=== PATIENT | male | born 1940 | race Caucasian/White ===

== ENCOUNTER → 2016-11-14 | Outpatient (CLI) | payer MEDICARE, BC | LOC: RAD 10:15 | PROVIDERS: ATTEND Internal Medicine Hematology & Oncology | DX: C16.0 Malignant neoplasm of cardia (principal); C79.89 Secondary malignant neoplasm of other specified sites; K76.9 Liver disease, unspecified; R91.8 Other nonspecific abnormal finding of lung field; K44.9 Diaphragmatic hernia without obstruction or gangrene; N42.9 Disorder of prostate, unspecified ==

== ENCOUNTER 2016-11-22 14:58 | Day surgery (SDC) | payer MEDICARE ==
[~2016-11-22] VITALS: Ht 167.6 cm; Wt 55.3 kg
[2016-11-22 15:05] VITALS: BP 141/87
[2016-11-22] MEDS ORDERED: ceFAZolin INJECTION 1,000 MG in NS (IVPB) 50 ML IV ONE (15:05)
--- OUTSIDE RECORDS SUMMARY | 2016-11-22 15:10 | XMS REPORT | Clinical Summary ---
Author Author Admin, QIE Organization [employer] Address Unknown Phone Unavailable Allergies, Adverse Reactions, Alerts Allergy Name Reaction Description Start Date Severity Status Provider MACROBID Rash, itching Critical Active Dona Becker MORPHINE Critical Active Zoran Arzola MD STATINS Critical Active Jam Arnold DO Conditions or Problems Problem Name Problem Code Onset Date Status Entry Date Provider Comment Standard Description Annotate NAUSEA AND VOMITING 787.01 Resolved Capo Poe MD Nausea with vomiting Depression 311 Active Capo Poe MD Depressive disorder, not elsewhere classified Hyperlipidemia 272.4 Active Capo Poe MD Other and unspecified hyperlipidemia CALCULUS OF KIDNEY 592.0 Resolved Capo Poe MD Calculus of kidney CALCULUS OF KIDNEY 592.0 Resolved Capo Poe MD Calculus of kidney URETERAL CALCULUS 592.1 Resolved Capo Poe MD Calculus of ureter FLANK PAIN 789.09 Resolved Capo Poe MD Abdominal pain, other specified site; multiple sites PROSTATE CA 185 Inactive Zoran Arzola MD Malignant neoplasm of prostate Prostate cancer, hx of V10.46 Active Capo Poe MD Personal history of malignant neoplasm of prostate PROSTATE CA 185 Resolved Capo Poe MD Malignant neoplasm of prostate RENAL CALCULUS 592.9 Resolved Capo Poe MD Urinary calculus, unspecified FLANK PAIN, RIGHT 789.09 Resolved Capo Poe MD Abdominal pain, other specified site; multiple sites FLANK PAIN, RIGHT 789.09 Resolved Capo Poe MD Abdominal pain, other specified site; multiple sites HYPERTENSION 401.1 Inactive Capo Poe MD Benign essential hypertension Hypertension 401.9 Active Capo Poe MD Unspecified essential hypertension HEALTH SCREENING V70.0 Resolved Faisal Nagy MD Routine general medical examination at a health care facility Health screening V70.0 Active Capo Poe MD Routine general medical examination at a health care facility SCIATICA 724.3 Resolved Capo Poe MD Sciatica BRONCHITIS, ACUTE 466.0 Resolved Capo Poe MD Acute bronchitis URINARY FREQUENCY 788.41 Resolved Capo Poe MD Urinary frequency COUGH 786.2 Resolved Capo Poe MD Cough ELEVATED P S A 790.93 Resolved Capo Poe MD Elevated prostate specific antigen [PSA] URINARY TRACT INFECTION 599.0 Resolved Capo Poe MD Urinary tract infection, site not specified Glucose intolerance 271.3 Active Capo Poe MD Intestinal disaccharidase deficiencies and disaccharide malabsorption DYSPNEA 786.09 Correction Capo Poe MD Other dyspnea and respiratory abnormality C O P D 496 Inactive Capo Poe MD Chronic airway obstruction, not elsewhere classified Chronic obstructive pulmonary disease 496 Active Capo Poe MD Chronic airway obstruction, not elsewhere classified ANEMIA 285.9 Inactive Felisa TEIXEIRA Anemia, unspecified Anemia, iron deficiency 280.9 Resolved Capo Poe MD Iron deficiency anemia, unspecified U T I-RECURRENT 599.0 Resolved Capo Poe MD Urinary tract infection, site not specified BLADDER CALCULUS 594.1 Resolved Capo Poe MD Other calculus in bladder HEMATURIA 599.70 Resolved Capo Poe MD Hematuria, unspecified BLADDER CALCULUS 594.1 Resolved Capo Poe MD Other calculus in bladder HEMATURIA 599.70 Resolved Capo Poe MD Hematuria, unspecified U T I-RECURRENT 599.0 Resolved Capo Poe MD Urinary tract infection, site not specified RASH AND OTHER NONSPECIFIC SKIN ERUPTION 782.1 Resolved Capo Poe MD Rash and other nonspecific skin eruption Near syncope 780.2 Resolved Capo Poe MD Syncope and collapse Carotid artery stenosis 433.10 Active Capo Poe MD Occlusion and stenosis of carotid artery, without mention of cerebral infarction Skin lesion 709.9 Resolved Capo Poe MD Unspecified disorder of skin and subcutaneous tissue Ecchymoses, spontaneous 782.7 Resolved Capo Poe MD Spontaneous ecchymoses Lumbar radiculopathy 724.4 Resolved Capo Poe MD Thoracic or lumbosacral neuritis or radiculitis, unspecified 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 Resolved Capo Poe MD Chondritis of pinna UTI 599.0 Resolved Capo Poe MD Urinary tract infection, site not specified Hematuria 599.70 Resolved Capo Poe MD Hematuria, unspecified Sciatica, right 724.3 Resolved Capo Poe MD Sciatica Renal Calculus 592.9 Resolved Capo Poe MD Urinary calculus, unspecified Constipation 564.00 Active Capo Poe MD Constipation, unspecified Smoker/tobacco use disorder-smoking cessation discussed 305.1 Active Capo Poe MD Tobacco use disorder Urethral calculus 594.2 Resolved Capo Poe MD Calculus in urethra Chest pain 786.50 Resolved Capo Poe MD Unspecified chest pain Prostate cancer screening V76.44 Resolved Capo Poe MD Screening for malignant neoplasms of prostate Pruritic rash 698.8 Resolved Capo Poe MD Other specified pruritic conditions Elevated creatinine 790.4 Resolved Capo Poe MD Nonspecific elevation of levels of transaminase or lactic acid dehydrogenase [LDH] Nephrolithiasis 592.0 Active Capo Poe MD Calculus of kidney Near syncope 780.2 Active Capo Poe MD Syncope and collapse Iron deficiency 280.9 Active Jasmin EDWARDA Iron deficiency anemia, unspecified COPD, acute exacerbation 491.21 Active Capo Poe MD Obstructive chronic bronchitis with (acute) exacerbation Dysphagia 787.20 Active Leanna Baker [employer]SEMBL[employer] Dysphagia, unspecified Mycoplasma infection 041.81 Active Simin Sweet LPN Mycoplasma infection in conditions classified elsewhere and of unspecified site NAUSEA AND VOMITING ICD-787.01 Inactive Capo Poe MD CALCULUS OF KIDNEY ICD-592.0 Inactive Capo Poe MD URETERAL CALCULUS ICD-592.1 Inactive Capo Poe MD FLANK PAIN ICD-789.09 Inactive Capo Poe MD 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 Inactive Capo Poe MD RENAL CALCULUS ICD-592.9 Inactive Capo Poe MD FLANK PAIN, RIGHT ICD-789.09 Inactive Capo Poe MD SCIATICA ICD-724.3 Inactive Capo Poe MD 2011 BRONCHITIS, ACUTE ICD-466.0 Inactive Capo Poe MD URINARY FREQUENCY ICD-788.41 Inactive Capo Poe MD COUGH ICD-786.2 Inactive Capo Poe MD ELEVATED P S A ICD-790.93 Inactive Capo Poe MD URINARY TRACT INFECTION ICD-599.0 Inactive Capo Poe MD Anemia, iron deficiency ICD-280.9 Inactive Capo Poe MD U T I-RECURRENT ICD-599.0 Inactive Capo Poe MD BLADDER CALCULUS ICD-594.1 Inactive Capo Poe MD HEMATURIA ICD-599.70 Inactive Capo Poe MD BLADDER CALCULUS ICD-594.1 Inactive Capo Poe MD HEMATURIA ICD-599.70 Inactive Capo Poe MD U T I-RECURRENT ICD-599.0 Inactive Capo Poe MD RASH AND OTHER NONSPECIFIC SKIN ERUPTION ICD-782.1 Inactive Capo Poe MD Near syncope ICD-780.2 Inactive Capo Poe MD Skin lesion ICD-709.9 Inactive Capo Poe MD Ecchymoses, spontaneous ICD-782.7 Inactive Capo Poe MD Lumbar radiculopathy ICD-724.4 Inactive 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 Inactive Capo Poe MD UTI ICD-599.0 Inactive Capo Poe MD Hematuria ICD-599.70 Clyde Poe MD Sciatica, right ICD-724.3 Clyde Poe MD Renal Calculus ICD-592.9 Clyde Poe MD Urethral calculus ICD-594.2 Clyde Poe MD Chest pain ICD-786.50 Clyde Poe MD Prostate cancer screening ICD-V76.44 Clyde Poe MD Pruritic rash ICD-698.8 Clyde Poe MD Elevated creatinine ICD-790.4 Clyde Poe MD Medication List Medication Instructions Start Date Stop Date Generic Name NDC Status Provider Patient Instruction LEVAQUIN 500 MG TABS 1 daily for infection LEVOFLOXACIN 11332249407 Active Leanna Baker APRN Active AZITHROMYCIN 250 MG ORAL TABS 2 po qd x 1, then 1 po qd x 4 AZITHROMYCIN 90287095898 Active Capo Poe MD Active PREDNISONE 20 MG ORAL TABS 2 po qd x 5 days PREDNISONE 34808204434 No Longer Active Capo Poe MD Active CARAFATE 1 GM ORAL TABS 1 tid SUCRALFATE 31580035038 Active Capo Poe MD Active RANITIDINE HCL 150 MG ORAL TABS 1 bid RANITIDINE HCL 83365529237 Active Capo Poe MD Active MULTIVITAMINS CAPS Take one by mouth daily MULTIPLE VITAMIN 63322815431 No Longer Active Capo Poe MD Active LISINOPRIL 10 MG TABS 1 tablet by mouth daily LISINOPRIL 41903572156 No Longer Active Capo Poe MD Active EQL IRON SUPPLEMENT THERAPY 325 MG ORAL TABS 1 tab po twice daily FERROUS SULFATE 50323772507 Active Jasmin Arboledalas RMA Active D ORAL TABS 2000 iu weekly D ORAL TABS Active Capo Poe MD Active CITALOPRAM HYDROBROMIDE 20 MG TABS 1 tablet by mouth daily CITALOPRAM HYDROBROMIDE 30205616289 Active Capo Poe MD Active CLARITIN 5 MG ORAL CHEW 1 tab po q day LORATADINE 79711400941 Active Felisa Daphney RMA Active VIIBRYD STARTER PACK 10 & 20 MG ORAL KIT 1 po qd as directed 2015 VILAZODONE HCL 99874512367 No Longer Active Felisa Daphney RMA Active HYDROXYZINE HCL 25 MG TAB 1 po qHS PRN Insomnia HYDROXYZINE HCL 19948470180 Active Capo Poe MD Active LORTAB 7.5-325 MG ORAL TABS 1 po q 6 hr prn pain HYDROCODONE- ACETAMINOPHEN 05793264797 No Longer Active Capo Poe MD Active FLOMAX 0.4 MG CAPS Take one by mouth daily TAMSULOSIN HCL 20673376548 No Longer Active Capo Poe MD Active TRIAMCINOLONE ACETONIDE 0.1 % CREA Apply to affected areas TID for up to 2 weeks TRIAMCINOLONE ACETONIDE 99698691362 Active Capo Poe MD Active NICOTINE 14 MG/24HR TRANS PT24 Apply/Change q 24hr NICOTINE 67850481371 No Longer Active Capo Poe MD Active TRAMADOL HCL 50 MG TABS 1-2 tablets every 6 hours as needed for pain TRAMADOL HCL 34919954896 No Longer Active Capo Poe MD Active SERTRALINE HCL 100 MG ORAL TABS take 1 tab daily SERTRALINE HCL 26453539607 No Longer Active Capo Poe MD Active LISINOPRIL-HYDROCHLOROTHIAZIDE 10-12.5 MG TABS 0.5 tab by mouth daily LISINOPRIL-HYDROCHLOROTHIAZIDE 57522028288 No Longer Active Capo Poe MD Active OMEPRAZOLE 20 MG CPDR 1 tablet by mouth daily OMEPRAZOLE 96072798119 Active Capo Poe MD Active WELLBUTRIN SR 150 MG ORAL [id number] 1 po BID BUPROPION HCL 79935842173 No Longer Active Capo Poe MD Active MIRALAX PACK 1 po qd PRN Constipation POLYETHYLENE GLYCOL 3350 83573228459 Active Capo Poe MD Active DULERA 100-5 MCG/ACT AERO 2 puffs BID MOMETASONE FURO- FORMOTEROL FUM 25185609245 Active Capo Poe MD Active ZOLOFT 100 MG TABS 1 po daily SERTRALINE HCL 42106527054 No Longer Active Zoran Arzola MD Active FERROUS SULFATE 325 (65 FE) MG TABS 1 tablet by mouth daily FERROUS SULFATE 77752239592 No Longer Active Capo Poe MD Active HYDROCODONE-ACETAMINOPHEN 7.5-300 MG TABS take one every six hours HYDROCODONE-ACETAMINOPHEN 83476592785 No Longer Active Capo Poe MD Active TRIAMCINOLONE ACETONIDE 0.1 % OINT Apply to affected areas TID for up to 2 weeks TRIAMCINOLONE ACETONIDE 51529056358 No Longer Active Joe Vargas RN Active FERROUS SULFATE 325 (65 FE) MG TABS Take one by mouth daily FERROUS SULFATE 15974268318 No Longer Active Capo Poe MD Active TRIAMCINOLONE ACETONIDE 0.1 % OINT Apply to affected areas TID for up to 2 weeks TRIAMCINOLONE ACETONIDE 82787113963 No Longer Active Capo Poe MD Active ADULT ASPIRIN LOW STRENGTH 81 MG TBDP qd ASPIRIN 51627356159 Active Zoran Arzola MD Active ALEVE 220 MG TAB prn NAPROXEN SODIUM 16914467092 Active Capo Poe MD Active MACROBID 100 MG CAP 1 cap by mouth twice daily NITROFURANTOIN MONOHYD MACRO 57495599502 No Longer Active Dona Becker Active AZITHROMYCIN 250 MG TABS 2 po qd x 1 day, then 1 po qd x 4 days AZITHROMYCIN 54244218233 No Longer Active Capo Poe MD Active FISH OIL 500 MG CAPS by mouth twice a day OMEGA-3 FATTY ACIDS 64711432133 Active Capo Poe MD Active FLAXSEED OIL 1000 MG CAPS Take two by mouth daily FLAXSEED (LINSEED) 42421276031 Active Zoran Arzola MD Active RED YEAST RICE 600 MG CAPS Take two by mouth daily RED YEAST RICE EXTRACT 51477623649 Active Zoran Arzola MD Active ICAPS MV TABS 2 po daily MULTIPLE VITAMINS-MINERALS 21760272634 Active Jam Arnold DO Active MACROBID 100 MG CAP 1 cap by mouth twice daily MACROBID 100 MG CAP 4953728 NITROFURANTOIN MONOHYD MACRO Inactive FERROUS SULFATE 325 (65 FE) MG TABS Take one by mouth daily FERROUS SULFATE 325 (65 FE) MG TABS 673327 FERROUS SULFATE Inactive HYDROCODONE-ACETAMINOPHEN 7.5-300 MG TABS take one every six hours HYDROCODONE-ACETAMINOPHEN 7.5-300 MG TABS 999710 HYDROCODONE- ACETAMINOPHEN Inactive FERROUS SULFATE 325 (65 FE) MG TABS 1 tablet by mouth daily FERROUS SULFATE 325 (65 FE) MG TABS 338655 FERROUS SULFATE Inactive ZOLOFT 100 MG TABS 1 po daily ZOLOFT 100 MG TABS 953274 SERTRALINE HCL Inactive SERTRALINE HCL 100 MG ORAL TABS take 1 tab daily SERTRALINE HCL 100 MG ORAL TABS 978247 SERTRALINE HCL Inactive TRAMADOL HCL 50 MG TABS 1-2 tablets every 6 hours as needed for pain TRAMADOL HCL 50 MG TABS 903528 TRAMADOL HCL Inactive NICOTINE 14 MG/24HR TRANS PT24 Apply/Change q 24hr NICOTINE 14 MG/24HR TRANS PT24 129945 NICOTINE Inactive FLOMAX 0.4 MG CAPS Take one by mouth daily FLOMAX 0.4 MG CAPS 296459 TAMSULOSIN HCL Inactive LORTAB 7.5-325 MG ORAL TABS 1 po q 6 hr prn pain LORTAB 7.5- 325 MG ORAL TABS 008086 HYDROCODONE-ACETAMINOPHEN Inactive VIIBRYD STARTER PACK 10 & 20 MG ORAL KIT 1 po qd as directed 2015 VIIBRYD STARTER PACK 10 & 20 MG ORAL KIT VILAZODONE HCL Inactive LISINOPRIL 10 MG TABS 1 tablet by mouth daily LISINOPRIL 10 MG TABS 360448 LISINOPRIL Inactive MULTIVITAMINS CAPS Take one by mouth daily MULTIVITAMINS CAPS MULTIPLE VITAMIN Inactive AZITHROMYCIN 250 MG TABS 2 po qd x 1 day, then 1 po qd x 4 days AZITHROMYCIN 250 MG TABS 3789040 AZITHROMYCIN Inactive TRIAMCINOLONE ACETONIDE 0.1 % OINT Apply to affected areas TID for up to 2 weeks TRIAMCINOLONE ACETONIDE 0.1 % OINT 1082960 TRIAMCINOLONE ACETONIDE Inactive TRIAMCINOLONE ACETONIDE 0.1 % OINT Apply to affected areas TID for up to 2 weeks TRIAMCINOLONE ACETONIDE 0.1 % OINT 4005567 TRIAMCINOLONE ACETONIDE Inactive PREDNISONE 20 MG ORAL TABS 2 po qd x 5 days PREDNISONE 20 MG ORAL TABS 737696 PREDNISONE Inactive Advance Directives Directive Description Start Date PERMISSION TO SHARE DISCUSSED WITH PATIENT -- NO DECISION MADE Immunizations Vaccine Administration Date Value Standard Description pneumococcal immunization administered Pneumovax 23 [CVX33] pneumococcal polysaccharide vaccine, 23 valent Vital Signs Date Name Value Unit Range Description blood pressure, diastolic 78 mm[Hg] BP [place] blood pressure, systolic 143 mm[Hg] BP sys pulse rate E&M 85 /min Heart rate temperature E&M 99.2 [degF] Body temperature weight E&M 139 [lb_av] Weight Measured blood pressure, diastolic 76 mm[Hg] BP [place] blood pressure, systolic 140 mm[Hg] BP sys height E&M 65 [in_us] Bdy height pulse rate E&M 83 /min Heart rate temperature E&M 97.8 [degF] Body temperature weight E&M 141.1 [lb_av] Weight Measured blood pressure, diastolic 85 mm[Hg] BP [place] blood pressure, systolic 152 mm[Hg] BP sys pulse rate E&M 64 /min Heart rate temperature E&M 97.7 [degF] Body temperature weight E&M 146.1 [lb_av] Weight Measured blood pressure, diastolic 54 mm[Hg] BP [place] blood pressure, systolic 134 mm[Hg] BP sys pulse rate E&M 71 /min Heart rate temperature E&M 97.4 [degF] Body temperature weight E&M 144.5 [lb_av] Weight Measured Diagnostic Results Date Name Value Unit Range Description Chart Maintenance: Hemoccult added to flow sheet - Chemistry occult blood, stool (E&M) Positive Lab Report: CBC W/DIFF, Comp. Metabolic Panel - Chemistry sodium, serum 137 mmol/L 591-331 2911/07/26 carbon dioxide, venous blood 27.3 mmol/L 21.0-32.0 potassium, serum 4.6 mmol/L 3.5-5.2 chloride, serum 101 mmol/L 98-107 blood glucose 95 mg/dL 65-110 urea nitrogen, blood 19 mg/dL 7-18 creatinine, serum 1.31 mg/dL 0.60-1.30 alanine aminotransferase (SGPT), serum 20 U/L 12-78 aspartate aminotransferase (SGOT), serum 20 U/L 15-37 calcium, serum 8.8 mg/dL 8.5-10.1 bilirubin, serum, total 0.70 mg/dL 0.00-1.00 Lab Report: CBC W/DIFF, Comp. Metabolic Panel - Hematology leukocyte count, blood 10.7 10^3/MM^3 10*3/mm3 4.6-10.2 neutrophils as percent of blood leukocytes 82.6 % 42.2-75.2 monocytes as percent of blood leukocytes 7.3 % 1.7-9.3 lymphocytes as percent of blood leukocytes 8.1 % 20.5-51.1 erythrocyte (RBC) count 4.64 10^6/MM^3 10*6/mm3 4.50-6.50 hemoglobin, blood 13.8 g/dL 14.0-18.0 hematocrit, blood 41.8 % 40.0-54.0 mean corpuscular volume, RBC 90 fL 80-97 mean corpuscular hemoglobin, RBC 29.7 pg 27.0-31.2 mean corpuscular hemoglobin concentration, RBC 32.9 G/DL % 31.8- 35.4 red blood cell distribution width 13.5 % 11.6-14.8 platelet count 250 10^3/MM^3 10*3/mm3 142-424 Lab Report: CBC W/DIFF, Comp. Metabolic Panel, Thyroid Stimulating Hormo ... - Chemistry sodium, serum 141 mmol/L 484-864 6738/01/27 carbon dioxide, venous blood 29.7 mmol/L 21.0-32.0 potassium, serum 4.2 mmol/L 3.5-5.2 chloride, serum 105 mmol/L 98-107 blood glucose 83 mg/dL 65-110 urea nitrogen, blood 17 mg/dL 7-18 creatinine, serum 1.39 mg/dL 0.55-1.30 alanine aminotransferase (SGPT), serum 19 U/L 12-78 aspartate aminotransferase (SGOT), serum 21 U/L 15-37 calcium, serum 8.2 mg/dL 8.5-10.1 bilirubin, serum, total 0.40 mg/dL 0.00-1.00 TSH 0.93 m[iU]/mL 0.36-3.74 prostate specific antigen 0.85 ng/mL 0.00-4.00 Lab Report: CBC W/DIFF, Comp. Metabolic Panel, Thyroid Stimulating Hormo ... - Hematology leukocyte count, blood 6.8 10^3/MM^3 10*3/mm3 4.0-10.0 neutrophils as percent of blood leukocytes 70.9 % 42.2-75.2 monocytes as percent of blood leukocytes 7.6 % 1.7-9.3 lymphocytes as percent of blood leukocytes 18.9 % 20.5-51.1 erythrocyte (RBC) count 4.28 10^6/MM^3 10*6/mm3 4.50-6.50 hemoglobin, blood 10.8 g/dL 13.0-17.0 hematocrit, blood 33.9 % 40.0-54.0 mean corpuscular volume, RBC 79 fL 80-100 mean corpuscular hemoglobin, RBC 25.3 pg 27.0-32.0 mean corpuscular hemoglobin concentration, RBC 31.9 G/DL % 32.0- 36.0 red blood cell distribution width 14.6 % 11.0-16.0 platelet count 286 10^3/MM^3 10*3/mm3 150-500 Lab Report: CBC-QUEST, COMPREHENSIVE METABOLIC PANEL - Hematology leukocyte count, blood 7.3 THOUSAND/UL 10*3/mm3 3.8-10.8 erythrocyte (RBC) count 4.69 MILLION/UL 10*6/mm3 4.20-5.80 hemoglobin, blood 12.6 g/dL 13.2-17.1 hematocrit, blood 39.0 % 38.5-50.0 mean corpuscular volume, RBC 83.2 fL 80.0-100.0 mean corpuscular hemoglobin, RBC 26.9 pg 27.0-33.0 mean corpuscular hemoglobin concentration, RBC 32.3 G/DL % 32.0- 36.0 red blood cell distribution width 22.9 % 11.0-15.0 platelet count 214 THOUSAND/UL 10*3/mm3 979-880 2525/03/31 mean platelet volume 8.4 fL 7.5-12.5 Encounters Code Encounter Date Provider Facility CPT-70457 Level 3 Est. Patient 11:31:49 CDT Leanna Baker APRN [facility] CPT-49003 Level 3 Est. Patient 09:44:06 CDT Capo Poe MD [facility] CPT-76721 Level 4 Est. Patient 09:26:11 NURSERY HELPER Capo Poe MD [facility] CPT-93914 Level 4 Est. Patient 08:53:08 CDT Capo Poe MD [facility] CPT-11853 Level 4 Est. Patient 10:22:57 CDT Capo Poe MD [facility] CPT-36306 Level 4 Est. Patient 13:44:30 CDT Capo Poe MD [facility] CPT-72059 Level 3 Est. Patient 14:59:32 NURSERY HELPER Capo Poe MD [facility] CPT-72478 Level 4 Est. Patient 10:46:15 NURSERY HELPER Capo Poe MD [facility] CPT-24146 Level 3 Est. Patient 11:00:53 CDT Capo Poe MD [facility] CPT-76424 Level 3 Est. Patient 09:39:35 CDT Capo Poe MD [facility] CPT-92085 Level 3 Est. Patient 09:27:01 CDT Capo Poe MD [facility] CPT-59562 Level 3 Est. Patient 18:37:08 CDT Zoran Arzola MD [facility] CPT-58046 Level 3 Est. Patient 15:00:28 CDT Capo Poe MD [facility] CPT-43750 Level 3 Est. Patient 08:20:19 CDT Zoran Arzola MD [facility] CPT-38337 Level 3 Est. Patient 09:22:21 CDT Capo Poe MD [facility] CPT-85045 Level 4 Est. Patient 10:21:30 NURSERY HELPER Capo Poe MD [facility] CPT-77841 Level 3 Est. Patient 17:08:51 NURSERY HELPER Zoran Arzola MD [facility] CPT-30933 Level 4 Est. Patient 09:44:42 CDT Capo Poe MD [facility] CPT-47180 Level 4 Est. Patient 10:39:29 CDT Capo Poe MD [facility] CPT-60885 Level 3 Est. Patient 17:45:23 CDT Zoran Arzola MD [facility] CPT-26266 Level 4 Est. Patient 08:50:44 CDT Capo Poe MD [facility] CPT-98800 Level 3 Est. Patient 10:39:51 NURSERY HELPER Capo Poe MD [facility] CPT-31907 Level 4 Est. Patient 09:44:24 NURSERY HELPER Capo Poe MD [facility] CPT-37356 Level 3 Est. Patient 14:48:42 NURSERY HELPER Zoran Arzola MD [facility] CPT-44870 Level 4 Est. Patient 10:24:02 CDT Capo Poe MD [facility] CPT-36722 Level 3 Est. Patient 15:42:00 CDT Maya WRIGHTP [facility] CPT-38722 Level 4 Est. Patient 13:34:15 CDT Capo Poe MD [facility] CPT-28621 Level 3 Est. Patient 15:32:10 NURSERY HELPER Zoran Arzola MD [facility] CPT-16780 Level 3 New Patient 17:17:19 NURSERY HELPER Zoran Arzola MD [facility] CPT-20374 Level 4 Est. Patient 10:25:01 NURSERY HELPER Capo Poe MD [facility] CPT-07119 Level 3 Est. Patient 10:10:42 CDT Zoran Arzola MD [facility] CPT-08617 Level 3 Est. Patient 22:30:02 CDT Zoran Arzola MD [facility] CPT-44280 Level 4 Est. Patient 09:54:20 CDT Capo Poe MD [facility] CPT-90292 Level 3 Est. Patient 10:48:30 CDT Capo Poe MD [facility] CPT-17834 Level 3 Est. Patient 11:24:45 CDT Capo Poe MD [facility] CPT-71419 Level 3 Est. Patient 15:23:48 NURSERY HELPER Capo Poe MD [facility] CPT-69453 Level 3 Est. Patient 15:10:03 NURSERY HELPER Capo Poe MD [facility] CPT-76322 Level 3 Est. Patient 16:18:40 CDT Zoran Arzola MD [facility] Procedures Code Procedure Name Date Entry Date Standard Description CPT-82243 Chest 2V Frontal and Lat - XRAY USE ONLY 11:51:24 CDT CPT-49518 Venipuncture Draw Fee 11:31:49 CDT CPT-93032 Hemoccult IFOBT - LAB USE ONLY 14:11:43 NURSERY HELPER CPT-31107 TPSA - LAB USE ONLY 10:37:52 NURSERY HELPER CPT-34920 TSH - LAB USE ONLY 10:37:51 NURSERY HELPER CPT-34062 CMP - LAB USE ONLY 10:37:51 NURSERY HELPER CPT-98650 CBC with Diff - LAB USE ONLY 10:37:51 NURSERY HELPER CPT-46528 Venipuncture Draw Fee 10:37:51 NURSERY HELPER CPT-000 Give Pneumovax 10:39:30 CDT CPT-25828 Venipuncture Draw Fee 09:32:34 CDT CPT-G0438 Initial Annual Wellness Exam 10:24:35 CDT CPT-06437 Venipuncture Draw Fee 09:46:29 CDT CPT-67254 Venipuncture Draw Fee 14:30:06 CDT CPT-75228 Venipuncture Draw Fee 10:58:22 CDT CPT-54722 Abd single AP View 08:32:00 CDT CPT-34267 Postop F/U Visit 21:13:08 CDT CPT-35583 Abd single AP View 15:50:24 CDT CPT-28550 Cystoscopy W/rem FB 15:21:28 CDT CPT-13997 Abd single AP View 14:06:45 CDT CPT-10904 Postop F/U Visit 09:48:32 CDT CPT-80520 Abd single AP View 13:58:26 CDT CPT-19753 Hip comp min 2V 10:27:18 NURSERY HELPER CPT-38384 Urine Dip (Floor Use Only) 13:41:01 NURSERY HELPER CPT-47863 Postop F/U Visit 11:17:48 CDT CPT-LR Lesion Removal 11:50:22 CDT CPT-OV Office Visit 11:50:22 CDT CPT-23886 Pneumovax 23 10:55:48 CDT CPT-98551 Administration single or combination vaccine inc oral 10 :55:48 CDT CPT-Cryo Cryotherapy 11:18:11 CDT CPT-OV Office Visit 11:18:11 CDT CPT-95295 LS spine AP and Lat 09:05:22 CDT CPT-75100 Bladder Scan 15:42:00 CDT CPT-90184 Cystoscopy 15:42:00 CDT CPT-OV Office Visit 16:37:19 NURSERY HELPER CPT-13736 Bladder Scan 15:32:10 NURSERY HELPER CPT-69187 Cystoscopy 15:32:10 NURSERY HELPER CPT-50406 Abd single AP View 14:05:59 NURSERY HELPER CPT-33155 Pill cam small bowel 09:48:39 NURSERY HELPER CPT-14534 Urine Dip (Floor Use Only) 17:17:19 NURSERY HELPER CPT-20926 Bladder Scan 17:17:19 NURSERY HELPER CPT-OV Office Visit 11:50:26 NURSERY HELPER CPT-31725 Bladder Scan 10:10:42 CDT CPT-67303 Venipuncture Draw Fee 09:14:04 CDT CPT-69443 Chest 2V Frontal and Lat 10:10:49 CDT CPT-11330 LS spine comp w obliq 11:50:11 CDT CPT-32647 Venipuncture Draw Fee 08:52:57 NURSERY HELPER CPT-80912 Cystoscopy W/rem FB 18:37:28 CDT CPT-58333 Abd single AP View 16:18:40 CDT CPT-63318 Abd compl w upright 17:30:59 CDT
--- OUTSIDE RECORDS SUMMARY | 2016-11-22 15:11 | XMS REPORT | Clinical Summary ---
Author Author Admin, MARGE Organization [facility] Address Unknown Phone Unavailable Allergies, Adverse Reactions, [...] Resolved Capo Poe MD Nausea with vomiting DEPRESSION 311 Active Zoran Arzola MD Depressive disorder, not elsewhere classified HYPERLIPIDEMIA 272.4 Active Zoran Arzola MD Other and unspecified hyperlipidemia CALCULUS OF KIDNEY 592.0 Resolved Capo Poe MD Calculus of kidney CALCULUS OF KIDNEY 592.0 Resolved Capo Poe MD Calculus of kidney URETERAL CALCULUS 592.1 Resolved Capo Poe MD Calculus of ureter FLANK PAIN 789.09 Resolved Capo Poe MD Abdominal pain, other specified site; multiple sites PROSTATE CA 185 Active Zoran Arzola MD Malignant neoplasm of prostate PROSTATE CA 185 Resolved Capo Poe MD Malignant neoplasm of prostate RENAL CALCULUS 592.9 Resolved Capo Poe MD Urinary calculus, unspecified FLANK PAIN, RIGHT 789.09 Resolved Capo Poe MD Abdominal pain, other specified site; multiple sites HYPERTENSION 401.1 Active Capo Poe MD Benign essential hypertension HEALTH SCREENING V70.0 Resolved Faisal Nagy MD Routine general medical examination at a health care facility HEALTH SCREENING V70.0 Active Capo Poe MD Routine general [...] MD Urinary tract infection, site not specified 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 DYSPNEA 786.09 Correction Capo Poe MD Other dyspnea and respiratory abnormality C O P D 496 Active Capo Poe MD Chronic airway obstruction, not elsewhere classified ANEMIA 285.9 Active Felisa TEIXEIRA Anemia, unspecified U T I-RECURRENT 599.0 Resolved Capo [...] tract infection, site not specified Hematuria 599.70 Active Zoran Arzola MD Hematuria, unspecified Sciatica, right 724.3 Active Capo Poe MD Sciatica Renal Calculus 592.9 Active Zoran Arzola MD Urinary calculus, unspecified CALCULUS OF KIDNEY ICD-592.0 Inactive Capo Poe MD URETERAL CALCULUS ICD-592.1 Inactive Capo Poe MD FLANK PAIN ICD-789.09 Inactive Capo Poe MD 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 Inactive Capo Poe MD RENAL CALCULUS ICD-592.9 Inactive Capo Poe MD FLANK PAIN, RIGHT ICD-789.09 Inactive Capo Poe MD SCIATICA ICD-724.3 Clyde Poe MD 2011 NAUSEA AND VOMITING ICD-787.01 Inactive Capo Poe MD COUGH ICD-786.2 Inactive Capo Poe MD ELEVATED P S A ICD-790.93 Inactive Capo Poe MD URINARY TRACT INFECTION ICD-599.0 Inactive Capo Poe MD U T I-RECURRENT ICD-599.0 Inactive Capo Poe MD BLADDER CALCULUS ICD-594.1 Inactive Capo Poe MD HEMATURIA ICD-599.70 Inactive Capo Poe MD BRONCHITIS, ACUTE ICD-466.0 Inactive Capo Poe MD URINARY FREQUENCY ICD-788.41 Inactive Capo Poe MD U T I-RECURRENT ICD-599.0 Clyde Poe MD RASH AND OTHER NONSPECIFIC SKIN ERUPTION ICD-782.1 Inactive Capo Poe MD BLADDER CALCULUS ICD-594.1 Clyde Poe MD Skin lesion ICD-709.9 Inactive Capo Poe MD Ecchymoses, spontaneous ICD-782.7 Clyde Poe MD Lumbar radiculopathy ICD-724.4 Inactive 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 Clyde Poe MD UTI ICD-599.0 Inactive Capo Poe MD HEMATURIA ICD-599.70 Inactive Capo Poe MD Near syncope ICD-780.2 Inactive Capo Poe MD Medication List Medication Instructions Start Date Stop Date Generic Name NDC Status Provider Patient Instruction DULERA 100-5 MCG/ACT AERO 2 puffs BID MOMETASONE FURO- FORMOTEROL FUM [id number] Active Capo Poe MD Active SERTRALINE HCL 100 MG ORAL TABS take 1 tab daily SERTRALINE HCL 81150404794 Active Capo Poe MD Active ZOLOFT 100 MG TABS 1 po daily SERTRALINE HCL 93449120208 No Longer Active Zoran Arzola MD Active FERROUS SULFATE 325 (65 FE) MG TABS 1 tablet by mouth daily FERROUS SULFATE 33744743007 No Longer Active Capo Poe MD Active TRAMADOL HCL 50 MG TABS 1-2 tablets every 6 hours as needed for pain TRAMADOL HCL 39689869474 Active Capo Poe MD Active HYDROCODONE-ACETAMINOPHEN 7.5-300 MG TABS take one every six hours HYDROCODONE-ACETAMINOPHEN 22591257848 No Longer Active Capo Poe MD Active TRIAMCINOLONE ACETONIDE 0.1 % OINT Apply to affected areas TID for up to 2 weeks TRIAMCINOLONE ACETONIDE 34062731650 No Longer Active Joe Vargas RN Active FERROUS SULFATE 325 (65 FE) MG TABS Take one by mouth daily FERROUS SULFATE 22241769165 No Longer Active Capo Poe MD Active TRIAMCINOLONE ACETONIDE 0.1 % OINT Apply to affected areas TID for up to 2 weeks TRIAMCINOLONE ACETONIDE 37523489873 No Longer Active Capo Poe MD Active ADULT ASPIRIN LOW STRENGTH 81 MG TBDP qd ASPIRIN 56270426768 Active Zoran Arzola MD Active ALEVE 220 MG TAB prn NAPROXEN SODIUM 49983614952 Active Capo Poe MD Active LISINOPRIL-HYDROCHLOROTHIAZIDE 10-12.5 MG TABS 1 tab by mouth daily LISINOPRIL-HYDROCHLOROTHIAZIDE 84263201871 Active Capo Poe MD Active MACROBID 100 MG CAP 1 cap by mouth twice daily NITROFURANTOIN MONOHYD MACRO 96316870092 No Longer Active Dona Becker Active AZITHROMYCIN 250 MG TABS 2 po qd x 1 day, then 1 po qd x 4 days AZITHROMYCIN 21065874779 No Longer Active Capo Poe MD Active FISH OIL 500 MG CAPS by mouth twice a day OMEGA-3 FATTY ACIDS 85091326478 Active Capo Poe MD Active FLAXSEED OIL 1000 MG CAPS Take two by mouth daily FLAXSEED (LINSEED) 49880360260 Active Zoran Arzola MD Active RED YEAST RICE 600 MG CAPS Take two by mouth daily RED YEAST RICE EXTRACT 86073129169 Active Zoran Arzola MD Active MULTIVITAMINS CAPS Take one by mouth daily MULTIPLE VITAMIN 53128838854 Active Zoran Arzola MD Active ICAPS MV TABS 2 po daily MULTIPLE VITAMINS-MINERALS 31562732949 Active Jam Arnold DO Active MACROBID 100 MG CAP 1 cap by mouth twice daily MACROBID 100 MG CAP 030065 NITROFURANTOIN MONOHYD MACRO Inactive FERROUS SULFATE 325 (65 FE) MG TABS Take one by mouth daily FERROUS SULFATE 325 (65 FE) MG TABS 918869 FERROUS SULFATE Inactive HYDROCODONE-ACETAMINOPHEN 7.5-300 MG TABS take one every six hours HYDROCODONE-ACETAMINOPHEN 7.5-300 MG TABS 783811 HYDROCODONE- ACETAMINOPHEN Inactive FERROUS SULFATE 325 (65 FE) MG TABS 1 tablet by mouth daily FERROUS SULFATE 325 (65 FE) MG TABS 558023 FERROUS SULFATE Inactive ZOLOFT 100 MG TABS 1 po daily ZOLOFT 100 MG TABS 037066 SERTRALINE HCL Inactive AZITHROMYCIN 250 MG TABS 2 po qd x 1 day, then 1 po qd x 4 days AZITHROMYCIN 250 MG TABS 1219178 AZITHROMYCIN Inactive TRIAMCINOLONE ACETONIDE 0.1 % OINT Apply to affected areas TID for up to 2 weeks TRIAMCINOLONE ACETONIDE 0.1 % OINT 0192759 TRIAMCINOLONE ACETONIDE Inactive TRIAMCINOLONE ACETONIDE 0.1 % OINT Apply to affected areas TID for up to 2 weeks TRIAMCINOLONE ACETONIDE 0.1 % OINT 9116507 TRIAMCINOLONE ACETONIDE Inactive Advance Directives Directive Description Start Date PERMISSION TO SHARE Immunizations Vaccine Administration Date Value Standard Description pneumococcal immunization administered Pneumovax 23 [CVX33] pneumococcal polysaccharide vaccine, 23 valent Vital Signs Date Name Value Unit Range Description blood pressure, diastolic - 8462-4 70 mm[Hg] BP [place] blood pressure, systolic - 8480-6 100 mm[Hg] BP sys pulse rate E&M - 8867-4 80 /min Heart rate temperature E&M 98.0 [degF] Body temperature weight E&M - 3141-9 151 [lb_av] Weight Measured blood pressure, diastolic - 8462-4 70 mm[Hg] BP [place] blood pressure, systolic - 8480-6 130 mm[Hg] BP sys pulse rate E&M - 8867-4 60 /min Heart rate temperature E&M 98.0 [degF] Body temperature weight E&M - 3141-9 151 [lb_av] Weight Measured blood pressure, diastolic - 8462-4 64 mm[Hg] BP [place] blood pressure, systolic - 8480-6 104 mm[Hg] BP sys pulse rate E&M - 8867-4 88 /min Heart rate temperature E&M 98.2 [degF] Body temperature weight E&M - 3141-9 151 [lb_av] Weight Measured blood pressure, diastolic - 8462-4 73 mm[Hg] BP [place] blood pressure, systolic - 8480-6 132 mm[Hg] BP sys pulse rate E&M - 8867-4 66 /min Heart rate temperature E&M 97.2 [degF] Body temperature weight E&M - 3141-9 151.7 [lb_av] Weight Measured blood pressure, diastolic - 8462-4 85 mm[Hg] BP [place] blood pressure, systolic - 8480-6 147 mm[Hg] BP sys pulse rate E&M - 8867-4 88 /min Heart rate temperature E&M 96.6 [degF] Body temperature weight E&M - 3141-9 150.2 [lb_av] Weight Measured blood pressure, diastolic - 8462-4 62 mm[Hg] BP [place] blood pressure, systolic - 8480-6 102 mm[Hg] BP sys pulse rate E&M - 8867-4 62 /min Heart rate temperature E&M 98.3 [degF] Body temperature weight E&M - 3141-9 146 [lb_av] Weight Measured blood pressure, diastolic - 8462-4 75 mm[Hg] BP [place] blood pressure, systolic - 8480-6 133 mm[Hg] BP sys pulse rate E&M - 8867-4 83 /min Heart rate temperature E&M 96.6 [degF] Body temperature weight E&M - 3141-9 146 [lb_av] Weight Measured blood pressure, diastolic - 8462-4 65 mm[Hg] BP [place] blood pressure, systolic - 8480-6 105 mm[Hg] BP sys pulse rate E&M - 8867-4 72 /min Heart rate temperature E&M 97.4 [degF] Body temperature weight E&M - 3141-9 140 [lb_av] Weight Measured blood pressure, diastolic - 8462-4 66 mm[Hg] BP [place] blood pressure, systolic - 8480-6 103 mm[Hg] BP sys pulse rate E&M - 8867-4 81 /min Heart rate temperature E&M 97. [degF] Body temperature weight E&M - 3141-9 142 [lb_av] Weight Measured blood pressure, diastolic - 8462-4 73 mm[Hg] BP [place] blood pressure, systolic - 8480-6 115 mm[Hg] BP sys pulse rate E&M - 8867-4 78 /min Heart rate temperature E&M 97.0 [degF] Body temperature weight E&M - 3141-9 146 [lb_av] Weight Measured blood pressure, diastolic - 8462-4 71 mm[Hg] BP [place] blood pressure, systolic - 8480-6 125 mm[Hg] BP sys pulse rate E&M - 8867-4 75 /min Heart rate temperature E&M 97.3 [degF] Body temperature weight E&M - 3141-9 142 [lb_av] Weight Measured blood pressure, diastolic - 8462-4 64 mm[Hg] BP [place] blood pressure, systolic - 8480-6 103 mm[Hg] BP sys pulse rate E&M - 8867-4 75 /min Heart rate temperature E&M 97.3 [degF] Body temperature weight E&M - 3141-9 143 [lb_av] Weight Measured Diagnostic Results Date Name Value Unit Range Description Chart Maintenance: Outside labs entered on flowsheet - Chemistry sodium, serum 137 mmol/L potassium, serum 4.0 mmol/L blood glucose 117 mg/dL creatinine, serum 1.68 mg/dL Chart Maintenance: Outside labs entered on flowsheet - Hematology leukocyte count, blood 9.5 10*3/mm3 hemoglobin, blood 14.5 g/dL platelet count 290 10*3/mm3 Lab Report: CBC W/DIFF - Hematology leukocyte count, blood 8.2 10^3/MM^3 10*3/mm3 4.6-10.2 neutrophils as percent of blood leukocytes 74.8 % 42.2-75.2 monocytes as percent of blood leukocytes 5.8 % 1.7-9.3 lymphocytes as percent of blood leukocytes 16.4 % 20.5-51.1 erythrocyte (RBC) count 4.12 10^6/MM^3 10*6/mm3 4.69-6.13 hemoglobin, blood 13.2 g/dL 13.5-17.5 hematocrit, blood 39.4 % 41.0-53.0 mean corpuscular volume, RBC 96 fL 80-97 mean corpuscular hemoglobin, RBC 32.0 pg 27.0-31.2 mean corpuscular hemoglobin concentration, RBC 33.5 G/DL % 31.8- 35.4 red blood cell distribution width 14.0 % 11.6-14.8 platelet count 234 10^3/MM^3 10*3/mm3 142-424 Lab Report: HGBA1C, CBC - Chemistry hemoglobin A1C, blood, as % of total hemoglobin 5.9 % 4.3-6.0 Lab Report: HGBA1C, CBC - Hematology leukocyte count, blood 8.0 10^3/MM^3 10*3/mm3 4.6-10.2 erythrocyte (RBC) count 4.32 10^6/MM^3 10*6/mm3 4.69-6.13 hemoglobin, blood 14.2 g/dL 13.5-17.5 hematocrit, blood 41.4 % 41.0-53.0 mean corpuscular volume, RBC 96 fL 80-97 mean corpuscular hemoglobin, RBC 32.8 pg 27.0-31.2 mean corpuscular hemoglobin concentration, RBC 34.2 G/DL % 31.8- 35.4 red blood cell distribution width 13.9 % 11.6-14.8 platelet count 158 10^3/MM^3 10*3/mm3 142-424 Lab Report: Lipid Panel, Comp. Metabolic Panel, CBC - Chemistry cholesterol, serum 207 mg/dL 407-010 6021/02/11 triglyceride, serum, fasting 74 mg/dL 30-200 HDL cholesterol, serum 62 mg/dL 32-96 LDL cholesterol, serum 130 mg/dL 0-130 sodium, serum 144 mmol/L 041-902 0437/02/11 potassium, serum 5.0 mmol/L 3.5-5.2 chloride, serum 105 mmol/L 98-107 carbon dioxide, venous blood 30.3 mmol/L 21.0-32.0 blood glucose 86 mg/dL 65-110 urea nitrogen, blood 17 mg/dL 7-18 creatinine, serum 1.20 mg/dL 0.60-1.30 alanine aminotransferase (SGPT), serum 27 U/L 12-78 aspartate aminotransferase (SGOT), serum 27 U/L 15-37 calcium, serum 8.4 mg/dL 8.5-10.1 bilirubin, serum, total 0.40 mg/dL 0.00-1.00 Lab Report: Lipid Panel, Comp. Metabolic Panel, CBC - Hematology leukocyte count, blood 6.6 10^3/MM^3 10*3/mm3 4.6-10.2 erythrocyte (RBC) count 4.19 10^6/MM^3 10*6/mm3 4.69-6.13 hemoglobin, blood 13.7 g/dL 13.5-17.5 hematocrit, blood 40.1 % 41.0-53.0 mean corpuscular volume, RBC 96 fL 80-97 mean corpuscular hemoglobin, RBC 32.6 pg 27.0-31.2 mean corpuscular hemoglobin concentration, RBC 34.1 G/DL % 31.8- 35.4 red blood cell distribution width 13.5 % 11.6-14.8 platelet count 229 10^3/MM^3 10*3/mm3 142-424 Lab Report: Prostatic Specific Ag - Chemistry prostate specific antigen 1.11 ng/mL 0.00-4.00 prostate specific antigen 1.11 ng/mL 0.00-4.00 prostate specific antigen 1.61 ng/mL 0.00-4.00 Office Visit: 4 mo f/u prostate cancer - Chemistry protein, total urine random 2+ mg/dL RBC, urine, dipstick 3+ Office Visit: 4 mo f/u prostate cancer - Urinalysis ketones, urine, by test strip negative bilirubin, urine negative glucose, urine, semiquantitative negative pH, urine, semiquantitative 7.5 specific gravity, urine 1.010 urinalysis, routine Clean Catch culture status Yes urine color yellow appearance, urine clear leukocyte esterase, urine, by dipstick 3+ nitrite, urine, semiquantitative positive urobilinogen, urine, semiquantitative (dipstick) 0.2 protein, urine, semiquantitative (dipstick) negative Office Visit: Follow up - Chemistry RBC, urine, dipstick negative protein, total urine random 1+ mg/dL Office Visit: Follow up - Urinalysis pH, urine, semiquantitative 7 specific gravity, urine 1.015 urinalysis, routine Clean Catch culture status Yes ketones, urine, by test strip negative bilirubin, urine negative glucose, urine, semiquantitative negative urine color yellow appearance, urine clear leukocyte esterase, urine, by dipstick 3+ nitrite, urine, semiquantitative positive urobilinogen, urine, semiquantitative (dipstick) 0.2 protein, urine, semiquantitative (dipstick) negative Encounters Code Encounter Date Provider Facility CPT-08809 Level 3 Est. Patient 08:20:19 CDT Zoran Arzola MD [facility] CPT-87932 Level 3 Est. Patient 09:22:21 CDT Capo Poe MD [facility] CPT-64005 Level 4 Est. Patient 10:21:30 CORRESPONDENCE DICTATOR Capo Poe MD [facility] CPT-84174 Level 3 Est. Patient 17:08:51 CORRESPONDENCE DICTATOR Zoran Arzola MD [facility] CPT-80082 Level 4 Est. Patient 09:44:42 CDT Capo Poe MD [facility] CPT-31115 Level 4 Est. Patient 10:39:29 CDT Capo Poe MD [facility] CPT-55249 Level 3 Est. Patient 17:45:23 CDT Zoran Arzola MD [facility] CPT-48315 Level 4 Est. Patient 08:50:44 CDT Capo Poe MD [facility] CPT-45487 Level 3 Est. Patient 10:39:51 CORRESPONDENCE DICTATOR Capo Poe MD [facility] CPT-96895 Level 4 Est. Patient 09:44:24 CORRESPONDENCE DICTATOR Capo Poe MD [facility] CPT-04238 Level 3 Est. Patient 14:48:42 CORRESPONDENCE DICTATOR Zoran Arzola MD [facility] CPT-61617 Level 4 Est. Patient 10:24:02 CDT Capo Poe MD [facility] CPT-00932 Level 3 Est. Patient 15:42:00 CDT Maya Kem DUKES [facility] CPT-34043 Level 4 Est. Patient 13:34:15 CDT Capo Poe MD [facility] CPT-64178 Level 3 Est. Patient 15:32:10 CORRESPONDENCE DICTATOR Zoran Arzola MD [facility] CPT-83228 Level 3 New Patient 17:17:19 CORRESPONDENCE DICTATOR Zoran Arzola MD [facility] CPT-41870 Level 4 Est. Patient 10:25:01 CORRESPONDENCE DICTATOR Capo Poe MD [facility] CPT-90879 Level 3 Est. Patient 10:10:42 CDT Zoran Arzola MD [facility] CPT-37222 Level 3 Est. Patient 22:30:02 CDT Zoran Arzola MD [facility] CPT-87220 Level 4 Est. Patient 09:54:20 CDT Capo Poe MD [facility] CPT-62605 Level 3 Est. Patient 10:48:30 CDT Capo Poe MD [facility] CPT-99466 Level 3 Est. Patient 11:24:45 CDT Capo Poe MD [facility] CPT-01467 Level 3 Est. Patient 15:23:48 CORRESPONDENCE DICTATOR Capo Poe MD [facility] CPT-02017 Level 3 Est. Patient 15:10:03 CORRESPONDENCE DICTATOR Capo Poe MD [facility] CPT-48473 Level 3 Est. Patient 16:18:40 CDT Zoran Arzola MD [facility] Procedures Code Procedure Name Date Entry Date Standard Description CPT-29799 Abd single AP View 15:50:24 CDT CPT-40503 Cystoscopy W/rem FB 15:21:28 CDT CPT-40416 Abd single AP View 14:06:45 CDT CPT-10065 Postop F/U Visit 09:48:32 CDT CPT-07115 Abd single AP View 13:58:26 CDT CPT-71989 Hip comp min 2V 10:27:18 CORRESPONDENCE DICTATOR CPT-95973 Urine Dip (Floor Use Only) 13:41:01 CORRESPONDENCE DICTATOR CPT-05402 Postop F/U Visit 11:17:48 CDT CPT-LR Lesion Removal 11:50:22 CDT CPT-OV Office Visit 11:50:22 CDT CPT-80652 Pneumovax 23 10:55:48 CDT CPT-11300 Administration single or combination vaccine inc oral 10 :55:48 CDT CPT-Cryo Cryotherapy 11:18:11 CDT CPT-OV Office Visit 11:18:11 CDT CPT-80630 LS spine AP and Lat 09:05:22 CDT CPT-01518 Bladder Scan 15:42:00 CDT CPT-65435 Cystoscopy 15:42:00 CDT CPT-OV Office Visit 16:37:19 CORRESPONDENCE DICTATOR CPT-51136 Bladder Scan 15:32:10 CORRESPONDENCE DICTATOR CPT-76313 Cystoscopy 15:32:10 CORRESPONDENCE DICTATOR CPT-48123 Abd single AP View 14:05:59 CORRESPONDENCE DICTATOR CPT-68672 Pill cam small bowel 09:48:39 CORRESPONDENCE DICTATOR CPT-12805 Urine Dip (Floor Use Only) 17:17:19 CORRESPONDENCE DICTATOR CPT-46319 Bladder Scan 17:17:19 CORRESPONDENCE DICTATOR CPT-OV Office Visit 11:50:26 CORRESPONDENCE DICTATOR CPT-18436 Bladder Scan 10:10:42 CDT CPT-04367 Venipuncture Draw Fee 09:14:04 CDT CPT-35702 Chest 2V Frontal and Lat 10:10:49 CDT CPT-59664 LS spine comp w obliq 11:50:11 CDT CPT-61873 Venipuncture Draw Fee 08:52:57 CORRESPONDENCE DICTATOR CPT-72502 Cystoscopy W/rem FB 18:37:28 CDT CPT-55115 Abd single AP View 16:18:40 CDT CPT-44566 Abd compl w upright 17:30:59 CDT
--- OUTSIDE RECORDS SUMMARY | 2016-11-22 15:12 | XMS REPORT | Clinical Summary ---
Author Author Admin, MARGE Organization [facility] Address Unknown Phone Unavailable Allergies, Adverse [...] [PSA] URINARY TRACT INFECTION 599.0 Resolved Capo Peo MD Urinary tract infection, site not specified [...] Active Zoran Arzola MD Urinary calculus, unspecified NAUSEA AND VOMITING ICD-787.01 Inactive Capo Poe [...] MD UTI ICD-599.0 Inactive Capo Poe MD Medication List Medication Instructions Start Date Stop Date Generic Name NDC Status Provider Patient Instruction DULERA 100-5 MCG/ACT AERO 2 puffs BID MOMETASONE FURO- FORMOTEROL FUM 94010268407 Active Capo Poe MD Active SERTRALINE HCL 100 MG ORAL TABS take 1 tab daily SERTRALINE HCL 90723443402 Active Capo Poe MD Active ZOLOFT 100 MG TABS 1 po daily SERTRALINE HCL 77539129511 No Longer Active Zoran Arzola MD Active FERROUS SULFATE 325 (65 FE) MG TABS 1 tablet by mouth daily FERROUS SULFATE 57711538289 No Longer Active Capo Poe MD Active TRAMADOL HCL 50 MG TABS 1-2 tablets every 6 hours as needed for pain TRAMADOL HCL 17871787033 Active Capo Poe MD Active HYDROCODONE-ACETAMINOPHEN 7.5-300 MG TABS take one every six hours HYDROCODONE-ACETAMINOPHEN 91438604529 No Longer Active Capo Poe MD Active TRIAMCINOLONE ACETONIDE 0.1 % OINT Apply to affected areas TID for up to 2 weeks TRIAMCINOLONE ACETONIDE 78235889569 No Longer Active Joe Vargas RN Active FERROUS SULFATE 325 (65 FE) MG TABS Take one by mouth daily FERROUS SULFATE 71348925604 No Longer Active Capo Poe MD Active TRIAMCINOLONE ACETONIDE 0.1 % OINT Apply to affected areas TID for up to 2 weeks TRIAMCINOLONE ACETONIDE 47106327792 No Longer Active Capo Poe MD Active ADULT ASPIRIN LOW STRENGTH 81 MG TBDP qd ASPIRIN 08862797621 Active Zoran Arzola MD Active ALEVE 220 MG TAB prn NAPROXEN SODIUM 13991026344 Active Capo Poe MD Active LISINOPRIL-HYDROCHLOROTHIAZIDE 10-12.5 MG TABS 1 tab by mouth daily LISINOPRIL-HYDROCHLOROTHIAZIDE 78267640191 Active Capo Poe MD Active MACROBID 100 MG CAP 1 cap by mouth twice daily NITROFURANTOIN MONOHYD MACRO 66331149805 No Longer Active Dona Becker Active AZITHROMYCIN 250 MG TABS 2 po qd x 1 day, then 1 po qd x 4 days AZITHROMYCIN 91772234338 No Longer Active Capo Poe MD Active FISH OIL 500 MG CAPS by mouth twice a day OMEGA-3 FATTY ACIDS 35261280031 Active Capo Poe MD Active FLAXSEED OIL 1000 MG CAPS Take two by mouth daily FLAXSEED (LINSEED) 82369572532 Active Zoran Arzola MD Active RED YEAST RICE 600 MG CAPS Take two by mouth daily RED YEAST RICE EXTRACT 40439051724 Active Zoran Arzola MD Active MULTIVITAMINS CAPS Take one by mouth daily MULTIPLE VITAMIN 82897873602 Active Zoran Arzola MD Active ICAPS MV TABS 2 po daily MULTIPLE VITAMINS-MINERALS 42286362263 Active Jam Arnold DO Active MACROBID 100 MG CAP 1 cap by mouth twice daily MACROBID 100 MG CAP 596285 NITROFURANTOIN MONOHYD MACRO Inactive FERROUS SULFATE 325 (65 FE) MG TABS Take one by mouth daily FERROUS SULFATE 325 (65 FE) MG TABS 040703 FERROUS SULFATE Inactive HYDROCODONE-ACETAMINOPHEN 7.5-300 MG TABS take one every six hours HYDROCODONE-ACETAMINOPHEN 7.5-300 MG TABS 229312 HYDROCODONE- ACETAMINOPHEN Inactive FERROUS SULFATE 325 (65 FE) MG TABS 1 tablet by mouth daily FERROUS SULFATE 325 (65 FE) MG TABS 254559 FERROUS SULFATE Inactive ZOLOFT 100 MG TABS 1 po daily ZOLOFT 100 MG TABS 126082 SERTRALINE HCL Inactive AZITHROMYCIN 250 MG TABS 2 po qd x 1 day, then 1 po qd x 4 days AZITHROMYCIN 250 MG TABS 7146297 AZITHROMYCIN Inactive TRIAMCINOLONE ACETONIDE 0.1 % OINT Apply to affected areas TID for up to 2 weeks TRIAMCINOLONE ACETONIDE 0.1 % OINT 0766041 TRIAMCINOLONE ACETONIDE Inactive TRIAMCINOLONE ACETONIDE 0.1 % OINT Apply to affected areas TID for up to 2 weeks TRIAMCINOLONE ACETONIDE 0.1 % OINT 9068193 TRIAMCINOLONE ACETONIDE Inactive Advance Directives Directive Description [...] CBC - Chemistry cholesterol, serum 207 mg/dL 062-263 9737/02/11 triglyceride, serum, fasting 74 mg/dL 30-200 HDL cholesterol, serum 62 mg/dL 32-96 LDL cholesterol, serum 130 mg/dL 0-130 sodium, serum 144 mmol/L 873-590 3637/02/11 potassium, serum 5.0 mmol/L 3.5-5.2 chloride, serum [...] negative Encounters Code Encounter Date Provider Facility CPT-35523 Level 3 Est. Patient 08:20:19 CDT Zoran Arzola MD [facility] CPT-05431 Level 3 Est. Patient 09:22:21 CDT Caop Poe MD [facility] CPT-99385 Level 4 Est. Patient 10:21:30 [employer] Capo Poe MD [facility] CPT-57758 Level 3 Est. Patient 17:08:51 [employer] Zoran Arzola MD [facility] CPT-07631 Level 4 Est. Patient 09:44:42 CDT Capo Poe MD [facility] CPT-76391 Level 4 Est. Patient 10:39:29 CDT Capo Poe MD [facility] CPT-94125 Level 3 Est. Patient 17:45:23 CDT Zoran Arzola MD [facility] CPT-46732 Level 4 Est. Patient 08:50:44 CDT Capo Poe MD [facility] CPT-32554 Level 3 Est. Patient 10:39:51 [employer] Capo Poe MD [facility] CPT-34607 Level 4 Est. Patient 09:44:24 [employer] Capo Poe MD [facility] CPT-69888 Level 3 Est. Patient 14:48:42 [employer] Zoran Arzola MD [facility] CPT-90941 Level 4 Est. Patient 10:24:02 CDT Capo Poe MD [facility] CPT-19210 Level 3 Est. Patient 15:42:00 CDT Maya Kem DUKES [facility] CPT-36421 Level 4 Est. Patient 13:34:15 CDT Capo Poe MD [facility] CPT-62686 Level 3 Est. Patient 15:32:10 [employer] Zoran Arzola MD [facility] CPT-18705 Level 3 New Patient 17:17:19 [employer] Zoran Arzola MD [facility] CPT-65904 Level 4 Est. Patient 10:25:01 [employer] Capo Poe MD [facility] CPT-24322 Level 3 Est. Patient 10:10:42 CDT Zoran Arzola MD [facility] CPT-85456 Level 3 Est. Patient 22:30:02 CDT Zoran Arzola MD [facility] CPT-58541 Level 4 Est. Patient 09:54:20 CDT Capo Poe MD [facility] CPT-46507 Level 3 Est. Patient 10:48:30 CDT Capo Poe MD [facility] CPT-98482 Level 3 Est. Patient 11:24:45 CDT Capo Poe MD [facility] CPT-43146 Level 3 Est. Patient 15:23:48 [employer] Capo Poe MD [facility] CPT-73811 Level 3 Est. Patient 15:10:03 [employer] Capo Poe MD [facility] CPT-47566 Level 3 Est. Patient 16:18:40 CDT Zoran Arzola MD [facility] Procedures Code Procedure Name Date Entry Date Standard Description CPT-88999 Abd single AP View 15:50:24 CDT CPT-23119 Cystoscopy W/rem FB 15:21:28 CDT CPT-14205 Abd single AP View 14:06:45 CDT CPT-31452 Postop F/U Visit 09:48:32 CDT CPT-42126 Abd single AP View 13:58:26 CDT CPT-34902 Hip comp min 2V 10:27:18 [employer] CPT-29215 Urine Dip (Floor Use Only) 13:41:01 [employer] CPT-52514 Postop F/U Visit 11:17:48 CDT CPT-LR Lesion Removal 11:50:22 CDT CPT-OV Office Visit 11:50:22 CDT CPT-94965 Pneumovax 23 10:55:48 CDT CPT-72462 Administration single or combination vaccine inc oral 10 :55:48 CDT CPT-Cryo Cryotherapy 11:18:11 CDT CPT-OV Office Visit 11:18:11 CDT CPT-63113 LS spine AP and Lat 09:05:22 CDT CPT-61700 Bladder Scan 15:42:00 CDT CPT-77607 Cystoscopy 15:42:00 CDT CPT-OV Office Visit 16:37:19 [employer] CPT-74410 Bladder Scan 15:32:10 [employer] CPT-94652 Cystoscopy 15:32:10 [employer] CPT-27689 Abd single AP View 14:05:59 [employer] CPT-83946 Pill cam small bowel 09:48:39 [employer] CPT-06441 Urine Dip (Floor Use Only) 17:17:19 [employer] CPT-88524 Bladder Scan 17:17:19 [employer] CPT-OV Office Visit 11:50:26 [employer] CPT-77379 Bladder Scan 10:10:42 CDT CPT-33331 Venipuncture Draw Fee 09:14:04 CDT CPT-46496 Chest 2V Frontal and Lat 10:10:49 CDT CPT-87967 LS spine comp w obliq 11:50:11 CDT CPT-13218 Venipuncture Draw Fee 08:52:57 [employer] CPT-70520 Cystoscopy W/rem FB 18:37:28 CDT CPT-11513 Abd single AP View 16:18:40 CDT CPT-58065 Abd compl w upright 17:30:59 CDT
--- OUTSIDE RECORDS SUMMARY | 2016-11-22 15:13 | XMS REPORT | Clinical Summary ---
Author Author Admin, MARGE Organization [facility] Address Unknown Phone Unavailable Allergies, Adverse Reactions, [...] site; multiple sites FLANK PAIN, RIGHT 789.09 Active Jazmín Ludwig Abdominal pain, other specified site; multiple sites [...] not elsewhere classified ANEMIA 285.9 Active Felisa Shelley Marva Anemia, unspecified U T I-RECURRENT 599.0 Resolved [...] Active Zoran Arzola MD Urinary calculus, unspecified Constipation 564.00 Active Capo Poe MD Constipation, unspecified Smoker/tobacco use disorder-smoking cessation discussed 305.1 Active Capo Poe MD Tobacco use disorder NAUSEA AND VOMITING ICD-787.01 Inactive Capo Poe MD CALCULUS OF KIDNEY ICD-592.0 Inactive Capo Poe MD URETERAL CALCULUS ICD-592.1 Inactive Capo Poe MD FLANK PAIN ICD-789.09 Inactive Capo Poe MD 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 Inactive Capo Poe MD RENAL CALCULUS ICD-592.9 Inactive Capo Poe MD SCIATICA ICD-724.3 Inactive [...] SKIN ERUPTION ICD-782.1 Inactive Capo Poe MD Skin lesion ICD-709.9 Inactive Capo Poe MD Ecchymoses, spontaneous ICD-782.7 Inactive Capo Poe MD Lumbar radiculopathy ICD-724.4 Inactive 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 Inactive Capo Poe MD UTI ICD-599.0 Inactive Capo Poe MD Near syncope ICD-780.2 Inactive Capo Poe MD Medication List Medication Instructions Start Date Stop Date Generic Name NDC Status Provider Patient Instruction NICOTINE 14 MG/24HR TRANS PT24 Apply/Change q 24hr NICOTINE 11384474663 Active Capo Poe MD Active WELLBUTRIN SR 150 MG ORAL [id number] 1 po qd x 3 days, then 1 po BID BUPROPION HCL 09970233708 Active Capo Poe MD Active LORTAB 7.5-325 MG ORAL TABS 1 po q 6 hr prn pain HYDROCODONE- ACETAMINOPHEN 72147673141 Active Capo Poe MD Active FLOMAX 0.4 MG CAPS Take one by mouth daily TAMSULOSIN HCL 22558101305 Active Capo Poe MD Active MIRALAX PACK 1 po qd PRN Constipation POLYETHYLENE GLYCOL 3350 31169292143 Active Capo Poe MD Active DULERA 100-5 MCG/ACT AERO 2 puffs BID MOMETASONE FURO- FORMOTEROL FUM 06759762715 Active Capo Poe MD Active SERTRALINE HCL 100 MG ORAL TABS take 1 tab daily SERTRALINE HCL 69112819044 Active Capo Poe MD Active ZOLOFT 100 MG TABS 1 po daily SERTRALINE HCL 79487963075 No Longer Active Zoran Arzola MD Active FERROUS SULFATE 325 (65 FE) MG TABS 1 tablet by mouth daily FERROUS SULFATE 56242402941 No Longer Active Capo Poe MD Active TRAMADOL HCL 50 MG TABS 1-2 tablets every 6 hours as needed for pain TRAMADOL HCL 93562506382 Active Capo Poe MD Active HYDROCODONE-ACETAMINOPHEN 7.5-300 MG TABS take one every six hours HYDROCODONE-ACETAMINOPHEN 01788369229 No Longer Active Capo Poe MD Active TRIAMCINOLONE ACETONIDE 0.1 % OINT Apply to affected areas TID for up to 2 weeks TRIAMCINOLONE ACETONIDE 15021280774 No Longer Active Joe Vargas RN Active FERROUS SULFATE 325 (65 FE) MG TABS Take one by mouth daily FERROUS SULFATE 20673246440 No Longer Active Capo Poe MD Active TRIAMCINOLONE ACETONIDE 0.1 % OINT Apply to affected areas TID for up to 2 weeks TRIAMCINOLONE ACETONIDE 07636966211 No Longer Active Capo Poe MD Active ADULT ASPIRIN LOW STRENGTH 81 MG TBDP qd ASPIRIN 66775402996 Active Zoran Arzola MD Active ALEVE 220 MG TAB prn NAPROXEN SODIUM 25918613145 Active Capo Poe MD Active LISINOPRIL-HYDROCHLOROTHIAZIDE 10-12.5 MG TABS 1 tab by mouth daily LISINOPRIL-HYDROCHLOROTHIAZIDE 01701090838 Active Capo Poe MD Active MACROBID 100 MG CAP 1 cap by mouth twice daily NITROFURANTOIN MONOHYD MACRO 71664812330 No Longer Active Dona Becker Active AZITHROMYCIN 250 MG TABS 2 po qd x 1 day, then 1 po qd x 4 days AZITHROMYCIN 41193370062 No Longer Active Capo Poe MD Active FISH OIL 500 MG CAPS by mouth twice a day OMEGA-3 FATTY ACIDS 90664305058 Active Capo Poe MD Active FLAXSEED OIL 1000 MG CAPS Take two by mouth daily FLAXSEED (LINSEED) 12418116969 Elza Arzola MD Active RED YEAST RICE 600 MG CAPS Take two by mouth daily RED YEAST RICE EXTRACT 05399014642 Elza Arzola MD Active MULTIVITAMINS CAPS Take one by mouth daily MULTIPLE VITAMIN 23611970744 Active Zoran Arzola MD Active ICAPS MV TABS 2 po daily MULTIPLE VITAMINS-MINERALS 17757512872 Active Jam Arnold DO Active MACROBID 100 MG CAP 1 cap by mouth twice daily MACROBID 100 MG CAP 5504301 NITROFURANTOIN MONOHYD MACRO Inactive FERROUS SULFATE 325 (65 FE) MG TABS Take one by mouth daily FERROUS SULFATE 325 (65 FE) MG TABS 866196 FERROUS SULFATE Inactive HYDROCODONE-ACETAMINOPHEN 7.5-300 MG TABS take one every six hours HYDROCODONE-ACETAMINOPHEN 7.5-300 MG TABS 963119 HYDROCODONE- ACETAMINOPHEN Inactive FERROUS SULFATE 325 (65 FE) MG TABS 1 tablet by mouth daily FERROUS SULFATE 325 (65 FE) MG TABS 389920 FERROUS SULFATE Inactive ZOLOFT 100 MG TABS 1 po daily ZOLOFT 100 MG TABS 276555 SERTRALINE HCL Inactive AZITHROMYCIN 250 MG TABS 2 po qd x 1 day, then 1 po qd x 4 days AZITHROMYCIN 250 MG TABS 2400321 AZITHROMYCIN Inactive TRIAMCINOLONE ACETONIDE 0.1 % OINT Apply to affected areas TID for up to 2 weeks TRIAMCINOLONE ACETONIDE 0.1 % OINT 7575468 TRIAMCINOLONE ACETONIDE Inactive TRIAMCINOLONE ACETONIDE 0.1 % OINT Apply to affected areas TID for up to 2 weeks TRIAMCINOLONE ACETONIDE 0.1 % OINT 5072249 TRIAMCINOLONE ACETONIDE Inactive Advance Directives Directive Description Start Date PERMISSION TO SHARE Immunizations Vaccine Administration Date Value Standard Description pneumococcal immunization administered Pneumovax 23 [CVX33] pneumococcal polysaccharide vaccine, 23 valent Vital Signs Date Name Value Unit Range Description blood pressure, diastolic - 8462-4 68 mm[Hg] BP [place] blood pressure, systolic - 8480-6 112 mm[Hg] BP sys pulse rate E&M - 8867-4 71 /min Heart rate temperature E&M 96.9 [degF] Body temperature weight E&M - 3141-9 134 [lb_av] Weight Measured blood pressure, diastolic - 8462-4 75 mm[Hg] BP [place] blood pressure, systolic - 8480-6 150 mm[Hg] BP sys pulse rate E&M - 8867-4 66 /min Heart rate temperature E&M 97 [degF] Body temperature weight E&M - 3141-9 136.9 [lb_av] Weight Measured blood pressure, diastolic - 8462-4 70 mm[Hg] BP austin blood pressure, systolic - 8480-6 110 mm[Hg] BP sys pulse rate E&M - 8867-4 80 /min Heart rate temperature E&M 98.1 [degF] Body temperature weight E&M - 3141-9 [...] E&M - 3141-9 146 [lb_av] Weight Measured Diagnostic Results Date Name Value Unit Range Description Chart Maintenance: Outside labs entered on flowsheet - Chemistry sodium, serum 137 mmol/L potassium, serum 4.0 mmol/L blood glucose 117 mg/dL creatinine, serum 1.68 mg/dL Chart Maintenance: Outside labs entered on flowsheet - Hematology leukocyte count, blood 9.5 10*3/mm3 hemoglobin, blood 14.5 g/dL platelet count 290 10*3/mm3 Lab Report: Basic Metabolic Panel - Chemistry sodium, serum 139 mmol/L 545-967 4581/07/30 potassium, serum 4.7 mmol/L 3.5-5.2 chloride, serum 101 mmol/L 98-107 carbon dioxide, venous blood 34.8 mmol/L 21.0-32.0 blood glucose 124 mg/dL 65-110 calcium, serum 8.9 mg/dL 8.5-10.1 urea nitrogen, blood 18 mg/dL 7-18 creatinine, serum 1.40 mg/dL 0.60-1.30 Lab Report: HGBA1C, CBC - Chemistry hemoglobin [...] CBC - Chemistry cholesterol, serum 207 mg/dL 822-233 3932/02/11 triglyceride, serum, fasting 74 mg/dL 30-200 HDL cholesterol, serum 62 mg/dL 32-96 LDL cholesterol, serum 130 mg/dL 0-130 sodium, serum 144 mmol/L 131-831 8672/02/11 potassium, serum 5.0 mmol/L 3.5-5.2 chloride, serum [...] 0.00-4.00 prostate specific antigen 1.11 ng/mL 0.00-4.00 Office Visit: 4 mo f/u [...] negative Encounters Code Encounter Date Provider Facility CPT-84502 Level 3 Est. Patient 09:27:01 CDT Capo Poe MD [facility] CPT-10474 Level 3 Est. Patient 18:37:08 CDT Zoran Arzola MD [facility] CPT-82295 Level 3 Est. Patient 15:00:28 CDT Capo Poe MD [facility] CPT-35959 Level 3 Est. Patient 08:20:19 CDT Zoran Arzola MD [facility] CPT-93791 Level 3 Est. Patient 09:22:21 CDT Capo Poe MD [facility] CPT-13858 Level 4 Est. Patient 10:21:30 [employer] Capo Poe MD [facility] CPT-61409 Level 3 Est. Patient 17:08:51 [employer] Zoran Arzola MD [facility] CPT-51538 Level 4 Est. Patient 09:44:42 CDT Capo Poe MD [facility] CPT-16848 Level 4 Est. Patient 10:39:29 CDT Capo Poe MD [facility] CPT-24388 Level 3 Est. Patient 17:45:23 CDT Zoran Arzola MD [facility] CPT-10770 Level 4 Est. Patient 08:50:44 CDT Capo Poe MD [facility] CPT-04279 Level 3 Est. Patient 10:39:51 [employer] Capo Poe MD [facility] CPT-59805 Level 4 Est. Patient 09:44:24 [employer] Capo Poe MD [facility] CPT-29202 Level 3 Est. Patient 14:48:42 [employer] Zoran Arzola MD [facility] CPT-59091 Level 4 Est. Patient 10:24:02 CDT Capo Poe MD [facility] CPT-98194 Level 3 Est. Patient 15:42:00 CDT Maya WRIGHTP [facility] CPT-56781 Level 4 Est. Patient 13:34:15 CDT Capo Poe MD [facility] CPT-71308 Level 3 Est. Patient 15:32:10 [employer] Zoran Arzola MD [facility] CPT-96340 Level 3 New Patient 17:17:19 [employer] Zoran Arzola MD [facility] CPT-04160 Level 4 Est. Patient 10:25:01 [employer] Capo Poe MD [facility] CPT-32024 Level 3 Est. Patient 10:10:42 CDT Zoran Arzola MD [facility] CPT-63525 Level 3 Est. Patient 22:30:02 CDT Zoran Arzola MD [facility] CPT-96070 Level 4 Est. Patient 09:54:20 CDT Capo Poe MD [facility] CPT-75985 Level 3 Est. Patient 10:48:30 CDT Capo Poe MD [facility] CPT-58596 Level 3 Est. Patient 11:24:45 CDT Capo Poe MD [facility] CPT-29612 Level 3 Est. Patient 15:23:48 [employer] Capo Poe MD [facility] CPT-82430 Level 3 Est. Patient 15:10:03 [employer] Capo Poe MD [facility] CPT-78015 Level 3 Est. Patient 16:18:40 CDT Zoran Arzola MD [facility] Procedures Code Procedure Name Date Entry Date Standard Description CPT-97914 Abd single AP View 08:32:00 CDT CPT-58923 Postop F/U Visit 21:13:08 CDT CPT-45715 Abd single AP View 15:50:24 CDT CPT-83254 Cystoscopy W/rem FB 15:21:28 CDT CPT-87479 Abd single AP View 14:06:45 CDT CPT-40028 Postop F/U Visit 09:48:32 CDT CPT-84040 Abd single AP View 13:58:26 CDT CPT-31363 Hip comp min 2V 10:27:18 [employer] CPT-10759 Urine Dip (Floor Use Only) 13:41:01 [employer] CPT-31662 Postop F/U Visit 11:17:48 CDT CPT-LR Lesion Removal 11:50:22 CDT CPT-OV Office Visit 11:50:22 CDT CPT-04344 Pneumovax 23 10:55:48 CDT CPT-68968 Administration single or combination vaccine inc oral 10 :55:48 CDT CPT-Cryo Cryotherapy 11:18:11 CDT CPT-OV Office Visit 11:18:11 CDT CPT-26947 LS spine AP and Lat 09:05:22 CDT CPT-32207 Bladder Scan 15:42:00 CDT CPT-84139 Cystoscopy 15:42:00 CDT CPT-OV Office Visit 16:37:19 [employer] CPT-45678 Bladder Scan 15:32:10 [employer] CPT-67678 Cystoscopy 15:32:10 [employer] CPT-07408 Abd single AP View 14:05:59 [employer] CPT-84669 Pill cam small bowel 09:48:39 [employer] CPT-92032 Urine Dip (Floor Use Only) 17:17:19 [employer] CPT-71203 Bladder Scan 17:17:19 [employer] CPT-OV Office Visit 11:50:26 [employer] CPT-06446 Bladder Scan 10:10:42 CDT CPT-89154 Venipuncture Draw Fee 09:14:04 CDT CPT-68762 Chest 2V Frontal and Lat 10:10:49 CDT CPT-48657 LS spine comp w obliq 11:50:11 CDT CPT-13593 Venipuncture Draw Fee 08:52:57 [employer] CPT-77999 Cystoscopy W/rem FB 18:37:28 CDT CPT-60390 Abd single AP View 16:18:40 CDT CPT-81493 Abd compl w upright 17:30:59 CDT
--- OUTSIDE RECORDS SUMMARY | 2016-11-22 15:14 | XMS REPORT | Clinical Summary ---
Author Author Admin, MARGE Organization [facility] Address Unknown Phone Unavailable Allergies, Adverse [...] MG/24HR TRANS PT24 Apply/Change q 24hr NICOTINE 32633932675 Active Capo Poe MD Active WELLBUTRIN SR 150 MG ORAL [id number] 1 po qd x 3 days, then 1 po BID BUPROPION HCL 32697504016 Active Capo Poe MD Active LORTAB 7.5-325 MG ORAL TABS 1 po q 6 hr prn pain HYDROCODONE- ACETAMINOPHEN 04268942948 Active Capo Poe MD Active FLOMAX 0.4 MG CAPS Take one by mouth daily TAMSULOSIN HCL 82680806112 Active Capo Poe MD Active MIRALAX PACK 1 po qd PRN Constipation POLYETHYLENE GLYCOL 3350 28465085312 Active Capo Poe MD Active DULERA 100-5 MCG/ACT AERO 2 puffs BID MOMETASONE FURO- FORMOTEROL FUM 98326824566 Active Capo Poe MD Active SERTRALINE HCL 100 MG ORAL TABS take 1 tab daily SERTRALINE HCL 87159556282 Active Capo Poe MD Active ZOLOFT 100 MG TABS 1 po daily SERTRALINE HCL 90509997674 No Longer Active Zoran Arzola MD Active FERROUS SULFATE 325 (65 FE) MG TABS 1 tablet by mouth daily FERROUS SULFATE 61290606721 No Longer Active Capo Poe MD Active TRAMADOL HCL 50 MG TABS 1-2 tablets every 6 hours as needed for pain TRAMADOL HCL 45557539615 Active Capo Poe MD Active HYDROCODONE-ACETAMINOPHEN 7.5-300 MG TABS take one every six hours HYDROCODONE-ACETAMINOPHEN 30758902323 No Longer Active Capo Poe MD Active TRIAMCINOLONE ACETONIDE 0.1 % OINT Apply to affected areas TID for up to 2 weeks TRIAMCINOLONE ACETONIDE 90549139054 No Longer Active oJe Vargas RN Active FERROUS SULFATE 325 (65 FE) MG TABS Take one by mouth daily FERROUS SULFATE 01617415942 No Longer Active Capo Poe MD Active TRIAMCINOLONE ACETONIDE 0.1 % OINT Apply to affected areas TID for up to 2 weeks TRIAMCINOLONE ACETONIDE 41084897738 No Longer Active Capo Poe MD Active ADULT ASPIRIN LOW STRENGTH 81 MG TBDP qd ASPIRIN 87593104991 Active Zoran Arzola MD Active ALEVE 220 MG TAB prn NAPROXEN SODIUM 00726836974 Active Capo Poe MD Active LISINOPRIL-HYDROCHLOROTHIAZIDE 10-12.5 MG TABS 1 tab by mouth daily LISINOPRIL-HYDROCHLOROTHIAZIDE 84898723131 Active Capo Poe MD Active MACROBID 100 MG CAP 1 cap by mouth twice daily NITROFURANTOIN MONOHYD MACRO 04554620524 No Longer Active Dona Becker Active AZITHROMYCIN 250 MG TABS 2 po qd x 1 day, then 1 po qd x 4 days AZITHROMYCIN 14672587340 No Longer Active Capo Poe MD Active FISH OIL 500 MG CAPS by mouth twice a day OMEGA-3 FATTY ACIDS 22519126168 Active Capo Poe MD Active FLAXSEED OIL 1000 MG CAPS Take two by mouth daily FLAXSEED (LINSEED) 41007889076 Elza Arzola MD Active RED YEAST RICE 600 MG CAPS Take two by mouth daily RED YEAST RICE EXTRACT 66756417798 Elza Arzola MD Active MULTIVITAMINS CAPS Take one by mouth daily MULTIPLE VITAMIN 98199994223 Active Zoran Arzola MD Active ICAPS MV TABS 2 po daily MULTIPLE VITAMINS-MINERALS 13169029440 Active Jam Arnold DO Active MACROBID 100 MG CAP 1 cap by mouth twice daily MACROBID 100 MG CAP 9268669 NITROFURANTOIN MONOHYD MACRO Inactive FERROUS SULFATE 325 (65 FE) MG TABS Take one by mouth daily FERROUS SULFATE 325 (65 FE) MG TABS 999878 FERROUS SULFATE Inactive HYDROCODONE-ACETAMINOPHEN 7.5-300 MG TABS take one every six hours HYDROCODONE-ACETAMINOPHEN 7.5-300 MG TABS 163563 HYDROCODONE- ACETAMINOPHEN Inactive FERROUS SULFATE 325 (65 FE) MG TABS 1 tablet by mouth daily FERROUS SULFATE 325 (65 FE) MG TABS 776582 FERROUS SULFATE Inactive ZOLOFT 100 MG TABS 1 po daily ZOLOFT 100 MG TABS 343908 SERTRALINE HCL Inactive AZITHROMYCIN 250 MG TABS 2 po qd x 1 day, then 1 po qd x 4 days AZITHROMYCIN 250 MG TABS 7843004 AZITHROMYCIN Inactive TRIAMCINOLONE ACETONIDE 0.1 % OINT Apply to affected areas TID for up to 2 weeks TRIAMCINOLONE ACETONIDE 0.1 % OINT 9515824 TRIAMCINOLONE ACETONIDE Inactive TRIAMCINOLONE ACETONIDE 0.1 % OINT Apply to affected areas TID for up to 2 weeks TRIAMCINOLONE ACETONIDE 0.1 % OINT 3844238 TRIAMCINOLONE ACETONIDE Inactive Advance Directives Directive Description [...] Panel - Chemistry sodium, serum 139 mmol/L 038-354 7256/07/30 potassium, serum 4.7 mmol/L 3.5-5.2 chloride, serum [...] CBC - Chemistry cholesterol, serum 207 mg/dL 076-270 2638/02/11 triglyceride, serum, fasting 74 mg/dL 30-200 HDL cholesterol, serum 62 mg/dL 32-96 LDL cholesterol, serum 130 mg/dL 0-130 sodium, serum 144 mmol/L 951-751 3035/02/11 potassium, serum 5.0 mmol/L 3.5-5.2 chloride, serum [...] negative Encounters Code Encounter Date Provider Facility CPT-28216 Level 3 Est. Patient 09:27:01 CDT Capo Poe MD [facility] CPT-41645 Level 3 Est. Patient 18:37:08 CDT Zoran Arzola MD [facility] CPT-75139 Level 3 Est. Patient 15:00:28 CDT Capo Poe MD [facility] CPT-57908 Level 3 Est. Patient 08:20:19 CDT Zoran Arzola MD [facility] CPT-86194 Level 3 Est. Patient 09:22:21 CDT Capo Poe MD [facility] CPT-26486 Level 4 Est. Patient 10:21:30 REGISTERED CLIENT ASSOCIATE Capo Poe MD [facility] CPT-35081 Level 3 Est. Patient 17:08:51 REGISTERED CLIENT ASSOCIATE Zoran Arzola MD [facility] CPT-15343 Level 4 Est. Patient 09:44:42 CDT Capo Poe MD [facility] CPT-42672 Level 4 Est. Patient 10:39:29 CDT Capo Poe MD [facility] CPT-47032 Level 3 Est. Patient 17:45:23 CDT Zoran Arzola MD [facility] CPT-09238 Level 4 Est. Patient 08:50:44 CDT Capo Poe MD [facility] CPT-37212 Level 3 Est. Patient 10:39:51 REGISTERED CLIENT ASSOCIATE Capo Poe MD [facility] CPT-63161 Level 4 Est. Patient 09:44:24 REGISTERED CLIENT ASSOCIATE Capo Poe MD [facility] CPT-46299 Level 3 Est. Patient 14:48:42 REGISTERED CLIENT ASSOCIATE Zoran Arzola MD [facility] CPT-21654 Level 4 Est. Patient 10:24:02 CDT Capo Poe MD [facility] CPT-10165 Level 3 Est. Patient 15:42:00 CDT Maya WRIGHTP [facility] CPT-51928 Level 4 Est. Patient 13:34:15 CDT Capo Poe MD [facility] CPT-38849 Level 3 Est. Patient 15:32:10 REGISTERED CLIENT ASSOCIATE Zoran Arzola MD [facility] CPT-03763 Level 3 New Patient 17:17:19 REGISTERED CLIENT ASSOCIATE Zoran Arzola MD [facility] CPT-77881 Level 4 Est. Patient 10:25:01 REGISTERED CLIENT ASSOCIATE Capo Poe MD [facility] CPT-56050 Level 3 Est. Patient 10:10:42 CDT Zoran Arzola MD [facility] CPT-27163 Level 3 Est. Patient 22:30:02 CDT Zoran Arzola MD [facility] CPT-98866 Level 4 Est. Patient 09:54:20 CDT Capo Poe MD [facility] CPT-11161 Level 3 Est. Patient 10:48:30 CDT Capo Poe MD [facility] CPT-55848 Level 3 Est. Patient 11:24:45 CDT Capo Poe MD [facility] CPT-58422 Level 3 Est. Patient 15:23:48 REGISTERED CLIENT ASSOCIATE Capo Poe MD [facility] CPT-99263 Level 3 Est. Patient 15:10:03 REGISTERED CLIENT ASSOCIATE Capo Poe MD [facility] CPT-70071 Level 3 Est. Patient 16:18:40 CDT Zoran Arzola MD [facility] Procedures Code Procedure Name Date Entry Date Standard Description CPT-58719 Abd single AP View 08:32:00 CDT CPT-58972 Postop F/U Visit 21:13:08 CDT CPT-30350 Abd single AP View 15:50:24 CDT CPT-30228 Cystoscopy W/rem FB 15:21:28 CDT CPT-13685 Abd single AP View 14:06:45 CDT CPT-20743 Postop F/U Visit 09:48:32 CDT CPT-57579 Abd single AP View 13:58:26 CDT CPT-92359 Hip comp min 2V 10:27:18 REGISTERED CLIENT ASSOCIATE CPT-88096 Urine Dip (Floor Use Only) 13:41:01 REGISTERED CLIENT ASSOCIATE CPT-70184 Postop F/U Visit 11:17:48 CDT CPT-LR Lesion Removal 11:50:22 CDT CPT-OV Office Visit 11:50:22 CDT CPT-89952 Pneumovax 23 10:55:48 CDT CPT-98093 Administration single or combination vaccine inc oral 10 :55:48 CDT CPT-Cryo Cryotherapy 11:18:11 CDT CPT-OV Office Visit 11:18:11 CDT CPT-55152 LS spine AP and Lat 09:05:22 CDT CPT-06712 Bladder Scan 15:42:00 CDT CPT-59108 Cystoscopy 15:42:00 CDT CPT-OV Office Visit 16:37:19 REGISTERED CLIENT ASSOCIATE CPT-23671 Bladder Scan 15:32:10 REGISTERED CLIENT ASSOCIATE CPT-04737 Cystoscopy 15:32:10 REGISTERED CLIENT ASSOCIATE CPT-57254 Abd single AP View 14:05:59 REGISTERED CLIENT ASSOCIATE CPT-71652 Pill cam small bowel 09:48:39 REGISTERED CLIENT ASSOCIATE CPT-54848 Urine Dip (Floor Use Only) 17:17:19 REGISTERED CLIENT ASSOCIATE CPT-62616 Bladder Scan 17:17:19 REGISTERED CLIENT ASSOCIATE CPT-OV Office Visit 11:50:26 REGISTERED CLIENT ASSOCIATE CPT-32217 Bladder Scan 10:10:42 CDT CPT-10511 Venipuncture Draw Fee 09:14:04 CDT CPT-11013 Chest 2V Frontal and Lat 10:10:49 CDT CPT-39912 LS spine comp w obliq 11:50:11 CDT CPT-34038 Venipuncture Draw Fee 08:52:57 REGISTERED CLIENT ASSOCIATE CPT-68032 Cystoscopy W/rem FB 18:37:28 CDT CPT-46496 Abd single AP View 16:18:40 CDT CPT-19974 Abd compl w upright 17:30:59 CDT
--- OUTSIDE RECORDS SUMMARY | 2016-11-22 15:15 | XMS REPORT | Clinical Summary ---
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 Simin wSeet LPN Mycoplasma infection in conditions classified elsewhere [...] MG TABS 1 daily for infection LEVOFLOXACIN 10879759114 Active Leanna Baker APRN Active AZITHROMYCIN 250 MG ORAL TABS 2 po qd x 1, then 1 po qd x 4 AZITHROMYCIN 12129496940 Active Capo Poe MD Active PREDNISONE 20 MG ORAL TABS 2 po qd x 5 days PREDNISONE 25614435137 No Longer Active Capo Poe MD Active CARAFATE 1 GM ORAL TABS 1 tid SUCRALFATE 73703110025 Active Capo Poe MD Active RANITIDINE HCL 150 MG ORAL TABS 1 bid RANITIDINE HCL 83073166080 Active Capo Poe MD Active MULTIVITAMINS CAPS Take one by mouth daily MULTIPLE VITAMIN 23047485722 No Longer Active Capo Poe MD Active LISINOPRIL 10 MG TABS 1 tablet by mouth daily LISINOPRIL 53403959820 No Longer Active Capo Poe MD Active EQL IRON SUPPLEMENT THERAPY 325 MG ORAL TABS 1 tab po twice daily FERROUS SULFATE 10642472049 Active Jasmin Arboledalas RMA Active D ORAL TABS 2000 iu weekly D ORAL TABS Active Capo Poe MD Active CITALOPRAM HYDROBROMIDE 20 MG TABS 1 tablet by mouth daily CITALOPRAM HYDROBROMIDE 06074348445 Active Capo Poe MD Active CLARITIN 5 MG ORAL CHEW 1 tab po q day LORATADINE 74873792685 Active Felisa Daphney RMA Active VIIBRYD STARTER PACK 10 & 20 MG ORAL KIT 1 po qd as directed 2015 VILAZODONE HCL 26702582085 No Longer Active Felisa Daphney RMA Active HYDROXYZINE HCL 25 MG TAB 1 po qHS PRN Insomnia HYDROXYZINE HCL 95846911856 Active Capo Poe MD Active LORTAB 7.5-325 MG ORAL TABS 1 po q 6 hr prn pain HYDROCODONE- ACETAMINOPHEN 39970082939 No Longer Active Capo Poe MD Active FLOMAX 0.4 MG CAPS Take one by mouth daily TAMSULOSIN HCL 12341897930 No Longer Active Capo Poe MD Active TRIAMCINOLONE ACETONIDE 0.1 % CREA Apply to affected areas TID for up to 2 weeks TRIAMCINOLONE ACETONIDE 47408931996 Active Capo Poe MD Active NICOTINE 14 MG/24HR TRANS PT24 Apply/Change q 24hr NICOTINE 04904204620 No Longer Active Capo Poe MD Active TRAMADOL HCL 50 MG TABS 1-2 tablets every 6 hours as needed for pain TRAMADOL HCL 31167682232 No Longer Active Capo Poe MD Active SERTRALINE HCL 100 MG ORAL TABS take 1 tab daily SERTRALINE HCL 69413495439 No Longer Active Capo Poe MD Active LISINOPRIL-HYDROCHLOROTHIAZIDE 10-12.5 MG TABS 0.5 tab by mouth daily LISINOPRIL-HYDROCHLOROTHIAZIDE 29440497635 No Longer Active Capo Poe MD Active OMEPRAZOLE 20 MG CPDR 1 tablet by mouth daily OMEPRAZOLE 30726287475 Active Capo Poe MD Active WELLBUTRIN SR 150 MG ORAL [id number] 1 po BID BUPROPION HCL 86850332537 No Longer Active Capo Poe MD Active MIRALAX PACK 1 po qd PRN Constipation POLYETHYLENE GLYCOL 3350 73393588226 Active Capo Poe MD Active DULERA 100-5 MCG/ACT AERO 2 puffs BID MOMETASONE FURO- FORMOTEROL FUM 97158066243 Active Capo Poe MD Active ZOLOFT 100 MG TABS 1 po daily SERTRALINE HCL 53691822231 No Longer Active Zoran Arzola MD Active FERROUS SULFATE 325 (65 FE) MG TABS 1 tablet by mouth daily FERROUS SULFATE 50566257239 No Longer Active Capo Poe MD Active HYDROCODONE-ACETAMINOPHEN 7.5-300 MG TABS take one every six hours HYDROCODONE-ACETAMINOPHEN 66144253100 No Longer Active Capo Poe MD Active TRIAMCINOLONE ACETONIDE 0.1 % OINT Apply to affected areas TID for up to 2 weeks TRIAMCINOLONE ACETONIDE 25334171672 No Longer Active Joe Vargas RN Active FERROUS SULFATE 325 (65 FE) MG TABS Take one by mouth daily FERROUS SULFATE 13037784255 No Longer Active Capo Poe MD Active TRIAMCINOLONE ACETONIDE 0.1 % OINT Apply to affected areas TID for up to 2 weeks TRIAMCINOLONE ACETONIDE 86489045852 No Longer Active Capo Poe MD Active ADULT ASPIRIN LOW STRENGTH 81 MG TBDP qd ASPIRIN 38222880988 Active Zoran Arzola MD Active ALEVE 220 MG TAB prn NAPROXEN SODIUM 07131628433 Active Capo Poe MD Active MACROBID 100 MG CAP 1 cap by mouth twice daily NITROFURANTOIN MONOHYD MACRO 78309962659 No Longer Active Dona Becker Active AZITHROMYCIN 250 MG TABS 2 po qd x 1 day, then 1 po qd x 4 days AZITHROMYCIN 36130728255 No Longer Active Capo Poe MD Active FISH OIL 500 MG CAPS by mouth twice a day OMEGA-3 FATTY ACIDS 31912007844 Active Capo Poe MD Active FLAXSEED OIL 1000 MG CAPS Take two by mouth daily FLAXSEED (LINSEED) 79048446227 Active Zoran Arzola MD Active RED YEAST RICE 600 MG CAPS Take two by mouth daily RED YEAST RICE EXTRACT 94541860826 Active Zoran Arzola MD Active ICAPS MV TABS 2 po daily MULTIPLE VITAMINS-MINERALS 53537933014 Active Jam Arnold DO Active MACROBID 100 MG CAP 1 cap by mouth twice daily MACROBID 100 MG CAP 1758127 NITROFURANTOIN MONOHYD MACRO Inactive FERROUS SULFATE 325 (65 FE) MG TABS Take one by mouth daily FERROUS SULFATE 325 (65 FE) MG TABS 818019 FERROUS SULFATE Inactive HYDROCODONE-ACETAMINOPHEN 7.5-300 MG TABS take one every six hours HYDROCODONE-ACETAMINOPHEN 7.5-300 MG TABS 925314 HYDROCODONE- ACETAMINOPHEN Inactive FERROUS SULFATE 325 (65 FE) MG TABS 1 tablet by mouth daily FERROUS SULFATE 325 (65 FE) MG TABS 327502 FERROUS SULFATE Inactive ZOLOFT 100 MG TABS 1 po daily ZOLOFT 100 MG TABS 785246 SERTRALINE HCL Inactive SERTRALINE HCL 100 MG ORAL TABS take 1 tab daily SERTRALINE HCL 100 MG ORAL TABS 889517 SERTRALINE HCL Inactive TRAMADOL HCL 50 MG TABS 1-2 tablets every 6 hours as needed for pain TRAMADOL HCL 50 MG TABS 100583 TRAMADOL HCL Inactive NICOTINE 14 MG/24HR TRANS PT24 Apply/Change q 24hr NICOTINE 14 MG/24HR TRANS PT24 062813 NICOTINE Inactive FLOMAX 0.4 MG CAPS Take one by mouth daily FLOMAX 0.4 MG CAPS 988227 TAMSULOSIN HCL Inactive LORTAB 7.5-325 MG ORAL TABS 1 po q 6 hr prn pain LORTAB 7.5- 325 MG ORAL TABS 028860 HYDROCODONE-ACETAMINOPHEN Inactive VIIBRYD STARTER PACK 10 & 20 MG ORAL KIT 1 po qd as directed 2015 VIIBRYD STARTER PACK 10 & 20 MG ORAL KIT VILAZODONE HCL Inactive LISINOPRIL 10 MG TABS 1 tablet by mouth daily LISINOPRIL 10 MG TABS 653242 LISINOPRIL Inactive MULTIVITAMINS CAPS Take one by mouth daily MULTIVITAMINS CAPS MULTIPLE VITAMIN Inactive AZITHROMYCIN 250 MG TABS 2 po qd x 1 day, then 1 po qd x 4 days AZITHROMYCIN 250 MG TABS 5282552 AZITHROMYCIN Inactive TRIAMCINOLONE ACETONIDE 0.1 % OINT Apply to affected areas TID for up to 2 weeks TRIAMCINOLONE ACETONIDE 0.1 % OINT 3208083 TRIAMCINOLONE ACETONIDE Inactive TRIAMCINOLONE ACETONIDE 0.1 % OINT Apply to affected areas TID for up to 2 weeks TRIAMCINOLONE ACETONIDE 0.1 % OINT 4769470 TRIAMCINOLONE ACETONIDE Inactive PREDNISONE 20 MG ORAL TABS 2 po qd x 5 days PREDNISONE 20 MG ORAL TABS 953592 PREDNISONE Inactive Advance Directives Directive Description Start [...] Panel - Chemistry sodium, serum 137 mmol/L 852-460 4568/07/26 carbon dioxide, venous blood 27.3 mmol/L 21.0-32.0 [...] ... - Chemistry sodium, serum 141 mmol/L 717-100 0538/01/27 carbon dioxide, venous blood 29.7 mmol/L 21.0-32.0 [...] % 11.0-15.0 platelet count 214 THOUSAND/UL 10*3/mm3 305-785 9675/03/31 mean platelet volume 8.4 fL 7.5-12.5 Encounters Code Encounter Date Provider Facility CPT-57504 Level 3 Est. Patient 11:31:49 CDT Leanna Baker APRN [facility] CPT-88750 Level 3 Est. Patient 09:44:06 CDT Capo Poe MD [facility] CPT-39880 Level 4 Est. Patient 09:26:11 MINERAL TECHNOLOGIST Capo Poe MD [facility] CPT-67851 Level 4 Est. Patient 08:53:08 CDT Capo Poe MD [facility] CPT-39782 Level 4 Est. Patient 10:22:57 CDT Capo Poe MD [facility] CPT-81538 Level 4 Est. Patient 13:44:30 CDT Capo Poe MD [facility] CPT-05174 Level 3 Est. Patient 14:59:32 MINERAL TECHNOLOGIST Capo Poe MD [facility] CPT-88239 Level 4 Est. Patient 10:46:15 MINERAL TECHNOLOGIST Capo Poe MD [facility] CPT-75273 Level 3 Est. Patient 11:00:53 CDT Capo Poe MD [facility] CPT-90258 Level 3 Est. Patient 09:39:35 CDT Capo Poe MD [facility] CPT-93241 Level 3 Est. Patient 09:27:01 CDT Capo Poe MD [facility] CPT-68427 Level 3 Est. Patient 18:37:08 CDT Zoran Arzola MD [facility] CPT-68351 Level 3 Est. Patient 15:00:28 CDT Capo Poe MD [facility] CPT-64973 Level 3 Est. Patient 08:20:19 CDT Zoran Arzola MD [facility] CPT-60084 Level 3 Est. Patient 09:22:21 CDT Capo Poe MD [facility] CPT-05103 Level 4 Est. Patient 10:21:30 MINERAL TECHNOLOGIST Capo Poe MD [facility] CPT-75283 Level 3 Est. Patient 17:08:51 MINERAL TECHNOLOGIST Zoran Arzola MD [facility] CPT-86013 Level 4 Est. Patient 09:44:42 CDT Capo Poe MD [facility] CPT-27618 Level 4 Est. Patient 10:39:29 CDT Capo Poe MD [facility] CPT-32272 Level 3 Est. Patient 17:45:23 CDT Zoran Arzola MD [facility] CPT-26403 Level 4 Est. Patient 08:50:44 CDT Capo Poe MD [facility] CPT-81556 Level 3 Est. Patient 10:39:51 MINERAL TECHNOLOGIST Capo Poe MD [facility] CPT-24386 Level 4 Est. Patient 09:44:24 MINERAL TECHNOLOGIST Capo Poe MD [facility] CPT-26506 Level 3 Est. Patient 14:48:42 MINERAL TECHNOLOGIST Zoran Arzola MD [facility] CPT-98029 Level 4 Est. Patient 10:24:02 CDT Capo Poe MD [facility] CPT-03575 Level 3 Est. Patient 15:42:00 CDT Maya WRIGHTP [facility] CPT-41525 Level 4 Est. Patient 13:34:15 CDT Capo Poe MD [facility] CPT-92309 Level 3 Est. Patient 15:32:10 MINERAL TECHNOLOGIST Zoran Arzola MD [facility] CPT-31224 Level 3 New Patient 17:17:19 MINERAL TECHNOLOGIST Zoran Arzola MD [facility] CPT-09949 Level 4 Est. Patient 10:25:01 MINERAL TECHNOLOGIST Capo Poe MD [facility] CPT-73820 Level 3 Est. Patient 10:10:42 CDT Zoran Arzola MD [facility] CPT-34591 Level 3 Est. Patient 22:30:02 CDT Zoran Arzola MD [facility] CPT-16962 Level 4 Est. Patient 09:54:20 CDT Capo Poe MD [facility] CPT-96289 Level 3 Est. Patient 10:48:30 CDT Capo Poe MD [facility] CPT-31792 Level 3 Est. Patient 11:24:45 CDT Capo Poe MD [facility] CPT-35842 Level 3 Est. Patient 15:23:48 MINERAL TECHNOLOGIST Capo Poe MD [facility] CPT-65366 Level 3 Est. Patient 15:10:03 MINERAL TECHNOLOGIST Capo Poe MD [facility] CPT-46388 Level 3 Est. Patient 16:18:40 CDT Zoran Arzola MD [facility] Procedures Code Procedure Name Date Entry Date Standard Description CPT-59965 Chest 2V Frontal and Lat - XRAY USE ONLY 11:51:24 CDT CPT-81101 Venipuncture Draw Fee 11:31:49 CDT CPT-54716 Hemoccult IFOBT - LAB USE ONLY 14:11:43 MINERAL TECHNOLOGIST CPT-46155 TPSA - LAB USE ONLY 10:37:52 MINERAL TECHNOLOGIST CPT-28033 TSH - LAB USE ONLY 10:37:51 MINERAL TECHNOLOGIST CPT-63028 CMP - LAB USE ONLY 10:37:51 MINERAL TECHNOLOGIST CPT-17084 CBC with Diff - LAB USE ONLY 10:37:51 MINERAL TECHNOLOGIST CPT-99583 Venipuncture Draw Fee 10:37:51 MINERAL TECHNOLOGIST CPT-000 Give Pneumovax 10:39:30 CDT CPT-81377 Venipuncture Draw Fee 09:32:34 CDT CPT-G0438 Initial Annual Wellness Exam 10:24:35 CDT CPT-08375 Venipuncture Draw Fee 09:46:29 CDT CPT-10999 Venipuncture Draw Fee 14:30:06 CDT CPT-56269 Venipuncture Draw Fee 10:58:22 CDT CPT-58240 Abd single AP View 08:32:00 CDT CPT-44647 Postop F/U Visit 21:13:08 CDT CPT-94794 Abd single AP View 15:50:24 CDT CPT-38975 Cystoscopy W/rem FB 15:21:28 CDT CPT-61869 Abd single AP View 14:06:45 CDT CPT-00699 Postop F/U Visit 09:48:32 CDT CPT-71483 Abd single AP View 13:58:26 CDT CPT-58726 Hip comp min 2V 10:27:18 MINERAL TECHNOLOGIST CPT-34486 Urine Dip (Floor Use Only) 13:41:01 MINERAL TECHNOLOGIST CPT-81118 Postop F/U Visit 11:17:48 CDT CPT-LR Lesion Removal 11:50:22 CDT CPT-OV Office Visit 11:50:22 CDT CPT-01925 Pneumovax 23 10:55:48 CDT CPT-10036 Administration single or combination vaccine inc oral 10 :55:48 CDT CPT-Cryo Cryotherapy 11:18:11 CDT CPT-OV Office Visit 11:18:11 CDT CPT-96884 LS spine AP and Lat 09:05:22 CDT CPT-73652 Bladder Scan 15:42:00 CDT CPT-43774 Cystoscopy 15:42:00 CDT CPT-OV Office Visit 16:37:19 MINERAL TECHNOLOGIST CPT-42606 Bladder Scan 15:32:10 MINERAL TECHNOLOGIST CPT-06872 Cystoscopy 15:32:10 MINERAL TECHNOLOGIST CPT-00969 Abd single AP View 14:05:59 MINERAL TECHNOLOGIST CPT-91515 Pill cam small bowel 09:48:39 MINERAL TECHNOLOGIST CPT-16838 Urine Dip (Floor Use Only) 17:17:19 MINERAL TECHNOLOGIST CPT-65555 Bladder Scan 17:17:19 MINERAL TECHNOLOGIST CPT-OV Office Visit 11:50:26 MINERAL TECHNOLOGIST CPT-59309 Bladder Scan 10:10:42 CDT CPT-49383 Venipuncture Draw Fee 09:14:04 CDT CPT-49837 Chest 2V Frontal and Lat 10:10:49 CDT CPT-28407 LS spine comp w obliq 11:50:11 CDT CPT-40662 Venipuncture Draw Fee 08:52:57 MINERAL TECHNOLOGIST CPT-59865 Cystoscopy W/rem FB 18:37:28 CDT CPT-53338 Abd single AP View 16:18:40 CDT CPT-24438 Abd compl w upright 17:30:59 CDT
--- OUTSIDE RECORDS SUMMARY | 2016-11-22 15:16 | XMS REPORT | Clinical Summary ---
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 Inactive Capo Poe MD UTI ICD-599.0 Inactive Capo Poe MD Hematuria ICD-599.70 Inactive Capo Poe MD Sciatica, right ICD-724.3 Inactive Capo Poe MD Renal Calculus ICD-592.9 Inactive Capo Poe MD Urethral calculus ICD-594.2 Inactive Capo Poe MD Chest pain ICD-786.50 Inactive Capo Poe MD Prostate cancer screening ICD-V76.44 Inactive Capo Poe MD Pruritic rash ICD-698.8 Inactive Capo Poe MD Elevated creatinine ICD-790.4 Inactive Capo Poe MD Medication List Medication Instructions Start Date Stop Date Generic Name NDC Status Provider Patient Instruction EQL IRON SUPPLEMENT THERAPY 325 MG ORAL TABS 1 tab po twice daily FERROUS SULFATE 13261807714 Active Jasmin TEIXEIRA Active D ORAL TABS 2000 iu weekly D ORAL TABS Active Capo Poe MD Active CITALOPRAM HYDROBROMIDE 20 MG TABS 1 tablet by mouth daily CITALOPRAM HYDROBROMIDE 46759918973 Active Capo Poe MD Active CLARITIN 5 MG ORAL CHEW 1 tab po q day LORATADINE 39565901239 Active Felisa TEIXEIRA Active VIIBRYD STARTER PACK 10 & 20 MG ORAL KIT 1 po qd as directed 2015 VILAZODONE HCL 50079990097 No Longer Active Felisa TEIXEIRA Active HYDROXYZINE HCL 25 MG TAB 1 po qHS PRN Insomnia HYDROXYZINE HCL 38800026884 Active Capo Poe MD Active LISINOPRIL 10 MG TABS 1 tablet by mouth daily LISINOPRIL 45022655435 Active Capo Poe MD Active LORTAB 7.5-325 MG ORAL TABS 1 po q 6 hr prn pain HYDROCODONE- ACETAMINOPHEN 98297476571 No Longer Active Capo Poe MD Active FLOMAX 0.4 MG CAPS Take one by mouth daily TAMSULOSIN HCL 76607639191 No Longer Active Capo Poe MD Active TRIAMCINOLONE ACETONIDE 0.1 % CREA Apply to affected areas TID for up to 2 weeks TRIAMCINOLONE ACETONIDE 42454431703 Active Capo Poe MD Active NICOTINE 14 MG/24HR TRANS PT24 Apply/Change q 24hr NICOTINE 26715808764 No Longer Active Capo Poe MD Active TRAMADOL HCL 50 MG TABS 1-2 tablets every 6 hours as needed for pain TRAMADOL HCL 69135189143 No Longer Active Capo Poe MD Active SERTRALINE HCL 100 MG ORAL TABS take 1 tab daily SERTRALINE HCL 50517116019 No Longer Active Capo Poe MD Active LISINOPRIL-HYDROCHLOROTHIAZIDE 10-12.5 MG TABS 0.5 tab by mouth daily LISINOPRIL-HYDROCHLOROTHIAZIDE 61634383529 No Longer Active Capo Poe MD Active OMEPRAZOLE 20 MG CPDR 1 tablet by mouth daily OMEPRAZOLE 51808170635 Active Capo Poe MD Active WELLBUTRIN SR 150 MG ORAL [id number] 1 po BID BUPROPION HCL 96333043418 No Longer Active Capo Poe MD Active MIRALAX PACK 1 po qd PRN Constipation POLYETHYLENE GLYCOL 3350 21247843156 Active Capo Poe MD Active DULERA 100-5 MCG/ACT AERO 2 puffs BID MOMETASONE FURO- FORMOTEROL FUM 62928468558 Active Capo Poe MD Active ZOLOFT 100 MG TABS 1 po daily SERTRALINE HCL 96221081277 No Longer Active Zoran Arzola MD Active FERROUS SULFATE 325 (65 FE) MG TABS 1 tablet by mouth daily FERROUS SULFATE 97733152683 No Longer Active Capo Poe MD Active HYDROCODONE-ACETAMINOPHEN 7.5-300 MG TABS take one every six hours HYDROCODONE-ACETAMINOPHEN 09763605984 No Longer Active Capo Poe MD Active TRIAMCINOLONE ACETONIDE 0.1 % OINT Apply to affected areas TID for up to 2 weeks TRIAMCINOLONE ACETONIDE 51995633887 No Longer Active Joe Vargas RN Active FERROUS SULFATE 325 (65 FE) MG TABS Take one by mouth daily FERROUS SULFATE 93384220362 No Longer Active Capo Poe MD Active TRIAMCINOLONE ACETONIDE 0.1 % OINT Apply to affected areas TID for up to 2 weeks TRIAMCINOLONE ACETONIDE 89003702512 No Longer Active Capo Poe MD Active ADULT ASPIRIN LOW STRENGTH 81 MG TBDP qd ASPIRIN 01443613144 Active Zoran Arzola MD Active ALEVE 220 MG TAB prn NAPROXEN SODIUM 24252873346 Active Capo Poe MD Active MACROBID 100 MG CAP 1 cap by mouth twice daily NITROFURANTOIN MONOHYD MACRO 20951588923 No Longer Active Dona Becker Active AZITHROMYCIN 250 MG TABS 2 po qd x 1 day, then 1 po qd x 4 days AZITHROMYCIN 70103966985 No Longer Active Capo Poe MD Active FISH OIL 500 MG CAPS by mouth twice a day OMEGA-3 FATTY ACIDS 48853256497 Active Capo Poe MD Active FLAXSEED OIL 1000 MG CAPS Take two by mouth daily FLAXSEED (LINSEED) 13233952937 Active Zoran Arzola MD Active RED YEAST RICE 600 MG CAPS Take two by mouth daily RED YEAST RICE EXTRACT 99191607396 Active Zoran Arzola MD Active MULTIVITAMINS CAPS Take one by mouth daily MULTIPLE VITAMIN 23967361586 Active Zoran Arzola MD Active ICAPS MV TABS 2 po daily MULTIPLE VITAMINS-MINERALS 24302921761 Active Jam Arnold DO Active MACROBID 100 MG CAP 1 cap by mouth twice daily MACROBID 100 MG CAP 5295007 NITROFURANTOIN MONOHYD MACRO Inactive FERROUS SULFATE 325 (65 FE) MG TABS Take one by mouth daily FERROUS SULFATE 325 (65 FE) MG TABS 976439 FERROUS SULFATE Inactive HYDROCODONE-ACETAMINOPHEN 7.5-300 MG TABS take one every six hours HYDROCODONE-ACETAMINOPHEN 7.5-300 MG TABS 967611 HYDROCODONE- ACETAMINOPHEN Inactive FERROUS SULFATE 325 (65 FE) MG TABS 1 tablet by mouth daily FERROUS SULFATE 325 (65 FE) MG TABS 514480 FERROUS SULFATE Inactive ZOLOFT 100 MG TABS 1 po daily ZOLOFT 100 MG TABS 486917 SERTRALINE HCL Inactive SERTRALINE HCL 100 MG ORAL TABS take 1 tab daily SERTRALINE HCL 100 MG ORAL TABS 535899 SERTRALINE HCL Inactive TRAMADOL HCL 50 MG TABS 1-2 tablets every 6 hours as needed for pain TRAMADOL HCL 50 MG TABS 020251 TRAMADOL HCL Inactive NICOTINE 14 MG/24HR TRANS PT24 Apply/Change q 24hr NICOTINE 14 MG/24HR TRANS PT24 868950 NICOTINE Inactive FLOMAX 0.4 MG CAPS Take one by mouth daily FLOMAX 0.4 MG CAPS 188236 TAMSULOSIN HCL Inactive LORTAB 7.5-325 MG ORAL TABS 1 po q 6 hr prn pain LORTAB 7.5- 325 MG ORAL TABS 119931 HYDROCODONE-ACETAMINOPHEN Inactive VIIBRYD STARTER PACK 10 & 20 MG ORAL KIT 1 po qd as directed 2015 VIIBRYD STARTER PACK 10 & 20 MG ORAL KIT VILAZODONE HCL Inactive AZITHROMYCIN 250 MG TABS 2 po qd x 1 day, then 1 po qd x 4 days AZITHROMYCIN 250 MG TABS 5630481 AZITHROMYCIN Inactive TRIAMCINOLONE ACETONIDE 0.1 % OINT Apply to affected areas TID for up to 2 weeks TRIAMCINOLONE ACETONIDE 0.1 % OINT 5013158 TRIAMCINOLONE ACETONIDE Inactive TRIAMCINOLONE ACETONIDE 0.1 % OINT Apply to affected areas TID for up to 2 weeks TRIAMCINOLONE ACETONIDE 0.1 % OINT 8170348 TRIAMCINOLONE ACETONIDE Inactive Advance Directives Directive Description Start Date PERMISSION TO SHARE DISCUSSED WITH PATIENT -- NO DECISION MADE Immunizations Vaccine Administration Date Value Standard Description pneumococcal immunization administered Pneumovax 23 [CVX33] pneumococcal polysaccharide vaccine, 23 valent Vital Signs Date Name Value Unit Range Description blood pressure, diastolic - 8462-4 85 mm[Hg] BP [place] blood pressure, systolic - 8480-6 152 mm[Hg] BP sys pulse rate E&M - 8867-4 64 /min Heart rate temperature E&M 97.7 [degF] Body temperature weight E&M - 3141-9 146.1 [lb_av] Weight Measured blood pressure, diastolic - 8462-4 54 mm[Hg] BP [place] blood pressure, systolic - 8480-6 134 mm[Hg] BP sys pulse rate E&M - 8867-4 71 /min Heart rate temperature E&M 97.4 [degF] Body temperature weight E&M - 3141-9 144.5 [lb_av] Weight Measured blood pressure, diastolic - 8462-4 68 mm[Hg] BP [place]in blood pressure, systolic - 8480-6 147 mm[Hg] BP sys pulse rate E&M - 8867-4 69 /min Heart rate temperature E&M 98 [degF] Body temperature weight E&M - 3141-9 147.5 [lb_av] Weight Measured blood pressure, diastolic - 8462-4 76 mm[Hg] BP austin blood pressure, systolic - 8480-6 133 mm[Hg] BP sys pulse rate E&M - 8867-4 76 /min Heart rate temperature E&M 96.9 [degF] Body temperature Diagnostic Results Date Name Value Unit Range Description Chart Maintenance: Hemoccult added to flow sheet - Chemistry occult blood, stool (E&M) Positive Lab Report: BUN, Creatinine - Chemistry urea nitrogen, blood 15 mg/dL 7-18 creatinine, serum 1.29 mg/dL 0.55-1.30 Lab Report: CBC W/DIFF, Comp. Metabolic Panel, Thyroid Stimulating Hormo ... - Chemistry sodium, serum 141 mmol/L 525-560 7287/01/27 carbon dioxide, venous blood 29.7 mmol/L 21.0-32.0 [...] % 11.0-15.0 platelet count 214 THOUSAND/UL 10*3/mm3 717-132 0058/03/31 mean platelet volume 8.4 fL 7.5-12.5 Encounters Code Encounter Date Provider Facility CPT-64450 Level 4 Est. Patient 09:26:11 [employer] Capo Poe MD [facility] CPT-21727 Level 4 Est. Patient 08:53:08 CDT Capo Poe MD [facility] CPT-22453 Level 4 Est. Patient 10:22:57 CDT Capo Poe MD [facility] CPT-57109 Level 4 Est. Patient 13:44:30 CDT Capo Poe MD [facility] CPT-43658 Level 3 Est. Patient 14:59:32 [employer] Capo Poe MD [facility] CPT-66333 Level 4 Est. Patient 10:46:15 [employer] Capo Poe MD [facility] CPT-50305 Level 3 Est. Patient 11:00:53 CDT Capo Poe MD [facility] CPT-10119 Level 3 Est. Patient 09:39:35 CDT Capo Poe MD [facility] CPT-05988 Level 3 Est. Patient 09:27:01 CDT Capo Poe MD [facility] CPT-96168 Level 3 Est. Patient 18:37:08 CDT Zoran Arzola MD [facility] CPT-76364 Level 3 Est. Patient 15:00:28 CDT Capo Poe MD [facility] CPT-44235 Level 3 Est. Patient 08:20:19 CDT Zoran Arzola MD [facility] CPT-69300 Level 3 Est. Patient 09:22:21 CDT Capo Poe MD [facility] CPT-07769 Level 4 Est. Patient 10:21:30 [employer] Capo Poe MD [facility] CPT-11154 Level 3 Est. Patient 17:08:51 [employer] Zoran Arzola MD [facility] CPT-87895 Level 4 Est. Patient 09:44:42 CDT Capo Poe MD [facility] CPT-63500 Level 4 Est. Patient 10:39:29 CDT Capo Poe MD [facility] CPT-67774 Level 3 Est. Patient 17:45:23 CDT Zoran Arzola MD [facility] CPT-90014 Level 4 Est. Patient 08:50:44 CDT Capo Poe MD [facility] CPT-71992 Level 3 Est. Patient 10:39:51 [employer] Capo Poe MD [facility] CPT-04189 Level 4 Est. Patient 09:44:24 [employer] Capo Poe MD [facility] CPT-01395 Level 3 Est. Patient 14:48:42 [employer] Zoran Arzola MD [facility] CPT-49562 Level 4 Est. Patient 10:24:02 CDT Capo Poe MD [facility] CPT-35397 Level 3 Est. Patient 15:42:00 CDT Maya DUKES [facility] CPT-71429 Level 4 Est. Patient 13:34:15 CDT Capo Poe MD [facility] CPT-97022 Level 3 Est. Patient 15:32:10 [employer] Zoran Arzola MD [facility] CPT-06549 Level 3 New Patient 17:17:19 [employer] Zoran Arzola MD [facility] CPT-98662 Level 4 Est. Patient 10:25:01 [employer] Capo Poe MD [facility] CPT-42456 Level 3 Est. Patient 10:10:42 CDT Zoran Arzola MD [facility] CPT-35417 Level 3 Est. Patient 22:30:02 CDT Zoran Arzola MD [facility] CPT-34652 Level 4 Est. Patient 09:54:20 CDT Capo Poe MD [facility] CPT-89903 Level 3 Est. Patient 10:48:30 CDT Capo Poe MD [facility] CPT-02281 Level 3 Est. Patient 11:24:45 CDT Capo Poe MD [facility] CPT-18840 Level 3 Est. Patient 15:23:48 [employer] Capo Poe MD [facility] CPT-40491 Level 3 Est. Patient 15:10:03 [employer] Capo Poe MD [facility] CPT-10692 Level 3 Est. Patient 16:18:40 CDT Zoran Arzola MD [facility] Procedures Code Procedure Name Date Entry Date Standard Description CPT-19290 Hemoccult IFOBT - LAB USE ONLY 14:11:43 [employer] CPT-66878 TPSA - LAB USE ONLY 10:37:52 [employer] CPT-77904 TSH - LAB USE ONLY 10:37:51 [employer] CPT-96505 CMP - LAB USE ONLY 10:37:51 [employer] CPT-38815 CBC with Diff - LAB USE ONLY 10:37:51 [employer] CPT-82303 Venipuncture Draw Fee 10:37:51 [employer] CPT-000 Give Pneumovax 10:39:30 CDT CPT-53497 Venipuncture Draw Fee 09:32:34 CDT CPT-G0438 Initial Annual Wellness Exam 10:24:35 CDT CPT-22681 Venipuncture Draw Fee 09:46:29 CDT CPT-37384 Venipuncture Draw Fee 14:30:06 CDT CPT-67224 Venipuncture Draw Fee 10:58:22 CDT CPT-81861 Abd single AP View 08:32:00 CDT CPT-86616 Postop F/U Visit 21:13:08 CDT CPT-62586 Abd single AP View 15:50:24 CDT CPT-63820 Cystoscopy W/rem FB 15:21:28 CDT CPT-33005 Abd single AP View 14:06:45 CDT CPT-62759 Postop F/U Visit 09:48:32 CDT CPT-64601 Abd single AP View 13:58:26 CDT CPT-43661 Hip comp min 2V 10:27:18 [employer] CPT-28278 Urine Dip (Floor Use Only) 13:41:01 [employer] CPT-08679 Postop F/U Visit 11:17:48 CDT CPT-LR Lesion Removal 11:50:22 CDT CPT-OV Office Visit 11:50:22 CDT CPT-31077 Pneumovax 23 10:55:48 CDT CPT-10335 Administration single or combination vaccine inc oral 10 :55:48 CDT CPT-Cryo Cryotherapy 11:18:11 CDT CPT-OV Office Visit 11:18:11 CDT CPT-23375 LS spine AP and Lat 09:05:22 CDT CPT-75361 Bladder Scan 15:42:00 CDT CPT-79517 Cystoscopy 15:42:00 CDT CPT-OV Office Visit 16:37:19 [employer] CPT-28373 Bladder Scan 15:32:10 [employer] CPT-41793 Cystoscopy 15:32:10 [employer] CPT-47886 Abd single AP View 14:05:59 [employer] CPT-75084 Pill cam small bowel 09:48:39 [employer] CPT-05366 Urine Dip (Floor Use Only) 17:17:19 [employer] CPT-39118 Bladder Scan 17:17:19 [employer] CPT-OV Office Visit 11:50:26 [employer] CPT-83480 Bladder Scan 10:10:42 CDT CPT-21398 Venipuncture Draw Fee 09:14:04 CDT CPT-48739 Chest 2V Frontal and Lat 10:10:49 CDT CPT-71321 LS spine comp w obliq 11:50:11 CDT CPT-92723 Venipuncture Draw Fee 08:52:57 [employer] CPT-82238 Cystoscopy W/rem FB 18:37:28 CDT CPT-60070 Abd single AP View 16:18:40 CDT CPT-67833 Abd compl w upright 17:30:59 CDT
--- OUTSIDE RECORDS SUMMARY | 2016-11-22 15:17 | XMS REPORT ---
Author [facility] Organization [facility] [employer] [facility] Address [address] [place] [address] Phone [phone] Summary purpose TRANSITION OF CARE AUTO GENERATION Chief Complaint and Reason for Visit No authorized Reason for Visit (Admitting Diagnosis) is available for this visit. Problem list No authorized problems tracked for continuity of care are available for this visit. Encounters No authorized problems tracked for encounter diagnoses are available for this visit. Medications No medications recorded for this patient visit Allergies, adverse reactions, alerts Allergen Category Ingredient Status Reaction Severity Onset Antbdhh-Hrp-Qfi Reductase Inhibitors Drug Allergy Fkgqkwm-Jed-Thi Reductase Inhibitors Confirmed or Verified BACK PAIN morphine Drug Allergy morphine Confirmed or Verified Swelling Mild Adult Nitrofurantoin Drug Allergy Nitrofurantoin Confirmed or Verified Immunizations No immunizations recorded for this patient visit Relevant diagnostic tests and/or laboratory data RESULTS Radiology Results [id number]:29:00 CT RENAL STONE LESLIE PACs Image DATE OF EXAM: Sep 10 2014 [id number] RENAL STONE PROTOCOL WO CONTR : RADIOLOGY REPORT DATE OF SERVICE: 09/10/14 HISTORY: Right flank pain NONCONTRAST CT ABDOMEN AND PELVIS RENAL STONE [id number] HOURS Axial scans were reconstructed at 2.5 mm intervals. Coronal reformatted images were performed on the CT scanner. No contrast was administered. There are multiple right renal and right renal pelvic calculi. There is a 10 x 12.5 x 14.5 mm calculus centrally in the right renal pelvis. There is a 10 x 12 mm calculus in the lower pole calyx. At least 6 additional smaller stones are present in the right kidney. There are no renal masses. There are no left renal calculi. There is a tiny opaque calculus in the proximal third of the right ureter measuring approximately 1-1.5 mm. Best visualized on series 2 image 76. There is a 2 mm calculus in the posterior aspect of the bladder. The liver, spleen, and pancreas are normal. There is a large hiatal hernia. The abdominal aorta is atherosclerotic with moderate ectasia measuring up to 2.5 cm in diameter. There are no inflammatory changes. There is sigmoid diverticulosis. There are no pelvic masses. IMPRESSION: Multiple right renal calyceal and renal pelvic calculi as above. Tiny opaque calculus in the proximal third of the right ureter. 2 mm calculus within the bladder. MD DIANE Mueller/janae09/10/2014 11:03:09/10/2014 11:14:26 cc:Dr. Salomón Arzola This document has been electronically Signed by: On: DATE OF EXAM: Sep 10 2014 [id number] RENAL STONE PROTOCOL WO CONTR : RADIOLOGY REPORT DATE OF SERVICE: 09/10/14 HISTORY: Right flank pain NONCONTRAST CT ABDOMEN AND PELVIS RENAL STONE [id number] HOURS Axial scans were reconstructed at 2.5 mm intervals. Coronal reformatted images were performed on the CT scanner. No contrast was administered. There are multiple right renal and right renal pelvic calculi. There is a 10 x 12.5 x 14.5 mm calculus centrally in the right renal pelvis. There is a 10 x 12 mm calculus in the lower pole calyx. At least 6 additional smaller stones are present in the right kidney. There are no renal masses. There are no left renal calculi. There is a tiny opaque calculus in the proximal third of the right ureter measuring approximately 1-1.5 mm. Best visualized on series 2 image 76. There is a 2 mm calculus in the posterior aspect of the bladder. The liver, spleen, and pancreas are normal. There is a large hiatal hernia. The abdominal aorta is atherosclerotic with moderate ectasia measuring up to 2.5 cm in diameter. There are no inflammatory changes. There is sigmoid diverticulosis. There are no pelvic masses. IMPRESSION: Multiple right renal calyceal and renal pelvic calculi as above. Tiny opaque calculus in the proximal third of the right ureter. 2 mm calculus within the bladder. MD DIANE Mueller/janae09/10/2014 11:03: / 09/10/2014 11:14:26 cc:Dr. Salomón Arzola This document has been electronically Signed by: ANEGLIA SHUKLA On: Sep 10 2014 11:29A Result Amended on 2014-09-10 at 11:29:33. Previous status was [place]. History of procedures No procedures recorded for this patient visit. Functional status No functional or cognitive status observations are available for this visit. Vital signs No authorized vital signs are available for this visit. Social history No Social History or smoking status observations were recorded for this visit. ( Unknown if ever smoked.) Treatment Plan No treatment plan text is available for this visit. Hospital discharge instructions No discharge instruction text is available for this visit.
--- OUTSIDE RECORDS SUMMARY | 2016-11-22 15:17 | XMS REPORT | Clinical Summary ---
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 Simin [...] MG TABS 1 daily for infection LEVOFLOXACIN 83248246755 Active Leanna Baker APRN Active AZITHROMYCIN 250 MG ORAL TABS 2 po qd x 1, then 1 po qd x 4 AZITHROMYCIN 28305019143 Active Capo Poe MD Active PREDNISONE 20 MG ORAL TABS 2 po qd x 5 days PREDNISONE 21159997623 No Longer Active Capo Poe MD Active CARAFATE 1 GM ORAL TABS 1 tid SUCRALFATE 18651036725 Active Capo Poe MD Active RANITIDINE HCL 150 MG ORAL TABS 1 bid RANITIDINE HCL 05958887746 Active Capo Poe MD Active MULTIVITAMINS CAPS Take one by mouth daily MULTIPLE VITAMIN 21776279298 No Longer Active Capo Poe MD Active LISINOPRIL 10 MG TABS 1 tablet by mouth daily LISINOPRIL 01755001839 No Longer Active Capo Poe MD Active EQL IRON SUPPLEMENT THERAPY 325 MG ORAL TABS 1 tab po twice daily FERROUS SULFATE 40027458743 Active Jasmin Arboledalas RMA Active D ORAL TABS 2000 iu weekly D ORAL TABS Active Capo Poe MD Active CITALOPRAM HYDROBROMIDE 20 MG TABS 1 tablet by mouth daily CITALOPRAM HYDROBROMIDE 66460529913 Active Capo Poe MD Active CLARITIN 5 MG ORAL CHEW 1 tab po q day LORATADINE 05159722428 Active Felisa Daphney RMA Active VIIBRYD STARTER PACK 10 & 20 MG ORAL KIT 1 po qd as directed 2015 VILAZODONE HCL 77249413235 No Longer Active Felisa Daphney RMA Active HYDROXYZINE HCL 25 MG TAB 1 po qHS PRN Insomnia HYDROXYZINE HCL 67512249574 Active Capo Poe MD Active LORTAB 7.5-325 MG ORAL TABS 1 po q 6 hr prn pain HYDROCODONE- ACETAMINOPHEN 73190874436 No Longer Active Capo Poe MD Active FLOMAX 0.4 MG CAPS Take one by mouth daily TAMSULOSIN HCL 16781238535 No Longer Active Capo Poe MD Active TRIAMCINOLONE ACETONIDE 0.1 % CREA Apply to affected areas TID for up to 2 weeks TRIAMCINOLONE ACETONIDE 33355476190 Active Capo Poe MD Active NICOTINE 14 MG/24HR TRANS PT24 Apply/Change q 24hr NICOTINE 05384299774 No Longer Active Capo Poe MD Active TRAMADOL HCL 50 MG TABS 1-2 tablets every 6 hours as needed for pain TRAMADOL HCL 17817594610 No Longer Active Capo Poe MD Active SERTRALINE HCL 100 MG ORAL TABS take 1 tab daily SERTRALINE HCL 16614234019 No Longer Active Capo Poe MD Active LISINOPRIL-HYDROCHLOROTHIAZIDE 10-12.5 MG TABS 0.5 tab by mouth daily LISINOPRIL-HYDROCHLOROTHIAZIDE 17948979723 No Longer Active Capo Poe MD Active OMEPRAZOLE 20 MG CPDR 1 tablet by mouth daily OMEPRAZOLE 23156239090 Active Capo Peo MD Active WELLBUTRIN SR 150 MG ORAL [id number] 1 po BID BUPROPION HCL 31109064258 No Longer Active Capo Poe MD Active MIRALAX PACK 1 po qd PRN Constipation POLYETHYLENE GLYCOL 3350 67524440667 Active Capo Poe MD Active DULERA 100-5 MCG/ACT AERO 2 puffs BID MOMETASONE FURO- FORMOTEROL FUM 00478073734 Active Capo Poe MD Active ZOLOFT 100 MG TABS 1 po daily SERTRALINE HCL 17106885726 No Longer Active Zoran Arzola MD Active FERROUS SULFATE 325 (65 FE) MG TABS 1 tablet by mouth daily FERROUS SULFATE 26677984766 No Longer Active Capo Poe MD Active HYDROCODONE-ACETAMINOPHEN 7.5-300 MG TABS take one every six hours HYDROCODONE-ACETAMINOPHEN 23229434612 No Longer Active Capo Poe MD Active TRIAMCINOLONE ACETONIDE 0.1 % OINT Apply to affected areas TID for up to 2 weeks TRIAMCINOLONE ACETONIDE 92054972951 No Longer Active Joe Vargas RN Active FERROUS SULFATE 325 (65 FE) MG TABS Take one by mouth daily FERROUS SULFATE 77237518721 No Longer Active Capo Poe MD Active TRIAMCINOLONE ACETONIDE 0.1 % OINT Apply to affected areas TID for up to 2 weeks TRIAMCINOLONE ACETONIDE 75685108131 No Longer Active Capo Poe MD Active ADULT ASPIRIN LOW STRENGTH 81 MG TBDP qd ASPIRIN 24934902918 Active Zoran Arzola MD Active ALEVE 220 MG TAB prn NAPROXEN SODIUM 60868692062 Active Capo Poe MD Active MACROBID 100 MG CAP 1 cap by mouth twice daily NITROFURANTOIN MONOHYD MACRO 01323625954 No Longer Active Dona Becker Active AZITHROMYCIN 250 MG TABS 2 po qd x 1 day, then 1 po qd x 4 days AZITHROMYCIN 29818259945 No Longer Active Capo Poe MD Active FISH OIL 500 MG CAPS by mouth twice a day OMEGA-3 FATTY ACIDS 72932878545 Active Capo Poe MD Active FLAXSEED OIL 1000 MG CAPS Take two by mouth daily FLAXSEED (LINSEED) 23159600054 Active Zoran Arzola MD Active RED YEAST RICE 600 MG CAPS Take two by mouth daily RED YEAST RICE EXTRACT 09733158309 Active Zoran Arzola MD Active ICAPS MV TABS 2 po daily MULTIPLE VITAMINS-MINERALS 97838292995 Active Jam Arnold DO Active MACROBID 100 MG CAP 1 cap by mouth twice daily MACROBID 100 MG CAP 2122363 NITROFURANTOIN MONOHYD MACRO Inactive FERROUS SULFATE 325 (65 FE) MG TABS Take one by mouth daily FERROUS SULFATE 325 (65 FE) MG TABS 399377 FERROUS SULFATE Inactive HYDROCODONE-ACETAMINOPHEN 7.5-300 MG TABS take one every six hours HYDROCODONE-ACETAMINOPHEN 7.5-300 MG TABS 948261 HYDROCODONE- ACETAMINOPHEN Inactive FERROUS SULFATE 325 (65 FE) MG TABS 1 tablet by mouth daily FERROUS SULFATE 325 (65 FE) MG TABS 787828 FERROUS SULFATE Inactive ZOLOFT 100 MG TABS 1 po daily ZOLOFT 100 MG TABS 787542 SERTRALINE HCL Inactive SERTRALINE HCL 100 MG ORAL TABS take 1 tab daily SERTRALINE HCL 100 MG ORAL TABS 849399 SERTRALINE HCL Inactive TRAMADOL HCL 50 MG TABS 1-2 tablets every 6 hours as needed for pain TRAMADOL HCL 50 MG TABS 811412 TRAMADOL HCL Inactive NICOTINE 14 MG/24HR TRANS PT24 Apply/Change q 24hr NICOTINE 14 MG/24HR TRANS PT24 015620 NICOTINE Inactive FLOMAX 0.4 MG CAPS Take one by mouth daily FLOMAX 0.4 MG CAPS 536445 TAMSULOSIN HCL Inactive LORTAB 7.5-325 MG ORAL TABS 1 po q 6 hr prn pain LORTAB 7.5- 325 MG ORAL TABS 287601 HYDROCODONE-ACETAMINOPHEN Inactive VIIBRYD STARTER PACK 10 & 20 MG ORAL KIT 1 po qd as directed 2015 VIIBRYD STARTER PACK 10 & 20 MG ORAL KIT VILAZODONE HCL Inactive LISINOPRIL 10 MG TABS 1 tablet by mouth daily LISINOPRIL 10 MG TABS 374234 LISINOPRIL Inactive MULTIVITAMINS CAPS Take one by mouth daily MULTIVITAMINS CAPS MULTIPLE VITAMIN Inactive AZITHROMYCIN 250 MG TABS 2 po qd x 1 day, then 1 po qd x 4 days AZITHROMYCIN 250 MG TABS 2495528 AZITHROMYCIN Inactive TRIAMCINOLONE ACETONIDE 0.1 % OINT Apply to affected areas TID for up to 2 weeks TRIAMCINOLONE ACETONIDE 0.1 % OINT 2780161 TRIAMCINOLONE ACETONIDE Inactive TRIAMCINOLONE ACETONIDE 0.1 % OINT Apply to affected areas TID for up to 2 weeks TRIAMCINOLONE ACETONIDE 0.1 % OINT 0993528 TRIAMCINOLONE ACETONIDE Inactive PREDNISONE 20 MG ORAL TABS 2 po qd x 5 days PREDNISONE 20 MG ORAL TABS 353206 PREDNISONE Inactive Advance Directives Directive Description Start [...] Panel - Chemistry sodium, serum 137 mmol/L 276-647 2907/07/26 carbon dioxide, venous blood 27.3 mmol/L 21.0-32.0 [...] ... - Chemistry sodium, serum 141 mmol/L 270-302 2403/01/27 carbon dioxide, venous blood 29.7 mmol/L 21.0-32.0 [...] % 11.0-15.0 platelet count 214 THOUSAND/UL 10*3/mm3 112-066 9537/03/31 mean platelet volume 8.4 fL 7.5-12.5 Encounters Code Encounter Date Provider Facility CPT-17072 Level 3 Est. Patient 11:31:49 CDT Leanna Baker APRN [facility] CPT-38448 Level 3 Est. Patient 09:44:06 CDT Capo Poe MD [facility] CPT-20307 Level 4 Est. Patient 09:26:11 PREMIUM AUDITOR Capo Poe MD [facility] CPT-69121 Level 4 Est. Patient 08:53:08 CDT Capo Poe MD [facility] CPT-69679 Level 4 Est. Patient 10:22:57 CDT Capo Poe MD [facility] CPT-27737 Level 4 Est. Patient 13:44:30 CDT Capo Poe MD [facility] CPT-16577 Level 3 Est. Patient 14:59:32 PREMIUM AUDITOR Capo Poe MD [facility] CPT-39895 Level 4 Est. Patient 10:46:15 PREMIUM AUDITOR Capo Poe MD [facility] CPT-85265 Level 3 Est. Patient 11:00:53 CDT Capo Poe MD [facility] CPT-12220 Level 3 Est. Patient 09:39:35 CDT Capo Poe MD [facility] CPT-36862 Level 3 Est. Patient 09:27:01 CDT Capo Poe MD [facility] CPT-64807 Level 3 Est. Patient 18:37:08 CDT Zoran Arzola MD [facility] CPT-14154 Level 3 Est. Patient 15:00:28 CDT Capo Poe MD [facility] CPT-59514 Level 3 Est. Patient 08:20:19 CDT Zoran Arzola MD [facility] CPT-02956 Level 3 Est. Patient 09:22:21 CDT Capo Poe MD [facility] CPT-81674 Level 4 Est. Patient 10:21:30 PREMIUM AUDITOR Capo Poe MD [facility] CPT-91195 Level 3 Est. Patient 17:08:51 PREMIUM AUDITOR Zoran Arzoal MD [facility] CPT-94883 Level 4 Est. Patient 09:44:42 CDT Capo Poe MD [facility] CPT-79102 Level 4 Est. Patient 10:39:29 CDT Capo Poe MD [facility] CPT-69808 Level 3 Est. Patient 17:45:23 CDT Zoran Arzola MD [facility] CPT-46677 Level 4 Est. Patient 08:50:44 CDT Capo Poe MD [facility] CPT-20996 Level 3 Est. Patient 10:39:51 PREMIUM AUDITOR Capo Poe MD [facility] CPT-46773 Level 4 Est. Patient 09:44:24 PREMIUM AUDITOR Capo Poe MD [facility] CPT-85297 Level 3 Est. Patient 14:48:42 PREMIUM AUDITOR Zoran Arzola MD [facility] CPT-36443 Level 4 Est. Patient 10:24:02 CDT Capo Poe MD [facility] CPT-04089 Level 3 Est. Patient 15:42:00 CDT Maya WRIGHTP [facility] CPT-49037 Level 4 Est. Patient 13:34:15 CDT Capo Poe MD [facility] CPT-34242 Level 3 Est. Patient 15:32:10 PREMIUM AUDITOR Zoran Arzola MD [facility] CPT-29138 Level 3 New Patient 17:17:19 PREMIUM AUDITOR Zoran Arzola MD [facility] CPT-53245 Level 4 Est. Patient 10:25:01 PREMIUM AUDITOR Capo Poe MD [facility] CPT-92425 Level 3 Est. Patient 10:10:42 CDT Zoran Arzola MD [facility] CPT-48910 Level 3 Est. Patient 22:30:02 CDT Zoran Arzola MD [facility] CPT-73163 Level 4 Est. Patient 09:54:20 CDT Capo Poe MD [facility] CPT-01320 Level 3 Est. Patient 10:48:30 CDT Capo Poe MD [facility] CPT-09340 Level 3 Est. Patient 11:24:45 CDT Capo Poe MD [facility] CPT-55841 Level 3 Est. Patient 15:23:48 PREMIUM AUDITOR Capo Poe MD [facility] CPT-88977 Level 3 Est. Patient 15:10:03 PREMIUM AUDITOR Capo Poe MD [facility] CPT-58795 Level 3 Est. Patient 16:18:40 CDT Zoran Arzola MD [facility] Procedures Code Procedure Name Date Entry Date Standard Description CPT-20457 Chest 2V Frontal and Lat - XRAY USE ONLY 11:51:24 CDT CPT-85167 Venipuncture Draw Fee 11:31:49 CDT CPT-35318 Hemoccult IFOBT - LAB USE ONLY 14:11:43 PREMIUM AUDITOR CPT-08000 TPSA - LAB USE ONLY 10:37:52 PREMIUM AUDITOR CPT-54001 TSH - LAB USE ONLY 10:37:51 PREMIUM AUDITOR CPT-40745 CMP - LAB USE ONLY 10:37:51 PREMIUM AUDITOR CPT-14485 CBC with Diff - LAB USE ONLY 10:37:51 PREMIUM AUDITOR CPT-04275 Venipuncture Draw Fee 10:37:51 PREMIUM AUDITOR CPT-000 Give Pneumovax 10:39:30 CDT CPT-44636 Venipuncture Draw Fee 09:32:34 CDT CPT-G0438 Initial Annual Wellness Exam 10:24:35 CDT CPT-57353 Venipuncture Draw Fee 09:46:29 CDT CPT-05822 Venipuncture Draw Fee 14:30:06 CDT CPT-97934 Venipuncture Draw Fee 10:58:22 CDT CPT-15981 Abd single AP View 08:32:00 CDT CPT-30807 Postop F/U Visit 21:13:08 CDT CPT-12334 Abd single AP View 15:50:24 CDT CPT-82339 Cystoscopy W/rem FB 15:21:28 CDT CPT-56910 Abd single AP View 14:06:45 CDT CPT-10614 Postop F/U Visit 09:48:32 CDT CPT-35987 Abd single AP View 13:58:26 CDT CPT-84209 Hip comp min 2V 10:27:18 PREMIUM AUDITOR CPT-02315 Urine Dip (Floor Use Only) 13:41:01 PREMIUM AUDITOR CPT-09756 Postop F/U Visit 11:17:48 CDT CPT-LR Lesion Removal 11:50:22 CDT CPT-OV Office Visit 11:50:22 CDT CPT-60905 Pneumovax 23 10:55:48 CDT CPT-68832 Administration single or combination vaccine inc oral 10 :55:48 CDT CPT-Cryo Cryotherapy 11:18:11 CDT CPT-OV Office Visit 11:18:11 CDT CPT-69421 LS spine AP and Lat 09:05:22 CDT CPT-98510 Bladder Scan 15:42:00 CDT CPT-79810 Cystoscopy 15:42:00 CDT CPT-OV Office Visit 16:37:19 PREMIUM AUDITOR CPT-97640 Bladder Scan 15:32:10 PREMIUM AUDITOR CPT-89567 Cystoscopy 15:32:10 PREMIUM AUDITOR CPT-41090 Abd single AP View 14:05:59 PREMIUM AUDITOR CPT-29517 Pill cam small bowel 09:48:39 PREMIUM AUDITOR CPT-07213 Urine Dip (Floor Use Only) 17:17:19 PREMIUM AUDITOR CPT-34782 Bladder Scan 17:17:19 PREMIUM AUDITOR CPT-OV Office Visit 11:50:26 PREMIUM AUDITOR CPT-91623 Bladder Scan 10:10:42 CDT CPT-12552 Venipuncture Draw Fee 09:14:04 CDT CPT-60945 Chest 2V Frontal and Lat 10:10:49 CDT CPT-58875 LS spine comp w obliq 11:50:11 CDT CPT-65139 Venipuncture Draw Fee 08:52:57 PREMIUM AUDITOR CPT-17514 Cystoscopy W/rem FB 18:37:28 CDT CPT-11793 Abd single AP View 16:18:40 CDT CPT-92140 Abd compl w upright 17:30:59 CDT
--- OUTSIDE RECORDS SUMMARY | 2016-11-22 15:18 | XMS REPORT | Clinical Summary ---
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 Clyde Poe MD UTI ICD-599.0 Clyde Poe MD Hematuria ICD-599.70 Inactive Capo Poe [...] Generic Name NDC Status Provider Patient Instruction D ORAL TABS 2000 iu weekly D ORAL TABS Active Capo Poe MD Active CITALOPRAM HYDROBROMIDE 20 MG TABS 1 tablet by mouth daily CITALOPRAM HYDROBROMIDE 36832538738 Active Capo Poe MD Active CLARITIN 5 MG ORAL CHEW 1 tab po q day LORATADINE 03055435549 Active Felisa Daphney TEIXEIRA Active VIIBRYD STARTER PACK 10 & 20 MG ORAL KIT 1 po qd as directed 2015 VILAZODONE HCL 32331497212 No Longer Active Felisa TEIXEIRA Active HYDROXYZINE HCL 25 MG TAB 1 po qHS PRN Insomnia HYDROXYZINE HCL 97765554966 Active Capo Poe MD Active LISINOPRIL 10 MG TABS 1 tablet by mouth daily LISINOPRIL 39249858211 Active Capo Poe MD Active LORTAB 7.5-325 MG ORAL TABS 1 po q 6 hr prn pain HYDROCODONE- ACETAMINOPHEN 14232490002 No Longer Active Capo Poe MD Active FLOMAX 0.4 MG CAPS Take one by mouth daily TAMSULOSIN HCL 65852305697 No Longer Active Capo Poe MD Active TRIAMCINOLONE ACETONIDE 0.1 % CREA Apply to affected areas TID for up to 2 weeks TRIAMCINOLONE ACETONIDE 87241910399 Active Capo Poe MD Active NICOTINE 14 MG/24HR TRANS PT24 Apply/Change q 24hr NICOTINE 83859424525 No Longer Active Capo Poe MD Active TRAMADOL HCL 50 MG TABS 1-2 tablets every 6 hours as needed for pain TRAMADOL HCL 44434483780 No Longer Active Capo Poe MD Active SERTRALINE HCL 100 MG ORAL TABS take 1 tab daily SERTRALINE HCL 92289702346 No Longer Active Capo Poe MD Active LISINOPRIL-HYDROCHLOROTHIAZIDE 10-12.5 MG TABS 0.5 tab by mouth daily LISINOPRIL-HYDROCHLOROTHIAZIDE 18493668279 No Longer Active Capo Poe MD Active OMEPRAZOLE 20 MG CPDR 1 tablet by mouth daily OMEPRAZOLE 80701382021 Active Capo Poe MD Active WELLBUTRIN SR 150 MG ORAL [id number] 1 po BID BUPROPION HCL 20480733219 No Longer Active Capo Poe MD Active MIRALAX PACK 1 po qd PRN Constipation POLYETHYLENE GLYCOL 3350 54572687509 Active Capo Poe MD Active DULERA 100-5 MCG/ACT AERO 2 puffs BID MOMETASONE FURO- FORMOTEROL FUM 52072489010 Active Capo Poe MD Active ZOLOFT 100 MG TABS 1 po daily SERTRALINE HCL 35533691783 No Longer Active Zoran Arzola MD Active FERROUS SULFATE 325 (65 FE) MG TABS 1 tablet by mouth daily FERROUS SULFATE 46532173381 No Longer Active Capo Poe MD Active HYDROCODONE-ACETAMINOPHEN 7.5-300 MG TABS take one every six hours HYDROCODONE-ACETAMINOPHEN 88455499626 No Longer Active Capo Poe MD Active TRIAMCINOLONE ACETONIDE 0.1 % OINT Apply to affected areas TID for up to 2 weeks TRIAMCINOLONE ACETONIDE 95082422160 No Longer Active Joe Vargas RN Active FERROUS SULFATE 325 (65 FE) MG TABS Take one by mouth daily FERROUS SULFATE 58696361646 No Longer Active Capo Poe MD Active TRIAMCINOLONE ACETONIDE 0.1 % OINT Apply to affected areas TID for up to 2 weeks TRIAMCINOLONE ACETONIDE 23441108219 No Longer Active Capo Poe MD Active ADULT ASPIRIN LOW STRENGTH 81 MG TBDP qd ASPIRIN 78989914058 Active Zoran Arzola MD Active ALEVE 220 MG TAB prn NAPROXEN SODIUM 29683697758 Active Capo Poe MD Active MACROBID 100 MG CAP 1 cap by mouth twice daily NITROFURANTOIN MONOHYD MACRO 00953857758 No Longer Active Dona Becker Active AZITHROMYCIN 250 MG TABS 2 po qd x 1 day, then 1 po qd x 4 days AZITHROMYCIN 54170389296 No Longer Active Capo Poe MD Active FISH OIL 500 MG CAPS by mouth twice a day OMEGA-3 FATTY ACIDS 22715774154 Active Capo Poe MD Active FLAXSEED OIL 1000 MG CAPS Take two by mouth daily FLAXSEED (LINSEED) 13064939437 Active Zoran Arzola MD Active RED YEAST RICE 600 MG CAPS Take two by mouth daily RED YEAST RICE EXTRACT 14381685245 Active Zoran Arzola MD Active MULTIVITAMINS CAPS Take one by mouth daily MULTIPLE VITAMIN 85447670998 Elza Arzola MD Active ICAPS MV TABS 2 po daily MULTIPLE VITAMINS-MINERALS 48142119527 Active Jam Arnold DO Active MACROBID 100 MG CAP 1 cap by mouth twice daily MACROBID 100 MG CAP 9944367 NITROFURANTOIN MONOHYD MACRO Inactive FERROUS SULFATE 325 (65 FE) MG TABS Take one by mouth daily FERROUS SULFATE 325 (65 FE) MG TABS 141320 FERROUS SULFATE Inactive HYDROCODONE-ACETAMINOPHEN 7.5-300 MG TABS take one every six hours HYDROCODONE-ACETAMINOPHEN 7.5-300 MG TABS 059132 HYDROCODONE- ACETAMINOPHEN Inactive FERROUS SULFATE 325 (65 FE) MG TABS 1 tablet by mouth daily FERROUS SULFATE 325 (65 FE) MG TABS 211230 FERROUS SULFATE Inactive ZOLOFT 100 MG TABS 1 po daily ZOLOFT 100 MG TABS 878001 SERTRALINE HCL Inactive SERTRALINE HCL 100 MG ORAL TABS take 1 tab daily SERTRALINE HCL 100 MG ORAL TABS 792525 SERTRALINE HCL Inactive TRAMADOL HCL 50 MG TABS 1-2 tablets every 6 hours as needed for pain TRAMADOL HCL 50 MG TABS 081137 TRAMADOL HCL Inactive NICOTINE 14 MG/24HR TRANS PT24 Apply/Change q 24hr NICOTINE 14 MG/24HR TRANS PT24 838046 NICOTINE Inactive FLOMAX 0.4 MG CAPS Take one by mouth daily FLOMAX 0.4 MG CAPS 979972 TAMSULOSIN HCL Inactive LORTAB 7.5-325 MG ORAL TABS 1 po q 6 hr prn pain LORTAB 7.5- 325 MG ORAL TABS 429239 HYDROCODONE-ACETAMINOPHEN Inactive VIIBRYD STARTER PACK 10 & 20 MG ORAL KIT 1 po qd as directed 2015 VIIBRYD STARTER PACK 10 & 20 MG ORAL KIT VILAZODONE HCL Inactive AZITHROMYCIN 250 MG TABS 2 po qd x 1 day, then 1 po qd x 4 days AZITHROMYCIN 250 MG TABS 7073160 AZITHROMYCIN Inactive TRIAMCINOLONE ACETONIDE 0.1 % OINT Apply to affected areas TID for up to 2 weeks TRIAMCINOLONE ACETONIDE 0.1 % OINT 6229500 TRIAMCINOLONE ACETONIDE Inactive TRIAMCINOLONE ACETONIDE 0.1 % OINT Apply to affected areas TID for up to 2 weeks TRIAMCINOLONE ACETONIDE 0.1 % OINT 4252384 TRIAMCINOLONE ACETONIDE Inactive Advance Directives Directive Description [...] rate temperature E&M 96.9 [degF] Body temperature blood pressure, diastolic - 8462-4 77 mm[Hg] BP [place] blood pressure, systolic - 8480-6 112 mm[Hg] BP sys pulse rate E&M - 8867-4 100 /min Heart rate temperature E&M 98.5 [degF] Body temperature weight E&M - 3141-9 149 [lb_av] Weight Measured blood pressure, diastolic - 8462-4 74 mm[Hg] BP [place] blood pressure, systolic - 8480-6 123 mm[Hg] BP sys pulse rate E&M - 8867-4 92 /min Heart rate temperature E&M 97.3 [degF] Body temperature weight E&M - 3141-9 150.5 [lb_av] Weight Measured Diagnostic Results Date Name Value Unit Range Description Lab Report: BUN, Creatinine - Chemistry urea nitrogen, blood 15 mg/dL - creatinine, serum 1.29 mg/dL 0.55-1.30 Lab Report: Comp. Metabolic Panel, Lipid Panel, HGBA1C, CBC, MICROALB/CR ... - Chemistry albumin/creatinine ratio, urine 30 - 300 mg/g mg/g{creat} 0-29 sodium, serum 138 mmol/L 772-178 9762/03/18 carbon dioxide, venous blood 25.5 mmol/L 21.0-32.0 potassium, serum 4.6 mmol/L 3.5-5.2 chloride, serum 101 mmol/L 98-107 blood glucose 129 mg/dL 65-110 urea nitrogen, blood 20 mg/dL 7-18 creatinine, serum 1.87 mg/dL 0.55-1.30 alanine aminotransferase (SGPT), serum 26 U/L 12-78 aspartate aminotransferase (SGOT), serum 20 U/L 15-37 calcium, serum 8.8 mg/dL 8.5-10.1 bilirubin, serum, total 0.40 mg/dL 0.00-1.00 cholesterol, serum 251 mg/dL 960-818 7305/03/18 triglyceride, serum, fasting 135 mg/dL 30-200 HDL cholesterol, serum 67 mg/dL 32-96 LDL cholesterol, serum 157 mg/dL 0-130 hemoglobin A1C, blood, as % of total hemoglobin 5.7 % 4.3-6.0 Lab Report: Comp. Metabolic Panel, Lipid Panel, HGBA1C, CBC, MICROALB/CR ... - Hematology leukocyte count, blood 7.3 10^3/MM^3 10*3/mm3 4.6-10.2 erythrocyte (RBC) count 4.24 10^6/MM^3 10*6/mm3 4.69-6.13 hemoglobin, blood 13.0 g/dL 13.5-17.5 hematocrit, blood 39.1 % 41.0-53.0 mean corpuscular volume, RBC 92 fL 80-97 mean corpuscular hemoglobin, RBC 30.7 pg 27.0-31.2 mean corpuscular hemoglobin concentration, RBC 33.4 G/DL % 31.8- 35.4 red blood cell distribution width 14.1 % 11.6-14.8 platelet count 245 10^3/MM^3 10*3/mm3 142-424 Lab Report: Comp. Metabolic Panel, Lipid Panel, HGBA1C, CBC, MICROALB/CR ... - Lab microalbumin, urine 150 0-19 Encounters Code Encounter Date Provider Facility CPT-03328 Level 4 Est. Patient 09:26:11 PUBLIC WEIGHER Capo Poe MD [facility] CPT-29766 Level 4 Est. Patient 08:53:08 CDT Capo Poe MD [facility] CPT-68409 Level 4 Est. Patient 10:22:57 CDT Capo Poe MD [facility] CPT-57658 Level 4 Est. Patient 13:44:30 CDT Capo Poe MD [facility] CPT-29696 Level 3 Est. Patient 14:59:32 PUBLIC WEIGHER Capo Poe MD [facility] CPT-75616 Level 4 Est. Patient 10:46:15 PUBLIC WEIGHER Capo Poe MD [facility] CPT-32502 Level 3 Est. Patient 11:00:53 CDT Capo Poe MD [facility] CPT-23106 Level 3 Est. Patient 09:39:35 CDT Capo Poe MD [facility] CPT-93902 Level 3 Est. Patient 09:27:01 CDT Capo Poe MD [facility] CPT-59150 Level 3 Est. Patient 18:37:08 CDT Zoran Arzola MD [facility] CPT-72812 Level 3 Est. Patient 15:00:28 CDT Capo Poe MD [facility] CPT-08480 Level 3 Est. Patient 08:20:19 CDT Zoran Arzola MD [facility] CPT-37562 Level 3 Est. Patient 09:22:21 CDT Capo Poe MD [facility] CPT-35732 Level 4 Est. Patient 10:21:30 PUBLIC WEIGHER Capo Poe MD [facility] CPT-77171 Level 3 Est. Patient 17:08:51 PUBLIC WEIGHER Zoran Arzola MD [facility] CPT-06068 Level 4 Est. Patient 09:44:42 CDT Capo Poe MD [facility] CPT-70131 Level 4 Est. Patient 10:39:29 CDT Capo Poe MD [facility] CPT-96593 Level 3 Est. Patient 17:45:23 CDT Zoran Arzola MD [facility] CPT-59295 Level 4 Est. Patient 08:50:44 CDT Capo Poe MD [facility] CPT-13895 Level 3 Est. Patient 10:39:51 [employer] WEIGHER Capo Poe MD [facility] CPT-21292 Level 4 Est. Patient 09:44:24 PUBLIC WEIGHER Capo Poe MD [facility] CPT-68942 Level 3 Est. Patient 14:48:42 [employer] WEIGHER Zoran Arzola MD [facility] CPT-79714 Level 4 Est. Patient 10:24:02 CDT Capo Poe MD [facility] CPT-54819 Level 3 Est. Patient 15:42:00 CDT Maya DUKES [facility] CPT-33942 Level 4 Est. Patient 13:34:15 CDT Capo Poe MD [facility] CPT-31792 Level 3 Est. Patient 15:32:10 PUBLIC WEIGHER Zoran Arzola MD [facility] CPT-40332 Level 3 New Patient 17:17:19 PUBLIC WEIGHER Zoran Arzola MD [facility] CPT-53297 Level 4 Est. Patient 10:25:01 PUBLIC WEIGHER Capo Poe MD [facility] CPT-90952 Level 3 Est. Patient 10:10:42 CDT Zoran Arzola MD [facility] CPT-36511 Level 3 Est. Patient 22:30:02 CDT Zoran Arzola MD [facility] CPT-77785 Level 4 Est. Patient 09:54:20 CDT Capo Poe MD [facility] CPT-07396 Level 3 Est. Patient 10:48:30 CDT Capo Poe MD [facility] CPT-44213 Level 3 Est. Patient 11:24:45 CDT Capo Poe MD [facility] CPT-33550 Level 3 Est. Patient 15:23:48 PUBLIC WEIGHER Capo Poe MD [facility] CPT-08112 Level 3 Est. Patient 15:10:03 PUBLIC WEIGHER Capo Poe MD [facility] CPT-06473 Level 3 Est. Patient 16:18:40 CDT Zoran Arzola MD [facility] Procedures Code Procedure Name Date Entry Date Standard Description CPT-000 Give Pneumovax 10:39:30 CDT CPT-04753 Venipuncture Draw Fee 09:32:34 CDT CPT-G0438 Initial Annual Wellness Exam 10:24:35 CDT CPT-48593 Venipuncture Draw Fee 09:46:29 CDT CPT-11725 Venipuncture Draw Fee 14:30:06 CDT CPT-26888 Venipuncture Draw Fee 10:58:22 CDT CPT-10815 Abd single AP View 08:32:00 CDT CPT-09068 Postop F/U Visit 21:13:08 CDT CPT-65532 Abd single AP View 15:50:24 CDT CPT-20053 Cystoscopy W/rem FB 15:21:28 CDT CPT-60079 Abd single AP View 14:06:45 CDT CPT-98361 Postop F/U Visit 09:48:32 CDT CPT-51876 Abd single AP View 13:58:26 CDT CPT-70304 Hip comp min 2V 10:27:18 PUBLIC WEIGHER CPT-84219 Urine Dip (Floor Use Only) 13:41:01 PUBLIC WEIGHER CPT-34715 Postop F/U Visit 11:17:48 CDT CPT-LR Lesion Removal 11:50:22 CDT CPT-OV Office Visit 11:50:22 CDT CPT-82101 Pneumovax 23 10:55:48 CDT CPT-54877 Administration single or combination vaccine inc oral 10 :55:48 CDT CPT-Cryo Cryotherapy 11:18:11 CDT CPT-OV Office Visit 11:18:11 CDT CPT-80926 LS spine AP and Lat 09:05:22 CDT CPT-47365 Bladder Scan 15:42:00 CDT CPT-71632 Cystoscopy 15:42:00 CDT CPT-OV Office Visit 16:37:19 PUBLIC WEIGHER CPT-72196 Bladder Scan 15:32:10 PUBLIC WEIGHER CPT-51725 Cystoscopy 15:32:10 PUBLIC WEIGHER CPT-31042 Abd single AP View 14:05:59 PUBLIC WEIGHER CPT-17992 Pill cam small bowel 09:48:39 PUBLIC WEIGHER CPT-47579 Urine Dip (Floor Use Only) 17:17:19 PUBLIC WEIGHER CPT-10173 Bladder Scan 17:17:19 PUBLIC WEIGHER CPT-OV Office Visit 11:50:26 [employer] WE[employer]HER CPT-08656 Bladder Scan 10:10:42 CDT CPT-95285 Venipuncture Draw Fee 09:14:04 CDT CPT-32563 Chest 2V Frontal and Lat 10:10:49 CDT CPT-58896 LS spine comp w obliq 11:50:11 CDT CPT-08314 Venipuncture Draw Fee 08:52:57 [employer] WEIGHER CPT-44645 Cystoscopy W/rem FB 18:37:28 CDT CPT-78407 Abd single AP View 16:18:40 CDT CPT-77463 Abd compl w upright 17:30:59 CDT
--- OUTSIDE RECORDS SUMMARY | 2016-11-22 15:19 | XMS REPORT | Clinical Summary ---
Author Author Admin, QIE Organization [employer] Address Unknown Phone Unavailable Allergies, Adverse Reactions, [...] not elsewhere classified ANEMIA 285.9 Inactive Felisa TEIXEIAR Anemia, unspecified Anemia, iron deficiency 280.9 Resolved [...] collapse Iron deficiency 280.9 Active Jasmin Dixon [facility] Iron deficiency anemia, unspecified NAUSEA AND VOMITING [...] 1 tab po twice daily FERROUS SULFATE 79277686194 Active Jasmin TEIXEIRA Active D ORAL TABS 2000 iu weekly D ORAL TABS Active Capo Poe MD Active CITALOPRAM HYDROBROMIDE 20 MG TABS 1 tablet by mouth daily CITALOPRAM HYDROBROMIDE 91393666403 Active Capo Poe MD Active CLARITIN 5 MG ORAL CHEW 1 tab po q day LORATADINE 98508599890 Active Felisa TEIXEIRA Active VIIBRYD STARTER PACK 10 & 20 MG ORAL KIT 1 po qd as directed 2015 VILAZODONE HCL 51621688226 No Longer Active Felisa TEIXEIRA Active HYDROXYZINE HCL 25 MG TAB 1 po qHS PRN Insomnia HYDROXYZINE HCL 02835158684 Active Capo Poe MD Active LISINOPRIL 10 MG TABS 1 tablet by mouth daily LISINOPRIL 65060951902 Active Capo Poe MD Active LORTAB 7.5-325 MG ORAL TABS 1 po q 6 hr prn pain HYDROCODONE- ACETAMINOPHEN 09534890420 No Longer Active Capo Poe MD Active FLOMAX 0.4 MG CAPS Take one by mouth daily TAMSULOSIN HCL 74148337738 No Longer Active Capo Poe MD Active TRIAMCINOLONE ACETONIDE 0.1 % CREA Apply to affected areas TID for up to 2 weeks TRIAMCINOLONE ACETONIDE 53030091550 Active Capo Poe MD Active NICOTINE 14 MG/24HR TRANS PT24 Apply/Change q 24hr NICOTINE 21887922755 No Longer Active Capo Poe MD Active TRAMADOL HCL 50 MG TABS 1-2 tablets every 6 hours as needed for pain TRAMADOL HCL 10589571648 No Longer Active Capo Poe MD Active SERTRALINE HCL 100 MG ORAL TABS take 1 tab daily SERTRALINE HCL 02631441409 No Longer Active Capo Poe MD Active LISINOPRIL-HYDROCHLOROTHIAZIDE 10-12.5 MG TABS 0.5 tab by mouth daily LISINOPRIL-HYDROCHLOROTHIAZIDE 86131582545 No Longer Active Capo Poe MD Active OMEPRAZOLE 20 MG CPDR 1 tablet by mouth daily OMEPRAZOLE 15305852404 Active Capo Poe MD Active WELLBUTRIN SR 150 MG ORAL [id number] 1 po BID BUPROPION HCL 24656321135 No Longer Active Capo Poe MD Active MIRALAX PACK 1 po qd PRN Constipation POLYETHYLENE GLYCOL 3350 88531246488 Active Capo Poe MD Active DULERA 100-5 MCG/ACT AERO 2 puffs BID MOMETASONE FURO- FORMOTEROL FUM 27901520680 Active Capo Poe MD Active ZOLOFT 100 MG TABS 1 po daily SERTRALINE HCL 34540991628 No Longer Active Zoran Arzola MD Active FERROUS SULFATE 325 (65 FE) MG TABS 1 tablet by mouth daily FERROUS SULFATE 09282012092 No Longer Active Capo Poe MD Active HYDROCODONE-ACETAMINOPHEN 7.5-300 MG TABS take one every six hours HYDROCODONE-ACETAMINOPHEN 22657040070 No Longer Active Capo Poe MD Active TRIAMCINOLONE ACETONIDE 0.1 % OINT Apply to affected areas TID for up to 2 weeks TRIAMCINOLONE ACETONIDE 40969841266 No Longer Active Joe Vargas RN Active FERROUS SULFATE 325 (65 FE) MG TABS Take one by mouth daily FERROUS SULFATE 94340199078 No Longer Active Capo Poe MD Active TRIAMCINOLONE ACETONIDE 0.1 % OINT Apply to affected areas TID for up to 2 weeks TRIAMCINOLONE ACETONIDE 60388860111 No Longer Active Capo Poe MD Active ADULT ASPIRIN LOW STRENGTH 81 MG TBDP qd ASPIRIN 16966380262 Active Zoran Arzola MD Active ALEVE 220 MG TAB prn NAPROXEN SODIUM 69242865109 Active Capo Poe MD Active MACROBID 100 MG CAP 1 cap by mouth twice daily NITROFURANTOIN MONOHYD MACRO 26561783562 No Longer Active Dona Becker Active AZITHROMYCIN 250 MG TABS 2 po qd x 1 day, then 1 po qd x 4 days AZITHROMYCIN 37837281750 No Longer Active Capo Poe MD Active FISH OIL 500 MG CAPS by mouth twice a day OMEGA-3 FATTY ACIDS 80466085048 Active Capo Poe MD Active FLAXSEED OIL 1000 MG CAPS Take two by mouth daily FLAXSEED (LINSEED) 53566585164 Active Zoran Arzola MD Active RED YEAST RICE 600 MG CAPS Take two by mouth daily RED YEAST RICE EXTRACT 50359729743 Active Zoran Arzola MD Active MULTIVITAMINS CAPS Take one by mouth daily MULTIPLE VITAMIN 26049063266 Active Zoran Arzola MD Active ICAPS MV TABS 2 po daily MULTIPLE VITAMINS-MINERALS 94346392817 Active Jam Arnold DO Active MACROBID 100 MG CAP 1 cap by mouth twice daily MACROBID 100 MG CAP 5549226 NITROFURANTOIN MONOHYD MACRO Inactive FERROUS SULFATE 325 (65 FE) MG TABS Take one by mouth daily FERROUS SULFATE 325 (65 FE) MG TABS 055306 FERROUS SULFATE Inactive HYDROCODONE-ACETAMINOPHEN 7.5-300 MG TABS take one every six hours HYDROCODONE-ACETAMINOPHEN 7.5-300 MG TABS 265214 HYDROCODONE- ACETAMINOPHEN Inactive FERROUS SULFATE 325 (65 FE) MG TABS 1 tablet by mouth daily FERROUS SULFATE 325 (65 FE) MG TABS 119293 FERROUS SULFATE Inactive ZOLOFT 100 MG TABS 1 po daily ZOLOFT 100 MG TABS 090671 SERTRALINE HCL Inactive SERTRALINE HCL 100 MG ORAL TABS take 1 tab daily SERTRALINE HCL 100 MG ORAL TABS 910019 SERTRALINE HCL Inactive TRAMADOL HCL 50 MG TABS 1-2 tablets every 6 hours as needed for pain TRAMADOL HCL 50 MG TABS 586137 TRAMADOL HCL Inactive NICOTINE 14 MG/24HR TRANS PT24 Apply/Change q 24hr NICOTINE 14 MG/24HR TRANS PT24 509461 NICOTINE Inactive FLOMAX 0.4 MG CAPS Take one by mouth daily FLOMAX 0.4 MG CAPS 113305 TAMSULOSIN HCL Inactive LORTAB 7.5-325 MG ORAL TABS 1 po q 6 hr prn pain LORTAB 7.5- 325 MG ORAL TABS 534128 HYDROCODONE-ACETAMINOPHEN Inactive VIIBRYD STARTER PACK 10 & 20 MG ORAL KIT 1 po qd as directed 2015 VIIBRYD STARTER PACK 10 & 20 MG ORAL KIT VILAZODONE HCL Inactive AZITHROMYCIN 250 MG TABS 2 po qd x 1 day, then 1 po qd x 4 days AZITHROMYCIN 250 MG TABS 9840974 AZITHROMYCIN Inactive TRIAMCINOLONE ACETONIDE 0.1 % OINT Apply to affected areas TID for up to 2 weeks TRIAMCINOLONE ACETONIDE 0.1 % OINT 7748057 TRIAMCINOLONE ACETONIDE Inactive TRIAMCINOLONE ACETONIDE 0.1 % OINT Apply to affected areas TID for up to 2 weeks TRIAMCINOLONE ACETONIDE 0.1 % OINT 3847360 TRIAMCINOLONE ACETONIDE Inactive Advance Directives Directive Description [...] E&M - 3141-9 149 [lb_av] Weight Measured Diagnostic Results Date Name Value Unit Range Description Lab Report: BUN, Creatinine - Chemistry urea nitrogen, blood 15 mg/dL 7-18 creatinine, serum 1.29 mg/dL 0.55-1.30 Lab Report: CBC W/DIFF, Comp. Metabolic Panel, Thyroid Stimulating Hormo ... - Chemistry sodium, serum 141 mmol/L 067-989 1589/01/27 carbon dioxide, venous blood 29.7 mmol/L 21.0-32.0 [...] count 286 10^3/MM^3 10*3/mm3 150-500 Lab Report: Comp. Metabolic Panel, Lipid Panel, HGBA1C, CBC, MICROALB/CR ... - Chemistry sodium, serum 138 mmol/L 489-024 2784/03/18 carbon dioxide, venous blood 25.5 mmol/L 21.0-32.0 potassium, serum 4.6 mmol/L 3.5-5.2 chloride, serum 101 mmol/L 98-107 blood glucose 129 mg/dL 65-110 urea nitrogen, blood 20 mg/dL 7-18 creatinine, serum 1.87 mg/dL 0.55-1.30 alanine aminotransferase (SGPT), serum 26 U/L 12-78 aspartate aminotransferase (SGOT), serum 20 U/L 15-37 calcium, serum 8.8 mg/dL 8.5-10.1 bilirubin, serum, total 0.40 mg/dL 0.00-1.00 cholesterol, serum 251 mg/dL 934-641 1642/03/18 triglyceride, serum, fasting 135 mg/dL 30-200 HDL cholesterol, serum 67 mg/dL 32-96 LDL cholesterol, serum 157 mg/dL 0-130 hemoglobin A1C, blood, as % of total hemoglobin 5.7 % 4.3-6.0 albumin/creatinine ratio, urine 30 - 300 mg/g mg/g{creat} 0-29 Lab Report: Comp. Metabolic Panel, Lipid Panel, [...] 0-19 Encounters Code Encounter Date Provider Facility CPT-57195 Level 4 Est. Patient 09:26:11 WEBLOGIC DEVELOPER Capo Poe MD [facility] CPT-54767 Level 4 Est. Patient 08:53:08 CDT Capo Poe MD [facility] CPT-05101 Level 4 Est. Patient 10:22:57 CDT Capo Poe MD [facility] CPT-47047 Level 4 Est. Patient 13:44:30 CDT Capo Poe MD [facility] CPT-35507 Level 3 Est. Patient 14:59:32 WEBLOGIC DEVELOPER Capo Poe MD [facility] CPT-59053 Level 4 Est. Patient 10:46:15 WEBLOGIC DEVELOPER Capo Poe MD [facility] CPT-75644 Level 3 Est. Patient 11:00:53 CDT Capo Poe MD [facility] CPT-53894 Level 3 Est. Patient 09:39:35 CDT Capo Poe MD [facility] CPT-70584 Level 3 Est. Patient 09:27:01 CDT Capo Poe MD [facility] CPT-08858 Level 3 Est. Patient 18:37:08 CDT Zoran Arzola MD [facility] CPT-53318 Level 3 Est. Patient 15:00:28 CDT Capo Poe MD [facility] CPT-98798 Level 3 Est. Patient 08:20:19 CDT Zoran Arzola MD [facility] CPT-82514 Level 3 Est. Patient 09:22:21 CDT Capo Poe MD [facility] CPT-11177 Level 4 Est. Patient 10:21:30 WEBLOGIC DEVELOPER Capo Poe MD [facility] CPT-53428 Level 3 Est. Patient 17:08:51 WEBLOGIC DEVELOPER Zoran Arzola MD [facility] CPT-19783 Level 4 Est. Patient 09:44:42 CDT Capo Poe MD [facility] CPT-07876 Level 4 Est. Patient 10:39:29 CDT Capo Poe MD [facility] CPT-24235 Level 3 Est. Patient 17:45:23 CDT Zoran Arzola MD [facility] CPT-77872 Level 4 Est. Patient 08:50:44 CDT Capo Poe MD [facility] CPT-94881 Level 3 Est. Patient 10:39:51 WEBLOGIC DEVELOPER Capo Poe MD [facility] CPT-49828 Level 4 Est. Patient 09:44:24 WEBLOGIC DEVELOPER Capo Poe MD [facility] CPT-90332 Level 3 Est. Patient 14:48:42 WEBLOGIC DEVELOPER Zoran Arzola MD [facility] CPT-78864 Level 4 Est. Patient 10:24:02 CDT Capo Poe MD [facility] CPT-66473 Level 3 Est. Patient 15:42:00 CDT Maya DUKES [facility] CPT-95585 Level 4 Est. Patient 13:34:15 CDT Capo Poe MD [facility] CPT-33669 Level 3 Est. Patient 15:32:10 WEBLOGIC DEVELOPER Zoran Arzola MD [facility] CPT-09306 Level 3 New Patient 17:17:19 WEBLOGIC DEVELOPER Zoran Arzola MD [facility] CPT-19532 Level 4 Est. Patient 10:25:01 WEBLOGIC DEVELOPER Capo Poe MD [facility] CPT-03121 Level 3 Est. Patient 10:10:42 CDT Zoran Arzola MD [facility] CPT-59617 Level 3 Est. Patient 22:30:02 CDT Zoran Arzola MD [facility] CPT-23009 Level 4 Est. Patient 09:54:20 CDT Capo Poe MD [facility] CPT-99553 Level 3 Est. Patient 10:48:30 CDT Capo Poe MD [facility] CPT-63413 Level 3 Est. Patient 11:24:45 CDT Capo Poe MD [facility] CPT-77126 Level 3 Est. Patient 15:23:48 WEBLOGIC DEVELOPER Capo Poe MD [facility] CPT-07520 Level 3 Est. Patient 15:10:03 WEBLOGIC DEVELOPER Capo Poe MD [facility] CPT-13589 Level 3 Est. Patient 16:18:40 CDT Zoran Arzola MD [facility] Procedures Code Procedure Name Date Entry Date Standard Description CPT-45250 Hemoccult IFOBT - LAB USE ONLY 14:11:43 WEBLOGIC DEVELOPER CPT-85847 TPSA - LAB USE ONLY 10:37:52 WEBLOGIC DEVELOPER CPT-38186 TSH - LAB USE ONLY 10:37:51 WEBLOGIC DEVELOPER CPT-74302 CMP - LAB USE ONLY 10:37:51 WEBLOGIC DEVELOPER CPT-87979 CBC with Diff - LAB USE ONLY 10:37:51 WEBLOGIC DEVELOPER CPT-02780 Venipuncture Draw Fee 10:37:51 WEBLOGIC DEVELOPER CPT-000 Give Pneumovax 10:39:30 CDT CPT-32110 Venipuncture Draw Fee 09:32:34 CDT CPT-G0438 Initial Annual Wellness Exam 10:24:35 CDT CPT-25168 Venipuncture Draw Fee 09:46:29 CDT CPT-92513 Venipuncture Draw Fee 14:30:06 CDT CPT-01739 Venipuncture Draw Fee 10:58:22 CDT CPT-73867 Abd single AP View 08:32:00 CDT CPT-24343 Postop F/U Visit 21:13:08 CDT CPT-21523 Abd single AP View 15:50:24 CDT CPT-52452 Cystoscopy W/rem FB 15:21:28 CDT CPT-32743 Abd single AP View 14:06:45 CDT CPT-32029 Postop F/U Visit 09:48:32 CDT CPT-23217 Abd single AP View 13:58:26 CDT CPT-20738 Hip comp min 2V 10:27:18 WEBLOGIC DEVELOPER CPT-03104 Urine Dip (Floor Use Only) 13:41:01 WEBLOGIC DEVELOPER CPT-17206 Postop F/U Visit 11:17:48 CDT CPT-LR Lesion Removal 11:50:22 CDT CPT-OV Office Visit 11:50:22 CDT CPT-58729 Pneumovax 23 10:55:48 CDT CPT-24350 Administration single or combination vaccine inc oral 10 :55:48 CDT CPT-Cryo Cryotherapy 11:18:11 CDT CPT-OV Office Visit 11:18:11 CDT CPT-26851 LS spine AP and Lat 09:05:22 CDT CPT-67971 Bladder Scan 15:42:00 CDT CPT-65689 Cystoscopy 15:42:00 CDT CPT-OV Office Visit 16:37:19 WEBLOGIC DEVELOPER CPT-38072 Bladder Scan 15:32:10 WEBLOGIC DEVELOPER CPT-81690 Cystoscopy 15:32:10 WEBLOGIC DEVELOPER CPT-20354 Abd single AP View 14:05:59 WEBLOGIC DEVELOPER CPT-19341 Pill cam small bowel 09:48:39 WEBLOGIC DEVELOPER CPT-36705 Urine Dip (Floor Use Only) 17:17:19 WEBLOGIC DEVELOPER CPT-32551 Bladder Scan 17:17:19 WEBLOGIC DEVELOPER CPT-OV Office Visit 11:50:26 WEBLOGIC DEVELOPER CPT-99328 Bladder Scan 10:10:42 CDT CPT-36317 Venipuncture Draw Fee 09:14:04 CDT CPT-90927 Chest 2V Frontal and Lat 10:10:49 CDT CPT-10714 LS spine comp w obliq 11:50:11 CDT CPT-75955 Venipuncture Draw Fee 08:52:57 WEBLOGIC DEVELOPER CPT-06828 Cystoscopy W/rem FB 18:37:28 CDT CPT-86457 Abd single AP View 16:18:40 CDT CPT-18618 Abd compl w upright 17:30:59 CDT
--- OUTSIDE RECORDS SUMMARY | 2016-11-22 15:20 | XMS REPORT | Clinical Summary ---
Author Author Admin, [employer] Organization [employer] Address Unknown Phone Unavailable Allergies, Adverse Reactions, [...] collapse Iron deficiency 280.9 Active Jasmin Dixon Marva Iron deficiency anemia, unspecified NAUSEA AND VOMITING ICD-787.01 Inactive Capo Poe MD CALCULUS OF KIDNEY ICD-592.0 Inactive Capo Poe MD URETERAL CALCULUS ICD-592.1 Inactive Capo Poe MD FLANK PAIN ICD-789.09 Inactive Capo Poe MD 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 Inactive Capo Poe MD RENAL CALCULUS ICD-592.9 Inactive Capo Poe MD FLANK PAIN, RIGHT ICD-789.09 Inactive Capo Poe MD SCIATICA ICD-724.3 Inactive Capo Poe MD 2011 URINARY FREQUENCY ICD-788.41 Inactive Capo Poe MD COUGH ICD-786.2 Inactive Capo Poe MD ELEVATED P S A ICD-790.93 Inactive Capo Poe MD URINARY TRACT INFECTION ICD-599.0 Inactive Capo Poe MD BRONCHITIS, ACUTE ICD-466.0 Inactive Capo Poe MD U T I-RECURRENT ICD-599.0 Inactive Capo Poe MD BLADDER CALCULUS ICD-594.1 Inactive Capo Poe MD HEMATURIA ICD-599.70 Inactive Capo Poe MD Anemia, iron deficiency ICD-280.9 Inactive Capo Poe MD BLADDER CALCULUS ICD-594.1 Inactive Capo Poe MD U T I-RECURRENT ICD-599.0 Clyde Poe MD RASH AND OTHER NONSPECIFIC SKIN ERUPTION ICD-782.1 Inactive Capo Poe MD Near syncope ICD-780.2 Clyde Poe MD HEMATURIA ICD-599.70 Inactive Capo Poe MD Lumbar radiculopathy ICD-724.4 Inactive 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 Inactive Capo Poe MD UTI ICD-599.0 Inactive Capo Poe MD Hematuria ICD-599.70 Clyde Poe MD Sciatica, right ICD-724.3 Inactive Capo Poe MD Renal Calculus ICD-592.9 Inactive Capo Poe MD Urethral calculus ICD-594.2 Inactive Capo Poe MD Chest pain ICD-786.50 Inactive Capo Poe MD Prostate cancer screening ICD-V76.44 Inactive Capo Poe MD Pruritic rash ICD-698.8 Inactive Capo Poe MD Elevated creatinine ICD-790.4 Inactive Capo Poe MD Skin lesion ICD-709.9 Inactive Capo Poe MD Ecchymoses, spontaneous ICD-782.7 Inactive Capo Poe MD Medication List Medication Instructions Start Date Stop Date Generic Name NDC Status Provider Patient Instruction EQL IRON SUPPLEMENT THERAPY 325 MG ORAL TABS 1 tab po twice daily FERROUS SULFATE 84645571533 Active Jasmin TEIXEIRA Active D ORAL TABS 2000 iu weekly D ORAL TABS Active Capo Poe MD Active CITALOPRAM HYDROBROMIDE 20 MG TABS 1 tablet by mouth daily CITALOPRAM HYDROBROMIDE 32141530544 Active Capo Poe MD Active CLARITIN 5 MG ORAL CHEW 1 tab po q day LORATADINE 09559115417 Active Felisa TEIXEIRA Active VIIBRYD STARTER PACK 10 & 20 MG ORAL KIT 1 po qd as directed 2015 VILAZODONE HCL 80002142956 No Longer Active Felisa TEIXEIRA Active HYDROXYZINE HCL 25 MG TAB 1 po qHS PRN Insomnia HYDROXYZINE HCL 65577054010 Active Capo Poe MD Active LISINOPRIL 10 MG TABS 1 tablet by mouth daily LISINOPRIL 87857439018 Active Capo Poe MD Active LORTAB 7.5-325 MG ORAL TABS 1 po q 6 hr prn pain HYDROCODONE- ACETAMINOPHEN 05820047342 No Longer Active aCpo Poe MD Active FLOMAX 0.4 MG CAPS Take one by mouth daily TAMSULOSIN HCL 83896162643 No Longer Active Capo Poe MD Active TRIAMCINOLONE ACETONIDE 0.1 % CREA Apply to affected areas TID for up to 2 weeks TRIAMCINOLONE ACETONIDE 66625871619 Active Capo Poe MD Active NICOTINE 14 MG/24HR TRANS PT24 Apply/Change q 24hr NICOTINE 03483887102 No Longer Active Capo Poe MD Active TRAMADOL HCL 50 MG TABS 1-2 tablets every 6 hours as needed for pain TRAMADOL HCL 67091488285 No Longer Active Caop Poe MD Active SERTRALINE HCL 100 MG ORAL TABS take 1 tab daily SERTRALINE HCL 96567332127 No Longer Active Capo Poe MD Active LISINOPRIL-HYDROCHLOROTHIAZIDE 10-12.5 MG TABS 0.5 tab by mouth daily LISINOPRIL-HYDROCHLOROTHIAZIDE 09081667303 No Longer Active Capo Poe MD Active OMEPRAZOLE 20 MG CPDR 1 tablet by mouth daily OMEPRAZOLE 38549686199 Active Capo Poe MD Active WELLBUTRIN SR 150 MG ORAL QZ18A-QIO 1 po BID BUPROPION HCL 83267651567 No Longer Active Capo Poe MD Active MIRALAX PACK 1 po qd PRN Constipation POLYETHYLENE GLYCOL 3350 64000199723 Active Capo Poe MD Active DULERA 100-5 MCG/ACT AERO 2 puffs BID MOMETASONE FURO- FORMOTEROL FUM 69149953613 Active Capo Poe MD Active ZOLOFT 100 MG TABS 1 po daily SERTRALINE HCL 22056077475 No Longer Active Zoran Arzola MD Active FERROUS SULFATE 325 (65 FE) MG TABS 1 tablet by mouth daily FERROUS SULFATE 07045373097 No Longer Active Capo Poe MD Active HYDROCODONE-ACETAMINOPHEN 7.5-300 MG TABS take one every six hours HYDROCODONE-ACETAMINOPHEN 39241998582 No Longer Active Capo Poe MD Active TRIAMCINOLONE ACETONIDE 0.1 % OINT Apply to affected areas TID for up to 2 weeks TRIAMCINOLONE ACETONIDE 88789001186 No Longer Active Joe Vargas RN Active FERROUS SULFATE 325 (65 FE) MG TABS Take one by mouth daily FERROUS SULFATE 04188409428 No Longer Active Capo Poe MD Active TRIAMCINOLONE ACETONIDE 0.1 % OINT Apply to affected areas TID for up to 2 weeks TRIAMCINOLONE ACETONIDE 93516261549 No Longer Active Capo Poe MD Active ADULT ASPIRIN LOW STRENGTH 81 MG TBDP qd ASPIRIN 00478492457 Active Zoran Arzola MD Active ALEVE 220 MG TAB prn NAPROXEN SODIUM 38675290477 Active Capo Poe MD Active MACROBID 100 MG CAP 1 cap by mouth twice daily NITROFURANTOIN MONOHYD MACRO 68707374826 No Longer Active Dona Becker Active AZITHROMYCIN 250 MG TABS 2 po qd x 1 day, then 1 po qd x 4 days AZITHROMYCIN 24848097787 No Longer Active Capo Poe MD Active FISH OIL 500 MG CAPS by mouth twice a day OMEGA-3 FATTY ACIDS 93373962444 Active Capo Poe MD Active FLAXSEED OIL 1000 MG CAPS Take two by mouth daily FLAXSEED (LINSEED) 09643177828 Active Zoran Arzola MD Active RED YEAST RICE 600 MG CAPS Take two by mouth daily RED YEAST RICE EXTRACT 34263859521 Active Zoran Arzola MD Active MULTIVITAMINS CAPS Take one by mouth daily MULTIPLE VITAMIN 68580939321 Active Zoran Arzola MD Active ICAPS MV TABS 2 po daily MULTIPLE VITAMINS-MINERALS 82305767206 Active Jam Arnold DO Active MACROBID 100 MG CAP 1 cap by mouth twice daily MACROBID 100 MG CAP 3484851 NITROFURANTOIN MONOHYD MACRO Inactive FERROUS SULFATE 325 (65 FE) MG TABS Take one by mouth daily FERROUS SULFATE 325 (65 FE) MG TABS 444343 FERROUS SULFATE Inactive HYDROCODONE-ACETAMINOPHEN 7.5-300 MG TABS take one every six hours HYDROCODONE-ACETAMINOPHEN 7.5-300 MG TABS 061280 HYDROCODONE- ACETAMINOPHEN Inactive FERROUS SULFATE 325 (65 FE) MG TABS 1 tablet by mouth daily FERROUS SULFATE 325 (65 FE) MG TABS 081667 FERROUS SULFATE Inactive ZOLOFT 100 MG TABS 1 po daily ZOLOFT 100 MG TABS 343553 SERTRALINE HCL Inactive SERTRALINE HCL 100 MG ORAL TABS take 1 tab daily SERTRALINE HCL 100 MG ORAL TABS 207374 SERTRALINE HCL Inactive TRAMADOL HCL 50 MG TABS 1-2 tablets every 6 hours as needed for pain TRAMADOL HCL 50 MG TABS 295880 TRAMADOL HCL Inactive NICOTINE 14 MG/24HR TRANS PT24 Apply/Change q 24hr NICOTINE 14 MG/24HR TRANS PT24 001777 NICOTINE Inactive FLOMAX 0.4 MG CAPS Take one by mouth daily FLOMAX 0.4 MG CAPS 771655 TAMSULOSIN HCL Inactive LORTAB 7.5-325 MG ORAL TABS 1 po q 6 hr prn pain LORTAB 7.5- 325 MG ORAL TABS 430398 HYDROCODONE-ACETAMINOPHEN Inactive VIIBRYD STARTER PACK 10 & 20 MG ORAL KIT 1 po qd as directed 2015 VIIBRYD STARTER PACK 10 & 20 MG ORAL KIT VILAZODONE HCL Inactive AZITHROMYCIN 250 MG TABS 2 po qd x 1 day, then 1 po qd x 4 days AZITHROMYCIN 250 MG TABS 0283466 AZITHROMYCIN Inactive TRIAMCINOLONE ACETONIDE 0.1 % OINT Apply to affected areas TID for up to 2 weeks TRIAMCINOLONE ACETONIDE 0.1 % OINT 7869471 TRIAMCINOLONE ACETONIDE Inactive TRIAMCINOLONE ACETONIDE 0.1 % OINT Apply to affected areas TID for up to 2 weeks TRIAMCINOLONE ACETONIDE 0.1 % OINT 4399584 TRIAMCINOLONE ACETONIDE Inactive Advance Directives Directive Description [...] ... - Chemistry sodium, serum 141 mmol/L 702-981 8445/01/27 carbon dioxide, venous blood 29.7 mmol/L 21.0-32.0 [...] ... - Chemistry sodium, serum 138 mmol/L 404-255 5274/03/18 carbon dioxide, venous blood 25.5 mmol/L 21.0-32.0 potassium, serum 4.6 mmol/L 3.5-5.2 chloride, serum 101 mmol/L 98-107 blood glucose 129 mg/dL 65-110 urea nitrogen, blood 20 mg/dL 7-18 creatinine, serum 1.87 mg/dL 0.55-1.30 alanine aminotransferase (SGPT), serum 26 U/L 12-78 aspartate aminotransferase (SGOT), serum 20 U/L 15-37 calcium, serum 8.8 mg/dL 8.5-10.1 bilirubin, serum, total 0.40 mg/dL 0.00-1.00 cholesterol, serum 251 mg/dL 247-288 6673/03/18 triglyceride, serum, fasting 135 mg/dL 30-200 HDL [...] 0-19 Encounters Code Encounter Date Provider Facility CPT-07336 Level 4 Est. Patient 09:26:11 ICT SUPPORT ENGINEER Capo Poe MD [facility] CPT-13957 Level 4 Est. Patient 08:53:08 CDT Capo Poe MD [facility] CPT-95922 Level 4 Est. Patient 10:22:57 CDT Capo Poe MD [facility] CPT-12293 Level 4 Est. Patient 13:44:30 CDT Capo Poe MD [facility] CPT-23982 Level 3 Est. Patient 14:59:32 ICT SUPPORT ENGINEER Capo Poe MD [facility] CPT-03274 Level 4 Est. Patient 10:46:15 ICT SUPPORT ENGINEER Capo Poe MD [facility] CPT-35361 Level 3 Est. Patient 11:00:53 CDT Capo Poe MD [facility] CPT-25098 Level 3 Est. Patient 09:39:35 CDT Capo Poe MD [facility] CPT-60501 Level 3 Est. Patient 09:27:01 CDT Capo Poe MD [facility] CPT-57631 Level 3 Est. Patient 18:37:08 CDT Zoran Arzola MD [facility] CPT-43477 Level 3 Est. Patient 15:00:28 CDT Capo Poe MD [facility] CPT-01780 Level 3 Est. Patient 08:20:19 CDT Zoran Arzola MD [facility] CPT-22758 Level 3 Est. Patient 09:22:21 CDT Capo Poe MD [facility] CPT-18432 Level 4 Est. Patient 10:21:30 ICT SUPPORT ENGINEER Capo Poe MD [facility] CPT-70834 Level 3 Est. Patient 17:08:51 ICT SUPPORT ENGINEER Zoran Arzola MD [facility] CPT-47319 Level 4 Est. Patient 09:44:42 CDT Capo Poe MD [facility] CPT-20877 Level 4 Est. Patient 10:39:29 CDT Capo Poe MD [facility] CPT-68152 Level 3 Est. Patient 17:45:23 CDT Zoran Arzola MD [facility] CPT-14755 Level 4 Est. Patient 08:50:44 CDT Capo Poe MD [facility] CPT-26250 Level 3 Est. Patient 10:39:51 ICT SUPPORT ENGINEER Capo Poe MD [facility] CPT-75275 Level 4 Est. Patient 09:44:24 ICT SUPPORT ENGINEER Capo Poe MD [facility] CPT-29095 Level 3 Est. Patient 14:48:42 ICT SUPPORT ENGINEER Zoran Arzola MD [facility] CPT-80596 Level 4 Est. Patient 10:24:02 CDT Capo Poe MD [facility] CPT-11752 Level 3 Est. Patient 15:42:00 CDT Maya DUKES [facility] CPT-37377 Level 4 Est. Patient 13:34:15 CDT Capo Poe MD [facility] CPT-48815 Level 3 Est. Patient 15:32:10 ICT SUPPORT ENGINEER Zoran Arzola MD [facility] CPT-51379 Level 3 New Patient 17:17:19 ICT SUPPORT ENGINEER Zoran Arzola MD [facility] CPT-01882 Level 4 Est. Patient 10:25:01 ICT SUPPORT ENGINEER Capo Poe MD [facility] CPT-66261 Level 3 Est. Patient 10:10:42 CDT Zoran Arzola MD [facility] CPT-25803 Level 3 Est. Patient 22:30:02 CDT Zoran Arzola MD [facility] CPT-61559 Level 4 Est. Patient 09:54:20 CDT Capo Poe MD [facility] CPT-89092 Level 3 Est. Patient 10:48:30 CDT Capo Poe MD [facility] CPT-48834 Level 3 Est. Patient 11:24:45 CDT Capo Poe MD [facility] CPT-11001 Level 3 Est. Patient 15:23:48 ICT SUPPORT ENGINEER Capo Poe MD [facility] CPT-66125 Level 3 Est. Patient 15:10:03 ICT SUPPORT ENGINEER Capo Poe MD [facility] CPT-19546 Level 3 Est. Patient 16:18:40 CDT Zoran Arzola MD [facility] Procedures Code Procedure Name Date Entry Date Standard Description CPT-35976 Hemoccult IFOBT - LAB USE ONLY 14:11:43 ICT SUPPORT ENGINEER CPT-74462 TPSA - LAB USE ONLY 10:37:52 ICT SUPPORT ENGINEER CPT-64210 TSH - LAB USE ONLY 10:37:51 ICT SUPPORT ENGINEER CPT-08924 CMP - LAB USE ONLY 10:37:51 ICT SUPPORT ENGINEER CPT-71028 CBC with Diff - LAB USE ONLY 10:37:51 ICT SUPPORT ENGINEER CPT-42587 Venipuncture Draw Fee 10:37:51 ICT SUPPORT ENGINEER CPT-000 Give Pneumovax 10:39:30 CDT CPT-21741 Venipuncture Draw Fee 09:32:34 CDT CPT-G0438 Initial Annual Wellness Exam 10:24:35 CDT CPT-15576 Venipuncture Draw Fee 09:46:29 CDT CPT-39319 Venipuncture Draw Fee 14:30:06 CDT CPT-33126 Venipuncture Draw Fee 10:58:22 CDT CPT-72615 Abd single AP View 08:32:00 CDT CPT-95773 Postop F/U Visit 21:13:08 CDT CPT-40922 Abd single AP View 15:50:24 CDT CPT-83885 Cystoscopy W/rem FB 15:21:28 CDT CPT-40783 Abd single AP View 14:06:45 CDT CPT-90941 Postop F/U Visit 09:48:32 CDT CPT-42154 Abd single AP View 13:58:26 CDT CPT-65520 Hip comp min 2V 10:27:18 ICT SUPPORT ENGINEER CPT-43729 Urine Dip (Floor Use Only) 13:41:01 ICT SUPPORT ENGINEER CPT-89371 Postop F/U Visit 11:17:48 CDT CPT-LR Lesion Removal 11:50:22 CDT CPT-OV Office Visit 11:50:22 CDT CPT-90297 Pneumovax 23 10:55:48 CDT CPT-80752 Administration single or combination vaccine inc oral 10 :55:48 CDT CPT-Cryo Cryotherapy 11:18:11 CDT CPT-OV Office Visit 11:18:11 CDT CPT-96359 LS spine AP and Lat 09:05:22 CDT CPT-03587 Bladder Scan 15:42:00 CDT CPT-23508 Cystoscopy 15:42:00 CDT CPT-OV Office Visit 16:37:19 ICT SUPPORT ENGINEER CPT-08681 Bladder Scan 15:32:10 ICT SUPPORT ENGINEER CPT-15521 Cystoscopy 15:32:10 ICT SUPPORT ENGINEER CPT-64436 Abd single AP View 14:05:59 ICT SUPPORT ENGINEER CPT-06869 Pill cam small bowel 09:48:39 ICT SUPPORT ENGINEER CPT-51111 Urine Dip (Floor Use Only) 17:17:19 ICT SUPPORT ENGINEER CPT-90006 Bladder Scan 17:17:19 ICT SUPPORT ENGINEER CPT-OV Office Visit 11:50:26 ICT SUPPORT ENGINEER CPT-86614 Bladder Scan 10:10:42 CDT CPT-16544 Venipuncture Draw Fee 09:14:04 CDT CPT-51192 Chest 2V Frontal and Lat 10:10:49 CDT CPT-40577 LS spine comp w obliq 11:50:11 CDT CPT-57355 Venipuncture Draw Fee 08:52:57 ICT SUPPORT ENGINEER CPT-36302 Cystoscopy W/rem FB 18:37:28 CDT CPT-55578 Abd single AP View 16:18:40 CDT CPT-37701 Abd compl w upright 17:30:59 CDT
--- OUTSIDE RECORDS SUMMARY | 2016-11-22 15:21 | XMS REPORT | Clinical Summary ---
Author Author Admin, QIE Organization [employer] Address Unknown Phone Unavailable Allergies, Adverse Reactions, [...] Active Capo Poe MD Calculus of kidney NAUSEA AND VOMITING ICD-787.01 Inactive Capo Poe [...] ICD-780.2 Clyde Poe MD Skin lesion ICD-709.9 Clyde Poe MD Ecchymoses, spontaneous ICD-782.7 Inactive Capo [...] Generic Name NDC Status Provider Patient Instruction CITALOPRAM HYDROBROMIDE 20 MG TABS 1 tablet by mouth daily CITALOPRAM HYDROBROMIDE 07012753817 Active Felisamario TEIXEIRA Active CLARITIN 5 MG ORAL CHEW 1 tab po q day LORATADINE 64953849146 Active Felisa Daphney RMA Active VIIBRYD STARTER PACK 10 & 20 MG ORAL KIT 1 po qd as directed 2015 VILAZODONE HCL 98841739271 No Longer Active Felisa TEIXEIRA Active HYDROXYZINE HCL 25 MG TAB 1 po qHS PRN Insomnia HYDROXYZINE HCL 79964270586 Active Capo Poe MD Active LISINOPRIL 10 MG TABS 1 tablet by mouth daily LISINOPRIL 55198020139 Active Capo Poe MD Active LORTAB 7.5-325 MG ORAL TABS 1 po q 6 hr prn pain HYDROCODONE- ACETAMINOPHEN 13745863964 No Longer Active Capo Poe MD Active FLOMAX 0.4 MG CAPS Take one by mouth daily TAMSULOSIN HCL 76545390404 No Longer Active Capo Poe MD Active TRIAMCINOLONE ACETONIDE 0.1 % CREA Apply to affected areas TID for up to 2 weeks TRIAMCINOLONE ACETONIDE 61034228964 Active Capo Poe MD Active NICOTINE 14 MG/24HR TRANS PT24 Apply/Change q 24hr NICOTINE 28778332751 No Longer Active Capo Poe MD Active TRAMADOL HCL 50 MG TABS 1-2 tablets every 6 hours as needed for pain TRAMADOL HCL 67606556798 No Longer Active Capo Poe MD Active SERTRALINE HCL 100 MG ORAL TABS take 1 tab daily SERTRALINE HCL 80254988623 No Longer Active Capo Poe MD Active LISINOPRIL-HYDROCHLOROTHIAZIDE 10-12.5 MG TABS 0.5 tab by mouth daily LISINOPRIL-HYDROCHLOROTHIAZIDE 47259398295 No Longer Active Capo Poe MD Active OMEPRAZOLE 20 MG CPDR 1 tablet by mouth daily OMEPRAZOLE 50763131819 Active Capo Poe MD Active WELLBUTRIN SR 150 MG ORAL [id number] 1 po BID BUPROPION HCL 17375130036 No Longer Active Capo Poe MD Active MIRALAX PACK 1 po qd PRN Constipation POLYETHYLENE GLYCOL 3350 21800001662 Active Capo Poe MD Active DULERA 100-5 MCG/ACT AERO 2 puffs BID MOMETASONE FURO- FORMOTEROL FUM 89074422292 Active Capo Poe MD Active ZOLOFT 100 MG TABS 1 po daily SERTRALINE HCL 10436390025 No Longer Active Zoran Arzola MD Active FERROUS SULFATE 325 (65 FE) MG TABS 1 tablet by mouth daily FERROUS SULFATE 27538744338 No Longer Active Capo Poe MD Active HYDROCODONE-ACETAMINOPHEN 7.5-300 MG TABS take one every six hours HYDROCODONE-ACETAMINOPHEN 70535491187 No Longer Active Capo Poe MD Active TRIAMCINOLONE ACETONIDE 0.1 % OINT Apply to affected areas TID for up to 2 weeks TRIAMCINOLONE ACETONIDE 98046232620 No Longer Active Joe Vargas RN Active FERROUS SULFATE 325 (65 FE) MG TABS Take one by mouth daily FERROUS SULFATE 09456809784 No Longer Active Capo Poe MD Active TRIAMCINOLONE ACETONIDE 0.1 % OINT Apply to affected areas TID for up to 2 weeks TRIAMCINOLONE ACETONIDE 02758851309 No Longer Active Capo Poe MD Active ADULT ASPIRIN LOW STRENGTH 81 MG TBDP qd ASPIRIN 98555748199 Active Zoran Arzola MD Active ALEVE 220 MG TAB prn NAPROXEN SODIUM 01336399231 Active Capo Poe MD Active MACROBID 100 MG CAP 1 cap by mouth twice daily NITROFURANTOIN MONOHYD MACRO 30757440041 No Longer Active Dona Becker Active AZITHROMYCIN 250 MG TABS 2 po qd x 1 day, then 1 po qd x 4 days AZITHROMYCIN 24853628427 No Longer Active Capo Poe MD Active FISH OIL 500 MG CAPS by mouth twice a day OMEGA-3 FATTY ACIDS 93815907804 Active Capo Poe MD Active FLAXSEED OIL 1000 MG CAPS Take two by mouth daily FLAXSEED (LINSEED) 41941572990 Active Zoran Arzola MD Active RED YEAST RICE 600 MG CAPS Take two by mouth daily RED YEAST RICE EXTRACT 62546170596 Active Zoran Arzola MD Active MULTIVITAMINS CAPS Take one by mouth daily MULTIPLE VITAMIN 55584318998 Elza Arzola MD Active ICAPS MV TABS 2 po daily MULTIPLE VITAMINS-MINERALS 27943571523 Active Jam Arnold DO Active MACROBID 100 MG CAP 1 cap by mouth twice daily MACROBID 100 MG CAP 4516199 NITROFURANTOIN MONOHYD MACRO Inactive FERROUS SULFATE 325 (65 FE) MG TABS Take one by mouth daily FERROUS SULFATE 325 (65 FE) MG TABS 256209 FERROUS SULFATE Inactive HYDROCODONE-ACETAMINOPHEN 7.5-300 MG TABS take one every six hours HYDROCODONE-ACETAMINOPHEN 7.5-300 MG TABS 033752 HYDROCODONE- ACETAMINOPHEN Inactive FERROUS SULFATE 325 (65 FE) MG TABS 1 tablet by mouth daily FERROUS SULFATE 325 (65 FE) MG TABS 630467 FERROUS SULFATE Inactive ZOLOFT 100 MG TABS 1 po daily ZOLOFT 100 MG TABS 254717 SERTRALINE HCL Inactive SERTRALINE HCL 100 MG ORAL TABS take 1 tab daily SERTRALINE HCL 100 MG ORAL TABS 307731 SERTRALINE HCL Inactive TRAMADOL HCL 50 MG TABS 1-2 tablets every 6 hours as needed for pain TRAMADOL HCL 50 MG TABS 981908 TRAMADOL HCL Inactive NICOTINE 14 MG/24HR TRANS PT24 Apply/Change q 24hr NICOTINE 14 MG/24HR TRANS PT24 800310 NICOTINE Inactive FLOMAX 0.4 MG CAPS Take one by mouth daily FLOMAX 0.4 MG CAPS 703292 TAMSULOSIN HCL Inactive LORTAB 7.5-325 MG ORAL TABS 1 po q 6 hr prn pain LORTAB 7.5- 325 MG ORAL TABS 396327 HYDROCODONE-ACETAMINOPHEN Inactive VIIBRYD STARTER PACK 10 & 20 MG ORAL KIT 1 po qd as directed 2015 VIIBRYD STARTER PACK 10 & 20 MG ORAL KIT VILAZODONE HCL Inactive AZITHROMYCIN 250 MG TABS 2 po qd x 1 day, then 1 po qd x 4 days AZITHROMYCIN 250 MG TABS 0153411 AZITHROMYCIN Inactive TRIAMCINOLONE ACETONIDE 0.1 % OINT Apply to affected areas TID for up to 2 weeks TRIAMCINOLONE ACETONIDE 0.1 % OINT 0284451 TRIAMCINOLONE ACETONIDE Inactive TRIAMCINOLONE ACETONIDE 0.1 % OINT Apply to affected areas TID for up to 2 weeks TRIAMCINOLONE ACETONIDE 0.1 % OINT 7019732 TRIAMCINOLONE ACETONIDE Inactive Advance Directives Directive Description Start Date PERMISSION TO SHARE DISCUSSED WITH PATIENT -- NO DECISION MADE Immunizations Vaccine Administration Date Value Standard Description pneumococcal immunization administered Pneumovax 23 [CVX33] pneumococcal polysaccharide vaccine, 23 valent Vital Signs Date Name Value Unit Range Description blood pressure, diastolic - 8462-4 54 mm[Hg] [...] E&M - 3141-9 150.5 [lb_av] Weight Measured blood pressure, diastolic - 8462-4 57 mm[Hg] BP [place] blood pressure, systolic - 8480-6 112 mm[Hg] BP sys pulse rate E&M - 8867-4 90 /min Heart rate temperature E&M 97.2 [degF] Body temperature weight E&M - 3141-9 147.5 [lb_av] Weight Measured Diagnostic Results Date Name Value Unit Range Description Lab Report: BUN, Creatinine - Chemistry urea nitrogen, blood 15 mg/dL 7-18 creatinine, serum 1.29 mg/dL 0.55-1.30 Lab Report: Comp. Metabolic Panel, Lipid Panel, HGBA1C, CBC, MICROALB/CR ... - Chemistry albumin/creatinine ratio, urine 30 - 300 mg/g mg/g{creat} 0-29 sodium, serum 138 mmol/L 721-541 1291/03/18 carbon dioxide, venous blood 25.5 mmol/L 21.0-32.0 potassium, serum 4.6 mmol/L 3.5-5.2 chloride, serum 101 mmol/L 98-107 blood glucose 129 mg/dL 65-110 urea nitrogen, blood 20 mg/dL 7-18 creatinine, serum 1.87 mg/dL 0.55-1.30 alanine aminotransferase (SGPT), serum 26 U/L 12-78 aspartate aminotransferase (SGOT), serum 20 U/L 15-37 calcium, serum 8.8 mg/dL 8.5-10.1 bilirubin, serum, total 0.40 mg/dL 0.00-1.00 cholesterol, serum 251 mg/dL 119-593 8317/03/18 triglyceride, serum, fasting 135 mg/dL 30-200 HDL [...] ... - Lab microalbumin, urine 150 0-19 Lab Report: Prostatic Specific Ag - Chemistry prostate specific antigen 0.80 ng/mL 0.00-4.00 Encounters Code Encounter Date Provider Facility CPT-64029 Level 4 Est. Patient 08:53:08 CDT Capo Poe MD [facility] CPT-15350 Level 4 Est. Patient 10:22:57 CDT Capo Poe MD [facility] CPT-68808 Level 4 Est. Patient 13:44:30 CDT Capo Poe MD [facility] CPT-89747 Level 3 Est. Patient 14:59:32 [employer] WORK[employer] Capo Poe MD [facility] CPT-44985 Level 4 Est. Patient 10:46:15 LINEN WORKER Capo Poe MD [facility] CPT-20914 Level 3 Est. Patient 11:00:53 CDT Capo Poe MD [facility] CPT-29668 Level 3 Est. Patient 09:39:35 CDT Capo Poe MD [facility] CPT-31920 Level 3 Est. Patient 09:27:01 CDT Capo Poe MD [facility] CPT-54831 Level 3 Est. Patient 18:37:08 CDT Zoran Arzola MD [facility] CPT-48366 Level 3 Est. Patient 15:00:28 CDT Capo Poe MD [facility] CPT-11902 Level 3 Est. Patient 08:20:19 CDT Zoran Arzola MD [facility] CPT-72281 Level 3 Est. Patient 09:22:21 CDT Capo Poe MD [facility] CPT-19815 Level 4 Est. Patient 10:21:30 LINEN WORKER Capo Poe MD [facility] CPT-26864 Level 3 Est. Patient 17:08:51 LIN[employer] WORKER Zoran Arzola MD [facility] CPT-83814 Level 4 Est. Patient 09:44:42 CDT Capo Poe MD [facility] CPT-98282 Level 4 Est. Patient 10:39:29 CDT Capo Poe MD [facility] CPT-39349 Level 3 Est. Patient 17:45:23 CDT Zoran Arzola MD [facility] CPT-91193 Level 4 Est. Patient 08:50:44 CDT Capo Poe MD [facility] CPT-80371 Level 3 Est. Patient 10:39:51 LINEN WORKER Capo Poe MD [facility] CPT-55258 Level 4 Est. Patient 09:44:24 LINEN WORKER Capo Poe MD [facility] CPT-29111 Level 3 Est. Patient 14:48:42 LINEN WORKER Zoran Arzola MD [facility] CPT-11454 Level 4 Est. Patient 10:24:02 CDT Capo Poe MD [facility] CPT-41972 Level 3 Est. Patient 15:42:00 CDT Maya WRIGHTP [facility] CPT-53822 Level 4 Est. Patient 13:34:15 CDT Capo Poe MD [facility] CPT-15293 Level 3 Est. Patient 15:32:10 LINEN WORKER Zoran Arzola MD [facility] CPT-96921 Level 3 New Patient 17:17:19 LINEN WORKER Zoran Arzola MD [facility] CPT-19215 Level 4 Est. Patient 10:25:01 LINEN WORKER Capo Poe MD [facility] CPT-80009 Level 3 Est. Patient 10:10:42 CDT Zoran Arzola MD [facility] CPT-92117 Level 3 Est. Patient 22:30:02 CDT Zoran Arzola MD [facility] CPT-46319 Level 4 Est. Patient 09:54:20 CDT Caop Poe MD [facility] CPT-11237 Level 3 Est. Patient 10:48:30 CDT Capo Poe MD [facility] CPT-39404 Level 3 Est. Patient 11:24:45 CDT Capo Poe MD [facility] CPT-92038 Level 3 Est. Patient 15:23:48 LINEN WORKER Capo Poe MD [facility] CPT-93044 Level 3 Est. Patient 15:10:03 LINEN WORKER Capo Poe MD [facility] CPT-90505 Level 3 Est. Patient 16:18:40 CDT Zoran Arzola MD [facility] Procedures Code Procedure Name Date Entry Date Standard Description CPT-05139 Venipuncture Draw Fee 09:32:34 CDT CPT-G0438 Initial Annual Wellness Exam 10:24:35 CDT CPT-51668 Venipuncture Draw Fee 09:46:29 CDT CPT-88777 Venipuncture Draw Fee 14:30:06 CDT CPT-78428 Venipuncture Draw Fee 10:58:22 CDT CPT-97594 Abd single AP View 08:32:00 CDT CPT-60402 Postop F/U Visit 21:13:08 CDT CPT-98523 Abd single AP View 15:50:24 CDT CPT-61896 Cystoscopy W/rem FB 15:21:28 CDT CPT-94691 Abd single AP View 14:06:45 CDT CPT-15541 Postop F/U Visit 09:48:32 CDT CPT-48704 Abd single AP View 13:58:26 CDT CPT-94061 Hip comp min 2V 10:27:18 LINEN WORKER CPT-75759 Urine Dip (Floor Use Only) 13:41:01 LINEN WORKER CPT-80593 Postop F/U Visit 11:17:48 CDT CPT-LR Lesion Removal 11:50:22 CDT CPT-OV Office Visit 11:50:22 CDT CPT-21424 Pneumovax 23 10:55:48 CDT CPT-79726 Administration single or combination vaccine inc oral 10 :55:48 CDT CPT-Cryo Cryotherapy 11:18:11 CDT CPT-OV Office Visit 11:18:11 CDT CPT-37359 LS spine AP and Lat 09:05:22 CDT CPT-30472 Bladder Scan 15:42:00 CDT CPT-57484 Cystoscopy 15:42:00 CDT CPT-OV Office Visit 16:37:19 LINEN WORKER CPT-15337 Bladder Scan 15:32:10 LINEN WORKER CPT-16440 Cystoscopy 15:32:10 LINEN WORKER CPT-41138 Abd single AP View 14:05:59 LINEN WORKER CPT-22470 Pill cam small bowel 09:48:39 LINEN WORKER CPT-17792 Urine Dip (Floor Use Only) 17:17:19 LINEN WORKER CPT-05586 Bladder Scan 17:17:19 LINEN WORKER CPT-OV Office Visit 11:50:26 LINEN WORKER CPT-08208 Bladder Scan 10:10:42 CDT CPT-60153 Venipuncture Draw Fee 09:14:04 CDT CPT-26370 Chest 2V Frontal and Lat 10:10:49 CDT CPT-10778 LS spine comp w obliq 11:50:11 CDT CPT-96799 Venipuncture Draw Fee 08:52:57 LINEN WORKER CPT-94211 Cystoscopy W/rem FB 18:37:28 CDT CPT-67184 Abd single AP View 16:18:40 CDT CPT-28389 Abd compl w upright 17:30:59 CDT
--- OUTSIDE RECORDS SUMMARY | 2016-11-22 15:22 | XMS REPORT | Clinical Summary ---
Author Author Admin, MARGE Organization [facility] Address Unknown Phone Unavailable Allergies, Adverse [...] TEIXEIRA Anemia, unspecified Anemia, iron deficiency 280.9 Active Capo Poe MD Iron deficiency anemia, unspecified [...] malignant neoplasms of prostate Pruritic rash 698.8 Active Capo Poe MD Other specified pruritic conditions NAUSEA AND VOMITING ICD-787.01 Inactive Capo Poe MD CALCULUS OF KIDNEY ICD-592.0 Inactive Capo Poe MD URETERAL CALCULUS ICD-592.1 Inactive Capo oPe MD FLANK PAIN ICD-789.09 Inactive Capo Poe [...] Poe MD Renal Calculus ICD-592.9 Inactive Capo Peo MD Urethral calculus ICD-594.2 Inactive Capo Poe MD Chest pain ICD-786.50 Inactive Capo Poe MD Prostate cancer screening ICD-V76.44 Inactive Capo Poe MD Medication List Medication Instructions Start Date Stop Date Generic Name NDC Status Provider Patient Instruction HYDROXYZINE HCL 25 MG TAB 0.5 to 1 po q6hr PRN Itching HYDROXYZINE HCL 05439280562 Active Capo Poe MD Active TRIAMCINOLONE ACETONIDE 0.1 % CREA Apply to affected areas TID for up to 2 weeks TRIAMCINOLONE ACETONIDE 69430667355 Active Capo Poe MD Active NICOTINE 14 MG/24HR TRANS PT24 Apply/Change q 24hr NICOTINE 71885318314 No Longer Active Capo Poe MD Active TRAMADOL HCL 50 MG TABS 1-2 tablets every 6 hours as needed for pain TRAMADOL HCL 97569997023 No Longer Active Capo Poe MD Active SERTRALINE HCL 100 MG ORAL TABS take 1 tab daily SERTRALINE HCL 33550070505 No Longer Active Capo Poe MD Active LISINOPRIL-HYDROCHLOROTHIAZIDE 10-12.5 MG TABS 0.5 tab by mouth daily LISINOPRIL-HYDROCHLOROTHIAZIDE 68342800340 Active Capo Poe MD Active OMEPRAZOLE 20 MG CPDR 1 tablet by mouth daily OMEPRAZOLE 39221135164 Active Capo Poe MD Active WELLBUTRIN SR 150 MG ORAL [id number] 1 po BID BUPROPION HCL 32498938603 Active Capo Poe MD Active LORTAB 7.5-325 MG ORAL TABS 1 po q 6 hr prn pain HYDROCODONE- ACETAMINOPHEN 59733365933 Active Capo Poe MD Active FLOMAX 0.4 MG CAPS Take one by mouth daily TAMSULOSIN HCL 03665254990 Active Capo Poe MD Active MIRALAX PACK 1 po qd PRN Constipation POLYETHYLENE GLYCOL 3350 46499725886 Active Capo Poe MD Active DULERA 100-5 MCG/ACT AERO 2 puffs BID MOMETASONE FURO- FORMOTEROL FUM 26786805984 Active Capo Poe MD Active ZOLOFT 100 MG TABS 1 po daily SERTRALINE HCL 46140561337 No Longer Active Zoran Arzola MD Active FERROUS SULFATE 325 (65 FE) MG TABS 1 tablet by mouth daily FERROUS SULFATE 92709078273 No Longer Active Capo Poe MD Active HYDROCODONE-ACETAMINOPHEN 7.5-300 MG TABS take one every six hours HYDROCODONE-ACETAMINOPHEN 66884479692 No Longer Active Capo Poe MD Active TRIAMCINOLONE ACETONIDE 0.1 % OINT Apply to affected areas TID for up to 2 weeks TRIAMCINOLONE ACETONIDE 11991098215 No Longer Active Joe Vargas RN Active FERROUS SULFATE 325 (65 FE) MG TABS Take one by mouth daily FERROUS SULFATE 70243354355 No Longer Active Capo Poe MD Active TRIAMCINOLONE ACETONIDE 0.1 % OINT Apply to affected areas TID for up to 2 weeks TRIAMCINOLONE ACETONIDE 94000874003 No Longer Active Capo Poe MD Active ADULT ASPIRIN LOW STRENGTH 81 MG TBDP qd ASPIRIN 32675975021 Active Zoran Arzola MD Active ALEVE 220 MG TAB prn NAPROXEN SODIUM 23464595630 Active Capo Poe MD Active MACROBID 100 MG CAP 1 cap by mouth twice daily NITROFURANTOIN MONOHYD MACRO 94681150348 No Longer Active Dona Becker Active AZITHROMYCIN 250 MG TABS 2 po qd x 1 day, then 1 po qd x 4 days AZITHROMYCIN 21518421394 No Longer Active Capo Poe MD Active FISH OIL 500 MG CAPS by mouth twice a day OMEGA-3 FATTY ACIDS 72530526002 Active Capo Poe MD Active FLAXSEED OIL 1000 MG CAPS Take two by mouth daily FLAXSEED (LINSEED) 01245738886 Active Zoran Arzola MD Active RED YEAST RICE 600 MG CAPS Take two by mouth daily RED YEAST RICE EXTRACT 92163004565 Active Zoran Arzola MD Active MULTIVITAMINS CAPS Take one by mouth daily MULTIPLE VITAMIN 76288417981 Active Zoran Arzola MD Active ICAPS MV TABS 2 po daily MULTIPLE VITAMINS-MINERALS 82024471276 Active Jam Arnold DO Active MACROBID 100 MG CAP 1 cap by mouth twice daily MACROBID 100 MG CAP 2563340 NITROFURANTOIN MONOHYD MACRO Inactive FERROUS SULFATE 325 (65 FE) MG TABS Take one by mouth daily FERROUS SULFATE 325 (65 FE) MG TABS 350896 FERROUS SULFATE Inactive HYDROCODONE-ACETAMINOPHEN 7.5-300 MG TABS take one every six hours HYDROCODONE-ACETAMINOPHEN 7.5-300 MG TABS 936250 HYDROCODONE- ACETAMINOPHEN Inactive FERROUS SULFATE 325 (65 FE) MG TABS 1 tablet by mouth daily FERROUS SULFATE 325 (65 FE) MG TABS 134401 FERROUS SULFATE Inactive ZOLOFT 100 MG TABS 1 po daily ZOLOFT 100 MG TABS 585533 SERTRALINE HCL Inactive SERTRALINE HCL 100 MG ORAL TABS take 1 tab daily SERTRALINE HCL 100 MG ORAL TABS 622465 SERTRALINE HCL Inactive TRAMADOL HCL 50 MG TABS 1-2 tablets every 6 hours as needed for pain TRAMADOL HCL 50 MG TABS 907172 TRAMADOL HCL Inactive NICOTINE 14 MG/24HR TRANS PT24 Apply/Change q 24hr NICOTINE 14 MG/24HR TRANS PT24 517012 NICOTINE Inactive AZITHROMYCIN 250 MG TABS 2 po qd x 1 day, then 1 po qd x 4 days AZITHROMYCIN 250 MG TABS 7132651 AZITHROMYCIN Inactive TRIAMCINOLONE ACETONIDE 0.1 % OINT Apply to affected areas TID for up to 2 weeks TRIAMCINOLONE ACETONIDE 0.1 % OINT 9966629 TRIAMCINOLONE ACETONIDE Inactive TRIAMCINOLONE ACETONIDE 0.1 % OINT Apply to affected areas TID for up to 2 weeks TRIAMCINOLONE ACETONIDE 0.1 % OINT 5604192 TRIAMCINOLONE ACETONIDE Inactive Advance Directives Directive Description Start Date PERMISSION TO SHARE Immunizations Vaccine Administration Date Value Standard Description pneumococcal immunization administered Pneumovax 23 [[id number]] pneumococcal polysaccharide vaccine, 23 valent Vital Signs Date Name Value Unit Range Description blood pressure, diastolic - 8462-4 74 mm[Hg] [...] BP sys pulse rate E&M - 8867-4 89 /min Heart rate temperature E&M 97.9 [degF] Body temperature weight E&M - 3141-9 137.3 [lb_av] Weight Measured blood pressure, diastolic - 8462-4 73 mm[Hg] BP [place] blood pressure, systolic - 8480-6 116 mm[Hg] BP sys pulse rate E&M - 8867-4 69 /min Heart rate temperature E&M 96.2 [degF] Body temperature weight E&M - 3141-9 138.2 [lb_av] Weight Measured blood pressure, diastolic - [...] E&M - 3141-9 151.7 [lb_av] Weight Measured Diagnostic Results Date Name [...] Panel - Chemistry sodium, serum 139 mmol/L 730-657 3709/07/30 potassium, serum 4.7 mmol/L 3.5-5.2 chloride, serum 101 mmol/L 98-107 carbon dioxide, venous blood 34.8 mmol/L 21.0-32.0 blood glucose 124 mg/dL 65-110 calcium, serum 8.9 mg/dL 8.5-10.1 urea nitrogen, blood 18 mg/dL 7-18 creatinine, serum 1.40 mg/dL 0.60-1.30 Lab Report: Comp. Metabolic Panel, Lipid Panel, HGBA1C, CBC, MICROALB/CR ... - Chemistry sodium, serum 138 mmol/L 412-581 4591/03/18 carbon dioxide, venous blood 25.5 mmol/L 21.0-32.0 potassium, serum 4.6 mmol/L 3.5-5.2 chloride, serum 101 mmol/L 98-107 blood glucose 129 mg/dL 65-110 urea nitrogen, blood 20 mg/dL 7-18 creatinine, serum 1.87 mg/dL 0.55-1.30 alanine aminotransferase (SGPT), serum 26 U/L 12-78 aspartate aminotransferase (SGOT), serum 20 U/L 15-37 calcium, serum 8.8 mg/dL 8.5-10.1 bilirubin, serum, total 0.40 mg/dL 0.00-1.00 cholesterol, serum 251 mg/dL 580-103 6607/03/18 triglyceride, serum, fasting 135 mg/dL 30-200 HDL [...] Specific Ag - Chemistry prostate specific antigen 0.62 ng/mL 0.00-4.00 prostate specific antigen 0.80 ng/mL 0.00-4.00 prostate specific antigen 1.11 ng/mL 0.00-4.00 Office Visit: 4 mo f/u prostate cancer - Chemistry RBC, urine, dipstick 3+ protein, total urine random 2+ mg/dL Office Visit: 4 mo f/u prostate cancer - Urinalysis urinalysis, routine Clean Catch culture status Yes ketones, urine, by test strip negative bilirubin, urine negative glucose, urine, semiquantitative negative pH, urine, semiquantitative 7.5 specific gravity, urine 1.010 urine color yellow appearance, urine clear leukocyte esterase, urine, by dipstick 3+ nitrite, urine, semiquantitative positive urobilinogen, urine, semiquantitative (dipstick) 0.2 protein, urine, semiquantitative (dipstick) negative Encounters Code Encounter Date Provider Facility CPT-45919 Level 3 Est. Patient 14:59:32 MARKETING COMMUNICATIONS MANAGER Capo Poe MD [facility] CPT-27149 Level 4 Est. Patient 10:46:15 MARKETING COMMUNICATIONS MANAGER Capo Poe MD [facility] CPT-57570 Level 3 Est. Patient 11:00:53 CDT Capo Poe MD [facility] CPT-83076 Level 3 Est. Patient 09:39:35 CDT Capo Poe MD [facility] CPT-78955 Level 3 Est. Patient 09:27:01 CDT Capo Poe MD [facility] CPT-15408 Level 3 Est. Patient 18:37:08 CDT Zoran Arzola MD [facility] CPT-56066 Level 3 Est. Patient 15:00:28 CDT Capo Poe MD [facility] CPT-47099 Level 3 Est. Patient 08:20:19 CDT Zoran Arzola MD [facility] CPT-56883 Level 3 Est. Patient 09:22:21 CDT Capo Poe MD [facility] CPT-56969 Level 4 Est. Patient 10:21:30 MARKETING COMMUNICATIONS MANAGER Capo Poe MD [facility] CPT-13391 Level 3 Est. Patient 17:08:51 MARKETING COMMUNICATIONS MANAGER Zoran Arzola MD [facility] CPT-35868 Level 4 Est. Patient 09:44:42 CDT Capo Poe MD [facility] CPT-74630 Level 4 Est. Patient 10:39:29 CDT Capo Poe MD [facility] CPT-27840 Level 3 Est. Patient 17:45:23 CDT Zoran Arzola MD [facility] CPT-23708 Level 4 Est. Patient 08:50:44 CDT Capo Poe MD [facility] CPT-80141 Level 3 Est. Patient 10:39:51 MARKETING COMMUNICATIONS MANAGER Capo Poe MD [facility] CPT-11270 Level 4 Est. Patient 09:44:24 MARKETING COMMUNICATIONS MANAGER Capo Poe MD [facility] CPT-45261 Level 3 Est. Patient 14:48:42 MARKETING COMMUNICATIONS MANAGER Zoran Arzola MD [facility] CPT-39256 Level 4 Est. Patient 10:24:02 CDT Capo Poe MD [facility] CPT-69954 Level 3 Est. Patient 15:42:00 CDT Maya Brownlee ERNST [facility] CPT-63816 Level 4 Est. Patient 13:34:15 CDT Capo Poe MD [facility] CPT-41066 Level 3 Est. Patient 15:32:10 MARKETING COMMUNICATIONS MANAGER Zoran Arzola MD [facility] CPT-12206 Level 3 New Patient 17:17:19 MARKETING COMMUNICATIONS MANAGER Zoran Arzola MD [facility] CPT-22547 Level 4 Est. Patient 10:25:01 MARKETING COMMUNICATIONS MANAGER Capo Poe MD [facility] CPT-68830 Level 3 Est. Patient 10:10:42 CDT Zoran Arzola MD [facility] CPT-32964 Level 3 Est. Patient 22:30:02 CDT Zoran Arzola MD [facility] CPT-06858 Level 4 Est. Patient 09:54:20 CDT Capo Poe MD [facility] CPT-85975 Level 3 Est. Patient 10:48:30 CDT Capo Poe MD [facility] CPT-32646 Level 3 Est. Patient 11:24:45 CDT Capo Poe MD [facility] CPT-26876 Level 3 Est. Patient 15:23:48 MARKETING COMMUNICATIONS MANAGER Capo Poe MD [facility] CPT-94956 Level 3 Est. Patient 15:10:03 MARKETING COMMUNICATIONS MANAGER Capo Poe MD [facility] CPT-03880 Level 3 Est. Patient 16:18:40 CDT Zoran Arzola MD [facility] Procedures Code Procedure Name Date Entry Date Standard Description CPT-32691 Venipuncture Draw Fee 09:46:29 CDT CPT-26741 Venipuncture Draw Fee 14:30:06 CDT CPT-86043 Venipuncture Draw Fee 10:58:22 CDT CPT-03068 Abd single AP View 08:32:00 CDT CPT-76994 Postop F/U Visit 21:13:08 CDT CPT-16008 Abd single AP View 15:50:24 CDT CPT-44164 Cystoscopy W/rem FB 15:21:28 CDT CPT-41558 Abd single AP View 14:06:45 CDT CPT-49359 Postop F/U Visit 09:48:32 CDT CPT-64944 Abd single AP View 13:58:26 CDT CPT-29470 Hip comp min 2V 10:27:18 MARKETING COMMUNICATIONS MANAGER CPT-03928 Urine Dip (Floor Use Only) 13:41:01 MARKETING COMMUNICATIONS MANAGER CPT-86995 Postop F/U Visit 11:17:48 CDT CPT-LR Lesion Removal 11:50:22 CDT CPT-OV Office Visit 11:50:22 CDT CPT-29612 Pneumovax 23 10:55:48 CDT CPT-85609 Administration single or combination vaccine inc oral 10 :55:48 CDT CPT-Cryo Cryotherapy 11:18:11 CDT CPT-OV Office Visit 11:18:11 CDT CPT-77310 LS spine AP and Lat 09:05:22 CDT CPT-05971 Bladder Scan 15:42:00 CDT CPT-60086 Cystoscopy 15:42:00 CDT CPT-OV Office Visit 16:37:19 MARKETING COMMUNICATIONS MANAGER CPT-37570 Bladder Scan 15:32:10 MARKETING COMMUNICATIONS MANAGER CPT-57213 Cystoscopy 15:32:10 MARKETING COMMUNICATIONS MANAGER CPT-66991 Abd single AP View 14:05:59 MARKETING COMMUNICATIONS MANAGER CPT-52086 Pill cam small bowel 09:48:39 MARKETING COMMUNICATIONS MANAGER CPT-88598 Urine Dip (Floor Use Only) 17:17:19 MARKETING COMMUNICATIONS MANAGER CPT-90032 Bladder Scan 17:17:19 MARKETING COMMUNICATIONS MANAGER CPT-OV Office Visit 11:50:26 MARKETING COMMUNICATIONS MANAGER CPT-35987 Bladder Scan 10:10:42 CDT CPT-34860 Venipuncture Draw Fee 09:14:04 CDT CPT-00649 Chest 2V Frontal and Lat 10:10:49 CDT CPT-52532 LS spine comp w obliq 11:50:11 CDT CPT-96283 Venipuncture Draw Fee 08:52:57 MARKETING COMMUNICATIONS MANAGER CPT-99463 Cystoscopy W/rem FB 18:37:28 CDT CPT-17856 Abd single AP View 16:18:40 CDT CPT-67594 Abd compl w upright 17:30:59 CDT
--- OUTSIDE RECORDS SUMMARY | 2016-11-22 15:23 | XMS REPORT | Clinical Summary ---
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 Simin [...] MG TABS 1 daily for infection LEVOFLOXACIN 28103473906 Active Leanna Baker APRN Active AZITHROMYCIN 250 MG ORAL TABS 2 po qd x 1, then 1 po qd x 4 AZITHROMYCIN 72265780304 Active Capo Poe MD Active PREDNISONE 20 MG ORAL TABS 2 po qd x 5 days PREDNISONE 33684733660 No Longer Active Capo Poe MD Active CARAFATE 1 GM ORAL TABS 1 tid SUCRALFATE 74386082906 Active Capo Poe MD Active RANITIDINE HCL 150 MG ORAL TABS 1 bid RANITIDINE HCL 14585839752 Active Capo Poe MD Active MULTIVITAMINS CAPS Take one by mouth daily MULTIPLE VITAMIN 11439943095 No Longer Active Capo Poe MD Active LISINOPRIL 10 MG TABS 1 tablet by mouth daily LISINOPRIL 79352086507 No Longer Active Capo Poe MD Active EQL IRON SUPPLEMENT THERAPY 325 MG ORAL TABS 1 tab po twice daily FERROUS SULFATE 79155133631 Active Jasmin Arboledalas RMA Active D ORAL TABS 2000 iu weekly D ORAL TABS Active Capo Poe MD Active CITALOPRAM HYDROBROMIDE 20 MG TABS 1 tablet by mouth daily CITALOPRAM HYDROBROMIDE 99393844313 Active Capo Poe MD Active CLARITIN 5 MG ORAL CHEW 1 tab po q day LORATADINE 24923646619 Active Felisa Daphney RMA Active VIIBRYD STARTER PACK 10 & 20 MG ORAL KIT 1 po qd as directed 2015 VILAZODONE HCL 99877459281 No Longer Active Felisa Daphney RMA Active HYDROXYZINE HCL 25 MG TAB 1 po qHS PRN Insomnia HYDROXYZINE HCL 51540602531 Active Capo Poe MD Active LORTAB 7.5-325 MG ORAL TABS 1 po q 6 hr prn pain HYDROCODONE- ACETAMINOPHEN 90490805090 No Longer Active Capo Poe MD Active FLOMAX 0.4 MG CAPS Take one by mouth daily TAMSULOSIN HCL 54221486788 No Longer Active Capo Poe MD Active TRIAMCINOLONE ACETONIDE 0.1 % CREA Apply to affected areas TID for up to 2 weeks TRIAMCINOLONE ACETONIDE 98100002748 Active Capo Poe MD Active NICOTINE 14 MG/24HR TRANS PT24 Apply/Change q 24hr NICOTINE 85960671395 No Longer Active Capo Poe MD Active TRAMADOL HCL 50 MG TABS 1-2 tablets every 6 hours as needed for pain TRAMADOL HCL 48458524229 No Longer Active Capo Poe MD Active SERTRALINE HCL 100 MG ORAL TABS take 1 tab daily SERTRALINE HCL 52292021928 No Longer Active Capo Poe MD Active LISINOPRIL-HYDROCHLOROTHIAZIDE 10-12.5 MG TABS 0.5 tab by mouth daily LISINOPRIL-HYDROCHLOROTHIAZIDE 86560889190 No Longer Active Capo Poe MD Active OMEPRAZOLE 20 MG CPDR 1 tablet by mouth daily OMEPRAZOLE 33934121374 Active Capo Poe MD Active WELLBUTRIN SR 150 MG ORAL [id number]-[id number] 1 po BID BUPROPION HCL 88441034236 No Longer Active Capo Poe MD Active MIRALAX PACK 1 po qd PRN Constipation POLYETHYLENE GLYCOL 3350 56091739713 Active Capo Poe MD Active DULERA 100-5 MCG/ACT AERO 2 puffs BID MOMETASONE FURO- FORMOTEROL FUM 73613263421 Active Capo Poe MD Active ZOLOFT 100 MG TABS 1 po daily SERTRALINE HCL 82817556755 No Longer Active Zoran Arzola MD Active FERROUS SULFATE 325 (65 FE) MG TABS 1 tablet by mouth daily FERROUS SULFATE 10923078855 No Longer Active Capo Poe MD Active HYDROCODONE-ACETAMINOPHEN 7.5-300 MG TABS take one every six hours HYDROCODONE-ACETAMINOPHEN 28731400766 No Longer Active Capo Poe MD Active TRIAMCINOLONE ACETONIDE 0.1 % OINT Apply to affected areas TID for up to 2 weeks TRIAMCINOLONE ACETONIDE 20395197621 No Longer Active oJe Vargas RN Active FERROUS SULFATE 325 (65 FE) MG TABS Take one by mouth daily FERROUS SULFATE 45881575780 No Longer Active Capo Poe MD Active TRIAMCINOLONE ACETONIDE 0.1 % OINT Apply to affected areas TID for up to 2 weeks TRIAMCINOLONE ACETONIDE 48357131798 No Longer Active Capo Poe MD Active ADULT ASPIRIN LOW STRENGTH 81 MG TBDP qd ASPIRIN 29918840878 Active Zoran Arzola MD Active ALEVE 220 MG TAB prn NAPROXEN SODIUM 04704955845 Active Capo Poe MD Active MACROBID 100 MG CAP 1 cap by mouth twice daily NITROFURANTOIN MONOHYD MACRO 67279134694 No Longer Active Dona Becker Active AZITHROMYCIN 250 MG TABS 2 po qd x 1 day, then 1 po qd x 4 days AZITHROMYCIN 85907339031 No Longer Active Capo Poe MD Active FISH OIL 500 MG CAPS by mouth twice a day OMEGA-3 FATTY ACIDS 32445065855 Active Capo Poe MD Active FLAXSEED OIL 1000 MG CAPS Take two by mouth daily FLAXSEED (LINSEED) 49540389379 Active Zoran Arzola MD Active RED YEAST RICE 600 MG CAPS Take two by mouth daily RED YEAST RICE EXTRACT 73454443162 Active Zoran Arzola MD Active ICAPS MV TABS 2 po daily MULTIPLE VITAMINS-MINERALS 79754505847 Active Jam Arnold DO Active MACROBID 100 MG CAP 1 cap by mouth twice daily MACROBID 100 MG CAP 0318890 NITROFURANTOIN MONOHYD MACRO Inactive FERROUS SULFATE 325 (65 FE) MG TABS Take one by mouth daily FERROUS SULFATE 325 (65 FE) MG TABS 842108 FERROUS SULFATE Inactive HYDROCODONE-ACETAMINOPHEN 7.5-300 MG TABS take one every six hours HYDROCODONE-ACETAMINOPHEN 7.5-300 MG TABS 203360 HYDROCODONE- ACETAMINOPHEN Inactive FERROUS SULFATE 325 (65 FE) MG TABS 1 tablet by mouth daily FERROUS SULFATE 325 (65 FE) MG TABS 132486 FERROUS SULFATE Inactive ZOLOFT 100 MG TABS 1 po daily ZOLOFT 100 MG TABS 079710 SERTRALINE HCL Inactive SERTRALINE HCL 100 MG ORAL TABS take 1 tab daily SERTRALINE HCL 100 MG ORAL TABS 017980 SERTRALINE HCL Inactive TRAMADOL HCL 50 MG TABS 1-2 tablets every 6 hours as needed for pain TRAMADOL HCL 50 MG TABS 425246 TRAMADOL HCL Inactive NICOTINE 14 MG/24HR TRANS PT24 Apply/Change q 24hr NICOTINE 14 MG/24HR TRANS PT24 263969 NICOTINE Inactive FLOMAX 0.4 MG CAPS Take one by mouth daily FLOMAX 0.4 MG CAPS 514517 TAMSULOSIN HCL Inactive LORTAB 7.5-325 MG ORAL TABS 1 po q 6 hr prn pain LORTAB 7.5- 325 MG ORAL TABS HYDROCODONE-ACETAMINOPHEN Inactive VIIBRYD STARTER PACK 10 & 20 MG ORAL KIT 1 po qd as directed 2015 VIIBRYD STARTER PACK 10 & 20 MG ORAL KIT VILAZODONE HCL Inactive LISINOPRIL 10 MG TABS 1 tablet by mouth daily LISINOPRIL 10 MG TABS 563100 LISINOPRIL Inactive MULTIVITAMINS CAPS Take one by mouth daily MULTIVITAMINS CAPS MULTIPLE VITAMIN Inactive AZITHROMYCIN 250 MG TABS 2 po qd x 1 day, then 1 po qd x 4 days AZITHROMYCIN 250 MG TABS 2556997 AZITHROMYCIN Inactive TRIAMCINOLONE ACETONIDE 0.1 % OINT Apply to affected areas TID for up to 2 weeks TRIAMCINOLONE ACETONIDE 0.1 % OINT 3424505 TRIAMCINOLONE ACETONIDE Inactive TRIAMCINOLONE ACETONIDE 0.1 % OINT Apply to affected areas TID for up to 2 weeks TRIAMCINOLONE ACETONIDE 0.1 % OINT 9579658 TRIAMCINOLONE ACETONIDE Inactive PREDNISONE 20 MG ORAL TABS 2 po qd x 5 days PREDNISONE 20 MG ORAL TABS 589359 PREDNISONE Inactive Advance Directives Directive Description Start [...] Measured blood pressure, diastolic 54 mm[Hg] BP ausitn blood pressure, systolic 134 mm[Hg] BP sys pulse rate E&M 71 /min Heart rate temperature E&M 97.4 [degF] Body temperature weight E&M 144.5 [lb_av] Weight Measured Diagnostic Results Date Name Value Unit Range Description Chart Maintenance: Hemoccult added to flow sheet - Chemistry occult blood, stool (E&M) Positive Lab Report: CBC W/DIFF, Comp. Metabolic Panel - Chemistry sodium, serum 137 mmol/L 910-992 9584/07/26 carbon dioxide, venous blood 27.3 mmol/L 21.0-32.0 [...] ... - Chemistry sodium, serum 141 mmol/L 076-931 2321/01/27 carbon dioxide, venous blood 29.7 mmol/L 21.0-32.0 [...] % 11.0-15.0 platelet count 214 THOUSAND/UL 10*3/mm3 562-495 8329/03/31 mean platelet volume 8.4 fL 7.5-12.5 Encounters Code Encounter Date Provider Facility CPT-27649 Level 3 Est. Patient 11:31:49 CDT Leanna Baker APRN [facility] CPT-86215 Level 3 Est. Patient 09:44:06 CDT Capo Poe MD [facility] CPT-68946 Level 4 Est. Patient 09:26:11 LIVE GAMES DEALER Capo Poe MD [facility] CPT-64100 Level 4 Est. Patient 08:53:08 CDT Capo Poe MD [facility] CPT-35406 Level 4 Est. Patient 10:22:57 CDT Capo Poe MD [facility] CPT-04749 Level 4 Est. Patient 13:44:30 CDT Capo Poe MD [facility] CPT-91482 Level 3 Est. Patient 14:59:32 LIVE GAMES DEALER Capo Poe MD [facility] CPT-83702 Level 4 Est. Patient 10:46:15 LIVE GAMES DEALER Capo Poe MD [facility] CPT-80057 Level 3 Est. Patient 11:00:53 CDT Capo Poe MD [facility] CPT-71232 Level 3 Est. Patient 09:39:35 CDT Capo Poe MD [facility] CPT-65279 Level 3 Est. Patient 09:27:01 CDT Capo Poe MD [facility] CPT-34474 Level 3 Est. Patient 18:37:08 CDT Zoran Arzola MD [facility] CPT-88257 Level 3 Est. Patient 15:00:28 CDT Capo Poe MD [facility] CPT-43140 Level 3 Est. Patient 08:20:19 CDT Zoran Arzola MD [facility] CPT-64363 Level 3 Est. Patient 09:22:21 CDT Capo Poe MD [facility] CPT-86691 Level 4 Est. Patient 10:21:30 LIVE GAMES DEALER Capo Poe MD [facility] CPT-38151 Level 3 Est. Patient 17:08:51 LIVE GAMES DEALER Zoran Arzola MD [facility] CPT-28270 Level 4 Est. Patient 09:44:42 CDT Capo Poe MD [facility] CPT-40531 Level 4 Est. Patient 10:39:29 CDT Capo Poe MD [facility] CPT-14286 Level 3 Est. Patient 17:45:23 CDT Zoran Arzola MD [facility] CPT-63276 Level 4 Est. Patient 08:50:44 CDT Capo Poe MD [facility] CPT-31216 Level 3 Est. Patient 10:39:51 LIVE GAMES DEALER Capo Poe MD [facility] CPT-39382 Level 4 Est. Patient 09:44:24 LIVE GAMES DEALER Capo Poe MD [facility] CPT-20810 Level 3 Est. Patient 14:48:42 LIVE GAMES DEALER Zoran Arzola MD [facility] CPT-77264 Level 4 Est. Patient 10:24:02 CDT Capo Poe MD [facility] CPT-91236 Level 3 Est. Patient 15:42:00 CDT Maya DUKES [facility] CPT-30060 Level 4 Est. Patient 13:34:15 CDT Capo Poe MD [facility] CPT-95332 Level 3 Est. Patient 15:32:10 LIVE GAMES DEALER Zoran Arzola MD [facility] CPT-87760 Level 3 New Patient 17:17:19 LIVE GAMES DEALER Zoran Arzola MD [facility] CPT-13820 Level 4 Est. Patient 10:25:01 LIVE GAMES DEALER Capo Poe MD [facility] CPT-54130 Level 3 Est. Patient 10:10:42 CDT Zoran Arzola MD [facility] CPT-89233 Level 3 Est. Patient 22:30:02 CDT Zoran Arzola MD [facility] CPT-02960 Level 4 Est. Patient 09:54:20 CDT Capo Poe MD [facility] CPT-69280 Level 3 Est. Patient 10:48:30 CDT Capo Poe MD [facility] CPT-41042 Level 3 Est. Patient 11:24:45 CDT Capo Poe MD [facility] CPT-06117 Level 3 Est. Patient 15:23:48 LIVE GAMES DEALER Capo Poe MD [facility] CPT-10799 Level 3 Est. Patient 15:10:03 LIVE GAMES DEALER Capo Poe MD [facility] CPT-65941 Level 3 Est. Patient 16:18:40 CDT Zoran Arzola MD [facility] Procedures Code Procedure Name Date Entry Date Standard Description CPT-69628 Chest 2V Frontal and Lat - XRAY USE ONLY 11:51:24 CDT CPT-56029 Venipuncture Draw Fee 11:31:49 CDT CPT-95903 Hemoccult IFOBT - LAB USE ONLY 14:11:43 LIVE GAMES DEALER CPT-64232 TPSA - LAB USE ONLY 10:37:52 LIVE GAMES DEALER CPT-33644 TSH - LAB USE ONLY 10:37:51 LIVE GAMES DEALER CPT-66194 CMP - LAB USE ONLY 10:37:51 LIVE GAMES DEALER CPT-67628 CBC with Diff - LAB USE ONLY 10:37:51 LIVE GAMES DEALER CPT-37965 Venipuncture Draw Fee 10:37:51 LIVE GAMES DEALER CPT-000 Give Pneumovax 10:39:30 CDT CPT-74115 Venipuncture Draw Fee 09:32:34 CDT CPT-G0438 Initial Annual Wellness Exam 10:24:35 CDT CPT-66642 Venipuncture Draw Fee 09:46:29 CDT CPT-53762 Venipuncture Draw Fee 14:30:06 CDT CPT-98914 Venipuncture Draw Fee 10:58:22 CDT CPT-11584 Abd single AP View 08:32:00 CDT CPT-83222 Postop F/U Visit 21:13:08 CDT CPT-81663 Abd single AP View 15:50:24 CDT CPT-73049 Cystoscopy W/rem FB 15:21:28 CDT CPT-61220 Abd single AP View 14:06:45 CDT CPT-85176 Postop F/U Visit 09:48:32 CDT CPT-49664 Abd single AP View 13:58:26 CDT CPT-00858 Hip comp min 2V 10:27:18 LIVE GAMES DEALER CPT-26751 Urine Dip (Floor Use Only) 13:41:01 LIVE GAMES DEALER CPT-81527 Postop F/U Visit 11:17:48 CDT CPT-LR Lesion Removal 11:50:22 CDT CPT-OV Office Visit 11:50:22 CDT CPT-02047 Pneumovax 23 10:55:48 CDT CPT-14595 Administration single or combination vaccine inc oral 10 :55:48 CDT CPT-Cryo Cryotherapy 11:18:11 CDT CPT-OV Office Visit 11:18:11 CDT CPT-96821 LS spine AP and Lat 09:05:22 CDT CPT-05995 Bladder Scan 15:42:00 CDT CPT-80262 Cystoscopy 15:42:00 CDT CPT-OV Office Visit 16:37:19 LIVE GAMES DEALER CPT-81895 Bladder Scan 15:32:10 LIVE GAMES DEALER CPT-97057 Cystoscopy 15:32:10 LIVE GAMES DEALER CPT-91892 Abd single AP View 14:05:59 LIVE GAMES DEALER CPT-33838 Pill cam small bowel 09:48:39 LIVE GAMES DEALER CPT-05115 Urine Dip (Floor Use Only) 17:17:19 LIVE GAMES DEALER CPT-97148 Bladder Scan 17:17:19 LIVE GAMES DEALER CPT-OV Office Visit 11:50:26 LIVE GAMES DEALER CPT-37028 Bladder Scan 10:10:42 CDT CPT-28249 Venipuncture Draw Fee 09:14:04 CDT CPT-49566 Chest 2V Frontal and Lat 10:10:49 CDT CPT-50421 LS spine comp w obliq 11:50:11 CDT CPT-46733 Venipuncture Draw Fee 08:52:57 LIVE GAMES DEALER CPT-39042 Cystoscopy W/rem FB 18:37:28 CDT CPT-69390 Abd single AP View 16:18:40 CDT CPT-82592 Abd compl w upright 17:30:59 CDT
--- OUTSIDE RECORDS SUMMARY | 2016-11-22 15:24 | XMS REPORT | Clinical Summary ---
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 Inactive Capo Poe MD RENAL CALCULUS ICD-592.9 Inactive Capo Poe MD SCIATICA ICD-724.3 Inactive Capo Poe MD 2011 BRONCHITIS, ACUTE ICD-466.0 Inactive Capo Poe MD CALCULUS OF KIDNEY ICD-592.0 Inactive Capo Poe MD ELEVATED P S A ICD-790.93 Inactive Capo Poe MD URINARY TRACT INFECTION ICD-599.0 Inactive Capo Poe MD U T I-RECURRENT ICD-599.0 Inactive Capo Poe MD BLADDER CALCULUS ICD-594.1 Inactive Capo Poe MD HEMATURIA ICD-599.70 Inactive Capo Poe MD URINARY FREQUENCY ICD-788.41 Inactive Capo Poe MD COUGH ICD-786.2 Inactive Capo Poe MD BLADDER CALCULUS ICD-594.1 Inactive Capo Poe MD HEMATURIA ICD-599.70 Inactive Capo Poe MD U T I-RECURRENT ICD-599.0 Inactive Capo Poe MD RASH AND OTHER NONSPECIFIC SKIN ERUPTION ICD-782.1 Clyde Poe MD Ecchymoses, spontaneous ICD-782.7 Inactive Capo Poe MD Lumbar radiculopathy ICD-724.4 Inactive Capo Poe MD Near syncope ICD-780.2 Inactive Capo Poe MD Skin lesion ICD-709.9 Inactive 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 Inactive Capo Poe MD UTI ICD-599.0 Inactive Capo Poe MD Medication List Medication Instructions Start Date Stop Date Generic Name NDC Status Provider Patient Instruction MIRALAX PACK 1 po qd PRN Constipation POLYETHYLENE GLYCOL 3350 53470954156 Active Capo Poe MD Active DULERA 100-5 MCG/ACT AERO 2 puffs BID MOMETASONE FURO- FORMOTEROL FUM 32028748094 Active Capo Poe MD Active SERTRALINE HCL 100 MG ORAL TABS take 1 tab daily SERTRALINE HCL 77854085822 Active Capo Poe MD Active ZOLOFT 100 MG TABS 1 po daily SERTRALINE HCL 08611228806 No Longer Active Zoran Arzola MD Active FERROUS SULFATE 325 (65 FE) MG TABS 1 tablet by mouth daily FERROUS SULFATE 75341502771 No Longer Active Capo Poe MD Active TRAMADOL HCL 50 MG TABS 1-2 tablets every 6 hours as needed for pain TRAMADOL HCL 16834705821 Active Capo Poe MD Active HYDROCODONE-ACETAMINOPHEN 7.5-300 MG TABS take one every six hours HYDROCODONE-ACETAMINOPHEN 16080242105 No Longer Active Capo Poe MD Active TRIAMCINOLONE ACETONIDE 0.1 % OINT Apply to affected areas TID for up to 2 weeks TRIAMCINOLONE ACETONIDE 58247030051 No Longer Active Joe Vargas RN Active FERROUS SULFATE 325 (65 FE) MG TABS Take one by mouth daily FERROUS SULFATE 43702318700 No Longer Active Capo Poe MD Active TRIAMCINOLONE ACETONIDE 0.1 % OINT Apply to affected areas TID for up to 2 weeks TRIAMCINOLONE ACETONIDE 43314785146 No Longer Active Capo Poe MD Active ADULT ASPIRIN LOW STRENGTH 81 MG TBDP qd ASPIRIN 44550628025 Active Zoran Arzola MD Active ALEVE 220 MG TAB prn NAPROXEN SODIUM 92237917551 Active Capo Poe MD Active LISINOPRIL-HYDROCHLOROTHIAZIDE 10-12.5 MG TABS 1 tab by mouth daily LISINOPRIL-HYDROCHLOROTHIAZIDE 06297556394 Active Capo Poe MD Active MACROBID 100 MG CAP 1 cap by mouth twice daily NITROFURANTOIN MONOHYD MACRO 35344367976 No Longer Active Dona Becker Active AZITHROMYCIN 250 MG TABS 2 po qd x 1 day, then 1 po qd x 4 days AZITHROMYCIN 88077502054 No Longer Active Capo Poe MD Active FISH OIL 500 MG CAPS by mouth twice a day OMEGA-3 FATTY ACIDS 72207131905 Active Capo Poe MD Active FLAXSEED OIL 1000 MG CAPS Take two by mouth daily FLAXSEED (LINSEED) 56770011124 Active Zoran Arzola MD Active RED YEAST RICE 600 MG CAPS Take two by mouth daily RED YEAST RICE EXTRACT 49322715297 Active Zoran Arzola MD Active MULTIVITAMINS CAPS Take one by mouth daily MULTIPLE VITAMIN 52367350194 Active Zoran Arzola MD Active ICAPS MV TABS 2 po daily MULTIPLE VITAMINS-MINERALS 77500872597 Active Jma Arnold DO Active MACROBID 100 MG CAP 1 cap by mouth twice daily MACROBID 100 MG CAP 084415 NITROFURANTOIN MONOHYD MACRO Inactive FERROUS SULFATE 325 (65 FE) MG TABS Take one by mouth daily FERROUS SULFATE 325 (65 FE) MG TABS 213617 FERROUS SULFATE Inactive HYDROCODONE-ACETAMINOPHEN 7.5-300 MG TABS take one every six hours HYDROCODONE-ACETAMINOPHEN 7.5-300 MG TABS 753277 HYDROCODONE- ACETAMINOPHEN Inactive FERROUS SULFATE 325 (65 FE) MG TABS 1 tablet by mouth daily FERROUS SULFATE 325 (65 FE) MG TABS 831865 FERROUS SULFATE Inactive ZOLOFT 100 MG TABS 1 po daily ZOLOFT 100 MG TABS 371990 SERTRALINE HCL Inactive AZITHROMYCIN 250 MG TABS 2 po qd x 1 day, then 1 po qd x 4 days AZITHROMYCIN 250 MG TABS 3825145 AZITHROMYCIN Inactive TRIAMCINOLONE ACETONIDE 0.1 % OINT Apply to affected areas TID for up to 2 weeks TRIAMCINOLONE ACETONIDE 0.1 % OINT 3958647 TRIAMCINOLONE ACETONIDE Inactive TRIAMCINOLONE ACETONIDE 0.1 % OINT Apply to affected areas TID for up to 2 weeks TRIAMCINOLONE ACETONIDE 0.1 % OINT 5778774 TRIAMCINOLONE ACETONIDE Inactive Advance Directives Directive Description Start Date PERMISSION TO SHARE Immunizations Vaccine Administration Date Value Standard Description pneumococcal immunization administered Pneumovax 23 [CVX33] pneumococcal polysaccharide vaccine, 23 valent Vital Signs Date Name Value Unit Range Description blood pressure, diastolic - 8462-4 75 mm[Hg] [...] g/dL platelet count 290 10*3/mm3 Lab Report: HGBA1C, CBC - Chemistry hemoglobin [...] CBC - Chemistry cholesterol, serum 207 mg/dL 043-483 7136/02/11 triglyceride, serum, fasting 74 mg/dL 30-200 HDL cholesterol, serum 62 mg/dL 32-96 LDL cholesterol, serum 130 mg/dL 0-130 sodium, serum 144 mmol/L 995-448 8748/02/11 potassium, serum 5.0 mmol/L 3.5-5.2 chloride, serum [...] negative Encounters Code Encounter Date Provider Facility CPT-09718 Level 3 Est. Patient 15:00:28 CDT Capo Poe MD [facility] CPT-69150 Level 3 Est. Patient 08:20:19 CDT Zoran Arzola MD [facility] CPT-73980 Level 3 Est. Patient 09:22:21 CDT Capo Poe MD [facility] CPT-15934 Level 4 Est. Patient 10:21:30 ADJUNCT ART HISTORY INSTRUCTOR Capo Poe MD [facility] CPT-70244 Level 3 Est. Patient 17:08:51 ADJUNCT ART HISTORY INSTRUCTOR Zoran Arzola MD [facility] CPT-24128 Level 4 Est. Patient 09:44:42 CDT Capo Poe MD [facility] CPT-41407 Level 4 Est. Patient 10:39:29 CDT Capo Poe MD [facility] CPT-94458 Level 3 Est. Patient 17:45:23 CDT Zoran Arzola MD [facility] CPT-59624 Level 4 Est. Patient 08:50:44 CDT Capo Poe MD [facility] CPT-40984 Level 3 Est. Patient 10:39:51 ADJUNCT ART HISTORY INSTRUCTOR Capo Poe MD [facility] CPT-94110 Level 4 Est. Patient 09:44:24 ADJUNCT ART HISTORY INSTRUCTOR Capo Poe MD [facility] CPT-82872 Level 3 Est. Patient 14:48:42 ADJUNCT ART HISTORY INSTRUCTOR Zoran Arzola MD [facility] CPT-45063 Level 4 Est. Patient 10:24:02 CDT Capo Poe MD [facility] CPT-01535 Level 3 Est. Patient 15:42:00 CDT Maya DUKES [facility] CPT-55305 Level 4 Est. Patient 13:34:15 CDT Capo Poe MD [facility] CPT-18297 Level 3 Est. Patient 15:32:10 ADJUNCT ART HISTORY INSTRUCTOR Zoran Arzola MD [facility] CPT-27067 Level 3 New Patient 17:17:19 ADJUNCT ART HISTORY INSTRUCTOR Zoran Arzola MD [facility] CPT-07772 Level 4 Est. Patient 10:25:01 ADJUNCT ART HISTORY INSTRUCTOR Capo Poe MD [facility] CPT-10327 Level 3 Est. Patient 10:10:42 CDT Zoran Arzola MD [facility] CPT-89000 Level 3 Est. Patient 22:30:02 CDT Zoran Arzola MD [facility] CPT-34307 Level 4 Est. Patient 09:54:20 CDT Capo Poe MD [facility] CPT-64537 Level 3 Est. Patient 10:48:30 CDT Capo Poe MD [facility] CPT-27830 Level 3 Est. Patient 11:24:45 CDT Capo Poe MD [facility] CPT-83407 Level 3 Est. Patient 15:23:48 ADJUNCT ART HISTORY INSTRUCTOR Capo Poe MD [facility] CPT-77523 Level 3 Est. Patient 15:10:03 ADJUNCT ART HISTORY INSTRUCTOR Capo Poe MD [facility] CPT-71061 Level 3 Est. Patient 16:18:40 CDT Zoran Arzola MD [facility] Procedures Code Procedure Name Date Entry Date Standard Description CPT-58844 Abd single AP View 08:32:00 CDT CPT-00105 Postop F/U Visit 21:13:08 CDT CPT-49223 Abd single AP View 15:50:24 CDT CPT-11500 Cystoscopy W/rem FB 15:21:28 CDT CPT-75047 Abd single AP View 14:06:45 CDT CPT-04171 Postop F/U Visit 09:48:32 CDT CPT-04636 Abd single AP View 13:58:26 CDT CPT-18909 Hip comp min 2V 10:27:18 ADJUNCT ART HISTORY INSTRUCTOR CPT-26128 Urine Dip (Floor Use Only) 13:41:01 ADJUNCT ART HISTORY INSTRUCTOR CPT-84883 Postop F/U Visit 11:17:48 CDT CPT-LR Lesion Removal 11:50:22 CDT CPT-OV Office Visit 11:50:22 CDT CPT-29897 Pneumovax 23 10:55:48 CDT CPT-11354 Administration single or combination vaccine inc oral 10 :55:48 CDT CPT-Cryo Cryotherapy 11:18:11 CDT CPT-OV Office Visit 11:18:11 CDT CPT-49856 LS spine AP and Lat 09:05:22 CDT CPT-21279 Bladder Scan 15:42:00 CDT CPT-12959 Cystoscopy 15:42:00 CDT CPT-OV Office Visit 16:37:19 ADJUNCT ART HISTORY INSTRUCTOR CPT-78205 Bladder Scan 15:32:10 ADJUNCT ART HISTORY INSTRUCTOR CPT-03357 Cystoscopy 15:32:10 ADJUNCT ART HISTORY INSTRUCTOR CPT-16673 Abd single AP View 14:05:59 ADJUNCT ART HISTORY INSTRUCTOR CPT-25774 Pill cam small bowel 09:48:39 ADJUNCT ART HISTORY INSTRUCTOR CPT-61863 Urine Dip (Floor Use Only) 17:17:19 ADJUNCT ART HISTORY INSTRUCTOR CPT-38202 Bladder Scan 17:17:19 ADJUNCT ART HISTORY INSTRUCTOR CPT-OV Office Visit 11:50:26 ADJUNCT ART HISTORY INSTRUCTOR CPT-47612 Bladder Scan 10:10:42 CDT CPT-86055 Venipuncture Draw Fee 09:14:04 CDT CPT-84836 Chest 2V Frontal and Lat 10:10:49 CDT CPT-36043 LS spine comp w obliq 11:50:11 CDT CPT-84388 Venipuncture Draw Fee 08:52:57 ADJUNCT ART HISTORY INSTRUCTOR CPT-28511 Cystoscopy W/rem FB 18:37:28 CDT CPT-87771 Abd single AP View 16:18:40 CDT CPT-74775 Abd compl w upright 17:30:59 CDT
--- OUTSIDE RECORDS SUMMARY | 2016-11-22 15:25 | XMS REPORT | Clinical Summary ---
Author Author Admin, MARGE Organization [facility] Address Unknown Phone Unavailable Allergies, Adverse [...] infection, site not specified Hematuria 599.70 Active Zoarn Arzola MD Hematuria, unspecified Sciatica, right 724.3 [...] SCIATICA ICD-724.3 Inactive Capo Poe MD 2011 CALCULUS OF KIDNEY ICD-592.0 Inactive Capo Poe MD BRONCHITIS, ACUTE ICD-466.0 Inactive Capo Poe MD URINARY FREQUENCY ICD-788.41 Inactive Capo Poe MD ELEVATED P S A ICD-790.93 Inactive Capo Poe MD URINARY TRACT INFECTION ICD-599.0 Inactive Capo Poe MD U T I-RECURRENT ICD-599.0 Inactive Capo Poe MD BLADDER CALCULUS ICD-594.1 Inactive Capo Poe MD HEMATURIA ICD-599.70 Inactive Capo Poe MD COUGH ICD-786.2 Inactive Capo Poe MD BLADDER CALCULUS ICD-594.1 Inactive Capo Poe MD HEMATURIA ICD-599.70 Inactive Capo Poe MD U T I-RECURRENT ICD-599.0 Clyde Poe MD RASH AND OTHER NONSPECIFIC SKIN ERUPTION ICD-782.1 Inactive Capo Poe MD Near syncope ICD-780.2 Clyde Poe MD Lumbar radiculopathy ICD-724.4 Inactive 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 Inactive Capo Poe MD UTI ICD-599.0 Inactive Capo Poe MD Ecchymoses, spontaneous ICD-782.7 Inactive Capo Poe MD Skin lesion ICD-709.9 Inactive Capo Poe MD Medication List Medication Instructions Start Date Stop Date Generic Name NDC Status Provider Patient Instruction DULERA 100-5 MCG/ACT AERO 2 puffs BID MOMETASONE FURO- FORMOTEROL FUM 02000435672 Active Capo Poe MD Active SERTRALINE HCL 100 MG ORAL TABS take 1 tab daily SERTRALINE HCL 26669095773 Active Capo Poe MD Active ZOLOFT 100 MG TABS 1 po daily SERTRALINE HCL 51948712877 No Longer Active Zoran Arzola MD Active FERROUS SULFATE 325 (65 FE) MG TABS 1 tablet by mouth daily FERROUS SULFATE 99970672297 No Longer Active Capo Poe MD Active TRAMADOL HCL 50 MG TABS 1-2 tablets every 6 hours as needed for pain TRAMADOL HCL 44432476416 Active Capo Poe MD Active HYDROCODONE-ACETAMINOPHEN 7.5-300 MG TABS take one every six hours HYDROCODONE-ACETAMINOPHEN 95740417492 No Longer Active Capo Poe MD Active TRIAMCINOLONE ACETONIDE 0.1 % OINT Apply to affected areas TID for up to 2 weeks TRIAMCINOLONE ACETONIDE 95436286892 No Longer Active Joe Vargas RN Active FERROUS SULFATE 325 (65 FE) MG TABS Take one by mouth daily FERROUS SULFATE 03496174712 No Longer Active Capo Poe MD Active TRIAMCINOLONE ACETONIDE 0.1 % OINT Apply to affected areas TID for up to 2 weeks TRIAMCINOLONE ACETONIDE 19312859484 No Longer Active Capo Poe MD Active ADULT ASPIRIN LOW STRENGTH 81 MG TBDP qd ASPIRIN 26379934264 Active Zoran Arzola MD Active ALEVE 220 MG TAB prn NAPROXEN SODIUM 73914800938 Active Capo Poe MD Active LISINOPRIL-HYDROCHLOROTHIAZIDE 10-12.5 MG TABS 1 tab by mouth daily LISINOPRIL-HYDROCHLOROTHIAZIDE 99931971880 Active Capo Poe MD Active MACROBID 100 MG CAP 1 cap by mouth twice daily NITROFURANTOIN MONOHYD MACRO 97880440174 No Longer Active Dona Becker Active AZITHROMYCIN 250 MG TABS 2 po qd x 1 day, then 1 po qd x 4 days AZITHROMYCIN 33279163502 No Longer Active Capo Poe MD Active FISH OIL 500 MG CAPS by mouth twice a day OMEGA-3 FATTY ACIDS 99749027295 Active Capo Poe MD Active FLAXSEED OIL 1000 MG CAPS Take two by mouth daily FLAXSEED (LINSEED) 66098185592 Active Zoran Arzola MD Active RED YEAST RICE 600 MG CAPS Take two by mouth daily RED YEAST RICE EXTRACT 48977004387 Active Zoran Arzola MD Active MULTIVITAMINS CAPS Take one by mouth daily MULTIPLE VITAMIN 76103225886 Active Zoran Arzola MD Active ICAPS MV TABS 2 po daily MULTIPLE VITAMINS-MINERALS 48208083685 Active Jam Arnold DO Active MACROBID 100 MG CAP 1 cap by mouth twice daily MACROBID 100 MG CAP 242391 NITROFURANTOIN MONOHYD MACRO Inactive FERROUS SULFATE 325 (65 FE) MG TABS Take one by mouth daily FERROUS SULFATE 325 (65 FE) MG TABS 428157 FERROUS SULFATE Inactive HYDROCODONE-ACETAMINOPHEN 7.5-300 MG TABS take one every six hours HYDROCODONE-ACETAMINOPHEN 7.5-300 MG TABS 428458 HYDROCODONE- ACETAMINOPHEN Inactive FERROUS SULFATE 325 (65 FE) MG TABS 1 tablet by mouth daily FERROUS SULFATE 325 (65 FE) MG TABS 284222 FERROUS SULFATE Inactive ZOLOFT 100 MG TABS 1 po daily ZOLOFT 100 MG TABS 602103 SERTRALINE HCL Inactive AZITHROMYCIN 250 MG TABS 2 po qd x 1 day, then 1 po qd x 4 days AZITHROMYCIN 250 MG TABS 3371080 AZITHROMYCIN Inactive TRIAMCINOLONE ACETONIDE 0.1 % OINT Apply to affected areas TID for up to 2 weeks TRIAMCINOLONE ACETONIDE 0.1 % OINT 1430938 TRIAMCINOLONE ACETONIDE Inactive TRIAMCINOLONE ACETONIDE 0.1 % OINT Apply to affected areas TID for up to 2 weeks TRIAMCINOLONE ACETONIDE 0.1 % OINT 5502963 TRIAMCINOLONE ACETONIDE Inactive Advance Directives Directive Description Start Date PERMISSION TO SHARE Immunizations Vaccine Administration Date Value Standard Description pneumococcal immunization administered Pneumovax 23 [CVX33] pneumococcal polysaccharide vaccine, 23 valent Vital Signs Date Name Value Unit Range Description blood pressure, diastolic - 8462-4 64 mm[Hg] [...] E&M - 3141-9 143 [lb_av] Weight Measured blood pressure, diastolic - 8462-4 69 mm[Hg] BP austin blood pressure, systolic - 8480-6 133 mm[Hg] BP sys height E&M - 8302-2 65 [in_us] Bdy height pulse rate E&M - 8867-4 69 /min Heart rate temperature E&M 97.9 [degF] Body temperature weight E&M - 3141-9 143 [lb_av] Weight Measured Diagnostic Results Date Name Value Unit Range Description Chart Maintenance: Outside labs entered on [employer] - Chemistry sodium, serum 137 mmol/L potassium, [...] count 234 10^3/MM^3 10*3/mm3 142-424 Lab Report: CBC W/DIFF, Comp. Metabolic Panel - Chemistry sodium, serum 140 mmol/L 779-105 9234/05/21 potassium, serum 4.0 mmol/L 3.5-5.2 chloride, serum 103 mmol/L 98-107 carbon dioxide, venous blood 27.0 mmol/L 21.0-32.0 blood glucose 95 mg/dL 65-110 urea nitrogen, blood 21 mg/dL 7-18 creatinine, serum 1.10 mg/dL 0.60-1.30 alanine aminotransferase (SGPT), serum 23 U/L 12-78 aspartate aminotransferase (SGOT), serum 21 U/L 15-37 alkaline phosphatase, serum 106 U/L 50-136 calcium, serum 8.6 mg/dL 8.5-10.1 bilirubin, serum, total 0.30 mg/dL 0.00-1.00 Lab Report: CBC W/DIFF, Comp. Metabolic Panel - Hematology monocytes as percent of blood leukocytes 6.2 % 1.7-9.3 neutrophils as percent of blood leukocytes 72.8 % 42.2-75.2 leukocyte count, blood 7.6 10^3/MM^3 10*3/mm3 4.6-10.2 lymphocytes as percent of blood leukocytes 18.0 % 20.5-51.1 erythrocyte (RBC) count 4.15 10^6/MM^3 10*6/mm3 4.69-6.13 hemoglobin, blood 13.1 g/dL 13.5-17.5 hematocrit, blood 39.2 % 41.0-53.0 mean corpuscular volume, RBC 94 fL 80-97 mean corpuscular hemoglobin, RBC 31.6 pg 27.0-31.2 mean corpuscular hemoglobin concentration, RBC 33.5 G/DL % 31.8- 35.4 red blood cell distribution width 14.8 % 11.6-14.8 platelet count 245 10^3/MM^3 10*3/mm3 142-424 Lab Report: HGBA1C, CBC [...] CBC - Chemistry cholesterol, serum 207 mg/dL 120-644 8065/02/11 triglyceride, serum, fasting 74 mg/dL 30-200 HDL cholesterol, serum 62 mg/dL 32-96 LDL cholesterol, serum 130 mg/dL 0-130 sodium, serum 144 mmol/L 123-529 7793/02/11 potassium, serum 5.0 mmol/L 3.5-5.2 chloride, serum [...] 0.00-4.00 prostate specific antigen 1.61 ng/mL 0.00-4.00 Lab Report: Prothrombin Time - Coagulation international normalized ratio (INR) 0.9 1.0-3.5 prothrombin time (patient) 11.5 SECS s 11.1-13.4 Office Visit: 4 mo f/u prostate cancer [...] gravity, urine 1.015 urinalysis, routine Clean Catch ketones, urine, by test strip negative bilirubin, urine negative glucose, urine, semiquantitative negative urine color yellow appearance, urine clear leukocyte esterase, urine, by dipstick 3+ nitrite, urine, semiquantitative positive urobilinogen, urine, semiquantitative (dipstick) 0.2 protein, urine, semiquantitative (dipstick) negative culture status Yes Encounters Code Encounter Date Provider Facility CPT-32551 Level 3 Est. Patient 08:20:19 CDT Zoran Arzola MD [facility] CPT-90267 Level 3 Est. Patient 09:22:21 CDT Capo Poe MD [facility]-59422 Level 4 Est. Patient 10:21:30 HAT PRESSER Capo Poe MD [facility] CPT-29717 Level 3 Est. Patient 17:08:51 HAT PRESSER Zoran Arzola MD [facility] CPT-36274 Level 4 Est. Patient 09:44:42 CDT Capo Poe MD [facility] CPT-95852 Level 4 Est. Patient 10:39:29 CDT Capo Poe MD [facility] CPT-30044 Level 3 Est. Patient 17:45:23 CDT Zoran Arzola MD [facility] CPT-48828 Level 4 Est. Patient 08:50:44 CDT Capo Poe MD [facility] CPT-70879 Level 3 Est. Patient 10:39:51 HAT PRESSER Capo Poe MD [facility] CPT-74485 Level 4 Est. Patient 09:44:24 HAT PRESSER Capo Poe MD [facility] CPT-81093 Level 3 Est. Patient 14:48:42 HAT PRESSER Zoran Arzola MD [facility] CPT-79573 Level 4 Est. Patient 10:24:02 CDT Capo Poe MD [facility] CPT-24986 Level 3 Est. Patient 15:42:00 CDT Maya Brownlee ERNST [facility] CPT-08065 Level 4 Est. Patient 13:34:15 CDT Capo Poe MD [facility] CPT-18787 Level 3 Est. Patient 15:32:10 HAT PRESSER Zoran Arzola MD [facility] CPT-96826 Level 3 New Patient 17:17:19 HAT PRESSER Zoran Arzola MD [facility] CPT-71446 Level 4 Est. Patient 10:25:01 HAT PRESSER Capo Poe MD [facility] CPT-42779 Level 3 Est. Patient 10:10:42 CDT Zoran Arzola MD [facility] CPT-62405 Level 3 Est. Patient 22:30:02 CDT Zoran Arzola MD [facility] CPT-80887 Level 4 Est. Patient 09:54:20 CDT Capo Poe MD [facility] CPT-33386 Level 3 Est. Patient 10:48:30 CDT Capo oPe MD [facility] CPT-06851 Level 3 Est. Patient 11:24:45 CDT Capo Poe MD [facility] CPT-96081 Level 3 Est. Patient 15:23:48 HAT PRESSER Capo Poe MD [facility] CPT-28914 Level 3 Est. Patient 15:10:03 HAT PRESSER Capo Poe MD [facility] CPT-86502 Level 3 Est. Patient 16:18:40 CDT Zoran Arzola MD [facility] Procedures Code Procedure Name Date Entry Date Standard Description CPT-49431 Cystoscopy W/rem FB 15:21:28 CDT CPT-83900 Abd single AP View 14:06:45 CDT CPT-07905 Postop F/U Visit 09:48:32 CDT CPT-60988 Abd single AP View 13:58:26 CDT CPT-92400 Hip comp min 2V 10:27:18 HAT PRESSER CPT-03467 Urine Dip (Floor Use Only) 13:41:01 HAT PRESSER CPT-24321 Postop F/U Visit 11:17:48 CDT CPT-LR Lesion Removal 11:50:22 CDT CPT-OV Office Visit 11:50:22 CDT CPT-35262 Pneumovax 23 10:55:48 CDT CPT-42014 Administration single or combination vaccine inc oral 10 :55:48 CDT CPT-Cryo Cryotherapy 11:18:11 CDT CPT-OV Office Visit 11:18:11 CDT CPT-64680 LS spine AP and Lat 09:05:22 CDT CPT-59959 Bladder Scan 15:42:00 CDT CPT-95956 Cystoscopy 15:42:00 CDT CPT-OV Office Visit 16:37:19 HAT PRESSER CPT-58826 Bladder Scan 15:32:10 HAT PRESSER CPT-30728 Cystoscopy 15:32:10 HAT PRESSER CPT-25763 Abd single AP View 14:05:59 HAT PRESSER CPT-67113 Pill cam small bowel 09:48:39 HAT PRESSER CPT-11190 Urine Dip (Floor Use Only) 17:17:19 HAT PRESSER CPT-82486 Bladder Scan 17:17:19 HAT PRESSER CPT-OV Office Visit 11:50:26 HAT PRESSER CPT-83197 Bladder Scan 10:10:42 CDT CPT-31957 Venipuncture Draw Fee 09:14:04 CDT CPT-31450 Chest 2V Frontal and Lat 10:10:49 CDT CPT-48718 LS spine comp w obliq 11:50:11 CDT CPT-72907 Venipuncture Draw Fee 08:52:57 HAT PRESSER CPT-55080 Cystoscopy W/rem FB 18:37:28 CDT CPT-37604 Abd single AP View 16:18:40 CDT CPT-78192 Abd compl w upright 17:30:59 CDT
--- OUTSIDE RECORDS SUMMARY | 2016-11-22 15:26 | XMS REPORT | Clinical Summary ---
Author Author Admin, MARGE Organization [facility] Address Unknown Phone Unavailable Allergies, Adverse Reactions, [...] health care facility HEALTH SCREENING V70.0 Active aCpo Poe MD Routine general medical examination at a health care facility SCIATICA 724.3 Resolved Capo Poe MD Sciatica BRONCHITIS, ACUTE 466.0 Resolved Capo Poe MD Acute bronchitis URINARY FREQUENCY 788.41 Resolved Capo Poe MD Urinary frequency COUGH 786.2 Resolved Capo Poe MD Cough ELEVATED P S A 790.93 Resolved Capo oPe MD Elevated prostate specific antigen [PSA] URINARY [...] MG/24HR TRANS PT24 Apply/Change q 24hr NICOTINE 83953863516 Active Capo Poe MD Active WELLBUTRIN SR 150 MG ORAL [id number] 1 po qd x 3 days, then 1 po BID BUPROPION HCL 62571549396 Active Capo Poe MD Active LORTAB 7.5-325 MG ORAL TABS 1 po q 6 hr prn pain HYDROCODONE- ACETAMINOPHEN 42063455824 Active Capo Poe MD Active FLOMAX 0.4 MG CAPS Take one by mouth daily TAMSULOSIN HCL 57885446000 Active Capo Poe MD Active MIRALAX PACK 1 po qd PRN Constipation POLYETHYLENE GLYCOL 3350 99681417362 Active Capo Poe MD Active DULERA 100-5 MCG/ACT AERO 2 puffs BID MOMETASONE FURO- FORMOTEROL FUM 14099390938 Active Capo Poe MD Active SERTRALINE HCL 100 MG ORAL TABS take 1 tab daily SERTRALINE HCL 94440450639 Active Capo Poe MD Active ZOLOFT 100 MG TABS 1 po daily SERTRALINE HCL 66973394772 No Longer Active Zoran Arzola MD Active FERROUS SULFATE 325 (65 FE) MG TABS 1 tablet by mouth daily FERROUS SULFATE 81287498798 No Longer Active Capo Poe MD Active TRAMADOL HCL 50 MG TABS 1-2 tablets every 6 hours as needed for pain TRAMADOL HCL 93097850215 Active Capo Poe MD Active HYDROCODONE-ACETAMINOPHEN 7.5-300 MG TABS take one every six hours HYDROCODONE-ACETAMINOPHEN 00918413691 No Longer Active Capo Poe MD Active TRIAMCINOLONE ACETONIDE 0.1 % OINT Apply to affected areas TID for up to 2 weeks TRIAMCINOLONE ACETONIDE 99189887708 No Longer Active Joe Vargas RN Active FERROUS SULFATE 325 (65 FE) MG TABS Take one by mouth daily FERROUS SULFATE 07773622099 No Longer Active Capo Poe MD Active TRIAMCINOLONE ACETONIDE 0.1 % OINT Apply to affected areas TID for up to 2 weeks TRIAMCINOLONE ACETONIDE 31385875329 No Longer Active Capo Poe MD Active ADULT ASPIRIN LOW STRENGTH 81 MG TBDP qd ASPIRIN 22454051371 Active Zoran Arzola MD Active ALEVE 220 MG TAB prn NAPROXEN SODIUM 93384960570 Active Capo Poe MD Active LISINOPRIL-HYDROCHLOROTHIAZIDE 10-12.5 MG TABS 1 tab by mouth daily LISINOPRIL-HYDROCHLOROTHIAZIDE 27043912958 Active Capo Poe MD Active MACROBID 100 MG CAP 1 cap by mouth twice daily NITROFURANTOIN MONOHYD MACRO 89063171517 No Longer Active Dona Becker Active AZITHROMYCIN 250 MG TABS 2 po qd x 1 day, then 1 po qd x 4 days AZITHROMYCIN 09554207823 No Longer Active Capo Poe MD Active FISH OIL 500 MG CAPS by mouth twice a day OMEGA-3 FATTY ACIDS 12933580419 Active Capo Poe MD Active FLAXSEED OIL 1000 MG CAPS Take two by mouth daily FLAXSEED (LINSEED) 03729878392 Elza Arzola MD Active RED YEAST RICE 600 MG CAPS Take two by mouth daily RED YEAST RICE EXTRACT 34119768416 Elza Arzola MD Active MULTIVITAMINS CAPS Take one by mouth daily MULTIPLE VITAMIN 34628413041 Active Zoran Arzola MD Active ICAPS MV TABS 2 po daily MULTIPLE VITAMINS-MINERALS 99654448111 Active Jam Arnold DO Active MACROBID 100 MG CAP 1 cap by mouth twice daily MACROBID 100 MG CAP 877050 NITROFURANTOIN MONOHYD MACRO Inactive FERROUS SULFATE 325 (65 FE) MG TABS Take one by mouth daily FERROUS SULFATE 325 (65 FE) MG TABS 968354 FERROUS SULFATE Inactive HYDROCODONE-ACETAMINOPHEN 7.5-300 MG TABS take one every six hours HYDROCODONE-ACETAMINOPHEN 7.5-300 MG TABS 918132 HYDROCODONE- ACETAMINOPHEN Inactive FERROUS SULFATE 325 (65 FE) MG TABS 1 tablet by mouth daily FERROUS SULFATE 325 (65 FE) MG TABS 482705 FERROUS SULFATE Inactive ZOLOFT 100 MG TABS 1 po daily ZOLOFT 100 MG TABS 377433 SERTRALINE HCL Inactive AZITHROMYCIN 250 MG TABS 2 po qd x 1 day, then 1 po qd x 4 days AZITHROMYCIN 250 MG TABS 2097454 AZITHROMYCIN Inactive TRIAMCINOLONE ACETONIDE 0.1 % OINT Apply to affected areas TID for up to 2 weeks TRIAMCINOLONE ACETONIDE 0.1 % OINT 1711263 TRIAMCINOLONE ACETONIDE Inactive TRIAMCINOLONE ACETONIDE 0.1 % OINT Apply to affected areas TID for up to 2 weeks TRIAMCINOLONE ACETONIDE 0.1 % OINT 0377428 TRIAMCINOLONE ACETONIDE Inactive Advance Directives Directive Description [...] Panel - Chemistry sodium, serum 139 mmol/L 887-552 1634/07/30 potassium, serum 4.7 mmol/L 3.5-5.2 chloride, serum [...] CBC - Chemistry cholesterol, serum 207 mg/dL 254-870 9820/02/11 triglyceride, serum, fasting 74 mg/dL 30-200 HDL cholesterol, serum 62 mg/dL 32-96 LDL cholesterol, serum 130 mg/dL 0-130 sodium, serum 144 mmol/L 521-146 2621/02/11 potassium, serum 5.0 mmol/L 3.5-5.2 chloride, serum [...] negative Encounters Code Encounter Date Provider Facility CPT-69261 Level 3 Est. Patient 09:27:01 CDT Capo Poe MD [facility] CPT-59072 Level 3 Est. Patient 18:37:08 CDT Zoran Arzola MD [facility] CPT-57191 Level 3 Est. Patient 15:00:28 CDT Capo Poe MD [facility] CPT-70150 Level 3 Est. Patient 08:20:19 CDT Zoran Arzola MD [facility] CPT-35428 Level 3 Est. Patient 09:22:21 CDT Capo Poe MD [facility] CPT-50342 Level 4 Est. Patient 10:21:30 DOMESTIC VIOLENCE ADVOCATE Capo Poe MD [facility] CPT-17855 Level 3 Est. Patient 17:08:51 DOMESTIC VIOLENCE ADVOCATE Zoran Arzola MD [facility] CPT-43818 Level 4 Est. Patient 09:44:42 CDT Capo Poe MD [facility] CPT-86152 Level 4 Est. Patient 10:39:29 CDT Capo Poe MD [facility] CPT-29223 Level 3 Est. Patient 17:45:23 CDT Zoran Arzola MD [facility] CPT-21179 Level 4 Est. Patient 08:50:44 CDT Capo Poe MD [facility] CPT-97326 Level 3 Est. Patient 10:39:51 DOMESTIC VIOLENCE ADVOCATE Capo Poe MD [facility] CPT-18917 Level 4 Est. Patient 09:44:24 DOMESTIC VIOLENCE ADVOCATE Capo Poe MD [facility] CPT-45318 Level 3 Est. Patient 14:48:42 DOMESTIC VIOLENCE ADVOCATE Zoran Arzola MD [facility] CPT-71316 Level 4 Est. Patient 10:24:02 CDT Capo Poe MD [facility] CPT-75232 Level 3 Est. Patient 15:42:00 CDT Maya WRIGHTP [facility] CPT-97204 Level 4 Est. Patient 13:34:15 CDT Capo Poe MD [facility] CPT-82139 Level 3 Est. Patient 15:32:10 DOMESTIC VIOLENCE ADVOCATE Zoran Arzola MD [facility] CPT-57918 Level 3 New Patient 17:17:19 DOMESTIC VIOLENCE ADVOCATE Zoran Arzola MD [facility] CPT-41249 Level 4 Est. Patient 10:25:01 DOMESTIC VIOLENCE ADVOCATE Capo Poe MD [facility] CPT-74804 Level 3 Est. Patient 10:10:42 CDT Zoran Arzola MD [facility] CPT-69014 Level 3 Est. Patient 22:30:02 CDT Zoran Arzola MD [facility] CPT-56527 Level 4 Est. Patient 09:54:20 CDT Capo Poe MD [facility] CPT-27239 Level 3 Est. Patient 10:48:30 CDT Capo Poe MD [facility] CPT-90066 Level 3 Est. Patient 11:24:45 CDT Capo Poe MD [facility] CPT-88370 Level 3 Est. Patient 15:23:48 DOMESTIC VIOLENCE ADVOCATE Capo Poe MD [facility] CPT-07978 Level 3 Est. Patient 15:10:03 DOMESTIC VIOLENCE ADVOCATE Capo Poe MD [facility] CPT-07459 Level 3 Est. Patient 16:18:40 CDT Zoran Arzola MD [facility] Procedures Code Procedure Name Date Entry Date Standard Description CPT-33773 Abd single AP View 08:32:00 CDT CPT-57583 Postop F/U Visit 21:13:08 CDT CPT-53218 Abd single AP View 15:50:24 CDT CPT-18355 Cystoscopy W/rem FB 15:21:28 CDT CPT-35736 Abd single AP View 14:06:45 CDT CPT-31185 Postop F/U Visit 09:48:32 CDT CPT-73719 Abd single AP View 13:58:26 CDT CPT-60135 Hip comp min 2V 10:27:18 DOMESTIC VIOLENCE ADVOCATE CPT-19546 Urine Dip (Floor Use Only) 13:41:01 DOMESTIC VIOLENCE ADVOCATE CPT-99844 Postop F/U Visit 11:17:48 CDT CPT-LR Lesion Removal 11:50:22 CDT CPT-OV Office Visit 11:50:22 CDT CPT-37994 Pneumovax 23 10:55:48 CDT CPT-94958 Administration single or combination vaccine inc oral 10 :55:48 CDT CPT-Cryo Cryotherapy 11:18:11 CDT CPT-OV Office Visit 11:18:11 CDT CPT-92034 LS spine AP and Lat 09:05:22 CDT CPT-81000 Bladder Scan 15:42:00 CDT CPT-76489 Cystoscopy 15:42:00 CDT CPT-OV Office Visit 16:37:19 DOMESTIC VIOLENCE ADVOCATE CPT-81587 Bladder Scan 15:32:10 DOMESTIC VIOLENCE ADVOCATE CPT-47533 Cystoscopy 15:32:10 DOMESTIC VIOLENCE ADVOCATE CPT-49527 Abd single AP View 14:05:59 DOMESTIC VIOLENCE ADVOCATE CPT-84803 Pill cam small bowel 09:48:39 DOMESTIC VIOLENCE ADVOCATE CPT-69456 Urine Dip (Floor Use Only) 17:17:19 DOMESTIC VIOLENCE ADVOCATE CPT-24829 Bladder Scan 17:17:19 DOMESTIC VIOLENCE ADVOCATE CPT-OV Office Visit 11:50:26 DOMESTIC VIOLENCE ADVOCATE CPT-99670 Bladder Scan 10:10:42 CDT CPT-35371 Venipuncture Draw Fee 09:14:04 CDT CPT-75773 Chest 2V Frontal and Lat 10:10:49 CDT CPT-24116 LS spine comp w obliq 11:50:11 CDT CPT-10218 Venipuncture Draw Fee 08:52:57 DOMESTIC VIOLENCE ADVOCATE CPT-60554 Cystoscopy W/rem FB 18:37:28 CDT CPT-48601 Abd single AP View 16:18:40 CDT CPT-34492 Abd compl w upright 17:30:59 CDT
--- OUTSIDE RECORDS SUMMARY | 2016-11-22 15:27 | XMS REPORT | Clinical Summary ---
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 Simin [...] MG TABS 1 daily for infection LEVOFLOXACIN 07519222563 Active Leanna Baker APRN Active AZITHROMYCIN 250 MG ORAL TABS 2 po qd x 1, then 1 po qd x 4 AZITHROMYCIN 64799970723 Active Capo Poe MD Active PREDNISONE 20 MG ORAL TABS 2 po qd x 5 days PREDNISONE 64938462598 No Longer Active Capo Poe MD Active CARAFATE 1 GM ORAL TABS 1 tid SUCRALFATE 35175885622 Active Capo Poe MD Active RANITIDINE HCL 150 MG ORAL TABS 1 bid RANITIDINE HCL 90208535687 Active Capo Poe MD Active MULTIVITAMINS CAPS Take one by mouth daily MULTIPLE VITAMIN 98527768320 No Longer Active Capo Poe MD Active LISINOPRIL 10 MG TABS 1 tablet by mouth daily LISINOPRIL 80178751771 No Longer Active Capo Poe MD Active EQL IRON SUPPLEMENT THERAPY 325 MG ORAL TABS 1 tab po twice daily FERROUS SULFATE 78183646697 Active Jasmin Arboledalas RMA Active D ORAL TABS 2000 iu weekly D ORAL TABS Active Capo Poe MD Active CITALOPRAM HYDROBROMIDE 20 MG TABS 1 tablet by mouth daily CITALOPRAM HYDROBROMIDE 94465450477 Active Capo Poe MD Active CLARITIN 5 MG ORAL CHEW 1 tab po q day LORATADINE 11705159875 Active Felisa Daphney RMA Active VIIBRYD STARTER PACK 10 & 20 MG ORAL KIT 1 po qd as directed 2015 VILAZODONE HCL 56445410943 No Longer Active Felisa Daphney RMA Active HYDROXYZINE HCL 25 MG TAB 1 po qHS PRN Insomnia HYDROXYZINE HCL 96942610946 Active Capo Poe MD Active LORTAB 7.5-325 MG ORAL TABS 1 po q 6 hr prn pain HYDROCODONE- ACETAMINOPHEN 06323710439 No Longer Active Capo Poe MD Active FLOMAX 0.4 MG CAPS Take one by mouth daily TAMSULOSIN HCL 81006252089 No Longer Active Capo Poe MD Active TRIAMCINOLONE ACETONIDE 0.1 % CREA Apply to affected areas TID for up to 2 weeks TRIAMCINOLONE ACETONIDE 04239934912 Active Capo Poe MD Active NICOTINE 14 MG/24HR TRANS PT24 Apply/Change q 24hr NICOTINE 30388786107 No Longer Active Capo Poe MD Active TRAMADOL HCL 50 MG TABS 1-2 tablets every 6 hours as needed for pain TRAMADOL HCL 94239540782 No Longer Active Capo Poe MD Active SERTRALINE HCL 100 MG ORAL TABS take 1 tab daily SERTRALINE HCL 78723472764 No Longer Active Capo Poe MD Active LISINOPRIL-HYDROCHLOROTHIAZIDE 10-12.5 MG TABS 0.5 tab by mouth daily LISINOPRIL-HYDROCHLOROTHIAZIDE 89620181913 No Longer Active Capo Poe MD Active OMEPRAZOLE 20 MG CPDR 1 tablet by mouth daily OMEPRAZOLE 14079975859 Active Capo Poe MD Active WELLBUTRIN SR 150 MG ORAL [id number] 1 po BID BUPROPION HCL 46766455483 No Longer Active Capo Poe MD Active MIRALAX PACK 1 po qd PRN Constipation POLYETHYLENE GLYCOL 3350 04837682846 Active Capo Poe MD Active DULERA 100-5 MCG/ACT AERO 2 puffs BID MOMETASONE FURO- FORMOTEROL FUM 46970380970 Active Capo Poe MD Active ZOLOFT 100 MG TABS 1 po daily SERTRALINE HCL 05498363278 No Longer Active Zoran Arzola MD Active FERROUS SULFATE 325 (65 FE) MG TABS 1 tablet by mouth daily FERROUS SULFATE 86767998381 No Longer Active Capo Poe MD Active HYDROCODONE-ACETAMINOPHEN 7.5-300 MG TABS take one every six hours HYDROCODONE-ACETAMINOPHEN 85214455915 No Longer Active Capo Poe MD Active TRIAMCINOLONE ACETONIDE 0.1 % OINT Apply to affected areas TID for up to 2 weeks TRIAMCINOLONE ACETONIDE 14333102420 No Longer Active Joe Vargas RN Active FERROUS SULFATE 325 (65 FE) MG TABS Take one by mouth daily FERROUS SULFATE 53276208986 No Longer Active Capo Poe MD Active TRIAMCINOLONE ACETONIDE 0.1 % OINT Apply to affected areas TID for up to 2 weeks TRIAMCINOLONE ACETONIDE 48410443875 No Longer Active Capo Poe MD Active ADULT ASPIRIN LOW STRENGTH 81 MG TBDP qd ASPIRIN 05414759063 Active Zoran Arzola MD Active ALEVE 220 MG TAB prn NAPROXEN SODIUM 78793311529 Active Capo Poe MD Active MACROBID 100 MG CAP 1 cap by mouth twice daily NITROFURANTOIN MONOHYD MACRO 35038753816 No Longer Active Dona Becker Active AZITHROMYCIN 250 MG TABS 2 po qd x 1 day, then 1 po qd x 4 days AZITHROMYCIN 46388423008 No Longer Active Capo Poe MD Active FISH OIL 500 MG CAPS by mouth twice a day OMEGA-3 FATTY ACIDS 92296417956 Active Capo Poe MD Active FLAXSEED OIL 1000 MG CAPS Take two by mouth daily FLAXSEED (LINSEED) 20834528414 Active Zoran Arzola MD Active RED YEAST RICE 600 MG CAPS Take two by mouth daily RED YEAST RICE EXTRACT 09017654435 Active Zoran Arzola MD Active ICAPS MV TABS 2 po daily MULTIPLE VITAMINS-MINERALS 74535992439 Active Jam Arnold DO Active MACROBID 100 MG CAP 1 cap by mouth twice daily MACROBID 100 MG CAP 6251589 NITROFURANTOIN MONOHYD MACRO Inactive FERROUS SULFATE 325 (65 FE) MG TABS Take one by mouth daily FERROUS SULFATE 325 (65 FE) MG TABS 460812 FERROUS SULFATE Inactive HYDROCODONE-ACETAMINOPHEN 7.5-300 MG TABS take one every six hours HYDROCODONE-ACETAMINOPHEN 7.5-300 MG TABS 024545 HYDROCODONE- ACETAMINOPHEN Inactive FERROUS SULFATE 325 (65 FE) MG TABS 1 tablet by mouth daily FERROUS SULFATE 325 (65 FE) MG TABS 333639 FERROUS SULFATE Inactive ZOLOFT 100 MG TABS 1 po daily ZOLOFT 100 MG TABS 821972 SERTRALINE HCL Inactive SERTRALINE HCL 100 MG ORAL TABS take 1 tab daily SERTRALINE HCL 100 MG ORAL TABS 148826 SERTRALINE HCL Inactive TRAMADOL HCL 50 MG TABS 1-2 tablets every 6 hours as needed for pain TRAMADOL HCL 50 MG TABS 281969 TRAMADOL HCL Inactive NICOTINE 14 MG/24HR TRANS PT24 Apply/Change q 24hr NICOTINE 14 MG/24HR TRANS PT24 137353 NICOTINE Inactive FLOMAX 0.4 MG CAPS Take one by mouth daily FLOMAX 0.4 MG CAPS 152027 TAMSULOSIN HCL Inactive LORTAB 7.5-325 MG ORAL TABS 1 po q 6 hr prn pain LORTAB 7.5- 325 MG ORAL TABS 602125 HYDROCODONE-ACETAMINOPHEN Inactive VIIBRYD STARTER PACK 10 & 20 MG ORAL KIT 1 po qd as directed 2015 VIIBRYD STARTER PACK 10 & 20 MG ORAL KIT VILAZODONE HCL Inactive LISINOPRIL 10 MG TABS 1 tablet by mouth daily LISINOPRIL 10 MG TABS 514237 LISINOPRIL Inactive MULTIVITAMINS CAPS Take one by mouth daily MULTIVITAMINS CAPS MULTIPLE VITAMIN Inactive AZITHROMYCIN 250 MG TABS 2 po qd x 1 day, then 1 po qd x 4 days AZITHROMYCIN 250 MG TABS 6921161 AZITHROMYCIN Inactive TRIAMCINOLONE ACETONIDE 0.1 % OINT Apply to affected areas TID for up to 2 weeks TRIAMCINOLONE ACETONIDE 0.1 % OINT 2534921 TRIAMCINOLONE ACETONIDE Inactive TRIAMCINOLONE ACETONIDE 0.1 % OINT Apply to affected areas TID for up to 2 weeks TRIAMCINOLONE ACETONIDE 0.1 % OINT 8262778 TRIAMCINOLONE ACETONIDE Inactive PREDNISONE 20 MG ORAL TABS 2 po qd x 5 days PREDNISONE 20 MG ORAL TABS 237243 PREDNISONE Inactive Advance Directives Directive Description Start [...] Panel - Chemistry sodium, serum 137 mmol/L 200-787 3302/07/26 carbon dioxide, venous blood 27.3 mmol/L 21.0-32.0 [...] ... - Chemistry sodium, serum 141 mmol/L 413-074 6696/01/27 carbon dioxide, venous blood 29.7 mmol/L 21.0-32.0 [...] % 11.0-15.0 platelet count 214 THOUSAND/UL 10*3/mm3 060-049 4355/03/31 mean platelet volume 8.4 fL 7.5-12.5 Encounters Code Encounter Date Provider Facility CPT-52661 Level 3 Est. Patient 11:31:49 CDT Leanna Baker APRN [facility] CPT-70924 Level 3 Est. Patient 09:44:06 CDT Capo Poe MD [facility] CPT-29841 Level 4 Est. Patient 09:26:11 MACHINE BUILDER Capo Poe MD [facility] CPT-18153 Level 4 Est. Patient 08:53:08 CDT Capo Poe MD [facility] CPT-19441 Level 4 Est. Patient 10:22:57 CDT Capo Poe MD [facility] CPT-23216 Level 4 Est. Patient 13:44:30 CDT Capo Poe MD [facility] CPT-54770 Level 3 Est. Patient 14:59:32 MACHINE BUILDER Capo Poe MD [facility] CPT-01748 Level 4 Est. Patient 10:46:15 MACHINE BUILDER Capo Poe MD [facility] CPT-54771 Level 3 Est. Patient 11:00:53 CDT Capo Poe MD [facility] CPT-80213 Level 3 Est. Patient 09:39:35 CDT Capo Peo MD [facility] CPT-59737 Level 3 Est. Patient 09:27:01 CDT Capo Poe MD [facility] CPT-83849 Level 3 Est. Patient 18:37:08 CDT Zoran Arzola MD [facility] CPT-47677 Level 3 Est. Patient 15:00:28 CDT Capo Poe MD [facility] CPT-78736 Level 3 Est. Patient 08:20:19 CDT Zoran Arzola MD [facility] CPT-18148 Level 3 Est. Patient 09:22:21 CDT Capo Poe MD [facility] CPT-65906 Level 4 Est. Patient 10:21:30 MACHINE BUILDER Capo Poe MD [facility] CPT-13431 Level 3 Est. Patient 17:08:51 MACHINE BUILDER Zoran Arzola MD [facility] CPT-22487 Level 4 Est. Patient 09:44:42 CDT Capo Poe MD [facility] CPT-54345 Level 4 Est. Patient 10:39:29 CDT Capo Poe MD [facility] CPT-89875 Level 3 Est. Patient 17:45:23 CDT Zoran Arzola MD [facility] CPT-07373 Level 4 Est. Patient 08:50:44 CDT Capo Poe MD [facility] CPT-26683 Level 3 Est. Patient 10:39:51 MACHINE BUILDER Capo Poe MD [facility] CPT-30730 Level 4 Est. Patient 09:44:24 MACHINE BUILDER Capo Poe MD [facility] CPT-91150 Level 3 Est. Patient 14:48:42 MACHINE BUILDER Zoran Arzola MD [facility] CPT-64369 Level 4 Est. Patient 10:24:02 CDT Capo Poe MD [facility] CPT-44001 Level 3 Est. Patient 15:42:00 CDT Maya WRIGHTP [facility] CPT-11815 Level 4 Est. Patient 13:34:15 CDT Capo Poe MD [facility] CPT-67231 Level 3 Est. Patient 15:32:10 MACHINE BUILDER Zoran Arzola MD [facility] CPT-69015 Level 3 New Patient 17:17:19 MACHINE BUILDER Zoran Arzola MD [facility] CPT-84851 Level 4 Est. Patient 10:25:01 MACHINE BUILDER Capo Poe MD [facility] CPT-46399 Level 3 Est. Patient 10:10:42 CDT Zoran Arzola MD [facility] CPT-54685 Level 3 Est. Patient 22:30:02 CDT Zoran Arzola MD [facility] CPT-22417 Level 4 Est. Patient 09:54:20 CDT Capo Poe MD [facility] CPT-82380 Level 3 Est. Patient 10:48:30 CDT Capo Poe MD [facility] CPT-69984 Level 3 Est. Patient 11:24:45 CDT Capo Poe MD [facility] CPT-09976 Level 3 Est. Patient 15:23:48 MACHINE BUILDER Capo Poe MD [facility] CPT-21838 Level 3 Est. Patient 15:10:03 MACHINE BUILDER Capo Poe MD [facility] CPT-56374 Level 3 Est. Patient 16:18:40 CDT Zoran Arzola MD [facility] Procedures Code Procedure Name Date Entry Date Standard Description CPT-89342 Chest 2V Frontal and Lat - XRAY USE ONLY 11:51:24 CDT CPT-59611 Venipuncture Draw Fee 11:31:49 CDT CPT-08713 Hemoccult IFOBT - LAB USE ONLY 14:11:43 MACHINE BUILDER CPT-76087 TPSA - LAB USE ONLY 10:37:52 MACHINE BUILDER CPT-40614 TSH - LAB USE ONLY 10:37:51 MACHINE BUILDER CPT-35543 CMP - LAB USE ONLY 10:37:51 MACHINE BUILDER CPT-29359 CBC with Diff - LAB USE ONLY 10:37:51 MACHINE BUILDER CPT-77591 Venipuncture Draw Fee 10:37:51 MACHINE BUILDER CPT-000 Give Pneumovax 10:39:30 CDT CPT-84994 Venipuncture Draw Fee 09:32:34 CDT CPT-G0438 Initial Annual Wellness Exam 10:24:35 CDT CPT-35556 Venipuncture Draw Fee 09:46:29 CDT CPT-08148 Venipuncture Draw Fee 14:30:06 CDT CPT-61805 Venipuncture Draw Fee 10:58:22 CDT CPT-22500 Abd single AP View 08:32:00 CDT CPT-49677 Postop F/U Visit 21:13:08 CDT CPT-25248 Abd single AP View 15:50:24 CDT CPT-42781 Cystoscopy W/rem FB 15:21:28 CDT CPT-91045 Abd single AP View 14:06:45 CDT CPT-04662 Postop F/U Visit 09:48:32 CDT CPT-67152 Abd single AP View 13:58:26 CDT CPT-66262 Hip comp min 2V 10:27:18 MACHINE BUILDER CPT-69583 Urine Dip (Floor Use Only) 13:41:01 MACHINE BUILDER CPT-01993 Postop F/U Visit 11:17:48 CDT CPT-LR Lesion Removal 11:50:22 CDT CPT-OV Office Visit 11:50:22 CDT CPT-74671 Pneumovax 23 10:55:48 CDT CPT-97969 Administration single or combination vaccine inc oral 10 :55:48 CDT CPT-Cryo Cryotherapy 11:18:11 CDT CPT-OV Office Visit 11:18:11 CDT CPT-69118 LS spine AP and Lat 09:05:22 CDT CPT-69228 Bladder Scan 15:42:00 CDT CPT-91359 Cystoscopy 15:42:00 CDT CPT-OV Office Visit 16:37:19 MACHINE BUILDER CPT-91383 Bladder Scan 15:32:10 MACHINE BUILDER CPT-79389 Cystoscopy 15:32:10 MACHINE BUILDER CPT-33830 Abd single AP View 14:05:59 MACHINE BUILDER CPT-84349 Pill cam small bowel 09:48:39 MACHINE BUILDER CPT-68646 Urine Dip (Floor Use Only) 17:17:19 MACHINE BUILDER CPT-98228 Bladder Scan 17:17:19 MACHINE BUILDER CPT-OV Office Visit 11:50:26 MACHINE BUILDER CPT-49570 Bladder Scan 10:10:42 CDT CPT-07025 Venipuncture Draw Fee 09:14:04 CDT CPT-25899 Chest 2V Frontal and Lat 10:10:49 CDT CPT-59100 LS spine comp w obliq 11:50:11 CDT CPT-12553 Venipuncture Draw Fee 08:52:57 MACHINE BUILDER CPT-30496 Cystoscopy W/rem FB 18:37:28 CDT CPT-54797 Abd single AP View 16:18:40 CDT CPT-34372 Abd compl w upright 17:30:59 CDT
--- OUTSIDE RECORDS SUMMARY | 2016-11-22 15:27 | XMS REPORT ---
Author Author [employer] [facility] Medical Staff Organization [facility] [employer] [facility] Address [address] [place], [place] [address] Phone [phone] Summary purpose TRANSITION OF CARE AUTO GENERATION [...] Allergen Category Ingredient Status Reaction Severity Onset Zzwxnwo-Pge-Xov Reductase Inhibitors Drug Allergy Ofmmmeq-Vmm-Skh Reductase Inhibitors Confirmed or Verified BACK PAIN morphine Drug Allergy morphine Confirmed or Verified Swelling Mild Adult Nitrofurantoin Drug Allergy Nitrofurantoin Confirmed or Verified Immunizations No immunizations recorded for this patient visit Relevant diagnostic tests and/or laboratory data No authorized results are available for this patient visit History of procedures No procedures recorded for [...]
--- OUTSIDE RECORDS SUMMARY | 2016-11-22 15:27 | XMS REPORT ---
Author Author [employer] [facility] Medical Staff Organization [place] [employer] [facility] Address [address] [place], [place] [address] Phone [phone] Summary purpose TRANSITION OF CARE AUTO GENERATION [...] Allergen Category Ingredient Status Reaction Severity Onset Vlyrcri-Fsy-Zmq Reductase Inhibitors Drug Allergy Aamfmyt-Wuq-Hwi Reductase Inhibitors Confirmed or Verified BACK PAIN [...]
--- OUTSIDE RECORDS SUMMARY | 2016-11-22 15:28 | XMS REPORT | Clinical Summary ---
Author Author Admin, QIE Organization [employer] Address Unknown Phone Unavailable Allergies, Adverse Reactions, [...] collapse Iron deficiency 280.9 Active Jasmin Dixon [facility] Iron deficiency anemia, unspecified NAUSEA AND [...] Poe MD Elevated creatinine ICD-790.4 Inactive Capo Peo MD Medication List Medication Instructions Start Date Stop Date Generic Name NDC Status Provider Patient Instruction EQL IRON SUPPLEMENT THERAPY 325 MG ORAL TABS 1 tab po twice daily FERROUS SULFATE 05571656659 Active Jasmin TEIXEIRA Active D ORAL TABS 2000 iu weekly D ORAL TABS Active Capo Poe MD Active CITALOPRAM HYDROBROMIDE 20 MG TABS 1 tablet by mouth daily CITALOPRAM HYDROBROMIDE 82885110567 Active Capo Poe MD Active CLARITIN 5 MG ORAL CHEW 1 tab po q day LORATADINE 09048905041 Active Felisa TEIXEIRA Active VIIBRYD STARTER PACK 10 & 20 MG ORAL KIT 1 po qd as directed 2015 VILAZODONE HCL 43462097061 No Longer Active Felisa TEIXEIRA Active HYDROXYZINE HCL 25 MG TAB 1 po qHS PRN Insomnia HYDROXYZINE HCL 16093210484 Active Capo Poe MD Active LISINOPRIL 10 MG TABS 1 tablet by mouth daily LISINOPRIL 62367729331 Active Capo Poe MD Active LORTAB 7.5-325 MG ORAL TABS 1 po q 6 hr prn pain HYDROCODONE- ACETAMINOPHEN 96963197237 No Longer Active Capo Poe MD Active FLOMAX 0.4 MG CAPS Take one by mouth daily TAMSULOSIN HCL 52915923288 No Longer Active Capo Poe MD Active TRIAMCINOLONE ACETONIDE 0.1 % CREA Apply to affected areas TID for up to 2 weeks TRIAMCINOLONE ACETONIDE 35047023454 Active Capo Poe MD Active NICOTINE 14 MG/24HR TRANS PT24 Apply/Change q 24hr NICOTINE 22158089602 No Longer Active Capo Poe MD Active TRAMADOL HCL 50 MG TABS 1-2 tablets every 6 hours as needed for pain TRAMADOL HCL 89496172150 No Longer Active Capo Poe MD Active SERTRALINE HCL 100 MG ORAL TABS take 1 tab daily SERTRALINE HCL 00897469642 No Longer Active Capo Poe MD Active LISINOPRIL-HYDROCHLOROTHIAZIDE 10-12.5 MG TABS 0.5 tab by mouth daily LISINOPRIL-HYDROCHLOROTHIAZIDE 52351904234 No Longer Active Capo Poe MD Active OMEPRAZOLE 20 MG CPDR 1 tablet by mouth daily OMEPRAZOLE 15581449307 Active Capo Poe MD Active WELLBUTRIN SR 150 MG ORAL [id number] 1 po BID BUPROPION HCL 88880467382 No Longer Active Capo Poe MD Active MIRALAX PACK 1 po qd PRN Constipation POLYETHYLENE GLYCOL 3350 50097309477 Active Capo Poe MD Active DULERA 100-5 MCG/ACT AERO 2 puffs BID MOMETASONE FURO- FORMOTEROL FUM 70261731927 Active Capo Poe MD Active ZOLOFT 100 MG TABS 1 po daily SERTRALINE HCL 35802580123 No Longer Active Zoran Arzola MD Active FERROUS SULFATE 325 (65 FE) MG TABS 1 tablet by mouth daily FERROUS SULFATE 09244555271 No Longer Active Capo Poe MD Active HYDROCODONE-ACETAMINOPHEN 7.5-300 MG TABS take one every six hours HYDROCODONE-ACETAMINOPHEN 71860811464 No Longer Active Capo Poe MD Active TRIAMCINOLONE ACETONIDE 0.1 % OINT Apply to affected areas TID for up to 2 weeks TRIAMCINOLONE ACETONIDE 25428383557 No Longer Active Joe Vargas RN Active FERROUS SULFATE 325 (65 FE) MG TABS Take one by mouth daily FERROUS SULFATE 05408983887 No Longer Active Capo Poe MD Active TRIAMCINOLONE ACETONIDE 0.1 % OINT Apply to affected areas TID for up to 2 weeks TRIAMCINOLONE ACETONIDE 55550184021 No Longer Active Capo Poe MD Active ADULT ASPIRIN LOW STRENGTH 81 MG TBDP qd ASPIRIN 35652429620 Active Zoran Arzola MD Active ALEVE 220 MG TAB prn NAPROXEN SODIUM 79742665351 Active Capo Poe MD Active MACROBID 100 MG CAP 1 cap by mouth twice daily NITROFURANTOIN MONOHYD MACRO 10885111423 No Longer Active Dona Becker Active AZITHROMYCIN 250 MG TABS 2 po qd x 1 day, then 1 po qd x 4 days AZITHROMYCIN 76531697983 No Longer Active Capo Poe MD Active FISH OIL 500 MG CAPS by mouth twice a day OMEGA-3 FATTY ACIDS 51485867745 Active Capo Poe MD Active FLAXSEED OIL 1000 MG CAPS Take two by mouth daily FLAXSEED (LINSEED) 81115859595 Active Zoran Arzola MD Active RED YEAST RICE 600 MG CAPS Take two by mouth daily RED YEAST RICE EXTRACT 07746243576 Active Zoran Arzola MD Active MULTIVITAMINS CAPS Take one by mouth daily MULTIPLE VITAMIN 94469349641 Active Zoran Arzola MD Active ICAPS MV TABS 2 po daily MULTIPLE VITAMINS-MINERALS 32900855464 Active Jam Arnold DO Active MACROBID 100 MG CAP 1 cap by mouth twice daily MACROBID 100 MG CAP 1604469 NITROFURANTOIN MONOHYD MACRO Inactive FERROUS SULFATE 325 (65 FE) MG TABS Take one by mouth daily FERROUS SULFATE 325 (65 FE) MG TABS 572681 FERROUS SULFATE Inactive HYDROCODONE-ACETAMINOPHEN 7.5-300 MG TABS take one every six hours HYDROCODONE-ACETAMINOPHEN 7.5-300 MG TABS 072852 HYDROCODONE- ACETAMINOPHEN Inactive FERROUS SULFATE 325 (65 FE) MG TABS 1 tablet by mouth daily FERROUS SULFATE 325 (65 FE) MG TABS 491903 FERROUS SULFATE Inactive ZOLOFT 100 MG TABS 1 po daily ZOLOFT 100 MG TABS 858886 SERTRALINE HCL Inactive SERTRALINE HCL 100 MG ORAL TABS take 1 tab daily SERTRALINE HCL 100 MG ORAL TABS 193579 SERTRALINE HCL Inactive TRAMADOL HCL 50 MG TABS 1-2 tablets every 6 hours as needed for pain TRAMADOL HCL 50 MG TABS 172642 TRAMADOL HCL Inactive NICOTINE 14 MG/24HR TRANS PT24 Apply/Change q 24hr NICOTINE 14 MG/24HR TRANS PT24 030230 NICOTINE Inactive FLOMAX 0.4 MG CAPS Take one by mouth daily FLOMAX 0.4 MG CAPS 147986 TAMSULOSIN HCL Inactive LORTAB 7.5-325 MG ORAL TABS 1 po q 6 hr prn pain LORTAB 7.5- 325 MG ORAL TABS 094285 HYDROCODONE-ACETAMINOPHEN Inactive VIIBRYD STARTER PACK 10 & 20 MG ORAL KIT 1 po qd as directed 2015 VIIBRYD STARTER PACK 10 & 20 MG ORAL KIT VILAZODONE HCL Inactive AZITHROMYCIN 250 MG TABS 2 po qd x 1 day, then 1 po qd x 4 days AZITHROMYCIN 250 MG TABS 9521565 AZITHROMYCIN Inactive TRIAMCINOLONE ACETONIDE 0.1 % OINT Apply to affected areas TID for up to 2 weeks TRIAMCINOLONE ACETONIDE 0.1 % OINT 9779148 TRIAMCINOLONE ACETONIDE Inactive TRIAMCINOLONE ACETONIDE 0.1 % OINT Apply to affected areas TID for up to 2 weeks TRIAMCINOLONE ACETONIDE 0.1 % OINT 0556692 TRIAMCINOLONE ACETONIDE Inactive Advance Directives Directive Description [...] ... - Chemistry sodium, serum 141 mmol/L 424-809 8197/01/27 carbon dioxide, venous blood 29.7 mmol/L 21.0-32.0 [...] ... - Chemistry sodium, serum 138 mmol/L 287-637 3536/03/18 carbon dioxide, venous blood 25.5 mmol/L 21.0-32.0 potassium, serum 4.6 mmol/L 3.5-5.2 chloride, serum 101 mmol/L 98-107 blood glucose 129 mg/dL 65-110 urea nitrogen, blood 20 mg/dL 7-18 creatinine, serum 1.87 mg/dL 0.55-1.30 alanine aminotransferase (SGPT), serum 26 U/L 12-78 aspartate aminotransferase (SGOT), serum 20 U/L 15-37 calcium, serum 8.8 mg/dL 8.5-10.1 bilirubin, serum, total 0.40 mg/dL 0.00-1.00 cholesterol, serum 251 mg/dL 904-582 6893/03/18 triglyceride, serum, fasting 135 mg/dL 30-200 HDL [...] 0-19 Encounters Code Encounter Date Provider Facility CPT-10020 Level 4 Est. Patient 09:26:11 SCUDDING INSPECTOR Capo Poe MD [facility] CPT-09620 Level 4 Est. Patient 08:53:08 CDT Capo Poe MD [facility] CPT-49813 Level 4 Est. Patient 10:22:57 CDT Capo Poe MD [facility] CPT-86991 Level 4 Est. Patient 13:44:30 CDT Capo Poe MD [facility] CPT-12035 Level 3 Est. Patient 14:59:32 SCUDDING INSPECTOR Capo Poe MD [facility] CPT-27170 Level 4 Est. Patient 10:46:15 SCUDDING INSPECTOR Capo Poe MD [facility] CPT-13015 Level 3 Est. Patient 11:00:53 CDT aCpo Poe MD [facility] CPT-48219 Level 3 Est. Patient 09:39:35 CDT Capo Poe MD [facility] CPT-15644 Level 3 Est. Patient 09:27:01 CDT Capo Poe MD [facility] CPT-34387 Level 3 Est. Patient 18:37:08 CDT Zoran Arzola MD [facility] CPT-63901 Level 3 Est. Patient 15:00:28 CDT Capo Poe MD [facility] CPT-77826 Level 3 Est. Patient 08:20:19 CDT Zoran Arzola MD [facility] CPT-57299 Level 3 Est. Patient 09:22:21 CDT Capo Poe MD [facility] CPT-68484 Level 4 Est. Patient 10:21:30 SCUDDING INSPECTOR Capo Poe MD [facility] CPT-00864 Level 3 Est. Patient 17:08:51 SCUDDING INSPECTOR Zoran Arzola MD [facility] CPT-64941 Level 4 Est. Patient 09:44:42 CDT Capo Poe MD [facility] CPT-02936 Level 4 Est. Patient 10:39:29 CDT Capo Poe MD [facility] CPT-09000 Level 3 Est. Patient 17:45:23 CDT Zoran Arzola MD [facility] CPT-74347 Level 4 Est. Patient 08:50:44 CDT Capo Poe MD [facility] CPT-93310 Level 3 Est. Patient 10:39:51 SCUDDING INSPECTOR Capo Poe MD [facility] CPT-79987 Level 4 Est. Patient 09:44:24 SCUDDING INSPECTOR Capo Poe MD [facility] CPT-79191 Level 3 Est. Patient 14:48:42 SCUDDING INSPECTOR Zoran Arzola MD [facility] CPT-02480 Level 4 Est. Patient 10:24:02 CDT Capo Poe MD [facility] CPT-43554 Level 3 Est. Patient 15:42:00 CDT Maya DUKES [facility] CPT-89900 Level 4 Est. Patient 13:34:15 CDT Capo Poe MD [facility] CPT-92637 Level 3 Est. Patient 15:32:10 SCUDDING INSPECTOR Zoran Arzola MD [facility] CPT-49332 Level 3 New Patient 17:17:19 SCUDDING INSPECTOR Zoran Arzola MD [facility] CPT-39309 Level 4 Est. Patient 10:25:01 SCUDDING INSPECTOR Capo Poe MD [facility] CPT-63848 Level 3 Est. Patient 10:10:42 CDT Zoran Arzola MD [facility] CPT-09547 Level 3 Est. Patient 22:30:02 CDT Zoran Arzola MD [facility] CPT-38890 Level 4 Est. Patient 09:54:20 CDT Capo Poe MD [facility] CPT-86364 Level 3 Est. Patient 10:48:30 CDT Capo Poe MD [facility] CPT-40157 Level 3 Est. Patient 11:24:45 CDT Capo Poe MD [facility] CPT-86632 Level 3 Est. Patient 15:23:48 SCUDDING INSPECTOR Capo Poe MD [facility] CPT-07790 Level 3 Est. Patient 15:10:03 SCUDDING INSPECTOR Capo Poe MD [facility] CPT-78987 Level 3 Est. Patient 16:18:40 CDT Zoran Arzola MD [facility] Procedures Code Procedure Name Date Entry Date Standard Description CPT-58372 Hemoccult IFOBT - LAB USE ONLY 14:11:43 SCUDDING INSPECTOR CPT-20761 TPSA - LAB USE ONLY 10:37:52 SCUDDING INSPECTOR CPT-84974 TSH - LAB USE ONLY 10:37:51 SCUDDING INSPECTOR CPT-09113 CMP - LAB USE ONLY 10:37:51 SCUDDING INSPECTOR CPT-85137 CBC with Diff - LAB USE ONLY 10:37:51 SCUDDING INSPECTOR CPT-05339 Venipuncture Draw Fee 10:37:51 SCUDDING INSPECTOR CPT-000 Give Pneumovax 10:39:30 CDT CPT-79675 Venipuncture Draw Fee 09:32:34 CDT CPT-G0438 Initial Annual Wellness Exam 10:24:35 CDT CPT-86661 Venipuncture Draw Fee 09:46:29 CDT CPT-94688 Venipuncture Draw Fee 14:30:06 CDT CPT-80549 Venipuncture Draw Fee 10:58:22 CDT CPT-10017 Abd single AP View 08:32:00 CDT CPT-19796 Postop F/U Visit 21:13:08 CDT CPT-78990 Abd single AP View 15:50:24 CDT CPT-19209 Cystoscopy W/rem FB 15:21:28 CDT CPT-75772 Abd single AP View 14:06:45 CDT CPT-84629 Postop F/U Visit 09:48:32 CDT CPT-88142 Abd single AP View 13:58:26 CDT CPT-52986 Hip comp min 2V 10:27:18 SCUDDING INSPECTOR CPT-31124 Urine Dip (Floor Use Only) 13:41:01 SCUDDING INSPECTOR CPT-91780 Postop F/U Visit 11:17:48 CDT CPT-LR Lesion Removal 11:50:22 CDT CPT-OV Office Visit 11:50:22 CDT CPT-23494 Pneumovax 23 10:55:48 CDT CPT-23994 Administration single or combination vaccine inc oral 10 :55:48 CDT CPT-Cryo Cryotherapy 11:18:11 CDT CPT-OV Office Visit 11:18:11 CDT CPT-48483 LS spine AP and Lat 09:05:22 CDT CPT-82342 Bladder Scan 15:42:00 CDT CPT-45647 Cystoscopy 15:42:00 CDT CPT-OV Office Visit 16:37:19 SCUDDING INSPECTOR CPT-29076 Bladder Scan 15:32:10 SCUDDING INSPECTOR CPT-54075 Cystoscopy 15:32:10 SCUDDING INSPECTOR CPT-95529 Abd single AP View 14:05:59 SCUDDING INSPECTOR CPT-23874 Pill cam small bowel 09:48:39 SCUDDING INSPECTOR CPT-92605 Urine Dip (Floor Use Only) 17:17:19 SCUDDING INSPECTOR CPT-71959 Bladder Scan 17:17:19 SCUDDING INSPECTOR CPT-OV Office Visit 11:50:26 SCUDDING INSPECTOR CPT-71015 Bladder Scan 10:10:42 CDT CPT-20550 Venipuncture Draw Fee 09:14:04 CDT CPT-49321 Chest 2V Frontal and Lat 10:10:49 CDT CPT-89559 LS spine comp w obliq 11:50:11 CDT CPT-13017 Venipuncture Draw Fee 08:52:57 SCUDDING INSPECTOR CPT-07543 Cystoscopy W/rem FB 18:37:28 CDT CPT-80242 Abd single AP View 16:18:40 CDT CPT-38655 Abd compl w upright 17:30:59 CDT
--- OUTSIDE RECORDS SUMMARY | 2016-11-22 15:29 | XMS REPORT | Clinical Summary ---
Author Author Admin, MARGE Organization [facility] Address Unknown Phone Unavailable Allergies, Adverse Reactions, [...] essential hypertension HEALTH SCREENING V70.0 Resolved Faisal Ngay MD Routine general medical examination at a [...] elsewhere classified ANEMIA 285.9 Active Felisa Shelley [facility] Anemia, unspecified U T I-RECURRENT 599.0 Resolved Cpao Poe MD Urinary tract infection, site not specified BLADDER CALCULUS 594.1 Resolved Capo Poe MD Other calculus in bladder HEMATURIA 599.70 Resolved Capo Poe MD Hematuria, unspecified BLADDER CALCULUS 594.1 Resolved Capo Poe MD Other calculus in bladder HEMATURIA 599.70 Resolved Capo Poe MD Hematuria, unspecified U T I-RECURRENT 599.0 Resolved Cpao Poe MD Urinary tract infection, site not [...] Poe MD FLANK PAIN ICD-789.09 Inactive Capo oPe MD 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 Inactive Capo Poe [...] Poe MD BLADDER CALCULUS ICD-594.1 Inactive Capo oPe MD HEMATURIA ICD-599.70 Inactive Capo Poe MD [...] po qd PRN Constipation POLYETHYLENE GLYCOL 3350 60753024684 Active Capo Poe MD Active DULERA 100-5 MCG/ACT AERO 2 puffs BID MOMETASONE FURO- FORMOTEROL FUM 19620929817 Active Capo Poe MD Active SERTRALINE HCL 100 MG ORAL TABS take 1 tab daily SERTRALINE HCL 14377753476 Active Capo Poe MD Active ZOLOFT 100 MG TABS 1 po daily SERTRALINE HCL 54862165633 No Longer Active Zoran Arzola MD Active FERROUS SULFATE 325 (65 FE) MG TABS 1 tablet by mouth daily FERROUS SULFATE 54813044853 No Longer Active Capo Poe MD Active TRAMADOL HCL 50 MG TABS 1-2 tablets every 6 hours as needed for pain TRAMADOL HCL 82998831777 Active Capo Poe MD Active HYDROCODONE-ACETAMINOPHEN 7.5-300 MG TABS take one every six hours HYDROCODONE-ACETAMINOPHEN 70469974898 No Longer Active Capo Poe MD Active TRIAMCINOLONE ACETONIDE 0.1 % OINT Apply to affected areas TID for up to 2 weeks TRIAMCINOLONE ACETONIDE 28859169405 No Longer Active Joe Vargas RN Active FERROUS SULFATE 325 (65 FE) MG TABS Take one by mouth daily FERROUS SULFATE 24689650736 No Longer Active Capo Poe MD Active TRIAMCINOLONE ACETONIDE 0.1 % OINT Apply to affected areas TID for up to 2 weeks TRIAMCINOLONE ACETONIDE 30354671383 No Longer Active Capo Poe MD Active ADULT ASPIRIN LOW STRENGTH 81 MG TBDP qd ASPIRIN 04489621802 Active Zoran Arzola MD Active ALEVE 220 MG TAB prn NAPROXEN SODIUM 88877620628 Active Capo Poe MD Active LISINOPRIL-HYDROCHLOROTHIAZIDE 10-12.5 MG TABS 1 tab by mouth daily LISINOPRIL-HYDROCHLOROTHIAZIDE 76905618588 Active Capo Poe MD Active MACROBID 100 MG CAP 1 cap by mouth twice daily NITROFURANTOIN MONOHYD MACRO 87484415898 No Longer Active Dona Becker Active AZITHROMYCIN 250 MG TABS 2 po qd x 1 day, then 1 po qd x 4 days AZITHROMYCIN 62435495972 No Longer Active Capo Poe MD Active FISH OIL 500 MG CAPS by mouth twice a day OMEGA-3 FATTY ACIDS 75290881601 Active Cpao Poe MD Active FLAXSEED OIL 1000 MG CAPS Take two by mouth daily FLAXSEED (LINSEED) 31645676488 Active Zoran Arzola MD Active RED YEAST RICE 600 MG CAPS Take two by mouth daily RED YEAST RICE EXTRACT 59485638585 Active Zoran Arzola MD Active MULTIVITAMINS CAPS Take one by mouth daily MULTIPLE VITAMIN 62190665138 Active Zoran Arzola MD Active ICAPS MV TABS 2 po daily MULTIPLE VITAMINS-MINERALS 84777896591 Active Jam Arnold DO Active MACROBID 100 MG CAP 1 cap by mouth twice daily MACROBID 100 MG CAP 987531 NITROFURANTOIN MONOHYD MACRO Inactive FERROUS SULFATE 325 (65 FE) MG TABS Take one by mouth daily FERROUS SULFATE 325 (65 FE) MG TABS 424831 FERROUS SULFATE Inactive HYDROCODONE-ACETAMINOPHEN 7.5-300 MG TABS take one every six hours HYDROCODONE-ACETAMINOPHEN 7.5-300 MG TABS 459997 HYDROCODONE- ACETAMINOPHEN Inactive FERROUS SULFATE 325 (65 FE) MG TABS 1 tablet by mouth daily FERROUS SULFATE 325 (65 FE) MG TABS 533781 FERROUS SULFATE Inactive ZOLOFT 100 MG TABS 1 po daily ZOLOFT 100 MG TABS 009712 SERTRALINE HCL Inactive AZITHROMYCIN 250 MG TABS 2 po qd x 1 day, then 1 po qd x 4 days AZITHROMYCIN 250 MG TABS 1268708 AZITHROMYCIN Inactive TRIAMCINOLONE ACETONIDE 0.1 % OINT Apply to affected areas TID for up to 2 weeks TRIAMCINOLONE ACETONIDE 0.1 % OINT 8301193 TRIAMCINOLONE ACETONIDE Inactive TRIAMCINOLONE ACETONIDE 0.1 % OINT Apply to affected areas TID for up to 2 weeks TRIAMCINOLONE ACETONIDE 0.1 % OINT 8987462 TRIAMCINOLONE ACETONIDE Inactive Advance Directives Directive Description [...] Panel - Chemistry sodium, serum 139 mmol/L 222-485 5823/07/30 potassium, serum 4.7 mmol/L 3.5-5.2 chloride, serum [...] CBC - Chemistry cholesterol, serum 207 mg/dL 482-060 6659/02/11 triglyceride, serum, fasting 74 mg/dL 30-200 HDL cholesterol, serum 62 mg/dL 32-96 LDL cholesterol, serum 130 mg/dL 0-130 sodium, serum 144 mmol/L 195-325 7610/02/11 potassium, serum 5.0 mmol/L 3.5-5.2 chloride, serum [...] negative Encounters Code Encounter Date Provider Facility CPT-05683 Level 3 Est. Patient 15:00:28 CDT Capo Poe MD [facility] CPT-13518 Level 3 Est. Patient 08:20:19 CDT Zoran Arzola MD [facility] CPT-28860 Level 3 Est. Patient 09:22:21 CDT Capo Poe MD [facility] CPT-58024 Level 4 Est. Patient 10:21:30 LANDSCAPE SPECIALIST Capo Poe MD [facility] CPT-00771 Level 3 Est. Patient 17:08:51 LANDSCAPE SPECIALIST Zoran Arzola MD [facility] CPT-18179 Level 4 Est. Patient 09:44:42 CDT Capo Poe MD [facility] CPT-52156 Level 4 Est. Patient 10:39:29 CDT Capo Poe MD [facility] CPT-41507 Level 3 Est. Patient 17:45:23 CDT Zoran Arzola MD [facility] CPT-02149 Level 4 Est. Patient 08:50:44 CDT Capo Poe MD [facility] CPT-51609 Level 3 Est. Patient 10:39:51 LANDSCAPE SPECIALIST Capo Poe MD [facility] CPT-55853 Level 4 Est. Patient 09:44:24 LANDSCAPE SPECIALIST Capo Poe MD [facility] CPT-10635 Level 3 Est. Patient 14:48:42 LANDSCAPE SPECIALIST Zoran Arzola MD [facility] CPT-90193 Level 4 Est. Patient 10:24:02 CDT Capo Poe MD [facility] CPT-02876 Level 3 Est. Patient 15:42:00 CDT Mayanina DUKES [facility] CPT-76292 Level 4 Est. Patient 13:34:15 CDT Capo Poe MD [facility] CPT-05066 Level 3 Est. Patient 15:32:10 LANDSCAPE SPECIALIST Zoran Arzola MD [facility] CPT-05796 Level 3 New Patient 17:17:19 LANDSCAPE SPECIALIST Zoran Arzola MD [facility] CPT-22579 Level 4 Est. Patient 10:25:01 LANDSCAPE SPECIALIST Capo Poe MD [facility] CPT-33766 Level 3 Est. Patient 10:10:42 CDT Zoran Arzola MD [facility] CPT-08701 Level 3 Est. Patient 22:30:02 CDT Zoran Arzola MD [facility] CPT-71387 Level 4 Est. Patient 09:54:20 CDT Capo Poe MD [facility] CPT-07113 Level 3 Est. Patient 10:48:30 CDT Capo Poe MD [facility] CPT-31749 Level 3 Est. Patient 11:24:45 CDT Capo Poe MD [facility] CPT-15256 Level 3 Est. Patient 15:23:48 LANDSCAPE SPECIALIST Capo Poe MD [facility] CPT-06373 Level 3 Est. Patient 15:10:03 LANDSCAPE SPECIALIST Capo Poe MD [facility] CPT-61986 Level 3 Est. Patient 16:18:40 CDT Zoran Arzola MD [facility] Procedures Code Procedure Name Date Entry Date Standard Description CPT-23812 Abd single AP View 08:32:00 CDT CPT-64021 Postop F/U Visit 21:13:08 CDT CPT-11957 Abd single AP View 15:50:24 CDT CPT-96122 Cystoscopy W/rem FB 15:21:28 CDT CPT-30208 Abd single AP View 14:06:45 CDT CPT-01266 Postop F/U Visit 09:48:32 CDT CPT-09323 Abd single AP View 13:58:26 CDT CPT-65329 Hip comp min 2V 10:27:18 LANDSCAPE SPECIALIST CPT-94726 Urine Dip (Floor Use Only) 13:41:01 LANDSCAPE SPECIALIST CPT-49047 Postop F/U Visit 11:17:48 CDT CPT-LR Lesion Removal 11:50:22 CDT CPT-OV Office Visit 11:50:22 CDT CPT-03552 Pneumovax 23 10:55:48 CDT CPT-91931 Administration single or combination vaccine inc oral 10 :55:48 CDT CPT-Cryo Cryotherapy 11:18:11 CDT CPT-OV Office Visit 11:18:11 CDT CPT-30431 LS spine AP and Lat 09:05:22 CDT CPT-22758 Bladder Scan 15:42:00 CDT CPT-17624 Cystoscopy 15:42:00 CDT CPT-OV Office Visit 16:37:19 LANDSCAPE SPECIALIST CPT-36673 Bladder Scan 15:32:10 LANDSCAPE SPECIALIST CPT-97785 Cystoscopy 15:32:10 LANDSCAPE SPECIALIST CPT-44448 Abd single AP View 14:05:59 LANDSCAPE SPECIALIST CPT-79141 Pill cam small bowel 09:48:39 LANDSCAPE SPECIALIST CPT-41365 Urine Dip (Floor Use Only) 17:17:19 LANDSCAPE SPECIALIST CPT-75215 Bladder Scan 17:17:19 LANDSCAPE SPECIALIST CPT-OV Office Visit 11:50:26 LANDSCAPE SPECIALIST CPT-46207 Bladder Scan 10:10:42 CDT CPT-51241 Venipuncture Draw Fee 09:14:04 CDT CPT-56113 Chest 2V Frontal and Lat 10:10:49 CDT CPT-52056 LS spine comp w obliq 11:50:11 CDT CPT-67911 Venipuncture Draw Fee 08:52:57 LANDSCAPE SPECIALIST CPT-51193 Cystoscopy W/rem FB 18:37:28 CDT CPT-54632 Abd single AP View 16:18:40 CDT CPT-37123 Abd compl w upright 17:30:59 CDT
--- OUTSIDE RECORDS SUMMARY | 2016-11-22 15:30 | XMS REPORT | Clinical Summary ---
Author Author Admin, MARGE Organization [facility] Address Unknown Phone Unavailable Allergies, [...] multiple sites PROSTATE CA 185 Active Zoran Azrola MD Malignant neoplasm of prostate PROSTATE CA 185 Resolved aCpo Poe MD Malignant neoplasm of prostate RENAL [...] MG/24HR TRANS PT24 Apply/Change q 24hr NICOTINE 36750105059 Active Capo Poe MD Active WELLBUTRIN SR 150 MG ORAL [id number] 1 po qd x 3 days, then 1 po BID BUPROPION HCL 51799278980 Active Capo Poe MD Active LORTAB 7.5-325 MG ORAL TABS 1 po q 6 hr prn pain HYDROCODONE- ACETAMINOPHEN 98247371877 Active Capo Poe MD Active FLOMAX 0.4 MG CAPS Take one by mouth daily TAMSULOSIN HCL 78667945983 Active Capo Poe MD Active MIRALAX PACK 1 po qd PRN Constipation POLYETHYLENE GLYCOL 3350 18524721038 Active Capo Poe MD Active DULERA 100-5 MCG/ACT AERO 2 puffs BID MOMETASONE FURO- FORMOTEROL FUM 25818394690 Active Capo Poe MD Active SERTRALINE HCL 100 MG ORAL TABS take 1 tab daily SERTRALINE HCL 98455510893 Active Capo Poe MD Active ZOLOFT 100 MG TABS 1 po daily SERTRALINE HCL 92154718256 No Longer Active Zoran Arzola MD Active FERROUS SULFATE 325 (65 FE) MG TABS 1 tablet by mouth daily FERROUS SULFATE 80136244284 No Longer Active Capo Poe MD Active TRAMADOL HCL 50 MG TABS 1-2 tablets every 6 hours as needed for pain TRAMADOL HCL 09921199517 Active Capo Poe MD Active HYDROCODONE-ACETAMINOPHEN 7.5-300 MG TABS take one every six hours HYDROCODONE-ACETAMINOPHEN 38966984140 No Longer Active Capo Poe MD Active TRIAMCINOLONE ACETONIDE 0.1 % OINT Apply to affected areas TID for up to 2 weeks TRIAMCINOLONE ACETONIDE 50543166940 No Longer Active Joe Vargas RN Active FERROUS SULFATE 325 (65 FE) MG TABS Take one by mouth daily FERROUS SULFATE 70728000483 No Longer Active Capo Poe MD Active TRIAMCINOLONE ACETONIDE 0.1 % OINT Apply to affected areas TID for up to 2 weeks TRIAMCINOLONE ACETONIDE 30934278803 No Longer Active Capo Poe MD Active ADULT ASPIRIN LOW STRENGTH 81 MG TBDP qd ASPIRIN 65260532915 Active Zoran Arzola MD Active ALEVE 220 MG TAB prn NAPROXEN SODIUM 21099767556 Active Capo Poe MD Active LISINOPRIL-HYDROCHLOROTHIAZIDE 10-12.5 MG TABS 1 tab by mouth daily LISINOPRIL-HYDROCHLOROTHIAZIDE 44817990544 Active Capo Poe MD Active MACROBID 100 MG CAP 1 cap by mouth twice daily NITROFURANTOIN MONOHYD MACRO 07855689270 No Longer Active Dona Becker Active AZITHROMYCIN 250 MG TABS 2 po qd x 1 day, then 1 po qd x 4 days AZITHROMYCIN 05755665744 No Longer Active Capo Poe MD Active FISH OIL 500 MG CAPS by mouth twice a day OMEGA-3 FATTY ACIDS 99788741065 Active Capo Poe MD Active FLAXSEED OIL 1000 MG CAPS Take two by mouth daily FLAXSEED (LINSEED) 66724116055 Elza Arzola MD Active RED YEAST RICE 600 MG CAPS Take two by mouth daily RED YEAST RICE EXTRACT 35532867877 Elza Arzola MD Active MULTIVITAMINS CAPS Take one by mouth daily MULTIPLE VITAMIN 30852607236 Active Zoran Arzola MD Active ICAPS MV TABS 2 po daily MULTIPLE VITAMINS-MINERALS 51323615735 Active Jam Arnold DO Active MACROBID 100 MG CAP 1 cap by mouth twice daily MACROBID 100 MG CAP 2648968 NITROFURANTOIN MONOHYD MACRO Inactive FERROUS SULFATE 325 (65 FE) MG TABS Take one by mouth daily FERROUS SULFATE 325 (65 FE) MG TABS 755964 FERROUS SULFATE Inactive HYDROCODONE-ACETAMINOPHEN 7.5-300 MG TABS take one every six hours HYDROCODONE-ACETAMINOPHEN 7.5-300 MG TABS 683715 HYDROCODONE- ACETAMINOPHEN Inactive FERROUS SULFATE 325 (65 FE) MG TABS 1 tablet by mouth daily FERROUS SULFATE 325 (65 FE) MG TABS 397124 FERROUS SULFATE Inactive ZOLOFT 100 MG TABS 1 po daily ZOLOFT 100 MG TABS 862308 SERTRALINE HCL Inactive AZITHROMYCIN 250 MG TABS 2 po qd x 1 day, then 1 po qd x 4 days AZITHROMYCIN 250 MG TABS 5293880 AZITHROMYCIN Inactive TRIAMCINOLONE ACETONIDE 0.1 % OINT Apply to affected areas TID for up to 2 weeks TRIAMCINOLONE ACETONIDE 0.1 % OINT 7808395 TRIAMCINOLONE ACETONIDE Inactive TRIAMCINOLONE ACETONIDE 0.1 % OINT Apply to affected areas TID for up to 2 weeks TRIAMCINOLONE ACETONIDE 0.1 % OINT 0070211 TRIAMCINOLONE ACETONIDE Inactive Advance Directives Directive Description [...] Panel - Chemistry sodium, serum 139 mmol/L 701-962 6050/07/30 potassium, serum 4.7 mmol/L 3.5-5.2 chloride, serum [...] CBC - Chemistry cholesterol, serum 207 mg/dL 870-497 8627/02/11 triglyceride, serum, fasting 74 mg/dL 30-200 HDL cholesterol, serum 62 mg/dL 32-96 LDL cholesterol, serum 130 mg/dL 0-130 sodium, serum 144 mmol/L 376-517 7452/02/11 potassium, serum 5.0 mmol/L 3.5-5.2 chloride, serum [...] negative Encounters Code Encounter Date Provider Facility CPT-67559 Level 3 Est. Patient 09:27:01 CDT Capo Poe MD [facility] CPT-33268 Level 3 Est. Patient 18:37:08 CDT Zoran Arzola MD [facility] CPT-50391 Level 3 Est. Patient 15:00:28 CDT Capo Poe MD [facility] CPT-36606 Level 3 Est. Patient 08:20:19 CDT Zoran Arzola MD [facility] CPT-73408 Level 3 Est. Patient 09:22:21 CDT Capo Poe MD [facility] CPT-22291 Level 4 Est. Patient 10:21:30 SURVEY QUESTIONNAIRE DESIGNER Capo Poe MD [facility] CPT-67466 Level 3 Est. Patient 17:08:51 SURVEY QUESTIONNAIRE DESIGNER Zoran Arzola MD [facility] CPT-76287 Level 4 Est. Patient 09:44:42 CDT Capo Poe MD [facility] CPT-34786 Level 4 Est. Patient 10:39:29 CDT Capo Poe MD [facility] CPT-05093 Level 3 Est. Patient 17:45:23 CDT Zoran Arzola MD [facility] CPT-62453 Level 4 Est. Patient 08:50:44 CDT Capo Poe MD [facility] CPT-02149 Level 3 Est. Patient 10:39:51 SURVEY QUESTIONNAIRE DESIGNER Capo Poe MD [facility] CPT-37734 Level 4 Est. Patient 09:44:24 SURVEY QUESTIONNAIRE DESIGNER Capo Poe MD [facility] CPT-93953 Level 3 Est. Patient 14:48:42 SURVEY QUESTIONNAIRE DESIGNER Zoran Arzola MD [facility] CPT-83113 Level 4 Est. Patient 10:24:02 CDT Capo Poe MD [facility] CPT-52796 Level 3 Est. Patient 15:42:00 CDT Maya WRIGHTP [facility] CPT-71036 Level 4 Est. Patient 13:34:15 CDT Capo Poe MD [facility] CPT-78774 Level 3 Est. Patient 15:32:10 SURVEY QUESTIONNAIRE DESIGNER Zoran Arzola MD [facility] CPT-24728 Level 3 New Patient 17:17:19 SURVEY QUESTIONNAIRE DESIGNER Zoran Arzola MD [facility] CPT-55221 Level 4 Est. Patient 10:25:01 SURVEY QUESTIONNAIRE DESIGNER Capo Poe MD [facility] CPT-80439 Level 3 Est. Patient 10:10:42 CDT Zoran Arzola MD [facility] CPT-50168 Level 3 Est. Patient 22:30:02 CDT Zoran Arzola MD [facility] CPT-85160 Level 4 Est. Patient 09:54:20 CDT Capo Poe MD [facility] CPT-72428 Level 3 Est. Patient 10:48:30 CDT Capo Poe MD [facility] CPT-86760 Level 3 Est. Patient 11:24:45 CDT Capo Poe MD [facility] CPT-41352 Level 3 Est. Patient 15:23:48 SURVEY QUESTIONNAIRE DESIGNER Capo Poe MD [facility] CPT-81999 Level 3 Est. Patient 15:10:03 SURVEY QUESTIONNAIRE DESIGNER Capo Poe MD [facility] CPT-70118 Level 3 Est. Patient 16:18:40 CDT Zoran Arzola MD [facility] Procedures Code Procedure Name Date Entry Date Standard Description CPT-47205 Abd single AP View 08:32:00 CDT CPT-83791 Postop F/U Visit 21:13:08 CDT CPT-30587 Abd single AP View 15:50:24 CDT CPT-68129 Cystoscopy W/rem FB 15:21:28 CDT CPT-37368 Abd single AP View 14:06:45 CDT CPT-12484 Postop F/U Visit 09:48:32 CDT CPT-57242 Abd single AP View 13:58:26 CDT CPT-67406 Hip comp min 2V 10:27:18 SURVEY QUESTIONNAIRE DESIGNER CPT-85620 Urine Dip (Floor Use Only) 13:41:01 SURVEY QUESTIONNAIRE DESIGNER CPT-71604 Postop F/U Visit 11:17:48 CDT CPT-LR Lesion Removal 11:50:22 CDT CPT-OV Office Visit 11:50:22 CDT CPT-50506 Pneumovax 23 10:55:48 CDT CPT-32831 Administration single or combination vaccine inc oral 10 :55:48 CDT CPT-Cryo Cryotherapy 11:18:11 CDT CPT-OV Office Visit 11:18:11 CDT CPT-99112 LS spine AP and Lat 09:05:22 CDT CPT-15114 Bladder Scan 15:42:00 CDT CPT-72567 Cystoscopy 15:42:00 CDT CPT-OV Office Visit 16:37:19 SURVEY QUESTIONNAIRE DESIGNER CPT-24631 Bladder Scan 15:32:10 SURVEY QUESTIONNAIRE DESIGNER CPT-33507 Cystoscopy 15:32:10 SURVEY QUESTIONNAIRE DESIGNER CPT-01783 Abd single AP View 14:05:59 SURVEY QUESTIONNAIRE DESIGNER CPT-28841 Pill cam small bowel 09:48:39 SURVEY QUESTIONNAIRE DESIGNER CPT-12232 Urine Dip (Floor Use Only) 17:17:19 SURVEY QUESTIONNAIRE DESIGNER CPT-08091 Bladder Scan 17:17:19 SURVEY QUESTIONNAIRE DESIGNER CPT-OV Office Visit 11:50:26 SURVEY QUESTIONNAIRE DESIGNER CPT-90532 Bladder Scan 10:10:42 CDT CPT-16712 Venipuncture Draw Fee 09:14:04 CDT CPT-42992 Chest 2V Frontal and Lat 10:10:49 CDT CPT-44922 LS spine comp w obliq 11:50:11 CDT CPT-74591 Venipuncture Draw Fee 08:52:57 SURVEY QUESTIONNAIRE DESIGNER CPT-51041 Cystoscopy W/rem FB 18:37:28 CDT CPT-12586 Abd single AP View 16:18:40 CDT CPT-83423 Abd compl w upright 17:30:59 CDT
--- OUTSIDE RECORDS SUMMARY | 2016-11-22 15:30 | XMS REPORT | Clinical Summary ---
Author Author Admin, MARGE Organization [facility] Address Unknown Phone Unavailable Allergies, Adverse Reactions, [...] 2 puffs BID MOMETASONE FURO- FORMOTEROL FUM 91415220287 Active Capo Poe MD Active SERTRALINE HCL 100 MG ORAL TABS take 1 tab daily SERTRALINE HCL 74203538730 Active Capo Poe MD Active ZOLOFT 100 MG TABS 1 po daily SERTRALINE HCL 93881728351 No Longer Active Zoran Arzola MD Active FERROUS SULFATE 325 (65 FE) MG TABS 1 tablet by mouth daily FERROUS SULFATE 71046584902 No Longer Active Capo Poe MD Active TRAMADOL HCL 50 MG TABS 1-2 tablets every 6 hours as needed for pain TRAMADOL HCL 69445182210 Active Capo Poe MD Active HYDROCODONE-ACETAMINOPHEN 7.5-300 MG TABS take one every six hours HYDROCODONE-ACETAMINOPHEN 12170168671 No Longer Active Capo Poe MD Active TRIAMCINOLONE ACETONIDE 0.1 % OINT Apply to affected areas TID for up to 2 weeks TRIAMCINOLONE ACETONIDE 80774170786 No Longer Active Joe Vargas RN Active FERROUS SULFATE 325 (65 FE) MG TABS Take one by mouth daily FERROUS SULFATE 52208322964 No Longer Active Capo Poe MD Active TRIAMCINOLONE ACETONIDE 0.1 % OINT Apply to affected areas TID for up to 2 weeks TRIAMCINOLONE ACETONIDE 25793535711 No Longer Active Capo Poe MD Active ADULT ASPIRIN LOW STRENGTH 81 MG TBDP qd ASPIRIN 89989382569 Active Zoran Arzola MD Active ALEVE 220 MG TAB prn NAPROXEN SODIUM 98758903678 Active Capo Poe MD Active LISINOPRIL-HYDROCHLOROTHIAZIDE 10-12.5 MG TABS 1 tab by mouth daily LISINOPRIL-HYDROCHLOROTHIAZIDE 83916141998 Active Capo Poe MD Active MACROBID 100 MG CAP 1 cap by mouth twice daily NITROFURANTOIN MONOHYD MACRO 17338653350 No Longer Active Dona Becker Active AZITHROMYCIN 250 MG TABS 2 po qd x 1 day, then 1 po qd x 4 days AZITHROMYCIN 85373019922 No Longer Active Capo Poe MD Active FISH OIL 500 MG CAPS by mouth twice a day OMEGA-3 FATTY ACIDS 08602540848 Active Capo Poe MD Active FLAXSEED OIL 1000 MG CAPS Take two by mouth daily FLAXSEED (LINSEED) 17373278648 Active Zoran Arzola MD Active RED YEAST RICE 600 MG CAPS Take two by mouth daily RED YEAST RICE EXTRACT 43907966647 Active Zoran Arzola MD Active MULTIVITAMINS CAPS Take one by mouth daily MULTIPLE VITAMIN 10686181370 Active Zoran Arzola MD Active ICAPS MV TABS 2 po daily MULTIPLE VITAMINS-MINERALS 65328327937 Active Jam Arnold DO Active MACROBID 100 MG CAP 1 cap by mouth twice daily MACROBID 100 MG CAP 460155 NITROFURANTOIN MONOHYD MACRO Inactive FERROUS SULFATE 325 (65 FE) MG TABS Take one by mouth daily FERROUS SULFATE 325 (65 FE) MG TABS 401777 FERROUS SULFATE Inactive HYDROCODONE-ACETAMINOPHEN 7.5-300 MG TABS take one every six hours HYDROCODONE-ACETAMINOPHEN 7.5-300 MG TABS 769059 HYDROCODONE- ACETAMINOPHEN Inactive FERROUS SULFATE 325 (65 FE) MG TABS 1 tablet by mouth daily FERROUS SULFATE 325 (65 FE) MG TABS 955927 FERROUS SULFATE Inactive ZOLOFT 100 MG TABS 1 po daily ZOLOFT 100 MG TABS 284315 SERTRALINE HCL Inactive AZITHROMYCIN 250 MG TABS 2 po qd x 1 day, then 1 po qd x 4 days AZITHROMYCIN 250 MG TABS 1100160 AZITHROMYCIN Inactive TRIAMCINOLONE ACETONIDE 0.1 % OINT Apply to affected areas TID for up to 2 weeks TRIAMCINOLONE ACETONIDE 0.1 % OINT 6858151 TRIAMCINOLONE ACETONIDE Inactive TRIAMCINOLONE ACETONIDE 0.1 % OINT Apply to affected areas TID for up to 2 weeks TRIAMCINOLONE ACETONIDE 0.1 % OINT 3161476 TRIAMCINOLONE ACETONIDE Inactive Advance Directives Directive Description [...] Description Chart Maintenance: Outside labs entered on [employer] - Chemistry sodium, serum 137 mmol/L potassium, [...] Panel - Chemistry sodium, serum 140 mmol/L 591-048 6515/05/21 potassium, serum 4.0 mmol/L 3.5-5.2 chloride, serum [...] Metabolic Panel - Hematology leukocyte count, blood 7.6 10^3/MM^3 10*3/mm3 4.6-10.2 neutrophils as percent of blood leukocytes 72.8 % 42.2-75.2 monocytes as percent of blood leukocytes 6.2 % 1.7-9.3 lymphocytes as percent of blood leukocytes 18.0 [...] CBC - Chemistry cholesterol, serum 207 mg/dL 185-721 1221/02/11 triglyceride, serum, fasting 74 mg/dL 30-200 HDL cholesterol, serum 62 mg/dL 32-96 LDL cholesterol, serum 130 mg/dL 0-130 sodium, serum 144 mmol/L 638-660 3443/02/11 potassium, serum 5.0 mmol/L 3.5-5.2 chloride, serum [...] 0.00-4.00 Lab Report: Prothrombin Time - Coagulation prothrombin time (patient) 11.5 SECS s 11.1-13.4 international normalized ratio (INR) 0.9 1.0-3.5 Office Visit: 4 mo f/u prostate cancer [...] negative Encounters Code Encounter Date Provider Facility CPT-93839 Level 3 Est. Patient 08:20:19 CDT Zoran Arzola MD [facility] CPT-30563 Level 3 Est. Patient 09:22:21 CDT Capo Poe MD [facility] CPT-48473 Level 4 Est. Patient 10:21:30 POLICY SPECIALIST Capo Poe MD [facility] CPT-99100 Level 3 Est. Patient 17:08:51 POLICY SPECIALIST Zoran Arzola MD [facility] CPT-30835 Level 4 Est. Patient 09:44:42 CDT Capo Poe MD [facility] CPT-99736 Level 4 Est. Patient 10:39:29 CDT Capo Poe MD [facility] CPT-01634 Level 3 Est. Patient 17:45:23 CDT Zoran Arzola MD [facility] CPT-90938 Level 4 Est. Patient 08:50:44 CDT Capo Poe MD [facility] CPT-73312 Level 3 Est. Patient 10:39:51 POLICY SPECIALIST Capo Poe MD [facility] CPT-20385 Level 4 Est. Patient 09:44:24 POLICY SPECIALIST Capo Poe MD [facility] CPT-74797 Level 3 Est. Patient 14:48:42 POLICY SPECIALIST Zoran Arzola MD [facility] CPT-50920 Level 4 Est. Patient 10:24:02 CDT Capo Poe MD [facility] CPT-21260 Level 3 Est. Patient 15:42:00 CDT Maya Brownlee ERNST [facility] CPT-66875 Level 4 Est. Patient 13:34:15 CDT Capo Poe MD [facility] CPT-32704 Level 3 Est. Patient 15:32:10 POLICY SPECIALIST Zoran Arzola MD [facility] CPT-33349 Level 3 New Patient 17:17:19 POLICY SPECIALIST Zoran Arzola MD [facility] CPT-71022 Level 4 Est. Patient 10:25:01 POLICY SPECIALIST Capo Poe MD [facility] CPT-86465 Level 3 Est. Patient 10:10:42 CDT Zoran Arzola MD [facility] CPT-54199 Level 3 Est. Patient 22:30:02 CDT Zoran Arzola MD [facility] CPT-52232 Level 4 Est. Patient 09:54:20 CDT Capo Poe MD [facility] CPT-89180 Level 3 Est. Patient 10:48:30 CDT Capo Poe MD [facility] CPT-78111 Level 3 Est. Patient 11:24:45 CDT Capo Poe MD [facility] CPT-16134 Level 3 Est. Patient 15:23:48 POLICY SPECIALIST Capo Poe MD [facility] CPT-25881 Level 3 Est. Patient 15:10:03 POLICY SPECIALIST Capo Poe MD [facility] CPT-68097 Level 3 Est. Patient 16:18:40 CDT Zoran Arzola MD [facility] Procedures Code Procedure Name Date Entry Date Standard Description CPT-04061 Cystoscopy W/rem FB 15:21:28 CDT CPT-06332 Abd single AP View 14:06:45 CDT CPT-88564 Postop F/U Visit 09:48:32 CDT CPT-69096 Abd single AP View 13:58:26 CDT CPT-60239 Hip comp min 2V 10:27:18 POLICY SPECIALIST CPT-07105 Urine Dip (Floor Use Only) 13:41:01 POLICY SPECIALIST CPT-94358 Postop F/U Visit 11:17:48 CDT CPT-LR Lesion Removal 11:50:22 CDT CPT-OV Office Visit 11:50:22 CDT CPT-89622 Pneumovax 23 10:55:48 CDT CPT-02707 Administration single or combination vaccine inc oral 10 :55:48 CDT CPT-Cryo Cryotherapy 11:18:11 CDT CPT-OV Office Visit 11:18:11 CDT CPT-98864 LS spine AP and Lat 09:05:22 CDT CPT-50059 Bladder Scan 15:42:00 CDT CPT-04114 Cystoscopy 15:42:00 CDT CPT-OV Office Visit 16:37:19 POLICY SPECIALIST CPT-89752 Bladder Scan 15:32:10 POLICY SPECIALIST CPT-52809 Cystoscopy 15:32:10 POLICY SPECIALIST CPT-56122 Abd single AP View 14:05:59 POLICY SPECIALIST CPT-95132 Pill cam small bowel 09:48:39 POLICY SPECIALIST CPT-05854 Urine Dip (Floor Use Only) 17:17:19 POLICY SPECIALIST CPT-64808 Bladder Scan 17:17:19 POLICY SPECIALIST CPT-OV Office Visit 11:50:26 POLICY SPECIALIST CPT-90766 Bladder Scan 10:10:42 CDT CPT-80867 Venipuncture Draw Fee 09:14:04 CDT CPT-59814 Chest 2V Frontal and Lat 10:10:49 CDT CPT-71640 LS spine comp w obliq 11:50:11 CDT CPT-77057 Venipuncture Draw Fee 08:52:57 POLICY SPECIALIST CPT-42347 Cystoscopy W/rem FB 18:37:28 CDT CPT-22022 Abd single AP View 16:18:40 CDT CPT-44366 Abd compl w upright 17:30:59 CDT
--- OUTSIDE RECORDS SUMMARY | 2016-11-22 15:31 | XMS REPORT ---
Author Author [facility] Medical Staff Organization [facility] Address [address] [place], [place] [id number] Phone [phone] Summary purpose TRANSITION OF CARE AUTO GENERATION [...] Allergen Category Ingredient Status Reaction Severity Onset Llsiygu-Owb-Mdx Reductase Inhibitors Drug Allergy Hutbioe-Mic-Nsy Reductase Inhibitors Confirmed or Verified BACK PAIN [...]
--- OUTSIDE RECORDS SUMMARY | 2016-11-22 15:31 | XMS REPORT ---
Author Author [facility] Medical Staff Organization [employer] [facility] Address [address] [place] [id number] Phone [phone] Care Team Providers Care President & Ceo Name Role Phone KRISTINA MENJIVAR MD PP [phone] Summary purpose TRANSITION OF CARE AUTO GENERATION Chief Complaint and Reason for Visit Admit Diagnosis 1 CHEST PAIN NOS Problem list No authorized problems tracked for continuity of care are available for this visit. Encounters No authorized problems tracked for encounter diagnoses are available for this visit. Medications No medications recorded for this patient visit Allergies, adverse reactions, alerts Allergen Category Ingredient Status Reaction Severity Onset Nddqrvz-Ucn-Hib Reductase Inhibitors Drug Allergy Douooqm-Vrf-Tha Reductase Inhibitors Confirmed or Verified BACK PAIN morphine Drug Allergy morphine Confirmed or Verified Swelling Mild Adult Nitrofurantoin Drug Allergy Nitrofurantoin Confirmed or Verified Immunizations No immunizations recorded for this patient visit Relevant diagnostic tests and/or laboratory data No authorized results are available for this patient visit History of procedures Procedure Code Code Type Description Date Performed Performing Physician [id number] CPT-4 ALS1-EMERGENCY 10-15-2014 VALDEZ MEEK [id number] CPT-4 GROUND MILEAGE 10-15-2014 VALDEZ MEEK Functional status No functional or cognitive status [...]
--- OUTSIDE RECORDS SUMMARY | 2016-11-22 15:31 | XMS REPORT ---
Author Author [facility] [employer] [facility] Medical Staff Organization [facility] [employer] [facility] Address [address] [place], [place] [address] Phone [phone] Care Team Providers Care Director Home Health Name Role Phone CAPO MENJIVAR MD PP [phone] Summary purpose TRANSITION OF CARE AUTO GENERATION [...] Allergen Category Ingredient Status Reaction Severity Onset Vohunbg-Lbi-Ips Reductase Inhibitors Drug Allergy Motvfri-Xvh-Vke Reductase Inhibitors Confirmed or Verified BACK PAIN morphine Drug Allergy morphine Confirmed or Verified Swelling Mild Adult Nitrofurantoin Drug Allergy Nitrofurantoin Confirmed or Verified Immunizations No immunizations recorded for this patient visit Relevant diagnostic tests and/or laboratory data RESULTS Chemistry [id number]:15:00 Result Normal Range Units Sodium 137 134-145 mEq/l Potassium 4.4 3.5-5.1 mEq/l Chloride 101 98-107 mEq/l CO2 H 29.2 22-28 mEq/l Glucose H 107 70-105 mg/dl BUN H 26 7-18 mg/dl Creatinine H 1.74 0.6-1.3 mg/dl Calcium 8.6 8.4-10.2 mg/dl TP - Total Protein 7.1 6.0-8.3 g/dl Albumin 3.8 3.5-5 g/dl Bilirubin - Total 0.4 0.1-1.0 mg/dl AST 23 10-42 IU/L ALT 28 12-65 IU/L ALP H 111 39-107 IU/L Lipase 240 73-393 U/L Osmolality L 279.1 280-300 mOsm/L Albumin/Globulin Ratio 1.2 0-8 Anion GAP L 6.8 8-16 BUN/Creatinine Ratio 14.9 10-20 Estimated GFR L 38 >=60 mL/min/1.7 Hematology [id number]:15:00 Result Normal Range Units WBC 8.0 4.8-10.8 103/uL RBC L 4.0 4.7-6.1 106/uL HGB L 12.3 13.0-18.0 g/dl HCT L 38.4 41.9-52.0 % MCV H 96.7 80-94 FL MCH 31.0 27-31 pg MCHC L 32.0 33-37 g/dl RDW 12.9 11.5-15.5 % PLT 219 130-400 103/uL MPV 9.6 7.3-10.4 FL Neutro % 58.8 40-70 % Lymph % 28.7 20-40 % [place] % 8.5 0-10.0 % Eos % 2.6 0-7.0 % Baso % 1.0 0-2 % Neutro # 4.7 1.5-7.5 103/uL Lymph # 2.3 0.9-4.0 103/uL [place] # 0.7 0-0.8 103/uL Eos # 0.2 0-0.6 103/uL Baso # 0.1 0-0.1 103/uL Microbiology [id number]:15:00 Result Normal Range Units Gastroccult Negative Negative Cardiac :15:00 Result Normal Range Units Troponin I < 0.04 0.0-0.4 ng/ml Patient samples may contain heterophilic antibodies that could react in immunoassays to give falsely elevated or depressed results. This Dimension assay has been designed to minimize interference from heterophilic antibodies. Nevertheless, complete elimination of this interference from all patient specimens cannot be guaranteed. A test result that is inconsistent with the clinical picture and patient history should be interpreted with caution. Radiology Results [id number]:34:00 Acute ABD X-Ray PACs Image DATE OF EXAM: Dec 30 2014 RAD 0060-ACUTE ABDOMEN X RAY : RADIOLOGY REPORT DATE OF SERVICE: 12/30/14 HISTORY: Abdominal pain, chest pain, nausea and vomiting. ACUTE ABDOMEN SERIES 2045 HOURS There is a large hiatal hernia. This contains an air fluid level. There is a moderate amount of stool throughout the colon. The small bowel is normal. There is no free air. Multiple calcifications are present overlying the lower pole of the right kidney. These range from 5-17 mm in size. IMPRESSION: Large hiatal hernia. Obstruction of the hernia cannot be entirely excluded due to presence of an air fluid level. Multiple right renal calculi. Large amount of colonic stool present. MD DIANE Mueller/in12/31/2014 08:34:00 / 12/31/2014 09:01:04 cc:Dr. Capo Menjivar This document has been electronically Signed by: On: DATE OF EXAM: Dec 30 2014 RAD 0060-ACUTE ABDOMEN X RAY : RADIOLOGY REPORT DATE OF SERVICE: 12/30/14 HISTORY: Abdominal pain, chest pain, nausea and vomiting. ACUTE ABDOMEN SERIES 2045 HOURS There is a large hiatal hernia. This contains an air fluid level. There is a moderate amount of stool throughout the colon. The small bowel is normal. There is no free air. Multiple calcifications are present overlying the lower pole of the right kidney. These range from 5-17 mm in size. IMPRESSION: Large hiatal hernia. Obstruction of the hernia cannot be entirely excluded due to presence of an air fluid level. Multiple right renal calculi. Large amount of colonic stool present. MD DIANE Mueller/in12/31/2014 08:34:00 / 12/31/2014 09:01:04 cc:Dr. Capo Menjivar This document has been electronically Signed by: ANGELIA SHUKLA MD On: Dec 31 2014 11:34A Result Amended on 2014-12-31 at 11:34:47. Previous status was ID. [id number]:00 Result Normal Range Units MPV 9.6 7.3-10.4 FL History of procedures Procedure Code Code Type Description Date Performed Performing Physician 12849 CPT-4 COMPLETE CBC W/AUTO DIFF WBC 12-30-2014 VALDEZ DEBBIE 75282 CPT-4 COMPREHEN METABOLIC PANEL 12-30-2014 VALDEZ DBEBIE 42450 CPT-4 ASSAY OF LIPASE 12-30-2014 VALDEZ DEBBIE 92607 CPT-4 ASSAY OF TROPONIN QUANT 12-30-2014 VALDEZ DEBBIE 79422 CPT-4 X-RAY EXAM SERIES ABDOMEN 12-30-2014 VALDEZ DEBBIE 34379 CPT-4 OCCULT BLOOD OTHER SOURCES 12-30-2014 VALDEZ DEBBIE J2405 CPT-4 ONDANSETRON HCL INJECTION 12-30-2014 VALDEZ DEBBIE 62330 CPT-4 ROUTINE VENIPUNCTURE 12-30-2014 VALDEZ DEBBIE 21057 CPT-4 ELECTROCARDIOGRAM TRACING 12-30-2014 VALDEZ DEBBIE 04432 CPT-4 EMERGENCY DEPT VISIT 12-30-2014 VALDEZ DEBBIE 94828 CPT-4 EMERGENCY DEPT VISIT 12-30-2014 VALDEZ DEBBIE 43511 CPT-4 THER/PROPH/DIAG INJ IV PUSH 12-30-2014 VALDEZ DEBBIE Functional status Functional Status Finding Observation Time Abdomen Appearance flat :00 Abdomen non-tender :00 [place] no :00 Quality sym/unlabored : Cough absent : Airway natural : Oxygen no :00 Temp >100.4 no : Temp <96.8 no :00 Chills with rigors no : HR > 90bpm no :00 Respirations > 20 no : Systolic <90 no :00 headache stiff neck no :00 Rapid Resp no :40 IV Site Location L AC :57 IV Type peripheral :57 IV Site Information discontinued :57 IV Site Start Attmpt 1 times :15 IV Site Rishi 20 :15 IV Site Appearance WNL :15 IV Site Color clear :15 IV Site Patent yes :15 Dressing Type occlusive :15 Nursing Note SL dc intact. Discharge instructions reviewed with pt-verbalize understanding. VS obtained, dc in good condition and ambulatory. :57 Vital signs Type Value Date Respiration Rate 24breaths per minute :48 Pulse 55beats per minute :48 Oxygen Saturation 100% :48 BP Systolic 95mmHg :48 BP Diastolic 46mmHg :48 Temperature 98F :48 Height 66inches :48 Weight 148.2LB :48 Social history Type Value Smoking Status FORMER SMOKER Treatment Plan No treatment plan text is available for this visit. Hospital discharge instructions Dismissal Condition good Disposition on DC home DC Inst/Educ Give yes Med/Side Effects Rev yes PNE Vac 2014 Flu Vac 2015 Tetanus Vac no
--- OUTSIDE RECORDS SUMMARY | 2016-11-22 15:32 | XMS REPORT | Clinical Summary ---
Author Author Admin, MARGE Organization [facility] Address Unknown Phone Unavailable Allergies, Adverse Reactions, [...] Patient Instruction HYDROXYZINE HCL 25 MG TAB 1 po qHS PRN Insomnia HYDROXYZINE HCL 05882090256 Active Capo Poe MD Active LISINOPRIL 10 MG TABS 1 tablet by mouth daily LISINOPRIL 39380241353 Active Capo Poe MD Active VIIBRYD STARTER PACK 10 & 20 MG ORAL KIT 1 po qd as directed VILAZODONE HCL 04319067612 Active Capo Poe MD Active LORTAB 7.5-325 MG ORAL TABS 1 po q 6 hr prn pain HYDROCODONE- ACETAMINOPHEN 89870850517 No Longer Active Capo Poe MD Active FLOMAX 0.4 MG CAPS Take one by mouth daily TAMSULOSIN HCL 60722560023 No Longer Active Capo Poe MD Active TRIAMCINOLONE ACETONIDE 0.1 % CREA Apply to affected areas TID for up to 2 weeks TRIAMCINOLONE ACETONIDE 80369767266 Active Capo Poe MD Active NICOTINE 14 MG/24HR TRANS PT24 Apply/Change q 24hr NICOTINE 80819247665 No Longer Active Capo Poe MD Active TRAMADOL HCL 50 MG TABS 1-2 tablets every 6 hours as needed for pain TRAMADOL HCL 88582116757 No Longer Active Capo Poe MD Active SERTRALINE HCL 100 MG ORAL TABS take 1 tab daily SERTRALINE HCL 49647868483 No Longer Active Capo Poe MD Active LISINOPRIL-HYDROCHLOROTHIAZIDE 10-12.5 MG TABS 0.5 tab by mouth daily LISINOPRIL-HYDROCHLOROTHIAZIDE 01460470596 No Longer Active Capo Poe MD Active OMEPRAZOLE 20 MG CPDR 1 tablet by mouth daily OMEPRAZOLE 61579486000 Active Capo Poe MD Active WELLBUTRIN SR 150 MG ORAL [id number] 1 po BID BUPROPION HCL 66531976908 No Longer Active Capo Poe MD Active MIRALAX PACK 1 po qd PRN Constipation POLYETHYLENE GLYCOL 3350 03286460085 Active Capo Poe MD Active DULERA 100-5 MCG/ACT AERO 2 puffs BID MOMETASONE FURO- FORMOTEROL FUM 66969852608 Active Capo Poe MD Active ZOLOFT 100 MG TABS 1 po daily SERTRALINE HCL 70831826476 No Longer Active Zoran Arzola MD Active FERROUS SULFATE 325 (65 FE) MG TABS 1 tablet by mouth daily FERROUS SULFATE 51043963508 No Longer Active Capo Poe MD Active HYDROCODONE-ACETAMINOPHEN 7.5-300 MG TABS take one every six hours HYDROCODONE-ACETAMINOPHEN 85401158078 No Longer Active Capo Poe MD Active TRIAMCINOLONE ACETONIDE 0.1 % OINT Apply to affected areas TID for up to 2 weeks TRIAMCINOLONE ACETONIDE 41756120444 No Longer Active Joe Vargas RN Active FERROUS SULFATE 325 (65 FE) MG TABS Take one by mouth daily FERROUS SULFATE 35489551254 No Longer Active Capo Poe MD Active TRIAMCINOLONE ACETONIDE 0.1 % OINT Apply to affected areas TID for up to 2 weeks TRIAMCINOLONE ACETONIDE 38146989056 No Longer Active Capo Poe MD Active ADULT ASPIRIN LOW STRENGTH 81 MG TBDP qd ASPIRIN 28286993277 Active Zoran Arzola MD Active ALEVE 220 MG TAB prn NAPROXEN SODIUM 56863037754 Active Capo Poe MD Active MACROBID 100 MG CAP 1 cap by mouth twice daily NITROFURANTOIN MONOHYD MACRO 21088313966 No Longer Active Dona Becker Active AZITHROMYCIN 250 MG TABS 2 po qd x 1 day, then 1 po qd x 4 days AZITHROMYCIN 64587724799 No Longer Active Capo Poe MD Active FISH OIL 500 MG CAPS by mouth twice a day OMEGA-3 FATTY ACIDS 37719868089 Active Capo Poe MD Active FLAXSEED OIL 1000 MG CAPS Take two by mouth daily FLAXSEED (LINSEED) 73138058717 Active Zoran Arzola MD Active RED YEAST RICE 600 MG CAPS Take two by mouth daily RED YEAST RICE EXTRACT 67078753379 Active Zoran Arzola MD Active MULTIVITAMINS CAPS Take one by mouth daily MULTIPLE VITAMIN 41953633765 Active Zoran Arzola MD Active ICAPS MV TABS 2 po daily MULTIPLE VITAMINS-MINERALS 23435104241 Active Jam Arnold DO Active MACROBID 100 MG CAP 1 cap by mouth twice daily MACROBID 100 MG CAP 3559970 NITROFURANTOIN MONOHYD MACRO Inactive FERROUS SULFATE 325 (65 FE) MG TABS Take one by mouth daily FERROUS SULFATE 325 (65 FE) MG TABS 751258 FERROUS SULFATE Inactive HYDROCODONE-ACETAMINOPHEN 7.5-300 MG TABS take one every six hours HYDROCODONE-ACETAMINOPHEN 7.5-300 MG TABS 060277 HYDROCODONE- ACETAMINOPHEN Inactive FERROUS SULFATE 325 (65 FE) MG TABS 1 tablet by mouth daily FERROUS SULFATE 325 (65 FE) MG TABS 114301 FERROUS SULFATE Inactive ZOLOFT 100 MG TABS 1 po daily ZOLOFT 100 MG TABS 948697 SERTRALINE HCL Inactive SERTRALINE HCL 100 MG ORAL TABS take 1 tab daily SERTRALINE HCL 100 MG ORAL TABS 328132 SERTRALINE HCL Inactive TRAMADOL HCL 50 MG TABS 1-2 tablets every 6 hours as needed for pain TRAMADOL HCL 50 MG TABS 233720 TRAMADOL HCL Inactive NICOTINE 14 MG/24HR TRANS PT24 Apply/Change q 24hr NICOTINE 14 MG/24HR TRANS PT24 323398 NICOTINE Inactive FLOMAX 0.4 MG CAPS Take one by mouth daily FLOMAX 0.4 MG CAPS 127487 TAMSULOSIN HCL Inactive LORTAB 7.5-325 MG ORAL TABS 1 po q 6 hr prn pain LORTAB 7.5- 325 MG ORAL TABS 051758 HYDROCODONE-ACETAMINOPHEN Inactive AZITHROMYCIN 250 MG TABS 2 po qd x 1 day, then 1 po qd x 4 days AZITHROMYCIN 250 MG TABS 6411011 AZITHROMYCIN Inactive TRIAMCINOLONE ACETONIDE 0.1 % OINT Apply to affected areas TID for up to 2 weeks TRIAMCINOLONE ACETONIDE 0.1 % OINT 4856698 TRIAMCINOLONE ACETONIDE Inactive TRIAMCINOLONE ACETONIDE 0.1 % OINT Apply to affected areas TID for up to 2 weeks TRIAMCINOLONE ACETONIDE 0.1 % OINT 3106290 TRIAMCINOLONE ACETONIDE Inactive Advance Directives Directive Description Start Date PERMISSION TO SHARE Immunizations Vaccine Administration Date Value Standard Description pneumococcal immunization administered Pneumovax 23 [CVX33] pneumococcal polysaccharide vaccine, 23 valent Vital Signs Date Name Value Unit Range Description blood pressure, diastolic - 8462-4 77 mm[Hg] [...] Panel - Chemistry sodium, serum 139 mmol/L 022-363 0515/07/30 potassium, serum 4.7 mmol/L 3.5-5.2 chloride, serum 101 mmol/L 98-107 carbon dioxide, venous blood 34.8 mmol/L 21.0-32.0 blood glucose 124 mg/dL 65-110 calcium, serum 8.9 mg/dL 8.5-10.1 urea nitrogen, blood 18 mg/dL 7-18 creatinine, serum 1.40 mg/dL 0.60-1.30 Lab Report: Comp. Metabolic Panel, Lipid Panel, HGBA1C, CBC, MICROALB/CR ... - Chemistry sodium, serum 138 mmol/L 917-541 8267/03/18 carbon dioxide, venous blood 25.5 mmol/L 21.0-32.0 potassium, serum 4.6 mmol/L 3.5-5.2 chloride, serum 101 mmol/L 98-107 blood glucose 129 mg/dL 65-110 urea nitrogen, blood 20 mg/dL 7-18 creatinine, serum 1.87 mg/dL 0.55-1.30 alanine aminotransferase (SGPT), serum 26 U/L 12-78 aspartate aminotransferase (SGOT), serum 20 U/L 15-37 calcium, serum 8.8 mg/dL 8.5-10.1 bilirubin, serum, total 0.40 mg/dL 0.00-1.00 cholesterol, serum 251 mg/dL 010-565 2291/03/18 triglyceride, serum, fasting 135 mg/dL 30-200 HDL [...] negative Encounters Code Encounter Date Provider Facility CPT-67670 Level 4 Est. Patient 13:44:30 CDT Capo Poe MD [facility] CPT-51868 Level 3 Est. Patient 14:59:32 [employer] [employer] Capo Poe MD [facility] CPT-65475 Level 4 Est. Patient 10:46:15 [place] [employer] Capo Poe MD [facility] CPT-93932 Level 3 Est. Patient 11:00:53 CDT Capo Poe MD [facility] CPT-93912 Level 3 Est. Patient 09:39:35 CDT Capo Poe MD [facility] CPT-26581 Level 3 Est. Patient 09:27:01 CDT Capo Poe MD [facility] CPT-43783 Level 3 Est. Patient 18:37:08 CDT Zoran Arzola MD [facility] CPT-91904 Level 3 Est. Patient 15:00:28 CDT Capo Poe MD [facility] CPT-89593 Level 3 Est. Patient 08:20:19 CDT Zoran Arzola MD [facility] CPT-91987 Level 3 Est. Patient 09:22:21 CDT Capo Poe MD [facility] CPT-06365 Level 4 Est. Patient 10:21:30 [place] Capo Poe MD [facility] CPT-96041 Level 3 Est. Patient 17:08:51 [place] Zoran Arzola MD [facility] CPT-28631 Level 4 Est. Patient 09:44:42 CDT Capo Poe MD [facility] CPT-15035 Level 4 Est. Patient 10:39:29 CDT Capo Poe MD [facility] CPT-45934 Level 3 Est. Patient 17:45:23 CDT Zoran Arzola MD [facility] CPT-35676 Level 4 Est. Patient 08:50:44 CDT Capo Poe MD [facility] CPT-65268 Level 3 Est. Patient 10:39:51 [place] Capo Poe MD [facility] CPT-33276 Level 4 Est. Patient 09:44:24 [place] Capo Poe MD [facility] CPT-08148 Level 3 Est. Patient 14:48:42 [place] Zoran Arzola MD [facility] CPT-44363 Level 4 Est. Patient 10:24:02 CDT Capo Poe MD [facility] CPT-54118 Level 3 Est. Patient 15:42:00 CDT Maya DUKES [facility] CPT-33869 Level 4 Est. Patient 13:34:15 CDT Capo Poe MD [facility] CPT-89667 Level 3 Est. Patient 15:32:10 [place] Zoran Arzola MD [facility] CPT-67668 Level 3 New Patient 17:17:19 [place] Zoran Arzola MD [facility] CPT-21082 Level 4 Est. Patient 10:25:01 [place] Capo Poe MD [facility] CPT-27687 Level 3 Est. Patient 10:10:42 CDT Zoran Arzola MD [facility] CPT-89111 Level 3 Est. Patient 22:30:02 CDT Zoran Arzola MD [facility] CPT-56032 Level 4 Est. Patient 09:54:20 CDT Capo Poe MD [facility] CPT-87367 Level 3 Est. Patient 10:48:30 CDT Capo Poe MD [facility] CPT-09637 Level 3 Est. Patient 11:24:45 CDT Capo Poe MD [facility] CPT-65623 Level 3 Est. Patient 15:23:48 [place] Capo Poe MD [facility] CPT-28559 Level 3 Est. Patient 15:10:03 [place] Capo Poe MD [facility] CPT-97163 Level 3 Est. Patient 16:18:40 CDT Zoran Arzola [facility] Procedures Code Procedure Name Date Entry Date Standard Description CPT-33787 Venipuncture Draw Fee 09:46:29 CDT CPT-79359 Venipuncture Draw Fee 14:30:06 CDT CPT-41970 Venipuncture Draw Fee 10:58:22 CDT CPT-96195 Abd single AP View 08:32:00 CDT CPT-15136 Postop F/U Visit 21:13:08 CDT CPT-78496 Abd single AP View 15:50:24 CDT CPT-83879 Cystoscopy W/rem FB 15:21:28 CDT CPT-32469 Abd single AP View 14:06:45 CDT CPT-63869 Postop F/U Visit 09:48:32 CDT CPT-87517 Abd single AP View 13:58:26 CDT CPT-57183 Hip comp min 2V 10:27:18 [place] [employer] CPT-41605 Urine Dip (Floor Use Only) 13:41:01 [employer] [employer] CPT-04691 Postop F/U Visit 11:17:48 CDT CPT-LR Lesion Removal 11:50:22 CDT CPT-OV Office Visit 11:50:22 CDT CPT-12757 Pneumovax 23 10:55:48 CDT CPT-94169 Administration single or combination vaccine inc oral 10 :55:48 CDT CPT-Cryo Cryotherapy 11:18:11 CDT CPT-OV Office Visit 11:18:11 CDT CPT-99464 LS spine AP and Lat 09:05:22 CDT CPT-06536 Bladder Scan 15:42:00 CDT CPT-98332 Cystoscopy 15:42:00 CDT CPT-OV Office Visit 16:37:19 [place] [employer] CPT-21837 Bladder Scan 15:32:10 [place] CPT-82098 Cystoscopy 15:32:10 [place] CPT-63016 Abd single AP View 14:05:59 [place] [employer] CPT-39246 Pill cam small bowel 09:48:39 [place] [employer] CPT-61602 Urine Dip (Floor Use Only) 17:17:19 [place] [employer] CPT-37045 Bladder Scan 17:17:19 [place] [employer] CPT-OV Office Visit 11:50:26 [employer] [employer] CPT-76756 Bladder Scan 10:10:42 CDT CPT-35746 Venipuncture Draw Fee 09:14:04 CDT CPT-71468 Chest 2V Frontal and Lat 10:10:49 CDT CPT-48199 LS spine comp w obliq 11:50:11 CDT CPT-24308 Venipuncture Draw Fee 08:52:57 [place] CPT-08205 Cystoscopy W/rem FB 18:37:28 CDT CPT-37085 Abd single AP View 16:18:40 CDT CPT-83731 Abd compl w upright 17:30:59 CDT
--- OUTSIDE RECORDS SUMMARY | 2016-11-22 15:33 | XMS REPORT | Clinical Summary ---
Author Author Admin, QIE Organization [employer] Address Unknown Phone Unavailable Allergies, Adverse Reactions, [...] collapse Iron deficiency 280.9 Active Jasmin Dixon [facility] Iron deficiency anemia, unspecified COPD, acute exacerbation 491.21 Active Capo Poe MD Obstructive chronic bronchitis with (acute) exacerbation NAUSEA AND VOMITING ICD-787.01 Inactive Capo Poe [...] Inactive Capo Poe MD Chest pain ICD-786.50 Clyde Poe MD Prostate cancer screening ICD-V76.44 Clyde Poe MD Pruritic rash ICD-698.8 Inactive Capo Poe MD Elevated creatinine ICD-790.4 Clyde Poe MD Medication List Medication Instructions Start Date Stop Date Generic Name NDC Status Provider Patient Instruction AZITHROMYCIN 250 MG ORAL TABS 2 po qd x 1, then 1 po qd x 4 AZITHROMYCIN 31935512071 Active Capo Poe MD Active PREDNISONE 20 MG ORAL TABS 2 po qd x 5 days PREDNISONE 46778331764 Active Capo Poe MD Active CARAFATE 1 GM ORAL TABS 1 tid SUCRALFATE 45085121533 Active Capo Poe MD Active RANITIDINE HCL 150 MG ORAL TABS 1 bid RANITIDINE HCL 68381765966 Active Capo Poe MD Active MULTIVITAMINS CAPS Take one by mouth daily MULTIPLE VITAMIN 40392354782 No Longer Active Capo Poe MD Active LISINOPRIL 10 MG TABS 1 tablet by mouth daily LISINOPRIL 37203644312 No Longer Active Capo Poe MD Active EQL IRON SUPPLEMENT THERAPY 325 MG ORAL TABS 1 tab po twice daily FERROUS SULFATE 31318279244 Active Jasmin Dixon RMA Active D ORAL TABS 2000 iu weekly D ORAL TABS Active Capo Poe MD Active CITALOPRAM HYDROBROMIDE 20 MG TABS 1 tablet by mouth daily CITALOPRAM HYDROBROMIDE 16841587740 Active Capo Poe MD Active CLARITIN 5 MG ORAL CHEW 1 tab po q day LORATADINE 37882980154 Active Felisa Shelley [place] Active VIIBRYD STARTER PACK 10 & 20 MG ORAL KIT 1 po qd as directed 2015 VILAZODONE HCL 12633148751 No Longer Active Felisa Daphney RMA Active HYDROXYZINE HCL 25 MG TAB 1 po qHS PRN Insomnia HYDROXYZINE HCL 84864758571 Active Capo Poe MD Active LORTAB 7.5-325 MG ORAL TABS 1 po q 6 hr prn pain HYDROCODONE- ACETAMINOPHEN 41378035063 No Longer Active Capo Poe MD Active FLOMAX 0.4 MG CAPS Take one by mouth daily TAMSULOSIN HCL 46967713279 No Longer Active Capo Poe MD Active TRIAMCINOLONE ACETONIDE 0.1 % CREA Apply to affected areas TID for up to 2 weeks TRIAMCINOLONE ACETONIDE 54888792694 Active Capo Poe MD Active NICOTINE 14 MG/24HR TRANS PT24 Apply/Change q 24hr NICOTINE 84899045768 No Longer Active Capo Poe MD Active TRAMADOL HCL 50 MG TABS 1-2 tablets every 6 hours as needed for pain TRAMADOL HCL 44412220191 No Longer Active Capo Poe MD Active SERTRALINE HCL 100 MG ORAL TABS take 1 tab daily SERTRALINE HCL 79952817456 No Longer Active Capo Poe MD Active LISINOPRIL-HYDROCHLOROTHIAZIDE 10-12.5 MG TABS 0.5 tab by mouth daily LISINOPRIL-HYDROCHLOROTHIAZIDE 64035636334 No Longer Active Capo Poe MD Active OMEPRAZOLE 20 MG CPDR 1 tablet by mouth daily OMEPRAZOLE 43150816551 Active Capo Poe MD Active WELLBUTRIN SR 150 MG ORAL [id number] 1 po BID BUPROPION HCL 90376375511 No Longer Active Capo Poe MD Active MIRALAX PACK 1 po qd PRN Constipation POLYETHYLENE GLYCOL 3350 90563025380 Active Capo Poe MD Active DULERA 100-5 MCG/ACT AERO 2 puffs BID MOMETASONE FURO- FORMOTEROL FUM 49485066342 Active Capo Poe MD Active ZOLOFT 100 MG TABS 1 po daily SERTRALINE HCL 75246805647 No Longer Active Zoran Arzola MD Active FERROUS SULFATE 325 (65 FE) MG TABS 1 tablet by mouth daily FERROUS SULFATE 92919521035 No Longer Active Capo Poe MD Active HYDROCODONE-ACETAMINOPHEN 7.5-300 MG TABS take one every six hours HYDROCODONE-ACETAMINOPHEN 82742466654 No Longer Active Capo Poe MD Active TRIAMCINOLONE ACETONIDE 0.1 % OINT Apply to affected areas TID for up to 2 weeks TRIAMCINOLONE ACETONIDE 64621054285 No Longer Active Joe Vargas RN Active FERROUS SULFATE 325 (65 FE) MG TABS Take one by mouth daily FERROUS SULFATE 18175262452 No Longer Active Capo Poe MD Active TRIAMCINOLONE ACETONIDE 0.1 % OINT Apply to affected areas TID for up to 2 weeks TRIAMCINOLONE ACETONIDE 89224382389 No Longer Active Capo Poe MD Active ADULT ASPIRIN LOW STRENGTH 81 MG TBDP qd ASPIRIN 75351595660 Active Zoran Arzola MD Active ALEVE 220 MG TAB prn NAPROXEN SODIUM 83961941652 Active Capo Poe MD Active MACROBID 100 MG CAP 1 cap by mouth twice daily NITROFURANTOIN MONOHYD MACRO 89062165728 No Longer Active Donaarmando Becker Active AZITHROMYCIN 250 MG TABS 2 po qd x 1 day, then 1 po qd x 4 days AZITHROMYCIN 83947696568 No Longer Active Capo Poe MD Active FISH OIL 500 MG CAPS by mouth twice a day OMEGA-3 FATTY ACIDS 62446749060 Active Capo Poe MD Active FLAXSEED OIL 1000 MG CAPS Take two by mouth daily FLAXSEED (LINSEED) 30143298464 Active Zoran Arzola MD Active RED YEAST RICE 600 MG CAPS Take two by mouth daily RED YEAST RICE EXTRACT 78630645556 Active Zoran Arzola MD Active ICAPS MV TABS 2 po daily MULTIPLE VITAMINS-MINERALS 99229064649 Active Jam Arnold DO Active MACROBID 100 MG CAP 1 cap by mouth twice daily MACROBID 100 MG CAP 0969341 NITROFURANTOIN MONOHYD MACRO Inactive FERROUS SULFATE 325 (65 FE) MG TABS Take one by mouth daily FERROUS SULFATE 325 (65 FE) MG TABS 179991 FERROUS SULFATE Inactive HYDROCODONE-ACETAMINOPHEN 7.5-300 MG TABS take one every six hours HYDROCODONE-ACETAMINOPHEN 7.5-300 MG TABS 763284 HYDROCODONE- ACETAMINOPHEN Inactive FERROUS SULFATE 325 (65 FE) MG TABS 1 tablet by mouth daily FERROUS SULFATE 325 (65 FE) MG TABS 979003 FERROUS SULFATE Inactive ZOLOFT 100 MG TABS 1 po daily ZOLOFT 100 MG TABS 012284 SERTRALINE HCL Inactive SERTRALINE HCL 100 MG ORAL TABS take 1 tab daily SERTRALINE HCL 100 MG ORAL TABS 542275 SERTRALINE HCL Inactive TRAMADOL HCL 50 MG TABS 1-2 tablets every 6 hours as needed for pain TRAMADOL HCL 50 MG TABS 255566 TRAMADOL HCL Inactive NICOTINE 14 MG/24HR TRANS PT24 Apply/Change q 24hr NICOTINE 14 MG/24HR TRANS PT24 19790323 NICOTINE Inactive FLOMAX 0.4 MG CAPS Take one by mouth daily FLOMAX 0.4 MG CAPS 330787 TAMSULOSIN HCL Inactive LORTAB 7.5-325 MG ORAL TABS 1 po q 6 hr prn pain LORTAB 7.5- 325 MG ORAL TABS 600034 HYDROCODONE-ACETAMINOPHEN Inactive VIIBRYD STARTER PACK 10 & 20 MG ORAL KIT 1 po qd as directed 2015 VIIBRYD STARTER PACK 10 & 20 MG ORAL KIT VILAZODONE HCL Inactive LISINOPRIL 10 MG TABS 1 tablet by mouth daily LISINOPRIL 10 MG TABS 921586 LISINOPRIL Inactive MULTIVITAMINS CAPS Take one by mouth daily MULTIVITAMINS CAPS MULTIPLE VITAMIN Inactive AZITHROMYCIN 250 MG TABS 2 po qd x 1 day, then 1 po qd x 4 days AZITHROMYCIN 250 MG TABS 0069070 AZITHROMYCIN Inactive TRIAMCINOLONE ACETONIDE 0.1 % OINT Apply to affected areas TID for up to 2 weeks TRIAMCINOLONE ACETONIDE 0.1 % OINT 8061175 TRIAMCINOLONE ACETONIDE Inactive TRIAMCINOLONE ACETONIDE 0.1 % OINT Apply to affected areas TID for up to 2 weeks TRIAMCINOLONE ACETONIDE 0.1 % OINT 2640789 TRIAMCINOLONE ACETONIDE Inactive Advance Directives Directive Description Start Date PERMISSION TO SHARE DISCUSSED WITH PATIENT -- NO DECISION MADE Immunizations Vaccine Administration Date Value Standard Description pneumococcal immunization administered Pneumovax 23 [CVX33] pneumococcal polysaccharide vaccine, 23 valent Vital Signs Date Name Value Unit Range Description blood pressure, diastolic 76 mm[Hg] BP austin [...] temperature weight E&M 144.5 [lb_av] Weight Measured blood pressure, diastolic 68 mm[Hg] BP austin blood pressure, systolic 147 mm[Hg] BP sys pulse rate E&M 69 /min Heart rate temperature E&M 98 [degF] Body temperature weight E&M 147.5 [lb_av] Weight Measured Diagnostic Results Date Name Value Unit Range Description Chart Maintenance: Hemoccult added to flow sheet - Chemistry occult blood, stool (E&M) Positive Lab Report: CBC W/DIFF, Comp. Metabolic Panel, Thyroid Stimulating Hormo ... - Chemistry sodium, serum 141 mmol/L 294-768 9835/01/27 carbon dioxide, venous blood 29.7 mmol/L 21.0-32.0 [...] % 11.0-15.0 platelet count 214 THOUSAND/UL 10*3/mm3 439-985 6901/03/31 mean platelet volume 8.4 fL 7.5-12.5 Encounters Code Encounter Date Provider Facility CPT-55198 Level 3 Est. Patient 09:44:06 CDT Capo Poe MD [facility] CPT-65331 Level 4 Est. Patient 09:26:11 ASSISTANT CUSTOMER SERVICE MANAGER Capo Poe MD [facility] CPT-37374 Level 4 Est. Patient 08:53:08 CDT Capo Poe MD [facility] CPT-87524 Level 4 Est. Patient 10:22:57 CDT Capo Poe MD [facility] CPT-40433 Level 4 Est. Patient 13:44:30 CDT Capo Poe MD [facility] CPT-38133 Level 3 Est. Patient 14:59:32 ASSISTANT CUSTOMER SERVICE MANAGER Capo Poe MD [facility] CPT-75438 Level 4 Est. Patient 10:46:15 ASSISTANT CUSTOMER SERVICE MANAGER Capo Poe MD [facility] CPT-58981 Level 3 Est. Patient 11:00:53 CDT Capo Poe MD [facility] CPT-59974 Level 3 Est. Patient 09:39:35 CDT Capo Poe MD [facility] CPT-16006 Level 3 Est. Patient 09:27:01 CDT Capo Poe MD [facility] CPT-10827 Level 3 Est. Patient 18:37:08 CDT Zorna Arzola MD [facility] CPT-40233 Level 3 Est. Patient 15:00:28 CDT Capo Poe MD [facility] CPT-58066 Level 3 Est. Patient 08:20:19 CDT Zoran Arzola MD [facility] CPT-98363 Level 3 Est. Patient 09:22:21 CDT Capo Poe MD [facility] CPT-28106 Level 4 Est. Patient 10:21:30 ASSISTANT CUSTOMER SERVICE MANAGER Capo Poe MD [facility] CPT-93893 Level 3 Est. Patient 17:08:51 ASSISTANT CUSTOMER SERVICE MANAGER Zoran Arzola MD [facility] CPT-37384 Level 4 Est. Patient 09:44:42 CDT Capo Poe MD [facility] CPT-25894 Level 4 Est. Patient 10:39:29 CDT Capo Poe MD [facility] CPT-79232 Level 3 Est. Patient 17:45:23 CDT Zoran Arzola MD [facility] CPT-75991 Level 4 Est. Patient 08:50:44 CDT Capo Poe MD [facility] CPT-52384 Level 3 Est. Patient 10:39:51 ASSISTANT CUSTOMER SERVICE MANAGER Capo Poe MD [facility] CPT-21218 Level 4 Est. Patient 09:44:24 ASSISTANT CUSTOMER SERVICE MANAGER Capo Poe MD [facility] CPT-78079 Level 3 Est. Patient 14:48:42 ASSISTANT CUSTOMER SERVICE MANAGER Zoran Arzola MD [facility] CPT-69732 Level 4 Est. Patient 10:24:02 CDT Capo Poe MD [facility] CPT-19991 Level 3 Est. Patient 15:42:00 CDT Maya DUKES [facility] CPT-52478 Level 4 Est. Patient 13:34:15 CDT Capo Poe MD [facility] CPT-32766 Level 3 Est. Patient 15:32:10 ASSISTANT CUSTOMER SERVICE MANAGER Zoran Arzola MD [facility] CPT-47672 Level 3 New Patient 17:17:19 ASSISTANT CUSTOMER SERVICE MANAGER Zoran Arzola MD [facility] CPT-43977 Level 4 Est. Patient 10:25:01 ASSISTANT CUSTOMER SERVICE MANAGER Capo Poe MD [facility] CPT-10855 Level 3 Est. Patient 10:10:42 CDT Zoran Arzola MD [facility] CPT-35117 Level 3 Est. Patient 22:30:02 CDT Zoran Arzola MD [facility] CPT-76169 Level 4 Est. Patient 09:54:20 CDT Capo Poe MD [facility] CPT-05697 Level 3 Est. Patient 10:48:30 CDT Capo Poe MD [facility] CPT-76650 Level 3 Est. Patient 11:24:45 CDT Capo Poe MD [facility] CPT-36027 Level 3 Est. Patient 15:23:48 ASSISTANT CUSTOMER SERVICE MANAGER Capo Poe MD [facility] CPT-68943 Level 3 Est. Patient 15:10:03 ASSISTANT CUSTOMER SERVICE MANAGER Capo Poe MD [facility] CPT-10432 Level 3 Est. Patient 16:18:40 CDT Zoran Arzola MD [facility] Procedures Code Procedure Name Date Entry Date Standard Description CPT-79975 Hemoccult IFOBT - LAB USE ONLY 14:11:43 ASSISTANT CUSTOMER SERVICE MANAGER CPT-23048 TPSA - LAB USE ONLY 10:37:52 ASSISTANT CUSTOMER SERVICE MANAGER CPT-26317 TSH - LAB USE ONLY 10:37:51 ASSISTANT CUSTOMER SERVICE MANAGER CPT-73603 CMP - LAB USE ONLY 10:37:51 ASSISTANT CUSTOMER SERVICE MANAGER CPT-29689 CBC with Diff - LAB USE ONLY 10:37:51 ASSISTANT CUSTOMER SERVICE MANAGER CPT-63477 Venipuncture Draw Fee 10:37:51 ASSISTANT CUSTOMER SERVICE MANAGER CPT-000 Give Pneumovax 10:39:30 CDT CPT-05649 Venipuncture Draw Fee 09:32:34 CDT CPT-G0438 Initial Annual Wellness Exam 10:24:35 CDT CPT-10139 Venipuncture Draw Fee 09:46:29 CDT CPT-54333 Venipuncture Draw Fee 14:30:06 CDT CPT-97313 Venipuncture Draw Fee 10:58:22 CDT CPT-86231 Abd single AP View 08:32:00 CDT CPT-68901 Postop F/U Visit 21:13:08 CDT CPT-24267 Abd single AP View 15:50:24 CDT CPT-07610 Cystoscopy W/rem FB 15:21:28 CDT CPT-85713 Abd single AP View 14:06:45 CDT CPT-19699 Postop F/U Visit 09:48:32 CDT CPT-49486 Abd single AP View 13:58:26 CDT CPT-14048 Hip comp min 2V 10:27:18 ASSISTANT CUSTOMER SERVICE MANAGER CPT-73829 Urine Dip (Floor Use Only) 13:41:01 ASSISTANT CUSTOMER SERVICE MANAGER CPT-61217 Postop F/U Visit 11:17:48 CDT CPT-LR Lesion Removal 11:50:22 CDT CPT-OV Office Visit 11:50:22 CDT CPT-24235 Pneumovax 23 10:55:48 CDT CPT-98522 Administration single or combination vaccine inc oral 10 :55:48 CDT CPT-Cryo Cryotherapy 11:18:11 CDT CPT-OV Office Visit 11:18:11 CDT CPT-38627 LS spine AP and Lat 09:05:22 CDT CPT-84015 Bladder Scan 15:42:00 CDT CPT-47620 Cystoscopy 15:42:00 CDT CPT-OV Office Visit 16:37:19 ASSISTANT CUSTOMER SERVICE MANAGER CPT-02894 Bladder Scan 15:32:10 ASSISTANT CUSTOMER SERVICE MANAGER CPT-17076 Cystoscopy 15:32:10 ASSISTANT CUSTOMER SERVICE MANAGER CPT-78453 Abd single AP View 14:05:59 ASSISTANT CUSTOMER SERVICE MANAGER CPT-09975 Pill cam small bowel 09:48:39 ASSISTANT CUSTOMER SERVICE MANAGER CPT-32810 Urine Dip (Floor Use Only) 17:17:19 ASSISTANT CUSTOMER SERVICE MANAGER CPT-17411 Bladder Scan 17:17:19 ASSISTANT CUSTOMER SERVICE MANAGER CPT-OV Office Visit 11:50:26 ASSISTANT CUSTOMER SERVICE MANAGER CPT-35577 Bladder Scan 10:10:42 CDT CPT-74775 Venipuncture Draw Fee 09:14:04 CDT CPT-98978 Chest 2V Frontal and Lat 10:10:49 CDT CPT-57038 LS spine comp w obliq 11:50:11 CDT CPT-32878 Venipuncture Draw Fee 08:52:57 ASSISTANT CUSTOMER SERVICE MANAGER CPT-48856 Cystoscopy W/rem FB 18:37:28 CDT CPT-86925 Abd single AP View 16:18:40 CDT CPT-99025 Abd compl w upright 17:30:59 CDT
--- OUTSIDE RECORDS SUMMARY | 2016-11-22 15:33 | XMS REPORT ---
Author Author BROOKLYNNNouveaux Riche [facility] Medical Staff Organization [facility] Address [address] [place] [address] Phone [phone] Care Team Providers Care Health Informatics Advisor Name Role Phone CAPO MENJIVAR MD PP [phone] CAPO MENJIVAR MD, PP [phone] Summary purpose TRANSITION OF CARE AUTO GENERATION Chief Complaint and Reason for Visit Admit Diagnosis 1 CHEST PAIN NOS Problem list No authorized problems tracked for continuity of care are available for this visit. Encounters The following conditions tracked for encounter diagnoses were recorded for this visit: Finding or Diagnosis Status Certainty Chronicity Onset *CHEST PAIN Active Medications Discharge Medications Status Medication Directions Current omeprazole 20 mg tablet,delayed release 20 mg oral Daily Allergies, adverse reactions, alerts Allergen Category Ingredient Status Reaction Severity Onset Dhediov-Zfn-Tiu Reductase Inhibitors Drug Allergy Tejvmao-Jfw-Qut Reductase Inhibitors Confirmed or Verified BACK PAIN morphine Drug Allergy morphine Confirmed or Verified Swelling Mild Adult Nitrofurantoin Drug Allergy Nitrofurantoin Confirmed or Verified Immunizations No immunizations recorded for this patient visit Relevant diagnostic tests and/or laboratory data RESULTS Chemistry [id number]:57:00 Result Normal Range Units Sodium 141 134-145 mEq/l Potassium 4.2 3.5-5.1 mEq/l Chloride 104 98-107 mEq/l CO2 27.7 22-28 mEq/l Glucose 92 70-105 mg/dl BUN H 27 7-18 mg/dl Creatinine H 1.60 0.6-1.3 mg/dl Calcium 8.7 8.4-10.2 mg/dl TP - Total Protein 7.2 6.0-8.3 g/dl Albumin 3.7 3.5-5 g/dl Bilirubin - Total 0.2 0.1-1.0 mg/dl AST 20 10-42 IU/L ALT 28 12-65 IU/L ALP 104 39-107 IU/L Osmolality 286.0 280-300 mOsm/L Albumin/Globulin Ratio 1.1 0-8 Anion GAP 9.3 8-16 BUN/Creatinine Ratio 16.9 10-20 BNP- Brain Natriuretic Peptide 194 0-900 pg/ml Estimated GFR L 42 >=60 mL/min/1.7 :52:00 Result Normal Range Units Magnesium 2.1 1.7-2.8 mg/dl Hematology :57:00 Result Normal Range Units WBC 9.5 4.8-10.8 103/uL RBC L 4.0 4.7-6.1 106/uL HGB L 12.1 13.0-18.0 g/dl HCT L 38.2 41.9-52.0 % MCV H 96.5 80-94 FL MCH 30.6 27-31 pg MCHC L 31.7 33-37 g/dl RDW 13.9 11.5-15.5 % PLT 254 130-400 103/uL MPV 9.3 7.3-10.4 FL Neutro % 57.6 40-70 % Lymph % 29.6 20-40 % [place] % 8.0 0-10.0 % Eos % 3.3 0-7.0 % Baso % 1.2 0-2 % Neutro # 5.5 1.5-7.5 103/uL Lymph # 2.8 0.9-4.0 103/uL [place] # 0.8 0-0.8 103/uL Eos # 0.3 0-0.6 103/uL Baso # 0.1 0-0.1 103/uL Cardiac [id number]:10:00 Result Normal Range Units CK 101 39-308 IU/L CKMB 1.3 0-3.6 ng/ml Patient samples may contain heterophilic antibodies that could react with immunoassays to give falsely elevated or depressed results. This Dimension assay has been designed to minimize interference from heterophilic antibodies. Nevertheless, complete elimination of this interference from all patient specimens cannot be guaranteed. A test result that is inconsistent with the clinical picture and patient history should be interpreted with caution. Troponin I < 0.04 0.0-0.4 ng/ml Patient [...] patient history should be interpreted with caution. [id number]:10:00 Result Normal Range Units Troponin I < [...] patient history should be interpreted with caution. [id number]:57:00 Result Normal Range Units CK 143 39-308 IU/L CKMB 2.3 0-3.6 ng/ml Patient samples may contain heterophilic antibodies that could react with immunoassays to give falsely elevated or depressed results. This Dimension assay has been designed to minimize interference from heterophilic antibodies. Nevertheless, complete elimination of this interference from all patient specimens cannot be guaranteed. A test result that is inconsistent with the clinical picture and patient history should be interpreted with caution. Troponin I < 0.04 0.0-0.4 ng/ml Patient [...] should be interpreted with caution. Radiology Results [id number]:18:00 Chest XRay - Port - 1 View PACs Image DATE OF EXAM: 2014 RAD 0292-CHEST 1 VIEW PORT : RADIOLOGY REPORT DATE OF SERVICE:10/15/14 HISTORY:Patient has chest pain. PORTABLE 1 VIEW CHEST 2020 HOURS Heart is enlarged mildly.There is enlarged hiatal hernia behind the heart.Pulmonary vascularity is normal.Lungs are clear.No effusion is seen. IMPRESSION:Cardiomegaly without congestive heart failure.No pneumonia.Very large hiatal hernia behind the heart. DO FANG Salas/qing 10/15/2014 20:52:00 / 10/16/2014 00:24:02 cc:Dr. Capo Menjivar This document has been electronically Signed by: On: DATE OF EXAM: 2014 RAD 0292-CHEST 1 VIEW PORT : RADIOLOGY REPORT DATE OF SERVICE:10/15/14 HISTORY:Patient has chest pain. PORTABLE 1 VIEW CHEST 2020 HOURS Heart is enlarged mildly.There is enlarged hiatal hernia behind the heart.Pulmonary vascularity is normal.Lungs are clear.No effusion is seen. IMPRESSION:Cardiomegaly without congestive heart failure.No pneumonia.Very large hiatal hernia behind the heart. Valdez Kaur DO MW/pb 10/15/2014 20:52:00 / 10/16/2014 00:24:02 cc:Dr. Capo Menjivar This document has been electronically Signed by: VALDEZ KAUR DO On: 20149:18A CHEST PAIN RULE OUT [place] Result Amended on 2014-10-16 at 09:18:29. Previous status was MT. CHEST PAIN RULE OUT [place] [id number]:57:00 Result Normal Range Units MPV 9.3 7.3-10.4 FL History of procedures Procedure Code Code Type Description Date Performed Performing Physician 50179 CPT-4 COMPLETE CBC W/AUTO DIFF WBC 10-15-2014 SIOBHAN YANG 38572 CPT-4 COMPREHEN METABOLIC PANEL 10-15-2014 SIOBHAN YANG 09144 CPT-4 ASSAY OF CK (CPK) 10-15-2014 SIOBHAN YANG 09602 CPT-4 ASSAY OF TROPONIN, QUANT 10-15-2014 SIOBHAN YANG 87366 CPT-4 CREATINE, MB FRACTION 10-15-2014 SIOBHAN YANG 96481 CPT-4 NATRIURETIC PEPTIDE 10-15-2014 SIOBHAN YANG 78022 CPT-4 CHEST X-RAY 10-15-2014 SIOBHAN YANG 00136 CPT-4 ASSAY OF MAGNESIUM 10-15-2014 SIOBHAN YANG 58352 CPT-4 ROUTINE VENIPUNCTURE 10-15-2014 VALDEZ MEEK 26519 CPT-4 ELECTROCARDIOGRAM, TRACING 10-15-2014 SIOBHAN YANG 91123 CPT-4 ELECTROCARDIOGRAM, TRACING 10-16-2014 SIOBHAN YANG 96949 CPT-4 ASSAY OF CK (CPK) 10-16-2014 SIOBHAN YANG 12169 CPT-4 CREATINE, MB FRACTION 10-16-2014 SIOBHAN YANG 36071 CPT-4 ASSAY OF TROPONIN, QUANT 10-16-2014 SIOBHAN YANG 66860 CPT-4 ASSAY OF TROPONIN, QUANT 10-16-2014 SIOBHAN YANG 87055 CPT-4 ROUTINE VENIPUNCTURE 10-16-2014 VALDEZ MEEK 35689 CPT-4 ROUTINE VENIPUNCTURE 10-16-2014 VALDEZ MEEK G0378 CPT-4 HOSPITAL OBSERVATION PER HR 10-15-2014 SIOBHAN CELIA G0378 CPT-4 HOSPITAL OBSERVATION PER HR 10-15-2014 SIOBHAN CELIA G0378 CPT-4 HOSPITAL OBSERVATION PER HR 10-16-2014 SIOBHAN YANG 49685 CPT-4 EMERGENCY DEPT VISIT 10-15-2014 VALDEZ LYNNNER 60221 CPT-4 EMERGENCY DEPT VISIT 10-15-2014 VALDEZ LYNNNER 46860 CPT-4 ELECTROCARDIOGRAM REPORT 10-19-2014 VALDEZ SANCHEZT Functional status Functional Status Finding Observation Time Hearing Prob Loc none :35 Vision Problems yes :35 Vision Correct Dev glasses :35 Range of Motion full :44 Muscle Strength RUE 5 ROM full resist :44 Muscle Strength RLE 5 ROM full resist :44 Muscle Strength LUE 5 ROM full resist :44 Muscle Strength LLE 5 ROM full resist :44 Transfers independent :44 Ambulation in room :44 Balance steady :44 Bathing Assistance none :35 Eating Assistance none :35 Dressing Assistance none :35 Toileting Assistance none :35 Transfer Assistance none :35 Decline Slf Care/Mob no :35 Phys Cond Stable yes :35 Nutrition normal :44 Diet heart healthy :44 Oral Cavity moist and intact :44 Teeth dentures :44 Dental Hygiene good :44 Abdomen Appearance flat :44 Abdomen soft :44 Bowel Sounds present :44 NG Tube no :44 Feeding Tube none :44 Barnes no :44 Cont Bladder Irr no :44 Ostomy no :44 Stool normal :44 Urination normal :44 Quality sym/unlabored :44 Cough absent :44 Secretions no :44 Breath Sounds RUL clear :44 Breath Sounds RML clear :44 Breath Sounds RLL clear :44 Breath Sounds DARIANA clear :44 Breath Sounds LLL clear :44 Airway natural :44 Chest Tube no :44 Oxygen no :44 Oxygen Mask Type nasal cannula :49 Oxygen Flow Rate 2L :49 C-PAP no :44 BI-PAP no :44 Temp >100.4 no :44 Temp <96.8 no :44 Chills with rigors no :44 HR > 90bpm no :44 Respirations > 20 no :44 Systolic <90 no :44 headache stiff neck no :44 WBC > 19950 no :44 WBC < 4000 no :44 Rapid Resp no :44 IV Site Location Left AC :00 IV Type peripheral :00 IV Site Information discontinued :00 IV Site Rishi 18 :44 IV Site Appearance WNL :44 IV Site Color clear :44 IV Site Patent yes :44 Dressing Type occlusive :44 Nursing Note "Everything was very good. Everyone did a very good job." [id number] Cognitive Status Finding Observation Time Oriented To Date 5 Yes [id number]:[address] 5 Yes :35 Name 3 Objects 3 Yes :35 Name Object in Rm 2 Yes :35 Recall 3 Objects 3 Yes :35 Repeats a Phrase 1 Yes :35 Follows Verbal Direc 3 Yes :35 Follows Written Dire 1 Yes :35 Write a Sentance 1 Yes : Draw an Object 1 Yes :35 Mini Mental Total 25 points :35 Less than 20 Phys not applicable :35 Learning Ability comprehends well : Neurological no :00 Psychological no :00 Physical no :00 Hearing no :00 Partition Notcher Needed no :00 Sign Language no :00 Emotional no :00 Vision yes :00 Laguage no :00 Financial no :00 Vital signs Type Value Date Respiration Rate 20breaths per minute :42 Pulse 58beats per minute :42 Oxygen Saturation 97% :42 BP Systolic 139mmHg :42 BP Diastolic 68mmHg :42 Temperature 98.3F [id number]:42 Height 66inches :35 Weight 140.0LB :35 Social history Type Value Smoking Status CURRENT LIGHT TOBACCO SMOKER Treatment Plan No treatment plan text is available for this visit. Hospital discharge instructions Discharge Date/Time 10/16/14 1100 Accompanied By Relationship spouse/signif other Dismissal Condition good Disposition on DC home Valuables no DC Inst/Educ Give yes Exit Care Educ Given yes Med/Side Effects Rev yes DC Med Rec Rev yes Immun Indicated no PNE Vac 2014 Vaccines Ord Given no Flu Vac 2014 Tetanus Vac Unknown Diet Explained yes Follow up appt already scheduled Follow Up Appt D/T 10/22/14 @1051
--- OUTSIDE RECORDS SUMMARY | 2016-11-22 15:34 | XMS REPORT | Clinical Summary ---
Author Author Admin, QIE Organization [employer] Address Unknown Phone Unavailable Allergies, Adverse Reactions, [...] Cough ELEVATED P S A 790.93 Resolved Caop Poe MD Elevated prostate specific antigen [PSA] [...] Other calculus in bladder HEMATURIA 599.70 Resolved Caop Poe MD Hematuria, unspecified U T I-RECURRENT 599.0 Resolved Capo Poe MD Urinary tract infection, site not specified RASH AND OTHER NONSPECIFIC SKIN ERUPTION 782.1 Resolved Capo Poe MD Rash and other nonspecific skin eruption Near syncope 780.2 Resolved aCpo Poe MD Syncope and collapse Carotid artery [...] 1 tablet by mouth daily CITALOPRAM HYDROBROMIDE 14567596709 Active Capo Poe MD Active CLARITIN 5 MG ORAL CHEW 1 tab po q day LORATADINE 03770117441 Active Felisa Daphney TEIXEIRA Active VIIBRYD STARTER PACK 10 & 20 MG ORAL KIT 1 po qd as directed 2015 VILAZODONE HCL 00758511258 No Longer Active Felisa TEIXEIRA Active HYDROXYZINE HCL 25 MG TAB 1 po qHS PRN Insomnia HYDROXYZINE HCL 51923231716 Active Capo Poe MD Active LISINOPRIL 10 MG TABS 1 tablet by mouth daily LISINOPRIL 90775502785 Active Capo Poe MD Active LORTAB 7.5-325 MG ORAL TABS 1 po q 6 hr prn pain HYDROCODONE- ACETAMINOPHEN 41440847275 No Longer Active Capo Poe MD Active FLOMAX 0.4 MG CAPS Take one by mouth daily TAMSULOSIN HCL 61480800728 No Longer Active Capo Poe MD Active TRIAMCINOLONE ACETONIDE 0.1 % CREA Apply to affected areas TID for up to 2 weeks TRIAMCINOLONE ACETONIDE 15031111282 Active Capo Poe MD Active NICOTINE 14 MG/24HR TRANS PT24 Apply/Change q 24hr NICOTINE 06766098768 No Longer Active Capo Poe MD Active TRAMADOL HCL 50 MG TABS 1-2 tablets every 6 hours as needed for pain TRAMADOL HCL 28028620389 No Longer Active Capo Poe MD Active SERTRALINE HCL 100 MG ORAL TABS take 1 tab daily SERTRALINE HCL 57598014646 No Longer Active Capo Poe MD Active LISINOPRIL-HYDROCHLOROTHIAZIDE 10-12.5 MG TABS 0.5 tab by mouth daily LISINOPRIL-HYDROCHLOROTHIAZIDE 71558029670 No Longer Active Capo Poe MD Active OMEPRAZOLE 20 MG CPDR 1 tablet by mouth daily OMEPRAZOLE 73453776322 Active Capo Poe MD Active WELLBUTRIN SR 150 MG ORAL OL62N-CXT 1 po BID BUPROPION HCL 50568595090 No Longer Active Capo Poe MD Active MIRALAX PACK 1 po qd PRN Constipation POLYETHYLENE GLYCOL 3350 48652940244 Active Capo Poe MD Active DULERA 100-5 MCG/ACT AERO 2 puffs BID MOMETASONE FURO- FORMOTEROL FUM 26597779235 Active Capo Poe MD Active ZOLOFT 100 MG TABS 1 po daily SERTRALINE HCL 99583094063 No Longer Active Zoran Arzola MD Active FERROUS SULFATE 325 (65 FE) MG TABS 1 tablet by mouth daily FERROUS SULFATE 58906057344 No Longer Active Capo Poe MD Active HYDROCODONE-ACETAMINOPHEN 7.5-300 MG TABS take one every six hours HYDROCODONE-ACETAMINOPHEN 48032840567 No Longer Active Capo Poe MD Active TRIAMCINOLONE ACETONIDE 0.1 % OINT Apply to affected areas TID for up to 2 weeks TRIAMCINOLONE ACETONIDE 38774501331 No Longer Active Joe Vargas RN Active FERROUS SULFATE 325 (65 FE) MG TABS Take one by mouth daily FERROUS SULFATE 72521229863 No Longer Active Capo Poe MD Active TRIAMCINOLONE ACETONIDE 0.1 % OINT Apply to affected areas TID for up to 2 weeks TRIAMCINOLONE ACETONIDE 86943264552 No Longer Active Capo Poe MD Active ADULT ASPIRIN LOW STRENGTH 81 MG TBDP qd ASPIRIN 88456505426 Active Zoran Arzola MD Active ALEVE 220 MG TAB prn NAPROXEN SODIUM 67902970496 Active Capo Poe MD Active MACROBID 100 MG CAP 1 cap by mouth twice daily NITROFURANTOIN MONOHYD MACRO 03611837141 No Longer Active Dona Becker Active AZITHROMYCIN 250 MG TABS 2 po qd x 1 day, then 1 po qd x 4 days AZITHROMYCIN 13806019084 No Longer Active Capo Poe MD Active FISH OIL 500 MG CAPS by mouth twice a day OMEGA-3 FATTY ACIDS 41286158157 Active Capo Poe MD Active FLAXSEED OIL 1000 MG CAPS Take two by mouth daily FLAXSEED (LINSEED) 63229945136 Active Zoran Arzola MD Active RED YEAST RICE 600 MG CAPS Take two by mouth daily RED YEAST RICE EXTRACT 93226125987 Active Zoran Arzola MD Active MULTIVITAMINS CAPS Take one by mouth daily MULTIPLE VITAMIN 04612028237 Elza Arzola MD Active ICAPS MV TABS 2 po daily MULTIPLE VITAMINS-MINERALS 24063334576 Active Jam Arnold DO Active MACROBID 100 MG CAP 1 cap by mouth twice daily MACROBID 100 MG CAP 8447161 NITROFURANTOIN MONOHYD MACRO Inactive FERROUS SULFATE 325 (65 FE) MG TABS Take one by mouth daily FERROUS SULFATE 325 (65 FE) MG TABS 198108 FERROUS SULFATE Inactive HYDROCODONE-ACETAMINOPHEN 7.5-300 MG TABS take one every six hours HYDROCODONE-ACETAMINOPHEN 7.5-300 MG TABS 154282 HYDROCODONE- ACETAMINOPHEN Inactive FERROUS SULFATE 325 (65 FE) MG TABS 1 tablet by mouth daily FERROUS SULFATE 325 (65 FE) MG TABS 410670 FERROUS SULFATE Inactive ZOLOFT 100 MG TABS 1 po daily ZOLOFT 100 MG TABS 484134 SERTRALINE HCL Inactive SERTRALINE HCL 100 MG ORAL TABS take 1 tab daily SERTRALINE HCL 100 MG ORAL TABS 737620 SERTRALINE HCL Inactive TRAMADOL HCL 50 MG TABS 1-2 tablets every 6 hours as needed for pain TRAMADOL HCL 50 MG TABS 243854 TRAMADOL HCL Inactive NICOTINE 14 MG/24HR TRANS PT24 Apply/Change q 24hr NICOTINE 14 MG/24HR TRANS PT24 568792 NICOTINE Inactive FLOMAX 0.4 MG CAPS Take one by mouth daily FLOMAX 0.4 MG CAPS 139528 TAMSULOSIN HCL Inactive LORTAB 7.5-325 MG ORAL TABS 1 po q 6 hr prn pain LORTAB 7.5- 325 MG ORAL TABS 288176 HYDROCODONE-ACETAMINOPHEN Inactive VIIBRYD STARTER PACK 10 & 20 MG ORAL KIT 1 po qd as directed 2015 VIIBRYD STARTER PACK 10 & 20 MG ORAL KIT VILAZODONE HCL Inactive AZITHROMYCIN 250 MG TABS 2 po qd x 1 day, then 1 po qd x 4 days AZITHROMYCIN 250 MG TABS 5816328 AZITHROMYCIN Inactive TRIAMCINOLONE ACETONIDE 0.1 % OINT Apply to affected areas TID for up to 2 weeks TRIAMCINOLONE ACETONIDE 0.1 % OINT 4159928 TRIAMCINOLONE ACETONIDE Inactive TRIAMCINOLONE ACETONIDE 0.1 % OINT Apply to affected areas TID for up to 2 weeks TRIAMCINOLONE ACETONIDE 0.1 % OINT 0655076 TRIAMCINOLONE ACETONIDE Inactive Advance Directives Directive Description [...] ... - Chemistry sodium, serum 141 mmol/L 467-612 9424/01/27 carbon dioxide, venous blood 29.7 mmol/L 21.0-32.0 [...] urine 30 - 300 mg/g mg/g{creat} 0-29 blood glucose 129 mg/dL 65-110 chloride, serum 101 mmol/L 98-107 potassium, serum 4.6 mmol/L 3.5-5.2 carbon dioxide, venous blood 25.5 mmol/L 21.0-32.0 sodium, serum 138 mmol/L 491-659 1774/03/18 urea nitrogen, blood 20 mg/dL 7-18 creatinine, serum 1.87 mg/dL 0.55-1.30 alanine aminotransferase (SGPT), serum 26 U/L 12-78 aspartate aminotransferase (SGOT), serum 20 U/L 15-37 calcium, serum 8.8 mg/dL 8.5-10.1 bilirubin, serum, total 0.40 mg/dL 0.00-1.00 cholesterol, serum 251 mg/dL 037-708 2842/03/18 triglyceride, serum, fasting 135 mg/dL 30-200 HDL [...] 0-19 Encounters Code Encounter Date Provider Facility CPT-29683 Level 4 Est. Patient 09:26:11 EDGE BASTER Capo Poe MD [facility] CPT-42433 Level 4 Est. Patient 08:53:08 CDT Capo Poe MD [facility] CPT-97498 Level 4 Est. Patient 10:22:57 CDT Capo Poe MD [facility] CPT-30744 Level 4 Est. Patient 13:44:30 CDT Capo Poe MD [facility] CPT-55515 Level 3 Est. Patient 14:59:32 [facility]ER Capo Poe MD [facility] CPT-74734 Level 4 Est. Patient 10:46:15 ED[facility] BASTER Capo Poe MD [facility] CPT-44949 Level 3 Est. Patient 11:00:53 CDT Capo Poe MD [facility] CPT-83164 Level 3 Est. Patient 09:39:35 CDT Capo Poe MD [facility] CPT-43492 Level 3 Est. Patient 09:27:01 CDT Capo Poe MD [facility] CPT-04610 Level 3 Est. Patient 18:37:08 CDT Zoran Arzola MD [facility] CPT-31534 Level 3 Est. Patient 15:00:28 CDT Capo Poe MD [facility] CPT-73599 Level 3 Est. Patient 08:20:19 CDT Zoran Arzola MD [facility] CPT-30723 Level 3 Est. Patient 09:22:21 CDT Capo Poe MD [facility] CPT-39069 Level 4 Est. Patient 10:21:30 [facility] BASTER Capo Poe MD [facility] CPT-40595 Level 3 Est. Patient 17:08:51 [facility]ER Zoran Arzola MD [facility] CPT-20314 Level 4 Est. Patient 09:44:42 CDT Capo Poe MD [facility] CPT-62239 Level 4 Est. Patient 10:39:29 CDT Capo Poe MD [facility] CPT-90463 Level 3 Est. Patient 17:45:23 CDT Zoran Arzola MD [facility] CPT-94097 Level 4 Est. Patient 08:50:44 CDT Capo Poe MD [facility] CPT-88448 Level 3 Est. Patient 10:39:51 ED[facility] BASTER Capo Poe MD [facility] CPT-05584 Level 4 Est. Patient 09:44:24 [facility]ER Capo Poe MD [facility] CPT-00449 Level 3 Est. Patient 14:48:42 [facility] Zoran Arzola MD [facility] CPT-07103 Level 4 Est. Patient 10:24:02 CDT Capo Poe MD [facility] CPT-13037 Level 3 Est. Patient 15:42:00 CDT Maya Brownlee ERNST [facility] CPT-05551 Level 4 Est. Patient 13:34:15 CDT Capo Poe MD [facility] CPT-20851 Level 3 Est. Patient 15:32:10 [facility]ER Zoran Arzola MD [facility] CPT-11502 Level 3 New Patient 17:17:19 [facility]ER Zoran Arzola MD [facility] CPT-78931 Level 4 Est. Patient 10:25:01 [facility]ER Capo Poe MD [facility] CPT-39884 Level 3 Est. Patient 10:10:42 CDT Zoran Arzola MD [facility] CPT-78785 Level 3 Est. Patient 22:30:02 CDT Zoran Arzola MD [facility] CPT-13545 Level 4 Est. Patient 09:54:20 CDT Capo Poe MD [facility] CPT-15752 Level 3 Est. Patient 10:48:30 CDT Capo Poe MD [facility] CPT-11876 Level 3 Est. Patient 11:24:45 CDT Capo Poe MD [facility] CPT-44899 Level 3 Est. Patient 15:23:48 [facility]ER Capo Poe MD [facility] CPT-83297 Level 3 Est. Patient 15:10:03 [facility]ER Capo Poe MD [facility] CPT-23519 Level 3 Est. Patient 16:18:40 CDT J Salomón Arzola MD [facility] Procedures Code Procedure Name Date Entry Date Standard Description CPT-91464 TPSA - LAB USE ONLY 10:37:52 ED[facility]ER CPT-77737 TSH - LAB USE ONLY 10:37:51 [facility]ER CPT-40704 CMP - LAB USE ONLY 10:37:51 [facility]ER CPT-54407 CBC with Diff - LAB USE ONLY 10:37:51 [facility]ER CPT-55061 Venipuncture Draw Fee 10:37:51 [facility]ER CPT-000 Give Pneumovax 10:39:30 CDT CPT-83630 Venipuncture Draw Fee 09:32:34 CDT CPT-G0438 Initial Annual Wellness Exam 10:24:35 CDT CPT-39019 Venipuncture Draw Fee 09:46:29 CDT CPT-33193 Venipuncture Draw Fee 14:30:06 CDT CPT-77078 Venipuncture Draw Fee 10:58:22 CDT CPT-94218 Abd single AP View 08:32:00 CDT CPT-13095 Postop F/U Visit 21:13:08 CDT CPT-33479 Abd single AP View 15:50:24 CDT CPT-87547 Cystoscopy W/rem FB 15:21:28 CDT CPT-13826 Abd single AP View 14:06:45 CDT CPT-14637 Postop F/U Visit 09:48:32 CDT CPT-01515 Abd single AP View 13:58:26 CDT CPT-91674 Hip comp min 2V 10:27:18 EDGE BASTER CPT-29046 Urine Dip (Floor Use Only) 13:41:01 ED[facility] B[facility]ER CPT-27930 Postop F/U Visit 11:17:48 CDT CPT-LR Lesion Removal 11:50:22 CDT CPT-OV Office Visit 11:50:22 CDT CPT-94224 Pneumovax 23 10:55:48 CDT CPT-78359 Administration single or combination vaccine inc oral 10 :55:48 CDT CPT-Cryo Cryotherapy 11:18:11 CDT CPT-OV Office Visit 11:18:11 CDT CPT-96289 LS spine AP and Lat 09:05:22 CDT CPT-06114 Bladder Scan 15:42:00 CDT CPT-45103 Cystoscopy 15:42:00 CDT CPT-OV Office Visit 16:37:19 ED[facility] BASTER CPT-60942 Bladder Scan 15:32:10 ED[facility]ER CPT-95264 Cystoscopy 15:32:10 ED[facility] B[facility]ER CPT-92349 Abd single AP View 14:05:59 EDGE BASTER CPT-45219 Pill cam small bowel 09:48:39 EDGE BASTER CPT-18994 Urine Dip (Floor Use Only) 17:17:19 ED[facility] B[facility]ER CPT-37104 Bladder Scan 17:17:19 ED[facility] B[facility]ER CPT-OV Office Visit 11:50:26 [facility] B[facility]ER CPT-49207 Bladder Scan 10:10:42 CDT CPT-97315 Venipuncture Draw Fee 09:14:04 CDT CPT-35528 Chest 2V Frontal and Lat 10:10:49 CDT CPT-20070 LS spine comp w obliq 11:50:11 CDT CPT-12391 Venipuncture Draw Fee 08:52:57 ED[facility] BASTER CPT-41084 Cystoscopy W/rem FB 18:37:28 CDT CPT-75702 Abd single AP View 16:18:40 CDT CPT-96913 Abd compl w upright 17:30:59 CDT
--- OUTSIDE RECORDS SUMMARY | 2016-11-22 15:35 | XMS REPORT ---
Author Author [facility] Organization [facility] Address [address] [place], [place] [address] Phone [phone] Care Team Providers Care Roof Bolter Operator Name Role Phone KRISTINA MENJIVAR MD PP [phone] Summary purpose TRANSITION OF CARE AUTO GENERATION [...] Allergen Category Ingredient Status Reaction Severity Onset Vnpjiok-Twq-Nph Reductase Inhibitors Drug Allergy Jyrdgdw-Sey-Kyc Reductase Inhibitors Confirmed or Verified BACK PAIN morphine Drug Allergy morphine Confirmed or Verified Swelling Mild Adult Nitrofurantoin Drug Allergy Nitrofurantoin Confirmed or Verified Immunizations No immunizations recorded for this patient visit Relevant diagnostic tests and/or laboratory data No authorized results are available for this patient visit History of procedures No procedures recorded for this patient visit. Functional status Functional Status Finding Observation Time IV Site Location Left A/C 51-34-689770:15 IV Type peripheral 28-95-468326:15 IV Site Information discontinued 25-09-477646:35 IV Site Start Attmpt 1 times 87-42-500137:15 IV Site Rishi 20 10-13-848300:15 IV Site Appearance WNL 90-92-659496:35 IV Site Color clear 53-64-785651:35 IV Site Patent yes 83-28-614990:35 Dressing Type gauze 26-03-690784:35 Nursing Note Second set of scans completed. Verbal and written discharge instructions given. Patient voices understanding. Patient also given a to go bag with juice and crackers. Patient ambulated from unit in good condition. Chest pain remained at a "0" throughout entire procedure. :48 Vital signs Type Value Date Height 66inches 53-30-494250:20 Weight 137LB 07-03-017813:20 Social history No Social History or smoking status observations were recorded for this visit. ( Unknown if ever smoked.) Treatment Plan No treatment plan text is available for this visit. Hospital discharge instructions Discharge Date/Time 11/09/2014 0948 Accompanied By Dismissal Condition good Disposition on DC home DC Inst/Educ Give yes
--- OUTSIDE RECORDS SUMMARY | 2016-11-22 15:35 | XMS REPORT | Clinical Summary ---
Author Author Admin, QIE Organization [facility] Address Unknown Phone Unavailable Allergies, Adverse Reactions, [...] collapse Iron deficiency 280.9 Active Jasmin Dixon [facility] Iron deficiency anemia, unspecified COPD, acute exacerbation 491.21 Active Capo Poe MD Obstructive chronic bronchitis with (acute) exacerbation Dysphagia 787.20 Active Leanna Baker APRN Dysphagia, unspecified NAUSEA AND VOMITING ICD-787.01 Inactive Capo [...] U T I-RECURRENT ICD-599.0 Clyde Poe MD BLADDER CALCULUS ICD-594.1 Inactive Capo [...] Inactive Capo Poe MD Urethral calculus ICD-594.2 Clyde Poe MD Chest pain ICD-786.50 Clyde Poe MD Prostate cancer screening ICD-V76.44 Clyde Poe MD Pruritic rash ICD-698.8 Inactive Capo Poe MD Elevated creatinine ICD-790.4 Inactive Capo Poe MD Medication List Medication Instructions Start Date Stop Date Generic Name NDC Status Provider Patient Instruction LEVAQUIN 500 MG TABS 1 daily for infection LEVOFLOXACIN 24243270538 Active Leanna Baker APRN Active AZITHROMYCIN 250 MG ORAL TABS 2 po qd x 1, then 1 po qd x 4 AZITHROMYCIN 25716026606 Active Capo Poe MD Active PREDNISONE 20 MG ORAL TABS 2 po qd x 5 days PREDNISONE 36353755119 No Longer Active Capo Poe MD Active CARAFATE 1 GM ORAL TABS 1 tid SUCRALFATE 16170717854 Active Capo Poe MD Active RANITIDINE HCL 150 MG ORAL TABS 1 bid RANITIDINE HCL 25042018528 Active Capo Poe MD Active MULTIVITAMINS CAPS Take one by mouth daily MULTIPLE VITAMIN 62705202656 No Longer Active Capo Poe MD Active LISINOPRIL 10 MG TABS 1 tablet by mouth daily LISINOPRIL 31548874073 No Longer Active Capo Poe MD Active EQL IRON SUPPLEMENT THERAPY 325 MG ORAL TABS 1 tab po twice daily FERROUS SULFATE 50560456562 Active Jasminailyn Dixon RMA Active D ORAL TABS 2000 iu weekly D ORAL TABS Active Capo Poe MD Active CITALOPRAM HYDROBROMIDE 20 MG TABS 1 tablet by mouth daily CITALOPRAM HYDROBROMIDE 84878175277 Active Capo Poe MD Active CLARITIN 5 MG ORAL CHEW 1 tab po q day LORATADINE 83012509927 Active Felisa Daphney TEIXEIRA Active VIIBRYD STARTER PACK 10 & 20 MG ORAL KIT 1 po qd as directed 2015 VILAZODONE HCL 98025858811 No Longer Active Felisa Daphney TEIXEIRA Active HYDROXYZINE HCL 25 MG TAB 1 po qHS PRN Insomnia HYDROXYZINE HCL 03183430690 Active Capo Poe MD Active LORTAB 7.5-325 MG ORAL TABS 1 po q 6 hr prn pain HYDROCODONE- ACETAMINOPHEN 20859358124 No Longer Active Capo Poe MD Active FLOMAX 0.4 MG CAPS Take one by mouth daily TAMSULOSIN HCL 73621562962 No Longer Active Capo Poe MD Active TRIAMCINOLONE ACETONIDE 0.1 % CREA Apply to affected areas TID for up to 2 weeks TRIAMCINOLONE ACETONIDE 10014047407 Active Capo Poe MD Active NICOTINE 14 MG/24HR TRANS PT24 Apply/Change q 24hr NICOTINE 65166867438 No Longer Active Capo Poe MD Active TRAMADOL HCL 50 MG TABS 1-2 tablets every 6 hours as needed for pain TRAMADOL HCL 80534546624 No Longer Active Capo Poe MD Active SERTRALINE HCL 100 MG ORAL TABS take 1 tab daily SERTRALINE HCL 95620947406 No Longer Active Capo Poe MD Active LISINOPRIL-HYDROCHLOROTHIAZIDE 10-12.5 MG TABS 0.5 tab by mouth daily LISINOPRIL-HYDROCHLOROTHIAZIDE 22587691100 No Longer Active Capo Poe MD Active OMEPRAZOLE 20 MG CPDR 1 tablet by mouth daily OMEPRAZOLE 27140096109 Active Capo Poe MD Active WELLBUTRIN SR 150 MG ORAL [id number]-HYA 1 po BID BUPROPION HCL 40365742956 No Longer Active Capo Poe MD Active MIRALAX PACK 1 po qd PRN Constipation POLYETHYLENE GLYCOL 3350 20516817376 Active Capo Poe MD Active DULERA 100-5 MCG/ACT AERO 2 puffs BID MOMETASONE FURO- FORMOTEROL FUM 30376399228 Active Capo Poe MD Active ZOLOFT 100 MG TABS 1 po daily SERTRALINE HCL 26927264811 No Longer Active Zoran Arzola MD Active FERROUS SULFATE 325 (65 FE) MG TABS 1 tablet by mouth daily FERROUS SULFATE 92888926674 No Longer Active Capo Poe MD Active HYDROCODONE-ACETAMINOPHEN 7.5-300 MG TABS take one every six hours HYDROCODONE-ACETAMINOPHEN 13328529273 No Longer Active Capo Poe MD Active TRIAMCINOLONE ACETONIDE 0.1 % OINT Apply to affected areas TID for up to 2 weeks TRIAMCINOLONE ACETONIDE 32407227395 No Longer Active Joe Vargas RN Active FERROUS SULFATE 325 (65 FE) MG TABS Take one by mouth daily FERROUS SULFATE 54892325189 No Longer Active Capo Poe MD Active TRIAMCINOLONE ACETONIDE 0.1 % OINT Apply to affected areas TID for up to 2 weeks TRIAMCINOLONE ACETONIDE 93491350039 No Longer Active Capo Poe MD Active ADULT ASPIRIN LOW STRENGTH 81 MG TBDP qd ASPIRIN 52583367706 Active Zoran Arzola MD Active ALEVE 220 MG TAB prn NAPROXEN SODIUM 44003735055 Active Capo Poe MD Active MACROBID 100 MG CAP 1 cap by mouth twice daily NITROFURANTOIN MONOHYD MACRO 72546659664 No Longer Active Donaarmando Becker Active AZITHROMYCIN 250 MG TABS 2 po qd x 1 day, then 1 po qd x 4 days AZITHROMYCIN 20524896176 No Longer Active Capo Poe MD Active FISH OIL 500 MG CAPS by mouth twice a day OMEGA-3 FATTY ACIDS 25284663824 Active Capo Poe MD Active FLAXSEED OIL 1000 MG CAPS Take two by mouth daily FLAXSEED (LINSEED) 75659080376 Active Zoran Arzola MD Active RED YEAST RICE 600 MG CAPS Take two by mouth daily RED YEAST RICE EXTRACT 63851137819 Active Zoran Arzola MD Active ICAPS MV TABS 2 po daily MULTIPLE VITAMINS-MINERALS 90469985966 Active Jam Arnold DO Active MACROBID 100 MG CAP 1 cap by mouth twice daily MACROBID 100 MG CAP 1616273 NITROFURANTOIN MONOHYD MACRO Inactive FERROUS SULFATE 325 (65 FE) MG TABS Take one by mouth daily FERROUS SULFATE 325 (65 FE) MG TABS 713244 FERROUS SULFATE Inactive HYDROCODONE-ACETAMINOPHEN 7.5-300 MG TABS take one every six hours HYDROCODONE-ACETAMINOPHEN 7.5-300 MG TABS 136066 HYDROCODONE- ACETAMINOPHEN Inactive FERROUS SULFATE 325 (65 FE) MG TABS 1 tablet by mouth daily FERROUS SULFATE 325 (65 FE) MG TABS 207665 FERROUS SULFATE Inactive ZOLOFT 100 MG TABS 1 po daily ZOLOFT 100 MG TABS 580611 SERTRALINE HCL Inactive SERTRALINE HCL 100 MG ORAL TABS take 1 tab daily SERTRALINE HCL 100 MG ORAL TABS 922203 SERTRALINE HCL Inactive TRAMADOL HCL 50 MG TABS 1-2 tablets every 6 hours as needed for pain TRAMADOL HCL 50 MG TABS 019072 TRAMADOL HCL Inactive NICOTINE 14 MG/24HR TRANS PT24 Apply/Change q 24hr NICOTINE 14 MG/24HR TRANS PT24 888992 NICOTINE Inactive FLOMAX 0.4 MG CAPS Take one by mouth daily FLOMAX 0.4 MG CAPS 649660 TAMSULOSIN HCL Inactive LORTAB 7.5-325 MG ORAL TABS 1 po q 6 hr prn pain LORTAB 7.5- 325 MG ORAL TABS 693340 HYDROCODONE-ACETAMINOPHEN Inactive VIIBRYD STARTER PACK 10 & 20 MG ORAL KIT 1 po qd as directed 2015 VIIBRYD STARTER PACK 10 & 20 MG ORAL KIT VILAZODONE HCL Inactive LISINOPRIL 10 MG TABS 1 tablet by mouth daily LISINOPRIL 10 MG TABS 627618 LISINOPRIL Inactive MULTIVITAMINS CAPS Take one by mouth daily MULTIVITAMINS CAPS MULTIPLE VITAMIN Inactive AZITHROMYCIN 250 MG TABS 2 po qd x 1 day, then 1 po qd x 4 days AZITHROMYCIN 250 MG TABS 6800964 AZITHROMYCIN Inactive TRIAMCINOLONE ACETONIDE 0.1 % OINT Apply to affected areas TID for up to 2 weeks TRIAMCINOLONE ACETONIDE 0.1 % OINT 4965778 TRIAMCINOLONE ACETONIDE Inactive TRIAMCINOLONE ACETONIDE 0.1 % OINT Apply to affected areas TID for up to 2 weeks TRIAMCINOLONE ACETONIDE 0.1 % OINT 5472760 TRIAMCINOLONE ACETONIDE Inactive PREDNISONE 20 MG ORAL TABS 2 po qd x 5 days PREDNISONE 20 MG ORAL TABS 224357 PREDNISONE Inactive Advance Directives Directive Description Start [...] ... - Chemistry sodium, serum 141 mmol/L 736-474 7476/01/27 carbon dioxide, venous blood 29.7 mmol/L 21.0-32.0 [...] % 11.0-15.0 platelet count 214 THOUSAND/UL 10*3/mm3 891-309 6780/03/31 mean platelet volume 8.4 fL 7.5-12.5 Encounters Code Encounter Date Provider Facility CPT-59671 Level 3 Est. Patient 11:31:49 [facility] 3 Est. Patient 09:44:06 CDT [address] [facility] CPT-74020 Level 4 Est. Patient 09:26:11 GENERAL EXPEDITOR Capo Poe MD [facility] CPT-13557 Level 4 Est. Patient 08:53:08 CDT [address] [facility] CPT-26698 Level 4 Est. Patient 10:22:57 CDT Capo Poe MD [facility] CPT-67462 Level 4 Est. Patient 13:44:30 CDT Capo Poe MD [facility] CPT-78055 Level 3 Est. Patient 14:59:32 GENERAL EXPEDITOR Capo Poe MD [facility] CPT-72555 Level 4 Est. Patient 10:46:15 GENERAL EXPEDITOR Capo Poe MD [facility] CPT-17363 Level 3 Est. Patient 11:00:53 CDT Capo Poe MD [facility] CPT-56476 Level 3 Est. Patient 09:39:35 CDT Capo Poe MD [facility] CPT-99430 Level 3 Est. Patient 09:27:01 CDT [address] [facility] CPT-66872 Level 3 Est. Patient 18:37:08 CDT Zoran Arzola MD [facility] CPT-18900 Level 3 Est. Patient 15:00:28 CDT Capo Poe MD [facility] CPT-98490 Level 3 Est. Patient 08:20:19 CDT Zoran Arzola MD [facility] CPT-24363 Level 3 Est. Patient 09:22:21 CDT Capo Poe MD [facility] CPT-31304 Level 4 Est. Patient 10:21:30 GENERAL EXPEDITOR Capo Poe MD [facility] CPT-92184 Level 3 Est. Patient 17:08:51 GENERAL EXPEDITOR Zoran Arzola MD [facility] CPT-53747 Level 4 Est. Patient 09:44:42 CDT Capo Poe MD [facility] CPT-29821 Level 4 Est. Patient 10:39:29 CDT Capo Poe MD [facility] CPT-64328 Level 3 Est. Patient 17:45:23 CDT Zoran Arzola MD [facility] CPT-96675 Level 4 Est. Patient 08:50:44 CDT [address] [facility] CPT-15372 Level 3 Est. Patient 10:39:51 GENERAL EXPEDITOR Capo Poe MD [facility] CPT-48444 Level 4 Est. Patient 09:44:24 GENERAL EXPEDITOR Capo Poe MD [facility] CPT-27647 Level 3 Est. Patient 14:48:42 GENERAL EXPEDITOR Zoran Arzola MD [facility] CPT-72806 Level 4 Est. Patient 10:24:02 CDT Capo Poe MD [facility] CPT-94835 Level 3 Est. Patient 15:42:[address] [facility] CPT-60509 Level 4 Est. Patient 13:34:15 CDT Capo Poe MD [facility] CPT-97016 Level 3 Est. Patient 15:32:10 GENERAL EXPEDITOR Zoran Arzola MD [facility] CPT-50783 Level 3 New Patient 17:17:19 GENERAL EXPEDITOR Zoran Arzola MD [facility] CPT-37466 Level 4 Est. Patient 10:25:01 GENERAL EXPEDITOR Capo Poe MD [facility] CPT-61204 Level 3 Est. Patient 10:10:42 CDT Zoran Arzola MD [facility] CPT-38769 Level 3 Est. Patient 22:30:02 CDT Zoran Arzola MD [facility] CPT-45347 Level 4 Est. Patient 09:54:20 CDT Capo Poe MD [facility] CPT-34286 Level 3 Est. Patient 10:48:30 CDT Capo Poe MD [facility] CPT-48812 Level 3 Est. Patient 11:24:45 CDT Capo Poe MD [facility] CPT-40869 Level 3 Est. Patient 15:23:48 GENERAL EXPEDITOR Capo Poe MD [facility] CPT-31338 Level 3 Est. Patient 15:10:03 GENERAL EXPEDITOR Capo Poe MD [facility] CPT-93036 Level 3 Est. Patient 16:18:40 CDT Zoran Arzola MD [facility] Procedures Code Procedure Name Date Entry Date Standard Description CPT-18716 Chest 2V Frontal and Lat - XRAY USE ONLY 11:51:24 CDT CPT-92418 Venipuncture Draw Fee 11:31:49 CDT CPT-72509 Hemoccult IFOBT - LAB USE ONLY 14:11:43 GENERAL EXPEDITOR CPT-29594 TPSA - LAB USE ONLY 10:37:52 GENERAL EXPEDITOR CPT-60152 TSH - LAB USE ONLY 10:37:51 GENERAL EXPEDITOR CPT-62684 CMP - LAB USE ONLY 10:37:51 GENERAL EXPEDITOR CPT-78848 CBC with Diff - LAB USE ONLY 10:37:51 GENERAL EXPEDITOR CPT-16026 Venipuncture Draw Fee 10:37:51 GENERAL EXPEDITOR CPT-000 Give Pneumovax 10:39:30 CDT CPT-00736 Venipuncture Draw Fee 09:32:34 CDT CPT-G0438 Initial Annual Wellness Exam 10:24:35 CDT CPT-20557 Venipuncture Draw Fee 09:46:29 CDT CPT-99629 Venipuncture Draw Fee 14:30:06 CDT CPT-08394 Venipuncture Draw Fee 10:58:22 CDT CPT-40761 Abd single AP View 08:32:00 CDT CPT-19242 Postop F/U Visit 21:13:08 CDT CPT-55527 Abd single AP View 15:50:24 CDT CPT-92413 Cystoscopy W/rem FB 15:21:28 CDT CPT-65553 Abd single AP View 14:06:45 CDT CPT-42987 Postop F/U Visit 09:48:32 CDT CPT-04217 Abd single AP View 13:58:26 CDT CPT-88829 Hip comp min 2V 10:27:18 GENERAL EXPEDITOR CPT-47513 Urine Dip (Floor Use Only) 13:41:01 GENERAL EXPEDITOR CPT-46866 Postop F/U Visit 11:17:48 CDT CPT-LR Lesion Removal 11:50:22 CDT CPT-OV Office Visit 11:50:22 CDT CPT-29670 Pneumovax 23 10:55:48 CDT CPT-66675 Administration single or combination vaccine inc oral 10 :55:48 CDT CPT-Cryo Cryotherapy 11:18:11 CDT CPT-OV Office Visit 11:18:11 CDT CPT-46625 LS spine AP and Lat 09:05:22 CDT CPT-56889 Bladder Scan 15:42:00 CDT CPT-56630 Cystoscopy 15:42:00 CDT CPT-OV Office Visit 16:37:19 GENERAL EXPEDITOR CPT-57437 Bladder Scan 15:32:10 GENERAL EXPEDITOR CPT-34380 Cystoscopy 15:32:10 GENERAL EXPEDITOR CPT-26278 Abd single AP View 14:05:59 GENERAL EXPEDITOR CPT-36118 Pill cam small bowel 09:48:39 GENERAL EXPEDITOR CPT-48525 Urine Dip (Floor Use Only) 17:17:19 GENERAL EXPEDITOR CPT-95972 Bladder Scan 17:17:19 GENERAL EXPEDITOR CPT-OV Office Visit 11:50:26 GENERAL EXPEDITOR CPT-21591 Bladder Scan 10:10:42 CDT CPT-07818 Venipuncture Draw Fee 09:14:04 CDT CPT-34642 Chest 2V Frontal and Lat 10:10:49 CDT CPT-01555 LS spine comp w obliq 11:50:11 CDT CPT-84843 Venipuncture Draw Fee 08:52:57 GENERAL EXPEDITOR CPT-01748 Cystoscopy W/rem FB 18:37:28 CDT CPT-34967 Abd single AP View 16:18:40 CDT CPT-34644 Abd compl w upright 17:30:59 CDT
--- OUTSIDE RECORDS SUMMARY | 2016-11-22 15:35 | XMS REPORT ---
Author Author [facility] Organization [facility] Address [address], [place] [address] Phone [phone] Care Team Providers Care Marketing Database Coordinator Name Role Phone KRISTINA MENJIVAR MD PP [phone] KRISTINA MENJIVAR MD PP [phone] Summary purpose TRANSITION OF CARE AUTO GENERATION Chief Complaint and Reason for Visit Admit Diagnosis 1 CALCULUS OF KIDNEY Problem list No authorized problems tracked for continuity of care are available for this visit. Encounters No authorized problems tracked for encounter diagnoses are available for this visit. Medications Home Medications Medication Directions Started Status Source ferrous sulfate 325 mg (65 mg iron) tablet 1 tablet Oral Every Other Day for anemia Current Doctor's office Symbicort 160 mcg-4.5 mcg/actuation HFA Aerosol Inhaler 2 puff Inhl 2 Times Daily for SOA Current Doctor's office Aleve 220 mg tablet 1 tablet Oral As Needed for pain Current Doctor's office Zoloft 100 mg tablet 1 tablet Oral 1 Daily for depression Current Doctor 's office Icaps MV 100 mcg-1.66 mg-0.83 mg tablet,delayed release 2 tablet Oral 1 Daily for supplement Current Doctor's office multivitamin tablet 1 tablet Oral 1 Daily for supplement Current Doctor' s office red yeast rice 600 mg capsule 2 tablet Oral 1 Daily for supplement Current Doctor's office flaxseed oil 1,000 mg capsule 1 capsule Oral 1 Daily for supplement Current Doctor's office Fish Oil 500 mg capsule 1 capsule Oral 2 Times Daily for supplement Current Doctor's office lisinopril-hydrochlorothiazide 10 mg-12.5 mg tablet 1 tablet Oral 1 Daily for BP Current Doctor's office aspirin 81 mg tablet 1 tablet Oral 1 Daily Current Patient recall Allergies, adverse reactions, alerts Allergen Category Ingredient Status Reaction Severity Onset Zrlztuu-Hlb-Fro Reductase Inhibitors Drug Allergy Zfuitox-Ylq-Mez Reductase Inhibitors Confirmed or Verified BACK PAIN morphine Drug Allergy morphine Confirmed or Verified Swelling Mild Adult Nitrofurantoin Drug Allergy Nitrofurantoin Confirmed or Verified Immunizations No immunizations recorded for this patient visit Relevant diagnostic tests and/or laboratory data RESULTS Coagulation 51-06-171516:00:00 Result Normal Range Units BT - Bleeding Time 2.0 Chemistry :00:00 Result Normal Range Units Sodium 137 134-145 mEq/l Potassium 4.0 3.5-5.1 mEq/l Chloride 99 98-107 mEq/l CO2 26.8 22-28 mEq/l Glucose H 117 70-105 mg/dl BUN H 19 7-18 mg/dl Creatinine H 1.68 0.6-1.3 mg/dl Calcium L 8.2 8.4-10.2 mg/dl Osmolality L 277.1 280-300 mOsm/L Anion GAP 11.2 8-16 BUN/Creatinine Ratio 11.3 10-20 Estimated GFR L 40 >=60 mL/min/1.7 Hematology 62-27-782039:00:00 Result Normal Range Units WBC 9.5 4.8-10.8 103/uL RBC L 4.6 4.7-6.1 106/uL HGB 14.5 13.0-18.0 g/dl HCT 43.5 41.9-52.0 % MCV H 94.8 80-94 FL MCH H 31.6 27-31 pg MCHC 33.3 33-37 g/dl RDW 13.7 11.5-15.5 % PLT 290 130-400 103/uL MPV 8.9 7.3-10.4 FL Neutro % H 76.6 40-70 % Lymph % L 14.3 20-40 % [place] % 7.2 0-10.0 % Eos % 1.3 0-7.0 % Baso % 0.6 0-2 % Neutro # 7.3 1.5-7.5 103/uL Lymph # 1.4 0.9-4.0 103/uL [place] # 0.7 0-0.8 103/uL Eos # 0.1 0-0.6 103/uL Baso # 0.1 0-0.1 103/uL Radiology Results 85-06-868799:00:00 Result Normal Range Units MPV 8.9 7.3-10.4 FL History of procedures Procedure Code Code Type Description Date Performed Performing Physician 98.51 ICD9-CM ESWL OF K/U/B 05-08-2014 59.8 ICD9-CM URETERAL CATHETERIZATION 05-08-2014 SIVAN LANGSTON 32690 CPT-4 FRAGMENTING OF KIDNEY STONE 05-08-2014 SIVAN LANGSTON 91063 CPT-4 CYSTOSCOPY AND TREATMENT 05-08-2014 SIVAN LANGSTON 72217 CPT-4 COMPLETE CBC W/AUTO DIFF WBC 05-08-2014 SIVAN LANGSTON 87190 CPT-4 METABOLIC PANEL TOTAL CA 05-08-2014 SIVAN LANGSTON 88587 CPT-4 BLEEDING TIME TEST 05-08-2014 SIVAN LANGSTON J7050 CPT-4 NORMAL SALINE SOLUTION INFUS 05-08-2014 SIVAN LANGSTON J3370 CPT-4 VANCOMYCIN HCL INJECTION 05-08-2014 SIVAN LANGSTON J7120 CPT-4 RINGERS LACTATE INFUSION 05-08-2014 SIVAN LANGSTON J2405 CPT-4 ONDANSETRON HCL INJECTION 05-08-2014 SIVAN LANGSTON J1885 CPT-4 TORADOL SYR 30MG/ML 05-08-2014 SIVAN LANGSTON J2250 CPT-4 INJ MIDAZOLAM HYDROCHLORIDE 05-08-2014 SIVAN LANGSTON J3010 CPT-4 FENTANYL CITRATE INJECITON 05-08-2014 SIVAN LANGSTON J2704 CPT-4 INJ, PROPOFOL, 10 MG 05-08-2014 SIVAN LANGSTON J1940 CPT-4 FUROSEMIDE INJECTION 05-08-2014 SIVAN LANGSTON 71644 CPT-4 ROUTINE VENIPUNCTURE 05-08-2014 SIVAN LANGSTON Functional status Functional Status Finding Observation Time Hearing Prob Loc none 99-80-438210:45 Vision Problems yes 48-46-230245:39 Vision Correct Dev glasses 89-35-475454:39 Ambulation Asst Dev none :45 Range of Motion full 27-38-305648:10 Muscle Strength RUE 5 ROM full resist 11-74-754403:10 Muscle Strength RLE 5 ROM full resist 28-13-861148:10 Muscle Strength LUE 5 ROM full resist 26-45-250320:10 Muscle Strength LLE 5 ROM full resist 87-12-565252:10 Transfers assist x 1 93-51-357540:10 Ambulation in room 82-74-533825:10 Balance steady 89-98-390225:10 Bathing Assistance none :45 Eating Assistance none :45 Dressing Assistance none 90-95-089478:45 Toileting Assistance none 29-30-052536:45 Transfer Assistance none :45 Decline Slf Care/Mob no 85-94-913898:45 Phys Cond Stable yes :45 Nutrition normal 13-43-530630:10 Diet regular 77-73-127457:10 Oral Cavity moist and intact :10 Teeth dentures 93-40-745973:10 Dental Hygiene good 92-96-213929:10 Abdomen Appearance flat :10 Abdomen soft 86-20-362245:10 Bowel Sounds present 66-17-390350:10 NG Tube no 28-49-442185:10 Feeding Tube none 26-86-959493:10 Barnes no :10 Cont Bladder Irr no :10 Ostomy no 47-38-098505:10 Stool normal 16-69-075639:10 Urination normal 18-89-616378:10 Quality sym/unlabored 55-37-966907:10 Cough absent :10 Secretions no 00-00-692508:10 Breath Sounds RUL clear 42-27-572616:10 Breath Sounds RML clear 03-48-314104:10 Breath Sounds RLL clear :10 Breath Sounds DARIANA clear :10 Breath Sounds LLL clear 63-01-071100:10 Airway natural :10 Chest Tube no 85-54-189228:10 Oxygen no 72-20-837178:00 C-PAP no 31-34-723938:10 BI-PAP no 66-97-709651:10 Temp >100.4 no 80-53-020626:10 Temp <96.8 no 11-83-224629:10 Chills with rigors no :10 HR > 90bpm no 00-80-991867:10 Respirations > 20 no 78-10-921298:10 Systolic <90 no 12-42-398683:10 headache stiff neck no 64-62-562222:10 WBC > 06962 no 17-65-032192:10 WBC < 4000 no 34-39-214785:10 Rapid Resp no 41-99-991898:10 IV Site Location R hand :00 IV Type peripheral 18-40-971933:10 IV Site Information discontinued :00 IV Site Start Attmpt 1 times 91-04-331539:35 IV Site Rishi 20 82-90-496182:10 IV Site Appearance WNL 72-88-385381:10 IV Site Color clear :10 IV Site Patent yes :10 Dressing Type occlusive 39-44-352571:10 Nursing Note doing excellent; no pain-didn't even get script filled; no questions; care was excellent 13-73-772633:53 Cognitive Status Finding Observation Time Learning Ability comprehends well :00 Neurological no :00 Psychological no :00 Physical no :00 Hearing no :00 Inspector Line Needed no :00 Sign Language no :00 Emotional no :00 Vision yes :00 Laguage no :00 Financial no :00 Vital signs Type Value Date Respiration Rate 18breaths per minute :00 Pulse 77beats per minute :00 Oxygen Saturation 96% :00 BP Systolic 123mmHg :00 BP Diastolic 65mmHg :00 Temperature 97.3F :09 Height 66inches 69-86-928149:36 Weight 150LB 04-59-573858:36 Social history Type Value Smoking Status CURRENT EVERY DAY SMOKER Treatment Plan No treatment plan text is available for this visit. Hospital discharge instructions Discharge Date/Time 05/08/14 1320 Accompanied By Relationship spouse/signif other Dismissal Condition good Disposition on DC home Valuables yes Valuable Type billfold/purse Valuables Returned T patient DC Inst/Educ Give yes Exit Care Educ Given yes Med/Side Effects Rev yes PNE Vac 2014 Flu Vac 2014 Tetanus Vac Unknown Diet Explained yes Follow up appt appt made (specify) Follow Up Appt D/T 05/19/14 1440
--- OUTSIDE RECORDS SUMMARY | 2016-11-22 15:36 | XMS REPORT ---
Author Author [facility] Medical Staff Organization [facility] [email or web address] [facility] Address [address], [place] [address] Phone [phone] Summary purpose TRANSITION OF CARE AUTO GENERATION [...] Allergen Category Ingredient Status Reaction Severity Onset Kaxbmfd-Ifj-Ybh Reductase Inhibitors Drug Allergy Uwebpuy-Vte-Jow Reductase Inhibitors Confirmed or Verified BACK PAIN [...]
--- OUTSIDE RECORDS SUMMARY | 2016-11-22 15:36 | XMS REPORT | Clinical Summary ---
Author Author Admin, MARGE Organization [facility] Address Unknown Phone Unavailable Allergies, Adverse [...] 1 tablet by mouth daily CITALOPRAM HYDROBROMIDE 28583883771 Active Felisa Daphney RMMarva Active CLARITIN 5 MG ORAL CHEW 1 tab po q day LORATADINE 12368992004 Active Felisa Daphney RMA Active VIIBRYD STARTER PACK 10 & 20 MG ORAL KIT 1 po qd as directed 2015 VILAZODONE HCL 38299873797 No Longer Active Felisa Daphney RMA Active HYDROXYZINE HCL 25 MG TAB 1 po qHS PRN Insomnia HYDROXYZINE HCL 55299294110 Active Capo Poe MD Active LISINOPRIL 10 MG TABS 1 tablet by mouth daily LISINOPRIL 51555250176 Active Capo Poe MD Active LORTAB 7.5-325 MG ORAL TABS 1 po q 6 hr prn pain HYDROCODONE- ACETAMINOPHEN 11627905099 No Longer Active Capo Poe MD Active FLOMAX 0.4 MG CAPS Take one by mouth daily TAMSULOSIN HCL 21408908715 No Longer Active Capo Poe MD Active TRIAMCINOLONE ACETONIDE 0.1 % CREA Apply to affected areas TID for up to 2 weeks TRIAMCINOLONE ACETONIDE 09465174313 Active Capo Poe MD Active NICOTINE 14 MG/24HR TRANS PT24 Apply/Change q 24hr NICOTINE 91207056483 No Longer Active Capo Poe MD Active TRAMADOL HCL 50 MG TABS 1-2 tablets every 6 hours as needed for pain TRAMADOL HCL 00382400243 No Longer Active Capo Poe MD Active SERTRALINE HCL 100 MG ORAL TABS take 1 tab daily SERTRALINE HCL 18870663856 No Longer Active Capo Poe MD Active LISINOPRIL-HYDROCHLOROTHIAZIDE 10-12.5 MG TABS 0.5 tab by mouth daily LISINOPRIL-HYDROCHLOROTHIAZIDE 76670922968 No Longer Active Capo Poe MD Active OMEPRAZOLE 20 MG CPDR 1 tablet by mouth daily OMEPRAZOLE 89849602882 Active Capo Poe MD Active WELLBUTRIN SR 150 MG ORAL [id number] 1 po BID BUPROPION HCL 58769818479 No Longer Active Capo Poe MD Active MIRALAX PACK 1 po qd PRN Constipation POLYETHYLENE GLYCOL 3350 86932103665 Active Capo Poe MD Active DULERA 100-5 MCG/ACT AERO 2 puffs BID MOMETASONE FURO- FORMOTEROL FUM 41366756476 Active Capo Poe MD Active ZOLOFT 100 MG TABS 1 po daily SERTRALINE HCL 03117367640 No Longer Active Zoran Arzola MD Active FERROUS SULFATE 325 (65 FE) MG TABS 1 tablet by mouth daily FERROUS SULFATE 25165367720 No Longer Active Capo Poe MD Active HYDROCODONE-ACETAMINOPHEN 7.5-300 MG TABS take one every six hours HYDROCODONE-ACETAMINOPHEN 48509133480 No Longer Active Capo Poe MD Active TRIAMCINOLONE ACETONIDE 0.1 % OINT Apply to affected areas TID for up to 2 weeks TRIAMCINOLONE ACETONIDE 05749697860 No Longer Active Joe Vargas RN Active FERROUS SULFATE 325 (65 FE) MG TABS Take one by mouth daily FERROUS SULFATE 50264850824 No Longer Active Capo Poe MD Active TRIAMCINOLONE ACETONIDE 0.1 % OINT Apply to affected areas TID for up to 2 weeks TRIAMCINOLONE ACETONIDE 96046623294 No Longer Active Capo Poe MD Active ADULT ASPIRIN LOW STRENGTH 81 MG TBDP qd ASPIRIN 11016039820 Active Zoran Azrola MD Active ALEVE 220 MG TAB prn NAPROXEN SODIUM 76979422752 Active Capo Poe MD Active MACROBID 100 MG CAP 1 cap by mouth twice daily NITROFURANTOIN MONOHYD MACRO 85734553934 No Longer Active Dona Becker Active AZITHROMYCIN 250 MG TABS 2 po qd x 1 day, then 1 po qd x 4 days AZITHROMYCIN 47910710238 No Longer Active Capo Poe MD Active FISH OIL 500 MG CAPS by mouth twice a day OMEGA-3 FATTY ACIDS 67940773338 Active Capo Poe MD Active FLAXSEED OIL 1000 MG CAPS Take two by mouth daily FLAXSEED (LINSEED) 13382724838 Active Zoran Arzola MD Active RED YEAST RICE 600 MG CAPS Take two by mouth daily RED YEAST RICE EXTRACT 99015997820 Active Zoran Arzola MD Active MULTIVITAMINS CAPS Take one by mouth daily MULTIPLE VITAMIN 53543119534 Active Zoran Arzola MD Active ICAPS MV TABS 2 po daily MULTIPLE VITAMINS-MINERALS 44271742093 Active Jam Arnold DO Active MACROBID 100 MG CAP 1 cap by mouth twice daily MACROBID 100 MG CAP 5094234 NITROFURANTOIN MONOHYD MACRO Inactive FERROUS SULFATE 325 (65 FE) MG TABS Take one by mouth daily FERROUS SULFATE 325 (65 FE) MG TABS 864584 FERROUS SULFATE Inactive HYDROCODONE-ACETAMINOPHEN 7.5-300 MG TABS take one every six hours HYDROCODONE-ACETAMINOPHEN 7.5-300 MG TABS 971594 HYDROCODONE- ACETAMINOPHEN Inactive FERROUS SULFATE 325 (65 FE) MG TABS 1 tablet by mouth daily FERROUS SULFATE 325 (65 FE) MG TABS 445201 FERROUS SULFATE Inactive ZOLOFT 100 MG TABS 1 po daily ZOLOFT 100 MG TABS 213989 SERTRALINE HCL Inactive SERTRALINE HCL 100 MG ORAL TABS take 1 tab daily SERTRALINE HCL 100 MG ORAL TABS 863358 SERTRALINE HCL Inactive TRAMADOL HCL 50 MG TABS 1-2 tablets every 6 hours as needed for pain TRAMADOL HCL 50 MG TABS 091850 TRAMADOL HCL Inactive NICOTINE 14 MG/24HR TRANS PT24 Apply/Change q 24hr NICOTINE 14 MG/24HR TRANS PT24 368668 NICOTINE Inactive FLOMAX 0.4 MG CAPS Take one by mouth daily FLOMAX 0.4 MG CAPS 067293 TAMSULOSIN HCL Inactive LORTAB 7.5-325 MG ORAL TABS 1 po q 6 hr prn pain LORTAB 7.5- 325 MG ORAL TABS 717906 HYDROCODONE-ACETAMINOPHEN Inactive VIIBRYD STARTER PACK 10 & 20 MG ORAL KIT 1 po qd as directed 2015 VIIBRYD STARTER PACK 10 & 20 MG ORAL KIT VILAZODONE HCL Inactive AZITHROMYCIN 250 MG TABS 2 po qd x 1 day, then 1 po qd x 4 days AZITHROMYCIN 250 MG TABS 5929775 AZITHROMYCIN Inactive TRIAMCINOLONE ACETONIDE 0.1 % OINT Apply to affected areas TID for up to 2 weeks TRIAMCINOLONE ACETONIDE 0.1 % OINT 8308607 TRIAMCINOLONE ACETONIDE Inactive TRIAMCINOLONE ACETONIDE 0.1 % OINT Apply to affected areas TID for up to 2 weeks TRIAMCINOLONE ACETONIDE 0.1 % OINT 8734381 TRIAMCINOLONE ACETONIDE Inactive Advance Directives Directive Description [...] E&M - 3141-9 151 [lb_av] Weight Measured Diagnostic Results Date Name Value Unit Range Description Lab Report: Basic Metabolic Panel - Chemistry sodium, serum 139 mmol/L 358-946 6564/07/30 potassium, serum 4.7 mmol/L 3.5-5.2 chloride, serum [...] mg/g mg/g{creat} 0-29 sodium, serum 138 mmol/L 232-063 3596/03/18 carbon dioxide, venous blood 25.5 mmol/L 21.0-32.0 potassium, serum 4.6 mmol/L 3.5-5.2 chloride, serum 101 mmol/L 98-107 blood glucose 129 mg/dL 65-110 urea nitrogen, blood 20 mg/dL 7-18 creatinine, serum 1.87 mg/dL 0.55-1.30 alanine aminotransferase (SGPT), serum 26 U/L 12-78 aspartate aminotransferase (SGOT), serum 20 U/L 15-37 calcium, serum 8.8 mg/dL 8.5-10.1 bilirubin, serum, total 0.40 mg/dL 0.00-1.00 cholesterol, serum 251 mg/dL 028-767 1160/03/18 triglyceride, serum, fasting 135 mg/dL 30-200 HDL [...] 0.00-4.00 prostate specific antigen 0.80 ng/mL 0.00-4.00 Encounters Code Encounter Date Provider Facility CPT-77675 Level 4 Est. Patient 13:44:30 CDT Capo Poe MD [facility] CPT-56808 Level 3 Est. Patient 14:59:32 [employer]ILDCARE WORKER Capo Poe MD [facility] CPT-81792 Level 4 Est. Patient 10:46:15 [employer]ILDC[employer] WORKER Capo Poe MD [facility] CPT-42060 Level 3 Est. Patient 11:00:53 CDT Capo Poe MD [facility] CPT-84977 Level 3 Est. Patient 09:39:35 CDT Capo Poe MD [facility] CPT-13315 Level 3 Est. Patient 09:27:01 CDT Capo Poe MD [facility] CPT-75030 Level 3 Est. Patient 18:37:08 CDT Zoran Arzola MD [facility] CPT-25956 Level 3 Est. Patient 15:00:28 CDT Capo Poe MD [facility] CPT-76722 Level 3 Est. Patient 08:20:19 CDT Zoran Arzola MD [facility] CPT-01138 Level 3 Est. Patient 09:22:21 CDT Capo Poe MD [facility] CPT-80796 Level 4 Est. Patient 10:21:30 CHILDCARE WORKER Capo Poe MD [facility] CPT-61886 Level 3 Est. Patient 17:08:51 CHILDCARE WORKER Zoran Arzola MD [facility] CPT-73916 Level 4 Est. Patient 09:44:42 CDT Capo Poe MD [facility] CPT-73494 Level 4 Est. Patient 10:39:29 CDT Capo Poe MD [facility] CPT-06848 Level 3 Est. Patient 17:45:23 CDT Zoran Arzola MD [facility] CPT-15630 Level 4 Est. Patient 08:50:44 CDT Capo Poe MD [facility] CPT-64181 Level 3 Est. Patient 10:39:51 CHILDCARE WORKER Capo Poe MD [facility] CPT-38546 Level 4 Est. Patient 09:44:24 CHILDCARE WORKER Capo Poe MD [facility] CPT-96357 Level 3 Est. Patient 14:48:42 CHILDCARE WORKER Zoran Arzola MD [facility] CPT-07055 Level 4 Est. Patient 10:24:02 CDT Capo Poe MD [facility] CPT-88384 Level 3 Est. Patient 15:42:00 CDT Maya DUKES [facility] CPT-07183 Level 4 Est. Patient 13:34:15 CDT Capo Poe MD [facility] CPT-24420 Level 3 Est. Patient 15:32:10 CHILDCARE WORKER Zoran Arzola MD [facility] CPT-44691 Level 3 New Patient 17:17:19 CHILDCARE WORKER Zoran Arzola MD [facility] CPT-82755 Level 4 Est. Patient 10:25:01 CHILDCARE WORKER Capo Poe MD [facility] CPT-02413 Level 3 Est. Patient 10:10:42 CDT Zoran Arzola MD [facility] CPT-40983 Level 3 Est. Patient 22:30:02 CDT Zoran Arzola MD [facility] CPT-83464 Level 4 Est. Patient 09:54:20 CDT Capo Poe MD [facility] CPT-01784 Level 3 Est. Patient 10:48:30 CDT Capo Poe MD [facility] CPT-51009 Level 3 Est. Patient 11:24:45 CDT Capo Poe MD [facility] CPT-13694 Level 3 Est. Patient 15:23:48 CHILDCARE WORKER Capo Poe MD [facility] CPT-24520 Level 3 Est. Patient 15:10:03 CHILDCARE WORKER Capo Poe MD [facility] CPT-82606 Level 3 Est. Patient 16:18:40 CDT Zoran Arzola MD [facility] Procedures Code Procedure Name Date Entry Date Standard Description CPT-99479 Venipuncture Draw Fee 09:46:29 CDT CPT-99469 Venipuncture Draw Fee 14:30:06 CDT CPT-66406 Venipuncture Draw Fee 10:58:22 CDT CPT-93766 Abd single AP View 08:32:00 CDT CPT-34202 Postop F/U Visit 21:13:08 CDT CPT-36207 Abd single AP View 15:50:24 CDT CPT-40463 Cystoscopy W/rem FB 15:21:28 CDT CPT-37271 Abd single AP View 14:06:45 CDT CPT-70539 Postop F/U Visit 09:48:32 CDT CPT-40439 Abd single AP View 13:58:26 CDT CPT-10294 Hip comp min 2V 10:27:18 CHILDCARE WORKER CPT-27324 Urine Dip (Floor Use Only) 13:41:01 [employer]ILDCARE WORKER CPT-01130 Postop F/U Visit 11:17:48 CDT CPT-LR Lesion Removal 11:50:22 CDT CPT-OV Office Visit 11:50:22 CDT CPT-52202 Pneumovax 23 10:55:48 CDT CPT-74589 Administration single or combination vaccine inc oral 10 :55:48 CDT CPT-Cryo Cryotherapy 11:18:11 CDT CPT-OV Office Visit 11:18:11 CDT CPT-50203 LS spine AP and Lat 09:05:22 CDT CPT-46896 Bladder Scan 15:42:00 CDT CPT-75914 Cystoscopy 15:42:00 CDT CPT-OV Office Visit 16:37:19 CHILDCARE WORKER CPT-72518 Bladder Scan 15:32:10 [employer]ILDCARE WORKER CPT-62297 Cystoscopy 15:32:10 CHILDCARE WORKER CPT-87357 Abd single AP View 14:05:59 [employer]ILDCARE WORKER CPT-36333 Pill cam small bowel 09:48:39 [employer]ILDCARE WORKER CPT-98712 Urine Dip (Floor Use Only) 17:17:19 [employer]ILDCARE WORKER CPT-96220 Bladder Scan 17:17:19 CHILDCARE WORKER CPT-OV Office Visit 11:50:26 CHILDCARE WORKER CPT-46029 Bladder Scan 10:10:42 CDT CPT-36807 Venipuncture Draw Fee 09:14:04 CDT CPT-75821 Chest 2V Frontal and Lat 10:10:49 CDT CPT-27626 LS spine comp w obliq 11:50:11 CDT CPT-22485 Venipuncture Draw Fee 08:52:57 [employer]ILDCARE WORKER CPT-74258 Cystoscopy W/rem FB 18:37:28 CDT CPT-59271 Abd single AP View 16:18:40 CDT CPT-62620 Abd compl w upright 17:30:59 CDT
--- OUTSIDE RECORDS SUMMARY | 2016-11-22 15:38 | XMS REPORT | Clinical Summary ---
Author Author Admin, MARGE Organization [facility] Address Unknown Phone Unavailable Allergies, Adverse Reactions, Alerts Allergy Name Reaction Description Start Date Severity Status Provider MACROBID Rash, itching Critical Active Dona Becker MORPHINE Critical Active Zroan Arzola MD STATINS Critical Active Jam Arnold [...] kidney CALCULUS OF KIDNEY 592.0 Resolved Capo oPe MD Calculus of kidney URETERAL CALCULUS 592.1 [...] Poe MD URINARY FREQUENCY ICD-788.41 Inactive Capo oPe MD COUGH ICD-786.2 Inactive Capo Poe MD [...] Inactive Capo Poe MD UTI ICD-599.0 Inactive Caop Poe MD Hematuria ICD-599.70 Clyde Poe MD [...] 1 po q6hr PRN Itching HYDROXYZINE HCL 97013143884 Active Capo Poe MD Active TRIAMCINOLONE ACETONIDE 0.1 % CREA Apply to affected areas TID for up to 2 weeks TRIAMCINOLONE ACETONIDE 11494210760 Active Capo Poe MD Active NICOTINE 14 MG/24HR TRANS PT24 Apply/Change q 24hr NICOTINE 79013461232 No Longer Active Capo Poe MD Active TRAMADOL HCL 50 MG TABS 1-2 tablets every 6 hours as needed for pain TRAMADOL HCL 73381236294 No Longer Active Capo Poe MD Active SERTRALINE HCL 100 MG ORAL TABS take 1 tab daily SERTRALINE HCL 04030598606 No Longer Active Capo Poe MD Active LISINOPRIL-HYDROCHLOROTHIAZIDE 10-12.5 MG TABS 0.5 tab by mouth daily LISINOPRIL-HYDROCHLOROTHIAZIDE 17456854209 Active Capo Poe MD Active OMEPRAZOLE 20 MG CPDR 1 tablet by mouth daily OMEPRAZOLE 45016875356 Active Capo Poe MD Active WELLBUTRIN SR 150 MG ORAL ZF40G-DAY 1 po BID BUPROPION HCL 53939471924 Active Caop Poe MD Active LORTAB 7.5-325 MG ORAL TABS 1 po q 6 hr prn pain HYDROCODONE- ACETAMINOPHEN 20374478327 Active Capo Poe MD Active FLOMAX 0.4 MG CAPS Take one by mouth daily TAMSULOSIN HCL 23788698876 Active Capo Poe MD Active MIRALAX PACK 1 po qd PRN Constipation POLYETHYLENE GLYCOL 3350 40076463379 Active Capo Poe MD Active DULERA 100-5 MCG/ACT AERO 2 puffs BID MOMETASONE FURO- FORMOTEROL FUM 06146967670 Active Capo Poe MD Active ZOLOFT 100 MG TABS 1 po daily SERTRALINE HCL 37964456646 No Longer Active Zoran Arzola MD Active FERROUS SULFATE 325 (65 FE) MG TABS 1 tablet by mouth daily FERROUS SULFATE 25252425200 No Longer Active Capo Poe MD Active HYDROCODONE-ACETAMINOPHEN 7.5-300 MG TABS take one every six hours HYDROCODONE-ACETAMINOPHEN 04019566525 No Longer Active Capo Poe MD Active TRIAMCINOLONE ACETONIDE 0.1 % OINT Apply to affected areas TID for up to 2 weeks TRIAMCINOLONE ACETONIDE 25917464088 No Longer Active Joe Vargas RN Active FERROUS SULFATE 325 (65 FE) MG TABS Take one by mouth daily FERROUS SULFATE 84419448461 No Longer Active Capo Poe MD Active TRIAMCINOLONE ACETONIDE 0.1 % OINT Apply to affected areas TID for up to 2 weeks TRIAMCINOLONE ACETONIDE 82729770200 No Longer Active Capo Poe MD Active ADULT ASPIRIN LOW STRENGTH 81 MG TBDP qd ASPIRIN 98373452081 Active Zoran Arzola MD Active ALEVE 220 MG TAB prn NAPROXEN SODIUM 88496933339 Active Capo Poe MD Active MACROBID 100 MG CAP 1 cap by mouth twice daily NITROFURANTOIN MONOHYD MACRO 03799616666 No Longer Active Dona Becker Active AZITHROMYCIN 250 MG TABS 2 po qd x 1 day, then 1 po qd x 4 days AZITHROMYCIN 66207773029 No Longer Active Capo Poe MD Active FISH OIL 500 MG CAPS by mouth twice a day OMEGA-3 FATTY ACIDS 78160941297 Active Capo Poe MD Active FLAXSEED OIL 1000 MG CAPS Take two by mouth daily FLAXSEED (LINSEED) 90828783571 Active Zoran Arzola MD Active RED YEAST RICE 600 MG CAPS Take two by mouth daily RED YEAST RICE EXTRACT 94181039414 Active Zoran Arzola MD Active MULTIVITAMINS CAPS Take one by mouth daily MULTIPLE VITAMIN 60106123524 Active Zoran Arzola MD Active ICAPS MV TABS 2 po daily MULTIPLE VITAMINS-MINERALS 21541094204 Active Jam Arnold DO Active MACROBID 100 MG CAP 1 cap by mouth twice daily MACROBID 100 MG CAP 2498683 NITROFURANTOIN MONOHYD MACRO Inactive FERROUS SULFATE 325 (65 FE) MG TABS Take one by mouth daily FERROUS SULFATE 325 (65 FE) MG TABS 223967 FERROUS SULFATE Inactive HYDROCODONE-ACETAMINOPHEN 7.5-300 MG TABS take one every six hours HYDROCODONE-ACETAMINOPHEN 7.5-300 MG TABS 282081 HYDROCODONE- ACETAMINOPHEN Inactive FERROUS SULFATE 325 (65 FE) MG TABS 1 tablet by mouth daily FERROUS SULFATE 325 (65 FE) MG TABS 808130 FERROUS SULFATE Inactive ZOLOFT 100 MG TABS 1 po daily ZOLOFT 100 MG TABS 011524 SERTRALINE HCL Inactive SERTRALINE HCL 100 MG ORAL TABS take 1 tab daily SERTRALINE HCL 100 MG ORAL TABS 837862 SERTRALINE HCL Inactive TRAMADOL HCL 50 MG TABS 1-2 tablets every 6 hours as needed for pain TRAMADOL HCL 50 MG TABS 161186 TRAMADOL HCL Inactive NICOTINE 14 MG/24HR TRANS PT24 Apply/Change q 24hr NICOTINE 14 MG/24HR TRANS PT24 907951 NICOTINE Inactive AZITHROMYCIN 250 MG TABS 2 po qd x 1 day, then 1 po qd x 4 days AZITHROMYCIN 250 MG TABS 0836697 AZITHROMYCIN Inactive TRIAMCINOLONE ACETONIDE 0.1 % OINT Apply to affected areas TID for up to 2 weeks TRIAMCINOLONE ACETONIDE 0.1 % OINT 2603002 TRIAMCINOLONE ACETONIDE Inactive TRIAMCINOLONE ACETONIDE 0.1 % OINT Apply to affected areas TID for up to 2 weeks TRIAMCINOLONE ACETONIDE 0.1 % OINT 5514513 TRIAMCINOLONE ACETONIDE Inactive Advance Directives Directive Description [...] pressure, diastolic - 8462-4 64 mm[Hg] BP asutin blood pressure, systolic - 8480-6 104 mm[Hg] [...] Panel - Chemistry sodium, serum 139 mmol/L 995-198 6700/07/30 potassium, serum 4.7 mmol/L 3.5-5.2 chloride, serum 101 mmol/L 98-107 carbon dioxide, venous blood 34.8 mmol/L 21.0-32.0 blood glucose 124 mg/dL 65-110 calcium, serum 8.9 mg/dL 8.5-10.1 urea nitrogen, blood 18 mg/dL 7-18 creatinine, serum 1.40 mg/dL 0.60-1.30 Lab Report: Comp. Metabolic Panel, Lipid Panel, HGBA1C, CBC, MICROALB/CR ... - Chemistry sodium, serum 138 mmol/L 670-113 3220/03/18 carbon dioxide, venous blood 25.5 mmol/L 21.0-32.0 potassium, serum 4.6 mmol/L 3.5-5.2 chloride, serum 101 mmol/L 98-107 blood glucose 129 mg/dL 65-110 urea nitrogen, blood 20 mg/dL 7-18 creatinine, serum 1.87 mg/dL 0.55-1.30 alanine aminotransferase (SGPT), serum 26 U/L 12-78 aspartate aminotransferase (SGOT), serum 20 U/L 15-37 calcium, serum 8.8 mg/dL 8.5-10.1 bilirubin, serum, total 0.40 mg/dL 0.00-1.00 cholesterol, serum 251 mg/dL 284-476 4669/03/18 triglyceride, serum, fasting 135 mg/dL 30-200 HDL [...] negative Encounters Code Encounter Date Provider Facility CPT-65285 Level 3 Est. Patient 14:59:32 CEMENT PATCHER Capo Poe MD [facility] CPT-81458 Level 4 Est. Patient 10:46:15 CEMENT PATCHER Capo Poe MD [facility] CPT-75958 Level 3 Est. Patient 11:00:53 CDT Capo Poe MD [facility] CPT-53221 Level 3 Est. Patient 09:39:35 CDT Capo Poe MD [facility] CPT-06557 Level 3 Est. Patient 09:27:01 CDT Capo Poe MD [facility] CPT-85630 Level 3 Est. Patient 18:37:08 CDT Zoran Arzola MD [facility] CPT-79324 Level 3 Est. Patient 15:00:28 CDT Capo Poe MD [facility] CPT-24573 Level 3 Est. Patient 08:20:19 CDT Zoran Arzola MD [facility] CPT-86138 Level 3 Est. Patient 09:22:21 CDT Capo Poe MD [facility] CPT-51903 Level 4 Est. Patient 10:21:30 CEMENT PATCHER Capo Poe MD [facility] CPT-62697 Level 3 Est. Patient 17:08:51 CEMENT PATCHER Zoran Arzola MD [facility] CPT-13326 Level 4 Est. Patient 09:44:42 CDT Capo Poe MD [facility] CPT-71974 Level 4 Est. Patient 10:39:29 CDT Capo Poe MD [facility] CPT-22741 Level 3 Est. Patient 17:45:23 CDT Zoran Arzola MD [facility] CPT-42540 Level 4 Est. Patient 08:50:44 CDT Capo Poe MD [facility] CPT-29935 Level 3 Est. Patient 10:39:51 CEMENT PATCHER Capo Poe MD [facility] CPT-39545 Level 4 Est. Patient 09:44:24 CEMENT PATCHER Capo Poe MD [facility] CPT-21966 Level 3 Est. Patient 14:48:42 CEMENT PATCHER Zoran Arzola MD [facility] CPT-39001 Level 4 Est. Patient 10:24:02 CDT Capo Poe MD [facility] CPT-21686 Level 3 Est. Patient 15:42:00 CDT Maya Brownlee ERNST [facility] CPT-48357 Level 4 Est. Patient 13:34:15 CDT Capo Poe MD [facility] CPT-09769 Level 3 Est. Patient 15:32:10 CEMENT PATCHER Zoran Arzola MD [facility] CPT-82288 Level 3 New Patient 17:17:19 CEMENT PATCHER Zoran Arzola MD [facility] CPT-17914 Level 4 Est. Patient 10:25:01 CEMENT PATCHER Capo Poe MD [facility] CPT-01600 Level 3 Est. Patient 10:10:42 CDT Zoran Arzola MD [facility] CPT-64100 Level 3 Est. Patient 22:30:02 CDT Zoran Arzola MD [facility] CPT-79479 Level 4 Est. Patient 09:54:20 CDT Capo Poe MD [facility] CPT-56604 Level 3 Est. Patient 10:48:30 CDT Capo Poe MD [facility] CPT-03161 Level 3 Est. Patient 11:24:45 CDT Capo Poe MD [facility] CPT-41551 Level 3 Est. Patient 15:23:48 CEMENT PATCHER Capo Poe MD [facility] CPT-34888 Level 3 Est. Patient 15:10:03 CEMENT PATCHER Capo Poe MD [facility] CPT-07363 Level 3 Est. Patient 16:18:40 CDT Zoran Arzola MD [facility] Procedures Code Procedure Name Date Entry Date Standard Description CPT-61715 Venipuncture Draw Fee 09:46:29 CDT CPT-95214 Venipuncture Draw Fee 14:30:06 CDT CPT-39627 Venipuncture Draw Fee 10:58:22 CDT CPT-08639 Abd single AP View 08:32:00 CDT CPT-23663 Postop F/U Visit 21:13:08 CDT CPT-52079 Abd single AP View 15:50:24 CDT CPT-71991 Cystoscopy W/rem FB 15:21:28 CDT CPT-24649 Abd single AP View 14:06:45 CDT CPT-48573 Postop F/U Visit 09:48:32 CDT CPT-17765 Abd single AP View 13:58:26 CDT CPT-83366 Hip comp min 2V 10:27:18 CEMENT PATCHER CPT-64986 Urine Dip (Floor Use Only) 13:41:01 CEMENT PATCHER CPT-05663 Postop F/U Visit 11:17:48 CDT CPT-LR Lesion Removal 11:50:22 CDT CPT-OV Office Visit 11:50:22 CDT CPT-00084 Pneumovax 23 10:55:48 CDT CPT-94173 Administration single or combination vaccine inc oral 10 :55:48 CDT CPT-Cryo Cryotherapy 11:18:11 CDT CPT-OV Office Visit 11:18:11 CDT CPT-76804 LS spine AP and Lat 09:05:22 CDT CPT-35299 Bladder Scan 15:42:00 CDT CPT-68811 Cystoscopy 15:42:00 CDT CPT-OV Office Visit 16:37:19 CEMENT PATCHER CPT-34016 Bladder Scan 15:32:10 CEMENT PATCHER CPT-42653 Cystoscopy 15:32:10 CEMENT PATCHER CPT-29795 Abd single AP View 14:05:59 CEMENT PATCHER CPT-14065 Pill cam small bowel 09:48:39 CEMENT PATCHER CPT-20514 Urine Dip (Floor Use Only) 17:17:19 CEMENT PATCHER CPT-73605 Bladder Scan 17:17:19 CEMENT PATCHER CPT-OV Office Visit 11:50:26 CEMENT PATCHER CPT-70830 Bladder Scan 10:10:42 CDT CPT-70555 Venipuncture Draw Fee 09:14:04 CDT CPT-52853 Chest 2V Frontal and Lat 10:10:49 CDT CPT-56324 LS spine comp w obliq 11:50:11 CDT CPT-57608 Venipuncture Draw Fee 08:52:57 CEMENT PATCHER CPT-82343 Cystoscopy W/rem FB 18:37:28 CDT CPT-58305 Abd single AP View 16:18:40 CDT CPT-11877 Abd compl w upright 17:30:59 CDT
--- OUTSIDE RECORDS SUMMARY | 2016-11-22 15:39 | XMS REPORT | Clinical Summary ---
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 [...] MD 2011 BRONCHITIS, ACUTE ICD-466.0 Inactive Capo Peo MD URINARY FREQUENCY ICD-788.41 Inactive Capo Poe [...] MG TABS 1 daily for infection LEVOFLOXACIN 06121585479 Active Leanna Baker APRN Active AZITHROMYCIN 250 MG ORAL TABS 2 po qd x 1, then 1 po qd x 4 AZITHROMYCIN 51666907858 Active Capo Poe MD Active PREDNISONE 20 MG ORAL TABS 2 po qd x 5 days PREDNISONE 45435196676 No Longer Active Capo Poe MD Active CARAFATE 1 GM ORAL TABS 1 tid SUCRALFATE 64764608214 Active Capo Poe MD Active RANITIDINE HCL 150 MG ORAL TABS 1 bid RANITIDINE HCL 68518314253 Active Capo Poe MD Active MULTIVITAMINS CAPS Take one by mouth daily MULTIPLE VITAMIN 41784849863 No Longer Active Capo Poe MD Active LISINOPRIL 10 MG TABS 1 tablet by mouth daily LISINOPRIL 91731400790 No Longer Active Capo Poe MD Active EQL IRON SUPPLEMENT THERAPY 325 MG ORAL TABS 1 tab po twice daily FERROUS SULFATE 64381940657 Active Jasmin Arboledalas RMA Active D ORAL TABS 2000 iu weekly D ORAL TABS Active Capo Poe MD Active CITALOPRAM HYDROBROMIDE 20 MG TABS 1 tablet by mouth daily CITALOPRAM HYDROBROMIDE 75086605139 Active Capo Poe MD Active CLARITIN 5 MG ORAL CHEW 1 tab po q day LORATADINE 43421549617 Active Felisa Daphney RMA Active VIIBRYD STARTER PACK 10 & 20 MG ORAL KIT 1 po qd as directed 2015 VILAZODONE HCL 85902677290 No Longer Active Felisa Daphney RMA Active HYDROXYZINE HCL 25 MG TAB 1 po qHS PRN Insomnia HYDROXYZINE HCL 79053863362 Active Capo Poe MD Active LORTAB 7.5-325 MG ORAL TABS 1 po q 6 hr prn pain HYDROCODONE- ACETAMINOPHEN 89880582665 No Longer Active Capo Poe MD Active FLOMAX 0.4 MG CAPS Take one by mouth daily TAMSULOSIN HCL 15885497265 No Longer Active Capo Poe MD Active TRIAMCINOLONE ACETONIDE 0.1 % CREA Apply to affected areas TID for up to 2 weeks TRIAMCINOLONE ACETONIDE 25699782641 Active Capo Poe MD Active NICOTINE 14 MG/24HR TRANS PT24 Apply/Change q 24hr NICOTINE 67350235536 No Longer Active Capo Poe MD Active TRAMADOL HCL 50 MG TABS 1-2 tablets every 6 hours as needed for pain TRAMADOL HCL 33244535521 No Longer Active Capo Poe MD Active SERTRALINE HCL 100 MG ORAL TABS take 1 tab daily SERTRALINE HCL 91129110694 No Longer Active Capo Poe MD Active LISINOPRIL-HYDROCHLOROTHIAZIDE 10-12.5 MG TABS 0.5 tab by mouth daily LISINOPRIL-HYDROCHLOROTHIAZIDE 13032379540 No Longer Active Capo Poe MD Active OMEPRAZOLE 20 MG CPDR 1 tablet by mouth daily OMEPRAZOLE 52444335714 Active Capo Poe MD Active WELLBUTRIN SR 150 MG ORAL AT32A-MVO 1 po BID BUPROPION HCL 53232463529 No Longer Active Capo Poe MD Active MIRALAX PACK 1 po qd PRN Constipation POLYETHYLENE GLYCOL 3350 11804471788 Active Capo Poe MD Active DULERA 100-5 MCG/ACT AERO 2 puffs BID MOMETASONE FURO- FORMOTEROL FUM 54309676290 Active Capo Poe MD Active ZOLOFT 100 MG TABS 1 po daily SERTRALINE HCL 62778728695 No Longer Active Zoran Arzola MD Active FERROUS SULFATE 325 (65 FE) MG TABS 1 tablet by mouth daily FERROUS SULFATE 10552340536 No Longer Active Capo Poe MD Active HYDROCODONE-ACETAMINOPHEN 7.5-300 MG TABS take one every six hours HYDROCODONE-ACETAMINOPHEN 68597935442 No Longer Active Capo Poe MD Active TRIAMCINOLONE ACETONIDE 0.1 % OINT Apply to affected areas TID for up to 2 weeks TRIAMCINOLONE ACETONIDE 65440904095 No Longer Active Joe Vargas RN Active FERROUS SULFATE 325 (65 FE) MG TABS Take one by mouth daily FERROUS SULFATE 41056846223 No Longer Active Capo Poe MD Active TRIAMCINOLONE ACETONIDE 0.1 % OINT Apply to affected areas TID for up to 2 weeks TRIAMCINOLONE ACETONIDE 06377619806 No Longer Active Capo Poe MD Active ADULT ASPIRIN LOW STRENGTH 81 MG TBDP qd ASPIRIN 72414725997 Active Zoran Arzola MD Active ALEVE 220 MG TAB prn NAPROXEN SODIUM 98150669587 Active Capo Poe MD Active MACROBID 100 MG CAP 1 cap by mouth twice daily NITROFURANTOIN MONOHYD MACRO 38785798852 No Longer Active Dona Becker Active AZITHROMYCIN 250 MG TABS 2 po qd x 1 day, then 1 po qd x 4 days AZITHROMYCIN 96138314658 No Longer Active Capo Poe MD Active FISH OIL 500 MG CAPS by mouth twice a day OMEGA-3 FATTY ACIDS 64888183649 Active Capo Poe MD Active FLAXSEED OIL 1000 MG CAPS Take two by mouth daily FLAXSEED (LINSEED) 92963818781 Active Zoran Arzola MD Active RED YEAST RICE 600 MG CAPS Take two by mouth daily RED YEAST RICE EXTRACT 67903754212 Active Zoran Arzola MD Active ICAPS MV TABS 2 po daily MULTIPLE VITAMINS-MINERALS 62604592442 Active Jam Arnold DO Active MACROBID 100 MG CAP 1 cap by mouth twice daily MACROBID 100 MG CAP 9879125 NITROFURANTOIN MONOHYD MACRO Inactive FERROUS SULFATE 325 (65 FE) MG TABS Take one by mouth daily FERROUS SULFATE 325 (65 FE) MG TABS 845783 FERROUS SULFATE Inactive HYDROCODONE-ACETAMINOPHEN 7.5-300 MG TABS take one every six hours HYDROCODONE-ACETAMINOPHEN 7.5-300 MG TABS 224001 HYDROCODONE- ACETAMINOPHEN Inactive FERROUS SULFATE 325 (65 FE) MG TABS 1 tablet by mouth daily FERROUS SULFATE 325 (65 FE) MG TABS 311449 FERROUS SULFATE Inactive ZOLOFT 100 MG TABS 1 po daily ZOLOFT 100 MG TABS 409556 SERTRALINE HCL Inactive SERTRALINE HCL 100 MG ORAL TABS take 1 tab daily SERTRALINE HCL 100 MG ORAL TABS 769631 SERTRALINE HCL Inactive TRAMADOL HCL 50 MG TABS 1-2 tablets every 6 hours as needed for pain TRAMADOL HCL 50 MG TABS 846940 TRAMADOL HCL Inactive NICOTINE 14 MG/24HR TRANS PT24 Apply/Change q 24hr NICOTINE 14 MG/24HR TRANS PT24 804437 NICOTINE Inactive FLOMAX 0.4 MG CAPS Take one by mouth daily FLOMAX 0.4 MG CAPS 663080 TAMSULOSIN HCL Inactive LORTAB 7.5-325 MG ORAL TABS 1 po q 6 hr prn pain LORTAB 7.5- 325 MG ORAL TABS 499220 HYDROCODONE-ACETAMINOPHEN Inactive VIIBRYD STARTER PACK 10 & 20 MG ORAL KIT 1 po qd as directed 2015 VIIBRYD STARTER PACK 10 & 20 MG ORAL KIT VILAZODONE HCL Inactive LISINOPRIL 10 MG TABS 1 tablet by mouth daily LISINOPRIL 10 MG TABS 159111 LISINOPRIL Inactive MULTIVITAMINS CAPS Take one by mouth daily MULTIVITAMINS CAPS MULTIPLE VITAMIN Inactive AZITHROMYCIN 250 MG TABS 2 po qd x 1 day, then 1 po qd x 4 days AZITHROMYCIN 250 MG TABS 9972766 AZITHROMYCIN Inactive TRIAMCINOLONE ACETONIDE 0.1 % OINT Apply to affected areas TID for up to 2 weeks TRIAMCINOLONE ACETONIDE 0.1 % OINT 4875377 TRIAMCINOLONE ACETONIDE Inactive TRIAMCINOLONE ACETONIDE 0.1 % OINT Apply to affected areas TID for up to 2 weeks TRIAMCINOLONE ACETONIDE 0.1 % OINT 8550928 TRIAMCINOLONE ACETONIDE Inactive PREDNISONE 20 MG ORAL TABS 2 po qd x 5 days PREDNISONE 20 MG ORAL TABS 469182 PREDNISONE Inactive Advance Directives Directive Description Start [...] Panel - Chemistry sodium, serum 137 mmol/L 542-950 4161/07/26 carbon dioxide, venous blood 27.3 mmol/L 21.0-32.0 [...] ... - Chemistry sodium, serum 141 mmol/L 088-579 2341/01/27 carbon dioxide, venous blood 29.7 mmol/L 21.0-32.0 [...] % 11.0-15.0 platelet count 214 THOUSAND/UL 10*3/mm3 527-744 0744/03/31 mean platelet volume 8.4 fL 7.5-12.5 Encounters Code Encounter Date Provider Facility CPT-00466 Level 3 Est. Patient 11:31:49 CDT Leanna Baker APRN [facility] CPT-60130 Level 3 Est. Patient 09:44:06 CDT Capo Poe MD [facility] CPT-48379 Level 4 Est. Patient 09:26:11 MERCHANDISE PLANNING MANAGER Capo Poe MD [facility] CPT-02663 Level 4 Est. Patient 08:53:08 CDT Capo Poe MD [facility] CPT-77505 Level 4 Est. Patient 10:22:57 CDT Capo Poe MD [facility] CPT-70079 Level 4 Est. Patient 13:44:30 CDT Capo Poe MD [facility] CPT-99960 Level 3 Est. Patient 14:59:32 MERCHANDISE PLANNING MANAGER Capo Poe MD [facility] CPT-10055 Level 4 Est. Patient 10:46:15 MERCHANDISE PLANNING MANAGER Capo Poe MD [facility] CPT-73581 Level 3 Est. Patient 11:00:53 CDT Capo Poe MD [facility] CPT-97505 Level 3 Est. Patient 09:39:35 CDT Capo Poe MD [facility] CPT-62623 Level 3 Est. Patient 09:27:01 CDT Capo Poe MD [facility] CPT-34420 Level 3 Est. Patient 18:37:08 CDT Zoran Arzola MD [facility] CPT-85360 Level 3 Est. Patient 15:00:28 CDT Capo Poe MD [facility] CPT-44863 Level 3 Est. Patient 08:20:19 CDT Zoran Arzola MD [facility] CPT-90531 Level 3 Est. Patient 09:22:21 CDT Capo Poe MD [facility] CPT-05298 Level 4 Est. Patient 10:21:30 MERCHANDISE PLANNING MANAGER Capo Poe MD [facility] CPT-15734 Level 3 Est. Patient 17:08:51 MERCHANDISE PLANNING MANAGER Zoran Arzola MD [facility] CPT-43265 Level 4 Est. Patient 09:44:42 CDT Capo Poe MD [facility] CPT-11532 Level 4 Est. Patient 10:39:29 CDT Capo Poe MD [facility] CPT-44612 Level 3 Est. Patient 17:45:23 CDT Zoran Arzola MD [facility] CPT-94161 Level 4 Est. Patient 08:50:44 CDT Capo Poe MD [facility] CPT-27421 Level 3 Est. Patient 10:39:51 MERCHANDISE PLANNING MANAGER Capo Poe MD [facility] CPT-44404 Level 4 Est. Patient 09:44:24 MERCHANDISE PLANNING MANAGER Capo Poe MD [facility] CPT-97879 Level 3 Est. Patient 14:48:42 MERCHANDISE PLANNING MANAGER Zoran Arzola MD [facility] CPT-99056 Level 4 Est. Patient 10:24:02 CDT Capo Poe MD [facility] CPT-69117 Level 3 Est. Patient 15:42:00 CDT Maya WRIGHTP [facility] CPT-29522 Level 4 Est. Patient 13:34:15 CDT Capo Poe MD [facility] CPT-50220 Level 3 Est. Patient 15:32:10 MERCHANDISE PLANNING MANAGER Zoran Arzola MD [facility] CPT-54880 Level 3 New Patient 17:17:19 MERCHANDISE PLANNING MANAGER Zoran Arzola MD [facility] CPT-63764 Level 4 Est. Patient 10:25:01 MERCHANDISE PLANNING MANAGER Capo Poe MD [facility] CPT-06186 Level 3 Est. Patient 10:10:42 CDT Zoran Arzola MD [facility] CPT-98551 Level 3 Est. Patient 22:30:02 CDT Zoran Arzola MD [facility] CPT-91760 Level 4 Est. Patient 09:54:20 CDT Capo Poe MD [facility] CPT-37516 Level 3 Est. Patient 10:48:30 CDT Capo Poe MD [facility] CPT-04086 Level 3 Est. Patient 11:24:45 CDT Capo Poe MD [facility] CPT-73782 Level 3 Est. Patient 15:23:48 MERCHANDISE PLANNING MANAGER Capo Poe MD [facility] CPT-28845 Level 3 Est. Patient 15:10:03 MERCHANDISE PLANNING MANAGER Capo Poe MD [facility] CPT-61268 Level 3 Est. Patient 16:18:40 CDT Zoran Arzola MD [facility] Procedures Code Procedure Name Date Entry Date Standard Description CPT-63245 Chest 2V Frontal and Lat - XRAY USE ONLY 11:51:24 CDT CPT-68640 Venipuncture Draw Fee 11:31:49 CDT CPT-31400 Hemoccult IFOBT - LAB USE ONLY 14:11:43 MERCHANDISE PLANNING MANAGER CPT-95915 TPSA - LAB USE ONLY 10:37:52 MERCHANDISE PLANNING MANAGER CPT-80313 TSH - LAB USE ONLY 10:37:51 MERCHANDISE PLANNING MANAGER CPT-55095 CMP - LAB USE ONLY 10:37:51 MERCHANDISE PLANNING MANAGER CPT-62180 CBC with Diff - LAB USE ONLY 10:37:51 MERCHANDISE PLANNING MANAGER CPT-01180 Venipuncture Draw Fee 10:37:51 MERCHANDISE PLANNING MANAGER CPT-000 Give Pneumovax 10:39:30 CDT CPT-74950 Venipuncture Draw Fee 09:32:34 CDT CPT-G0438 Initial Annual Wellness Exam 10:24:35 CDT CPT-86805 Venipuncture Draw Fee 09:46:29 CDT CPT-62352 Venipuncture Draw Fee 14:30:06 CDT CPT-22564 Venipuncture Draw Fee 10:58:22 CDT CPT-75825 Abd single AP View 08:32:00 CDT CPT-02857 Postop F/U Visit 21:13:08 CDT CPT-68989 Abd single AP View 15:50:24 CDT CPT-96313 Cystoscopy W/rem FB 15:21:28 CDT CPT-91894 Abd single AP View 14:06:45 CDT CPT-63664 Postop F/U Visit 09:48:32 CDT CPT-83080 Abd single AP View 13:58:26 CDT CPT-63378 Hip comp min 2V 10:27:18 MERCHANDISE PLANNING MANAGER CPT-99762 Urine Dip (Floor Use Only) 13:41:01 MERCHANDISE PLANNING MANAGER CPT-08391 Postop F/U Visit 11:17:48 CDT CPT-LR Lesion Removal 11:50:22 CDT CPT-OV Office Visit 11:50:22 CDT CPT-37510 Pneumovax 23 10:55:48 CDT CPT-82321 Administration single or combination vaccine inc oral 10 :55:48 CDT CPT-Cryo Cryotherapy 11:18:11 CDT CPT-OV Office Visit 11:18:11 CDT CPT-10321 LS spine AP and Lat 09:05:22 CDT CPT-55422 Bladder Scan 15:42:00 CDT CPT-26998 Cystoscopy 15:42:00 CDT CPT-OV Office Visit 16:37:19 MERCHANDISE PLANNING MANAGER CPT-29035 Bladder Scan 15:32:10 MERCHANDISE PLANNING MANAGER CPT-90058 Cystoscopy 15:32:10 MERCHANDISE PLANNING MANAGER CPT-30173 Abd single AP View 14:05:59 MERCHANDISE PLANNING MANAGER CPT-09825 Pill cam small bowel 09:48:39 MERCHANDISE PLANNING MANAGER CPT-38029 Urine Dip (Floor Use Only) 17:17:19 MERCHANDISE PLANNING MANAGER CPT-54293 Bladder Scan 17:17:19 MERCHANDISE PLANNING MANAGER CPT-OV Office Visit 11:50:26 MERCHANDISE PLANNING MANAGER CPT-03112 Bladder Scan 10:10:42 CDT CPT-08738 Venipuncture Draw Fee 09:14:04 CDT CPT-46650 Chest 2V Frontal and Lat 10:10:49 CDT CPT-95234 LS spine comp w obliq 11:50:11 CDT CPT-13455 Venipuncture Draw Fee 08:52:57 MERCHANDISE PLANNING MANAGER CPT-63800 Cystoscopy W/rem FB 18:37:28 CDT CPT-53134 Abd single AP View 16:18:40 CDT CPT-08390 Abd compl w upright 17:30:59 CDT
[2016-11-22] MEDS ORDERED: BUP/EPI 0.5% 1:200,000 (MARCAINE) 10ML VIAL IJ ONE ×2 (15:40→16:57)
[2016-11-22] MEDS ORDERED: HEParin (CENTRAL IV FLUSH) 500 UNIT/5 ML SYR ONE (15:40)
--- OUTSIDE RECORDS SUMMARY | 2016-11-22 15:40 | XMS REPORT | Clinical Summary ---
Author Author Admin, MARGE Organization [facility] Address Unknown Phone Unavailable Allergies, Adverse Reactions, [...] 2 puffs BID MOMETASONE FURO- FORMOTEROL FUM 56390672978 Active Capo Poe MD Active SERTRALINE HCL 100 MG ORAL TABS take 1 tab daily SERTRALINE HCL 43982701611 Active Capo Poe MD Active ZOLOFT 100 MG TABS 1 po daily SERTRALINE HCL 86235802957 No Longer Active Zoran Arzola MD Active FERROUS SULFATE 325 (65 FE) MG TABS 1 tablet by mouth daily FERROUS SULFATE 51956978555 No Longer Active Capo Poe MD Active TRAMADOL HCL 50 MG TABS 1-2 tablets every 6 hours as needed for pain TRAMADOL HCL 81057693483 Active Capo Poe MD Active HYDROCODONE-ACETAMINOPHEN 7.5-300 MG TABS take one every six hours HYDROCODONE-ACETAMINOPHEN 90884061337 No Longer Active Capo Poe MD Active TRIAMCINOLONE ACETONIDE 0.1 % OINT Apply to affected areas TID for up to 2 weeks TRIAMCINOLONE ACETONIDE 19352882549 No Longer Active Joe Vargas RN Active FERROUS SULFATE 325 (65 FE) MG TABS Take one by mouth daily FERROUS SULFATE 70734602506 No Longer Active Capo Poe MD Active TRIAMCINOLONE ACETONIDE 0.1 % OINT Apply to affected areas TID for up to 2 weeks TRIAMCINOLONE ACETONIDE 33850790224 No Longer Active Capo Poe MD Active ADULT ASPIRIN LOW STRENGTH 81 MG TBDP qd ASPIRIN 16168710781 Active Zoran Arzola MD Active ALEVE 220 MG TAB prn NAPROXEN SODIUM 60563985488 Active Capo Poe MD Active LISINOPRIL-HYDROCHLOROTHIAZIDE 10-12.5 MG TABS 1 tab by mouth daily LISINOPRIL-HYDROCHLOROTHIAZIDE 40398744511 Active Capo Poe MD Active MACROBID 100 MG CAP 1 cap by mouth twice daily NITROFURANTOIN MONOHYD MACRO 84496477009 No Longer Active Dona Becker Active AZITHROMYCIN 250 MG TABS 2 po qd x 1 day, then 1 po qd x 4 days AZITHROMYCIN 81881091414 No Longer Active Capo Poe MD Active FISH OIL 500 MG CAPS by mouth twice a day OMEGA-3 FATTY ACIDS 03045677716 Active Capo Poe MD Active FLAXSEED OIL 1000 MG CAPS Take two by mouth daily FLAXSEED (LINSEED) 37437500954 Active Zoran Arzola MD Active RED YEAST RICE 600 MG CAPS Take two by mouth daily RED YEAST RICE EXTRACT 96229187880 Active Zoran Arzola MD Active MULTIVITAMINS CAPS Take one by mouth daily MULTIPLE VITAMIN 00981225251 Active Zoran Arzola MD Active ICAPS MV TABS 2 po daily MULTIPLE VITAMINS-MINERALS 24962752350 Active Jam Arnold DO Active MACROBID 100 MG CAP 1 cap by mouth twice daily MACROBID 100 MG CAP 779639 NITROFURANTOIN MONOHYD MACRO Inactive FERROUS SULFATE 325 (65 FE) MG TABS Take one by mouth daily FERROUS SULFATE 325 (65 FE) MG TABS 562069 FERROUS SULFATE Inactive HYDROCODONE-ACETAMINOPHEN 7.5-300 MG TABS take one every six hours HYDROCODONE-ACETAMINOPHEN 7.5-300 MG TABS 618179 HYDROCODONE- ACETAMINOPHEN Inactive FERROUS SULFATE 325 (65 FE) MG TABS 1 tablet by mouth daily FERROUS SULFATE 325 (65 FE) MG TABS 161272 FERROUS SULFATE Inactive ZOLOFT 100 MG TABS 1 po daily ZOLOFT 100 MG TABS 281202 SERTRALINE HCL Inactive AZITHROMYCIN 250 MG TABS 2 po qd x 1 day, then 1 po qd x 4 days AZITHROMYCIN 250 MG TABS 7797948 AZITHROMYCIN Inactive TRIAMCINOLONE ACETONIDE 0.1 % OINT Apply to affected areas TID for up to 2 weeks TRIAMCINOLONE ACETONIDE 0.1 % OINT 4604371 TRIAMCINOLONE ACETONIDE Inactive TRIAMCINOLONE ACETONIDE 0.1 % OINT Apply to affected areas TID for up to 2 weeks TRIAMCINOLONE ACETONIDE 0.1 % OINT 9925395 TRIAMCINOLONE ACETONIDE Inactive Advance Directives Directive Description [...] Description Chart Maintenance: Outside labs entered on [facility] - Chemistry sodium, serum 137 mmol/L potassium, [...] Panel - Chemistry sodium, serum 140 mmol/L 831-756 8584/05/21 potassium, serum 4.0 mmol/L 3.5-5.2 chloride, serum [...] CBC - Chemistry cholesterol, serum 207 mg/dL 334-199 1316/02/11 triglyceride, serum, fasting 74 mg/dL 30-200 HDL cholesterol, serum 62 mg/dL 32-96 LDL cholesterol, serum 130 mg/dL 0-130 sodium, serum 144 mmol/L 250-203 0795/02/11 potassium, serum 5.0 mmol/L 3.5-5.2 chloride, serum [...] negative Encounters Code Encounter Date Provider Facility CPT-98383 Level 3 Est. Patient 08:20:19 CDT Zoran Arzola MD [facility] CPT-46172 Level 3 Est. Patient 09:22:21 CDT Capo Poe MD [facility] CPT-07731 Level 4 Est. Patient 10:21:30 MANUFACTURING FINANCE MANAGER Capo Poe MD [facility] CPT-59773 Level 3 Est. Patient 17:08:51 MANUFACTURING FINANCE MANAGER Zoran Arzola MD [facility] CPT-22844 Level 4 Est. Patient 09:44:42 CDT Capo Poe MD [facility] CPT-19536 Level 4 Est. Patient 10:39:29 CDT Capo Poe MD [facility] CPT-94043 Level 3 Est. Patient 17:45:23 CDT Zoran Arzola MD [facility] CPT-96803 Level 4 Est. Patient 08:50:44 CDT Capo Poe MD [facility] CPT-84685 Level 3 Est. Patient 10:39:51 MANUFACTURING FINANCE MANAGER Capo Poe MD [facility] CPT-67238 Level 4 Est. Patient 09:44:24 MANUFACTURING FINANCE MANAGER Capo Poe MD [facility] CPT-13112 Level 3 Est. Patient 14:48:42 MANUFACTURING FINANCE MANAGER Zoran Arzola MD [facility] CPT-83008 Level 4 Est. Patient 10:24:02 CDT Capo Poe MD [facility] CPT-94098 Level 3 Est. Patient 15:42:00 CDT Maya Brownlee ERNST [facility] CPT-10591 Level 4 Est. Patient 13:34:15 CDT Capo Poe MD [facility] CPT-97829 Level 3 Est. Patient 15:32:10 MANUFACTURING FINANCE MANAGER Zoran Arzola MD [facility] CPT-02565 Level 3 New Patient 17:17:19 MANUFACTURING FINANCE MANAGER Zoran Arzola MD [facility] CPT-43015 Level 4 Est. Patient 10:25:01 MANUFACTURING FINANCE MANAGER Capo Poe MD [facility] CPT-09849 Level 3 Est. Patient 10:10:42 CDT Zoran Arzola MD [facility] CPT-63142 Level 3 Est. Patient 22:30:02 CDT Zoran Arzola MD [facility] CPT-74112 Level 4 Est. Patient 09:54:20 CDT Capo Poe MD [facility] CPT-57661 Level 3 Est. Patient 10:48:30 CDT Capo Poe MD [facility] CPT-74392 Level 3 Est. Patient 11:24:45 CDT Capo Poe MD [facility] CPT-85272 Level 3 Est. Patient 15:23:48 MANUFACTURING FINANCE MANAGER Capo Poe MD [facility] CPT-17923 Level 3 Est. Patient 15:10:03 MANUFACTURING FINANCE MANAGER Capo Poe MD [facility] CPT-17603 Level 3 Est. Patient 16:18:40 CDT Zoran Arzola MD [facility] Procedures Code Procedure Name Date Entry Date Standard Description CPT-40798 Postop F/U Visit 09:48:32 CDT CPT-26030 Abd single AP View 13:58:26 CDT CPT-49541 Hip comp min 2V 10:27:18 MANUFACTURING FINANCE MANAGER CPT-23178 Urine Dip (Floor Use Only) 13:41:01 MANUFACTURING FINANCE MANAGER CPT-03708 Postop F/U Visit 11:17:48 CDT CPT-LR Lesion Removal 11:50:22 CDT CPT-OV Office Visit 11:50:22 CDT CPT-57993 Pneumovax 23 10:55:48 CDT CPT-67437 Administration single or combination vaccine inc oral 10 :55:48 CDT CPT-Cryo Cryotherapy 11:18:11 CDT CPT-OV Office Visit 11:18:11 CDT CPT-67274 LS spine AP and Lat 09:05:22 CDT CPT-11661 Bladder Scan 15:42:00 CDT CPT-50172 Cystoscopy 15:42:00 CDT CPT-OV Office Visit 16:37:19 MANUFACTURING FINANCE MANAGER CPT-57221 Bladder Scan 15:32:10 MANUFACTURING FINANCE MANAGER CPT-50575 Cystoscopy 15:32:10 MANUFACTURING FINANCE MANAGER CPT-71361 Abd single AP View 14:05:59 MANUFACTURING FINANCE MANAGER CPT-12086 Pill cam small bowel 09:48:39 MANUFACTURING FINANCE MANAGER CPT-31633 Urine Dip (Floor Use Only) 17:17:19 MANUFACTURING FINANCE MANAGER CPT-83141 Bladder Scan 17:17:19 MANUFACTURING FINANCE MANAGER CPT-OV Office Visit 11:50:26 MANUFACTURING FINANCE MANAGER CPT-48452 Bladder Scan 10:10:42 CDT CPT-22139 Venipuncture Draw Fee 09:14:04 CDT CPT-58898 Chest 2V Frontal and Lat 10:10:49 CDT CPT-46758 LS spine comp w obliq 11:50:11 CDT CPT-41717 Venipuncture Draw Fee 08:52:57 MANUFACTURING FINANCE MANAGER CPT-15540 Cystoscopy W/rem FB 18:37:28 CDT CPT-22145 Abd single AP View 16:18:40 CDT CPT-45575 Abd compl w upright 17:30:59 CDT
--- OUTSIDE RECORDS SUMMARY | 2016-11-22 15:41 | XMS REPORT | Clinical Summary ---
Author Author Admin, QIE Organization [employer] Address Unknown Phone Unavailable Allergies, Adverse Reactions, Alerts Allergy Name Reaction Description Start Date Severity Status Provider MACROBID Rash, itching Critical Active Dona Becker MORPHINE Critical Active Zoran Arzola MD STATINS Critical Active Jam Arnold DO Conditions or Problems Problem Name Problem Code Onset Date Status Entry Date Provider Comment Standard Description Annotate NAUSEA AND VOMITING 787.01 Resolved Capo oPe MD Nausea with vomiting Depression 311 Active [...] abnormality C O P D 496 Inactive aCpo Poe MD Chronic airway obstruction, not elsewhere [...] collapse Iron deficiency 280.9 Active Jasmin Dixon [facility] Iron deficiency anemia, unspecified NAUSEA AND [...] Capo Poe MD Sciatica, right ICD-724.3 Inactive Caop Poe MD Renal Calculus ICD-592.9 Inactive Capo Poe MD Urethral calculus ICD-594.2 Inactive Capo Poe MD Chest pain ICD-786.50 Inactive Capo Poe MD Prostate cancer screening ICD-V76.44 Inactive Capo Poe MD Pruritic rash ICD-698.8 Inactive Cpao Poe MD Elevated creatinine ICD-790.4 Inactive Cpao Poe MD Medication List Medication Instructions Start Date Stop Date Generic Name NDC Status Provider Patient Instruction EQL IRON SUPPLEMENT THERAPY 325 MG ORAL TABS 1 tab po twice daily FERROUS SULFATE 49061473913 Active Jasmin TEIXEIRA Active D ORAL TABS 2000 iu weekly D ORAL TABS Active Capo Poe MD Active CITALOPRAM HYDROBROMIDE 20 MG TABS 1 tablet by mouth daily CITALOPRAM HYDROBROMIDE 95264973637 Active Capo Poe MD Active CLARITIN 5 MG ORAL CHEW 1 tab po q day LORATADINE 79047129312 Active Felisa TEIXEIRA Active VIIBRYD STARTER PACK 10 & 20 MG ORAL KIT 1 po qd as directed 2015 VILAZODONE HCL 62552691252 No Longer Active Felisa TEIXEIRA Active HYDROXYZINE HCL 25 MG TAB 1 po qHS PRN Insomnia HYDROXYZINE HCL 48949775725 Active Capo Poe MD Active LISINOPRIL 10 MG TABS 1 tablet by mouth daily LISINOPRIL 88594505548 Active Capo Poe MD Active LORTAB 7.5-325 MG ORAL TABS 1 po q 6 hr prn pain HYDROCODONE- ACETAMINOPHEN 42452070355 No Longer Active Capo Poe MD Active FLOMAX 0.4 MG CAPS Take one by mouth daily TAMSULOSIN HCL 03726857826 No Longer Active Capo Poe MD Active TRIAMCINOLONE ACETONIDE 0.1 % CREA Apply to affected areas TID for up to 2 weeks TRIAMCINOLONE ACETONIDE 80662007844 Active Capo Poe MD Active NICOTINE 14 MG/24HR TRANS PT24 Apply/Change q 24hr NICOTINE 46977335769 No Longer Active Capo Poe MD Active TRAMADOL HCL 50 MG TABS 1-2 tablets every 6 hours as needed for pain TRAMADOL HCL 34954705449 No Longer Active Capo Poe MD Active SERTRALINE HCL 100 MG ORAL TABS take 1 tab daily SERTRALINE HCL 84012139232 No Longer Active Capo Poe MD Active LISINOPRIL-HYDROCHLOROTHIAZIDE 10-12.5 MG TABS 0.5 tab by mouth daily LISINOPRIL-HYDROCHLOROTHIAZIDE 38849681655 No Longer Active Capo Poe MD Active OMEPRAZOLE 20 MG CPDR 1 tablet by mouth daily OMEPRAZOLE 52935637053 Active Capo Poe MD Active WELLBUTRIN SR 150 MG ORAL [id number] 1 po BID BUPROPION HCL 94912006906 No Longer Active Capo Poe MD Active MIRALAX PACK 1 po qd PRN Constipation POLYETHYLENE GLYCOL 3350 58321436513 Active Capo Poe MD Active DULERA 100-5 MCG/ACT AERO 2 puffs BID MOMETASONE FURO- FORMOTEROL FUM 30500115415 Active Capo Poe MD Active ZOLOFT 100 MG TABS 1 po daily SERTRALINE HCL 87402973999 No Longer Active Zoran Arzola MD Active FERROUS SULFATE 325 (65 FE) MG TABS 1 tablet by mouth daily FERROUS SULFATE 18120494862 No Longer Active Capo Poe MD Active HYDROCODONE-ACETAMINOPHEN 7.5-300 MG TABS take one every six hours HYDROCODONE-ACETAMINOPHEN 22906929171 No Longer Active Capo Poe MD Active TRIAMCINOLONE ACETONIDE 0.1 % OINT Apply to affected areas TID for up to 2 weeks TRIAMCINOLONE ACETONIDE 36440213790 No Longer Active Joe Vargas RN Active FERROUS SULFATE 325 (65 FE) MG TABS Take one by mouth daily FERROUS SULFATE 11032763498 No Longer Active Capo Poe MD Active TRIAMCINOLONE ACETONIDE 0.1 % OINT Apply to affected areas TID for up to 2 weeks TRIAMCINOLONE ACETONIDE 95078931479 No Longer Active Capo Poe MD Active ADULT ASPIRIN LOW STRENGTH 81 MG TBDP qd ASPIRIN 94202528620 Active Zoran Arzola MD Active ALEVE 220 MG TAB prn NAPROXEN SODIUM 99683902122 Active Capo Poe MD Active MACROBID 100 MG CAP 1 cap by mouth twice daily NITROFURANTOIN MONOHYD MACRO 59065403665 No Longer Active Dona Becker Active AZITHROMYCIN 250 MG TABS 2 po qd x 1 day, then 1 po qd x 4 days AZITHROMYCIN 07756699583 No Longer Active Capo Poe MD Active FISH OIL 500 MG CAPS by mouth twice a day OMEGA-3 FATTY ACIDS 36107980137 Active Capo Poe MD Active FLAXSEED OIL 1000 MG CAPS Take two by mouth daily FLAXSEED (LINSEED) 27599783970 Active Zoran Arzola MD Active RED YEAST RICE 600 MG CAPS Take two by mouth daily RED YEAST RICE EXTRACT 04951217840 Active Zoran Arzola MD Active MULTIVITAMINS CAPS Take one by mouth daily MULTIPLE VITAMIN 06830328374 Active Zoran Arzola MD Active ICAPS MV TABS 2 po daily MULTIPLE VITAMINS-MINERALS 28395616527 Active Jam Arnold DO Active MACROBID 100 MG CAP 1 cap by mouth twice daily MACROBID 100 MG CAP 0359302 NITROFURANTOIN MONOHYD MACRO Inactive FERROUS SULFATE 325 (65 FE) MG TABS Take one by mouth daily FERROUS SULFATE 325 (65 FE) MG TABS 711606 FERROUS SULFATE Inactive HYDROCODONE-ACETAMINOPHEN 7.5-300 MG TABS take one every six hours HYDROCODONE-ACETAMINOPHEN 7.5-300 MG TABS 873070 HYDROCODONE- ACETAMINOPHEN Inactive FERROUS SULFATE 325 (65 FE) MG TABS 1 tablet by mouth daily FERROUS SULFATE 325 (65 FE) MG TABS 833168 FERROUS SULFATE Inactive ZOLOFT 100 MG TABS 1 po daily ZOLOFT 100 MG TABS 593386 SERTRALINE HCL Inactive SERTRALINE HCL 100 MG ORAL TABS take 1 tab daily SERTRALINE HCL 100 MG ORAL TABS 944002 SERTRALINE HCL Inactive TRAMADOL HCL 50 MG TABS 1-2 tablets every 6 hours as needed for pain TRAMADOL HCL 50 MG TABS 447810 TRAMADOL HCL Inactive NICOTINE 14 MG/24HR TRANS PT24 Apply/Change q 24hr NICOTINE 14 MG/24HR TRANS PT24 680184 NICOTINE Inactive FLOMAX 0.4 MG CAPS Take one by mouth daily FLOMAX 0.4 MG CAPS 874263 TAMSULOSIN HCL Inactive LORTAB 7.5-325 MG ORAL TABS 1 po q 6 hr prn pain LORTAB 7.5- 325 MG ORAL TABS 295815 HYDROCODONE-ACETAMINOPHEN Inactive VIIBRYD STARTER PACK 10 & 20 MG ORAL KIT 1 po qd as directed 2015 VIIBRYD STARTER PACK 10 & 20 MG ORAL KIT VILAZODONE HCL Inactive AZITHROMYCIN 250 MG TABS 2 po qd x 1 day, then 1 po qd x 4 days AZITHROMYCIN 250 MG TABS 2855849 AZITHROMYCIN Inactive TRIAMCINOLONE ACETONIDE 0.1 % OINT Apply to affected areas TID for up to 2 weeks TRIAMCINOLONE ACETONIDE 0.1 % OINT 4059007 TRIAMCINOLONE ACETONIDE Inactive TRIAMCINOLONE ACETONIDE 0.1 % OINT Apply to affected areas TID for up to 2 weeks TRIAMCINOLONE ACETONIDE 0.1 % OINT 9216457 TRIAMCINOLONE ACETONIDE Inactive Advance Directives Directive Description [...] ... - Chemistry sodium, serum 141 mmol/L 163-878 8108/01/27 carbon dioxide, venous blood 29.7 mmol/L 21.0-32.0 [...] % 11.0-15.0 platelet count 214 THOUSAND/UL 10*3/mm3 783-961 2496/03/31 mean platelet volume 8.4 fL 7.5-12.5 Encounters Code Encounter Date Provider Facility CPT-30478 Level 4 Est. Patient 09:26:11 PSYCHOLOGIST DEVELOPMENTAL Capo Poe MD [facility] CPT-04057 Level 4 Est. Patient 08:53:08 CDT Capo Poe MD [facility] CPT-31355 Level 4 Est. Patient 10:22:57 CDT Capo Poe MD [facility] CPT-70678 Level 4 Est. Patient 13:44:30 CDT Capo Poe MD [facility] CPT-40297 Level 3 Est. Patient 14:59:32 PSYCHOLOGIST DEVELOPMENTAL Capo Poe MD [facility] CPT-76740 Level 4 Est. Patient 10:46:15 PSYCHOLOGIST DEVELOPMENTAL Capo Poe MD [facility] CPT-14577 Level 3 Est. Patient 11:00:53 CDT Capo Poe MD [facility] CPT-76265 Level 3 Est. Patient 09:39:35 CDT Capo Poe MD [facility] CPT-39363 Level 3 Est. Patient 09:27:01 CDT Capo Poe MD [facility] CPT-39663 Level 3 Est. Patient 18:37:08 CDT Zoran Arzola MD [facility] CPT-56382 Level 3 Est. Patient 15:00:28 CDT Capo Poe MD [facility] CPT-99986 Level 3 Est. Patient 08:20:19 CDT Zoran Arzola MD [facility] CPT-44248 Level 3 Est. Patient 09:22:21 CDT Capo Poe MD [facility] CPT-63957 Level 4 Est. Patient 10:21:30 PSYCHOLOGIST DEVELOPMENTAL Capo Poe MD [facility] CPT-84308 Level 3 Est. Patient 17:08:51 PSYCHOLOGIST DEVELOPMENTAL Zoran Arzola MD [facility] CPT-34044 Level 4 Est. Patient 09:44:42 CDT Capo Poe MD [facility] CPT-52304 Level 4 Est. Patient 10:39:29 CDT Capo Poe MD [facility] CPT-07080 Level 3 Est. Patient 17:45:23 CDT Zoran Arzola MD [facility] CPT-16125 Level 4 Est. Patient 08:50:44 CDT Capo Poe MD [facility] CPT-94462 Level 3 Est. Patient 10:39:51 PSYCHOLOGIST DEVELOPMENTAL Capo Poe MD [facility] CPT-12996 Level 4 Est. Patient 09:44:24 PSYCHOLOGIST DEVELOPMENTAL Capo Poe MD [facility] CPT-31922 Level 3 Est. Patient 14:48:42 PSYCHOLOGIST DEVELOPMENTAL Zoran Arzola MD [facility] CPT-46643 Level 4 Est. Patient 10:24:02 CDT Capo Poe MD [facility] CPT-29055 Level 3 Est. Patient 15:42:00 CDT Maya DUKES [facility] CPT-12143 Level 4 Est. Patient 13:34:15 CDT Capo Poe MD [facility] CPT-82599 Level 3 Est. Patient 15:32:10 PSYCHOLOGIST DEVELOPMENTAL Zoran Arzola MD [facility] CPT-81375 Level 3 New Patient 17:17:19 PSYCHOLOGIST DEVELOPMENTAL Zoran Arzola MD [facility] CPT-02881 Level 4 Est. Patient 10:25:01 PSYCHOLOGIST DEVELOPMENTAL Capo Poe MD [facility] CPT-95095 Level 3 Est. Patient 10:10:42 CDT Zoran Arzola MD [facility] CPT-92035 Level 3 Est. Patient 22:30:02 CDT Zoran Arzola MD [facility] CPT-13737 Level 4 Est. Patient 09:54:20 CDT Capo Poe MD [facility] CPT-51596 Level 3 Est. Patient 10:48:30 CDT Capo Poe MD [facility] CPT-71922 Level 3 Est. Patient 11:24:45 CDT Capo Poe MD [facility] CPT-70913 Level 3 Est. Patient 15:23:48 PSYCHOLOGIST DEVELOPMENTAL Capo Poe MD [facility] CPT-07699 Level 3 Est. Patient 15:10:03 PSYCHOLOGIST DEVELOPMENTAL Capo Poe MD [facility] CPT-55072 Level 3 Est. Patient 16:18:40 CDT Zoran Arzola MD [facility] Procedures Code Procedure Name Date Entry Date Standard Description CPT-54384 Hemoccult IFOBT - LAB USE ONLY 14:11:43 PSYCHOLOGIST DEVELOPMENTAL CPT-42963 TPSA - LAB USE ONLY 10:37:52 PSYCHOLOGIST DEVELOPMENTAL CPT-55982 TSH - LAB USE ONLY 10:37:51 PSYCHOLOGIST DEVELOPMENTAL CPT-28806 CMP - LAB USE ONLY 10:37:51 PSYCHOLOGIST DEVELOPMENTAL CPT-85878 CBC with Diff - LAB USE ONLY 10:37:51 PSYCHOLOGIST DEVELOPMENTAL CPT-75034 Venipuncture Draw Fee 10:37:51 PSYCHOLOGIST DEVELOPMENTAL CPT-000 Give Pneumovax 10:39:30 CDT CPT-42250 Venipuncture Draw Fee 09:32:34 CDT CPT-G0438 Initial Annual Wellness Exam 10:24:35 CDT CPT-79260 Venipuncture Draw Fee 09:46:29 CDT CPT-91522 Venipuncture Draw Fee 14:30:06 CDT CPT-77792 Venipuncture Draw Fee 10:58:22 CDT CPT-37241 Abd single AP View 08:32:00 CDT CPT-08431 Postop F/U Visit 21:13:08 CDT CPT-48244 Abd single AP View 15:50:24 CDT CPT-87511 Cystoscopy W/rem FB 15:21:28 CDT CPT-86138 Abd single AP View 14:06:45 CDT CPT-07541 Postop F/U Visit 09:48:32 CDT CPT-66235 Abd single AP View 13:58:26 CDT CPT-92828 Hip comp min 2V 10:27:18 PSYCHOLOGIST DEVELOPMENTAL CPT-40167 Urine Dip (Floor Use Only) 13:41:01 PSYCHOLOGIST DEVELOPMENTAL CPT-96259 Postop F/U Visit 11:17:48 CDT CPT-LR Lesion Removal 11:50:22 CDT CPT-OV Office Visit 11:50:22 CDT CPT-69021 Pneumovax 23 10:55:48 CDT CPT-67446 Administration single or combination vaccine inc oral 10 :55:48 CDT CPT-Cryo Cryotherapy 11:18:11 CDT CPT-OV Office Visit 11:18:11 CDT CPT-87148 LS spine AP and Lat 09:05:22 CDT CPT-25049 Bladder Scan 15:42:00 CDT CPT-92476 Cystoscopy 15:42:00 CDT CPT-OV Office Visit 16:37:19 PSYCHOLOGIST DEVELOPMENTAL CPT-43247 Bladder Scan 15:32:10 PSYCHOLOGIST DEVELOPMENTAL CPT-43438 Cystoscopy 15:32:10 PSYCHOLOGIST DEVELOPMENTAL CPT-84954 Abd single AP View 14:05:59 PSYCHOLOGIST DEVELOPMENTAL CPT-80985 Pill cam small bowel 09:48:39 PSYCHOLOGIST DEVELOPMENTAL CPT-13332 Urine Dip (Floor Use Only) 17:17:19 PSYCHOLOGIST DEVELOPMENTAL CPT-93939 Bladder Scan 17:17:19 PSYCHOLOGIST DEVELOPMENTAL CPT-OV Office Visit 11:50:26 PSYCHOLOGIST DEVELOPMENTAL CPT-18116 Bladder Scan 10:10:42 CDT CPT-61901 Venipuncture Draw Fee 09:14:04 CDT CPT-56795 Chest 2V Frontal and Lat 10:10:49 CDT CPT-57042 LS spine comp w obliq 11:50:11 CDT CPT-12558 Venipuncture Draw Fee 08:52:57 PSYCHOLOGIST DEVELOPMENTAL CPT-37052 Cystoscopy W/rem FB 18:37:28 CDT CPT-25060 Abd single AP View 16:18:40 CDT CPT-33120 Abd compl w upright 17:30:59 CDT
--- OUTSIDE RECORDS SUMMARY | 2016-11-22 15:41 | XMS REPORT | Clinical Summary ---
Author Author Admin, MARGE Organization [facility] Address Unknown Phone Unavailable Allergies, [...] 2 puffs BID MOMETASONE FURO- FORMOTEROL FUM 35700732719 Active Capo Poe MD Active SERTRALINE HCL 100 MG ORAL TABS take 1 tab daily SERTRALINE HCL 24638148095 Active Capo Poe MD Active ZOLOFT 100 MG TABS 1 po daily SERTRALINE HCL 23868639057 No Longer Active Zoran Arzola MD Active FERROUS SULFATE 325 (65 FE) MG TABS 1 tablet by mouth daily FERROUS SULFATE 77437732495 No Longer Active Capo Poe MD Active TRAMADOL HCL 50 MG TABS 1-2 tablets every 6 hours as needed for pain TRAMADOL HCL 92968827605 Active Capo Poe MD Active HYDROCODONE-ACETAMINOPHEN 7.5-300 MG TABS take one every six hours HYDROCODONE-ACETAMINOPHEN 51144556244 No Longer Active Capo Poe MD Active TRIAMCINOLONE ACETONIDE 0.1 % OINT Apply to affected areas TID for up to 2 weeks TRIAMCINOLONE ACETONIDE 47838694314 No Longer Active Joe Vargas RN Active FERROUS SULFATE 325 (65 FE) MG TABS Take one by mouth daily FERROUS SULFATE 53134644014 No Longer Active Capo Poe MD Active TRIAMCINOLONE ACETONIDE 0.1 % OINT Apply to affected areas TID for up to 2 weeks TRIAMCINOLONE ACETONIDE 09759877611 No Longer Active Capo Poe MD Active ADULT ASPIRIN LOW STRENGTH 81 MG TBDP qd ASPIRIN 23627638469 Active Zoran Arzola MD Active ALEVE 220 MG TAB prn NAPROXEN SODIUM 63246919687 Active Capo Poe MD Active LISINOPRIL-HYDROCHLOROTHIAZIDE 10-12.5 MG TABS 1 tab by mouth daily LISINOPRIL-HYDROCHLOROTHIAZIDE 75776403573 Active Capo Poe MD Active MACROBID 100 MG CAP 1 cap by mouth twice daily NITROFURANTOIN MONOHYD MACRO 53423917116 No Longer Active Dona Becker Active AZITHROMYCIN 250 MG TABS 2 po qd x 1 day, then 1 po qd x 4 days AZITHROMYCIN 11971130256 No Longer Active Capo Poe MD Active FISH OIL 500 MG CAPS by mouth twice a day OMEGA-3 FATTY ACIDS 63731445332 Active Capo Poe MD Active FLAXSEED OIL 1000 MG CAPS Take two by mouth daily FLAXSEED (LINSEED) 42982619682 Active Zoran Arzola MD Active RED YEAST RICE 600 MG CAPS Take two by mouth daily RED YEAST RICE EXTRACT 72071854540 Active Zoran Arzola MD Active MULTIVITAMINS CAPS Take one by mouth daily MULTIPLE VITAMIN 38332298713 Active Zoran Arzola MD Active ICAPS MV TABS 2 po daily MULTIPLE VITAMINS-MINERALS 80657079565 Active Jam Arnold DO Active MACROBID 100 MG CAP 1 cap by mouth twice daily MACROBID 100 MG CAP 844533 NITROFURANTOIN MONOHYD MACRO Inactive FERROUS SULFATE 325 (65 FE) MG TABS Take one by mouth daily FERROUS SULFATE 325 (65 FE) MG TABS 502911 FERROUS SULFATE Inactive HYDROCODONE-ACETAMINOPHEN 7.5-300 MG TABS take one every six hours HYDROCODONE-ACETAMINOPHEN 7.5-300 MG TABS 649650 HYDROCODONE- ACETAMINOPHEN Inactive FERROUS SULFATE 325 (65 FE) MG TABS 1 tablet by mouth daily FERROUS SULFATE 325 (65 FE) MG TABS 069834 FERROUS SULFATE Inactive ZOLOFT 100 MG TABS 1 po daily ZOLOFT 100 MG TABS 056394 SERTRALINE HCL Inactive AZITHROMYCIN 250 MG TABS 2 po qd x 1 day, then 1 po qd x 4 days AZITHROMYCIN 250 MG TABS 8304719 AZITHROMYCIN Inactive TRIAMCINOLONE ACETONIDE 0.1 % OINT Apply to affected areas TID for up to 2 weeks TRIAMCINOLONE ACETONIDE 0.1 % OINT 8882587 TRIAMCINOLONE ACETONIDE Inactive TRIAMCINOLONE ACETONIDE 0.1 % OINT Apply to affected areas TID for up to 2 weeks TRIAMCINOLONE ACETONIDE 0.1 % OINT 0507049 TRIAMCINOLONE ACETONIDE Inactive Advance Directives Directive Description Start Date PERMISSION TO SHARE Immunizations Vaccine Administration Date Value Standard Description pneumococcal immunization administered Pneumovax 23 [CVX33] pneumococcal polysaccharide vaccine, 23 valent Vital Signs Date Name Value Unit Range Description blood pressure, diastolic - 8462-4 73 mm[Hg] [...] Panel - Chemistry sodium, serum 140 mmol/L 109-383 1614/05/21 potassium, serum 4.0 mmol/L 3.5-5.2 chloride, serum [...] CBC - Chemistry cholesterol, serum 207 mg/dL 038-169 5761/02/11 triglyceride, serum, fasting 74 mg/dL 30-200 HDL cholesterol, serum 62 mg/dL 32-96 LDL cholesterol, serum 130 mg/dL 0-130 sodium, serum 144 mmol/L 978-374 3970/02/11 potassium, serum 5.0 mmol/L 3.5-5.2 chloride, serum [...] normalized ratio (INR) 0.9 1.0-3.5 Office Visit: Follow up - Chemistry RBC, [...] negative Encounters Code Encounter Date Provider Facility CPT-14560 Level 3 Est. Patient 08:20:19 CDT Zoran Arzola MD [facility] CPT-50566 Level 3 Est. Patient 09:22:21 CDT Capo Poe MD [facility] CPT-61564 Level 4 Est. Patient 10:21:30 CLOTH PRINTER HELPER Capo Poe MD [facility] CPT-36309 Level 3 Est. Patient 17:08:51 CLOTH PRINTER HELPER Zoran Arzola MD [facility] CPT-27973 Level 4 Est. Patient 09:44:42 CDT Capo Poe MD [facility] CPT-56462 Level 4 Est. Patient 10:39:29 CDT Capo Poe MD [facility] CPT-44354 Level 3 Est. Patient 17:45:23 CDT Zoran Arzola MD [facility] CPT-38803 Level 4 Est. Patient 08:50:44 CDT Capo Poe MD [facility] CPT-68107 Level 3 Est. Patient 10:39:51 CLOTH PRINTER HELPER Capo Poe MD [facility] CPT-12213 Level 4 Est. Patient 09:44:24 CLOTH PRINTER HELPER Capo Poe MD [facility] CPT-44291 Level 3 Est. Patient 14:48:42 CLOTH PRINTER HELPER Zoran Arzola MD [facility] CPT-35595 Level 4 Est. Patient 10:24:02 CDT Capo Poe MD [facility] CPT-58682 Level 3 Est. [facility] 15:42:00 [facility] Level 4 Est. Patient 13:34:15 CDT Capo Poe MD [facility] CPT-88307 Level 3 Est. Patient 15:32:10 CLOTH PRINTER HELPER Zoran Arzola MD [facility] CPT-94104 Level 3 New Patient 17:17:19 CLOTH PRINTER HELPER Zoran Arzola MD [facility] CPT-80271 Level 4 Est. Patient 10:25:01 CLOTH PRINTER HELPER Capo Poe MD [facility] CPT-92997 Level 3 Est. Patient 10:10:42 CDT Zoran Arzola MD [facility] CPT-18079 Level 3 Est. Patient 22:30:02 CDT Zoran Arzola MD [facility] CPT-54690 Level 4 Est. Patient 09:54:20 CDT Capo Poe MD [facility] CPT-86242 Level 3 Est. Patient 10:48:30 CDT Capo Poe MD [facility] CPT-31692 Level 3 Est. Patient 11:24:45 CDT Capo Poe MD [facility] CPT-66816 Level 3 Est. Patient 15:23:48 CLOTH PRINTER HELPER Capo Poe MD [facility] CPT-75567 Level 3 Est. Patient 15:10:03 CLOTH PRINTER HELPER Capo Poe MD [facility] CPT-53688 Level 3 Est. Patient 16:18:40 CDT Zoran Arzola MD [facility] Procedures Code Procedure Name Date Entry Date Standard Description CPT-52923 Abd single AP View 13:58:26 CDT CPT-51310 Hip comp min 2V 10:27:18 CLOTH PRINTER HELPER CPT-26554 Urine Dip (Floor Use Only) 13:41:01 CLOTH PRINTER HELPER CPT-27841 Postop F/U Visit 11:17:48 CDT CPT-LR Lesion Removal 11:50:22 CDT CPT-OV Office Visit 11:50:22 CDT CPT-61772 Pneumovax 23 10:55:48 CDT CPT-31400 Administration single or combination vaccine inc oral 10 :55:48 CDT CPT-Cryo Cryotherapy 11:18:11 CDT CPT-OV Office Visit 11:18:11 CDT CPT-67177 LS spine AP and Lat 09:05:22 CDT CPT-02926 Bladder Scan 15:42:00 CDT CPT-87719 Cystoscopy 15:42:00 CDT CPT-OV Office Visit 16:37:19 CLOTH PRINTER HELPER CPT-56819 Bladder Scan 15:32:10 CLOTH PRINTER HELPER CPT-42599 Cystoscopy 15:32:10 CLOTH PRINTER HELPER CPT-31875 Abd single AP View 14:05:59 CLOTH PRINTER HELPER CPT-94084 Pill cam small bowel 09:48:39 CLOTH PRINTER HELPER CPT-08883 Urine Dip (Floor Use Only) 17:17:19 CLOTH PRINTER HELPER CPT-89513 Bladder Scan 17:17:19 CLOTH PRINTER HELPER CPT-OV Office Visit 11:50:26 CLOTH PRINTER HELPER CPT-92748 Bladder Scan 10:10:42 CDT CPT-84979 Venipuncture Draw Fee 09:14:04 CDT CPT-04813 Chest 2V Frontal and Lat 10:10:49 CDT CPT-54837 LS spine comp w obliq 11:50:11 CDT CPT-40149 Venipuncture Draw Fee 08:52:57 CLOTH PRINTER HELPER CPT-79018 Cystoscopy W/rem FB 18:37:28 CDT CPT-45052 Abd single AP View 16:18:40 CDT CPT-60173 Abd compl w upright 17:30:59 CDT
--- OUTSIDE RECORDS SUMMARY | 2016-11-22 15:42 | XMS REPORT | Clinical Summary ---
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 Capo oPe MD Urinary tract infection, site not specified [...] 2 puffs BID MOMETASONE FURO- FORMOTEROL FUM 11492635285 Active Capo Poe MD Active SERTRALINE HCL 100 MG ORAL TABS take 1 tab daily SERTRALINE HCL 63695607670 Active Capo Poe MD Active ZOLOFT 100 MG TABS 1 po daily SERTRALINE HCL 12185618626 No Longer Active Zoran Arzola MD Active FERROUS SULFATE 325 (65 FE) MG TABS 1 tablet by mouth daily FERROUS SULFATE 95803887583 No Longer Active Capo Poe MD Active TRAMADOL HCL 50 MG TABS 1-2 tablets every 6 hours as needed for pain TRAMADOL HCL 40274216836 Active Capo Poe MD Active HYDROCODONE-ACETAMINOPHEN 7.5-300 MG TABS take one every six hours HYDROCODONE-ACETAMINOPHEN 27593052907 No Longer Active Capo Poe MD Active TRIAMCINOLONE ACETONIDE 0.1 % OINT Apply to affected areas TID for up to 2 weeks TRIAMCINOLONE ACETONIDE 73354516995 No Longer Active Joe Vargas RN Active FERROUS SULFATE 325 (65 FE) MG TABS Take one by mouth daily FERROUS SULFATE 21918092576 No Longer Active Capo Poe MD Active TRIAMCINOLONE ACETONIDE 0.1 % OINT Apply to affected areas TID for up to 2 weeks TRIAMCINOLONE ACETONIDE 99065026574 No Longer Active Capo Poe MD Active ADULT ASPIRIN LOW STRENGTH 81 MG TBDP qd ASPIRIN 10772500760 Active Zoran Arzola MD Active ALEVE 220 MG TAB prn NAPROXEN SODIUM 16127379704 Active Capo Poe MD Active LISINOPRIL-HYDROCHLOROTHIAZIDE 10-12.5 MG TABS 1 tab by mouth daily LISINOPRIL-HYDROCHLOROTHIAZIDE 31539015155 Active Capo Poe MD Active MACROBID 100 MG CAP 1 cap by mouth twice daily NITROFURANTOIN MONOHYD MACRO 75755010010 No Longer Active Dona Becker Active AZITHROMYCIN 250 MG TABS 2 po qd x 1 day, then 1 po qd x 4 days AZITHROMYCIN 13936659708 No Longer Active Capo Poe MD Active FISH OIL 500 MG CAPS by mouth twice a day OMEGA-3 FATTY ACIDS 73645754697 Active Capo Poe MD Active FLAXSEED OIL 1000 MG CAPS Take two by mouth daily FLAXSEED (LINSEED) 59491964904 Active Zoran Arzola MD Active RED YEAST RICE 600 MG CAPS Take two by mouth daily RED YEAST RICE EXTRACT 07751825229 Active Zoran Arzola MD Active MULTIVITAMINS CAPS Take one by mouth daily MULTIPLE VITAMIN 27045516981 Active Zoran Arzola MD Active ICAPS MV TABS 2 po daily MULTIPLE VITAMINS-MINERALS 64717077379 Active Jam Arnold DO Active MACROBID 100 MG CAP 1 cap by mouth twice daily MACROBID 100 MG CAP 695597 NITROFURANTOIN MONOHYD MACRO Inactive FERROUS SULFATE 325 (65 FE) MG TABS Take one by mouth daily FERROUS SULFATE 325 (65 FE) MG TABS 384623 FERROUS SULFATE Inactive HYDROCODONE-ACETAMINOPHEN 7.5-300 MG TABS take one every six hours HYDROCODONE-ACETAMINOPHEN 7.5-300 MG TABS 537024 HYDROCODONE- ACETAMINOPHEN Inactive FERROUS SULFATE 325 (65 FE) MG TABS 1 tablet by mouth daily FERROUS SULFATE 325 (65 FE) MG TABS 398462 FERROUS SULFATE Inactive ZOLOFT 100 MG TABS 1 po daily ZOLOFT 100 MG TABS 324910 SERTRALINE HCL Inactive AZITHROMYCIN 250 MG TABS 2 po qd x 1 day, then 1 po qd x 4 days AZITHROMYCIN 250 MG TABS 0392886 AZITHROMYCIN Inactive TRIAMCINOLONE ACETONIDE 0.1 % OINT Apply to affected areas TID for up to 2 weeks TRIAMCINOLONE ACETONIDE 0.1 % OINT 0672473 TRIAMCINOLONE ACETONIDE Inactive TRIAMCINOLONE ACETONIDE 0.1 % OINT Apply to affected areas TID for up to 2 weeks TRIAMCINOLONE ACETONIDE 0.1 % OINT 9221010 TRIAMCINOLONE ACETONIDE Inactive Advance Directives Directive Description [...] CBC - Chemistry cholesterol, serum 207 mg/dL 614-655 2130/02/11 triglyceride, serum, fasting 74 mg/dL 30-200 HDL cholesterol, serum 62 mg/dL 32-96 LDL cholesterol, serum 130 mg/dL 0-130 sodium, serum 144 mmol/L 664-564 2710/02/11 potassium, serum 5.0 mmol/L 3.5-5.2 chloride, serum [...] negative Encounters Code Encounter Date Provider Facility CPT-05015 Level 3 Est. Patient 08:20:19 CDT Zoran Arzola MD [facility] CPT-51768 Level 3 Est. Patient 09:22:21 CDT Capo Poe MD [facility] CPT-16659 Level 4 Est. Patient 10:21:30 [employer] Capo Poe MD [facility] CPT-91924 Level 3 Est. Patient 17:08:51 [employer] Zoran Arzola MD [facility] CPT-81502 Level 4 Est. Patient 09:44:42 CDT Capo Poe MD [facility] CPT-03780 Level 4 Est. Patient 10:39:29 CDT Capo Poe MD [facility] CPT-80661 Level 3 Est. Patient 17:45:23 CDT Zoran Arzola MD [facility] CPT-15484 Level 4 Est. Patient 08:50:44 CDT Capo Poe MD [facility] CPT-17175 Level 3 Est. Patient 10:39:51 [employer] Capo Poe MD [facility] CPT-46431 Level 4 Est. Patient 09:44:24 [employer] Capo Poe MD [facility] CPT-43857 Level 3 Est. Patient 14:48:42 [employer] Zoran Arzola MD [facility] CPT-23807 Level 4 Est. Patient 10:24:02 CDT Capo Poe MD [facility] CPT-16323 Level 3 Est. Patient 15:42:00 CDT Maya Brownlee ERNST [facility] CPT-51783 Level 4 Est. Patient 13:34:15 CDT Capo Poe MD [facility] CPT-49168 Level 3 Est. Patient 15:32:10 [employer] Zoran Arzola MD [facility] CPT-68005 Level 3 New Patient 17:17:19 [employer] Zoran Arzola MD [facility] CPT-05512 Level 4 Est. Patient 10:25:01 [employer] Capo Poe MD [facility] CPT-20497 Level 3 Est. Patient 10:10:42 CDT Zoran Arzola MD [facility] CPT-10688 Level 3 Est. Patient 22:30:02 CDT Zoran Arzola MD [facility] CPT-57085 Level 4 Est. Patient 09:54:20 CDT Capo Poe MD [facility] CPT-67558 Level 3 Est. Patient 10:48:30 CDT Capo Poe MD [facility] CPT-28310 Level 3 Est. Patient 11:24:45 CDT Capo Poe MD [facility] CPT-34370 Level 3 Est. Patient 15:23:48 [employer] Capo Poe MD [facility] CPT-98083 Level 3 Est. Patient 15:10:03 [employer] Capo Poe MD [facility] CPT-31072 Level 3 Est. Patient 16:18:40 CDT Zoran Arzola MD [facility] Procedures Code Procedure Name Date Entry Date Standard Description CPT-84676 Postop F/U Visit 21:13:08 CDT CPT-67197 Abd single AP View 15:50:24 CDT CPT-68890 Cystoscopy W/rem FB 15:21:28 CDT CPT-20188 Abd single AP View 14:06:45 CDT CPT-84562 Postop F/U Visit 09:48:32 CDT CPT-49300 Abd single AP View 13:58:26 CDT CPT-28704 Hip comp min 2V 10:27:18 [employer] CPT-34031 Urine Dip (Floor Use Only) 13:41:01 [employer] CPT-17413 Postop F/U Visit 11:17:48 CDT CPT-LR Lesion Removal 11:50:22 CDT CPT-OV Office Visit 11:50:22 CDT CPT-16940 Pneumovax 23 10:55:48 CDT CPT-34164 Administration single or combination vaccine inc oral 10 :55:48 CDT CPT-Cryo Cryotherapy 11:18:11 CDT CPT-OV Office Visit 11:18:11 CDT CPT-47910 LS spine AP and Lat 09:05:22 CDT CPT-03367 Bladder Scan 15:42:00 CDT CPT-68237 Cystoscopy 15:42:00 CDT CPT-OV Office Visit 16:37:19 [employer] CPT-64302 Bladder Scan 15:32:10 [employer] CPT-38097 Cystoscopy 15:32:10 [employer] CPT-55644 Abd single AP View 14:05:59 [employer] CPT-88309 Pill cam small bowel 09:48:39 [employer] CPT-78954 Urine Dip (Floor Use Only) 17:17:19 [employer] CPT-54198 Bladder Scan 17:17:19 [employer] CPT-OV Office Visit 11:50:26 [employer] CPT-99749 Bladder Scan 10:10:42 CDT CPT-03407 Venipuncture Draw Fee 09:14:04 CDT CPT-44038 Chest 2V Frontal and Lat 10:10:49 CDT CPT-75878 LS spine comp w obliq 11:50:11 CDT CPT-20541 Venipuncture Draw Fee 08:52:57 [employer] CPT-99443 Cystoscopy W/rem FB 18:37:28 CDT CPT-22762 Abd single AP View 16:18:40 CDT CPT-08734 Abd compl w upright 17:30:59 CDT
--- OUTSIDE RECORDS SUMMARY | 2016-11-22 15:43 | XMS REPORT | Clinical Summary ---
Author Author Admin, QIE Organization [employer] Address Unknown Phone Unavailable Allergies, Adverse Reactions, [...] collapse Iron deficiency 280.9 Active Jasmin Dixon ON LICENSE OF [facility] Iron deficiency anemia, unspecified NAUSEA [...] 1 tab po twice daily FERROUS SULFATE 19456590005 Active Jasmin TEIXEIRA Active D ORAL TABS 2000 iu weekly D ORAL TABS Active Capo Poe MD Active CITALOPRAM HYDROBROMIDE 20 MG TABS 1 tablet by mouth daily CITALOPRAM HYDROBROMIDE 94466961650 Active Capo Poe MD Active CLARITIN 5 MG ORAL CHEW 1 tab po q day LORATADINE 99377384834 Active Felisa TEIXEIRA Active VIIBRYD STARTER PACK 10 & 20 MG ORAL KIT 1 po qd as directed 2015 VILAZODONE HCL 56329910662 No Longer Active Felisa TEIXEIRA Active HYDROXYZINE HCL 25 MG TAB 1 po qHS PRN Insomnia HYDROXYZINE HCL 50971828412 Active Capo Poe MD Active LISINOPRIL 10 MG TABS 1 tablet by mouth daily LISINOPRIL 59751574447 Active Capo Poe MD Active LORTAB 7.5-325 MG ORAL TABS 1 po q 6 hr prn pain HYDROCODONE- ACETAMINOPHEN 56826255872 No Longer Active Capo Poe MD Active FLOMAX 0.4 MG CAPS Take one by mouth daily TAMSULOSIN HCL 49667886881 No Longer Active Capo Poe MD Active TRIAMCINOLONE ACETONIDE 0.1 % CREA Apply to affected areas TID for up to 2 weeks TRIAMCINOLONE ACETONIDE 22437948472 Active Capo Poe MD Active NICOTINE 14 MG/24HR TRANS PT24 Apply/Change q 24hr NICOTINE 87711483945 No Longer Active Capo Poe MD Active TRAMADOL HCL 50 MG TABS 1-2 tablets every 6 hours as needed for pain TRAMADOL HCL 12924100191 No Longer Active Capo Poe MD Active SERTRALINE HCL 100 MG ORAL TABS take 1 tab daily SERTRALINE HCL 59813339311 No Longer Active Capo Poe MD Active LISINOPRIL-HYDROCHLOROTHIAZIDE 10-12.5 MG TABS 0.5 tab by mouth daily LISINOPRIL-HYDROCHLOROTHIAZIDE 23513777545 No Longer Active Capo Poe MD Active OMEPRAZOLE 20 MG CPDR 1 tablet by mouth daily OMEPRAZOLE 73446931840 Active Capo Poe MD Active WELLBUTRIN SR 150 MG ORAL [id number] 1 po BID BUPROPION HCL 27485016563 No Longer Active Capo Poe MD Active MIRALAX PACK 1 po qd PRN Constipation POLYETHYLENE GLYCOL 3350 39987722838 Active Capo Poe MD Active DULERA 100-5 MCG/ACT AERO 2 puffs BID MOMETASONE FURO- FORMOTEROL FUM 15820657227 Active Capo Poe MD Active ZOLOFT 100 MG TABS 1 po daily SERTRALINE HCL 39607788961 No Longer Active Zoran Arzola MD Active FERROUS SULFATE 325 (65 FE) MG TABS 1 tablet by mouth daily FERROUS SULFATE 67598137809 No Longer Active Capo Poe MD Active HYDROCODONE-ACETAMINOPHEN 7.5-300 MG TABS take one every six hours HYDROCODONE-ACETAMINOPHEN 63205872202 No Longer Active Capo Poe MD Active TRIAMCINOLONE ACETONIDE 0.1 % OINT Apply to affected areas TID for up to 2 weeks TRIAMCINOLONE ACETONIDE 24567342961 No Longer Active Joe Vargas RN Active FERROUS SULFATE 325 (65 FE) MG TABS Take one by mouth daily FERROUS SULFATE 86869692301 No Longer Active Capo Poe MD Active TRIAMCINOLONE ACETONIDE 0.1 % OINT Apply to affected areas TID for up to 2 weeks TRIAMCINOLONE ACETONIDE 80490327192 No Longer Active Capo Poe MD Active ADULT ASPIRIN LOW STRENGTH 81 MG TBDP qd ASPIRIN 25085154157 Active Zoran Arzola MD Active ALEVE 220 MG TAB prn NAPROXEN SODIUM 48597898997 Active Capo Poe MD Active MACROBID 100 MG CAP 1 cap by mouth twice daily NITROFURANTOIN MONOHYD MACRO 72360386908 No Longer Active Dona Becker Active AZITHROMYCIN 250 MG TABS 2 po qd x 1 day, then 1 po qd x 4 days AZITHROMYCIN 88605125949 No Longer Active Capo Poe MD Active FISH OIL 500 MG CAPS by mouth twice a day OMEGA-3 FATTY ACIDS 72521899098 Active Capo Poe MD Active FLAXSEED OIL 1000 MG CAPS Take two by mouth daily FLAXSEED (LINSEED) 69929698194 Active Zoran Arzola MD Active RED YEAST RICE 600 MG CAPS Take two by mouth daily RED YEAST RICE EXTRACT 01639785760 Active Zoran Arzola MD Active MULTIVITAMINS CAPS Take one by mouth daily MULTIPLE VITAMIN 53265307101 Active Zoran Arzola MD Active ICAPS MV TABS 2 po daily MULTIPLE VITAMINS-MINERALS 06206922124 Active Jam Arnold DO Active MACROBID 100 MG CAP 1 cap by mouth twice daily MACROBID 100 MG CAP 2092106 NITROFURANTOIN MONOHYD MACRO Inactive FERROUS SULFATE 325 (65 FE) MG TABS Take one by mouth daily FERROUS SULFATE 325 (65 FE) MG TABS 385401 FERROUS SULFATE Inactive HYDROCODONE-ACETAMINOPHEN 7.5-300 MG TABS take one every six hours HYDROCODONE-ACETAMINOPHEN 7.5-300 MG TABS 626358 HYDROCODONE- ACETAMINOPHEN Inactive FERROUS SULFATE 325 (65 FE) MG TABS 1 tablet by mouth daily FERROUS SULFATE 325 (65 FE) MG TABS 935318 FERROUS SULFATE Inactive ZOLOFT 100 MG TABS 1 po daily ZOLOFT 100 MG TABS 160988 SERTRALINE HCL Inactive SERTRALINE HCL 100 MG ORAL TABS take 1 tab daily SERTRALINE HCL 100 MG ORAL TABS 629297 SERTRALINE HCL Inactive TRAMADOL HCL 50 MG TABS 1-2 tablets every 6 hours as needed for pain TRAMADOL HCL 50 MG TABS 556501 TRAMADOL HCL Inactive NICOTINE 14 MG/24HR TRANS PT24 Apply/Change q 24hr NICOTINE 14 MG/24HR TRANS PT24 263883 NICOTINE Inactive FLOMAX 0.4 MG CAPS Take one by mouth daily FLOMAX 0.4 MG CAPS 542408 TAMSULOSIN HCL Inactive LORTAB 7.5-325 MG ORAL TABS 1 po q 6 hr prn pain LORTAB 7.5- 325 MG ORAL TABS 944335 HYDROCODONE-ACETAMINOPHEN Inactive VIIBRYD STARTER PACK 10 & 20 MG ORAL KIT 1 po qd as directed 2015 VIIBRYD STARTER PACK 10 & 20 MG ORAL KIT VILAZODONE HCL Inactive AZITHROMYCIN 250 MG TABS 2 po qd x 1 day, then 1 po qd x 4 days AZITHROMYCIN 250 MG TABS 3748629 AZITHROMYCIN Inactive TRIAMCINOLONE ACETONIDE 0.1 % OINT Apply to affected areas TID for up to 2 weeks TRIAMCINOLONE ACETONIDE 0.1 % OINT 9394773 TRIAMCINOLONE ACETONIDE Inactive TRIAMCINOLONE ACETONIDE 0.1 % OINT Apply to affected areas TID for up to 2 weeks TRIAMCINOLONE ACETONIDE 0.1 % OINT 9959410 TRIAMCINOLONE ACETONIDE Inactive Advance Directives Directive Description [...] ... - Chemistry sodium, serum 141 mmol/L 736-074 5952/01/27 carbon dioxide, venous blood 29.7 mmol/L 21.0-32.0 [...] ... - Chemistry sodium, serum 138 mmol/L 622-698 6124/03/18 carbon dioxide, venous blood 25.5 mmol/L 21.0-32.0 potassium, serum 4.6 mmol/L 3.5-5.2 chloride, serum 101 mmol/L 98-107 blood glucose 129 mg/dL 65-110 urea nitrogen, blood 20 mg/dL 7-18 creatinine, serum 1.87 mg/dL 0.55-1.30 alanine aminotransferase (SGPT), serum 26 U/L 12-78 aspartate aminotransferase (SGOT), serum 20 U/L 15-37 calcium, serum 8.8 mg/dL 8.5-10.1 bilirubin, serum, total 0.40 mg/dL 0.00-1.00 cholesterol, serum 251 mg/dL 190-940 3397/03/18 triglyceride, serum, fasting 135 mg/dL 30-200 HDL [...] 0-19 Encounters Code Encounter Date Provider Facility CPT-96512 Level 4 Est. Patient 09:26:11 [employer] Capo Poe MD [facility] CPT-80621 Level 4 Est. Patient 08:53:08 CDT Capo Poe MD [facility] CPT-18607 Level 4 Est. Patient 10:22:57 CDT Capo Poe MD [facility] CPT-90069 Level 4 Est. Patient 13:44:30 CDT Capo Poe MD [facility] CPT-11054 Level 3 Est. Patient 14:59:32 [employer] Capo Poe MD [facility] CPT-24860 Level 4 Est. Patient 10:46:15 [employer] Capo Poe MD [facility] CPT-72577 Level 3 Est. Patient 11:00:53 CDT Capo Poe MD [facility] CPT-09675 Level 3 Est. Patient 09:39:35 CDT Capo Poe MD [facility] CPT-73059 Level 3 Est. Patient 09:27:01 CDT Capo Poe MD [facility] CPT-46208 Level 3 Est. Patient 18:37:08 CDT Zoran Arzola MD [facility] CPT-21659 Level 3 Est. Patient 15:00:28 CDT Capo Poe MD [facility] CPT-80104 Level 3 Est. Patient 08:20:19 CDT Zoran Arzola MD [facility] CPT-60910 Level 3 Est. Patient 09:22:21 CDT Capo Poe MD [facility] CPT-79475 Level 4 Est. Patient 10:21:30 [employer] Capo Poe MD [facility] CPT-93813 Level 3 Est. Patient 17:08:51 [employer] Zoran Arzola MD [facility] CPT-93043 Level 4 Est. Patient 09:44:42 CDT Capo Poe MD [facility] CPT-91227 Level 4 Est. Patient 10:39:29 CDT Capo Poe MD [facility] CPT-28173 Level 3 Est. Patient 17:45:23 CDT Zoran Arzola MD [facility] CPT-34255 Level 4 Est. Patient 08:50:44 CDT Capo Poe MD [facility] CPT-52148 Level 3 Est. Patient 10:39:51 [employer] Capo Poe MD [facility] CPT-36546 Level 4 Est. Patient 09:44:24 [employer] Capo Poe MD [facility] CPT-01481 Level 3 Est. Patient 14:48:42 [employer] Zoran Arzola MD [facility] CPT-47332 Level 4 Est. Patient 10:24:02 CDT Capo Poe MD [facility] CPT-85504 Level 3 Est. Patient 15:42:00 CDT Maya DUKES [facility] CPT-85891 Level 4 Est. Patient 13:34:15 CDT Capo Poe MD [facility] CPT-74556 Level 3 Est. Patient 15:32:10 [employer] Zoran Arzola MD [facility] CPT-33099 Level 3 New Patient 17:17:19 [employer] Zoran Arzola MD [facility] CPT-25153 Level 4 Est. Patient 10:25:01 [employer] Capo Poe MD [facility] CPT-52332 Level 3 Est. Patient 10:10:42 CDT Zoran Arzola MD [facility] CPT-87638 Level 3 Est. Patient 22:30:02 CDT Zoran Arzola MD [facility] CPT-14991 Level 4 Est. Patient 09:54:20 CDT Capo Poe MD [facility] CPT-84177 Level 3 Est. Patient 10:48:30 CDT Capo Poe MD [facility] CPT-80698 Level 3 Est. Patient 11:24:45 CDT Capo Poe MD [facility] CPT-55650 Level 3 Est. Patient 15:23:48 [employer] Capo Poe MD [facility] CPT-76312 Level 3 Est. Patient 15:10:03 [employer] Capo Poe MD [facility] CPT-35633 Level 3 Est. Patient 16:18:40 CDT Zoran Arzola MD [facility] Procedures Code Procedure Name Date Entry Date Standard Description CPT-60701 Hemoccult IFOBT - LAB USE ONLY 14:11:43 [employer] CPT-04191 TPSA - LAB USE ONLY 10:37:52 [employer] CPT-57718 TSH - LAB USE ONLY 10:37:51 [employer] CPT-99002 CMP - LAB USE ONLY 10:37:51 [employer] CPT-32556 CBC with Diff - LAB USE ONLY 10:37:51 [employer] CPT-13534 Venipuncture Draw Fee 10:37:51 [employer] CPT-000 Give Pneumovax 10:39:30 CDT CPT-81114 Venipuncture Draw Fee 09:32:34 CDT CPT-G0438 Initial Annual Wellness Exam 10:24:35 CDT CPT-87067 Venipuncture Draw Fee 09:46:29 CDT CPT-77886 Venipuncture Draw Fee 14:30:06 CDT CPT-56175 Venipuncture Draw Fee 10:58:22 CDT CPT-03215 Abd single AP View 08:32:00 CDT CPT-50156 Postop F/U Visit 21:13:08 CDT CPT-83367 Abd single AP View 15:50:24 CDT CPT-46459 Cystoscopy W/rem FB 15:21:28 CDT CPT-47876 Abd single AP View 14:06:45 CDT CPT-76996 Postop F/U Visit 09:48:32 CDT CPT-20793 Abd single AP View 13:58:26 CDT CPT-47125 Hip comp min 2V 10:27:18 [employer] CPT-67285 Urine Dip (Floor Use Only) 13:41:01 [employer] CPT-79653 Postop F/U Visit 11:17:48 CDT CPT-LR Lesion Removal 11:50:22 CDT CPT-OV Office Visit 11:50:22 CDT CPT-55669 Pneumovax 23 10:55:48 CDT CPT-02441 Administration single or combination vaccine inc oral 10 :55:48 CDT CPT-Cryo Cryotherapy 11:18:11 CDT CPT-OV Office Visit 11:18:11 CDT CPT-65064 LS spine AP and Lat 09:05:22 CDT CPT-36385 Bladder Scan 15:42:00 CDT CPT-89785 Cystoscopy 15:42:00 CDT CPT-OV Office Visit 16:37:19 [employer] CPT-99842 Bladder Scan 15:32:10 [employer] CPT-49092 Cystoscopy 15:32:10 [employer] CPT-31987 Abd single AP View 14:05:59 [employer] CPT-91173 Pill cam small bowel 09:48:39 [employer] CPT-39360 Urine Dip (Floor Use Only) 17:17:19 [employer] CPT-35282 Bladder Scan 17:17:19 [employer] CPT-OV Office Visit 11:50:26 [employer] CPT-58823 Bladder Scan 10:10:42 CDT CPT-42452 Venipuncture Draw Fee 09:14:04 CDT CPT-78262 Chest 2V Frontal and Lat 10:10:49 CDT CPT-10088 LS spine comp w obliq 11:50:11 CDT CPT-12619 Venipuncture Draw Fee 08:52:57 [employer] CPT-48171 Cystoscopy W/rem FB 18:37:28 CDT CPT-75146 Abd single AP View 16:18:40 CDT CPT-18583 Abd compl w upright 17:30:59 CDT
--- OUTSIDE RECORDS SUMMARY | 2016-11-22 15:44 | XMS REPORT | Clinical Summary ---
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 Simin [...] BRONCHITIS, ACUTE ICD-466.0 Inactive Capo Poe MD COUGH ICD-786.2 Inactive Capo Poe MD ELEVATED P S A ICD-790.93 Inactive Capo Poe MD URINARY TRACT INFECTION ICD-599.0 Inactive Capo Poe MD Anemia, iron deficiency ICD-280.9 Inactive Capo Poe MD U T I-RECURRENT ICD-599.0 Inactive Capo Poe MD BLADDER CALCULUS ICD-594.1 Inactive Capo Poe MD HEMATURIA ICD-599.70 Inactive Capo Poe MD URINARY FREQUENCY ICD-788.41 Inactive Capo Poe MD HEMATURIA ICD-599.70 Inactive Capo Poe MD BLADDER CALCULUS ICD-594.1 Inactive Capo Poe MD U T I-RECURRENT ICD-599.0 Inactive Capo Poe MD RASH AND OTHER NONSPECIFIC SKIN ERUPTION ICD-782.1 Inactive Capo Poe MD Near syncope ICD-780.2 Inactive Capo Poe MD Lumbar radiculopathy ICD-724.4 Inactive Capo Poe MD Ecchymoses, spontaneous ICD-782.7 Inactive Capo Poe MD Skin lesion ICD-709.9 Inactive Capo Poe MD Hematuria ICD-599.70 Inactive Capo Poe MD Sciatica, right ICD-724.3 Inactive Capo Poe MD Renal Calculus ICD-592.9 Inactive Capo Poe MD Urethral calculus ICD-594.2 Inactive Capo Poe MD Chest pain ICD-786.50 Clyde Poe MD Prostate cancer screening ICD-V76.44 Clyde Poe MD Pruritic rash ICD-698.8 Inactive Capo Poe MD Elevated creatinine ICD-790.4 Clyde Poe 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 Clyde Poe MD UTI ICD-599.0 Clyde Poe MD Medication List Medication Instructions Start Date Stop Date Generic Name NDC Status Provider Patient Instruction LEVAQUIN 500 MG TABS 1 daily for infection LEVOFLOXACIN 93604002481 Active Leanna Baker APRN Active AZITHROMYCIN 250 MG ORAL TABS 2 po qd x 1, then 1 po qd x 4 AZITHROMYCIN 53763881147 Active Capo Poe MD Active PREDNISONE 20 MG ORAL TABS 2 po qd x 5 days PREDNISONE 82956297560 No Longer Active Capo Poe MD Active CARAFATE 1 GM ORAL TABS 1 tid SUCRALFATE 14826736958 Active Capo Poe MD Active RANITIDINE HCL 150 MG ORAL TABS 1 bid RANITIDINE HCL 43649643295 Active Capo Poe MD Active MULTIVITAMINS CAPS Take one by mouth daily MULTIPLE VITAMIN 60519979025 No Longer Active Capo Poe MD Active LISINOPRIL 10 MG TABS 1 tablet by mouth daily LISINOPRIL 76339916430 No Longer Active Capo Poe MD Active EQL IRON SUPPLEMENT THERAPY 325 MG ORAL TABS 1 tab po twice daily FERROUS SULFATE 47578495116 Active Jasmin Arboledalas RMA Active D ORAL TABS 2000 iu weekly D ORAL TABS Active Capo Poe MD Active CITALOPRAM HYDROBROMIDE 20 MG TABS 1 tablet by mouth daily CITALOPRAM HYDROBROMIDE 41577718678 Active Capo Poe MD Active CLARITIN 5 MG ORAL CHEW 1 tab po q day LORATADINE 79967703556 Active Felisa Daphney RMA Active VIIBRYD STARTER PACK 10 & 20 MG ORAL KIT 1 po qd as directed 2015 VILAZODONE HCL 95507955892 No Longer Active Felisa Daphney RMA Active HYDROXYZINE HCL 25 MG TAB 1 po qHS PRN Insomnia HYDROXYZINE HCL 71228411481 Active Capo Poe MD Active LORTAB 7.5-325 MG ORAL TABS 1 po q 6 hr prn pain HYDROCODONE- ACETAMINOPHEN 27529951701 No Longer Active Capo Poe MD Active FLOMAX 0.4 MG CAPS Take one by mouth daily TAMSULOSIN HCL 56714717767 No Longer Active Capo Poe MD Active TRIAMCINOLONE ACETONIDE 0.1 % CREA Apply to affected areas TID for up to 2 weeks TRIAMCINOLONE ACETONIDE 33456730210 Active Capo Poe MD Active NICOTINE 14 MG/24HR TRANS PT24 Apply/Change q 24hr NICOTINE 92880241071 No Longer Active Capo Poe MD Active TRAMADOL HCL 50 MG TABS 1-2 tablets every 6 hours as needed for pain TRAMADOL HCL 13239374944 No Longer Active Capo Poe MD Active SERTRALINE HCL 100 MG ORAL TABS take 1 tab daily SERTRALINE HCL 56970358303 No Longer Active Capo Poe MD Active LISINOPRIL-HYDROCHLOROTHIAZIDE 10-12.5 MG TABS 0.5 tab by mouth daily LISINOPRIL-HYDROCHLOROTHIAZIDE 20724226198 No Longer Active Capo Poe MD Active OMEPRAZOLE 20 MG CPDR 1 tablet by mouth daily OMEPRAZOLE 45044966843 Active Capo Poe MD Active WELLBUTRIN SR 150 MG ORAL PG17N-TYT 1 po BID BUPROPION HCL 88524676575 No Longer Active Capo Poe MD Active MIRALAX PACK 1 po qd PRN Constipation POLYETHYLENE GLYCOL 3350 54377789739 Active Capo Poe MD Active DULERA 100-5 MCG/ACT AERO 2 puffs BID MOMETASONE FURO- FORMOTEROL FUM 35210193099 Active Capo Poe MD Active ZOLOFT 100 MG TABS 1 po daily SERTRALINE HCL 92484844415 No Longer Active Zoran Arzola MD Active FERROUS SULFATE 325 (65 FE) MG TABS 1 tablet by mouth daily FERROUS SULFATE 68348549103 No Longer Active Capo Poe MD Active HYDROCODONE-ACETAMINOPHEN 7.5-300 MG TABS take one every six hours HYDROCODONE-ACETAMINOPHEN 58102149177 No Longer Active Capo Poe MD Active TRIAMCINOLONE ACETONIDE 0.1 % OINT Apply to affected areas TID for up to 2 weeks TRIAMCINOLONE ACETONIDE 83526745231 No Longer Active Joe Vargas RN Active FERROUS SULFATE 325 (65 FE) MG TABS Take one by mouth daily FERROUS SULFATE 78096156291 No Longer Active Capo Poe MD Active TRIAMCINOLONE ACETONIDE 0.1 % OINT Apply to affected areas TID for up to 2 weeks TRIAMCINOLONE ACETONIDE 95250054953 No Longer Active Capo Poe MD Active ADULT ASPIRIN LOW STRENGTH 81 MG TBDP qd ASPIRIN 43322647261 Active Zoran Arzola MD Active ALEVE 220 MG TAB prn NAPROXEN SODIUM 54703662004 Active Capo Poe MD Active MACROBID 100 MG CAP 1 cap by mouth twice daily NITROFURANTOIN MONOHYD MACRO 47982834220 No Longer Active Dona Becker Active AZITHROMYCIN 250 MG TABS 2 po qd x 1 day, then 1 po qd x 4 days AZITHROMYCIN 82600167957 No Longer Active Capo Poe MD Active FISH OIL 500 MG CAPS by mouth twice a day OMEGA-3 FATTY ACIDS 70178746179 Active Capo Poe MD Active FLAXSEED OIL 1000 MG CAPS Take two by mouth daily FLAXSEED (LINSEED) 73311382614 Active Zoran Arzola MD Active RED YEAST RICE 600 MG CAPS Take two by mouth daily RED YEAST RICE EXTRACT 75085186857 Active Zoran Arzola MD Active ICAPS MV TABS 2 po daily MULTIPLE VITAMINS-MINERALS 37382318740 Active Jam Arnold DO Active MACROBID 100 MG CAP 1 cap by mouth twice daily MACROBID 100 MG CAP 7079193 NITROFURANTOIN MONOHYD MACRO Inactive FERROUS SULFATE 325 (65 FE) MG TABS Take one by mouth daily FERROUS SULFATE 325 (65 FE) MG TABS 865825 FERROUS SULFATE Inactive HYDROCODONE-ACETAMINOPHEN 7.5-300 MG TABS take one every six hours HYDROCODONE-ACETAMINOPHEN 7.5-300 MG TABS 447958 HYDROCODONE- ACETAMINOPHEN Inactive FERROUS SULFATE 325 (65 FE) MG TABS 1 tablet by mouth daily FERROUS SULFATE 325 (65 FE) MG TABS 694352 FERROUS SULFATE Inactive ZOLOFT 100 MG TABS 1 po daily ZOLOFT 100 MG TABS 162479 SERTRALINE HCL Inactive SERTRALINE HCL 100 MG ORAL TABS take 1 tab daily SERTRALINE HCL 100 MG ORAL TABS 117281 SERTRALINE HCL Inactive TRAMADOL HCL 50 MG TABS 1-2 tablets every 6 hours as needed for pain TRAMADOL HCL 50 MG TABS 212182 TRAMADOL HCL Inactive NICOTINE 14 MG/24HR TRANS PT24 Apply/Change q 24hr NICOTINE 14 MG/24HR TRANS PT24 783044 NICOTINE Inactive FLOMAX 0.4 MG CAPS Take one by mouth daily FLOMAX 0.4 MG CAPS 955859 TAMSULOSIN HCL Inactive LORTAB 7.5-325 MG ORAL TABS 1 po q 6 hr prn pain LORTAB 7.5- 325 MG ORAL TABS 522888 HYDROCODONE-ACETAMINOPHEN Inactive VIIBRYD STARTER PACK 10 & 20 MG ORAL KIT 1 po qd as directed 2015 VIIBRYD STARTER PACK 10 & 20 MG ORAL KIT VILAZODONE HCL Inactive LISINOPRIL 10 MG TABS 1 tablet by mouth daily LISINOPRIL 10 MG TABS 481005 LISINOPRIL Inactive MULTIVITAMINS CAPS Take one by mouth daily MULTIVITAMINS CAPS MULTIPLE VITAMIN Inactive AZITHROMYCIN 250 MG TABS 2 po qd x 1 day, then 1 po qd x 4 days AZITHROMYCIN 250 MG TABS 8244857 AZITHROMYCIN Inactive TRIAMCINOLONE ACETONIDE 0.1 % OINT Apply to affected areas TID for up to 2 weeks TRIAMCINOLONE ACETONIDE 0.1 % OINT 5235931 TRIAMCINOLONE ACETONIDE Inactive TRIAMCINOLONE ACETONIDE 0.1 % OINT Apply to affected areas TID for up to 2 weeks TRIAMCINOLONE ACETONIDE 0.1 % OINT 2235323 TRIAMCINOLONE ACETONIDE Inactive PREDNISONE 20 MG ORAL TABS 2 po qd x 5 days PREDNISONE 20 MG ORAL TABS 050750 PREDNISONE Inactive Advance Directives Directive Description Start [...] Panel - Chemistry sodium, serum 137 mmol/L 654-646 8501/07/26 carbon dioxide, venous blood 27.3 mmol/L 21.0-32.0 [...] ... - Chemistry sodium, serum 141 mmol/L 758-385 9872/01/27 carbon dioxide, venous blood 29.7 mmol/L 21.0-32.0 [...] % 11.0-15.0 platelet count 214 THOUSAND/UL 10*3/mm3 525-154 2456/03/31 mean platelet volume 8.4 fL 7.5-12.5 Encounters Code Encounter Date Provider Facility CPT-89077 Level 3 Est. Patient 11:31:49 CDT Leanna Baker APRN [facility] CPT-00761 Level 3 Est. Patient 09:44:06 CDT Capo Poe MD [facility] CPT-16675 Level 4 Est. Patient 09:26:11 SALON LEADER Capo Poe MD [facility] CPT-79949 Level 4 Est. Patient 08:53:08 CDT Capo Poe MD [facility] CPT-87776 Level 4 Est. Patient 10:22:57 CDT Capo Poe MD [facility] CPT-92094 Level 4 Est. Patient 13:44:30 CDT Capo Poe MD [facility] CPT-78290 Level 3 Est. Patient 14:59:32 SALON LEADER Capo Poe MD [facility] CPT-50865 Level 4 Est. Patient 10:46:15 SALON LEADER Capo Poe MD [facility] CPT-28268 Level 3 Est. Patient 11:00:53 CDT Capo Poe MD [facility] CPT-34941 Level 3 Est. Patient 09:39:35 CDT Capo Poe MD [facility] CPT-52424 Level 3 Est. Patient 09:27:01 CDT Capo Poe MD [facility] CPT-94804 Level 3 Est. Patient 18:37:08 CDT Zoran Arzola MD [facility] CPT-85636 Level 3 Est. Patient 15:00:28 CDT Capo Poe MD [facility] CPT-00416 Level 3 Est. Patient 08:20:19 CDT Zoran Arzola MD [facility] CPT-27490 Level 3 Est. Patient 09:22:21 CDT Capo Poe MD [facility] CPT-46814 Level 4 Est. Patient 10:21:30 SALON LEADER Capo Poe MD [facility] CPT-17632 Level 3 Est. Patient 17:08:51 SALON LEADER Zoran Arzola MD [facility] CPT-82214 Level 4 Est. Patient 09:44:42 CDT Capo Poe MD [facility] CPT-98302 Level 4 Est. Patient 10:39:29 CDT Capo Poe MD [facility] CPT-40312 Level 3 Est. Patient 17:45:23 CDT Zoran Arzola MD [facility] CPT-61787 Level 4 Est. Patient 08:50:44 CDT Capo Poe MD [facility] CPT-37816 Level 3 Est. Patient 10:39:51 SALON LEADER Capo Poe MD [facility] CPT-53689 Level 4 Est. Patient 09:44:24 SALON LEADER Capo Poe MD [facility] CPT-52164 Level 3 Est. Patient 14:48:42 SALON LEADER Zoran Arzola MD [facility] CPT-99143 Level 4 Est. Patient 10:24:02 CDT Capo Poe MD [facility] CPT-93517 Level 3 Est. Patient 15:42:00 CDT Maya WRIGHTP [facility] CPT-77294 Level 4 Est. Patient 13:34:15 CDT Capo Poe MD [facility] CPT-56033 Level 3 Est. Patient 15:32:10 SALON LEADER Zoran Arzola MD [facility] CPT-45311 Level 3 New Patient 17:17:19 SALON LEADER Zoran Arzola MD [facility] CPT-47634 Level 4 Est. Patient 10:25:01 SALON LEADER Capo Poe MD [facility] CPT-70421 Level 3 Est. Patient 10:10:42 CDT Zoran Arzola MD [facility] CPT-70439 Level 3 Est. Patient 22:30:02 CDT Zoran Arzola MD [facility] CPT-17005 Level 4 Est. Patient 09:54:20 CDT Capo Poe MD [facility] CPT-38121 Level 3 Est. Patient 10:48:30 CDT Capo Poe MD [facility] CPT-26615 Level 3 Est. Patient 11:24:45 CDT Capo Poe MD [facility] CPT-00862 Level 3 Est. Patient 15:23:48 SALON LEADER Capo Poe MD [facility] CPT-28889 Level 3 Est. Patient 15:10:03 SALON LEADER Capo Poe MD [facility] CPT-42657 Level 3 Est. Patient 16:18:40 CDT Zoran Arzola MD [facility] Procedures Code Procedure Name Date Entry Date Standard Description CPT-47954 Chest 2V Frontal and Lat - XRAY USE ONLY 11:51:24 CDT CPT-61649 Venipuncture Draw Fee 11:31:49 CDT CPT-83804 Hemoccult IFOBT - LAB USE ONLY 14:11:43 SALON LEADER CPT-39909 TPSA - LAB USE ONLY 10:37:52 SALON LEADER CPT-84071 TSH - LAB USE ONLY 10:37:51 SALON LEADER CPT-03347 CMP - LAB USE ONLY 10:37:51 SALON LEADER CPT-15258 CBC with Diff - LAB USE ONLY 10:37:51 SALON LEADER CPT-30252 Venipuncture Draw Fee 10:37:51 SALON LEADER CPT-000 Give Pneumovax 10:39:30 CDT CPT-75845 Venipuncture Draw Fee 09:32:34 CDT CPT-G0438 Initial Annual Wellness Exam 10:24:35 CDT CPT-35103 Venipuncture Draw Fee 09:46:29 CDT CPT-05792 Venipuncture Draw Fee 14:30:06 CDT CPT-07951 Venipuncture Draw Fee 10:58:22 CDT CPT-31647 Abd single AP View 08:32:00 CDT CPT-88377 Postop F/U Visit 21:13:08 CDT CPT-76595 Abd single AP View 15:50:24 CDT CPT-99725 Cystoscopy W/rem FB 15:21:28 CDT CPT-87499 Abd single AP View 14:06:45 CDT CPT-38411 Postop F/U Visit 09:48:32 CDT CPT-47987 Abd single AP View 13:58:26 CDT CPT-91545 Hip comp min 2V 10:27:18 SALON LEADER CPT-59911 Urine Dip (Floor Use Only) 13:41:01 SALON LEADER CPT-95960 Postop F/U Visit 11:17:48 CDT CPT-LR Lesion Removal 11:50:22 CDT CPT-OV Office Visit 11:50:22 CDT CPT-03364 Pneumovax 23 10:55:48 CDT CPT-40543 Administration single or combination vaccine inc oral 10 :55:48 CDT CPT-Cryo Cryotherapy 11:18:11 CDT CPT-OV Office Visit 11:18:11 CDT CPT-39215 LS spine AP and Lat 09:05:22 CDT CPT-27661 Bladder Scan 15:42:00 CDT CPT-76891 Cystoscopy 15:42:00 CDT CPT-OV Office Visit 16:37:19 SALON LEADER CPT-04791 Bladder Scan 15:32:10 SALON LEADER CPT-30845 Cystoscopy 15:32:10 SALON LEADER CPT-40991 Abd single AP View 14:05:59 SALON LEADER CPT-63163 Pill cam small bowel 09:48:39 SALON LEADER CPT-10757 Urine Dip (Floor Use Only) 17:17:19 SALON LEADER CPT-08367 Bladder Scan 17:17:19 SALON LEADER CPT-OV Office Visit 11:50:26 SALON LEADER CPT-82339 Bladder Scan 10:10:42 CDT CPT-70591 Venipuncture Draw Fee 09:14:04 CDT CPT-35757 Chest 2V Frontal and Lat 10:10:49 CDT CPT-38809 LS spine comp w obliq 11:50:11 CDT CPT-92987 Venipuncture Draw Fee 08:52:57 SALON LEADER CPT-10623 Cystoscopy W/rem FB 18:37:28 CDT CPT-49049 Abd single AP View 16:18:40 CDT CPT-25484 Abd compl w upright 17:30:59 CDT
[2016-11-22] MEDS: LACTATED RINGERS 1,000 ML IV PRN ×2 (15:45→17:35)
--- OUTSIDE RECORDS SUMMARY | 2016-11-22 15:45 | XMS REPORT | Clinical Summary ---
Author Author Admin, MARGE Organization [facility] Address Unknown Phone Unavailable Allergies, Adverse [...] unspecified U T I-RECURRENT 599.0 Resolved Capo Peo MD Urinary tract [...] unspecified NAUSEA AND VOMITING ICD-787.01 Inactive Capo oPe MD CALCULUS OF KIDNEY ICD-592.0 Inactive Capo [...] 2 puffs BID MOMETASONE FURO- FORMOTEROL FUM 68878647734 Active Capo Poe MD Active SERTRALINE HCL 100 MG ORAL TABS take 1 tab daily SERTRALINE HCL 49262774115 Active Capo Poe MD Active ZOLOFT 100 MG TABS 1 po daily SERTRALINE HCL 63555091665 No Longer Active Zoran Arzola MD Active FERROUS SULFATE 325 (65 FE) MG TABS 1 tablet by mouth daily FERROUS SULFATE 69297966618 No Longer Active Capo Poe MD Active TRAMADOL HCL 50 MG TABS 1-2 tablets every 6 hours as needed for pain TRAMADOL HCL 68831721006 Active Capo Poe MD Active HYDROCODONE-ACETAMINOPHEN 7.5-300 MG TABS take one every six hours HYDROCODONE-ACETAMINOPHEN 08533731444 No Longer Active Capo Poe MD Active TRIAMCINOLONE ACETONIDE 0.1 % OINT Apply to affected areas TID for up to 2 weeks TRIAMCINOLONE ACETONIDE 75844515691 No Longer Active Joe Vargas RN Active FERROUS SULFATE 325 (65 FE) MG TABS Take one by mouth daily FERROUS SULFATE 71534575708 No Longer Active Capo Poe MD Active TRIAMCINOLONE ACETONIDE 0.1 % OINT Apply to affected areas TID for up to 2 weeks TRIAMCINOLONE ACETONIDE 70517738340 No Longer Active Capo Poe MD Active ADULT ASPIRIN LOW STRENGTH 81 MG TBDP qd ASPIRIN 09527326217 Active Zoran Arzola MD Active ALEVE 220 MG TAB prn NAPROXEN SODIUM 15301623617 Active Capo Poe MD Active LISINOPRIL-HYDROCHLOROTHIAZIDE 10-12.5 MG TABS 1 tab by mouth daily LISINOPRIL-HYDROCHLOROTHIAZIDE 55378407282 Active Capo Poe MD Active MACROBID 100 MG CAP 1 cap by mouth twice daily NITROFURANTOIN MONOHYD MACRO 10621160011 No Longer Active Dona Becker Active AZITHROMYCIN 250 MG TABS 2 po qd x 1 day, then 1 po qd x 4 days AZITHROMYCIN 00663685735 No Longer Active Capo Poe MD Active FISH OIL 500 MG CAPS by mouth twice a day OMEGA-3 FATTY ACIDS 00251588109 Active Capo Poe MD Active FLAXSEED OIL 1000 MG CAPS Take two by mouth daily FLAXSEED (LINSEED) 67463058883 Active Zoran Arzola MD Active RED YEAST RICE 600 MG CAPS Take two by mouth daily RED YEAST RICE EXTRACT 68156229589 Active Zoran Arzola MD Active MULTIVITAMINS CAPS Take one by mouth daily MULTIPLE VITAMIN 70906245279 Active Zoran Arzola MD Active ICAPS MV TABS 2 po daily MULTIPLE VITAMINS-MINERALS 68332414566 Active Jam Arnold DO Active MACROBID 100 MG CAP 1 cap by mouth twice daily MACROBID 100 MG CAP 248790 NITROFURANTOIN MONOHYD MACRO Inactive FERROUS SULFATE 325 (65 FE) MG TABS Take one by mouth daily FERROUS SULFATE 325 (65 FE) MG TABS 959155 FERROUS SULFATE Inactive HYDROCODONE-ACETAMINOPHEN 7.5-300 MG TABS take one every six hours HYDROCODONE-ACETAMINOPHEN 7.5-300 MG TABS 293010 HYDROCODONE- ACETAMINOPHEN Inactive FERROUS SULFATE 325 (65 FE) MG TABS 1 tablet by mouth daily FERROUS SULFATE 325 (65 FE) MG TABS 591533 FERROUS SULFATE Inactive ZOLOFT 100 MG TABS 1 po daily ZOLOFT 100 MG TABS 997651 SERTRALINE HCL Inactive AZITHROMYCIN 250 MG TABS 2 po qd x 1 day, then 1 po qd x 4 days AZITHROMYCIN 250 MG TABS 9798130 AZITHROMYCIN Inactive TRIAMCINOLONE ACETONIDE 0.1 % OINT Apply to affected areas TID for up to 2 weeks TRIAMCINOLONE ACETONIDE 0.1 % OINT 6296321 TRIAMCINOLONE ACETONIDE Inactive TRIAMCINOLONE ACETONIDE 0.1 % OINT Apply to affected areas TID for up to 2 weeks TRIAMCINOLONE ACETONIDE 0.1 % OINT 4239169 TRIAMCINOLONE ACETONIDE Inactive Advance Directives Directive Description [...] Description Chart Maintenance: Outside labs entered on [employer] - Chemistry sodium, serum 137 mmol/L potassium, [...] Panel - Chemistry sodium, serum 140 mmol/L 533-529 0202/05/21 potassium, serum 4.0 mmol/L 3.5-5.2 chloride, serum [...] CBC W/DIFF, Comp. Metabolic Panel - Hematology erythrocyte (RBC) count 4.15 10^6/MM^3 10*6/mm3 4.69-6.13 lymphocytes as percent of blood leukocytes 18.0 % 20.5-51.1 monocytes as percent of blood leukocytes 6.2 % 1.7-9.3 neutrophils as percent of blood leukocytes 72.8 % 42.2-75.2 leukocyte count, blood 7.6 10^3/MM^3 10*3/mm3 4.6-10.2 mean corpuscular hemoglobin concentration, RBC 33.5 G/DL % 31.8- 35.4 mean corpuscular hemoglobin, RBC 31.6 pg 27.0-31.2 mean corpuscular volume, RBC 94 fL 80-97 hematocrit, blood 39.2 % 41.0-53.0 hemoglobin, blood 13.1 g/dL 13.5-17.5 red blood cell distribution width 14.8 % [...] CBC - Chemistry cholesterol, serum 207 mg/dL 215-989 6524/02/11 triglyceride, serum, fasting 74 mg/dL 30-200 HDL cholesterol, serum 62 mg/dL 32-96 LDL cholesterol, serum 130 mg/dL 0-130 sodium, serum 144 mmol/L 216-406 7841/02/11 potassium, serum 5.0 mmol/L 3.5-5.2 chloride, serum [...] negative Office Visit: Follow up - Chemistry protein, total urine random 1+ mg/dL RBC, urine, dipstick negative Office Visit: Follow up - Urinalysis ketones, urine, by test strip negative bilirubin, urine negative glucose, urine, semiquantitative negative pH, urine, semiquantitative 7 specific gravity, urine 1.015 urinalysis, routine Clean Catch culture status Yes urine color yellow appearance, urine clear leukocyte esterase, urine, by dipstick 3+ nitrite, urine, semiquantitative positive urobilinogen, urine, semiquantitative (dipstick) 0.2 protein, urine, semiquantitative (dipstick) negative Encounters Code Encounter Date Provider Facility CPT-50420 Level 3 Est. Patient 08:20:19 CDT Zoran Arzola MD [facility] CPT-72430 Level 3 Est. Patient 09:22:21 CDT Capo Poe MD [facility]-50330 Level 4 Est. Patient 10:21:30 REJECTED ITEMS CLERK Capo Poe MD [facility] CPT-28653 Level 3 Est. Patient 17:08:51 REJECTED ITEMS CLERK Zoran Arzola MD [facility] CPT-92010 Level 4 Est. Patient 09:44:42 CDT Capo Poe MD [facility] CPT-93050 Level 4 Est. Patient 10:39:29 CDT Capo Poe MD [facility] CPT-39830 Level 3 Est. Patient 17:45:23 CDT Zoran Arzola MD [facility] CPT-42548 Level 4 Est. Patient 08:50:44 CDT Capo Poe MD [facility] CPT-44054 Level 3 Est. Patient 10:39:51 REJECTED ITEMS CLERK Capo Poe MD [facility] CPT-09055 Level 4 Est. Patient 09:44:24 REJECTED ITEMS CLERK Capo Poe MD [facility] CPT-82885 Level 3 Est. Patient 14:48:42 REJECTED ITEMS CLERK Zoran Arzola MD [facility] CPT-40478 Level 4 Est. Patient 10:24:02 CDT Capo Poe MD [facility] CPT-54867 Level 3 Est. Patient 15:42:00 CDT Maya Brownlee ERNST [facility] CPT-84906 Level 4 Est. Patient 13:34:15 CDT Capo Poe MD [facility] CPT-85061 Level 3 Est. Patient 15:32:10 REJECTED ITEMS CLERK Zoran Arzola MD [facility] CPT-50641 Level 3 New Patient 17:17:19 REJECTED ITEMS CLERK Zoran Arzola MD [facility] CPT-37819 Level 4 Est. Patient 10:25:01 REJECTED ITEMS CLERK Capo Poe MD [facility] CPT-62805 Level 3 Est. Patient 10:10:42 CDT Zoran Arzola MD [facility] CPT-97718 Level 3 Est. Patient 22:30:02 CDT Zoran Arzola MD [facility] CPT-38671 Level 4 Est. Patient 09:54:20 CDT Capo Poe MD [facility] CPT-01711 Level 3 Est. Patient 10:48:30 CDT Capo Poe MD [facility] CPT-92822 Level 3 Est. Patient 11:24:45 CDT Capo Poe MD [facility] CPT-69104 Level 3 Est. Patient 15:23:48 REJECTED ITEMS CLERK Capo Poe MD [facility] CPT-18760 Level 3 Est. Patient 15:10:03 REJECTED ITEMS CLERK Capo Poe MD [facility] CPT-54944 Level 3 Est. Patient 16:18:40 CDT Zoran Arzola MD [facility] Procedures Code Procedure Name Date Entry Date Standard Description CPT-09147 Abd single AP View 14:06:45 CDT CPT-52525 Postop F/U Visit 09:48:32 CDT CPT-54520 Abd single AP View 13:58:26 CDT CPT-54333 Hip comp min 2V 10:27:18 REJECTED ITEMS CLERK CPT-09455 Urine Dip (Floor Use Only) 13:41:01 REJECTED ITEMS CLERK CPT-89705 Postop F/U Visit 11:17:48 CDT CPT-LR Lesion Removal 11:50:22 CDT CPT-OV Office Visit 11:50:22 CDT CPT-05012 Pneumovax 23 10:55:48 CDT CPT-72058 Administration single or combination vaccine inc oral 10 :55:48 CDT CPT-Cryo Cryotherapy 11:18:11 CDT CPT-OV Office Visit 11:18:11 CDT CPT-83999 LS spine AP and Lat 09:05:22 CDT CPT-56437 Bladder Scan 15:42:00 CDT CPT-20671 Cystoscopy 15:42:00 CDT CPT-OV Office Visit 16:37:19 REJECTED ITEMS CLERK CPT-98493 Bladder Scan 15:32:10 REJECTED ITEMS CLERK CPT-43378 Cystoscopy 15:32:10 REJECTED ITEMS CLERK CPT-15755 Abd single AP View 14:05:59 REJECTED ITEMS CLERK CPT-03315 Pill cam small bowel 09:48:39 REJECTED ITEMS CLERK CPT-43770 Urine Dip (Floor Use Only) 17:17:19 REJECTED ITEMS CLERK CPT-90854 Bladder Scan 17:17:19 REJECTED ITEMS CLERK CPT-OV Office Visit 11:50:26 REJECTED ITEMS CLERK CPT-86395 Bladder Scan 10:10:42 CDT CPT-05182 Venipuncture Draw Fee 09:14:04 CDT CPT-87268 Chest 2V Frontal and Lat 10:10:49 CDT CPT-67957 LS spine comp w obliq 11:50:11 CDT CPT-61763 Venipuncture Draw Fee 08:52:57 REJECTED ITEMS CLERK CPT-79594 Cystoscopy W/rem FB 18:37:28 CDT CPT-31044 Abd single AP View 16:18:40 CDT CPT-73351 Abd compl w upright 17:30:59 CDT
--- OUTSIDE RECORDS SUMMARY | 2016-11-22 15:46 | XMS REPORT | Clinical Summary ---
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 Inactive Capo Poe [...] 1 po q6hr PRN Itching HYDROXYZINE HCL 26229204139 Active Capo Poe MD Active TRIAMCINOLONE ACETONIDE 0.1 % CREA Apply to affected areas TID for up to 2 weeks TRIAMCINOLONE ACETONIDE 32781711821 Active Capo Poe MD Active NICOTINE 14 MG/24HR TRANS PT24 Apply/Change q 24hr NICOTINE 27751111439 No Longer Active Capo Poe MD Active TRAMADOL HCL 50 MG TABS 1-2 tablets every 6 hours as needed for pain TRAMADOL HCL 59959674843 No Longer Active Capo Poe MD Active SERTRALINE HCL 100 MG ORAL TABS take 1 tab daily SERTRALINE HCL 04134780893 No Longer Active Capo Poe MD Active LISINOPRIL-HYDROCHLOROTHIAZIDE 10-12.5 MG TABS 0.5 tab by mouth daily LISINOPRIL-HYDROCHLOROTHIAZIDE 13750958403 Active Capo Poe MD Active OMEPRAZOLE 20 MG CPDR 1 tablet by mouth daily OMEPRAZOLE 64559564677 Active Capo Poe MD Active WELLBUTRIN SR 150 MG ORAL [id number] 1 po BID BUPROPION HCL 61815651324 Active Capo Poe MD Active LORTAB 7.5-325 MG ORAL TABS 1 po q 6 hr prn pain HYDROCODONE- ACETAMINOPHEN 67370978787 Active Capo Poe MD Active FLOMAX 0.4 MG CAPS Take one by mouth daily TAMSULOSIN HCL 68412409520 Active Capo Poe MD Active MIRALAX PACK 1 po qd PRN Constipation POLYETHYLENE GLYCOL 3350 41369662384 Active Capo Poe MD Active DULERA 100-5 MCG/ACT AERO 2 puffs BID MOMETASONE FURO- FORMOTEROL FUM 17408776698 Active Capo Poe MD Active ZOLOFT 100 MG TABS 1 po daily SERTRALINE HCL 17024253798 No Longer Active Zoran Arzola MD Active FERROUS SULFATE 325 (65 FE) MG TABS 1 tablet by mouth daily FERROUS SULFATE 20101513868 No Longer Active Capo Poe MD Active HYDROCODONE-ACETAMINOPHEN 7.5-300 MG TABS take one every six hours HYDROCODONE-ACETAMINOPHEN 91167576778 No Longer Active Capo Poe MD Active TRIAMCINOLONE ACETONIDE 0.1 % OINT Apply to affected areas TID for up to 2 weeks TRIAMCINOLONE ACETONIDE 47176156912 No Longer Active Joe Vargas RN Active FERROUS SULFATE 325 (65 FE) MG TABS Take one by mouth daily FERROUS SULFATE 56426344140 No Longer Active Capo Poe MD Active TRIAMCINOLONE ACETONIDE 0.1 % OINT Apply to affected areas TID for up to 2 weeks TRIAMCINOLONE ACETONIDE 26932381841 No Longer Active Capo Poe MD Active ADULT ASPIRIN LOW STRENGTH 81 MG TBDP qd ASPIRIN 60926301269 Active Zoran Arzola MD Active ALEVE 220 MG TAB prn NAPROXEN SODIUM 15066606538 Active Capo Poe MD Active MACROBID 100 MG CAP 1 cap by mouth twice daily NITROFURANTOIN MONOHYD MACRO 16231829105 No Longer Active Dona Becker Active AZITHROMYCIN 250 MG TABS 2 po qd x 1 day, then 1 po qd x 4 days AZITHROMYCIN 52377429571 No Longer Active Capo Poe MD Active FISH OIL 500 MG CAPS by mouth twice a day OMEGA-3 FATTY ACIDS 56726064474 Active Capo Poe MD Active FLAXSEED OIL 1000 MG CAPS Take two by mouth daily FLAXSEED (LINSEED) 02059756139 Active Zoran Arzola MD Active RED YEAST RICE 600 MG CAPS Take two by mouth daily RED YEAST RICE EXTRACT 53325039520 Active Zoran Arzola MD Active MULTIVITAMINS CAPS Take one by mouth daily MULTIPLE VITAMIN 31483001119 Active Zoran Arzola MD Active ICAPS MV TABS 2 po daily MULTIPLE VITAMINS-MINERALS 95480161011 Active Jam Arnold DO Active MACROBID 100 MG CAP 1 cap by mouth twice daily MACROBID 100 MG CAP 1964038 NITROFURANTOIN MONOHYD MACRO Inactive FERROUS SULFATE 325 (65 FE) MG TABS Take one by mouth daily FERROUS SULFATE 325 (65 FE) MG TABS 470457 FERROUS SULFATE Inactive HYDROCODONE-ACETAMINOPHEN 7.5-300 MG TABS take one every six hours HYDROCODONE-ACETAMINOPHEN 7.5-300 MG TABS 500738 HYDROCODONE- ACETAMINOPHEN Inactive FERROUS SULFATE 325 (65 FE) MG TABS 1 tablet by mouth daily FERROUS SULFATE 325 (65 FE) MG TABS 540260 FERROUS SULFATE Inactive ZOLOFT 100 MG TABS 1 po daily ZOLOFT 100 MG TABS 824938 SERTRALINE HCL Inactive SERTRALINE HCL 100 MG ORAL TABS take 1 tab daily SERTRALINE HCL 100 MG ORAL TABS 914920 SERTRALINE HCL Inactive TRAMADOL HCL 50 MG TABS 1-2 tablets every 6 hours as needed for pain TRAMADOL HCL 50 MG TABS 153016 TRAMADOL HCL Inactive NICOTINE 14 MG/24HR TRANS PT24 Apply/Change q 24hr NICOTINE 14 MG/24HR TRANS PT24 043446 NICOTINE Inactive AZITHROMYCIN 250 MG TABS 2 po qd x 1 day, then 1 po qd x 4 days AZITHROMYCIN 250 MG TABS 3534012 AZITHROMYCIN Inactive TRIAMCINOLONE ACETONIDE 0.1 % OINT Apply to affected areas TID for up to 2 weeks TRIAMCINOLONE ACETONIDE 0.1 % OINT 8882074 TRIAMCINOLONE ACETONIDE Inactive TRIAMCINOLONE ACETONIDE 0.1 % OINT Apply to affected areas TID for up to 2 weeks TRIAMCINOLONE ACETONIDE 0.1 % OINT 8813480 TRIAMCINOLONE ACETONIDE Inactive Advance Directives Directive Description [...] Panel - Chemistry sodium, serum 139 mmol/L 079-768 3348/07/30 potassium, serum 4.7 mmol/L 3.5-5.2 chloride, serum 101 mmol/L 98-107 carbon dioxide, venous blood 34.8 mmol/L 21.0-32.0 blood glucose 124 mg/dL 65-110 calcium, serum 8.9 mg/dL 8.5-10.1 urea nitrogen, blood 18 mg/dL 7- creatinine, serum 1.40 mg/dL 0.60-1.30 Lab Report: Prostatic Specific Ag - Chemistry prostate specific antigen 0.80 ng/mL 0.00-4.00 prostate specific antigen 0.62 ng/mL 0.00-4.00 prostate specific antigen 1.11 ng/mL [...] negative Encounters Code Encounter Date Provider Facility CPT-24591 Level 3 Est. Patient 14:59:32 ACCOUNTANT CLERK Capo Poe MD [facility] CPT-92703 Level 4 Est. Patient 10:46:15 ACCOUNTANT CLERK Capo Poe MD [facility] CPT-98788 Level 3 Est. Patient 11:00:53 CDT Capo Poe MD [facility] CPT-55107 Level 3 Est. Patient 09:39:35 CDT Capo Poe MD [facility] CPT-91948 Level 3 Est. Patient 09:27:01 CDT Capo Poe MD [facility] CPT-29717 Level 3 Est. Patient 18:37:08 CDT Zoran Arzola MD [facility] CPT-81832 Level 3 Est. Patient 15:00:28 CDT Capo Poe MD [facility] CPT-63080 Level 3 Est. Patient 08:20:19 CDT Zoran Arzola MD [facility] CPT-18673 Level 3 Est. Patient 09:22:21 CDT Capo Poe MD [facility] CPT-67216 Level 4 Est. Patient 10:21:30 ACCOUNTANT CLERK Capo Poe MD [facility] CPT-85571 Level 3 Est. Patient 17:08:51 ACCOUNTANT CLERK Zoran Arzola MD [facility] CPT-59704 Level 4 Est. Patient 09:44:42 CDT Capo Poe MD [facility] CPT-01078 Level 4 Est. Patient 10:39:29 CDT Capo Poe MD [facility] CPT-22769 Level 3 Est. Patient 17:45:23 CDT Zoran Arzola MD [facility] CPT-17157 Level 4 Est. Patient 08:50:44 CDT Capo Poe MD [facility] CPT-93097 Level 3 Est. Patient 10:39:51 ACCOUNTANT CLERK Capo Poe MD [facility] CPT-67744 Level 4 Est. Patient 09:44:24 ACCOUNTANT CLERK Capo Poe MD [facility] CPT-75368 Level 3 Est. Patient 14:48:42 ACCOUNTANT CLERK Zoran Arzola MD [facility] CPT-17403 Level 4 Est. Patient 10:24:02 CDT Capo Poe MD [facility] CPT-45156 Level 3 Est. Patient 15:42:00 CDT Maya DUKES [facility] CPT-24292 Level 4 Est. Patient 13:34:15 CDT Capo Poe MD [facility] CPT-33662 Level 3 Est. Patient 15:32:10 ACCOUNTANT CLERK Zoran Arzola MD [facility] CPT-95990 Level 3 New Patient 17:17:19 ACCOUNTANT CLERK Zoran Arzola MD [facility] CPT-81371 Level 4 Est. Patient 10:25:01 ACCOUNTANT CLERK Capo Poe MD [facility] CPT-32656 Level 3 Est. Patient 10:10:42 CDT Zoran Arzola MD [facility] CPT-81104 Level 3 Est. Patient 22:30:02 CDT Zoran Arzola MD [facility] CPT-03683 Level 4 Est. Patient 09:54:20 CDT Capo Poe MD [facility] CPT-71324 Level 3 Est. Patient 10:48:30 CDT Capo Poe MD [facility] CPT-81210 Level 3 Est. Patient 11:24:45 CDT Capo Poe MD [facility] CPT-69752 Level 3 Est. Patient 15:23:48 ACCOUNTANT CLERK Capo Poe MD [facility] CPT-09377 Level 3 Est. Patient 15:10:03 ACCOUNTANT CLERK Capo Poe MD [facility] CPT-37823 Level 3 Est. Patient 16:18:40 CDT Zoran Arzola MD [facility] Procedures Code Procedure Name Date Entry Date Standard Description CPT-71368 Venipuncture Draw Fee 14:30:06 CDT CPT-58208 Venipuncture Draw Fee 10:58:22 CDT CPT-65911 Abd single AP View 08:32:00 CDT CPT-71204 Postop F/U Visit 21:13:08 CDT CPT-02561 Abd single AP View 15:50:24 CDT CPT-98616 Cystoscopy W/rem FB 15:21:28 CDT CPT-92528 Abd single AP View 14:06:45 CDT CPT-10230 Postop F/U Visit 09:48:32 CDT CPT-38685 Abd single AP View 13:58:26 CDT CPT-86725 Hip comp min 2V 10:27:18 ACCOUNTANT CLERK CPT-59004 Urine Dip (Floor Use Only) 13:41:01 ACCOUNTANT CLERK CPT-91771 Postop F/U Visit 11:17:48 CDT CPT-LR Lesion Removal 11:50:22 CDT CPT-OV Office Visit 11:50:22 CDT CPT-09550 Pneumovax 23 10:55:48 CDT CPT-40635 Administration single or combination vaccine inc oral 10 :55:48 CDT CPT-Cryo Cryotherapy 11:18:11 CDT CPT-OV Office Visit 11:18:11 CDT CPT-19994 LS spine AP and Lat 09:05:22 CDT CPT-24278 Bladder Scan 15:42:00 CDT CPT-23169 Cystoscopy 15:42:00 CDT CPT-OV Office Visit 16:37:19 ACCOUNTANT CLERK CPT-45360 Bladder Scan 15:32:10 ACCOUNTANT CLERK CPT-62545 Cystoscopy 15:32:10 ACCOUNTANT CLERK CPT-50217 Abd single AP View 14:05:59 ACCOUNTANT CLERK CPT-34103 Pill cam small bowel 09:48:39 ACCOUNTANT CLERK CPT-98743 Urine Dip (Floor Use Only) 17:17:19 ACCOUNTANT CLERK CPT-39326 Bladder Scan 17:17:19 ACCOUNTANT CLERK CPT-OV Office Visit 11:50:26 ACCOUNTANT CLERK CPT-28690 Bladder Scan 10:10:42 CDT CPT-27441 Venipuncture Draw Fee 09:14:04 CDT CPT-42069 Chest 2V Frontal and Lat 10:10:49 CDT CPT-53226 LS spine comp w obliq 11:50:11 CDT CPT-97912 Venipuncture Draw Fee 08:52:57 ACCOUNTANT CLERK CPT-53098 Cystoscopy W/rem FB 18:37:28 CDT CPT-04860 Abd single AP View 16:18:40 CDT CPT-63034 Abd compl w upright 17:30:59 CDT
--- OUTSIDE RECORDS SUMMARY | 2016-11-22 15:47 | XMS REPORT | Clinical Summary ---
Author Author Admin, MARGE Organization [facility] Address Unknown Phone Unavailable Allergies, Adverse [...] 2 puffs BID MOMETASONE FURO- FORMOTEROL FUM 09084746871 Active Capo Poe MD Active SERTRALINE HCL 100 MG ORAL TABS take 1 tab daily SERTRALINE HCL 25487396730 Active Capo Poe MD Active ZOLOFT 100 MG TABS 1 po daily SERTRALINE HCL 54473747848 No Longer Active Zoran Arzola MD Active FERROUS SULFATE 325 (65 FE) MG TABS 1 tablet by mouth daily FERROUS SULFATE 70822641395 No Longer Active Capo Poe MD Active TRAMADOL HCL 50 MG TABS 1-2 tablets every 6 hours as needed for pain TRAMADOL HCL 67749961285 Active Capo Poe MD Active HYDROCODONE-ACETAMINOPHEN 7.5-300 MG TABS take one every six hours HYDROCODONE-ACETAMINOPHEN 96086098253 No Longer Active Capo Poe MD Active TRIAMCINOLONE ACETONIDE 0.1 % OINT Apply to affected areas TID for up to 2 weeks TRIAMCINOLONE ACETONIDE 75442464745 No Longer Active Joe Vargas RN Active FERROUS SULFATE 325 (65 FE) MG TABS Take one by mouth daily FERROUS SULFATE 38381999154 No Longer Active Capo Poe MD Active TRIAMCINOLONE ACETONIDE 0.1 % OINT Apply to affected areas TID for up to 2 weeks TRIAMCINOLONE ACETONIDE 03300986142 No Longer Active Caop Poe MD Active ADULT ASPIRIN LOW STRENGTH 81 MG TBDP qd ASPIRIN 77445055194 Active Zoran Arzola MD Active ALEVE 220 MG TAB prn NAPROXEN SODIUM 74173408254 Active Capo Poe MD Active LISINOPRIL-HYDROCHLOROTHIAZIDE 10-12.5 MG TABS 1 tab by mouth daily LISINOPRIL-HYDROCHLOROTHIAZIDE 76550963993 Active Capo Poe MD Active MACROBID 100 MG CAP 1 cap by mouth twice daily NITROFURANTOIN MONOHYD MACRO 88445715994 No Longer Active Dona Becker Active AZITHROMYCIN 250 MG TABS 2 po qd x 1 day, then 1 po qd x 4 days AZITHROMYCIN 61355700507 No Longer Active Capo Poe MD Active FISH OIL 500 MG CAPS by mouth twice a day OMEGA-3 FATTY ACIDS 47050656217 Active Capo Poe MD Active FLAXSEED OIL 1000 MG CAPS Take two by mouth daily FLAXSEED (LINSEED) 28816300102 Active Zoran Arzola MD Active RED YEAST RICE 600 MG CAPS Take two by mouth daily RED YEAST RICE EXTRACT 59931700603 Active Zoran Arzola MD Active MULTIVITAMINS CAPS Take one by mouth daily MULTIPLE VITAMIN 37644799351 Active Zoran Arzola MD Active ICAPS MV TABS 2 po daily MULTIPLE VITAMINS-MINERALS 59445677770 Active Jam Arnold DO Active MACROBID 100 MG CAP 1 cap by mouth twice daily MACROBID 100 MG CAP 857599 NITROFURANTOIN MONOHYD MACRO Inactive FERROUS SULFATE 325 (65 FE) MG TABS Take one by mouth daily FERROUS SULFATE 325 (65 FE) MG TABS 489101 FERROUS SULFATE Inactive HYDROCODONE-ACETAMINOPHEN 7.5-300 MG TABS take one every six hours HYDROCODONE-ACETAMINOPHEN 7.5-300 MG TABS 565228 HYDROCODONE- ACETAMINOPHEN Inactive FERROUS SULFATE 325 (65 FE) MG TABS 1 tablet by mouth daily FERROUS SULFATE 325 (65 FE) MG TABS 386343 FERROUS SULFATE Inactive ZOLOFT 100 MG TABS 1 po daily ZOLOFT 100 MG TABS 240635 SERTRALINE HCL Inactive AZITHROMYCIN 250 MG TABS 2 po qd x 1 day, then 1 po qd x 4 days AZITHROMYCIN 250 MG TABS 7519063 AZITHROMYCIN Inactive TRIAMCINOLONE ACETONIDE 0.1 % OINT Apply to affected areas TID for up to 2 weeks TRIAMCINOLONE ACETONIDE 0.1 % OINT 6764434 TRIAMCINOLONE ACETONIDE Inactive TRIAMCINOLONE ACETONIDE 0.1 % OINT Apply to affected areas TID for up to 2 weeks TRIAMCINOLONE ACETONIDE 0.1 % OINT 1558021 TRIAMCINOLONE ACETONIDE Inactive Advance Directives Directive Description [...] Description Chart Maintenance: Outside labs entered on [employer] - Chemistry sodium, serum 137 mmol/L potassium, [...] Panel - Chemistry sodium, serum 140 mmol/L 254-380 8237/05/21 potassium, serum 4.0 mmol/L 3.5-5.2 chloride, serum [...] CBC - Chemistry cholesterol, serum 207 mg/dL 063-630 1498/02/11 triglyceride, serum, fasting 74 mg/dL 30-200 HDL cholesterol, serum 62 mg/dL 32-96 LDL cholesterol, serum 130 mg/dL 0-130 sodium, serum 144 mmol/L 228-725 8254/02/11 potassium, serum 5.0 mmol/L 3.5-5.2 chloride, serum [...] negative Encounters Code Encounter Date Provider Facility CPT-47394 Level 3 Est. Patient 08:20:19 CDT Zoran Arzola MD [facility] CPT-05919 Level 3 Est. Patient 09:22:21 CDT Capo Poe MD [facility] CPT-53452 Level 4 Est. Patient 10:21:30 CONSTRUCTION LABORER Capo Poe MD [facility] CPT-75409 Level 3 Est. Patient 17:08:51 CONSTRUCTION LABORER Zoran Arzola MD [facility] CPT-89166 Level 4 Est. Patient 09:44:42 CDT Capo Poe MD [facility] CPT-56803 Level 4 Est. Patient 10:39:29 CDT Capo Poe MD [facility] CPT-09109 Level 3 Est. Patient 17:45:23 CDT Zoran Arzola MD [facility] CPT-06081 Level 4 Est. Patient 08:50:44 CDT Capo Poe MD [facility] CPT-98229 Level 3 Est. Patient 10:39:51 CONSTRUCTION LABORER Capo Poe MD [facility] CPT-40062 Level 4 Est. Patient 09:44:24 CONSTRUCTION LABORER Capo Poe MD [facility] CPT-64935 Level 3 Est. Patient 14:48:42 CONSTRUCTION LABORER Zoran Arzola MD [facility] CPT-45646 Level 4 Est. Patient 10:24:02 CDT Capo Poe MD [facility] CPT-07526 Level 3 Est. Patient 15:42:00 CDT Maya Brownlee ERNST [facility] CPT-23589 Level 4 Est. Patient 13:34:15 CDT Capo Poe MD [facility] CPT-65479 Level 3 Est. Patient 15:32:10 CONSTRUCTION LABORER Zoran Arzola MD [facility] CPT-66419 Level 3 New Patient 17:17:19 CONSTRUCTION LABORER Zoran Arzola MD [facility] CPT-84794 Level 4 Est. Patient 10:25:01 CONSTRUCTION LABORER Capo Poe MD [facility] CPT-28819 Level 3 Est. Patient 10:10:42 CDT Zoran Arzola MD [facility] CPT-39350 Level 3 Est. Patient 22:30:02 CDT Zoran Arzola MD [facility] CPT-63233 Level 4 Est. Patient 09:54:20 CDT Capo Poe MD [facility] CPT-60480 Level 3 Est. Patient 10:48:30 CDT Capo Poe MD [facility] CPT-32142 Level 3 Est. Patient 11:24:45 CDT Capo Poe MD [facility] CPT-36915 Level 3 Est. Patient 15:23:48 CONSTRUCTION LABORER Capo Poe MD [facility] CPT-32783 Level 3 Est. Patient 15:10:03 CONSTRUCTION LABORER Capo Poe MD [facility] CPT-48271 Level 3 Est. Patient 16:18:40 CDT Zoran Arzola MD [facility] Procedures Code Procedure Name Date Entry Date Standard Description CPT-67098 Cystoscopy W/rem FB 15:21:28 CDT CPT-33802 Abd single AP View 14:06:45 CDT CPT-67354 Postop F/U Visit 09:48:32 CDT CPT-16239 Abd single AP View 13:58:26 CDT CPT-96273 Hip comp min 2V 10:27:18 CONSTRUCTION LABORER CPT-55156 Urine Dip (Floor Use Only) 13:41:01 CONSTRUCTION LABORER CPT-02067 Postop F/U Visit 11:17:48 CDT CPT-LR Lesion Removal 11:50:22 CDT CPT-OV Office Visit 11:50:22 CDT CPT-46820 Pneumovax 23 10:55:48 CDT CPT-92226 Administration single or combination vaccine inc oral 10 :55:48 CDT CPT-Cryo Cryotherapy 11:18:11 CDT CPT-OV Office Visit 11:18:11 CDT CPT-63775 LS spine AP and Lat 09:05:22 CDT CPT-24638 Bladder Scan 15:42:00 CDT CPT-28693 Cystoscopy 15:42:00 CDT CPT-OV Office Visit 16:37:19 CONSTRUCTION LABORER CPT-05853 Bladder Scan 15:32:10 CONSTRUCTION LABORER CPT-46038 Cystoscopy 15:32:10 CONSTRUCTION LABORER CPT-88344 Abd single AP View 14:05:59 CONSTRUCTION LABORER CPT-02436 Pill cam small bowel 09:48:39 CONSTRUCTION LABORER CPT-17309 Urine Dip (Floor Use Only) 17:17:19 CONSTRUCTION LABORER CPT-54229 Bladder Scan 17:17:19 CONSTRUCTION LABORER CPT-OV Office Visit 11:50:26 CONSTRUCTION LABORER CPT-06792 Bladder Scan 10:10:42 CDT CPT-92689 Venipuncture Draw Fee 09:14:04 CDT CPT-20236 Chest 2V Frontal and Lat 10:10:49 CDT CPT-38604 LS spine comp w obliq 11:50:11 CDT CPT-09331 Venipuncture Draw Fee 08:52:57 CONSTRUCTION LABORER CPT-02750 Cystoscopy W/rem FB 18:37:28 CDT CPT-44225 Abd single AP View 16:18:40 CDT CPT-33889 Abd compl w upright 17:30:59 CDT
--- OUTSIDE RECORDS SUMMARY | 2016-11-22 15:48 | XMS REPORT | Clinical Summary ---
Author Author Admin, MARGE Organization [facility] Address Unknown Phone Unavailable Allergies, Adverse Reactions, [...] unspecified hyperlipidemia CALCULUS OF KIDNEY 592.0 Resolved Cpao Poe MD Calculus of kidney CALCULUS OF [...] of prostate RENAL CALCULUS 592.9 Resolved Capo oPe MD Urinary calculus, unspecified FLANK PAIN, RIGHT [...] site not specified Hematuria 599.70 Active Zoran Azrola MD Hematuria, unspecified Sciatica, right 724.3 Active [...] MG/24HR TRANS PT24 Apply/Change q 24hr NICOTINE 10481908846 Active Capo Poe MD Active WELLBUTRIN SR 150 MG ORAL [id number] 1 po qd x 3 days, then 1 po BID BUPROPION HCL 85380259430 Active Capo Poe MD Active LORTAB 7.5-325 MG ORAL TABS 1 po q 6 hr prn pain HYDROCODONE- ACETAMINOPHEN 23190218847 Active Capo Poe MD Active FLOMAX 0.4 MG CAPS Take one by mouth daily TAMSULOSIN HCL 89152691154 Active Capo Poe MD Active MIRALAX PACK 1 po qd PRN Constipation POLYETHYLENE GLYCOL 3350 34258731558 Active Capo Poe MD Active DULERA 100-5 MCG/ACT AERO 2 puffs BID MOMETASONE FURO- FORMOTEROL FUM 91792706806 Active Capo Poe MD Active SERTRALINE HCL 100 MG ORAL TABS take 1 tab daily SERTRALINE HCL 35360614072 Active Capo Poe MD Active ZOLOFT 100 MG TABS 1 po daily SERTRALINE HCL 51971156200 No Longer Active Zoran Arzola MD Active FERROUS SULFATE 325 (65 FE) MG TABS 1 tablet by mouth daily FERROUS SULFATE 75486263969 No Longer Active Capo Poe MD Active TRAMADOL HCL 50 MG TABS 1-2 tablets every 6 hours as needed for pain TRAMADOL HCL 05600532884 Active Capo Poe MD Active HYDROCODONE-ACETAMINOPHEN 7.5-300 MG TABS take one every six hours HYDROCODONE-ACETAMINOPHEN 11931542586 No Longer Active Capo Poe MD Active TRIAMCINOLONE ACETONIDE 0.1 % OINT Apply to affected areas TID for up to 2 weeks TRIAMCINOLONE ACETONIDE 71042317946 No Longer Active Joe Vargas RN Active FERROUS SULFATE 325 (65 FE) MG TABS Take one by mouth daily FERROUS SULFATE 68478635497 No Longer Active Capo Poe MD Active TRIAMCINOLONE ACETONIDE 0.1 % OINT Apply to affected areas TID for up to 2 weeks TRIAMCINOLONE ACETONIDE 20635693244 No Longer Active Capo Poe MD Active ADULT ASPIRIN LOW STRENGTH 81 MG TBDP qd ASPIRIN 27951166374 Active Zoran Arzola MD Active ALEVE 220 MG TAB prn NAPROXEN SODIUM 65718776346 Active Capo Poe MD Active LISINOPRIL-HYDROCHLOROTHIAZIDE 10-12.5 MG TABS 1 tab by mouth daily LISINOPRIL-HYDROCHLOROTHIAZIDE 71106316200 Active Capo Poe MD Active MACROBID 100 MG CAP 1 cap by mouth twice daily NITROFURANTOIN MONOHYD MACRO 78278042496 No Longer Active Dona Becker Active AZITHROMYCIN 250 MG TABS 2 po qd x 1 day, then 1 po qd x 4 days AZITHROMYCIN 90921357056 No Longer Active Capo Poe MD Active FISH OIL 500 MG CAPS by mouth twice a day OMEGA-3 FATTY ACIDS 97438843856 Active Capo Poe MD Active FLAXSEED OIL 1000 MG CAPS Take two by mouth daily FLAXSEED (LINSEED) 06252405427 Elza Arzola MD Active RED YEAST RICE 600 MG CAPS Take two by mouth daily RED YEAST RICE EXTRACT 76227999410 Elza Arzola MD Active MULTIVITAMINS CAPS Take one by mouth daily MULTIPLE VITAMIN 54203190581 Active Zoran Arzola MD Active ICAPS MV TABS 2 po daily MULTIPLE VITAMINS-MINERALS 21606461598 Active Jam Arnold DO Active MACROBID 100 MG CAP 1 cap by mouth twice daily MACROBID 100 MG CAP 9459546 NITROFURANTOIN MONOHYD MACRO Inactive FERROUS SULFATE 325 (65 FE) MG TABS Take one by mouth daily FERROUS SULFATE 325 (65 FE) MG TABS 751435 FERROUS SULFATE Inactive HYDROCODONE-ACETAMINOPHEN 7.5-300 MG TABS take one every six hours HYDROCODONE-ACETAMINOPHEN 7.5-300 MG TABS 265078 HYDROCODONE- ACETAMINOPHEN Inactive FERROUS SULFATE 325 (65 FE) MG TABS 1 tablet by mouth daily FERROUS SULFATE 325 (65 FE) MG TABS 259787 FERROUS SULFATE Inactive ZOLOFT 100 MG TABS 1 po daily ZOLOFT 100 MG TABS 493664 SERTRALINE HCL Inactive AZITHROMYCIN 250 MG TABS 2 po qd x 1 day, then 1 po qd x 4 days AZITHROMYCIN 250 MG TABS 6422973 AZITHROMYCIN Inactive TRIAMCINOLONE ACETONIDE 0.1 % OINT Apply to affected areas TID for up to 2 weeks TRIAMCINOLONE ACETONIDE 0.1 % OINT 0401809 TRIAMCINOLONE ACETONIDE Inactive TRIAMCINOLONE ACETONIDE 0.1 % OINT Apply to affected areas TID for up to 2 weeks TRIAMCINOLONE ACETONIDE 0.1 % OINT 9485339 TRIAMCINOLONE ACETONIDE Inactive Advance Directives Directive Description [...] Panel - Chemistry sodium, serum 139 mmol/L 405-326 5736/07/30 potassium, serum 4.7 mmol/L 3.5-5.2 chloride, serum [...] CBC - Chemistry cholesterol, serum 207 mg/dL 019-862 1692/02/11 triglyceride, serum, fasting 74 mg/dL 30-200 HDL cholesterol, serum 62 mg/dL 32-96 LDL cholesterol, serum 130 mg/dL 0-130 sodium, serum 144 mmol/L 935-212 7264/02/11 potassium, serum 5.0 mmol/L 3.5-5.2 chloride, serum [...] negative Encounters Code Encounter Date Provider Facility CPT-86614 Level 3 Est. Patient 09:27:01 CDT Capo Poe MD [facility] CPT-30341 Level 3 Est. Patient 18:37:08 CDT Zoran Arzola MD [facility] CPT-62139 Level 3 Est. Patient 15:00:28 CDT Capo Poe MD [facility] CPT-53014 Level 3 Est. Patient 08:20:19 CDT Zoran Arzola MD [facility] CPT-42237 Level 3 Est. Patient 09:22:21 CDT Capo Poe MD [facility] CPT-85217 Level 4 Est. Patient 10:21:30 COOPERER Capo Poe MD [facility] CPT-80528 Level 3 Est. Patient 17:08:51 COOPERER Zoran Arzola MD [facility] CPT-38692 Level 4 Est. Patient 09:44:42 CDT Capo Poe MD [facility] CPT-19161 Level 4 Est. Patient 10:39:29 CDT Capo Poe MD [facility] CPT-35843 Level 3 Est. Patient 17:45:23 CDT Zoran Arzola MD [facility] CPT-69782 Level 4 Est. Patient 08:50:44 CDT Capo Poe MD [facility] CPT-44665 Level 3 Est. Patient 10:39:51 COOPERER Capo Poe MD [facility] CPT-28587 Level 4 Est. Patient 09:44:24 COOPERER Capo Poe MD [facility] CPT-63769 Level 3 Est. Patient 14:48:42 COOPERER Zoran Arzola MD [facility] CPT-79228 Level 4 Est. Patient 10:24:02 CDT Capo Poe MD [facility] CPT-50483 Level 3 Est. Patient 15:42:00 CDT Maya WRIGHTP [facility] CPT-00587 Level 4 Est. Patient 13:34:15 CDT Capo Poe MD [facility] CPT-88187 Level 3 Est. Patient 15:32:10 COOPERER Zoran Arzola MD [facility] CPT-15960 Level 3 New Patient 17:17:19 COOPERER Zoran Arzola MD [facility] CPT-17414 Level 4 Est. Patient 10:25:01 COOPERER Capo Poe MD [facility] CPT-85598 Level 3 Est. Patient 10:10:42 CDT Zoran Arzola MD [facility] CPT-01464 Level 3 Est. Patient 22:30:02 CDT Zoran Arzola MD [facility] CPT-95256 Level 4 Est. Patient 09:54:20 CDT Capo Poe MD [facility] CPT-26906 Level 3 Est. Patient 10:48:30 CDT Capo Poe MD [facility] CPT-77784 Level 3 Est. Patient 11:24:45 CDT Capo Poe MD [facility] CPT-18376 Level 3 Est. Patient 15:23:48 COOPERER Capo Poe MD [facility] CPT-90900 Level 3 Est. Patient 15:10:03 COOPERER Capo Poe MD [facility] CPT-04781 Level 3 Est. Patient 16:18:40 CDT Zoran Arzola MD [facility] Procedures Code Procedure Name Date Entry Date Standard Description CPT-69661 Abd single AP View 08:32:00 CDT CPT-10206 Postop F/U Visit 21:13:08 CDT CPT-24484 Abd single AP View 15:50:24 CDT CPT-39401 Cystoscopy W/rem FB 15:21:28 CDT CPT-29043 Abd single AP View 14:06:45 CDT CPT-24924 Postop F/U Visit 09:48:32 CDT CPT-53559 Abd single AP View 13:58:26 CDT CPT-93698 Hip comp min 2V 10:27:18 COOPERER CPT-97258 Urine Dip (Floor Use Only) 13:41:01 COOPERER CPT-39258 Postop F/U Visit 11:17:48 CDT CPT-LR Lesion Removal 11:50:22 CDT CPT-OV Office Visit 11:50:22 CDT CPT-59014 Pneumovax 23 10:55:48 CDT CPT-89225 Administration single or combination vaccine inc oral 10 :55:48 CDT CPT-Cryo Cryotherapy 11:18:11 CDT CPT-OV Office Visit 11:18:11 CDT CPT-46040 LS spine AP and Lat 09:05:22 CDT CPT-96485 Bladder Scan 15:42:00 CDT CPT-04878 Cystoscopy 15:42:00 CDT CPT-OV Office Visit 16:37:19 COOPERER CPT-23889 Bladder Scan 15:32:10 COOPERER CPT-35008 Cystoscopy 15:32:10 COOPERER CPT-65373 Abd single AP View 14:05:59 COOPERER CPT-41037 Pill cam small bowel 09:48:39 COOPERER CPT-71405 Urine Dip (Floor Use Only) 17:17:19 COOPERER CPT-33768 Bladder Scan 17:17:19 COOPERER CPT-OV Office Visit 11:50:26 COOPERER CPT-29047 Bladder Scan 10:10:42 CDT CPT-54021 Venipuncture Draw Fee 09:14:04 CDT CPT-50766 Chest 2V Frontal and Lat 10:10:49 CDT CPT-75706 LS spine comp w obliq 11:50:11 CDT CPT-89541 Venipuncture Draw Fee 08:52:57 COOPERER CPT-81339 Cystoscopy W/rem FB 18:37:28 CDT CPT-13004 Abd single AP View 16:18:40 CDT CPT-35311 Abd compl w upright 17:30:59 CDT
--- OUTSIDE RECORDS SUMMARY | 2016-11-22 15:49 | XMS REPORT | Clinical Summary ---
Author Author Admin, QIE Organization [facility] Address Unknown Phone Unavailable Allergies, Adverse Reactions, [...] collapse Iron deficiency 280.9 Active Jasmin Dixon [facility] Iron deficiency anemia, unspecified NAUSEA AND [...] 1 tab po twice daily FERROUS SULFATE 53882117808 Active Jasmin TEIXEIRA Active D ORAL TABS 2000 iu weekly D ORAL TABS Active Capo Poe MD Active CITALOPRAM HYDROBROMIDE 20 MG TABS 1 tablet by mouth daily CITALOPRAM HYDROBROMIDE 05197679857 Active Capo Poe MD Active CLARITIN 5 MG ORAL CHEW 1 tab po q day LORATADINE 60615030943 Active Felisa TEIXEIRA Active VIIBRYD STARTER PACK 10 & 20 MG ORAL KIT 1 po qd as directed 2015 VILAZODONE HCL 38687921578 No Longer Active Felisa TEIXEIRA Active HYDROXYZINE HCL 25 MG TAB 1 po qHS PRN Insomnia HYDROXYZINE HCL 43289631469 Active Capo Poe MD Active LISINOPRIL 10 MG TABS 1 tablet by mouth daily LISINOPRIL 57454608440 Active Capo Poe MD Active LORTAB 7.5-325 MG ORAL TABS 1 po q 6 hr prn pain HYDROCODONE- ACETAMINOPHEN 89729437404 No Longer Active Capo Poe MD Active FLOMAX 0.4 MG CAPS Take one by mouth daily TAMSULOSIN HCL 33791406430 No Longer Active Capo Poe MD Active TRIAMCINOLONE ACETONIDE 0.1 % CREA Apply to affected areas TID for up to 2 weeks TRIAMCINOLONE ACETONIDE 59804162221 Active Capo Poe MD Active NICOTINE 14 MG/24HR TRANS PT24 Apply/Change q 24hr NICOTINE 95974003023 No Longer Active Capo Poe MD Active TRAMADOL HCL 50 MG TABS 1-2 tablets every 6 hours as needed for pain TRAMADOL HCL 13426016370 No Longer Active Capo Poe MD Active SERTRALINE HCL 100 MG ORAL TABS take 1 tab daily SERTRALINE HCL 32942191295 No Longer Active Capo Poe MD Active LISINOPRIL-HYDROCHLOROTHIAZIDE 10-12.5 MG TABS 0.5 tab by mouth daily LISINOPRIL-HYDROCHLOROTHIAZIDE 44422114796 No Longer Active Capo Poe MD Active OMEPRAZOLE 20 MG CPDR 1 tablet by mouth daily OMEPRAZOLE 40116455494 Active Capo Poe MD Active WELLBUTRIN SR 150 MG ORAL [id number] 1 po BID BUPROPION HCL 78437422190 No Longer Active Capo Poe MD Active MIRALAX PACK 1 po qd PRN Constipation POLYETHYLENE GLYCOL 3350 80961036275 Active Capo Poe MD Active DULERA 100-5 MCG/ACT AERO 2 puffs BID MOMETASONE FURO- FORMOTEROL FUM 28441976322 Active Capo Poe MD Active ZOLOFT 100 MG TABS 1 po daily SERTRALINE HCL 38394972012 No Longer Active Zoran Arzola MD Active FERROUS SULFATE 325 (65 FE) MG TABS 1 tablet by mouth daily FERROUS SULFATE 59491109063 No Longer Active Capo Poe MD Active HYDROCODONE-ACETAMINOPHEN 7.5-300 MG TABS take one every six hours HYDROCODONE-ACETAMINOPHEN 74361859619 No Longer Active Capo Poe MD Active TRIAMCINOLONE ACETONIDE 0.1 % OINT Apply to affected areas TID for up to 2 weeks TRIAMCINOLONE ACETONIDE 80917902109 No Longer Active Joe Vargas RN Active FERROUS SULFATE 325 (65 FE) MG TABS Take one by mouth daily FERROUS SULFATE 84606050447 No Longer Active Capo Poe MD Active TRIAMCINOLONE ACETONIDE 0.1 % OINT Apply to affected areas TID for up to 2 weeks TRIAMCINOLONE ACETONIDE 01556595497 No Longer Active Capo Poe MD Active ADULT ASPIRIN LOW STRENGTH 81 MG TBDP qd ASPIRIN 65817360518 Active Zoran Arzola MD Active ALEVE 220 MG TAB prn NAPROXEN SODIUM 37383350260 Active Capo Poe MD Active MACROBID 100 MG CAP 1 cap by mouth twice daily NITROFURANTOIN MONOHYD MACRO 59595562545 No Longer Active Dona Becker Active AZITHROMYCIN 250 MG TABS 2 po qd x 1 day, then 1 po qd x 4 days AZITHROMYCIN 85533568356 No Longer Active Capo Poe MD Active FISH OIL 500 MG CAPS by mouth twice a day OMEGA-3 FATTY ACIDS 10209054585 Active Capo Poe MD Active FLAXSEED OIL 1000 MG CAPS Take two by mouth daily FLAXSEED (LINSEED) 81381445665 Active Zoran Arzola MD Active RED YEAST RICE 600 MG CAPS Take two by mouth daily RED YEAST RICE EXTRACT 59974248567 Active Zoran Arzola MD Active MULTIVITAMINS CAPS Take one by mouth daily MULTIPLE VITAMIN 12823134125 Active Zoran Arzola MD Active ICAPS MV TABS 2 po daily MULTIPLE VITAMINS-MINERALS 06318034213 Active Jam Arnold DO Active MACROBID 100 MG CAP 1 cap by mouth twice daily MACROBID 100 MG CAP 5944933 NITROFURANTOIN MONOHYD MACRO Inactive FERROUS SULFATE 325 (65 FE) MG TABS Take one by mouth daily FERROUS SULFATE 325 (65 FE) MG TABS 720725 FERROUS SULFATE Inactive HYDROCODONE-ACETAMINOPHEN 7.5-300 MG TABS take one every six hours HYDROCODONE-ACETAMINOPHEN 7.5-300 MG TABS 846126 HYDROCODONE- ACETAMINOPHEN Inactive FERROUS SULFATE 325 (65 FE) MG TABS 1 tablet by mouth daily FERROUS SULFATE 325 (65 FE) MG TABS 629929 FERROUS SULFATE Inactive ZOLOFT 100 MG TABS 1 po daily ZOLOFT 100 MG TABS 494567 SERTRALINE HCL Inactive SERTRALINE HCL 100 MG ORAL TABS take 1 tab daily SERTRALINE HCL 100 MG ORAL TABS 701919 SERTRALINE HCL Inactive TRAMADOL HCL 50 MG TABS 1-2 tablets every 6 hours as needed for pain TRAMADOL HCL 50 MG TABS 842970 TRAMADOL HCL Inactive NICOTINE 14 MG/24HR TRANS PT24 Apply/Change q 24hr NICOTINE 14 MG/24HR TRANS PT24 701116 NICOTINE Inactive FLOMAX 0.4 MG CAPS Take one by mouth daily FLOMAX 0.4 MG CAPS 728115 TAMSULOSIN HCL Inactive LORTAB 7.5-325 MG ORAL TABS 1 po q 6 hr prn pain LORTAB 7.5- 325 MG ORAL TABS 833093 HYDROCODONE-ACETAMINOPHEN Inactive VIIBRYD STARTER PACK 10 & 20 MG ORAL KIT 1 po qd as directed 2015 VIIBRYD STARTER PACK 10 & 20 MG ORAL KIT VILAZODONE HCL Inactive AZITHROMYCIN 250 MG TABS 2 po qd x 1 day, then 1 po qd x 4 days AZITHROMYCIN 250 MG TABS 0700247 AZITHROMYCIN Inactive TRIAMCINOLONE ACETONIDE 0.1 % OINT Apply to affected areas TID for up to 2 weeks TRIAMCINOLONE ACETONIDE 0.1 % OINT 2718494 TRIAMCINOLONE ACETONIDE Inactive TRIAMCINOLONE ACETONIDE 0.1 % OINT Apply to affected areas TID for up to 2 weeks TRIAMCINOLONE ACETONIDE 0.1 % OINT 4956575 TRIAMCINOLONE ACETONIDE Inactive Advance Directives Directive Description [...] ... - Chemistry sodium, serum 141 mmol/L 483-596 1539/01/27 carbon dioxide, venous blood 29.7 mmol/L 21.0-32.0 [...] ... - Chemistry sodium, serum 138 mmol/L 177-031 3200/03/18 carbon dioxide, venous blood 25.5 mmol/L 21.0-32.0 potassium, serum 4.6 mmol/L 3.5-5.2 chloride, serum 101 mmol/L 98-107 blood glucose 129 mg/dL 65-110 urea nitrogen, blood 20 mg/dL 7-18 creatinine, serum 1.87 mg/dL 0.55-1.30 alanine aminotransferase (SGPT), serum 26 U/L 12-78 aspartate aminotransferase (SGOT), serum 20 U/L 15-37 calcium, serum 8.8 mg/dL 8.5-10.1 bilirubin, serum, total 0.40 mg/dL 0.00-1.00 cholesterol, serum 251 mg/dL 199-940 4799/03/18 triglyceride, serum, fasting 135 mg/dL 30-200 HDL [...] 0-19 Encounters Code Encounter Date Provider Facility CPT-33195 Level 4 Est. Patient 09:26:11 BUSINESS PROCESS CONSULTANT Capo Poe MD [facility] CPT-52139 Level 4 Est. Patient 08:53:08 CDT Capo Poe MD [facility] CPT-42785 Level 4 Est. Patient 10:22:57 CDT Capo Poe MD [facility] CPT-34504 Level 4 Est. Patient 13:44:30 CDT Capo Poe MD [facility] CPT-99693 Level 3 Est. Patient 14:59:32 BUSINESS PROCESS CONSULTANT Capo Poe MD [facility] CPT-20243 Level 4 Est. Patient 10:46:15 BUSINESS PROCESS CONSULTANT Capo Poe MD [facility] CPT-19316 Level 3 Est. Patient 11:00:53 CDT Capo Poe MD [facility] CPT-28825 Level 3 Est. Patient 09:39:35 CDT Capo Poe MD [facility] CPT-52046 Level 3 Est. Patient 09:27:01 CDT Capo Poe MD [facility] CPT-62196 Level 3 Est. Patient 18:37:08 CDT Zoran Arzola MD [facility] CPT-97543 Level 3 Est. Patient 15:00:28 CDT Capo Poe MD [facility] CPT-80678 Level 3 Est. Patient 08:20:19 CDT Zoran Arzola MD [facility] CPT-82196 Level 3 Est. Patient 09:22:21 CDT Capo Poe MD [facility] CPT-87226 Level 4 Est. Patient 10:21:30 BUSINESS PROCESS CONSULTANT Capo Poe MD [facility] CPT-90209 Level 3 Est. Patient 17:08:51 BUSINESS PROCESS CONSULTANT Zoran Arzola MD [facility] CPT-26424 Level 4 Est. Patient 09:44:42 CDT Capo Poe MD [facility] CPT-95228 Level 4 Est. Patient 10:39:29 CDT Capo Poe MD [facility] CPT-12622 Level 3 Est. Patient 17:45:23 CDT Zoran Arzola MD [facility] CPT-43173 Level 4 Est. Patient 08:50:44 CDT Capo Poe MD [facility] CPT-59870 Level 3 Est. Patient 10:39:51 BUSINESS PROCESS CONSULTANT Capo Poe MD [facility] CPT-88318 Level 4 Est. Patient 09:44:24 BUSINESS PROCESS CONSULTANT Capo Poe MD [facility] CPT-48580 Level 3 Est. Patient 14:48:42 BUSINESS PROCESS CONSULTANT Zoran Arzola MD [facility] CPT-81720 Level 4 Est. Patient 10:24:02 CDT Capo Poe MD [facility] CPT-32108 Level 3 Est. Patient 15:42:00 CDT Maya DUKES [facility] CPT-23875 Level 4 Est. Patient 13:34:15 CDT Capo Poe MD [facility] CPT-22240 Level 3 Est. Patient 15:32:10 BUSINESS PROCESS CONSULTANT Zoran Arzola MD [facility] CPT-60764 Level 3 New Patient 17:17:19 BUSINESS PROCESS CONSULTANT Zoran Arzola MD [facility] CPT-01758 Level 4 Est. Patient 10:25:01 BUSINESS PROCESS CONSULTANT Capo Poe MD [facility] CPT-38510 Level 3 Est. Patient 10:10:42 CDT Zoran Arzola MD [facility] CPT-48762 Level 3 Est. Patient 22:30:02 CDT Zoran Arzola MD [facility] CPT-22243 Level 4 Est. Patient 09:54:20 CDT Capo Poe MD [facility] CPT-61410 Level 3 Est. Patient 10:48:30 CDT Capo Poe MD [facility] CPT-16637 Level 3 Est. Patient 11:24:45 CDT Capo Poe MD [facility] CPT-37775 Level 3 Est. Patient 15:23:48 BUSINESS PROCESS CONSULTANT Capo Poe MD [facility] CPT-00951 Level 3 Est. Patient 15:10:03 BUSINESS PROCESS CONSULTANT Capo Poe MD [facility] CPT-82268 Level 3 Est. Patient 16:18:40 CDT Zoran Arzola MD [facility] Procedures Code Procedure Name Date Entry Date Standard Description CPT-21348 Hemoccult IFOBT - LAB USE ONLY 14:11:43 BUSINESS PROCESS CONSULTANT CPT-01392 TPSA - LAB USE ONLY 10:37:52 BUSINESS PROCESS CONSULTANT CPT-37358 TSH - LAB USE ONLY 10:37:51 BUSINESS PROCESS CONSULTANT CPT-76278 CMP - LAB USE ONLY 10:37:51 BUSINESS PROCESS CONSULTANT CPT-36007 CBC with Diff - LAB USE ONLY 10:37:51 BUSINESS PROCESS CONSULTANT CPT-18103 Venipuncture Draw Fee 10:37:51 BUSINESS PROCESS CONSULTANT CPT-000 Give Pneumovax 10:39:30 CDT CPT-78322 Venipuncture Draw Fee 09:32:34 CDT CPT-G0438 Initial Annual Wellness Exam 10:24:35 CDT CPT-97566 Venipuncture Draw Fee 09:46:29 CDT CPT-60385 Venipuncture Draw Fee 14:30:06 CDT CPT-00313 Venipuncture Draw Fee 10:58:22 CDT CPT-13484 Abd single AP View 08:32:00 CDT CPT-74488 Postop F/U Visit 21:13:08 CDT CPT-87609 Abd single AP View 15:50:24 CDT CPT-82114 Cystoscopy W/rem FB 15:21:28 CDT CPT-84907 Abd single AP View 14:06:45 CDT CPT-93593 Postop F/U Visit 09:48:32 CDT CPT-95148 Abd single AP View 13:58:26 CDT CPT-40581 Hip comp min 2V 10:27:18 BUSINESS PROCESS CONSULTANT CPT-61845 Urine Dip (Floor Use Only) 13:41:01 BUSINESS PROCESS CONSULTANT CPT-17538 Postop F/U Visit 11:17:48 CDT CPT-LR Lesion Removal 11:50:22 CDT CPT-OV Office Visit 11:50:22 CDT CPT-98212 Pneumovax 23 10:55:48 CDT CPT-26274 Administration single or combination vaccine inc oral 10 :55:48 CDT CPT-Cryo Cryotherapy 11:18:11 CDT CPT-OV Office Visit 11:18:11 CDT CPT-08343 LS spine AP and Lat 09:05:22 CDT CPT-02984 Bladder Scan 15:42:00 CDT CPT-84769 Cystoscopy 15:42:00 CDT CPT-OV Office Visit 16:37:19 BUSINESS PROCESS CONSULTANT CPT-35505 Bladder Scan 15:32:10 BUSINESS PROCESS CONSULTANT CPT-49262 Cystoscopy 15:32:10 BUSINESS PROCESS CONSULTANT CPT-25449 Abd single AP View 14:05:59 BUSINESS PROCESS CONSULTANT CPT-23410 Pill cam small bowel 09:48:39 BUSINESS PROCESS CONSULTANT CPT-19683 Urine Dip (Floor Use Only) 17:17:19 BUSINESS PROCESS CONSULTANT CPT-33311 Bladder Scan 17:17:19 BUSINESS PROCESS CONSULTANT CPT-OV Office Visit 11:50:26 BUSINESS PROCESS CONSULTANT CPT-49902 Bladder Scan 10:10:42 CDT CPT-12556 Venipuncture Draw Fee 09:14:04 CDT CPT-15746 Chest 2V Frontal and Lat 10:10:49 CDT CPT-12931 LS spine comp w obliq 11:50:11 CDT CPT-81171 Venipuncture Draw Fee 08:52:57 BUSINESS PROCESS CONSULTANT CPT-19992 Cystoscopy W/rem FB 18:37:28 CDT CPT-64189 Abd single AP View 16:18:40 CDT CPT-30423 Abd compl w upright 17:30:59 CDT
--- OUTSIDE RECORDS SUMMARY | 2016-11-22 15:50 | XMS REPORT | Clinical Summary ---
Author Author Admin, QIE Organization [employer] Address Unknown Phone Unavailable Allergies, Adverse Reactions, [...] collapse Iron deficiency 280.9 Active Jasmin Dixon [facility] Iron deficiency anemia, unspecified NAUSEA AND [...] Poe MD Pruritic rash ICD-698.8 Inactive Capo Peo MD Elevated creatinine ICD-790.4 Inactive Capo Poe MD Medication List Medication Instructions Start Date Stop Date Generic Name NDC Status Provider Patient Instruction EQL IRON SUPPLEMENT THERAPY 325 MG ORAL TABS 1 tab po twice daily FERROUS SULFATE 04991004186 Active Jasmin TEIXEIRA Active D ORAL TABS 2000 iu weekly D ORAL TABS Active Capo Poe MD Active CITALOPRAM HYDROBROMIDE 20 MG TABS 1 tablet by mouth daily CITALOPRAM HYDROBROMIDE 15382360374 Active Capo Poe MD Active CLARITIN 5 MG ORAL CHEW 1 tab po q day LORATADINE 08894708107 Active Felisa TEIXEIRA Active VIIBRYD STARTER PACK 10 & 20 MG ORAL KIT 1 po qd as directed 2015 VILAZODONE HCL 22456491772 No Longer Active Felisa TEIXEIRA Active HYDROXYZINE HCL 25 MG TAB 1 po qHS PRN Insomnia HYDROXYZINE HCL 25614465060 Active Capo Poe MD Active LISINOPRIL 10 MG TABS 1 tablet by mouth daily LISINOPRIL 91860282884 Active Capo Poe MD Active LORTAB 7.5-325 MG ORAL TABS 1 po q 6 hr prn pain HYDROCODONE- ACETAMINOPHEN 56744312288 No Longer Active Capo Poe MD Active FLOMAX 0.4 MG CAPS Take one by mouth daily TAMSULOSIN HCL 54404872317 No Longer Active Capo Poe MD Active TRIAMCINOLONE ACETONIDE 0.1 % CREA Apply to affected areas TID for up to 2 weeks TRIAMCINOLONE ACETONIDE 63308484339 Active Capo Poe MD Active NICOTINE 14 MG/24HR TRANS PT24 Apply/Change q 24hr NICOTINE 48911954290 No Longer Active Capo Poe MD Active TRAMADOL HCL 50 MG TABS 1-2 tablets every 6 hours as needed for pain TRAMADOL HCL 70304539362 No Longer Active Capo Poe MD Active SERTRALINE HCL 100 MG ORAL TABS take 1 tab daily SERTRALINE HCL 88659638015 No Longer Active Capo Poe MD Active LISINOPRIL-HYDROCHLOROTHIAZIDE 10-12.5 MG TABS 0.5 tab by mouth daily LISINOPRIL-HYDROCHLOROTHIAZIDE 63047200275 No Longer Active Capo Poe MD Active OMEPRAZOLE 20 MG CPDR 1 tablet by mouth daily OMEPRAZOLE 79024494416 Active Capo Poe MD Active WELLBUTRIN SR 150 MG ORAL SK64E-TDE 1 po BID BUPROPION HCL 06720972677 No Longer Active Capo Poe MD Active MIRALAX PACK 1 po qd PRN Constipation POLYETHYLENE GLYCOL 3350 66348786475 Active Capo Poe MD Active DULERA 100-5 MCG/ACT AERO 2 puffs BID MOMETASONE FURO- FORMOTEROL FUM 70702425456 Active Capo Poe MD Active ZOLOFT 100 MG TABS 1 po daily SERTRALINE HCL 50140929399 No Longer Active Zoran Arzola MD Active FERROUS SULFATE 325 (65 FE) MG TABS 1 tablet by mouth daily FERROUS SULFATE 97255710927 No Longer Active Capo Poe MD Active HYDROCODONE-ACETAMINOPHEN 7.5-300 MG TABS take one every six hours HYDROCODONE-ACETAMINOPHEN 51178052645 No Longer Active Capo Poe MD Active TRIAMCINOLONE ACETONIDE 0.1 % OINT Apply to affected areas TID for up to 2 weeks TRIAMCINOLONE ACETONIDE 82541101030 No Longer Active Joe Vargas RN Active FERROUS SULFATE 325 (65 FE) MG TABS Take one by mouth daily FERROUS SULFATE 34968456464 No Longer Active Capo Poe MD Active TRIAMCINOLONE ACETONIDE 0.1 % OINT Apply to affected areas TID for up to 2 weeks TRIAMCINOLONE ACETONIDE 74199633343 No Longer Active Capo Poe MD Active ADULT ASPIRIN LOW STRENGTH 81 MG TBDP qd ASPIRIN 15823555180 Active Zoran Arzola MD Active ALEVE 220 MG TAB prn NAPROXEN SODIUM 52416845654 Active Capo Poe MD Active MACROBID 100 MG CAP 1 cap by mouth twice daily NITROFURANTOIN MONOHYD MACRO 32165918862 No Longer Active Dona Becker Active AZITHROMYCIN 250 MG TABS 2 po qd x 1 day, then 1 po qd x 4 days AZITHROMYCIN 70562651897 No Longer Active Capo Poe MD Active FISH OIL 500 MG CAPS by mouth twice a day OMEGA-3 FATTY ACIDS 70338230200 Active Capo Poe MD Active FLAXSEED OIL 1000 MG CAPS Take two by mouth daily FLAXSEED (LINSEED) 57714051136 Active Zoran Arzola MD Active RED YEAST RICE 600 MG CAPS Take two by mouth daily RED YEAST RICE EXTRACT 77202345145 Active Zoran Arzola MD Active MULTIVITAMINS CAPS Take one by mouth daily MULTIPLE VITAMIN 94986844423 Active Zoran Arzola MD Active ICAPS MV TABS 2 po daily MULTIPLE VITAMINS-MINERALS 32038057579 Active Jam Arnold DO Active MACROBID 100 MG CAP 1 cap by mouth twice daily MACROBID 100 MG CAP 3648843 NITROFURANTOIN MONOHYD MACRO Inactive FERROUS SULFATE 325 (65 FE) MG TABS Take one by mouth daily FERROUS SULFATE 325 (65 FE) MG TABS 546337 FERROUS SULFATE Inactive HYDROCODONE-ACETAMINOPHEN 7.5-300 MG TABS take one every six hours HYDROCODONE-ACETAMINOPHEN 7.5-300 MG TABS 845430 HYDROCODONE- ACETAMINOPHEN Inactive FERROUS SULFATE 325 (65 FE) MG TABS 1 tablet by mouth daily FERROUS SULFATE 325 (65 FE) MG TABS 124590 FERROUS SULFATE Inactive ZOLOFT 100 MG TABS 1 po daily ZOLOFT 100 MG TABS 109843 SERTRALINE HCL Inactive SERTRALINE HCL 100 MG ORAL TABS take 1 tab daily SERTRALINE HCL 100 MG ORAL TABS 464682 SERTRALINE HCL Inactive TRAMADOL HCL 50 MG TABS 1-2 tablets every 6 hours as needed for pain TRAMADOL HCL 50 MG TABS 907874 TRAMADOL HCL Inactive NICOTINE 14 MG/24HR TRANS PT24 Apply/Change q 24hr NICOTINE 14 MG/24HR TRANS PT24 305372 NICOTINE Inactive FLOMAX 0.4 MG CAPS Take one by mouth daily FLOMAX 0.4 MG CAPS 768088 TAMSULOSIN HCL Inactive LORTAB 7.5-325 MG ORAL TABS 1 po q 6 hr prn pain LORTAB 7.5- 325 MG ORAL TABS 449634 HYDROCODONE-ACETAMINOPHEN Inactive VIIBRYD STARTER PACK 10 & 20 MG ORAL KIT 1 po qd as directed 2015 VIIBRYD STARTER PACK 10 & 20 MG ORAL KIT VILAZODONE HCL Inactive AZITHROMYCIN 250 MG TABS 2 po qd x 1 day, then 1 po qd x 4 days AZITHROMYCIN 250 MG TABS 1327161 AZITHROMYCIN Inactive TRIAMCINOLONE ACETONIDE 0.1 % OINT Apply to affected areas TID for up to 2 weeks TRIAMCINOLONE ACETONIDE 0.1 % OINT 7166283 TRIAMCINOLONE ACETONIDE Inactive TRIAMCINOLONE ACETONIDE 0.1 % OINT Apply to affected areas TID for up to 2 weeks TRIAMCINOLONE ACETONIDE 0.1 % OINT 1249146 TRIAMCINOLONE ACETONIDE Inactive Advance Directives Directive Description [...] ... - Chemistry sodium, serum 141 mmol/L 861-799 5138/01/27 carbon dioxide, venous blood 29.7 mmol/L 21.0-32.0 [...] ... - Chemistry sodium, serum 138 mmol/L 395-327 1162/03/18 carbon dioxide, venous blood 25.5 mmol/L 21.0-32.0 potassium, serum 4.6 mmol/L 3.5-5.2 chloride, serum 101 mmol/L 98-107 blood glucose 129 mg/dL 65-110 urea nitrogen, blood 20 mg/dL 7-18 creatinine, serum 1.87 mg/dL 0.55-1.30 alanine aminotransferase (SGPT), serum 26 U/L 12-78 aspartate aminotransferase (SGOT), serum 20 U/L 15-37 calcium, serum 8.8 mg/dL 8.5-10.1 bilirubin, serum, total 0.40 mg/dL 0.00-1.00 cholesterol, serum 251 mg/dL 881-950 3871/03/18 triglyceride, serum, fasting 135 mg/dL 30-200 HDL [...] 0-19 Encounters Code Encounter Date Provider Facility CPT-32471 Level 4 Est. Patient 09:26:11 [facility] [employer] Capo Poe MD [facility] CPT-56164 Level 4 Est. Patient 08:53:08 CDT Capo Poe MD [facility] CPT-52509 Level 4 Est. Patient 10:22:57 CDT Capo Poe MD [facility] CPT-55166 Level 4 Est. Patient 13:44:30 CDT Capo Poe MD [facility] CPT-74027 Level 3 Est. Patient 14:59:32 [facility] [employer] Capo Poe MD [facility] CPT-80007 Level 4 Est. Patient 10:46:15 [employer] [employer] Capo Poe MD [facility] CPT-95611 Level 3 Est. Patient 11:00:53 CDT Capo Poe MD [facility] CPT-90145 Level 3 Est. Patient 09:39:35 CDT Capo Poe MD [facility] CPT-90700 Level 3 Est. Patient 09:27:01 CDT Capo Poe MD [facility] CPT-94371 Level 3 Est. Patient 18:37:08 CDT Zoran Arzola MD [facility] CPT-48760 Level 3 Est. Patient 15:00:28 CDT Capo Poe MD [facility] CPT-82915 Level 3 Est. Patient 08:20:19 CDT Zoran Arzola MD [facility] CPT-16028 Level 3 Est. Patient 09:22:21 CDT Capo Poe MD [facility] CPT-28214 Level 4 Est. Patient 10:21:30 [facility] [employer] Capo Poe MD [facility] CPT-54308 Level 3 Est. Patient 17:08:51 [facility] [employer] Zoran Arzola MD [facility] CPT-98511 Level 4 Est. Patient 09:44:42 CDT Capo Poe MD [facility] CPT-26139 Level 4 Est. Patient 10:39:29 CDT Capo Poe MD [facility] CPT-00425 Level 3 Est. Patient 17:45:23 CDT Zoran Arzola MD [facility] CPT-31465 Level 4 Est. Patient 08:50:44 CDT Capo Poe MD [facility] CPT-15853 Level 3 Est. Patient 10:39:51 [employer] [employer] Capo Poe MD [facility] CPT-24179 Level 4 Est. Patient 09:44:24 [facility] [employer] Capo Poe MD [facility] CPT-16283 Level 3 Est. Patient 14:48:42 [facility] [employer] Zoran Arzola MD [facility] CPT-03480 Level 4 Est. Patient 10:24:02 CDT Capo Poe MD [facility] CPT-42162 Level 3 Est. Patient 15:42:00 CDT Maya DUKES [facility] CPT-43729 Level 4 Est. Patient 13:34:15 CDT Capo Poe MD [facility] CPT-55790 Level 3 Est. Patient 15:32:10 [facility] [employer] Zoran Arzola MD [facility] CPT-80411 Level 3 New Patient 17:17:19 [facility] [employer] Zoran Arzola MD [facility] CPT-26709 Level 4 Est. Patient 10:25:01 [employer] Capo Poe MD [facility] CPT-45168 Level 3 Est. Patient 10:10:42 CDT Zoran Arzola MD [facility] CPT-05988 Level 3 Est. Patient 22:30:02 CDT Zoran Arzola MD [facility] CPT-09513 Level 4 Est. Patient 09:54:20 CDT Capo Poe MD [facility] CPT-48143 Level 3 Est. Patient 10:48:30 CDT Capo Poe MD [facility] CPT-15243 Level 3 Est. Patient 11:24:45 CDT Capo Poe MD [facility] CPT-39306 Level 3 Est. Patient 15:23:48 [employer] Capo Poe MD [facility] CPT-52455 Level 3 Est. Patient 15:10:03 [employer] Capo Poe MD [facility] CPT-35934 Level 3 Est. Patient 16:18:40 CDT Zoran Arzola MD [facility] Procedures Code Procedure Name Date Entry Date Standard Description CPT-94057 TPSA - LAB USE ONLY 10:37:52 [facility] [employer] CPT-00116 TSH - LAB USE ONLY 10:37:51 [facility] [employer] CPT-47970 CMP - LAB USE ONLY 10:37:51 [facility] [employer] CPT-07962 CBC with Diff - LAB USE ONLY 10:37:51 [facility] [employer] CPT-05513 Venipuncture Draw Fee 10:37:51 [facility] [employer] CPT-000 Give Pneumovax 10:39:30 CDT CPT-27994 Venipuncture Draw Fee 09:32:34 CDT CPT-G0438 Initial Annual Wellness Exam 10:24:35 CDT CPT-06608 Venipuncture Draw Fee 09:46:29 CDT CPT-03332 Venipuncture Draw Fee 14:30:06 CDT CPT-64859 Venipuncture Draw Fee 10:58:22 CDT CPT-06008 Abd single AP View 08:32:00 CDT CPT-79380 Postop F/U Visit 21:13:08 CDT CPT-28290 Abd single AP View 15:50:24 CDT CPT-92702 Cystoscopy W/rem FB 15:21:28 CDT CPT-83533 Abd single AP View 14:06:45 CDT CPT-91163 Postop F/U Visit 09:48:32 CDT CPT-49120 Abd single AP View 13:58:26 CDT CPT-52189 Hip comp min 2V 10:27:18 [facility] [employer] CPT-28480 Urine Dip (Floor Use Only) 13:41:01 [facility] [employer] CPT-62501 Postop F/U Visit 11:17:48 CDT CPT-LR Lesion Removal 11:50:22 CDT CPT-OV Office Visit 11:50:22 CDT CPT-22227 Pneumovax 23 10:55:48 CDT CPT-53151 Administration single or combination vaccine inc oral 10 :55:48 CDT CPT-Cryo Cryotherapy 11:18:11 CDT CPT-OV Office Visit 11:18:11 CDT CPT-75649 LS spine AP and Lat 09:05:22 CDT CPT-56686 Bladder Scan 15:42:00 CDT CPT-13691 Cystoscopy 15:42:00 CDT CPT-OV Office Visit 16:37:19 [employer] [employer] CPT-98467 Bladder Scan 15:32:10 [employer] [employer] CPT-18555 Cystoscopy 15:32:10 [employer] [employer] CPT-17599 Abd single AP View 14:05:59 [employer] [employer] CPT-78793 Pill cam small bowel 09:48:39 [facility] [employer] CPT-35877 Urine Dip (Floor Use Only) 17:17:19 [facility] [employer] CPT-23996 Bladder Scan 17:17:19 [facility] [employer] CPT-OV Office Visit 11:50:26 [facility] [employer] CPT-37779 Bladder Scan 10:10:42 CDT CPT-60160 Venipuncture Draw Fee 09:14:04 CDT CPT-57050 Chest 2V Frontal and Lat 10:10:49 CDT CPT-47563 LS spine comp w obliq 11:50:11 CDT CPT-70845 Venipuncture Draw Fee 08:52:57 [facility] [employer] CPT-14164 Cystoscopy W/rem FB 18:37:28 CDT CPT-75889 Abd single AP View 16:18:40 CDT CPT-42131 Abd compl w upright 17:30:59 CDT
[2016-11-22] MEDS ORDERED: DEXAMETHASONE 10 MG/ML (DECADRON) 1 ML VIAL ONE (15:51)
[2016-11-22] MEDS ORDERED: MIDAZOLAM 2 MG/2 ML (VERSED) VIAL ONE (15:51)
[2016-11-22] MEDS ORDERED: proPOfol 200 MG/20 ML (DIPRIVAN) VIAL IV ONE ×2 (15:51→16:33)
[2016-11-22] MEDS ORDERED: ONDANSETRON 4 MG/2 ML (SDV) Z0FRAN ONE (15:51)
[2016-11-22] MEDS ORDERED: SEVOFLURANE (ULTANE) 15 ML INHAL SOLN ONE (15:51)
[2016-11-22] MEDS ORDERED: fentaNYL INJECTION 100 MCG/2 ML AMP ONE (15:51)
--- OUTSIDE RECORDS SUMMARY | 2016-11-22 15:51 | XMS REPORT | Clinical Summary ---
Author Author Admin, MARGE Organization [facility] Address Unknown Phone Unavailable Allergies, Adverse [...] MD Tobacco use disorder Urethral calculus 594.2 Active Cheryl TEIXEIRA Calculus in urethra NAUSEA AND VOMITING ICD-787.01 Inactive Capo Poe [...] Generic Name NDC Status Provider Patient Instruction WELLBUTRIN SR 150 MG ORAL [id number] 1 po BID BUPROPION HCL 68719176835 Active Capo Poe MD Active NICOTINE 14 MG/24HR TRANS PT24 Apply/Change q 24hr NICOTINE 57307526822 Active Capo Poe MD Active LORTAB 7.5-325 MG ORAL TABS 1 po q 6 hr prn pain HYDROCODONE- ACETAMINOPHEN 86427183048 Active Capo Poe MD Active FLOMAX 0.4 MG CAPS Take one by mouth daily TAMSULOSIN HCL 63627742490 Active Capo Poe MD Active MIRALAX PACK 1 po qd PRN Constipation POLYETHYLENE GLYCOL 3350 80706947043 Active Capo Poe MD Active DULERA 100-5 MCG/ACT AERO 2 puffs BID MOMETASONE FURO- FORMOTEROL FUM 31326997250 Active Capo Poe MD Active SERTRALINE HCL 100 MG ORAL TABS take 1 tab daily SERTRALINE HCL 66240402458 Active Capo Poe MD Active ZOLOFT 100 MG TABS 1 po daily SERTRALINE HCL 83056677893 No Longer Active Zoran Arzola MD Active FERROUS SULFATE 325 (65 FE) MG TABS 1 tablet by mouth daily FERROUS SULFATE 88229149380 No Longer Active Capo Poe MD Active TRAMADOL HCL 50 MG TABS 1-2 tablets every 6 hours as needed for pain TRAMADOL HCL 91435142872 Active Capo Poe MD Active HYDROCODONE-ACETAMINOPHEN 7.5-300 MG TABS take one every six hours HYDROCODONE-ACETAMINOPHEN 22470246629 No Longer Active Capo Poe MD Active TRIAMCINOLONE ACETONIDE 0.1 % OINT Apply to affected areas TID for up to 2 weeks TRIAMCINOLONE ACETONIDE 56591943266 No Longer Active Joe Vargas RN Active FERROUS SULFATE 325 (65 FE) MG TABS Take one by mouth daily FERROUS SULFATE 72861894336 No Longer Active Capo Poe MD Active TRIAMCINOLONE ACETONIDE 0.1 % OINT Apply to affected areas TID for up to 2 weeks TRIAMCINOLONE ACETONIDE 84077464123 No Longer Active Capo Poe MD Active ADULT ASPIRIN LOW STRENGTH 81 MG TBDP qd ASPIRIN 66836272746 Active Zoran Arzola MD Active ALEVE 220 MG TAB prn NAPROXEN SODIUM 92412740985 Active Capo Poe MD Active LISINOPRIL-HYDROCHLOROTHIAZIDE 10-12.5 MG TABS 1 tab by mouth daily LISINOPRIL-HYDROCHLOROTHIAZIDE 15125445181 Active Capo Poe MD Active MACROBID 100 MG CAP 1 cap by mouth twice daily NITROFURANTOIN MONOHYD MACRO 02606520191 No Longer Active Dona Becker Active AZITHROMYCIN 250 MG TABS 2 po qd x 1 day, then 1 po qd x 4 days AZITHROMYCIN 80798064823 No Longer Active Capo Poe MD Active FISH OIL 500 MG CAPS by mouth twice a day OMEGA-3 FATTY ACIDS 47389304485 Active Capo Poe MD Active FLAXSEED OIL 1000 MG CAPS Take two by mouth daily FLAXSEED (LINSEED) 43194730329 Elza Arzola MD Active RED YEAST RICE 600 MG CAPS Take two by mouth daily RED YEAST RICE EXTRACT 57477120753 Active Zoran Arzola MD Active MULTIVITAMINS CAPS Take one by mouth daily MULTIPLE VITAMIN 02439668219 Active Zoran Arzola MD Active ICAPS MV TABS 2 po daily MULTIPLE VITAMINS-MINERALS 23141376482 Active Jam Arnold DO Active MACROBID 100 MG CAP 1 cap by mouth twice daily MACROBID 100 MG CAP 6699344 NITROFURANTOIN MONOHYD MACRO Inactive FERROUS SULFATE 325 (65 FE) MG TABS Take one by mouth daily FERROUS SULFATE 325 (65 FE) MG TABS 571359 FERROUS SULFATE Inactive HYDROCODONE-ACETAMINOPHEN 7.5-300 MG TABS take one every six hours HYDROCODONE-ACETAMINOPHEN 7.5-300 MG TABS 286511 HYDROCODONE- ACETAMINOPHEN Inactive FERROUS SULFATE 325 (65 FE) MG TABS 1 tablet by mouth daily FERROUS SULFATE 325 (65 FE) MG TABS 695466 FERROUS SULFATE Inactive ZOLOFT 100 MG TABS 1 po daily ZOLOFT 100 MG TABS 153546 SERTRALINE HCL Inactive AZITHROMYCIN 250 MG TABS 2 po qd x 1 day, then 1 po qd x 4 days AZITHROMYCIN 250 MG TABS 7755948 AZITHROMYCIN Inactive TRIAMCINOLONE ACETONIDE 0.1 % OINT Apply to affected areas TID for up to 2 weeks TRIAMCINOLONE ACETONIDE 0.1 % OINT 4070019 TRIAMCINOLONE ACETONIDE Inactive TRIAMCINOLONE ACETONIDE 0.1 % OINT Apply to affected areas TID for up to 2 weeks TRIAMCINOLONE ACETONIDE 0.1 % OINT 0246030 TRIAMCINOLONE ACETONIDE Inactive Advance Directives Directive Description [...] Panel - Chemistry sodium, serum 139 mmol/L 041-695 2352/07/30 potassium, serum 4.7 mmol/L 3.5-5.2 chloride, serum [...] CBC - Chemistry cholesterol, serum 207 mg/dL 006-277 8016/02/11 triglyceride, serum, fasting 74 mg/dL 30-200 HDL cholesterol, serum 62 mg/dL 32-96 LDL cholesterol, serum 130 mg/dL 0-130 sodium, serum 144 mmol/L 734-880 9655/02/11 potassium, serum 5.0 mmol/L 3.5-5.2 chloride, serum [...] antigen 1.11 ng/mL 0.00-4.00 prostate specific antigen 0.62 ng/mL 0.00-4.00 Office Visit: 4 mo f/u [...] negative Encounters Code Encounter Date Provider Facility CPT-92194 Level 3 Est. Patient 09:39:35 CDT Capo Poe MD [facility] CPT-73747 Level 3 Est. Patient 09:27:01 CDT Capo Poe MD [facility] CPT-11585 Level 3 Est. Patient 18:37:08 CDT Zoran Arzola MD [facility]-26011 Level 3 Est. Patient 15:00:28 CDT Capo Poe MD [facility] CPT-45573 Level 3 Est. Patient 08:20:19 CDT Zoran Arzola MD [facility] CPT-22650 Level 3 Est. Patient 09:22:21 CDT Capo Poe MD [facility] CPT-07556 Level 4 Est. Patient 10:21:30 [employer] Capo Poe MD [facility] CPT-03127 Level 3 Est. Patient 17:08:51 [employer] Zoran Arzola MD [facility] CPT-78326 Level 4 Est. Patient 09:44:42 CDT Capo Poe MD [facility] CPT-82931 Level 4 Est. Patient 10:39:29 CDT Capo Poe MD [facility] CPT-83950 Level 3 Est. Patient 17:45:23 CDT Zoran Arzola MD [facility] CPT-80553 Level 4 Est. Patient 08:50:44 CDT Capo Poe MD [facility] CPT-70706 Level 3 Est. Patient 10:39:51 [employer] Capo Poe MD [facility] CPT-28335 Level 4 Est. Patient 09:44:24 [employer] Capo Poe MD [facility] CPT-52110 Level 3 Est. Patient 14:48:42 [employer] Zoran Arzola MD [facility] CPT-52070 Level 4 Est. Patient 10:24:02 CDT Capo Poe MD [facility] CPT-68285 Level 3 Est. Patient 15:42:00 CDT Maya DUKES [facility] CPT-83090 Level 4 Est. Patient 13:34:15 CDT Capo Poe MD [facility] CPT-24721 Level 3 Est. Patient 15:32:10 [employer] Zoran Arzola MD [facility] CPT-96100 Level 3 New Patient 17:17:19 [employer] Zoran Arzola MD [facility] CPT-47491 Level 4 Est. Patient 10:25:01 [employer] Capo Poe MD [facility] CPT-57225 Level 3 Est. Patient 10:10:42 CDT Zoran Arzola MD [facility] CPT-31900 Level 3 Est. Patient 22:30:02 CDT Zoran Arzola MD [facility] CPT-43789 Level 4 Est. Patient 09:54:20 CDT Capo Poe MD [facility] CPT-52153 Level 3 Est. Patient 10:48:30 CDT Capo Poe MD [facility] CPT-81654 Level 3 Est. Patient 11:24:45 CDT Capo Poe MD [facility] CPT-55585 Level 3 Est. Patient 15:23:48 [employer] Capo Poe MD [facility] CPT-62324 Level 3 Est. Patient 15:10:03 [employer] Capo Poe MD [facility] CPT-74006 Level 3 Est. Patient 16:18:40 CDT Zoran Arzola MD [facility] Procedures Code Procedure Name Date Entry Date Standard Description CPT-03572 Venipuncture Draw Fee 10:58:22 CDT CPT-38530 Abd single AP View 08:32:00 CDT CPT-90639 Postop F/U Visit 21:13:08 CDT CPT-04680 Abd single AP View 15:50:24 CDT CPT-56685 Cystoscopy W/rem FB 15:21:28 CDT CPT-13380 Abd single AP View 14:06:45 CDT CPT-19293 Postop F/U Visit 09:48:32 CDT CPT-46362 Abd single AP View 13:58:26 CDT CPT-70902 Hip comp min 2V 10:27:18 [employer] CPT-86997 Urine Dip (Floor Use Only) 13:41:01 [employer] CPT-37209 Postop F/U Visit 11:17:48 CDT CPT-LR Lesion Removal 11:50:22 CDT CPT-OV Office Visit 11:50:22 CDT CPT-82798 Pneumovax 23 10:55:48 CDT CPT-28942 Administration single or combination vaccine inc oral 10 :55:48 CDT CPT-Cryo Cryotherapy 11:18:11 CDT CPT-OV Office Visit 11:18:11 CDT CPT-85653 LS spine AP and Lat 09:05:22 CDT CPT-10082 Bladder Scan 15:42:00 CDT CPT-41803 Cystoscopy 15:42:00 CDT CPT-OV Office Visit 16:37:19 [employer] CPT-19049 Bladder Scan 15:32:10 [employer] CPT-36094 Cystoscopy 15:32:10 [employer] CPT-20442 Abd single AP View 14:05:59 [employer] CPT-96415 Pill cam small bowel 09:48:39 [employer] CPT-80500 Urine Dip (Floor Use Only) 17:17:19 [employer] CPT-89823 Bladder Scan 17:17:19 [employer] CPT-OV Office Visit 11:50:26 [employer] CPT-08302 Bladder Scan 10:10:42 CDT CPT-42598 Venipuncture Draw Fee 09:14:04 CDT CPT-50971 Chest 2V Frontal and Lat 10:10:49 CDT CPT-99854 LS spine comp w obliq 11:50:11 CDT CPT-09861 Venipuncture Draw Fee 08:52:57 [employer] CPT-48679 Cystoscopy W/rem FB 18:37:28 CDT CPT-63108 Abd single AP View 16:18:40 CDT CPT-17336 Abd compl w upright 17:30:59 CDT
--- OUTSIDE RECORDS SUMMARY | 2016-11-22 15:52 | XMS REPORT | Clinical Summary ---
Author Author Admin, QIE Organization [employer] Address Unknown Phone Unavailable Allergies, Adverse Reactions, [...] of transaminase or lactic acid dehydrogenase [LDH] CALCULUS OF KIDNEY ICD-592.0 Inactive Capo Poe MD URETERAL CALCULUS ICD-592.1 Inactive Capo Poe MD FLANK PAIN ICD-789.09 Inactive Capo Poe MD 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 Inactive Capo Poe MD RENAL CALCULUS ICD-592.9 Inactive Capo Poe MD FLANK PAIN, RIGHT ICD-789.09 Inactive Capo Poe MD SCIATICA ICD-724.3 Inactive Capo Poe MD 2011 BRONCHITIS, ACUTE ICD-466.0 Inactive Capo Poe MD NAUSEA AND VOMITING ICD-787.01 Inactive Capo Poe [...] SKIN ERUPTION ICD-782.1 Inactive Capo Poe MD URINARY FREQUENCY ICD-788.41 Inactive Capo Poe MD Near syncope ICD-780.2 Inactive Capo Poe MD Lumbar radiculopathy ICD-724.4 Clyde Poe 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 Inactive Capo Poe MD UTI ICD-599.0 Inactive Capo Poe MD Hematuria ICD-599.70 Clyde Poe MD Sciatica, right ICD-724.3 Inactive Capo Poe MD Renal Calculus ICD-592.9 Clyde Poe MD Urethral calculus ICD-594.2 Clyde Moorelow MD Chest pain ICD-786.50 Inactive Capo Poe MD Prostate cancer screening ICD-V76.44 Inactive Capo Poe MD Pruritic rash ICD-698.8 Inactive Capo Poe MD Elevated creatinine ICD-790.4 Inactive Capo Poe MD Ecchymoses, spontaneous ICD-782.7 Inactive Capo Poe MD Skin lesion ICD-709.9 Inactive Capo Poe MD Medication List Medication Instructions Start Date Stop Date Generic Name NDC Status Provider Patient Instruction CITALOPRAM HYDROBROMIDE 20 MG TABS 1 tablet by mouth daily CITALOPRAM HYDROBROMIDE 78213990072 Active Felisa Daphney TEIXEIRA Active CLARITIN 5 MG ORAL CHEW 1 tab po q day LORATADINE 48179506358 Active Felisa Daphney RMMarva Active VIIBRYD STARTER PACK 10 & 20 MG ORAL KIT 1 po qd as directed 2015 VILAZODONE HCL 99940846909 No Longer Active Felisa TEIXEIRA Active HYDROXYZINE HCL 25 MG TAB 1 po qHS PRN Insomnia HYDROXYZINE HCL 09544177989 Active Capo Poe MD Active LISINOPRIL 10 MG TABS 1 tablet by mouth daily LISINOPRIL 27118291401 Active Capo Poe MD Active LORTAB 7.5-325 MG ORAL TABS 1 po q 6 hr prn pain HYDROCODONE- ACETAMINOPHEN 26191381094 No Longer Active Capo Poe MD Active FLOMAX 0.4 MG CAPS Take one by mouth daily TAMSULOSIN HCL 44535063214 No Longer Active Capo Poe MD Active TRIAMCINOLONE ACETONIDE 0.1 % CREA Apply to affected areas TID for up to 2 weeks TRIAMCINOLONE ACETONIDE 33742418361 Active Capo Poe MD Active NICOTINE 14 MG/24HR TRANS PT24 Apply/Change q 24hr NICOTINE 92860451814 No Longer Active Capo Poe MD Active TRAMADOL HCL 50 MG TABS 1-2 tablets every 6 hours as needed for pain TRAMADOL HCL 29437454954 No Longer Active Capo Poe MD Active SERTRALINE HCL 100 MG ORAL TABS take 1 tab daily SERTRALINE HCL 17170940085 No Longer Active Capo Poe MD Active LISINOPRIL-HYDROCHLOROTHIAZIDE 10-12.5 MG TABS 0.5 tab by mouth daily LISINOPRIL-HYDROCHLOROTHIAZIDE 82402733340 No Longer Active Capo Poe MD Active OMEPRAZOLE 20 MG CPDR 1 tablet by mouth daily OMEPRAZOLE 99317647946 Active Capo Poe MD Active WELLBUTRIN SR 150 MG ORAL [id number] 1 po BID BUPROPION HCL 41375520214 No Longer Active Capo Poe MD Active MIRALAX PACK 1 po qd PRN Constipation POLYETHYLENE GLYCOL 3350 54043735558 Active Capo Poe MD Active DULERA 100-5 MCG/ACT AERO 2 puffs BID MOMETASONE FURO- FORMOTEROL FUM 04235369559 Active Capo Poe MD Active ZOLOFT 100 MG TABS 1 po daily SERTRALINE HCL 70361450681 No Longer Active Zoran Arzola MD Active FERROUS SULFATE 325 (65 FE) MG TABS 1 tablet by mouth daily FERROUS SULFATE 84285280330 No Longer Active Capo Poe MD Active HYDROCODONE-ACETAMINOPHEN 7.5-300 MG TABS take one every six hours HYDROCODONE-ACETAMINOPHEN 89502697466 No Longer Active Capo Poe MD Active TRIAMCINOLONE ACETONIDE 0.1 % OINT Apply to affected areas TID for up to 2 weeks TRIAMCINOLONE ACETONIDE 55659716687 No Longer Active Joe Vargas RN Active FERROUS SULFATE 325 (65 FE) MG TABS Take one by mouth daily FERROUS SULFATE 37968905004 No Longer Active Capo Poe MD Active TRIAMCINOLONE ACETONIDE 0.1 % OINT Apply to affected areas TID for up to 2 weeks TRIAMCINOLONE ACETONIDE 77148316612 No Longer Active Capo Poe MD Active ADULT ASPIRIN LOW STRENGTH 81 MG TBDP qd ASPIRIN 37625958501 Active Zoran Arzola MD Active ALEVE 220 MG TAB prn NAPROXEN SODIUM 12358323740 Active Capo Poe MD Active MACROBID 100 MG CAP 1 cap by mouth twice daily NITROFURANTOIN MONOHYD MACRO 93230837097 No Longer Active Dona Becker Active AZITHROMYCIN 250 MG TABS 2 po qd x 1 day, then 1 po qd x 4 days AZITHROMYCIN 09512293524 No Longer Active Capo Poe MD Active FISH OIL 500 MG CAPS by mouth twice a day OMEGA-3 FATTY ACIDS 40174021676 Active Capo Poe MD Active FLAXSEED OIL 1000 MG CAPS Take two by mouth daily FLAXSEED (LINSEED) 73908918736 Active Zoran Arzola MD Active RED YEAST RICE 600 MG CAPS Take two by mouth daily RED YEAST RICE EXTRACT 79681895808 Active Zoran Arzola MD Active MULTIVITAMINS CAPS Take one by mouth daily MULTIPLE VITAMIN 48062488651 Elza Arzola MD Active ICAPS MV TABS 2 po daily MULTIPLE VITAMINS-MINERALS 26562987039 Active Jam Arnold DO Active MACROBID 100 MG CAP 1 cap by mouth twice daily MACROBID 100 MG CAP 6085971 NITROFURANTOIN MONOHYD MACRO Inactive FERROUS SULFATE 325 (65 FE) MG TABS Take one by mouth daily FERROUS SULFATE 325 (65 FE) MG TABS 446194 FERROUS SULFATE Inactive HYDROCODONE-ACETAMINOPHEN 7.5-300 MG TABS take one every six hours HYDROCODONE-ACETAMINOPHEN 7.5-300 MG TABS 475064 HYDROCODONE- ACETAMINOPHEN Inactive FERROUS SULFATE 325 (65 FE) MG TABS 1 tablet by mouth daily FERROUS SULFATE 325 (65 FE) MG TABS 651101 FERROUS SULFATE Inactive ZOLOFT 100 MG TABS 1 po daily ZOLOFT 100 MG TABS 215987 SERTRALINE HCL Inactive SERTRALINE HCL 100 MG ORAL TABS take 1 tab daily SERTRALINE HCL 100 MG ORAL TABS 276528 SERTRALINE HCL Inactive TRAMADOL HCL 50 MG TABS 1-2 tablets every 6 hours as needed for pain TRAMADOL HCL 50 MG TABS 371545 TRAMADOL HCL Inactive NICOTINE 14 MG/24HR TRANS PT24 Apply/Change q 24hr NICOTINE 14 MG/24HR TRANS PT24 766146 NICOTINE Inactive FLOMAX 0.4 MG CAPS Take one by mouth daily FLOMAX 0.4 MG CAPS 975357 TAMSULOSIN HCL Inactive LORTAB 7.5-325 MG ORAL TABS 1 po q 6 hr prn pain LORTAB 7.5- 325 MG ORAL TABS 095794 HYDROCODONE-ACETAMINOPHEN Inactive VIIBRYD STARTER PACK 10 & 20 MG ORAL KIT 1 po qd as directed 2015 VIIBRYD STARTER PACK 10 & 20 MG ORAL KIT VILAZODONE HCL Inactive AZITHROMYCIN 250 MG TABS 2 po qd x 1 day, then 1 po qd x 4 days AZITHROMYCIN 250 MG TABS 1415052 AZITHROMYCIN Inactive TRIAMCINOLONE ACETONIDE 0.1 % OINT Apply to affected areas TID for up to 2 weeks TRIAMCINOLONE ACETONIDE 0.1 % OINT 8108569 TRIAMCINOLONE ACETONIDE Inactive TRIAMCINOLONE ACETONIDE 0.1 % OINT Apply to affected areas TID for up to 2 weeks TRIAMCINOLONE ACETONIDE 0.1 % OINT 4378495 TRIAMCINOLONE ACETONIDE Inactive Advance Directives Directive Description [...] E&M - 3141-9 134 [lb_av] Weight Measured Diagnostic Results Date Name Value Unit Range Description Lab Report: Basic Metabolic Panel - Chemistry sodium, serum 139 mmol/L 688-075 0325/07/30 potassium, serum 4.7 mmol/L 3.5-5.2 chloride, serum 101 mmol/L 98-107 carbon dioxide, venous blood 34.8 mmol/L 21.0-32.0 blood glucose 124 mg/dL 65-110 calcium, serum 8.9 mg/dL 8.5-10.1 urea nitrogen, blood 18 mg/dL 7-18 creatinine, serum 1.40 mg/dL 0.60-1.30 Lab Report: BUN, Creatinine - Chemistry urea nitrogen, blood 15 mg/dL 7-18 creatinine, serum 1.29 mg/dL 0.55-1.30 Lab Report: Comp. Metabolic Panel, Lipid Panel, HGBA1C, CBC, MICROALB/CR ... - Chemistry albumin/creatinine ratio, urine 30 - 300 mg/g mg/g{creat} 0-29 sodium, serum 138 mmol/L 238-897 0749/03/18 carbon dioxide, venous blood 25.5 mmol/L 21.0-32.0 potassium, serum 4.6 mmol/L 3.5-5.2 chloride, serum 101 mmol/L 98-107 blood glucose 129 mg/dL 65-110 urea nitrogen, blood 20 mg/dL 7-18 creatinine, serum 1.87 mg/dL 0.55-1.30 alanine aminotransferase (SGPT), serum 26 U/L 12-78 aspartate aminotransferase (SGOT), serum 20 U/L 15-37 calcium, serum 8.8 mg/dL 8.5-10.1 bilirubin, serum, total 0.40 mg/dL 0.00-1.00 cholesterol, serum 251 mg/dL 343-224 5980/03/18 triglyceride, serum, fasting 135 mg/dL 30-200 HDL [...] 0.00-4.00 Encounters Code Encounter Date Provider Facility CPT-60525 Level 4 Est. Patient 10:22:57 CDT Capo Poe MD [facility] CPT-97719 Level 4 Est. Patient 13:44:30 CDT Capo Poe MD [facility] CPT-25347 Level 3 Est. Patient 14:59:32 BEE KEEPER Capo Poe MD [facility] CPT-41357 Level 4 Est. Patient 10:46:15 BEE KEEPER Capo Poe MD [facility] CPT-46323 Level 3 Est. Patient 11:00:53 CDT Capo Poe MD [facility] CPT-83134 Level 3 Est. Patient 09:39:35 CDT Capo Poe MD [facility] CPT-89973 Level 3 Est. Patient 09:27:01 CDT Capo Poe MD [facility] CPT-77967 Level 3 Est. Patient 18:37:08 CDT Zoran Arzola MD [facility] CPT-33371 Level 3 Est. Patient 15:00:28 CDT Capo Poe MD [facility] CPT-11664 Level 3 Est. Patient 08:20:19 CDT Zoran Arzola MD [facility] CPT-50727 Level 3 Est. Patient 09:22:21 CDT Capo Poe MD [facility] CPT-55728 Level 4 Est. Patient 10:21:30 BEE KEEPER Capo Poe MD [facility] CPT-07634 Level 3 Est. Patient 17:08:51 BEE KEEPER Zoran Arzola MD [facility] CPT-55155 Level 4 Est. Patient 09:44:42 CDT Capo Poe MD [facility] CPT-69359 Level 4 Est. Patient 10:39:29 CDT Capo Poe MD [facility] CPT-19215 Level 3 Est. Patient 17:45:23 CDT Zoran Arzola MD [facility] CPT-90432 Level 4 Est. Patient 08:50:44 CDT Capo Poe MD [facility] CPT-44016 Level 3 Est. Patient 10:39:51 BEE KEEPER Capo Poe MD [facility] CPT-80520 Level 4 Est. Patient 09:44:24 BEE KEEPER Capo Poe MD [facility] CPT-24231 Level 3 Est. Patient 14:48:42 BEE KEEPER Zoran Arzola MD [facility] CPT-94288 Level 4 Est. Patient 10:24:02 CDT Capo Poe MD [facility] CPT-86696 Level 3 Est. Patient 15:42:00 CDT Maya DUKES [facility] CPT-80349 Level 4 Est. Patient 13:34:15 CDT Capo Poe MD [facility] CPT-12077 Level 3 Est. Patient 15:32:10 BEE KEEPER Zoran Arzola MD [facility] CPT-92206 Level 3 New Patient 17:17:19 BEE KEEPER Zoran Arzola MD [facility] CPT-23487 Level 4 Est. Patient 10:25:01 BEE KEEPER Capo Poe MD [facility] CPT-16673 Level 3 Est. Patient 10:10:42 CDT Zoran Arzola MD [facility] CPT-43025 Level 3 Est. Patient 22:30:02 CDT Zoran Arzola MD [facility] CPT-13124 Level 4 Est. Patient 09:54:20 CDT Capo Poe MD [facility] CPT-40796 Level 3 Est. Patient 10:48:30 CDT Capo Poe MD [facility] CPT-52433 Level 3 Est. Patient 11:24:45 CDT Capo Poe MD [facility] CPT-11127 Level 3 Est. Patient 15:23:48 BEE KEEPER Capo Poe MD [facility] CPT-19932 Level 3 Est. Patient 15:10:03 BEE KEEPER Capo Poe MD [facility] CPT-30722 Level 3 Est. Patient 16:18:40 CDT Zoran Arzola MD [facility] Procedures Code Procedure Name Date Entry Date Standard Description CPT-96003 Venipuncture Draw Fee 09:32:34 CDT CPT-G0438 Initial Annual Wellness Exam 10:24:35 CDT CPT-46344 Venipuncture Draw Fee 09:46:29 CDT CPT-00498 Venipuncture Draw Fee 14:30:06 CDT CPT-95214 Venipuncture Draw Fee 10:58:22 CDT CPT-41744 Abd single AP View 08:32:00 CDT CPT-60288 Postop F/U Visit 21:13:08 CDT CPT-71374 Abd single AP View 15:50:24 CDT CPT-91381 Cystoscopy W/rem FB 15:21:28 CDT CPT-16791 Abd single AP View 14:06:45 CDT CPT-94625 Postop F/U Visit 09:48:32 CDT CPT-78146 Abd single AP View 13:58:26 CDT CPT-35155 Hip comp min 2V 10:27:18 BEE KEEPER CPT-67320 Urine Dip (Floor Use Only) 13:41:01 BEE KEEPER CPT-85900 Postop F/U Visit 11:17:48 CDT CPT-LR Lesion Removal 11:50:22 CDT CPT-OV Office Visit 11:50:22 CDT CPT-41218 Pneumovax 23 10:55:48 CDT CPT-09785 Administration single or combination vaccine inc oral 10 :55:48 CDT CPT-Cryo Cryotherapy 11:18:11 CDT CPT-OV Office Visit 11:18:11 CDT CPT-76933 LS spine AP and Lat 09:05:22 CDT CPT-11377 Bladder Scan 15:42:00 CDT CPT-62231 Cystoscopy 15:42:00 CDT CPT-OV Office Visit 16:37:19 BEE KEEPER CPT-04932 Bladder Scan 15:32:10 BEE KEEPER CPT-79700 Cystoscopy 15:32:10 BEE KEEPER CPT-49692 Abd single AP View 14:05:59 BEE KEEPER CPT-62053 Pill cam small bowel 09:48:39 BEE KEEPER CPT-27123 Urine Dip (Floor Use Only) 17:17:19 BEE KEEPER CPT-68083 Bladder Scan 17:17:19 BEE KEEPER CPT-OV Office Visit 11:50:26 BEE KEEPER CPT-56728 Bladder Scan 10:10:42 CDT CPT-11082 Venipuncture Draw Fee 09:14:04 CDT CPT-31594 Chest 2V Frontal and Lat 10:10:49 CDT CPT-15543 LS spine comp w obliq 11:50:11 CDT CPT-39298 Venipuncture Draw Fee 08:52:57 BEE KEEPER CPT-51678 Cystoscopy W/rem FB 18:37:28 CDT CPT-40775 Abd single AP View 16:18:40 CDT CPT-41683 Abd compl w upright 17:30:59 CDT
--- OUTSIDE RECORDS SUMMARY | 2016-11-22 15:53 | XMS REPORT | Clinical Summary ---
Author Author Admin, MARGE Organization [facility] Address Unknown Phone Unavailable Allergies, Adverse Reactions, Alerts Allergy Name Reaction Description Start Date Severity Status Provider MACROBID Rash, itching Critical Active Dona Becker MORPHINE Critical Active Zoran Arzola MD STATINS Critical Active aJm Arnold DO Conditions or Problems Problem Name [...] MD Screening for malignant neoplasms of prostate NAUSEA AND VOMITING ICD-787.01 Inactive Capo Poe [...] OF KIDNEY ICD-592.0 Inactive Capo Poe MD URINARY FREQUENCY ICD-788.41 [...] MD HEMATURIA ICD-599.70 Inactive Capo Poe MD RASH AND OTHER NONSPECIFIC SKIN ERUPTION ICD-782.1 Inactive Capo Poe MD Near syncope ICD-780.2 Inactive Capo Poe MD Skin lesion ICD-709.9 Clyde Poe MD Ecchymoses, spontaneous ICD-782.7 Inactive Capo Poe MD Lumbar radiculopathy ICD-724.4 Inactive 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 Inactive Capo Poe MD UTI ICD-599.0 Clyde Poe MD Hematuria ICD-599.70 Clyde Poe MD Sciatica, right ICD-724.3 Clyde Poe MD Renal Calculus ICD-592.9 Clyde Poe MD Urethral calculus ICD-594.2 Inactive Capo Poe MD Chest pain ICD-786.50 Clyde Poe MD Prostate cancer screening ICD-V76.44 Inactive Capo Poe MD U T I-RECURRENT ICD-599.0 Inactive Capo Poe MD Medication List Medication Instructions Start Date Stop Date Generic Name NDC Status Provider Patient Instruction TRAMADOL HCL 50 MG TABS 1-2 tablets every 6 hours as needed for pain TRAMADOL HCL 77147085085 No Longer Active Capo Poe MD Active SERTRALINE HCL 100 MG ORAL TABS take 1 tab daily SERTRALINE HCL 44551042255 No Longer Active Capo Poe MD Active LISINOPRIL-HYDROCHLOROTHIAZIDE 10-12.5 MG TABS 0.5 tab by mouth daily LISINOPRIL-HYDROCHLOROTHIAZIDE 77813120951 Active Capo Poe MD Active OMEPRAZOLE 20 MG CPDR 1 tablet by mouth daily OMEPRAZOLE 71323050598 Active Capo Poe MD Active WELLBUTRIN SR 150 MG ORAL [id number] 1 po BID BUPROPION HCL 84379031362 Active Capo Poe MD Active NICOTINE 14 MG/24HR TRANS PT24 Apply/Change q 24hr NICOTINE 73111466231 Active Capo Poe MD Active LORTAB 7.5-325 MG ORAL TABS 1 po q 6 hr prn pain HYDROCODONE- ACETAMINOPHEN 19458253000 Active Capo Poe MD Active FLOMAX 0.4 MG CAPS Take one by mouth daily TAMSULOSIN HCL 95550713313 Active Capo Poe MD Active MIRALAX PACK 1 po qd PRN Constipation POLYETHYLENE GLYCOL 3350 22713323219 Active Capo Poe MD Active DULERA 100-5 MCG/ACT AERO 2 puffs BID MOMETASONE FURO- FORMOTEROL FUM 57614593523 Active Capo Poe MD Active ZOLOFT 100 MG TABS 1 po daily SERTRALINE HCL 04029385549 No Longer Active Zoran Arzola MD Active FERROUS SULFATE 325 (65 FE) MG TABS 1 tablet by mouth daily FERROUS SULFATE 35748814582 No Longer Active Capo Poe MD Active HYDROCODONE-ACETAMINOPHEN 7.5-300 MG TABS take one every six hours HYDROCODONE-ACETAMINOPHEN 10498346957 No Longer Active Capo Poe MD Active TRIAMCINOLONE ACETONIDE 0.1 % OINT Apply to affected areas TID for up to 2 weeks TRIAMCINOLONE ACETONIDE 56741983305 No Longer Active Joe Vargas RN Active FERROUS SULFATE 325 (65 FE) MG TABS Take one by mouth daily FERROUS SULFATE 60841351175 No Longer Active Capo Poe MD Active TRIAMCINOLONE ACETONIDE 0.1 % OINT Apply to affected areas TID for up to 2 weeks TRIAMCINOLONE ACETONIDE 47306799890 No Longer Active Capo Poe MD Active ADULT ASPIRIN LOW STRENGTH 81 MG TBDP qd ASPIRIN 66026206717 Active Zoran Arzola MD Active ALEVE 220 MG TAB prn NAPROXEN SODIUM 30973797266 Active Capo Poe MD Active MACROBID 100 MG CAP 1 cap by mouth twice daily NITROFURANTOIN MONOHYD MACRO 27262206437 No Longer Active Dona Becker Active AZITHROMYCIN 250 MG TABS 2 po qd x 1 day, then 1 po qd x 4 days AZITHROMYCIN 82461852237 No Longer Active Capo Poe MD Active FISH OIL 500 MG CAPS by mouth twice a day OMEGA-3 FATTY ACIDS 77968504203 Active Capo Poe MD Active FLAXSEED OIL 1000 MG CAPS Take two by mouth daily FLAXSEED (LINSEED) 37529602578 Active Zoran Arzola MD Active RED YEAST RICE 600 MG CAPS Take two by mouth daily RED YEAST RICE EXTRACT 83456834311 Active Zoran Arzola MD Active MULTIVITAMINS CAPS Take one by mouth daily MULTIPLE VITAMIN 77909019006 Active Zoran Arzola MD Active ICAPS MV TABS 2 po daily MULTIPLE VITAMINS-MINERALS 12969086004 Active Jam Arnold DO Active MACROBID 100 MG CAP 1 cap by mouth twice daily MACROBID 100 MG CAP 4329123 NITROFURANTOIN MONOHYD MACRO Inactive FERROUS SULFATE 325 (65 FE) MG TABS Take one by mouth daily FERROUS SULFATE 325 (65 FE) MG TABS 772968 FERROUS SULFATE Inactive HYDROCODONE-ACETAMINOPHEN 7.5-300 MG TABS take one every six hours HYDROCODONE-ACETAMINOPHEN 7.5-300 MG TABS 958055 HYDROCODONE- ACETAMINOPHEN Inactive FERROUS SULFATE 325 (65 FE) MG TABS 1 tablet by mouth daily FERROUS SULFATE 325 (65 FE) MG TABS 604558 FERROUS SULFATE Inactive ZOLOFT 100 MG TABS 1 po daily ZOLOFT 100 MG TABS 615700 SERTRALINE HCL Inactive SERTRALINE HCL 100 MG ORAL TABS take 1 tab daily SERTRALINE HCL 100 MG ORAL TABS 153562 SERTRALINE HCL Inactive TRAMADOL HCL 50 MG TABS 1-2 tablets every 6 hours as needed for pain TRAMADOL HCL 50 MG TABS 256228 TRAMADOL HCL Inactive AZITHROMYCIN 250 MG TABS 2 po qd x 1 day, then 1 po qd x 4 days AZITHROMYCIN 250 MG TABS 4302839 AZITHROMYCIN Inactive TRIAMCINOLONE ACETONIDE 0.1 % OINT Apply to affected areas TID for up to 2 weeks TRIAMCINOLONE ACETONIDE 0.1 % OINT 3932311 TRIAMCINOLONE ACETONIDE Inactive TRIAMCINOLONE ACETONIDE 0.1 % OINT Apply to affected areas TID for up to 2 weeks TRIAMCINOLONE ACETONIDE 0.1 % OINT 8384483 TRIAMCINOLONE ACETONIDE Inactive Advance Directives Directive Description Start Date PERMISSION TO SHARE Immunizations Vaccine Administration Date Value Standard Description pneumococcal immunization administered Pneumovax 23 [CVX33] pneumococcal polysaccharide vaccine, 23 valent Vital Signs Date Name Value Unit Range Description blood pressure, diastolic - 8462-4 57 mm[Hg] [...] E&M - 3141-9 150.2 [lb_av] Weight Measured Diagnostic Results Date Name [...] Lab Report: Basic Metabolic Panel - Chemistry blood glucose 124 mg/dL 65-110 carbon dioxide, venous blood 34.8 mmol/L 21.0-32.0 chloride, serum 101 mmol/L 98-107 potassium, serum 4.7 mmol/L 3.5-5.2 sodium, serum 139 mmol/L 228-315 9623/07/30 calcium, serum 8.9 mg/dL 8.5-10.1 urea nitrogen, blood 18 mg/dL 7-18 creatinine, serum 1.40 mg/dL 0.60-1.30 Lab Report: Lipid Panel, Comp. Metabolic Panel, CBC - Chemistry sodium, serum 144 mmol/L 234-152 1999/02/11 LDL cholesterol, serum 130 mg/dL 0-130 HDL cholesterol, serum 62 mg/dL 32-96 triglyceride, serum, fasting 74 mg/dL 30-200 cholesterol, serum 207 mg/dL 680-005 3962/02/11 potassium, serum 5.0 mmol/L 3.5-5.2 chloride, serum [...] 0.00-4.00 prostate specific antigen 0.80 ng/mL 0.00-4.00 Office Visit: 4 mo f/u [...] negative Encounters Code Encounter Date Provider Facility CPT-32588 Level 4 Est. Patient 10:46:15 PRINTER FLOOR COVERING ASSISTANT Capo Poe MD [facility] CPT-93573 Level 3 Est. Patient 11:00:53 CDT Capo Poe MD [facility] CPT-92424 Level 3 Est. Patient 09:39:35 CDT Capo Poe MD [facility] CPT-12609 Level 3 Est. Patient 09:27:01 CDT Capo Poe MD [facility] CPT-49797 Level 3 Est. Patient 18:37:08 CDT Zoran Arzola MD [facility] CPT-15866 Level 3 Est. Patient 15:00:28 CDT Capo Poe MD [facility] CPT-52414 Level 3 Est. Patient 08:20:19 CDT Zoran Arzola MD [facility] CPT-93743 Level 3 Est. Patient 09:22:21 CDT Capo Poe MD [facility] CPT-80976 Level 4 Est. Patient 10:21:30 PRINTER FLOOR COVERING ASSISTANT aCpo Poe MD [facility] CPT-60603 Level 3 Est. Patient 17:08:51 PRINTER FLOOR COVERING ASSISTANT Zoran Arzola MD [facility] CPT-69422 Level 4 Est. Patient 09:44:42 CDT Capo Poe MD [facility] CPT-54065 Level 4 Est. Patient 10:39:29 CDT Capo Poe MD [facility] CPT-84724 Level 3 Est. Patient 17:45:23 CDT Zoran Arzola MD [facility] CPT-89937 Level 4 Est. Patient 08:50:44 CDT Capo Poe MD [facility] CPT-33776 Level 3 Est. Patient 10:39:51 PRINTER FLOOR COVERING ASSISTANT Capo Poe MD [facility] CPT-78944 Level 4 Est. Patient 09:44:24 PRINTER FLOOR COVERING ASSISTANT Capo Poe MD [facility] CPT-96382 Level 3 Est. Patient 14:48:42 PRINTER FLOOR COVERING ASSISTANT Zoran Arzola MD [facility] CPT-89120 Level 4 Est. Patient 10:24:02 CDT Capo Poe MD [facility] CPT-54199 Level 3 Est. Patient 15:42:00 CDT Maya DUKES [facility] CPT-00720 Level 4 Est. Patient 13:34:15 CDT Capo Poe MD [facility] CPT-20166 Level 3 Est. Patient 15:32:10 PRINTER FLOOR COVERING ASSISTANT Zoran Arzola MD [facility] CPT-54448 Level 3 New Patient 17:17:19 PRINTER FLOOR COVERING ASSISTANT Zoran Arzola MD [facility] CPT-57196 Level 4 Est. Patient 10:25:01 PRINTER FLOOR COVERING ASSISTANT Capo Poe MD [facility] CPT-27032 Level 3 Est. Patient 10:10:42 CDT Zoran Arzloa MD [facility] CPT-82228 Level 3 Est. Patient 22:30:02 CDT Zoran Arzola MD [facility] CPT-45971 Level 4 Est. Patient 09:54:20 CDT Capo Poe MD [facility] CPT-52111 Level 3 Est. Patient 10:48:30 CDT Capo Poe MD [facility] CPT-01214 Level 3 Est. Patient 11:24:45 CDT Capo Poe MD [facility] CPT-53971 Level 3 Est. Patient 15:23:48 PRINTER FLOOR COVERING ASSISTANT Capo Poe MD [facility] CPT-21327 Level 3 Est. Patient 15:10:03 PRINTER FLOOR COVERING ASSISTANT Capo Poe MD [facility] CPT-06037 Level 3 Est. Patient 16:18:40 CDT Zoran Arzola MD [facility] Procedures Code Procedure Name Date Entry Date Standard Description CPT-42065 Venipuncture Draw Fee 14:30:06 CDT CPT-74639 Venipuncture Draw Fee 10:58:22 CDT CPT-61372 Abd single AP View 08:32:00 CDT CPT-92670 Postop F/U Visit 21:13:08 CDT CPT-60659 Abd single AP View 15:50:24 CDT CPT-15499 Cystoscopy W/rem FB 15:21:28 CDT CPT-95735 Abd single AP View 14:06:45 CDT CPT-23976 Postop F/U Visit 09:48:32 CDT CPT-27937 Abd single AP View 13:58:26 CDT CPT-70412 Hip comp min 2V 10:27:18 PRINTER FLOOR COVERING ASSISTANT CPT-12895 Urine Dip (Floor Use Only) 13:41:01 PRINTER FLOOR COVERING ASSISTANT CPT-20738 Postop F/U Visit 11:17:48 CDT CPT-LR Lesion Removal 11:50:22 CDT CPT-OV Office Visit 11:50:22 CDT CPT-41110 Pneumovax 23 10:55:48 CDT CPT-37398 Administration single or combination vaccine inc oral 10 :55:48 CDT CPT-Cryo Cryotherapy 11:18:11 CDT CPT-OV Office Visit 11:18:11 CDT CPT-62603 LS spine AP and Lat 09:05:22 CDT CPT-56731 Bladder Scan 15:42:00 CDT CPT-54972 Cystoscopy 15:42:00 CDT CPT-OV Office Visit 16:37:19 PRINTER FLOOR COVERING ASSISTANT CPT-55809 Bladder Scan 15:32:10 PRINTER FLOOR COVERING ASSISTANT CPT-75816 Cystoscopy 15:32:10 PRINTER FLOOR COVERING ASSISTANT CPT-70467 Abd single AP View 14:05:59 PRINTER FLOOR COVERING ASSISTANT CPT-20343 Pill cam small bowel 09:48:39 PRINTER FLOOR COVERING ASSISTANT CPT-71972 Urine Dip (Floor Use Only) 17:17:19 PRINTER FLOOR COVERING ASSISTANT CPT-08630 Bladder Scan 17:17:19 PRINTER FLOOR COVERING ASSISTANT CPT-OV Office Visit 11:50:26 PRINTER FLOOR COVERING ASSISTANT CPT-75663 Bladder Scan 10:10:42 CDT CPT-98070 Venipuncture Draw Fee 09:14:04 CDT CPT-86007 Chest 2V Frontal and Lat 10:10:49 CDT CPT-72184 LS spine comp w obliq 11:50:11 CDT CPT-76558 Venipuncture Draw Fee 08:52:57 PRINTER FLOOR COVERING ASSISTANT CPT-06356 Cystoscopy W/rem FB 18:37:28 CDT CPT-93786 Abd single AP View 16:18:40 CDT CPT-53103 Abd compl w upright 17:30:59 CDT
--- NOTE | 2016-11-22 15:54 | Progress Note-Pre Operative ---
Pre-Operative Progress Note H&P Reviewed The H&P was reviewed, patient examined and no changes noted. 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
--- OUTSIDE RECORDS SUMMARY | 2016-11-22 15:54 | XMS REPORT | Clinical Summary ---
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 Inactive Capo oPe MD RENAL CALCULUS ICD-592.9 Inactive Capo Poe [...] 1 tablet by mouth daily CITALOPRAM HYDROBROMIDE 87658693357 Active Felisa Daphney RMMarva Active CLARITIN 5 MG ORAL CHEW 1 tab po q day LORATADINE 65465000910 Active Felisa Daphney RMA Active VIIBRYD STARTER PACK 10 & 20 MG ORAL KIT 1 po qd as directed 2015 VILAZODONE HCL 64374723358 No Longer Active Felisa Daphney RMA Active HYDROXYZINE HCL 25 MG TAB 1 po qHS PRN Insomnia HYDROXYZINE HCL 77520458835 Active Capo Poe MD Active LISINOPRIL 10 MG TABS 1 tablet by mouth daily LISINOPRIL 89561106302 Active Capo Poe MD Active LORTAB 7.5-325 MG ORAL TABS 1 po q 6 hr prn pain HYDROCODONE- ACETAMINOPHEN 47910177295 No Longer Active Capo Poe MD Active FLOMAX 0.4 MG CAPS Take one by mouth daily TAMSULOSIN HCL 02483878198 No Longer Active Capo Poe MD Active TRIAMCINOLONE ACETONIDE 0.1 % CREA Apply to affected areas TID for up to 2 weeks TRIAMCINOLONE ACETONIDE 49351009446 Active Capo Poe MD Active NICOTINE 14 MG/24HR TRANS PT24 Apply/Change q 24hr NICOTINE 19567382999 No Longer Active Capo Poe MD Active TRAMADOL HCL 50 MG TABS 1-2 tablets every 6 hours as needed for pain TRAMADOL HCL 70313920346 No Longer Active Capo Poe MD Active SERTRALINE HCL 100 MG ORAL TABS take 1 tab daily SERTRALINE HCL 58440695648 No Longer Active Capo Poe MD Active LISINOPRIL-HYDROCHLOROTHIAZIDE 10-12.5 MG TABS 0.5 tab by mouth daily LISINOPRIL-HYDROCHLOROTHIAZIDE 86139045471 No Longer Active Capo Poe MD Active OMEPRAZOLE 20 MG CPDR 1 tablet by mouth daily OMEPRAZOLE 08547629351 Active Capo Poe MD Active WELLBUTRIN SR 150 MG ORAL [id number] 1 po BID BUPROPION HCL 68614074023 No Longer Active Capo Poe MD Active MIRALAX PACK 1 po qd PRN Constipation POLYETHYLENE GLYCOL 3350 95656000550 Active Capo Poe MD Active DULERA 100-5 MCG/ACT AERO 2 puffs BID MOMETASONE FURO- FORMOTEROL FUM 04827813566 Active Capo Poe MD Active ZOLOFT 100 MG TABS 1 po daily SERTRALINE HCL 40609841986 No Longer Active Zoran Arzola MD Active FERROUS SULFATE 325 (65 FE) MG TABS 1 tablet by mouth daily FERROUS SULFATE 05669945856 No Longer Active Capo Poe MD Active HYDROCODONE-ACETAMINOPHEN 7.5-300 MG TABS take one every six hours HYDROCODONE-ACETAMINOPHEN 32262874213 No Longer Active Capo Poe MD Active TRIAMCINOLONE ACETONIDE 0.1 % OINT Apply to affected areas TID for up to 2 weeks TRIAMCINOLONE ACETONIDE 95375061323 No Longer Active Joe Vargas RN Active FERROUS SULFATE 325 (65 FE) MG TABS Take one by mouth daily FERROUS SULFATE 11394644069 No Longer Active Capo Poe MD Active TRIAMCINOLONE ACETONIDE 0.1 % OINT Apply to affected areas TID for up to 2 weeks TRIAMCINOLONE ACETONIDE 71379850892 No Longer Active Capo Poe MD Active ADULT ASPIRIN LOW STRENGTH 81 MG TBDP qd ASPIRIN 82562735028 Active Zoran Arzola MD Active ALEVE 220 MG TAB prn NAPROXEN SODIUM 92617982773 Active Capo Poe MD Active MACROBID 100 MG CAP 1 cap by mouth twice daily NITROFURANTOIN MONOHYD MACRO 57231921229 No Longer Active Dona Becker Active AZITHROMYCIN 250 MG TABS 2 po qd x 1 day, then 1 po qd x 4 days AZITHROMYCIN 53567467918 No Longer Active Capo Poe MD Active FISH OIL 500 MG CAPS by mouth twice a day OMEGA-3 FATTY ACIDS 35783240938 Active Capo Poe MD Active FLAXSEED OIL 1000 MG CAPS Take two by mouth daily FLAXSEED (LINSEED) 02080401767 Active Zoran Arzola MD Active RED YEAST RICE 600 MG CAPS Take two by mouth daily RED YEAST RICE EXTRACT 49857230283 Active Zoran Arzola MD Active MULTIVITAMINS CAPS Take one by mouth daily MULTIPLE VITAMIN 05868193391 Active Zoran Arzola MD Active ICAPS MV TABS 2 po daily MULTIPLE VITAMINS-MINERALS 63487664963 Active Jam Arnold DO Active MACROBID 100 MG CAP 1 cap by mouth twice daily MACROBID 100 MG CAP 0183059 NITROFURANTOIN MONOHYD MACRO Inactive FERROUS SULFATE 325 (65 FE) MG TABS Take one by mouth daily FERROUS SULFATE 325 (65 FE) MG TABS 516316 FERROUS SULFATE Inactive HYDROCODONE-ACETAMINOPHEN 7.5-300 MG TABS take one every six hours HYDROCODONE-ACETAMINOPHEN 7.5-300 MG TABS 487083 HYDROCODONE- ACETAMINOPHEN Inactive FERROUS SULFATE 325 (65 FE) MG TABS 1 tablet by mouth daily FERROUS SULFATE 325 (65 FE) MG TABS 326498 FERROUS SULFATE Inactive ZOLOFT 100 MG TABS 1 po daily ZOLOFT 100 MG TABS 084668 SERTRALINE HCL Inactive SERTRALINE HCL 100 MG ORAL TABS take 1 tab daily SERTRALINE HCL 100 MG ORAL TABS 826286 SERTRALINE HCL Inactive TRAMADOL HCL 50 MG TABS 1-2 tablets every 6 hours as needed for pain TRAMADOL HCL 50 MG TABS 455182 TRAMADOL HCL Inactive NICOTINE 14 MG/24HR TRANS PT24 Apply/Change q 24hr NICOTINE 14 MG/24HR TRANS PT24 939199 NICOTINE Inactive FLOMAX 0.4 MG CAPS Take one by mouth daily FLOMAX 0.4 MG CAPS 960815 TAMSULOSIN HCL Inactive LORTAB 7.5-325 MG ORAL TABS 1 po q 6 hr prn pain LORTAB 7.5- 325 MG ORAL TABS 413978 HYDROCODONE-ACETAMINOPHEN Inactive VIIBRYD STARTER PACK 10 & 20 MG ORAL KIT 1 po qd as directed 2015 VIIBRYD STARTER PACK 10 & 20 MG ORAL KIT VILAZODONE HCL Inactive AZITHROMYCIN 250 MG TABS 2 po qd x 1 day, then 1 po qd x 4 days AZITHROMYCIN 250 MG TABS 3537886 AZITHROMYCIN Inactive TRIAMCINOLONE ACETONIDE 0.1 % OINT Apply to affected areas TID for up to 2 weeks TRIAMCINOLONE ACETONIDE 0.1 % OINT 9433808 TRIAMCINOLONE ACETONIDE Inactive TRIAMCINOLONE ACETONIDE 0.1 % OINT Apply to affected areas TID for up to 2 weeks TRIAMCINOLONE ACETONIDE 0.1 % OINT 8933333 TRIAMCINOLONE ACETONIDE Inactive Advance Directives Directive Description [...] Panel - Chemistry sodium, serum 139 mmol/L 327-459 3818/07/30 potassium, serum 4.7 mmol/L 3.5-5.2 chloride, serum [...] mg/g mg/g{creat} 0-29 sodium, serum 138 mmol/L 626-603 9698/03/18 carbon dioxide, venous blood 25.5 mmol/L 21.0-32.0 potassium, serum 4.6 mmol/L 3.5-5.2 chloride, serum 101 mmol/L 98-107 blood glucose 129 mg/dL 65-110 urea nitrogen, blood 20 mg/dL 7-18 creatinine, serum 1.87 mg/dL 0.55-1.30 alanine aminotransferase (SGPT), serum 26 U/L 12-78 aspartate aminotransferase (SGOT), serum 20 U/L 15-37 calcium, serum 8.8 mg/dL 8.5-10.1 bilirubin, serum, total 0.40 mg/dL 0.00-1.00 cholesterol, serum 251 mg/dL 971-383 8803/03/18 triglyceride, serum, fasting 135 mg/dL 30-200 HDL [...] 0.00-4.00 Encounters Code Encounter Date Provider Facility CPT-57184 Level 4 Est. Patient 13:44:30 CDT Capo Poe MD [facility] CPT-52430 Level 3 Est. Patient 14:59:32 TANK SETTER HELPER Capo Poe MD [facility] CPT-80667 Level 4 Est. Patient 10:46:15 TANK SETTER HELPER Capo Poe MD [facility] CPT-08511 Level 3 Est. Patient 11:00:53 CDT Capo Poe MD [facility] CPT-70544 Level 3 Est. Patient 09:39:35 CDT Capo Poe MD [facility] CPT-42973 Level 3 Est. Patient 09:27:01 CDT Capo Poe MD [facility] CPT-30110 Level 3 Est. Patient 18:37:08 CDT Zoran Arzola MD [facility] CPT-66735 Level 3 Est. Patient 15:00:28 CDT Capo Poe MD [facility] CPT-87169 Level 3 Est. Patient 08:20:19 CDT Zoran Arzola MD [facility] CPT-03180 Level 3 Est. Patient 09:22:21 CDT Capo Poe MD [facility] CPT-66197 Level 4 Est. Patient 10:21:30 TANK SETTER HELPER Capo Poe MD [facility] CPT-08742 Level 3 Est. Patient 17:08:51 TANK SETTER HELPER Zoran Arzola MD [facility] CPT-98589 Level 4 Est. Patient 09:44:42 CDT Capo Poe MD [facility] CPT-83335 Level 4 Est. Patient 10:39:29 CDT Capo Poe MD [facility] CPT-61106 Level 3 Est. Patient 17:45:23 CDT Zoran Arzola MD [facility] CPT-75747 Level 4 Est. Patient 08:50:44 CDT Capo Poe MD [facility] CPT-40417 Level 3 Est. Patient 10:39:51 TANK SETTER HELPER Capo Poe MD [facility] CPT-46857 Level 4 Est. Patient 09:44:24 TANK SETTER HELPER Capo Poe MD [facility] CPT-17624 Level 3 Est. Patient 14:48:42 TANK SETTER HELPER Zoran Arzola MD [facility] CPT-32279 Level 4 Est. Patient 10:24:02 CDT Capo Poe MD [facility] CPT-56246 Level 3 Est. Patient 15:42:00 CDT Maya WRIGHTP [facility] CPT-12878 Level 4 Est. Patient 13:34:15 CDT Capo Poe MD [facility] CPT-05413 Level 3 Est. Patient 15:32:10 TANK SETTER HELPER Zoran Arzola MD [facility] CPT-89356 Level 3 New Patient 17:17:19 TANK SETTER HELPER Zoran Arzola MD [facility] CPT-14712 Level 4 Est. Patient 10:25:01 TANK SETTER HELPER Capo Poe MD [facility] CPT-70249 Level 3 Est. Patient 10:10:42 CDT Zoran Arzola MD [facility] CPT-86203 Level 3 Est. Patient 22:30:02 CDT Zoran Arzola MD [facility] CPT-47298 Level 4 Est. Patient 09:54:20 CDT Capo Poe MD [facility] CPT-90098 Level 3 Est. Patient 10:48:30 CDT Capo Poe MD [facility] CPT-68087 Level 3 Est. Patient 11:24:45 CDT Capo Poe MD [facility] CPT-52641 Level 3 Est. Patient 15:23:48 TANK SETTER HELPER Capo Poe MD [facility] CPT-41618 Level 3 Est. Patient 15:10:03 TANK SETTER HELPER Capo Poe MD [facility] CPT-08936 Level 3 Est. Patient 16:18:40 CDT Zoran Arzola MD [facility] Procedures Code Procedure Name Date Entry Date Standard Description CPT-89487 Venipuncture Draw Fee 09:46:29 CDT CPT-29201 Venipuncture Draw Fee 14:30:06 CDT CPT-66541 Venipuncture Draw Fee 10:58:22 CDT CPT-25833 Abd single AP View 08:32:00 CDT CPT-11159 Postop F/U Visit 21:13:08 CDT CPT-36986 Abd single AP View 15:50:24 CDT CPT-88291 Cystoscopy W/rem FB 15:21:28 CDT CPT-22306 Abd single AP View 14:06:45 CDT CPT-79844 Postop F/U Visit 09:48:32 CDT CPT-02769 Abd single AP View 13:58:26 CDT CPT-07728 Hip comp min 2V 10:27:18 TANK SETTER HELPER CPT-33665 Urine Dip (Floor Use Only) 13:41:01 TANK SETTER HELPER CPT-64369 Postop F/U Visit 11:17:48 CDT CPT-LR Lesion Removal 11:50:22 CDT CPT-OV Office Visit 11:50:22 CDT CPT-26108 Pneumovax 23 10:55:48 CDT CPT-62494 Administration single or combination vaccine inc oral 10 :55:48 CDT CPT-Cryo Cryotherapy 11:18:11 CDT CPT-OV Office Visit 11:18:11 CDT CPT-46723 LS spine AP and Lat 09:05:22 CDT CPT-07158 Bladder Scan 15:42:00 CDT CPT-93397 Cystoscopy 15:42:00 CDT CPT-OV Office Visit 16:37:19 TANK SETTER HELPER CPT-45300 Bladder Scan 15:32:10 TANK SETTER HELPER CPT-92894 Cystoscopy 15:32:10 TANK SETTER HELPER CPT-99781 Abd single AP View 14:05:59 TANK SETTER HELPER CPT-74484 Pill cam small bowel 09:48:39 TANK SETTER HELPER CPT-67721 Urine Dip (Floor Use Only) 17:17:19 TANK SETTER HELPER CPT-88548 Bladder Scan 17:17:19 TANK SETTER HELPER CPT-OV Office Visit 11:50:26 TANK SETTER HELPER CPT-60505 Bladder Scan 10:10:42 CDT CPT-95895 Venipuncture Draw Fee 09:14:04 CDT CPT-14983 Chest 2V Frontal and Lat 10:10:49 CDT CPT-37461 LS spine comp w obliq 11:50:11 CDT CPT-02549 Venipuncture Draw Fee 08:52:57 TANK SETTER HELPER CPT-60434 Cystoscopy W/rem FB 18:37:28 CDT CPT-20162 Abd single AP View 16:18:40 CDT CPT-36977 Abd compl w upright 17:30:59 CDT
--- OUTSIDE RECORDS SUMMARY | 2016-11-22 15:55 | XMS REPORT | Clinical Summary ---
Author Author Admin, QIE Organization [employer] Address Unknown Phone Unavailable Allergies, Adverse Reactions, [...] 1 tablet by mouth daily CITALOPRAM HYDROBROMIDE [id number] Active Felisamario TEIXEIRA Active CLARITIN 5 MG ORAL CHEW 1 tab po q day LORATADINE 00914086046 Active Felisa Daphney RMA Active VIIBRYD STARTER PACK 10 & 20 MG ORAL KIT 1 po qd as directed 2015 VILAZODONE HCL 68696245516 No Longer Active Felisa TEIXEIRA Active HYDROXYZINE HCL 25 MG TAB 1 po qHS PRN Insomnia HYDROXYZINE HCL 27382674357 Active Capo Poe MD Active LISINOPRIL 10 MG TABS 1 tablet by mouth daily LISINOPRIL 60994493300 Active Capo oPe MD Active LORTAB 7.5-325 MG ORAL TABS 1 po q 6 hr prn pain HYDROCODONE- ACETAMINOPHEN 86130657294 No Longer Active Capo Poe MD Active FLOMAX 0.4 MG CAPS Take one by mouth daily TAMSULOSIN HCL 98936978533 No Longer Active Capo Poe MD Active TRIAMCINOLONE ACETONIDE 0.1 % CREA Apply to affected areas TID for up to 2 weeks TRIAMCINOLONE ACETONIDE 44507303372 Active Capo Poe MD Active NICOTINE 14 MG/24HR TRANS PT24 Apply/Change q 24hr NICOTINE 21807367855 No Longer Active Capo Poe MD Active TRAMADOL HCL 50 MG TABS 1-2 tablets every 6 hours as needed for pain TRAMADOL HCL 69236061041 No Longer Active Capo Poe MD Active SERTRALINE HCL 100 MG ORAL TABS take 1 tab daily SERTRALINE HCL 75197664143 No Longer Active Capo Poe MD Active LISINOPRIL-HYDROCHLOROTHIAZIDE 10-12.5 MG TABS 0.5 tab by mouth daily LISINOPRIL-HYDROCHLOROTHIAZIDE 84050074230 No Longer Active Capo Poe MD Active OMEPRAZOLE 20 MG CPDR 1 tablet by mouth daily OMEPRAZOLE 93860911751 Active Capo Poe MD Active WELLBUTRIN SR 150 MG ORAL MH30L-OLS 1 po BID BUPROPION HCL 65043369608 No Longer Active Capo Poe MD Active MIRALAX PACK 1 po qd PRN Constipation POLYETHYLENE GLYCOL 3350 47595098336 Active Capo Poe MD Active DULERA 100-5 MCG/ACT AERO 2 puffs BID MOMETASONE FURO- FORMOTEROL FUM 62645046459 Active Capo Poe MD Active ZOLOFT 100 MG TABS 1 po daily SERTRALINE HCL 16896240366 No Longer Active Zoran Arzola MD Active FERROUS SULFATE 325 (65 FE) MG TABS 1 tablet by mouth daily FERROUS SULFATE 89269939040 No Longer Active Capo Poe MD Active HYDROCODONE-ACETAMINOPHEN 7.5-300 MG TABS take one every six hours HYDROCODONE-ACETAMINOPHEN 38186601421 No Longer Active Capo Poe MD Active TRIAMCINOLONE ACETONIDE 0.1 % OINT Apply to affected areas TID for up to 2 weeks TRIAMCINOLONE ACETONIDE 73222379922 No Longer Active Joe Vargas RN Active FERROUS SULFATE 325 (65 FE) MG TABS Take one by mouth daily FERROUS SULFATE 02718666793 No Longer Active Capo Poe MD Active TRIAMCINOLONE ACETONIDE 0.1 % OINT Apply to affected areas TID for up to 2 weeks TRIAMCINOLONE ACETONIDE 76449183537 No Longer Active Capo Poe MD Active ADULT ASPIRIN LOW STRENGTH 81 MG TBDP qd ASPIRIN 32741815293 Active Zoran Arzola MD Active ALEVE 220 MG TAB prn NAPROXEN SODIUM 58125257832 Active Capo Poe MD Active MACROBID 100 MG CAP 1 cap by mouth twice daily NITROFURANTOIN MONOHYD MACRO 56910683227 No Longer Active Dona Becker Active AZITHROMYCIN 250 MG TABS 2 po qd x 1 day, then 1 po qd x 4 days AZITHROMYCIN 41627744813 No Longer Active Capo Poe MD Active FISH OIL 500 MG CAPS by mouth twice a day OMEGA-3 FATTY ACIDS 97404340449 Active Capo Poe MD Active FLAXSEED OIL 1000 MG CAPS Take two by mouth daily FLAXSEED (LINSEED) 56312061358 Active Zoran Arzola MD Active RED YEAST RICE 600 MG CAPS Take two by mouth daily RED YEAST RICE EXTRACT 80314941898 Active Zoran Arzola MD Active MULTIVITAMINS CAPS Take one by mouth daily MULTIPLE VITAMIN 69806351024 Elza Arzola MD Active ICAPS MV TABS 2 po daily MULTIPLE VITAMINS-MINERALS 44421238682 Active Jam Arnold DO Active MACROBID 100 MG CAP 1 cap by mouth twice daily MACROBID 100 MG CAP 1811952 NITROFURANTOIN MONOHYD MACRO Inactive FERROUS SULFATE 325 (65 FE) MG TABS Take one by mouth daily FERROUS SULFATE 325 (65 FE) MG TABS 427839 FERROUS SULFATE Inactive HYDROCODONE-ACETAMINOPHEN 7.5-300 MG TABS take one every six hours HYDROCODONE-ACETAMINOPHEN 7.5-300 MG TABS 952572 HYDROCODONE- ACETAMINOPHEN Inactive FERROUS SULFATE 325 (65 FE) MG TABS 1 tablet by mouth daily FERROUS SULFATE 325 (65 FE) MG TABS 954845 FERROUS SULFATE Inactive ZOLOFT 100 MG TABS 1 po daily ZOLOFT 100 MG TABS 814418 SERTRALINE HCL Inactive SERTRALINE HCL 100 MG ORAL TABS take 1 tab daily SERTRALINE HCL 100 MG ORAL TABS 852957 SERTRALINE HCL Inactive TRAMADOL HCL 50 MG TABS 1-2 tablets every 6 hours as needed for pain TRAMADOL HCL 50 MG TABS 316618 TRAMADOL HCL Inactive NICOTINE 14 MG/24HR TRANS PT24 Apply/Change q 24hr NICOTINE 14 MG/24HR TRANS PT24 646073 NICOTINE Inactive FLOMAX 0.4 MG CAPS Take one by mouth daily FLOMAX 0.4 MG CAPS 949485 TAMSULOSIN HCL Inactive LORTAB 7.5-325 MG ORAL TABS 1 po q 6 hr prn pain LORTAB 7.5- 325 MG ORAL TABS 557083 HYDROCODONE-ACETAMINOPHEN Inactive VIIBRYD STARTER PACK 10 & 20 MG ORAL KIT 1 po qd as directed 2015 VIIBRYD STARTER PACK 10 & 20 MG ORAL KIT VILAZODONE HCL Inactive AZITHROMYCIN 250 MG TABS 2 po qd x 1 day, then 1 po qd x 4 days AZITHROMYCIN 250 MG TABS 2526980 AZITHROMYCIN Inactive TRIAMCINOLONE ACETONIDE 0.1 % OINT Apply to affected areas TID for up to 2 weeks TRIAMCINOLONE ACETONIDE 0.1 % OINT 8323473 TRIAMCINOLONE ACETONIDE Inactive TRIAMCINOLONE ACETONIDE 0.1 % OINT Apply to affected areas TID for up to 2 weeks TRIAMCINOLONE ACETONIDE 0.1 % OINT 4535852 TRIAMCINOLONE ACETONIDE Inactive Advance Directives Directive Description [...] mg/g mg/g{creat} 0-29 sodium, serum 138 mmol/L 597-584 9116/03/18 carbon dioxide, venous blood 25.5 mmol/L 21.0-32.0 potassium, serum 4.6 mmol/L 3.5-5.2 chloride, serum 101 mmol/L 98-107 blood glucose 129 mg/dL 65-110 urea nitrogen, blood 20 mg/dL 7-18 creatinine, serum 1.87 mg/dL 0.55-1.30 alanine aminotransferase (SGPT), serum 26 U/L 12-78 aspartate aminotransferase (SGOT), serum 20 U/L 15-37 calcium, serum 8.8 mg/dL 8.5-10.1 bilirubin, serum, total 0.40 mg/dL 0.00-1.00 cholesterol, serum 251 mg/dL 934-166 8335/03/18 triglyceride, serum, fasting 135 mg/dL 30-200 HDL [...] 0.00-4.00 Encounters Code Encounter Date Provider Facility CPT-69563 Level 4 Est. Patient 08:53:08 CDT Capo Poe MD [facility] CPT-20180 Level 4 Est. Patient 10:22:57 CDT Capo Poe MD [facility] CPT-58248 Level 4 Est. Patient 13:44:30 CDT Capo Poe MD [facility] CPT-96361 Level 3 Est. Patient 14:59:32 INSURANCE COMPLIANCE ANALYST Capo Poe MD [facility] CPT-09241 Level 4 Est. Patient 10:46:15 INSURANCE COMPLIANCE ANALYST Capo Poe MD [facility] CPT-36931 Level 3 Est. Patient 11:00:53 CDT Capo Poe MD [facility] CPT-85700 Level 3 Est. Patient 09:39:35 CDT Capo Poe MD [facility] CPT-11908 Level 3 Est. Patient 09:27:01 CDT Capo Poe MD [facility] CPT-93679 Level 3 Est. Patient 18:37:08 CDT Zoran Arzola MD [facility] CPT-07445 Level 3 Est. Patient 15:00:28 CDT Capo Poe MD [facility] CPT-11088 Level 3 Est. Patient 08:20:19 CDT Zoran Arzola MD [facility] CPT-58720 Level 3 Est. Patient 09:22:21 CDT Capo Poe MD [facility] CPT-31578 Level 4 Est. Patient 10:21:30 INSURANCE COMPLIANCE ANALYST Capo Poe MD [facility] CPT-89014 Level 3 Est. Patient 17:08:51 INSURANCE COMPLIANCE ANALYST Zoran Arzola MD [facility] CPT-63919 Level 4 Est. Patient 09:44:42 CDT Capo Poe MD [facility] CPT-36112 Level 4 Est. Patient 10:39:29 CDT Capo Poe MD [facility] CPT-04777 Level 3 Est. Patient 17:45:23 CDT Zoran Arzola MD [facility] CPT-91547 Level 4 Est. Patient 08:50:44 CDT Capo Poe MD [facility] CPT-66193 Level 3 Est. Patient 10:39:51 INSURANCE COMPLIANCE ANALYST Capo Poe MD [facility] CPT-41270 Level 4 Est. Patient 09:44:24 INSURANCE COMPLIANCE ANALYST Capo Poe MD [facility] CPT-31904 Level 3 Est. Patient 14:48:42 INSURANCE COMPLIANCE ANALYST Zoran Arzola MD [facility] CPT-23396 Level 4 Est. Patient 10:24:02 CDT Capo Poe MD [facility] CPT-21752 Level 3 Est. Patient 15:42:00 CDT Maya WRIGHTP [facility] CPT-90256 Level 4 Est. Patient 13:34:15 CDT Capo Poe MD [facility] CPT-23891 Level 3 Est. Patient 15:32:10 INSURANCE COMPLIANCE ANALYST Zoran Arzola MD [facility] CPT-54803 Level 3 New Patient 17:17:19 INSURANCE COMPLIANCE ANALYST Zoran Arzola MD [facility] CPT-08496 Level 4 Est. Patient 10:25:01 INSURANCE COMPLIANCE ANALYST Capo Poe MD [facility] CPT-20129 Level 3 Est. Patient 10:10:42 CDT Zoran Arzola MD [facility] CPT-65089 Level 3 Est. Patient 22:30:02 CDT Zoran Arzola MD [facility] CPT-65321 Level 4 Est. Patient 09:54:20 CDT Capo Poe MD [facility] CPT-01835 Level 3 Est. Patient 10:48:30 CDT Capo Poe MD [facility] CPT-75800 Level 3 Est. Patient 11:24:45 CDT Capo Poe MD [facility] CPT-12962 Level 3 Est. Patient 15:23:48 INSURANCE COMPLIANCE ANALYST Capo Poe MD [facility] CPT-80019 Level 3 Est. Patient 15:10:03 INSURANCE COMPLIANCE ANALYST Capo Poe MD [facility] CPT-81264 Level 3 Est. Patient 16:18:40 CDT Zoran Arzola MD [facility] Procedures Code Procedure Name Date Entry Date Standard Description CPT-36902 Venipuncture Draw Fee 09:32:34 CDT CPT-G0438 Initial Annual Wellness Exam 10:24:35 CDT CPT-18797 Venipuncture Draw Fee 09:46:29 CDT CPT-00470 Venipuncture Draw Fee 14:30:06 CDT CPT-60613 Venipuncture Draw Fee 10:58:22 CDT CPT-31722 Abd single AP View 08:32:00 CDT CPT-68409 Postop F/U Visit 21:13:08 CDT CPT-92304 Abd single AP View 15:50:24 CDT CPT-44307 Cystoscopy W/rem FB 15:21:28 CDT CPT-20886 Abd single AP View 14:06:45 CDT CPT-23009 Postop F/U Visit 09:48:32 CDT CPT-92869 Abd single AP View 13:58:26 CDT CPT-12229 Hip comp min 2V 10:27:18 INSURANCE COMPLIANCE ANALYST CPT-91146 Urine Dip (Floor Use Only) 13:41:01 INSURANCE COMPLIANCE ANALYST CPT-21471 Postop F/U Visit 11:17:48 CDT CPT-LR Lesion Removal 11:50:22 CDT CPT-OV Office Visit 11:50:22 CDT CPT-29534 Pneumovax 23 10:55:48 CDT CPT-76815 Administration single or combination vaccine inc oral 10 :55:48 CDT CPT-Cryo Cryotherapy 11:18:11 CDT CPT-OV Office Visit 11:18:11 CDT CPT-76618 LS spine AP and Lat 09:05:22 CDT CPT-59843 Bladder Scan 15:42:00 CDT CPT-22349 Cystoscopy 15:42:00 CDT CPT-OV Office Visit 16:37:19 INSURANCE COMPLIANCE ANALYST CPT-45046 Bladder Scan 15:32:10 INSURANCE COMPLIANCE ANALYST CPT-59546 Cystoscopy 15:32:10 INSURANCE COMPLIANCE ANALYST CPT-55641 Abd single AP View 14:05:59 INSURANCE COMPLIANCE ANALYST CPT-17820 Pill cam small bowel 09:48:39 INSURANCE COMPLIANCE ANALYST CPT-18249 Urine Dip (Floor Use Only) 17:17:19 INSURANCE COMPLIANCE ANALYST CPT-20718 Bladder Scan 17:17:19 INSURANCE COMPLIANCE ANALYST CPT-OV Office Visit 11:50:26 INSURANCE COMPLIANCE ANALYST CPT-49710 Bladder Scan 10:10:42 CDT CPT-16938 Venipuncture Draw Fee 09:14:04 CDT CPT-86090 Chest 2V Frontal and Lat 10:10:49 CDT CPT-17224 LS spine comp w obliq 11:50:11 CDT CPT-36134 Venipuncture Draw Fee 08:52:57 INSURANCE COMPLIANCE ANALYST CPT-48503 Cystoscopy W/rem FB 18:37:28 CDT CPT-25082 Abd single AP View 16:18:40 CDT CPT-59570 Abd compl w upright 17:30:59 CDT
[2016-11-22] MEDS ORDERED: NS (IVPB) 50 ML ONE (15:56)
[2016-11-22] MEDS ORDERED: ceFAZolin 1,000 MG (ANCEF) VIAL ONE (15:56)
--- OUTSIDE RECORDS SUMMARY | 2016-11-22 15:56 | XMS REPORT | Clinical Summary ---
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 Simin [...] MG TABS 1 daily for infection LEVOFLOXACIN 05775441612 Active Leanna Baker APRN Active AZITHROMYCIN 250 MG ORAL TABS 2 po qd x 1, then 1 po qd x 4 AZITHROMYCIN 55730368873 Active Capo Poe MD Active PREDNISONE 20 MG ORAL TABS 2 po qd x 5 days PREDNISONE 34863021005 No Longer Active Capo Poe MD Active CARAFATE 1 GM ORAL TABS 1 tid SUCRALFATE 19508725253 Active Capo Poe MD Active RANITIDINE HCL 150 MG ORAL TABS 1 bid RANITIDINE HCL 28163647550 Active Capo Poe MD Active MULTIVITAMINS CAPS Take one by mouth daily MULTIPLE VITAMIN 40649270922 No Longer Active Capo Poe MD Active LISINOPRIL 10 MG TABS 1 tablet by mouth daily LISINOPRIL 78221020284 No Longer Active Capo Poe MD Active EQL IRON SUPPLEMENT THERAPY 325 MG ORAL TABS 1 tab po twice daily FERROUS SULFATE 53990706693 Active Jasmin Arboledalas RMA Active D ORAL TABS 2000 iu weekly D ORAL TABS Active Capo Poe MD Active CITALOPRAM HYDROBROMIDE 20 MG TABS 1 tablet by mouth daily CITALOPRAM HYDROBROMIDE 82748854532 Active Capo Poe MD Active CLARITIN 5 MG ORAL CHEW 1 tab po q day LORATADINE 50518863535 Active Felisa Daphney RMA Active VIIBRYD STARTER PACK 10 & 20 MG ORAL KIT 1 po qd as directed 2015 VILAZODONE HCL 17813164771 No Longer Active Felisa Daphney RMA Active HYDROXYZINE HCL 25 MG TAB 1 po qHS PRN Insomnia HYDROXYZINE HCL 77929384262 Active Capo Poe MD Active LORTAB 7.5-325 MG ORAL TABS 1 po q 6 hr prn pain HYDROCODONE- ACETAMINOPHEN 02751324774 No Longer Active Capo Poe MD Active FLOMAX 0.4 MG CAPS Take one by mouth daily TAMSULOSIN HCL 40611602231 No Longer Active Capo Poe MD Active TRIAMCINOLONE ACETONIDE 0.1 % CREA Apply to affected areas TID for up to 2 weeks TRIAMCINOLONE ACETONIDE 91013645049 Active Capo Poe MD Active NICOTINE 14 MG/24HR TRANS PT24 Apply/Change q 24hr NICOTINE 15490805319 No Longer Active Capo Poe MD Active TRAMADOL HCL 50 MG TABS 1-2 tablets every 6 hours as needed for pain TRAMADOL HCL 87855251441 No Longer Active Capo Poe MD Active SERTRALINE HCL 100 MG ORAL TABS take 1 tab daily SERTRALINE HCL 59310140004 No Longer Active Capo Poe MD Active LISINOPRIL-HYDROCHLOROTHIAZIDE 10-12.5 MG TABS 0.5 tab by mouth daily LISINOPRIL-HYDROCHLOROTHIAZIDE 54280762274 No Longer Active Capo Poe MD Active OMEPRAZOLE 20 MG CPDR 1 tablet by mouth daily OMEPRAZOLE 50597263901 Active Capo Poe MD Active WELLBUTRIN SR 150 MG ORAL XN68G-AFL 1 po BID BUPROPION HCL 32297636828 No Longer Active Capo Poe MD Active MIRALAX PACK 1 po qd PRN Constipation POLYETHYLENE GLYCOL 3350 68138176556 Active Capo Poe MD Active DULERA 100-5 MCG/ACT AERO 2 puffs BID MOMETASONE FURO- FORMOTEROL FUM 31045457852 Active Capo Poe MD Active ZOLOFT 100 MG TABS 1 po daily SERTRALINE HCL 49126872040 No Longer Active Zoran Arzola MD Active FERROUS SULFATE 325 (65 FE) MG TABS 1 tablet by mouth daily FERROUS SULFATE 33509400375 No Longer Active Capo Poe MD Active HYDROCODONE-ACETAMINOPHEN 7.5-300 MG TABS take one every six hours HYDROCODONE-ACETAMINOPHEN 67713439109 No Longer Active Capo Poe MD Active TRIAMCINOLONE ACETONIDE 0.1 % OINT Apply to affected areas TID for up to 2 weeks TRIAMCINOLONE ACETONIDE 05542386083 No Longer Active Joe Vargas RN Active FERROUS SULFATE 325 (65 FE) MG TABS Take one by mouth daily FERROUS SULFATE 11335844787 No Longer Active Capo Poe MD Active TRIAMCINOLONE ACETONIDE 0.1 % OINT Apply to affected areas TID for up to 2 weeks TRIAMCINOLONE ACETONIDE 80375127448 No Longer Active Capo Poe MD Active ADULT ASPIRIN LOW STRENGTH 81 MG TBDP qd ASPIRIN 01046782433 Active Zoran Arzola MD Active ALEVE 220 MG TAB prn NAPROXEN SODIUM 29323120839 Active Capo Poe MD Active MACROBID 100 MG CAP 1 cap by mouth twice daily NITROFURANTOIN MONOHYD MACRO 23126213317 No Longer Active Dona Becker Active AZITHROMYCIN 250 MG TABS 2 po qd x 1 day, then 1 po qd x 4 days AZITHROMYCIN 24635532875 No Longer Active Capo Poe MD Active FISH OIL 500 MG CAPS by mouth twice a day OMEGA-3 FATTY ACIDS 25816193331 Active Capo Poe MD Active FLAXSEED OIL 1000 MG CAPS Take two by mouth daily FLAXSEED (LINSEED) 98197733115 Active Zoran Arzola MD Active RED YEAST RICE 600 MG CAPS Take two by mouth daily RED YEAST RICE EXTRACT 32005948890 Active Zoran Arzola MD Active ICAPS MV TABS 2 po daily MULTIPLE VITAMINS-MINERALS 55300178849 Active Jam Arnold DO Active MACROBID 100 MG CAP 1 cap by mouth twice daily MACROBID 100 MG CAP 5134925 NITROFURANTOIN MONOHYD MACRO Inactive FERROUS SULFATE 325 (65 FE) MG TABS Take one by mouth daily FERROUS SULFATE 325 (65 FE) MG TABS 685492 FERROUS SULFATE Inactive HYDROCODONE-ACETAMINOPHEN 7.5-300 MG TABS take one every six hours HYDROCODONE-ACETAMINOPHEN 7.5-300 MG TABS 976931 HYDROCODONE- ACETAMINOPHEN Inactive FERROUS SULFATE 325 (65 FE) MG TABS 1 tablet by mouth daily FERROUS SULFATE 325 (65 FE) MG TABS 473039 FERROUS SULFATE Inactive ZOLOFT 100 MG TABS 1 po daily ZOLOFT 100 MG TABS 582977 SERTRALINE HCL Inactive SERTRALINE HCL 100 MG ORAL TABS take 1 tab daily SERTRALINE HCL 100 MG ORAL TABS 322258 SERTRALINE HCL Inactive TRAMADOL HCL 50 MG TABS 1-2 tablets every 6 hours as needed for pain TRAMADOL HCL 50 MG TABS 949268 TRAMADOL HCL Inactive NICOTINE 14 MG/24HR TRANS PT24 Apply/Change q 24hr NICOTINE 14 MG/24HR TRANS PT24 005153 NICOTINE Inactive FLOMAX 0.4 MG CAPS Take one by mouth daily FLOMAX 0.4 MG CAPS 567052 TAMSULOSIN HCL Inactive LORTAB 7.5-325 MG ORAL TABS 1 po q 6 hr prn pain LORTAB 7.5- 325 MG ORAL TABS 096161 HYDROCODONE-ACETAMINOPHEN Inactive VIIBRYD STARTER PACK 10 & 20 MG ORAL KIT 1 po qd as directed 2015 VIIBRYD STARTER PACK 10 & 20 MG ORAL KIT VILAZODONE HCL Inactive LISINOPRIL 10 MG TABS 1 tablet by mouth daily LISINOPRIL 10 MG TABS 722722 LISINOPRIL Inactive MULTIVITAMINS CAPS Take one by mouth daily MULTIVITAMINS CAPS MULTIPLE VITAMIN Inactive AZITHROMYCIN 250 MG TABS 2 po qd x 1 day, then 1 po qd x 4 days AZITHROMYCIN 250 MG TABS 2908900 AZITHROMYCIN Inactive TRIAMCINOLONE ACETONIDE 0.1 % OINT Apply to affected areas TID for up to 2 weeks TRIAMCINOLONE ACETONIDE 0.1 % OINT 8928601 TRIAMCINOLONE ACETONIDE Inactive TRIAMCINOLONE ACETONIDE 0.1 % OINT Apply to affected areas TID for up to 2 weeks TRIAMCINOLONE ACETONIDE 0.1 % OINT 2967291 TRIAMCINOLONE ACETONIDE Inactive PREDNISONE 20 MG ORAL TABS 2 po qd x 5 days PREDNISONE 20 MG ORAL TABS 832740 PREDNISONE Inactive Advance Directives Directive Description Start [...] Panel - Chemistry sodium, serum 137 mmol/L 086-507 7175/07/26 carbon dioxide, venous blood 27.3 mmol/L 21.0-32.0 [...] ... - Chemistry sodium, serum 141 mmol/L 782-277 2901/01/27 carbon dioxide, venous blood 29.7 mmol/L 21.0-32.0 [...] % 11.0-15.0 platelet count 214 THOUSAND/UL 10*3/mm3 463-727 1789/03/31 mean platelet volume 8.4 fL 7.5-12.5 Encounters Code Encounter Date Provider Facility CPT-52294 Level 3 Est. Patient 11:31:49 CDT Leanna Baker APRN [facility] CPT-07788 Level 3 Est. Patient 09:44:06 CDT Capo Poe MD [facility] CPT-64238 Level 4 Est. Patient 09:26:11 CAR RECORD CLERK Capo Poe MD [facility] CPT-87102 Level 4 Est. Patient 08:53:08 CDT Capo Poe MD [facility] CPT-41039 Level 4 Est. Patient 10:22:57 CDT Capo Poe MD [facility] CPT-51693 Level 4 Est. Patient 13:44:30 CDT Capo Poe MD [facility] CPT-28821 Level 3 Est. Patient 14:59:32 CAR RECORD CLERK Capo Poe MD [facility] CPT-29068 Level 4 Est. Patient 10:46:15 CAR RECORD CLERK Capo Poe MD [facility] CPT-53516 Level 3 Est. Patient 11:00:53 CDT Capo Poe MD [facility] CPT-65338 Level 3 Est. Patient 09:39:35 CDT Capo Poe MD [facility] CPT-28087 Level 3 Est. Patient 09:27:01 CDT Capo Poe MD [facility] CPT-91536 Level 3 Est. Patient 18:37:08 CDT Zoran Arzola MD [facility] CPT-34648 Level 3 Est. Patient 15:00:28 CDT Capo Poe MD [facility] CPT-60963 Level 3 Est. Patient 08:20:19 CDT Zoran Arzola MD [facility] CPT-24147 Level 3 Est. Patient 09:22:21 CDT Capo Poe MD [facility] CPT-18659 Level 4 Est. Patient 10:21:30 CAR RECORD CLERK Capo Poe MD [facility] CPT-11422 Level 3 Est. Patient 17:08:51 CAR RECORD CLERK Zoran Arzola MD [facility] CPT-71074 Level 4 Est. Patient 09:44:42 CDT Capo Poe MD [facility] CPT-69556 Level 4 Est. Patient 10:39:29 CDT Capo Poe MD [facility] CPT-41725 Level 3 Est. Patient 17:45:23 CDT Zoran Arzola MD [facility] CPT-20467 Level 4 Est. Patient 08:50:44 CDT Capo Poe MD [facility] CPT-99617 Level 3 Est. Patient 10:39:51 CAR RECORD CLERK Capo Poe MD [facility] CPT-11741 Level 4 Est. Patient 09:44:24 CAR RECORD CLERK Capo Poe MD [facility] CPT-46373 Level 3 Est. Patient 14:48:42 CAR RECORD CLERK Zoran Arzola MD [facility] CPT-13603 Level 4 Est. Patient 10:24:02 CDT Capo Poe MD [facility] CPT-54304 Level 3 Est. Patient 15:42:00 CDT Maya WRIGHTP [facility] CPT-49296 Level 4 Est. Patient 13:34:15 CDT Capo Poe MD [facility] CPT-79739 Level 3 Est. Patient 15:32:10 CAR RECORD CLERK Zoran Arzola MD [facility] CPT-67312 Level 3 New Patient 17:17:19 CAR RECORD CLERK Zoran Arzola MD [facility] CPT-77920 Level 4 Est. Patient 10:25:01 CAR RECORD CLERK Capo Poe MD [facility] CPT-60918 Level 3 Est. Patient 10:10:42 CDT Zoran Arzola MD [facility] CPT-33799 Level 3 Est. Patient 22:30:02 CDT Zoran Arzola MD [facility] CPT-52910 Level 4 Est. Patient 09:54:20 CDT Capo Poe MD [facility] CPT-68167 Level 3 Est. Patient 10:48:30 CDT Capo Poe MD [facility] CPT-67514 Level 3 Est. Patient 11:24:45 CDT Capo Poe MD [facility] CPT-75404 Level 3 Est. Patient 15:23:48 CAR RECORD CLERK Capo Poe MD [facility] CPT-46479 Level 3 Est. Patient 15:10:03 CAR RECORD CLERK Capo Poe MD [facility] CPT-76910 Level 3 Est. Patient 16:18:40 CDT Zoran Arzola MD [facility] Procedures Code Procedure Name Date Entry Date Standard Description CPT-49479 Chest 2V Frontal and Lat - XRAY USE ONLY 11:51:24 CDT CPT-16399 Venipuncture Draw Fee 11:31:49 CDT CPT-96851 Hemoccult IFOBT - LAB USE ONLY 14:11:43 CAR RECORD CLERK CPT-87229 TPSA - LAB USE ONLY 10:37:52 CAR RECORD CLERK CPT-86971 TSH - LAB USE ONLY 10:37:51 CAR RECORD CLERK CPT-45300 CMP - LAB USE ONLY 10:37:51 CAR RECORD CLERK CPT-07695 CBC with Diff - LAB USE ONLY 10:37:51 CAR RECORD CLERK CPT-58082 Venipuncture Draw Fee 10:37:51 CAR RECORD CLERK CPT-000 Give Pneumovax 10:39:30 CDT CPT-18005 Venipuncture Draw Fee 09:32:34 CDT CPT-G0438 Initial Annual Wellness Exam 10:24:35 CDT CPT-35238 Venipuncture Draw Fee 09:46:29 CDT CPT-34426 Venipuncture Draw Fee 14:30:06 CDT CPT-67691 Venipuncture Draw Fee 10:58:22 CDT CPT-82077 Abd single AP View 08:32:00 CDT CPT-81088 Postop F/U Visit 21:13:08 CDT CPT-44875 Abd single AP View 15:50:24 CDT CPT-69452 Cystoscopy W/rem FB 15:21:28 CDT CPT-21324 Abd single AP View 14:06:45 CDT CPT-32090 Postop F/U Visit 09:48:32 CDT CPT-06781 Abd single AP View 13:58:26 CDT CPT-44770 Hip comp min 2V 10:27:18 CAR RECORD CLERK CPT-40164 Urine Dip (Floor Use Only) 13:41:01 CAR RECORD CLERK CPT-29844 Postop F/U Visit 11:17:48 CDT CPT-LR Lesion Removal 11:50:22 CDT CPT-OV Office Visit 11:50:22 CDT CPT-04115 Pneumovax 23 10:55:48 CDT CPT-92591 Administration single or combination vaccine inc oral 10 :55:48 CDT CPT-Cryo Cryotherapy 11:18:11 CDT CPT-OV Office Visit 11:18:11 CDT CPT-56213 LS spine AP and Lat 09:05:22 CDT CPT-02181 Bladder Scan 15:42:00 CDT CPT-19933 Cystoscopy 15:42:00 CDT CPT-OV Office Visit 16:37:19 CAR RECORD CLERK CPT-72615 Bladder Scan 15:32:10 CAR RECORD CLERK CPT-49494 Cystoscopy 15:32:10 CAR RECORD CLERK CPT-80335 Abd single AP View 14:05:59 CAR RECORD CLERK CPT-09980 Pill cam small bowel 09:48:39 CAR RECORD CLERK CPT-83515 Urine Dip (Floor Use Only) 17:17:19 CAR RECORD CLERK CPT-48666 Bladder Scan 17:17:19 CAR RECORD CLERK CPT-OV Office Visit 11:50:26 CAR RECORD CLERK CPT-40456 Bladder Scan 10:10:42 CDT CPT-91941 Venipuncture Draw Fee 09:14:04 CDT CPT-53301 Chest 2V Frontal and Lat 10:10:49 CDT CPT-65116 LS spine comp w obliq 11:50:11 CDT CPT-40156 Venipuncture Draw Fee 08:52:57 CAR RECORD CLERK CPT-23681 Cystoscopy W/rem FB 18:37:28 CDT CPT-25679 Abd single AP View 16:18:40 CDT CPT-57551 Abd compl w upright 17:30:59 CDT
--- OUTSIDE RECORDS SUMMARY | 2016-11-22 15:57 | XMS REPORT | Clinical Summary ---
Author Author Admin, QIE Organization [facility] Address Unknown Phone Unavailable Allergies, Adverse Reactions, [...] collapse Iron deficiency 280.9 Active Jasmin Dixon [facility] Iron deficiency anemia, unspecified NAUSEA [...] 1 tab po twice daily FERROUS SULFATE 07612369809 Active Jasmin TEIXEIRA Active D ORAL TABS 2000 iu weekly D ORAL TABS Active Capo Poe MD Active CITALOPRAM HYDROBROMIDE 20 MG TABS 1 tablet by mouth daily CITALOPRAM HYDROBROMIDE 06422968688 Active Capo Poe MD Active CLARITIN 5 MG ORAL CHEW 1 tab po q day LORATADINE 80068212900 Active Felisa TEIXEIRA Active VIIBRYD STARTER PACK 10 & 20 MG ORAL KIT 1 po qd as directed 2015 VILAZODONE HCL 71968040668 No Longer Active Felisa TEIXEIRA Active HYDROXYZINE HCL 25 MG TAB 1 po qHS PRN Insomnia HYDROXYZINE HCL 04648749475 Active Capo Poe MD Active LISINOPRIL 10 MG TABS 1 tablet by mouth daily LISINOPRIL 24889122157 Active Capo Poe MD Active LORTAB 7.5-325 MG ORAL TABS 1 po q 6 hr prn pain HYDROCODONE- ACETAMINOPHEN 70656451374 No Longer Active Capo Poe MD Active FLOMAX 0.4 MG CAPS Take one by mouth daily TAMSULOSIN HCL 47705722330 No Longer Active Capo Poe MD Active TRIAMCINOLONE ACETONIDE 0.1 % CREA Apply to affected areas TID for up to 2 weeks TRIAMCINOLONE ACETONIDE 83944502527 Active Capo Poe MD Active NICOTINE 14 MG/24HR TRANS PT24 Apply/Change q 24hr NICOTINE 47224183333 No Longer Active Capo Poe MD Active TRAMADOL HCL 50 MG TABS 1-2 tablets every 6 hours as needed for pain TRAMADOL HCL 69637349983 No Longer Active Capo Poe MD Active SERTRALINE HCL 100 MG ORAL TABS take 1 tab daily SERTRALINE HCL 77255583172 No Longer Active Capo Poe MD Active LISINOPRIL-HYDROCHLOROTHIAZIDE 10-12.5 MG TABS 0.5 tab by mouth daily LISINOPRIL-HYDROCHLOROTHIAZIDE 77899811702 No Longer Active Capo Poe MD Active OMEPRAZOLE 20 MG CPDR 1 tablet by mouth daily OMEPRAZOLE 06835849004 Active Capo Poe MD Active WELLBUTRIN SR 150 MG ORAL [id number] 1 po BID BUPROPION HCL 27103531328 No Longer Active Capo Poe MD Active MIRALAX PACK 1 po qd PRN Constipation POLYETHYLENE GLYCOL 3350 34852877808 Active Capo Poe MD Active DULERA 100-5 MCG/ACT AERO 2 puffs BID MOMETASONE FURO- FORMOTEROL FUM 96919975060 Active Capo Poe MD Active ZOLOFT 100 MG TABS 1 po daily SERTRALINE HCL 23138525928 No Longer Active Zoran Arzola MD Active FERROUS SULFATE 325 (65 FE) MG TABS 1 tablet by mouth daily FERROUS SULFATE 92339616345 No Longer Active Capo Poe MD Active HYDROCODONE-ACETAMINOPHEN 7.5-300 MG TABS take one every six hours HYDROCODONE-ACETAMINOPHEN 26602784983 No Longer Active Capo Poe MD Active TRIAMCINOLONE ACETONIDE 0.1 % OINT Apply to affected areas TID for up to 2 weeks TRIAMCINOLONE ACETONIDE 86501667645 No Longer Active Joe Vargas RN Active FERROUS SULFATE 325 (65 FE) MG TABS Take one by mouth daily FERROUS SULFATE 10413760382 No Longer Active Capo Poe MD Active TRIAMCINOLONE ACETONIDE 0.1 % OINT Apply to affected areas TID for up to 2 weeks TRIAMCINOLONE ACETONIDE 62684512870 No Longer Active Capo Poe MD Active ADULT ASPIRIN LOW STRENGTH 81 MG TBDP qd ASPIRIN 46535470308 Active Zoran Arzola MD Active ALEVE 220 MG TAB prn NAPROXEN SODIUM 06729278871 Active Capo Poe MD Active MACROBID 100 MG CAP 1 cap by mouth twice daily NITROFURANTOIN MONOHYD MACRO 04364622819 No Longer Active Dona Becker Active AZITHROMYCIN 250 MG TABS 2 po qd x 1 day, then 1 po qd x 4 days AZITHROMYCIN 82877312447 No Longer Active Capo Poe MD Active FISH OIL 500 MG CAPS by mouth twice a day OMEGA-3 FATTY ACIDS 14742438874 Active Capo Poe MD Active FLAXSEED OIL 1000 MG CAPS Take two by mouth daily FLAXSEED (LINSEED) 52207655171 Active Zoran Arzola MD Active RED YEAST RICE 600 MG CAPS Take two by mouth daily RED YEAST RICE EXTRACT 64069770526 Active Zoran Arzola MD Active MULTIVITAMINS CAPS Take one by mouth daily MULTIPLE VITAMIN 10930015230 Active Zoran Arzola MD Active ICAPS MV TABS 2 po daily MULTIPLE VITAMINS-MINERALS 58994658881 Active Jam Arnold DO Active MACROBID 100 MG CAP 1 cap by mouth twice daily MACROBID 100 MG CAP 7134069 NITROFURANTOIN MONOHYD MACRO Inactive FERROUS SULFATE 325 (65 FE) MG TABS Take one by mouth daily FERROUS SULFATE 325 (65 FE) MG TABS 342852 FERROUS SULFATE Inactive HYDROCODONE-ACETAMINOPHEN 7.5-300 MG TABS take one every six hours HYDROCODONE-ACETAMINOPHEN 7.5-300 MG TABS 106343 HYDROCODONE- ACETAMINOPHEN Inactive FERROUS SULFATE 325 (65 FE) MG TABS 1 tablet by mouth daily FERROUS SULFATE 325 (65 FE) MG TABS 860066 FERROUS SULFATE Inactive ZOLOFT 100 MG TABS 1 po daily ZOLOFT 100 MG TABS 177065 SERTRALINE HCL Inactive SERTRALINE HCL 100 MG ORAL TABS take 1 tab daily SERTRALINE HCL 100 MG ORAL TABS 686387 SERTRALINE HCL Inactive TRAMADOL HCL 50 MG TABS 1-2 tablets every 6 hours as needed for pain TRAMADOL HCL 50 MG TABS 877224 TRAMADOL HCL Inactive NICOTINE 14 MG/24HR TRANS PT24 Apply/Change q 24hr NICOTINE 14 MG/24HR TRANS PT24 386721 NICOTINE Inactive FLOMAX 0.4 MG CAPS Take one by mouth daily FLOMAX 0.4 MG CAPS 967218 TAMSULOSIN HCL Inactive LORTAB 7.5-325 MG ORAL TABS 1 po q 6 hr prn pain LORTAB 7.5- 325 MG ORAL TABS 656335 HYDROCODONE-ACETAMINOPHEN Inactive VIIBRYD STARTER PACK 10 & 20 MG ORAL KIT 1 po qd as directed 2015 VIIBRYD STARTER PACK 10 & 20 MG ORAL KIT VILAZODONE HCL Inactive AZITHROMYCIN 250 MG TABS 2 po qd x 1 day, then 1 po qd x 4 days AZITHROMYCIN 250 MG TABS 1221568 AZITHROMYCIN Inactive TRIAMCINOLONE ACETONIDE 0.1 % OINT Apply to affected areas TID for up to 2 weeks TRIAMCINOLONE ACETONIDE 0.1 % OINT 0684550 TRIAMCINOLONE ACETONIDE Inactive TRIAMCINOLONE ACETONIDE 0.1 % OINT Apply to affected areas TID for up to 2 weeks TRIAMCINOLONE ACETONIDE 0.1 % OINT 1083884 TRIAMCINOLONE ACETONIDE Inactive Advance Directives Directive Description [...] ... - Chemistry sodium, serum 141 mmol/L 710-076 1239/01/27 carbon dioxide, venous blood 29.7 mmol/L 21.0-32.0 [...] Panel, Thyroid Stimulating Hormo ... - Hematology mean corpuscular hemoglobin concentration, RBC 31.9 G/DL % 32.0- 36.0 red blood cell distribution width 14.6 % 11.0-16.0 platelet count 286 10^3/MM^3 10*3/mm3 254-251 1740/01/27 leukocyte count, blood 6.8 10^3/MM^3 10*3/mm3 4.0-10.0 [...] mean corpuscular hemoglobin, RBC 25.3 pg 27.0-32.0 Lab Report: Comp. Metabolic Panel, Lipid Panel, HGBA1C, CBC, MICROALB/CR ... - Chemistry blood glucose 129 mg/dL 65-110 chloride, serum 101 mmol/L 98-107 potassium, serum 4.6 mmol/L 3.5-5.2 carbon dioxide, venous blood 25.5 mmol/L 21.0-32.0 sodium, serum 138 mmol/L 554-310 2809/03/18 urea nitrogen, blood 20 mg/dL 7-18 creatinine, serum 1.87 mg/dL 0.55-1.30 alanine aminotransferase (SGPT), serum 26 U/L 12-78 aspartate aminotransferase (SGOT), serum 20 U/L 15-37 calcium, serum 8.8 mg/dL 8.5-10.1 bilirubin, serum, total 0.40 mg/dL 0.00-1.00 cholesterol, serum 251 mg/dL 939-109 8259/03/18 triglyceride, serum, fasting 135 mg/dL 30-200 HDL [...] 0-19 Encounters Code Encounter Date Provider Facility CPT-85901 Level 4 Est. Patient 09:26:11 JUNK REMOVAL SPECIALIST Capo Poe MD [facility] CPT-48327 Level 4 Est. Patient 08:53:08 CDT Capo Poe MD [facility] CPT-15424 Level 4 Est. Patient 10:22:57 CDT Capo Poe MD [facility] CPT-51852 Level 4 Est. Patient 13:44:30 CDT Capo Poe MD [facility] CPT-26193 Level 3 Est. Patient 14:59:32 JUNK REMOVAL SPECIALIST Capo Poe MD [facility] CPT-64123 Level 4 Est. Patient 10:46:15 JUNK REMOVAL SPECIALIST Capo Poe MD [facility] CPT-28718 Level 3 Est. Patient 11:00:53 CDT Capo Poe MD [facility] CPT-34334 Level 3 Est. Patient 09:39:35 CDT Capo Poe MD [facility] CPT-00398 Level 3 Est. Patient 09:27:01 CDT Capo Poe MD [facility] CPT-01735 Level 3 Est. Patient 18:37:08 CDT Zoran Arzola MD [facility] CPT-80701 Level 3 Est. Patient 15:00:28 CDT Capo Poe MD [facility] CPT-05746 Level 3 Est. Patient 08:20:19 CDT Zoran Arzola MD [facility] CPT-22353 Level 3 Est. Patient 09:22:21 CDT Capo Poe MD [facility] CPT-36232 Level 4 Est. Patient 10:21:30 JUNK REMOVAL SPECIALIST Capo Poe MD [facility] CPT-68001 Level 3 Est. Patient 17:08:51 JUNK REMOVAL SPECIALIST Zoran Arzola MD [facility] CPT-70977 Level 4 Est. Patient 09:44:42 CDT Capo Poe MD [facility] CPT-59214 Level 4 Est. Patient 10:39:29 CDT Capo Poe MD [facility] CPT-65503 Level 3 Est. Patient 17:45:23 CDT Zoran Arzola MD [facility] CPT-74458 Level 4 Est. Patient 08:50:44 CDT Capo Poe MD [facility] CPT-60527 Level 3 Est. Patient 10:39:51 JUNK REMOVAL SPECIALIST Capo Poe MD [facility] CPT-71769 Level 4 Est. Patient 09:44:24 JUNK REMOVAL SPECIALIST Capo Poe MD [facility] CPT-97561 Level 3 Est. Patient 14:48:42 JUNK REMOVAL SPECIALIST Zoran Arzola MD [facility] CPT-78810 Level 4 Est. Patient 10:24:02 CDT Capo Poe MD [facility] CPT-08373 Level 3 Est. Patient 15:42:00 CDT Maya DUKES [facility] CPT-97984 Level 4 Est. Patient 13:34:15 CDT Capo Poe MD [facility] CPT-49970 Level 3 Est. Patient 15:32:10 JUNK REMOVAL SPECIALIST Zoran Arzola MD [facility] CPT-88997 Level 3 New Patient 17:17:19 JUNK REMOVAL SPECIALIST Zoran Arzola MD [facility] CPT-48555 Level 4 Est. Patient 10:25:01 JUNK REMOVAL SPECIALIST Capo Poe MD [facility] CPT-42916 Level 3 Est. Patient 10:10:42 CDT Zoran Arzola MD [facility] CPT-33445 Level 3 Est. Patient 22:30:02 CDT Zoran Arzola MD [facility] CPT-71210 Level 4 Est. Patient 09:54:20 CDT Capo Poe MD [facility] CPT-49736 Level 3 Est. Patient 10:48:30 CDT Capo Poe MD [facility] CPT-81573 Level 3 Est. Patient 11:24:45 CDT Capo Poe MD [facility] CPT-50219 Level 3 Est. Patient 15:23:48 JUNK REMOVAL SPECIALIST Capo Poe MD [facility] CPT-50729 Level 3 Est. Patient 15:10:03 JUNK REMOVAL SPECIALIST Capo Poe MD [facility] CPT-75558 Level 3 Est. Patient 16:18:40 CDT Zoran Arzola MD [facility] Procedures Code Procedure Name Date Entry Date Standard Description CPT-82089 Hemoccult IFOBT - LAB USE ONLY 14:11:43 JUNK REMOVAL SPECIALIST CPT-85564 TPSA - LAB USE ONLY 10:37:52 JUNK REMOVAL SPECIALIST CPT-95256 TSH - LAB USE ONLY 10:37:51 JUNK REMOVAL SPECIALIST CPT-64664 CMP - LAB USE ONLY 10:37:51 JUNK REMOVAL SPECIALIST CPT-23353 CBC with Diff - LAB USE ONLY 10:37:51 JUNK REMOVAL SPECIALIST CPT-60308 Venipuncture Draw Fee 10:37:51 JUNK REMOVAL SPECIALIST CPT-000 Give Pneumovax 10:39:30 CDT CPT-92989 Venipuncture Draw Fee 09:32:34 CDT CPT-G0438 Initial Annual Wellness Exam 10:24:35 CDT CPT-00138 Venipuncture Draw Fee 09:46:29 CDT CPT-95628 Venipuncture Draw Fee 14:30:06 CDT CPT-25997 Venipuncture Draw Fee 10:58:22 CDT CPT-98397 Abd single AP View 08:32:00 CDT CPT-58935 Postop F/U Visit 21:13:08 CDT CPT-63030 Abd single AP View 15:50:24 CDT CPT-42639 Cystoscopy W/rem FB 15:21:28 CDT CPT-62262 Abd single AP View 14:06:45 CDT CPT-47171 Postop F/U Visit 09:48:32 CDT CPT-64382 Abd single AP View 13:58:26 CDT CPT-09200 Hip comp min 2V 10:27:18 JUNK REMOVAL SPECIALIST CPT-81867 Urine Dip (Floor Use Only) 13:41:01 JUNK REMOVAL SPECIALIST CPT-62146 Postop F/U Visit 11:17:48 CDT CPT-LR Lesion Removal 11:50:22 CDT CPT-OV Office Visit 11:50:22 CDT CPT-14489 Pneumovax 23 10:55:48 CDT CPT-64295 Administration single or combination vaccine inc oral 10 :55:48 CDT CPT-Cryo Cryotherapy 11:18:11 CDT CPT-OV Office Visit 11:18:11 CDT CPT-65710 LS spine AP and Lat 09:05:22 CDT CPT-84125 Bladder Scan 15:42:00 CDT CPT-18082 Cystoscopy 15:42:00 CDT CPT-OV Office Visit 16:37:19 JUNK REMOVAL SPECIALIST CPT-91133 Bladder Scan 15:32:10 JUNK REMOVAL SPECIALIST CPT-17491 Cystoscopy 15:32:10 JUNK REMOVAL SPECIALIST CPT-23102 Abd single AP View 14:05:59 JUNK REMOVAL SPECIALIST CPT-15542 Pill cam small bowel 09:48:39 JUNK REMOVAL SPECIALIST CPT-94099 Urine Dip (Floor Use Only) 17:17:19 JUNK REMOVAL SPECIALIST CPT-25884 Bladder Scan 17:17:19 JUNK REMOVAL SPECIALIST CPT-OV Office Visit 11:50:26 JUNK REMOVAL SPECIALIST CPT-75497 Bladder Scan 10:10:42 CDT CPT-77946 Venipuncture Draw Fee 09:14:04 CDT CPT-91558 Chest 2V Frontal and Lat 10:10:49 CDT CPT-12654 LS spine comp w obliq 11:50:11 CDT CPT-85136 Venipuncture Draw Fee 08:52:57 JUNK REMOVAL SPECIALIST CPT-31233 Cystoscopy W/rem FB 18:37:28 CDT CPT-70358 Abd single AP View 16:18:40 CDT CPT-78411 Abd compl w upright 17:30:59 CDT
--- OUTSIDE RECORDS SUMMARY | 2016-11-22 15:58 | XMS REPORT | Clinical Summary ---
Author Author Admin, MARGE Organization [facility] Address Unknown Phone Unavailable Allergies, Adverse [...] 1 po qHS PRN Insomnia HYDROXYZINE HCL 62478313785 Active Capo Poe MD Active LISINOPRIL 10 MG TABS 1 tablet by mouth daily LISINOPRIL 01889587504 Active Capo Poe MD Active VIIBRYD STARTER PACK 10 & 20 MG ORAL KIT 1 po qd as directed VILAZODONE HCL 20038499892 Active Capo Poe MD Active LORTAB 7.5-325 MG ORAL TABS 1 po q 6 hr prn pain HYDROCODONE- ACETAMINOPHEN 10707895790 No Longer Active Capo Poe MD Active FLOMAX 0.4 MG CAPS Take one by mouth daily TAMSULOSIN HCL 46950144692 No Longer Active Capo Poe MD Active TRIAMCINOLONE ACETONIDE 0.1 % CREA Apply to affected areas TID for up to 2 weeks TRIAMCINOLONE ACETONIDE 26713703795 Active Capo Poe MD Active NICOTINE 14 MG/24HR TRANS PT24 Apply/Change q 24hr NICOTINE 94425519192 No Longer Active Capo Poe MD Active TRAMADOL HCL 50 MG TABS 1-2 tablets every 6 hours as needed for pain TRAMADOL HCL 50796868209 No Longer Active Capo Poe MD Active SERTRALINE HCL 100 MG ORAL TABS take 1 tab daily SERTRALINE HCL 06400989807 No Longer Active Capo Poe MD Active LISINOPRIL-HYDROCHLOROTHIAZIDE 10-12.5 MG TABS 0.5 tab by mouth daily LISINOPRIL-HYDROCHLOROTHIAZIDE 68752916605 No Longer Active Capo Poe MD Active OMEPRAZOLE 20 MG CPDR 1 tablet by mouth daily OMEPRAZOLE 72786210283 Active Capo Poe MD Active WELLBUTRIN SR 150 MG ORAL [id number] 1 po BID BUPROPION HCL 33778233848 No Longer Active Capo Poe MD Active MIRALAX PACK 1 po qd PRN Constipation POLYETHYLENE GLYCOL 3350 93699945424 Active Capo Poe MD Active DULERA 100-5 MCG/ACT AERO 2 puffs BID MOMETASONE FURO- FORMOTEROL FUM 78167212800 Active Capo Poe MD Active ZOLOFT 100 MG TABS 1 po daily SERTRALINE HCL 19363017501 No Longer Active Zoran Arzola MD Active FERROUS SULFATE 325 (65 FE) MG TABS 1 tablet by mouth daily FERROUS SULFATE 66774960377 No Longer Active Capo Poe MD Active HYDROCODONE-ACETAMINOPHEN 7.5-300 MG TABS take one every six hours HYDROCODONE-ACETAMINOPHEN 05347263031 No Longer Active Capo Poe MD Active TRIAMCINOLONE ACETONIDE 0.1 % OINT Apply to affected areas TID for up to 2 weeks TRIAMCINOLONE ACETONIDE 76642251194 No Longer Active Joe Vargas RN Active FERROUS SULFATE 325 (65 FE) MG TABS Take one by mouth daily FERROUS SULFATE 11351705738 No Longer Active Capo Poe MD Active TRIAMCINOLONE ACETONIDE 0.1 % OINT Apply to affected areas TID for up to 2 weeks TRIAMCINOLONE ACETONIDE 35182025941 No Longer Active Capo Poe MD Active ADULT ASPIRIN LOW STRENGTH 81 MG TBDP qd ASPIRIN 99782336958 Active Zoran Arzola MD Active ALEVE 220 MG TAB prn NAPROXEN SODIUM 28131532581 Active Capo Poe MD Active MACROBID 100 MG CAP 1 cap by mouth twice daily NITROFURANTOIN MONOHYD MACRO 35126768407 No Longer Active Dona Becker Active AZITHROMYCIN 250 MG TABS 2 po qd x 1 day, then 1 po qd x 4 days AZITHROMYCIN 70007918358 No Longer Active Capo Poe MD Active FISH OIL 500 MG CAPS by mouth twice a day OMEGA-3 FATTY ACIDS 60242190242 Active Capo Poe MD Active FLAXSEED OIL 1000 MG CAPS Take two by mouth daily FLAXSEED (LINSEED) 17578602787 Active Zoran Arzola MD Active RED YEAST RICE 600 MG CAPS Take two by mouth daily RED YEAST RICE EXTRACT 02753144477 Active Zoran Arzola MD Active MULTIVITAMINS CAPS Take one by mouth daily MULTIPLE VITAMIN 13300949800 Active Zoran Arzola MD Active ICAPS MV TABS 2 po daily MULTIPLE VITAMINS-MINERALS 76660339171 Active Jam Arnold DO Active MACROBID 100 MG CAP 1 cap by mouth twice daily MACROBID 100 MG CAP 8769953 NITROFURANTOIN MONOHYD MACRO Inactive FERROUS SULFATE 325 (65 FE) MG TABS Take one by mouth daily FERROUS SULFATE 325 (65 FE) MG TABS 118817 FERROUS SULFATE Inactive HYDROCODONE-ACETAMINOPHEN 7.5-300 MG TABS take one every six hours HYDROCODONE-ACETAMINOPHEN 7.5-300 MG TABS 964107 HYDROCODONE- ACETAMINOPHEN Inactive FERROUS SULFATE 325 (65 FE) MG TABS 1 tablet by mouth daily FERROUS SULFATE 325 (65 FE) MG TABS 333084 FERROUS SULFATE Inactive ZOLOFT 100 MG TABS 1 po daily ZOLOFT 100 MG TABS 861724 SERTRALINE HCL Inactive SERTRALINE HCL 100 MG ORAL TABS take 1 tab daily SERTRALINE HCL 100 MG ORAL TABS 179890 SERTRALINE HCL Inactive TRAMADOL HCL 50 MG TABS 1-2 tablets every 6 hours as needed for pain TRAMADOL HCL 50 MG TABS 864174 TRAMADOL HCL Inactive NICOTINE 14 MG/24HR TRANS PT24 Apply/Change q 24hr NICOTINE 14 MG/24HR TRANS PT24 401273 NICOTINE Inactive FLOMAX 0.4 MG CAPS Take one by mouth daily FLOMAX 0.4 MG CAPS 897711 TAMSULOSIN HCL Inactive LORTAB 7.5-325 MG ORAL TABS 1 po q 6 hr prn pain LORTAB 7.5- 325 MG ORAL TABS 308743 HYDROCODONE-ACETAMINOPHEN Inactive AZITHROMYCIN 250 MG TABS 2 po qd x 1 day, then 1 po qd x 4 days AZITHROMYCIN 250 MG TABS 5830029 AZITHROMYCIN Inactive TRIAMCINOLONE ACETONIDE 0.1 % OINT Apply to affected areas TID for up to 2 weeks TRIAMCINOLONE ACETONIDE 0.1 % OINT 1643034 TRIAMCINOLONE ACETONIDE Inactive TRIAMCINOLONE ACETONIDE 0.1 % OINT Apply to affected areas TID for up to 2 weeks TRIAMCINOLONE ACETONIDE 0.1 % OINT 2482730 TRIAMCINOLONE ACETONIDE Inactive Advance Directives Directive Description [...] Panel - Chemistry sodium, serum 139 mmol/L 065-033 8818/07/30 potassium, serum 4.7 mmol/L 3.5-5.2 chloride, serum 101 mmol/L 98-107 carbon dioxide, venous blood 34.8 mmol/L 21.0-32.0 blood glucose 124 mg/dL 65-110 calcium, serum 8.9 mg/dL 8.5-10.1 urea nitrogen, blood 18 mg/dL 7-18 creatinine, serum 1.40 mg/dL 0.60-1.30 Lab Report: Comp. Metabolic Panel, Lipid Panel, HGBA1C, CBC, MICROALB/CR ... - Chemistry sodium, serum 138 mmol/L 348-248 3821/03/18 carbon dioxide, venous blood 25.5 mmol/L 21.0-32.0 potassium, serum 4.6 mmol/L 3.5-5.2 chloride, serum 101 mmol/L 98-107 blood glucose 129 mg/dL 65-110 urea nitrogen, blood 20 mg/dL 7-18 creatinine, serum 1.87 mg/dL 0.55-1.30 alanine aminotransferase (SGPT), serum 26 U/L 12-78 aspartate aminotransferase (SGOT), serum 20 U/L 15-37 calcium, serum 8.8 mg/dL 8.5-10.1 bilirubin, serum, total 0.40 mg/dL 0.00-1.00 cholesterol, serum 251 mg/dL 416-218 6815/03/18 triglyceride, serum, fasting 135 mg/dL 30-200 HDL [...] negative Encounters Code Encounter Date Provider Facility CPT-17279 Level 4 Est. Patient 13:44:30 CDT Capo Poe MD [facility] CPT-83032 Level 3 Est. Patient 14:59:32 PEST CONTROLLER ASSISTANT Capo Poe MD [facility] CPT-11905 Level 4 Est. Patient 10:46:15 PEST CONTROLLER ASSISTANT Capo Poe MD [facility] CPT-55729 Level 3 Est. Patient 11:00:53 CDT Capo Poe MD [facility] CPT-76837 Level 3 Est. Patient 09:39:35 CDT Capo Poe MD [facility] CPT-82925 Level 3 Est. Patient 09:27:01 CDT Capo Poe MD [facility] CPT-40137 Level 3 Est. Patient 18:37:08 CDT Zoran Arzola MD [facility] CPT-64635 Level 3 Est. Patient 15:00:28 CDT Capo Poe MD [facility] CPT-88325 Level 3 Est. Patient 08:20:19 CDT Zoran Arzola MD [facility] CPT-45656 Level 3 Est. Patient 09:22:21 CDT Capo Poe MD [facility] CPT-40159 Level 4 Est. Patient 10:21:30 PEST CONTROLLER ASSISTANT Capo Poe MD [facility] CPT-36513 Level 3 Est. Patient 17:08:51 PEST CONTROLLER ASSISTANT Zoran Arzola MD [facility] CPT-97073 Level 4 Est. Patient 09:44:42 CDT Capo Poe MD [facility] CPT-02939 Level 4 Est. Patient 10:39:29 CDT Capo Poe MD [facility] CPT-52218 Level 3 Est. Patient 17:45:23 CDT Zoran Arzola MD [facility] CPT-91186 Level 4 Est. Patient 08:50:44 CDT Capo Poe MD [facility] CPT-36478 Level 3 Est. Patient 10:39:51 PEST CONTROLLER ASSISTANT Capo Poe MD [facility] CPT-60899 Level 4 Est. Patient 09:44:24 PEST CONTROLLER ASSISTANT Capo Poe MD [facility] CPT-38834 Level 3 Est. Patient 14:48:42 PEST CONTROLLER ASSISTANT Zoran Arzola MD [facility] CPT-02306 Level 4 Est. Patient 10:24:02 CDT Capo Poe MD [facility] CPT-03489 Level 3 Est. Patient 15:42:00 CDT Maya DUKES [facility] CPT-53851 Level 4 Est. Patient 13:34:15 CDT Capo Poe MD [facility] CPT-04638 Level 3 Est. Patient 15:32:10 PEST CONTROLLER ASSISTANT Zoran Arzola MD [facility] CPT-81571 Level 3 New Patient 17:17:19 PEST CONTROLLER ASSISTANT Zoran Arzola MD [facility] CPT-48337 Level 4 Est. Patient 10:25:01 PEST CONTROLLER ASSISTANT Capo Poe MD [facility] CPT-55353 Level 3 Est. Patient 10:10:42 CDT Zoran Arzola MD [facility] CPT-25430 Level 3 Est. Patient 22:30:02 CDT Zoran Arzola MD [facility] CPT-69337 Level 4 Est. Patient 09:54:20 CDT Capo Poe MD [facility] CPT-26000 Level 3 Est. Patient 10:48:30 CDT Capo Poe MD [facility] CPT-69591 Level 3 Est. Patient 11:24:45 CDT Capo Poe MD [facility] CPT-36133 Level 3 Est. Patient 15:23:48 PEST CONTROLLER ASSISTANT Capo Poe MD [facility] CPT-89208 Level 3 Est. Patient 15:10:03 PEST CONTROLLER ASSISTANT Capo Poe MD [facility] CPT-31643 Level 3 Est. Patient 16:18:[address] [facility] Procedures Code Procedure Name Date Entry Date Standard Description CPT-18776 Venipuncture Draw Fee 09:46:29 CDT CPT-89761 Venipuncture Draw Fee 14:30:06 CDT CPT-72535 Venipuncture Draw Fee 10:58:22 CDT CPT-59108 Abd single AP View 08:32:00 CDT CPT-40909 Postop F/U Visit 21:13:08 CDT CPT-23602 Abd single AP View 15:50:24 CDT CPT-47244 Cystoscopy W/rem FB 15:21:28 CDT CPT-95185 Abd single AP View 14:06:45 CDT CPT-78187 Postop F/U Visit 09:48:32 CDT CPT-57792 Abd single AP View 13:58:26 CDT CPT-78103 Hip comp min 2V 10:27:18 PEST CONTROLLER ASSISTANT CPT-26198 Urine Dip (Floor Use Only) 13:41:01 PEST CONTROLLER ASSISTANT CPT-77728 Postop F/U Visit 11:17:48 CDT CPT-LR Lesion Removal 11:50:22 CDT CPT-OV Office Visit 11:50:22 CDT CPT-08222 Pneumovax 23 10:55:48 CDT CPT-11820 Administration single or combination vaccine inc oral 10 :55:48 CDT CPT-Cryo Cryotherapy 11:18:11 CDT CPT-OV Office Visit 11:18:11 CDT CPT-12171 LS spine AP and Lat 09:05:22 CDT CPT-79082 Bladder Scan 15:42:00 CDT CPT-06099 Cystoscopy 15:42:00 CDT CPT-OV Office Visit 16:37:19 PEST CONTROLLER ASSISTANT CPT-54317 Bladder Scan 15:32:10 PEST CONTROLLER ASSISTANT CPT-60420 Cystoscopy 15:32:10 PEST CONTROLLER ASSISTANT CPT-33703 Abd single AP View 14:05:59 [employer] CPT-30247 Pill cam small bowel 09:48:39 [employer] CPT-80202 Urine Dip (Floor Use Only) 17:17:19 [employer] CPT-76659 Bladder Scan 17:17:19 [employer] CPT-OV Office Visit 11:50:26 [employer] CPT-26318 Bladder Scan 10:10:42 CDT CPT-46702 Venipuncture Draw Fee 09:14:04 CDT CPT-31586 Chest 2V Frontal and Lat 10:10:49 CDT CPT-07014 LS spine comp w obliq 11:50:11 CDT CPT-59582 Venipuncture Draw Fee 08:52:57 [employer] CPT-30994 Cystoscopy W/rem FB 18:37:28 CDT CPT-37658 Abd single AP View 16:18:40 CDT CPT-14709 Abd compl w upright 17:30:59 CDT
--- OUTSIDE RECORDS SUMMARY | 2016-11-22 15:59 | XMS REPORT | Clinical Summary ---
Author Author Admin, MARGE Organization [facility] Address Unknown Phone Unavailable Allergies, Adverse [...] of kidney URETERAL CALCULUS 592.1 Resolved Capo Peo MD Calculus of ureter FLANK PAIN 789.09 [...] 1 tablet by mouth daily CITALOPRAM HYDROBROMIDE 50878987054 Active Felisa Daphney RMMarva Active CLARITIN 5 MG ORAL CHEW 1 tab po q day LORATADINE 62639220929 Active Felisa Daphney RMA Active VIIBRYD STARTER PACK 10 & 20 MG ORAL KIT 1 po qd as directed 2015 VILAZODONE HCL 31929158102 No Longer Active Felisa Daphney RMA Active HYDROXYZINE HCL 25 MG TAB 1 po qHS PRN Insomnia HYDROXYZINE HCL 71410914724 Active Capo Poe MD Active LISINOPRIL 10 MG TABS 1 tablet by mouth daily LISINOPRIL 83834776634 Active Capo Poe MD Active LORTAB 7.5-325 MG ORAL TABS 1 po q 6 hr prn pain HYDROCODONE- ACETAMINOPHEN 63971743073 No Longer Active Capo Poe MD Active FLOMAX 0.4 MG CAPS Take one by mouth daily TAMSULOSIN HCL 27480697359 No Longer Active Capo Poe MD Active TRIAMCINOLONE ACETONIDE 0.1 % CREA Apply to affected areas TID for up to 2 weeks TRIAMCINOLONE ACETONIDE 77022446968 Active Capo Poe MD Active NICOTINE 14 MG/24HR TRANS PT24 Apply/Change q 24hr NICOTINE 51841256143 No Longer Active Capo Poe MD Active TRAMADOL HCL 50 MG TABS 1-2 tablets every 6 hours as needed for pain TRAMADOL HCL 64534547496 No Longer Active Capo Poe MD Active SERTRALINE HCL 100 MG ORAL TABS take 1 tab daily SERTRALINE HCL 38268001572 No Longer Active Capo Poe MD Active LISINOPRIL-HYDROCHLOROTHIAZIDE 10-12.5 MG TABS 0.5 tab by mouth daily LISINOPRIL-HYDROCHLOROTHIAZIDE 53216209698 No Longer Active Capo Poe MD Active OMEPRAZOLE 20 MG CPDR 1 tablet by mouth daily OMEPRAZOLE 31685425750 Active Capo Poe MD Active WELLBUTRIN SR 150 MG ORAL [id number] 1 po BID BUPROPION HCL 29693769940 No Longer Active Capo Poe MD Active MIRALAX PACK 1 po qd PRN Constipation POLYETHYLENE GLYCOL 3350 47484038240 Active Capo Poe MD Active DULERA 100-5 MCG/ACT AERO 2 puffs BID MOMETASONE FURO- FORMOTEROL FUM 27106667801 Active Capo Poe MD Active ZOLOFT 100 MG TABS 1 po daily SERTRALINE HCL 81130951386 No Longer Active Zoran Arzola MD Active FERROUS SULFATE 325 (65 FE) MG TABS 1 tablet by mouth daily FERROUS SULFATE 54612256278 No Longer Active Capo Poe MD Active HYDROCODONE-ACETAMINOPHEN 7.5-300 MG TABS take one every six hours HYDROCODONE-ACETAMINOPHEN 01395050071 No Longer Active Capo Poe MD Active TRIAMCINOLONE ACETONIDE 0.1 % OINT Apply to affected areas TID for up to 2 weeks TRIAMCINOLONE ACETONIDE 91945704243 No Longer Active Joe Vargas RN Active FERROUS SULFATE 325 (65 FE) MG TABS Take one by mouth daily FERROUS SULFATE 61426249601 No Longer Active Capo Poe MD Active TRIAMCINOLONE ACETONIDE 0.1 % OINT Apply to affected areas TID for up to 2 weeks TRIAMCINOLONE ACETONIDE 82884145180 No Longer Active Capo Poe MD Active ADULT ASPIRIN LOW STRENGTH 81 MG TBDP qd ASPIRIN 51719679034 Active Zoran Arzola MD Active ALEVE 220 MG TAB prn NAPROXEN SODIUM 96963211304 Active Capo Poe MD Active MACROBID 100 MG CAP 1 cap by mouth twice daily NITROFURANTOIN MONOHYD MACRO 87479433924 No Longer Active Dona Becker Active AZITHROMYCIN 250 MG TABS 2 po qd x 1 day, then 1 po qd x 4 days AZITHROMYCIN 11565802393 No Longer Active Capo Poe MD Active FISH OIL 500 MG CAPS by mouth twice a day OMEGA-3 FATTY ACIDS 53338330841 Active Capo Poe MD Active FLAXSEED OIL 1000 MG CAPS Take two by mouth daily FLAXSEED (LINSEED) 65376733367 Active Zoran Arzola MD Active RED YEAST RICE 600 MG CAPS Take two by mouth daily RED YEAST RICE EXTRACT 13550358396 Active Zoran Arzola MD Active MULTIVITAMINS CAPS Take one by mouth daily MULTIPLE VITAMIN 15628014632 Active Zoran Arzola MD Active ICAPS MV TABS 2 po daily MULTIPLE VITAMINS-MINERALS 40272563979 Active Jam Arnold DO Active MACROBID 100 MG CAP 1 cap by mouth twice daily MACROBID 100 MG CAP 6529948 NITROFURANTOIN MONOHYD MACRO Inactive FERROUS SULFATE 325 (65 FE) MG TABS Take one by mouth daily FERROUS SULFATE 325 (65 FE) MG TABS 923082 FERROUS SULFATE Inactive HYDROCODONE-ACETAMINOPHEN 7.5-300 MG TABS take one every six hours HYDROCODONE-ACETAMINOPHEN 7.5-300 MG TABS 077833 HYDROCODONE- ACETAMINOPHEN Inactive FERROUS SULFATE 325 (65 FE) MG TABS 1 tablet by mouth daily FERROUS SULFATE 325 (65 FE) MG TABS 887590 FERROUS SULFATE Inactive ZOLOFT 100 MG TABS 1 po daily ZOLOFT 100 MG TABS 053004 SERTRALINE HCL Inactive SERTRALINE HCL 100 MG ORAL TABS take 1 tab daily SERTRALINE HCL 100 MG ORAL TABS 544699 SERTRALINE HCL Inactive TRAMADOL HCL 50 MG TABS 1-2 tablets every 6 hours as needed for pain TRAMADOL HCL 50 MG TABS 150716 TRAMADOL HCL Inactive NICOTINE 14 MG/24HR TRANS PT24 Apply/Change q 24hr NICOTINE 14 MG/24HR TRANS PT24 757595 NICOTINE Inactive FLOMAX 0.4 MG CAPS Take one by mouth daily FLOMAX 0.4 MG CAPS 499464 TAMSULOSIN HCL Inactive LORTAB 7.5-325 MG ORAL TABS 1 po q 6 hr prn pain LORTAB 7.5- 325 MG ORAL TABS 236663 HYDROCODONE-ACETAMINOPHEN Inactive VIIBRYD STARTER PACK 10 & 20 MG ORAL KIT 1 po qd as directed 2015 VIIBRYD STARTER PACK 10 & 20 MG ORAL KIT VILAZODONE HCL Inactive AZITHROMYCIN 250 MG TABS 2 po qd x 1 day, then 1 po qd x 4 days AZITHROMYCIN 250 MG TABS 3475961 AZITHROMYCIN Inactive TRIAMCINOLONE ACETONIDE 0.1 % OINT Apply to affected areas TID for up to 2 weeks TRIAMCINOLONE ACETONIDE 0.1 % OINT 1532963 TRIAMCINOLONE ACETONIDE Inactive TRIAMCINOLONE ACETONIDE 0.1 % OINT Apply to affected areas TID for up to 2 weeks TRIAMCINOLONE ACETONIDE 0.1 % OINT 2947092 TRIAMCINOLONE ACETONIDE Inactive Advance Directives Directive Description [...] Panel - Chemistry sodium, serum 139 mmol/L 539-307 6520/07/30 potassium, serum 4.7 mmol/L 3.5-5.2 chloride, serum [...] mg/g mg/g{creat} 0-29 sodium, serum 138 mmol/L 170-119 1007/03/18 carbon dioxide, venous blood 25.5 mmol/L 21.0-32.0 potassium, serum 4.6 mmol/L 3.5-5.2 chloride, serum 101 mmol/L 98-107 blood glucose 129 mg/dL 65-110 urea nitrogen, blood 20 mg/dL 7-18 creatinine, serum 1.87 mg/dL 0.55-1.30 alanine aminotransferase (SGPT), serum 26 U/L 12-78 aspartate aminotransferase (SGOT), serum 20 U/L 15-37 calcium, serum 8.8 mg/dL 8.5-10.1 bilirubin, serum, total 0.40 mg/dL 0.00-1.00 cholesterol, serum 251 mg/dL 039-497 1262/03/18 triglyceride, serum, fasting 135 mg/dL 30-200 HDL [...] 0.00-4.00 Encounters Code Encounter Date Provider Facility CPT-85442 Level 4 Est. Patient 13:44:30 CDT Capo Poe MD [facility] CPT-77690 Level 3 Est. Patient 14:59:32 [employer] Capo Poe MD [facility] CPT-40778 Level 4 Est. Patient 10:46:15 [employer] Capo Poe MD [facility] CPT-59745 Level 3 Est. Patient 11:00:53 CDT Capo Poe MD [facility] CPT-68448 Level 3 Est. Patient 09:39:35 CDT Capo Poe MD [facility] CPT-82828 Level 3 Est. Patient 09:27:01 CDT Capo Poe MD [facility] CPT-18404 Level 3 Est. Patient 18:37:08 CDT Zoran Arzola MD [facility] CPT-21383 Level 3 Est. Patient 15:00:28 CDT Capo Poe MD [facility] CPT-73760 Level 3 Est. Patient 08:20:19 CDT Zoran Arzola MD [facility] CPT-27387 Level 3 Est. Patient 09:22:21 CDT Capo Poe MD [facility] CPT-66987 Level 4 Est. Patient 10:21:30 [employer] Capo Poe MD [facility] CPT-86666 Level 3 Est. Patient 17:08:51 [employer] Zoran Arzola MD [facility] CPT-75646 Level 4 Est. Patient 09:44:42 CDT Capo Poe MD [facility] CPT-46661 Level 4 Est. Patient 10:39:29 CDT Capo Poe MD [facility] CPT-40378 Level 3 Est. Patient 17:45:23 CDT Zoran Arzola MD [facility] CPT-58752 Level 4 Est. Patient 08:50:44 CDT Capo Poe MD [facility] CPT-25616 Level 3 Est. Patient 10:39:51 [employer] Capo Poe MD [facility] CPT-71264 Level 4 Est. Patient 09:44:24 [employer] Capo Poe MD [facility] CPT-57405 Level 3 Est. Patient 14:48:42 [employer] Zoran Arzola MD [facility] CPT-95949 Level 4 Est. Patient 10:24:02 CDT Capo Poe MD [facility] CPT-89678 Level 3 Est. Patient 15:42:00 CDT Maya WRIGHTP [facility] CPT-45568 Level 4 Est. Patient 13:34:15 CDT Capo Poe MD [facility] CPT-00435 Level 3 Est. Patient 15:32:10 [employer] Zoran Arzola MD [facility] CPT-18722 Level 3 New Patient 17:17:19 [employer] Zoran Arzola MD [facility] CPT-54041 Level 4 Est. Patient 10:25:01 [employer] Capo Poe MD [facility] CPT-69253 Level 3 Est. Patient 10:10:42 CDT Zoran Arzola MD [facility] CPT-67070 Level 3 Est. Patient 22:30:02 CDT Zoran Arzola MD [facility] CPT-69072 Level 4 Est. Patient 09:54:20 CDT Capo Poe MD [facility] CPT-45240 Level 3 Est. Patient 10:48:30 CDT Capo Poe MD [facility] CPT-50769 Level 3 Est. Patient 11:24:45 CDT Capo Poe MD [facility] CPT-95347 Level 3 Est. Patient 15:23:48 [employer] Capo Poe MD [facility] CPT-43687 Level 3 Est. Patient 15:10:03 [employer] Capo Poe MD [facility] CPT-79171 Level 3 Est. Patient 16:18:40 CDT Zoran Arzola MD [facility] Procedures Code Procedure Name Date Entry Date Standard Description CPT-10031 Venipuncture Draw Fee 09:46:29 CDT CPT-91646 Venipuncture Draw Fee 14:30:06 CDT CPT-21780 Venipuncture Draw Fee 10:58:22 CDT CPT-28590 Abd single AP View 08:32:00 CDT CPT-96796 Postop F/U Visit 21:13:08 CDT CPT-25923 Abd single AP View 15:50:24 CDT CPT-62783 Cystoscopy W/rem FB 15:21:28 CDT CPT-92000 Abd single AP View 14:06:45 CDT CPT-45632 Postop F/U Visit 09:48:32 CDT CPT-38663 Abd single AP View 13:58:26 CDT CPT-81706 Hip comp min 2V 10:27:18 [employer] CPT-69446 Urine Dip (Floor Use Only) 13:41:01 [employer] CPT-03799 Postop F/U Visit 11:17:48 CDT CPT-LR Lesion Removal 11:50:22 CDT CPT-OV Office Visit 11:50:22 CDT CPT-60395 Pneumovax 23 10:55:48 CDT CPT-82964 Administration single or combination vaccine inc oral 10 :55:48 CDT CPT-Cryo Cryotherapy 11:18:11 CDT CPT-OV Office Visit 11:18:11 CDT CPT-94136 LS spine AP and Lat 09:05:22 CDT CPT-86408 Bladder Scan 15:42:00 CDT CPT-97354 Cystoscopy 15:42:00 CDT CPT-OV Office Visit 16:37:19 [employer] CPT-58773 Bladder Scan 15:32:10 [employer] CPT-17167 Cystoscopy 15:32:10 [employer] CPT-84919 Abd single AP View 14:05:59 [employer] CPT-07626 Pill cam small bowel 09:48:39 [employer] CPT-80204 Urine Dip (Floor Use Only) 17:17:19 [employer] CPT-88373 Bladder Scan 17:17:19 [employer] CPT-OV Office Visit 11:50:26 [employer] CPT-70735 Bladder Scan 10:10:42 CDT CPT-53098 Venipuncture Draw Fee 09:14:04 CDT CPT-73067 Chest 2V Frontal and Lat 10:10:49 CDT CPT-83441 LS spine comp w obliq 11:50:11 CDT CPT-06931 Venipuncture Draw Fee 08:52:57 [employer] CPT-19746 Cystoscopy W/rem FB 18:37:28 CDT CPT-46258 Abd single AP View 16:18:40 CDT CPT-39073 Abd compl w upright 17:30:59 CDT
--- OUTSIDE RECORDS SUMMARY | 2016-11-22 16:00 | XMS REPORT | Clinical Summary ---
Author Author Admin, QIE Organization [facility] Address Unknown Phone Unavailable Allergies, Adverse Reactions, [...] Iron deficiency 280.9 Active Jasmin Dixon [facility] Iron deficiency anemia, unspecified NAUSEA [...] 1 tab po twice daily FERROUS SULFATE 00124458156 Active Jasmin TEIXEIRA Active D ORAL TABS 2000 iu weekly D ORAL TABS Active Capo Poe MD Active CITALOPRAM HYDROBROMIDE 20 MG TABS 1 tablet by mouth daily CITALOPRAM HYDROBROMIDE 27937589098 Active Capo Poe MD Active CLARITIN 5 MG ORAL CHEW 1 tab po q day LORATADINE 82015377515 Active Felisa TEIXEIRA Active VIIBRYD STARTER PACK 10 & 20 MG ORAL KIT 1 po qd as directed 2015 VILAZODONE HCL 52892357957 No Longer Active Felisa TEIXEIRA Active HYDROXYZINE HCL 25 MG TAB 1 po qHS PRN Insomnia HYDROXYZINE HCL 79183706964 Active Capo Poe MD Active LISINOPRIL 10 MG TABS 1 tablet by mouth daily LISINOPRIL 05474380489 Active Capo Poe MD Active LORTAB 7.5-325 MG ORAL TABS 1 po q 6 hr prn pain HYDROCODONE- ACETAMINOPHEN 74429745646 No Longer Active Capo Poe MD Active FLOMAX 0.4 MG CAPS Take one by mouth daily TAMSULOSIN HCL 96587737289 No Longer Active Capo Poe MD Active TRIAMCINOLONE ACETONIDE 0.1 % CREA Apply to affected areas TID for up to 2 weeks TRIAMCINOLONE ACETONIDE 35657532609 Active Capo Poe MD Active NICOTINE 14 MG/24HR TRANS PT24 Apply/Change q 24hr NICOTINE 29105589327 No Longer Active Capo Poe MD Active TRAMADOL HCL 50 MG TABS 1-2 tablets every 6 hours as needed for pain TRAMADOL HCL 11337388011 No Longer Active Capo Poe MD Active SERTRALINE HCL 100 MG ORAL TABS take 1 tab daily SERTRALINE HCL 89872621446 No Longer Active Capo Poe MD Active LISINOPRIL-HYDROCHLOROTHIAZIDE 10-12.5 MG TABS 0.5 tab by mouth daily LISINOPRIL-HYDROCHLOROTHIAZIDE 09905421476 No Longer Active Capo Poe MD Active OMEPRAZOLE 20 MG CPDR 1 tablet by mouth daily OMEPRAZOLE 77403920770 Active Capo Poe MD Active WELLBUTRIN SR 150 MG ORAL [id number] 1 po BID BUPROPION HCL 45922364600 No Longer Active Capo Poe MD Active MIRALAX PACK 1 po qd PRN Constipation POLYETHYLENE GLYCOL 3350 74337131856 Active Capo Poe MD Active DULERA 100-5 MCG/ACT AERO 2 puffs BID MOMETASONE FURO- FORMOTEROL FUM 65336177311 Active Capo Poe MD Active ZOLOFT 100 MG TABS 1 po daily SERTRALINE HCL 99308280252 No Longer Active Zoran Arzola MD Active FERROUS SULFATE 325 (65 FE) MG TABS 1 tablet by mouth daily FERROUS SULFATE 47654899934 No Longer Active Capo Poe MD Active HYDROCODONE-ACETAMINOPHEN 7.5-300 MG TABS take one every six hours HYDROCODONE-ACETAMINOPHEN 26913227180 No Longer Active Capo Poe MD Active TRIAMCINOLONE ACETONIDE 0.1 % OINT Apply to affected areas TID for up to 2 weeks TRIAMCINOLONE ACETONIDE 42313073226 No Longer Active Joe Vargas RN Active FERROUS SULFATE 325 (65 FE) MG TABS Take one by mouth daily FERROUS SULFATE 26190326543 No Longer Active Capo Poe MD Active TRIAMCINOLONE ACETONIDE 0.1 % OINT Apply to affected areas TID for up to 2 weeks TRIAMCINOLONE ACETONIDE 30127755841 No Longer Active Capo Poe MD Active ADULT ASPIRIN LOW STRENGTH 81 MG TBDP qd ASPIRIN 77535578331 Active Zoran Arzola MD Active ALEVE 220 MG TAB prn NAPROXEN SODIUM 24748797358 Active Capo Poe MD Active MACROBID 100 MG CAP 1 cap by mouth twice daily NITROFURANTOIN MONOHYD MACRO 48063082962 No Longer Active Dona Becker Active AZITHROMYCIN 250 MG TABS 2 po qd x 1 day, then 1 po qd x 4 days AZITHROMYCIN 05830449777 No Longer Active Capo Poe MD Active FISH OIL 500 MG CAPS by mouth twice a day OMEGA-3 FATTY ACIDS 19165260078 Active Capo Poe MD Active FLAXSEED OIL 1000 MG CAPS Take two by mouth daily FLAXSEED (LINSEED) 43002936431 Active Zoran Arzola MD Active RED YEAST RICE 600 MG CAPS Take two by mouth daily RED YEAST RICE EXTRACT 66406165072 Active Zoran Arzola MD Active MULTIVITAMINS CAPS Take one by mouth daily MULTIPLE VITAMIN 60124618148 Active Zoran Arzola MD Active ICAPS MV TABS 2 po daily MULTIPLE VITAMINS-MINERALS 18009276395 Active Jam Arnold DO Active MACROBID 100 MG CAP 1 cap by mouth twice daily MACROBID 100 MG CAP 3149126 NITROFURANTOIN MONOHYD MACRO Inactive FERROUS SULFATE 325 (65 FE) MG TABS Take one by mouth daily FERROUS SULFATE 325 (65 FE) MG TABS 666659 FERROUS SULFATE Inactive HYDROCODONE-ACETAMINOPHEN 7.5-300 MG TABS take one every six hours HYDROCODONE-ACETAMINOPHEN 7.5-300 MG TABS 682499 HYDROCODONE- ACETAMINOPHEN Inactive FERROUS SULFATE 325 (65 FE) MG TABS 1 tablet by mouth daily FERROUS SULFATE 325 (65 FE) MG TABS 262039 FERROUS SULFATE Inactive ZOLOFT 100 MG TABS 1 po daily ZOLOFT 100 MG TABS 954432 SERTRALINE HCL Inactive SERTRALINE HCL 100 MG ORAL TABS take 1 tab daily SERTRALINE HCL 100 MG ORAL TABS 720442 SERTRALINE HCL Inactive TRAMADOL HCL 50 MG TABS 1-2 tablets every 6 hours as needed for pain TRAMADOL HCL 50 MG TABS 911187 TRAMADOL HCL Inactive NICOTINE 14 MG/24HR TRANS PT24 Apply/Change q 24hr NICOTINE 14 MG/24HR TRANS PT24 480220 NICOTINE Inactive FLOMAX 0.4 MG CAPS Take one by mouth daily FLOMAX 0.4 MG CAPS 248298 TAMSULOSIN HCL Inactive LORTAB 7.5-325 MG ORAL TABS 1 po q 6 hr prn pain LORTAB 7.5- 325 MG ORAL TABS 730207 HYDROCODONE-ACETAMINOPHEN Inactive VIIBRYD STARTER PACK 10 & 20 MG ORAL KIT 1 po qd as directed 2015 VIIBRYD STARTER PACK 10 & 20 MG ORAL KIT VILAZODONE HCL Inactive AZITHROMYCIN 250 MG TABS 2 po qd x 1 day, then 1 po qd x 4 days AZITHROMYCIN 250 MG TABS 0062262 AZITHROMYCIN Inactive TRIAMCINOLONE ACETONIDE 0.1 % OINT Apply to affected areas TID for up to 2 weeks TRIAMCINOLONE ACETONIDE 0.1 % OINT 1509167 TRIAMCINOLONE ACETONIDE Inactive TRIAMCINOLONE ACETONIDE 0.1 % OINT Apply to affected areas TID for up to 2 weeks TRIAMCINOLONE ACETONIDE 0.1 % OINT 1636273 TRIAMCINOLONE ACETONIDE Inactive Advance Directives Directive Description [...] ... - Chemistry sodium, serum 141 mmol/L 164-798 8225/01/27 carbon dioxide, venous blood 29.7 mmol/L 21.0-32.0 [...] ... - Chemistry sodium, serum 138 mmol/L 247-324 1157/03/18 carbon dioxide, venous blood 25.5 mmol/L 21.0-32.0 potassium, serum 4.6 mmol/L 3.5-5.2 chloride, serum 101 mmol/L 98-107 blood glucose 129 mg/dL 65-110 urea nitrogen, blood 20 mg/dL 7-18 creatinine, serum 1.87 mg/dL 0.55-1.30 alanine aminotransferase (SGPT), serum 26 U/L 12-78 aspartate aminotransferase (SGOT), serum 20 U/L 15-37 calcium, serum 8.8 mg/dL 8.5-10.1 bilirubin, serum, total 0.40 mg/dL 0.00-1.00 cholesterol, serum 251 mg/dL 216-806 1612/03/18 triglyceride, serum, fasting 135 mg/dL 30-200 HDL [...] 0-19 Encounters Code Encounter Date Provider Facility CPT-76947 Level 4 Est. Patient 09:26:11 [employer] Capo Poe MD [facility] CPT-53976 Level 4 Est. Patient 08:53:08 CDT Capo Poe MD [facility] CPT-03047 Level 4 Est. Patient 10:22:57 CDT Capo Poe MD [facility] CPT-43552 Level 4 Est. Patient 13:44:30 CDT Capo Poe MD [facility] CPT-71835 Level 3 Est. Patient 14:59:32 [employer] Capo Poe MD [facility] CPT-47861 Level 4 Est. Patient 10:46:15 [employer] Capo Poe MD [facility] CPT-03581 Level 3 Est. Patient 11:00:53 CDT Capo Poe MD [facility] CPT-40118 Level 3 Est. Patient 09:39:35 CDT Capo Poe MD [facility] CPT-82846 Level 3 Est. Patient 09:27:01 CDT Capo Poe MD [facility] CPT-80462 Level 3 Est. Patient 18:37:08 CDT Zoran Arzola MD [facility] CPT-14891 Level 3 Est. Patient 15:00:28 CDT Capo Poe MD [facility] CPT-78075 Level 3 Est. Patient 08:20:19 CDT Zoran Arzola MD [facility] CPT-28704 Level 3 Est. Patient 09:22:21 CDT Capo Poe MD [facility] CPT-62883 Level 4 Est. Patient 10:21:30 [employer] Capo Poe MD [facility] CPT-18031 Level 3 Est. Patient 17:08:51 [employer] Zoran Arzola MD [facility] CPT-68474 Level 4 Est. Patient 09:44:42 CDT Capo Poe MD [facility] CPT-48137 Level 4 Est. Patient 10:39:29 CDT Capo Poe MD [facility] CPT-49725 Level 3 Est. Patient 17:45:23 CDT Zoran Arzola MD [facility] CPT-93442 Level 4 Est. Patient 08:50:44 CDT Capo Poe MD [facility] CPT-61257 Level 3 Est. Patient 10:39:51 [employer] Capo Poe MD [facility] CPT-77775 Level 4 Est. Patient 09:44:24 [employer] Capo Poe MD [facility] CPT-04394 Level 3 Est. Patient 14:48:42 [employer] Zoran Arzola MD [facility] CPT-74731 Level 4 Est. Patient 10:24:02 CDT Capo Poe MD [facility] CPT-44996 Level 3 Est. Patient 15:42:00 CDT Maya DUKES [facility] CPT-82489 Level 4 Est. Patient 13:34:15 CDT Capo Poe MD [facility] CPT-32886 Level 3 Est. Patient 15:32:10 [employer] Zoran Arzola MD [facility] CPT-67701 Level 3 New Patient 17:17:19 [employer] Zoran Arzola MD [facility] CPT-93093 Level 4 Est. Patient 10:25:01 [employer] Capo Poe MD [facility] CPT-81904 Level 3 Est. Patient 10:10:42 CDT Zoran Arzola MD [facility] CPT-90170 Level 3 Est. Patient 22:30:02 CDT Zoran Arzola MD [facility] CPT-04326 Level 4 Est. Patient 09:54:20 CDT Capo Poe MD [facility] CPT-50755 Level 3 Est. Patient 10:48:30 CDT Capo Poe MD [facility] CPT-40161 Level 3 Est. Patient 11:24:45 CDT Capo Poe MD [facility] CPT-17947 Level 3 Est. Patient 15:23:48 [employer] Capo Poe MD [facility] CPT-11702 Level 3 Est. Patient 15:10:03 [employer] Capo Poe MD [facility] CPT-98902 Level 3 Est. Patient 16:18:40 CDT Zoran Arzola MD [facility] Procedures Code Procedure Name Date Entry Date Standard Description CPT-34115 Hemoccult IFOBT - LAB USE ONLY 14:11:43 [employer] CPT-11199 TPSA - LAB USE ONLY 10:37:52 [employer] CPT-83315 TSH - LAB USE ONLY 10:37:51 [employer] CPT-31941 CMP - LAB USE ONLY 10:37:51 [employer] CPT-91911 CBC with Diff - LAB USE ONLY 10:37:51 [employer] CPT-28336 Venipuncture Draw Fee 10:37:51 [employer] CPT-000 Give Pneumovax 10:39:30 CDT CPT-76854 Venipuncture Draw Fee 09:32:34 CDT CPT-G0438 Initial Annual Wellness Exam 10:24:35 CDT CPT-93800 Venipuncture Draw Fee 09:46:29 CDT CPT-05480 Venipuncture Draw Fee 14:30:06 CDT CPT-82826 Venipuncture Draw Fee 10:58:22 CDT CPT-42431 Abd single AP View 08:32:00 CDT CPT-57373 Postop F/U Visit 21:13:08 CDT CPT-09247 Abd single AP View 15:50:24 CDT CPT-02564 Cystoscopy W/rem FB 15:21:28 CDT CPT-92363 Abd single AP View 14:06:45 CDT CPT-70744 Postop F/U Visit 09:48:32 CDT CPT-38490 Abd single AP View 13:58:26 CDT CPT-53733 Hip comp min 2V 10:27:18 [employer] CPT-06661 Urine Dip (Floor Use Only) 13:41:01 [employer] CPT-57205 Postop F/U Visit 11:17:48 CDT CPT-LR Lesion Removal 11:50:22 CDT CPT-OV Office Visit 11:50:22 CDT CPT-12869 Pneumovax 23 10:55:48 CDT CPT-45839 Administration single or combination vaccine inc oral 10 :55:48 CDT CPT-Cryo Cryotherapy 11:18:11 CDT CPT-OV Office Visit 11:18:11 CDT CPT-43924 LS spine AP and Lat 09:05:22 CDT CPT-33686 Bladder Scan 15:42:00 CDT CPT-07868 Cystoscopy 15:42:00 CDT CPT-OV Office Visit 16:37:19 [employer] CPT-91239 Bladder Scan 15:32:10 [employer] CPT-70945 Cystoscopy 15:32:10 [employer] CPT-43962 Abd single AP View 14:05:59 [employer] CPT-35787 Pill cam small bowel 09:48:39 [employer] CPT-38445 Urine Dip (Floor Use Only) 17:17:19 [employer] CPT-67172 Bladder Scan 17:17:19 [employer] CPT-OV Office Visit 11:50:26 [employer] CPT-01437 Bladder Scan 10:10:42 CDT CPT-57872 Venipuncture Draw Fee 09:14:04 CDT CPT-37317 Chest 2V Frontal and Lat 10:10:49 CDT CPT-13426 LS spine comp w obliq 11:50:11 CDT CPT-56254 Venipuncture Draw Fee 08:52:57 [employer] CPT-99999 Cystoscopy W/rem FB 18:37:28 CDT CPT-91484 Abd single AP View 16:18:40 CDT CPT-89678 Abd compl w upright 17:30:59 CDT
--- OUTSIDE RECORDS SUMMARY | 2016-11-22 16:01 | XMS REPORT | Clinical Summary ---
Author Author Admin, MARGE Organization [facility] Address Unknown Phone Unavailable Allergies, Adverse [...] 2 puffs BID MOMETASONE FURO- FORMOTEROL FUM 61296169716 Active Capo Poe MD Active SERTRALINE HCL 100 MG ORAL TABS take 1 tab daily SERTRALINE HCL 92973120170 Active Capo Poe MD Active ZOLOFT 100 MG TABS 1 po daily SERTRALINE HCL 06136229059 No Longer Active Zoran Arzola MD Active FERROUS SULFATE 325 (65 FE) MG TABS 1 tablet by mouth daily FERROUS SULFATE 60183851085 No Longer Active Capo Poe MD Active TRAMADOL HCL 50 MG TABS 1-2 tablets every 6 hours as needed for pain TRAMADOL HCL 11587360767 Active Capo Poe MD Active HYDROCODONE-ACETAMINOPHEN 7.5-300 MG TABS take one every six hours HYDROCODONE-ACETAMINOPHEN 14905238130 No Longer Active Capo Poe MD Active TRIAMCINOLONE ACETONIDE 0.1 % OINT Apply to affected areas TID for up to 2 weeks TRIAMCINOLONE ACETONIDE 74474824772 No Longer Active Joe Vargas RN Active FERROUS SULFATE 325 (65 FE) MG TABS Take one by mouth daily FERROUS SULFATE 09524386986 No Longer Active Capo Poe MD Active TRIAMCINOLONE ACETONIDE 0.1 % OINT Apply to affected areas TID for up to 2 weeks TRIAMCINOLONE ACETONIDE 54913812772 No Longer Active Capo Poe MD Active ADULT ASPIRIN LOW STRENGTH 81 MG TBDP qd ASPIRIN 27889705230 Active Zoran Arzola MD Active ALEVE 220 MG TAB prn NAPROXEN SODIUM 05038061995 Active Capo Poe MD Active LISINOPRIL-HYDROCHLOROTHIAZIDE 10-12.5 MG TABS 1 tab by mouth daily LISINOPRIL-HYDROCHLOROTHIAZIDE 53944699321 Active Capo Poe MD Active MACROBID 100 MG CAP 1 cap by mouth twice daily NITROFURANTOIN MONOHYD MACRO 55809069882 No Longer Active Dona Becker Active AZITHROMYCIN 250 MG TABS 2 po qd x 1 day, then 1 po qd x 4 days AZITHROMYCIN 08487932746 No Longer Active Capo Poe MD Active FISH OIL 500 MG CAPS by mouth twice a day OMEGA-3 FATTY ACIDS 72577917334 Active Capo Poe MD Active FLAXSEED OIL 1000 MG CAPS Take two by mouth daily FLAXSEED (LINSEED) 41749550840 Active Zoran Arzola MD Active RED YEAST RICE 600 MG CAPS Take two by mouth daily RED YEAST RICE EXTRACT 32948890409 Active Zoran Arzola MD Active MULTIVITAMINS CAPS Take one by mouth daily MULTIPLE VITAMIN 92850408621 Active Zoran Arzola MD Active ICAPS MV TABS 2 po daily MULTIPLE VITAMINS-MINERALS 61193159668 Active Jam Arnold DO Active MACROBID 100 MG CAP 1 cap by mouth twice daily MACROBID 100 MG CAP 663808 NITROFURANTOIN MONOHYD MACRO Inactive FERROUS SULFATE 325 (65 FE) MG TABS Take one by mouth daily FERROUS SULFATE 325 (65 FE) MG TABS 507100 FERROUS SULFATE Inactive HYDROCODONE-ACETAMINOPHEN 7.5-300 MG TABS take one every six hours HYDROCODONE-ACETAMINOPHEN 7.5-300 MG TABS 085725 HYDROCODONE- ACETAMINOPHEN Inactive FERROUS SULFATE 325 (65 FE) MG TABS 1 tablet by mouth daily FERROUS SULFATE 325 (65 FE) MG TABS 770919 FERROUS SULFATE Inactive ZOLOFT 100 MG TABS 1 po daily ZOLOFT 100 MG TABS 068866 SERTRALINE HCL Inactive AZITHROMYCIN 250 MG TABS 2 po qd x 1 day, then 1 po qd x 4 days AZITHROMYCIN 250 MG TABS 9155106 AZITHROMYCIN Inactive TRIAMCINOLONE ACETONIDE 0.1 % OINT Apply to affected areas TID for up to 2 weeks TRIAMCINOLONE ACETONIDE 0.1 % OINT 6565341 TRIAMCINOLONE ACETONIDE Inactive TRIAMCINOLONE ACETONIDE 0.1 % OINT Apply to affected areas TID for up to 2 weeks TRIAMCINOLONE ACETONIDE 0.1 % OINT 1381281 TRIAMCINOLONE ACETONIDE Inactive Advance Directives Directive Description [...] E&M - 3141-9 142 [lb_av] Weight Measured Diagnostic Results Date Name Value Unit Range Description Chart Maintenance: Outside labs entered on [employer] - Chemistry sodium, serum 137 mmol/L potassium, [...] CBC - Chemistry cholesterol, serum 207 mg/dL 442-348 4963/02/11 triglyceride, serum, fasting 74 mg/dL 30-200 HDL cholesterol, serum 62 mg/dL 32-96 LDL cholesterol, serum 130 mg/dL 0-130 sodium, serum 144 mmol/L 386-374 3531/02/11 potassium, serum 5.0 mmol/L 3.5-5.2 chloride, serum [...] negative Encounters Code Encounter Date Provider Facility CPT-99344 Level 3 Est. Patient 08:20:19 CDT Zoran Arzola MD [facility] CPT-93555 Level 3 Est. Patient 09:22:21 CDT Capo Poe MD [facility] CPT-61287 Level 4 Est. Patient 10:21:30 COMMUNICATIONS FIELD TECHNICIAN Capo Poe MD [facility] CPT-99304 Level 3 Est. Patient 17:08:51 COMMUNICATIONS FIELD TECHNICIAN Zoran Arzola MD [facility] CPT-94881 Level 4 Est. Patient 09:44:42 CDT Capo Poe MD [facility] CPT-89842 Level 4 Est. Patient 10:39:29 CDT Capo Poe MD [facility] CPT-77549 Level 3 Est. Patient 17:45:23 CDT Zoran Arzola MD [facility] CPT-71631 Level 4 Est. Patient 08:50:44 CDT Capo Poe MD [facility] CPT-74220 Level 3 Est. Patient 10:39:51 COMMUNICATIONS FIELD TECHNICIAN Capo Poe MD [facility] CPT-32498 Level 4 Est. Patient 09:44:24 COMMUNICATIONS FIELD TECHNICIAN Capo Poe MD [facility] CPT-81771 Level 3 Est. Patient 14:48:42 COMMUNICATIONS FIELD TECHNICIAN Zoran Arzola MD [facility] CPT-93262 Level 4 Est. Patient 10:24:02 CDT Capo Poe MD [facility] CPT-40598 Level 3 Est. Patient 15:42:00 CDT Maya DUKES [facility] CPT-02799 Level 4 Est. Patient 13:34:15 CDT Capo Poe MD [facility] CPT-88172 Level 3 Est. Patient 15:32:10 COMMUNICATIONS FIELD TECHNICIAN Zoran Arzola MD [facility] CPT-38788 Level 3 New Patient 17:17:19 COMMUNICATIONS FIELD TECHNICIAN Zoran Arzola MD [facility] CPT-30596 Level 4 Est. Patient 10:25:01 COMMUNICATIONS FIELD TECHNICIAN Capo Poe MD [facility] CPT-88448 Level 3 Est. Patient 10:10:42 CDT Zoran Arzola MD [facility] CPT-47146 Level 3 Est. Patient 22:30:02 CDT Zoran Arzola MD [facility] CPT-55856 Level 4 Est. Patient 09:54:20 CDT Capo Poe MD [facility] CPT-45492 Level 3 Est. Patient 10:48:30 CDT Capo Poe MD [facility] CPT-58656 Level 3 Est. Patient 11:24:45 CDT Capo Poe MD [facility] CPT-68376 Level 3 Est. Patient 15:23:48 COMMUNICATIONS FIELD TECHNICIAN Capo Poe MD [facility] CPT-70590 Level 3 Est. Patient 15:10:03 COMMUNICATIONS FIELD TECHNICIAN Capo Poe MD [facility] CPT-58603 Level 3 Est. Patient 16:18:40 CDT Zoran Arzola MD [facility] Procedures Code Procedure Name Date Entry Date Standard Description CPT-78003 Postop F/U Visit 21:13:08 CDT CPT-17564 Abd single AP View 15:50:24 CDT CPT-23843 Cystoscopy W/rem FB 15:21:28 CDT CPT-38121 Abd single AP View 14:06:45 CDT CPT-22843 Postop F/U Visit 09:48:32 CDT CPT-28060 Abd single AP View 13:58:26 CDT CPT-47890 Hip comp min 2V 10:27:18 COMMUNICATIONS FIELD TECHNICIAN CPT-38402 Urine Dip (Floor Use Only) 13:41:01 COMMUNICATIONS FIELD TECHNICIAN CPT-81826 Postop F/U Visit 11:17:48 CDT CPT-LR Lesion Removal 11:50:22 CDT CPT-OV Office Visit 11:50:22 CDT CPT-30751 Pneumovax 23 10:55:48 CDT CPT-44445 Administration single or combination vaccine inc oral 10 :55:48 CDT CPT-Cryo Cryotherapy 11:18:11 CDT CPT-OV Office Visit 11:18:11 CDT CPT-55585 LS spine AP and Lat 09:05:22 CDT CPT-66684 Bladder Scan 15:42:00 CDT CPT-23188 Cystoscopy 15:42:00 CDT CPT-OV Office Visit 16:37:19 COMMUNICATIONS FIELD TECHNICIAN CPT-99382 Bladder Scan 15:32:10 COMMUNICATIONS FIELD TECHNICIAN CPT-75653 Cystoscopy 15:32:10 COMMUNICATIONS FIELD TECHNICIAN CPT-17333 Abd single AP View 14:05:59 COMMUNICATIONS FIELD TECHNICIAN CPT-52059 Pill cam small bowel 09:48:39 COMMUNICATIONS FIELD TECHNICIAN CPT-34689 Urine Dip (Floor Use Only) 17:17:19 COMMUNICATIONS FIELD TECHNICIAN CPT-77904 Bladder Scan 17:17:19 COMMUNICATIONS FIELD TECHNICIAN CPT-OV Office Visit 11:50:26 COMMUNICATIONS FIELD TECHNICIAN CPT-95703 Bladder Scan 10:10:42 CDT CPT-18554 Venipuncture Draw Fee 09:14:04 CDT CPT-54903 Chest 2V Frontal and Lat 10:10:49 CDT CPT-71062 LS spine comp w obliq 11:50:11 CDT CPT-31457 Venipuncture Draw Fee 08:52:57 COMMUNICATIONS FIELD TECHNICIAN CPT-49849 Cystoscopy W/rem FB 18:37:28 CDT CPT-93565 Abd single AP View 16:18:40 CDT CPT-21902 Abd compl w upright 17:30:59 CDT
--- OUTSIDE RECORDS SUMMARY | 2016-11-22 16:01 | XMS REPORT ---
Author Author [facility] Medical Staff Organization [facility] Address [address] [place], [place] [id number] Phone [phone] Summary purpose TRANSITION OF CARE AUTO GENERATION [...] Allergen Category Ingredient Status Reaction Severity Onset Dpogtdb-Wja-Afd Reductase Inhibitors Drug Allergy Hmgzbvh-Lrr-Adc Reductase Inhibitors Confirmed or Verified BACK PAIN morphine Drug Allergy morphine Confirmed or Verified Swelling Mild Adult Nitrofurantoin Drug Allergy Nitrofurantoin Confirmed or Verified Immunizations No immunizations recorded for this patient visit Relevant diagnostic tests and/or laboratory data No authorized results are available for this patient visit History of procedures Procedure Code Code Type Description Date Performed Performing Physician 16487 CPT-4 PT RE-EVALUATION 07-29-2015 SHAWN GRIFFIN 90466 CPT-4 MECHANICAL TRACTION THERAPY 08-02-2015 SHAWN GRIFFIN 47228 CPT-4 MECHANICAL TRACTION THERAPY 08-04-2015 SHAWN GRIFFIN 93272 CPT-4 MECHANICAL TRACTION THERAPY 08-06-2015 SHAWN GRIFFIN 83655 CPT-4 THERAPEUTIC EXERCISES 07-29-2015 SHAWN GRIFFIN G0283 CPT-4 ELEC STIM OTHER THAN WOUND 08-06-2015 SHAWN GRIFFIN G8978 CPT-4 MOBILITY CURRENT STATUS 07-29-2015 SHAWN GRIFFIN G8979 CPT-4 MOBILITY GOAL STATUS 07-29-2015 SHAWN GRIFFIN Functional status No functional or cognitive status [...]
--- OUTSIDE RECORDS SUMMARY | 2016-11-22 16:02 | XMS REPORT | Clinical Summary ---
Author Author Admin, MARGE Organization [facility] Address Unknown Phone Unavailable Allergies, Adverse [...] Calculus of kidney URETERAL CALCULUS 592.1 Resolved Caop Poe MD Calculus of ureter FLANK PAIN [...] MD Benign essential hypertension Hypertension 401.9 Active aCpo Poe MD Unspecified essential hypertension HEALTH SCREENING [...] Chronic obstructive pulmonary disease 496 Active Capo Peo MD Chronic airway obstruction, not elsewhere classified [...] Capo Poe MD RENAL CALCULUS ICD-592.9 Inactive Caop Poe MD FLANK PAIN, RIGHT ICD-789.09 Inactive [...] OTHER NONSPECIFIC SKIN ERUPTION ICD-782.1 Inactive Capo Peo MD Near syncope ICD-780.2 Inactive Capo Poe MD Skin lesion ICD-709.9 Inactive Capo Poe MD Ecchymoses, spontaneous ICD-782.7 Inactive Capo Poe MD Lumbar radiculopathy ICD-724.4 Inactive 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 Inactive Capo Poe MD UTI ICD-599.0 Inactive Capo Poe MD Hematuria ICD-599.70 Clyde Poe MD Sciatica, right ICD-724.3 Inactive Capo oPe MD Renal Calculus ICD-592.9 Inactive Capo Poe MD Urethral calculus ICD-594.2 Inactive Capo Poe MD Chest pain ICD-786.50 Inactive Capo Poe MD Prostate cancer screening ICD-V76.44 Inactive Capo Poe MD Medication List Medication Instructions Start Date Stop Date Generic Name NDC Status Provider Patient Instruction HYDROXYZINE HCL 25 MG TAB 0.5 to 1 po q6hr PRN Itching HYDROXYZINE HCL 84522898091 Active Capo Poe MD Active TRIAMCINOLONE ACETONIDE 0.1 % CREA Apply to affected areas TID for up to 2 weeks TRIAMCINOLONE ACETONIDE 17214776769 Active Capo Poe MD Active NICOTINE 14 MG/24HR TRANS PT24 Apply/Change q 24hr NICOTINE 88877894725 No Longer Active Capo Poe MD Active TRAMADOL HCL 50 MG TABS 1-2 tablets every 6 hours as needed for pain TRAMADOL HCL 51207315282 No Longer Active Capo Poe MD Active SERTRALINE HCL 100 MG ORAL TABS take 1 tab daily SERTRALINE HCL 86693895885 No Longer Active Capo Poe MD Active LISINOPRIL-HYDROCHLOROTHIAZIDE 10-12.5 MG TABS 0.5 tab by mouth daily LISINOPRIL-HYDROCHLOROTHIAZIDE 44181126706 Active Capo Poe MD Active OMEPRAZOLE 20 MG CPDR 1 tablet by mouth daily OMEPRAZOLE 30162509452 Active Capo Poe MD Active WELLBUTRIN SR 150 MG ORAL [id number] 1 po BID BUPROPION HCL 90419090666 Active Capo Poe MD Active LORTAB 7.5-325 MG ORAL TABS 1 po q 6 hr prn pain HYDROCODONE- ACETAMINOPHEN 57320793414 Active Capo Poe MD Active FLOMAX 0.4 MG CAPS Take one by mouth daily TAMSULOSIN HCL 08209301214 Active Capo Poe MD Active MIRALAX PACK 1 po qd PRN Constipation POLYETHYLENE GLYCOL 3350 78332729776 Active Capo Poe MD Active DULERA 100-5 MCG/ACT AERO 2 puffs BID MOMETASONE FURO- FORMOTEROL FUM 23209481795 Active Capo Poe MD Active ZOLOFT 100 MG TABS 1 po daily SERTRALINE HCL 55843527811 No Longer Active Zoran Arzola MD Active FERROUS SULFATE 325 (65 FE) MG TABS 1 tablet by mouth daily FERROUS SULFATE 45272432450 No Longer Active Capo Poe MD Active HYDROCODONE-ACETAMINOPHEN 7.5-300 MG TABS take one every six hours HYDROCODONE-ACETAMINOPHEN 88757814999 No Longer Active Capo Poe MD Active TRIAMCINOLONE ACETONIDE 0.1 % OINT Apply to affected areas TID for up to 2 weeks TRIAMCINOLONE ACETONIDE 63481219631 No Longer Active Joe Vargas RN Active FERROUS SULFATE 325 (65 FE) MG TABS Take one by mouth daily FERROUS SULFATE 62367027790 No Longer Active Capo Poe MD Active TRIAMCINOLONE ACETONIDE 0.1 % OINT Apply to affected areas TID for up to 2 weeks TRIAMCINOLONE ACETONIDE 86612302688 No Longer Active Capo Poe MD Active ADULT ASPIRIN LOW STRENGTH 81 MG TBDP qd ASPIRIN 84407152828 Active Zoran Arzola MD Active ALEVE 220 MG TAB prn NAPROXEN SODIUM 15482014459 Active Capo Poe MD Active MACROBID 100 MG CAP 1 cap by mouth twice daily NITROFURANTOIN MONOHYD MACRO 15468589833 No Longer Active Dona Becker Active AZITHROMYCIN 250 MG TABS 2 po qd x 1 day, then 1 po qd x 4 days AZITHROMYCIN 76962791873 No Longer Active Capo Poe MD Active FISH OIL 500 MG CAPS by mouth twice a day OMEGA-3 FATTY ACIDS 93854088199 Active Capo Poe MD Active FLAXSEED OIL 1000 MG CAPS Take two by mouth daily FLAXSEED (LINSEED) 98666789287 Active Zoran Arzola MD Active RED YEAST RICE 600 MG CAPS Take two by mouth daily RED YEAST RICE EXTRACT 35537617674 Active Zoran Arzola MD Active MULTIVITAMINS CAPS Take one by mouth daily MULTIPLE VITAMIN 53643996834 Active Zoran Arzola MD Active ICAPS MV TABS 2 po daily MULTIPLE VITAMINS-MINERALS 67383019921 Active Jam Arnold DO Active MACROBID 100 MG CAP 1 cap by mouth twice daily MACROBID 100 MG CAP 5505060 NITROFURANTOIN MONOHYD MACRO Inactive FERROUS SULFATE 325 (65 FE) MG TABS Take one by mouth daily FERROUS SULFATE 325 (65 FE) MG TABS 458690 FERROUS SULFATE Inactive HYDROCODONE-ACETAMINOPHEN 7.5-300 MG TABS take one every six hours HYDROCODONE-ACETAMINOPHEN 7.5-300 MG TABS 788417 HYDROCODONE- ACETAMINOPHEN Inactive FERROUS SULFATE 325 (65 FE) MG TABS 1 tablet by mouth daily FERROUS SULFATE 325 (65 FE) MG TABS 805329 FERROUS SULFATE Inactive ZOLOFT 100 MG TABS 1 po daily ZOLOFT 100 MG TABS 592620 SERTRALINE HCL Inactive SERTRALINE HCL 100 MG ORAL TABS take 1 tab daily SERTRALINE HCL 100 MG ORAL TABS 078893 SERTRALINE HCL Inactive TRAMADOL HCL 50 MG TABS 1-2 tablets every 6 hours as needed for pain TRAMADOL HCL 50 MG TABS 132849 TRAMADOL HCL Inactive NICOTINE 14 MG/24HR TRANS PT24 Apply/Change q 24hr NICOTINE 14 MG/24HR TRANS PT24 388702 NICOTINE Inactive AZITHROMYCIN 250 MG TABS 2 po qd x 1 day, then 1 po qd x 4 days AZITHROMYCIN 250 MG TABS 8088266 AZITHROMYCIN Inactive TRIAMCINOLONE ACETONIDE 0.1 % OINT Apply to affected areas TID for up to 2 weeks TRIAMCINOLONE ACETONIDE 0.1 % OINT 7518081 TRIAMCINOLONE ACETONIDE Inactive TRIAMCINOLONE ACETONIDE 0.1 % OINT Apply to affected areas TID for up to 2 weeks TRIAMCINOLONE ACETONIDE 0.1 % OINT 4687317 TRIAMCINOLONE ACETONIDE Inactive Advance Directives Directive Description [...] Panel - Chemistry sodium, serum 139 mmol/L 766-598 8185/07/30 potassium, serum 4.7 mmol/L 3.5-5.2 chloride, serum 101 mmol/L 98-107 carbon dioxide, venous blood 34.8 mmol/L 21.0-32.0 blood glucose 124 mg/dL 65-110 calcium, serum 8.9 mg/dL 8.5-10.1 urea nitrogen, blood 18 mg/dL 7-18 creatinine, serum 1.40 mg/dL 0.60-1.30 Lab Report: Comp. Metabolic Panel, Lipid Panel, HGBA1C, CBC, MICROALB/CR ... - Chemistry sodium, serum 138 mmol/L 773-374 9157/03/18 carbon dioxide, venous blood 25.5 mmol/L 21.0-32.0 potassium, serum 4.6 mmol/L 3.5-5.2 chloride, serum 101 mmol/L 98-107 blood glucose 129 mg/dL 65-110 urea nitrogen, blood 20 mg/dL 7-18 creatinine, serum 1.87 mg/dL 0.55-1.30 alanine aminotransferase (SGPT), serum 26 U/L 12-78 aspartate aminotransferase (SGOT), serum 20 U/L 15-37 calcium, serum 8.8 mg/dL 8.5-10.1 bilirubin, serum, total 0.40 mg/dL 0.00-1.00 cholesterol, serum 251 mg/dL 088-330 2720/03/18 triglyceride, serum, fasting 135 mg/dL 30-200 HDL [...] negative Encounters Code Encounter Date Provider Facility CPT-54227 Level 3 Est. Patient 14:59:32 RUBBER FLAP CUTTER Capo Poe MD [facility] CPT-92887 Level 4 Est. Patient 10:46:15 RUBBER FLAP CUTTER Capo Poe MD [facility] CPT-77949 Level 3 Est. Patient 11:00:53 CDT Capo Poe MD [facility] CPT-99255 Level 3 Est. Patient 09:39:35 CDT Capo Poe MD [facility] CPT-86567 Level 3 Est. Patient 09:27:01 CDT Capo Poe MD [facility] CPT-27703 Level 3 Est. Patient 18:37:08 CDT Zoran Arzola MD [facility] CPT-16603 Level 3 Est. Patient 15:00:28 CDT Capo Poe MD [facility] CPT-24327 Level 3 Est. Patient 08:20:19 CDT Zoran Arzola MD [facility] CPT-38391 Level 3 Est. Patient 09:22:21 CDT Capo Poe MD [facility] CPT-21534 Level 4 Est. Patient 10:21:30 RUBBER FLAP CUTTER Capo Poe MD [facility] CPT-13893 Level 3 Est. Patient 17:08:51 RUBBER FLAP CUTTER Zoran Arzola MD [facility] CPT-73464 Level 4 Est. Patient 09:44:42 CDT Capo Poe MD [facility] CPT-09249 Level 4 Est. Patient 10:39:29 CDT Capo Poe MD [facility] CPT-24780 Level 3 Est. Patient 17:45:23 CDT Zoran Arzola MD [facility] CPT-68218 Level 4 Est. Patient 08:50:44 CDT Capo Poe MD [facility] CPT-89626 Level 3 Est. Patient 10:39:51 RUBBER FLAP CUTTER Capo Poe MD [facility] CPT-69480 Level 4 Est. Patient 09:44:24 RUBBER FLAP CUTTER Capo Poe MD [facility] CPT-66650 Level 3 Est. Patient 14:48:42 RUBBER FLAP CUTTER Zoran Arzola MD [facility] CPT-80446 Level 4 Est. Patient 10:24:02 CDT Capo Poe MD [facility] CPT-73451 Level 3 Est. Patient 15:42:00 CDT Maya Brownlee ERNST [facility] CPT-11063 Level 4 Est. Patient 13:34:15 CDT Capo Poe MD [facility] CPT-65851 Level 3 Est. Patient 15:32:10 RUBBER FLAP CUTTER Zoran Arzola MD [facility] CPT-21219 Level 3 New Patient 17:17:19 RUBBER FLAP CUTTER Zoran Arzola MD [facility] CPT-22344 Level 4 Est. Patient 10:25:01 RUBBER FLAP CUTTER Capo Poe MD [facility] CPT-37485 Level 3 Est. Patient 10:10:42 CDT Zoran Arzola MD [facility] CPT-79601 Level 3 Est. Patient 22:30:02 CDT Zoran Arzola MD [facility] CPT-67821 Level 4 Est. Patient 09:54:20 CDT Capo Poe MD [facility] CPT-37382 Level 3 Est. Patient 10:48:30 CDT Capo Poe MD [facility] CPT-92617 Level 3 Est. Patient 11:24:45 CDT Capo Poe MD [facility] CPT-65153 Level 3 Est. Patient 15:23:48 RUBBER FLAP CUTTER Capo Poe MD [facility] CPT-97303 Level 3 Est. Patient 15:10:03 RUBBER FLAP CUTTER Capo Poe MD [facility] CPT-70423 Level 3 Est. Patient 16:18:40 CDT Zoran Arzola MD [facility] Procedures Code Procedure Name Date Entry Date Standard Description CPT-93803 Venipuncture Draw Fee 09:46:29 CDT CPT-12151 Venipuncture Draw Fee 14:30:06 CDT CPT-54565 Venipuncture Draw Fee 10:58:22 CDT CPT-55342 Abd single AP View 08:32:00 CDT CPT-10188 Postop F/U Visit 21:13:08 CDT CPT-80722 Abd single AP View 15:50:24 CDT CPT-47855 Cystoscopy W/rem FB 15:21:28 CDT CPT-75149 Abd single AP View 14:06:45 CDT CPT-40846 Postop F/U Visit 09:48:32 CDT CPT-99043 Abd single AP View 13:58:26 CDT CPT-86285 Hip comp min 2V 10:27:18 RUBBER FLAP CUTTER CPT-83354 Urine Dip (Floor Use Only) 13:41:01 RUBBER FLAP CUTTER CPT-59394 Postop F/U Visit 11:17:48 CDT CPT-LR Lesion Removal 11:50:22 CDT CPT-OV Office Visit 11:50:22 CDT CPT-91824 Pneumovax 23 10:55:48 CDT CPT-63067 Administration single or combination vaccine inc oral 10 :55:48 CDT CPT-Cryo Cryotherapy 11:18:11 CDT CPT-OV Office Visit 11:18:11 CDT CPT-43105 LS spine AP and Lat 09:05:22 CDT CPT-64584 Bladder Scan 15:42:00 CDT CPT-47646 Cystoscopy 15:42:00 CDT CPT-OV Office Visit 16:37:19 RUBBER FLAP CUTTER CPT-45216 Bladder Scan 15:32:10 RUBBER FLAP CUTTER CPT-95117 Cystoscopy 15:32:10 RUBBER FLAP CUTTER CPT-08219 Abd single AP View 14:05:59 RUBBER FLAP CUTTER CPT-19144 Pill cam small bowel 09:48:39 RUBBER FLAP CUTTER CPT-28867 Urine Dip (Floor Use Only) 17:17:19 RUBBER FLAP CUTTER CPT-03092 Bladder Scan 17:17:19 RUBBER FLAP CUTTER CPT-OV Office Visit 11:50:26 RUBBER FLAP CUTTER CPT-56884 Bladder Scan 10:10:42 CDT CPT-74634 Venipuncture Draw Fee 09:14:04 CDT CPT-48154 Chest 2V Frontal and Lat 10:10:49 CDT CPT-48921 LS spine comp w obliq 11:50:11 CDT CPT-03236 Venipuncture Draw Fee 08:52:57 RUBBER FLAP CUTTER CPT-53458 Cystoscopy W/rem FB 18:37:28 CDT CPT-06497 Abd single AP View 16:18:40 CDT CPT-19170 Abd compl w upright 17:30:59 CDT
--- OUTSIDE RECORDS SUMMARY | 2016-11-22 16:03 | XMS REPORT | Clinical Summary ---
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 Simin [...] MG TABS 1 daily for infection LEVOFLOXACIN 77747697606 Active Leanna Baker APRN Active AZITHROMYCIN 250 MG ORAL TABS 2 po qd x 1, then 1 po qd x 4 AZITHROMYCIN 64223368622 Active Capo Poe MD Active PREDNISONE 20 MG ORAL TABS 2 po qd x 5 days PREDNISONE 56124098341 No Longer Active Capo Poe MD Active CARAFATE 1 GM ORAL TABS 1 tid SUCRALFATE 96511490746 Active Capo Poe MD Active RANITIDINE HCL 150 MG ORAL TABS 1 bid RANITIDINE HCL 64366357626 Active Capo Poe MD Active MULTIVITAMINS CAPS Take one by mouth daily MULTIPLE VITAMIN 54017730732 No Longer Active Capo Poe MD Active LISINOPRIL 10 MG TABS 1 tablet by mouth daily LISINOPRIL 82701367619 No Longer Active Capo Poe MD Active EQL IRON SUPPLEMENT THERAPY 325 MG ORAL TABS 1 tab po twice daily FERROUS SULFATE 08098837773 Active Jasmin Arboledalas RMA Active D ORAL TABS 2000 iu weekly D ORAL TABS Active Capo Poe MD Active CITALOPRAM HYDROBROMIDE 20 MG TABS 1 tablet by mouth daily CITALOPRAM HYDROBROMIDE 42819492045 Active Capo Poe MD Active CLARITIN 5 MG ORAL CHEW 1 tab po q day LORATADINE 17700347297 Active Felisa Daphney RMA Active VIIBRYD STARTER PACK 10 & 20 MG ORAL KIT 1 po qd as directed 2015 VILAZODONE HCL 17821007250 No Longer Active Felisa Daphney RMA Active HYDROXYZINE HCL 25 MG TAB 1 po qHS PRN Insomnia HYDROXYZINE HCL 57763337515 Active Capo Poe MD Active LORTAB 7.5-325 MG ORAL TABS 1 po q 6 hr prn pain HYDROCODONE- ACETAMINOPHEN 10791471114 No Longer Active Capo Poe MD Active FLOMAX 0.4 MG CAPS Take one by mouth daily TAMSULOSIN HCL 87143966507 No Longer Active Capo Poe MD Active TRIAMCINOLONE ACETONIDE 0.1 % CREA Apply to affected areas TID for up to 2 weeks TRIAMCINOLONE ACETONIDE 59109754972 Active Capo Poe MD Active NICOTINE 14 MG/24HR TRANS PT24 Apply/Change q 24hr NICOTINE 84527841495 No Longer Active Capo Poe MD Active TRAMADOL HCL 50 MG TABS 1-2 tablets every 6 hours as needed for pain TRAMADOL HCL 48299948630 No Longer Active Capo Poe MD Active SERTRALINE HCL 100 MG ORAL TABS take 1 tab daily SERTRALINE HCL 32433671301 No Longer Active Capo Poe MD Active LISINOPRIL-HYDROCHLOROTHIAZIDE 10-12.5 MG TABS 0.5 tab by mouth daily LISINOPRIL-HYDROCHLOROTHIAZIDE 98353723405 No Longer Active Capo Poe MD Active OMEPRAZOLE 20 MG CPDR 1 tablet by mouth daily OMEPRAZOLE 33314767067 Active Capo Poe MD Active WELLBUTRIN SR 150 MG ORAL [id number] 1 po BID BUPROPION HCL 56516278463 No Longer Active Capo Poe MD Active MIRALAX PACK 1 po qd PRN Constipation POLYETHYLENE GLYCOL 3350 62088371405 Active Capo Poe MD Active DULERA 100-5 MCG/ACT AERO 2 puffs BID MOMETASONE FURO- FORMOTEROL FUM 09232428452 Active Capo oPe MD Active ZOLOFT 100 MG TABS 1 po daily SERTRALINE HCL 59304113636 No Longer Active Zoran Arzola MD Active FERROUS SULFATE 325 (65 FE) MG TABS 1 tablet by mouth daily FERROUS SULFATE 98386905646 No Longer Active Capo Poe MD Active HYDROCODONE-ACETAMINOPHEN 7.5-300 MG TABS take one every six hours HYDROCODONE-ACETAMINOPHEN 44422836464 No Longer Active Capo Poe MD Active TRIAMCINOLONE ACETONIDE 0.1 % OINT Apply to affected areas TID for up to 2 weeks TRIAMCINOLONE ACETONIDE 98848433517 No Longer Active Joe Vargas RN Active FERROUS SULFATE 325 (65 FE) MG TABS Take one by mouth daily FERROUS SULFATE 38695807390 No Longer Active Capo Poe MD Active TRIAMCINOLONE ACETONIDE 0.1 % OINT Apply to affected areas TID for up to 2 weeks TRIAMCINOLONE ACETONIDE 30158995613 No Longer Active Capo Poe MD Active ADULT ASPIRIN LOW STRENGTH 81 MG TBDP qd ASPIRIN 22057165734 Active Zoran Arzola MD Active ALEVE 220 MG TAB prn NAPROXEN SODIUM 29037808620 Active Capo Poe MD Active MACROBID 100 MG CAP 1 cap by mouth twice daily NITROFURANTOIN MONOHYD MACRO 91851318812 No Longer Active Dona Becker Active AZITHROMYCIN 250 MG TABS 2 po qd x 1 day, then 1 po qd x 4 days AZITHROMYCIN 34787023843 No Longer Active Capo Poe MD Active FISH OIL 500 MG CAPS by mouth twice a day OMEGA-3 FATTY ACIDS 92895772034 Active Capo Poe MD Active FLAXSEED OIL 1000 MG CAPS Take two by mouth daily FLAXSEED (LINSEED) 39632233140 Active Zoran Arzola MD Active RED YEAST RICE 600 MG CAPS Take two by mouth daily RED YEAST RICE EXTRACT 10109829831 Active Zoran Arzola MD Active ICAPS MV TABS 2 po daily MULTIPLE VITAMINS-MINERALS 24045458942 Active Jam Arnold DO Active MACROBID 100 MG CAP 1 cap by mouth twice daily MACROBID 100 MG CAP 0628621 NITROFURANTOIN MONOHYD MACRO Inactive FERROUS SULFATE 325 (65 FE) MG TABS Take one by mouth daily FERROUS SULFATE 325 (65 FE) MG TABS 407865 FERROUS SULFATE Inactive HYDROCODONE-ACETAMINOPHEN 7.5-300 MG TABS take one every six hours HYDROCODONE-ACETAMINOPHEN 7.5-300 MG TABS 329020 HYDROCODONE- ACETAMINOPHEN Inactive FERROUS SULFATE 325 (65 FE) MG TABS 1 tablet by mouth daily FERROUS SULFATE 325 (65 FE) MG TABS 175623 FERROUS SULFATE Inactive ZOLOFT 100 MG TABS 1 po daily ZOLOFT 100 MG TABS 580334 SERTRALINE HCL Inactive SERTRALINE HCL 100 MG ORAL TABS take 1 tab daily SERTRALINE HCL 100 MG ORAL TABS 751497 SERTRALINE HCL Inactive TRAMADOL HCL 50 MG TABS 1-2 tablets every 6 hours as needed for pain TRAMADOL HCL 50 MG TABS 160723 TRAMADOL HCL Inactive NICOTINE 14 MG/24HR TRANS PT24 Apply/Change q 24hr NICOTINE 14 MG/24HR TRANS PT24 415023 NICOTINE Inactive FLOMAX 0.4 MG CAPS Take one by mouth daily FLOMAX 0.4 MG CAPS 359026 TAMSULOSIN HCL Inactive LORTAB 7.5-325 MG ORAL TABS 1 po q 6 hr prn pain LORTAB 7.5- 325 MG ORAL TABS 575903 HYDROCODONE-ACETAMINOPHEN Inactive VIIBRYD STARTER PACK 10 & 20 MG ORAL KIT 1 po qd as directed 2015 VIIBRYD STARTER PACK 10 & 20 MG ORAL KIT VILAZODONE HCL Inactive LISINOPRIL 10 MG TABS 1 tablet by mouth daily LISINOPRIL 10 MG TABS 076089 LISINOPRIL Inactive MULTIVITAMINS CAPS Take one by mouth daily MULTIVITAMINS CAPS MULTIPLE VITAMIN Inactive AZITHROMYCIN 250 MG TABS 2 po qd x 1 day, then 1 po qd x 4 days AZITHROMYCIN 250 MG TABS 6471897 AZITHROMYCIN Inactive TRIAMCINOLONE ACETONIDE 0.1 % OINT Apply to affected areas TID for up to 2 weeks TRIAMCINOLONE ACETONIDE 0.1 % OINT 7086408 TRIAMCINOLONE ACETONIDE Inactive TRIAMCINOLONE ACETONIDE 0.1 % OINT Apply to affected areas TID for up to 2 weeks TRIAMCINOLONE ACETONIDE 0.1 % OINT 6069043 TRIAMCINOLONE ACETONIDE Inactive PREDNISONE 20 MG ORAL TABS 2 po qd x 5 days PREDNISONE 20 MG ORAL TABS 696780 PREDNISONE Inactive Advance Directives Directive Description Start [...] Panel - Chemistry sodium, serum 137 mmol/L 039-623 6828/07/26 carbon dioxide, venous blood 27.3 mmol/L 21.0-32.0 [...] ... - Chemistry sodium, serum 141 mmol/L 174-852 4592/01/27 carbon dioxide, venous blood 29.7 mmol/L 21.0-32.0 [...] % 11.0-15.0 platelet count 214 THOUSAND/UL 10*3/mm3 017-939 4185/03/31 mean platelet volume 8.4 fL 7.5-12.5 Encounters Code Encounter Date Provider Facility CPT-63937 Level 3 Est. Patient 11:31:49 CDT Leanna Baker APRN [facility] CPT-58881 Level 3 Est. Patient 09:44:06 CDT Capo Poe MD [facility] CPT-72051 Level 4 Est. Patient 09:26:11 HOME HEALTH CARE PHYSICIAN Capo Poe MD [facility] CPT-48705 Level 4 Est. Patient 08:53:08 CDT Capo Poe MD [facility] CPT-27660 Level 4 Est. Patient 10:22:57 CDT Capo Poe MD [facility] CPT-60072 Level 4 Est. Patient 13:44:30 CDT Capo Poe MD [facility] CPT-80971 Level 3 Est. Patient 14:59:32 HOME HEALTH CARE PHYSICIAN Capo Poe MD [facility] CPT-01413 Level 4 Est. Patient 10:46:15 HOME HEALTH CARE PHYSICIAN Capo Poe MD [facility] CPT-48268 Level 3 Est. Patient 11:00:53 CDT Cpao Poe MD [facility] CPT-83465 Level 3 Est. Patient 09:39:35 CDT Capo Poe MD [facility] CPT-77790 Level 3 Est. Patient 09:27:01 CDT Capo Poe MD [facility] CPT-55391 Level 3 Est. Patient 18:37:08 CDT Zoran Arzola MD [facility] CPT-89940 Level 3 Est. Patient 15:00:28 CDT Capo Poe MD [facility] CPT-14177 Level 3 Est. Patient 08:20:19 CDT Zoran Arzola MD [facility] CPT-77194 Level 3 Est. Patient 09:22:21 CDT Capo Poe MD [facility] CPT-07679 Level 4 Est. Patient 10:21:30 HOME HEALTH CARE PHYSICIAN Capo Poe MD [facility] CPT-67977 Level 3 Est. Patient 17:08:51 HOME HEALTH CARE PHYSICIAN Zoran Arzola MD [facility] CPT-86631 Level 4 Est. Patient 09:44:42 CDT Capo Poe MD [facility] CPT-85206 Level 4 Est. Patient 10:39:29 CDT Capo Poe MD [facility] CPT-01280 Level 3 Est. Patient 17:45:23 CDT Zoran Arzola MD [facility] CPT-04311 Level 4 Est. Patient 08:50:44 CDT Capo Poe MD [facility] CPT-45337 Level 3 Est. Patient 10:39:51 HOME HEALTH CARE PHYSICIAN Capo Poe MD [facility] CPT-58959 Level 4 Est. Patient 09:44:24 HOME HEALTH CARE PHYSICIAN Capo Poe MD [facility] CPT-86951 Level 3 Est. Patient 14:48:42 HOME HEALTH CARE PHYSICIAN Zoran Arzola MD [facility] CPT-21991 Level 4 Est. Patient 10:24:02 CDT Capo Poe MD [facility] CPT-25409 Level 3 Est. Patient 15:42:00 CDT Maya WRIGHTP [facility] CPT-98594 Level 4 Est. Patient 13:34:15 CDT Capo Poe MD [facility] CPT-63808 Level 3 Est. Patient 15:32:10 HOME HEALTH CARE PHYSICIAN Zoran Arzola MD [facility] CPT-37271 Level 3 New Patient 17:17:19 HOME HEALTH CARE PHYSICIAN Zoran Arzola MD [facility] CPT-01126 Level 4 Est. Patient 10:25:01 HOME HEALTH CARE PHYSICIAN Capo Poe MD [facility] CPT-67255 Level 3 Est. Patient 10:10:42 CDT Zoran Arzola MD [facility] CPT-23336 Level 3 Est. Patient 22:30:02 CDT Zoran Arzola MD [facility] CPT-29582 Level 4 Est. Patient 09:54:20 CDT Capo Poe MD [facility] CPT-53807 Level 3 Est. Patient 10:48:30 CDT Capo Poe MD [facility] CPT-85615 Level 3 Est. Patient 11:24:45 CDT Capo Poe MD [facility] CPT-99525 Level 3 Est. Patient 15:23:48 HOME HEALTH CARE PHYSICIAN Capo Poe MD [facility] CPT-43761 Level 3 Est. Patient 15:10:03 HOME HEALTH CARE PHYSICIAN Capo Poe MD [facility] CPT-57090 Level 3 Est. Patient 16:18:40 CDT Zoran Arzola MD [facility] Procedures Code Procedure Name Date Entry Date Standard Description CPT-36935 Chest 2V Frontal and Lat - XRAY USE ONLY 11:51:24 CDT CPT-93074 Venipuncture Draw Fee 11:31:49 CDT CPT-16803 Hemoccult IFOBT - LAB USE ONLY 14:11:43 HOME HEALTH CARE PHYSICIAN CPT-06391 TPSA - LAB USE ONLY 10:37:52 HOME HEALTH CARE PHYSICIAN CPT-65706 TSH - LAB USE ONLY 10:37:51 HOME HEALTH CARE PHYSICIAN CPT-53843 CMP - LAB USE ONLY 10:37:51 HOME HEALTH CARE PHYSICIAN CPT-57797 CBC with Diff - LAB USE ONLY 10:37:51 HOME HEALTH CARE PHYSICIAN CPT-60256 Venipuncture Draw Fee 10:37:51 HOME HEALTH CARE PHYSICIAN CPT-000 Give Pneumovax 10:39:30 CDT CPT-96887 Venipuncture Draw Fee 09:32:34 CDT CPT-G0438 Initial Annual Wellness Exam 10:24:35 CDT CPT-82887 Venipuncture Draw Fee 09:46:29 CDT CPT-34757 Venipuncture Draw Fee 14:30:06 CDT CPT-83233 Venipuncture Draw Fee 10:58:22 CDT CPT-69537 Abd single AP View 08:32:00 CDT CPT-64135 Postop F/U Visit 21:13:08 CDT CPT-84252 Abd single AP View 15:50:24 CDT CPT-73245 Cystoscopy W/rem FB 15:21:28 CDT CPT-39437 Abd single AP View 14:06:45 CDT CPT-46836 Postop F/U Visit 09:48:32 CDT CPT-52032 Abd single AP View 13:58:26 CDT CPT-47346 Hip comp min 2V 10:27:18 HOME HEALTH CARE PHYSICIAN CPT-08231 Urine Dip (Floor Use Only) 13:41:01 HOME HEALTH CARE PHYSICIAN CPT-83470 Postop F/U Visit 11:17:48 CDT CPT-LR Lesion Removal 11:50:22 CDT CPT-OV Office Visit 11:50:22 CDT CPT-77088 Pneumovax 23 10:55:48 CDT CPT-55731 Administration single or combination vaccine inc oral 10 :55:48 CDT CPT-Cryo Cryotherapy 11:18:11 CDT CPT-OV Office Visit 11:18:11 CDT CPT-63869 LS spine AP and Lat 09:05:22 CDT CPT-63395 Bladder Scan 15:42:00 CDT CPT-45682 Cystoscopy 15:42:00 CDT CPT-OV Office Visit 16:37:19 HOME HEALTH CARE PHYSICIAN CPT-56500 Bladder Scan 15:32:10 HOME HEALTH CARE PHYSICIAN CPT-75919 Cystoscopy 15:32:10 HOME HEALTH CARE PHYSICIAN CPT-66441 Abd single AP View 14:05:59 HOME HEALTH CARE PHYSICIAN CPT-00884 Pill cam small bowel 09:48:39 HOME HEALTH CARE PHYSICIAN CPT-07067 Urine Dip (Floor Use Only) 17:17:19 HOME HEALTH CARE PHYSICIAN CPT-72665 Bladder Scan 17:17:19 HOME HEALTH CARE PHYSICIAN CPT-OV Office Visit 11:50:26 HOME HEALTH CARE PHYSICIAN CPT-59053 Bladder Scan 10:10:42 CDT CPT-95344 Venipuncture Draw Fee 09:14:04 CDT CPT-01778 Chest 2V Frontal and Lat 10:10:49 CDT CPT-33631 LS spine comp w obliq 11:50:11 CDT CPT-36098 Venipuncture Draw Fee 08:52:57 HOME HEALTH CARE PHYSICIAN CPT-04554 Cystoscopy W/rem FB 18:37:28 CDT CPT-49188 Abd single AP View 16:18:40 CDT CPT-60216 Abd compl w upright 17:30:59 CDT
--- OUTSIDE RECORDS SUMMARY | 2016-11-22 16:04 | XMS REPORT | Clinical Summary ---
Author Author Admin, MARGE Organization [facility] Address Unknown Phone Unavailable Allergies, Adverse [...] Acute bronchitis URINARY FREQUENCY 788.41 Resolved Capo Peo MD Urinary frequency COUGH 786.2 Resolved Capo [...] MG/24HR TRANS PT24 Apply/Change q 24hr NICOTINE 66557040164 Active Capo Poe MD Active WELLBUTRIN SR 150 MG ORAL [id number] 1 po qd x 3 days, then 1 po BID BUPROPION HCL 26726457240 Active Capo Poe MD Active LORTAB 7.5-325 MG ORAL TABS 1 po q 6 hr prn pain HYDROCODONE- ACETAMINOPHEN 84146937505 Active Capo Poe MD Active FLOMAX 0.4 MG CAPS Take one by mouth daily TAMSULOSIN HCL 13940770341 Active Capo Poe MD Active MIRALAX PACK 1 po qd PRN Constipation POLYETHYLENE GLYCOL 3350 23983587117 Active Capo Poe MD Active DULERA 100-5 MCG/ACT AERO 2 puffs BID MOMETASONE FURO- FORMOTEROL FUM 84015054411 Active Capo Poe MD Active SERTRALINE HCL 100 MG ORAL TABS take 1 tab daily SERTRALINE HCL 32649892962 Active Capo Poe MD Active ZOLOFT 100 MG TABS 1 po daily SERTRALINE HCL 69051965494 No Longer Active Zoran Arzola MD Active FERROUS SULFATE 325 (65 FE) MG TABS 1 tablet by mouth daily FERROUS SULFATE 16152836791 No Longer Active Capo Poe MD Active TRAMADOL HCL 50 MG TABS 1-2 tablets every 6 hours as needed for pain TRAMADOL HCL 93376948719 Active Capo Poe MD Active HYDROCODONE-ACETAMINOPHEN 7.5-300 MG TABS take one every six hours HYDROCODONE-ACETAMINOPHEN 92762548685 No Longer Active Capo Poe MD Active TRIAMCINOLONE ACETONIDE 0.1 % OINT Apply to affected areas TID for up to 2 weeks TRIAMCINOLONE ACETONIDE 52254950084 No Longer Active Joe Vargas RN Active FERROUS SULFATE 325 (65 FE) MG TABS Take one by mouth daily FERROUS SULFATE 88289453168 No Longer Active Capo Poe MD Active TRIAMCINOLONE ACETONIDE 0.1 % OINT Apply to affected areas TID for up to 2 weeks TRIAMCINOLONE ACETONIDE 66763457159 No Longer Active Capo Poe MD Active ADULT ASPIRIN LOW STRENGTH 81 MG TBDP qd ASPIRIN 29986766043 Active Zoran Arzola MD Active ALEVE 220 MG TAB prn NAPROXEN SODIUM 56728304699 Active Capo Poe MD Active LISINOPRIL-HYDROCHLOROTHIAZIDE 10-12.5 MG TABS 1 tab by mouth daily LISINOPRIL-HYDROCHLOROTHIAZIDE 72681123077 Active Capo Poe MD Active MACROBID 100 MG CAP 1 cap by mouth twice daily NITROFURANTOIN MONOHYD MACRO 79381017688 No Longer Active Dona Becker Active AZITHROMYCIN 250 MG TABS 2 po qd x 1 day, then 1 po qd x 4 days AZITHROMYCIN 37958639900 No Longer Active Capo Poe MD Active FISH OIL 500 MG CAPS by mouth twice a day OMEGA-3 FATTY ACIDS 70902255636 Active Capo Poe MD Active FLAXSEED OIL 1000 MG CAPS Take two by mouth daily FLAXSEED (LINSEED) 34375863950 Elza Arzola MD Active RED YEAST RICE 600 MG CAPS Take two by mouth daily RED YEAST RICE EXTRACT 82707915350 Elza Arzola MD Active MULTIVITAMINS CAPS Take one by mouth daily MULTIPLE VITAMIN 45562774471 Active Zoran Arzola MD Active ICAPS MV TABS 2 po daily MULTIPLE VITAMINS-MINERALS 49028478325 Active Jam Arnold DO Active MACROBID 100 MG CAP 1 cap by mouth twice daily MACROBID 100 MG CAP 729757 NITROFURANTOIN MONOHYD MACRO Inactive FERROUS SULFATE 325 (65 FE) MG TABS Take one by mouth daily FERROUS SULFATE 325 (65 FE) MG TABS 286614 FERROUS SULFATE Inactive HYDROCODONE-ACETAMINOPHEN 7.5-300 MG TABS take one every six hours HYDROCODONE-ACETAMINOPHEN 7.5-300 MG TABS 647438 HYDROCODONE- ACETAMINOPHEN Inactive FERROUS SULFATE 325 (65 FE) MG TABS 1 tablet by mouth daily FERROUS SULFATE 325 (65 FE) MG TABS 674089 FERROUS SULFATE Inactive ZOLOFT 100 MG TABS 1 po daily ZOLOFT 100 MG TABS 110228 SERTRALINE HCL Inactive AZITHROMYCIN 250 MG TABS 2 po qd x 1 day, then 1 po qd x 4 days AZITHROMYCIN 250 MG TABS 7867435 AZITHROMYCIN Inactive TRIAMCINOLONE ACETONIDE 0.1 % OINT Apply to affected areas TID for up to 2 weeks TRIAMCINOLONE ACETONIDE 0.1 % OINT 7027480 TRIAMCINOLONE ACETONIDE Inactive TRIAMCINOLONE ACETONIDE 0.1 % OINT Apply to affected areas TID for up to 2 weeks TRIAMCINOLONE ACETONIDE 0.1 % OINT 9696207 TRIAMCINOLONE ACETONIDE Inactive Advance Directives Directive Description [...] Panel - Chemistry sodium, serum 139 mmol/L 238-546 9090/07/30 potassium, serum 4.7 mmol/L 3.5-5.2 chloride, serum [...] CBC - Chemistry cholesterol, serum 207 mg/dL 185-251 8989/02/11 triglyceride, serum, fasting 74 mg/dL 30-200 HDL cholesterol, serum 62 mg/dL 32-96 LDL cholesterol, serum 130 mg/dL 0-130 sodium, serum 144 mmol/L 464-911 4254/02/11 potassium, serum 5.0 mmol/L 3.5-5.2 chloride, serum [...] negative Encounters Code Encounter Date Provider Facility CPT-48950 Level 3 Est. Patient 09:27:01 CDT Capo Poe MD [facility] CPT-09466 Level 3 Est. Patient 18:37:08 CDT Zoran Arzola MD [facility] CPT-98673 Level 3 Est. Patient 15:00:28 CDT Capo Poe MD [facility] CPT-92636 Level 3 Est. Patient 08:20:19 CDT Zoran Arzola MD [facility] CPT-45026 Level 3 Est. Patient 09:22:21 CDT Capo Poe MD [facility] CPT-86760 Level 4 Est. Patient 10:21:30 COOLER SERVICE SUPERVISOR Capo Poe MD [facility] CPT-67850 Level 3 Est. Patient 17:08:51 COOLER SERVICE SUPERVISOR Zoran Arzola MD [facility] CPT-05614 Level 4 Est. Patient 09:44:42 CDT Capo Poe MD [facility] CPT-33155 Level 4 Est. Patient 10:39:29 CDT Capo Poe MD [facility] CPT-24774 Level 3 Est. Patient 17:45:23 CDT Zoran Arzola MD [facility] CPT-95930 Level 4 Est. Patient 08:50:44 CDT Capo Poe MD [facility] CPT-92421 Level 3 Est. Patient 10:39:51 COOLER SERVICE SUPERVISOR Capo Poe MD [facility] CPT-37407 Level 4 Est. Patient 09:44:24 COOLER SERVICE SUPERVISOR Capo Poe MD [facility] CPT-36886 Level 3 Est. Patient 14:48:42 COOLER SERVICE SUPERVISOR Zoran Arzola MD [facility] CPT-53000 Level 4 Est. Patient 10:24:02 CDT Capo Poe MD [facility] CPT-32498 Level 3 Est. Patient 15:42:00 CDT Maya WRIGHTP [facility] CPT-10309 Level 4 Est. Patient 13:34:15 CDT Capo Poe MD [facility] CPT-27429 Level 3 Est. Patient 15:32:10 COOLER SERVICE SUPERVISOR Zoran Arzola MD [facility] CPT-40555 Level 3 New Patient 17:17:19 COOLER SERVICE SUPERVISOR Zoran Arzola MD [facility] CPT-47260 Level 4 Est. Patient 10:25:01 COOLER SERVICE SUPERVISOR Capo Poe MD [facility] CPT-16815 Level 3 Est. Patient 10:10:42 CDT Zoran Arzola MD [facility] CPT-89948 Level 3 Est. Patient 22:30:02 CDT Zoran Arzola MD [facility] CPT-30766 Level 4 Est. Patient 09:54:20 CDT Capo Poe MD [facility] CPT-09687 Level 3 Est. Patient 10:48:30 CDT Capo Poe MD [facility] CPT-10222 Level 3 Est. Patient 11:24:45 CDT Capo Poe MD [facility] CPT-99481 Level 3 Est. Patient 15:23:48 COOLER SERVICE SUPERVISOR Capo Poe MD [facility] CPT-68370 Level 3 Est. Patient 15:10:03 COOLER SERVICE SUPERVISOR Capo Poe MD [facility] CPT-60356 Level 3 Est. Patient 16:18:40 CDT Zoran Arzola MD [facility] Procedures Code Procedure Name Date Entry Date Standard Description CPT-57695 Abd single AP View 08:32:00 CDT CPT-20376 Postop F/U Visit 21:13:08 CDT CPT-93337 Abd single AP View 15:50:24 CDT CPT-15743 Cystoscopy W/rem FB 15:21:28 CDT CPT-23207 Abd single AP View 14:06:45 CDT CPT-96763 Postop F/U Visit 09:48:32 CDT CPT-23105 Abd single AP View 13:58:26 CDT CPT-49680 Hip comp min 2V 10:27:18 COOLER SERVICE SUPERVISOR CPT-65359 Urine Dip (Floor Use Only) 13:41:01 COOLER SERVICE SUPERVISOR CPT-76455 Postop F/U Visit 11:17:48 CDT CPT-LR Lesion Removal 11:50:22 CDT CPT-OV Office Visit 11:50:22 CDT CPT-96857 Pneumovax 23 10:55:48 CDT CPT-89312 Administration single or combination vaccine inc oral 10 :55:48 CDT CPT-Cryo Cryotherapy 11:18:11 CDT CPT-OV Office Visit 11:18:11 CDT CPT-25253 LS spine AP and Lat 09:05:22 CDT CPT-61112 Bladder Scan 15:42:00 CDT CPT-66225 Cystoscopy 15:42:00 CDT CPT-OV Office Visit 16:37:19 COOLER SERVICE SUPERVISOR CPT-75122 Bladder Scan 15:32:10 COOLER SERVICE SUPERVISOR CPT-99695 Cystoscopy 15:32:10 COOLER SERVICE SUPERVISOR CPT-89507 Abd single AP View 14:05:59 COOLER SERVICE SUPERVISOR CPT-15109 Pill cam small bowel 09:48:39 COOLER SERVICE SUPERVISOR CPT-95296 Urine Dip (Floor Use Only) 17:17:19 COOLER SERVICE SUPERVISOR CPT-96948 Bladder Scan 17:17:19 COOLER SERVICE SUPERVISOR CPT-OV Office Visit 11:50:26 COOLER SERVICE SUPERVISOR CPT-20853 Bladder Scan 10:10:42 CDT CPT-07261 Venipuncture Draw Fee 09:14:04 CDT CPT-25071 Chest 2V Frontal and Lat 10:10:49 CDT CPT-05551 LS spine comp w obliq 11:50:11 CDT CPT-63199 Venipuncture Draw Fee 08:52:57 COOLER SERVICE SUPERVISOR CPT-55761 Cystoscopy W/rem FB 18:37:28 CDT CPT-81551 Abd single AP View 16:18:40 CDT CPT-53983 Abd compl w upright 17:30:59 CDT
--- OUTSIDE RECORDS SUMMARY | 2016-11-22 16:05 | XMS REPORT | Clinical Summary ---
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 Inactive Capo Poe MD UTI ICD-599.0 Inactive Capo Poe MD Medication List Medication Instructions Start Date Stop Date Generic Name NDC Status Provider Patient Instruction NICOTINE 14 MG/24HR TRANS PT24 Apply/Change q 24hr NICOTINE 17300840688 Active Capo Poe MD Active WELLBUTRIN SR 150 MG ORAL [id number] 1 po qd x 3 days, then 1 po BID BUPROPION HCL 35285953754 Active Capo Poe MD Active LORTAB 7.5-325 MG ORAL TABS 1 po q 6 hr prn pain HYDROCODONE- ACETAMINOPHEN 75512641569 Active Capo Poe MD Active FLOMAX 0.4 MG CAPS Take one by mouth daily TAMSULOSIN HCL 63655685099 Active Capo Poe MD Active MIRALAX PACK 1 po qd PRN Constipation POLYETHYLENE GLYCOL 3350 45708163273 Active Capo Poe MD Active DULERA 100-5 MCG/ACT AERO 2 puffs BID MOMETASONE FURO- FORMOTEROL FUM 91970142471 Active Capo Poe MD Active SERTRALINE HCL 100 MG ORAL TABS take 1 tab daily SERTRALINE HCL 84327839900 Active Capo Poe MD Active ZOLOFT 100 MG TABS 1 po daily SERTRALINE HCL 14117745353 No Longer Active Zoran Arzola MD Active FERROUS SULFATE 325 (65 FE) MG TABS 1 tablet by mouth daily FERROUS SULFATE 75846803787 No Longer Active Capo Poe MD Active TRAMADOL HCL 50 MG TABS 1-2 tablets every 6 hours as needed for pain TRAMADOL HCL 50914896326 Active Capo Poe MD Active HYDROCODONE-ACETAMINOPHEN 7.5-300 MG TABS take one every six hours HYDROCODONE-ACETAMINOPHEN 23191668885 No Longer Active Capo Poe MD Active TRIAMCINOLONE ACETONIDE 0.1 % OINT Apply to affected areas TID for up to 2 weeks TRIAMCINOLONE ACETONIDE 68986548686 No Longer Active Joe Vargas RN Active FERROUS SULFATE 325 (65 FE) MG TABS Take one by mouth daily FERROUS SULFATE 19102380951 No Longer Active Capo Poe MD Active TRIAMCINOLONE ACETONIDE 0.1 % OINT Apply to affected areas TID for up to 2 weeks TRIAMCINOLONE ACETONIDE 96753653538 No Longer Active Capo Poe MD Active ADULT ASPIRIN LOW STRENGTH 81 MG TBDP qd ASPIRIN 74051906357 Active Zoran Arzola MD Active ALEVE 220 MG TAB prn NAPROXEN SODIUM 97091212210 Active Capo Poe MD Active LISINOPRIL-HYDROCHLOROTHIAZIDE 10-12.5 MG TABS 1 tab by mouth daily LISINOPRIL-HYDROCHLOROTHIAZIDE 71079102511 Active Capo Poe MD Active MACROBID 100 MG CAP 1 cap by mouth twice daily NITROFURANTOIN MONOHYD MACRO 56302484282 No Longer Active Dona Becker Active AZITHROMYCIN 250 MG TABS 2 po qd x 1 day, then 1 po qd x 4 days AZITHROMYCIN 13795304657 No Longer Active Capo Poe MD Active FISH OIL 500 MG CAPS by mouth twice a day OMEGA-3 FATTY ACIDS 03009843141 Active Capo Poe MD Active FLAXSEED OIL 1000 MG CAPS Take two by mouth daily FLAXSEED (LINSEED) 78821152284 Elza Arzola MD Active RED YEAST RICE 600 MG CAPS Take two by mouth daily RED YEAST RICE EXTRACT 78636344774 Elza Arzola MD Active MULTIVITAMINS CAPS Take one by mouth daily MULTIPLE VITAMIN 44899173006 Active Zoran Arzola MD Active ICAPS MV TABS 2 po daily MULTIPLE VITAMINS-MINERALS 82955047757 Active Jam Arnold DO Active MACROBID 100 MG CAP 1 cap by mouth twice daily MACROBID 100 MG CAP 540555 NITROFURANTOIN MONOHYD MACRO Inactive FERROUS SULFATE 325 (65 FE) MG TABS Take one by mouth daily FERROUS SULFATE 325 (65 FE) MG TABS 507732 FERROUS SULFATE Inactive HYDROCODONE-ACETAMINOPHEN 7.5-300 MG TABS take one every six hours HYDROCODONE-ACETAMINOPHEN 7.5-300 MG TABS 543169 HYDROCODONE- ACETAMINOPHEN Inactive FERROUS SULFATE 325 (65 FE) MG TABS 1 tablet by mouth daily FERROUS SULFATE 325 (65 FE) MG TABS 107003 FERROUS SULFATE Inactive ZOLOFT 100 MG TABS 1 po daily ZOLOFT 100 MG TABS 521979 SERTRALINE HCL Inactive AZITHROMYCIN 250 MG TABS 2 po qd x 1 day, then 1 po qd x 4 days AZITHROMYCIN 250 MG TABS 2858537 AZITHROMYCIN Inactive TRIAMCINOLONE ACETONIDE 0.1 % OINT Apply to affected areas TID for up to 2 weeks TRIAMCINOLONE ACETONIDE 0.1 % OINT 8928064 TRIAMCINOLONE ACETONIDE Inactive TRIAMCINOLONE ACETONIDE 0.1 % OINT Apply to affected areas TID for up to 2 weeks TRIAMCINOLONE ACETONIDE 0.1 % OINT 0759478 TRIAMCINOLONE ACETONIDE Inactive Advance Directives Directive Description [...] Panel - Chemistry sodium, serum 139 mmol/L 366-032 1096/07/30 potassium, serum 4.7 mmol/L 3.5-5.2 chloride, serum [...] CBC - Chemistry cholesterol, serum 207 mg/dL 016-953 8098/02/11 triglyceride, serum, fasting 74 mg/dL 30-200 HDL cholesterol, serum 62 mg/dL 32-96 LDL cholesterol, serum 130 mg/dL 0-130 sodium, serum 144 mmol/L 996-686 3280/02/11 potassium, serum 5.0 mmol/L 3.5-5.2 chloride, serum [...] negative Encounters Code Encounter Date Provider Facility CPT-21573 Level 3 Est. Patient 09:27:01 CDT Capo Poe MD [facility] CPT-67683 Level 3 Est. Patient 18:37:08 CDT Zoran Arzola MD [facility] CPT-46496 Level 3 Est. Patient 15:00:28 CDT Capo Poe MD [facility] CPT-56560 Level 3 Est. Patient 08:20:19 CDT Zoran Arzola MD [facility] CPT-19786 Level 3 Est. Patient 09:22:21 CDT Capo Poe MD [facility] CPT-20780 Level 4 Est. Patient 10:21:30 WELDER APPRENTICE Capo Poe MD [facility] CPT-36014 Level 3 Est. Patient 17:08:51 WELDER APPRENTICE Zoran Arzola MD [facility] CPT-13843 Level 4 Est. Patient 09:44:42 CDT Capo Poe MD [facility] CPT-93618 Level 4 Est. Patient 10:39:29 CDT Capo Poe MD [facility] CPT-02594 Level 3 Est. Patient 17:45:23 CDT Zoran Arzola MD [facility] CPT-28158 Level 4 Est. Patient 08:50:44 CDT Capo Poe MD [facility] CPT-09177 Level 3 Est. Patient 10:39:51 WELDER APPRENTICE Capo Poe MD [facility] CPT-02383 Level 4 Est. Patient 09:44:24 WELDER APPRENTICE Capo Poe MD [facility] CPT-69319 Level 3 Est. Patient 14:48:42 WELDER APPRENTICE Zoran Arzola MD [facility] CPT-12022 Level 4 Est. Patient 10:24:02 CDT Capo Poe MD [facility] CPT-10354 Level 3 Est. Patient 15:42:00 CDT Maya WRIGHTP [facility] CPT-35820 Level 4 Est. Patient 13:34:15 CDT Capo Poe MD [facility] CPT-66128 Level 3 Est. Patient 15:32:10 WELDER APPRENTICE Zoran Arzola MD [facility] CPT-62779 Level 3 New Patient 17:17:19 WELDER APPRENTICE Zoran Arzola MD [facility] CPT-81775 Level 4 Est. Patient 10:25:01 WELDER APPRENTICE Capo Poe MD [facility] CPT-59604 Level 3 Est. Patient 10:10:42 CDT Zoran Arzola MD [facility] CPT-16751 Level 3 Est. Patient 22:30:02 CDT Zoran Arzola MD [facility] CPT-07981 Level 4 Est. Patient 09:54:20 CDT Capo Poe MD [facility] CPT-39102 Level 3 Est. Patient 10:48:30 CDT Capo Poe MD [facility] CPT-27034 Level 3 Est. Patient 11:24:45 CDT Capo Poe MD [facility] CPT-51795 Level 3 Est. Patient 15:23:48 WELDER APPRENTICE Capo Poe MD [facility] CPT-99042 Level 3 Est. Patient 15:10:03 WELDER APPRENTICE Capo Poe MD [facility] CPT-72553 Level 3 Est. Patient 16:18:40 CDT Zoran Arzola MD [facility] Procedures Code Procedure Name Date Entry Date Standard Description CPT-47545 Abd single AP View 08:32:00 CDT CPT-60637 Postop F/U Visit 21:13:08 CDT CPT-88791 Abd single AP View 15:50:24 CDT CPT-17513 Cystoscopy W/rem FB 15:21:28 CDT CPT-50740 Abd single AP View 14:06:45 CDT CPT-89352 Postop F/U Visit 09:48:32 CDT CPT-71813 Abd single AP View 13:58:26 CDT CPT-34194 Hip comp min 2V 10:27:18 WELDER APPRENTICE CPT-00765 Urine Dip (Floor Use Only) 13:41:01 WELDER APPRENTICE CPT-51093 Postop F/U Visit 11:17:48 CDT CPT-LR Lesion Removal 11:50:22 CDT CPT-OV Office Visit 11:50:22 CDT CPT-49814 Pneumovax 23 10:55:48 CDT CPT-74864 Administration single or combination vaccine inc oral 10 :55:48 CDT CPT-Cryo Cryotherapy 11:18:11 CDT CPT-OV Office Visit 11:18:11 CDT CPT-90185 LS spine AP and Lat 09:05:22 CDT CPT-61287 Bladder Scan 15:42:00 CDT CPT-12067 Cystoscopy 15:42:00 CDT CPT-OV Office Visit 16:37:19 WELDER APPRENTICE CPT-94778 Bladder Scan 15:32:10 WELDER APPRENTICE CPT-85409 Cystoscopy 15:32:10 WELDER APPRENTICE CPT-47778 Abd single AP View 14:05:59 WELDER APPRENTICE CPT-44860 Pill cam small bowel 09:48:39 WELDER APPRENTICE CPT-36338 Urine Dip (Floor Use Only) 17:17:19 WELDER APPRENTICE CPT-95227 Bladder Scan 17:17:19 WELDER APPRENTICE CPT-OV Office Visit 11:50:26 WELDER APPRENTICE CPT-88848 Bladder Scan 10:10:42 CDT CPT-95840 Venipuncture Draw Fee 09:14:04 CDT CPT-02595 Chest 2V Frontal and Lat 10:10:49 CDT CPT-58976 LS spine comp w obliq 11:50:11 CDT CPT-40819 Venipuncture Draw Fee 08:52:57 WELDER APPRENTICE CPT-77343 Cystoscopy W/rem FB 18:37:28 CDT CPT-48959 Abd single AP View 16:18:40 CDT CPT-78397 Abd compl w upright 17:30:59 CDT
--- OUTSIDE RECORDS SUMMARY | 2016-11-22 16:07 | XMS REPORT | Clinical Summary ---
Author Author Admin, MARGE Organization [facility] Address Unknown Phone Unavailable Allergies, Adverse [...] of cerebral infarction Skin lesion 709.9 Resolved aCpo Poe MD Unspecified disorder of skin and [...] Patient Instruction WELLBUTRIN SR 150 MG ORAL [id number] 1 po BID BUPROPION HCL 16880813972 Active Capo Poe MD Active NICOTINE 14 MG/24HR TRANS PT24 Apply/Change q 24hr NICOTINE 41788643900 Active Capo Poe MD Active LORTAB 7.5-325 MG ORAL TABS 1 po q 6 hr prn pain HYDROCODONE- ACETAMINOPHEN 24074979997 Active Cpao Poe MD Active FLOMAX 0.4 MG CAPS Take one by mouth daily TAMSULOSIN HCL 59898250035 Active Capo Poe MD Active MIRALAX PACK 1 po qd PRN Constipation POLYETHYLENE GLYCOL 3350 36729892390 Active Capo Poe MD Active DULERA 100-5 MCG/ACT AERO 2 puffs BID MOMETASONE FURO- FORMOTEROL FUM 85983685831 Active Capo Poe MD Active SERTRALINE HCL 100 MG ORAL TABS take 1 tab daily SERTRALINE HCL 75122362772 Active Capo Poe MD Active ZOLOFT 100 MG TABS 1 po daily SERTRALINE HCL 96022145273 No Longer Active Zoran Arzola MD Active FERROUS SULFATE 325 (65 FE) MG TABS 1 tablet by mouth daily FERROUS SULFATE 92914373571 No Longer Active Capo Poe MD Active TRAMADOL HCL 50 MG TABS 1-2 tablets every 6 hours as needed for pain TRAMADOL HCL 06304945739 Active Capo Poe MD Active HYDROCODONE-ACETAMINOPHEN 7.5-300 MG TABS take one every six hours HYDROCODONE-ACETAMINOPHEN 03034791775 No Longer Active Capo Poe MD Active TRIAMCINOLONE ACETONIDE 0.1 % OINT Apply to affected areas TID for up to 2 weeks TRIAMCINOLONE ACETONIDE 77766252886 No Longer Active Joe Vargas RN Active FERROUS SULFATE 325 (65 FE) MG TABS Take one by mouth daily FERROUS SULFATE 22880332487 No Longer Active Capo Poe MD Active TRIAMCINOLONE ACETONIDE 0.1 % OINT Apply to affected areas TID for up to 2 weeks TRIAMCINOLONE ACETONIDE 69989231512 No Longer Active Capo Poe MD Active ADULT ASPIRIN LOW STRENGTH 81 MG TBDP qd ASPIRIN 44446502847 Active Zoran Arzola MD Active ALEVE 220 MG TAB prn NAPROXEN SODIUM 76253650333 Active Capo Poe MD Active LISINOPRIL-HYDROCHLOROTHIAZIDE 10-12.5 MG TABS 1 tab by mouth daily LISINOPRIL-HYDROCHLOROTHIAZIDE 24184120301 Active Capo Poe MD Active MACROBID 100 MG CAP 1 cap by mouth twice daily NITROFURANTOIN MONOHYD MACRO 02237967747 No Longer Active Dona Becker Active AZITHROMYCIN 250 MG TABS 2 po qd x 1 day, then 1 po qd x 4 days AZITHROMYCIN 04907134088 No Longer Active Capo Poe MD Active FISH OIL 500 MG CAPS by mouth twice a day OMEGA-3 FATTY ACIDS 01115267541 Active Capo Poe MD Active FLAXSEED OIL 1000 MG CAPS Take two by mouth daily FLAXSEED (LINSEED) 05709670161 Elza Arzola MD Active RED YEAST RICE 600 MG CAPS Take two by mouth daily RED YEAST RICE EXTRACT 00593412184 Active Zoran Arzola MD Active MULTIVITAMINS CAPS Take one by mouth daily MULTIPLE VITAMIN 79613446243 Active Zoran Arzola MD Active ICAPS MV TABS 2 po daily MULTIPLE VITAMINS-MINERALS 11826738301 Active Jam Arnold DO Active MACROBID 100 MG CAP 1 cap by mouth twice daily MACROBID 100 MG CAP 6330758 NITROFURANTOIN MONOHYD MACRO Inactive FERROUS SULFATE 325 (65 FE) MG TABS Take one by mouth daily FERROUS SULFATE 325 (65 FE) MG TABS 522394 FERROUS SULFATE Inactive HYDROCODONE-ACETAMINOPHEN 7.5-300 MG TABS take one every six hours HYDROCODONE-ACETAMINOPHEN 7.5-300 MG TABS 404101 HYDROCODONE- ACETAMINOPHEN Inactive FERROUS SULFATE 325 (65 FE) MG TABS 1 tablet by mouth daily FERROUS SULFATE 325 (65 FE) MG TABS 254960 FERROUS SULFATE Inactive ZOLOFT 100 MG TABS 1 po daily ZOLOFT 100 MG TABS 191320 SERTRALINE HCL Inactive AZITHROMYCIN 250 MG TABS 2 po qd x 1 day, then 1 po qd x 4 days AZITHROMYCIN 250 MG TABS 3557566 AZITHROMYCIN Inactive TRIAMCINOLONE ACETONIDE 0.1 % OINT Apply to affected areas TID for up to 2 weeks TRIAMCINOLONE ACETONIDE 0.1 % OINT 9843253 TRIAMCINOLONE ACETONIDE Inactive TRIAMCINOLONE ACETONIDE 0.1 % OINT Apply to affected areas TID for up to 2 weeks TRIAMCINOLONE ACETONIDE 0.1 % OINT 9384245 TRIAMCINOLONE ACETONIDE Inactive Advance Directives Directive Description [...] Panel - Chemistry sodium, serum 139 mmol/L 986-320 8221/07/30 potassium, serum 4.7 mmol/L 3.5-5.2 chloride, serum [...] CBC - Chemistry cholesterol, serum 207 mg/dL 708-249 7247/02/11 triglyceride, serum, fasting 74 mg/dL 30-200 HDL cholesterol, serum 62 mg/dL 32-96 LDL cholesterol, serum 130 mg/dL 0-130 sodium, serum 144 mmol/L 390-647 4835/02/11 potassium, serum 5.0 mmol/L 3.5-5.2 chloride, serum [...] negative Encounters Code Encounter Date Provider Facility CPT-30667 Level 3 Est. Patient 09:27:01 CDT Capo Poe MD [facility] CPT-92492 Level 3 Est. Patient 18:37:08 CDT Zoran Arzola MD [facility] CPT-73847 Level 3 Est. Patient 15:00:28 CDT Capo Poe MD [facility] CPT-22556 Level 3 Est. Patient 08:20:19 CDT Zoran Arzola MD [facility] CPT-87532 Level 3 Est. Patient 09:22:21 CDT Capo Poe MD [facility] CPT-87512 Level 4 Est. Patient 10:21:30 SPECIAL EDUCATION ASSOCIATE Capo Poe MD [facility] CPT-32944 Level 3 Est. Patient 17:08:51 SPECIAL EDUCATION ASSOCIATE Zoran Arzola MD [facility] CPT-92797 Level 4 Est. Patient 09:44:42 CDT Capo Poe MD [facility] CPT-66875 Level 4 Est. Patient 10:39:29 CDT Capo Poe MD [facility] CPT-86678 Level 3 Est. Patient 17:45:23 CDT Zoran Arzola MD [facility] CPT-93436 Level 4 Est. Patient 08:50:44 CDT Capo Poe MD [facility] CPT-38477 Level 3 Est. Patient 10:39:51 SPECIAL EDUCATION ASSOCIATE Capo Poe MD [facility] CPT-69314 Level 4 Est. Patient 09:44:24 SPECIAL EDUCATION ASSOCIATE Capo Poe MD [facility] CPT-95833 Level 3 Est. Patient 14:48:42 SPECIAL EDUCATION ASSOCIATE Zoran Arzola MD [facility] CPT-89545 Level 4 Est. Patient 10:24:02 CDT Capo Poe MD [facility] CPT-74636 Level 3 Est. Patient 15:42:00 CDT Maya WRIGHTP [facility] CPT-44776 Level 4 Est. Patient 13:34:15 CDT Capo Poe MD [facility] CPT-94200 Level 3 Est. Patient 15:32:10 SPECIAL EDUCATION ASSOCIATE Zoran Arzola MD [facility] CPT-11510 Level 3 New Patient 17:17:19 SPECIAL EDUCATION ASSOCIATE Zoran Arzola MD [facility] CPT-62980 Level 4 Est. Patient 10:25:01 SPECIAL EDUCATION ASSOCIATE Capo Poe MD [facility] CPT-37601 Level 3 Est. Patient 10:10:42 CDT Zoran Arzola MD [facility] CPT-18995 Level 3 Est. Patient 22:30:02 CDT Zoran Arzola MD [facility] CPT-10256 Level 4 Est. Patient 09:54:20 CDT Capo Poe MD [facility] CPT-96677 Level 3 Est. Patient 10:48:30 CDT Capo Poe MD [facility] CPT-16498 Level 3 Est. Patient 11:24:45 CDT Capo Poe MD [facility] CPT-77127 Level 3 Est. Patient 15:23:48 SPECIAL EDUCATION ASSOCIATE Capo Poe MD [facility] CPT-99980 Level 3 Est. Patient 15:10:03 SPECIAL EDUCATION ASSOCIATE Capo Poe MD [facility] CPT-26913 Level 3 Est. Patient 16:18:40 CDT Zoran Arzola MD [facility] Procedures Code Procedure Name Date Entry Date Standard Description CPT-65362 Venipuncture Draw Fee 10:58:22 CDT CPT-60287 Abd single AP View 08:32:00 CDT CPT-37342 Postop F/U Visit 21:13:08 CDT CPT-86643 Abd single AP View 15:50:24 CDT CPT-29858 Cystoscopy W/rem FB 15:21:28 CDT CPT-49160 Abd single AP View 14:06:45 CDT CPT-96712 Postop F/U Visit 09:48:32 CDT CPT-59003 Abd single AP View 13:58:26 CDT CPT-64187 Hip comp min 2V 10:27:18 SPECIAL EDUCATION ASSOCIATE CPT-05698 Urine Dip (Floor Use Only) 13:41:01 SPECIAL EDUCATION ASSOCIATE CPT-49883 Postop F/U Visit 11:17:48 CDT CPT-LR Lesion Removal 11:50:22 CDT CPT-OV Office Visit 11:50:22 CDT CPT-38528 Pneumovax 23 10:55:48 CDT CPT-22055 Administration single or combination vaccine inc oral 10 :55:48 CDT CPT-Cryo Cryotherapy 11:18:11 CDT CPT-OV Office Visit 11:18:11 CDT CPT-10494 LS spine AP and Lat 09:05:22 CDT CPT-33935 Bladder Scan 15:42:00 CDT CPT-73069 Cystoscopy 15:42:00 CDT CPT-OV Office Visit 16:37:19 SPECIAL EDUCATION ASSOCIATE CPT-91528 Bladder Scan 15:32:10 SPECIAL EDUCATION ASSOCIATE CPT-92746 Cystoscopy 15:32:10 SPECIAL EDUCATION ASSOCIATE CPT-67999 Abd single AP View 14:05:59 SPECIAL EDUCATION ASSOCIATE CPT-70914 Pill cam small bowel 09:48:39 SPECIAL EDUCATION ASSOCIATE CPT-88501 Urine Dip (Floor Use Only) 17:17:19 SPECIAL EDUCATION ASSOCIATE CPT-70199 Bladder Scan 17:17:19 SPECIAL EDUCATION ASSOCIATE CPT-OV Office Visit 11:50:26 SPECIAL EDUCATION ASSOCIATE CPT-02424 Bladder Scan 10:10:42 CDT CPT-52324 Venipuncture Draw Fee 09:14:04 CDT CPT-87151 Chest 2V Frontal and Lat 10:10:49 CDT CPT-87560 LS spine comp w obliq 11:50:11 CDT CPT-31280 Venipuncture Draw Fee 08:52:57 SPECIAL EDUCATION ASSOCIATE CPT-01935 Cystoscopy W/rem FB 18:37:28 CDT CPT-63611 Abd single AP View 16:18:40 CDT CPT-92103 Abd compl w upright 17:30:59 CDT
--- OUTSIDE RECORDS SUMMARY | 2016-11-22 16:08 | XMS REPORT | Clinical Summary ---
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 Capo [...] MG TABS 1 daily for infection LEVOFLOXACIN 28703660730 Active Leanna Baker APRN Active AZITHROMYCIN 250 MG ORAL TABS 2 po qd x 1, then 1 po qd x 4 AZITHROMYCIN 74309816440 Active Capo Poe MD Active PREDNISONE 20 MG ORAL TABS 2 po qd x 5 days PREDNISONE 80137227507 No Longer Active Capo Poe MD Active CARAFATE 1 GM ORAL TABS 1 tid SUCRALFATE 06960391655 Active Capo Poe MD Active RANITIDINE HCL 150 MG ORAL TABS 1 bid RANITIDINE HCL 48590449721 Active Capo Poe MD Active MULTIVITAMINS CAPS Take one by mouth daily MULTIPLE VITAMIN 55924825308 No Longer Active Capo Poe MD Active LISINOPRIL 10 MG TABS 1 tablet by mouth daily LISINOPRIL 87281290373 No Longer Active Capo Poe MD Active EQL IRON SUPPLEMENT THERAPY 325 MG ORAL TABS 1 tab po twice daily FERROUS SULFATE 91577433250 Active Jasmin Arboledalas RMA Active D ORAL TABS 2000 iu weekly D ORAL TABS Active Capo Poe MD Active CITALOPRAM HYDROBROMIDE 20 MG TABS 1 tablet by mouth daily CITALOPRAM HYDROBROMIDE 10426684774 Active Capo Poe MD Active CLARITIN 5 MG ORAL CHEW 1 tab po q day LORATADINE 65315226580 Active Felisa Daphney RMA Active VIIBRYD STARTER PACK 10 & 20 MG ORAL KIT 1 po qd as directed 2015 VILAZODONE HCL 80877720437 No Longer Active Felisa Daphney RMA Active HYDROXYZINE HCL 25 MG TAB 1 po qHS PRN Insomnia HYDROXYZINE HCL 88254271523 Active Capo Poe MD Active LORTAB 7.5-325 MG ORAL TABS 1 po q 6 hr prn pain HYDROCODONE- ACETAMINOPHEN 15732624321 No Longer Active Capo Poe MD Active FLOMAX 0.4 MG CAPS Take one by mouth daily TAMSULOSIN HCL 16740683586 No Longer Active Capo Poe MD Active TRIAMCINOLONE ACETONIDE 0.1 % CREA Apply to affected areas TID for up to 2 weeks TRIAMCINOLONE ACETONIDE 30002081579 Active Capo Poe MD Active NICOTINE 14 MG/24HR TRANS PT24 Apply/Change q 24hr NICOTINE 50673815441 No Longer Active Capo Poe MD Active TRAMADOL HCL 50 MG TABS 1-2 tablets every 6 hours as needed for pain TRAMADOL HCL 23829454135 No Longer Active Capo Poe MD Active SERTRALINE HCL 100 MG ORAL TABS take 1 tab daily SERTRALINE HCL 00210981326 No Longer Active Capo Poe MD Active LISINOPRIL-HYDROCHLOROTHIAZIDE 10-12.5 MG TABS 0.5 tab by mouth daily LISINOPRIL-HYDROCHLOROTHIAZIDE 93180066079 No Longer Active Capo Poe MD Active OMEPRAZOLE 20 MG CPDR 1 tablet by mouth daily OMEPRAZOLE 95478466222 Active Capo Poe MD Active WELLBUTRIN SR 150 MG ORAL [id number] 1 po BID BUPROPION HCL 28381924745 No Longer Active Capo Poe MD Active MIRALAX PACK 1 po qd PRN Constipation POLYETHYLENE GLYCOL 3350 67086759568 Active Capo Poe MD Active DULERA 100-5 MCG/ACT AERO 2 puffs BID MOMETASONE FURO- FORMOTEROL FUM 92956931159 Active Capo Poe MD Active ZOLOFT 100 MG TABS 1 po daily SERTRALINE HCL 32828246099 No Longer Active Zoran Arzola MD Active FERROUS SULFATE 325 (65 FE) MG TABS 1 tablet by mouth daily FERROUS SULFATE 02778269939 No Longer Active Capo Poe MD Active HYDROCODONE-ACETAMINOPHEN 7.5-300 MG TABS take one every six hours HYDROCODONE-ACETAMINOPHEN 61555466843 No Longer Active Capo Poe MD Active TRIAMCINOLONE ACETONIDE 0.1 % OINT Apply to affected areas TID for up to 2 weeks TRIAMCINOLONE ACETONIDE 86090323104 No Longer Active Joe Vargas RN Active FERROUS SULFATE 325 (65 FE) MG TABS Take one by mouth daily FERROUS SULFATE 18299895677 No Longer Active Capo Poe MD Active TRIAMCINOLONE ACETONIDE 0.1 % OINT Apply to affected areas TID for up to 2 weeks TRIAMCINOLONE ACETONIDE 80624116839 No Longer Active Capo Poe MD Active ADULT ASPIRIN LOW STRENGTH 81 MG TBDP qd ASPIRIN 95438663029 Active Zoran Arzola MD Active ALEVE 220 MG TAB prn NAPROXEN SODIUM 25225391932 Active Capo Poe MD Active MACROBID 100 MG CAP 1 cap by mouth twice daily NITROFURANTOIN MONOHYD MACRO 90567225691 No Longer Active Dona Becker Active AZITHROMYCIN 250 MG TABS 2 po qd x 1 day, then 1 po qd x 4 days AZITHROMYCIN 60379311016 No Longer Active Capo Poe MD Active FISH OIL 500 MG CAPS by mouth twice a day OMEGA-3 FATTY ACIDS 30046727635 Active Capo Poe MD Active FLAXSEED OIL 1000 MG CAPS Take two by mouth daily FLAXSEED (LINSEED) 17201138533 Active Zoran Arzola MD Active RED YEAST RICE 600 MG CAPS Take two by mouth daily RED YEAST RICE EXTRACT 99890784368 Active Zoran Arzola MD Active ICAPS MV TABS 2 po daily MULTIPLE VITAMINS-MINERALS 42420227139 Active Jam Arnold DO Active MACROBID 100 MG CAP 1 cap by mouth twice daily MACROBID 100 MG CAP 2035759 NITROFURANTOIN MONOHYD MACRO Inactive FERROUS SULFATE 325 (65 FE) MG TABS Take one by mouth daily FERROUS SULFATE 325 (65 FE) MG TABS 570909 FERROUS SULFATE Inactive HYDROCODONE-ACETAMINOPHEN 7.5-300 MG TABS take one every six hours HYDROCODONE-ACETAMINOPHEN 7.5-300 MG TABS 244845 HYDROCODONE- ACETAMINOPHEN Inactive FERROUS SULFATE 325 (65 FE) MG TABS 1 tablet by mouth daily FERROUS SULFATE 325 (65 FE) MG TABS 409279 FERROUS SULFATE Inactive ZOLOFT 100 MG TABS 1 po daily ZOLOFT 100 MG TABS 834119 SERTRALINE HCL Inactive SERTRALINE HCL 100 MG ORAL TABS take 1 tab daily SERTRALINE HCL 100 MG ORAL TABS 729063 SERTRALINE HCL Inactive TRAMADOL HCL 50 MG TABS 1-2 tablets every 6 hours as needed for pain TRAMADOL HCL 50 MG TABS 570254 TRAMADOL HCL Inactive NICOTINE 14 MG/24HR TRANS PT24 Apply/Change q 24hr NICOTINE 14 MG/24HR TRANS PT24 741573 NICOTINE Inactive FLOMAX 0.4 MG CAPS Take one by mouth daily FLOMAX 0.4 MG CAPS 022913 TAMSULOSIN HCL Inactive LORTAB 7.5-325 MG ORAL TABS 1 po q 6 hr prn pain LORTAB 7.5- 325 MG ORAL TABS 749838 HYDROCODONE-ACETAMINOPHEN Inactive VIIBRYD STARTER PACK 10 & 20 MG ORAL KIT 1 po qd as directed 2015 VIIBRYD STARTER PACK 10 & 20 MG ORAL KIT VILAZODONE HCL Inactive LISINOPRIL 10 MG TABS 1 tablet by mouth daily LISINOPRIL 10 MG TABS 137738 LISINOPRIL Inactive MULTIVITAMINS CAPS Take one by mouth daily MULTIVITAMINS CAPS MULTIPLE VITAMIN Inactive AZITHROMYCIN 250 MG TABS 2 po qd x 1 day, then 1 po qd x 4 days AZITHROMYCIN 250 MG TABS 8237702 AZITHROMYCIN Inactive TRIAMCINOLONE ACETONIDE 0.1 % OINT Apply to affected areas TID for up to 2 weeks TRIAMCINOLONE ACETONIDE 0.1 % OINT 7016741 TRIAMCINOLONE ACETONIDE Inactive TRIAMCINOLONE ACETONIDE 0.1 % OINT Apply to affected areas TID for up to 2 weeks TRIAMCINOLONE ACETONIDE 0.1 % OINT 9553545 TRIAMCINOLONE ACETONIDE Inactive PREDNISONE 20 MG ORAL TABS 2 po qd x 5 days PREDNISONE 20 MG ORAL TABS 852476 PREDNISONE Inactive Advance Directives Directive Description Start [...] Panel - Chemistry sodium, serum 137 mmol/L 732-033 0752/07/26 carbon dioxide, venous blood 27.3 mmol/L 21.0-32.0 [...] ... - Chemistry sodium, serum 141 mmol/L 947-789 5770/01/27 carbon dioxide, venous blood 29.7 mmol/L 21.0-32.0 [...] % 11.0-15.0 platelet count 214 THOUSAND/UL 10*3/mm3 885-822 5306/03/31 mean platelet volume 8.4 fL 7.5-12.5 Encounters Code Encounter Date Provider Facility CPT-04481 Level 3 Est. Patient 11:31:49 CDT Leanna Baker APRN [facility] CPT-11660 Level 3 Est. Patient 09:44:06 CDT Capo Poe MD [facility] CPT-01818 Level 4 Est. Patient 09:26:11 PSYCHOLOGIST ENGINEERING Capo Poe MD [facility] CPT-03888 Level 4 Est. Patient 08:53:08 CDT Capo Poe MD [facility] CPT-00485 Level 4 Est. Patient 10:22:57 CDT Capo Poe MD [facility] CPT-14766 Level 4 Est. Patient 13:44:30 CDT Capo Poe MD [facility] CPT-08192 Level 3 Est. Patient 14:59:32 PSYCHOLOGIST ENGINEERING Capo Poe MD [facility] CPT-90585 Level 4 Est. Patient 10:46:15 PSYCHOLOGIST ENGINEERING Capo Poe MD [facility] CPT-49045 Level 3 Est. Patient 11:00:53 CDT Capo Poe MD [facility] CPT-80062 Level 3 Est. Patient 09:39:35 CDT Capo Poe MD [facility] CPT-37047 Level 3 Est. Patient 09:27:01 CDT Capo Poe MD [facility] CPT-89910 Level 3 Est. Patient 18:37:08 CDT Zoran Arzola MD [facility] CPT-78491 Level 3 Est. Patient 15:00:28 CDT Capo Poe MD [facility] CPT-16666 Level 3 Est. Patient 08:20:19 CDT Zoran Arzola MD [facility] CPT-26891 Level 3 Est. Patient 09:22:21 CDT Capo Poe MD [facility] CPT-84756 Level 4 Est. Patient 10:21:30 PSYCHOLOGIST ENGINEERING Capo Poe MD [facility] CPT-20395 Level 3 Est. Patient 17:08:51 PSYCHOLOGIST ENGINEERING Zoran Arzola MD [facility] CPT-78496 Level 4 Est. Patient 09:44:42 CDT Capo Poe MD [facility] CPT-05252 Level 4 Est. Patient 10:39:29 CDT Capo Poe MD [facility] CPT-20418 Level 3 Est. Patient 17:45:23 CDT Zoran Arzola MD [facility] CPT-00889 Level 4 Est. Patient 08:50:44 CDT Capo Poe MD [facility] CPT-76880 Level 3 Est. Patient 10:39:51 PSYCHOLOGIST ENGINEERING Capo Poe MD [facility] CPT-38766 Level 4 Est. Patient 09:44:24 PSYCHOLOGIST ENGINEERING Capo Poe MD [facility] CPT-36483 Level 3 Est. Patient 14:48:42 PSYCHOLOGIST ENGINEERING Zoran Arzola MD [facility] CPT-08199 Level 4 Est. Patient 10:24:02 CDT Capo Poe MD [facility] CPT-43181 Level 3 Est. Patient 15:42:00 CDT Maya WRIGHTP [facility] CPT-80397 Level 4 Est. Patient 13:34:15 CDT Capo Poe MD [facility] CPT-17155 Level 3 Est. Patient 15:32:10 PSYCHOLOGIST ENGINEERING Zoran Arzola MD [facility] CPT-65260 Level 3 New Patient 17:17:19 PSYCHOLOGIST ENGINEERING Zoran Arzola MD [facility] CPT-89748 Level 4 Est. Patient 10:25:01 PSYCHOLOGIST ENGINEERING Capo Poe MD [facility] CPT-30846 Level 3 Est. Patient 10:10:42 CDT Zoran Arzola MD [facility] CPT-76369 Level 3 Est. Patient 22:30:02 CDT Zoran Arzola MD [facility] CPT-75100 Level 4 Est. Patient 09:54:20 CDT Capo Poe MD [facility] CPT-36378 Level 3 Est. Patient 10:48:30 CDT Capo Poe MD [facility] CPT-87114 Level 3 Est. Patient 11:24:45 CDT Capo Poe MD [facility] CPT-11210 Level 3 Est. Patient 15:23:48 PSYCHOLOGIST ENGINEERING Capo Poe MD [facility] CPT-55299 Level 3 Est. Patient 15:10:03 PSYCHOLOGIST ENGINEERING Capo Poe MD [facility] CPT-10888 Level 3 Est. Patient 16:18:40 CDT Zoran Arzola MD [facility] Procedures Code Procedure Name Date Entry Date Standard Description CPT-30986 Chest 2V Frontal and Lat - XRAY USE ONLY 11:51:24 CDT CPT-12437 Venipuncture Draw Fee 11:31:49 CDT CPT-74213 Hemoccult IFOBT - LAB USE ONLY 14:11:43 PSYCHOLOGIST ENGINEERING CPT-77962 TPSA - LAB USE ONLY 10:37:52 PSYCHOLOGIST ENGINEERING CPT-92366 TSH - LAB USE ONLY 10:37:51 PSYCHOLOGIST ENGINEERING CPT-56690 CMP - LAB USE ONLY 10:37:51 PSYCHOLOGIST ENGINEERING CPT-41412 CBC with Diff - LAB USE ONLY 10:37:51 PSYCHOLOGIST ENGINEERING CPT-08894 Venipuncture Draw Fee 10:37:51 PSYCHOLOGIST ENGINEERING CPT-000 Give Pneumovax 10:39:30 CDT CPT-36041 Venipuncture Draw Fee 09:32:34 CDT CPT-G0438 Initial Annual Wellness Exam 10:24:35 CDT CPT-46135 Venipuncture Draw Fee 09:46:29 CDT CPT-05309 Venipuncture Draw Fee 14:30:06 CDT CPT-42012 Venipuncture Draw Fee 10:58:22 CDT CPT-37114 Abd single AP View 08:32:00 CDT CPT-32292 Postop F/U Visit 21:13:08 CDT CPT-26326 Abd single AP View 15:50:24 CDT CPT-39498 Cystoscopy W/rem FB 15:21:28 CDT CPT-75757 Abd single AP View 14:06:45 CDT CPT-72578 Postop F/U Visit 09:48:32 CDT CPT-31199 Abd single AP View 13:58:26 CDT CPT-43567 Hip comp min 2V 10:27:18 PSYCHOLOGIST ENGINEERING CPT-71048 Urine Dip (Floor Use Only) 13:41:01 PSYCHOLOGIST ENGINEERING CPT-06281 Postop F/U Visit 11:17:48 CDT CPT-LR Lesion Removal 11:50:22 CDT CPT-OV Office Visit 11:50:22 CDT CPT-70372 Pneumovax 23 10:55:48 CDT CPT-96860 Administration single or combination vaccine inc oral 10 :55:48 CDT CPT-Cryo Cryotherapy 11:18:11 CDT CPT-OV Office Visit 11:18:11 CDT CPT-02859 LS spine AP and Lat 09:05:22 CDT CPT-36562 Bladder Scan 15:42:00 CDT CPT-49726 Cystoscopy 15:42:00 CDT CPT-OV Office Visit 16:37:19 PSYCHOLOGIST ENGINEERING CPT-29307 Bladder Scan 15:32:10 PSYCHOLOGIST ENGINEERING CPT-17349 Cystoscopy 15:32:10 PSYCHOLOGIST ENGINEERING CPT-63851 Abd single AP View 14:05:59 PSYCHOLOGIST ENGINEERING CPT-73862 Pill cam small bowel 09:48:39 PSYCHOLOGIST ENGINEERING CPT-30669 Urine Dip (Floor Use Only) 17:17:19 PSYCHOLOGIST ENGINEERING CPT-97403 Bladder Scan 17:17:19 PSYCHOLOGIST ENGINEERING CPT-OV Office Visit 11:50:26 PSYCHOLOGIST ENGINEERING CPT-21944 Bladder Scan 10:10:42 CDT CPT-05127 Venipuncture Draw Fee 09:14:04 CDT CPT-47375 Chest 2V Frontal and Lat 10:10:49 CDT CPT-47248 LS spine comp w obliq 11:50:11 CDT CPT-18815 Venipuncture Draw Fee 08:52:57 PSYCHOLOGIST ENGINEERING CPT-18528 Cystoscopy W/rem FB 18:37:28 CDT CPT-42246 Abd single AP View 16:18:40 CDT CPT-54889 Abd compl w upright 17:30:59 CDT
[2016-11-22] MEDS ORDERED: HYDR473S50 PO (16:10)
--- OUTSIDE RECORDS SUMMARY | 2016-11-22 16:10 | XMS REPORT | Clinical Summary ---
Author Author Admin, QIE Organization [facility] Address Unknown Phone Unavailable Allergies, Adverse Reactions, [...] 1 tablet by mouth daily CITALOPRAM HYDROBROMIDE 87966799032 Active Felisamario TEIXEIRA Active CLARITIN 5 MG ORAL CHEW 1 tab po q day LORATADINE 05854206796 Active Felisa Daphney RMA Active VIIBRYD STARTER PACK 10 & 20 MG ORAL KIT 1 po qd as directed 2015 VILAZODONE HCL 81483208345 No Longer Active Felisa TEIXEIRA Active HYDROXYZINE HCL 25 MG TAB 1 po qHS PRN Insomnia HYDROXYZINE HCL 40445821874 Active Capo Poe MD Active LISINOPRIL 10 MG TABS 1 tablet by mouth daily LISINOPRIL 24321893594 Active Capo Poe MD Active LORTAB 7.5-325 MG ORAL TABS 1 po q 6 hr prn pain HYDROCODONE- ACETAMINOPHEN 02907100082 No Longer Active Capo Poe MD Active FLOMAX 0.4 MG CAPS Take one by mouth daily TAMSULOSIN HCL 36107273035 No Longer Active Capo Poe MD Active TRIAMCINOLONE ACETONIDE 0.1 % CREA Apply to affected areas TID for up to 2 weeks TRIAMCINOLONE ACETONIDE 01968145064 Active Capo Poe MD Active NICOTINE 14 MG/24HR TRANS PT24 Apply/Change q 24hr NICOTINE 75194481453 No Longer Active Capo Poe MD Active TRAMADOL HCL 50 MG TABS 1-2 tablets every 6 hours as needed for pain TRAMADOL HCL 77016384927 No Longer Active Capo Poe MD Active SERTRALINE HCL 100 MG ORAL TABS take 1 tab daily SERTRALINE HCL 18065509332 No Longer Active Capo Poe MD Active LISINOPRIL-HYDROCHLOROTHIAZIDE 10-12.5 MG TABS 0.5 tab by mouth daily LISINOPRIL-HYDROCHLOROTHIAZIDE 62290660556 No Longer Active Capo Poe MD Active OMEPRAZOLE 20 MG CPDR 1 tablet by mouth daily OMEPRAZOLE 54589351389 Active Capo Poe MD Active WELLBUTRIN SR 150 MG ORAL [id number] 1 po BID BUPROPION HCL 69954314126 No Longer Active Capo Poe MD Active MIRALAX PACK 1 po qd PRN Constipation POLYETHYLENE GLYCOL 3350 37712381909 Active Capo Poe MD Active DULERA 100-5 MCG/ACT AERO 2 puffs BID MOMETASONE FURO- FORMOTEROL FUM 89508156773 Active Capo Poe MD Active ZOLOFT 100 MG TABS 1 po daily SERTRALINE HCL 21671760844 No Longer Active Zoran Arzola MD Active FERROUS SULFATE 325 (65 FE) MG TABS 1 tablet by mouth daily FERROUS SULFATE 44598920732 No Longer Active Capo Poe MD Active HYDROCODONE-ACETAMINOPHEN 7.5-300 MG TABS take one every six hours HYDROCODONE-ACETAMINOPHEN 63279637552 No Longer Active Capo Poe MD Active TRIAMCINOLONE ACETONIDE 0.1 % OINT Apply to affected areas TID for up to 2 weeks TRIAMCINOLONE ACETONIDE 99986329646 No Longer Active Joe Vargas RN Active FERROUS SULFATE 325 (65 FE) MG TABS Take one by mouth daily FERROUS SULFATE 47542908269 No Longer Active Capo Poe MD Active TRIAMCINOLONE ACETONIDE 0.1 % OINT Apply to affected areas TID for up to 2 weeks TRIAMCINOLONE ACETONIDE 86550445102 No Longer Active Capo Poe MD Active ADULT ASPIRIN LOW STRENGTH 81 MG TBDP qd ASPIRIN 19150472998 Active Zoran Arzola MD Active ALEVE 220 MG TAB prn NAPROXEN SODIUM 41096398179 Active Capo Poe MD Active MACROBID 100 MG CAP 1 cap by mouth twice daily NITROFURANTOIN MONOHYD MACRO 98599906993 No Longer Active Dona Becker Active AZITHROMYCIN 250 MG TABS 2 po qd x 1 day, then 1 po qd x 4 days AZITHROMYCIN 38830612422 No Longer Active Capo Poe MD Active FISH OIL 500 MG CAPS by mouth twice a day OMEGA-3 FATTY ACIDS 15827956169 Active Capo Poe MD Active FLAXSEED OIL 1000 MG CAPS Take two by mouth daily FLAXSEED (LINSEED) 44444994701 Active Zoran Arzola MD Active RED YEAST RICE 600 MG CAPS Take two by mouth daily RED YEAST RICE EXTRACT 45816015018 Active Zoran Arzola MD Active MULTIVITAMINS CAPS Take one by mouth daily MULTIPLE VITAMIN 81926071454 Elza Arzola MD Active ICAPS MV TABS 2 po daily MULTIPLE VITAMINS-MINERALS 41739166599 Active Jam Arnold DO Active MACROBID 100 MG CAP 1 cap by mouth twice daily MACROBID 100 MG CAP 9079862 NITROFURANTOIN MONOHYD MACRO Inactive FERROUS SULFATE 325 (65 FE) MG TABS Take one by mouth daily FERROUS SULFATE 325 (65 FE) MG TABS 683970 FERROUS SULFATE Inactive HYDROCODONE-ACETAMINOPHEN 7.5-300 MG TABS take one every six hours HYDROCODONE-ACETAMINOPHEN 7.5-300 MG TABS 381611 HYDROCODONE- ACETAMINOPHEN Inactive FERROUS SULFATE 325 (65 FE) MG TABS 1 tablet by mouth daily FERROUS SULFATE 325 (65 FE) MG TABS 250281 FERROUS SULFATE Inactive ZOLOFT 100 MG TABS 1 po daily ZOLOFT 100 MG TABS 532192 SERTRALINE HCL Inactive SERTRALINE HCL 100 MG ORAL TABS take 1 tab daily SERTRALINE HCL 100 MG ORAL TABS 169535 SERTRALINE HCL Inactive TRAMADOL HCL 50 MG TABS 1-2 tablets every 6 hours as needed for pain TRAMADOL HCL 50 MG TABS 195393 TRAMADOL HCL Inactive NICOTINE 14 MG/24HR TRANS PT24 Apply/Change q 24hr NICOTINE 14 MG/24HR TRANS PT24 268949 NICOTINE Inactive FLOMAX 0.4 MG CAPS Take one by mouth daily FLOMAX 0.4 MG CAPS 026055 TAMSULOSIN HCL Inactive LORTAB 7.5-325 MG ORAL TABS 1 po q 6 hr prn pain LORTAB 7.5- 325 MG ORAL TABS 152377 HYDROCODONE-ACETAMINOPHEN Inactive VIIBRYD STARTER PACK 10 & 20 MG ORAL KIT 1 po qd as directed 2015 VIIBRYD STARTER PACK 10 & 20 MG ORAL KIT VILAZODONE HCL Inactive AZITHROMYCIN 250 MG TABS 2 po qd x 1 day, then 1 po qd x 4 days AZITHROMYCIN 250 MG TABS 6399236 AZITHROMYCIN Inactive TRIAMCINOLONE ACETONIDE 0.1 % OINT Apply to affected areas TID for up to 2 weeks TRIAMCINOLONE ACETONIDE 0.1 % OINT 6546806 TRIAMCINOLONE ACETONIDE Inactive TRIAMCINOLONE ACETONIDE 0.1 % OINT Apply to affected areas TID for up to 2 weeks TRIAMCINOLONE ACETONIDE 0.1 % OINT 1024342 TRIAMCINOLONE ACETONIDE Inactive Advance Directives Directive Description [...] urine 30 - 300 mg/g mg/g{creat} 0-29 calcium, serum 8.8 mg/dL 8.5-10.1 aspartate aminotransferase (SGOT), serum 20 U/L 15-37 blood glucose 129 mg/dL 65-110 chloride, serum 101 mmol/L 98-107 potassium, serum 4.6 mmol/L 3.5-5.2 carbon dioxide, venous blood 25.5 mmol/L 21.0-32.0 sodium, serum 138 mmol/L 285-935 9306/03/18 alanine aminotransferase (SGPT), serum 26 U/L 12-78 creatinine, serum 1.87 mg/dL 0.55-1.30 urea nitrogen, blood 20 mg/dL 7-18 bilirubin, serum, total 0.40 mg/dL 0.00-1.00 cholesterol, serum 251 mg/dL 092-447 8077/03/18 triglyceride, serum, fasting 135 mg/dL 30-200 HDL [...] 0.00-4.00 Encounters Code Encounter Date Provider Facility CPT-69834 Level 4 Est. Patient 08:53:08 CDT Capo Poe MD [facility] CPT-08114 Level 4 Est. Patient 10:22:57 CDT Capo Poe MD [facility] CPT-06353 Level 4 Est. Patient 13:44:30 CDT Capo Poe MD [facility] CPT-00787 Level 3 Est. Patient 14:59:32 LICENSED FUNERAL DIRECTOR AND EMBALMER Capo Poe MD [facility] CPT-22556 Level 4 Est. Patient 10:46:15 LICENSED FUNERAL DIRECTOR AND EMBALMER Capo Poe MD [facility] CPT-55341 Level 3 Est. Patient 11:00:53 CDT Capo Poe MD [facility] CPT-52466 Level 3 Est. Patient 09:39:35 CDT Capo Poe MD [facility] CPT-27756 Level 3 Est. Patient 09:27:01 CDT Capo Poe MD [facility] CPT-77832 Level 3 Est. Patient 18:37:08 CDT Zoran Arzola MD [facility] CPT-08912 Level 3 Est. Patient 15:00:28 CDT Capo Poe MD [facility] CPT-11650 Level 3 Est. Patient 08:20:19 CDT Zoran Arzola MD [facility] CPT-63000 Level 3 Est. Patient 09:22:21 CDT Capo Poe MD [facility] CPT-56291 Level 4 Est. Patient 10:21:30 LICENSED FUNERAL DIRECTOR AND EMBALMER Capo Poe MD [facility] CPT-45054 Level 3 Est. Patient 17:08:51 LICENSED FUNERAL DIRECTOR AND EMBALMER Zoran Arzola MD [facility] CPT-48468 Level 4 Est. Patient 09:44:42 CDT Capo Poe MD [facility] CPT-62238 Level 4 Est. Patient 10:39:29 CDT Capo Poe MD [facility] CPT-63633 Level 3 Est. Patient 17:45:23 CDT Zoran Arzola MD [facility] CPT-67217 Level 4 Est. Patient 08:50:44 CDT Capo Poe MD [facility] CPT-93952 Level 3 Est. Patient 10:39:51 LICENSED FUNERAL DIRECTOR AND EMBALMER Capo Poe MD [facility] CPT-53709 Level 4 Est. Patient 09:44:24 LICENSED FUNERAL DIRECTOR AND EMBALMER Capo Poe MD [facility] CPT-31681 Level 3 Est. Patient 14:48:42 LICENSED FUNERAL DIRECTOR AND EMBALMER Zoran Arzola MD [facility] CPT-72711 Level 4 Est. Patient 10:24:02 CDT Capo Poe MD [facility] CPT-51026 Level 3 Est. Patient 15:42:00 CDT Maya WRIGHTP [facility] CPT-45917 Level 4 Est. Patient 13:34:15 CDT Capo Poe MD [facility] CPT-97668 Level 3 Est. Patient 15:32:10 LICENSED FUNERAL DIRECTOR AND EMBALMER Zoran Arzola MD [facility] CPT-06037 Level 3 New Patient 17:17:19 LICENSED FUNERAL DIRECTOR AND EMBALMER Zoran Arzola MD [facility] CPT-85852 Level 4 Est. Patient 10:25:01 LICENSED FUNERAL DIRECTOR AND EMBALMER Capo Poe MD [facility] CPT-69721 Level 3 Est. Patient 10:10:42 CDT Zoran Arzola MD [facility] CPT-95768 Level 3 Est. Patient 22:30:02 CDT Zoran Arzola MD [facility] CPT-94996 Level 4 Est. Patient 09:54:20 CDT Capo Poe MD [facility] CPT-07395 Level 3 Est. Patient 10:48:30 CDT Capo Poe MD [facility] CPT-14275 Level 3 Est. Patient 11:24:45 CDT Capo Poe MD [facility] CPT-42562 Level 3 Est. Patient 15:23:48 LICENSED FUNERAL DIRECTOR AND EMBALMER Capo Poe MD [facility] CPT-08508 Level 3 Est. Patient 15:10:03 LICENSED FUNERAL DIRECTOR AND EMBALMER Capo Poe MD [facility] CPT-03818 Level 3 Est. Patient 16:18:40 CDT Zoran Arzola MD [facility] Procedures Code Procedure Name Date Entry Date Standard Description CPT-06159 Venipuncture Draw Fee 09:32:34 CDT CPT-G0438 Initial Annual Wellness Exam 10:24:35 CDT CPT-29452 Venipuncture Draw Fee 09:46:29 CDT CPT-67250 Venipuncture Draw Fee 14:30:06 CDT CPT-18100 Venipuncture Draw Fee 10:58:22 CDT CPT-52329 Abd single AP View 08:32:00 CDT CPT-77109 Postop F/U Visit 21:13:08 CDT CPT-06923 Abd single AP View 15:50:24 CDT CPT-27198 Cystoscopy W/rem FB 15:21:28 CDT CPT-56511 Abd single AP View 14:06:45 CDT CPT-88043 Postop F/U Visit 09:48:32 CDT CPT-02142 Abd single AP View 13:58:26 CDT CPT-06463 Hip comp min 2V 10:27:18 LICENSED FUNERAL DIRECTOR AND EMBALMER CPT-54075 Urine Dip (Floor Use Only) 13:41:01 LICENSED FUNERAL DIRECTOR AND EMBALMER CPT-21400 Postop F/U Visit 11:17:48 CDT CPT-LR Lesion Removal 11:50:22 CDT CPT-OV Office Visit 11:50:22 CDT CPT-36273 Pneumovax 23 10:55:48 CDT CPT-98601 Administration single or combination vaccine inc oral 10 :55:48 CDT CPT-Cryo Cryotherapy 11:18:11 CDT CPT-OV Office Visit 11:18:11 CDT CPT-26109 LS spine AP and Lat 09:05:22 CDT CPT-33329 Bladder Scan 15:42:00 CDT CPT-45270 Cystoscopy 15:42:00 CDT CPT-OV Office Visit 16:37:19 LICENSED FUNERAL DIRECTOR AND EMBALMER CPT-52793 Bladder Scan 15:32:10 LICENSED FUNERAL DIRECTOR AND EMBALMER CPT-36483 Cystoscopy 15:32:10 LICENSED FUNERAL DIRECTOR AND EMBALMER CPT-83826 Abd single AP View 14:05:59 LICENSED FUNERAL DIRECTOR AND EMBALMER CPT-08426 Pill cam small bowel 09:48:39 LICENSED FUNERAL DIRECTOR AND EMBALMER CPT-85641 Urine Dip (Floor Use Only) 17:17:19 LICENSED FUNERAL DIRECTOR AND EMBALMER CPT-11229 Bladder Scan 17:17:19 LICENSED FUNERAL DIRECTOR AND EMBALMER CPT-OV Office Visit 11:50:26 LICENSED FUNERAL DIRECTOR AND EMBALMER CPT-17068 Bladder Scan 10:10:42 CDT CPT-49468 Venipuncture Draw Fee 09:14:04 CDT CPT-87967 Chest 2V Frontal and Lat 10:10:49 CDT CPT-85720 LS spine comp w obliq 11:50:11 CDT CPT-07554 Venipuncture Draw Fee 08:52:57 LICENSED FUNERAL DIRECTOR AND EMBALMER CPT-18143 Cystoscopy W/rem FB 18:37:28 CDT CPT-15786 Abd single AP View 16:18:40 CDT CPT-85868 Abd compl w upright 17:30:59 CDT
--- NOTE | 2016-11-22 16:11 | Discharge Inst-Simple/Standard ---
Discharge Inst-Standard Discharge Medications New, Converted or Re-Newed RX: RX on Chart Patient Instructions/Follow Up Plan of Care/Instructions/FU: Dressing off in 48 hours. May use the port Activity as Tolerated: Yes Discharge Diet: No Restrictions LAUREN PAL MD Nov 22, 2016 16:10
--- OUTSIDE RECORDS SUMMARY | 2016-11-22 16:11 | XMS REPORT | Clinical Summary ---
[...] MD Screening for malignant neoplasms of prostate CALCULUS OF KIDNEY ICD-592.0 Inactive Capo Poe MD URETERAL CALCULUS ICD-592.1 Inactive Capo Poe MD FLANK PAIN ICD-789.09 Inactive Capo Poe MD 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 Inactive Capo Poe MD RENAL CALCULUS ICD-592.9 Inactive Cpao Poe MD FLANK PAIN, RIGHT ICD-789.09 Inactive Capo Poe MD NAUSEA AND VOMITING ICD-787.01 Inactive Capo Poe MD SCIATICA ICD-724.3 Inactive [...] BLADDER CALCULUS ICD-594.1 Inactive Capo Poe MD Skin lesion ICD-709.9 [...] Capo Poe MD Prostate cancer screening ICD-V76.44 Clyde Poe MD HEMATURIA ICD-599.70 Inactive Capo Poe MD Near syncope ICD-780.2 Inactive Capo Poe MD Medication List Medication Instructions Start Date Stop Date Generic Name NDC Status Provider Patient Instruction TRAMADOL HCL 50 MG TABS 1-2 tablets every 6 hours as needed for pain TRAMADOL HCL 51965657521 No Longer Active Capo Poe MD Active SERTRALINE HCL 100 MG ORAL TABS take 1 tab daily SERTRALINE HCL 99718485337 No Longer Active Capo Poe MD Active LISINOPRIL-HYDROCHLOROTHIAZIDE 10-12.5 MG TABS 0.5 tab by mouth daily LISINOPRIL-HYDROCHLOROTHIAZIDE 88042250791 Active Capo Poe MD Active OMEPRAZOLE 20 MG CPDR 1 tablet by mouth daily OMEPRAZOLE 07198116224 Active Capo Poe MD Active WELLBUTRIN SR 150 MG ORAL [id number] 1 po BID BUPROPION HCL 80683766403 Active Capo Poe MD Active NICOTINE 14 MG/24HR TRANS PT24 Apply/Change q 24hr NICOTINE 28735984523 Active Capo Poe MD Active LORTAB 7.5-325 MG ORAL TABS 1 po q 6 hr prn pain HYDROCODONE- ACETAMINOPHEN 36220782827 Active Capo Poe MD Active FLOMAX 0.4 MG CAPS Take one by mouth daily TAMSULOSIN HCL 29942123202 Active Capo Poe MD Active MIRALAX PACK 1 po qd PRN Constipation POLYETHYLENE GLYCOL 3350 41755095057 Active Capo Poe MD Active DULERA 100-5 MCG/ACT AERO 2 puffs BID MOMETASONE FURO- FORMOTEROL FUM 58259112196 Active Capo Poe MD Active ZOLOFT 100 MG TABS 1 po daily SERTRALINE HCL 45577138904 No Longer Active Zoran Arzola MD Active FERROUS SULFATE 325 (65 FE) MG TABS 1 tablet by mouth daily FERROUS SULFATE 49458799021 No Longer Active Capo Poe MD Active HYDROCODONE-ACETAMINOPHEN 7.5-300 MG TABS take one every six hours HYDROCODONE-ACETAMINOPHEN 72161595249 No Longer Active Capo Poe MD Active TRIAMCINOLONE ACETONIDE 0.1 % OINT Apply to affected areas TID for up to 2 weeks TRIAMCINOLONE ACETONIDE 53490268434 No Longer Active Joe Vargas RN Active FERROUS SULFATE 325 (65 FE) MG TABS Take one by mouth daily FERROUS SULFATE 09988645826 No Longer Active Capo Poe MD Active TRIAMCINOLONE ACETONIDE 0.1 % OINT Apply to affected areas TID for up to 2 weeks TRIAMCINOLONE ACETONIDE 65815080564 No Longer Active Capo Poe MD Active ADULT ASPIRIN LOW STRENGTH 81 MG TBDP qd ASPIRIN 58071735942 Active Zoran Arzola MD Active ALEVE 220 MG TAB prn NAPROXEN SODIUM 87321685987 Active Capo Poe MD Active MACROBID 100 MG CAP 1 cap by mouth twice daily NITROFURANTOIN MONOHYD MACRO 55032302785 No Longer Active Dona Becker Active AZITHROMYCIN 250 MG TABS 2 po qd x 1 day, then 1 po qd x 4 days AZITHROMYCIN 71841411205 No Longer Active Capo Poe MD Active FISH OIL 500 MG CAPS by mouth twice a day OMEGA-3 FATTY ACIDS 34684954021 Active Capo Poe MD Active FLAXSEED OIL 1000 MG CAPS Take two by mouth daily FLAXSEED (LINSEED) 13260951540 Active Zoran Arzola MD Active RED YEAST RICE 600 MG CAPS Take two by mouth daily RED YEAST RICE EXTRACT 33307952090 Active Zoran Arzola MD Active MULTIVITAMINS CAPS Take one by mouth daily MULTIPLE VITAMIN 16084561605 Active Zoran Arzola MD Active ICAPS MV TABS 2 po daily MULTIPLE VITAMINS-MINERALS 32591282809 Active Jam Arnold DO Active MACROBID 100 MG CAP 1 cap by mouth twice daily MACROBID 100 MG CAP 9148663 NITROFURANTOIN MONOHYD MACRO Inactive FERROUS SULFATE 325 (65 FE) MG TABS Take one by mouth daily FERROUS SULFATE 325 (65 FE) MG TABS 510687 FERROUS SULFATE Inactive HYDROCODONE-ACETAMINOPHEN 7.5-300 MG TABS take one every six hours HYDROCODONE-ACETAMINOPHEN 7.5-300 MG TABS 955483 HYDROCODONE- ACETAMINOPHEN Inactive FERROUS SULFATE 325 (65 FE) MG TABS 1 tablet by mouth daily FERROUS SULFATE 325 (65 FE) MG TABS 937674 FERROUS SULFATE Inactive ZOLOFT 100 MG TABS 1 po daily ZOLOFT 100 MG TABS 820511 SERTRALINE HCL Inactive SERTRALINE HCL 100 MG ORAL TABS take 1 tab daily SERTRALINE HCL 100 MG ORAL TABS 837225 SERTRALINE HCL Inactive TRAMADOL HCL 50 MG TABS 1-2 tablets every 6 hours as needed for pain TRAMADOL HCL 50 MG TABS 915266 TRAMADOL HCL Inactive AZITHROMYCIN 250 MG TABS 2 po qd x 1 day, then 1 po qd x 4 days AZITHROMYCIN 250 MG TABS 0273353 AZITHROMYCIN Inactive TRIAMCINOLONE ACETONIDE 0.1 % OINT Apply to affected areas TID for up to 2 weeks TRIAMCINOLONE ACETONIDE 0.1 % OINT 1499226 TRIAMCINOLONE ACETONIDE Inactive TRIAMCINOLONE ACETONIDE 0.1 % OINT Apply to affected areas TID for up to 2 weeks TRIAMCINOLONE ACETONIDE 0.1 % OINT 1913579 TRIAMCINOLONE ACETONIDE Inactive Advance Directives Directive Description [...] Panel - Chemistry sodium, serum 139 mmol/L 271-411 6838/07/30 potassium, serum 4.7 mmol/L 3.5-5.2 chloride, serum 101 mmol/L 98-107 carbon dioxide, venous blood 34.8 mmol/L 21.0-32.0 blood glucose 124 mg/dL 65-110 calcium, serum 8.9 mg/dL 8.5-10.1 urea nitrogen, blood 18 mg/dL 7-18 creatinine, serum 1.40 mg/dL 0.60-1.30 Lab Report: Lipid Panel, Comp. Metabolic Panel, CBC - Chemistry cholesterol, serum 207 mg/dL 560-927 7097/02/11 triglyceride, serum, fasting 74 mg/dL 30-200 HDL cholesterol, serum 62 mg/dL 32-96 LDL cholesterol, serum 130 mg/dL 0-130 sodium, serum 144 mmol/L 680-629 2552/02/11 potassium, serum 5.0 mmol/L 3.5-5.2 chloride, serum [...] negative Encounters Code Encounter Date Provider Facility CPT-23627 Level 4 Est. Patient 10:46:15 [employer]ACLE BUSINESS INTELLIGENCE DEVELOPER Capo Poe MD [facility] CPT-87571 Level 3 Est. Patient 11:00:53 CDT Capo Poe MD [facility] CPT-25596 Level 3 Est. Patient 09:39:35 CDT Capo Poe MD [facility] CPT-65916 Level 3 Est. Patient 09:27:01 CDT Capo Poe MD [facility] CPT-53135 Level 3 Est. Patient 18:37:08 CDT Zoran Arzola MD [facility] CPT-27435 Level 3 Est. Patient 15:00:28 CDT Capo Poe MD [facility] CPT-27283 Level 3 Est. Patient 08:20:19 CDT Zoran Arzola MD [facility] CPT-03876 Level 3 Est. Patient 09:22:21 CDT Capo Poe MD [facility] CPT-16699 Level 4 Est. Patient 10:21:30 [employer]ACLE BUSINESS INTELLIGENCE DEVELOPER Capo Poe MD [facility] CPT-11603 Level 3 Est. Patient 17:08:51 [employer] BUSINESS INTELLIGENCE DEVELOPER Zoran Arzola MD [facility] CPT-06435 Level 4 Est. Patient 09:44:42 CDT Capo Poe MD [facility] CPT-96902 Level 4 Est. Patient 10:39:29 CDT Capo Poe MD [facility] CPT-38346 Level 3 Est. Patient 17:45:23 CDT Zoran Arzola MD [facility] CPT-52367 Level 4 Est. Patient 08:50:44 CDT Capo Poe MD [facility] CPT-63382 Level 3 Est. Patient 10:39:51 [employer]ACLE BUSINESS INTELLIGENCE DEVELOPER Capo Poe MD [facility] CPT-99608 Level 4 Est. Patient 09:44:24 [employer]ACLE BUSINESS INTELLIGENCE DEVELOPER Capo Poe MD [facility] CPT-40697 Level 3 Est. Patient 14:48:42 [employer]ACLE BUSINESS INTELLIGENCE DEVELOPER Zoran Arzola MD [facility] CPT-63739 Level 4 Est. Patient 10:24:02 CDT Capo Poe MD [facility] CPT-80904 Level 3 Est. Patient 15:42:00 CDT Maya DUKES [facility] CPT-28079 Level 4 Est. Patient 13:34:15 CDT Capo Poe MD [facility] CPT-22154 Level 3 Est. Patient 15:32:10 [employer] INTELLIGENCE DEVELOPER Zoran Arzola MD [facility] CPT-93092 Level 3 New Patient 17:17:19 [employer] BUSINESS INTELLIGENCE DEVELOPER Zoran Arzola MD [facility] CPT-36729 Level 4 Est. Patient 10:25:01 [employer]LE BUSINESS INTELLIGENCE DEVELOPER Capo Poe MD [facility] CPT-49092 Level 3 Est. Patient 10:10:42 CDT Zoran Arzola MD [facility] CPT-47965 Level 3 Est. Patient 22:30:02 CDT Zoran Arzola MD [facility] CPT-85113 Level 4 Est. Patient 09:54:20 CDT Capo Poe MD [facility] CPT-65276 Level 3 Est. Patient 10:48:30 CDT Capo Poe MD [facility] CPT-80104 Level 3 Est. Patient 11:24:45 CDT Capo Poe MD [facility] CPT-46057 Level 3 Est. Patient 15:23:48 [employer]LE [employer] INTELLIGENCE DEVELOPER Capo Poe MD [facility] CPT-54114 Level 3 Est. Patient 15:10:03 [employer]LE BUSINESS INTELLIGENCE DEVELOPER Capo Poe MD [facility] CPT-70902 Level 3 Est. Patient 16:18:40 CDT Zoran Arzola MD [facility] Procedures Code Procedure Name Date Entry Date Standard Description CPT-67228 Venipuncture Draw Fee 14:30:06 CDT CPT-30643 Venipuncture Draw Fee 10:58:22 CDT CPT-14093 Abd single AP View 08:32:00 CDT CPT-25876 Postop F/U Visit 21:13:08 CDT CPT-26949 Abd single AP View 15:50:24 CDT CPT-46080 Cystoscopy W/rem FB 15:21:28 CDT CPT-09257 Abd single AP View 14:06:45 CDT CPT-63161 Postop F/U Visit 09:48:32 CDT CPT-08640 Abd single AP View 13:58:26 CDT CPT-71241 Hip comp min 2V 10:27:18 [employer]TELLIGENCE DEVELOPER CPT-91468 Urine Dip (Floor Use Only) 13:41:01 [employer]TELLIGENCE DEVELOPER CPT-28009 Postop F/U Visit 11:17:48 CDT CPT-LR Lesion Removal 11:50:22 CDT CPT-OV Office Visit 11:50:22 CDT CPT-61588 Pneumovax 23 10:55:48 CDT CPT-76249 Administration single or combination vaccine inc oral 10 :55:48 CDT CPT-Cryo Cryotherapy 11:18:11 CDT CPT-OV Office Visit 11:18:11 CDT CPT-35312 LS spine AP and Lat 09:05:22 CDT CPT-18463 Bladder Scan 15:42:00 CDT CPT-20096 Cystoscopy 15:42:00 CDT CPT-OV Office Visit 16:37:19 [employer] INTELLIGENCE DEVELOPER CPT-24764 Bladder Scan 15:32:10 [employer] INTELLIGENCE DEVELOPER CPT-28097 Cystoscopy 15:32:10 [employer] INTELLIGENCE DEVELOPER CPT-84536 Abd single AP View 14:05:59 [employer]LE BUSINESS INTELLIGENCE DEVELOPER CPT-48965 Pill cam small bowel 09:48:39 [employer]LE BUSINESS INTELLIGENCE DEVELOPER CPT-27860 Urine Dip (Floor Use Only) 17:17:19 [employer]LE BUSINESS INTELLIGENCE DEVELOPER CPT-22097 Bladder Scan 17:17:19 [employer]LE BUSINESS INTELLIGENCE DEVELOPER CPT-OV Office Visit 11:50:26 [employer] INTELLIGENCE DEVELOPER CPT-27871 Bladder Scan 10:10:42 CDT CPT-36380 Venipuncture Draw Fee 09:14:04 CDT CPT-94428 Chest 2V Frontal and Lat 10:10:49 CDT CPT-46014 LS spine comp w obliq 11:50:11 CDT CPT-11152 Venipuncture Draw Fee 08:52:57 [employer] INTELLIGENCE DEVELOPER CPT-70481 Cystoscopy W/rem FB 18:37:28 CDT CPT-01873 Abd single AP View 16:18:40 CDT CPT-65471 Abd compl w upright 17:30:59 CDT
--- OUTSIDE RECORDS SUMMARY | 2016-11-22 16:12 | XMS REPORT | Clinical Summary ---
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 Inactive Capo Poe MD UTI ICD-599.0 Inactive Capo Poe MD Hematuria ICD-599.70 Cldye Poe MD Sciatica, right ICD-724.3 Inactive Capo [...] 1 tablet by mouth daily CITALOPRAM HYDROBROMIDE 90154198291 Active Felisamario TEIXEIRA Active CLARITIN 5 MG ORAL CHEW 1 tab po q day LORATADINE 49960539634 Active Felisa Daphney RMMarva Active VIIBRYD STARTER PACK 10 & 20 MG ORAL KIT 1 po qd as directed 2015 VILAZODONE HCL 29791630171 No Longer Active Felisa TEIXEIRA Active HYDROXYZINE HCL 25 MG TAB 1 po qHS PRN Insomnia HYDROXYZINE HCL 61796267821 Active Capo Poe MD Active LISINOPRIL 10 MG TABS 1 tablet by mouth daily LISINOPRIL 05735833237 Active Capo Poe MD Active LORTAB 7.5-325 MG ORAL TABS 1 po q 6 hr prn pain HYDROCODONE- ACETAMINOPHEN 88932065550 No Longer Active Capo Poe MD Active FLOMAX 0.4 MG CAPS Take one by mouth daily TAMSULOSIN HCL 54845065638 No Longer Active Capo Poe MD Active TRIAMCINOLONE ACETONIDE 0.1 % CREA Apply to affected areas TID for up to 2 weeks TRIAMCINOLONE ACETONIDE 61430460687 Active Capo Poe MD Active NICOTINE 14 MG/24HR TRANS PT24 Apply/Change q 24hr NICOTINE 74566539534 No Longer Active Capo Poe MD Active TRAMADOL HCL 50 MG TABS 1-2 tablets every 6 hours as needed for pain TRAMADOL HCL 16923869908 No Longer Active Capo Poe MD Active SERTRALINE HCL 100 MG ORAL TABS take 1 tab daily SERTRALINE HCL 36690679591 No Longer Active Capo Poe MD Active LISINOPRIL-HYDROCHLOROTHIAZIDE 10-12.5 MG TABS 0.5 tab by mouth daily LISINOPRIL-HYDROCHLOROTHIAZIDE 16736593132 No Longer Active Capo Poe MD Active OMEPRAZOLE 20 MG CPDR 1 tablet by mouth daily OMEPRAZOLE 77939480125 Active Capo Poe MD Active WELLBUTRIN SR 150 MG ORAL AZ45A-VYN 1 po BID BUPROPION HCL 80150155127 No Longer Active Capo Poe MD Active MIRALAX PACK 1 po qd PRN Constipation POLYETHYLENE GLYCOL 3350 57027797392 Active Capo Poe MD Active DULERA 100-5 MCG/ACT AERO 2 puffs BID MOMETASONE FURO- FORMOTEROL FUM 00659600827 Active Capo Poe MD Active ZOLOFT 100 MG TABS 1 po daily SERTRALINE HCL 93070694614 No Longer Active Zoran Arzola MD Active FERROUS SULFATE 325 (65 FE) MG TABS 1 tablet by mouth daily FERROUS SULFATE 28654465225 No Longer Active Capo Poe MD Active HYDROCODONE-ACETAMINOPHEN 7.5-300 MG TABS take one every six hours HYDROCODONE-ACETAMINOPHEN 02293879236 No Longer Active Capo Poe MD Active TRIAMCINOLONE ACETONIDE 0.1 % OINT Apply to affected areas TID for up to 2 weeks TRIAMCINOLONE ACETONIDE 84130273603 No Longer Active Joe Vargas RN Active FERROUS SULFATE 325 (65 FE) MG TABS Take one by mouth daily FERROUS SULFATE 50208122359 No Longer Active Capo Poe MD Active TRIAMCINOLONE ACETONIDE 0.1 % OINT Apply to affected areas TID for up to 2 weeks TRIAMCINOLONE ACETONIDE 63704411445 No Longer Active Capo Poe MD Active ADULT ASPIRIN LOW STRENGTH 81 MG TBDP qd ASPIRIN 69647194391 Active Zoran Arzola MD Active ALEVE 220 MG TAB prn NAPROXEN SODIUM 27603774325 Active Capo Poe MD Active MACROBID 100 MG CAP 1 cap by mouth twice daily NITROFURANTOIN MONOHYD MACRO 26084265003 No Longer Active Dona Becker Active AZITHROMYCIN 250 MG TABS 2 po qd x 1 day, then 1 po qd x 4 days AZITHROMYCIN 10190886531 No Longer Active Capo Poe MD Active FISH OIL 500 MG CAPS by mouth twice a day OMEGA-3 FATTY ACIDS 52166272497 Active aCpo Poe MD Active FLAXSEED OIL 1000 MG CAPS Take two by mouth daily FLAXSEED (LINSEED) 37804137809 Active Zoran Arzola MD Active RED YEAST RICE 600 MG CAPS Take two by mouth daily RED YEAST RICE EXTRACT 19757944575 Active Zoran Arzola MD Active MULTIVITAMINS CAPS Take one by mouth daily MULTIPLE VITAMIN 11910904726 Elza Arzola MD Active ICAPS MV TABS 2 po daily MULTIPLE VITAMINS-MINERALS 77224823335 Active Jam Arnold DO Active MACROBID 100 MG CAP 1 cap by mouth twice daily MACROBID 100 MG CAP 8014762 NITROFURANTOIN MONOHYD MACRO Inactive FERROUS SULFATE 325 (65 FE) MG TABS Take one by mouth daily FERROUS SULFATE 325 (65 FE) MG TABS 524640 FERROUS SULFATE Inactive HYDROCODONE-ACETAMINOPHEN 7.5-300 MG TABS take one every six hours HYDROCODONE-ACETAMINOPHEN 7.5-300 MG TABS 785039 HYDROCODONE- ACETAMINOPHEN Inactive FERROUS SULFATE 325 (65 FE) MG TABS 1 tablet by mouth daily FERROUS SULFATE 325 (65 FE) MG TABS 000509 FERROUS SULFATE Inactive ZOLOFT 100 MG TABS 1 po daily ZOLOFT 100 MG TABS 851649 SERTRALINE HCL Inactive SERTRALINE HCL 100 MG ORAL TABS take 1 tab daily SERTRALINE HCL 100 MG ORAL TABS 554225 SERTRALINE HCL Inactive TRAMADOL HCL 50 MG TABS 1-2 tablets every 6 hours as needed for pain TRAMADOL HCL 50 MG TABS 832675 TRAMADOL HCL Inactive NICOTINE 14 MG/24HR TRANS PT24 Apply/Change q 24hr NICOTINE 14 MG/24HR TRANS PT24 148830 NICOTINE Inactive FLOMAX 0.4 MG CAPS Take one by mouth daily FLOMAX 0.4 MG CAPS 640209 TAMSULOSIN HCL Inactive LORTAB 7.5-325 MG ORAL TABS 1 po q 6 hr prn pain LORTAB 7.5- 325 MG ORAL TABS 549398 HYDROCODONE-ACETAMINOPHEN Inactive VIIBRYD STARTER PACK 10 & 20 MG ORAL KIT 1 po qd as directed 2015 VIIBRYD STARTER PACK 10 & 20 MG ORAL KIT VILAZODONE HCL Inactive AZITHROMYCIN 250 MG TABS 2 po qd x 1 day, then 1 po qd x 4 days AZITHROMYCIN 250 MG TABS 0636340 AZITHROMYCIN Inactive TRIAMCINOLONE ACETONIDE 0.1 % OINT Apply to affected areas TID for up to 2 weeks TRIAMCINOLONE ACETONIDE 0.1 % OINT 9851741 TRIAMCINOLONE ACETONIDE Inactive TRIAMCINOLONE ACETONIDE 0.1 % OINT Apply to affected areas TID for up to 2 weeks TRIAMCINOLONE ACETONIDE 0.1 % OINT 6542915 TRIAMCINOLONE ACETONIDE Inactive Advance Directives Directive Description [...] - Chemistry blood glucose 124 mg/dL 65-110 calcium, serum 8.9 mg/dL 8.5-10.1 urea nitrogen, blood 18 mg/dL 7-18 creatinine, serum 1.40 mg/dL 0.60-1.30 carbon dioxide, venous blood 34.8 mmol/L 21.0-32.0 chloride, serum 101 mmol/L 98-107 potassium, serum 4.7 mmol/L 3.5-5.2 sodium, serum 139 mmol/L 136-145 Lab Report: BUN, Creatinine - Chemistry urea nitrogen, blood 15 mg/dL 7-18 creatinine, serum 1.29 mg/dL 0.55-1.30 Lab Report: Comp. Metabolic Panel, Lipid Panel, HGBA1C, CBC, MICROALB/CR ... - Chemistry albumin/creatinine ratio, urine 30 - 300 mg/g mg/g{creat} 0-29 sodium, serum 138 mmol/L 767-127 9168/03/18 carbon dioxide, venous blood 25.5 mmol/L 21.0-32.0 potassium, serum 4.6 mmol/L 3.5-5.2 chloride, serum 101 mmol/L 98-107 blood glucose 129 mg/dL 65-110 urea nitrogen, blood 20 mg/dL 7-18 creatinine, serum 1.87 mg/dL 0.55-1.30 alanine aminotransferase (SGPT), serum 26 U/L 12-78 aspartate aminotransferase (SGOT), serum 20 U/L 15-37 calcium, serum 8.8 mg/dL 8.5-10.1 bilirubin, serum, total 0.40 mg/dL 0.00-1.00 cholesterol, serum 251 mg/dL 265-529 4120/03/18 triglyceride, serum, fasting 135 mg/dL 30-200 HDL [...] 0.00-4.00 prostate specific antigen 0.62 ng/mL 0.00-4.00 Encounters Code Encounter Date Provider Facility CPT-36445 Level 4 Est. Patient 10:22:57 CDT Caop Poe MD [facility] CPT-62919 Level 4 Est. Patient 13:44:30 CDT Capo Poe MD [facility] CPT-76749 Level 3 Est. Patient 14:59:32 [employer] Capo Poe MD [facility] CPT-12514 Level 4 Est. 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 Patient 11:00:53 CDT Capo Poe MD [facility] CPT-22759 Level 3 Est. Patient 09:39:35 CDT Capo Poe MD [facility] CPT-28386 Level 3 Est. Patient 09:27:01 CDT Capo Poe MD [facility] CPT-79625 Level 3 Est. Patient 18:37:08 CDT Zoran Arzola MD [facility] CPT-47221 Level 3 Est. Patient 15:00:28 CDT Capo Poe MD [facility] CPT-35946 Level 3 Est. Patient 08:20:19 CDT Zoran Arzola MD [facility] CPT-34106 Level 3 Est. Patient 09:22:21 CDT Capo Poe MD [facility] CPT-82971 Level 4 Est. Patient 10:21:30 M[employer] OPERATOR Capo Poe MD [facility] CPT-90233 Level 3 Est. Patient 17:08:51 M[employer] OPERATOR Zoran Arzola MD [facility] CPT-19867 Level 4 Est. Patient 09:44:42 CDT Capo Poe MD [facility] CPT-05653 Level 4 Est. Patient 10:39:29 CDT Capo Poe MD [facility] CPT-67611 Level 3 Est. Patient 17:45:23 CDT Zoran Arzola MD [facility] CPT-96503 Level 4 Est. Patient 08:50:44 CDT Capo Poe MD [facility] CPT-69930 Level 3 Est. Patient 10:39:51 MILL CRANE OPERATOR Capo Poe MD [facility] CPT-65005 Level 4 Est. Patient 09:44:24 MILL CRANE OPERATOR Capo Poe MD [facility] CPT-12691 Level 3 Est. Patient 14:48:42 MILL CRANE OPERATOR Zoran Arzola MD [facility] CPT-16690 Level 4 Est. Patient 10:24:02 CDT Capo Poe MD [facility] CPT-63210 Level 3 Est. Patient 15:42:00 CDT Maya DUKES [facility] CPT-18967 Level 4 Est. Patient 13:34:15 CDT Capo Poe MD [facility] CPT-99451 Level 3 Est. Patient 15:32:10 M[employer] OPERATOR Zoran Arzola MD [facility] CPT-73395 Level 3 New Patient 17:17:19 MILL [employer] OPERATOR Zoran Arzola MD [facility] CPT-55294 Level 4 Est. Patient 10:25:01 M[employer] OPERATOR Capo Poe MD [facility] CPT-57755 Level 3 Est. Patient 10:10:42 CDT Zoran Arzola MD [facility] CPT-46723 Level 3 Est. Patient 22:30:02 CDT Zoran Arzola MD [facility] CPT-91354 Level 4 Est. Patient 09:54:20 CDT Capo Poe MD [facility] CPT-44310 Level 3 Est. Patient 10:48:30 CDT Capo Poe MD [facility] CPT-65932 Level 3 Est. Patient 11:24:45 CDT Capo Poe MD [facility] CPT-13403 Level 3 Est. Patient 15:23:48 MILL CRANE OPERATOR Capo Poe MD [facility] CPT-10536 Level 3 Est. Patient 15:10:03 M[employer] CR[employer] OPERATOR Capo Poe MD [facility] CPT-24880 Level 3 Est. Patient 16:18:40 CDT Zoran Arzola MD [facility] Procedures Code Procedure Name Date Entry Date Standard Description CPT-42691 Venipuncture Draw Fee 09:32:34 CDT CPT-G0438 Initial Annual Wellness Exam 10:24:35 CDT CPT-41555 Venipuncture Draw Fee 09:46:29 CDT CPT-12284 Venipuncture Draw Fee 14:30:06 CDT CPT-28150 Venipuncture Draw Fee 10:58:22 CDT CPT-81703 Abd single AP View 08:32:00 CDT CPT-63314 Postop F/U Visit 21:13:08 CDT CPT-62138 Abd single AP View 15:50:24 CDT CPT-11876 Cystoscopy W/rem FB 15:21:28 CDT CPT-71271 Abd single AP View 14:06:45 CDT CPT-93885 Postop F/U Visit 09:48:32 CDT CPT-05287 Abd single AP View 13:58:26 CDT CPT-63621 Hip comp min 2V 10:27:18 [employer] O[employer] CPT-80814 Urine Dip (Floor Use Only) 13:41:01 [employer] OPER[employer] CPT-56073 Postop F/U Visit 11:17:48 CDT CPT-LR Lesion Removal 11:50:22 CDT CPT-OV Office Visit 11:50:22 CDT CPT-36883 Pneumovax 23 10:55:48 CDT CPT-39304 Administration single or combination vaccine inc oral 10 :55:48 CDT CPT-Cryo Cryotherapy 11:18:11 CDT CPT-OV Office Visit 11:18:11 CDT CPT-70991 LS spine AP and Lat 09:05:22 CDT CPT-86306 Bladder Scan 15:42:00 CDT CPT-24202 Cystoscopy 15:42:00 CDT CPT-OV Office Visit 16:37:19 M[employer] OPERATOR CPT-99124 Bladder Scan 15:32:10 MILL [employer] OPERATOR CPT-64836 Cystoscopy 15:32:10 MILL [employer] OPERATOR CPT-12035 Abd single AP View 14:05:59 [employer] OPERATOR CPT-57980 Pill cam small bowel 09:48:39 [employer] OPER[employer] CPT-38228 Urine Dip (Floor Use Only) 17:17:19 [employer] OPER[employer] CPT-23452 Bladder Scan 17:17:19 MILL [employer]ANE OPERATOR CPT-OV Office Visit 11:50:26 [employer] OPER[employer] CPT-98943 Bladder Scan 10:10:42 CDT CPT-09398 Venipuncture Draw Fee 09:14:04 CDT CPT-33404 Chest 2V Frontal and Lat 10:10:49 CDT CPT-86792 LS spine comp w obliq 11:50:11 CDT CPT-00184 Venipuncture Draw Fee 08:52:57 [employer] OPER[employer] CPT-37220 Cystoscopy W/rem FB 18:37:28 CDT CPT-07968 Abd single AP View 16:18:40 CDT CPT-37243 Abd compl w upright 17:30:59 CDT
--- OUTSIDE RECORDS SUMMARY | 2016-11-22 16:14 | XMS REPORT | Clinical Summary ---
Author Author Admin, QIE Organization [employer] Address Unknown Phone Unavailable Allergies, Adverse Reactions, [...] deficiencies and disaccharide malabsorption DYSPNEA 786.09 Correction Caop Poe MD Other dyspnea and respiratory abnormality [...] neoplasms of prostate Pruritic rash 698.8 Active Caop Poe MD Other specified pruritic conditions NAUSEA [...] ICD-724.3 Clyde Poe MD Renal Calculus ICD-592.9 Inactive Capo Poe MD Urethral calculus ICD-594.2 Inactive Capo Poe MD Chest pain ICD-786.50 Inactive Capo Poe MD Prostate cancer screening ICD-V76.44 Inactive Capo Poe MD Medication List Medication Instructions Start Date Stop Date Generic Name NDC Status Provider Patient Instruction CITALOPRAM HYDROBROMIDE 20 MG TABS 1 tablet by mouth daily CITALOPRAM HYDROBROMIDE 94143475177 Active Felisa Daphney RMMarva Active CLARITIN 5 MG ORAL CHEW 1 tab po q day LORATADINE 85967474996 Active Felisa Daphney RMA Active VIIBRYD STARTER PACK 10 & 20 MG ORAL KIT 1 po qd as directed 2015 VILAZODONE HCL 88425033181 No Longer Active Felisa Daphney RMA Active HYDROXYZINE HCL 25 MG TAB 1 po qHS PRN Insomnia HYDROXYZINE HCL 56016064850 Active Capo Poe MD Active LISINOPRIL 10 MG TABS 1 tablet by mouth daily LISINOPRIL 68830282470 Active Capo Poe MD Active LORTAB 7.5-325 MG ORAL TABS 1 po q 6 hr prn pain HYDROCODONE- ACETAMINOPHEN 66383869702 No Longer Active Capo Poe MD Active FLOMAX 0.4 MG CAPS Take one by mouth daily TAMSULOSIN HCL 10123844360 No Longer Active Capo Poe MD Active TRIAMCINOLONE ACETONIDE 0.1 % CREA Apply to affected areas TID for up to 2 weeks TRIAMCINOLONE ACETONIDE 48157297479 Active Capo Poe MD Active NICOTINE 14 MG/24HR TRANS PT24 Apply/Change q 24hr NICOTINE 80173779973 No Longer Active Capo Poe MD Active TRAMADOL HCL 50 MG TABS 1-2 tablets every 6 hours as needed for pain TRAMADOL HCL 11316356130 No Longer Active Capo Poe MD Active SERTRALINE HCL 100 MG ORAL TABS take 1 tab daily SERTRALINE HCL 69349402504 No Longer Active Capo Poe MD Active LISINOPRIL-HYDROCHLOROTHIAZIDE 10-12.5 MG TABS 0.5 tab by mouth daily LISINOPRIL-HYDROCHLOROTHIAZIDE 92767154820 No Longer Active Capo Poe MD Active OMEPRAZOLE 20 MG CPDR 1 tablet by mouth daily OMEPRAZOLE 28555351131 Active Capo Poe MD Active WELLBUTRIN SR 150 MG ORAL NK12P-QWR 1 po BID BUPROPION HCL 83627655188 No Longer Active Capo Poe MD Active MIRALAX PACK 1 po qd PRN Constipation POLYETHYLENE GLYCOL 3350 05249756580 Active Capo Poe MD Active DULERA 100-5 MCG/ACT AERO 2 puffs BID MOMETASONE FURO- FORMOTEROL FUM 15693698936 Active Capo Poe MD Active ZOLOFT 100 MG TABS 1 po daily SERTRALINE HCL 08190206742 No Longer Active Zoran Arzola MD Active FERROUS SULFATE 325 (65 FE) MG TABS 1 tablet by mouth daily FERROUS SULFATE 75418062286 No Longer Active Capo Poe MD Active HYDROCODONE-ACETAMINOPHEN 7.5-300 MG TABS take one every six hours HYDROCODONE-ACETAMINOPHEN 95252686340 No Longer Active Capo Poe MD Active TRIAMCINOLONE ACETONIDE 0.1 % OINT Apply to affected areas TID for up to 2 weeks TRIAMCINOLONE ACETONIDE 00099437877 No Longer Active Joe Vargas RN Active FERROUS SULFATE 325 (65 FE) MG TABS Take one by mouth daily FERROUS SULFATE 15202855364 No Longer Active Capo Poe MD Active TRIAMCINOLONE ACETONIDE 0.1 % OINT Apply to affected areas TID for up to 2 weeks TRIAMCINOLONE ACETONIDE 62003832533 No Longer Active Capo Poe MD Active ADULT ASPIRIN LOW STRENGTH 81 MG TBDP qd ASPIRIN 13285091040 Active Zoran Arzola MD Active ALEVE 220 MG TAB prn NAPROXEN SODIUM 20283217307 Active Capo Poe MD Active MACROBID 100 MG CAP 1 cap by mouth twice daily NITROFURANTOIN MONOHYD MACRO 68672892176 No Longer Active Dona Becker Active AZITHROMYCIN 250 MG TABS 2 po qd x 1 day, then 1 po qd x 4 days AZITHROMYCIN 42886099716 No Longer Active Capo Poe MD Active FISH OIL 500 MG CAPS by mouth twice a day OMEGA-3 FATTY ACIDS 00426083974 Active Capo Poe MD Active FLAXSEED OIL 1000 MG CAPS Take two by mouth daily FLAXSEED (LINSEED) 91710563350 Active Zoran Arzola MD Active RED YEAST RICE 600 MG CAPS Take two by mouth daily RED YEAST RICE EXTRACT 93004254320 Active Zoran Arzola MD Active MULTIVITAMINS CAPS Take one by mouth daily MULTIPLE VITAMIN 58395133827 Active Zoran Arzola MD Active ICAPS MV TABS 2 po daily MULTIPLE VITAMINS-MINERALS 34365952906 Active Jam Arnold DO Active MACROBID 100 MG CAP 1 cap by mouth twice daily MACROBID 100 MG CAP 2719567 NITROFURANTOIN MONOHYD MACRO Inactive FERROUS SULFATE 325 (65 FE) MG TABS Take one by mouth daily FERROUS SULFATE 325 (65 FE) MG TABS 941688 FERROUS SULFATE Inactive HYDROCODONE-ACETAMINOPHEN 7.5-300 MG TABS take one every six hours HYDROCODONE-ACETAMINOPHEN 7.5-300 MG TABS 065669 HYDROCODONE- ACETAMINOPHEN Inactive FERROUS SULFATE 325 (65 FE) MG TABS 1 tablet by mouth daily FERROUS SULFATE 325 (65 FE) MG TABS 236710 FERROUS SULFATE Inactive ZOLOFT 100 MG TABS 1 po daily ZOLOFT 100 MG TABS 456954 SERTRALINE HCL Inactive SERTRALINE HCL 100 MG ORAL TABS take 1 tab daily SERTRALINE HCL 100 MG ORAL TABS 678221 SERTRALINE HCL Inactive TRAMADOL HCL 50 MG TABS 1-2 tablets every 6 hours as needed for pain TRAMADOL HCL 50 MG TABS 629667 TRAMADOL HCL Inactive NICOTINE 14 MG/24HR TRANS PT24 Apply/Change q 24hr NICOTINE 14 MG/24HR TRANS PT24 216654 NICOTINE Inactive FLOMAX 0.4 MG CAPS Take one by mouth daily FLOMAX 0.4 MG CAPS 313684 TAMSULOSIN HCL Inactive LORTAB 7.5-325 MG ORAL TABS 1 po q 6 hr prn pain LORTAB 7.5- 325 MG ORAL TABS 293365 HYDROCODONE-ACETAMINOPHEN Inactive VIIBRYD STARTER PACK 10 & 20 MG ORAL KIT 1 po qd as directed 2015 VIIBRYD STARTER PACK 10 & 20 MG ORAL KIT VILAZODONE HCL Inactive AZITHROMYCIN 250 MG TABS 2 po qd x 1 day, then 1 po qd x 4 days AZITHROMYCIN 250 MG TABS 2467183 AZITHROMYCIN Inactive TRIAMCINOLONE ACETONIDE 0.1 % OINT Apply to affected areas TID for up to 2 weeks TRIAMCINOLONE ACETONIDE 0.1 % OINT 2597130 TRIAMCINOLONE ACETONIDE Inactive TRIAMCINOLONE ACETONIDE 0.1 % OINT Apply to affected areas TID for up to 2 weeks TRIAMCINOLONE ACETONIDE 0.1 % OINT 2475014 TRIAMCINOLONE ACETONIDE Inactive Advance Directives Directive Description Start Date PERMISSION TO SHARE DISCUSSED WITH PATIENT -- NO DECISION MADE Immunizations Vaccine Administration Date Value Standard Description pneumococcal immunization administered Pneumovax 23 [CVX33] pneumococcal polysaccharide vaccine, 23 valent Vital Signs Date Name Value Unit Range Description blood pressure, diastolic - 8462-4 76 mm[Hg] [...] Panel - Chemistry sodium, serum 139 mmol/L 112-123 3731/07/30 potassium, serum 4.7 mmol/L 3.5-5.2 chloride, serum [...] mg/g mg/g{creat} 0-29 sodium, serum 138 mmol/L 081-810 0769/03/18 carbon dioxide, venous blood 25.5 mmol/L 21.0-32.0 potassium, serum 4.6 mmol/L 3.5-5.2 chloride, serum 101 mmol/L 98-107 blood glucose 129 mg/dL 65-110 urea nitrogen, blood 20 mg/dL 7-18 creatinine, serum 1.87 mg/dL 0.55-1.30 alanine aminotransferase (SGPT), serum 26 U/L 12-78 aspartate aminotransferase (SGOT), serum 20 U/L 15-37 calcium, serum 8.8 mg/dL 8.5-10.1 bilirubin, serum, total 0.40 mg/dL 0.00-1.00 cholesterol, serum 251 mg/dL 579-008 9870/03/18 triglyceride, serum, fasting 135 mg/dL 30-200 HDL [...] 0.00-4.00 Encounters Code Encounter Date Provider Facility CPT-34577 Level 4 Est. Patient 13:44:30 CDT Capo Poe MD [facility] CPT-86631 Level 3 Est. Patient 14:59:32 COLLECTIONS CLERK Capo Poe MD [facility] CPT-86112 Level 4 Est. Patient 10:46:15 COLLECTIONS CLERK Capo Poe MD [facility] CPT-68243 Level 3 Est. Patient 11:00:53 CDT Capo Poe MD [facility] CPT-45795 Level 3 Est. Patient 09:39:35 CDT Capo Poe MD [facility] CPT-49538 Level 3 Est. Patient 09:27:01 CDT Capo Poe MD [facility] CPT-07288 Level 3 Est. Patient 18:37:08 CDT Zoran Arzola MD [facility] CPT-32427 Level 3 Est. Patient 15:00:28 CDT Capo Poe MD [facility] CPT-20235 Level 3 Est. Patient 08:20:19 CDT Zoran Arzola MD [facility] CPT-58187 Level 3 Est. Patient 09:22:21 CDT Capo Poe MD [facility] CPT-32566 Level 4 Est. Patient 10:21:30 COLLECTIONS CLERK Capo Poe MD [facility] CPT-32890 Level 3 Est. Patient 17:08:51 COLLECTIONS CLERK Zoran Arzola MD [facility] CPT-84517 Level 4 Est. Patient 09:44:42 CDT Capo Poe MD [facility] CPT-65089 Level 4 Est. Patient 10:39:29 CDT Capo Poe MD [facility] CPT-73109 Level 3 Est. Patient 17:45:23 CDT Zoran Arzola MD [facility] CPT-12590 Level 4 Est. Patient 08:50:44 CDT Capo Poe MD [facility] CPT-78120 Level 3 Est. Patient 10:39:51 COLLECTIONS CLERK Capo Poe MD [facility] CPT-75192 Level 4 Est. Patient 09:44:24 COLLECTIONS CLERK Capo Poe MD [facility] CPT-17942 Level 3 Est. Patient 14:48:42 COLLECTIONS CLERK Zoran Arzola MD [facility] CPT-34335 Level 4 Est. Patient 10:24:02 CDT Capo Poe MD [facility] CPT-58947 Level 3 Est. Patient 15:42:00 CDT Maya DUKES [facility] CPT-10638 Level 4 Est. Patient 13:34:15 CDT Capo Poe MD [facility] CPT-92467 Level 3 Est. Patient 15:32:10 COLLECTIONS CLERK Zoran Arzola MD [facility] CPT-02214 Level 3 New Patient 17:17:19 COLLECTIONS CLERK Zoran Arzola MD [facility] CPT-48327 Level 4 Est. Patient 10:25:01 COLLECTIONS CLERK Capo Poe MD [facility] CPT-13033 Level 3 Est. Patient 10:10:42 CDT Zoran Arzola MD [facility] CPT-86559 Level 3 Est. Patient 22:30:02 CDT Zoran Arzola MD [facility] CPT-19288 Level 4 Est. Patient 09:54:20 CDT Capo Poe MD [facility] CPT-06820 Level 3 Est. Patient 10:48:30 CDT Capo Poe MD [facility] CPT-37476 Level 3 Est. Patient 11:24:45 CDT Capo Poe MD [facility] CPT-81707 Level 3 Est. Patient 15:23:48 COLLECTIONS CLERK Capo Poe MD [facility] CPT-33051 Level 3 Est. Patient 15:10:03 COLLECTIONS CLERK Capo Poe MD [facility] CPT-07481 Level 3 Est. Patient 16:18:40 CDT Zoran Arzola MD [facility] Procedures Code Procedure Name Date Entry Date Standard Description CPT-G0438 Initial Annual Wellness Exam 10:24:35 CDT CPT-20245 Venipuncture Draw Fee 09:46:29 CDT CPT-74178 Venipuncture Draw Fee 14:30:06 CDT CPT-91987 Venipuncture Draw Fee 10:58:22 CDT CPT-22000 Abd single AP View 08:32:00 CDT CPT-91100 Postop F/U Visit 21:13:08 CDT CPT-58140 Abd single AP View 15:50:24 CDT CPT-74346 Cystoscopy W/rem FB 15:21:28 CDT CPT-10872 Abd single AP View 14:06:45 CDT CPT-73790 Postop F/U Visit 09:48:32 CDT CPT-06735 Abd single AP View 13:58:26 CDT CPT-23662 Hip comp min 2V 10:27:18 COLLECTIONS CLERK CPT-92303 Urine Dip (Floor Use Only) 13:41:01 COLLECTIONS CLERK CPT-61491 Postop F/U Visit 11:17:48 CDT CPT-LR Lesion Removal 11:50:22 CDT CPT-OV Office Visit 11:50:22 CDT CPT-80419 Pneumovax 23 10:55:48 CDT CPT-20691 Administration single or combination vaccine inc oral 10 :55:48 CDT CPT-Cryo Cryotherapy 11:18:11 CDT CPT-OV Office Visit 11:18:11 CDT CPT-57982 LS spine AP and Lat 09:05:22 CDT CPT-76845 Bladder Scan 15:42:00 CDT CPT-99579 Cystoscopy 15:42:00 CDT CPT-OV Office Visit 16:37:19 COLLECTIONS CLERK CPT-07977 Bladder Scan 15:32:10 COLLECTIONS CLERK CPT-36047 Cystoscopy 15:32:10 COLLECTIONS CLERK CPT-83274 Abd single AP View 14:05:59 COLLECTIONS CLERK CPT-38906 Pill cam small bowel 09:48:39 COLLECTIONS CLERK CPT-62553 Urine Dip (Floor Use Only) 17:17:19 COLLECTIONS CLERK CPT-72337 Bladder Scan 17:17:19 COLLECTIONS CLERK CPT-OV Office Visit 11:50:26 COLLECTIONS CLERK CPT-11724 Bladder Scan 10:10:42 CDT CPT-39809 Venipuncture Draw Fee 09:14:04 CDT CPT-88058 Chest 2V Frontal and Lat 10:10:49 CDT CPT-78779 LS spine comp w obliq 11:50:11 CDT CPT-98492 Venipuncture Draw Fee 08:52:57 COLLECTIONS CLERK CPT-33898 Cystoscopy W/rem FB 18:37:28 CDT CPT-81331 Abd single AP View 16:18:40 CDT CPT-54364 Abd compl w upright 17:30:59 CDT
--- OUTSIDE RECORDS SUMMARY | 2016-11-22 16:14 | XMS REPORT ---
Author Author [facility] Organization [facility] Address [address] [place], [place] [address] Phone [phone] Care Team Providers Care Maltster Name Role Phone KRISTINA MENJIVAR MD PP [phone] KRISTINA MENJIVAR MD PP [phone] Summary purpose TRANSITION OF CARE AUTO GENERATION Chief Complaint and Reason for Visit Admit Diagnosis 1 RIGHT URETEROSCOPY STONE EXTRACTION Admit Diagnosis 2 W/H LASER Problem list No authorized problems tracked for continuity of care are available for this visit. Encounters The following conditions tracked for encounter diagnoses were recorded for this visit: Finding or Diagnosis Status Certainty Chronicity Onset *KIDNEY STONE Active Medications Home Medications Medication Directions Started Status [...] tablet 1 tablet Oral 1 Daily for circulation Current Patient recall Allergies, adverse reactions, alerts Allergen Category Ingredient Status Reaction Severity Onset Glfpqbe-Asv-Zlo Reductase Inhibitors Drug Allergy Lqybpde-Aij-Uuz Reductase Inhibitors Confirmed or Verified BACK PAIN morphine Drug Allergy morphine Confirmed or Verified Swelling Mild Adult Nitrofurantoin Drug Allergy Nitrofurantoin Confirmed or Verified Immunizations No immunizations recorded for this patient visit Relevant diagnostic tests and/or laboratory data RESULTS Reference Lab (Sendout) [id number]:00 Result Normal Range Units Nidus Not observed Component 1 See Below Calcium Oxalate Dihydrate (Weddellite) 80% Carbonate Apatite (Dahllite) 10% Uric Acid 10% Weight 0.1860 g The image will follow, unless test is cancelled or no picture is available to report. TEST PERFORMED AT: [facility] [address] [place] [address] MACK PADILLA MD,FCAP Radiology Results [id number] RETROGRADE PYELOGRAM PACs Image DATE OF EXAM: May 22 2014 RAD 1274-RETROGRADE PYELOGRAM : RADIOLOGY REPORT DATE OF SERVICE: 05/22/14 HISTORY: Locate ureteric calculi RIGHT RETROGRADE PYELOGRAM SUPERVISION AND [id number] HOURS There is a large right renal pelvic calculus. The right ureter is instrumented and a guidewire placed. Subsequent images show apparent fragmentation and/or removal of the calculus. A right ureteric stent is placed. No contrast was injected. IMPRESSION: Removal of large right renal pelvic calculus. Probable residual stone fragments in the right renal pelvis and calyces. Placement of right ureteric stent. MD DIANE Mueller/ut05/22/2014 14:42:00 / 05/22/2014 14:44:52 cc:Dr. Salomón Arzola This document has been electronically Signed by: On: DATE OF EXAM: May 22 2014 RAD 1274-RETROGRADE PYELOGRAM : RADIOLOGY REPORT DATE OF SERVICE: 05/22/14 HISTORY: Locate ureteric calculi RIGHT RETROGRADE PYELOGRAM SUPERVISION AND [id number] HOURS There is a large right renal pelvic calculus. The right ureter is instrumented and a guidewire placed. Subsequent images show apparent fragmentation and/or removal of the calculus. A right ureteric stent is placed. No contrast was injected. IMPRESSION: Removal of large right renal pelvic calculus. Probable residual stone fragments in the right renal pelvis and calyces. Placement of right ureteric stent. MD DIANE Mueller/[facility] 14:42:00 / 05/22/2014 14:44:52 cc:Dr. Salomón Arzola This document has been electronically Signed by: ANGELIA SHUKLA On: May 22 20144:47P RIGHT URETEROSCOPY STONE EXTRA W/H LASER Result Amended on 2014-05-22 at 16:47:21. Previous status was [place]. RIGHT URETEROSCOPY STONE EXTRA W/H LASER [id number] ABDOMEN 1 VIEW PACs Image DATE OF EXAM: May 22 2014 RAD 0011-ABDOMEN 1 VIEW : RADIOLOGY REPORT DATE OF SERVICE: 05/22/14 HISTORY: Right renal calculus SUPINE ABDOMEN 1000 HOURS Right sided stent is in place. There is a large right renal pelvic calculus measuring 2.7 cm in maximal size. No definite additional renal calculi are seen. The bowel gas pattern is normal. IMPRESSION: Large right renal pelvic calculus. MD DIANE Mueller/ut05/22/2014 10:54:00 / 05/22/2014 10:57:03 cc:Dr. Salomón Arzola This document has been electronically Signed by: On: DATE OF EXAM: May 22 2014 RAD 0011-ABDOMEN 1 VIEW : RADIOLOGY REPORT DATE OF SERVICE: 05/22/14 HISTORY: Right renal calculus SUPINE ABDOMEN 1000 HOURS Right sided stent is in place. There is a large right renal pelvic calculus measuring 2.7 cm in maximal size. No definite additional renal calculi are seen. The bowel gas pattern is normal. IMPRESSION: Large right renal pelvic calculus. MD DIANE Mueller/ut05/22/2014 10:54:00 / 05/22/2014 10:57:03 cc:Dr. Salomón Arzola This document has been electronically Signed by: ANGELIA SHUKLA On: May 22 2014 12:37P RIGHT URETEROSCOPY STONE EXTRA W/H LASER Result Amended on 2014-05-22 at 12:38:00. Previous status was [place]. RIGHT URETEROSCOPY STONE EXTRA W/H LASER History of procedures No procedures recorded for this patient visit. Functional status Functional Status Finding Observation Time Hearing Prob Loc none :42 Vision Problems yes :44 Vision Correct Dev glasses :44 Ambulation Asst Dev none :42 Range of Motion full :10 Muscle Strength RUE 5 ROM full resist [id number] Muscle Strength RLE 5 ROM full resist :10 Muscle Strength LUE 5 ROM full resist :10 Muscle Strength LLE 5 ROM full resist :10 Transfers assist x 1 :10 Ambulation in room :10 Balance steady :10 Bathing Assistance none :42 Eating Assistance none :42 Dressing Assistance none : Toileting Assistance none : Transfer Assistance none :42 Decline Slf Care/Mob no :42 Phys Cond Stable yes :42 Nutrition normal :10 Diet regular : Oral Cavity moist and intact : Teeth dentures :10 Dental Hygiene good :10 Abdomen Appearance flat :10 Abdomen soft :10 Bowel Sounds present :10 NG Tube no :10 Feeding Tube none :10 Barnes no :10 Cont Bladder Irr no :10 Ostomy no :10 Stool normal :10 Urination dysuria :10 Quality sym/unlabored :10 Cough absent :10 Secretions no :10 Breath Sounds RUL clear :10 Breath Sounds RML clear :10 Breath Sounds RLL clear :10 Breath Sounds DARIANA clear :10 Breath Sounds LLL clear :10 Airway natural :10 Chest Tube no :10 Oxygen no :10 C-PAP no :10 BI-PAP no :10 Temp >100.4 no :10 Temp <96.8 no :10 Chills with rigors no : HR > 90bpm no : Respirations > 20 no : Systolic <90 no : headache stiff neck no :10 Rapid Resp no :10 IV Site Location R wrist :00 IV Type peripheral : IV Site Information discontinued : IV Site Rishi 18 :10 IV Site Appearance WNL : IV Site Color clear : IV Site Patent yes : Dressing Type occlusive : Nursing Note Pt states he's doing "very well." :44 Cognitive Status Finding Observation Time Learning Ability comprehends well : Neurological no :25 Psychological no :25 Physical no :25 Hearing no :25 Tire Room 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 Hospital discharge instructions Discharge Date/Time 05/22/14 1425 Accompanied By Relationship spouse/signif other Dismissal Condition good Disposition on DC home Valuables yes Valuable Type billfold/purse Valuables Returned T patient DC Inst/Educ Give yes Exit Care Educ Given yes Med/Side Effects Rev yes PNE Vac 2014 Flu Vac 2014 Tetanus Vac Unknown Medical Equipment strainer Diet Explained yes Follow up appt appt made (specify) Follow Up Appt D/T 06/09/14 1400
--- OUTSIDE RECORDS SUMMARY | 2016-11-22 16:15 | XMS REPORT | Clinical Summary ---
Author Author Admin, MARGE Organization [facility] Address Unknown Phone Unavailable Allergies, Adverse Reactions, [...] hyperlipidemia CALCULUS OF KIDNEY 592.0 Resolved Capo oPe MD Calculus of kidney CALCULUS OF KIDNEY [...] MG/24HR TRANS PT24 Apply/Change q 24hr NICOTINE 63173440582 Active Capo Poe MD Active WELLBUTRIN SR 150 MG ORAL [id number] 1 po qd x 3 days, then 1 po BID BUPROPION HCL 46782804729 Active Capo Poe MD Active LORTAB 7.5-325 MG ORAL TABS 1 po q 6 hr prn pain HYDROCODONE- ACETAMINOPHEN 57502760460 Active Capo Poe MD Active FLOMAX 0.4 MG CAPS Take one by mouth daily TAMSULOSIN HCL 45646962261 Active Capo Poe MD Active MIRALAX PACK 1 po qd PRN Constipation POLYETHYLENE GLYCOL 3350 27329973898 Active Capo Poe MD Active DULERA 100-5 MCG/ACT AERO 2 puffs BID MOMETASONE FURO- FORMOTEROL FUM 39139170871 Active Capo Poe MD Active SERTRALINE HCL 100 MG ORAL TABS take 1 tab daily SERTRALINE HCL 36993829573 Active Capo Poe MD Active ZOLOFT 100 MG TABS 1 po daily SERTRALINE HCL 97972095259 No Longer Active Zoran Arzola MD Active FERROUS SULFATE 325 (65 FE) MG TABS 1 tablet by mouth daily FERROUS SULFATE 84250737999 No Longer Active Capo Poe MD Active TRAMADOL HCL 50 MG TABS 1-2 tablets every 6 hours as needed for pain TRAMADOL HCL 66985165544 Active Capo Poe MD Active HYDROCODONE-ACETAMINOPHEN 7.5-300 MG TABS take one every six hours HYDROCODONE-ACETAMINOPHEN 94887314567 No Longer Active Capo Poe MD Active TRIAMCINOLONE ACETONIDE 0.1 % OINT Apply to affected areas TID for up to 2 weeks TRIAMCINOLONE ACETONIDE 70290684691 No Longer Active Joe Vargas RN Active FERROUS SULFATE 325 (65 FE) MG TABS Take one by mouth daily FERROUS SULFATE 59650855894 No Longer Active Capo Poe MD Active TRIAMCINOLONE ACETONIDE 0.1 % OINT Apply to affected areas TID for up to 2 weeks TRIAMCINOLONE ACETONIDE 02842970597 No Longer Active Capo Poe MD Active ADULT ASPIRIN LOW STRENGTH 81 MG TBDP qd ASPIRIN 17172041870 Active Zoran Arzola MD Active ALEVE 220 MG TAB prn NAPROXEN SODIUM 04229288338 Active Capo Poe MD Active LISINOPRIL-HYDROCHLOROTHIAZIDE 10-12.5 MG TABS 1 tab by mouth daily LISINOPRIL-HYDROCHLOROTHIAZIDE 52726524343 Active Capo Poe MD Active MACROBID 100 MG CAP 1 cap by mouth twice daily NITROFURANTOIN MONOHYD MACRO 33431103962 No Longer Active Dona Becker Active AZITHROMYCIN 250 MG TABS 2 po qd x 1 day, then 1 po qd x 4 days AZITHROMYCIN 51573809478 No Longer Active Capo Poe MD Active FISH OIL 500 MG CAPS by mouth twice a day OMEGA-3 FATTY ACIDS 35254721583 Active Capo Poe MD Active FLAXSEED OIL 1000 MG CAPS Take two by mouth daily FLAXSEED (LINSEED) 32647690451 Elza Arzola MD Active RED YEAST RICE 600 MG CAPS Take two by mouth daily RED YEAST RICE EXTRACT 93369315523 Active Zoran Arzola MD Active MULTIVITAMINS CAPS Take one by mouth daily MULTIPLE VITAMIN 44320904091 Active Zoran Arzola MD Active ICAPS MV TABS 2 po daily MULTIPLE VITAMINS-MINERALS 18428517491 Active Jam Arnold DO Active MACROBID 100 MG CAP 1 cap by mouth twice daily MACROBID 100 MG CAP 5099329 NITROFURANTOIN MONOHYD MACRO Inactive FERROUS SULFATE 325 (65 FE) MG TABS Take one by mouth daily FERROUS SULFATE 325 (65 FE) MG TABS 737789 FERROUS SULFATE Inactive HYDROCODONE-ACETAMINOPHEN 7.5-300 MG TABS take one every six hours HYDROCODONE-ACETAMINOPHEN 7.5-300 MG TABS 351098 HYDROCODONE- ACETAMINOPHEN Inactive FERROUS SULFATE 325 (65 FE) MG TABS 1 tablet by mouth daily FERROUS SULFATE 325 (65 FE) MG TABS 580018 FERROUS SULFATE Inactive ZOLOFT 100 MG TABS 1 po daily ZOLOFT 100 MG TABS 863990 SERTRALINE HCL Inactive AZITHROMYCIN 250 MG TABS 2 po qd x 1 day, then 1 po qd x 4 days AZITHROMYCIN 250 MG TABS 2938762 AZITHROMYCIN Inactive TRIAMCINOLONE ACETONIDE 0.1 % OINT Apply to affected areas TID for up to 2 weeks TRIAMCINOLONE ACETONIDE 0.1 % OINT 3368292 TRIAMCINOLONE ACETONIDE Inactive TRIAMCINOLONE ACETONIDE 0.1 % OINT Apply to affected areas TID for up to 2 weeks TRIAMCINOLONE ACETONIDE 0.1 % OINT 5779726 TRIAMCINOLONE ACETONIDE Inactive Advance Directives Directive Description [...] Panel - Chemistry sodium, serum 139 mmol/L 231-157 7940/07/30 potassium, serum 4.7 mmol/L 3.5-5.2 chloride, serum [...] CBC - Chemistry cholesterol, serum 207 mg/dL 729-355 9262/02/11 triglyceride, serum, fasting 74 mg/dL 30-200 HDL cholesterol, serum 62 mg/dL 32-96 LDL cholesterol, serum 130 mg/dL 0-130 sodium, serum 144 mmol/L 325-720 5584/02/11 potassium, serum 5.0 mmol/L 3.5-5.2 chloride, serum [...] negative Encounters Code Encounter Date Provider Facility CPT-20885 Level 3 Est. Patient 09:27:01 CDT Capo Poe MD [facility] CPT-85549 Level 3 Est. Patient 18:37:08 CDT Zoran Arzola MD [facility] CPT-69061 Level 3 Est. Patient 15:00:28 CDT Capo Poe MD [facility] CPT-80770 Level 3 Est. Patient 08:20:19 CDT Zoran Arzola MD [facility] CPT-62792 Level 3 Est. Patient 09:22:21 CDT Capo Poe MD [facility] CPT-49142 Level 4 Est. Patient 10:21:30 BUFFER [employer]PER Capo Poe MD [facility] CPT-11076 Level 3 Est. Patient 17:08:51 [employer]PER Zoran Arzola MD [facility] CPT-35537 Level 4 Est. Patient 09:44:42 CDT Capo Poe MD [facility] CPT-69286 Level 4 Est. Patient 10:39:29 CDT Capo Poe MD [facility] CPT-80569 Level 3 Est. Patient 17:45:23 CDT Zoran Arzola MD [facility] CPT-64700 Level 4 Est. Patient 08:50:44 CDT Capo Poe MD [facility] CPT-41593 Level 3 Est. Patient 10:39:51 BUFFER [employer]PER Capo Poe MD [facility] CPT-92555 Level 4 Est. Patient 09:44:24 BUFFER [employer]PER Capo Poe MD [facility] CPT-11973 Level 3 Est. Patient 14:48:42 BU[employer]PER Zoran Arzola MD [facility] CPT-33571 Level 4 Est. Patient 10:24:02 CDT Capo Poe MD [facility] CPT-11557 Level 3 Est. Patient 15:42:00 CDT Maya DUKES [facility] CPT-02275 Level 4 Est. Patient 13:34:15 CDT Capo Poe MD [facility] CPT-87628 Level 3 Est. Patient 15:32:10 BU[employer]PER Zoran Arzola MD [facility] CPT-07288 Level 3 New Patient 17:17:19 BUFFER [employer]PER Zoran Arzola MD [facility] CPT-56690 Level 4 Est. Patient 10:25:01 BUFFER COPPER Capo Poe MD [facility] CPT-48346 Level 3 Est. Patient 10:10:42 CDT Zoran Arzola MD [facility] CPT-21310 Level 3 Est. Patient 22:30:02 CDT Zoran Arzola MD [facility] CPT-87133 Level 4 Est. Patient 09:54:20 CDT Capo Poe MD [facility] CPT-01333 Level 3 Est. Patient 10:48:30 CDT Capo Poe MD [facility] CPT-96252 Level 3 Est. Patient 11:24:45 CDT Capo Poe MD [facility] CPT-54935 Level 3 Est. Patient 15:23:48 BUFFER [employer]PER Capo Poe MD [facility] CPT-15920 Level 3 Est. Patient 15:10:03 BU[employer]PER Capo Poe MD [facility] CPT-81544 Level 3 Est. Patient 16:18:40 CDT Zoran Arzola MD [facility] Procedures Code Procedure Name Date Entry Date Standard Description CPT-98094 Venipuncture Draw Fee 10:58:22 CDT CPT-70838 Abd single AP View 08:32:00 CDT CPT-41525 Postop F/U Visit 21:13:08 CDT CPT-68142 Abd single AP View 15:50:24 CDT CPT-53718 Cystoscopy W/rem FB 15:21:28 CDT CPT-29025 Abd single AP View 14:06:45 CDT CPT-48786 Postop F/U Visit 09:48:32 CDT CPT-46616 Abd single AP View 13:58:26 CDT CPT-59594 Hip comp min 2V 10:27:18 BUFFER [employer]PER CPT-80800 Urine Dip (Floor Use Only) 13:41:01 BUFFER [employer]PER CPT-18318 Postop F/U Visit 11:17:48 CDT CPT-LR Lesion Removal 11:50:22 CDT CPT-OV Office Visit 11:50:22 CDT CPT-42931 Pneumovax 23 10:55:48 CDT CPT-40825 Administration single or combination vaccine inc oral 10 :55:48 CDT CPT-Cryo Cryotherapy 11:18:11 CDT CPT-OV Office Visit 11:18:11 CDT CPT-68262 LS spine AP and Lat 09:05:22 CDT CPT-21946 Bladder Scan 15:42:00 CDT CPT-26827 Cystoscopy 15:42:00 CDT CPT-OV Office Visit 16:37:19 BUFFER COPPER CPT-72488 Bladder Scan 15:32:10 BUFFER COPPER CPT-37902 Cystoscopy 15:32:10 BUFFER COPPER CPT-57499 Abd single AP View 14:05:59 BUFFER COPPER CPT-05374 Pill cam small bowel 09:48:39 BUFFER COPPER CPT-09792 Urine Dip (Floor Use Only) 17:17:19 BUFFER COPPER CPT-46379 Bladder Scan 17:17:19 BUFFER COPPER CPT-OV Office Visit 11:50:26 BUFFER [employer]PER CPT-64768 Bladder Scan 10:10:42 CDT CPT-61657 Venipuncture Draw Fee 09:14:04 CDT CPT-17693 Chest 2V Frontal and Lat 10:10:49 CDT CPT-99005 LS spine comp w obliq 11:50:11 CDT CPT-01711 Venipuncture Draw Fee 08:52:57 BUFFER [employer]PER CPT-89108 Cystoscopy W/rem FB 18:37:28 CDT CPT-22712 Abd single AP View 16:18:40 CDT CPT-76059 Abd compl w upright 17:30:59 CDT
--- OUTSIDE RECORDS SUMMARY | 2016-11-22 16:16 | XMS REPORT | Clinical Summary ---
Author Author Admin, MARGE Organization [facility] Address Unknown Phone Unavailable Allergies, Adverse Reactions, [...] MD Sciatica BRONCHITIS, ACUTE 466.0 Resolved Capo oPe MD Acute bronchitis URINARY FREQUENCY 788.41 Resolved [...] 2 puffs BID MOMETASONE FURO- FORMOTEROL FUM 07532288148 Active Capo Poe MD Active SERTRALINE HCL 100 MG ORAL TABS take 1 tab daily SERTRALINE HCL 95609126282 Active Capo Poe MD Active ZOLOFT 100 MG TABS 1 po daily SERTRALINE HCL 39806549503 No Longer Active Zoran Arzola MD Active FERROUS SULFATE 325 (65 FE) MG TABS 1 tablet by mouth daily FERROUS SULFATE 84792662069 No Longer Active Capo Poe MD Active TRAMADOL HCL 50 MG TABS 1-2 tablets every 6 hours as needed for pain TRAMADOL HCL 28715686577 Active Capo Poe MD Active HYDROCODONE-ACETAMINOPHEN 7.5-300 MG TABS take one every six hours HYDROCODONE-ACETAMINOPHEN 20785957418 No Longer Active Capo Poe MD Active TRIAMCINOLONE ACETONIDE 0.1 % OINT Apply to affected areas TID for up to 2 weeks TRIAMCINOLONE ACETONIDE 57831127579 No Longer Active Joe Vargas RN Active FERROUS SULFATE 325 (65 FE) MG TABS Take one by mouth daily FERROUS SULFATE 21539934779 No Longer Active Capo Poe MD Active TRIAMCINOLONE ACETONIDE 0.1 % OINT Apply to affected areas TID for up to 2 weeks TRIAMCINOLONE ACETONIDE 28470324977 No Longer Active Capo Poe MD Active ADULT ASPIRIN LOW STRENGTH 81 MG TBDP qd ASPIRIN 04030316378 Active Zoran Arzola MD Active ALEVE 220 MG TAB prn NAPROXEN SODIUM 88919512854 Active Capo Poe MD Active LISINOPRIL-HYDROCHLOROTHIAZIDE 10-12.5 MG TABS 1 tab by mouth daily LISINOPRIL-HYDROCHLOROTHIAZIDE 56751863279 Active Capo Poe MD Active MACROBID 100 MG CAP 1 cap by mouth twice daily NITROFURANTOIN MONOHYD MACRO 29063676081 No Longer Active Dona Becker Active AZITHROMYCIN 250 MG TABS 2 po qd x 1 day, then 1 po qd x 4 days AZITHROMYCIN 47123727631 No Longer Active Capo Poe MD Active FISH OIL 500 MG CAPS by mouth twice a day OMEGA-3 FATTY ACIDS 25619264175 Active Capo Poe MD Active FLAXSEED OIL 1000 MG CAPS Take two by mouth daily FLAXSEED (LINSEED) 55227051217 Active Zoran Arzola MD Active RED YEAST RICE 600 MG CAPS Take two by mouth daily RED YEAST RICE EXTRACT 35669211898 Active Zoran Arzola MD Active MULTIVITAMINS CAPS Take one by mouth daily MULTIPLE VITAMIN 67665934842 Active Zoran Arzola MD Active ICAPS MV TABS 2 po daily MULTIPLE VITAMINS-MINERALS 07754048062 Active Jam Arnold DO Active MACROBID 100 MG CAP 1 cap by mouth twice daily MACROBID 100 MG CAP 494509 NITROFURANTOIN MONOHYD MACRO Inactive FERROUS SULFATE 325 (65 FE) MG TABS Take one by mouth daily FERROUS SULFATE 325 (65 FE) MG TABS 188650 FERROUS SULFATE Inactive HYDROCODONE-ACETAMINOPHEN 7.5-300 MG TABS take one every six hours HYDROCODONE-ACETAMINOPHEN 7.5-300 MG TABS 455139 HYDROCODONE- ACETAMINOPHEN Inactive FERROUS SULFATE 325 (65 FE) MG TABS 1 tablet by mouth daily FERROUS SULFATE 325 (65 FE) MG TABS 425919 FERROUS SULFATE Inactive ZOLOFT 100 MG TABS 1 po daily ZOLOFT 100 MG TABS 723348 SERTRALINE HCL Inactive AZITHROMYCIN 250 MG TABS 2 po qd x 1 day, then 1 po qd x 4 days AZITHROMYCIN 250 MG TABS 6093540 AZITHROMYCIN Inactive TRIAMCINOLONE ACETONIDE 0.1 % OINT Apply to affected areas TID for up to 2 weeks TRIAMCINOLONE ACETONIDE 0.1 % OINT 4092269 TRIAMCINOLONE ACETONIDE Inactive TRIAMCINOLONE ACETONIDE 0.1 % OINT Apply to affected areas TID for up to 2 weeks TRIAMCINOLONE ACETONIDE 0.1 % OINT 8728721 TRIAMCINOLONE ACETONIDE Inactive Advance Directives Directive Description [...] 10*3/mm3 Lab Report: CBC W/DIFF - Hematology hemoglobin, blood 13.2 g/dL 13.5-17.5 hematocrit, blood 39.4 % 41.0-53.0 mean corpuscular volume, RBC 96 fL 80-97 mean corpuscular hemoglobin, RBC 32.0 pg 27.0-31.2 mean corpuscular hemoglobin concentration, RBC 33.5 G/DL % 31.8- 35.4 red blood cell distribution width 14.0 % 11.6-14.8 platelet count 234 10^3/MM^3 10*3/mm3 528-759 1109/06/11 erythrocyte (RBC) count 4.12 10^6/MM^3 10*6/mm3 4.69-6.13 lymphocytes as percent of blood leukocytes 16.4 % 20.5-51.1 monocytes as percent of blood leukocytes 5.8 % 1.7-9.3 neutrophils as percent of blood leukocytes 74.8 % 42.2-75.2 leukocyte count, blood 8.2 10^3/MM^3 10*3/mm3 4.6-10.2 Lab Report: CBC W/DIFF, Comp. Metabolic Panel - Chemistry sodium, serum 140 mmol/L 559-895 3407/05/21 potassium, serum 4.0 mmol/L 3.5-5.2 chloride, serum [...] Panel, Comp. Metabolic Panel, CBC - Chemistry potassium, serum 5.0 mmol/L 3.5-5.2 chloride, serum 105 mmol/L 98-107 carbon dioxide, venous blood 30.3 mmol/L 21.0-32.0 blood glucose 86 mg/dL 65-110 urea nitrogen, blood 17 mg/dL 7-18 creatinine, serum 1.20 mg/dL 0.60-1.30 alanine aminotransferase (SGPT), serum 27 U/L 12-78 aspartate aminotransferase (SGOT), serum 27 U/L 15-37 calcium, serum 8.4 mg/dL 8.5-10.1 bilirubin, serum, total 0.40 mg/dL 0.00-1.00 cholesterol, serum 207 mg/dL 644-944 6746/02/11 triglyceride, serum, fasting 74 mg/dL 30-200 HDL cholesterol, serum 62 mg/dL 32-96 LDL cholesterol, serum 130 mg/dL 0-130 sodium, serum 144 mmol/L 136-145 Lab Report: Lipid Panel, Comp. Metabolic Panel, [...] 1.0-3.5 Office Visit: Follow up - Chemistry protein, total urine random 1+ mg/dL RBC, urine, dipstick negative Office Visit: Follow up - Urinalysis ketones, urine, by test strip negative bilirubin, urine negative glucose, urine, semiquantitative negative urine color yellow appearance, urine clear leukocyte esterase, urine, by dipstick 3+ nitrite, urine, semiquantitative positive urobilinogen, urine, semiquantitative (dipstick) 0.2 protein, urine, semiquantitative (dipstick) negative pH, urine, semiquantitative 7 specific gravity, urine 1.015 urinalysis, routine Clean Catch culture status Yes Encounters Code Encounter Date Provider Facility CPT-65468 Level 3 Est. Patient 08:20:19 CDT Zoran Arzola MD [facility] CPT-04410 Level 3 Est. Patient 09:22:21 CDT Capo Poe MD [facility] CPT-94204 Level 4 Est. Patient 10:21:30 [employer] Capo Poe MD [facility] CPT-59904 Level 3 Est. Patient 17:08:51 [employer] Zoran Arzola MD [facility] CPT-08857 Level 4 Est. Patient 09:44:42 CDT Capo Poe MD [facility] CPT-33385 Level 4 Est. Patient 10:39:29 CDT Capo Poe MD [facility] CPT-24537 Level 3 Est. Patient 17:45:23 CDT Zoran Arzola MD [facility] CPT-12395 Level 4 Est. Patient 08:50:44 CDT Capo Poe MD [facility] CPT-34411 Level 3 Est. Patient 10:39:51 [employer] Capo Poe MD [facility] CPT-47373 Level 4 Est. Patient 09:44:24 [employer] Capo Poe MD [facility] CPT-25235 Level 3 Est. Patient 14:48:42 [employer] Zoran Arzola MD [facility] CPT-36908 Level 4 Est. Patient 10:24:02 CDT Capo Poe MD [facility] CPT-90646 Level 3 Est. [facility] 15:42:[facility] Level 4 Est. Patient 13:34:15 CDT Capo Poe MD [facility] CPT-74536 Level 3 Est. Patient 15:32:10 [employer] Zoran Arzola MD [facility] CPT-26512 Level 3 New Patient 17:17:19 [employer] Zoran Arzola MD [facility] CPT-74000 Level 4 Est. Patient 10:25:01 [employer] Capo Poe MD [facility] CPT-46609 Level 3 Est. Patient 10:10:42 CDT Zoran Arzola MD [facility] CPT-03184 Level 3 Est. Patient 22:30:02 CDT Zoran Arzola MD [facility] CPT-15262 Level 4 Est. Patient 09:54:20 CDT Capo Poe MD [facility] CPT-71409 Level 3 Est. Patient 10:48:30 CDT Capo Poe MD [facility] CPT-07949 Level 3 Est. Patient 11:24:45 CDT Capo Poe MD [facility] CPT-75237 Level 3 Est. Patient 15:23:48 [employer] Capo Poe MD [facility] CPT-32001 Level 3 Est. Patient 15:10:03 [employer] Capo Poe MD [facility] CPT-80634 Level 3 Est. Patient 16:18:40 CDT Zoran Arzola MD [facility] Procedures Code Procedure Name Date Entry Date Standard Description CPT-63980 Postop F/U Visit 09:48:32 CDT CPT-02090 Abd single AP View 13:58:26 CDT CPT-91092 Hip comp min 2V 10:27:18 [employer] CPT-99264 Urine Dip (Floor Use Only) 13:41:01 [employer] CPT-71375 Postop F/U Visit 11:17:48 CDT CPT-LR Lesion Removal 11:50:22 CDT CPT-OV Office Visit 11:50:22 CDT CPT-52414 Pneumovax 23 10:55:48 CDT CPT-04627 Administration single or combination vaccine inc oral 10 :55:48 CDT CPT-Cryo Cryotherapy 11:18:11 CDT CPT-OV Office Visit 11:18:11 CDT CPT-77876 LS spine AP and Lat 09:05:22 CDT CPT-32565 Bladder Scan 15:42:00 CDT CPT-18198 Cystoscopy 15:42:00 CDT CPT-OV Office Visit 16:37:19 [employer] CPT-60779 Bladder Scan 15:32:10 [employer] CPT-88680 Cystoscopy 15:32:10 [employer] CPT-34441 Abd single AP View 14:05:59 [employer] CPT-58228 Pill cam small bowel 09:48:39 [employer] CPT-98331 Urine Dip (Floor Use Only) 17:17:19 [employer] CPT-32411 Bladder Scan 17:17:19 [employer] CPT-OV Office Visit 11:50:26 [employer] CPT-42332 Bladder Scan 10:10:42 CDT CPT-12630 Venipuncture Draw Fee 09:14:04 CDT CPT-43409 Chest 2V Frontal and Lat 10:10:49 CDT CPT-94331 LS spine comp w obliq 11:50:11 CDT CPT-34566 Venipuncture Draw Fee 08:52:57 [employer] CPT-42254 Cystoscopy W/rem FB 18:37:28 CDT CPT-60779 Abd single AP View 16:18:40 CDT CPT-27867 Abd compl w upright 17:30:59 CDT
--- OUTSIDE RECORDS SUMMARY | 2016-11-22 16:17 | XMS REPORT | Clinical Summary ---
Author Author Admin, QIE Organization [employer] Address Unknown Phone Unavailable Allergies, Adverse Reactions, [...] collapse Iron deficiency 280.9 Active Jasmin Dixon [facility] Iron deficiency anemia, unspecified COPD, acute exacerbation [...] then 1 po qd x 4 AZITHROMYCIN 66423092584 Active Capo Poe MD Active PREDNISONE 20 MG ORAL TABS 2 po qd x 5 days PREDNISONE 20702696200 Active Capo Poe MD Active CARAFATE 1 GM ORAL TABS 1 tid SUCRALFATE 49351144141 Active Capo Poe MD Active RANITIDINE HCL 150 MG ORAL TABS 1 bid RANITIDINE HCL 22835698806 Active Capo Poe MD Active MULTIVITAMINS CAPS Take one by mouth daily MULTIPLE VITAMIN 06141663907 No Longer Active Capo Poe MD Active LISINOPRIL 10 MG TABS 1 tablet by mouth daily LISINOPRIL 31513982695 No Longer Active Capo Poe MD Active EQL IRON SUPPLEMENT THERAPY 325 MG ORAL TABS 1 tab po twice daily FERROUS SULFATE 22167453916 Active Jasmin Dixon RMA Active D ORAL TABS 2000 iu weekly D ORAL TABS Active Capo Poe MD Active CITALOPRAM HYDROBROMIDE 20 MG TABS 1 tablet by mouth daily CITALOPRAM HYDROBROMIDE 42487661383 Active Capo Poe MD Active CLARITIN 5 MG ORAL CHEW 1 tab po q day LORATADINE 72289525030 Active Felisa Shelley [place] Active VIIBRYD STARTER PACK 10 & 20 MG ORAL KIT 1 po qd as directed 2015 VILAZODONE HCL 67596422632 No Longer Active Felisa Daphney RMA Active HYDROXYZINE HCL 25 MG TAB 1 po qHS PRN Insomnia HYDROXYZINE HCL 36481526027 Active Capo Poe MD Active LORTAB 7.5-325 MG ORAL TABS 1 po q 6 hr prn pain HYDROCODONE- ACETAMINOPHEN 39156429520 No Longer Active Capo Poe MD Active FLOMAX 0.4 MG CAPS Take one by mouth daily TAMSULOSIN HCL 54362513915 No Longer Active Capo Poe MD Active TRIAMCINOLONE ACETONIDE 0.1 % CREA Apply to affected areas TID for up to 2 weeks TRIAMCINOLONE ACETONIDE 03430560065 Active Capo Poe MD Active NICOTINE 14 MG/24HR TRANS PT24 Apply/Change q 24hr NICOTINE 91520898994 No Longer Active Capo Poe MD Active TRAMADOL HCL 50 MG TABS 1-2 tablets every 6 hours as needed for pain TRAMADOL HCL 02277606099 No Longer Active Capo Poe MD Active SERTRALINE HCL 100 MG ORAL TABS take 1 tab daily SERTRALINE HCL 29742119911 No Longer Active Capo Poe MD Active LISINOPRIL-HYDROCHLOROTHIAZIDE 10-12.5 MG TABS 0.5 tab by mouth daily LISINOPRIL-HYDROCHLOROTHIAZIDE 88044600208 No Longer Active Capo Poe MD Active OMEPRAZOLE 20 MG CPDR 1 tablet by mouth daily OMEPRAZOLE 18043178976 Active Capo Poe MD Active WELLBUTRIN SR 150 MG ORAL [id number] 1 po BID BUPROPION HCL 12056380549 No Longer Active Capo Poe MD Active MIRALAX PACK 1 po qd PRN Constipation POLYETHYLENE GLYCOL 3350 93511239083 Active Capo Poe MD Active DULERA 100-5 MCG/ACT AERO 2 puffs BID MOMETASONE FURO- FORMOTEROL FUM 45868238441 Active Capo Poe MD Active ZOLOFT 100 MG TABS 1 po daily SERTRALINE HCL 93465782838 No Longer Active Zoran Arzola MD Active FERROUS SULFATE 325 (65 FE) MG TABS 1 tablet by mouth daily FERROUS SULFATE 12290486462 No Longer Active Capo Poe MD Active HYDROCODONE-ACETAMINOPHEN 7.5-300 MG TABS take one every six hours HYDROCODONE-ACETAMINOPHEN 53738040736 No Longer Active Capo Poe MD Active TRIAMCINOLONE ACETONIDE 0.1 % OINT Apply to affected areas TID for up to 2 weeks TRIAMCINOLONE ACETONIDE 11428336664 No Longer Active Joe Vargas RN Active FERROUS SULFATE 325 (65 FE) MG TABS Take one by mouth daily FERROUS SULFATE 75654115092 No Longer Active Capo Poe MD Active TRIAMCINOLONE ACETONIDE 0.1 % OINT Apply to affected areas TID for up to 2 weeks TRIAMCINOLONE ACETONIDE 88282082393 No Longer Active Capo Poe MD Active ADULT ASPIRIN LOW STRENGTH 81 MG TBDP qd ASPIRIN 07052232681 Active Zoran Arzola MD Active ALEVE 220 MG TAB prn NAPROXEN SODIUM 49669385143 Active Capo Poe MD Active MACROBID 100 MG CAP 1 cap by mouth twice daily NITROFURANTOIN MONOHYD MACRO 74746008141 No Longer Active Donaarmando Becker Active AZITHROMYCIN 250 MG TABS 2 po qd x 1 day, then 1 po qd x 4 days AZITHROMYCIN 11692736191 No Longer Active Capo Poe MD Active FISH OIL 500 MG CAPS by mouth twice a day OMEGA-3 FATTY ACIDS 50725566057 Active Capo Poe MD Active FLAXSEED OIL 1000 MG CAPS Take two by mouth daily FLAXSEED (LINSEED) 05111917714 Active Zoran Arzola MD Active RED YEAST RICE 600 MG CAPS Take two by mouth daily RED YEAST RICE EXTRACT 82821523671 Active Zoran Arzola MD Active ICAPS MV TABS 2 po daily MULTIPLE VITAMINS-MINERALS 38913082347 Active Jam Arnold DO Active MACROBID 100 MG CAP 1 cap by mouth twice daily MACROBID 100 MG CAP 2350713 NITROFURANTOIN MONOHYD MACRO Inactive FERROUS SULFATE 325 (65 FE) MG TABS Take one by mouth daily FERROUS SULFATE 325 (65 FE) MG TABS 878070 FERROUS SULFATE Inactive HYDROCODONE-ACETAMINOPHEN 7.5-300 MG TABS take one every six hours HYDROCODONE-ACETAMINOPHEN 7.5-300 MG TABS 360345 HYDROCODONE- ACETAMINOPHEN Inactive FERROUS SULFATE 325 (65 FE) MG TABS 1 tablet by mouth daily FERROUS SULFATE 325 (65 FE) MG TABS 203933 FERROUS SULFATE Inactive ZOLOFT 100 MG TABS 1 po daily ZOLOFT 100 MG TABS 120544 SERTRALINE HCL Inactive SERTRALINE HCL 100 MG ORAL TABS take 1 tab daily SERTRALINE HCL 100 MG ORAL TABS 006988 SERTRALINE HCL Inactive TRAMADOL HCL 50 MG TABS 1-2 tablets every 6 hours as needed for pain TRAMADOL HCL 50 MG TABS 442849 TRAMADOL HCL Inactive NICOTINE 14 MG/24HR TRANS PT24 Apply/Change q 24hr NICOTINE 14 MG/24HR TRANS PT24 19790323 NICOTINE Inactive FLOMAX 0.4 MG CAPS Take one by mouth daily FLOMAX 0.4 MG CAPS 145948 TAMSULOSIN HCL Inactive LORTAB 7.5-325 MG ORAL TABS 1 po q 6 hr prn pain LORTAB 7.5- 325 MG ORAL TABS 550434 HYDROCODONE-ACETAMINOPHEN Inactive VIIBRYD STARTER PACK 10 & 20 MG ORAL KIT 1 po qd as directed 2015 VIIBRYD STARTER PACK 10 & 20 MG ORAL KIT VILAZODONE HCL Inactive LISINOPRIL 10 MG TABS 1 tablet by mouth daily LISINOPRIL 10 MG TABS 329764 LISINOPRIL Inactive MULTIVITAMINS CAPS Take one by mouth daily MULTIVITAMINS CAPS MULTIPLE VITAMIN Inactive AZITHROMYCIN 250 MG TABS 2 po qd x 1 day, then 1 po qd x 4 days AZITHROMYCIN 250 MG TABS 5486780 AZITHROMYCIN Inactive TRIAMCINOLONE ACETONIDE 0.1 % OINT Apply to affected areas TID for up to 2 weeks TRIAMCINOLONE ACETONIDE 0.1 % OINT 0981459 TRIAMCINOLONE ACETONIDE Inactive TRIAMCINOLONE ACETONIDE 0.1 % OINT Apply to affected areas TID for up to 2 weeks TRIAMCINOLONE ACETONIDE 0.1 % OINT 7330305 TRIAMCINOLONE ACETONIDE Inactive Advance Directives Directive Description [...] ... - Chemistry sodium, serum 141 mmol/L 062-028 0094/01/27 carbon dioxide, venous blood 29.7 mmol/L 21.0-32.0 [...] % 11.0-15.0 platelet count 214 THOUSAND/UL 10*3/mm3 845-489 8482/03/31 mean platelet volume 8.4 fL 7.5-12.5 Encounters Code Encounter Date Provider Facility CPT-90304 Level 3 Est. Patient 09:44:06 CDT Capo Poe MD [facility] CPT-43697 Level 4 Est. Patient 09:26:11 MEDICAL DERMATOLOGIST Capo Poe MD [facility] CPT-52524 Level 4 Est. Patient 08:53:08 CDT Capo Poe MD [facility] CPT-49926 Level 4 Est. Patient 10:22:57 CDT Capo Poe MD [facility] CPT-31671 Level 4 Est. Patient 13:44:30 CDT Capo Poe MD [facility] CPT-23285 Level 3 Est. Patient 14:59:32 MEDICAL DERMATOLOGIST Capo Poe MD [facility] CPT-64054 Level 4 Est. Patient 10:46:15 MEDICAL DERMATOLOGIST Capo Poe MD [facility] CPT-43065 Level 3 Est. Patient 11:00:53 CDT Capo Poe MD [facility] CPT-18736 Level 3 Est. Patient 09:39:35 CDT Capo Poe MD [facility] CPT-54054 Level 3 Est. Patient 09:27:01 CDT Capo Poe MD [facility] CPT-90942 Level 3 Est. Patient 18:37:08 CDT Zoran Arzola MD [facility] CPT-23578 Level 3 Est. Patient 15:00:28 CDT Capo Poe MD [facility] CPT-02323 Level 3 Est. Patient 08:20:19 CDT Zoran Arzola MD [facility] CPT-92427 Level 3 Est. Patient 09:22:21 CDT Capo Poe MD [facility] CPT-94748 Level 4 Est. Patient 10:21:30 MEDICAL DERMATOLOGIST Capo Poe MD [facility] CPT-93936 Level 3 Est. Patient 17:08:51 MEDICAL DERMATOLOGIST Zoran Arzola MD [facility] CPT-16183 Level 4 Est. Patient 09:44:42 CDT Capo Poe MD [facility] CPT-79333 Level 4 Est. Patient 10:39:29 CDT Capo Poe MD [facility] CPT-71718 Level 3 Est. Patient 17:45:23 CDT Zoran Arzola MD [facility] CPT-49289 Level 4 Est. Patient 08:50:44 CDT Capo Poe MD [facility] CPT-16633 Level 3 Est. Patient 10:39:51 MEDICAL DERMATOLOGIST Capo Poe MD [facility] CPT-45313 Level 4 Est. Patient 09:44:24 MEDICAL DERMATOLOGIST Capo Poe MD [facility] CPT-78620 Level 3 Est. Patient 14:48:42 MEDICAL DERMATOLOGIST Zoran Arzola MD [facility] CPT-41695 Level 4 Est. Patient 10:24:02 CDT Capo Poe MD [facility] CPT-44325 Level 3 Est. Patient 15:42:00 CDT Maya DUKES [facility] CPT-99682 Level 4 Est. Patient 13:34:15 CDT Capo Poe MD [facility] CPT-39730 Level 3 Est. Patient 15:32:10 MEDICAL DERMATOLOGIST Zoran Arzola MD [facility] CPT-26097 Level 3 New Patient 17:17:19 MEDICAL DERMATOLOGIST Zoran Arzola MD [facility] CPT-80181 Level 4 Est. Patient 10:25:01 MEDICAL DERMATOLOGIST Capo Poe MD [facility] CPT-92599 Level 3 Est. Patient 10:10:42 CDT Zoran Arzola MD [facility] CPT-84687 Level 3 Est. Patient 22:30:02 CDT Zoran Arzola MD [facility] CPT-75402 Level 4 Est. Patient 09:54:20 CDT Capo Poe MD [facility] CPT-16121 Level 3 Est. Patient 10:48:30 CDT Capo Poe MD [facility] CPT-97087 Level 3 Est. Patient 11:24:45 CDT Capo Poe MD [facility] CPT-58598 Level 3 Est. Patient 15:23:48 MEDICAL DERMATOLOGIST Capo Poe MD [facility] CPT-62301 Level 3 Est. Patient 15:10:03 MEDICAL DERMATOLOGIST Capo Poe MD [facility] CPT-56013 Level 3 Est. Patient 16:18:40 CDT Zoran Arzola MD [facility] Procedures Code Procedure Name Date Entry Date Standard Description CPT-33743 Hemoccult IFOBT - LAB USE ONLY 14:11:43 MEDICAL DERMATOLOGIST CPT-41772 TPSA - LAB USE ONLY 10:37:52 MEDICAL DERMATOLOGIST CPT-93063 TSH - LAB USE ONLY 10:37:51 MEDICAL DERMATOLOGIST CPT-20512 CMP - LAB USE ONLY 10:37:51 MEDICAL DERMATOLOGIST CPT-86933 CBC with Diff - LAB USE ONLY 10:37:51 MEDICAL DERMATOLOGIST CPT-21940 Venipuncture Draw Fee 10:37:51 MEDICAL DERMATOLOGIST CPT-000 Give Pneumovax 10:39:30 CDT CPT-15621 Venipuncture Draw Fee 09:32:34 CDT CPT-G0438 Initial Annual Wellness Exam 10:24:35 CDT CPT-12988 Venipuncture Draw Fee 09:46:29 CDT CPT-35882 Venipuncture Draw Fee 14:30:06 CDT CPT-66444 Venipuncture Draw Fee 10:58:22 CDT CPT-60608 Abd single AP View 08:32:00 CDT CPT-85265 Postop F/U Visit 21:13:08 CDT CPT-24547 Abd single AP View 15:50:24 CDT CPT-35685 Cystoscopy W/rem FB 15:21:28 CDT CPT-50943 Abd single AP View 14:06:45 CDT CPT-19759 Postop F/U Visit 09:48:32 CDT CPT-95279 Abd single AP View 13:58:26 CDT CPT-35882 Hip comp min 2V 10:27:18 MEDICAL DERMATOLOGIST CPT-23317 Urine Dip (Floor Use Only) 13:41:01 MEDICAL DERMATOLOGIST CPT-51461 Postop F/U Visit 11:17:48 CDT CPT-LR Lesion Removal 11:50:22 CDT CPT-OV Office Visit 11:50:22 CDT CPT-82382 Pneumovax 23 10:55:48 CDT CPT-86794 Administration single or combination vaccine inc oral 10 :55:48 CDT CPT-Cryo Cryotherapy 11:18:11 CDT CPT-OV Office Visit 11:18:11 CDT CPT-62280 LS spine AP and Lat 09:05:22 CDT CPT-98997 Bladder Scan 15:42:00 CDT CPT-60395 Cystoscopy 15:42:00 CDT CPT-OV Office Visit 16:37:19 MEDICAL DERMATOLOGIST CPT-94720 Bladder Scan 15:32:10 MEDICAL DERMATOLOGIST CPT-02946 Cystoscopy 15:32:10 MEDICAL DERMATOLOGIST CPT-16831 Abd single AP View 14:05:59 MEDICAL DERMATOLOGIST CPT-50731 Pill cam small bowel 09:48:39 MEDICAL DERMATOLOGIST CPT-06477 Urine Dip (Floor Use Only) 17:17:19 MEDICAL DERMATOLOGIST CPT-52396 Bladder Scan 17:17:19 MEDICAL DERMATOLOGIST CPT-OV Office Visit 11:50:26 MEDICAL DERMATOLOGIST CPT-12575 Bladder Scan 10:10:42 CDT CPT-61126 Venipuncture Draw Fee 09:14:04 CDT CPT-41089 Chest 2V Frontal and Lat 10:10:49 CDT CPT-26749 LS spine comp w obliq 11:50:11 CDT CPT-43628 Venipuncture Draw Fee 08:52:57 MEDICAL DERMATOLOGIST CPT-91439 Cystoscopy W/rem FB 18:37:28 CDT CPT-29101 Abd single AP View 16:18:40 CDT CPT-32715 Abd compl w upright 17:30:59 CDT
--- OUTSIDE RECORDS SUMMARY | 2016-11-22 16:19 | XMS REPORT | Clinical Summary ---
Author Author Admin, MARGE Organization [facility] Address Unknown Phone Unavailable Allergies, Adverse [...] collapse Carotid artery stenosis 433.10 Active Capo oPe MD Occlusion and stenosis of carotid artery, [...] 1 po q6hr PRN Itching HYDROXYZINE HCL 60967499369 Active Capo Poe MD Active TRIAMCINOLONE ACETONIDE 0.1 % CREA Apply to affected areas TID for up to 2 weeks TRIAMCINOLONE ACETONIDE 58499418998 Active Capo Poe MD Active NICOTINE 14 MG/24HR TRANS PT24 Apply/Change q 24hr NICOTINE 78988101892 No Longer Active Capo Poe MD Active TRAMADOL HCL 50 MG TABS 1-2 tablets every 6 hours as needed for pain TRAMADOL HCL 22320964578 No Longer Active Capo Poe MD Active SERTRALINE HCL 100 MG ORAL TABS take 1 tab daily SERTRALINE HCL 92568865647 No Longer Active Capo Poe MD Active LISINOPRIL-HYDROCHLOROTHIAZIDE 10-12.5 MG TABS 0.5 tab by mouth daily LISINOPRIL-HYDROCHLOROTHIAZIDE 76495436728 Active Capo Poe MD Active OMEPRAZOLE 20 MG CPDR 1 tablet by mouth daily OMEPRAZOLE 41503717476 Active Capo Poe MD Active WELLBUTRIN SR 150 MG ORAL [id number]-[id number] 1 po BID BUPROPION HCL 94967577709 Active Capo Poe MD Active LORTAB 7.5-325 MG ORAL TABS 1 po q 6 hr prn pain HYDROCODONE- ACETAMINOPHEN 30925851893 Active Capo Poe MD Active FLOMAX 0.4 MG CAPS Take one by mouth daily TAMSULOSIN HCL 04480425606 Active Capo Poe MD Active MIRALAX PACK 1 po qd PRN Constipation POLYETHYLENE GLYCOL 3350 77198760561 Active Capo Poe MD Active DULERA 100-5 MCG/ACT AERO 2 puffs BID MOMETASONE FURO- FORMOTEROL FUM 11851183818 Active Capo Poe MD Active ZOLOFT 100 MG TABS 1 po daily SERTRALINE HCL 21800753758 No Longer Active Zoran Arzola MD Active FERROUS SULFATE 325 (65 FE) MG TABS 1 tablet by mouth daily FERROUS SULFATE 78969590400 No Longer Active Capo Poe MD Active HYDROCODONE-ACETAMINOPHEN 7.5-300 MG TABS take one every six hours HYDROCODONE-ACETAMINOPHEN 82345691458 No Longer Active Capo Poe MD Active TRIAMCINOLONE ACETONIDE 0.1 % OINT Apply to affected areas TID for up to 2 weeks TRIAMCINOLONE ACETONIDE 98406294641 No Longer Active Joe Vargas RN Active FERROUS SULFATE 325 (65 FE) MG TABS Take one by mouth daily FERROUS SULFATE 17724121498 No Longer Active Capo Poe MD Active TRIAMCINOLONE ACETONIDE 0.1 % OINT Apply to affected areas TID for up to 2 weeks TRIAMCINOLONE ACETONIDE 37198309340 No Longer Active Capo Poe MD Active ADULT ASPIRIN LOW STRENGTH 81 MG TBDP qd ASPIRIN 75904042543 Active Zoran Arzola MD Active ALEVE 220 MG TAB prn NAPROXEN SODIUM 94728096910 Active Capo Poe MD Active MACROBID 100 MG CAP 1 cap by mouth twice daily NITROFURANTOIN MONOHYD MACRO 35777295983 No Longer Active Dona Becker Active AZITHROMYCIN 250 MG TABS 2 po qd x 1 day, then 1 po qd x 4 days AZITHROMYCIN 26447299746 No Longer Active Capo Poe MD Active FISH OIL 500 MG CAPS by mouth twice a day OMEGA-3 FATTY ACIDS 55869909805 Active Cpao Poe MD Active FLAXSEED OIL 1000 MG CAPS Take two by mouth daily FLAXSEED (LINSEED) 28032432595 Active Zoran Arzola MD Active RED YEAST RICE 600 MG CAPS Take two by mouth daily RED YEAST RICE EXTRACT 68715401119 Active Zoran Arzola MD Active MULTIVITAMINS CAPS Take one by mouth daily MULTIPLE VITAMIN 68189701376 Active Zoran Arzola MD Active ICAPS MV TABS 2 po daily MULTIPLE VITAMINS-MINERALS 36390487386 Active Jam Arnold DO Active MACROBID 100 MG CAP 1 cap by mouth twice daily MACROBID 100 MG CAP 1054506 NITROFURANTOIN MONOHYD MACRO Inactive FERROUS SULFATE 325 (65 FE) MG TABS Take one by mouth daily FERROUS SULFATE 325 (65 FE) MG TABS 029869 FERROUS SULFATE Inactive HYDROCODONE-ACETAMINOPHEN 7.5-300 MG TABS take one every six hours HYDROCODONE-ACETAMINOPHEN 7.5-300 MG TABS 960136 HYDROCODONE- ACETAMINOPHEN Inactive FERROUS SULFATE 325 (65 FE) MG TABS 1 tablet by mouth daily FERROUS SULFATE 325 (65 FE) MG TABS 900131 FERROUS SULFATE Inactive ZOLOFT 100 MG TABS 1 po daily ZOLOFT 100 MG TABS 573715 SERTRALINE HCL Inactive SERTRALINE HCL 100 MG ORAL TABS take 1 tab daily SERTRALINE HCL 100 MG ORAL TABS 394159 SERTRALINE HCL Inactive TRAMADOL HCL 50 MG TABS 1-2 tablets every 6 hours as needed for pain TRAMADOL HCL 50 MG TABS 197221 TRAMADOL HCL Inactive NICOTINE 14 MG/24HR TRANS PT24 Apply/Change q 24hr NICOTINE 14 MG/24HR TRANS PT24 051081 NICOTINE Inactive AZITHROMYCIN 250 MG TABS 2 po qd x 1 day, then 1 po qd x 4 days AZITHROMYCIN 250 MG TABS 0766329 AZITHROMYCIN Inactive TRIAMCINOLONE ACETONIDE 0.1 % OINT Apply to affected areas TID for up to 2 weeks TRIAMCINOLONE ACETONIDE 0.1 % OINT 7671002 TRIAMCINOLONE ACETONIDE Inactive TRIAMCINOLONE ACETONIDE 0.1 % OINT Apply to affected areas TID for up to 2 weeks TRIAMCINOLONE ACETONIDE 0.1 % OINT 5460154 TRIAMCINOLONE ACETONIDE Inactive Advance Directives Directive Description [...] Panel - Chemistry sodium, serum 139 mmol/L 927-171 8598/07/30 potassium, serum 4.7 mmol/L 3.5-5.2 chloride, serum 101 mmol/L 98-107 carbon dioxide, venous blood 34.8 mmol/L 21.0-32.0 blood glucose 124 mg/dL 65-110 calcium, serum 8.9 mg/dL 8.5-10.1 urea nitrogen, blood 18 mg/dL 7-18 creatinine, serum 1.40 mg/dL 0.60-1.30 Lab Report: Comp. Metabolic Panel, Lipid Panel, HGBA1C, CBC, MICROALB/CR ... - Chemistry sodium, serum 138 mmol/L 356-438 2856/03/18 carbon dioxide, venous blood 25.5 mmol/L 21.0-32.0 potassium, serum 4.6 mmol/L 3.5-5.2 chloride, serum 101 mmol/L 98-107 blood glucose 129 mg/dL 65-110 urea nitrogen, blood 20 mg/dL 7-18 creatinine, serum 1.87 mg/dL 0.55-1.30 alanine aminotransferase (SGPT), serum 26 U/L 12-78 aspartate aminotransferase (SGOT), serum 20 U/L 15-37 calcium, serum 8.8 mg/dL 8.5-10.1 bilirubin, serum, total 0.40 mg/dL 0.00-1.00 cholesterol, serum 251 mg/dL 126-240 4508/03/18 triglyceride, serum, fasting 135 mg/dL 30-200 HDL [...] negative Encounters Code Encounter Date Provider Facility CPT-00684 Level 3 Est. Patient 14:59:32 BULLARD MACHINE OPERATOR Capo Poe MD [facility] CPT-17139 Level 4 Est. Patient 10:46:15 BULLARD MACHINE OPERATOR Capo Poe MD [facility] CPT-88400 Level 3 Est. Patient 11:00:53 CDT Capo Poe MD [facility] CPT-46891 Level 3 Est. Patient 09:39:35 CDT Capo Poe MD [facility] CPT-29081 Level 3 Est. Patient 09:27:01 CDT Capo Poe MD [facility] CPT-68532 Level 3 Est. Patient 18:37:08 CDT Zoran Arzola MD [facility] CPT-83658 Level 3 Est. Patient 15:00:28 CDT Capo Poe MD [facility] CPT-97295 Level 3 Est. Patient 08:20:19 CDT Zoran Arzola MD [facility] CPT-98318 Level 3 Est. Patient 09:22:21 CDT Capo Poe MD [facility] CPT-43476 Level 4 Est. Patient 10:21:30 BULLARD MACHINE OPERATOR Capo Poe MD [facility] CPT-24487 Level 3 Est. Patient 17:08:51 BULLARD MACHINE OPERATOR Zoran Arzola MD [facility] CPT-34513 Level 4 Est. Patient 09:44:42 CDT Capo Poe MD [facility] CPT-64516 Level 4 Est. Patient 10:39:29 CDT Capo Poe MD [facility] CPT-12116 Level 3 Est. Patient 17:45:23 CDT Zoran Arzola MD [facility] CPT-82440 Level 4 Est. Patient 08:50:44 CDT Capo Poe MD [facility] CPT-20871 Level 3 Est. Patient 10:39:51 BULLARD MACHINE OPERATOR Capo Poe MD [facility] CPT-30925 Level 4 Est. Patient 09:44:24 BULLARD MACHINE OPERATOR Capo Poe MD [facility] CPT-66288 Level 3 Est. Patient 14:48:42 BULLARD MACHINE OPERATOR Zoran Arzola MD [facility] CPT-95269 Level 4 Est. Patient 10:24:02 CDT Capo Poe MD [facility] CPT-25961 Level 3 Est. Patient 15:42:00 CDT Maya Brownlee [facility] CPT-17449 Level 4 Est. Patient 13:34:15 CDT Capo Poe MD [facility] CPT-10746 Level 3 Est. Patient 15:32:10 BULLARD MACHINE OPERATOR Zoran Arzola MD [facility] CPT-68619 Level 3 New Patient 17:17:19 BULLARD MACHINE OPERATOR Zoran Arzola MD [facility] CPT-72172 Level 4 Est. Patient 10:25:01 BULLARD MACHINE OPERATOR Capo Poe MD [facility] CPT-32181 Level 3 Est. Patient 10:10:42 CDT Zoran Arzola MD [facility] CPT-47363 Level 3 Est. Patient 22:30:02 CDT Zoran Arzola MD [facility] CPT-48233 Level 4 Est. Patient 09:54:20 CDT Capo Poe MD [facility] CPT-32167 Level 3 Est. Patient 10:48:30 CDT Capo Poe MD [facility] CPT-74792 Level 3 Est. Patient 11:24:45 CDT Capo Poe MD [facility] CPT-24371 Level 3 Est. Patient 15:23:48 BULLARD MACHINE OPERATOR Capo Poe MD [facility] CPT-53070 Level 3 Est. Patient 15:10:03 BULLARD MACHINE OPERATOR Capo Poe MD [facility] CPT-29725 Level 3 Est. Patient 16:18:40 CDT Zoran Arzola MD [facility] Procedures Code Procedure Name Date Entry Date Standard Description CPT-06484 Venipuncture Draw Fee 09:46:29 CDT CPT-71505 Venipuncture Draw Fee 14:30:06 CDT CPT-78382 Venipuncture Draw Fee 10:58:22 CDT CPT-73674 Abd single AP View 08:32:00 CDT CPT-33741 Postop F/U Visit 21:13:08 CDT CPT-62638 Abd single AP View 15:50:24 CDT CPT-16552 Cystoscopy W/rem FB 15:21:28 CDT CPT-07923 Abd single AP View 14:06:45 CDT CPT-08200 Postop F/U Visit 09:48:32 CDT CPT-00473 Abd single AP View 13:58:26 CDT CPT-52845 Hip comp min 2V 10:27:18 BULLARD MACHINE OPERATOR CPT-55787 Urine Dip (Floor Use Only) 13:41:01 BULLARD MACHINE OPERATOR CPT-18434 Postop F/U Visit 11:17:48 CDT CPT-LR Lesion Removal 11:50:22 CDT CPT-OV Office Visit 11:50:22 CDT CPT-07213 Pneumovax 23 10:55:48 CDT CPT-54404 Administration single or combination vaccine inc oral 10 :55:48 CDT CPT-Cryo Cryotherapy 11:18:11 CDT CPT-OV Office Visit 11:18:11 CDT CPT-71755 LS spine AP and Lat 09:05:22 CDT CPT-98210 Bladder Scan 15:42:00 CDT CPT-28271 Cystoscopy 15:42:00 CDT CPT-OV Office Visit 16:37:19 BULLARD MACHINE OPERATOR CPT-46715 Bladder Scan 15:32:10 BULLARD MACHINE OPERATOR CPT-95842 Cystoscopy 15:32:10 BULLARD MACHINE OPERATOR CPT-81376 Abd single AP View 14:05:59 BULLARD MACHINE OPERATOR CPT-64780 Pill cam small bowel 09:48:39 BULLARD MACHINE OPERATOR CPT-12927 Urine Dip (Floor Use Only) 17:17:19 BULLARD MACHINE OPERATOR CPT-47225 Bladder Scan 17:17:19 BULLARD MACHINE OPERATOR CPT-OV Office Visit 11:50:26 BULLARD MACHINE OPERATOR CPT-85376 Bladder Scan 10:10:42 CDT CPT-46752 Venipuncture Draw Fee 09:14:04 CDT CPT-80773 Chest 2V Frontal and Lat 10:10:49 CDT CPT-63047 LS spine comp w obliq 11:50:11 CDT CPT-36317 Venipuncture Draw Fee 08:52:57 BULLARD MACHINE OPERATOR CPT-54344 Cystoscopy W/rem FB 18:37:28 CDT CPT-57470 Abd single AP View 16:18:40 CDT CPT-54722 Abd compl w upright 17:30:59 CDT
--- OUTSIDE RECORDS SUMMARY | 2016-11-22 16:19 | XMS REPORT ---
Author Author [facility] Medical Staff Organization [facility] Address [address] [place], [place] [address] Phone [phone] Summary purpose TRANSITION OF CARE AUTO GENERATION [...] Allergen Category Ingredient Status Reaction Severity Onset Oktmbfa-Fgk-Prv Reductase Inhibitors Drug Allergy Crpzlen-Tzz-Zjy Reductase Inhibitors Confirmed or Verified BACK PAIN morphine Drug Allergy morphine Confirmed or Verified Swelling Mild Adult Nitrofurantoin Drug Allergy Nitrofurantoin Confirmed or Verified Immunizations No immunizations recorded for this patient visit Relevant diagnostic tests and/or laboratory data No authorized results are available for this patient visit History of procedures Procedure Code Code Type Description Date Performed Performing Physician [id number] CPT-4 PT RE-EVALUATION 07-29-2015 SHAWN GRIFFIN 30183 CPT-4 MECHANICAL TRACTION THERAPY 08-02-2015 SHAWN GRIFFIN 49359 CPT-4 MECHANICAL TRACTION THERAPY 08-04-2015 SHAWN GRIFFIN 77763 CPT-4 MECHANICAL TRACTION THERAPY 08-06-2015 SHAWN GRIFFIN 70821 CPT-4 THERAPEUTIC EXERCISES 07-29-2015 SHAWN GRIFFIN [id number] [...]
--- OUTSIDE RECORDS SUMMARY | 2016-11-22 16:20 | XMS REPORT | Clinical Summary ---
Author Author Admin, MARGE Organization [facility] Address Unknown Phone Unavailable Allergies, Adverse Reactions, [...] 2 puffs BID MOMETASONE FURO- FORMOTEROL FUM 75302668206 Active Capo Poe MD Active SERTRALINE HCL 100 MG ORAL TABS take 1 tab daily SERTRALINE HCL 12608655938 Active Capo Poe MD Active ZOLOFT 100 MG TABS 1 po daily SERTRALINE HCL 78902016078 No Longer Active Zoran Arzola MD Active FERROUS SULFATE 325 (65 FE) MG TABS 1 tablet by mouth daily FERROUS SULFATE 75269830951 No Longer Active Capo Poe MD Active TRAMADOL HCL 50 MG TABS 1-2 tablets every 6 hours as needed for pain TRAMADOL HCL 50445531143 Active Capo oPe MD Active HYDROCODONE-ACETAMINOPHEN 7.5-300 MG TABS take one every six hours HYDROCODONE-ACETAMINOPHEN 29110721780 No Longer Active Capo Poe MD Active TRIAMCINOLONE ACETONIDE 0.1 % OINT Apply to affected areas TID for up to 2 weeks TRIAMCINOLONE ACETONIDE 83828723624 No Longer Active Joe Vargas RN Active FERROUS SULFATE 325 (65 FE) MG TABS Take one by mouth daily FERROUS SULFATE 69738105928 No Longer Active Capo Poe MD Active TRIAMCINOLONE ACETONIDE 0.1 % OINT Apply to affected areas TID for up to 2 weeks TRIAMCINOLONE ACETONIDE 35720829215 No Longer Active Capo Poe MD Active ADULT ASPIRIN LOW STRENGTH 81 MG TBDP qd ASPIRIN 53759283481 Active Zoran Arzola MD Active ALEVE 220 MG TAB prn NAPROXEN SODIUM 69949891327 Active Capo Poe MD Active LISINOPRIL-HYDROCHLOROTHIAZIDE 10-12.5 MG TABS 1 tab by mouth daily LISINOPRIL-HYDROCHLOROTHIAZIDE 13265672640 Active Capo Poe MD Active MACROBID 100 MG CAP 1 cap by mouth twice daily NITROFURANTOIN MONOHYD MACRO 79819844857 No Longer Active Dona Becker Active AZITHROMYCIN 250 MG TABS 2 po qd x 1 day, then 1 po qd x 4 days AZITHROMYCIN 89685225527 No Longer Active Capo Poe MD Active FISH OIL 500 MG CAPS by mouth twice a day OMEGA-3 FATTY ACIDS 48980347385 Active Capo Poe MD Active FLAXSEED OIL 1000 MG CAPS Take two by mouth daily FLAXSEED (LINSEED) 27760682914 Active Zoran Arzola MD Active RED YEAST RICE 600 MG CAPS Take two by mouth daily RED YEAST RICE EXTRACT 84009122018 Active Zoran Arzola MD Active MULTIVITAMINS CAPS Take one by mouth daily MULTIPLE VITAMIN 39082987955 Active Zoran Arzola MD Active ICAPS MV TABS 2 po daily MULTIPLE VITAMINS-MINERALS 99030684115 Active Jam Arnold DO Active MACROBID 100 MG CAP 1 cap by mouth twice daily MACROBID 100 MG CAP 244960 NITROFURANTOIN MONOHYD MACRO Inactive FERROUS SULFATE 325 (65 FE) MG TABS Take one by mouth daily FERROUS SULFATE 325 (65 FE) MG TABS 033213 FERROUS SULFATE Inactive HYDROCODONE-ACETAMINOPHEN 7.5-300 MG TABS take one every six hours HYDROCODONE-ACETAMINOPHEN 7.5-300 MG TABS 268181 HYDROCODONE- ACETAMINOPHEN Inactive FERROUS SULFATE 325 (65 FE) MG TABS 1 tablet by mouth daily FERROUS SULFATE 325 (65 FE) MG TABS 859435 FERROUS SULFATE Inactive ZOLOFT 100 MG TABS 1 po daily ZOLOFT 100 MG TABS 496123 SERTRALINE HCL Inactive AZITHROMYCIN 250 MG TABS 2 po qd x 1 day, then 1 po qd x 4 days AZITHROMYCIN 250 MG TABS 7110984 AZITHROMYCIN Inactive TRIAMCINOLONE ACETONIDE 0.1 % OINT Apply to affected areas TID for up to 2 weeks TRIAMCINOLONE ACETONIDE 0.1 % OINT 4976593 TRIAMCINOLONE ACETONIDE Inactive TRIAMCINOLONE ACETONIDE 0.1 % OINT Apply to affected areas TID for up to 2 weeks TRIAMCINOLONE ACETONIDE 0.1 % OINT 7218117 TRIAMCINOLONE ACETONIDE Inactive Advance Directives Directive Description [...] 10*3/mm3 Lab Report: CBC W/DIFF - Hematology erythrocyte (RBC) count 4.12 10^6/MM^3 10*6/mm3 4.69-6.13 lymphocytes as percent of blood leukocytes 16.4 % 20.5-51.1 monocytes as percent of blood leukocytes 5.8 % 1.7-9.3 neutrophils as percent of blood leukocytes 74.8 % 42.2-75.2 leukocyte count, blood 8.2 10^3/MM^3 10*3/mm3 4.6-10.2 hemoglobin, blood 13.2 g/dL 13.5-17.5 hematocrit, blood 39.4 % 41.0-53.0 mean corpuscular volume, RBC 96 fL 80-97 mean corpuscular hemoglobin, RBC 32.0 pg 27.0-31.2 mean corpuscular hemoglobin concentration, RBC 33.5 G/DL % 31.8- 35.4 red blood cell distribution width 14.0 % 11.6-14.8 platelet count 234 10^3/MM^3 10*3/mm3 142-424 Lab Report: CBC W/DIFF, Comp. Metabolic Panel - Chemistry sodium, serum 140 mmol/L 721-468 3143/05/21 potassium, serum 4.0 mmol/L 3.5-5.2 chloride, serum [...] CBC - Chemistry cholesterol, serum 207 mg/dL 998-067 0031/02/11 triglyceride, serum, fasting 74 mg/dL 30-200 HDL cholesterol, serum 62 mg/dL 32-96 LDL cholesterol, serum 130 mg/dL 0-130 sodium, serum 144 mmol/L 498-711 3619/02/11 potassium, serum 5.0 mmol/L 3.5-5.2 chloride, serum [...] negative Encounters Code Encounter Date Provider Facility CPT-26417 Level 3 Est. Patient 08:20:19 CDT Zoran Arzola MD [facility] CPT-61414 Level 3 Est. Patient 09:22:21 CDT Capo Poe MD [facility] CPT-86673 Level 4 Est. Patient 10:21:30 DIFFERENTIAL SPECIALIST Capo Poe MD [facility] CPT-54393 Level 3 Est. Patient 17:08:51 DIFFERENTIAL SPECIALIST Zoran Arzola MD [facility] CPT-79934 Level 4 Est. Patient 09:44:42 CDT Capo Poe MD [facility] CPT-70896 Level 4 Est. Patient 10:39:29 CDT Capo Poe MD [facility] CPT-79633 Level 3 Est. Patient 17:45:23 CDT Zoran Arzola MD [facility] CPT-88191 Level 4 Est. Patient 08:50:44 CDT Capo Poe MD [facility] CPT-28036 Level 3 Est. Patient 10:39:51 DIFFERENTIAL SPECIALIST Capo Poe MD [facility] CPT-27706 Level 4 Est. Patient 09:44:24 DIFFERENTIAL SPECIALIST Capo Poe MD [facility] CPT-34937 Level 3 Est. Patient 14:48:42 DIFFERENTIAL SPECIALIST Zoran Arzola MD [facility] CPT-77758 Level 4 Est. Patient 10:24:02 CDT Capo Poe MD [facility] CPT-29510 Level 3 Est. [facility] 4 Est. Patient 13:34:15 CDT Capo Poe MD [facility] CPT-37903 Level 3 Est. Patient 15:32:10 DIFFERENTIAL SPECIALIST Zoran Arzola MD [facility] CPT-87607 Level 3 New Patient 17:17:19 DIFFERENTIAL SPECIALIST Zoran Arzola MD [facility] CPT-15439 Level 4 Est. Patient 10:25:01 DIFFERENTIAL SPECIALIST Capo Poe MD [facility] CPT-50619 Level 3 Est. Patient 10:10:42 CDT Zoran Arzola MD [facility] CPT-02603 Level 3 Est. Patient 22:30:02 CDT Zoran Arzola MD [facility] CPT-47856 Level 4 Est. Patient 09:54:20 CDT Capo Poe MD [facility] CPT-25945 Level 3 Est. Patient 10:48:30 CDT Capo Poe MD [facility] CPT-03442 Level 3 Est. Patient 11:24:45 CDT Capo Poe MD [facility] CPT-54406 Level 3 Est. Patient 15:23:48 DIFFERENTIAL SPECIALIST Capo Poe MD [facility] CPT-70845 Level 3 Est. Patient 15:10:03 DIFFERENTIAL SPECIALIST Capo Poe MD [facility] CPT-45871 Level 3 Est. Patient 16:18:40 CDT Zoran Arzola MD [facility] Procedures Code Procedure Name Date Entry Date Standard Description CPT-57091 Abd single AP View 13:58:26 CDT CPT-12455 Hip comp min 2V 10:27:18 DIFFERENTIAL SPECIALIST CPT-91945 Urine Dip (Floor Use Only) 13:41:01 DIFFERENTIAL SPECIALIST CPT-98524 Postop F/U Visit 11:17:48 CDT CPT-LR Lesion Removal 11:50:22 CDT CPT-OV Office Visit 11:50:22 CDT CPT-46452 Pneumovax 23 10:55:48 CDT CPT-76481 Administration single or combination vaccine inc oral 10 :55:48 CDT CPT-Cryo Cryotherapy 11:18:11 CDT CPT-OV Office Visit 11:18:11 CDT CPT-18058 LS spine AP and Lat 09:05:22 CDT CPT-72601 Bladder Scan 15:42:00 CDT CPT-84987 Cystoscopy 15:42:00 CDT CPT-OV Office Visit 16:37:19 DIFFERENTIAL SPECIALIST CPT-47105 Bladder Scan 15:32:10 DIFFERENTIAL SPECIALIST CPT-69802 Cystoscopy 15:32:10 DIFFERENTIAL SPECIALIST CPT-31936 Abd single AP View 14:05:59 DIFFERENTIAL SPECIALIST CPT-37087 Pill cam small bowel 09:48:39 DIFFERENTIAL SPECIALIST CPT-49807 Urine Dip (Floor Use Only) 17:17:19 DIFFERENTIAL SPECIALIST CPT-10314 Bladder Scan 17:17:19 DIFFERENTIAL SPECIALIST CPT-OV Office Visit 11:50:26 DIFFERENTIAL SPECIALIST CPT-62644 Bladder Scan 10:10:42 CDT CPT-55984 Venipuncture Draw Fee 09:14:04 CDT CPT-66699 Chest 2V Frontal and Lat 10:10:49 CDT CPT-42045 LS spine comp w obliq 11:50:11 CDT CPT-43763 Venipuncture Draw Fee 08:52:57 DIFFERENTIAL SPECIALIST CPT-85017 Cystoscopy W/rem FB 18:37:28 CDT CPT-19520 Abd single AP View 16:18:40 CDT CPT-01640 Abd compl w upright 17:30:59 CDT
--- OUTSIDE RECORDS SUMMARY | 2016-11-22 16:21 | XMS REPORT | Clinical Summary ---
Author Author Admin, QIE Organization [facility] Address Unknown Phone Unavailable Allergies, Adverse Reactions, [...] Capo Poe MD UTI ICD-599.0 Inactive Capo oPe MD Hematuria ICD-599.70 Clyde Poe MD Sciatica, [...] 1 tablet by mouth daily CITALOPRAM HYDROBROMIDE 22136639848 Active Felisa Daphney RMMarva Active CLARITIN 5 MG ORAL CHEW 1 tab po q day LORATADINE 69209204892 Active Felisa Daphney RMA Active VIIBRYD STARTER PACK 10 & 20 MG ORAL KIT 1 po qd as directed 2015 VILAZODONE HCL 65475695172 No Longer Active Felisa Daphney RMA Active HYDROXYZINE HCL 25 MG TAB 1 po qHS PRN Insomnia HYDROXYZINE HCL 76559003659 Active Capo Poe MD Active LISINOPRIL 10 MG TABS 1 tablet by mouth daily LISINOPRIL 74040859977 Active Capo Poe MD Active LORTAB 7.5-325 MG ORAL TABS 1 po q 6 hr prn pain HYDROCODONE- ACETAMINOPHEN 21629725713 No Longer Active Capo Poe MD Active FLOMAX 0.4 MG CAPS Take one by mouth daily TAMSULOSIN HCL 73459413618 No Longer Active Capo Poe MD Active TRIAMCINOLONE ACETONIDE 0.1 % CREA Apply to affected areas TID for up to 2 weeks TRIAMCINOLONE ACETONIDE 99905211326 Active Capo Poe MD Active NICOTINE 14 MG/24HR TRANS PT24 Apply/Change q 24hr NICOTINE 57647699876 No Longer Active Capo Poe MD Active TRAMADOL HCL 50 MG TABS 1-2 tablets every 6 hours as needed for pain TRAMADOL HCL 33302913306 No Longer Active Capo Poe MD Active SERTRALINE HCL 100 MG ORAL TABS take 1 tab daily SERTRALINE HCL 54129513711 No Longer Active Capo Poe MD Active LISINOPRIL-HYDROCHLOROTHIAZIDE 10-12.5 MG TABS 0.5 tab by mouth daily LISINOPRIL-HYDROCHLOROTHIAZIDE 03195591580 No Longer Active Capo Poe MD Active OMEPRAZOLE 20 MG CPDR 1 tablet by mouth daily OMEPRAZOLE 27768991361 Active Capo Poe MD Active WELLBUTRIN SR 150 MG ORAL [id number] 1 po BID BUPROPION HCL 67500164783 No Longer Active Capo Poe MD Active MIRALAX PACK 1 po qd PRN Constipation POLYETHYLENE GLYCOL 3350 99613285288 Active Capo Poe MD Active DULERA 100-5 MCG/ACT AERO 2 puffs BID MOMETASONE FURO- FORMOTEROL FUM 44736289286 Active Capo Poe MD Active ZOLOFT 100 MG TABS 1 po daily SERTRALINE HCL 50084094852 No Longer Active Zoran Arzola MD Active FERROUS SULFATE 325 (65 FE) MG TABS 1 tablet by mouth daily FERROUS SULFATE 07070804772 No Longer Active Capo Poe MD Active HYDROCODONE-ACETAMINOPHEN 7.5-300 MG TABS take one every six hours HYDROCODONE-ACETAMINOPHEN 06085495107 No Longer Active Capo Poe MD Active TRIAMCINOLONE ACETONIDE 0.1 % OINT Apply to affected areas TID for up to 2 weeks TRIAMCINOLONE ACETONIDE 98036727282 No Longer Active Joe Vargas RN Active FERROUS SULFATE 325 (65 FE) MG TABS Take one by mouth daily FERROUS SULFATE 19246534318 No Longer Active Capo Poe MD Active TRIAMCINOLONE ACETONIDE 0.1 % OINT Apply to affected areas TID for up to 2 weeks TRIAMCINOLONE ACETONIDE 96358501673 No Longer Active Capo Poe MD Active ADULT ASPIRIN LOW STRENGTH 81 MG TBDP qd ASPIRIN 91381151647 Active Zoran Arzola MD Active ALEVE 220 MG TAB prn NAPROXEN SODIUM 72101161940 Active Capo Poe MD Active MACROBID 100 MG CAP 1 cap by mouth twice daily NITROFURANTOIN MONOHYD MACRO 54150782904 No Longer Active Dona Becker Active AZITHROMYCIN 250 MG TABS 2 po qd x 1 day, then 1 po qd x 4 days AZITHROMYCIN 27664416599 No Longer Active Capo Poe MD Active FISH OIL 500 MG CAPS by mouth twice a day OMEGA-3 FATTY ACIDS 77463348177 Active Capo Poe MD Active FLAXSEED OIL 1000 MG CAPS Take two by mouth daily FLAXSEED (LINSEED) 70981496069 Active Zoran Arzola MD Active RED YEAST RICE 600 MG CAPS Take two by mouth daily RED YEAST RICE EXTRACT 04895659925 Active Zoran Arzola MD Active MULTIVITAMINS CAPS Take one by mouth daily MULTIPLE VITAMIN 60193873270 Active Zoran Arzola MD Active ICAPS MV TABS 2 po daily MULTIPLE VITAMINS-MINERALS 29727455117 Active Jam Arnold DO Active MACROBID 100 MG CAP 1 cap by mouth twice daily MACROBID 100 MG CAP 8226834 NITROFURANTOIN MONOHYD MACRO Inactive FERROUS SULFATE 325 (65 FE) MG TABS Take one by mouth daily FERROUS SULFATE 325 (65 FE) MG TABS 735313 FERROUS SULFATE Inactive HYDROCODONE-ACETAMINOPHEN 7.5-300 MG TABS take one every six hours HYDROCODONE-ACETAMINOPHEN 7.5-300 MG TABS 482193 HYDROCODONE- ACETAMINOPHEN Inactive FERROUS SULFATE 325 (65 FE) MG TABS 1 tablet by mouth daily FERROUS SULFATE 325 (65 FE) MG TABS 362948 FERROUS SULFATE Inactive ZOLOFT 100 MG TABS 1 po daily ZOLOFT 100 MG TABS 702389 SERTRALINE HCL Inactive SERTRALINE HCL 100 MG ORAL TABS take 1 tab daily SERTRALINE HCL 100 MG ORAL TABS 602103 SERTRALINE HCL Inactive TRAMADOL HCL 50 MG TABS 1-2 tablets every 6 hours as needed for pain TRAMADOL HCL 50 MG TABS 280998 TRAMADOL HCL Inactive NICOTINE 14 MG/24HR TRANS PT24 Apply/Change q 24hr NICOTINE 14 MG/24HR TRANS PT24 228760 NICOTINE Inactive FLOMAX 0.4 MG CAPS Take one by mouth daily FLOMAX 0.4 MG CAPS 978944 TAMSULOSIN HCL Inactive LORTAB 7.5-325 MG ORAL TABS 1 po q 6 hr prn pain LORTAB 7.5- 325 MG ORAL TABS 897803 HYDROCODONE-ACETAMINOPHEN Inactive VIIBRYD STARTER PACK 10 & 20 MG ORAL KIT 1 po qd as directed 2015 VIIBRYD STARTER PACK 10 & 20 MG ORAL KIT VILAZODONE HCL Inactive AZITHROMYCIN 250 MG TABS 2 po qd x 1 day, then 1 po qd x 4 days AZITHROMYCIN 250 MG TABS 2179654 AZITHROMYCIN Inactive TRIAMCINOLONE ACETONIDE 0.1 % OINT Apply to affected areas TID for up to 2 weeks TRIAMCINOLONE ACETONIDE 0.1 % OINT 6256384 TRIAMCINOLONE ACETONIDE Inactive TRIAMCINOLONE ACETONIDE 0.1 % OINT Apply to affected areas TID for up to 2 weeks TRIAMCINOLONE ACETONIDE 0.1 % OINT 7051194 TRIAMCINOLONE ACETONIDE Inactive Advance Directives Directive Description [...] Lab Report: Basic Metabolic Panel - Chemistry chloride, serum 101 mmol/L 98-107 potassium, serum 4.7 mmol/L 3.5-5.2 sodium, serum 139 mmol/L 717-315 2792/07/30 carbon dioxide, venous blood 34.8 mmol/L 21.0-32.0 blood glucose 124 mg/dL 65-110 creatinine, serum 1.40 mg/dL 0.60-1.30 urea nitrogen, blood 18 mg/dL 7-18 calcium, serum 8.9 mg/dL 8.5-10.1 Lab Report: Comp. Metabolic Panel, Lipid Panel, HGBA1C, CBC, MICROALB/CR ... - Chemistry albumin/creatinine ratio, urine 30 - 300 mg/g mg/g{creat} 0-29 blood glucose 129 mg/dL 65-110 sodium, serum 138 mmol/L 106-894 0666/03/18 carbon dioxide, venous blood 25.5 mmol/L 21.0-32.0 potassium, serum 4.6 mmol/L 3.5-5.2 chloride, serum 101 mmol/L 98-107 urea nitrogen, blood 20 mg/dL 7-18 creatinine, serum 1.87 mg/dL 0.55-1.30 alanine aminotransferase (SGPT), serum 26 U/L 12-78 aspartate aminotransferase (SGOT), serum 20 U/L 15-37 calcium, serum 8.8 mg/dL 8.5-10.1 bilirubin, serum, total 0.40 mg/dL 0.00-1.00 cholesterol, serum 251 mg/dL 966-371 2957/03/18 triglyceride, serum, fasting 135 mg/dL 30-200 HDL [...] 0.00-4.00 Encounters Code Encounter Date Provider Facility CPT-72158 Level 4 Est. Patient 13:44:30 CDT Capo Poe MD [facility] CPT-51631 Level 3 Est. Patient 14:59:32 SODIUM CHLORITE OPERATOR Capo Poe MD [facility] CPT-27446 Level 4 Est. Patient 10:46:15 SODIUM CHLORITE OPERATOR Capo Poe MD [facility] CPT-59560 Level 3 Est. Patient 11:00:53 CDT Capo Poe MD [facility] CPT-06860 Level 3 Est. Patient 09:39:35 CDT Capo Poe MD [facility] CPT-28451 Level 3 Est. Patient 09:27:01 CDT Capo Poe MD [facility] CPT-81836 Level 3 Est. Patient 18:37:08 CDT Zoran Arzola MD [facility] CPT-01409 Level 3 Est. Patient 15:00:28 CDT Capo Poe MD [facility] CPT-31950 Level 3 Est. Patient 08:20:19 CDT Zoran Arzola MD [facility] CPT-99433 Level 3 Est. Patient 09:22:21 CDT Capo Poe MD [facility] CPT-01542 Level 4 Est. Patient 10:21:30 SODIUM CHLORITE OPERATOR Capo Poe MD [facility] CPT-30859 Level 3 Est. Patient 17:08:51 SODIUM CHLORITE OPERATOR Zoran Arzola MD [facility] CPT-88462 Level 4 Est. Patient 09:44:42 CDT Capo Poe MD [facility] CPT-66971 Level 4 Est. Patient 10:39:29 CDT Capo Poe MD [facility] CPT-92090 Level 3 Est. Patient 17:45:23 CDT Zoran Arzola MD [facility] CPT-24222 Level 4 Est. Patient 08:50:44 CDT Capo Poe MD [facility] CPT-01414 Level 3 Est. Patient 10:39:51 SODIUM CHLORITE OPERATOR Capo Poe MD [facility] CPT-46317 Level 4 Est. Patient 09:44:24 SODIUM CHLORITE OPERATOR Capo Poe MD [facility] CPT-82374 Level 3 Est. Patient 14:48:42 SODIUM CHLORITE OPERATOR Zoran Arzola MD [facility] CPT-37824 Level 4 Est. Patient 10:24:02 CDT Capo Poe MD [facility] CPT-76480 Level 3 Est. Patient 15:42:00 CDT Maya DUKES [facility] CPT-81151 Level 4 Est. Patient 13:34:15 CDT Capo Poe MD [facility] CPT-58285 Level 3 Est. Patient 15:32:10 SODIUM CHLORITE OPERATOR Zoran Arzola MD [facility] CPT-30941 Level 3 New Patient 17:17:19 SODIUM CHLORITE OPERATOR Zoran Arzola MD [facility] CPT-80587 Level 4 Est. Patient 10:25:01 SODIUM CHLORITE OPERATOR Capo Poe MD [facility] CPT-85648 Level 3 Est. Patient 10:10:42 CDT Zoran Arzola MD [facility] CPT-23892 Level 3 Est. Patient 22:30:02 CDT Zoran Arzola MD [facility] CPT-37450 Level 4 Est. Patient 09:54:20 CDT Capo Poe MD [facility] CPT-39710 Level 3 Est. Patient 10:48:30 CDT Capo Poe MD [facility] CPT-37652 Level 3 Est. Patient 11:24:45 CDT Capo Poe MD [facility] CPT-42822 Level 3 Est. Patient 15:23:48 SODIUM CHLORITE OPERATOR Capo Poe MD [facility] CPT-71862 Level 3 Est. Patient 15:10:03 SODIUM CHLORITE OPERATOR Capo Poe MD [facility] CPT-79791 Level 3 Est. Patient 16:18:40 CDT Zoran Arzola MD [facility] Procedures Code Procedure Name Date Entry Date Standard Description CPT-G0438 Initial Annual Wellness Exam 10:24:35 CDT CPT-05516 Venipuncture Draw Fee 09:46:29 CDT CPT-04058 Venipuncture Draw Fee 14:30:06 CDT CPT-35326 Venipuncture Draw Fee 10:58:22 CDT CPT-53539 Abd single AP View 08:32:00 CDT CPT-93162 Postop F/U Visit 21:13:08 CDT CPT-29115 Abd single AP View 15:50:24 CDT CPT-08774 Cystoscopy W/rem FB 15:21:28 CDT CPT-20238 Abd single AP View 14:06:45 CDT CPT-02468 Postop F/U Visit 09:48:32 CDT CPT-39019 Abd single AP View 13:58:26 CDT CPT-94616 Hip comp min 2V 10:27:18 SODIUM CHLORITE OPERATOR CPT-71542 Urine Dip (Floor Use Only) 13:41:01 SODIUM CHLORITE OPERATOR CPT-19403 Postop F/U Visit 11:17:48 CDT CPT-LR Lesion Removal 11:50:22 CDT CPT-OV Office Visit 11:50:22 CDT CPT-95927 Pneumovax 23 10:55:48 CDT CPT-38516 Administration single or combination vaccine inc oral 10 :55:48 CDT CPT-Cryo Cryotherapy 11:18:11 CDT CPT-OV Office Visit 11:18:11 CDT CPT-48188 LS spine AP and Lat 09:05:22 CDT CPT-46559 Bladder Scan 15:42:00 CDT CPT-70906 Cystoscopy 15:42:00 CDT CPT-OV Office Visit 16:37:19 SODIUM CHLORITE OPERATOR CPT-46338 Bladder Scan 15:32:10 SODIUM CHLORITE OPERATOR CPT-71879 Cystoscopy 15:32:10 SODIUM CHLORITE OPERATOR CPT-21239 Abd single AP View 14:05:59 SODIUM CHLORITE OPERATOR CPT-33426 Pill cam small bowel 09:48:39 SODIUM CHLORITE OPERATOR CPT-94157 Urine Dip (Floor Use Only) 17:17:19 SODIUM CHLORITE OPERATOR CPT-12735 Bladder Scan 17:17:19 SODIUM CHLORITE OPERATOR CPT-OV Office Visit 11:50:26 SODIUM CHLORITE OPERATOR CPT-21373 Bladder Scan 10:10:42 CDT CPT-66798 Venipuncture Draw Fee 09:14:04 CDT CPT-07475 Chest 2V Frontal and Lat 10:10:49 CDT CPT-87489 LS spine comp w obliq 11:50:11 CDT CPT-44805 Venipuncture Draw Fee 08:52:57 SODIUM CHLORITE OPERATOR CPT-44717 Cystoscopy W/rem FB 18:37:28 CDT CPT-64561 Abd single AP View 16:18:40 CDT CPT-73418 Abd compl w upright 17:30:59 CDT
--- OUTSIDE RECORDS SUMMARY | 2016-11-22 16:22 | XMS REPORT | Clinical Summary ---
Author Author Admin, MARGE Organization [facility] Address Unknown Phone Unavailable Allergies, Adverse Reactions, Alerts Allergy Name Reaction Description Start Date Severity Status Provider MACROBID Rash, itching Critical Active Dona Becker MORPHINE Critical Active Zoran Arzola MD STATINS Critical Active Jam Arnold DO Conditions or Problems Problem Name Problem Code Onset Date Status Entry Date Provider Comment Standard Description Annotate NAUSEA AND VOMITING 787.01 Resolved Caop Poe MD Nausea with vomiting DEPRESSION 311 [...] 2 puffs BID MOMETASONE FURO- FORMOTEROL FUM 00210213547 Active Capo Poe MD Active SERTRALINE HCL 100 MG ORAL TABS take 1 tab daily SERTRALINE HCL 33286664508 Active Capo Poe MD Active ZOLOFT 100 MG TABS 1 po daily SERTRALINE HCL 34798256848 No Longer Active Zoran Arzola MD Active FERROUS SULFATE 325 (65 FE) MG TABS 1 tablet by mouth daily FERROUS SULFATE 41085817462 No Longer Active Capo Poe MD Active TRAMADOL HCL 50 MG TABS 1-2 tablets every 6 hours as needed for pain TRAMADOL HCL 35944477184 Active Capo Poe MD Active HYDROCODONE-ACETAMINOPHEN 7.5-300 MG TABS take one every six hours HYDROCODONE-ACETAMINOPHEN 04716961726 No Longer Active Capo Poe MD Active TRIAMCINOLONE ACETONIDE 0.1 % OINT Apply to affected areas TID for up to 2 weeks TRIAMCINOLONE ACETONIDE 87256229808 No Longer Active Joe Vargas RN Active FERROUS SULFATE 325 (65 FE) MG TABS Take one by mouth daily FERROUS SULFATE 08995474698 No Longer Active Capo Poe MD Active TRIAMCINOLONE ACETONIDE 0.1 % OINT Apply to affected areas TID for up to 2 weeks TRIAMCINOLONE ACETONIDE 88978142426 No Longer Active Capo Poe MD Active ADULT ASPIRIN LOW STRENGTH 81 MG TBDP qd ASPIRIN 86688817211 Active Zoran Arzola MD Active ALEVE 220 MG TAB prn NAPROXEN SODIUM 63284629242 Active Capo Poe MD Active LISINOPRIL-HYDROCHLOROTHIAZIDE 10-12.5 MG TABS 1 tab by mouth daily LISINOPRIL-HYDROCHLOROTHIAZIDE 52530497478 Active Capo Poe MD Active MACROBID 100 MG CAP 1 cap by mouth twice daily NITROFURANTOIN MONOHYD MACRO 91488728755 No Longer Active Dona Becker Active AZITHROMYCIN 250 MG TABS 2 po qd x 1 day, then 1 po qd x 4 days AZITHROMYCIN 22735622207 No Longer Active Capo Poe MD Active FISH OIL 500 MG CAPS by mouth twice a day OMEGA-3 FATTY ACIDS 12971419773 Active Capo Poe MD Active FLAXSEED OIL 1000 MG CAPS Take two by mouth daily FLAXSEED (LINSEED) 66722411429 Active Zoran Arzola MD Active RED YEAST RICE 600 MG CAPS Take two by mouth daily RED YEAST RICE EXTRACT 92525303579 Active Zoran Arzola MD Active MULTIVITAMINS CAPS Take one by mouth daily MULTIPLE VITAMIN 24788902391 Active Zoran Arzola MD Active ICAPS MV TABS 2 po daily MULTIPLE VITAMINS-MINERALS 78174419989 Active Jam Arnold DO Active MACROBID 100 MG CAP 1 cap by mouth twice daily MACROBID 100 MG CAP 825401 NITROFURANTOIN MONOHYD MACRO Inactive FERROUS SULFATE 325 (65 FE) MG TABS Take one by mouth daily FERROUS SULFATE 325 (65 FE) MG TABS 738227 FERROUS SULFATE Inactive HYDROCODONE-ACETAMINOPHEN 7.5-300 MG TABS take one every six hours HYDROCODONE-ACETAMINOPHEN 7.5-300 MG TABS 605255 HYDROCODONE- ACETAMINOPHEN Inactive FERROUS SULFATE 325 (65 FE) MG TABS 1 tablet by mouth daily FERROUS SULFATE 325 (65 FE) MG TABS 349268 FERROUS SULFATE Inactive ZOLOFT 100 MG TABS 1 po daily ZOLOFT 100 MG TABS 303658 SERTRALINE HCL Inactive AZITHROMYCIN 250 MG TABS 2 po qd x 1 day, then 1 po qd x 4 days AZITHROMYCIN 250 MG TABS 9016638 AZITHROMYCIN Inactive TRIAMCINOLONE ACETONIDE 0.1 % OINT Apply to affected areas TID for up to 2 weeks TRIAMCINOLONE ACETONIDE 0.1 % OINT 4969200 TRIAMCINOLONE ACETONIDE Inactive TRIAMCINOLONE ACETONIDE 0.1 % OINT Apply to affected areas TID for up to 2 weeks TRIAMCINOLONE ACETONIDE 0.1 % OINT 6452506 TRIAMCINOLONE ACETONIDE Inactive Advance Directives Directive Description [...] CBC - Chemistry cholesterol, serum 207 mg/dL 254-596 0152/02/11 triglyceride, serum, fasting 74 mg/dL 30-200 HDL cholesterol, serum 62 mg/dL 32-96 LDL cholesterol, serum 130 mg/dL 0-130 sodium, serum 144 mmol/L 881-017 1299/02/11 potassium, serum 5.0 mmol/L 3.5-5.2 chloride, serum [...] negative Encounters Code Encounter Date Provider Facility CPT-86559 Level 3 Est. Patient 08:20:19 CDT Zoran Arzola MD [facility] CPT-71939 Level 3 Est. Patient 09:22:21 CDT Capo Poe MD [facility] CPT-03157 Level 4 Est. Patient 10:21:30 PHOTOVOLTAIC PANEL INSTALLER Capo Poe MD [facility] CPT-45974 Level 3 Est. Patient 17:08:51 PHOTOVOLTAIC PANEL INSTALLER Zoran Arzola MD [facility] CPT-54492 Level 4 Est. Patient 09:44:42 CDT Capo Poe MD [facility] CPT-05109 Level 4 Est. Patient 10:39:29 CDT Capo Poe MD [facility] CPT-02565 Level 3 Est. Patient 17:45:23 CDT Zoran Arzola MD [facility] CPT-13976 Level 4 Est. Patient 08:50:44 CDT Capo Poe MD [facility] CPT-67788 Level 3 Est. Patient 10:39:51 PHOTOVOLTAIC PANEL INSTALLER Capo Poe MD [facility] CPT-05674 Level 4 Est. Patient 09:44:24 PHOTOVOLTAIC PANEL INSTALLER Capo Poe MD [facility] CPT-73792 Level 3 Est. Patient 14:48:42 PHOTOVOLTAIC PANEL INSTALLER Zoran Arzola MD [facility] CPT-45774 Level 4 Est. Patient 10:24:02 CDT Capo Poe MD [facility] CPT-10525 Level 3 Est. Patient 15:42:00 CDT Maya WRIGHTP [facility] CPT-36631 Level 4 Est. Patient 13:34:15 CDT Capo Poe MD [facility] CPT-86288 Level 3 Est. Patient 15:32:10 PHOTOVOLTAIC PANEL INSTALLER Zoran Arzola MD [facility] CPT-49764 Level 3 New Patient 17:17:19 PHOTOVOLTAIC PANEL INSTALLER Zoran Arzola MD [facility] CPT-08109 Level 4 Est. Patient 10:25:01 PHOTOVOLTAIC PANEL INSTALLER Capo Poe MD [facility] CPT-77651 Level 3 Est. Patient 10:10:42 CDT Zoran Arzola MD [facility] CPT-72263 Level 3 Est. Patient 22:30:02 CDT Zoran Arzola MD [facility] CPT-04355 Level 4 Est. Patient 09:54:20 CDT Capo Poe MD [facility] CPT-68140 Level 3 Est. Patient 10:48:30 CDT Capo Poe MD [facility] CPT-91578 Level 3 Est. Patient 11:24:45 CDT Capo Poe MD [facility] CPT-45695 Level 3 Est. Patient 15:23:48 PHOTOVOLTAIC PANEL INSTALLER Capo Poe MD [facility] CPT-34979 Level 3 Est. Patient 15:10:03 PHOTOVOLTAIC PANEL INSTALLER Capo Poe MD [facility] CPT-28884 Level 3 Est. Patient 16:18:40 CDT Zoran Arzola MD [facility] Procedures Code Procedure Name Date Entry Date Standard Description CPT-03906 Postop F/U Visit 21:13:08 CDT CPT-58709 Abd single AP View 15:50:24 CDT CPT-12952 Cystoscopy W/rem FB 15:21:28 CDT CPT-64841 Abd single AP View 14:06:45 CDT CPT-08638 Postop F/U Visit 09:48:32 CDT CPT-89661 Abd single AP View 13:58:26 CDT CPT-79594 Hip comp min 2V 10:27:18 PHOTOVOLTAIC PANEL INSTALLER CPT-25336 Urine Dip (Floor Use Only) 13:41:01 PHOTOVOLTAIC PANEL INSTALLER CPT-51441 Postop F/U Visit 11:17:48 CDT CPT-LR Lesion Removal 11:50:22 CDT CPT-OV Office Visit 11:50:22 CDT CPT-62842 Pneumovax 23 10:55:48 CDT CPT-60745 Administration single or combination vaccine inc oral 10 :55:48 CDT CPT-Cryo Cryotherapy 11:18:11 CDT CPT-OV Office Visit 11:18:11 CDT CPT-12680 LS spine AP and Lat 09:05:22 CDT CPT-77825 Bladder Scan 15:42:00 CDT CPT-64556 Cystoscopy 15:42:00 CDT CPT-OV Office Visit 16:37:19 PHOTOVOLTAIC PANEL INSTALLER CPT-07337 Bladder Scan 15:32:10 PHOTOVOLTAIC PANEL INSTALLER CPT-25226 Cystoscopy 15:32:10 PHOTOVOLTAIC PANEL INSTALLER CPT-69602 Abd single AP View 14:05:59 PHOTOVOLTAIC PANEL INSTALLER CPT-93009 Pill cam small bowel 09:48:39 PHOTOVOLTAIC PANEL INSTALLER CPT-38447 Urine Dip (Floor Use Only) 17:17:19 PHOTOVOLTAIC PANEL INSTALLER CPT-27877 Bladder Scan 17:17:19 PHOTOVOLTAIC PANEL INSTALLER CPT-OV Office Visit 11:50:26 PHOTOVOLTAIC PANEL INSTALLER CPT-79635 Bladder Scan 10:10:42 CDT CPT-11114 Venipuncture Draw Fee 09:14:04 CDT CPT-44584 Chest 2V Frontal and Lat 10:10:49 CDT CPT-55514 LS spine comp w obliq 11:50:11 CDT CPT-14507 Venipuncture Draw Fee 08:52:57 PHOTOVOLTAIC PANEL INSTALLER CPT-69726 Cystoscopy W/rem FB 18:37:28 CDT CPT-63246 Abd single AP View 16:18:40 CDT CPT-25192 Abd compl w upright 17:30:59 CDT
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
--- OUTSIDE RECORDS SUMMARY | 2016-11-22 16:25 | XMS REPORT | Clinical Summary ---
Author Author Admin, [employer] Organization [employer] Address Unknown Phone Unavailable Allergies, Adverse Reactions, [...] in urethra Chest pain 786.50 Resolved Capo Peo MD Unspecified chest pain Prostate cancer screening [...] collapse Iron deficiency 280.9 Active Jasmin Dixon [facility] Iron deficiency anemia, unspecified NAUSEA AND [...] Clyde Poe MD Near syncope ICD-780.2 Inactive aCpo Poe MD Skin lesion ICD-709.9 Inactive Capo [...] 1 tab po twice daily FERROUS SULFATE 26918467782 Active Jasmin TEIXEIRA Active D ORAL TABS 2000 iu weekly D ORAL TABS Active Capo Poe MD Active CITALOPRAM HYDROBROMIDE 20 MG TABS 1 tablet by mouth daily CITALOPRAM HYDROBROMIDE 91251969147 Active Capo Poe MD Active CLARITIN 5 MG ORAL CHEW 1 tab po q day LORATADINE 00305009219 Active Felisa TEIXEIRA Active VIIBRYD STARTER PACK 10 & 20 MG ORAL KIT 1 po qd as directed 2015 VILAZODONE HCL 34547998953 No Longer Active Felisa TEIXEIRA Active HYDROXYZINE HCL 25 MG TAB 1 po qHS PRN Insomnia HYDROXYZINE HCL 50425488926 Active Capo Poe MD Active LISINOPRIL 10 MG TABS 1 tablet by mouth daily LISINOPRIL 64682195022 Active Capo Poe MD Active LORTAB 7.5-325 MG ORAL TABS 1 po q 6 hr prn pain HYDROCODONE- ACETAMINOPHEN 67495109015 No Longer Active Capo Poe MD Active FLOMAX 0.4 MG CAPS Take one by mouth daily TAMSULOSIN HCL 46367806057 No Longer Active Capo Poe MD Active TRIAMCINOLONE ACETONIDE 0.1 % CREA Apply to affected areas TID for up to 2 weeks TRIAMCINOLONE ACETONIDE 17457664138 Active Capo Poe MD Active NICOTINE 14 MG/24HR TRANS PT24 Apply/Change q 24hr NICOTINE 88704062384 No Longer Active Capo Poe MD Active TRAMADOL HCL 50 MG TABS 1-2 tablets every 6 hours as needed for pain TRAMADOL HCL 26379617277 No Longer Active Capo Poe MD Active SERTRALINE HCL 100 MG ORAL TABS take 1 tab daily SERTRALINE HCL 99865630343 No Longer Active Capo Poe MD Active LISINOPRIL-HYDROCHLOROTHIAZIDE 10-12.5 MG TABS 0.5 tab by mouth daily LISINOPRIL-HYDROCHLOROTHIAZIDE 31229126573 No Longer Active Capo Poe MD Active OMEPRAZOLE 20 MG CPDR 1 tablet by mouth daily OMEPRAZOLE 90041974603 Active Capo Poe MD Active WELLBUTRIN SR 150 MG ORAL [id number]-BUE 1 po BID BUPROPION HCL 66162032317 No Longer Active Capo Poe MD Active MIRALAX PACK 1 po qd PRN Constipation POLYETHYLENE GLYCOL 3350 09292055758 Active Capo Poe MD Active DULERA 100-5 MCG/ACT AERO 2 puffs BID MOMETASONE FURO- FORMOTEROL FUM 57588165599 Active Capo Poe MD Active ZOLOFT 100 MG TABS 1 po daily SERTRALINE HCL 32098437824 No Longer Active Zoran Arzola MD Active FERROUS SULFATE 325 (65 FE) MG TABS 1 tablet by mouth daily FERROUS SULFATE 29456483601 No Longer Active Capo Poe MD Active HYDROCODONE-ACETAMINOPHEN 7.5-300 MG TABS take one every six hours HYDROCODONE-ACETAMINOPHEN 13352625501 No Longer Active Capo Poe MD Active TRIAMCINOLONE ACETONIDE 0.1 % OINT Apply to affected areas TID for up to 2 weeks TRIAMCINOLONE ACETONIDE 43379267443 No Longer Active Joe Vargas RN Active FERROUS SULFATE 325 (65 FE) MG TABS Take one by mouth daily FERROUS SULFATE 87901029398 No Longer Active Capo Poe MD Active TRIAMCINOLONE ACETONIDE 0.1 % OINT Apply to affected areas TID for up to 2 weeks TRIAMCINOLONE ACETONIDE 67892170679 No Longer Active Capo Poe MD Active ADULT ASPIRIN LOW STRENGTH 81 MG TBDP qd ASPIRIN 31079484809 Active Zoran Arzola MD Active ALEVE 220 MG TAB prn NAPROXEN SODIUM 30869492426 Active Capo Poe MD Active MACROBID 100 MG CAP 1 cap by mouth twice daily NITROFURANTOIN MONOHYD MACRO 67734564409 No Longer Active Dona Becker Active AZITHROMYCIN 250 MG TABS 2 po qd x 1 day, then 1 po qd x 4 days AZITHROMYCIN 62502565209 No Longer Active Capo Poe MD Active FISH OIL 500 MG CAPS by mouth twice a day OMEGA-3 FATTY ACIDS 67254972646 Active Capo Poe MD Active FLAXSEED OIL 1000 MG CAPS Take two by mouth daily FLAXSEED (LINSEED) 16892405129 Active Zoran Arozla MD Active RED YEAST RICE 600 MG CAPS Take two by mouth daily RED YEAST RICE EXTRACT 02836922427 Active Zoran Arzola MD Active MULTIVITAMINS CAPS Take one by mouth daily MULTIPLE VITAMIN 88811895827 Active Zoran Arzola MD Active ICAPS MV TABS 2 po daily MULTIPLE VITAMINS-MINERALS 06795760637 Active Jam Arnold DO Active MACROBID 100 MG CAP 1 cap by mouth twice daily MACROBID 100 MG CAP 0580337 NITROFURANTOIN MONOHYD MACRO Inactive FERROUS SULFATE 325 (65 FE) MG TABS Take one by mouth daily FERROUS SULFATE 325 (65 FE) MG TABS 215153 FERROUS SULFATE Inactive HYDROCODONE-ACETAMINOPHEN 7.5-300 MG TABS take one every six hours HYDROCODONE-ACETAMINOPHEN 7.5-300 MG TABS 274833 HYDROCODONE- ACETAMINOPHEN Inactive FERROUS SULFATE 325 (65 FE) MG TABS 1 tablet by mouth daily FERROUS SULFATE 325 (65 FE) MG TABS 773540 FERROUS SULFATE Inactive ZOLOFT 100 MG TABS 1 po daily ZOLOFT 100 MG TABS 757996 SERTRALINE HCL Inactive SERTRALINE HCL 100 MG ORAL TABS take 1 tab daily SERTRALINE HCL 100 MG ORAL TABS 625586 SERTRALINE HCL Inactive TRAMADOL HCL 50 MG TABS 1-2 tablets every 6 hours as needed for pain TRAMADOL HCL 50 MG TABS 361577 TRAMADOL HCL Inactive NICOTINE 14 MG/24HR TRANS PT24 Apply/Change q 24hr NICOTINE 14 MG/24HR TRANS PT24 402597 NICOTINE Inactive FLOMAX 0.4 MG CAPS Take one by mouth daily FLOMAX 0.4 MG CAPS 479039 TAMSULOSIN HCL Inactive LORTAB 7.5-325 MG ORAL TABS 1 po q 6 hr prn pain LORTAB 7.5- 325 MG ORAL TABS 697009 HYDROCODONE-ACETAMINOPHEN Inactive VIIBRYD STARTER PACK 10 & 20 MG ORAL KIT 1 po qd as directed 2015 VIIBRYD STARTER PACK 10 & 20 MG ORAL KIT VILAZODONE HCL Inactive AZITHROMYCIN 250 MG TABS 2 po qd x 1 day, then 1 po qd x 4 days AZITHROMYCIN 250 MG TABS 0934189 AZITHROMYCIN Inactive TRIAMCINOLONE ACETONIDE 0.1 % OINT Apply to affected areas TID for up to 2 weeks TRIAMCINOLONE ACETONIDE 0.1 % OINT 0604230 TRIAMCINOLONE ACETONIDE Inactive TRIAMCINOLONE ACETONIDE 0.1 % OINT Apply to affected areas TID for up to 2 weeks TRIAMCINOLONE ACETONIDE 0.1 % OINT 0999057 TRIAMCINOLONE ACETONIDE Inactive Advance Directives Directive Description [...] ... - Chemistry sodium, serum 141 mmol/L 801-114 9031/01/27 carbon dioxide, venous blood 29.7 mmol/L 21.0-32.0 [...] ... - Chemistry sodium, serum 138 mmol/L 676-333 6484/03/18 carbon dioxide, venous blood 25.5 mmol/L 21.0-32.0 potassium, serum 4.6 mmol/L 3.5-5.2 chloride, serum 101 mmol/L 98-107 blood glucose 129 mg/dL 65-110 urea nitrogen, blood 20 mg/dL 7-18 creatinine, serum 1.87 mg/dL 0.55-1.30 alanine aminotransferase (SGPT), serum 26 U/L 12-78 aspartate aminotransferase (SGOT), serum 20 U/L 15-37 calcium, serum 8.8 mg/dL 8.5-10.1 bilirubin, serum, total 0.40 mg/dL 0.00-1.00 cholesterol, serum 251 mg/dL 142-692 2595/03/18 triglyceride, serum, fasting 135 mg/dL 30-200 HDL [...] 0-19 Encounters Code Encounter Date Provider Facility CPT-46602 Level 4 Est. Patient 09:26:11 [employer] Capo Poe MD [facility] CPT-93225 Level 4 Est. Patient 08:53:08 CDT Capo Poe MD [facility] CPT-64629 Level 4 Est. Patient 10:22:57 CDT Capo Poe MD [facility] CPT-04424 Level 4 Est. Patient 13:44:30 CDT Capo Poe MD [facility] CPT-70420 Level 3 Est. Patient 14:59:32 [employer] Capo Poe MD [facility] CPT-36670 Level 4 Est. Patient 10:46:15 [employer]IST Capo Poe MD [facility] CPT-05745 Level 3 Est. Patient 11:00:53 CDT Capo Poe MD [facility] CPT-90049 Level 3 Est. Patient 09:39:35 CDT Capo Poe MD [facility] CPT-64719 Level 3 Est. Patient 09:27:01 CDT Capo Poe MD [facility] CPT-55666 Level 3 Est. Patient 18:37:08 CDT Zoran Arzola MD [facility] CPT-46968 Level 3 Est. Patient 15:00:28 CDT Capo Poe MD [facility] CPT-42183 Level 3 Est. Patient 08:20:19 CDT Zoran Arzola MD [facility] CPT-43916 Level 3 Est. Patient 09:22:21 CDT Capo Poe MD [facility] CPT-01223 Level 4 Est. Patient 10:21:30 [employer] Capo Poe MD [facility] CPT-27024 Level 3 Est. Patient 17:08:51 [employer]IST Zoran Arzola MD [facility] CPT-69032 Level 4 Est. Patient 09:44:42 CDT Capo Poe MD [facility] CPT-26966 Level 4 Est. Patient 10:39:29 CDT Capo Poe MD [facility] CPT-53536 Level 3 Est. Patient 17:45:23 CDT Zoran Arzola MD [facility] CPT-81930 Level 4 Est. Patient 08:50:44 CDT Capo Poe MD [facility] CPT-25460 Level 3 Est. Patient 10:39:51 [employer]IST aCpo Poe MD [facility] CPT-74469 Level 4 Est. Patient 09:44:24 [employer]IST Capo Poe MD [facility] CPT-41974 Level 3 Est. Patient 14:48:42 [employer]IST Zoran Arzola MD [facility] CPT-86737 Level 4 Est. Patient 10:24:02 CDT Capo Poe MD [facility] CPT-19785 Level 3 Est. Patient 15:42:00 CDT Maya DUKES [facility] CPT-73724 Level 4 Est. Patient 13:34:15 CDT Capo Poe MD [facility] CPT-10704 Level 3 Est. Patient 15:32:10 [employer] Zoran Arzola MD [facility] CPT-17102 Level 3 New Patient 17:17:19 [employer]IST Zoran Arzola MD [facility] CPT-77856 Level 4 Est. Patient 10:25:01 [employer]IST Capo Poe MD [facility] CPT-02906 Level 3 Est. Patient 10:10:42 CDT Zoran Arzola MD [facility] CPT-12341 Level 3 Est. Patient 22:30:02 CDT Zoran Arzola MD [facility] CPT-50984 Level 4 Est. Patient 09:54:20 CDT Capo Poe MD [facility] CPT-91255 Level 3 Est. Patient 10:48:30 CDT Capo Poe MD [facility] CPT-86894 Level 3 Est. Patient 11:24:45 CDT Capo Poe MD [facility] CPT-13468 Level 3 Est. Patient 15:23:48 [employer]IST Cpao Poe MD [facility] CPT-73842 Level 3 Est. Patient 15:10:03 [employer]IST Capo Poe MD [facility] CPT-74051 Level 3 Est. Patient 16:18:40 CDT Zoran Arzola MD [facility] Procedures Code Procedure Name Date Entry Date Standard Description CPT-41433 Hemoccult IFOBT - LAB USE ONLY 14:11:43 [employer] CPT-31706 TPSA - LAB USE ONLY 10:37:52 [employer]IST CPT-49421 TSH - LAB USE ONLY 10:37:51 [employer]IST CPT-74546 CMP - LAB USE ONLY 10:37:51 [employer] CPT-05875 CBC with Diff - LAB USE ONLY 10:37:51 [employer] CPT-02969 Venipuncture Draw Fee 10:37:51 [employer] CPT-000 Give Pneumovax 10:39:30 CDT CPT-56435 Venipuncture Draw Fee 09:32:34 CDT CPT-G0438 Initial Annual Wellness Exam 10:24:35 CDT CPT-79644 Venipuncture Draw Fee 09:46:29 CDT CPT-44424 Venipuncture Draw Fee 14:30:06 CDT CPT-41607 Venipuncture Draw Fee 10:58:22 CDT CPT-87429 Abd single AP View 08:32:00 CDT CPT-36073 Postop F/U Visit 21:13:08 CDT CPT-18714 Abd single AP View 15:50:24 CDT CPT-30537 Cystoscopy W/rem FB 15:21:28 CDT CPT-35759 Abd single AP View 14:06:45 CDT CPT-51373 Postop F/U Visit 09:48:32 CDT CPT-09691 Abd single AP View 13:58:26 CDT CPT-11731 Hip comp min 2V 10:27:18 [employer] CPT-22164 Urine Dip (Floor Use Only) 13:41:01 [employer] CPT-73037 Postop F/U Visit 11:17:48 CDT CPT-LR Lesion Removal 11:50:22 CDT CPT-OV Office Visit 11:50:22 CDT CPT-18073 Pneumovax 23 10:55:48 CDT CPT-83591 Administration single or combination vaccine inc oral 10 :55:48 CDT CPT-Cryo Cryotherapy 11:18:11 CDT CPT-OV Office Visit 11:18:11 CDT CPT-55807 LS spine AP and Lat 09:05:22 CDT CPT-69500 Bladder Scan 15:42:00 CDT CPT-13015 Cystoscopy 15:42:00 CDT CPT-OV Office Visit 16:37:19 [employer] CPT-82115 Bladder Scan 15:32:10 [employer]IST CPT-84503 Cystoscopy 15:32:10 [employer]IST CPT-98933 Abd single AP View 14:05:59 [employer]IST CPT-03462 Pill cam small bowel 09:48:39 [employer]IST CPT-13459 Urine Dip (Floor Use Only) 17:17:19 [employer] CPT-70225 Bladder Scan 17:17:19 [employer]IST CPT-OV Office Visit 11:50:26 [employer] CPT-41202 Bladder Scan 10:10:42 CDT CPT-09559 Venipuncture Draw Fee 09:14:04 CDT CPT-00798 Chest 2V Frontal and Lat 10:10:49 CDT CPT-84727 LS spine comp w obliq 11:50:11 CDT CPT-29627 Venipuncture Draw Fee 08:52:57 [employer] CPT-96749 Cystoscopy W/rem FB 18:37:28 CDT CPT-57627 Abd single AP View 16:18:40 CDT CPT-28665 Abd compl w upright 17:30:59 CDT
--- OUTSIDE RECORDS SUMMARY | 2016-11-22 16:26 | XMS REPORT | Clinical Summary ---
Author Author Admin, [employer] Organization [employer] Address Unknown Phone Unavailable Allergies, Adverse Reactions, [...] specified site; multiple sites HYPERTENSION 401.1 Inactive Caop Poe MD Benign essential hypertension Hypertension 401.9 [...] collapse Iron deficiency 280.9 Active Jasmin Dixon [facility] Iron deficiency anemia, unspecified NAUSEA [...] 1 tab po twice daily FERROUS SULFATE 15154981064 Active Jasmin TEIXEIRA Active D ORAL TABS 2000 iu weekly D ORAL TABS Active Capo Poe MD Active CITALOPRAM HYDROBROMIDE 20 MG TABS 1 tablet by mouth daily CITALOPRAM HYDROBROMIDE 65727962782 Active Capo Poe MD Active CLARITIN 5 MG ORAL CHEW 1 tab po q day LORATADINE 29742869487 Active Felisa TEIXEIRA Active VIIBRYD STARTER PACK 10 & 20 MG ORAL KIT 1 po qd as directed 2015 VILAZODONE HCL 82662422401 No Longer Active Felisa TEIXEIRA Active HYDROXYZINE HCL 25 MG TAB 1 po qHS PRN Insomnia HYDROXYZINE HCL 79681899141 Active Capo Poe MD Active LISINOPRIL 10 MG TABS 1 tablet by mouth daily LISINOPRIL 27795247304 Active Capo Poe MD Active LORTAB 7.5-325 MG ORAL TABS 1 po q 6 hr prn pain HYDROCODONE- ACETAMINOPHEN 94110575255 No Longer Active Capo Poe MD Active FLOMAX 0.4 MG CAPS Take one by mouth daily TAMSULOSIN HCL 56502575622 No Longer Active Capo Poe MD Active TRIAMCINOLONE ACETONIDE 0.1 % CREA Apply to affected areas TID for up to 2 weeks TRIAMCINOLONE ACETONIDE 15409364577 Active Capo Poe MD Active NICOTINE 14 MG/24HR TRANS PT24 Apply/Change q 24hr NICOTINE 44987988835 No Longer Active Capo Poe MD Active TRAMADOL HCL 50 MG TABS 1-2 tablets every 6 hours as needed for pain TRAMADOL HCL 83411307748 No Longer Active Capo Poe MD Active SERTRALINE HCL 100 MG ORAL TABS take 1 tab daily SERTRALINE HCL 94574366489 No Longer Active Capo Poe MD Active LISINOPRIL-HYDROCHLOROTHIAZIDE 10-12.5 MG TABS 0.5 tab by mouth daily LISINOPRIL-HYDROCHLOROTHIAZIDE 51023461205 No Longer Active Capo Poe MD Active OMEPRAZOLE 20 MG CPDR 1 tablet by mouth daily OMEPRAZOLE 87629965609 Active Capo Poe MD Active WELLBUTRIN SR 150 MG ORAL IX41M-HWC 1 po BID BUPROPION HCL 88318905558 No Longer Active Capo Poe MD Active MIRALAX PACK 1 po qd PRN Constipation POLYETHYLENE GLYCOL 3350 82707524944 Active Capo Poe MD Active DULERA 100-5 MCG/ACT AERO 2 puffs BID MOMETASONE FURO- FORMOTEROL FUM 92049606745 Active Capo Poe MD Active ZOLOFT 100 MG TABS 1 po daily SERTRALINE HCL 70290118598 No Longer Active Zoran Arzola MD Active FERROUS SULFATE 325 (65 FE) MG TABS 1 tablet by mouth daily FERROUS SULFATE 90903763245 No Longer Active Capo Poe MD Active HYDROCODONE-ACETAMINOPHEN 7.5-300 MG TABS take one every six hours HYDROCODONE-ACETAMINOPHEN 33479326292 No Longer Active Capo Poe MD Active TRIAMCINOLONE ACETONIDE 0.1 % OINT Apply to affected areas TID for up to 2 weeks TRIAMCINOLONE ACETONIDE 76093828101 No Longer Active Joe Vargas RN Active FERROUS SULFATE 325 (65 FE) MG TABS Take one by mouth daily FERROUS SULFATE 29274484202 No Longer Active Capo Poe MD Active TRIAMCINOLONE ACETONIDE 0.1 % OINT Apply to affected areas TID for up to 2 weeks TRIAMCINOLONE ACETONIDE 95672635252 No Longer Active Capo Poe MD Active ADULT ASPIRIN LOW STRENGTH 81 MG TBDP qd ASPIRIN 11435280659 Active Zoran Arzola MD Active ALEVE 220 MG TAB prn NAPROXEN SODIUM 84296376392 Active Capo Poe MD Active MACROBID 100 MG CAP 1 cap by mouth twice daily NITROFURANTOIN MONOHYD MACRO 16612252535 No Longer Active Dona Becker Active AZITHROMYCIN 250 MG TABS 2 po qd x 1 day, then 1 po qd x 4 days AZITHROMYCIN 94143423145 No Longer Active Capo Poe MD Active FISH OIL 500 MG CAPS by mouth twice a day OMEGA-3 FATTY ACIDS 23588854014 Active Capo Poe MD Active FLAXSEED OIL 1000 MG CAPS Take two by mouth daily FLAXSEED (LINSEED) 68536410445 Active Zoran Arzola MD Active RED YEAST RICE 600 MG CAPS Take two by mouth daily RED YEAST RICE EXTRACT 91012048620 Active Zoran Arzola MD Active MULTIVITAMINS CAPS Take one by mouth daily MULTIPLE VITAMIN 28033453184 Active Zoran Arzola MD Active ICAPS MV TABS 2 po daily MULTIPLE VITAMINS-MINERALS 84685600301 Active Jam Arnold DO Active MACROBID 100 MG CAP 1 cap by mouth twice daily MACROBID 100 MG CAP 2515144 NITROFURANTOIN MONOHYD MACRO Inactive FERROUS SULFATE 325 (65 FE) MG TABS Take one by mouth daily FERROUS SULFATE 325 (65 FE) MG TABS 280239 FERROUS SULFATE Inactive HYDROCODONE-ACETAMINOPHEN 7.5-300 MG TABS take one every six hours HYDROCODONE-ACETAMINOPHEN 7.5-300 MG TABS 313354 HYDROCODONE- ACETAMINOPHEN Inactive FERROUS SULFATE 325 (65 FE) MG TABS 1 tablet by mouth daily FERROUS SULFATE 325 (65 FE) MG TABS 162638 FERROUS SULFATE Inactive ZOLOFT 100 MG TABS 1 po daily ZOLOFT 100 MG TABS 357928 SERTRALINE HCL Inactive SERTRALINE HCL 100 MG ORAL TABS take 1 tab daily SERTRALINE HCL 100 MG ORAL TABS 056055 SERTRALINE HCL Inactive TRAMADOL HCL 50 MG TABS 1-2 tablets every 6 hours as needed for pain TRAMADOL HCL 50 MG TABS 414384 TRAMADOL HCL Inactive NICOTINE 14 MG/24HR TRANS PT24 Apply/Change q 24hr NICOTINE 14 MG/24HR TRANS PT24 423834 NICOTINE Inactive FLOMAX 0.4 MG CAPS Take one by mouth daily FLOMAX 0.4 MG CAPS 397182 TAMSULOSIN HCL Inactive LORTAB 7.5-325 MG ORAL TABS 1 po q 6 hr prn pain LORTAB 7.5- 325 MG ORAL TABS 911274 HYDROCODONE-ACETAMINOPHEN Inactive VIIBRYD STARTER PACK 10 & 20 MG ORAL KIT 1 po qd as directed 2015 VIIBRYD STARTER PACK 10 & 20 MG ORAL KIT VILAZODONE HCL Inactive AZITHROMYCIN 250 MG TABS 2 po qd x 1 day, then 1 po qd x 4 days AZITHROMYCIN 250 MG TABS 2410388 AZITHROMYCIN Inactive TRIAMCINOLONE ACETONIDE 0.1 % OINT Apply to affected areas TID for up to 2 weeks TRIAMCINOLONE ACETONIDE 0.1 % OINT 5019073 TRIAMCINOLONE ACETONIDE Inactive TRIAMCINOLONE ACETONIDE 0.1 % OINT Apply to affected areas TID for up to 2 weeks TRIAMCINOLONE ACETONIDE 0.1 % OINT 7523048 TRIAMCINOLONE ACETONIDE Inactive Advance Directives Directive Description [...] ... - Chemistry sodium, serum 141 mmol/L 879-794 2960/01/27 carbon dioxide, venous blood 29.7 mmol/L 21.0-32.0 [...] % 11.0-15.0 platelet count 214 THOUSAND/UL 10*3/mm3 476-687 3154/03/31 mean platelet volume 8.4 fL 7.5-12.5 Encounters Code Encounter Date Provider Facility CPT-42869 Level 4 Est. Patient 09:26:11 [employer] [employer] Capo Poe MD [facility] CPT-21989 Level 4 Est. Patient 08:53:08 CDT Capo Poe MD [facility] CPT-94362 Level 4 Est. Patient 10:22:57 CDT Capo Poe MD [facility] CPT-14888 Level 4 Est. Patient 13:44:30 CDT Capo Poe MD [facility] CPT-48560 Level 3 Est. Patient 14:59:32 [employer] Capo Poe MD [facility] CPT-87626 Level 4 Est. Patient 10:46:15 [employer] Capo Poe MD [facility] CPT-52101 Level 3 Est. Patient 11:00:53 CDT Capo Poe MD [facility] CPT-00049 Level 3 Est. Patient 09:39:35 CDT Capo Poe MD [facility] CPT-59695 Level 3 Est. Patient 09:27:01 CDT Capo Poe MD [facility] CPT-55825 Level 3 Est. Patient 18:37:08 CDT Zoran Arzola MD [facility] CPT-77621 Level 3 Est. Patient 15:00:28 CDT Capo Poe MD [facility] CPT-93663 Level 3 Est. Patient 08:20:19 CDT Zoran Arzola MD [facility] CPT-17234 Level 3 Est. Patient 09:22:21 CDT Capo Poe MD [facility] CPT-28127 Level 4 Est. Patient 10:21:30 [employer] Capo Poe MD [facility] CPT-18341 Level 3 Est. Patient 17:08:51 [employer] Zoran Arzola MD [facility] CPT-88177 Level 4 Est. Patient 09:44:42 CDT Capo Poe MD [facility] CPT-09027 Level 4 Est. Patient 10:39:29 CDT Capo Poe MD [facility] CPT-95325 Level 3 Est. Patient 17:45:23 CDT Zoran Arzola MD [facility] CPT-21146 Level 4 Est. Patient 08:50:44 CDT Capo Poe MD [facility] CPT-68989 Level 3 Est. Patient 10:39:51 [employer] Capo Poe MD [facility] CPT-75568 Level 4 Est. Patient 09:44:24 [employer] Capo Poe MD [facility] CPT-33541 Level 3 Est. Patient 14:48:42 [employer] Zoran Arzola MD [facility] CPT-48134 Level 4 Est. Patient 10:24:02 CDT Capo Poe MD [facility] CPT-70009 Level 3 Est. Patient 15:42:00 CDT Maya DUKES [facility] CPT-29628 Level 4 Est. Patient 13:34:15 CDT Capo Poe MD [facility] CPT-96035 Level 3 Est. Patient 15:32:10 [employer] Zoran Arzola MD [facility] CPT-70402 Level 3 New Patient 17:17:19 [employer] Zoran Arzola MD [facility] CPT-62812 Level 4 Est. Patient 10:25:01 [employer] Capo Poe MD [facility] CPT-63748 Level 3 Est. Patient 10:10:42 CDT Zoran Arzola MD [facility] CPT-41843 Level 3 Est. Patient 22:30:02 CDT Zoran Arzola MD [facility] CPT-39224 Level 4 Est. Patient 09:54:20 CDT Capo Poe MD [facility] CPT-32608 Level 3 Est. Patient 10:48:30 CDT Capo Poe MD [facility] CPT-29886 Level 3 Est. Patient 11:24:45 CDT Capo Poe MD [facility] CPT-45794 Level 3 Est. Patient 15:23:48 [employer] Capo Poe MD [facility] CPT-81713 Level 3 Est. Patient 15:10:03 [employer] Capo Poe MD [facility] CPT-33214 Level 3 Est. Patient 16:18:40 CDT Zoran Arzola MD [facility] Procedures Code Procedure Name Date Entry Date Standard Description CPT-74102 Hemoccult IFOBT - LAB USE ONLY 14:11:43 [employer] CPT-68712 TPSA - LAB USE ONLY 10:37:52 [employer] CPT-37577 TSH - LAB USE ONLY 10:37:51 [employer] CPT-44074 CMP - LAB USE ONLY 10:37:51 [employer] CPT-82792 CBC with Diff - LAB USE ONLY 10:37:51 [employer] CPT-54558 Venipuncture Draw Fee 10:37:51 [employer] CPT-000 Give Pneumovax 10:39:30 CDT CPT-81566 Venipuncture Draw Fee 09:32:34 CDT CPT-G0438 Initial Annual Wellness Exam 10:24:35 CDT CPT-77410 Venipuncture Draw Fee 09:46:29 CDT CPT-72262 Venipuncture Draw Fee 14:30:06 CDT CPT-37387 Venipuncture Draw Fee 10:58:22 CDT CPT-81970 Abd single AP View 08:32:00 CDT CPT-87073 Postop F/U Visit 21:13:08 CDT CPT-79068 Abd single AP View 15:50:24 CDT CPT-90984 Cystoscopy W/rem FB 15:21:28 CDT CPT-08785 Abd single AP View 14:06:45 CDT CPT-19466 Postop F/U Visit 09:48:32 CDT CPT-92472 Abd single AP View 13:58:26 CDT CPT-00875 Hip comp min 2V 10:27:18 [employer] CPT-47431 Urine Dip (Floor Use Only) 13:41:01 [employer] CPT-72862 Postop F/U Visit 11:17:48 CDT CPT-LR Lesion Removal 11:50:22 CDT CPT-OV Office Visit 11:50:22 CDT CPT-96256 Pneumovax 23 10:55:48 CDT CPT-80458 Administration single or combination vaccine inc oral 10 :55:48 CDT CPT-Cryo Cryotherapy 11:18:11 CDT CPT-OV Office Visit 11:18:11 CDT CPT-91229 LS spine AP and Lat 09:05:22 CDT CPT-12891 Bladder Scan 15:42:00 CDT CPT-14522 Cystoscopy 15:42:00 CDT CPT-OV Office Visit 16:37:19 [employer] CPT-46135 Bladder Scan 15:32:10 [employer] CPT-08966 Cystoscopy 15:32:10 [employer] CPT-41735 Abd single AP View 14:05:59 [employer] CPT-21288 Pill cam small bowel 09:48:39 [employer] CPT-34434 Urine Dip (Floor Use Only) 17:17:19 [employer] CPT-19964 Bladder Scan 17:17:19 [employer] CPT-OV Office Visit 11:50:26 [employer] CPT-98682 Bladder Scan 10:10:42 CDT CPT-03899 Venipuncture Draw Fee 09:14:04 CDT CPT-33712 Chest 2V Frontal and Lat 10:10:49 CDT CPT-19332 LS spine comp w obliq 11:50:11 CDT CPT-93748 Venipuncture Draw Fee 08:52:57 [employer] CPT-98656 Cystoscopy W/rem FB 18:37:28 CDT CPT-28122 Abd single AP View 16:18:40 CDT CPT-83385 Abd compl w upright 17:30:59 CDT
--- OUTSIDE RECORDS SUMMARY | 2016-11-22 16:28 | XMS REPORT | Clinical Summary ---
Author Author Admin, [facility] Organization [employer] Address Unknown Phone Unavailable Allergies, Adverse Reactions, Alerts Allergy Name Reaction Description Start Date Severity Status Provider MACROBID Rash, itching Critical Active Dona Becker MORPHINE Critical Active Zoran Arzola MD STATINS Critical Active Jma Arnold DO Conditions or Problems Problem Name [...] URINARY FREQUENCY ICD-788.41 Inactive Capo Poe MD RASH AND OTHER NONSPECIFIC SKIN ERUPTION ICD-782.1 Inactive Capo Poe MD U T I-RECURRENT ICD-599.0 Inactive Capo Poe MD Skin lesion ICD-709.9 Inactive Capo Poe MD Ecchymoses, spontaneous ICD-782.7 Inactive Capo Poe MD Lumbar radiculopathy ICD-724.4 Inactive 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 Inactive Capo Peo MD UTI ICD-599.0 Inactive Capo Poe MD Hematuria ICD-599.70 Inactive Capo Poe MD Sciatica, right ICD-724.3 Clyde Poe MD Renal Calculus ICD-592.9 Inactive Capo Poe MD Urethral calculus ICD-594.2 Inactive Capo Poe MD Chest pain ICD-786.50 Inactive Capo Peo MD Prostate cancer screening ICD-V76.44 Inactive Capo Poe MD Pruritic rash ICD-698.8 Inactive Capo Poe MD Elevated creatinine ICD-790.4 Inactive Capo Poe MD Near syncope ICD-780.2 Inactive Capo Poe MD Medication List Medication Instructions Start Date Stop Date Generic Name NDC Status Provider Patient Instruction CITALOPRAM HYDROBROMIDE 20 MG TABS 1 tablet by mouth daily CITALOPRAM HYDROBROMIDE 20227910037 Active Felisamario TEIXEIRA Active CLARITIN 5 MG ORAL CHEW 1 tab po q day LORATADINE 45873822854 Active Felisa Daphney RMMarva Active VIIBRYD STARTER PACK 10 & 20 MG ORAL KIT 1 po qd as directed 2015 VILAZODONE HCL 88671728207 No Longer Active Felisa TEIXEIRA Active HYDROXYZINE HCL 25 MG TAB 1 po qHS PRN Insomnia HYDROXYZINE HCL 54017856501 Active Capo Poe MD Active LISINOPRIL 10 MG TABS 1 tablet by mouth daily LISINOPRIL 00647373308 Active Capo Poe MD Active LORTAB 7.5-325 MG ORAL TABS 1 po q 6 hr prn pain HYDROCODONE- ACETAMINOPHEN 83009598694 No Longer Active Capo Poe MD Active FLOMAX 0.4 MG CAPS Take one by mouth daily TAMSULOSIN HCL 09519379629 No Longer Active Capo Poe MD Active TRIAMCINOLONE ACETONIDE 0.1 % CREA Apply to affected areas TID for up to 2 weeks TRIAMCINOLONE ACETONIDE 63585868546 Active Capo Poe MD Active NICOTINE 14 MG/24HR TRANS PT24 Apply/Change q 24hr NICOTINE 72333851215 No Longer Active Capo Poe MD Active TRAMADOL HCL 50 MG TABS 1-2 tablets every 6 hours as needed for pain TRAMADOL HCL 60918381723 No Longer Active Capo Poe MD Active SERTRALINE HCL 100 MG ORAL TABS take 1 tab daily SERTRALINE HCL 71267975039 No Longer Active Capo Poe MD Active LISINOPRIL-HYDROCHLOROTHIAZIDE 10-12.5 MG TABS 0.5 tab by mouth daily LISINOPRIL-HYDROCHLOROTHIAZIDE 25237714666 No Longer Active Capo Poe MD Active OMEPRAZOLE 20 MG CPDR 1 tablet by mouth daily OMEPRAZOLE 20380235254 Active Capo Poe MD Active WELLBUTRIN SR 150 MG ORAL [id number] 1 po BID BUPROPION HCL 66972904702 No Longer Active Capo Poe MD Active MIRALAX PACK 1 po qd PRN Constipation POLYETHYLENE GLYCOL 3350 12091344331 Active Capo Poe MD Active DULERA 100-5 MCG/ACT AERO 2 puffs BID MOMETASONE FURO- FORMOTEROL FUM 01364256913 Active Capo Poe MD Active ZOLOFT 100 MG TABS 1 po daily SERTRALINE HCL 06388359596 No Longer Active Zoran Arzola MD Active FERROUS SULFATE 325 (65 FE) MG TABS 1 tablet by mouth daily FERROUS SULFATE 53837010369 No Longer Active Capo Poe MD Active HYDROCODONE-ACETAMINOPHEN 7.5-300 MG TABS take one every six hours HYDROCODONE-ACETAMINOPHEN 26354839351 No Longer Active Capo Poe MD Active TRIAMCINOLONE ACETONIDE 0.1 % OINT Apply to affected areas TID for up to 2 weeks TRIAMCINOLONE ACETONIDE 08717550184 No Longer Active Joe Vargas RN Active FERROUS SULFATE 325 (65 FE) MG TABS Take one by mouth daily FERROUS SULFATE 74979458435 No Longer Active Capo Poe MD Active TRIAMCINOLONE ACETONIDE 0.1 % OINT Apply to affected areas TID for up to 2 weeks TRIAMCINOLONE ACETONIDE 80985939276 No Longer Active Capo Poe MD Active ADULT ASPIRIN LOW STRENGTH 81 MG TBDP qd ASPIRIN 04316057669 Active Zoran Arzola MD Active ALEVE 220 MG TAB prn NAPROXEN SODIUM 09443503138 Active Capo Poe MD Active MACROBID 100 MG CAP 1 cap by mouth twice daily NITROFURANTOIN MONOHYD MACRO 32787183203 No Longer Active Dona Becker Active AZITHROMYCIN 250 MG TABS 2 po qd x 1 day, then 1 po qd x 4 days AZITHROMYCIN 01884871201 No Longer Active Capo Poe MD Active FISH OIL 500 MG CAPS by mouth twice a day OMEGA-3 FATTY ACIDS 26963659587 Active Capo Poe MD Active FLAXSEED OIL 1000 MG CAPS Take two by mouth daily FLAXSEED (LINSEED) 81303656765 Active Zoran Arzola MD Active RED YEAST RICE 600 MG CAPS Take two by mouth daily RED YEAST RICE EXTRACT 11805635659 Active Zoran Arzola MD Active MULTIVITAMINS CAPS Take one by mouth daily MULTIPLE VITAMIN 36128894632 Elza Arzola MD Active ICAPS MV TABS 2 po daily MULTIPLE VITAMINS-MINERALS 83012909236 Active Jam Arnold DO Active MACROBID 100 MG CAP 1 cap by mouth twice daily MACROBID 100 MG CAP 0397570 NITROFURANTOIN MONOHYD MACRO Inactive FERROUS SULFATE 325 (65 FE) MG TABS Take one by mouth daily FERROUS SULFATE 325 (65 FE) MG TABS 135878 FERROUS SULFATE Inactive HYDROCODONE-ACETAMINOPHEN 7.5-300 MG TABS take one every six hours HYDROCODONE-ACETAMINOPHEN 7.5-300 MG TABS 276489 HYDROCODONE- ACETAMINOPHEN Inactive FERROUS SULFATE 325 (65 FE) MG TABS 1 tablet by mouth daily FERROUS SULFATE 325 (65 FE) MG TABS 774070 FERROUS SULFATE Inactive ZOLOFT 100 MG TABS 1 po daily ZOLOFT 100 MG TABS 250937 SERTRALINE HCL Inactive SERTRALINE HCL 100 MG ORAL TABS take 1 tab daily SERTRALINE HCL 100 MG ORAL TABS 372853 SERTRALINE HCL Inactive TRAMADOL HCL 50 MG TABS 1-2 tablets every 6 hours as needed for pain TRAMADOL HCL 50 MG TABS 786590 TRAMADOL HCL Inactive NICOTINE 14 MG/24HR TRANS PT24 Apply/Change q 24hr NICOTINE 14 MG/24HR TRANS PT24 075242 NICOTINE Inactive FLOMAX 0.4 MG CAPS Take one by mouth daily FLOMAX 0.4 MG CAPS 301307 TAMSULOSIN HCL Inactive LORTAB 7.5-325 MG ORAL TABS 1 po q 6 hr prn pain LORTAB 7.5- 325 MG ORAL TABS 196378 HYDROCODONE-ACETAMINOPHEN Inactive VIIBRYD STARTER PACK 10 & 20 MG ORAL KIT 1 po qd as directed 2015 VIIBRYD STARTER PACK 10 & 20 MG ORAL KIT VILAZODONE HCL Inactive AZITHROMYCIN 250 MG TABS 2 po qd x 1 day, then 1 po qd x 4 days AZITHROMYCIN 250 MG TABS 1849882 AZITHROMYCIN Inactive TRIAMCINOLONE ACETONIDE 0.1 % OINT Apply to affected areas TID for up to 2 weeks TRIAMCINOLONE ACETONIDE 0.1 % OINT 5813490 TRIAMCINOLONE ACETONIDE Inactive TRIAMCINOLONE ACETONIDE 0.1 % OINT Apply to affected areas TID for up to 2 weeks TRIAMCINOLONE ACETONIDE 0.1 % OINT 4639039 TRIAMCINOLONE ACETONIDE Inactive Advance Directives Directive Description [...] E&M - 3141-9 137.3 [lb_av] Weight Measured Diagnostic Results Date Name [...] 25.5 mmol/L 21.0-32.0 sodium, serum 138 mmol/L 497-995 4412/03/18 albumin/creatinine ratio, urine 30 - 300 mg/g mg/g{creat} 0-29 urea nitrogen, blood 20 mg/dL 7-18 creatinine, serum 1.87 mg/dL 0.55-1.30 alanine aminotransferase (SGPT), serum 26 U/L 12-78 aspartate aminotransferase (SGOT), serum 20 U/L 15-37 calcium, serum 8.8 mg/dL 8.5-10.1 bilirubin, serum, total 0.40 mg/dL 0.00-1.00 cholesterol, serum 251 mg/dL 389-013 9884/03/18 triglyceride, serum, fasting 135 mg/dL 30-200 HDL [...] 0.00-4.00 Encounters Code Encounter Date Provider Facility CPT-46539 Level 4 Est. Patient 10:22:57 CDT Capo Poe MD [facility] CPT-30224 Level 4 Est. Patient 13:44:30 CDT Capo Poe MD [facility] CPT-83590 Level 3 Est. Patient 14:59:32 PROJECT CONTROL MANAGER Capo Poe MD [facility] CPT-26721 Level 4 Est. Patient 10:46:15 PROJECT CONTROL MANAGER Capo Poe MD [facility] CPT-56597 Level 3 Est. Patient 11:00:53 CDT Capo Poe MD [facility] CPT-40870 Level 3 Est. Patient 09:39:35 CDT Capo Poe MD [facility] CPT-05856 Level 3 Est. Patient 09:27:01 CDT Capo Poe MD [facility] CPT-70440 Level 3 Est. Patient 18:37:08 CDT Zoran Arzola MD [facility] CPT-22943 Level 3 Est. Patient 15:00:28 CDT Capo Poe MD [facility] CPT-46166 Level 3 Est. Patient 08:20:19 CDT Zoran Arzola MD [facility] CPT-38379 Level 3 Est. Patient 09:22:21 CDT Capo Poe MD [facility] CPT-18216 Level 4 Est. Patient 10:21:30 PROJECT CONTROL MANAGER Capo Poe MD [facility] CPT-30098 Level 3 Est. Patient 17:08:51 PROJECT CONTROL MANAGER Zoran Arzola MD [facility] CPT-55513 Level 4 Est. Patient 09:44:42 CDT Capo Poe MD [facility] CPT-51462 Level 4 Est. Patient 10:39:29 CDT Capo Poe MD [facility] CPT-40282 Level 3 Est. Patient 17:45:23 CDT Zoran Arzola MD [facility] CPT-03306 Level 4 Est. Patient 08:50:44 CDT Capo Poe MD [facility] CPT-31524 Level 3 Est. Patient 10:39:51 PROJECT CONTROL MANAGER Capo Poe MD [facility] CPT-77059 Level 4 Est. Patient 09:44:24 PROJECT CONTROL MANAGER Capo Poe MD [facility] CPT-07104 Level 3 Est. Patient 14:48:42 PROJECT CONTROL MANAGER Zoran Arzola MD [facility] CPT-51439 Level 4 Est. Patient 10:24:02 CDT Capo Poe MD [facility] CPT-38496 Level 3 Est. Patient 15:42:00 CDT Maya Brownlee ERNST [facility] CPT-32939 Level 4 Est. Patient 13:34:15 CDT Capo Poe MD [facility] CPT-57521 Level 3 Est. Patient 15:32:10 PROJECT CONTROL MANAGER Zoran Arzola MD [facility] CPT-87627 Level 3 New Patient 17:17:19 PROJECT CONTROL MANAGER Zroan Arzola MD [facility] CPT-61361 Level 4 Est. Patient 10:25:01 PROJECT CONTROL MANAGER Capo Poe MD [facility] CPT-82835 Level 3 Est. Patient 10:10:42 CDT Zoran Arzola MD [facility] CPT-71978 Level 3 Est. Patient 22:30:02 CDT Zoran Arzola MD [facility] CPT-91242 Level 4 Est. Patient 09:54:20 CDT Capo Poe MD [facility] CPT-42086 Level 3 Est. Patient 10:48:30 CDT Capo Poe MD [facility] CPT-75437 Level 3 Est. Patient 11:24:45 CDT Capo Poe MD [facility] CPT-59005 Level 3 Est. Patient 15:23:48 PROJECT CONTROL MANAGER Capo Poe MD [facility] CPT-70531 Level 3 Est. Patient 15:10:03 PROJECT CONTROL MANAGER Capo Poe MD [facility] CPT-36210 Level 3 Est. Patient 16:18:40 CDT Zoran Arzola MD [facility] Procedures Code Procedure Name Date Entry Date Standard Description CPT-71595 Venipuncture Draw Fee 09:32:34 CDT CPT-G0438 Initial Annual Wellness Exam 10:24:35 CDT CPT-77580 Venipuncture Draw Fee 09:46:29 CDT CPT-55344 Venipuncture Draw Fee 14:30:06 CDT CPT-90075 Venipuncture Draw Fee 10:58:22 CDT CPT-60153 Abd single AP View 08:32:00 CDT CPT-40693 Postop F/U Visit 21:13:08 CDT CPT-86920 Abd single AP View 15:50:24 CDT CPT-82846 Cystoscopy W/rem FB 15:21:28 CDT CPT-39746 Abd single AP View 14:06:45 CDT CPT-70137 Postop F/U Visit 09:48:32 CDT CPT-30876 Abd single AP View 13:58:26 CDT CPT-26591 Hip comp min 2V 10:27:18 PROJECT CONTROL MANAGER CPT-14594 Urine Dip (Floor Use Only) 13:41:01 PROJECT CONTROL MANAGER CPT-06367 Postop F/U Visit 11:17:48 CDT CPT-LR Lesion Removal 11:50:22 CDT CPT-OV Office Visit 11:50:22 CDT CPT-63301 Pneumovax 23 10:55:48 CDT CPT-16744 Administration single or combination vaccine inc oral 10 :55:48 CDT CPT-Cryo Cryotherapy 11:18:11 CDT CPT-OV Office Visit 11:18:11 CDT CPT-37013 LS spine AP and Lat 09:05:22 CDT CPT-50027 Bladder Scan 15:42:00 CDT CPT-80275 Cystoscopy 15:42:00 CDT CPT-OV Office Visit 16:37:19 PROJECT CONTROL MANAGER CPT-42290 Bladder Scan 15:32:10 PROJECT CONTROL MANAGER CPT-85969 Cystoscopy 15:32:10 PROJECT CONTROL MANAGER CPT-54514 Abd single AP View 14:05:59 PROJECT CONTROL MANAGER CPT-43162 Pill cam small bowel 09:48:39 PROJECT CONTROL MANAGER CPT-19645 Urine Dip (Floor Use Only) 17:17:19 PROJECT CONTROL MANAGER CPT-23013 Bladder Scan 17:17:19 PROJECT CONTROL MANAGER CPT-OV Office Visit 11:50:26 PROJECT CONTROL MANAGER CPT-36929 Bladder Scan 10:10:42 CDT CPT-45609 Venipuncture Draw Fee 09:14:04 CDT CPT-33046 Chest 2V Frontal and Lat 10:10:49 CDT CPT-99353 LS spine comp w obliq 11:50:11 CDT CPT-76615 Venipuncture Draw Fee 08:52:57 PROJECT CONTROL MANAGER CPT-79105 Cystoscopy W/rem FB 18:37:28 CDT CPT-42414 Abd single AP View 16:18:40 CDT CPT-84935 Abd compl w upright 17:30:59 CDT
--- OUTSIDE RECORDS SUMMARY | 2016-11-22 16:29 | XMS REPORT | Clinical Summary ---
Author Author Admin, QIE Organization [employer] Address Unknown Phone Unavailable Allergies, Adverse Reactions, [...] skin eruption Near syncope 780.2 Resolved Capo Peo MD Syncope and collapse Carotid artery stenosis [...] collapse Iron deficiency 280.9 Active Jasmin Dixon [facility] Iron deficiency anemia, unspecified COPD, [...] then 1 po qd x 4 AZITHROMYCIN 73664286058 Active Capo Poe MD Active PREDNISONE 20 MG ORAL TABS 2 po qd x 5 days PREDNISONE 47004457309 Active Capo Poe MD Active CARAFATE 1 GM ORAL TABS 1 tid SUCRALFATE 48192330164 Active Capo Poe MD Active RANITIDINE HCL 150 MG ORAL TABS 1 bid RANITIDINE HCL 36962741648 Active Capo Poe MD Active MULTIVITAMINS CAPS Take one by mouth daily MULTIPLE VITAMIN 26601544250 No Longer Active Capo Poe MD Active LISINOPRIL 10 MG TABS 1 tablet by mouth daily LISINOPRIL 52250310831 No Longer Active Capo Poe MD Active EQL IRON SUPPLEMENT THERAPY 325 MG ORAL TABS 1 tab po twice daily FERROUS SULFATE 43119017086 Active Jasmin Dixon RMA Active D ORAL TABS 2000 iu weekly D ORAL TABS Active Capo Poe MD Active CITALOPRAM HYDROBROMIDE 20 MG TABS 1 tablet by mouth daily CITALOPRAM HYDROBROMIDE 82919545260 Active Capo Poe MD Active CLARITIN 5 MG ORAL CHEW 1 tab po q day LORATADINE 71293277586 Active Felisa Shelley [place] Active VIIBRYD STARTER PACK 10 & 20 MG ORAL KIT 1 po qd as directed 2015 VILAZODONE HCL 95529634675 No Longer Active Felisa Daphney RMA Active HYDROXYZINE HCL 25 MG TAB 1 po qHS PRN Insomnia HYDROXYZINE HCL 60371626700 Active Capo Poe MD Active LORTAB 7.5-325 MG ORAL TABS 1 po q 6 hr prn pain HYDROCODONE- ACETAMINOPHEN 72595553071 No Longer Active Capo Poe MD Active FLOMAX 0.4 MG CAPS Take one by mouth daily TAMSULOSIN HCL 94519074015 No Longer Active Capo Poe MD Active TRIAMCINOLONE ACETONIDE 0.1 % CREA Apply to affected areas TID for up to 2 weeks TRIAMCINOLONE ACETONIDE 66351267340 Active Capo Poe MD Active NICOTINE 14 MG/24HR TRANS PT24 Apply/Change q 24hr NICOTINE 63213867176 No Longer Active Capo Poe MD Active TRAMADOL HCL 50 MG TABS 1-2 tablets every 6 hours as needed for pain TRAMADOL HCL 26434407664 No Longer Active Capo Poe MD Active SERTRALINE HCL 100 MG ORAL TABS take 1 tab daily SERTRALINE HCL 92403679234 No Longer Active Capo Poe MD Active LISINOPRIL-HYDROCHLOROTHIAZIDE 10-12.5 MG TABS 0.5 tab by mouth daily LISINOPRIL-HYDROCHLOROTHIAZIDE 83798678947 No Longer Active Capo Poe MD Active OMEPRAZOLE 20 MG CPDR 1 tablet by mouth daily OMEPRAZOLE 85280365156 Active Capo Poe MD Active WELLBUTRIN SR 150 MG ORAL [id number] 1 po BID BUPROPION HCL 42023477368 No Longer Active Capo Poe MD Active MIRALAX PACK 1 po qd PRN Constipation POLYETHYLENE GLYCOL 3350 54181258999 Active Capo Poe MD Active DULERA 100-5 MCG/ACT AERO 2 puffs BID MOMETASONE FURO- FORMOTEROL FUM 05590170647 Active Capo Poe MD Active ZOLOFT 100 MG TABS 1 po daily SERTRALINE HCL 75917486906 No Longer Active Zoran Arzola MD Active FERROUS SULFATE 325 (65 FE) MG TABS 1 tablet by mouth daily FERROUS SULFATE 12544274043 No Longer Active Capo Poe MD Active HYDROCODONE-ACETAMINOPHEN 7.5-300 MG TABS take one every six hours HYDROCODONE-ACETAMINOPHEN 20392998314 No Longer Active Capo Poe MD Active TRIAMCINOLONE ACETONIDE 0.1 % OINT Apply to affected areas TID for up to 2 weeks TRIAMCINOLONE ACETONIDE 50947156099 No Longer Active Joe Vargas RN Active FERROUS SULFATE 325 (65 FE) MG TABS Take one by mouth daily FERROUS SULFATE 74798603007 No Longer Active Capo Poe MD Active TRIAMCINOLONE ACETONIDE 0.1 % OINT Apply to affected areas TID for up to 2 weeks TRIAMCINOLONE ACETONIDE 55321958918 No Longer Active Capo Poe MD Active ADULT ASPIRIN LOW STRENGTH 81 MG TBDP qd ASPIRIN 47882297292 Active Zoran Arzola MD Active ALEVE 220 MG TAB prn NAPROXEN SODIUM 71555594531 Active Capo Poe MD Active MACROBID 100 MG CAP 1 cap by mouth twice daily NITROFURANTOIN MONOHYD MACRO 06750821420 No Longer Active Donaarmando Becker Active AZITHROMYCIN 250 MG TABS 2 po qd x 1 day, then 1 po qd x 4 days AZITHROMYCIN 85439685647 No Longer Active Capo Poe MD Active FISH OIL 500 MG CAPS by mouth twice a day OMEGA-3 FATTY ACIDS 03787990030 Active Capo Poe MD Active FLAXSEED OIL 1000 MG CAPS Take two by mouth daily FLAXSEED (LINSEED) 95219303870 Active Zoran Arzola MD Active RED YEAST RICE 600 MG CAPS Take two by mouth daily RED YEAST RICE EXTRACT 52045030886 Active Zoran Arzola MD Active ICAPS MV TABS 2 po daily MULTIPLE VITAMINS-MINERALS 64166817174 Active Jam Arnold DO Active MACROBID 100 MG CAP 1 cap by mouth twice daily MACROBID 100 MG CAP 3610655 NITROFURANTOIN MONOHYD MACRO Inactive FERROUS SULFATE 325 (65 FE) MG TABS Take one by mouth daily FERROUS SULFATE 325 (65 FE) MG TABS 881797 FERROUS SULFATE Inactive HYDROCODONE-ACETAMINOPHEN 7.5-300 MG TABS take one every six hours HYDROCODONE-ACETAMINOPHEN 7.5-300 MG TABS 891361 HYDROCODONE- ACETAMINOPHEN Inactive FERROUS SULFATE 325 (65 FE) MG TABS 1 tablet by mouth daily FERROUS SULFATE 325 (65 FE) MG TABS 298550 FERROUS SULFATE Inactive ZOLOFT 100 MG TABS 1 po daily ZOLOFT 100 MG TABS 093691 SERTRALINE HCL Inactive SERTRALINE HCL 100 MG ORAL TABS take 1 tab daily SERTRALINE HCL 100 MG ORAL TABS 432121 SERTRALINE HCL Inactive TRAMADOL HCL 50 MG TABS 1-2 tablets every 6 hours as needed for pain TRAMADOL HCL 50 MG TABS 555742 TRAMADOL HCL Inactive NICOTINE 14 MG/24HR TRANS PT24 Apply/Change q 24hr NICOTINE 14 MG/24HR TRANS PT24 19790323 NICOTINE Inactive FLOMAX 0.4 MG CAPS Take one by mouth daily FLOMAX 0.4 MG CAPS 642551 TAMSULOSIN HCL Inactive LORTAB 7.5-325 MG ORAL TABS 1 po q 6 hr prn pain LORTAB 7.5- 325 MG ORAL TABS 834369 HYDROCODONE-ACETAMINOPHEN Inactive VIIBRYD STARTER PACK 10 & 20 MG ORAL KIT 1 po qd as directed 2015 VIIBRYD STARTER PACK 10 & 20 MG ORAL KIT VILAZODONE HCL Inactive LISINOPRIL 10 MG TABS 1 tablet by mouth daily LISINOPRIL 10 MG TABS 674727 LISINOPRIL Inactive MULTIVITAMINS CAPS Take one by mouth daily MULTIVITAMINS CAPS MULTIPLE VITAMIN Inactive AZITHROMYCIN 250 MG TABS 2 po qd x 1 day, then 1 po qd x 4 days AZITHROMYCIN 250 MG TABS 3191970 AZITHROMYCIN Inactive TRIAMCINOLONE ACETONIDE 0.1 % OINT Apply to affected areas TID for up to 2 weeks TRIAMCINOLONE ACETONIDE 0.1 % OINT 2217069 TRIAMCINOLONE ACETONIDE Inactive TRIAMCINOLONE ACETONIDE 0.1 % OINT Apply to affected areas TID for up to 2 weeks TRIAMCINOLONE ACETONIDE 0.1 % OINT 9228768 TRIAMCINOLONE ACETONIDE Inactive Advance Directives Directive Description [...] ... - Chemistry sodium, serum 141 mmol/L 732-991 7245/01/27 carbon dioxide, venous blood 29.7 mmol/L 21.0-32.0 [...] Panel, Thyroid Stimulating Hormo ... - Hematology erythrocyte (RBC) count 4.28 10^6/MM^3 10*6/mm3 4.50-6.50 mean corpuscular hemoglobin concentration, RBC 31.9 G/DL % 32.0- 36.0 mean corpuscular hemoglobin, RBC 25.3 pg 27.0-32.0 mean corpuscular volume, RBC 79 fL 80-100 hematocrit, blood 33.9 % 40.0-54.0 hemoglobin, blood 10.8 g/dL 13.0-17.0 lymphocytes as percent of blood leukocytes 18.9 % 20.5-51.1 monocytes as percent of blood leukocytes 7.6 % 1.7-9.3 neutrophils as percent of blood leukocytes 70.9 % 42.2-75.2 leukocyte count, blood 6.8 10^3/MM^3 10*3/mm3 4.0-10.0 red blood cell distribution width 14.6 % [...] % 11.0-15.0 platelet count 214 THOUSAND/UL 10*3/mm3 195-558 7247/03/31 mean platelet volume 8.4 fL 7.5-12.5 Encounters Code Encounter Date Provider Facility CPT-53183 Level 3 Est. Patient 09:44:06 CDT Capo Poe MD [facility] CPT-44759 Level 4 Est. Patient 09:26:11 ASSISTANT FINANCIAL ACCOUNTANT Capo Poe MD [facility] CPT-69842 Level 4 Est. Patient 08:53:08 CDT Capo Poe MD [facility] CPT-08653 Level 4 Est. Patient 10:22:57 CDT Capo Poe MD [facility] CPT-98136 Level 4 Est. Patient 13:44:30 CDT Capo Poe MD [facility] CPT-13671 Level 3 Est. Patient 14:59:32 ASSISTANT FINANCIAL ACCOUNTANT Capo Poe MD [facility] CPT-51879 Level 4 Est. Patient 10:46:15 ASSISTANT FINANCIAL ACCOUNTANT Capo Poe MD [facility] CPT-42041 Level 3 Est. Patient 11:00:53 CDT Capo Poe MD [facility] CPT-90605 Level 3 Est. Patient 09:39:35 CDT Capo Poe MD [facility] CPT-06871 Level 3 Est. Patient 09:27:01 CDT Capo Poe MD [facility] CPT-32805 Level 3 Est. Patient 18:37:08 CDT Zoran Arzola MD [facility] CPT-75895 Level 3 Est. Patient 15:00:28 CDT Capo Poe MD [facility] CPT-48269 Level 3 Est. Patient 08:20:19 CDT Zoran Arzola MD [facility] CPT-78438 Level 3 Est. Patient 09:22:21 CDT Capo Poe MD [facility] CPT-02096 Level 4 Est. Patient 10:21:30 ASSISTANT FINANCIAL ACCOUNTANT Capo Poe MD [facility] CPT-40485 Level 3 Est. Patient 17:08:51 ASSISTANT FINANCIAL ACCOUNTANT Zoran Arzola MD [facility] CPT-27125 Level 4 Est. Patient 09:44:42 CDT Capo Poe MD [facility] CPT-44738 Level 4 Est. Patient 10:39:29 CDT Capo Poe MD [facility] CPT-44312 Level 3 Est. Patient 17:45:23 CDT Zoran Arzola MD [facility] CPT-20495 Level 4 Est. Patient 08:50:44 CDT Capo Poe MD [facility] CPT-85217 Level 3 Est. Patient 10:39:51 ASSISTANT FINANCIAL ACCOUNTANT Capo Poe MD [facility] CPT-75502 Level 4 Est. Patient 09:44:24 ASSISTANT FINANCIAL ACCOUNTANT Capo Poe MD [facility] CPT-35183 Level 3 Est. Patient 14:48:42 ASSISTANT FINANCIAL ACCOUNTANT Zoran Arzola MD [facility] CPT-67099 Level 4 Est. Patient 10:24:02 CDT Capo Poe MD [facility] CPT-86203 Level 3 Est. Patient 15:42:00 CDT Maya DUKES [facility] CPT-56982 Level 4 Est. Patient 13:34:15 CDT Capo Poe MD [facility] CPT-85117 Level 3 Est. Patient 15:32:10 ASSISTANT FINANCIAL ACCOUNTANT Zoran Arzola MD [facility] CPT-59129 Level 3 New Patient 17:17:19 ASSISTANT FINANCIAL ACCOUNTANT Zoran Arzola MD [facility] CPT-05848 Level 4 Est. Patient 10:25:01 ASSISTANT FINANCIAL ACCOUNTANT Capo Poe MD [facility] CPT-08881 Level 3 Est. Patient 10:10:42 CDT Zoran Arzola MD [facility] CPT-62122 Level 3 Est. Patient 22:30:02 CDT Zoran Arzola MD [facility] CPT-44107 Level 4 Est. Patient 09:54:20 CDT Capo Poe MD [facility] CPT-07210 Level 3 Est. Patient 10:48:30 CDT Capo Poe MD [facility] CPT-44862 Level 3 Est. Patient 11:24:45 CDT Capo Poe MD [facility] CPT-54954 Level 3 Est. Patient 15:23:48 ASSISTANT FINANCIAL ACCOUNTANT Capo Poe MD [facility] CPT-81539 Level 3 Est. Patient 15:10:03 ASSISTANT FINANCIAL ACCOUNTANT Capo Poe MD [facility] CPT-95802 Level 3 Est. Patient 16:18:40 CDT Zoran Arzola MD [facility] Procedures Code Procedure Name Date Entry Date Standard Description CPT-92922 Hemoccult IFOBT - LAB USE ONLY 14:11:43 ASSISTANT FINANCIAL ACCOUNTANT CPT-25278 TPSA - LAB USE ONLY 10:37:52 ASSISTANT FINANCIAL ACCOUNTANT CPT-49936 TSH - LAB USE ONLY 10:37:51 ASSISTANT FINANCIAL ACCOUNTANT CPT-65284 CMP - LAB USE ONLY 10:37:51 ASSISTANT FINANCIAL ACCOUNTANT CPT-61754 CBC with Diff - LAB USE ONLY 10:37:51 ASSISTANT FINANCIAL ACCOUNTANT CPT-40158 Venipuncture Draw Fee 10:37:51 ASSISTANT FINANCIAL ACCOUNTANT CPT-000 Give Pneumovax 10:39:30 CDT CPT-50789 Venipuncture Draw Fee 09:32:34 CDT CPT-G0438 Initial Annual Wellness Exam 10:24:35 CDT CPT-45827 Venipuncture Draw Fee 09:46:29 CDT CPT-92591 Venipuncture Draw Fee 14:30:06 CDT CPT-76866 Venipuncture Draw Fee 10:58:22 CDT CPT-93695 Abd single AP View 08:32:00 CDT CPT-03932 Postop F/U Visit 21:13:08 CDT CPT-11639 Abd single AP View 15:50:24 CDT CPT-94775 Cystoscopy W/rem FB 15:21:28 CDT CPT-66738 Abd single AP View 14:06:45 CDT CPT-54274 Postop F/U Visit 09:48:32 CDT CPT-82066 Abd single AP View 13:58:26 CDT CPT-03192 Hip comp min 2V 10:27:18 ASSISTANT FINANCIAL ACCOUNTANT CPT-33485 Urine Dip (Floor Use Only) 13:41:01 ASSISTANT FINANCIAL ACCOUNTANT CPT-26795 Postop F/U Visit 11:17:48 CDT CPT-LR Lesion Removal 11:50:22 CDT CPT-OV Office Visit 11:50:22 CDT CPT-40698 Pneumovax 23 10:55:48 CDT CPT-06887 Administration single or combination vaccine inc oral 10 :55:48 CDT CPT-Cryo Cryotherapy 11:18:11 CDT CPT-OV Office Visit 11:18:11 CDT CPT-86338 LS spine AP and Lat 09:05:22 CDT CPT-34004 Bladder Scan 15:42:00 CDT CPT-26849 Cystoscopy 15:42:00 CDT CPT-OV Office Visit 16:37:19 ASSISTANT FINANCIAL ACCOUNTANT CPT-99749 Bladder Scan 15:32:10 ASSISTANT FINANCIAL ACCOUNTANT CPT-81404 Cystoscopy 15:32:10 ASSISTANT FINANCIAL ACCOUNTANT CPT-05770 Abd single AP View 14:05:59 ASSISTANT FINANCIAL ACCOUNTANT CPT-56407 Pill cam small bowel 09:48:39 ASSISTANT FINANCIAL ACCOUNTANT CPT-97545 Urine Dip (Floor Use Only) 17:17:19 ASSISTANT FINANCIAL ACCOUNTANT CPT-41738 Bladder Scan 17:17:19 ASSISTANT FINANCIAL ACCOUNTANT CPT-OV Office Visit 11:50:26 ASSISTANT FINANCIAL ACCOUNTANT CPT-55466 Bladder Scan 10:10:42 CDT CPT-37497 Venipuncture Draw Fee 09:14:04 CDT CPT-51196 Chest 2V Frontal and Lat 10:10:49 CDT CPT-89449 LS spine comp w obliq 11:50:11 CDT CPT-97890 Venipuncture Draw Fee 08:52:57 ASSISTANT FINANCIAL ACCOUNTANT CPT-07890 Cystoscopy W/rem FB 18:37:28 CDT CPT-15452 Abd single AP View 16:18:40 CDT CPT-20265 Abd compl w upright 17:30:59 CDT
--- OUTSIDE RECORDS SUMMARY | 2016-11-22 16:30 | XMS REPORT | Clinical Summary ---
[...] AND VOMITING ICD-787.01 Inactive Capo Poe MD BRONCHITIS, ACUTE ICD-466.0 Inactive Capo Poe MD ELEVATED P S A ICD-790.93 Inactive Capo Poe MD URINARY TRACT INFECTION ICD-599.0 Inactive Capo Poe MD U T I-RECURRENT ICD-599.0 Inactive Capo Poe MD BLADDER CALCULUS ICD-594.1 Inactive Capo Poe MD HEMATURIA ICD-599.70 Inactive Capo Poe MD COUGH ICD-786.2 Inactive Capo Poe MD URINARY FREQUENCY ICD-788.41 [...] MD UTI ICD-599.0 Inactive Capo Poe MD BLADDER CALCULUS ICD-594.1 Inactive Capo Poe MD HEMATURIA ICD-599.70 Inactive Capo Poe MD Medication List Medication Instructions Start Date Stop Date Generic Name NDC Status Provider Patient Instruction DULERA 100-5 MCG/ACT AERO 2 puffs BID MOMETASONE FURO- FORMOTEROL FUM 61820729055 Active Capo oPe MD Active SERTRALINE HCL 100 MG ORAL TABS take 1 tab daily SERTRALINE HCL 48052269331 Active Capo Poe MD Active ZOLOFT 100 MG TABS 1 po daily SERTRALINE HCL 58083379639 No Longer Active Zoran Arzola MD Active FERROUS SULFATE 325 (65 FE) MG TABS 1 tablet by mouth daily FERROUS SULFATE 63259155276 No Longer Active Capo Poe MD Active TRAMADOL HCL 50 MG TABS 1-2 tablets every 6 hours as needed for pain TRAMADOL HCL 17490169477 Active Capo Poe MD Active HYDROCODONE-ACETAMINOPHEN 7.5-300 MG TABS take one every six hours HYDROCODONE-ACETAMINOPHEN 37170259499 No Longer Active Capo Poe MD Active TRIAMCINOLONE ACETONIDE 0.1 % OINT Apply to affected areas TID for up to 2 weeks TRIAMCINOLONE ACETONIDE 01855434283 No Longer Active Joe Vargas RN Active FERROUS SULFATE 325 (65 FE) MG TABS Take one by mouth daily FERROUS SULFATE 25574751821 No Longer Active Capo Poe MD Active TRIAMCINOLONE ACETONIDE 0.1 % OINT Apply to affected areas TID for up to 2 weeks TRIAMCINOLONE ACETONIDE 75240916726 No Longer Active Capo Poe MD Active ADULT ASPIRIN LOW STRENGTH 81 MG TBDP qd ASPIRIN 30440820374 Active Zoran Arzola MD Active ALEVE 220 MG TAB prn NAPROXEN SODIUM 24546082764 Active Capo Poe MD Active LISINOPRIL-HYDROCHLOROTHIAZIDE 10-12.5 MG TABS 1 tab by mouth daily LISINOPRIL-HYDROCHLOROTHIAZIDE 03834792899 Active Capo Poe MD Active MACROBID 100 MG CAP 1 cap by mouth twice daily NITROFURANTOIN MONOHYD MACRO 49917923270 No Longer Active Dona Becker Active AZITHROMYCIN 250 MG TABS 2 po qd x 1 day, then 1 po qd x 4 days AZITHROMYCIN 15818387540 No Longer Active Capo Peo MD Active FISH OIL 500 MG CAPS by mouth twice a day OMEGA-3 FATTY ACIDS 81632749016 Active Cpao Poe MD Active FLAXSEED OIL 1000 MG CAPS Take two by mouth daily FLAXSEED (LINSEED) 22537212225 Active Zoran Arzola MD Active RED YEAST RICE 600 MG CAPS Take two by mouth daily RED YEAST RICE EXTRACT 91782409860 Active Zoran Arzola MD Active MULTIVITAMINS CAPS Take one by mouth daily MULTIPLE VITAMIN 24575052897 Active Zoran Arzola MD Active ICAPS MV TABS 2 po daily MULTIPLE VITAMINS-MINERALS 92054071046 Active Jam Arnold DO Active MACROBID 100 MG CAP 1 cap by mouth twice daily MACROBID 100 MG CAP 722630 NITROFURANTOIN MONOHYD MACRO Inactive FERROUS SULFATE 325 (65 FE) MG TABS Take one by mouth daily FERROUS SULFATE 325 (65 FE) MG TABS 716441 FERROUS SULFATE Inactive HYDROCODONE-ACETAMINOPHEN 7.5-300 MG TABS take one every six hours HYDROCODONE-ACETAMINOPHEN 7.5-300 MG TABS 902824 HYDROCODONE- ACETAMINOPHEN Inactive FERROUS SULFATE 325 (65 FE) MG TABS 1 tablet by mouth daily FERROUS SULFATE 325 (65 FE) MG TABS 971362 FERROUS SULFATE Inactive ZOLOFT 100 MG TABS 1 po daily ZOLOFT 100 MG TABS 934024 SERTRALINE HCL Inactive AZITHROMYCIN 250 MG TABS 2 po qd x 1 day, then 1 po qd x 4 days AZITHROMYCIN 250 MG TABS 5348592 AZITHROMYCIN Inactive TRIAMCINOLONE ACETONIDE 0.1 % OINT Apply to affected areas TID for up to 2 weeks TRIAMCINOLONE ACETONIDE 0.1 % OINT 9866823 TRIAMCINOLONE ACETONIDE Inactive TRIAMCINOLONE ACETONIDE 0.1 % OINT Apply to affected areas TID for up to 2 weeks TRIAMCINOLONE ACETONIDE 0.1 % OINT 7853894 TRIAMCINOLONE ACETONIDE Inactive Advance Directives Directive Description [...] Description Chart Maintenance: Outside labs entered on [employer] - Chemistry sodium, serum 137 mmol/L potassium, serum 4.0 mmol/L blood glucose 117 mg/dL creatinine, serum 1.68 mg/dL Chart Maintenance: Outside labs entered on [employer] - Hematology leukocyte count, blood 9.5 10*3/mm3 [...] CBC - Chemistry cholesterol, serum 207 mg/dL 918-171 4424/02/11 triglyceride, serum, fasting 74 mg/dL 30-200 HDL cholesterol, serum 62 mg/dL 32-96 LDL cholesterol, serum 130 mg/dL 0-130 sodium, serum 144 mmol/L 505-266 8375/02/11 potassium, serum 5.0 mmol/L 3.5-5.2 chloride, serum [...] negative Encounters Code Encounter Date Provider Facility CPT-82854 Level 3 Est. Patient 08:20:19 CDT Zoran Arzola MD [facility] CPT-09143 Level 3 Est. Patient 09:22:21 CDT Capo Poe MD [facility] CPT-07769 Level 4 Est. Patient 10:21:30 SIDE DOOR WORKER Capo Poe MD [facility] CPT-93546 Level 3 Est. Patient 17:08:51 SIDE DOOR WORKER Zoran Arzola MD [facility] CPT-00596 Level 4 Est. Patient 09:44:42 CDT Capo Poe MD [facility] CPT-83475 Level 4 Est. Patient 10:39:29 CDT Capo Poe MD [facility] CPT-43342 Level 3 Est. Patient 17:45:23 CDT Zoran Arzola MD [facility] CPT-68779 Level 4 Est. Patient 08:50:44 CDT Capo Poe MD [facility] CPT-24036 Level 3 Est. Patient 10:39:51 SIDE DOOR WORKER Capo Poe MD [facility] CPT-32001 Level 4 Est. Patient 09:44:24 SIDE DOOR WORKER Capo Poe MD [facility] CPT-35710 Level 3 Est. Patient 14:48:42 SIDE DOOR WORKER Zoran Arzola MD [facility] CPT-16692 Level 4 Est. Patient 10:24:02 CDT Capo Poe MD [facility] CPT-18250 Level 3 Est. Patient 15:42:00 CDT Maya WRIGHTP [facility] CPT-51617 Level 4 Est. Patient 13:34:15 CDT Capo Poe MD [facility] CPT-02624 Level 3 Est. Patient 15:32:10 SIDE DOOR WORKER Zoran Arzola MD [facility] CPT-55119 Level 3 New Patient 17:17:19 SIDE DOOR WORKER Zoran Arzola MD [facility] CPT-08937 Level 4 Est. Patient 10:25:01 SIDE DOOR WORKER Capo Poe MD [facility] CPT-74817 Level 3 Est. Patient 10:10:42 CDT Zoran Arzola MD [facility] CPT-22568 Level 3 Est. Patient 22:30:02 CDT Zoran Arzola MD [facility] CPT-15564 Level 4 Est. Patient 09:54:20 CDT Capo Poe MD [facility] CPT-43624 Level 3 Est. Patient 10:48:30 CDT Capo Poe MD [facility] CPT-07779 Level 3 Est. Patient 11:24:45 CDT Capo Poe MD [facility] CPT-07688 Level 3 Est. Patient 15:23:48 SIDE DOOR WORKER Capo Poe MD [facility] CPT-44073 Level 3 Est. Patient 15:10:03 SIDE DOOR WORKER Capo Poe MD [facility] CPT-09685 Level 3 Est. Patient 16:18:40 CDT Zoran Arzola MD [facility] Procedures Code Procedure Name Date Entry Date Standard Description CPT-08220 Postop F/U Visit 21:13:08 CDT CPT-31038 Abd single AP View 15:50:24 CDT CPT-75169 Cystoscopy W/rem FB 15:21:28 CDT CPT-55053 Abd single AP View 14:06:45 CDT CPT-47156 Postop F/U Visit 09:48:32 CDT CPT-17661 Abd single AP View 13:58:26 CDT CPT-30230 Hip comp min 2V 10:27:18 SIDE DOOR WORKER CPT-71338 Urine Dip (Floor Use Only) 13:41:01 SIDE DOOR WORKER CPT-24312 Postop F/U Visit 11:17:48 CDT CPT-LR Lesion Removal 11:50:22 CDT CPT-OV Office Visit 11:50:22 CDT CPT-57709 Pneumovax 23 10:55:48 CDT CPT-09434 Administration single or combination vaccine inc oral 10 :55:48 CDT CPT-Cryo Cryotherapy 11:18:11 CDT CPT-OV Office Visit 11:18:11 CDT CPT-04683 LS spine AP and Lat 09:05:22 CDT CPT-57267 Bladder Scan 15:42:00 CDT CPT-98380 Cystoscopy 15:42:00 CDT CPT-OV Office Visit 16:37:19 SIDE DOOR WORKER CPT-61621 Bladder Scan 15:32:10 SIDE DOOR WORKER CPT-34658 Cystoscopy 15:32:10 SIDE DOOR WORKER CPT-48589 Abd single AP View 14:05:59 SIDE DOOR WORKER CPT-07014 Pill cam small bowel 09:48:39 SIDE DOOR WORKER CPT-56613 Urine Dip (Floor Use Only) 17:17:19 SIDE DOOR WORKER CPT-76380 Bladder Scan 17:17:19 SIDE DOOR WORKER CPT-OV Office Visit 11:50:26 SIDE DOOR WORKER CPT-90596 Bladder Scan 10:10:42 CDT CPT-91824 Venipuncture Draw Fee 09:14:04 CDT CPT-89460 Chest 2V Frontal and Lat 10:10:49 CDT CPT-70590 LS spine comp w obliq 11:50:11 CDT CPT-85945 Venipuncture Draw Fee 08:52:57 SIDE DOOR WORKER CPT-37592 Cystoscopy W/rem FB 18:37:28 CDT CPT-90685 Abd single AP View 16:18:40 CDT CPT-28398 Abd compl w upright 17:30:59 CDT
--- OUTSIDE RECORDS SUMMARY | 2016-11-22 16:32 | XMS REPORT | Clinical Summary ---
Author Author Admin, QIE Organization [employer] Address Unknown Phone Unavailable Allergies, Adverse Reactions, [...] Iron deficiency 280.9 Active Jasmin Dixon [facility] Iron deficiency anemia, unspecified COPD, acute exacerbation [...] MG TABS 1 daily for infection LEVOFLOXACIN 56158401021 Active Leanna Baker APRN Active AZITHROMYCIN 250 MG ORAL TABS 2 po qd x 1, then 1 po qd x 4 AZITHROMYCIN 90135446929 Active Capo Poe MD Active PREDNISONE 20 MG ORAL TABS 2 po qd x 5 days PREDNISONE 33693694391 No Longer Active Capo Poe MD Active CARAFATE 1 GM ORAL TABS 1 tid SUCRALFATE 22511810369 Active Capo Poe MD Active RANITIDINE HCL 150 MG ORAL TABS 1 bid RANITIDINE HCL 73544819472 Active Capo Poe MD Active MULTIVITAMINS CAPS Take one by mouth daily MULTIPLE VITAMIN 69039667383 No Longer Active Capo Poe MD Active LISINOPRIL 10 MG TABS 1 tablet by mouth daily LISINOPRIL 16595574709 No Longer Active Capo Poe MD Active EQL IRON SUPPLEMENT THERAPY 325 MG ORAL TABS 1 tab po twice daily FERROUS SULFATE 53575636876 Active Jasmin Dixon RMA Active D ORAL TABS 2000 iu weekly D ORAL TABS Active Capo Poe MD Active CITALOPRAM HYDROBROMIDE 20 MG TABS 1 tablet by mouth daily CITALOPRAM HYDROBROMIDE 34019783676 Active Capo Poe MD Active CLARITIN 5 MG ORAL CHEW 1 tab po q day LORATADINE 35778254631 Active Felisa Daphney TEIXEIRA Active VIIBRYD STARTER PACK 10 & 20 MG ORAL KIT 1 po qd as directed 2015 VILAZODONE HCL 61149083663 No Longer Active Felisamario Shelley RMA Active HYDROXYZINE HCL 25 MG TAB 1 po qHS PRN Insomnia HYDROXYZINE HCL 84011528846 Active Capo Poe MD Active LORTAB 7.5-325 MG ORAL TABS 1 po q 6 hr prn pain HYDROCODONE- ACETAMINOPHEN 47794957248 No Longer Active Capo Poe MD Active FLOMAX 0.4 MG CAPS Take one by mouth daily TAMSULOSIN HCL 50454108970 No Longer Active Capo Poe MD Active TRIAMCINOLONE ACETONIDE 0.1 % CREA Apply to affected areas TID for up to 2 weeks TRIAMCINOLONE ACETONIDE 53361515800 Active Capo Poe MD Active NICOTINE 14 MG/24HR TRANS PT24 Apply/Change q 24hr NICOTINE 42696806842 No Longer Active Capo Poe MD Active TRAMADOL HCL 50 MG TABS 1-2 tablets every 6 hours as needed for pain TRAMADOL HCL 37520061572 No Longer Active Capo Poe MD Active SERTRALINE HCL 100 MG ORAL TABS take 1 tab daily SERTRALINE HCL 11164743468 No Longer Active Capo Poe MD Active LISINOPRIL-HYDROCHLOROTHIAZIDE 10-12.5 MG TABS 0.5 tab by mouth daily LISINOPRIL-HYDROCHLOROTHIAZIDE 39868118572 No Longer Active Capo Poe MD Active OMEPRAZOLE 20 MG CPDR 1 tablet by mouth daily OMEPRAZOLE 34783225415 Active Capo Poe MD Active WELLBUTRIN SR 150 MG ORAL IE59A-PDT 1 po BID BUPROPION HCL 16211264315 No Longer Active Capo Poe MD Active MIRALAX PACK 1 po qd PRN Constipation POLYETHYLENE GLYCOL 3350 60634286315 Active Capo Poe MD Active DULERA 100-5 MCG/ACT AERO 2 puffs BID MOMETASONE FURO- FORMOTEROL FUM 01398129770 Active Capo Poe MD Active ZOLOFT 100 MG TABS 1 po daily SERTRALINE HCL 81938140728 No Longer Active Zoran Arzola MD Active FERROUS SULFATE 325 (65 FE) MG TABS 1 tablet by mouth daily FERROUS SULFATE 87206247281 No Longer Active Capo Poe MD Active HYDROCODONE-ACETAMINOPHEN 7.5-300 MG TABS take one every six hours HYDROCODONE-ACETAMINOPHEN 62346120482 No Longer Active Capo Poe MD Active TRIAMCINOLONE ACETONIDE 0.1 % OINT Apply to affected areas TID for up to 2 weeks TRIAMCINOLONE ACETONIDE 62131142396 No Longer Active Joe Vargas RN Active FERROUS SULFATE 325 (65 FE) MG TABS Take one by mouth daily FERROUS SULFATE 34999301262 No Longer Active Capo Poe MD Active TRIAMCINOLONE ACETONIDE 0.1 % OINT Apply to affected areas TID for up to 2 weeks TRIAMCINOLONE ACETONIDE 49400561755 No Longer Active Capo Poe MD Active ADULT ASPIRIN LOW STRENGTH 81 MG TBDP qd ASPIRIN 00545704088 Active Zoran Arzola MD Active ALEVE 220 MG TAB prn NAPROXEN SODIUM 38588395377 Active Capo Poe MD Active MACROBID 100 MG CAP 1 cap by mouth twice daily NITROFURANTOIN MONOHYD MACRO 67253204830 No Longer Active Dona Becker Active AZITHROMYCIN 250 MG TABS 2 po qd x 1 day, then 1 po qd x 4 days AZITHROMYCIN 30435625190 No Longer Active Capo Poe MD Active FISH OIL 500 MG CAPS by mouth twice a day OMEGA-3 FATTY ACIDS 22385669808 Active Capo Poe MD Active FLAXSEED OIL 1000 MG CAPS Take two by mouth daily FLAXSEED (LINSEED) 05140432954 Active Zoran Arzola MD Active RED YEAST RICE 600 MG CAPS Take two by mouth daily RED YEAST RICE EXTRACT 03800002136 Active Zoran Arzola MD Active ICAPS MV TABS 2 po daily MULTIPLE VITAMINS-MINERALS 32762791443 Active Jam Arnold DO Active MACROBID 100 MG CAP 1 cap by mouth twice daily MACROBID 100 MG CAP 1382624 NITROFURANTOIN MONOHYD MACRO Inactive FERROUS SULFATE 325 (65 FE) MG TABS Take one by mouth daily FERROUS SULFATE 325 (65 FE) MG TABS 200909 FERROUS SULFATE Inactive HYDROCODONE-ACETAMINOPHEN 7.5-300 MG TABS take one every six hours HYDROCODONE-ACETAMINOPHEN 7.5-300 MG TABS 184865 HYDROCODONE- ACETAMINOPHEN Inactive FERROUS SULFATE 325 (65 FE) MG TABS 1 tablet by mouth daily FERROUS SULFATE 325 (65 FE) MG TABS 020565 FERROUS SULFATE Inactive ZOLOFT 100 MG TABS 1 po daily ZOLOFT 100 MG TABS 542019 SERTRALINE HCL Inactive SERTRALINE HCL 100 MG ORAL TABS take 1 tab daily SERTRALINE HCL 100 MG ORAL TABS 477046 SERTRALINE HCL Inactive TRAMADOL HCL 50 MG TABS 1-2 tablets every 6 hours as needed for pain TRAMADOL HCL 50 MG TABS 804760 TRAMADOL HCL Inactive NICOTINE 14 MG/24HR TRANS PT24 Apply/Change q 24hr NICOTINE 14 MG/24HR TRANS PT24 754976 NICOTINE Inactive FLOMAX 0.4 MG CAPS Take one by mouth daily FLOMAX 0.4 MG CAPS 830918 TAMSULOSIN HCL Inactive LORTAB 7.5-325 MG ORAL TABS 1 po q 6 hr prn pain LORTAB 7.5- 325 MG ORAL TABS 820884 HYDROCODONE-ACETAMINOPHEN Inactive VIIBRYD STARTER PACK 10 & 20 MG ORAL KIT 1 po qd as directed 2015 VIIBRYD STARTER PACK 10 & 20 MG ORAL KIT VILAZODONE HCL Inactive LISINOPRIL 10 MG TABS 1 tablet by mouth daily LISINOPRIL 10 MG TABS 492089 LISINOPRIL Inactive MULTIVITAMINS CAPS Take one by mouth daily MULTIVITAMINS CAPS MULTIPLE VITAMIN Inactive AZITHROMYCIN 250 MG TABS 2 po qd x 1 day, then 1 po qd x 4 days AZITHROMYCIN 250 MG TABS 6172283 AZITHROMYCIN Inactive TRIAMCINOLONE ACETONIDE 0.1 % OINT Apply to affected areas TID for up to 2 weeks TRIAMCINOLONE ACETONIDE 0.1 % OINT 7446377 TRIAMCINOLONE ACETONIDE Inactive TRIAMCINOLONE ACETONIDE 0.1 % OINT Apply to affected areas TID for up to 2 weeks TRIAMCINOLONE ACETONIDE 0.1 % OINT 2603705 TRIAMCINOLONE ACETONIDE Inactive PREDNISONE 20 MG ORAL TABS 2 po qd x 5 days PREDNISONE 20 MG ORAL TABS 294817 PREDNISONE Inactive Advance Directives Directive Description Start [...] ... - Chemistry sodium, serum 141 mmol/L 133-692 2700/01/27 carbon dioxide, venous blood 29.7 mmol/L 21.0-32.0 [...] % 11.0-15.0 platelet count 214 THOUSAND/UL 10*3/mm3 455-251 7236/03/31 mean platelet volume 8.4 fL 7.5-12.5 Encounters Code Encounter Date Provider Facility CPT-90018 Level 3 Est. Patient 11:31:49 CDT Leanna Baker APRN [facility] CPT-28417 Level 3 Est. Patient 09:44:06 CDT Capo Poe MD [facility] CPT-50359 Level 4 Est. Patient 09:26:11 [employer] Capo Poe MD [facility] CPT-52092 Level 4 Est. Patient 08:53:08 CDT Capo Poe MD [facility] CPT-39060 Level 4 Est. Patient 10:22:57 CDT Capo Poe MD [facility] CPT-69534 Level 4 Est. Patient 13:44:30 CDT Capo Poe MD [facility] CPT-70699 Level 3 Est. Patient 14:59:32 [employer] Capo Poe MD [facility] CPT-32075 Level 4 Est. Patient 10:46:15 [employer] Capo Poe MD [facility] CPT-68739 Level 3 Est. Patient 11:00:53 CDT Capo Poe MD [facility] CPT-86259 Level 3 Est. Patient 09:39:35 CDT Capo Poe MD [facility] CPT-11565 Level 3 Est. Patient 09:27:01 CDT Capo Poe MD [facility] CPT-74023 Level 3 Est. Patient 18:37:08 CDT Zoran Arzola MD [facility] CPT-93784 Level 3 Est. Patient 15:00:28 CDT Capo Poe MD [facility] CPT-96985 Level 3 Est. Patient 08:20:19 CDT Zoran Arzola MD [facility] CPT-12520 Level 3 Est. Patient 09:22:21 CDT Capo Poe MD [facility] CPT-20671 Level 4 Est. Patient 10:21:30 [employer] Capo Poe MD [facility] CPT-03826 Level 3 Est. Patient 17:08:51 [employer] Zoran Arzola MD [facility] CPT-20942 Level 4 Est. Patient 09:44:42 CDT Capo Poe MD [facility] CPT-91930 Level 4 Est. Patient 10:39:29 CDT Capo Poe MD [facility] CPT-22584 Level 3 Est. Patient 17:45:23 CDT Zoran Arzola MD [facility] CPT-85972 Level 4 Est. Patient 08:50:44 CDT Capo Poe MD [facility] CPT-74335 Level 3 Est. Patient 10:39:51 [employer] Capo Poe MD [facility] CPT-74176 Level 4 Est. Patient 09:44:24 [employer] Capo Poe MD [facility] CPT-04711 Level 3 Est. Patient 14:48:42 [employer] Zoran Arzola MD [facility] CPT-44370 Level 4 Est. Patient 10:24:02 CDT Capo Poe MD [facility] CPT-97262 Level 3 Est. Patient 15:42:00 CDT Maya DUKES [facility] CPT-91851 Level 4 Est. Patient 13:34:15 CDT Capo Poe MD [facility] CPT-52000 Level 3 Est. Patient 15:32:10 [employer] Zoran Arzola MD [facility] CPT-46274 Level 3 New Patient 17:17:19 [employer] Zoran Arzola MD [facility] CPT-92261 Level 4 Est. Patient 10:25:01 [employer] Capo Poe MD [facility] CPT-15995 Level 3 Est. Patient 10:10:42 CDT Zoran Arzola MD [facility] CPT-41469 Level 3 Est. Patient 22:30:02 CDT Zoran Arzola MD [facility] CPT-41385 Level 4 Est. Patient 09:54:20 CDT Capo Poe MD [facility] CPT-00774 Level 3 Est. Patient 10:48:30 CDT Capo Poe MD [facility] CPT-29353 Level 3 Est. Patient 11:24:45 CDT Capo Poe MD [facility] CPT-80724 Level 3 Est. Patient 15:23:48 [employer] Capo Poe MD [facility] CPT-45057 Level 3 Est. Patient 15:10:03 [employer] Capo Poe MD [facility] CPT-22107 Level 3 Est. Patient 16:18:40 CDT Zoran Arzola MD [facility] Procedures Code Procedure Name Date Entry Date Standard Description CPT-01817 Venipuncture Draw Fee 11:31:49 CDT CPT-52387 Hemoccult IFOBT - LAB USE ONLY 14:11:43 [employer] CPT-90418 TPSA - LAB USE ONLY 10:37:52 [employer] CPT-03544 TSH - LAB USE ONLY 10:37:51 [employer] CPT-89782 CMP - LAB USE ONLY 10:37:51 [employer] CPT-53498 CBC with Diff - LAB USE ONLY 10:37:51 [employer] CPT-16973 Venipuncture Draw Fee 10:37:51 [employer] CPT-000 Give Pneumovax 10:39:30 CDT CPT-26433 Venipuncture Draw Fee 09:32:34 CDT CPT-G0438 Initial Annual Wellness Exam 10:24:35 CDT CPT-07182 Venipuncture Draw Fee 09:46:29 CDT CPT-43667 Venipuncture Draw Fee 14:30:06 CDT CPT-82688 Venipuncture Draw Fee 10:58:22 CDT CPT-49296 Abd single AP View 08:32:00 CDT CPT-96118 Postop F/U Visit 21:13:08 CDT CPT-73680 Abd single AP View 15:50:24 CDT CPT-46809 Cystoscopy W/rem FB 15:21:28 CDT CPT-66166 Abd single AP View 14:06:45 CDT CPT-30695 Postop F/U Visit 09:48:32 CDT CPT-32540 Abd single AP View 13:58:26 CDT CPT-69781 Hip comp min 2V 10:27:18 [employer] CPT-76899 Urine Dip (Floor Use Only) 13:41:01 [employer] CPT-78516 Postop F/U Visit 11:17:48 CDT CPT-LR Lesion Removal 11:50:22 CDT CPT-OV Office Visit 11:50:22 CDT CPT-04074 Pneumovax 23 10:55:48 CDT CPT-48175 Administration single or combination vaccine inc oral 10 :55:48 CDT CPT-Cryo Cryotherapy 11:18:11 CDT CPT-OV Office Visit 11:18:11 CDT CPT-84736 LS spine AP and Lat 09:05:22 CDT CPT-10781 Bladder Scan 15:42:00 CDT CPT-22643 Cystoscopy 15:42:00 CDT CPT-OV Office Visit 16:37:19 [employer] CPT-35945 Bladder Scan 15:32:10 [employer] CPT-86067 Cystoscopy 15:32:10 [employer] CPT-27447 Abd single AP View 14:05:59 [employer] CPT-78899 Pill cam small bowel 09:48:39 [employer] CPT-61497 Urine Dip (Floor Use Only) 17:17:19 [employer] CPT-88939 Bladder Scan 17:17:19 [employer] CPT-OV Office Visit 11:50:26 [employer] CPT-15606 Bladder Scan 10:10:42 CDT CPT-59330 Venipuncture Draw Fee 09:14:04 CDT CPT-22395 Chest 2V Frontal and Lat 10:10:49 CDT CPT-63234 LS spine comp w obliq 11:50:11 CDT CPT-69949 Venipuncture Draw Fee 08:52:57 [employer] CPT-23950 Cystoscopy W/rem FB 18:37:28 CDT CPT-25447 Abd single AP View 16:18:40 CDT CPT-28466 Abd compl w upright 17:30:59 CDT
--- OUTSIDE RECORDS SUMMARY | 2016-11-22 16:33 | XMS REPORT | Clinical Summary ---
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 Inactive Capo Poe MD FLANK PAIN ICD-789.09 Inactive Capo Poe MD NAUSEA AND VOMITING ICD-787.01 Inactive Capo Poe MD 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 [...] cancer screening ICD-V76.44 Inactive 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 Inactive Capo Poe MD UTI ICD-599.0 Inactive Capo Poe MD Medication List Medication Instructions Start Date Stop Date Generic Name NDC Status Provider Patient Instruction CITALOPRAM HYDROBROMIDE 20 MG TABS 1 tablet by mouth daily CITALOPRAM HYDROBROMIDE 85864207027 Active Felisa Daphney RMA Active CLARITIN 5 MG ORAL CHEW 1 tab po q day LORATADINE 78647553604 Active Felisa Daphney RMA Active VIIBRYD STARTER PACK 10 & 20 MG ORAL KIT 1 po qd as directed 2015 VILAZODONE HCL 49039382439 No Longer Active Felisa Shelley RMMarva Active HYDROXYZINE HCL 25 MG TAB 1 po qHS PRN Insomnia HYDROXYZINE HCL 39797903660 Active Capo Poe MD Active LISINOPRIL 10 MG TABS 1 tablet by mouth daily LISINOPRIL 60150606213 Active Capo Poe MD Active LORTAB 7.5-325 MG ORAL TABS 1 po q 6 hr prn pain HYDROCODONE- ACETAMINOPHEN 69824041082 No Longer Active Capo Poe MD Active FLOMAX 0.4 MG CAPS Take one by mouth daily TAMSULOSIN HCL 59484455784 No Longer Active Capo Poe MD Active TRIAMCINOLONE ACETONIDE 0.1 % CREA Apply to affected areas TID for up to 2 weeks TRIAMCINOLONE ACETONIDE 91284876202 Active Capo Poe MD Active NICOTINE 14 MG/24HR TRANS PT24 Apply/Change q 24hr NICOTINE 20690616771 No Longer Active Capo Poe MD Active TRAMADOL HCL 50 MG TABS 1-2 tablets every 6 hours as needed for pain TRAMADOL HCL 10197868539 No Longer Active Capo Poe MD Active SERTRALINE HCL 100 MG ORAL TABS take 1 tab daily SERTRALINE HCL 76442224463 No Longer Active Capo Poe MD Active LISINOPRIL-HYDROCHLOROTHIAZIDE 10-12.5 MG TABS 0.5 tab by mouth daily LISINOPRIL-HYDROCHLOROTHIAZIDE 92591800976 No Longer Active Capo Poe MD Active OMEPRAZOLE 20 MG CPDR 1 tablet by mouth daily OMEPRAZOLE 77942785987 Active Capo Poe MD Active WELLBUTRIN SR 150 MG ORAL [id number]-TGF 1 po BID BUPROPION HCL 46461716350 No Longer Active Capo Poe MD Active MIRALAX PACK 1 po qd PRN Constipation POLYETHYLENE GLYCOL 3350 01274061513 Active Capo Poe MD Active DULERA 100-5 MCG/ACT AERO 2 puffs BID MOMETASONE FURO- FORMOTEROL FUM 31661797197 Active Capo Poe MD Active ZOLOFT 100 MG TABS 1 po daily SERTRALINE HCL 42538898295 No Longer Active Zoran Arzola MD Active FERROUS SULFATE 325 (65 FE) MG TABS 1 tablet by mouth daily FERROUS SULFATE 23396225243 No Longer Active Capo Poe MD Active HYDROCODONE-ACETAMINOPHEN 7.5-300 MG TABS take one every six hours HYDROCODONE-ACETAMINOPHEN 05506856765 No Longer Active Capo Poe MD Active TRIAMCINOLONE ACETONIDE 0.1 % OINT Apply to affected areas TID for up to 2 weeks TRIAMCINOLONE ACETONIDE 50051619102 No Longer Active Joe Vargas RN Active FERROUS SULFATE 325 (65 FE) MG TABS Take one by mouth daily FERROUS SULFATE 01237404693 No Longer Active Capo Poe MD Active TRIAMCINOLONE ACETONIDE 0.1 % OINT Apply to affected areas TID for up to 2 weeks TRIAMCINOLONE ACETONIDE 72569700407 No Longer Active Capo Poe MD Active ADULT ASPIRIN LOW STRENGTH 81 MG TBDP qd ASPIRIN 01321901083 Active Zoran Arzola MD Active ALEVE 220 MG TAB prn NAPROXEN SODIUM 20663960608 Active Capo Poe MD Active MACROBID 100 MG CAP 1 cap by mouth twice daily NITROFURANTOIN MONOHYD MACRO 25472595516 No Longer Active Dona Becker Active AZITHROMYCIN 250 MG TABS 2 po qd x 1 day, then 1 po qd x 4 days AZITHROMYCIN 15303346988 No Longer Active Capo Poe MD Active FISH OIL 500 MG CAPS by mouth twice a day OMEGA-3 FATTY ACIDS 55471212442 Active Capo Poe MD Active FLAXSEED OIL 1000 MG CAPS Take two by mouth daily FLAXSEED (LINSEED) 44811692783 Active Zoran Arzola MD Active RED YEAST RICE 600 MG CAPS Take two by mouth daily RED YEAST RICE EXTRACT 10945854339 Active Zoran Arzola MD Active MULTIVITAMINS CAPS Take one by mouth daily MULTIPLE VITAMIN 11571369641 Active Zoran Arzola MD Active ICAPS MV TABS 2 po daily MULTIPLE VITAMINS-MINERALS 10953289529 Active Jam Arnold DO Active MACROBID 100 MG CAP 1 cap by mouth twice daily MACROBID 100 MG CAP 0069663 NITROFURANTOIN MONOHYD MACRO Inactive FERROUS SULFATE 325 (65 FE) MG TABS Take one by mouth daily FERROUS SULFATE 325 (65 FE) MG TABS 164355 FERROUS SULFATE Inactive HYDROCODONE-ACETAMINOPHEN 7.5-300 MG TABS take one every six hours HYDROCODONE-ACETAMINOPHEN 7.5-300 MG TABS 841517 HYDROCODONE- ACETAMINOPHEN Inactive FERROUS SULFATE 325 (65 FE) MG TABS 1 tablet by mouth daily FERROUS SULFATE 325 (65 FE) MG TABS 867819 FERROUS SULFATE Inactive ZOLOFT 100 MG TABS 1 po daily ZOLOFT 100 MG TABS 959270 SERTRALINE HCL Inactive SERTRALINE HCL 100 MG ORAL TABS take 1 tab daily SERTRALINE HCL 100 MG ORAL TABS 687619 SERTRALINE HCL Inactive TRAMADOL HCL 50 MG TABS 1-2 tablets every 6 hours as needed for pain TRAMADOL HCL 50 MG TABS 981073 TRAMADOL HCL Inactive NICOTINE 14 MG/24HR TRANS PT24 Apply/Change q 24hr NICOTINE 14 MG/24HR TRANS PT24 396799 NICOTINE Inactive FLOMAX 0.4 MG CAPS Take one by mouth daily FLOMAX 0.4 MG CAPS 008519 TAMSULOSIN HCL Inactive LORTAB 7.5-325 MG ORAL TABS 1 po q 6 hr prn pain LORTAB 7.5- 325 MG ORAL TABS 282086 HYDROCODONE-ACETAMINOPHEN Inactive VIIBRYD STARTER PACK 10 & 20 MG ORAL KIT 1 po qd as directed 2015 VIIBRYD STARTER PACK 10 & 20 MG ORAL KIT VILAZODONE HCL Inactive AZITHROMYCIN 250 MG TABS 2 po qd x 1 day, then 1 po qd x 4 days AZITHROMYCIN 250 MG TABS 7700961 AZITHROMYCIN Inactive TRIAMCINOLONE ACETONIDE 0.1 % OINT Apply to affected areas TID for up to 2 weeks TRIAMCINOLONE ACETONIDE 0.1 % OINT 2994640 TRIAMCINOLONE ACETONIDE Inactive TRIAMCINOLONE ACETONIDE 0.1 % OINT Apply to affected areas TID for up to 2 weeks TRIAMCINOLONE ACETONIDE 0.1 % OINT 6945515 TRIAMCINOLONE ACETONIDE Inactive Advance Directives Directive Description [...] E&M - 3141-9 136.9 [lb_av] Weight Measured Diagnostic Results Date Name Value Unit Range Description Lab Report: Basic Metabolic Panel - Chemistry sodium, serum 139 mmol/L 031-494 8619/07/30 potassium, serum 4.7 mmol/L 3.5-5.2 chloride, serum [...] mg/g mg/g{creat} 0-29 sodium, serum 138 mmol/L 632-260 0246/03/18 carbon dioxide, venous blood 25.5 mmol/L 21.0-32.0 potassium, serum 4.6 mmol/L 3.5-5.2 chloride, serum 101 mmol/L 98-107 blood glucose 129 mg/dL 65-110 urea nitrogen, blood 20 mg/dL 7-18 creatinine, serum 1.87 mg/dL 0.55-1.30 alanine aminotransferase (SGPT), serum 26 U/L 12-78 aspartate aminotransferase (SGOT), serum 20 U/L 15-37 calcium, serum 8.8 mg/dL 8.5-10.1 bilirubin, serum, total 0.40 mg/dL 0.00-1.00 cholesterol, serum 251 mg/dL 549-425 1377/03/18 triglyceride, serum, fasting 135 mg/dL 30-200 HDL [...] 0.00-4.00 Encounters Code Encounter Date Provider Facility CPT-65850 Level 4 Est. Patient 13:44:30 CDT Capo Poe MD [facility] CPT-94540 Level 3 Est. Patient 14:59:32 TECHNICAL PROJECT COORDINATOR Capo Poe MD [facility] CPT-44537 Level 4 Est. Patient 10:46:15 TECHNICAL PROJECT COORDINATOR Capo Poe MD [facility] CPT-37007 Level 3 Est. Patient 11:00:53 CDT Capo Poe MD [facility] CPT-55431 Level 3 Est. Patient 09:39:35 CDT Capo Poe MD [facility] CPT-49712 Level 3 Est. Patient 09:27:01 CDT Capo Poe MD [facility] CPT-86563 Level 3 Est. Patient 18:37:08 CDT Zoran Arzola MD [facility] CPT-70427 Level 3 Est. Patient 15:00:28 CDT Capo Poe MD [facility] CPT-33818 Level 3 Est. Patient 08:20:19 CDT Zoran Arzola MD [facility] CPT-06598 Level 3 Est. Patient 09:22:21 CDT Capo Poe MD [facility] CPT-69011 Level 4 Est. Patient 10:21:30 TECHNICAL PROJECT COORDINATOR Capo Poe MD [facility] CPT-52856 Level 3 Est. Patient 17:08:51 TECHNICAL PROJECT COORDINATOR Zoran Arzola MD [facility] CPT-20996 Level 4 Est. Patient 09:44:42 CDT Capo Poe MD [facility] CPT-49781 Level 4 Est. Patient 10:39:29 CDT Capo Poe MD [facility] CPT-84314 Level 3 Est. Patient 17:45:23 CDT Zoran Arzola MD [facility] CPT-64363 Level 4 Est. Patient 08:50:44 CDT Capo Poe MD [facility] CPT-53631 Level 3 Est. Patient 10:39:51 TECHNICAL PROJECT COORDINATOR Capo Poe MD [facility] CPT-82411 Level 4 Est. Patient 09:44:24 TECHNICAL PROJECT COORDINATOR Capo Poe MD [facility] CPT-55808 Level 3 Est. Patient 14:48:42 TECHNICAL PROJECT COORDINATOR Zoran Arzola MD [facility] CPT-14103 Level 4 Est. Patient 10:24:02 CDT Capo Poe MD [facility] CPT-02011 Level 3 Est. Patient 15:42:00 CDT Maya DUKES [facility] CPT-98231 Level 4 Est. Patient 13:34:15 CDT Capo Poe MD [facility] CPT-83288 Level 3 Est. Patient 15:32:10 TECHNICAL PROJECT COORDINATOR Zoran Azrola MD [facility] CPT-91297 Level 3 New Patient 17:17:19 TECHNICAL PROJECT COORDINATOR Zoran Arzola MD [facility] CPT-02932 Level 4 Est. Patient 10:25:01 TECHNICAL PROJECT COORDINATOR Capo Poe MD [facility] CPT-54195 Level 3 Est. Patient 10:10:42 CDT Zoran Arzola MD [facility] CPT-31456 Level 3 Est. Patient 22:30:02 CDT Zoran Arzola MD [facility] CPT-47934 Level 4 Est. Patient 09:54:20 CDT Capo Poe MD [facility] CPT-02353 Level 3 Est. Patient 10:48:30 CDT Capo Poe MD [facility] CPT-27743 Level 3 Est. Patient 11:24:45 CDT Capo Poe MD [facility] CPT-24567 Level 3 Est. Patient 15:23:48 TECHNICAL PROJECT COORDINATOR Capo Poe MD [facility] CPT-74353 Level 3 Est. Patient 15:10:03 TECHNICAL PROJECT COORDINATOR Capo Poe MD [facility] CPT-06875 Level 3 Est. Patient 16:18:40 CDT Zoran Arzola MD [facility] Procedures Code Procedure Name Date Entry Date Standard Description CPT-36838 Venipuncture Draw Fee 09:32:34 CDT CPT-G0438 Initial Annual Wellness Exam 10:24:35 CDT CPT-50688 Venipuncture Draw Fee 09:46:29 CDT CPT-74266 Venipuncture Draw Fee 14:30:06 CDT CPT-98654 Venipuncture Draw Fee 10:58:22 CDT CPT-63583 Abd single AP View 08:32:00 CDT CPT-54018 Postop F/U Visit 21:13:08 CDT CPT-90378 Abd single AP View 15:50:24 CDT CPT-66281 Cystoscopy W/rem FB 15:21:28 CDT CPT-36849 Abd single AP View 14:06:45 CDT CPT-71661 Postop F/U Visit 09:48:32 CDT CPT-52072 Abd single AP View 13:58:26 CDT CPT-61193 Hip comp min 2V 10:27:18 TECHNICAL PROJECT COORDINATOR CPT-22695 Urine Dip (Floor Use Only) 13:41:01 TECHNICAL PROJECT COORDINATOR CPT-19804 Postop F/U Visit 11:17:48 CDT CPT-LR Lesion Removal 11:50:22 CDT CPT-OV Office Visit 11:50:22 CDT CPT-29856 Pneumovax 23 10:55:48 CDT CPT-94820 Administration single or combination vaccine inc oral 10 :55:48 CDT CPT-Cryo Cryotherapy 11:18:11 CDT CPT-OV Office Visit 11:18:11 CDT CPT-71847 LS spine AP and Lat 09:05:22 CDT CPT-53641 Bladder Scan 15:42:00 CDT CPT-92347 Cystoscopy 15:42:00 CDT CPT-OV Office Visit 16:37:19 TECHNICAL PROJECT COORDINATOR CPT-76243 Bladder Scan 15:32:10 TECHNICAL PROJECT COORDINATOR CPT-49191 Cystoscopy 15:32:10 TECHNICAL PROJECT COORDINATOR CPT-12946 Abd single AP View 14:05:59 TECHNICAL PROJECT COORDINATOR CPT-04157 Pill cam small bowel 09:48:39 TECHNICAL PROJECT COORDINATOR CPT-00937 Urine Dip (Floor Use Only) 17:17:19 TECHNICAL PROJECT COORDINATOR CPT-14568 Bladder Scan 17:17:19 TECHNICAL PROJECT COORDINATOR CPT-OV Office Visit 11:50:26 TECHNICAL PROJECT COORDINATOR CPT-49871 Bladder Scan 10:10:42 CDT CPT-34099 Venipuncture Draw Fee 09:14:04 CDT CPT-06327 Chest 2V Frontal and Lat 10:10:49 CDT CPT-32957 LS spine comp w obliq 11:50:11 CDT CPT-51076 Venipuncture Draw Fee 08:52:57 TECHNICAL PROJECT COORDINATOR CPT-21542 Cystoscopy W/rem FB 18:37:28 CDT CPT-26730 Abd single AP View 16:18:40 CDT CPT-60005 Abd compl w upright 17:30:59 CDT
--- OUTSIDE RECORDS SUMMARY | 2016-11-22 16:34 | XMS REPORT | Clinical Summary ---
Author Author Admin, MARGE Organization [facility] Address Unknown Phone Unavailable Allergies, [...] po qd PRN Constipation POLYETHYLENE GLYCOL 3350 61861380902 Active Capo Poe MD Active DULERA 100-5 MCG/ACT AERO 2 puffs BID MOMETASONE FURO- FORMOTEROL FUM 04219588001 Active Capo Poe MD Active SERTRALINE HCL 100 MG ORAL TABS take 1 tab daily SERTRALINE HCL 45024231183 Active Capo Poe MD Active ZOLOFT 100 MG TABS 1 po daily SERTRALINE HCL 32441371467 No Longer Active Zoran Arzola MD Active FERROUS SULFATE 325 (65 FE) MG TABS 1 tablet by mouth daily FERROUS SULFATE 55191040557 No Longer Active Capo Poe MD Active TRAMADOL HCL 50 MG TABS 1-2 tablets every 6 hours as needed for pain TRAMADOL HCL 65273069383 Active Capo Poe MD Active HYDROCODONE-ACETAMINOPHEN 7.5-300 MG TABS take one every six hours HYDROCODONE-ACETAMINOPHEN 45053099608 No Longer Active Capo Poe MD Active TRIAMCINOLONE ACETONIDE 0.1 % OINT Apply to affected areas TID for up to 2 weeks TRIAMCINOLONE ACETONIDE 61706735289 No Longer Active Joe Vargas RN Active FERROUS SULFATE 325 (65 FE) MG TABS Take one by mouth daily FERROUS SULFATE 25992643116 No Longer Active Capo Poe MD Active TRIAMCINOLONE ACETONIDE 0.1 % OINT Apply to affected areas TID for up to 2 weeks TRIAMCINOLONE ACETONIDE 91594227831 No Longer Active Capo Poe MD Active ADULT ASPIRIN LOW STRENGTH 81 MG TBDP qd ASPIRIN 17818655283 Active Zoran Arzola MD Active ALEVE 220 MG TAB prn NAPROXEN SODIUM 20617455674 Active Capo Poe MD Active LISINOPRIL-HYDROCHLOROTHIAZIDE 10-12.5 MG TABS 1 tab by mouth daily LISINOPRIL-HYDROCHLOROTHIAZIDE 75560102710 Active Capo Poe MD Active MACROBID 100 MG CAP 1 cap by mouth twice daily NITROFURANTOIN MONOHYD MACRO 95555489313 No Longer Active Dona Becker Active AZITHROMYCIN 250 MG TABS 2 po qd x 1 day, then 1 po qd x 4 days AZITHROMYCIN 79862177993 No Longer Active Capo Poe MD Active FISH OIL 500 MG CAPS by mouth twice a day OMEGA-3 FATTY ACIDS 60665000247 Active Capo Poe MD Active FLAXSEED OIL 1000 MG CAPS Take two by mouth daily FLAXSEED (LINSEED) 12108816565 Active Zoran Arzola MD Active RED YEAST RICE 600 MG CAPS Take two by mouth daily RED YEAST RICE EXTRACT 10187385097 Active Zoran Arzola MD Active MULTIVITAMINS CAPS Take one by mouth daily MULTIPLE VITAMIN 40939664257 Active Zoran Arzola MD Active ICAPS MV TABS 2 po daily MULTIPLE VITAMINS-MINERALS 56066833247 Active Jam Arnold DO Active MACROBID 100 MG CAP 1 cap by mouth twice daily MACROBID 100 MG CAP 578414 NITROFURANTOIN MONOHYD MACRO Inactive FERROUS SULFATE 325 (65 FE) MG TABS Take one by mouth daily FERROUS SULFATE 325 (65 FE) MG TABS 532088 FERROUS SULFATE Inactive HYDROCODONE-ACETAMINOPHEN 7.5-300 MG TABS take one every six hours HYDROCODONE-ACETAMINOPHEN 7.5-300 MG TABS 567089 HYDROCODONE- ACETAMINOPHEN Inactive FERROUS SULFATE 325 (65 FE) MG TABS 1 tablet by mouth daily FERROUS SULFATE 325 (65 FE) MG TABS 105230 FERROUS SULFATE Inactive ZOLOFT 100 MG TABS 1 po daily ZOLOFT 100 MG TABS 322384 SERTRALINE HCL Inactive AZITHROMYCIN 250 MG TABS 2 po qd x 1 day, then 1 po qd x 4 days AZITHROMYCIN 250 MG TABS 2673105 AZITHROMYCIN Inactive TRIAMCINOLONE ACETONIDE 0.1 % OINT Apply to affected areas TID for up to 2 weeks TRIAMCINOLONE ACETONIDE 0.1 % OINT 6911086 TRIAMCINOLONE ACETONIDE Inactive TRIAMCINOLONE ACETONIDE 0.1 % OINT Apply to affected areas TID for up to 2 weeks TRIAMCINOLONE ACETONIDE 0.1 % OINT 0205207 TRIAMCINOLONE ACETONIDE Inactive Advance Directives Directive Description [...] CBC - Chemistry cholesterol, serum 207 mg/dL 400-471 4870/02/11 triglyceride, serum, fasting 74 mg/dL 30-200 HDL cholesterol, serum 62 mg/dL 32-96 LDL cholesterol, serum 130 mg/dL 0-130 sodium, serum 144 mmol/L 427-924 2857/02/11 potassium, serum 5.0 mmol/L 3.5-5.2 chloride, serum [...] negative Encounters Code Encounter Date Provider Facility CPT-04558 Level 3 Est. Patient 15:00:28 CDT Capo Poe MD [facility] CPT-31425 Level 3 Est. Patient 08:20:19 CDT Zoran Arzola MD [facility] CPT-54000 Level 3 Est. Patient 09:22:21 CDT Capo Poe MD [facility] CPT-61670 Level 4 Est. Patient 10:21:30 CHILD CARE LEAD TEACHER Capo Poe MD [facility] CPT-71907 Level 3 Est. Patient 17:08:51 CHILD CARE LEAD TEACHER Zoran Arzola MD [facility] CPT-92220 Level 4 Est. Patient 09:44:42 CDT Capo Poe MD [facility] CPT-23407 Level 4 Est. Patient 10:39:29 CDT Capo Poe MD [facility] CPT-56699 Level 3 Est. Patient 17:45:23 CDT Zoran Arzola MD [facility] CPT-04368 Level 4 Est. Patient 08:50:44 CDT Capo Poe MD [facility] CPT-11617 Level 3 Est. Patient 10:39:51 CHILD CARE LEAD TEACHER Capo Poe MD [facility] CPT-44945 Level 4 Est. Patient 09:44:24 CHILD CARE LEAD TEACHER Capo Poe MD [facility] CPT-85257 Level 3 Est. Patient 14:48:42 CHILD CARE LEAD TEACHER Zoran Arzola MD [facility] CPT-31932 Level 4 Est. Patient 10:24:02 CDT Capo Poe MD [facility] CPT-97223 Level 3 Est. Patient 15:42:00 CDT Maya DUKES [facility] CPT-86085 Level 4 Est. Patient 13:34:15 CDT Capo Poe MD [facility] CPT-54391 Level 3 Est. Patient 15:32:10 CHILD CARE LEAD TEACHER Zoran Arzola MD [facility] CPT-91898 Level 3 New Patient 17:17:19 CHILD CARE LEAD TEACHER Zoran Arzola MD [facility] CPT-82639 Level 4 Est. Patient 10:25:01 CHILD CARE LEAD TEACHER Capo Poe MD [facility] CPT-80583 Level 3 Est. Patient 10:10:42 CDT Zoran Arzola MD [facility] CPT-78270 Level 3 Est. Patient 22:30:02 CDT Zoran Arzola MD [facility] CPT-87410 Level 4 Est. Patient 09:54:20 CDT Capo Poe MD [facility] CPT-45266 Level 3 Est. Patient 10:48:30 CDT Capo Poe MD [facility] CPT-04594 Level 3 Est. Patient 11:24:45 CDT Capo Poe MD [facility] CPT-25277 Level 3 Est. Patient 15:23:48 CHILD CARE LEAD TEACHER Capo Poe MD [facility] CPT-29694 Level 3 Est. Patient 15:10:03 CHILD CARE LEAD TEACHER Capo Poe MD [facility] CPT-57143 Level 3 Est. Patient 16:18:40 CDT Zoran Arzola MD [facility] Procedures Code Procedure Name Date Entry Date Standard Description CPT-64365 Postop F/U Visit 21:13:08 CDT CPT-03442 Abd single AP View 15:50:24 CDT CPT-33499 Cystoscopy W/rem FB 15:21:28 CDT CPT-74964 Abd single AP View 14:06:45 CDT CPT-46764 Postop F/U Visit 09:48:32 CDT CPT-06356 Abd single AP View 13:58:26 CDT CPT-88157 Hip comp min 2V 10:27:18 CHILD CARE LEAD TEACHER CPT-28869 Urine Dip (Floor Use Only) 13:41:01 CHILD CARE LEAD TEACHER CPT-25442 Postop F/U Visit 11:17:48 CDT CPT-LR Lesion Removal 11:50:22 CDT CPT-OV Office Visit 11:50:22 CDT CPT-97750 Pneumovax 23 10:55:48 CDT CPT-94759 Administration single or combination vaccine inc oral 10 :55:48 CDT CPT-Cryo Cryotherapy 11:18:11 CDT CPT-OV Office Visit 11:18:11 CDT CPT-63030 LS spine AP and Lat 09:05:22 CDT CPT-03721 Bladder Scan 15:42:00 CDT CPT-78113 Cystoscopy 15:42:00 CDT CPT-OV Office Visit 16:37:19 CHILD CARE LEAD TEACHER CPT-28710 Bladder Scan 15:32:10 CHILD CARE LEAD TEACHER CPT-60316 Cystoscopy 15:32:10 CHILD CARE LEAD TEACHER CPT-67913 Abd single AP View 14:05:59 CHILD CARE LEAD TEACHER CPT-56147 Pill cam small bowel 09:48:39 CHILD CARE LEAD TEACHER CPT-77460 Urine Dip (Floor Use Only) 17:17:19 CHILD CARE LEAD TEACHER CPT-22284 Bladder Scan 17:17:19 CHILD CARE LEAD TEACHER CPT-OV Office Visit 11:50:26 CHILD CARE LEAD TEACHER CPT-80023 Bladder Scan 10:10:42 CDT CPT-98448 Venipuncture Draw Fee 09:14:04 CDT CPT-78626 Chest 2V Frontal and Lat 10:10:49 CDT CPT-91946 LS spine comp w obliq 11:50:11 CDT CPT-98662 Venipuncture Draw Fee 08:52:57 CHILD CARE LEAD TEACHER CPT-85168 Cystoscopy W/rem FB 18:37:28 CDT CPT-59388 Abd single AP View 16:18:40 CDT CPT-12478 Abd compl w upright 17:30:59 CDT
--- OUTSIDE RECORDS SUMMARY | 2016-11-22 16:35 | XMS REPORT | Clinical Summary ---
Author Author Admin, QIE Organization [employer] Address Unknown Phone Unavailable Allergies, Adverse Reactions, [...] collapse Iron deficiency 280.9 Active Jasmin Dixon [facility] Iron deficiency anemia, unspecified NAUSEA AND VOMITING [...] 1 tab po twice daily FERROUS SULFATE 76791051009 Active Jasmin TEIXEIRA Active D ORAL TABS 2000 iu weekly D ORAL TABS Active Capo Poe MD Active CITALOPRAM HYDROBROMIDE 20 MG TABS 1 tablet by mouth daily CITALOPRAM HYDROBROMIDE 04902607643 Active Capo Poe MD Active CLARITIN 5 MG ORAL CHEW 1 tab po q day LORATADINE 91073941540 Active Felisa TEIXEIRA Active VIIBRYD STARTER PACK 10 & 20 MG ORAL KIT 1 po qd as directed 2015 VILAZODONE HCL 11629337840 No Longer Active Felisa TEIXEIRA Active HYDROXYZINE HCL 25 MG TAB 1 po qHS PRN Insomnia HYDROXYZINE HCL 51712445992 Active Capo Poe MD Active LISINOPRIL 10 MG TABS 1 tablet by mouth daily LISINOPRIL 50030951546 Active Capo Poe MD Active LORTAB 7.5-325 MG ORAL TABS 1 po q 6 hr prn pain HYDROCODONE- ACETAMINOPHEN 90399834719 No Longer Active Capo Poe MD Active FLOMAX 0.4 MG CAPS Take one by mouth daily TAMSULOSIN HCL 16308649985 No Longer Active Capo Poe MD Active TRIAMCINOLONE ACETONIDE 0.1 % CREA Apply to affected areas TID for up to 2 weeks TRIAMCINOLONE ACETONIDE 29474720275 Active Capo Poe MD Active NICOTINE 14 MG/24HR TRANS PT24 Apply/Change q 24hr NICOTINE 40505753248 No Longer Active Capo Poe MD Active TRAMADOL HCL 50 MG TABS 1-2 tablets every 6 hours as needed for pain TRAMADOL HCL 80730010300 No Longer Active Capo Poe MD Active SERTRALINE HCL 100 MG ORAL TABS take 1 tab daily SERTRALINE HCL 93816088556 No Longer Active Capo Poe MD Active LISINOPRIL-HYDROCHLOROTHIAZIDE 10-12.5 MG TABS 0.5 tab by mouth daily LISINOPRIL-HYDROCHLOROTHIAZIDE 77063922823 No Longer Active Capo Poe MD Active OMEPRAZOLE 20 MG CPDR 1 tablet by mouth daily OMEPRAZOLE 84362952740 Active Capo Poe MD Active WELLBUTRIN SR 150 MG ORAL [id number] 1 po BID BUPROPION HCL 94006559585 No Longer Active Capo Poe MD Active MIRALAX PACK 1 po qd PRN Constipation POLYETHYLENE GLYCOL 3350 38379142813 Active Capo Poe MD Active DULERA 100-5 MCG/ACT AERO 2 puffs BID MOMETASONE FURO- FORMOTEROL FUM 81464021497 Active Capo Poe MD Active ZOLOFT 100 MG TABS 1 po daily SERTRALINE HCL 36354156432 No Longer Active Zoran Arzola MD Active FERROUS SULFATE 325 (65 FE) MG TABS 1 tablet by mouth daily FERROUS SULFATE 18990208177 No Longer Active Capo Poe MD Active HYDROCODONE-ACETAMINOPHEN 7.5-300 MG TABS take one every six hours HYDROCODONE-ACETAMINOPHEN 76547386618 No Longer Active Capo Poe MD Active TRIAMCINOLONE ACETONIDE 0.1 % OINT Apply to affected areas TID for up to 2 weeks TRIAMCINOLONE ACETONIDE 38340917057 No Longer Active Joe Vargas RN Active FERROUS SULFATE 325 (65 FE) MG TABS Take one by mouth daily FERROUS SULFATE 40567410213 No Longer Active Capo Poe MD Active TRIAMCINOLONE ACETONIDE 0.1 % OINT Apply to affected areas TID for up to 2 weeks TRIAMCINOLONE ACETONIDE 29431966533 No Longer Active Capo Poe MD Active ADULT ASPIRIN LOW STRENGTH 81 MG TBDP qd ASPIRIN 01370848317 Active Zoran Arzola MD Active ALEVE 220 MG TAB prn NAPROXEN SODIUM 47358429747 Active Capo Poe MD Active MACROBID 100 MG CAP 1 cap by mouth twice daily NITROFURANTOIN MONOHYD MACRO 93195189206 No Longer Active Dona Becker Active AZITHROMYCIN 250 MG TABS 2 po qd x 1 day, then 1 po qd x 4 days AZITHROMYCIN 86346784645 No Longer Active Capo Poe MD Active FISH OIL 500 MG CAPS by mouth twice a day OMEGA-3 FATTY ACIDS 99976256947 Active Capo Poe MD Active FLAXSEED OIL 1000 MG CAPS Take two by mouth daily FLAXSEED (LINSEED) 08504419600 Active Zoran Arzola MD Active RED YEAST RICE 600 MG CAPS Take two by mouth daily RED YEAST RICE EXTRACT 70969946872 Active Zoran Arzola MD Active MULTIVITAMINS CAPS Take one by mouth daily MULTIPLE VITAMIN 82484007771 Active Zoran Arzola MD Active ICAPS MV TABS 2 po daily MULTIPLE VITAMINS-MINERALS 21166320466 Active Jam Arnold DO Active MACROBID 100 MG CAP 1 cap by mouth twice daily MACROBID 100 MG CAP 7034482 NITROFURANTOIN MONOHYD MACRO Inactive FERROUS SULFATE 325 (65 FE) MG TABS Take one by mouth daily FERROUS SULFATE 325 (65 FE) MG TABS 798786 FERROUS SULFATE Inactive HYDROCODONE-ACETAMINOPHEN 7.5-300 MG TABS take one every six hours HYDROCODONE-ACETAMINOPHEN 7.5-300 MG TABS 844640 HYDROCODONE- ACETAMINOPHEN Inactive FERROUS SULFATE 325 (65 FE) MG TABS 1 tablet by mouth daily FERROUS SULFATE 325 (65 FE) MG TABS 888552 FERROUS SULFATE Inactive ZOLOFT 100 MG TABS 1 po daily ZOLOFT 100 MG TABS 833397 SERTRALINE HCL Inactive SERTRALINE HCL 100 MG ORAL TABS take 1 tab daily SERTRALINE HCL 100 MG ORAL TABS 152979 SERTRALINE HCL Inactive TRAMADOL HCL 50 MG TABS 1-2 tablets every 6 hours as needed for pain TRAMADOL HCL 50 MG TABS 799112 TRAMADOL HCL Inactive NICOTINE 14 MG/24HR TRANS PT24 Apply/Change q 24hr NICOTINE 14 MG/24HR TRANS PT24 701059 NICOTINE Inactive FLOMAX 0.4 MG CAPS Take one by mouth daily FLOMAX 0.4 MG CAPS 630284 TAMSULOSIN HCL Inactive LORTAB 7.5-325 MG ORAL TABS 1 po q 6 hr prn pain LORTAB 7.5- 325 MG ORAL TABS 114891 HYDROCODONE-ACETAMINOPHEN Inactive VIIBRYD STARTER PACK 10 & 20 MG ORAL KIT 1 po qd as directed 2015 VIIBRYD STARTER PACK 10 & 20 MG ORAL KIT VILAZODONE HCL Inactive AZITHROMYCIN 250 MG TABS 2 po qd x 1 day, then 1 po qd x 4 days AZITHROMYCIN 250 MG TABS 2959016 AZITHROMYCIN Inactive TRIAMCINOLONE ACETONIDE 0.1 % OINT Apply to affected areas TID for up to 2 weeks TRIAMCINOLONE ACETONIDE 0.1 % OINT 9175580 TRIAMCINOLONE ACETONIDE Inactive TRIAMCINOLONE ACETONIDE 0.1 % OINT Apply to affected areas TID for up to 2 weeks TRIAMCINOLONE ACETONIDE 0.1 % OINT 8897906 TRIAMCINOLONE ACETONIDE Inactive Advance Directives Directive Description [...] ... - Chemistry sodium, serum 141 mmol/L 043-532 1438/01/27 carbon dioxide, venous blood 29.7 mmol/L 21.0-32.0 [...] ... - Chemistry sodium, serum 138 mmol/L 204-938 8296/03/18 carbon dioxide, venous blood 25.5 mmol/L 21.0-32.0 potassium, serum 4.6 mmol/L 3.5-5.2 chloride, serum 101 mmol/L 98-107 blood glucose 129 mg/dL 65-110 urea nitrogen, blood 20 mg/dL 7-18 creatinine, serum 1.87 mg/dL 0.55-1.30 alanine aminotransferase (SGPT), serum 26 U/L 12-78 aspartate aminotransferase (SGOT), serum 20 U/L 15-37 calcium, serum 8.8 mg/dL 8.5-10.1 bilirubin, serum, total 0.40 mg/dL 0.00-1.00 cholesterol, serum 251 mg/dL 889-834 0431/03/18 triglyceride, serum, fasting 135 mg/dL 30-200 HDL [...] 0-19 Encounters Code Encounter Date Provider Facility CPT-86035 Level 4 Est. Patient 09:26:11 SPINNING MACHINE OPERATOR Capo Poe MD [facility] CPT-36779 Level 4 Est. Patient 08:53:08 CDT Capo Peo MD [facility] CPT-01226 Level 4 Est. Patient 10:22:57 CDT Capo Poe MD [facility] CPT-23369 Level 4 Est. Patient 13:44:30 CDT Capo Poe MD [facility] CPT-06143 Level 3 Est. Patient 14:59:32 SPINNING MACHINE OPERATOR Capo Poe MD [facility] CPT-88034 Level 4 Est. Patient 10:46:15 SPINNING MACHINE OPERATOR Capo Poe MD [facility] CPT-00282 Level 3 Est. Patient 11:00:53 CDT Capo Poe MD [facility] CPT-32071 Level 3 Est. Patient 09:39:35 CDT Capo Poe MD [facility] CPT-78401 Level 3 Est. Patient 09:27:01 CDT Capo Poe MD [facility] CPT-58229 Level 3 Est. Patient 18:37:08 CDT Zoran Arzola MD [facility] CPT-56169 Level 3 Est. Patient 15:00:28 CDT Capo Poe MD [facility] CPT-04646 Level 3 Est. Patient 08:20:19 CDT Zoran Arzola MD [facility] CPT-94910 Level 3 Est. Patient 09:22:21 CDT Capo Poe MD [facility] CPT-46994 Level 4 Est. Patient 10:21:30 SPINNING MACHINE OPERATOR Capo Poe MD [facility] CPT-52299 Level 3 Est. Patient 17:08:51 SPINNING MACHINE OPERATOR Zoran Arzola MD [facility] CPT-53018 Level 4 Est. Patient 09:44:42 CDT Capo Poe MD [facility] CPT-07125 Level 4 Est. Patient 10:39:29 CDT Capo Poe MD [facility] CPT-87749 Level 3 Est. Patient 17:45:23 CDT Zoran Arzola MD [facility] CPT-62875 Level 4 Est. Patient 08:50:44 CDT Capo Poe MD [facility] CPT-03006 Level 3 Est. Patient 10:39:51 SPINNING MACHINE OPERATOR Capo Poe MD [facility] CPT-33660 Level 4 Est. Patient 09:44:24 SPINNING MACHINE OPERATOR Capo Poe MD [facility] CPT-39319 Level 3 Est. Patient 14:48:42 SPINNING MACHINE OPERATOR Zoran Arzola MD [facility] CPT-08721 Level 4 Est. Patient 10:24:02 CDT Capo Poe MD [facility] CPT-67675 Level 3 Est. Patient 15:42:00 CDT Maya DUKES [facility] CPT-01041 Level 4 Est. Patient 13:34:15 CDT Capo Poe MD [facility] CPT-42019 Level 3 Est. Patient 15:32:10 SPINNING MACHINE OPERATOR Zoran Arzola MD [facility] CPT-53808 Level 3 New Patient 17:17:19 SPINNING MACHINE OPERATOR Zoran Arzola MD [facility] CPT-75371 Level 4 Est. Patient 10:25:01 SPINNING MACHINE OPERATOR Capo Poe MD [facility] CPT-33288 Level 3 Est. Patient 10:10:42 CDT Zoran Arzola MD [facility] CPT-70211 Level 3 Est. Patient 22:30:02 CDT Zoran Arzola MD [facility] CPT-46467 Level 4 Est. Patient 09:54:20 CDT Capo Poe MD [facility] CPT-06754 Level 3 Est. Patient 10:48:30 CDT Capo Poe MD [facility] CPT-63615 Level 3 Est. Patient 11:24:45 CDT Capo Poe MD [facility] CPT-79568 Level 3 Est. Patient 15:23:48 SPINNING MACHINE OPERATOR Capo Poe MD [facility] CPT-14398 Level 3 Est. Patient 15:10:03 SPINNING MACHINE OPERATOR Capo Poe MD [facility] CPT-20198 Level 3 Est. Patient 16:18:40 CDT Zoran Arzola MD [facility] Procedures Code Procedure Name Date Entry Date Standard Description CPT-49213 TPSA - LAB USE ONLY 10:37:52 SPINNING MACHINE OPERATOR CPT-20961 TSH - LAB USE ONLY 10:37:51 SPINNING MACHINE OPERATOR CPT-27456 CMP - LAB USE ONLY 10:37:51 SPINNING MACHINE OPERATOR CPT-50247 CBC with Diff - LAB USE ONLY 10:37:51 SPINNING MACHINE OPERATOR CPT-61383 Venipuncture Draw Fee 10:37:51 SPINNING MACHINE OPERATOR CPT-000 Give Pneumovax 10:39:30 CDT CPT-27323 Venipuncture Draw Fee 09:32:34 CDT CPT-G0438 Initial Annual Wellness Exam 10:24:35 CDT CPT-94295 Venipuncture Draw Fee 09:46:29 CDT CPT-84853 Venipuncture Draw Fee 14:30:06 CDT CPT-62261 Venipuncture Draw Fee 10:58:22 CDT CPT-80628 Abd single AP View 08:32:00 CDT CPT-94239 Postop F/U Visit 21:13:08 CDT CPT-28272 Abd single AP View 15:50:24 CDT CPT-81176 Cystoscopy W/rem FB 15:21:28 CDT CPT-43605 Abd single AP View 14:06:45 CDT CPT-52147 Postop F/U Visit 09:48:32 CDT CPT-79460 Abd single AP View 13:58:26 CDT CPT-01864 Hip comp min 2V 10:27:18 SPINNING MACHINE OPERATOR CPT-10793 Urine Dip (Floor Use Only) 13:41:01 SPINNING MACHINE OPERATOR CPT-10673 Postop F/U Visit 11:17:48 CDT CPT-LR Lesion Removal 11:50:22 CDT CPT-OV Office Visit 11:50:22 CDT CPT-60887 Pneumovax 23 10:55:48 CDT CPT-86124 Administration single or combination vaccine inc oral 10 :55:48 CDT CPT-Cryo Cryotherapy 11:18:11 CDT CPT-OV Office Visit 11:18:11 CDT CPT-46998 LS spine AP and Lat 09:05:22 CDT CPT-88384 Bladder Scan 15:42:00 CDT CPT-90480 Cystoscopy 15:42:00 CDT CPT-OV Office Visit 16:37:19 SPINNING MACHINE OPERATOR CPT-60616 Bladder Scan 15:32:10 SPINNING MACHINE OPERATOR CPT-67801 Cystoscopy 15:32:10 SPINNING MACHINE OPERATOR CPT-62465 Abd single AP View 14:05:59 SPINNING MACHINE OPERATOR CPT-42501 Pill cam small bowel 09:48:39 SPINNING MACHINE OPERATOR CPT-30731 Urine Dip (Floor Use Only) 17:17:19 SPINNING MACHINE OPERATOR CPT-63823 Bladder Scan 17:17:19 SPINNING MACHINE OPERATOR CPT-OV Office Visit 11:50:26 SPINNING MACHINE OPERATOR CPT-22179 Bladder Scan 10:10:42 CDT CPT-28426 Venipuncture Draw Fee 09:14:04 CDT CPT-88350 Chest 2V Frontal and Lat 10:10:49 CDT CPT-42587 LS spine comp w obliq 11:50:11 CDT CPT-50748 Venipuncture Draw Fee 08:52:57 SPINNING MACHINE OPERATOR CPT-62270 Cystoscopy W/rem FB 18:37:28 CDT CPT-26971 Abd single AP View 16:18:40 CDT CPT-36173 Abd compl w upright 17:30:59 CDT
--- OUTSIDE RECORDS SUMMARY | 2016-11-22 16:37 | XMS REPORT | Clinical Summary ---
Author Author Admin, QIE Organization [employer] Address Unknown Phone Unavailable Allergies, Adverse Reactions, [...] essential hypertension HEALTH SCREENING V70.0 Resolved Faisal aNgy MD Routine general medical examination at a [...] Capo Poe MD Hematuria ICD-599.70 Inactive Capo oPe MD Sciatica, right ICD-724.3 Clyde Poe MD [...] 1 tablet by mouth daily CITALOPRAM HYDROBROMIDE 98638525071 Active Felisamario TEIXEIRA Active CLARITIN 5 MG ORAL CHEW 1 tab po q day LORATADINE 14925897423 Active Felisa Daphney RMMarva Active VIIBRYD STARTER PACK 10 & 20 MG ORAL KIT 1 po qd as directed 2015 VILAZODONE HCL 38243398495 No Longer Active Felisa TEIXEIRA Active HYDROXYZINE HCL 25 MG TAB 1 po qHS PRN Insomnia HYDROXYZINE HCL 70715679588 Active Capo Poe MD Active LISINOPRIL 10 MG TABS 1 tablet by mouth daily LISINOPRIL 03194272625 Active Capo Poe MD Active LORTAB 7.5-325 MG ORAL TABS 1 po q 6 hr prn pain HYDROCODONE- ACETAMINOPHEN 78133289591 No Longer Active Capo Poe MD Active FLOMAX 0.4 MG CAPS Take one by mouth daily TAMSULOSIN HCL 00123589125 No Longer Active Capo Poe MD Active TRIAMCINOLONE ACETONIDE 0.1 % CREA Apply to affected areas TID for up to 2 weeks TRIAMCINOLONE ACETONIDE 77355972843 Active Capo Poe MD Active NICOTINE 14 MG/24HR TRANS PT24 Apply/Change q 24hr NICOTINE 23087742550 No Longer Active Capo Poe MD Active TRAMADOL HCL 50 MG TABS 1-2 tablets every 6 hours as needed for pain TRAMADOL HCL 50092591421 No Longer Active Capo Poe MD Active SERTRALINE HCL 100 MG ORAL TABS take 1 tab daily SERTRALINE HCL 81551594224 No Longer Active Capo Poe MD Active LISINOPRIL-HYDROCHLOROTHIAZIDE 10-12.5 MG TABS 0.5 tab by mouth daily LISINOPRIL-HYDROCHLOROTHIAZIDE 95595649281 No Longer Active Capo Poe MD Active OMEPRAZOLE 20 MG CPDR 1 tablet by mouth daily OMEPRAZOLE 34950473274 Active Capo Poe MD Active WELLBUTRIN SR 150 MG ORAL [id number] 1 po BID BUPROPION HCL 61692433216 No Longer Active Capo Poe MD Active MIRALAX PACK 1 po qd PRN Constipation POLYETHYLENE GLYCOL 3350 14358675670 Active Capo Poe MD Active DULERA 100-5 MCG/ACT AERO 2 puffs BID MOMETASONE FURO- FORMOTEROL FUM 50363821307 Active Capo Poe MD Active ZOLOFT 100 MG TABS 1 po daily SERTRALINE HCL 42805299678 No Longer Active Zoran Arzola MD Active FERROUS SULFATE 325 (65 FE) MG TABS 1 tablet by mouth daily FERROUS SULFATE 16241778498 No Longer Active Capo Poe MD Active HYDROCODONE-ACETAMINOPHEN 7.5-300 MG TABS take one every six hours HYDROCODONE-ACETAMINOPHEN 50223092766 No Longer Active Capo Poe MD Active TRIAMCINOLONE ACETONIDE 0.1 % OINT Apply to affected areas TID for up to 2 weeks TRIAMCINOLONE ACETONIDE 31480408036 No Longer Active Joe Vargas RN Active FERROUS SULFATE 325 (65 FE) MG TABS Take one by mouth daily FERROUS SULFATE 94601041379 No Longer Active Capo Poe MD Active TRIAMCINOLONE ACETONIDE 0.1 % OINT Apply to affected areas TID for up to 2 weeks TRIAMCINOLONE ACETONIDE 65664680535 No Longer Active Capo Poe MD Active ADULT ASPIRIN LOW STRENGTH 81 MG TBDP qd ASPIRIN 94236399567 Active Zoran Arzola MD Active ALEVE 220 MG TAB prn NAPROXEN SODIUM 02548120731 Active Capo Poe MD Active MACROBID 100 MG CAP 1 cap by mouth twice daily NITROFURANTOIN MONOHYD MACRO 32959612925 No Longer Active Dona Becker Active AZITHROMYCIN 250 MG TABS 2 po qd x 1 day, then 1 po qd x 4 days AZITHROMYCIN 69897444121 No Longer Active Capo Poe MD Active FISH OIL 500 MG CAPS by mouth twice a day OMEGA-3 FATTY ACIDS 38347420070 Active Capo Poe MD Active FLAXSEED OIL 1000 MG CAPS Take two by mouth daily FLAXSEED (LINSEED) 47450098246 Active Zoran Arzola MD Active RED YEAST RICE 600 MG CAPS Take two by mouth daily RED YEAST RICE EXTRACT 08146535265 Active Zoran Arzola MD Active MULTIVITAMINS CAPS Take one by mouth daily MULTIPLE VITAMIN 86009851767 Elza Arzola MD Active ICAPS MV TABS 2 po daily MULTIPLE VITAMINS-MINERALS 11365847186 Active Jam Arnold DO Active MACROBID 100 MG CAP 1 cap by mouth twice daily MACROBID 100 MG CAP 3607605 NITROFURANTOIN MONOHYD MACRO Inactive FERROUS SULFATE 325 (65 FE) MG TABS Take one by mouth daily FERROUS SULFATE 325 (65 FE) MG TABS 335743 FERROUS SULFATE Inactive HYDROCODONE-ACETAMINOPHEN 7.5-300 MG TABS take one every six hours HYDROCODONE-ACETAMINOPHEN 7.5-300 MG TABS 907196 HYDROCODONE- ACETAMINOPHEN Inactive FERROUS SULFATE 325 (65 FE) MG TABS 1 tablet by mouth daily FERROUS SULFATE 325 (65 FE) MG TABS 486968 FERROUS SULFATE Inactive ZOLOFT 100 MG TABS 1 po daily ZOLOFT 100 MG TABS 025650 SERTRALINE HCL Inactive SERTRALINE HCL 100 MG ORAL TABS take 1 tab daily SERTRALINE HCL 100 MG ORAL TABS 881179 SERTRALINE HCL Inactive TRAMADOL HCL 50 MG TABS 1-2 tablets every 6 hours as needed for pain TRAMADOL HCL 50 MG TABS 831695 TRAMADOL HCL Inactive NICOTINE 14 MG/24HR TRANS PT24 Apply/Change q 24hr NICOTINE 14 MG/24HR TRANS PT24 053896 NICOTINE Inactive FLOMAX 0.4 MG CAPS Take one by mouth daily FLOMAX 0.4 MG CAPS 329227 TAMSULOSIN HCL Inactive LORTAB 7.5-325 MG ORAL TABS 1 po q 6 hr prn pain LORTAB 7.5- 325 MG ORAL TABS 366054 HYDROCODONE-ACETAMINOPHEN Inactive VIIBRYD STARTER PACK 10 & 20 MG ORAL KIT 1 po qd as directed 2015 VIIBRYD STARTER PACK 10 & 20 MG ORAL KIT VILAZODONE HCL Inactive AZITHROMYCIN 250 MG TABS 2 po qd x 1 day, then 1 po qd x 4 days AZITHROMYCIN 250 MG TABS 0111743 AZITHROMYCIN Inactive TRIAMCINOLONE ACETONIDE 0.1 % OINT Apply to affected areas TID for up to 2 weeks TRIAMCINOLONE ACETONIDE 0.1 % OINT 4002491 TRIAMCINOLONE ACETONIDE Inactive TRIAMCINOLONE ACETONIDE 0.1 % OINT Apply to affected areas TID for up to 2 weeks TRIAMCINOLONE ACETONIDE 0.1 % OINT 9590954 TRIAMCINOLONE ACETONIDE Inactive Advance Directives Directive Description [...] Panel - Chemistry sodium, serum 139 mmol/L 152-734 3999/07/30 potassium, serum 4.7 mmol/L 3.5-5.2 chloride, serum [...] mg/g mg/g{creat} 0-29 sodium, serum 138 mmol/L 493-786 4755/03/18 carbon dioxide, venous blood 25.5 mmol/L 21.0-32.0 potassium, serum 4.6 mmol/L 3.5-5.2 chloride, serum 101 mmol/L 98-107 blood glucose 129 mg/dL 65-110 urea nitrogen, blood 20 mg/dL 7-18 creatinine, serum 1.87 mg/dL 0.55-1.30 alanine aminotransferase (SGPT), serum 26 U/L 12-78 aspartate aminotransferase (SGOT), serum 20 U/L 15-37 calcium, serum 8.8 mg/dL 8.5-10.1 bilirubin, serum, total 0.40 mg/dL 0.00-1.00 cholesterol, serum 251 mg/dL 507-856 2721/03/18 triglyceride, serum, fasting 135 mg/dL 30-200 HDL [...] 0.00-4.00 Encounters Code Encounter Date Provider Facility CPT-62739 Level 4 Est. Patient 10:22:57 CDT Capo Poe MD [facility] CPT-61014 Level 4 Est. Patient 13:44:30 CDT Capo Poe MD [facility] CPT-13413 Level 3 Est. Patient 14:59:32 FLOOR SURFACER Capo Poe MD [facility] CPT-99618 Level 4 Est. Patient 10:46:15 FLOOR SURFACER Capo Poe MD [facility] CPT-88579 Level 3 Est. Patient 11:00:53 CDT Capo Poe MD [facility] CPT-91576 Level 3 Est. Patient 09:39:35 CDT Capo Poe MD [facility] CPT-59024 Level 3 Est. Patient 09:27:01 CDT Capo Poe MD [facility] CPT-15018 Level 3 Est. Patient 18:37:08 CDT Zoran Arzola MD [facility] CPT-07915 Level 3 Est. Patient 15:00:28 CDT Capo Poe MD [facility] CPT-38005 Level 3 Est. Patient 08:20:19 CDT Zoran Arzola MD [facility] CPT-14188 Level 3 Est. Patient 09:22:21 CDT Capo Poe MD [facility] CPT-47663 Level 4 Est. Patient 10:21:30 FLOOR SURFACER Capo Poe MD [facility] CPT-11197 Level 3 Est. Patient 17:08:51 FLOOR SURFACER Zoran Arzola MD [facility] CPT-59490 Level 4 Est. Patient 09:44:42 CDT Capo Poe MD [facility] CPT-05766 Level 4 Est. Patient 10:39:29 CDT Capo Poe MD [facility] CPT-70919 Level 3 Est. Patient 17:45:23 CDT Zoran Arzola MD [facility] CPT-71925 Level 4 Est. Patient 08:50:44 CDT Capo Poe MD [facility] CPT-98784 Level 3 Est. Patient 10:39:51 FLOOR SURFACER Capo Poe MD [facility] CPT-09052 Level 4 Est. Patient 09:44:24 FLOOR SURFACER Capo Poe MD [facility] CPT-90421 Level 3 Est. Patient 14:48:42 FLOOR SURFACER Zoran Arzola MD [facility] CPT-98707 Level 4 Est. Patient 10:24:02 CDT Capo Poe MD [facility] CPT-93557 Level 3 Est. Patient 15:42:00 CDT Maya DUKES [facility] CPT-37517 Level 4 Est. Patient 13:34:15 CDT Capo Poe MD [facility] CPT-87291 Level 3 Est. Patient 15:32:10 FLOOR SURFACER Zoran Arzola MD [facility] CPT-23363 Level 3 New Patient 17:17:19 FLOOR SURFACER Zoran Arzola MD [facility] CPT-55995 Level 4 Est. Patient 10:25:01 FLOOR SURFACER Capo Poe MD [facility] CPT-10710 Level 3 Est. Patient 10:10:42 CDT Zoran Arzola MD [facility] CPT-45606 Level 3 Est. Patient 22:30:02 CDT Zoran Arzola MD [facility] CPT-44312 Level 4 Est. Patient 09:54:20 CDT Capo Poe MD [facility] CPT-56240 Level 3 Est. Patient 10:48:30 CDT Capo Poe MD [facility] CPT-42230 Level 3 Est. Patient 11:24:45 CDT Capo Poe MD [facility] CPT-27071 Level 3 Est. Patient 15:23:48 FLOOR SURFACER Capo Poe MD [facility] CPT-73884 Level 3 Est. Patient 15:10:03 FLOOR SURFACER Capo Poe MD [facility] CPT-21292 Level 3 Est. Patient 16:18:40 CDT Zoran Arzola MD [facility] Procedures Code Procedure Name Date Entry Date Standard Description CPT-73635 Venipuncture Draw Fee 09:32:34 CDT CPT-G0438 Initial Annual Wellness Exam 10:24:35 CDT CPT-08208 Venipuncture Draw Fee 09:46:29 CDT CPT-64937 Venipuncture Draw Fee 14:30:06 CDT CPT-43338 Venipuncture Draw Fee 10:58:22 CDT CPT-48683 Abd single AP View 08:32:00 CDT CPT-04728 Postop F/U Visit 21:13:08 CDT CPT-75006 Abd single AP View 15:50:24 CDT CPT-31361 Cystoscopy W/rem FB 15:21:28 CDT CPT-22721 Abd single AP View 14:06:45 CDT CPT-27859 Postop F/U Visit 09:48:32 CDT CPT-51364 Abd single AP View 13:58:26 CDT CPT-15777 Hip comp min 2V 10:27:18 FLOOR SURFACER CPT-51757 Urine Dip (Floor Use Only) 13:41:01 FLOOR SURFACER CPT-37323 Postop F/U Visit 11:17:48 CDT CPT-LR Lesion Removal 11:50:22 CDT CPT-OV Office Visit 11:50:22 CDT CPT-19496 Pneumovax 23 10:55:48 CDT CPT-89756 Administration single or combination vaccine inc oral 10 :55:48 CDT CPT-Cryo Cryotherapy 11:18:11 CDT CPT-OV Office Visit 11:18:11 CDT CPT-82284 LS spine AP and Lat 09:05:22 CDT CPT-63717 Bladder Scan 15:42:00 CDT CPT-48879 Cystoscopy 15:42:00 CDT CPT-OV Office Visit 16:37:19 FLOOR SURFACER CPT-49257 Bladder Scan 15:32:10 FLOOR SURFACER CPT-52220 Cystoscopy 15:32:10 FLOOR SURFACER CPT-13649 Abd single AP View 14:05:59 FLOOR SURFACER CPT-53390 Pill cam small bowel 09:48:39 FLOOR SURFACER CPT-92835 Urine Dip (Floor Use Only) 17:17:19 FLOOR SURFACER CPT-88403 Bladder Scan 17:17:19 FLOOR SURFACER CPT-OV Office Visit 11:50:26 FLOOR SURFACER CPT-43791 Bladder Scan 10:10:42 CDT CPT-71659 Venipuncture Draw Fee 09:14:04 CDT CPT-69627 Chest 2V Frontal and Lat 10:10:49 CDT CPT-28333 LS spine comp w obliq 11:50:11 CDT CPT-13324 Venipuncture Draw Fee 08:52:57 FLOOR SURFACER CPT-56621 Cystoscopy W/rem FB 18:37:28 CDT CPT-56979 Abd single AP View 16:18:40 CDT CPT-09244 Abd compl w upright 17:30:59 CDT
--- OUTSIDE RECORDS SUMMARY | 2016-11-22 16:38 | XMS REPORT | Clinical Summary ---
Author Author Admin, MARGE Organization [facility] Address Unknown Phone Unavailable [...] MG/24HR TRANS PT24 Apply/Change q 24hr NICOTINE 93762533545 Active Capo Poe MD Active WELLBUTRIN SR 150 MG ORAL [id number] 1 po qd x 3 days, then 1 po BID BUPROPION HCL 37978680407 Active Capo Poe MD Active LORTAB 7.5-325 MG ORAL TABS 1 po q 6 hr prn pain HYDROCODONE- ACETAMINOPHEN 32151642200 Active Capo Poe MD Active FLOMAX 0.4 MG CAPS Take one by mouth daily TAMSULOSIN HCL 28220861858 Active Capo Poe MD Active MIRALAX PACK 1 po qd PRN Constipation POLYETHYLENE GLYCOL 3350 26833009116 Active Capo Poe MD Active DULERA 100-5 MCG/ACT AERO 2 puffs BID MOMETASONE FURO- FORMOTEROL FUM 06268604818 Active Capo Poe MD Active SERTRALINE HCL 100 MG ORAL TABS take 1 tab daily SERTRALINE HCL 41787886272 Active Capo Poe MD Active ZOLOFT 100 MG TABS 1 po daily SERTRALINE HCL 92559105632 No Longer Active Zoran Arzola MD Active FERROUS SULFATE 325 (65 FE) MG TABS 1 tablet by mouth daily FERROUS SULFATE 99009004157 No Longer Active Capo Poe MD Active TRAMADOL HCL 50 MG TABS 1-2 tablets every 6 hours as needed for pain TRAMADOL HCL 62585829442 Active Capo Poe MD Active HYDROCODONE-ACETAMINOPHEN 7.5-300 MG TABS take one every six hours HYDROCODONE-ACETAMINOPHEN 88431255171 No Longer Active Capo Poe MD Active TRIAMCINOLONE ACETONIDE 0.1 % OINT Apply to affected areas TID for up to 2 weeks TRIAMCINOLONE ACETONIDE 54684440549 No Longer Active Joe Vargas RN Active FERROUS SULFATE 325 (65 FE) MG TABS Take one by mouth daily FERROUS SULFATE 04637838999 No Longer Active Capo Poe MD Active TRIAMCINOLONE ACETONIDE 0.1 % OINT Apply to affected areas TID for up to 2 weeks TRIAMCINOLONE ACETONIDE 04834197593 No Longer Active Capo Poe MD Active ADULT ASPIRIN LOW STRENGTH 81 MG TBDP qd ASPIRIN 47055544759 Active Zorna Arzola MD Active ALEVE 220 MG TAB prn NAPROXEN SODIUM 52025990726 Active Capo oPe MD Active LISINOPRIL-HYDROCHLOROTHIAZIDE 10-12.5 MG TABS 1 tab by mouth daily LISINOPRIL-HYDROCHLOROTHIAZIDE 21081774555 Active Capo Poe MD Active MACROBID 100 MG CAP 1 cap by mouth twice daily NITROFURANTOIN MONOHYD MACRO 30245645671 No Longer Active Dona Becker Active AZITHROMYCIN 250 MG TABS 2 po qd x 1 day, then 1 po qd x 4 days AZITHROMYCIN 96491738011 No Longer Active Capo Poe MD Active FISH OIL 500 MG CAPS by mouth twice a day OMEGA-3 FATTY ACIDS 85608599365 Active Capo Poe MD Active FLAXSEED OIL 1000 MG CAPS Take two by mouth daily FLAXSEED (LINSEED) 70903887728 Elza Arzola MD Active RED YEAST RICE 600 MG CAPS Take two by mouth daily RED YEAST RICE EXTRACT 18592570596 Elza Arzola MD Active MULTIVITAMINS CAPS Take one by mouth daily MULTIPLE VITAMIN 84209146634 Active Zoran Arzola MD Active ICAPS MV TABS 2 po daily MULTIPLE VITAMINS-MINERALS 10259444576 Active Jam Arnold DO Active MACROBID 100 MG CAP 1 cap by mouth twice daily MACROBID 100 MG CAP 003759 NITROFURANTOIN MONOHYD MACRO Inactive FERROUS SULFATE 325 (65 FE) MG TABS Take one by mouth daily FERROUS SULFATE 325 (65 FE) MG TABS 270633 FERROUS SULFATE Inactive HYDROCODONE-ACETAMINOPHEN 7.5-300 MG TABS take one every six hours HYDROCODONE-ACETAMINOPHEN 7.5-300 MG TABS 390670 HYDROCODONE- ACETAMINOPHEN Inactive FERROUS SULFATE 325 (65 FE) MG TABS 1 tablet by mouth daily FERROUS SULFATE 325 (65 FE) MG TABS 431285 FERROUS SULFATE Inactive ZOLOFT 100 MG TABS 1 po daily ZOLOFT 100 MG TABS 437922 SERTRALINE HCL Inactive AZITHROMYCIN 250 MG TABS 2 po qd x 1 day, then 1 po qd x 4 days AZITHROMYCIN 250 MG TABS 2133053 AZITHROMYCIN Inactive TRIAMCINOLONE ACETONIDE 0.1 % OINT Apply to affected areas TID for up to 2 weeks TRIAMCINOLONE ACETONIDE 0.1 % OINT 1236103 TRIAMCINOLONE ACETONIDE Inactive TRIAMCINOLONE ACETONIDE 0.1 % OINT Apply to affected areas TID for up to 2 weeks TRIAMCINOLONE ACETONIDE 0.1 % OINT 0991585 TRIAMCINOLONE ACETONIDE Inactive Advance Directives Directive Description [...] Panel - Chemistry sodium, serum 139 mmol/L 484-342 0628/07/30 potassium, serum 4.7 mmol/L 3.5-5.2 chloride, serum [...] CBC - Chemistry cholesterol, serum 207 mg/dL 996-813 4706/02/11 triglyceride, serum, fasting 74 mg/dL 30-200 HDL cholesterol, serum 62 mg/dL 32-96 LDL cholesterol, serum 130 mg/dL 0-130 sodium, serum 144 mmol/L 198-317 1558/02/11 potassium, serum 5.0 mmol/L 3.5-5.2 chloride, serum [...] negative Encounters Code Encounter Date Provider Facility CPT-82883 Level 3 Est. Patient 09:27:01 CDT Capo Poe MD [facility] CPT-88450 Level 3 Est. Patient 18:37:08 CDT Zoran Arzola MD [facility] CPT-04116 Level 3 Est. Patient 15:00:28 CDT Capo Poe MD [facility] CPT-20096 Level 3 Est. Patient 08:20:19 CDT Zoran Arzola MD [facility] CPT-06557 Level 3 Est. Patient 09:22:21 CDT Capo Poe MD [facility] CPT-80121 Level 4 Est. Patient 10:21:30 PLASTIC PARTS FABRICATOR TRIMMER Capo Poe MD [facility] CPT-45600 Level 3 Est. Patient 17:08:51 PLASTIC PARTS FABRICATOR TRIMMER Zoran Arzola MD [facility] CPT-49790 Level 4 Est. Patient 09:44:42 CDT Capo Poe MD [facility] CPT-05352 Level 4 Est. Patient 10:39:29 CDT Capo Poe MD [facility] CPT-49859 Level 3 Est. Patient 17:45:23 CDT Zoran Arzola MD [facility] CPT-89856 Level 4 Est. Patient 08:50:44 CDT Capo Poe MD [facility] CPT-45598 Level 3 Est. Patient 10:39:51 PLASTIC PARTS FABRICATOR TRIMMER Capo Poe MD [facility] CPT-14463 Level 4 Est. Patient 09:44:24 PLASTIC PARTS FABRICATOR TRIMMER Capo Poe MD [facility] CPT-70702 Level 3 Est. Patient 14:48:42 PLASTIC PARTS FABRICATOR TRIMMER Zoran Arzola MD [facility] CPT-50669 Level 4 Est. Patient 10:24:02 CDT Capo Poe MD [facility] CPT-91476 Level 3 Est. Patient 15:42:00 CDT Maya WRIGHTP [facility] CPT-24245 Level 4 Est. Patient 13:34:15 CDT Capo Poe MD [facility] CPT-10552 Level 3 Est. Patient 15:32:10 PLASTIC PARTS FABRICATOR TRIMMER Zoran Arzola MD [facility] CPT-67336 Level 3 New Patient 17:17:19 PLASTIC PARTS FABRICATOR TRIMMER Zoran Arzola MD [facility] CPT-33028 Level 4 Est. Patient 10:25:01 PLASTIC PARTS FABRICATOR TRIMMER Capo Poe MD [facility] CPT-32413 Level 3 Est. Patient 10:10:42 CDT Zoran Arzola MD [facility] CPT-11943 Level 3 Est. Patient 22:30:02 CDT Zoran Arzola MD [facility] CPT-44232 Level 4 Est. Patient 09:54:20 CDT Capo Poe MD [facility] CPT-89689 Level 3 Est. Patient 10:48:30 CDT Capo Poe MD [facility] CPT-52538 Level 3 Est. Patient 11:24:45 CDT Capo Poe MD [facility] CPT-12335 Level 3 Est. Patient 15:23:48 PLASTIC PARTS FABRICATOR TRIMMER Capo Poe MD [facility] CPT-12436 Level 3 Est. Patient 15:10:03 PLASTIC PARTS FABRICATOR TRIMMER Capo Poe MD [facility] CPT-43482 Level 3 Est. Patient 16:18:40 CDT Zoran Arzola MD [facility] Procedures Code Procedure Name Date Entry Date Standard Description CPT-98977 Abd single AP View 08:32:00 CDT CPT-40318 Postop F/U Visit 21:13:08 CDT CPT-29716 Abd single AP View 15:50:24 CDT CPT-12652 Cystoscopy W/rem FB 15:21:28 CDT CPT-45420 Abd single AP View 14:06:45 CDT CPT-10839 Postop F/U Visit 09:48:32 CDT CPT-01472 Abd single AP View 13:58:26 CDT CPT-68943 Hip comp min 2V 10:27:18 PLASTIC PARTS FABRICATOR TRIMMER CPT-37062 Urine Dip (Floor Use Only) 13:41:01 PLASTIC PARTS FABRICATOR TRIMMER CPT-92249 Postop F/U Visit 11:17:48 CDT CPT-LR Lesion Removal 11:50:22 CDT CPT-OV Office Visit 11:50:22 CDT CPT-00616 Pneumovax 23 10:55:48 CDT CPT-66489 Administration single or combination vaccine inc oral 10 :55:48 CDT CPT-Cryo Cryotherapy 11:18:11 CDT CPT-OV Office Visit 11:18:11 CDT CPT-85680 LS spine AP and Lat 09:05:22 CDT CPT-46147 Bladder Scan 15:42:00 CDT CPT-60465 Cystoscopy 15:42:00 CDT CPT-OV Office Visit 16:37:19 PLASTIC PARTS FABRICATOR TRIMMER CPT-02904 Bladder Scan 15:32:10 PLASTIC PARTS FABRICATOR TRIMMER CPT-87895 Cystoscopy 15:32:10 PLASTIC PARTS FABRICATOR TRIMMER CPT-09177 Abd single AP View 14:05:59 PLASTIC PARTS FABRICATOR TRIMMER CPT-84511 Pill cam small bowel 09:48:39 PLASTIC PARTS FABRICATOR TRIMMER CPT-06189 Urine Dip (Floor Use Only) 17:17:19 PLASTIC PARTS FABRICATOR TRIMMER CPT-86114 Bladder Scan 17:17:19 PLASTIC PARTS FABRICATOR TRIMMER CPT-OV Office Visit 11:50:26 PLASTIC PARTS FABRICATOR TRIMMER CPT-29016 Bladder Scan 10:10:42 CDT CPT-65224 Venipuncture Draw Fee 09:14:04 CDT CPT-43127 Chest 2V Frontal and Lat 10:10:49 CDT CPT-60527 LS spine comp w obliq 11:50:11 CDT CPT-12819 Venipuncture Draw Fee 08:52:57 PLASTIC PARTS FABRICATOR TRIMMER CPT-91413 Cystoscopy W/rem FB 18:37:28 CDT CPT-15459 Abd single AP View 16:18:40 CDT CPT-81638 Abd compl w upright 17:30:59 CDT
--- OUTSIDE RECORDS SUMMARY | 2016-11-22 16:40 | XMS REPORT | Clinical Summary ---
Author Author Admin, QIE Organization [facility] Address Unknown Phone Unavailable Allergies, Adverse Reactions, [...] unspecified Anemia, iron deficiency 280.9 Resolved Capo oPe MD Iron deficiency anemia, unspecified U T [...] Iron deficiency 280.9 Active Jasmin Dixon [facility] Iron deficiency anemia, unspecified NAUSEA AND [...] 1 tab po twice daily FERROUS SULFATE 31391081708 Active Jasmin TEIXEIRA Active D ORAL TABS 2000 iu weekly D ORAL TABS Active Capo Poe MD Active CITALOPRAM HYDROBROMIDE 20 MG TABS 1 tablet by mouth daily CITALOPRAM HYDROBROMIDE 08393508470 Active Capo Poe MD Active CLARITIN 5 MG ORAL CHEW 1 tab po q day LORATADINE 93388730271 Active Felisa TEIXEIRA Active VIIBRYD STARTER PACK 10 & 20 MG ORAL KIT 1 po qd as directed 2015 VILAZODONE HCL 52248376317 No Longer Active Felisa TEIXEIRA Active HYDROXYZINE HCL 25 MG TAB 1 po qHS PRN Insomnia HYDROXYZINE HCL 09440823539 Active Capo Poe MD Active LISINOPRIL 10 MG TABS 1 tablet by mouth daily LISINOPRIL 74231377829 Active Capo Poe MD Active LORTAB 7.5-325 MG ORAL TABS 1 po q 6 hr prn pain HYDROCODONE- ACETAMINOPHEN 80708694931 No Longer Active Capo Poe MD Active FLOMAX 0.4 MG CAPS Take one by mouth daily TAMSULOSIN HCL 20287493858 No Longer Active Capo Poe MD Active TRIAMCINOLONE ACETONIDE 0.1 % CREA Apply to affected areas TID for up to 2 weeks TRIAMCINOLONE ACETONIDE 57801876747 Active Capo Poe MD Active NICOTINE 14 MG/24HR TRANS PT24 Apply/Change q 24hr NICOTINE 24538690971 No Longer Active Capo Poe MD Active TRAMADOL HCL 50 MG TABS 1-2 tablets every 6 hours as needed for pain TRAMADOL HCL 39272205634 No Longer Active Capo Poe MD Active SERTRALINE HCL 100 MG ORAL TABS take 1 tab daily SERTRALINE HCL 11819009756 No Longer Active Capo Poe MD Active LISINOPRIL-HYDROCHLOROTHIAZIDE 10-12.5 MG TABS 0.5 tab by mouth daily LISINOPRIL-HYDROCHLOROTHIAZIDE 33248631575 No Longer Active Capo Poe MD Active OMEPRAZOLE 20 MG CPDR 1 tablet by mouth daily OMEPRAZOLE 69953518774 Active Capo Poe MD Active WELLBUTRIN SR 150 MG ORAL [id number] 1 po BID BUPROPION HCL 70349462206 No Longer Active Capo Poe MD Active MIRALAX PACK 1 po qd PRN Constipation POLYETHYLENE GLYCOL 3350 18620131747 Active Capo Poe MD Active DULERA 100-5 MCG/ACT AERO 2 puffs BID MOMETASONE FURO- FORMOTEROL FUM 22139965759 Active Capo Poe MD Active ZOLOFT 100 MG TABS 1 po daily SERTRALINE HCL 85714432308 No Longer Active Zoran Arzola MD Active FERROUS SULFATE 325 (65 FE) MG TABS 1 tablet by mouth daily FERROUS SULFATE 93165462346 No Longer Active Capo Poe MD Active HYDROCODONE-ACETAMINOPHEN 7.5-300 MG TABS take one every six hours HYDROCODONE-ACETAMINOPHEN 30967851761 No Longer Active Capo Poe MD Active TRIAMCINOLONE ACETONIDE 0.1 % OINT Apply to affected areas TID for up to 2 weeks TRIAMCINOLONE ACETONIDE 30022911181 No Longer Active Joe Vargas RN Active FERROUS SULFATE 325 (65 FE) MG TABS Take one by mouth daily FERROUS SULFATE 81515322935 No Longer Active Capo Poe MD Active TRIAMCINOLONE ACETONIDE 0.1 % OINT Apply to affected areas TID for up to 2 weeks TRIAMCINOLONE ACETONIDE 58120750958 No Longer Active Capo Poe MD Active ADULT ASPIRIN LOW STRENGTH 81 MG TBDP qd ASPIRIN 63178150022 Active Zoran Arzola MD Active ALEVE 220 MG TAB prn NAPROXEN SODIUM 93546548090 Active Capo Poe MD Active MACROBID 100 MG CAP 1 cap by mouth twice daily NITROFURANTOIN MONOHYD MACRO 78181127935 No Longer Active Dona Becker Active AZITHROMYCIN 250 MG TABS 2 po qd x 1 day, then 1 po qd x 4 days AZITHROMYCIN 74005090367 No Longer Active Capo Poe MD Active FISH OIL 500 MG CAPS by mouth twice a day OMEGA-3 FATTY ACIDS 96879936945 Active Capo Poe MD Active FLAXSEED OIL 1000 MG CAPS Take two by mouth daily FLAXSEED (LINSEED) 79944539203 Active Zoran Arzola MD Active RED YEAST RICE 600 MG CAPS Take two by mouth daily RED YEAST RICE EXTRACT 00989045051 Active Zoran Arzola MD Active MULTIVITAMINS CAPS Take one by mouth daily MULTIPLE VITAMIN 03748304001 Active Zoran Arzola MD Active ICAPS MV TABS 2 po daily MULTIPLE VITAMINS-MINERALS 46892120478 Active Jam Arnold DO Active MACROBID 100 MG CAP 1 cap by mouth twice daily MACROBID 100 MG CAP 5548027 NITROFURANTOIN MONOHYD MACRO Inactive FERROUS SULFATE 325 (65 FE) MG TABS Take one by mouth daily FERROUS SULFATE 325 (65 FE) MG TABS 501379 FERROUS SULFATE Inactive HYDROCODONE-ACETAMINOPHEN 7.5-300 MG TABS take one every six hours HYDROCODONE-ACETAMINOPHEN 7.5-300 MG TABS 830823 HYDROCODONE- ACETAMINOPHEN Inactive FERROUS SULFATE 325 (65 FE) MG TABS 1 tablet by mouth daily FERROUS SULFATE 325 (65 FE) MG TABS 832270 FERROUS SULFATE Inactive ZOLOFT 100 MG TABS 1 po daily ZOLOFT 100 MG TABS 061210 SERTRALINE HCL Inactive SERTRALINE HCL 100 MG ORAL TABS take 1 tab daily SERTRALINE HCL 100 MG ORAL TABS 071371 SERTRALINE HCL Inactive TRAMADOL HCL 50 MG TABS 1-2 tablets every 6 hours as needed for pain TRAMADOL HCL 50 MG TABS 958139 TRAMADOL HCL Inactive NICOTINE 14 MG/24HR TRANS PT24 Apply/Change q 24hr NICOTINE 14 MG/24HR TRANS PT24 042798 NICOTINE Inactive FLOMAX 0.4 MG CAPS Take one by mouth daily FLOMAX 0.4 MG CAPS 289124 TAMSULOSIN HCL Inactive LORTAB 7.5-325 MG ORAL TABS 1 po q 6 hr prn pain LORTAB 7.5- 325 MG ORAL TABS 513937 HYDROCODONE-ACETAMINOPHEN Inactive VIIBRYD STARTER PACK 10 & 20 MG ORAL KIT 1 po qd as directed 2015 VIIBRYD STARTER PACK 10 & 20 MG ORAL KIT VILAZODONE HCL Inactive AZITHROMYCIN 250 MG TABS 2 po qd x 1 day, then 1 po qd x 4 days AZITHROMYCIN 250 MG TABS 3129103 AZITHROMYCIN Inactive TRIAMCINOLONE ACETONIDE 0.1 % OINT Apply to affected areas TID for up to 2 weeks TRIAMCINOLONE ACETONIDE 0.1 % OINT 0052955 TRIAMCINOLONE ACETONIDE Inactive TRIAMCINOLONE ACETONIDE 0.1 % OINT Apply to affected areas TID for up to 2 weeks TRIAMCINOLONE ACETONIDE 0.1 % OINT 8345705 TRIAMCINOLONE ACETONIDE Inactive Advance Directives Directive Description [...] ... - Chemistry sodium, serum 141 mmol/L 457-232 0373/01/27 carbon dioxide, venous blood 29.7 mmol/L 21.0-32.0 [...] ... - Chemistry sodium, serum 138 mmol/L 497-918 4409/03/18 carbon dioxide, venous blood 25.5 mmol/L 21.0-32.0 potassium, serum 4.6 mmol/L 3.5-5.2 chloride, serum 101 mmol/L 98-107 blood glucose 129 mg/dL 65-110 urea nitrogen, blood 20 mg/dL 7-18 creatinine, serum 1.87 mg/dL 0.55-1.30 alanine aminotransferase (SGPT), serum 26 U/L 12-78 aspartate aminotransferase (SGOT), serum 20 U/L 15-37 calcium, serum 8.8 mg/dL 8.5-10.1 bilirubin, serum, total 0.40 mg/dL 0.00-1.00 cholesterol, serum 251 mg/dL 887-646 7801/03/18 triglyceride, serum, fasting 135 mg/dL 30-200 HDL [...] 0-19 Encounters Code Encounter Date Provider Facility CPT-04279 Level 4 Est. Patient 09:26:11 RELOCATION MANAGER Capo Poe MD [facility] CPT-08689 Level 4 Est. Patient 08:53:08 CDT Capo Poe MD [facility] CPT-53839 Level 4 Est. Patient 10:22:57 CDT Capo Poe MD [facility] CPT-65612 Level 4 Est. Patient 13:44:30 CDT Capo Poe MD [facility] CPT-97813 Level 3 Est. Patient 14:59:32 RELOCATION MANAGER Capo Poe MD [facility] CPT-01791 Level 4 Est. Patient 10:46:15 RELOCATION MANAGER Capo Poe MD [facility] CPT-96451 Level 3 Est. Patient 11:00:53 CDT Capo Poe MD [facility] CPT-92652 Level 3 Est. Patient 09:39:35 CDT Capo Poe MD [facility] CPT-53317 Level 3 Est. Patient 09:27:01 CDT Capo Poe MD [facility] CPT-10343 Level 3 Est. Patient 18:37:08 CDT Zoran Arzola MD [facility] CPT-45619 Level 3 Est. Patient 15:00:28 CDT Capo Poe MD [facility] CPT-13803 Level 3 Est. Patient 08:20:19 CDT Zoran Arzola MD [facility] CPT-21508 Level 3 Est. Patient 09:22:21 CDT Capo Poe MD [facility] CPT-44406 Level 4 Est. Patient 10:21:30 RELOCATION MANAGER Capo Poe MD [facility] CPT-52172 Level 3 Est. Patient 17:08:51 RELOCATION MANAGER Zoran Arzola MD [facility] CPT-63378 Level 4 Est. Patient 09:44:42 CDT Capo Poe MD [facility] CPT-31291 Level 4 Est. Patient 10:39:29 CDT Capo Poe MD [facility] CPT-51435 Level 3 Est. Patient 17:45:23 CDT Zoran Arzola MD [facility] CPT-68392 Level 4 Est. Patient 08:50:44 CDT Capo Poe MD [facility] CPT-28215 Level 3 Est. Patient 10:39:51 RELOCATION MANAGER Capo Poe MD [facility] CPT-26330 Level 4 Est. Patient 09:44:24 RELOCATION MANAGER Capo Poe MD [facility] CPT-84206 Level 3 Est. Patient 14:48:42 RELOCATION MANAGER Zoran Arzola MD [facility] CPT-08509 Level 4 Est. Patient 10:24:02 CDT Capo Poe MD [facility] CPT-84171 Level 3 Est. Patient 15:42:00 CDT Maya DUKES [facility] CPT-14567 Level 4 Est. Patient 13:34:15 CDT Capo Poe MD [facility] CPT-07687 Level 3 Est. Patient 15:32:10 RELOCATION MANAGER Zoran Arzola MD [facility] CPT-71366 Level 3 New Patient 17:17:19 RELOCATION MANAGER Zoran Arzola MD [facility] CPT-44400 Level 4 Est. Patient 10:25:01 RELOCATION MANAGER Capo Poe MD [facility] CPT-07929 Level 3 Est. Patient 10:10:42 CDT Zoran Arzola MD [facility] CPT-41652 Level 3 Est. Patient 22:30:02 CDT Zoran Arzola MD [facility] CPT-08256 Level 4 Est. Patient 09:54:20 CDT Capo Poe MD [facility] CPT-10647 Level 3 Est. Patient 10:48:30 CDT Capo Poe MD [facility] CPT-20142 Level 3 Est. Patient 11:24:45 CDT Capo Poe MD [facility] CPT-00886 Level 3 Est. Patient 15:23:48 RELOCATION MANAGER Capo Poe MD [facility] CPT-47853 Level 3 Est. Patient 15:10:03 RELOCATION MANAGER Capo Poe MD [facility] CPT-08171 Level 3 Est. Patient 16:18:40 CDT Zoran Arzola MD [facility] Procedures Code Procedure Name Date Entry Date Standard Description CPT-15716 Hemoccult IFOBT - LAB USE ONLY 14:11:43 RELOCATION MANAGER CPT-79254 TPSA - LAB USE ONLY 10:37:52 RELOCATION MANAGER CPT-01708 TSH - LAB USE ONLY 10:37:51 RELOCATION MANAGER CPT-90635 CMP - LAB USE ONLY 10:37:51 RELOCATION MANAGER CPT-09992 CBC with Diff - LAB USE ONLY 10:37:51 RELOCATION MANAGER CPT-69623 Venipuncture Draw Fee 10:37:51 RELOCATION MANAGER CPT-000 Give Pneumovax 10:39:30 CDT CPT-66831 Venipuncture Draw Fee 09:32:34 CDT CPT-G0438 Initial Annual Wellness Exam 10:24:35 CDT CPT-40605 Venipuncture Draw Fee 09:46:29 CDT CPT-77641 Venipuncture Draw Fee 14:30:06 CDT CPT-46576 Venipuncture Draw Fee 10:58:22 CDT CPT-42081 Abd single AP View 08:32:00 CDT CPT-74648 Postop F/U Visit 21:13:08 CDT CPT-76231 Abd single AP View 15:50:24 CDT CPT-44585 Cystoscopy W/rem FB 15:21:28 CDT CPT-23858 Abd single AP View 14:06:45 CDT CPT-01031 Postop F/U Visit 09:48:32 CDT CPT-77411 Abd single AP View 13:58:26 CDT CPT-98521 Hip comp min 2V 10:27:18 RELOCATION MANAGER CPT-44977 Urine Dip (Floor Use Only) 13:41:01 RELOCATION MANAGER CPT-95548 Postop F/U Visit 11:17:48 CDT CPT-LR Lesion Removal 11:50:22 CDT CPT-OV Office Visit 11:50:22 CDT CPT-51171 Pneumovax 23 10:55:48 CDT CPT-27023 Administration single or combination vaccine inc oral 10 :55:48 CDT CPT-Cryo Cryotherapy 11:18:11 CDT CPT-OV Office Visit 11:18:11 CDT CPT-80781 LS spine AP and Lat 09:05:22 CDT CPT-20328 Bladder Scan 15:42:00 CDT CPT-84904 Cystoscopy 15:42:00 CDT CPT-OV Office Visit 16:37:19 RELOCATION MANAGER CPT-07547 Bladder Scan 15:32:10 RELOCATION MANAGER CPT-05223 Cystoscopy 15:32:10 RELOCATION MANAGER CPT-58271 Abd single AP View 14:05:59 RELOCATION MANAGER CPT-30402 Pill cam small bowel 09:48:39 RELOCATION MANAGER CPT-36866 Urine Dip (Floor Use Only) 17:17:19 RELOCATION MANAGER CPT-17975 Bladder Scan 17:17:19 RELOCATION MANAGER CPT-OV Office Visit 11:50:26 RELOCATION MANAGER CPT-72074 Bladder Scan 10:10:42 CDT CPT-64544 Venipuncture Draw Fee 09:14:04 CDT CPT-15988 Chest 2V Frontal and Lat 10:10:49 CDT CPT-68148 LS spine comp w obliq 11:50:11 CDT CPT-19847 Venipuncture Draw Fee 08:52:57 RELOCATION MANAGER CPT-28628 Cystoscopy W/rem FB 18:37:28 CDT CPT-31295 Abd single AP View 16:18:40 CDT CPT-73416 Abd compl w upright 17:30:59 CDT
--- OUTSIDE RECORDS SUMMARY | 2016-11-22 16:41 | XMS REPORT | Clinical Summary ---
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 Resolved Capo oPe MD Chondritis of pinna UTI 599.0 Resolved [...] 1 tablet by mouth daily CITALOPRAM HYDROBROMIDE 05071633370 Active Felisamario TEIXEIRA Active CLARITIN 5 MG ORAL CHEW 1 tab po q day LORATADINE 96627045337 Active Felisa Daphney RMA Active VIIBRYD STARTER PACK 10 & 20 MG ORAL KIT 1 po qd as directed 2015 VILAZODONE HCL 38038474033 No Longer Active Felisa TEIXEIRA Active HYDROXYZINE HCL 25 MG TAB 1 po qHS PRN Insomnia HYDROXYZINE HCL 77169828193 Active Capo Poe MD Active LISINOPRIL 10 MG TABS 1 tablet by mouth daily LISINOPRIL 62901580635 Active Capo Poe MD Active LORTAB 7.5-325 MG ORAL TABS 1 po q 6 hr prn pain HYDROCODONE- ACETAMINOPHEN 57713697476 No Longer Active Capo Poe MD Active FLOMAX 0.4 MG CAPS Take one by mouth daily TAMSULOSIN HCL 03458612738 No Longer Active Capo Poe MD Active TRIAMCINOLONE ACETONIDE 0.1 % CREA Apply to affected areas TID for up to 2 weeks TRIAMCINOLONE ACETONIDE 41000901126 Active Capo Poe MD Active NICOTINE 14 MG/24HR TRANS PT24 Apply/Change q 24hr NICOTINE 30871576104 No Longer Active Capo Poe MD Active TRAMADOL HCL 50 MG TABS 1-2 tablets every 6 hours as needed for pain TRAMADOL HCL 81441382214 No Longer Active Capo Poe MD Active SERTRALINE HCL 100 MG ORAL TABS take 1 tab daily SERTRALINE HCL 73015617839 No Longer Active Capo Poe MD Active LISINOPRIL-HYDROCHLOROTHIAZIDE 10-12.5 MG TABS 0.5 tab by mouth daily LISINOPRIL-HYDROCHLOROTHIAZIDE 00610917746 No Longer Active Capo Poe MD Active OMEPRAZOLE 20 MG CPDR 1 tablet by mouth daily OMEPRAZOLE 42703345731 Active Capo Poe MD Active WELLBUTRIN SR 150 MG ORAL [id number] 1 po BID BUPROPION HCL 72030843209 No Longer Active Capo Poe MD Active MIRALAX PACK 1 po qd PRN Constipation POLYETHYLENE GLYCOL 3350 82428023458 Active Capo Poe MD Active DULERA 100-5 MCG/ACT AERO 2 puffs BID MOMETASONE FURO- FORMOTEROL FUM 02448018358 Active Capo Poe MD Active ZOLOFT 100 MG TABS 1 po daily SERTRALINE HCL 52504586975 No Longer Active Zoran Arzola MD Active FERROUS SULFATE 325 (65 FE) MG TABS 1 tablet by mouth daily FERROUS SULFATE 93106237932 No Longer Active Capo Poe MD Active HYDROCODONE-ACETAMINOPHEN 7.5-300 MG TABS take one every six hours HYDROCODONE-ACETAMINOPHEN 78569891208 No Longer Active Capo Poe MD Active TRIAMCINOLONE ACETONIDE 0.1 % OINT Apply to affected areas TID for up to 2 weeks TRIAMCINOLONE ACETONIDE 27156564562 No Longer Active Joe Vargas RN Active FERROUS SULFATE 325 (65 FE) MG TABS Take one by mouth daily FERROUS SULFATE 12423582638 No Longer Active Capo Poe MD Active TRIAMCINOLONE ACETONIDE 0.1 % OINT Apply to affected areas TID for up to 2 weeks TRIAMCINOLONE ACETONIDE 12173956570 No Longer Active Capo Poe MD Active ADULT ASPIRIN LOW STRENGTH 81 MG TBDP qd ASPIRIN 81100877956 Active Zoran Arzola MD Active ALEVE 220 MG TAB prn NAPROXEN SODIUM 29950692894 Active Capo Poe MD Active MACROBID 100 MG CAP 1 cap by mouth twice daily NITROFURANTOIN MONOHYD MACRO 21255680779 No Longer Active Dona Becker Active AZITHROMYCIN 250 MG TABS 2 po qd x 1 day, then 1 po qd x 4 days AZITHROMYCIN 74657812504 No Longer Active Capo Poe MD Active FISH OIL 500 MG CAPS by mouth twice a day OMEGA-3 FATTY ACIDS 66621750406 Active Capo Poe MD Active FLAXSEED OIL 1000 MG CAPS Take two by mouth daily FLAXSEED (LINSEED) 44586985048 Active Zoran Arzola MD Active RED YEAST RICE 600 MG CAPS Take two by mouth daily RED YEAST RICE EXTRACT 79363533751 Active Zoran Arzola MD Active MULTIVITAMINS CAPS Take one by mouth daily MULTIPLE VITAMIN 22267241995 Elza Arzola MD Active ICAPS MV TABS 2 po daily MULTIPLE VITAMINS-MINERALS 27927166961 Active Jam Arnold DO Active MACROBID 100 MG CAP 1 cap by mouth twice daily MACROBID 100 MG CAP 9386393 NITROFURANTOIN MONOHYD MACRO Inactive FERROUS SULFATE 325 (65 FE) MG TABS Take one by mouth daily FERROUS SULFATE 325 (65 FE) MG TABS 950696 FERROUS SULFATE Inactive HYDROCODONE-ACETAMINOPHEN 7.5-300 MG TABS take one every six hours HYDROCODONE-ACETAMINOPHEN 7.5-300 MG TABS 403023 HYDROCODONE- ACETAMINOPHEN Inactive FERROUS SULFATE 325 (65 FE) MG TABS 1 tablet by mouth daily FERROUS SULFATE 325 (65 FE) MG TABS 871402 FERROUS SULFATE Inactive ZOLOFT 100 MG TABS 1 po daily ZOLOFT 100 MG TABS 700066 SERTRALINE HCL Inactive SERTRALINE HCL 100 MG ORAL TABS take 1 tab daily SERTRALINE HCL 100 MG ORAL TABS 159812 SERTRALINE HCL Inactive TRAMADOL HCL 50 MG TABS 1-2 tablets every 6 hours as needed for pain TRAMADOL HCL 50 MG TABS 393269 TRAMADOL HCL Inactive NICOTINE 14 MG/24HR TRANS PT24 Apply/Change q 24hr NICOTINE 14 MG/24HR TRANS PT24 549765 NICOTINE Inactive FLOMAX 0.4 MG CAPS Take one by mouth daily FLOMAX 0.4 MG CAPS 711860 TAMSULOSIN HCL Inactive LORTAB 7.5-325 MG ORAL TABS 1 po q 6 hr prn pain LORTAB 7.5- 325 MG ORAL TABS 131761 HYDROCODONE-ACETAMINOPHEN Inactive VIIBRYD STARTER PACK 10 & 20 MG ORAL KIT 1 po qd as directed 2015 VIIBRYD STARTER PACK 10 & 20 MG ORAL KIT VILAZODONE HCL Inactive AZITHROMYCIN 250 MG TABS 2 po qd x 1 day, then 1 po qd x 4 days AZITHROMYCIN 250 MG TABS 2899220 AZITHROMYCIN Inactive TRIAMCINOLONE ACETONIDE 0.1 % OINT Apply to affected areas TID for up to 2 weeks TRIAMCINOLONE ACETONIDE 0.1 % OINT 5533301 TRIAMCINOLONE ACETONIDE Inactive TRIAMCINOLONE ACETONIDE 0.1 % OINT Apply to affected areas TID for up to 2 weeks TRIAMCINOLONE ACETONIDE 0.1 % OINT 2480062 TRIAMCINOLONE ACETONIDE Inactive Advance Directives Directive Description [...] mg/g mg/g{creat} 0-29 sodium, serum 138 mmol/L 168-208 8648/03/18 carbon dioxide, venous blood 25.5 mmol/L 21.0-32.0 potassium, serum 4.6 mmol/L 3.5-5.2 chloride, serum 101 mmol/L 98-107 blood glucose 129 mg/dL 65-110 urea nitrogen, blood 20 mg/dL 7-18 creatinine, serum 1.87 mg/dL 0.55-1.30 alanine aminotransferase (SGPT), serum 26 U/L 12-78 aspartate aminotransferase (SGOT), serum 20 U/L 15-37 calcium, serum 8.8 mg/dL 8.5-10.1 bilirubin, serum, total 0.40 mg/dL 0.00-1.00 cholesterol, serum 251 mg/dL 122-367 0244/03/18 triglyceride, serum, fasting 135 mg/dL 30-200 HDL [...] 0.00-4.00 Encounters Code Encounter Date Provider Facility CPT-11302 Level 4 Est. Patient 08:53:08 CDT Capo Poe MD [facility] CPT-81212 Level 4 Est. Patient 10:22:57 CDT Capo Poe MD [facility] CPT-30250 Level 4 Est. Patient 13:44:30 CDT Capo Poe MD [facility] CPT-73639 Level 3 Est. Patient 14:59:32 SUBSTATION OPERATOR CONVERSION Capo Poe MD [facility] CPT-37515 Level 4 Est. Patient 10:46:15 SUBSTATION OPERATOR CONVERSION Capo Poe MD [facility] CPT-49882 Level 3 Est. Patient 11:00:53 CDT Capo Poe MD [facility] CPT-77249 Level 3 Est. Patient 09:39:35 CDT Capo Poe MD [facility] CPT-48970 Level 3 Est. Patient 09:27:01 CDT Capo Poe MD [facility] CPT-77727 Level 3 Est. Patient 18:37:08 CDT Zoran Arzola MD [facility] CPT-18202 Level 3 Est. Patient 15:00:28 CDT Capo Poe MD [facility] CPT-35317 Level 3 Est. Patient 08:20:19 CDT Zoran Arzola MD [facility] CPT-65189 Level 3 Est. Patient 09:22:21 CDT Capo Poe MD [facility] CPT-09212 Level 4 Est. Patient 10:21:30 SUBSTATION OPERATOR CONVERSION Capo Poe MD [facility] CPT-19507 Level 3 Est. Patient 17:08:51 SUBSTATION OPERATOR CONVERSION Zoran Arzola MD [facility] CPT-42772 Level 4 Est. Patient 09:44:42 CDT Capo Poe MD [facility] CPT-62698 Level 4 Est. Patient 10:39:29 CDT Capo Poe MD [facility] CPT-38825 Level 3 Est. Patient 17:45:23 CDT Zoran Arzola MD [facility] CPT-40939 Level 4 Est. Patient 08:50:44 CDT Capo Poe MD [facility] CPT-97159 Level 3 Est. Patient 10:39:51 SUBSTATION OPERATOR CONVERSION Capo Poe MD [facility] CPT-00665 Level 4 Est. Patient 09:44:24 SUBSTATION OPERATOR CONVERSION Capo Poe MD [facility] CPT-18383 Level 3 Est. Patient 14:48:42 SUBSTATION OPERATOR CONVERSION Zoran Arzola MD [facility] CPT-76754 Level 4 Est. Patient 10:24:02 CDT Capo Poe MD [facility] CPT-23028 Level 3 Est. Patient 15:42:00 CDT Maya WRIGHTP [facility] CPT-41430 Level 4 Est. Patient 13:34:15 CDT Capo Poe MD [facility] CPT-48738 Level 3 Est. Patient 15:32:10 SUBSTATION OPERATOR CONVERSION Zoran Arzola MD [facility] CPT-10350 Level 3 New Patient 17:17:19 SUBSTATION OPERATOR CONVERSION Zoran Arzola MD [facility] CPT-51030 Level 4 Est. Patient 10:25:01 SUBSTATION OPERATOR CONVERSION Capo Poe MD [facility] CPT-93423 Level 3 Est. Patient 10:10:42 CDT Zoran Arzola MD [facility] CPT-81756 Level 3 Est. Patient 22:30:02 CDT Zoran Arzola MD [facility] CPT-66697 Level 4 Est. Patient 09:54:20 CDT Capo Poe MD [facility] CPT-60764 Level 3 Est. Patient 10:48:30 CDT Capo Poe MD [facility] CPT-28487 Level 3 Est. Patient 11:24:45 CDT Capo Poe MD [facility] CPT-95659 Level 3 Est. Patient 15:23:48 SUBSTATION OPERATOR CONVERSION Capo Poe MD [facility] CPT-74387 Level 3 Est. Patient 15:10:03 SUBSTATION OPERATOR CONVERSION Capo Poe MD [facility] CPT-01373 Level 3 Est. Patient 16:18:40 CDT Zoran Arzola MD [facility] Procedures Code Procedure Name Date Entry Date Standard Description CPT-38168 Venipuncture Draw Fee 09:32:34 CDT CPT-G0438 Initial Annual Wellness Exam 10:24:35 CDT CPT-83151 Venipuncture Draw Fee 09:46:29 CDT CPT-15952 Venipuncture Draw Fee 14:30:06 CDT CPT-33130 Venipuncture Draw Fee 10:58:22 CDT CPT-07238 Abd single AP View 08:32:00 CDT CPT-31027 Postop F/U Visit 21:13:08 CDT CPT-19956 Abd single AP View 15:50:24 CDT CPT-66332 Cystoscopy W/rem FB 15:21:28 CDT CPT-46814 Abd single AP View 14:06:45 CDT CPT-05333 Postop F/U Visit 09:48:32 CDT CPT-98459 Abd single AP View 13:58:26 CDT CPT-97640 Hip comp min 2V 10:27:18 SUBSTATION OPERATOR CONVERSION CPT-71007 Urine Dip (Floor Use Only) 13:41:01 SUBSTATION OPERATOR CONVERSION CPT-89647 Postop F/U Visit 11:17:48 CDT CPT-LR Lesion Removal 11:50:22 CDT CPT-OV Office Visit 11:50:22 CDT CPT-82505 Pneumovax 23 10:55:48 CDT CPT-84531 Administration single or combination vaccine inc oral 10 :55:48 CDT CPT-Cryo Cryotherapy 11:18:11 CDT CPT-OV Office Visit 11:18:11 CDT CPT-35511 LS spine AP and Lat 09:05:22 CDT CPT-84025 Bladder Scan 15:42:00 CDT CPT-99273 Cystoscopy 15:42:00 CDT CPT-OV Office Visit 16:37:19 SUBSTATION OPERATOR CONVERSION CPT-03022 Bladder Scan 15:32:10 SUBSTATION OPERATOR CONVERSION CPT-41623 Cystoscopy 15:32:10 SUBSTATION OPERATOR CONVERSION CPT-25506 Abd single AP View 14:05:59 SUBSTATION OPERATOR CONVERSION CPT-32032 Pill cam small bowel 09:48:39 SUBSTATION OPERATOR CONVERSION CPT-22712 Urine Dip (Floor Use Only) 17:17:19 SUBSTATION OPERATOR CONVERSION CPT-25966 Bladder Scan 17:17:19 SUBSTATION OPERATOR CONVERSION CPT-OV Office Visit 11:50:26 SUBSTATION OPERATOR CONVERSION CPT-74646 Bladder Scan 10:10:42 CDT CPT-31752 Venipuncture Draw Fee 09:14:04 CDT CPT-32185 Chest 2V Frontal and Lat 10:10:49 CDT CPT-65351 LS spine comp w obliq 11:50:11 CDT CPT-32131 Venipuncture Draw Fee 08:52:57 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
--- OUTSIDE RECORDS SUMMARY | 2016-11-22 16:41 | XMS REPORT ---
Author Author [facility] Medical Staff Organization [facility] Address [address] [place], [place] [id number] Phone [phone] Care Team Providers Care Fnps Name Role Phone KRISTINA MENJIVAR MD PP [phone] Summary purpose TRANSITION OF CARE AUTO GENERATION [...] Allergen Category Ingredient Status Reaction Severity Onset Eescmri-Pfm-Vpq Reductase Inhibitors Drug Allergy Igggbzl-Qma-Wnf Reductase Inhibitors Confirmed or Verified BACK PAIN morphine Drug Allergy morphine Confirmed or Verified Swelling Mild Adult Nitrofurantoin Drug Allergy Nitrofurantoin Confirmed or Verified Immunizations No immunizations recorded for this patient visit Relevant diagnostic tests and/or laboratory data RESULTS Chemistry [id number]:15:00 Result Normal Range Units Sodium 137 134-145 [...] Estimated GFR L 38 >=60 mL/min/1.7 Hematology :15:00 Result Normal Range Units WBC 8.0 4.8-10.8 103/uL RBC L 4.0 4.7-6.1 106/uL HGB L 12.3 13.0-18.0 g/dl HCT L 38.4 41.9-52.0 % MCV H 96.7 80-94 FL MCH 31.0 27-31 pg MCHC L 32.0 33-37 g/dl RDW 12.9 11.5-15.5 % PLT 219 130-400 103/uL MPV 9.6 7.3-10.4 FL Neutro % 58.8 40-70 % Lymph % 28.7 20-40 % [place] % 8.5 0-10.0 % Eos % 2.6 0-7.0 % Baso % 1.0 0-2 % Neutro # 4.7 1.5-7.5 103/uL Lymph # 2.3 0.9-4.0 103/uL [place] # 0.7 0-0.8 103/uL Eos # 0.2 0-0.6 103/uL Baso # 0.1 0-0.1 103/uL Microbiology :15:00 Result Normal Range Units Gastroccult Negative Negative Cardiac 15: Result Normal Range Units Troponin I < [...] should be interpreted with caution. Radiology Results : Result Normal Range Units MPV 9.6 7.3-10.4 FL History of procedures No procedures recorded for this patient visit. Functional status Functional Status Finding Observation Time Abdomen Appearance flat : Abdomen non-tender : Barnes no Quality sym/unlabored : Cough absent [id number]:00 Airway natural : Oxygen no : Temp >100.4 no : Temp <96.8 no : Chills with rigors no : HR > 90bpm no : Respirations > 20 no : Systolic <90 no : headache stiff neck no : Rapid Resp no :40 IV Site Location L AC :57 IV Type peripheral :57 IV Site Information discontinued :57 IV Site Start Attmpt 1 times : IV Site Rishi 20 : IV Site Appearance WNL :15 IV Site Color clear : IV Site Patent yes : Dressing Type occlusive :15 Nursing Note SL [...] yes Med/Side Effects Rev yes PNE Vac 2015 Flu Vac 2015 Tetanus Vac no
--- OUTSIDE RECORDS SUMMARY | 2016-11-22 16:42 | XMS REPORT | Clinical Summary ---
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 Simin [...] MG TABS 1 daily for infection LEVOFLOXACIN 06160526481 Active Leanna Baker APRN Active AZITHROMYCIN 250 MG ORAL TABS 2 po qd x 1, then 1 po qd x 4 AZITHROMYCIN 41839611399 Active Capo Poe MD Active PREDNISONE 20 MG ORAL TABS 2 po qd x 5 days PREDNISONE 08021765282 No Longer Active Capo Poe MD Active CARAFATE 1 GM ORAL TABS 1 tid SUCRALFATE 27373054893 Active Capo Poe MD Active RANITIDINE HCL 150 MG ORAL TABS 1 bid RANITIDINE HCL 61288564839 Active Capo Poe MD Active MULTIVITAMINS CAPS Take one by mouth daily MULTIPLE VITAMIN 21093262757 No Longer Active Capo Poe MD Active LISINOPRIL 10 MG TABS 1 tablet by mouth daily LISINOPRIL 92628299205 No Longer Active Capo Poe MD Active EQL IRON SUPPLEMENT THERAPY 325 MG ORAL TABS 1 tab po twice daily FERROUS SULFATE 18658495028 Active Jasmin Arboledalas RMA Active D ORAL TABS 2000 iu weekly D ORAL TABS Active Capo Poe MD Active CITALOPRAM HYDROBROMIDE 20 MG TABS 1 tablet by mouth daily CITALOPRAM HYDROBROMIDE 51274325825 Active Capo Poe MD Active CLARITIN 5 MG ORAL CHEW 1 tab po q day LORATADINE 77764604948 Active Felisa Daphney RMA Active VIIBRYD STARTER PACK 10 & 20 MG ORAL KIT 1 po qd as directed 2015 VILAZODONE HCL 51187511451 No Longer Active Felisa Daphney RMA Active HYDROXYZINE HCL 25 MG TAB 1 po qHS PRN Insomnia HYDROXYZINE HCL 78224812636 Active Capo Poe MD Active LORTAB 7.5-325 MG ORAL TABS 1 po q 6 hr prn pain HYDROCODONE- ACETAMINOPHEN 53179833592 No Longer Active Capo Poe MD Active FLOMAX 0.4 MG CAPS Take one by mouth daily TAMSULOSIN HCL 92788549559 No Longer Active Capo Poe MD Active TRIAMCINOLONE ACETONIDE 0.1 % CREA Apply to affected areas TID for up to 2 weeks TRIAMCINOLONE ACETONIDE 37332459456 Active Capo Poe MD Active NICOTINE 14 MG/24HR TRANS PT24 Apply/Change q 24hr NICOTINE 67257647293 No Longer Active Capo Poe MD Active TRAMADOL HCL 50 MG TABS 1-2 tablets every 6 hours as needed for pain TRAMADOL HCL 96658780571 No Longer Active Capo Poe MD Active SERTRALINE HCL 100 MG ORAL TABS take 1 tab daily SERTRALINE HCL 57416045998 No Longer Active Capo Poe MD Active LISINOPRIL-HYDROCHLOROTHIAZIDE 10-12.5 MG TABS 0.5 tab by mouth daily LISINOPRIL-HYDROCHLOROTHIAZIDE 99744441109 No Longer Active Capo Poe MD Active OMEPRAZOLE 20 MG CPDR 1 tablet by mouth daily OMEPRAZOLE 84823818672 Active Capo Poe MD Active WELLBUTRIN SR 150 MG ORAL [id number] 1 po BID BUPROPION HCL 57919670045 No Longer Active Capo Poe MD Active MIRALAX PACK 1 po qd PRN Constipation POLYETHYLENE GLYCOL 3350 72449279537 Active Capo Poe MD Active DULERA 100-5 MCG/ACT AERO 2 puffs BID MOMETASONE FURO- FORMOTEROL FUM 00758818153 Active Capo Poe MD Active ZOLOFT 100 MG TABS 1 po daily SERTRALINE HCL 82985192650 No Longer Active Zoran Arzola MD Active FERROUS SULFATE 325 (65 FE) MG TABS 1 tablet by mouth daily FERROUS SULFATE 27908606410 No Longer Active Capo Poe MD Active HYDROCODONE-ACETAMINOPHEN 7.5-300 MG TABS take one every six hours HYDROCODONE-ACETAMINOPHEN 88463170749 No Longer Active Capo Poe MD Active TRIAMCINOLONE ACETONIDE 0.1 % OINT Apply to affected areas TID for up to 2 weeks TRIAMCINOLONE ACETONIDE 66969294890 No Longer Active Joe Vargas RN Active FERROUS SULFATE 325 (65 FE) MG TABS Take one by mouth daily FERROUS SULFATE 15954161861 No Longer Active Capo Poe MD Active TRIAMCINOLONE ACETONIDE 0.1 % OINT Apply to affected areas TID for up to 2 weeks TRIAMCINOLONE ACETONIDE 62368432373 No Longer Active Capo Poe MD Active ADULT ASPIRIN LOW STRENGTH 81 MG TBDP qd ASPIRIN 94982575730 Active Zoran Arzola MD Active ALEVE 220 MG TAB prn NAPROXEN SODIUM 62581776241 Active Capo Poe MD Active MACROBID 100 MG CAP 1 cap by mouth twice daily NITROFURANTOIN MONOHYD MACRO 05331597211 No Longer Active Dona Becker Active AZITHROMYCIN 250 MG TABS 2 po qd x 1 day, then 1 po qd x 4 days AZITHROMYCIN 00060581814 No Longer Active Capo Poe MD Active FISH OIL 500 MG CAPS by mouth twice a day OMEGA-3 FATTY ACIDS 04502344501 Active Capo Poe MD Active FLAXSEED OIL 1000 MG CAPS Take two by mouth daily FLAXSEED (LINSEED) 67811799333 Active Zoran Arzola MD Active RED YEAST RICE 600 MG CAPS Take two by mouth daily RED YEAST RICE EXTRACT 45859121645 Active Zoran Arzola MD Active ICAPS MV TABS 2 po daily MULTIPLE VITAMINS-MINERALS 67190908934 Active Jam Arnold DO Active MACROBID 100 MG CAP 1 cap by mouth twice daily MACROBID 100 MG CAP 6040608 NITROFURANTOIN MONOHYD MACRO Inactive FERROUS SULFATE 325 (65 FE) MG TABS Take one by mouth daily FERROUS SULFATE 325 (65 FE) MG TABS 064372 FERROUS SULFATE Inactive HYDROCODONE-ACETAMINOPHEN 7.5-300 MG TABS take one every six hours HYDROCODONE-ACETAMINOPHEN 7.5-300 MG TABS 259632 HYDROCODONE- ACETAMINOPHEN Inactive FERROUS SULFATE 325 (65 FE) MG TABS 1 tablet by mouth daily FERROUS SULFATE 325 (65 FE) MG TABS 473095 FERROUS SULFATE Inactive ZOLOFT 100 MG TABS 1 po daily ZOLOFT 100 MG TABS 259736 SERTRALINE HCL Inactive SERTRALINE HCL 100 MG ORAL TABS take 1 tab daily SERTRALINE HCL 100 MG ORAL TABS 099525 SERTRALINE HCL Inactive TRAMADOL HCL 50 MG TABS 1-2 tablets every 6 hours as needed for pain TRAMADOL HCL 50 MG TABS 516595 TRAMADOL HCL Inactive NICOTINE 14 MG/24HR TRANS PT24 Apply/Change q 24hr NICOTINE 14 MG/24HR TRANS PT24 371584 NICOTINE Inactive FLOMAX 0.4 MG CAPS Take one by mouth daily FLOMAX 0.4 MG CAPS 358380 TAMSULOSIN HCL Inactive LORTAB 7.5-325 MG ORAL TABS 1 po q 6 hr prn pain LORTAB 7.5- 325 MG ORAL TABS 880063 HYDROCODONE-ACETAMINOPHEN Inactive VIIBRYD STARTER PACK 10 & 20 MG ORAL KIT 1 po qd as directed 2015 VIIBRYD STARTER PACK 10 & 20 MG ORAL KIT VILAZODONE HCL Inactive LISINOPRIL 10 MG TABS 1 tablet by mouth daily LISINOPRIL 10 MG TABS 135365 LISINOPRIL Inactive MULTIVITAMINS CAPS Take one by mouth daily MULTIVITAMINS CAPS MULTIPLE VITAMIN Inactive AZITHROMYCIN 250 MG TABS 2 po qd x 1 day, then 1 po qd x 4 days AZITHROMYCIN 250 MG TABS 2990244 AZITHROMYCIN Inactive TRIAMCINOLONE ACETONIDE 0.1 % OINT Apply to affected areas TID for up to 2 weeks TRIAMCINOLONE ACETONIDE 0.1 % OINT 5493632 TRIAMCINOLONE ACETONIDE Inactive TRIAMCINOLONE ACETONIDE 0.1 % OINT Apply to affected areas TID for up to 2 weeks TRIAMCINOLONE ACETONIDE 0.1 % OINT 5339941 TRIAMCINOLONE ACETONIDE Inactive PREDNISONE 20 MG ORAL TABS 2 po qd x 5 days PREDNISONE 20 MG ORAL TABS 332790 PREDNISONE Inactive Advance Directives Directive Description Start [...] Panel - Chemistry sodium, serum 137 mmol/L 668-814 7753/07/26 carbon dioxide, venous blood 27.3 mmol/L 21.0-32.0 [...] ... - Chemistry sodium, serum 141 mmol/L 885-121 6489/01/27 carbon dioxide, venous blood 29.7 mmol/L 21.0-32.0 [...] % 11.0-15.0 platelet count 214 THOUSAND/UL 10*3/mm3 831-937 5478/03/31 mean platelet volume 8.4 fL 7.5-12.5 Encounters Code Encounter Date Provider Facility CPT-56469 Level 3 Est. Patient 11:31:49 CDT Leanna Baker APRN [facility] CPT-21699 Level 3 Est. Patient 09:44:06 CDT Capo Peo MD [facility] CPT-01856 Level 4 Est. Patient 09:26:11 IT SOFTWARE DEVELOPER Capo Poe MD [facility] CPT-90363 Level 4 Est. Patient 08:53:08 CDT Capo Poe MD [facility] CPT-60710 Level 4 Est. Patient 10:22:57 CDT Capo Poe MD [facility] CPT-32277 Level 4 Est. Patient 13:44:30 CDT Capo Poe MD [facility] CPT-45618 Level 3 Est. Patient 14:59:32 IT SOFTWARE DEVELOPER Capo Poe MD [facility] CPT-08308 Level 4 Est. Patient 10:46:15 IT SOFTWARE DEVELOPER Capo Poe MD [facility] CPT-50277 Level 3 Est. Patient 11:00:53 CDT Capo Poe MD [facility] CPT-72876 Level 3 Est. Patient 09:39:35 CDT Capo Poe MD [facility] CPT-26823 Level 3 Est. Patient 09:27:01 CDT Capo Poe MD [facility] CPT-33641 Level 3 Est. Patient 18:37:08 CDT Zoran Arzola MD [facility] CPT-36462 Level 3 Est. Patient 15:00:28 CDT Capo Poe MD [facility] CPT-47850 Level 3 Est. Patient 08:20:19 CDT Zoran Arzola MD [facility] CPT-91911 Level 3 Est. Patient 09:22:21 CDT Capo Poe MD [facility] CPT-20058 Level 4 Est. Patient 10:21:30 IT SOFTWARE DEVELOPER Capo Poe MD [facility] CPT-79697 Level 3 Est. Patient 17:08:51 IT SOFTWARE DEVELOPER Zoran Arzola MD [facility] CPT-31289 Level 4 Est. Patient 09:44:42 CDT Capo Poe MD [facility] CPT-82837 Level 4 Est. Patient 10:39:29 CDT Capo Poe MD [facility] CPT-86030 Level 3 Est. Patient 17:45:23 CDT Zoran Arzola MD [facility] CPT-61328 Level 4 Est. Patient 08:50:44 CDT Capo Poe MD [facility] CPT-66370 Level 3 Est. Patient 10:39:51 IT SOFTWARE DEVELOPER Capo Poe MD [facility] CPT-95473 Level 4 Est. Patient 09:44:24 IT SOFTWARE DEVELOPER Capo Poe MD [facility] CPT-62708 Level 3 Est. Patient 14:48:42 IT SOFTWARE DEVELOPER Zoran Arzola MD [facility] CPT-73988 Level 4 Est. Patient 10:24:02 CDT Capo Poe MD [facility] CPT-05469 Level 3 Est. Patient 15:42:00 CDT Maya WRIGHTP [facility] CPT-28034 Level 4 Est. Patient 13:34:15 CDT Capo Poe MD [facility] CPT-82180 Level 3 Est. Patient 15:32:10 IT SOFTWARE DEVELOPER Zoran Arzola MD [facility] CPT-27733 Level 3 New Patient 17:17:19 IT SOFTWARE DEVELOPER Zoran Arzola MD [facility] CPT-02078 Level 4 Est. Patient 10:25:01 IT SOFTWARE DEVELOPER Capo Poe MD [facility] CPT-56937 Level 3 Est. Patient 10:10:42 CDT Zoran Arzola MD [facility] CPT-58569 Level 3 Est. Patient 22:30:02 CDT Zoran Arzola MD [facility] CPT-04482 Level 4 Est. Patient 09:54:20 CDT Capo Poe MD [facility] CPT-80699 Level 3 Est. Patient 10:48:30 CDT Capo Poe MD [facility] CPT-46522 Level 3 Est. Patient 11:24:45 CDT Capo Poe MD [facility] CPT-81354 Level 3 Est. Patient 15:23:48 IT SOFTWARE DEVELOPER Capo Poe MD [facility] CPT-71653 Level 3 Est. Patient 15:10:03 IT SOFTWARE DEVELOPER Capo Poe MD [facility] CPT-58398 Level 3 Est. Patient 16:18:40 CDT Zoran Arzola MD [facility] Procedures Code Procedure Name Date Entry Date Standard Description CPT-72310 Chest 2V Frontal and Lat - XRAY USE ONLY 11:51:24 CDT CPT-05466 Venipuncture Draw Fee 11:31:49 CDT CPT-92764 Hemoccult IFOBT - LAB USE ONLY 14:11:43 IT SOFTWARE DEVELOPER CPT-32774 TPSA - LAB USE ONLY 10:37:52 IT SOFTWARE DEVELOPER CPT-46145 TSH - LAB USE ONLY 10:37:51 IT SOFTWARE DEVELOPER CPT-93368 CMP - LAB USE ONLY 10:37:51 IT SOFTWARE DEVELOPER CPT-26717 CBC with Diff - LAB USE ONLY 10:37:51 IT SOFTWARE DEVELOPER CPT-41485 Venipuncture Draw Fee 10:37:51 IT SOFTWARE DEVELOPER CPT-000 Give Pneumovax 10:39:30 CDT CPT-65252 Venipuncture Draw Fee 09:32:34 CDT CPT-G0438 Initial Annual Wellness Exam 10:24:35 CDT CPT-63489 Venipuncture Draw Fee 09:46:29 CDT CPT-57188 Venipuncture Draw Fee 14:30:06 CDT CPT-57108 Venipuncture Draw Fee 10:58:22 CDT CPT-40499 Abd single AP View 08:32:00 CDT CPT-52102 Postop F/U Visit 21:13:08 CDT CPT-97021 Abd single AP View 15:50:24 CDT CPT-88933 Cystoscopy W/rem FB 15:21:28 CDT CPT-88145 Abd single AP View 14:06:45 CDT CPT-37913 Postop F/U Visit 09:48:32 CDT CPT-41291 Abd single AP View 13:58:26 CDT CPT-07461 Hip comp min 2V 10:27:18 IT SOFTWARE DEVELOPER CPT-97737 Urine Dip (Floor Use Only) 13:41:01 IT SOFTWARE DEVELOPER CPT-60300 Postop F/U Visit 11:17:48 CDT CPT-LR Lesion Removal 11:50:22 CDT CPT-OV Office Visit 11:50:22 CDT CPT-91659 Pneumovax 23 10:55:48 CDT CPT-02787 Administration single or combination vaccine inc oral 10 :55:48 CDT CPT-Cryo Cryotherapy 11:18:11 CDT CPT-OV Office Visit 11:18:11 CDT CPT-91611 LS spine AP and Lat 09:05:22 CDT CPT-85717 Bladder Scan 15:42:00 CDT CPT-87199 Cystoscopy 15:42:00 CDT CPT-OV Office Visit 16:37:19 IT SOFTWARE DEVELOPER CPT-82502 Bladder Scan 15:32:10 IT SOFTWARE DEVELOPER CPT-86719 Cystoscopy 15:32:10 IT SOFTWARE DEVELOPER CPT-03458 Abd single AP View 14:05:59 IT SOFTWARE DEVELOPER CPT-15600 Pill cam small bowel 09:48:39 IT SOFTWARE DEVELOPER CPT-60448 Urine Dip (Floor Use Only) 17:17:19 IT SOFTWARE DEVELOPER CPT-46142 Bladder Scan 17:17:19 IT SOFTWARE DEVELOPER CPT-OV Office Visit 11:50:26 IT SOFTWARE DEVELOPER CPT-92412 Bladder Scan 10:10:42 CDT CPT-29251 Venipuncture Draw Fee 09:14:04 CDT CPT-34763 Chest 2V Frontal and Lat 10:10:49 CDT CPT-30467 LS spine comp w obliq 11:50:11 CDT CPT-38337 Venipuncture Draw Fee 08:52:57 IT SOFTWARE DEVELOPER CPT-16449 Cystoscopy W/rem FB 18:37:28 CDT CPT-88285 Abd single AP View 16:18:40 CDT CPT-25102 Abd compl w upright 17:30:59 CDT
[2016-11-22] MEDS ORDERED: VIT-8 PO (16:43)
[2016-11-22] MEDS ORDERED: PANT40TA3 PO (16:43)
--- OUTSIDE RECORDS SUMMARY | 2016-11-22 16:44 | XMS REPORT | Clinical Summary ---
Author Author Admin, QIE Organization [employer] Address Unknown Phone Unavailable Allergies, Adverse Reactions, [...] Unspecified essential hypertension HEALTH SCREENING V70.0 Resolved Faisla Nagy MD Routine general medical examination at [...] 1 tablet by mouth daily CITALOPRAM HYDROBROMIDE 70522621098 Active Caop Poe MD Active CLARITIN 5 MG ORAL CHEW 1 tab po q day LORATADINE 71788536090 Active Felisa Daphney TEIXEIRA Active VIIBRYD STARTER PACK 10 & 20 MG ORAL KIT 1 po qd as directed 2015 VILAZODONE HCL 08399205201 No Longer Active Felisa TEIXEIRA Active HYDROXYZINE HCL 25 MG TAB 1 po qHS PRN Insomnia HYDROXYZINE HCL 41948317214 Active Capo Poe MD Active LISINOPRIL 10 MG TABS 1 tablet by mouth daily LISINOPRIL 44593809517 Active Capo Poe MD Active LORTAB 7.5-325 MG ORAL TABS 1 po q 6 hr prn pain HYDROCODONE- ACETAMINOPHEN 94984970097 No Longer Active Capo Poe MD Active FLOMAX 0.4 MG CAPS Take one by mouth daily TAMSULOSIN HCL 05442494130 No Longer Active Capo Poe MD Active TRIAMCINOLONE ACETONIDE 0.1 % CREA Apply to affected areas TID for up to 2 weeks TRIAMCINOLONE ACETONIDE 23869347136 Active Capo Poe MD Active NICOTINE 14 MG/24HR TRANS PT24 Apply/Change q 24hr NICOTINE 56327825037 No Longer Active Capo Poe MD Active TRAMADOL HCL 50 MG TABS 1-2 tablets every 6 hours as needed for pain TRAMADOL HCL 49963095539 No Longer Active Capo Poe MD Active SERTRALINE HCL 100 MG ORAL TABS take 1 tab daily SERTRALINE HCL 93817014614 No Longer Active Capo Poe MD Active LISINOPRIL-HYDROCHLOROTHIAZIDE 10-12.5 MG TABS 0.5 tab by mouth daily LISINOPRIL-HYDROCHLOROTHIAZIDE 46606240009 No Longer Active Capo Poe MD Active OMEPRAZOLE 20 MG CPDR 1 tablet by mouth daily OMEPRAZOLE 26422850425 Active Capo Poe MD Active WELLBUTRIN SR 150 MG ORAL [id number]-[id number] 1 po BID BUPROPION HCL 86178563743 No Longer Active Capo Poe MD Active MIRALAX PACK 1 po qd PRN Constipation POLYETHYLENE GLYCOL 3350 34720305550 Active Capo Poe MD Active DULERA 100-5 MCG/ACT AERO 2 puffs BID MOMETASONE FURO- FORMOTEROL FUM 09887560088 Active Capo Poe MD Active ZOLOFT 100 MG TABS 1 po daily SERTRALINE HCL 13674730324 No Longer Active Zoran Arzola MD Active FERROUS SULFATE 325 (65 FE) MG TABS 1 tablet by mouth daily FERROUS SULFATE 81451915886 No Longer Active Capo Poe MD Active HYDROCODONE-ACETAMINOPHEN 7.5-300 MG TABS take one every six hours HYDROCODONE-ACETAMINOPHEN 39818852831 No Longer Active Capo Poe MD Active TRIAMCINOLONE ACETONIDE 0.1 % OINT Apply to affected areas TID for up to 2 weeks TRIAMCINOLONE ACETONIDE 05236676662 No Longer Active Joe Vargas RN Active FERROUS SULFATE 325 (65 FE) MG TABS Take one by mouth daily FERROUS SULFATE 08027279764 No Longer Active Capo Poe MD Active TRIAMCINOLONE ACETONIDE 0.1 % OINT Apply to affected areas TID for up to 2 weeks TRIAMCINOLONE ACETONIDE 46173995596 No Longer Active Capo Poe MD Active ADULT ASPIRIN LOW STRENGTH 81 MG TBDP qd ASPIRIN 78280827340 Active Zoran Arzola MD Active ALEVE 220 MG TAB prn NAPROXEN SODIUM 82051867716 Active Capo Poe MD Active MACROBID 100 MG CAP 1 cap by mouth twice daily NITROFURANTOIN MONOHYD MACRO 13109488101 No Longer Active Dona Becker Active AZITHROMYCIN 250 MG TABS 2 po qd x 1 day, then 1 po qd x 4 days AZITHROMYCIN 34158383065 No Longer Active Capo Poe MD Active FISH OIL 500 MG CAPS by mouth twice a day OMEGA-3 FATTY ACIDS 08815496404 Active Capo Poe MD Active FLAXSEED OIL 1000 MG CAPS Take two by mouth daily FLAXSEED (LINSEED) 94671773493 Active Zoran Arzola MD Active RED YEAST RICE 600 MG CAPS Take two by mouth daily RED YEAST RICE EXTRACT 74855511094 Active Zoran Arzola MD Active MULTIVITAMINS CAPS Take one by mouth daily MULTIPLE VITAMIN 98510577059 Elza Arzola MD Active ICAPS MV TABS 2 po daily MULTIPLE VITAMINS-MINERALS 97925373655 Active Jam Arnold DO Active MACROBID 100 MG CAP 1 cap by mouth twice daily MACROBID 100 MG CAP 2219440 NITROFURANTOIN MONOHYD MACRO Inactive FERROUS SULFATE 325 (65 FE) MG TABS Take one by mouth daily FERROUS SULFATE 325 (65 FE) MG TABS 381726 FERROUS SULFATE Inactive HYDROCODONE-ACETAMINOPHEN 7.5-300 MG TABS take one every six hours HYDROCODONE-ACETAMINOPHEN 7.5-300 MG TABS 348292 HYDROCODONE- ACETAMINOPHEN Inactive FERROUS SULFATE 325 (65 FE) MG TABS 1 tablet by mouth daily FERROUS SULFATE 325 (65 FE) MG TABS 144688 FERROUS SULFATE Inactive ZOLOFT 100 MG TABS 1 po daily ZOLOFT 100 MG TABS 635404 SERTRALINE HCL Inactive SERTRALINE HCL 100 MG ORAL TABS take 1 tab daily SERTRALINE HCL 100 MG ORAL TABS 250026 SERTRALINE HCL Inactive TRAMADOL HCL 50 MG TABS 1-2 tablets every 6 hours as needed for pain TRAMADOL HCL 50 MG TABS 790924 TRAMADOL HCL Inactive NICOTINE 14 MG/24HR TRANS PT24 Apply/Change q 24hr NICOTINE 14 MG/24HR TRANS PT24 317890 NICOTINE Inactive FLOMAX 0.4 MG CAPS Take one by mouth daily FLOMAX 0.4 MG CAPS 653369 TAMSULOSIN HCL Inactive LORTAB 7.5-325 MG ORAL TABS 1 po q 6 hr prn pain LORTAB 7.5- 325 MG ORAL TABS 362388 HYDROCODONE-ACETAMINOPHEN Inactive VIIBRYD STARTER PACK 10 & 20 MG ORAL KIT 1 po qd as directed 2015 VIIBRYD STARTER PACK 10 & 20 MG ORAL KIT VILAZODONE HCL Inactive AZITHROMYCIN 250 MG TABS 2 po qd x 1 day, then 1 po qd x 4 days AZITHROMYCIN 250 MG TABS 9990494 AZITHROMYCIN Inactive TRIAMCINOLONE ACETONIDE 0.1 % OINT Apply to affected areas TID for up to 2 weeks TRIAMCINOLONE ACETONIDE 0.1 % OINT 3384076 TRIAMCINOLONE ACETONIDE Inactive TRIAMCINOLONE ACETONIDE 0.1 % OINT Apply to affected areas TID for up to 2 weeks TRIAMCINOLONE ACETONIDE 0.1 % OINT 5391973 TRIAMCINOLONE ACETONIDE Inactive Advance Directives Directive Description [...] mg/g mg/g{creat} 0-29 sodium, serum 138 mmol/L 394-371 3173/03/18 carbon dioxide, venous blood 25.5 mmol/L 21.0-32.0 potassium, serum 4.6 mmol/L 3.5-5.2 chloride, serum 101 mmol/L 98-107 blood glucose 129 mg/dL 65-110 urea nitrogen, blood 20 mg/dL 7-18 creatinine, serum 1.87 mg/dL 0.55-1.30 alanine aminotransferase (SGPT), serum 26 U/L 12-78 aspartate aminotransferase (SGOT), serum 20 U/L 15-37 calcium, serum 8.8 mg/dL 8.5-10.1 bilirubin, serum, total 0.40 mg/dL 0.00-1.00 cholesterol, serum 251 mg/dL 271-177 8220/03/18 triglyceride, serum, fasting 135 mg/dL 30-200 HDL [...] 0-19 Encounters Code Encounter Date Provider Facility CPT-63104 Level 4 Est. Patient 09:26:11 YOKER Capo Poe MD [facility] CPT-71732 Level 4 Est. Patient 08:53:08 CDT Capo Poe MD [facility] CPT-65868 Level 4 Est. Patient 10:22:57 CDT Capo Poe MD [facility] CPT-75925 Level 4 Est. Patient 13:44:30 CDT Capo Poe MD [facility] CPT-22116 Level 3 Est. Patient 14:59:32 YOKER Capo Poe MD [facility] CPT-39355 Level 4 Est. Patient 10:46:15 YOKER Capo Poe MD [facility] CPT-03175 Level 3 Est. Patient 11:00:53 CDT Capo Poe MD [facility] CPT-04214 Level 3 Est. Patient 09:39:35 CDT Capo Poe MD [facility] CPT-07896 Level 3 Est. Patient 09:27:01 CDT Capo Poe MD [facility] CPT-08668 Level 3 Est. Patient 18:37:08 CDT Zoran Arzola MD [facility] CPT-46575 Level 3 Est. Patient 15:00:28 CDT Capo Poe MD [facility] CPT-81025 Level 3 Est. Patient 08:20:19 CDT Zoran Arzola MD [facility] CPT-28852 Level 3 Est. Patient 09:22:21 CDT Capo Poe MD [facility] CPT-33252 Level 4 Est. Patient 10:21:30 YOKER Capo Poe MD [facility] CPT-66305 Level 3 Est. Patient 17:08:51 YOKER Zoran Arzola MD [facility] CPT-16398 Level 4 Est. Patient 09:44:42 CDT Capo Poe MD [facility] CPT-88861 Level 4 Est. Patient 10:39:29 CDT Capo Poe MD [facility] CPT-50007 Level 3 Est. Patient 17:45:23 CDT Zoran Arzola MD [facility] CPT-95891 Level 4 Est. Patient 08:50:44 CDT Capo Poe MD [facility] CPT-59931 Level 3 Est. Patient 10:39:51 YOKER Capo Poe MD [facility] CPT-50183 Level 4 Est. Patient 09:44:24 YOKER Capo Poe MD [facility] CPT-15182 Level 3 Est. Patient 14:48:42 YOKER Zoran Arzola MD [facility] CPT-33890 Level 4 Est. Patient 10:24:02 CDT Capo Poe MD [facility] CPT-47908 Level 3 Est. Patient 15:42:00 CDT Maya DUKES [facility] CPT-86684 Level 4 Est. Patient 13:34:15 CDT Capo Poe MD [facility] CPT-50156 Level 3 Est. Patient 15:32:10 YOKER Zoran Arzola MD [facility] CPT-39273 Level 3 New Patient 17:17:19 YOKER Zoran Arzola MD [facility] CPT-66252 Level 4 Est. Patient 10:25:01 YOKER Capo Poe MD [facility] CPT-91801 Level 3 Est. Patient 10:10:42 CDT Zoran Arzola MD [facility] CPT-91764 Level 3 Est. Patient 22:30:02 CDT Zoran Arzola MD [facility] CPT-17649 Level 4 Est. Patient 09:54:20 CDT Capo Poe MD [facility] CPT-69535 Level 3 Est. Patient 10:48:30 CDT Capo Poe MD [facility] CPT-41854 Level 3 Est. Patient 11:24:45 CDT Capo Poe MD [facility] CPT-59262 Level 3 Est. Patient 15:23:48 YOKER Capo Poe MD [facility] CPT-50722 Level 3 Est. Patient 15:10:03 YOKER Capo Poe MD [facility] CPT-32616 Level 3 Est. Patient 16:18:40 CDT Zoran Arzola MD [facility] Procedures Code Procedure Name Date Entry Date Standard Description CPT-90937 TPSA - LAB USE ONLY 10:37:52 YOKER CPT-30279 TSH - LAB USE ONLY 10:37:51 YOKER CPT-79959 CMP - LAB USE ONLY 10:37:51 YOKER CPT-98376 CBC with Diff - LAB USE ONLY 10:37:51 YOKER CPT-60159 Venipuncture Draw Fee 10:37:51 YOKER CPT-000 Give Pneumovax 10:39:30 CDT CPT-92322 Venipuncture Draw Fee 09:32:34 CDT CPT-G0438 Initial Annual Wellness Exam 10:24:35 CDT CPT-35807 Venipuncture Draw Fee 09:46:29 CDT CPT-41537 Venipuncture Draw Fee 14:30:06 CDT CPT-41775 Venipuncture Draw Fee 10:58:22 CDT CPT-36847 Abd single AP View 08:32:00 CDT CPT-22961 Postop F/U Visit 21:13:08 CDT CPT-77859 Abd single AP View 15:50:24 CDT CPT-79170 Cystoscopy W/rem FB 15:21:28 CDT CPT-08709 Abd single AP View 14:06:45 CDT CPT-07600 Postop F/U Visit 09:48:32 CDT CPT-63756 Abd single AP View 13:58:26 CDT CPT-09216 Hip comp min 2V 10:27:18 YOKER CPT-22221 Urine Dip (Floor Use Only) 13:41:01 YOKER CPT-42843 Postop F/U Visit 11:17:48 CDT CPT-LR Lesion Removal 11:50:22 CDT CPT-OV Office Visit 11:50:22 CDT CPT-16624 Pneumovax 23 10:55:48 CDT CPT-46337 Administration single or combination vaccine inc oral 10 :55:48 CDT CPT-Cryo Cryotherapy 11:18:11 CDT CPT-OV Office Visit 11:18:11 CDT CPT-40369 LS spine AP and Lat 09:05:22 CDT CPT-70410 Bladder Scan 15:42:00 CDT CPT-46261 Cystoscopy 15:42:00 CDT CPT-OV Office Visit 16:37:19 YOKER CPT-30803 Bladder Scan 15:32:10 YOKER CPT-33865 Cystoscopy 15:32:10 YOKER CPT-84282 Abd single AP View 14:05:59 YOKER CPT-73467 Pill cam small bowel 09:48:39 YOKER CPT-93647 Urine Dip (Floor Use Only) 17:17:19 YOKER CPT-08135 Bladder Scan 17:17:19 YOKER CPT-OV Office Visit 11:50:26 YOKER CPT-58117 Bladder Scan 10:10:42 CDT CPT-42584 Venipuncture Draw Fee 09:14:04 CDT CPT-75017 Chest 2V Frontal and Lat 10:10:49 CDT CPT-60334 LS spine comp w obliq 11:50:11 CDT CPT-78864 Venipuncture Draw Fee 08:52:57 YOKER CPT-53442 Cystoscopy W/rem FB 18:37:28 CDT CPT-68175 Abd single AP View 16:18:40 CDT CPT-67948 Abd compl w upright 17:30:59 CDT
--- OUTSIDE RECORDS SUMMARY | 2016-11-22 16:45 | XMS REPORT | Clinical Summary ---
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 [...] 1 tablet by mouth daily CITALOPRAM HYDROBROMIDE 34219391756 Active Felisa Daphney RMMarva Active CLARITIN 5 MG ORAL CHEW 1 tab po q day LORATADINE 27650210394 Active Felisa Daphney RMA Active VIIBRYD STARTER PACK 10 & 20 MG ORAL KIT 1 po qd as directed 2015 VILAZODONE HCL 44209608250 No Longer Active Felisa TEIXEIRA Active HYDROXYZINE HCL 25 MG TAB 1 po qHS PRN Insomnia HYDROXYZINE HCL 04265399588 Active Capo Poe MD Active LISINOPRIL 10 MG TABS 1 tablet by mouth daily LISINOPRIL 58868638426 Active Capo Poe MD Active LORTAB 7.5-325 MG ORAL TABS 1 po q 6 hr prn pain HYDROCODONE- ACETAMINOPHEN 58209681471 No Longer Active Capo Poe MD Active FLOMAX 0.4 MG CAPS Take one by mouth daily TAMSULOSIN HCL 59185050145 No Longer Active Capo Poe MD Active TRIAMCINOLONE ACETONIDE 0.1 % CREA Apply to affected areas TID for up to 2 weeks TRIAMCINOLONE ACETONIDE 97323819826 Active Capo Poe MD Active NICOTINE 14 MG/24HR TRANS PT24 Apply/Change q 24hr NICOTINE 18961027649 No Longer Active Capo Poe MD Active TRAMADOL HCL 50 MG TABS 1-2 tablets every 6 hours as needed for pain TRAMADOL HCL 68961305122 No Longer Active Capo Poe MD Active SERTRALINE HCL 100 MG ORAL TABS take 1 tab daily SERTRALINE HCL 05506080907 No Longer Active Capo Poe MD Active LISINOPRIL-HYDROCHLOROTHIAZIDE 10-12.5 MG TABS 0.5 tab by mouth daily LISINOPRIL-HYDROCHLOROTHIAZIDE 35394695201 No Longer Active Capo Poe MD Active OMEPRAZOLE 20 MG CPDR 1 tablet by mouth daily OMEPRAZOLE 14592328909 Active Capo Poe MD Active WELLBUTRIN SR 150 MG ORAL LT55O-QFR 1 po BID BUPROPION HCL 48625736850 No Longer Active Capo Poe MD Active MIRALAX PACK 1 po qd PRN Constipation POLYETHYLENE GLYCOL 3350 10039044893 Active Capo Poe MD Active DULERA 100-5 MCG/ACT AERO 2 puffs BID MOMETASONE FURO- FORMOTEROL FUM 44735633344 Active Capo Poe MD Active ZOLOFT 100 MG TABS 1 po daily SERTRALINE HCL 09146385058 No Longer Active Zoran Arzola MD Active FERROUS SULFATE 325 (65 FE) MG TABS 1 tablet by mouth daily FERROUS SULFATE 29018670478 No Longer Active Capo Poe MD Active HYDROCODONE-ACETAMINOPHEN 7.5-300 MG TABS take one every six hours HYDROCODONE-ACETAMINOPHEN 56867437039 No Longer Active Capo Poe MD Active TRIAMCINOLONE ACETONIDE 0.1 % OINT Apply to affected areas TID for up to 2 weeks TRIAMCINOLONE ACETONIDE 51879224536 No Longer Active Joe Vargas RN Active FERROUS SULFATE 325 (65 FE) MG TABS Take one by mouth daily FERROUS SULFATE 67179786879 No Longer Active Capo Poe MD Active TRIAMCINOLONE ACETONIDE 0.1 % OINT Apply to affected areas TID for up to 2 weeks TRIAMCINOLONE ACETONIDE 15470326958 No Longer Active Capo Poe MD Active ADULT ASPIRIN LOW STRENGTH 81 MG TBDP qd ASPIRIN 54834239373 Active Zoran Arzola MD Active ALEVE 220 MG TAB prn NAPROXEN SODIUM 66480475735 Active Capo Poe MD Active MACROBID 100 MG CAP 1 cap by mouth twice daily NITROFURANTOIN MONOHYD MACRO 35537721801 No Longer Active Dona Becker Active AZITHROMYCIN 250 MG TABS 2 po qd x 1 day, then 1 po qd x 4 days AZITHROMYCIN 34875013879 No Longer Active Capo Poe MD Active FISH OIL 500 MG CAPS by mouth twice a day OMEGA-3 FATTY ACIDS 67506715152 Active Capo Poe MD Active FLAXSEED OIL 1000 MG CAPS Take two by mouth daily FLAXSEED (LINSEED) 63729818708 Active Zoran Arzola MD Active RED YEAST RICE 600 MG CAPS Take two by mouth daily RED YEAST RICE EXTRACT 06605139209 Active Zoran Arzola MD Active MULTIVITAMINS CAPS Take one by mouth daily MULTIPLE VITAMIN 02293876322 Active Zoran Arzola MD Active ICAPS MV TABS 2 po daily MULTIPLE VITAMINS-MINERALS 85124207826 Active Jam Arnold DO Active MACROBID 100 MG CAP 1 cap by mouth twice daily MACROBID 100 MG CAP 0782318 NITROFURANTOIN MONOHYD MACRO Inactive FERROUS SULFATE 325 (65 FE) MG TABS Take one by mouth daily FERROUS SULFATE 325 (65 FE) MG TABS 115647 FERROUS SULFATE Inactive HYDROCODONE-ACETAMINOPHEN 7.5-300 MG TABS take one every six hours HYDROCODONE-ACETAMINOPHEN 7.5-300 MG TABS 552675 HYDROCODONE- ACETAMINOPHEN Inactive FERROUS SULFATE 325 (65 FE) MG TABS 1 tablet by mouth daily FERROUS SULFATE 325 (65 FE) MG TABS 066622 FERROUS SULFATE Inactive ZOLOFT 100 MG TABS 1 po daily ZOLOFT 100 MG TABS 630105 SERTRALINE HCL Inactive SERTRALINE HCL 100 MG ORAL TABS take 1 tab daily SERTRALINE HCL 100 MG ORAL TABS 045277 SERTRALINE HCL Inactive TRAMADOL HCL 50 MG TABS 1-2 tablets every 6 hours as needed for pain TRAMADOL HCL 50 MG TABS 722935 TRAMADOL HCL Inactive NICOTINE 14 MG/24HR TRANS PT24 Apply/Change q 24hr NICOTINE 14 MG/24HR TRANS PT24 549402 NICOTINE Inactive FLOMAX 0.4 MG CAPS Take one by mouth daily FLOMAX 0.4 MG CAPS 333304 TAMSULOSIN HCL Inactive LORTAB 7.5-325 MG ORAL TABS 1 po q 6 hr prn pain LORTAB 7.5- 325 MG ORAL TABS 841986 HYDROCODONE-ACETAMINOPHEN Inactive VIIBRYD STARTER PACK 10 & 20 MG ORAL KIT 1 po qd as directed 2015 VIIBRYD STARTER PACK 10 & 20 MG ORAL KIT VILAZODONE HCL Inactive AZITHROMYCIN 250 MG TABS 2 po qd x 1 day, then 1 po qd x 4 days AZITHROMYCIN 250 MG TABS 5337399 AZITHROMYCIN Inactive TRIAMCINOLONE ACETONIDE 0.1 % OINT Apply to affected areas TID for up to 2 weeks TRIAMCINOLONE ACETONIDE 0.1 % OINT 2126414 TRIAMCINOLONE ACETONIDE Inactive TRIAMCINOLONE ACETONIDE 0.1 % OINT Apply to affected areas TID for up to 2 weeks TRIAMCINOLONE ACETONIDE 0.1 % OINT 2259722 TRIAMCINOLONE ACETONIDE Inactive Advance Directives Directive Description [...] Panel - Chemistry sodium, serum 139 mmol/L 925-971 1990/07/30 potassium, serum 4.7 mmol/L 3.5-5.2 chloride, serum 101 mmol/L 98-107 carbon dioxide, venous blood 34.8 mmol/L 21.0-32.0 blood glucose 124 mg/dL 65-110 calcium, serum 8.9 mg/dL 8.5-10.1 urea nitrogen, blood 18 mg/dL - creatinine, serum 1.40 mg/dL 0.60-1.30 Lab Report: BUN, Creatinine - Chemistry urea nitrogen, blood 15 mg/dL 7- creatinine, serum 1.29 mg/dL 0.55-1.30 Lab Report: Comp. Metabolic Panel, Lipid Panel, HGBA1C, CBC, MICROALB/CR ... - Chemistry albumin/creatinine ratio, urine 30 - 300 mg/g mg/g{creat} 0-29 sodium, serum 138 mmol/L 236-832 3657/03/18 carbon dioxide, venous blood 25.5 mmol/L 21.0-32.0 potassium, serum 4.6 mmol/L 3.5-5.2 chloride, serum 101 mmol/L 98-107 blood glucose 129 mg/dL 65-110 urea nitrogen, blood 20 mg/dL 7-18 creatinine, serum 1.87 mg/dL 0.55-1.30 alanine aminotransferase (SGPT), serum 26 U/L 12-78 aspartate aminotransferase (SGOT), serum 20 U/L 15-37 calcium, serum 8.8 mg/dL 8.5-10.1 bilirubin, serum, total 0.40 mg/dL 0.00-1.00 cholesterol, serum 251 mg/dL 262-903 0918/03/18 triglyceride, serum, fasting 135 mg/dL 30-200 HDL [...] 0.00-4.00 Encounters Code Encounter Date Provider Facility CPT-08864 Level 4 Est. Patient 13:44:30 CDT Capo Poe MD [facility] CPT-85448 Level 3 Est. Patient 14:59:32 DOBBY LOOM FIXER Capo Poe MD [facility] CPT-33555 Level 4 Est. Patient 10:46:15 DOBBY LOOM FIXER Capo Poe MD [facility] CPT-59240 Level 3 Est. Patient 11:00:53 CDT Capo Poe MD [facility] CPT-25337 Level 3 Est. Patient 09:39:35 CDT Capo Poe MD [facility] CPT-31449 Level 3 Est. Patient 09:27:01 CDT Capo Poe MD [facility] CPT-41304 Level 3 Est. Patient 18:37:08 CDT Zoran Arzola MD [facility] CPT-51823 Level 3 Est. Patient 15:00:28 CDT Capo Poe MD [facility] CPT-29509 Level 3 Est. Patient 08:20:19 CDT Zoran Arzola MD [facility] CPT-11858 Level 3 Est. Patient 09:22:21 CDT Capo Poe MD [facility] CPT-06840 Level 4 Est. Patient 10:21:30 DOBBY LOOM FIXER Capo Poe MD [facility] CPT-57002 Level 3 Est. Patient 17:08:51 DOBBY LOOM FIXER Zoran Arzola MD [facility] CPT-97835 Level 4 Est. Patient 09:44:42 CDT Capo Poe MD [facility] CPT-72091 Level 4 Est. Patient 10:39:29 CDT Capo Poe MD [facility] CPT-37882 Level 3 Est. Patient 17:45:23 CDT Zoran Arzola MD [facility] CPT-33605 Level 4 Est. Patient 08:50:44 CDT Capo Poe MD [facility] CPT-21118 Level 3 Est. Patient 10:39:51 DOBBY LOOM FIXER Capo Poe MD [facility] CPT-73428 Level 4 Est. Patient 09:44:24 DOBBY LOOM FIXER Capo Poe MD [facility] CPT-19093 Level 3 Est. Patient 14:48:42 DOBBY LOOM FIXER Zoran Arzola MD [facility] CPT-71245 Level 4 Est. Patient 10:24:02 CDT Capo Poe MD [facility] CPT-89085 Level 3 Est. Patient 15:42:00 CDT Maya DUKES [facility] CPT-81517 Level 4 Est. Patient 13:34:15 CDT Capo Poe MD [facility] CPT-90178 Level 3 Est. Patient 15:32:10 DOBBY LOOM FIXER Zoran Arzola MD [facility] CPT-18022 Level 3 New Patient 17:17:19 DOBBY LOOM FIXER Zoran Arzola MD [facility] CPT-14332 Level 4 Est. Patient 10:25:01 DOBBY LOOM FIXER Capo Poe MD [facility] CPT-83489 Level 3 Est. Patient 10:10:42 CDT Zoran Arzola MD [facility] CPT-19353 Level 3 Est. Patient 22:30:02 CDT Zoran Arzola MD [facility] CPT-35902 Level 4 Est. Patient 09:54:20 CDT Capo Poe MD [facility] CPT-38163 Level 3 Est. Patient 10:48:30 CDT Capo Poe MD [facility] CPT-12701 Level 3 Est. Patient 11:24:45 CDT Capo Poe MD [facility] CPT-36055 Level 3 Est. Patient 15:23:48 DOBBY LOOM FIXER Capo Poe MD [facility] CPT-57549 Level 3 Est. Patient 15:10:03 DOBBY LOOM FIXER Capo Poe MD [facility] CPT-23903 Level 3 Est. Patient 16:18:40 CDT Zoran Arzola MD [facility] Procedures Code Procedure Name Date Entry Date Standard Description CPT-21432 Venipuncture Draw Fee 09:32:34 CDT CPT-G0438 Initial Annual Wellness Exam 10:24:35 CDT CPT-19040 Venipuncture Draw Fee 09:46:29 CDT CPT-53950 Venipuncture Draw Fee 14:30:06 CDT CPT-90865 Venipuncture Draw Fee 10:58:22 CDT CPT-03679 Abd single AP View 08:32:00 CDT CPT-81449 Postop F/U Visit 21:13:08 CDT CPT-33541 Abd single AP View 15:50:24 CDT CPT-42977 Cystoscopy W/rem FB 15:21:28 CDT CPT-22099 Abd single AP View 14:06:45 CDT CPT-93594 Postop F/U Visit 09:48:32 CDT CPT-41741 Abd single AP View 13:58:26 CDT CPT-77515 Hip comp min 2V 10:27:18 DOBBY LOOM FIXER CPT-00066 Urine Dip (Floor Use Only) 13:41:01 DOBBY LOOM FIXER CPT-56918 Postop F/U Visit 11:17:48 CDT CPT-LR Lesion Removal 11:50:22 CDT CPT-OV Office Visit 11:50:22 CDT CPT-33827 Pneumovax 23 10:55:48 CDT CPT-74635 Administration single or combination vaccine inc oral 10 :55:48 CDT CPT-Cryo Cryotherapy 11:18:11 CDT CPT-OV Office Visit 11:18:11 CDT CPT-36058 LS spine AP and Lat 09:05:22 CDT CPT-34971 Bladder Scan 15:42:00 CDT CPT-34224 Cystoscopy 15:42:00 CDT CPT-OV Office Visit 16:37:19 DOBBY LOOM FIXER CPT-13748 Bladder Scan 15:32:10 DOBBY LOOM FIXER CPT-85479 Cystoscopy 15:32:10 DOBBY LOOM FIXER CPT-81198 Abd single AP View 14:05:59 DOBBY LOOM FIXER CPT-74190 Pill cam small bowel 09:48:39 DOBBY LOOM FIXER CPT-91303 Urine Dip (Floor Use Only) 17:17:19 DOBBY LOOM FIXER CPT-24034 Bladder Scan 17:17:19 DOBBY LOOM FIXER CPT-OV Office Visit 11:50:26 DOBBY LOOM FIXER CPT-64104 Bladder Scan 10:10:42 CDT CPT-23146 Venipuncture Draw Fee 09:14:04 CDT CPT-95478 Chest 2V Frontal and Lat 10:10:49 CDT CPT-54055 LS spine comp w obliq 11:50:11 CDT CPT-70876 Venipuncture Draw Fee 08:52:57 DOBBY LOOM FIXER CPT-36848 Cystoscopy W/rem FB 18:37:28 CDT CPT-79229 Abd single AP View 16:18:40 CDT CPT-21153 Abd compl w upright 17:30:59 CDT
--- OUTSIDE RECORDS SUMMARY | 2016-11-22 16:46 | XMS REPORT | Clinical Summary ---
Author Author Admin, QIE Organization [employer] Address Unknown Phone Unavailable Allergies, Adverse Reactions, [...] 1 tablet by mouth daily CITALOPRAM HYDROBROMIDE 61362325954 Active Felisamario TEIXEIRA Active CLARITIN 5 MG ORAL CHEW 1 tab po q day LORATADINE 59067085264 Active Felisa Daphney RMA Active VIIBRYD STARTER PACK 10 & 20 MG ORAL KIT 1 po qd as directed 2015 VILAZODONE HCL 87186817210 No Longer Active Felisa TEIXEIRA Active HYDROXYZINE HCL 25 MG TAB 1 po qHS PRN Insomnia HYDROXYZINE HCL 85128622684 Active Capo Poe MD Active LISINOPRIL 10 MG TABS 1 tablet by mouth daily LISINOPRIL 02097215354 Active Capo Poe MD Active LORTAB 7.5-325 MG ORAL TABS 1 po q 6 hr prn pain HYDROCODONE- ACETAMINOPHEN 94426572379 No Longer Active Capo Poe MD Active FLOMAX 0.4 MG CAPS Take one by mouth daily TAMSULOSIN HCL 71647664391 No Longer Active Capo Poe MD Active TRIAMCINOLONE ACETONIDE 0.1 % CREA Apply to affected areas TID for up to 2 weeks TRIAMCINOLONE ACETONIDE 36881365203 Active Capo Poe MD Active NICOTINE 14 MG/24HR TRANS PT24 Apply/Change q 24hr NICOTINE 03540830572 No Longer Active Capo Poe MD Active TRAMADOL HCL 50 MG TABS 1-2 tablets every 6 hours as needed for pain TRAMADOL HCL 87318360096 No Longer Active Capo Poe MD Active SERTRALINE HCL 100 MG ORAL TABS take 1 tab daily SERTRALINE HCL 73075037026 No Longer Active Capo Poe MD Active LISINOPRIL-HYDROCHLOROTHIAZIDE 10-12.5 MG TABS 0.5 tab by mouth daily LISINOPRIL-HYDROCHLOROTHIAZIDE 96917703226 No Longer Active Capo Poe MD Active OMEPRAZOLE 20 MG CPDR 1 tablet by mouth daily OMEPRAZOLE 80354805630 Active Capo Poe MD Active WELLBUTRIN SR 150 MG ORAL [id number]-GFS 1 po BID BUPROPION HCL 31754375783 No Longer Active Capo Poe MD Active MIRALAX PACK 1 po qd PRN Constipation POLYETHYLENE GLYCOL 3350 64848241794 Active Capo Poe MD Active DULERA 100-5 MCG/ACT AERO 2 puffs BID MOMETASONE FURO- FORMOTEROL FUM 49333971872 Active Capo Poe MD Active ZOLOFT 100 MG TABS 1 po daily SERTRALINE HCL 12195531667 No Longer Active Zoran Arzola MD Active FERROUS SULFATE 325 (65 FE) MG TABS 1 tablet by mouth daily FERROUS SULFATE 59529706449 No Longer Active Capo Poe MD Active HYDROCODONE-ACETAMINOPHEN 7.5-300 MG TABS take one every six hours HYDROCODONE-ACETAMINOPHEN 92910239236 No Longer Active Capo Poe MD Active TRIAMCINOLONE ACETONIDE 0.1 % OINT Apply to affected areas TID for up to 2 weeks TRIAMCINOLONE ACETONIDE 74181944284 No Longer Active Joe Vargas RN Active FERROUS SULFATE 325 (65 FE) MG TABS Take one by mouth daily FERROUS SULFATE 92983375883 No Longer Active Capo Poe MD Active TRIAMCINOLONE ACETONIDE 0.1 % OINT Apply to affected areas TID for up to 2 weeks TRIAMCINOLONE ACETONIDE 68395834473 No Longer Active Capo Poe MD Active ADULT ASPIRIN LOW STRENGTH 81 MG TBDP qd ASPIRIN 45172944695 Active Zoran Arzola MD Active ALEVE 220 MG TAB prn NAPROXEN SODIUM 24350724981 Active Capo Poe MD Active MACROBID 100 MG CAP 1 cap by mouth twice daily NITROFURANTOIN MONOHYD MACRO 06764942252 No Longer Active Dona Becker Active AZITHROMYCIN 250 MG TABS 2 po qd x 1 day, then 1 po qd x 4 days AZITHROMYCIN 04912763013 No Longer Active Capo Poe MD Active FISH OIL 500 MG CAPS by mouth twice a day OMEGA-3 FATTY ACIDS 67009566952 Active Capo Poe MD Active FLAXSEED OIL 1000 MG CAPS Take two by mouth daily FLAXSEED (LINSEED) 84064316991 Active Zoran Arzola MD Active RED YEAST RICE 600 MG CAPS Take two by mouth daily RED YEAST RICE EXTRACT 43985596578 Active Zoran Arzola MD Active MULTIVITAMINS CAPS Take one by mouth daily MULTIPLE VITAMIN 96273216770 Elza Arzola MD Active ICAPS MV TABS 2 po daily MULTIPLE VITAMINS-MINERALS 40876483122 Active Jam Arnold DO Active MACROBID 100 MG CAP 1 cap by mouth twice daily MACROBID 100 MG CAP 4927965 NITROFURANTOIN MONOHYD MACRO Inactive FERROUS SULFATE 325 (65 FE) MG TABS Take one by mouth daily FERROUS SULFATE 325 (65 FE) MG TABS 711701 FERROUS SULFATE Inactive HYDROCODONE-ACETAMINOPHEN 7.5-300 MG TABS take one every six hours HYDROCODONE-ACETAMINOPHEN 7.5-300 MG TABS 627822 HYDROCODONE- ACETAMINOPHEN Inactive FERROUS SULFATE 325 (65 FE) MG TABS 1 tablet by mouth daily FERROUS SULFATE 325 (65 FE) MG TABS 423172 FERROUS SULFATE Inactive ZOLOFT 100 MG TABS 1 po daily ZOLOFT 100 MG TABS 582973 SERTRALINE HCL Inactive SERTRALINE HCL 100 MG ORAL TABS take 1 tab daily SERTRALINE HCL 100 MG ORAL TABS 022081 SERTRALINE HCL Inactive TRAMADOL HCL 50 MG TABS 1-2 tablets every 6 hours as needed for pain TRAMADOL HCL 50 MG TABS 057803 TRAMADOL HCL Inactive NICOTINE 14 MG/24HR TRANS PT24 Apply/Change q 24hr NICOTINE 14 MG/24HR TRANS PT24 621314 NICOTINE Inactive FLOMAX 0.4 MG CAPS Take one by mouth daily FLOMAX 0.4 MG CAPS 346671 TAMSULOSIN HCL Inactive LORTAB 7.5-325 MG ORAL TABS 1 po q 6 hr prn pain LORTAB 7.5- 325 MG ORAL TABS 313772 HYDROCODONE-ACETAMINOPHEN Inactive VIIBRYD STARTER PACK 10 & 20 MG ORAL KIT 1 po qd as directed 2015 VIIBRYD STARTER PACK 10 & 20 MG ORAL KIT VILAZODONE HCL Inactive AZITHROMYCIN 250 MG TABS 2 po qd x 1 day, then 1 po qd x 4 days AZITHROMYCIN 250 MG TABS 0861102 AZITHROMYCIN Inactive TRIAMCINOLONE ACETONIDE 0.1 % OINT Apply to affected areas TID for up to 2 weeks TRIAMCINOLONE ACETONIDE 0.1 % OINT 4389692 TRIAMCINOLONE ACETONIDE Inactive TRIAMCINOLONE ACETONIDE 0.1 % OINT Apply to affected areas TID for up to 2 weeks TRIAMCINOLONE ACETONIDE 0.1 % OINT 8386098 TRIAMCINOLONE ACETONIDE Inactive Advance Directives Directive Description [...] mg/g mg/g{creat} 0-29 sodium, serum 138 mmol/L 998-201 5436/03/18 carbon dioxide, venous blood 25.5 mmol/L 21.0-32.0 potassium, serum 4.6 mmol/L 3.5-5.2 chloride, serum 101 mmol/L 98-107 blood glucose 129 mg/dL 65-110 urea nitrogen, blood 20 mg/dL 7-18 creatinine, serum 1.87 mg/dL 0.55-1.30 alanine aminotransferase (SGPT), serum 26 U/L 12-78 aspartate aminotransferase (SGOT), serum 20 U/L 15-37 calcium, serum 8.8 mg/dL 8.5-10.1 bilirubin, serum, total 0.40 mg/dL 0.00-1.00 cholesterol, serum 251 mg/dL 065-343 1542/03/18 triglyceride, serum, fasting 135 mg/dL 30-200 HDL [...] 0.00-4.00 Encounters Code Encounter Date Provider Facility CPT-43051 Level 4 Est. Patient 08:53:08 CDT Capo Poe MD [facility] CPT-00261 Level 4 Est. Patient 10:22:57 CDT Capo Poe MD [facility] CPT-88359 Level 4 Est. Patient 13:44:30 CDT Capo Poe MD [facility] CPT-44804 Level 3 Est. Patient 14:59:32 SPEEDER TENDER Capo Poe MD [facility] CPT-10286 Level 4 Est. Patient 10:46:15 SPEEDER TENDER Capo Poe MD [facility] CPT-08307 Level 3 Est. Patient 11:00:53 CDT Capo Poe MD [facility] CPT-35911 Level 3 Est. Patient 09:39:35 CDT Capo Poe MD [facility] CPT-48579 Level 3 Est. Patient 09:27:01 CDT Capo Poe MD [facility] CPT-66673 Level 3 Est. Patient 18:37:08 CDT Zoran Arzola MD [facility] CPT-49992 Level 3 Est. Patient 15:00:28 CDT Capo Poe MD [facility] CPT-36241 Level 3 Est. Patient 08:20:19 CDT Zoran Arzola MD [facility] CPT-57701 Level 3 Est. Patient 09:22:21 CDT Capo Poe MD [facility] CPT-60991 Level 4 Est. Patient 10:21:30 SPEEDER TENDER Capo Poe MD [facility] CPT-49001 Level 3 Est. Patient 17:08:51 SPEEDER TENDER Zoran Arzola MD [facility] CPT-89237 Level 4 Est. Patient 09:44:42 CDT Capo Poe MD [facility] CPT-46820 Level 4 Est. Patient 10:39:29 CDT Capo Poe MD [facility] CPT-99997 Level 3 Est. Patient 17:45:23 CDT Zoran Arzola MD [facility] CPT-26845 Level 4 Est. Patient 08:50:44 CDT Capo Poe MD [facility] CPT-76601 Level 3 Est. Patient 10:39:51 SPEEDER TENDER Capo Poe MD [facility] CPT-60734 Level 4 Est. Patient 09:44:24 SPEEDER TENDER Capo Poe MD [facility] CPT-62385 Level 3 Est. Patient 14:48:42 SPEEDER TENDER Zoran Arzola MD [facility] CPT-68350 Level 4 Est. Patient 10:24:02 CDT Capo Poe MD [facility] CPT-31330 Level 3 Est. Patient 15:42:00 CDT Maya WRIGHTP [facility] CPT-66064 Level 4 Est. Patient 13:34:15 CDT Capo Poe MD [facility] CPT-73592 Level 3 Est. Patient 15:32:10 SPEEDER TENDER Zoran Arzola MD [facility] CPT-99265 Level 3 New Patient 17:17:19 SPEEDER TENDER Zoran Arzola MD [facility] CPT-97429 Level 4 Est. Patient 10:25:01 SPEEDER TENDER Capo Poe MD [facility] CPT-66304 Level 3 Est. Patient 10:10:42 CDT Zoran Arzola MD [facility] CPT-41279 Level 3 Est. Patient 22:30:02 CDT Zoran Arzola MD [facility] CPT-13383 Level 4 Est. Patient 09:54:20 CDT Capo Poe MD [facility] CPT-58876 Level 3 Est. Patient 10:48:30 CDT Capo Poe MD [facility] CPT-34136 Level 3 Est. Patient 11:24:45 CDT Capo Poe MD [facility] CPT-31145 Level 3 Est. Patient 15:23:48 SPEEDER TENDER Capo Poe MD [facility] CPT-70104 Level 3 Est. Patient 15:10:03 SPEEDER TENDER Capo Poe MD [facility] CPT-63560 Level 3 Est. Patient 16:18:40 CDT Zoran Arzola MD [facility] Procedures Code Procedure Name Date Entry Date Standard Description CPT-41043 Venipuncture Draw Fee 09:32:34 CDT CPT-G0438 Initial Annual Wellness Exam 10:24:35 CDT CPT-97091 Venipuncture Draw Fee 09:46:29 CDT CPT-54195 Venipuncture Draw Fee 14:30:06 CDT CPT-59817 Venipuncture Draw Fee 10:58:22 CDT CPT-78997 Abd single AP View 08:32:00 CDT CPT-82392 Postop F/U Visit 21:13:08 CDT CPT-16996 Abd single AP View 15:50:24 CDT CPT-78196 Cystoscopy W/rem FB 15:21:28 CDT CPT-75151 Abd single AP View 14:06:45 CDT CPT-54932 Postop F/U Visit 09:48:32 CDT CPT-96498 Abd single AP View 13:58:26 CDT CPT-67979 Hip comp min 2V 10:27:18 SPEEDER TENDER CPT-93485 Urine Dip (Floor Use Only) 13:41:01 SPEEDER TENDER CPT-49131 Postop F/U Visit 11:17:48 CDT CPT-LR Lesion Removal 11:50:22 CDT CPT-OV Office Visit 11:50:22 CDT CPT-18655 Pneumovax 23 10:55:48 CDT CPT-02752 Administration single or combination vaccine inc oral 10 :55:48 CDT CPT-Cryo Cryotherapy 11:18:11 CDT CPT-OV Office Visit 11:18:11 CDT CPT-75932 LS spine AP and Lat 09:05:22 CDT CPT-71908 Bladder Scan 15:42:00 CDT CPT-07840 Cystoscopy 15:42:00 CDT CPT-OV Office Visit 16:37:19 SPEEDER TENDER CPT-54584 Bladder Scan 15:32:10 SPEEDER TENDER CPT-18010 Cystoscopy 15:32:10 SPEEDER TENDER CPT-47690 Abd single AP View 14:05:59 SPEEDER TENDER CPT-51448 Pill cam small bowel 09:48:39 SPEEDER TENDER CPT-83738 Urine Dip (Floor Use Only) 17:17:19 SPEEDER TENDER CPT-56051 Bladder Scan 17:17:19 SPEEDER TENDER CPT-OV Office Visit 11:50:26 SPEEDER TENDER CPT-73235 Bladder Scan 10:10:42 CDT CPT-64578 Venipuncture Draw Fee 09:14:04 CDT CPT-31289 Chest 2V Frontal and Lat 10:10:49 CDT CPT-88328 LS spine comp w obliq 11:50:11 CDT CPT-60702 Venipuncture Draw Fee 08:52:57 SPEEDER TENDER CPT-84701 Cystoscopy W/rem FB 18:37:28 CDT CPT-96197 Abd single AP View 16:18:40 CDT CPT-52934 Abd compl w upright 17:30:59 CDT
--- OUTSIDE RECORDS SUMMARY | 2016-11-22 16:47 | XMS REPORT | Clinical Summary ---
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 Simin [...] MG TABS 1 daily for infection LEVOFLOXACIN 43017243257 Active Leanna Baker APRN Active AZITHROMYCIN 250 MG ORAL TABS 2 po qd x 1, then 1 po qd x 4 AZITHROMYCIN 96940341034 Active Capo Poe MD Active PREDNISONE 20 MG ORAL TABS 2 po qd x 5 days PREDNISONE 11916853357 No Longer Active Capo Poe MD Active CARAFATE 1 GM ORAL TABS 1 tid SUCRALFATE 46366288323 Active Capo Poe MD Active RANITIDINE HCL 150 MG ORAL TABS 1 bid RANITIDINE HCL 27443200931 Active Capo Poe MD Active MULTIVITAMINS CAPS Take one by mouth daily MULTIPLE VITAMIN 78876672296 No Longer Active Capo Poe MD Active LISINOPRIL 10 MG TABS 1 tablet by mouth daily LISINOPRIL 34609334802 No Longer Active Capo Poe MD Active EQL IRON SUPPLEMENT THERAPY 325 MG ORAL TABS 1 tab po twice daily FERROUS SULFATE 94545163583 Active Jasmin Arboledalas RMA Active D ORAL TABS 2000 iu weekly D ORAL TABS Active Capo Poe MD Active CITALOPRAM HYDROBROMIDE 20 MG TABS 1 tablet by mouth daily CITALOPRAM HYDROBROMIDE 92633449770 Active Capo Poe MD Active CLARITIN 5 MG ORAL CHEW 1 tab po q day LORATADINE 21363879121 Active Felisa Daphney RMA Active VIIBRYD STARTER PACK 10 & 20 MG ORAL KIT 1 po qd as directed 2015 VILAZODONE HCL 55837793032 No Longer Active Felisa Daphney RMA Active HYDROXYZINE HCL 25 MG TAB 1 po qHS PRN Insomnia HYDROXYZINE HCL 79208634896 Active Capo Poe MD Active LORTAB 7.5-325 MG ORAL TABS 1 po q 6 hr prn pain HYDROCODONE- ACETAMINOPHEN 96268493493 No Longer Active Capo Poe MD Active FLOMAX 0.4 MG CAPS Take one by mouth daily TAMSULOSIN HCL 15232018409 No Longer Active Capo Poe MD Active TRIAMCINOLONE ACETONIDE 0.1 % CREA Apply to affected areas TID for up to 2 weeks TRIAMCINOLONE ACETONIDE 46200289411 Active Capo Poe MD Active NICOTINE 14 MG/24HR TRANS PT24 Apply/Change q 24hr NICOTINE 84624534405 No Longer Active Capo Poe MD Active TRAMADOL HCL 50 MG TABS 1-2 tablets every 6 hours as needed for pain TRAMADOL HCL 85894647927 No Longer Active Capo Poe MD Active SERTRALINE HCL 100 MG ORAL TABS take 1 tab daily SERTRALINE HCL 56155667444 No Longer Active Capo Poe MD Active LISINOPRIL-HYDROCHLOROTHIAZIDE 10-12.5 MG TABS 0.5 tab by mouth daily LISINOPRIL-HYDROCHLOROTHIAZIDE 71490784048 No Longer Active Capo Poe MD Active OMEPRAZOLE 20 MG CPDR 1 tablet by mouth daily OMEPRAZOLE 86763044853 Active Capo Poe MD Active WELLBUTRIN SR 150 MG ORAL [id number] 1 po BID BUPROPION HCL 11777316048 No Longer Active Capo Poe MD Active MIRALAX PACK 1 po qd PRN Constipation POLYETHYLENE GLYCOL 3350 68371857741 Active Capo Poe MD Active DULERA 100-5 MCG/ACT AERO 2 puffs BID MOMETASONE FURO- FORMOTEROL FUM 32026385540 Active Capo Poe MD Active ZOLOFT 100 MG TABS 1 po daily SERTRALINE HCL 25518832685 No Longer Active Zoran Arzola MD Active FERROUS SULFATE 325 (65 FE) MG TABS 1 tablet by mouth daily FERROUS SULFATE 51115736939 No Longer Active Capo Poe MD Active HYDROCODONE-ACETAMINOPHEN 7.5-300 MG TABS take one every six hours HYDROCODONE-ACETAMINOPHEN 46420647704 No Longer Active Capo Poe MD Active TRIAMCINOLONE ACETONIDE 0.1 % OINT Apply to affected areas TID for up to 2 weeks TRIAMCINOLONE ACETONIDE 90319495918 No Longer Active Joe Vargas RN Active FERROUS SULFATE 325 (65 FE) MG TABS Take one by mouth daily FERROUS SULFATE 43429196933 No Longer Active Capo Poe MD Active TRIAMCINOLONE ACETONIDE 0.1 % OINT Apply to affected areas TID for up to 2 weeks TRIAMCINOLONE ACETONIDE 54925518540 No Longer Active Capo Poe MD Active ADULT ASPIRIN LOW STRENGTH 81 MG TBDP qd ASPIRIN 80747804353 Active Zoran Arzola MD Active ALEVE 220 MG TAB prn NAPROXEN SODIUM 62958926304 Active Capo Poe MD Active MACROBID 100 MG CAP 1 cap by mouth twice daily NITROFURANTOIN MONOHYD MACRO 49038478338 No Longer Active Dona Becker Active AZITHROMYCIN 250 MG TABS 2 po qd x 1 day, then 1 po qd x 4 days AZITHROMYCIN 16895646356 No Longer Active Capo Poe MD Active FISH OIL 500 MG CAPS by mouth twice a day OMEGA-3 FATTY ACIDS 02389316857 Active Capo Poe MD Active FLAXSEED OIL 1000 MG CAPS Take two by mouth daily FLAXSEED (LINSEED) 18426880072 Active Zoran Arzola MD Active RED YEAST RICE 600 MG CAPS Take two by mouth daily RED YEAST RICE EXTRACT 27890062371 Active Zoran Arzola MD Active ICAPS MV TABS 2 po daily MULTIPLE VITAMINS-MINERALS 20701900054 Active Jam Arnold DO Active MACROBID 100 MG CAP 1 cap by mouth twice daily MACROBID 100 MG CAP 8184269 NITROFURANTOIN MONOHYD MACRO Inactive FERROUS SULFATE 325 (65 FE) MG TABS Take one by mouth daily FERROUS SULFATE 325 (65 FE) MG TABS 775873 FERROUS SULFATE Inactive HYDROCODONE-ACETAMINOPHEN 7.5-300 MG TABS take one every six hours HYDROCODONE-ACETAMINOPHEN 7.5-300 MG TABS 718890 HYDROCODONE- ACETAMINOPHEN Inactive FERROUS SULFATE 325 (65 FE) MG TABS 1 tablet by mouth daily FERROUS SULFATE 325 (65 FE) MG TABS 406612 FERROUS SULFATE Inactive ZOLOFT 100 MG TABS 1 po daily ZOLOFT 100 MG TABS 261745 SERTRALINE HCL Inactive SERTRALINE HCL 100 MG ORAL TABS take 1 tab daily SERTRALINE HCL 100 MG ORAL TABS 390903 SERTRALINE HCL Inactive TRAMADOL HCL 50 MG TABS 1-2 tablets every 6 hours as needed for pain TRAMADOL HCL 50 MG TABS 625415 TRAMADOL HCL Inactive NICOTINE 14 MG/24HR TRANS PT24 Apply/Change q 24hr NICOTINE 14 MG/24HR TRANS PT24 249365 NICOTINE Inactive FLOMAX 0.4 MG CAPS Take one by mouth daily FLOMAX 0.4 MG CAPS 041211 TAMSULOSIN HCL Inactive LORTAB 7.5-325 MG ORAL TABS 1 po q 6 hr prn pain LORTAB 7.5- 325 MG ORAL TABS 868913 HYDROCODONE-ACETAMINOPHEN Inactive VIIBRYD STARTER PACK 10 & 20 MG ORAL KIT 1 po qd as directed 2015 VIIBRYD STARTER PACK 10 & 20 MG ORAL KIT VILAZODONE HCL Inactive LISINOPRIL 10 MG TABS 1 tablet by mouth daily LISINOPRIL 10 MG TABS 952205 LISINOPRIL Inactive MULTIVITAMINS CAPS Take one by mouth daily MULTIVITAMINS CAPS MULTIPLE VITAMIN Inactive AZITHROMYCIN 250 MG TABS 2 po qd x 1 day, then 1 po qd x 4 days AZITHROMYCIN 250 MG TABS 3044502 AZITHROMYCIN Inactive TRIAMCINOLONE ACETONIDE 0.1 % OINT Apply to affected areas TID for up to 2 weeks TRIAMCINOLONE ACETONIDE 0.1 % OINT 0230845 TRIAMCINOLONE ACETONIDE Inactive TRIAMCINOLONE ACETONIDE 0.1 % OINT Apply to affected areas TID for up to 2 weeks TRIAMCINOLONE ACETONIDE 0.1 % OINT 7921728 TRIAMCINOLONE ACETONIDE Inactive PREDNISONE 20 MG ORAL TABS 2 po qd x 5 days PREDNISONE 20 MG ORAL TABS 500243 PREDNISONE Inactive Advance Directives Directive Description Start [...] Panel - Chemistry sodium, serum 137 mmol/L 802-900 5840/07/26 carbon dioxide, venous blood 27.3 mmol/L 21.0-32.0 [...] ... - Chemistry sodium, serum 141 mmol/L 661-678 5226/01/27 carbon dioxide, venous blood 29.7 mmol/L 21.0-32.0 [...] % 11.0-15.0 platelet count 214 THOUSAND/UL 10*3/mm3 276-780 9481/03/31 mean platelet volume 8.4 fL 7.5-12.5 Encounters Code Encounter Date Provider Facility CPT-29330 Level 3 Est. Patient 11:31:49 CDT Leanna Baker APRN [facility] CPT-73639 Level 3 Est. Patient 09:44:06 CDT Capo Poe MD [facility] CPT-76770 Level 4 Est. Patient 09:26:11 BOTTOM PRESSER Capo Poe MD [facility] CPT-87141 Level 4 Est. Patient 08:53:08 CDT Capo Poe MD [facility] CPT-72037 Level 4 Est. Patient 10:22:57 CDT Capo Poe MD [facility] CPT-54505 Level 4 Est. Patient 13:44:30 CDT Capo Poe MD [facility] CPT-19421 Level 3 Est. Patient 14:59:32 BOTTOM PRESSER Capo Poe MD [facility] CPT-46603 Level 4 Est. Patient 10:46:15 BOTTOM PRESSER Capo Poe MD [facility] CPT-86370 Level 3 Est. Patient 11:00:53 CDT Capo Poe MD [facility] CPT-81917 Level 3 Est. Patient 09:39:35 CDT Capo Poe MD [facility] CPT-25895 Level 3 Est. Patient 09:27:01 CDT Capo Poe MD [facility] CPT-81038 Level 3 Est. Patient 18:37:08 CDT Zoran Arzola MD [facility] CPT-40430 Level 3 Est. Patient 15:00:28 CDT Capo Poe MD [facility] CPT-64389 Level 3 Est. Patient 08:20:19 CDT Zoran Arzola MD [facility] CPT-16897 Level 3 Est. Patient 09:22:21 CDT Capo Poe MD [facility] CPT-47618 Level 4 Est. Patient 10:21:30 BOTTOM PRESSER Capo Poe MD [facility] CPT-10474 Level 3 Est. Patient 17:08:51 BOTTOM PRESSER Zoran Arzola MD [facility] CPT-78688 Level 4 Est. Patient 09:44:42 CDT Capo Poe MD [facility] CPT-42226 Level 4 Est. Patient 10:39:29 CDT Capo Poe MD [facility] CPT-20493 Level 3 Est. Patient 17:45:23 CDT Zoran Arzola MD [facility] CPT-26467 Level 4 Est. Patient 08:50:44 CDT Capo Poe MD [facility] CPT-30281 Level 3 Est. Patient 10:39:51 BOTTOM PRESSER Capo Poe MD [facility] CPT-73754 Level 4 Est. Patient 09:44:24 BOTTOM PRESSER Capo Poe MD [facility] CPT-52001 Level 3 Est. Patient 14:48:42 BOTTOM PRESSER Zoran Arzola MD [facility] CPT-73264 Level 4 Est. Patient 10:24:02 CDT Capo Poe MD [facility] CPT-71949 Level 3 Est. Patient 15:42:00 CDT Maya WRIGHTP [facility] CPT-19887 Level 4 Est. Patient 13:34:15 CDT Capo Poe MD [facility] CPT-31855 Level 3 Est. Patient 15:32:10 BOTTOM PRESSER Zoran Arzola MD [facility] CPT-25729 Level 3 New Patient 17:17:19 BOTTOM PRESSER Zoran Arzola MD [facility] CPT-57133 Level 4 Est. Patient 10:25:01 BOTTOM PRESSER Capo Poe MD [facility] CPT-67416 Level 3 Est. Patient 10:10:42 CDT Zoran Arzola MD [facility] CPT-76006 Level 3 Est. Patient 22:30:02 CDT Zoran Arzola MD [facility] CPT-83527 Level 4 Est. Patient 09:54:20 CDT Capo Poe MD [facility] CPT-06753 Level 3 Est. Patient 10:48:30 CDT Capo Poe MD [facility] CPT-06250 Level 3 Est. Patient 11:24:45 CDT Capo Poe MD [facility] CPT-63972 Level 3 Est. Patient 15:23:48 BOTTOM PRESSER Capo Poe MD [facility] CPT-17172 Level 3 Est. Patient 15:10:03 BOTTOM PRESSER Capo Poe MD [facility] CPT-95077 Level 3 Est. Patient 16:18:40 CDT Zoran Arzola MD [facility] Procedures Code Procedure Name Date Entry Date Standard Description CPT-50621 Chest 2V Frontal and Lat - XRAY USE ONLY 11:51:24 CDT CPT-12385 Venipuncture Draw Fee 11:31:49 CDT CPT-12814 Hemoccult IFOBT - LAB USE ONLY 14:11:43 BOTTOM PRESSER CPT-10433 TPSA - LAB USE ONLY 10:37:52 BOTTOM PRESSER CPT-49483 TSH - LAB USE ONLY 10:37:51 BOTTOM PRESSER CPT-36783 CMP - LAB USE ONLY 10:37:51 BOTTOM PRESSER CPT-12328 CBC with Diff - LAB USE ONLY 10:37:51 BOTTOM PRESSER CPT-76486 Venipuncture Draw Fee 10:37:51 BOTTOM PRESSER CPT-000 Give Pneumovax 10:39:30 CDT CPT-30395 Venipuncture Draw Fee 09:32:34 CDT CPT-G0438 Initial Annual Wellness Exam 10:24:35 CDT CPT-98963 Venipuncture Draw Fee 09:46:29 CDT CPT-52537 Venipuncture Draw Fee 14:30:06 CDT CPT-18160 Venipuncture Draw Fee 10:58:22 CDT CPT-69028 Abd single AP View 08:32:00 CDT CPT-96436 Postop F/U Visit 21:13:08 CDT CPT-17038 Abd single AP View 15:50:24 CDT CPT-11129 Cystoscopy W/rem FB 15:21:28 CDT CPT-11181 Abd single AP View 14:06:45 CDT CPT-64708 Postop F/U Visit 09:48:32 CDT CPT-45120 Abd single AP View 13:58:26 CDT CPT-69690 Hip comp min 2V 10:27:18 BOTTOM PRESSER CPT-08297 Urine Dip (Floor Use Only) 13:41:01 BOTTOM PRESSER CPT-90522 Postop F/U Visit 11:17:48 CDT CPT-LR Lesion Removal 11:50:22 CDT CPT-OV Office Visit 11:50:22 CDT CPT-23251 Pneumovax 23 10:55:48 CDT CPT-01147 Administration single or combination vaccine inc oral 10 :55:48 CDT CPT-Cryo Cryotherapy 11:18:11 CDT CPT-OV Office Visit 11:18:11 CDT CPT-29147 LS spine AP and Lat 09:05:22 CDT CPT-09990 Bladder Scan 15:42:00 CDT CPT-39780 Cystoscopy 15:42:00 CDT CPT-OV Office Visit 16:37:19 BOTTOM PRESSER CPT-85427 Bladder Scan 15:32:10 BOTTOM PRESSER CPT-62690 Cystoscopy 15:32:10 BOTTOM PRESSER CPT-49743 Abd single AP View 14:05:59 BOTTOM PRESSER CPT-43168 Pill cam small bowel 09:48:39 BOTTOM PRESSER CPT-45916 Urine Dip (Floor Use Only) 17:17:19 BOTTOM PRESSER CPT-00101 Bladder Scan 17:17:19 BOTTOM PRESSER CPT-OV Office Visit 11:50:26 BOTTOM PRESSER CPT-94519 Bladder Scan 10:10:42 CDT CPT-10084 Venipuncture Draw Fee 09:14:04 CDT CPT-65352 Chest 2V Frontal and Lat 10:10:49 CDT CPT-86587 LS spine comp w obliq 11:50:11 CDT CPT-49326 Venipuncture Draw Fee 08:52:57 BOTTOM PRESSER CPT-15269 Cystoscopy W/rem FB 18:37:28 CDT CPT-02789 Abd single AP View 16:18:40 CDT CPT-48919 Abd compl w upright 17:30:59 CDT
--- OUTSIDE RECORDS SUMMARY | 2016-11-22 16:48 | XMS REPORT | Clinical Summary ---
Author Author Admin, MARGE Organization [facility] Address Unknown Phone Unavailable Allergies, Adverse [...] 1 po q6hr PRN Itching HYDROXYZINE HCL 60373293562 Active Capo Poe MD Active TRIAMCINOLONE ACETONIDE 0.1 % CREA Apply to affected areas TID for up to 2 weeks TRIAMCINOLONE ACETONIDE 89744279127 Active Capo Poe MD Active NICOTINE 14 MG/24HR TRANS PT24 Apply/Change q 24hr NICOTINE 10934990866 No Longer Active Capo Poe MD Active TRAMADOL HCL 50 MG TABS 1-2 tablets every 6 hours as needed for pain TRAMADOL HCL 70429509248 No Longer Active Capo Poe MD Active SERTRALINE HCL 100 MG ORAL TABS take 1 tab daily SERTRALINE HCL 81924835228 No Longer Active Capo Poe MD Active LISINOPRIL-HYDROCHLOROTHIAZIDE 10-12.5 MG TABS 0.5 tab by mouth daily LISINOPRIL-HYDROCHLOROTHIAZIDE 32061234509 Active Capo Poe MD Active OMEPRAZOLE 20 MG CPDR 1 tablet by mouth daily OMEPRAZOLE 62057381979 Active Capo Poe MD Active WELLBUTRIN SR 150 MG ORAL TD31D-WIG 1 po BID BUPROPION HCL 18642791849 Active Capo Poe MD Active LORTAB 7.5-325 MG ORAL TABS 1 po q 6 hr prn pain HYDROCODONE- ACETAMINOPHEN 88483289529 Active Capo Poe MD Active FLOMAX 0.4 MG CAPS Take one by mouth daily TAMSULOSIN HCL 61950226093 Active Capo Poe MD Active MIRALAX PACK 1 po qd PRN Constipation POLYETHYLENE GLYCOL 3350 83709688901 Active Capo Poe MD Active DULERA 100-5 MCG/ACT AERO 2 puffs BID MOMETASONE FURO- FORMOTEROL FUM 28551705696 Active Capo Poe MD Active ZOLOFT 100 MG TABS 1 po daily SERTRALINE HCL 29985556318 No Longer Active Zoran Arzola MD Active FERROUS SULFATE 325 (65 FE) MG TABS 1 tablet by mouth daily FERROUS SULFATE 47701887934 No Longer Active Capo Poe MD Active HYDROCODONE-ACETAMINOPHEN 7.5-300 MG TABS take one every six hours HYDROCODONE-ACETAMINOPHEN 12366950816 No Longer Active Capo Poe MD Active TRIAMCINOLONE ACETONIDE 0.1 % OINT Apply to affected areas TID for up to 2 weeks TRIAMCINOLONE ACETONIDE 92809409284 No Longer Active Joe Vargas RN Active FERROUS SULFATE 325 (65 FE) MG TABS Take one by mouth daily FERROUS SULFATE 39904361088 No Longer Active Capo Poe MD Active TRIAMCINOLONE ACETONIDE 0.1 % OINT Apply to affected areas TID for up to 2 weeks TRIAMCINOLONE ACETONIDE 56471850737 No Longer Active Capo Poe MD Active ADULT ASPIRIN LOW STRENGTH 81 MG TBDP qd ASPIRIN 29173632654 Active Zoran Arzola MD Active ALEVE 220 MG TAB prn NAPROXEN SODIUM 32206671205 Active Capo Poe MD Active MACROBID 100 MG CAP 1 cap by mouth twice daily NITROFURANTOIN MONOHYD MACRO 12219820993 No Longer Active Dona Becker Active AZITHROMYCIN 250 MG TABS 2 po qd x 1 day, then 1 po qd x 4 days AZITHROMYCIN 84698695557 No Longer Active Capo Poe MD Active FISH OIL 500 MG CAPS by mouth twice a day OMEGA-3 FATTY ACIDS 83756494062 Active Capo Poe MD Active FLAXSEED OIL 1000 MG CAPS Take two by mouth daily FLAXSEED (LINSEED) 30298326748 Active Zoran Arzola MD Active RED YEAST RICE 600 MG CAPS Take two by mouth daily RED YEAST RICE EXTRACT 43845809123 Active Zoran Arzola MD Active MULTIVITAMINS CAPS Take one by mouth daily MULTIPLE VITAMIN 27490150789 Active Zoran Arzola MD Active ICAPS MV TABS 2 po daily MULTIPLE VITAMINS-MINERALS 66298165632 Active Jam Arnold DO Active MACROBID 100 MG CAP 1 cap by mouth twice daily MACROBID 100 MG CAP 8617746 NITROFURANTOIN MONOHYD MACRO Inactive FERROUS SULFATE 325 (65 FE) MG TABS Take one by mouth daily FERROUS SULFATE 325 (65 FE) MG TABS 219316 FERROUS SULFATE Inactive HYDROCODONE-ACETAMINOPHEN 7.5-300 MG TABS take one every six hours HYDROCODONE-ACETAMINOPHEN 7.5-300 MG TABS 423654 HYDROCODONE- ACETAMINOPHEN Inactive FERROUS SULFATE 325 (65 FE) MG TABS 1 tablet by mouth daily FERROUS SULFATE 325 (65 FE) MG TABS 982655 FERROUS SULFATE Inactive ZOLOFT 100 MG TABS 1 po daily ZOLOFT 100 MG TABS 370077 SERTRALINE HCL Inactive SERTRALINE HCL 100 MG ORAL TABS take 1 tab daily SERTRALINE HCL 100 MG ORAL TABS 607788 SERTRALINE HCL Inactive TRAMADOL HCL 50 MG TABS 1-2 tablets every 6 hours as needed for pain TRAMADOL HCL 50 MG TABS 358791 TRAMADOL HCL Inactive NICOTINE 14 MG/24HR TRANS PT24 Apply/Change q 24hr NICOTINE 14 MG/24HR TRANS PT24 202677 NICOTINE Inactive AZITHROMYCIN 250 MG TABS 2 po qd x 1 day, then 1 po qd x 4 days AZITHROMYCIN 250 MG TABS 0156022 AZITHROMYCIN Inactive TRIAMCINOLONE ACETONIDE 0.1 % OINT Apply to affected areas TID for up to 2 weeks TRIAMCINOLONE ACETONIDE 0.1 % OINT 4788125 TRIAMCINOLONE ACETONIDE Inactive TRIAMCINOLONE ACETONIDE 0.1 % OINT Apply to affected areas TID for up to 2 weeks TRIAMCINOLONE ACETONIDE 0.1 % OINT 8758333 TRIAMCINOLONE ACETONIDE Inactive Advance Directives Directive Description [...] Panel - Chemistry sodium, serum 139 mmol/L 347-287 5093/07/30 potassium, serum 4.7 mmol/L 3.5-5.2 chloride, serum 101 mmol/L 98-107 carbon dioxide, venous blood 34.8 mmol/L 21.0-32.0 blood glucose 124 mg/dL 65-110 calcium, serum 8.9 mg/dL 8.5-10.1 urea nitrogen, blood 18 mg/dL 7-18 creatinine, serum 1.40 mg/dL 0.60-1.30 Lab Report: Comp. Metabolic Panel, Lipid Panel, HGBA1C, CBC, MICROALB/CR ... - Chemistry sodium, serum 138 mmol/L 406-748 2630/03/18 carbon dioxide, venous blood 25.5 mmol/L 21.0-32.0 potassium, serum 4.6 mmol/L 3.5-5.2 chloride, serum 101 mmol/L 98-107 blood glucose 129 mg/dL 65-110 urea nitrogen, blood 20 mg/dL 7-18 creatinine, serum 1.87 mg/dL 0.55-1.30 alanine aminotransferase (SGPT), serum 26 U/L 12-78 aspartate aminotransferase (SGOT), serum 20 U/L 15-37 calcium, serum 8.8 mg/dL 8.5-10.1 bilirubin, serum, total 0.40 mg/dL 0.00-1.00 cholesterol, serum 251 mg/dL 174-645 4955/03/18 triglyceride, serum, fasting 135 mg/dL 30-200 HDL [...] antigen 1.11 ng/mL 0.00-4.00 prostate specific antigen 0.80 ng/mL [...] (dipstick) 0.2 protein, urine, semiquantitative (dipstick) negative urinalysis, routine Clean Catch culture status Yes Encounters Code Encounter Date Provider Facility CPT-80719 Level 3 Est. Patient 14:59:32 LEATHER POLISHER Capo Poe MD [facility] CPT-55423 Level 4 Est. Patient 10:46:15 LEATHER POLISHER Capo Poe MD [facility] CPT-04640 Level 3 Est. Patient 11:00:53 CDT Capo Poe MD [facility] CPT-94776 Level 3 Est. Patient 09:39:35 CDT Capo Poe MD [facility] CPT-92195 Level 3 Est. Patient 09:27:01 CDT Capo Poe MD [facility] CPT-59681 Level 3 Est. Patient 18:37:08 CDT Zoran Arzola MD [facility] CPT-40916 Level 3 Est. Patient 15:00:28 CDT Capo Poe MD [facility] CPT-47351 Level 3 Est. Patient 08:20:19 CDT Zoran Arzola MD [facility] CPT-88835 Level 3 Est. Patient 09:22:21 CDT Capo Poe MD [facility] CPT-45418 Level 4 Est. Patient 10:21:30 LEATHER POLISHER Capo Poe MD [facility] CPT-28463 Level 3 Est. Patient 17:08:51 LEATHER POLISHER Zoran Arzola MD [facility] CPT-81942 Level 4 Est. Patient 09:44:42 CDT Capo Poe MD [facility] CPT-39987 Level 4 Est. Patient 10:39:29 CDT Capo Poe MD [facility] CPT-60717 Level 3 Est. Patient 17:45:23 CDT Zoran Arzola MD [facility] CPT-52587 Level 4 Est. Patient 08:50:44 CDT Capo Poe MD [facility] CPT-94520 Level 3 Est. Patient 10:39:51 LEATHER POLISHER Capo Poe MD [facility] CPT-89923 Level 4 Est. Patient 09:44:24 LEATHER POLISHER Capo Poe MD [facility] CPT-45425 Level 3 Est. Patient 14:48:42 LEATHER POLISHER Zoran Arzola MD [facility] CPT-51295 Level 4 Est. Patient 10:24:02 CDT Capo Poe MD [facility] CPT-54262 Level 3 Est. Patient 15:42:00 CDT Maya Brownlee ERNST [facility] CPT-16754 Level 4 Est. Patient 13:34:15 CDT Capo Poe MD [facility] CPT-03222 Level 3 Est. Patient 15:32:10 LEATHER POLISHER Zoran Arzola MD [facility] CPT-54492 Level 3 New Patient 17:17:19 LEATHER POLISHER Zoran Arzola MD [facility] CPT-80608 Level 4 Est. Patient 10:25:01 LEATHER POLISHER Capo Poe MD [facility] CPT-93006 Level 3 Est. Patient 10:10:42 CDT Zoran Arzola MD [facility] CPT-92576 Level 3 Est. Patient 22:30:02 CDT Zoran Arzola MD [facility] CPT-35615 Level 4 Est. Patient 09:54:20 CDT Capo Poe MD [facility] CPT-94615 Level 3 Est. Patient 10:48:30 CDT Capo Poe MD [facility] CPT-11173 Level 3 Est. Patient 11:24:45 CDT Capo Poe MD [facility] CPT-61345 Level 3 Est. Patient 15:23:48 LEATHER POLISHER Capo Poe MD [facility] CPT-84662 Level 3 Est. Patient 15:10:03 LEATHER POLISHER Capo Poe MD [facility] CPT-76490 Level 3 Est. Patient 16:18:40 CDT Zoran Arzola MD [facility] Procedures Code Procedure Name Date Entry Date Standard Description CPT-21598 Venipuncture Draw Fee 09:46:29 CDT CPT-63501 Venipuncture Draw Fee 14:30:06 CDT CPT-85714 Venipuncture Draw Fee 10:58:22 CDT CPT-33560 Abd single AP View 08:32:00 CDT CPT-56565 Postop F/U Visit 21:13:08 CDT CPT-75932 Abd single AP View 15:50:24 CDT CPT-65811 Cystoscopy W/rem FB 15:21:28 CDT CPT-92916 Abd single AP View 14:06:45 CDT CPT-44995 Postop F/U Visit 09:48:32 CDT CPT-97791 Abd single AP View 13:58:26 CDT CPT-45924 Hip comp min 2V 10:27:18 LEATHER POLISHER CPT-72399 Urine Dip (Floor Use Only) 13:41:01 LEATHER POLISHER CPT-80593 Postop F/U Visit 11:17:48 CDT CPT-LR Lesion Removal 11:50:22 CDT CPT-OV Office Visit 11:50:22 CDT CPT-80324 Pneumovax 23 10:55:48 CDT CPT-57178 Administration single or combination vaccine inc oral 10 :55:48 CDT CPT-Cryo Cryotherapy 11:18:11 CDT CPT-OV Office Visit 11:18:11 CDT CPT-94395 LS spine AP and Lat 09:05:22 CDT CPT-58099 Bladder Scan 15:42:00 CDT CPT-62842 Cystoscopy 15:42:00 CDT CPT-OV Office Visit 16:37:19 LEATHER POLISHER CPT-59895 Bladder Scan 15:32:10 [employer] CPT-48175 Cystoscopy 15:32:10 [employer] CPT-71942 Abd single AP View 14:05:59 [employer] CPT-42397 Pill cam small bowel 09:48:39 [employer] CPT-81343 Urine Dip (Floor Use Only) 17:17:19 [employer] CPT-31073 Bladder Scan 17:17:19 [employer] CPT-OV Office Visit 11:50:26 [employer] CPT-85078 Bladder Scan 10:10:42 CDT CPT-44755 Venipuncture Draw Fee 09:14:04 CDT CPT-42141 Chest 2V Frontal and Lat 10:10:49 CDT CPT-41680 LS spine comp w obliq 11:50:11 CDT CPT-19018 Venipuncture Draw Fee 08:52:57 [employer] CPT-92730 Cystoscopy W/rem FB 18:37:28 CDT CPT-16799 Abd single AP View 16:18:40 CDT CPT-75637 Abd compl w upright 17:30:59 CDT
--- OUTSIDE RECORDS SUMMARY | 2016-11-22 16:50 | XMS REPORT | Clinical Summary ---
Author Author Admin, QIE Organization [employer] Address Unknown Phone Unavailable Allergies, Adverse Reactions, [...] 1 tablet by mouth daily CITALOPRAM HYDROBROMIDE 66413631561 Active Felisa Daphney RMMarva Active CLARITIN 5 MG ORAL CHEW 1 tab po q day LORATADINE 88193391890 Active Felisa Daphney RMA Active VIIBRYD STARTER PACK 10 & 20 MG ORAL KIT 1 po qd as directed 2015 VILAZODONE HCL 93348814576 No Longer Active Felisa Daphney RMA Active HYDROXYZINE HCL 25 MG TAB 1 po qHS PRN Insomnia HYDROXYZINE HCL 01574271344 Active Capo Poe MD Active LISINOPRIL 10 MG TABS 1 tablet by mouth daily LISINOPRIL 01439550094 Active Capo Poe MD Active LORTAB 7.5-325 MG ORAL TABS 1 po q 6 hr prn pain HYDROCODONE- ACETAMINOPHEN 69483905429 No Longer Active Capo Poe MD Active FLOMAX 0.4 MG CAPS Take one by mouth daily TAMSULOSIN HCL 48438806738 No Longer Active Capo Poe MD Active TRIAMCINOLONE ACETONIDE 0.1 % CREA Apply to affected areas TID for up to 2 weeks TRIAMCINOLONE ACETONIDE 07914475655 Active Capo Poe MD Active NICOTINE 14 MG/24HR TRANS PT24 Apply/Change q 24hr NICOTINE 10372920930 No Longer Active Capo Poe MD Active TRAMADOL HCL 50 MG TABS 1-2 tablets every 6 hours as needed for pain TRAMADOL HCL 71969446595 No Longer Active Capo Poe MD Active SERTRALINE HCL 100 MG ORAL TABS take 1 tab daily SERTRALINE HCL 06612852031 No Longer Active Capo Poe MD Active LISINOPRIL-HYDROCHLOROTHIAZIDE 10-12.5 MG TABS 0.5 tab by mouth daily LISINOPRIL-HYDROCHLOROTHIAZIDE 39024583552 No Longer Active Capo Poe MD Active OMEPRAZOLE 20 MG CPDR 1 tablet by mouth daily OMEPRAZOLE 11310258421 Active Capo Poe MD Active WELLBUTRIN SR 150 MG ORAL [id number] 1 po BID BUPROPION HCL 52682332187 No Longer Active Capo Poe MD Active MIRALAX PACK 1 po qd PRN Constipation POLYETHYLENE GLYCOL 3350 52608911352 Active Capo Poe MD Active DULERA 100-5 MCG/ACT AERO 2 puffs BID MOMETASONE FURO- FORMOTEROL FUM 18000128781 Active Capo Poe MD Active ZOLOFT 100 MG TABS 1 po daily SERTRALINE HCL 63599833927 No Longer Active Zoran Arzola MD Active FERROUS SULFATE 325 (65 FE) MG TABS 1 tablet by mouth daily FERROUS SULFATE 38237711154 No Longer Active Capo Poe MD Active HYDROCODONE-ACETAMINOPHEN 7.5-300 MG TABS take one every six hours HYDROCODONE-ACETAMINOPHEN 56048539818 No Longer Active Capo Poe MD Active TRIAMCINOLONE ACETONIDE 0.1 % OINT Apply to affected areas TID for up to 2 weeks TRIAMCINOLONE ACETONIDE 57925017049 No Longer Active Joe Vargas RN Active FERROUS SULFATE 325 (65 FE) MG TABS Take one by mouth daily FERROUS SULFATE 64119704068 No Longer Active Capo Poe MD Active TRIAMCINOLONE ACETONIDE 0.1 % OINT Apply to affected areas TID for up to 2 weeks TRIAMCINOLONE ACETONIDE 13247560870 No Longer Active Capo Poe MD Active ADULT ASPIRIN LOW STRENGTH 81 MG TBDP qd ASPIRIN 34493660463 Active Zoran Arzola MD Active ALEVE 220 MG TAB prn NAPROXEN SODIUM 69535059930 Active Capo Poe MD Active MACROBID 100 MG CAP 1 cap by mouth twice daily NITROFURANTOIN MONOHYD MACRO 61279769198 No Longer Active Dona Becker Active AZITHROMYCIN 250 MG TABS 2 po qd x 1 day, then 1 po qd x 4 days AZITHROMYCIN 63067401725 No Longer Active Capo Poe MD Active FISH OIL 500 MG CAPS by mouth twice a day OMEGA-3 FATTY ACIDS 76180377169 Active Capo Poe MD Active FLAXSEED OIL 1000 MG CAPS Take two by mouth daily FLAXSEED (LINSEED) 48800087178 Active Zoran Arzola MD Active RED YEAST RICE 600 MG CAPS Take two by mouth daily RED YEAST RICE EXTRACT 12341352407 Active Zoran Arzola MD Active MULTIVITAMINS CAPS Take one by mouth daily MULTIPLE VITAMIN 38983811434 Active Zoran Arzola MD Active ICAPS MV TABS 2 po daily MULTIPLE VITAMINS-MINERALS 97847783928 Active Jam Arnold DO Active MACROBID 100 MG CAP 1 cap by mouth twice daily MACROBID 100 MG CAP 8348006 NITROFURANTOIN MONOHYD MACRO Inactive FERROUS SULFATE 325 (65 FE) MG TABS Take one by mouth daily FERROUS SULFATE 325 (65 FE) MG TABS 740395 FERROUS SULFATE Inactive HYDROCODONE-ACETAMINOPHEN 7.5-300 MG TABS take one every six hours HYDROCODONE-ACETAMINOPHEN 7.5-300 MG TABS 343283 HYDROCODONE- ACETAMINOPHEN Inactive FERROUS SULFATE 325 (65 FE) MG TABS 1 tablet by mouth daily FERROUS SULFATE 325 (65 FE) MG TABS 325271 FERROUS SULFATE Inactive ZOLOFT 100 MG TABS 1 po daily ZOLOFT 100 MG TABS 161541 SERTRALINE HCL Inactive SERTRALINE HCL 100 MG ORAL TABS take 1 tab daily SERTRALINE HCL 100 MG ORAL TABS 852776 SERTRALINE HCL Inactive TRAMADOL HCL 50 MG TABS 1-2 tablets every 6 hours as needed for pain TRAMADOL HCL 50 MG TABS 625218 TRAMADOL HCL Inactive NICOTINE 14 MG/24HR TRANS PT24 Apply/Change q 24hr NICOTINE 14 MG/24HR TRANS PT24 481726 NICOTINE Inactive FLOMAX 0.4 MG CAPS Take one by mouth daily FLOMAX 0.4 MG CAPS 546841 TAMSULOSIN HCL Inactive LORTAB 7.5-325 MG ORAL TABS 1 po q 6 hr prn pain LORTAB 7.5- 325 MG ORAL TABS 581449 HYDROCODONE-ACETAMINOPHEN Inactive VIIBRYD STARTER PACK 10 & 20 MG ORAL KIT 1 po qd as directed 2015 VIIBRYD STARTER PACK 10 & 20 MG ORAL KIT VILAZODONE HCL Inactive AZITHROMYCIN 250 MG TABS 2 po qd x 1 day, then 1 po qd x 4 days AZITHROMYCIN 250 MG TABS 3291843 AZITHROMYCIN Inactive TRIAMCINOLONE ACETONIDE 0.1 % OINT Apply to affected areas TID for up to 2 weeks TRIAMCINOLONE ACETONIDE 0.1 % OINT 0299335 TRIAMCINOLONE ACETONIDE Inactive TRIAMCINOLONE ACETONIDE 0.1 % OINT Apply to affected areas TID for up to 2 weeks TRIAMCINOLONE ACETONIDE 0.1 % OINT 9948961 TRIAMCINOLONE ACETONIDE Inactive Advance Directives Directive Description [...] Panel - Chemistry sodium, serum 139 mmol/L 483-001 1407/07/30 potassium, serum 4.7 mmol/L 3.5-5.2 chloride, serum [...] mg/g mg/g{creat} 0-29 sodium, serum 138 mmol/L 272-488 5198/03/18 carbon dioxide, venous blood 25.5 mmol/L 21.0-32.0 potassium, serum 4.6 mmol/L 3.5-5.2 chloride, serum 101 mmol/L 98-107 blood glucose 129 mg/dL 65-110 urea nitrogen, blood 20 mg/dL 7-18 creatinine, serum 1.87 mg/dL 0.55-1.30 alanine aminotransferase (SGPT), serum 26 U/L 12-78 aspartate aminotransferase (SGOT), serum 20 U/L 15-37 calcium, serum 8.8 mg/dL 8.5-10.1 bilirubin, serum, total 0.40 mg/dL 0.00-1.00 cholesterol, serum 251 mg/dL 531-430 1192/03/18 triglyceride, serum, fasting 135 mg/dL 30-200 HDL [...] 0.00-4.00 Encounters Code Encounter Date Provider Facility CPT-59532 Level 4 Est. Patient 13:44:30 CDT Capo Poe MD [facility] CPT-56554 Level 3 Est. Patient 14:59:32 BUTADIENE COMPRESSOR OPERATOR Capo Poe MD [facility] CPT-20994 Level 4 Est. Patient 10:46:15 BUTADIENE COMPRESSOR OPERATOR Capo Poe MD [facility] CPT-09539 Level 3 Est. Patient 11:00:53 CDT Capo Poe MD [facility] CPT-02918 Level 3 Est. Patient 09:39:35 CDT Capo Poe MD [facility] CPT-21950 Level 3 Est. Patient 09:27:01 CDT Capo Poe MD [facility] CPT-96712 Level 3 Est. Patient 18:37:08 CDT Zoran Arzola MD [facility] CPT-52182 Level 3 Est. Patient 15:00:28 CDT Capo Poe MD [facility] CPT-46177 Level 3 Est. Patient 08:20:19 CDT Zoran Arzola MD [facility] CPT-35262 Level 3 Est. Patient 09:22:21 CDT Capo Poe MD [facility] CPT-56443 Level 4 Est. Patient 10:21:30 BUTADIENE COMPRESSOR OPERATOR Capo Poe MD [facility] CPT-31254 Level 3 Est. Patient 17:08:51 BUTADIENE COMPRESSOR OPERATOR Zoran Arzola MD [facility] CPT-64903 Level 4 Est. Patient 09:44:42 CDT Capo Poe MD [facility] CPT-56945 Level 4 Est. Patient 10:39:29 CDT Capo Poe MD [facility] CPT-15506 Level 3 Est. Patient 17:45:23 CDT Zoran Arzola MD [facility] CPT-52265 Level 4 Est. Patient 08:50:44 CDT Capo Poe MD [facility] CPT-79921 Level 3 Est. Patient 10:39:51 BUTADIENE COMPRESSOR OPERATOR Capo Poe MD [facility] CPT-37492 Level 4 Est. Patient 09:44:24 BUTADIENE COMPRESSOR OPERATOR Capo Poe MD [facility] CPT-47263 Level 3 Est. Patient 14:48:42 BUTADIENE COMPRESSOR OPERATOR Zoran Arzola MD [facility] CPT-46683 Level 4 Est. Patient 10:24:02 CDT Capo Poe MD [facility] CPT-38526 Level 3 Est. Patient 15:42:00 CDT Maya DUKSE [facility] CPT-72634 Level 4 Est. Patient 13:34:15 CDT Capo Poe MD [facility] CPT-27208 Level 3 Est. Patient 15:32:10 BUTADIENE COMPRESSOR OPERATOR Zoran Arzola MD [facility] CPT-44183 Level 3 New Patient 17:17:19 BUTADIENE COMPRESSOR OPERATOR Zoran Arzola MD [facility] CPT-05553 Level 4 Est. Patient 10:25:01 BUTADIENE COMPRESSOR OPERATOR Capo Poe MD [facility] CPT-95047 Level 3 Est. Patient 10:10:42 CDT Zoran Arzola MD [facility] CPT-60167 Level 3 Est. Patient 22:30:02 CDT Zoran Arzola MD [facility] CPT-92040 Level 4 Est. Patient 09:54:20 CDT Capo Poe MD [facility] CPT-78165 Level 3 Est. Patient 10:48:30 CDT Capo Poe MD [facility] CPT-50783 Level 3 Est. Patient 11:24:45 CDT Capo Poe MD [facility] CPT-36335 Level 3 Est. Patient 15:23:48 BUTADIENE COMPRESSOR OPERATOR Capo Poe MD [facility] CPT-34600 Level 3 Est. Patient 15:10:03 BUTADIENE COMPRESSOR OPERATOR Capo Poe MD [facility] CPT-16113 Level 3 Est. Patient 16:18:40 CDT Zoran Arzola MD [facility] Procedures Code Procedure Name Date Entry Date Standard Description CPT-G0438 Initial Annual Wellness Exam 10:24:35 CDT CPT-00468 Venipuncture Draw Fee 09:46:29 CDT CPT-18040 Venipuncture Draw Fee 14:30:06 CDT CPT-52275 Venipuncture Draw Fee 10:58:22 CDT CPT-38551 Abd single AP View 08:32:00 CDT CPT-59335 Postop F/U Visit 21:13:08 CDT CPT-27258 Abd single AP View 15:50:24 CDT CPT-83486 Cystoscopy W/rem FB 15:21:28 CDT CPT-94545 Abd single AP View 14:06:45 CDT CPT-57584 Postop F/U Visit 09:48:32 CDT CPT-00290 Abd single AP View 13:58:26 CDT CPT-79581 Hip comp min 2V 10:27:18 BUTADIENE COMPRESSOR OPERATOR CPT-39831 Urine Dip (Floor Use Only) 13:41:01 BUTADIENE COMPRESSOR OPERATOR CPT-75471 Postop F/U Visit 11:17:48 CDT CPT-LR Lesion Removal 11:50:22 CDT CPT-OV Office Visit 11:50:22 CDT CPT-17790 Pneumovax 23 10:55:48 CDT CPT-18971 Administration single or combination vaccine inc oral 10 :55:48 CDT CPT-Cryo Cryotherapy 11:18:11 CDT CPT-OV Office Visit 11:18:11 CDT CPT-74141 LS spine AP and Lat 09:05:22 CDT CPT-67088 Bladder Scan 15:42:00 CDT CPT-03541 Cystoscopy 15:42:00 CDT CPT-OV Office Visit 16:37:19 BUTADIENE COMPRESSOR OPERATOR CPT-51483 Bladder Scan 15:32:10 BUTADIENE COMPRESSOR OPERATOR CPT-46910 Cystoscopy 15:32:10 BUTADIENE COMPRESSOR OPERATOR CPT-43248 Abd single AP View 14:05:59 BUTADIENE COMPRESSOR OPERATOR CPT-94368 Pill cam small bowel 09:48:39 BUTADIENE COMPRESSOR OPERATOR CPT-42697 Urine Dip (Floor Use Only) 17:17:19 BUTADIENE COMPRESSOR OPERATOR CPT-20721 Bladder Scan 17:17:19 BUTADIENE COMPRESSOR OPERATOR CPT-OV Office Visit 11:50:26 BUTADIENE COMPRESSOR OPERATOR CPT-10877 Bladder Scan 10:10:42 CDT CPT-08490 Venipuncture Draw Fee 09:14:04 CDT CPT-56713 Chest 2V Frontal and Lat 10:10:49 CDT CPT-51309 LS spine comp w obliq 11:50:11 CDT CPT-25660 Venipuncture Draw Fee 08:52:57 BUTADIENE COMPRESSOR OPERATOR CPT-10544 Cystoscopy W/rem FB 18:37:28 CDT CPT-20312 Abd single AP View 16:18:40 CDT CPT-75411 Abd compl w upright 17:30:59 CDT
[2016-11-22] MEDS ORDERED: HYDR-3812 PO (16:51)
--- OUTSIDE RECORDS SUMMARY | 2016-11-22 16:51 | XMS REPORT | Clinical Summary ---
Author Author Admin, MARGE Organization [facility] Address Unknown Phone Unavailable Allergies, [...] 1 tablet by mouth daily CITALOPRAM HYDROBROMIDE 92885058740 Active Felisa Daphney RMMarva Active CLARITIN 5 MG ORAL CHEW 1 tab po q day LORATADINE 99980352125 Active Felisa Daphney RMA Active VIIBRYD STARTER PACK 10 & 20 MG ORAL KIT 1 po qd as directed 2015 VILAZODONE HCL 76110417735 No Longer Active Felisa Daphney RMA Active HYDROXYZINE HCL 25 MG TAB 1 po qHS PRN Insomnia HYDROXYZINE HCL 60050273068 Active Capo Poe MD Active LISINOPRIL 10 MG TABS 1 tablet by mouth daily LISINOPRIL 88143961958 Active Capo Poe MD Active LORTAB 7.5-325 MG ORAL TABS 1 po q 6 hr prn pain HYDROCODONE- ACETAMINOPHEN 89240942490 No Longer Active Capo Poe MD Active FLOMAX 0.4 MG CAPS Take one by mouth daily TAMSULOSIN HCL 15377281875 No Longer Active Capo Poe MD Active TRIAMCINOLONE ACETONIDE 0.1 % CREA Apply to affected areas TID for up to 2 weeks TRIAMCINOLONE ACETONIDE 05122262548 Active Capo Poe MD Active NICOTINE 14 MG/24HR TRANS PT24 Apply/Change q 24hr NICOTINE 30279660564 No Longer Active Capo Poe MD Active TRAMADOL HCL 50 MG TABS 1-2 tablets every 6 hours as needed for pain TRAMADOL HCL 42924642703 No Longer Active Capo Poe MD Active SERTRALINE HCL 100 MG ORAL TABS take 1 tab daily SERTRALINE HCL 33814413907 No Longer Active Capo Poe MD Active LISINOPRIL-HYDROCHLOROTHIAZIDE 10-12.5 MG TABS 0.5 tab by mouth daily LISINOPRIL-HYDROCHLOROTHIAZIDE 75329132348 No Longer Active Capo Poe MD Active OMEPRAZOLE 20 MG CPDR 1 tablet by mouth daily OMEPRAZOLE 35369035995 Active Capo Poe MD Active WELLBUTRIN SR 150 MG ORAL [id number] 1 po BID BUPROPION HCL 79532069162 No Longer Active Capo Poe MD Active MIRALAX PACK 1 po qd PRN Constipation POLYETHYLENE GLYCOL 3350 99058938607 Active Capo Poe MD Active DULERA 100-5 MCG/ACT AERO 2 puffs BID MOMETASONE FURO- FORMOTEROL FUM 63222582984 Active Capo Poe MD Active ZOLOFT 100 MG TABS 1 po daily SERTRALINE HCL 77440279743 No Longer Active Zoran Arzola MD Active FERROUS SULFATE 325 (65 FE) MG TABS 1 tablet by mouth daily FERROUS SULFATE 66347395495 No Longer Active Capo Poe MD Active HYDROCODONE-ACETAMINOPHEN 7.5-300 MG TABS take one every six hours HYDROCODONE-ACETAMINOPHEN 38027101811 No Longer Active Capo Poe MD Active TRIAMCINOLONE ACETONIDE 0.1 % OINT Apply to affected areas TID for up to 2 weeks TRIAMCINOLONE ACETONIDE 38105689521 No Longer Active Joe Vargas RN Active FERROUS SULFATE 325 (65 FE) MG TABS Take one by mouth daily FERROUS SULFATE 08726881375 No Longer Active Capo Poe MD Active TRIAMCINOLONE ACETONIDE 0.1 % OINT Apply to affected areas TID for up to 2 weeks TRIAMCINOLONE ACETONIDE 01313652645 No Longer Active Capo Poe MD Active ADULT ASPIRIN LOW STRENGTH 81 MG TBDP qd ASPIRIN 50304889916 Active Zoran Arzola MD Active ALEVE 220 MG TAB prn NAPROXEN SODIUM 98037530467 Active Capo Poe MD Active MACROBID 100 MG CAP 1 cap by mouth twice daily NITROFURANTOIN MONOHYD MACRO 58661905863 No Longer Active Dona Becker Active AZITHROMYCIN 250 MG TABS 2 po qd x 1 day, then 1 po qd x 4 days AZITHROMYCIN 28459666335 No Longer Active Capo Poe MD Active FISH OIL 500 MG CAPS by mouth twice a day OMEGA-3 FATTY ACIDS 56596823883 Active Capo Poe MD Active FLAXSEED OIL 1000 MG CAPS Take two by mouth daily FLAXSEED (LINSEED) 07129660398 Active Zoran Arzola MD Active RED YEAST RICE 600 MG CAPS Take two by mouth daily RED YEAST RICE EXTRACT 41859027557 Active Zoran Arzola MD Active MULTIVITAMINS CAPS Take one by mouth daily MULTIPLE VITAMIN 12442815342 Active Zoran Arzola MD Active ICAPS MV TABS 2 po daily MULTIPLE VITAMINS-MINERALS 32380527810 Active Jam Arnold DO Active MACROBID 100 MG CAP 1 cap by mouth twice daily MACROBID 100 MG CAP 4098082 NITROFURANTOIN MONOHYD MACRO Inactive FERROUS SULFATE 325 (65 FE) MG TABS Take one by mouth daily FERROUS SULFATE 325 (65 FE) MG TABS 202817 FERROUS SULFATE Inactive HYDROCODONE-ACETAMINOPHEN 7.5-300 MG TABS take one every six hours HYDROCODONE-ACETAMINOPHEN 7.5-300 MG TABS 690273 HYDROCODONE- ACETAMINOPHEN Inactive FERROUS SULFATE 325 (65 FE) MG TABS 1 tablet by mouth daily FERROUS SULFATE 325 (65 FE) MG TABS 618937 FERROUS SULFATE Inactive ZOLOFT 100 MG TABS 1 po daily ZOLOFT 100 MG TABS 209189 SERTRALINE HCL Inactive SERTRALINE HCL 100 MG ORAL TABS take 1 tab daily SERTRALINE HCL 100 MG ORAL TABS 083741 SERTRALINE HCL Inactive TRAMADOL HCL 50 MG TABS 1-2 tablets every 6 hours as needed for pain TRAMADOL HCL 50 MG TABS 575140 TRAMADOL HCL Inactive NICOTINE 14 MG/24HR TRANS PT24 Apply/Change q 24hr NICOTINE 14 MG/24HR TRANS PT24 893476 NICOTINE Inactive FLOMAX 0.4 MG CAPS Take one by mouth daily FLOMAX 0.4 MG CAPS 661096 TAMSULOSIN HCL Inactive LORTAB 7.5-325 MG ORAL TABS 1 po q 6 hr prn pain LORTAB 7.5- 325 MG ORAL TABS 421843 HYDROCODONE-ACETAMINOPHEN Inactive VIIBRYD STARTER PACK 10 & 20 MG ORAL KIT 1 po qd as directed 2015 VIIBRYD STARTER PACK 10 & 20 MG ORAL KIT VILAZODONE HCL Inactive AZITHROMYCIN 250 MG TABS 2 po qd x 1 day, then 1 po qd x 4 days AZITHROMYCIN 250 MG TABS 4640775 AZITHROMYCIN Inactive TRIAMCINOLONE ACETONIDE 0.1 % OINT Apply to affected areas TID for up to 2 weeks TRIAMCINOLONE ACETONIDE 0.1 % OINT 5441093 TRIAMCINOLONE ACETONIDE Inactive TRIAMCINOLONE ACETONIDE 0.1 % OINT Apply to affected areas TID for up to 2 weeks TRIAMCINOLONE ACETONIDE 0.1 % OINT 4942877 TRIAMCINOLONE ACETONIDE Inactive Advance Directives Directive Description [...] Panel - Chemistry sodium, serum 139 mmol/L 535-618 6458/07/30 potassium, serum 4.7 mmol/L 3.5-5.2 chloride, serum [...] mg/g mg/g{creat} 0-29 sodium, serum 138 mmol/L 168-757 6272/03/18 carbon dioxide, venous blood 25.5 mmol/L 21.0-32.0 potassium, serum 4.6 mmol/L 3.5-5.2 chloride, serum 101 mmol/L 98-107 blood glucose 129 mg/dL 65-110 urea nitrogen, blood 20 mg/dL 7-18 creatinine, serum 1.87 mg/dL 0.55-1.30 alanine aminotransferase (SGPT), serum 26 U/L 12-78 aspartate aminotransferase (SGOT), serum 20 U/L 15-37 calcium, serum 8.8 mg/dL 8.5-10.1 bilirubin, serum, total 0.40 mg/dL 0.00-1.00 cholesterol, serum 251 mg/dL 995-226 1358/03/18 triglyceride, serum, fasting 135 mg/dL 30-200 HDL [...] 0.00-4.00 Encounters Code Encounter Date Provider Facility CPT-10654 Level 4 Est. Patient 13:44:30 CDT Capo Poe MD [facility] CPT-52855 Level 3 Est. Patient 14:59:32 NETWORK ANNOUNCER Capo Poe MD [facility] CPT-65897 Level 4 Est. Patient 10:46:15 NETWORK ANNOUNCER Capo Poe MD [facility] CPT-49910 Level 3 Est. Patient 11:00:53 CDT Capo Poe MD [facility] CPT-93965 Level 3 Est. Patient 09:39:35 CDT Capo Poe MD [facility] CPT-50044 Level 3 Est. Patient 09:27:01 CDT Capo Poe MD [facility] CPT-05986 Level 3 Est. Patient 18:37:08 CDT Zoran Arzola MD [facility] CPT-41472 Level 3 Est. Patient 15:00:28 CDT Capo Poe MD [facility] CPT-64705 Level 3 Est. Patient 08:20:19 CDT Zoran Arzola MD [facility] CPT-81068 Level 3 Est. Patient 09:22:21 CDT Capo Poe MD [facility] CPT-67763 Level 4 Est. Patient 10:21:30 NETWORK ANNOUNCER Capo Poe MD [facility] CPT-26618 Level 3 Est. Patient 17:08:51 NETWORK ANNOUNCER Zoran Arzola MD [facility] CPT-64618 Level 4 Est. Patient 09:44:42 CDT Capo Poe MD [facility] CPT-01685 Level 4 Est. Patient 10:39:29 CDT Capo Poe MD [facility] CPT-76382 Level 3 Est. Patient 17:45:23 CDT Zoran Arzola MD [facility] CPT-92929 Level 4 Est. Patient 08:50:44 CDT Capo Poe MD [facility] CPT-90923 Level 3 Est. Patient 10:39:51 NETWORK ANNOUNCER Capo Poe MD [facility] CPT-22428 Level 4 Est. Patient 09:44:24 NETWORK ANNOUNCER Capo Poe MD [facility] CPT-06048 Level 3 Est. Patient 14:48:42 NETWORK ANNOUNCER Zoran Arzola MD [facility] CPT-18865 Level 4 Est. Patient 10:24:02 CDT Capo Poe MD [facility] CPT-95108 Level 3 Est. Patient 15:42:00 CDT Maya DUKES [facility] CPT-90485 Level 4 Est. Patient 13:34:15 CDT Capo Poe MD [facility] CPT-91442 Level 3 Est. Patient 15:32:10 NETWORK ANNOUNCER Zoran Arzola MD [facility] CPT-56512 Level 3 New Patient 17:17:19 NETWORK ANNOUNCER Zoran Arzola MD [facility] CPT-91459 Level 4 Est. Patient 10:25:01 NETWORK ANNOUNCER Capo Poe MD [facility] CPT-56299 Level 3 Est. Patient 10:10:42 CDT Zoran Arzola MD [facility] CPT-23987 Level 3 Est. Patient 22:30:02 CDT Zoran Arzola MD [facility] CPT-59638 Level 4 Est. Patient 09:54:20 CDT Capo Poe MD [facility] CPT-74801 Level 3 Est. Patient 10:48:30 CDT Capo Poe MD [facility] CPT-67976 Level 3 Est. Patient 11:24:45 CDT Capo Poe MD [facility] CPT-94228 Level 3 Est. Patient 15:23:48 NETWORK ANNOUNCER Capo Poe MD [facility] CPT-78829 Level 3 Est. Patient 15:10:03 NETWORK ANNOUNCER Capo Poe MD [facility] CPT-32039 Level 3 Est. Patient 16:18:40 CDT Zoran Arzola MD [facility] Procedures Code Procedure Name Date Entry Date Standard Description CPT-55659 Venipuncture Draw Fee 09:46:29 CDT CPT-30606 Venipuncture Draw Fee 14:30:06 CDT CPT-33314 Venipuncture Draw Fee 10:58:22 CDT CPT-01493 Abd single AP View 08:32:00 CDT CPT-55350 Postop F/U Visit 21:13:08 CDT CPT-30554 Abd single AP View 15:50:24 CDT CPT-74820 Cystoscopy W/rem FB 15:21:28 CDT CPT-97298 Abd single AP View 14:06:45 CDT CPT-62489 Postop F/U Visit 09:48:32 CDT CPT-26843 Abd single AP View 13:58:26 CDT CPT-62849 Hip comp min 2V 10:27:18 NETWORK ANNOUNCER CPT-56269 Urine Dip (Floor Use Only) 13:41:01 NETWORK ANNOUNCER CPT-48101 Postop F/U Visit 11:17:48 CDT CPT-LR Lesion Removal 11:50:22 CDT CPT-OV Office Visit 11:50:22 CDT CPT-10646 Pneumovax 23 10:55:48 CDT CPT-76008 Administration single or combination vaccine inc oral 10 :55:48 CDT CPT-Cryo Cryotherapy 11:18:11 CDT CPT-OV Office Visit 11:18:11 CDT CPT-11593 LS spine AP and Lat 09:05:22 CDT CPT-95003 Bladder Scan 15:42:00 CDT CPT-24966 Cystoscopy 15:42:00 CDT CPT-OV Office Visit 16:37:19 NETWORK ANNOUNCER CPT-56795 Bladder Scan 15:32:10 NETWORK ANNOUNCER CPT-37207 Cystoscopy 15:32:10 NETWORK ANNOUNCER CPT-17750 Abd single AP View 14:05:59 NETWORK ANNOUNCER CPT-52332 Pill cam small bowel 09:48:39 NETWORK ANNOUNCER CPT-45982 Urine Dip (Floor Use Only) 17:17:19 NETWORK ANNOUNCER CPT-69336 Bladder Scan 17:17:19 NETWORK ANNOUNCER CPT-OV Office Visit 11:50:26 NETWORK ANNOUNCER CPT-02966 Bladder Scan 10:10:42 CDT CPT-19062 Venipuncture Draw Fee 09:14:04 CDT CPT-11599 Chest 2V Frontal and Lat 10:10:49 CDT CPT-20730 LS spine comp w obliq 11:50:11 CDT CPT-33402 Venipuncture Draw Fee 08:52:57 NETWORK ANNOUNCER CPT-62164 Cystoscopy W/rem FB 18:37:28 CDT CPT-00626 Abd single AP View 16:18:40 CDT CPT-84149 Abd compl w upright 17:30:59 CDT
--- OUTSIDE RECORDS SUMMARY | 2016-11-22 16:53 | XMS REPORT ---
Author Author [facility] Medical Staff Organization [facility] Address [address] [place], [place] [address] Phone [phone] Care Team Providers Care Group Care Worker Name Role Phone CAPO MENJIVAR MD PP [phone] Summary purpose TRANSITION OF CARE AUTO GENERATION [...] Allergen Category Ingredient Status Reaction Severity Onset Pajzufx-Vcz-Lwx Reductase Inhibitors Drug Allergy Ahqbuvx-Cyw-Udt Reductase Inhibitors Confirmed or Verified BACK PAIN morphine Drug Allergy morphine Confirmed or Verified Swelling Mild Adult Nitrofurantoin Drug Allergy Nitrofurantoin Confirmed or Verified Immunizations No immunizations recorded for this patient visit Relevant diagnostic tests and/or laboratory data RESULTS Radiology Results [id number]:16:00 MYOCARDIAL SPECT MULT PACs Image DATE OF EXAM: Nov 09 2014 [id number] SPECT MULTIPLE : RADIOLOGY REPORT DATE OF SERVICE:11/09/2014 HISTORY: Chest pain EXERCISE STRESS AND RESTING MYOCARDIAL PERFUSION STUDY(TREADMILL CARDIOLITE STUDY)1030 HOURS The patient initially is given 8.4 mCi of technetium 99m labeled Cardiolite intravenously. After an 85 minute delay, resting SPECT perfusion images are obtained. The patient is then exercised on a treadmill by the referring clinician. At maximal stress, the patient is given 23.8 mCi of technetium 99m labeled Cardiolite intravenously. After a 61 minute delay, gated stress SPECT perfusion images are obtained. The end-systolic gated stress SPECT perfusion images are normal. On the nongated images, there is a minor perfusion defect along the apex and anteroseptal apical wall, which is not present on the end systolic gated stress SPECT perfusion images and therefore represents a technical artifact. There is no evidence for any reversible ischemia. On the gated study, the left ventricular ejection fraction is calculated at 69%. The end-systolic volume is 25 mL with the end-diastolic volume being 80 mL. There is normal segmental left ventricular cardiac wall motion and thickening present. IMPRESSION: 1. Normal end systolic gated stress SPECT perfusion images. There is no evidence for any reversible ischemia. 2. The gated study has a left ventricular ejection fraction calculated at 69%, which is normal. There is normal segmental left ventricular cardiac wall motion and thickening present. S MD ESTRELLITA Beltran/hali 11/09/2014 15:07:00 / 11/09/2014 16:18:36 cc:Dr. Capo Menjivar This document has been electronically Signed by: On: History of procedures Procedure Code Code Type Description Date Performed Performing Physician [id number] CPT-4 HT MUSCLE IMAGE SPECT, MULT 11-09-2014 JANET FINNEY 88487 CPT-4 CARDIOVASCULAR STRESS TEST 11-09-2014 JANET FINNEY A9500 CPT-4 TC99M SESTAMIBI 11-09-2014 JANET FINNEY Functional status Functional Status Finding Observation Time IV Site Location Left A/C 06-39-756280:15 IV Type peripheral 57-75-677687:15 IV Site Information discontinued 01-04-105166:35 IV Site Start Attmpt 1 times 80-91-187282:15 IV Site Rishi 20 61-90-488300:15 IV Site Appearance WNL [id number]:35 IV Site Color clear 81-40-431839:35 IV Site Patent yes [id number] Dressing Type gauze 46-91-807328:35 Nursing Note Second set of scans completed. Verbal and written discharge instructions given. Patient voices understanding. Patient also given a to go bag with juice and crackers. Patient ambulated from unit in good condition. Chest pain remained at a "0" throughout entire procedure. 30-73-522086:48 Vital signs Type Value Date Height 66inches 74-64-885264:20 Weight 137LB 60-63-760637:20 Social history No Social History or smoking status observations were recorded for this visit. ( Unknown if ever smoked.) Treatment Plan No treatment plan text is available for this visit. Hospital discharge instructions Discharge Date/Time 11/09/2014 0948 Accompanied By Dismissal Condition good Disposition on DC home DC Inst/Educ Give yes
--- OUTSIDE RECORDS SUMMARY | 2016-11-22 16:53 | XMS REPORT | Clinical Summary ---
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 Inactive Capo Poe MD RENAL CALCULUS ICD-592.9 Inactive Caop Poe MD NAUSEA AND VOMITING ICD-787.01 Inactive Capo Poe MD SCIATICA ICD-724.3 Inactive Capo Poe MD 2011 BRONCHITIS, ACUTE ICD-466.0 Inactive Capo Poe MD FLANK PAIN, RIGHT ICD-789.09 Inactive Capo Poe MD ELEVATED P S [...] ICD-594.1 Inactive Capo Poe MD HEMATURIA ICD-599.70 Clyde Poe MD Near syncope ICD-780.2 Inactive [...] Elevated creatinine ICD-790.4 Inactive 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 Inactive Capo Poe MD UTI ICD-599.0 Inactive Capo Poe MD Medication List Medication Instructions Start Date Stop Date Generic Name NDC Status Provider Patient Instruction EQL IRON SUPPLEMENT THERAPY 325 MG ORAL TABS 1 tab po twice daily FERROUS SULFATE 74603069097 Active Jasmin TEIXEIRA Active D ORAL TABS 2000 iu weekly D ORAL TABS Active Capo Poe MD Active CITALOPRAM HYDROBROMIDE 20 MG TABS 1 tablet by mouth daily CITALOPRAM HYDROBROMIDE 61206550444 Active Capo Poe MD Active CLARITIN 5 MG ORAL CHEW 1 tab po q day LORATADINE 88398642313 Active Felisa TEIXEIRA Active VIIBRYD STARTER PACK 10 & 20 MG ORAL KIT 1 po qd as directed 2015 VILAZODONE HCL 83355148427 No Longer Active Felisa TEIXEIRA Active HYDROXYZINE HCL 25 MG TAB 1 po qHS PRN Insomnia HYDROXYZINE HCL 20977797717 Active Capo Poe MD Active LISINOPRIL 10 MG TABS 1 tablet by mouth daily LISINOPRIL 34177453767 Active Capo Poe MD Active LORTAB 7.5-325 MG ORAL TABS 1 po q 6 hr prn pain HYDROCODONE- ACETAMINOPHEN 63459028057 No Longer Active Capo Poe MD Active FLOMAX 0.4 MG CAPS Take one by mouth daily TAMSULOSIN HCL 51547272898 No Longer Active Capo Poe MD Active TRIAMCINOLONE ACETONIDE 0.1 % CREA Apply to affected areas TID for up to 2 weeks TRIAMCINOLONE ACETONIDE 31009624242 Active Capo Poe MD Active NICOTINE 14 MG/24HR TRANS PT24 Apply/Change q 24hr NICOTINE 81524625939 No Longer Active Capo Poe MD Active TRAMADOL HCL 50 MG TABS 1-2 tablets every 6 hours as needed for pain TRAMADOL HCL 60877130133 No Longer Active Capo Poe MD Active SERTRALINE HCL 100 MG ORAL TABS take 1 tab daily SERTRALINE HCL 51123440580 No Longer Active Capo Poe MD Active LISINOPRIL-HYDROCHLOROTHIAZIDE 10-12.5 MG TABS 0.5 tab by mouth daily LISINOPRIL-HYDROCHLOROTHIAZIDE 69153048402 No Longer Active Capo Poe MD Active OMEPRAZOLE 20 MG CPDR 1 tablet by mouth daily OMEPRAZOLE 66372328382 Active Capo Poe MD Active WELLBUTRIN SR 150 MG ORAL [id number] 1 po BID BUPROPION HCL 12827299576 No Longer Active Capo Poe MD Active MIRALAX PACK 1 po qd PRN Constipation POLYETHYLENE GLYCOL 3350 17909688420 Active Capo Poe MD Active DULERA 100-5 MCG/ACT AERO 2 puffs BID MOMETASONE FURO- FORMOTEROL FUM 36927391077 Active Capo Poe MD Active ZOLOFT 100 MG TABS 1 po daily SERTRALINE HCL 57850915330 No Longer Active Zoran Arzola MD Active FERROUS SULFATE 325 (65 FE) MG TABS 1 tablet by mouth daily FERROUS SULFATE 44536313798 No Longer Active Capo Poe MD Active HYDROCODONE-ACETAMINOPHEN 7.5-300 MG TABS take one every six hours HYDROCODONE-ACETAMINOPHEN 94693938785 No Longer Active Capo Poe MD Active TRIAMCINOLONE ACETONIDE 0.1 % OINT Apply to affected areas TID for up to 2 weeks TRIAMCINOLONE ACETONIDE 93888915644 No Longer Active Joe Vargas RN Active FERROUS SULFATE 325 (65 FE) MG TABS Take one by mouth daily FERROUS SULFATE 66489167539 No Longer Active Capo Poe MD Active TRIAMCINOLONE ACETONIDE 0.1 % OINT Apply to affected areas TID for up to 2 weeks TRIAMCINOLONE ACETONIDE 70452320384 No Longer Active Capo Poe MD Active ADULT ASPIRIN LOW STRENGTH 81 MG TBDP qd ASPIRIN 75131920388 Active Zoran Arzola MD Active ALEVE 220 MG TAB prn NAPROXEN SODIUM 18120512941 Active Capo Poe MD Active MACROBID 100 MG CAP 1 cap by mouth twice daily NITROFURANTOIN MONOHYD MACRO 72339757137 No Longer Active Dona Becker Active AZITHROMYCIN 250 MG TABS 2 po qd x 1 day, then 1 po qd x 4 days AZITHROMYCIN 80929719495 No Longer Active Capo Poe MD Active FISH OIL 500 MG CAPS by mouth twice a day OMEGA-3 FATTY ACIDS 87936225791 Active Capo Poe MD Active FLAXSEED OIL 1000 MG CAPS Take two by mouth daily FLAXSEED (LINSEED) 65430500021 Active Zoran Arzola MD Active RED YEAST RICE 600 MG CAPS Take two by mouth daily RED YEAST RICE EXTRACT 52069580914 Active Zoran Arzola MD Active MULTIVITAMINS CAPS Take one by mouth daily MULTIPLE VITAMIN 00515586111 Active Zoran Arzola MD Active ICAPS MV TABS 2 po daily MULTIPLE VITAMINS-MINERALS 57134952291 Active Jam Arnold DO Active MACROBID 100 MG CAP 1 cap by mouth twice daily MACROBID 100 MG CAP 3556970 NITROFURANTOIN MONOHYD MACRO Inactive FERROUS SULFATE 325 (65 FE) MG TABS Take one by mouth daily FERROUS SULFATE 325 (65 FE) MG TABS 520502 FERROUS SULFATE Inactive HYDROCODONE-ACETAMINOPHEN 7.5-300 MG TABS take one every six hours HYDROCODONE-ACETAMINOPHEN 7.5-300 MG TABS 345158 HYDROCODONE- ACETAMINOPHEN Inactive FERROUS SULFATE 325 (65 FE) MG TABS 1 tablet by mouth daily FERROUS SULFATE 325 (65 FE) MG TABS 391413 FERROUS SULFATE Inactive ZOLOFT 100 MG TABS 1 po daily ZOLOFT 100 MG TABS 143454 SERTRALINE HCL Inactive SERTRALINE HCL 100 MG ORAL TABS take 1 tab daily SERTRALINE HCL 100 MG ORAL TABS 582399 SERTRALINE HCL Inactive TRAMADOL HCL 50 MG TABS 1-2 tablets every 6 hours as needed for pain TRAMADOL HCL 50 MG TABS 876941 TRAMADOL HCL Inactive NICOTINE 14 MG/24HR TRANS PT24 Apply/Change q 24hr NICOTINE 14 MG/24HR TRANS PT24 317369 NICOTINE Inactive FLOMAX 0.4 MG CAPS Take one by mouth daily FLOMAX 0.4 MG CAPS 409673 TAMSULOSIN HCL Inactive LORTAB 7.5-325 MG ORAL TABS 1 po q 6 hr prn pain LORTAB 7.5- 325 MG ORAL TABS 832424 HYDROCODONE-ACETAMINOPHEN Inactive VIIBRYD STARTER PACK 10 & 20 MG ORAL KIT 1 po qd as directed 2015 VIIBRYD STARTER PACK 10 & 20 MG ORAL KIT VILAZODONE HCL Inactive AZITHROMYCIN 250 MG TABS 2 po qd x 1 day, then 1 po qd x 4 days AZITHROMYCIN 250 MG TABS 8495089 AZITHROMYCIN Inactive TRIAMCINOLONE ACETONIDE 0.1 % OINT Apply to affected areas TID for up to 2 weeks TRIAMCINOLONE ACETONIDE 0.1 % OINT 7927251 TRIAMCINOLONE ACETONIDE Inactive TRIAMCINOLONE ACETONIDE 0.1 % OINT Apply to affected areas TID for up to 2 weeks TRIAMCINOLONE ACETONIDE 0.1 % OINT 7216378 TRIAMCINOLONE ACETONIDE Inactive Advance Directives Directive Description [...] Positive Lab Report: BUN, Creatinine - Chemistry creatinine, serum 1.29 mg/dL 0.55-1.30 urea nitrogen, blood 15 mg/dL 7-18 Lab Report: CBC W/DIFF, Comp. Metabolic Panel, Thyroid Stimulating Hormo ... - Chemistry sodium, serum 141 mmol/L 702-911 4914/01/27 carbon dioxide, venous blood 29.7 mmol/L 21.0-32.0 [...] ... - Chemistry sodium, serum 138 mmol/L 879-064 4716/03/18 carbon dioxide, venous blood 25.5 mmol/L 21.0-32.0 potassium, serum 4.6 mmol/L 3.5-5.2 chloride, serum 101 mmol/L 98-107 blood glucose 129 mg/dL 65-110 urea nitrogen, blood 20 mg/dL 7-18 creatinine, serum 1.87 mg/dL 0.55-1.30 alanine aminotransferase (SGPT), serum 26 U/L 12-78 aspartate aminotransferase (SGOT), serum 20 U/L 15-37 calcium, serum 8.8 mg/dL 8.5-10.1 bilirubin, serum, total 0.40 mg/dL 0.00-1.00 cholesterol, serum 251 mg/dL 524-461 2433/03/18 triglyceride, serum, fasting 135 mg/dL 30-200 HDL [...] 0-19 Encounters Code Encounter Date Provider Facility CPT-18363 Level 4 Est. Patient 09:26:11 [employer] Capo Poe MD [facility] CPT-81041 Level 4 Est. Patient 08:53:08 CDT Capo Poe MD [facility] CPT-38664 Level 4 Est. Patient 10:22:57 CDT Capo Poe MD [facility] CPT-67168 Level 4 Est. Patient 13:44:30 CDT Capo Poe MD [facility] CPT-83013 Level 3 Est. Patient 14:59:32 [employer] Capo Poe MD [facility] CPT-15487 Level 4 Est. Patient 10:46:15 [employer] ATT[employer]NEY Capo Poe MD [facility] CPT-40123 Level 3 Est. Patient 11:00:53 CDT Capo Poe MD [facility] CPT-57182 Level 3 Est. Patient 09:39:35 CDT Capo Poe MD [facility] CPT-70384 Level 3 Est. Patient 09:27:01 CDT Capo Poe MD [facility] CPT-47289 Level 3 Est. Patient 18:37:08 CDT Zoran Arzola MD [facility] CPT-01636 Level 3 Est. Patient 15:00:28 CDT Capo Poe MD [facility] CPT-13785 Level 3 Est. Patient 08:20:19 CDT Zoran Arzola MD [facility] CPT-40334 Level 3 Est. Patient 09:22:21 CDT Capo Poe MD [facility] CPT-31586 Level 4 Est. Patient 10:21:30 [employer] Capo Poe MD [facility] CPT-19574 Level 3 Est. Patient 17:08:51 [employer] Zoran Arzola MD [facility] CPT-53330 Level 4 Est. Patient 09:44:42 CDT Capo Poe MD [facility] CPT-72200 Level 4 Est. Patient 10:39:29 CDT Capo Poe MD [facility] CPT-80955 Level 3 Est. Patient 17:45:23 CDT Zoran Arzola MD [facility] CPT-40070 Level 4 Est. Patient 08:50:44 CDT Capo Poe MD [facility] CPT-35260 Level 3 Est. Patient 10:39:51 [employer] Capo Poe MD [facility] CPT-04032 Level 4 Est. Patient 09:44:24 [employer] Capo Poe MD [facility] CPT-37873 Level 3 Est. Patient 14:48:42 [employer] Zoran Arzola MD [facility] CPT-36435 Level 4 Est. Patient 10:24:02 CDT Capo Poe MD [facility] CPT-72451 Level 3 Est. Patient 15:42:00 CDT Maya DUKES [facility] CPT-60498 Level 4 Est. Patient 13:34:15 CDT Capo Poe MD [facility] CPT-52245 Level 3 Est. Patient 15:32:10 [employer] Zoran Arzola MD [facility] CPT-50444 Level 3 New Patient 17:17:19 [employer] Zoran Arzola MD [facility] CPT-90829 Level 4 Est. Patient 10:25:01 [employer]NEY Capo Poe MD [facility] CPT-49041 Level 3 Est. Patient 10:10:42 CDT Zoran Arzola MD [facility] CPT-19495 Level 3 Est. Patient 22:30:02 CDT Zoran Arzola MD [facility] CPT-59421 Level 4 Est. Patient 09:54:20 CDT Capo Poe MD [facility] CPT-92666 Level 3 Est. Patient 10:48:30 CDT Capo Poe MD [facility] CPT-11465 Level 3 Est. Patient 11:24:45 CDT Capo Poe MD [facility] CPT-29606 Level 3 Est. Patient 15:23:48 [employer] Capo Poe MD [facility] CPT-56372 Level 3 Est. Patient 15:10:03 [employer] Capo Poe MD [facility] CPT-14186 Level 3 Est. Patient 16:18:40 CDT Zoran Arzola MD [facility] Procedures Code Procedure Name Date Entry Date Standard Description CPT-06086 Hemoccult IFOBT - LAB USE ONLY 14:11:43 [employer] CPT-43253 TPSA - LAB USE ONLY 10:37:52 [employer] CPT-67405 TSH - LAB USE ONLY 10:37:51 [employer] CPT-90106 CMP - LAB USE ONLY 10:37:51 [employer] CPT-62394 CBC with Diff - LAB USE ONLY 10:37:51 [employer] CPT-48378 Venipuncture Draw Fee 10:37:51 [employer] CPT-000 Give Pneumovax 10:39:30 CDT CPT-72830 Venipuncture Draw Fee 09:32:34 CDT CPT-G0438 Initial Annual Wellness Exam 10:24:35 CDT CPT-44201 Venipuncture Draw Fee 09:46:29 CDT CPT-59236 Venipuncture Draw Fee 14:30:06 CDT CPT-76130 Venipuncture Draw Fee 10:58:22 CDT CPT-44348 Abd single AP View 08:32:00 CDT CPT-69681 Postop F/U Visit 21:13:08 CDT CPT-79306 Abd single AP View 15:50:24 CDT CPT-70915 Cystoscopy W/rem FB 15:21:28 CDT CPT-41347 Abd single AP View 14:06:45 CDT CPT-33062 Postop F/U Visit 09:48:32 CDT CPT-50385 Abd single AP View 13:58:26 CDT CPT-39901 Hip comp min 2V 10:27:18 [employer] CPT-95508 Urine Dip (Floor Use Only) 13:41:01 [employer] CPT-50660 Postop F/U Visit 11:17:48 CDT CPT-LR Lesion Removal 11:50:22 CDT CPT-OV Office Visit 11:50:22 CDT CPT-35650 Pneumovax 23 10:55:48 CDT CPT-54366 Administration single or combination vaccine inc oral 10 :55:48 CDT CPT-Cryo Cryotherapy 11:18:11 CDT CPT-OV Office Visit 11:18:11 CDT CPT-94114 LS spine AP and Lat 09:05:22 CDT CPT-68227 Bladder Scan 15:42:00 CDT CPT-83091 Cystoscopy 15:42:00 CDT CPT-OV Office Visit 16:37:19 [employer] CPT-12825 Bladder Scan 15:32:10 [employer] CPT-88134 Cystoscopy 15:32:10 [employer] CPT-71791 Abd single AP View 14:05:59 [employer] CPT-88375 Pill cam small bowel 09:48:39 [employer] CPT-20543 Urine Dip (Floor Use Only) 17:17:19 [employer] CPT-18261 Bladder Scan 17:17:19 [employer] CPT-OV Office Visit 11:50:26 [employer] CPT-12118 Bladder Scan 10:10:42 CDT CPT-48064 Venipuncture Draw Fee 09:14:04 CDT CPT-76035 Chest 2V Frontal and Lat 10:10:49 CDT CPT-87864 LS spine comp w obliq 11:50:11 CDT CPT-74244 Venipuncture Draw Fee 08:52:57 [employer] CPT-66319 Cystoscopy W/rem FB 18:37:28 CDT CPT-17515 Abd single AP View 16:18:40 CDT CPT-87272 Abd compl w upright 17:30:59 CDT
--- OUTSIDE RECORDS SUMMARY | 2016-11-22 16:54 | XMS REPORT | Clinical Summary ---
Author Author Admin, MARGE Organization [facility] Address Unknown Phone Unavailable Allergies, Adverse Reactions, [...] obstruction, not elsewhere classified ANEMIA 285.9 Active Fleisa TEIXEIRA Anemia, unspecified U T I-RECURRENT 599.0 [...] 2 puffs BID MOMETASONE FURO- FORMOTEROL FUM 95782437684 Active Capo Poe MD Active SERTRALINE HCL 100 MG ORAL TABS take 1 tab daily SERTRALINE HCL 19983893780 Active Capo Poe MD Active ZOLOFT 100 MG TABS 1 po daily SERTRALINE HCL 89794894171 No Longer Active Zoran Arzola MD Active FERROUS SULFATE 325 (65 FE) MG TABS 1 tablet by mouth daily FERROUS SULFATE 31694507378 No Longer Active Capo Poe MD Active TRAMADOL HCL 50 MG TABS 1-2 tablets every 6 hours as needed for pain TRAMADOL HCL 51771775040 Active Capo Poe MD Active HYDROCODONE-ACETAMINOPHEN 7.5-300 MG TABS take one every six hours HYDROCODONE-ACETAMINOPHEN 95489293798 No Longer Active Capo Poe MD Active TRIAMCINOLONE ACETONIDE 0.1 % OINT Apply to affected areas TID for up to 2 weeks TRIAMCINOLONE ACETONIDE 21911203424 No Longer Active Joe Vargas RN Active FERROUS SULFATE 325 (65 FE) MG TABS Take one by mouth daily FERROUS SULFATE 98885356272 No Longer Active Capo Poe MD Active TRIAMCINOLONE ACETONIDE 0.1 % OINT Apply to affected areas TID for up to 2 weeks TRIAMCINOLONE ACETONIDE 60595034957 No Longer Active Capo Poe MD Active ADULT ASPIRIN LOW STRENGTH 81 MG TBDP qd ASPIRIN 54939268545 Active Zoran Arzola MD Active ALEVE 220 MG TAB prn NAPROXEN SODIUM 85691906046 Active Capo Poe MD Active LISINOPRIL-HYDROCHLOROTHIAZIDE 10-12.5 MG TABS 1 tab by mouth daily LISINOPRIL-HYDROCHLOROTHIAZIDE 92480634048 Active Capo Poe MD Active MACROBID 100 MG CAP 1 cap by mouth twice daily NITROFURANTOIN MONOHYD MACRO 62254989067 No Longer Active Dona Becker Active AZITHROMYCIN 250 MG TABS 2 po qd x 1 day, then 1 po qd x 4 days AZITHROMYCIN 21325078475 No Longer Active Capo Poe MD Active FISH OIL 500 MG CAPS by mouth twice a day OMEGA-3 FATTY ACIDS 42548595289 Active Capo Poe MD Active FLAXSEED OIL 1000 MG CAPS Take two by mouth daily FLAXSEED (LINSEED) 00420422091 Active Zoran Arzola MD Active RED YEAST RICE 600 MG CAPS Take two by mouth daily RED YEAST RICE EXTRACT 54014836484 Active Zoran Arzola MD Active MULTIVITAMINS CAPS Take one by mouth daily MULTIPLE VITAMIN 21407129152 Active Zoran Arzola MD Active ICAPS MV TABS 2 po daily MULTIPLE VITAMINS-MINERALS 47976264154 Active Jam Arnold DO Active MACROBID 100 MG CAP 1 cap by mouth twice daily MACROBID 100 MG CAP 475094 NITROFURANTOIN MONOHYD MACRO Inactive FERROUS SULFATE 325 (65 FE) MG TABS Take one by mouth daily FERROUS SULFATE 325 (65 FE) MG TABS 406282 FERROUS SULFATE Inactive HYDROCODONE-ACETAMINOPHEN 7.5-300 MG TABS take one every six hours HYDROCODONE-ACETAMINOPHEN 7.5-300 MG TABS 334548 HYDROCODONE- ACETAMINOPHEN Inactive FERROUS SULFATE 325 (65 FE) MG TABS 1 tablet by mouth daily FERROUS SULFATE 325 (65 FE) MG TABS 111241 FERROUS SULFATE Inactive ZOLOFT 100 MG TABS 1 po daily ZOLOFT 100 MG TABS 437727 SERTRALINE HCL Inactive AZITHROMYCIN 250 MG TABS 2 po qd x 1 day, then 1 po qd x 4 days AZITHROMYCIN 250 MG TABS 8316353 AZITHROMYCIN Inactive TRIAMCINOLONE ACETONIDE 0.1 % OINT Apply to affected areas TID for up to 2 weeks TRIAMCINOLONE ACETONIDE 0.1 % OINT 7938671 TRIAMCINOLONE ACETONIDE Inactive TRIAMCINOLONE ACETONIDE 0.1 % OINT Apply to affected areas TID for up to 2 weeks TRIAMCINOLONE ACETONIDE 0.1 % OINT 6047815 TRIAMCINOLONE ACETONIDE Inactive Advance Directives Directive Description [...] Description Chart Maintenance: Outside labs entered on [email or web address] - Chemistry sodium, serum 137 mmol/L potassium, [...] Panel - Chemistry sodium, serum 140 mmol/L 790-328 2874/05/21 potassium, serum 4.0 mmol/L 3.5-5.2 chloride, serum [...] CBC - Chemistry cholesterol, serum 207 mg/dL 804-679 9430/02/11 triglyceride, serum, fasting 74 mg/dL 30-200 HDL cholesterol, serum 62 mg/dL 32-96 LDL cholesterol, serum 130 mg/dL 0-130 sodium, serum 144 mmol/L 810-896 5209/02/11 potassium, serum 5.0 mmol/L 3.5-5.2 chloride, serum [...] negative Encounters Code Encounter Date Provider Facility CPT-79641 Level 3 Est. Patient 08:20:19 CDT Zoran Arzola MD [facility] CPT-59495 Level 3 Est. Patient 09:22:21 CDT Capo Poe MD [facility] CPT-38626 Level 4 Est. Patient 10:21:30 [employer] Capo Poe MD [facility] CPT-73679 Level 3 Est. Patient 17:08:51 [employer] Zoran Arzola MD [facility] CPT-96685 Level 4 Est. Patient 09:44:42 CDT Capo Poe MD [facility] CPT-47994 Level 4 Est. Patient 10:39:29 CDT Capo Poe MD [facility] CPT-61180 Level 3 Est. Patient 17:45:23 CDT Zoran Arzola MD [facility] CPT-57973 Level 4 Est. Patient 08:50:44 CDT Capo Poe MD [facility] CPT-00112 Level 3 Est. Patient 10:39:51 [employer] Capo Poe MD [facility] CPT-27052 Level 4 Est. Patient 09:44:24 [employer] Capo Poe MD [facility] CPT-53473 Level 3 Est. Patient 14:48:42 [employer] Zoran Arzola MD [facility] CPT-61820 Level 4 Est. Patient 10:24:02 CDT Capo Poe MD [facility] CPT-36621 Level 3 Est. Patient 15:42:00 CDT Maya Brownlee ERNST [facility] CPT-27857 Level 4 Est. Patient 13:34:15 CDT Capo Poe MD [facility] CPT-25222 Level 3 Est. Patient 15:32:10 [employer] Zoran Arzola MD [facility] CPT-49425 Level 3 New Patient 17:17:19 [employer] Zoran Arzola MD [facility] CPT-74786 Level 4 Est. Patient 10:25:01 [employer] Capo Poe MD [facility] CPT-89882 Level 3 Est. Patient 10:10:42 CDT Zoran Arzola MD [facility] CPT-83030 Level 3 Est. Patient 22:30:02 CDT Zoran Arzola MD [facility] CPT-34326 Level 4 Est. Patient 09:54:20 CDT Capo Poe MD [facility] CPT-84300 Level 3 Est. Patient 10:48:30 CDT Capo Poe MD [facility] CPT-23305 Level 3 Est. Patient 11:24:45 CDT Capo Poe MD [facility] CPT-91339 Level 3 Est. Patient 15:23:48 [employer] Capo Poe MD [facility] CPT-39983 Level 3 Est. Patient 15:10:03 [employer] Capo Poe MD [facility] CPT-31488 Level 3 Est. Patient 16:18:40 CDT Zoran Arzola MD [facility] Procedures Code Procedure Name Date Entry Date Standard Description CPT-01008 Postop F/U Visit 09:48:32 CDT CPT-83723 Abd single AP View 13:58:26 CDT CPT-60336 Hip comp min 2V 10:27:18 [employer] CPT-93757 Urine Dip (Floor Use Only) 13:41:01 [employer] CPT-88090 Postop F/U Visit 11:17:48 CDT CPT-LR Lesion Removal 11:50:22 CDT CPT-OV Office Visit 11:50:22 CDT CPT-65263 Pneumovax 23 10:55:48 CDT CPT-27948 Administration single or combination vaccine inc oral 10 :55:48 CDT CPT-Cryo Cryotherapy 11:18:11 CDT CPT-OV Office Visit 11:18:11 CDT CPT-43877 LS spine AP and Lat 09:05:22 CDT CPT-60262 Bladder Scan 15:42:00 CDT CPT-39340 Cystoscopy 15:42:00 CDT CPT-OV Office Visit 16:37:19 [employer] CPT-55229 Bladder Scan 15:32:10 [employer] CPT-76003 Cystoscopy 15:32:10 [employer] CPT-29834 Abd single AP View 14:05:59 [employer] CPT-79227 Pill cam small bowel 09:48:39 [employer] CPT-94383 Urine Dip (Floor Use Only) 17:17:19 [employer] CPT-82666 Bladder Scan 17:17:19 [employer] CPT-OV Office Visit 11:50:26 [employer] CPT-92910 Bladder Scan 10:10:42 CDT CPT-22464 Venipuncture Draw Fee 09:14:04 CDT CPT-30738 Chest 2V Frontal and Lat 10:10:49 CDT CPT-56544 LS spine comp w obliq 11:50:11 CDT CPT-66346 Venipuncture Draw Fee 08:52:57 [employer] CPT-36523 Cystoscopy W/rem FB 18:37:28 CDT CPT-18980 Abd single AP View 16:18:40 CDT CPT-39080 Abd compl w upright 17:30:59 CDT
--- OUTSIDE RECORDS SUMMARY | 2016-11-22 16:55 | XMS REPORT | Clinical Summary ---
Author Author Admin, QIE Organization [facility] [employer] Address Unknown Phone Unavailable Allergies, Adverse Reactions, [...] Nausea with vomiting Depression 311 Active Capo Peo MD Depressive disorder, not elsewhere classified Hyperlipidemia [...] 1 tablet by mouth daily CITALOPRAM HYDROBROMIDE 75793361764 Active Felisamario TEIXEIRA Active CLARITIN 5 MG ORAL CHEW 1 tab po q day LORATADINE 93622336338 Active Felisa Daphney RMMarva Active VIIBRYD STARTER PACK 10 & 20 MG ORAL KIT 1 po qd as directed 2015 VILAZODONE HCL 00313428266 No Longer Active Felisa TEIXEIRA Active HYDROXYZINE HCL 25 MG TAB 1 po qHS PRN Insomnia HYDROXYZINE HCL 47662327934 Active Capo Poe MD Active LISINOPRIL 10 MG TABS 1 tablet by mouth daily LISINOPRIL 46899652642 Active Capo Poe MD Active LORTAB 7.5-325 MG ORAL TABS 1 po q 6 hr prn pain HYDROCODONE- ACETAMINOPHEN 44291369815 No Longer Active Capo Poe MD Active FLOMAX 0.4 MG CAPS Take one by mouth daily TAMSULOSIN HCL 60827222347 No Longer Active Capo Poe MD Active TRIAMCINOLONE ACETONIDE 0.1 % CREA Apply to affected areas TID for up to 2 weeks TRIAMCINOLONE ACETONIDE 55878962513 Active Capo Poe MD Active NICOTINE 14 MG/24HR TRANS PT24 Apply/Change q 24hr NICOTINE 93435896077 No Longer Active Capo Poe MD Active TRAMADOL HCL 50 MG TABS 1-2 tablets every 6 hours as needed for pain TRAMADOL HCL 66418819182 No Longer Active Capo Poe MD Active SERTRALINE HCL 100 MG ORAL TABS take 1 tab daily SERTRALINE HCL 79456638276 No Longer Active Capo Poe MD Active LISINOPRIL-HYDROCHLOROTHIAZIDE 10-12.5 MG TABS 0.5 tab by mouth daily LISINOPRIL-HYDROCHLOROTHIAZIDE 45808273099 No Longer Active Capo Poe MD Active OMEPRAZOLE 20 MG CPDR 1 tablet by mouth daily OMEPRAZOLE 26069161372 Active Capo Poe MD Active WELLBUTRIN SR 150 MG ORAL [id number] 1 po BID BUPROPION HCL 97383373708 No Longer Active Capo Poe MD Active MIRALAX PACK 1 po qd PRN Constipation POLYETHYLENE GLYCOL 3350 43706139894 Active Capo Poe MD Active DULERA 100-5 MCG/ACT AERO 2 puffs BID MOMETASONE FURO- FORMOTEROL FUM 15018498689 Active Capo Poe MD Active ZOLOFT 100 MG TABS 1 po daily SERTRALINE HCL 78691523200 No Longer Active Zoran Arzola MD Active FERROUS SULFATE 325 (65 FE) MG TABS 1 tablet by mouth daily FERROUS SULFATE 79916962882 No Longer Active Capo Poe MD Active HYDROCODONE-ACETAMINOPHEN 7.5-300 MG TABS take one every six hours HYDROCODONE-ACETAMINOPHEN 70579818417 No Longer Active Capo Poe MD Active TRIAMCINOLONE ACETONIDE 0.1 % OINT Apply to affected areas TID for up to 2 weeks TRIAMCINOLONE ACETONIDE 28831824917 No Longer Active Joe Vargas RN Active FERROUS SULFATE 325 (65 FE) MG TABS Take one by mouth daily FERROUS SULFATE 56156795979 No Longer Active Capo Poe MD Active TRIAMCINOLONE ACETONIDE 0.1 % OINT Apply to affected areas TID for up to 2 weeks TRIAMCINOLONE ACETONIDE 95658979875 No Longer Active Capo Poe MD Active ADULT ASPIRIN LOW STRENGTH 81 MG TBDP qd ASPIRIN 79630938024 Active Zoran Arzola MD Active ALEVE 220 MG TAB prn NAPROXEN SODIUM 17582539551 Active Capo Poe MD Active MACROBID 100 MG CAP 1 cap by mouth twice daily NITROFURANTOIN MONOHYD MACRO 21911447986 No Longer Active Dona Becker Active AZITHROMYCIN 250 MG TABS 2 po qd x 1 day, then 1 po qd x 4 days AZITHROMYCIN 90214827952 No Longer Active Capo Poe MD Active FISH OIL 500 MG CAPS by mouth twice a day OMEGA-3 FATTY ACIDS 89950811272 Active Capo Poe MD Active FLAXSEED OIL 1000 MG CAPS Take two by mouth daily FLAXSEED (LINSEED) 34816504267 Active Zoran Arzola MD Active RED YEAST RICE 600 MG CAPS Take two by mouth daily RED YEAST RICE EXTRACT 01624903740 Active Zoran Arzola MD Active MULTIVITAMINS CAPS Take one by mouth daily MULTIPLE VITAMIN 98813595780 Elza Arzola MD Active ICAPS MV TABS 2 po daily MULTIPLE VITAMINS-MINERALS 99072298160 Active Jam Arnold DO Active MACROBID 100 MG CAP 1 cap by mouth twice daily MACROBID 100 MG CAP 6096332 NITROFURANTOIN MONOHYD MACRO Inactive FERROUS SULFATE 325 (65 FE) MG TABS Take one by mouth daily FERROUS SULFATE 325 (65 FE) MG TABS 805619 FERROUS SULFATE Inactive HYDROCODONE-ACETAMINOPHEN 7.5-300 MG TABS take one every six hours HYDROCODONE-ACETAMINOPHEN 7.5-300 MG TABS 876707 HYDROCODONE- ACETAMINOPHEN Inactive FERROUS SULFATE 325 (65 FE) MG TABS 1 tablet by mouth daily FERROUS SULFATE 325 (65 FE) MG TABS 401017 FERROUS SULFATE Inactive ZOLOFT 100 MG TABS 1 po daily ZOLOFT 100 MG TABS 324994 SERTRALINE HCL Inactive SERTRALINE HCL 100 MG ORAL TABS take 1 tab daily SERTRALINE HCL 100 MG ORAL TABS 257818 SERTRALINE HCL Inactive TRAMADOL HCL 50 MG TABS 1-2 tablets every 6 hours as needed for pain TRAMADOL HCL 50 MG TABS 307620 TRAMADOL HCL Inactive NICOTINE 14 MG/24HR TRANS PT24 Apply/Change q 24hr NICOTINE 14 MG/24HR TRANS PT24 694389 NICOTINE Inactive FLOMAX 0.4 MG CAPS Take one by mouth daily FLOMAX 0.4 MG CAPS 590428 TAMSULOSIN HCL Inactive LORTAB 7.5-325 MG ORAL TABS 1 po q 6 hr prn pain LORTAB 7.5- 325 MG ORAL TABS 466617 HYDROCODONE-ACETAMINOPHEN Inactive VIIBRYD STARTER PACK 10 & 20 MG ORAL KIT 1 po qd as directed 2015 VIIBRYD STARTER PACK 10 & 20 MG ORAL KIT VILAZODONE HCL Inactive AZITHROMYCIN 250 MG TABS 2 po qd x 1 day, then 1 po qd x 4 days AZITHROMYCIN 250 MG TABS 4417829 AZITHROMYCIN Inactive TRIAMCINOLONE ACETONIDE 0.1 % OINT Apply to affected areas TID for up to 2 weeks TRIAMCINOLONE ACETONIDE 0.1 % OINT 1483514 TRIAMCINOLONE ACETONIDE Inactive TRIAMCINOLONE ACETONIDE 0.1 % OINT Apply to affected areas TID for up to 2 weeks TRIAMCINOLONE ACETONIDE 0.1 % OINT 3721557 TRIAMCINOLONE ACETONIDE Inactive Advance Directives Directive Description [...] mg/g mg/g{creat} 0-29 sodium, serum 138 mmol/L 043-651 0164/03/18 carbon dioxide, venous blood 25.5 mmol/L 21.0-32.0 potassium, serum 4.6 mmol/L 3.5-5.2 chloride, serum 101 mmol/L 98-107 blood glucose 129 mg/dL 65-110 urea nitrogen, blood 20 mg/dL 7-18 creatinine, serum 1.87 mg/dL 0.55-1.30 alanine aminotransferase (SGPT), serum 26 U/L 12-78 aspartate aminotransferase (SGOT), serum 20 U/L 15-37 calcium, serum 8.8 mg/dL 8.5-10.1 bilirubin, serum, total 0.40 mg/dL 0.00-1.00 cholesterol, serum 251 mg/dL 242-913 6703/03/18 triglyceride, serum, fasting 135 mg/dL 30-200 HDL [...] 0.00-4.00 Encounters Code Encounter Date Provider Facility CPT-96818 Level 4 Est. Patient 10:22:57 CDT Capo Poe MD [facility] CPT-62366 Level 4 Est. Patient 13:44:30 CDT Capo Poe MD [facility] CPT-77819 Level 3 Est. Patient 14:59:32 DRESSING ROOM ATTENDANT Capo Poe MD [facility] CPT-07051 Level 4 Est. Patient 10:46:15 DRESSING ROOM ATTENDANT Capo Poe MD [facility] CPT-28198 Level 3 Est. Patient 11:00:53 CDT Capo Poe MD [facility] CPT-90192 Level 3 Est. Patient 09:39:35 CDT Capo Poe MD [facility] CPT-84581 Level 3 Est. Patient 09:27:01 CDT Capo Poe MD [facility] CPT-38101 Level 3 Est. Patient 18:37:08 CDT Zoran Arzola MD [facility] CPT-00597 Level 3 Est. Patient 15:00:28 CDT Capo Poe MD [facility] CPT-72778 Level 3 Est. Patient 08:20:19 CDT Zoran Arzola MD [facility] CPT-13149 Level 3 Est. Patient 09:22:21 CDT Capo Poe MD [facility] CPT-99801 Level 4 Est. Patient 10:21:30 DRESSING ROOM ATTENDANT Capo Poe MD [facility] CPT-78790 Level 3 Est. Patient 17:08:51 DRESSING ROOM ATTENDANT Zoran Arzola MD [facility] CPT-33723 Level 4 Est. Patient 09:44:42 CDT Capo Poe MD [facility] CPT-55500 Level 4 Est. Patient 10:39:29 CDT Capo Poe MD [facility] CPT-43638 Level 3 Est. Patient 17:45:23 CDT Zoran Arzola MD [facility] CPT-84097 Level 4 Est. Patient 08:50:44 CDT Capo Poe MD [facility] CPT-46792 Level 3 Est. Patient 10:39:51 DRESSING ROOM ATTENDANT Capo Poe MD [facility] CPT-04138 Level 4 Est. Patient 09:44:24 DRESSING ROOM ATTENDANT Capo Poe MD [facility] CPT-98819 Level 3 Est. Patient 14:48:42 DRESSING ROOM ATTENDANT Zoran Arzola MD [facility] CPT-54209 Level 4 Est. Patient 10:24:02 CDT Capo Poe MD [facility] CPT-92042 Level 3 Est. Patient 15:42:00 CDT Maya Brownlee ERNST [facility] CPT-17127 Level 4 Est. Patient 13:34:15 CDT Capo Poe MD [facility] CPT-46658 Level 3 Est. Patient 15:32:10 DRESSING ROOM ATTENDANT Zoran Arzola MD [facility] CPT-34490 Level 3 New Patient 17:17:19 DRESSING ROOM ATTENDANT Zoran Arzola MD [facility] CPT-88083 Level 4 Est. Patient 10:25:01 DRESSING ROOM ATTENDANT Capo Poe MD [facility] CPT-95502 Level 3 Est. Patient 10:10:42 CDT Zoran Arzola MD [facility] CPT-77452 Level 3 Est. Patient 22:30:02 CDT Zoran Arzola MD [facility] CPT-36113 Level 4 Est. Patient 09:54:20 CDT Capo Poe MD [facility] CPT-96727 Level 3 Est. Patient 10:48:30 CDT Capo Poe MD [facility] CPT-38423 Level 3 Est. Patient 11:24:45 CDT Capo Poe MD [facility] CPT-54582 Level 3 Est. Patient 15:23:48 DRESSING ROOM ATTENDANT Capo Poe MD [facility] CPT-73588 Level 3 Est. Patient 15:10:03 DRESSING ROOM ATTENDANT Capo Poe MD [facility] CPT-61556 Level 3 Est. Patient 16:18:40 CDT Zoran Arzola MD [facility] Procedures Code Procedure Name Date Entry Date Standard Description CPT-42107 Venipuncture Draw Fee 09:32:34 CDT CPT-G0438 Initial Annual Wellness Exam 10:24:35 CDT CPT-70708 Venipuncture Draw Fee 09:46:29 CDT CPT-77099 Venipuncture Draw Fee 14:30:06 CDT CPT-61772 Venipuncture Draw Fee 10:58:22 CDT CPT-78973 Abd single AP View 08:32:00 CDT CPT-11810 Postop F/U Visit 21:13:08 CDT CPT-87290 Abd single AP View 15:50:24 CDT CPT-97543 Cystoscopy W/rem FB 15:21:28 CDT CPT-05037 Abd single AP View 14:06:45 CDT CPT-94435 Postop F/U Visit 09:48:32 CDT CPT-16373 Abd single AP View 13:58:26 CDT CPT-15609 Hip comp min 2V 10:27:18 DRESSING ROOM ATTENDANT CPT-83606 Urine Dip (Floor Use Only) 13:41:01 DRESSING ROOM ATTENDANT CPT-18291 Postop F/U Visit 11:17:48 CDT CPT-LR Lesion Removal 11:50:22 CDT CPT-OV Office Visit 11:50:22 CDT CPT-36424 Pneumovax 23 10:55:48 CDT CPT-12321 Administration single or combination vaccine inc oral 10 :55:48 CDT CPT-Cryo Cryotherapy 11:18:11 CDT CPT-OV Office Visit 11:18:11 CDT CPT-39492 LS spine AP and Lat 09:05:22 CDT CPT-20358 Bladder Scan 15:42:00 CDT CPT-10275 Cystoscopy 15:42:00 CDT CPT-OV Office Visit 16:37:19 DRESSING ROOM ATTENDANT CPT-95671 Bladder Scan 15:32:10 DRESSING ROOM ATTENDANT CPT-48941 Cystoscopy 15:32:10 DRESSING ROOM ATTENDANT CPT-01222 Abd single AP View 14:05:59 DRESSING ROOM ATTENDANT CPT-53013 Pill cam small bowel 09:48:39 DRESSING ROOM ATTENDANT CPT-74933 Urine Dip (Floor Use Only) 17:17:19 DRESSING ROOM ATTENDANT CPT-91806 Bladder Scan 17:17:19 DRESSING ROOM ATTENDANT CPT-OV Office Visit 11:50:26 DRESSING ROOM ATTENDANT CPT-56958 Bladder Scan 10:10:42 CDT CPT-66353 Venipuncture Draw Fee 09:14:04 CDT CPT-42068 Chest 2V Frontal and Lat 10:10:49 CDT CPT-69542 LS spine comp w obliq 11:50:11 CDT CPT-43616 Venipuncture Draw Fee 08:52:57 DRESSING ROOM ATTENDANT CPT-55571 Cystoscopy W/rem FB 18:37:28 CDT CPT-30117 Abd single AP View 16:18:40 CDT CPT-36191 Abd compl w upright 17:30:59 CDT
--- OUTSIDE RECORDS SUMMARY | 2016-11-22 16:57 | XMS REPORT | Clinical Summary ---
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 Simin [...] MG TABS 1 daily for infection LEVOFLOXACIN 43606875379 Active Leanna Baker APRN Active AZITHROMYCIN 250 MG ORAL TABS 2 po qd x 1, then 1 po qd x 4 AZITHROMYCIN 59764385174 Active Capo Poe MD Active PREDNISONE 20 MG ORAL TABS 2 po qd x 5 days PREDNISONE 16695209374 No Longer Active Capo Poe MD Active CARAFATE 1 GM ORAL TABS 1 tid SUCRALFATE 10234963625 Active Capo Poe MD Active RANITIDINE HCL 150 MG ORAL TABS 1 bid RANITIDINE HCL 02068326413 Active Capo Poe MD Active MULTIVITAMINS CAPS Take one by mouth daily MULTIPLE VITAMIN 71074194436 No Longer Active Capo Poe MD Active LISINOPRIL 10 MG TABS 1 tablet by mouth daily LISINOPRIL 69100122306 No Longer Active Capo Poe MD Active EQL IRON SUPPLEMENT THERAPY 325 MG ORAL TABS 1 tab po twice daily FERROUS SULFATE 71469805009 Active Jasmin Arboledalas RMA Active D ORAL TABS 2000 iu weekly D ORAL TABS Active Capo Poe MD Active CITALOPRAM HYDROBROMIDE 20 MG TABS 1 tablet by mouth daily CITALOPRAM HYDROBROMIDE 13619747906 Active Capo Poe MD Active CLARITIN 5 MG ORAL CHEW 1 tab po q day LORATADINE 13144530500 Active Felisa Daphney RMA Active VIIBRYD STARTER PACK 10 & 20 MG ORAL KIT 1 po qd as directed 2015 VILAZODONE HCL 67963698707 No Longer Active Felisa Daphney RMA Active HYDROXYZINE HCL 25 MG TAB 1 po qHS PRN Insomnia HYDROXYZINE HCL 91627334168 Active Capo Poe MD Active LORTAB 7.5-325 MG ORAL TABS 1 po q 6 hr prn pain HYDROCODONE- ACETAMINOPHEN 59200773440 No Longer Active Capo Poe MD Active FLOMAX 0.4 MG CAPS Take one by mouth daily TAMSULOSIN HCL 93116904210 No Longer Active Capo Poe MD Active TRIAMCINOLONE ACETONIDE 0.1 % CREA Apply to affected areas TID for up to 2 weeks TRIAMCINOLONE ACETONIDE 48258210025 Active Capo Poe MD Active NICOTINE 14 MG/24HR TRANS PT24 Apply/Change q 24hr NICOTINE 02361418532 No Longer Active Capo Poe MD Active TRAMADOL HCL 50 MG TABS 1-2 tablets every 6 hours as needed for pain TRAMADOL HCL 67424000367 No Longer Active Capo Poe MD Active SERTRALINE HCL 100 MG ORAL TABS take 1 tab daily SERTRALINE HCL 01012449596 No Longer Active Capo Poe MD Active LISINOPRIL-HYDROCHLOROTHIAZIDE 10-12.5 MG TABS 0.5 tab by mouth daily LISINOPRIL-HYDROCHLOROTHIAZIDE 10861018653 No Longer Active Capo Poe MD Active OMEPRAZOLE 20 MG CPDR 1 tablet by mouth daily OMEPRAZOLE 83833233829 Active Capo Poe MD Active WELLBUTRIN SR 150 MG ORAL [id number] 1 po BID BUPROPION HCL 77224322184 No Longer Active Capo Poe MD Active MIRALAX PACK 1 po qd PRN Constipation POLYETHYLENE GLYCOL 3350 94917375331 Active Capo Poe MD Active DULERA 100-5 MCG/ACT AERO 2 puffs BID MOMETASONE FURO- FORMOTEROL FUM 57989985520 Active Capo Poe MD Active ZOLOFT 100 MG TABS 1 po daily SERTRALINE HCL 48262006760 No Longer Active Zoran Arzola MD Active FERROUS SULFATE 325 (65 FE) MG TABS 1 tablet by mouth daily FERROUS SULFATE 62139902159 No Longer Active Capo Poe MD Active HYDROCODONE-ACETAMINOPHEN 7.5-300 MG TABS take one every six hours HYDROCODONE-ACETAMINOPHEN 28149914814 No Longer Active Capo Poe MD Active TRIAMCINOLONE ACETONIDE 0.1 % OINT Apply to affected areas TID for up to 2 weeks TRIAMCINOLONE ACETONIDE 37311155667 No Longer Active Joe Vargas RN Active FERROUS SULFATE 325 (65 FE) MG TABS Take one by mouth daily FERROUS SULFATE 64610294566 No Longer Active Capo Poe MD Active TRIAMCINOLONE ACETONIDE 0.1 % OINT Apply to affected areas TID for up to 2 weeks TRIAMCINOLONE ACETONIDE 69559694320 No Longer Active Capo Poe MD Active ADULT ASPIRIN LOW STRENGTH 81 MG TBDP qd ASPIRIN 65640452986 Active Zoran Arzola MD Active ALEVE 220 MG TAB prn NAPROXEN SODIUM 32359973517 Active Capo Poe MD Active MACROBID 100 MG CAP 1 cap by mouth twice daily NITROFURANTOIN MONOHYD MACRO 83844506554 No Longer Active Dona Becker Active AZITHROMYCIN 250 MG TABS 2 po qd x 1 day, then 1 po qd x 4 days AZITHROMYCIN 22738640995 No Longer Active Capo Poe MD Active FISH OIL 500 MG CAPS by mouth twice a day OMEGA-3 FATTY ACIDS 82841932819 Active Capo Poe MD Active FLAXSEED OIL 1000 MG CAPS Take two by mouth daily FLAXSEED (LINSEED) 39396897947 Active Zoran Arzola MD Active RED YEAST RICE 600 MG CAPS Take two by mouth daily RED YEAST RICE EXTRACT 40685558482 Active Zoran Arzola MD Active ICAPS MV TABS 2 po daily MULTIPLE VITAMINS-MINERALS 87209999139 Active Jam Arnold DO Active MACROBID 100 MG CAP 1 cap by mouth twice daily MACROBID 100 MG CAP 2555130 NITROFURANTOIN MONOHYD MACRO Inactive FERROUS SULFATE 325 (65 FE) MG TABS Take one by mouth daily FERROUS SULFATE 325 (65 FE) MG TABS 110441 FERROUS SULFATE Inactive HYDROCODONE-ACETAMINOPHEN 7.5-300 MG TABS take one every six hours HYDROCODONE-ACETAMINOPHEN 7.5-300 MG TABS 723924 HYDROCODONE- ACETAMINOPHEN Inactive FERROUS SULFATE 325 (65 FE) MG TABS 1 tablet by mouth daily FERROUS SULFATE 325 (65 FE) MG TABS 273309 FERROUS SULFATE Inactive ZOLOFT 100 MG TABS 1 po daily ZOLOFT 100 MG TABS 876077 SERTRALINE HCL Inactive SERTRALINE HCL 100 MG ORAL TABS take 1 tab daily SERTRALINE HCL 100 MG ORAL TABS 736199 SERTRALINE HCL Inactive TRAMADOL HCL 50 MG TABS 1-2 tablets every 6 hours as needed for pain TRAMADOL HCL 50 MG TABS 852140 TRAMADOL HCL Inactive NICOTINE 14 MG/24HR TRANS PT24 Apply/Change q 24hr NICOTINE 14 MG/24HR TRANS PT24 322525 NICOTINE Inactive FLOMAX 0.4 MG CAPS Take one by mouth daily FLOMAX 0.4 MG CAPS 890708 TAMSULOSIN HCL Inactive LORTAB 7.5-325 MG ORAL TABS 1 po q 6 hr prn pain LORTAB 7.5- 325 MG ORAL TABS 435979 HYDROCODONE-ACETAMINOPHEN Inactive VIIBRYD STARTER PACK 10 & 20 MG ORAL KIT 1 po qd as directed 2015 VIIBRYD STARTER PACK 10 & 20 MG ORAL KIT VILAZODONE HCL Inactive LISINOPRIL 10 MG TABS 1 tablet by mouth daily LISINOPRIL 10 MG TABS 334580 LISINOPRIL Inactive MULTIVITAMINS CAPS Take one by mouth daily MULTIVITAMINS CAPS MULTIPLE VITAMIN Inactive AZITHROMYCIN 250 MG TABS 2 po qd x 1 day, then 1 po qd x 4 days AZITHROMYCIN 250 MG TABS 8825832 AZITHROMYCIN Inactive TRIAMCINOLONE ACETONIDE 0.1 % OINT Apply to affected areas TID for up to 2 weeks TRIAMCINOLONE ACETONIDE 0.1 % OINT 6582302 TRIAMCINOLONE ACETONIDE Inactive TRIAMCINOLONE ACETONIDE 0.1 % OINT Apply to affected areas TID for up to 2 weeks TRIAMCINOLONE ACETONIDE 0.1 % OINT 1696509 TRIAMCINOLONE ACETONIDE Inactive PREDNISONE 20 MG ORAL TABS 2 po qd x 5 days PREDNISONE 20 MG ORAL TABS 952614 PREDNISONE Inactive Advance Directives Directive Description Start [...] Panel - Chemistry sodium, serum 137 mmol/L 017-012 5849/07/26 carbon dioxide, venous blood 27.3 mmol/L 21.0-32.0 [...] ... - Chemistry sodium, serum 141 mmol/L 425-297 7379/01/27 carbon dioxide, venous blood 29.7 mmol/L 21.0-32.0 [...] % 11.0-15.0 platelet count 214 THOUSAND/UL 10*3/mm3 277-065 1482/03/31 mean platelet volume 8.4 fL 7.5-12.5 Encounters Code Encounter Date Provider Facility CPT-17040 Level 3 Est. Patient 11:31:49 CDT Leanna Baker APRN [facility] CPT-16506 Level 3 Est. Patient 09:44:06 CDT Capo Poe MD [facility] CPT-60827 Level 4 Est. Patient 09:26:11 CRM ADMINISTRATOR Capo Poe MD [facility] CPT-94229 Level 4 Est. Patient 08:53:08 CDT Capo Poe MD [facility] CPT-57939 Level 4 Est. Patient 10:22:57 CDT Capo Poe MD [facility] CPT-99713 Level 4 Est. Patient 13:44:30 CDT Capo Poe MD [facility] CPT-13453 Level 3 Est. Patient 14:59:32 CRM ADMINISTRATOR Capo Poe MD [facility] CPT-53548 Level 4 Est. Patient 10:46:15 CRM ADMINISTRATOR Capo Poe MD [facility] CPT-30841 Level 3 Est. Patient 11:00:53 CDT Capo Poe MD [facility] CPT-35116 Level 3 Est. Patient 09:39:35 CDT Capo Poe MD [facility] CPT-39008 Level 3 Est. Patient 09:27:01 CDT Capo Poe MD [facility] CPT-50103 Level 3 Est. Patient 18:37:08 CDT Zoran Arzola MD [facility] CPT-04580 Level 3 Est. Patient 15:00:28 CDT Capo Poe MD [facility] CPT-78739 Level 3 Est. Patient 08:20:19 CDT Zoran Arzola MD [facility] CPT-77062 Level 3 Est. Patient 09:22:21 CDT Capo Poe MD [facility] CPT-74981 Level 4 Est. Patient 10:21:30 CRM ADMINISTRATOR Capo Poe MD [facility] CPT-59919 Level 3 Est. Patient 17:08:51 CRM ADMINISTRATOR Zoran Arzola MD [facility] CPT-73288 Level 4 Est. Patient 09:44:42 CDT Capo Poe MD [facility] CPT-25425 Level 4 Est. Patient 10:39:29 CDT Capo Poe MD [facility] CPT-84928 Level 3 Est. Patient 17:45:23 CDT Zoran Arzola MD [facility] CPT-87085 Level 4 Est. Patient 08:50:44 CDT Capo Poe MD [facility] CPT-86213 Level 3 Est. Patient 10:39:51 CRM ADMINISTRATOR Capo Poe MD [facility] CPT-72124 Level 4 Est. Patient 09:44:24 CRM ADMINISTRATOR Capo Poe MD [facility] CPT-73861 Level 3 Est. Patient 14:48:42 CRM ADMINISTRATOR Zoran Arzola MD [facility] CPT-25164 Level 4 Est. Patient 10:24:02 CDT Capo Poe MD [facility] CPT-22944 Level 3 Est. Patient 15:42:00 CDT Maya WRIGHTP [facility] CPT-96257 Level 4 Est. Patient 13:34:15 CDT Capo Poe MD [facility] CPT-71549 Level 3 Est. Patient 15:32:10 CRM ADMINISTRATOR Zoran Arzola MD [facility] CPT-04245 Level 3 New Patient 17:17:19 CRM ADMINISTRATOR Zoran Arzola MD [facility] CPT-67588 Level 4 Est. Patient 10:25:01 CRM ADMINISTRATOR Capo Poe MD [facility] CPT-53903 Level 3 Est. Patient 10:10:42 CDT Zoran Arzola MD [facility] CPT-08267 Level 3 Est. Patient 22:30:02 CDT Zoran Arzola MD [facility] CPT-43550 Level 4 Est. Patient 09:54:20 CDT Capo Poe MD [facility] CPT-75885 Level 3 Est. Patient 10:48:30 CDT Capo Poe MD [facility] CPT-29338 Level 3 Est. Patient 11:24:45 CDT Capo Poe MD [facility] CPT-80578 Level 3 Est. Patient 15:23:48 CRM ADMINISTRATOR Capo Poe MD [facility] CPT-81188 Level 3 Est. Patient 15:10:03 CRM ADMINISTRATOR Capo Poe MD [facility] CPT-66366 Level 3 Est. Patient 16:18:40 CDT Zoran Arzola MD [facility] Procedures Code Procedure Name Date Entry Date Standard Description CPT-89320 Chest 2V Frontal and Lat - XRAY USE ONLY 11:51:24 CDT CPT-66652 Venipuncture Draw Fee 11:31:49 CDT CPT-71204 Hemoccult IFOBT - LAB USE ONLY 14:11:43 CRM ADMINISTRATOR CPT-08550 TPSA - LAB USE ONLY 10:37:52 CRM ADMINISTRATOR CPT-85087 TSH - LAB USE ONLY 10:37:51 CRM ADMINISTRATOR CPT-97431 CMP - LAB USE ONLY 10:37:51 CRM ADMINISTRATOR CPT-56011 CBC with Diff - LAB USE ONLY 10:37:51 CRM ADMINISTRATOR CPT-37958 Venipuncture Draw Fee 10:37:51 CRM ADMINISTRATOR CPT-000 Give Pneumovax 10:39:30 CDT CPT-35052 Venipuncture Draw Fee 09:32:34 CDT CPT-G0438 Initial Annual Wellness Exam 10:24:35 CDT CPT-13782 Venipuncture Draw Fee 09:46:29 CDT CPT-27322 Venipuncture Draw Fee 14:30:06 CDT CPT-83055 Venipuncture Draw Fee 10:58:22 CDT CPT-76121 Abd single AP View 08:32:00 CDT CPT-45493 Postop F/U Visit 21:13:08 CDT CPT-83667 Abd single AP View 15:50:24 CDT CPT-67069 Cystoscopy W/rem FB 15:21:28 CDT CPT-06965 Abd single AP View 14:06:45 CDT CPT-23190 Postop F/U Visit 09:48:32 CDT CPT-10133 Abd single AP View 13:58:26 CDT CPT-11509 Hip comp min 2V 10:27:18 CRM ADMINISTRATOR CPT-11069 Urine Dip (Floor Use Only) 13:41:01 CRM ADMINISTRATOR CPT-71690 Postop F/U Visit 11:17:48 CDT CPT-LR Lesion Removal 11:50:22 CDT CPT-OV Office Visit 11:50:22 CDT CPT-86269 Pneumovax 23 10:55:48 CDT CPT-31229 Administration single or combination vaccine inc oral 10 :55:48 CDT CPT-Cryo Cryotherapy 11:18:11 CDT CPT-OV Office Visit 11:18:11 CDT CPT-37411 LS spine AP and Lat 09:05:22 CDT CPT-96123 Bladder Scan 15:42:00 CDT CPT-67119 Cystoscopy 15:42:00 CDT CPT-OV Office Visit 16:37:19 CRM ADMINISTRATOR CPT-08718 Bladder Scan 15:32:10 CRM ADMINISTRATOR CPT-54049 Cystoscopy 15:32:10 CRM ADMINISTRATOR CPT-81713 Abd single AP View 14:05:59 CRM ADMINISTRATOR CPT-55657 Pill cam small bowel 09:48:39 CRM ADMINISTRATOR CPT-36664 Urine Dip (Floor Use Only) 17:17:19 CRM ADMINISTRATOR CPT-15673 Bladder Scan 17:17:19 CRM ADMINISTRATOR CPT-OV Office Visit 11:50:26 CRM ADMINISTRATOR CPT-17443 Bladder Scan 10:10:42 CDT CPT-87477 Venipuncture Draw Fee 09:14:04 CDT CPT-31990 Chest 2V Frontal and Lat 10:10:49 CDT CPT-87114 LS spine comp w obliq 11:50:11 CDT CPT-04592 Venipuncture Draw Fee 08:52:57 CRM ADMINISTRATOR CPT-12347 Cystoscopy W/rem FB 18:37:28 CDT CPT-71927 Abd single AP View 16:18:40 CDT CPT-69686 Abd compl w upright 17:30:59 CDT
--- OUTSIDE RECORDS SUMMARY | 2016-11-22 16:58 | XMS REPORT | Clinical Summary ---
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 Cpao Poe MD Chondritis of pinna UTI 599.0 [...] 1 tablet by mouth daily CITALOPRAM HYDROBROMIDE 44476117973 Active Capo Poe MD Active CLARITIN 5 MG ORAL CHEW 1 tab po q day LORATADINE 03163344278 Active Felisa Daphney TEIXEIRA Active VIIBRYD STARTER PACK 10 & 20 MG ORAL KIT 1 po qd as directed 2015 VILAZODONE HCL 51744159791 No Longer Active Felisa TEIXEIRA Active HYDROXYZINE HCL 25 MG TAB 1 po qHS PRN Insomnia HYDROXYZINE HCL 93857856789 Active Capo Poe MD Active LISINOPRIL 10 MG TABS 1 tablet by mouth daily LISINOPRIL 19106315426 Active Capo Poe MD Active LORTAB 7.5-325 MG ORAL TABS 1 po q 6 hr prn pain HYDROCODONE- ACETAMINOPHEN 97796874888 No Longer Active Capo Poe MD Active FLOMAX 0.4 MG CAPS Take one by mouth daily TAMSULOSIN HCL 68182088290 No Longer Active Capo Poe MD Active TRIAMCINOLONE ACETONIDE 0.1 % CREA Apply to affected areas TID for up to 2 weeks TRIAMCINOLONE ACETONIDE 77981739462 Active Capo Poe MD Active NICOTINE 14 MG/24HR TRANS PT24 Apply/Change q 24hr NICOTINE 19350094681 No Longer Active Capo Poe MD Active TRAMADOL HCL 50 MG TABS 1-2 tablets every 6 hours as needed for pain TRAMADOL HCL 34754415310 No Longer Active Capo Poe MD Active SERTRALINE HCL 100 MG ORAL TABS take 1 tab daily SERTRALINE HCL 03827688941 No Longer Active Capo Poe MD Active LISINOPRIL-HYDROCHLOROTHIAZIDE 10-12.5 MG TABS 0.5 tab by mouth daily LISINOPRIL-HYDROCHLOROTHIAZIDE 13834754305 No Longer Active Capo Poe MD Active OMEPRAZOLE 20 MG CPDR 1 tablet by mouth daily OMEPRAZOLE 33364157697 Active Capo Poe MD Active WELLBUTRIN SR 150 MG ORAL [id number] 1 po BID BUPROPION HCL 65057325095 No Longer Active Capo Poe MD Active MIRALAX PACK 1 po qd PRN Constipation POLYETHYLENE GLYCOL 3350 87099369379 Active Capo Poe MD Active DULERA 100-5 MCG/ACT AERO 2 puffs BID MOMETASONE FURO- FORMOTEROL FUM 11637197421 Active Capo Poe MD Active ZOLOFT 100 MG TABS 1 po daily SERTRALINE HCL 42431869503 No Longer Active Zoran Arzola MD Active FERROUS SULFATE 325 (65 FE) MG TABS 1 tablet by mouth daily FERROUS SULFATE 43136138152 No Longer Active Capo Poe MD Active HYDROCODONE-ACETAMINOPHEN 7.5-300 MG TABS take one every six hours HYDROCODONE-ACETAMINOPHEN 83367916629 No Longer Active Capo Poe MD Active TRIAMCINOLONE ACETONIDE 0.1 % OINT Apply to affected areas TID for up to 2 weeks TRIAMCINOLONE ACETONIDE 69592596127 No Longer Active Joe Vargas RN Active FERROUS SULFATE 325 (65 FE) MG TABS Take one by mouth daily FERROUS SULFATE 79633008148 No Longer Active Capo Poe MD Active TRIAMCINOLONE ACETONIDE 0.1 % OINT Apply to affected areas TID for up to 2 weeks TRIAMCINOLONE ACETONIDE 65707729488 No Longer Active Capo Poe MD Active ADULT ASPIRIN LOW STRENGTH 81 MG TBDP qd ASPIRIN 58985761093 Active Zoran Arzola MD Active ALEVE 220 MG TAB prn NAPROXEN SODIUM 42749977066 Active Capo Poe MD Active MACROBID 100 MG CAP 1 cap by mouth twice daily NITROFURANTOIN MONOHYD MACRO 66773990008 No Longer Active Dona Becker Active AZITHROMYCIN 250 MG TABS 2 po qd x 1 day, then 1 po qd x 4 days AZITHROMYCIN 22400533045 No Longer Active Capo Poe MD Active FISH OIL 500 MG CAPS by mouth twice a day OMEGA-3 FATTY ACIDS 59795620379 Active Capo Poe MD Active FLAXSEED OIL 1000 MG CAPS Take two by mouth daily FLAXSEED (LINSEED) 58354475208 Active Zoran Arzola MD Active RED YEAST RICE 600 MG CAPS Take two by mouth daily RED YEAST RICE EXTRACT 96693276884 Active Zoran Arzola MD Active MULTIVITAMINS CAPS Take one by mouth daily MULTIPLE VITAMIN 12990494796 Active Zoran Arzola MD Active ICAPS MV TABS 2 po daily MULTIPLE VITAMINS-MINERALS 12197121766 Active Jam Arnold DO Active MACROBID 100 MG CAP 1 cap by mouth twice daily MACROBID 100 MG CAP 9218346 NITROFURANTOIN MONOHYD MACRO Inactive FERROUS SULFATE 325 (65 FE) MG TABS Take one by mouth daily FERROUS SULFATE 325 (65 FE) MG TABS 870938 FERROUS SULFATE Inactive HYDROCODONE-ACETAMINOPHEN 7.5-300 MG TABS take one every six hours HYDROCODONE-ACETAMINOPHEN 7.5-300 MG TABS 014998 HYDROCODONE- ACETAMINOPHEN Inactive FERROUS SULFATE 325 (65 FE) MG TABS 1 tablet by mouth daily FERROUS SULFATE 325 (65 FE) MG TABS 882357 FERROUS SULFATE Inactive ZOLOFT 100 MG TABS 1 po daily ZOLOFT 100 MG TABS 165566 SERTRALINE HCL Inactive SERTRALINE HCL 100 MG ORAL TABS take 1 tab daily SERTRALINE HCL 100 MG ORAL TABS 416112 SERTRALINE HCL Inactive TRAMADOL HCL 50 MG TABS 1-2 tablets every 6 hours as needed for pain TRAMADOL HCL 50 MG TABS 876789 TRAMADOL HCL Inactive NICOTINE 14 MG/24HR TRANS PT24 Apply/Change q 24hr NICOTINE 14 MG/24HR TRANS PT24 723308 NICOTINE Inactive FLOMAX 0.4 MG CAPS Take one by mouth daily FLOMAX 0.4 MG CAPS 818720 TAMSULOSIN HCL Inactive LORTAB 7.5-325 MG ORAL TABS 1 po q 6 hr prn pain LORTAB 7.5- 325 MG ORAL TABS 218189 HYDROCODONE-ACETAMINOPHEN Inactive VIIBRYD STARTER PACK 10 & 20 MG ORAL KIT 1 po qd as directed 2015 VIIBRYD STARTER PACK 10 & 20 MG ORAL KIT VILAZODONE HCL Inactive AZITHROMYCIN 250 MG TABS 2 po qd x 1 day, then 1 po qd x 4 days AZITHROMYCIN 250 MG TABS 6961698 AZITHROMYCIN Inactive TRIAMCINOLONE ACETONIDE 0.1 % OINT Apply to affected areas TID for up to 2 weeks TRIAMCINOLONE ACETONIDE 0.1 % OINT 5978096 TRIAMCINOLONE ACETONIDE Inactive TRIAMCINOLONE ACETONIDE 0.1 % OINT Apply to affected areas TID for up to 2 weeks TRIAMCINOLONE ACETONIDE 0.1 % OINT 0537985 TRIAMCINOLONE ACETONIDE Inactive Advance Directives Directive Description [...] Description Lab Report: BUN, Creatinine - Chemistry creatinine, serum 1.29 mg/dL 0.55-1.30 urea nitrogen, blood 15 mg/dL - Lab Report: Comp. Metabolic Panel, Lipid Panel, HGBA1C, CBC, MICROALB/CR ... - Chemistry albumin/creatinine ratio, urine 30 - 300 mg/g mg/g{creat} 0-29 sodium, serum 138 mmol/L 547-087 0621/03/18 carbon dioxide, venous blood 25.5 mmol/L 21.0-32.0 potassium, serum 4.6 mmol/L 3.5-5.2 chloride, serum 101 mmol/L 98-107 blood glucose 129 mg/dL 65-110 urea nitrogen, blood 20 mg/dL 7-18 creatinine, serum 1.87 mg/dL 0.55-1.30 alanine aminotransferase (SGPT), serum 26 U/L 12-78 aspartate aminotransferase (SGOT), serum 20 U/L 15-37 calcium, serum 8.8 mg/dL 8.5-10.1 bilirubin, serum, total 0.40 mg/dL 0.00-1.00 cholesterol, serum 251 mg/dL 687-464 9461/03/18 triglyceride, serum, fasting 135 mg/dL 30-200 HDL [...] 0-19 Encounters Code Encounter Date Provider Facility CPT-15969 Level 4 Est. Patient 08:53:08 CDT Capo Poe MD [facility] CPT-23639 Level 4 Est. Patient 10:22:57 CDT Capo Poe MD [facility] CPT-00067 Level 4 Est. Patient 13:44:30 CDT Capo Poe MD [facility] CPT-68161 Level 3 Est. Patient 14:59:32 [employer] Capo Poe MD [facility] CPT-05033 Level 4 Est. Patient 10:46:15 [employer] Capo Poe MD [facility] CPT-98881 Level 3 Est. Patient 11:00:53 CDT Capo Poe MD [facility] CPT-87930 Level 3 Est. Patient 09:39:35 CDT Capo Poe MD [facility] CPT-73755 Level 3 Est. Patient 09:27:01 CDT Capo Poe MD [facility] CPT-88064 Level 3 Est. Patient 18:37:08 CDT Zoran Arzola MD [facility] CPT-08206 Level 3 Est. Patient 15:00:28 CDT Capo Poe MD [facility] CPT-27290 Level 3 Est. Patient 08:20:19 CDT Zoran Arzola MD [facility] CPT-99332 Level 3 Est. Patient 09:22:21 CDT Capo Poe MD [facility] CPT-59921 Level 4 Est. Patient 10:21:30 [employer] Capo Poe MD [facility] CPT-24063 Level 3 Est. Patient 17:08:51 [employer] Zoran Arzola MD [facility] CPT-43464 Level 4 Est. Patient 09:44:42 CDT Capo Poe MD [facility] CPT-83257 Level 4 Est. Patient 10:39:29 CDT Capo Poe MD [facility] CPT-91821 Level 3 Est. Patient 17:45:23 CDT Zoran Arzola MD [facility] CPT-72912 Level 4 Est. Patient 08:50:44 CDT Capo Poe MD [facility] CPT-65487 Level 3 Est. Patient 10:39:51 [employer] Capo Poe MD [facility] CPT-48863 Level 4 Est. Patient 09:44:24 [employer] Capo Poe MD [facility] CPT-81431 Level 3 Est. Patient 14:48:42 [employer] Zoran Arzola MD [facility] CPT-19391 Level 4 Est. Patient 10:24:02 CDT Capo Poe MD [facility] CPT-87060 Level 3 Est. Patient 15:42:00 CDT Maya DUKES [facility] CPT-90157 Level 4 Est. Patient 13:34:15 CDT Capo Poe MD [facility] CPT-17205 Level 3 Est. Patient 15:32:10 [employer] Zoran Arzola MD [facility] CPT-65227 Level 3 New Patient 17:17:19 [employer] Zoran Arzola MD [facility] CPT-38649 Level 4 Est. Patient 10:25:01 [employer] Capo Poe MD [facility] CPT-02989 Level 3 Est. Patient 10:10:42 CDT Zoran Arzola MD [facility] CPT-22020 Level 3 Est. Patient 22:30:02 CDT Zoran Arzola MD [facility] CPT-95002 Level 4 Est. Patient 09:54:20 CDT Capo Poe MD [facility] CPT-11381 Level 3 Est. Patient 10:48:30 CDT Capo Poe MD [facility] CPT-68210 Level 3 Est. Patient 11:24:45 CDT Capo Poe MD [facility] CPT-14366 Level 3 Est. Patient 15:23:48 [employer] Capo Poe MD [facility] CPT-87488 Level 3 Est. Patient 15:10:03 [employer] Capo Poe MD [facility] CPT-15895 Level 3 Est. Patient 16:18:40 CDT Zoran Arzola MD [facility] Procedures Code Procedure Name Date Entry Date Standard Description CPT-95555 Venipuncture Draw Fee 09:32:34 CDT CPT-G0438 Initial Annual Wellness Exam 10:24:35 CDT CPT-95500 Venipuncture Draw Fee 09:46:29 CDT CPT-64151 Venipuncture Draw Fee 14:30:06 CDT CPT-57204 Venipuncture Draw Fee 10:58:22 CDT CPT-30744 Abd single AP View 08:32:00 CDT CPT-24583 Postop F/U Visit 21:13:08 CDT CPT-41328 Abd single AP View 15:50:24 CDT CPT-28963 Cystoscopy W/rem FB 15:21:28 CDT CPT-82288 Abd single AP View 14:06:45 CDT CPT-84929 Postop F/U Visit 09:48:32 CDT CPT-71375 Abd single AP View 13:58:26 CDT CPT-93679 Hip comp min 2V 10:27:18 [employer] CPT-26886 Urine Dip (Floor Use Only) 13:41:01 [employer] CPT-63850 Postop F/U Visit 11:17:48 CDT CPT-LR Lesion Removal 11:50:22 CDT CPT-OV Office Visit 11:50:22 CDT CPT-04235 Pneumovax 23 10:55:48 CDT CPT-49398 Administration single or combination vaccine inc oral 10 :55:48 CDT CPT-Cryo Cryotherapy 11:18:11 CDT CPT-OV Office Visit 11:18:11 CDT CPT-07804 LS spine AP and Lat 09:05:22 CDT CPT-88284 Bladder Scan 15:42:00 CDT CPT-32424 Cystoscopy 15:42:00 CDT CPT-OV Office Visit 16:37:19 [employer] CPT-27562 Bladder Scan 15:32:10 [employer] CPT-08612 Cystoscopy 15:32:10 [employer] CPT-12137 Abd single AP View 14:05:59 [employer] CPT-13038 Pill cam small bowel 09:48:39 [employer] CPT-03375 Urine Dip (Floor Use Only) 17:17:19 [employer] CPT-98909 Bladder Scan 17:17:19 [employer] CPT-OV Office Visit 11:50:26 [employer] CPT-87410 Bladder Scan 10:10:42 CDT CPT-75969 Venipuncture Draw Fee 09:14:04 CDT CPT-98993 Chest 2V Frontal and Lat 10:10:49 CDT CPT-75878 LS spine comp w obliq 11:50:11 CDT CPT-82001 Venipuncture Draw Fee 08:52:57 [employer] CPT-31737 Cystoscopy W/rem FB 18:37:28 CDT CPT-83463 Abd single AP View 16:18:40 CDT CPT-49270 Abd compl w upright 17:30:59 CDT
--- OUTSIDE RECORDS SUMMARY | 2016-11-22 16:59 | XMS REPORT | Clinical Summary ---
Author Author Admin, MARGE Organization 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 Inactive Capo Peo MD RENAL CALCULUS ICD-592.9 Inactive Capo Poe MD FLANK PAIN, RIGHT ICD-789.09 Inactive Capo oPe MD SCIATICA ICD-724.3 Inactive Capo Poe MD [...] 2 puffs BID MOMETASONE FURO- FORMOTEROL FUM 03223013536 Active Capo Poe MD Active SERTRALINE HCL 100 MG ORAL TABS take 1 tab daily SERTRALINE HCL 04424195782 Active Capo Poe MD Active ZOLOFT 100 MG TABS 1 po daily SERTRALINE HCL 26617225127 No Longer Active Zoran Arzola MD Active FERROUS SULFATE 325 (65 FE) MG TABS 1 tablet by mouth daily FERROUS SULFATE 46992919624 No Longer Active Capo Poe MD Active TRAMADOL HCL 50 MG TABS 1-2 tablets every 6 hours as needed for pain TRAMADOL HCL 11930000058 Active Capo Poe MD Active HYDROCODONE-ACETAMINOPHEN 7.5-300 MG TABS take one every six hours HYDROCODONE-ACETAMINOPHEN 32165704047 No Longer Active Capo Poe MD Active TRIAMCINOLONE ACETONIDE 0.1 % OINT Apply to affected areas TID for up to 2 weeks TRIAMCINOLONE ACETONIDE 69646825426 No Longer Active Joe Vargas RN Active FERROUS SULFATE 325 (65 FE) MG TABS Take one by mouth daily FERROUS SULFATE 12766917670 No Longer Active Capo Poe MD Active TRIAMCINOLONE ACETONIDE 0.1 % OINT Apply to affected areas TID for up to 2 weeks TRIAMCINOLONE ACETONIDE 05408299995 No Longer Active Capo Poe MD Active ADULT ASPIRIN LOW STRENGTH 81 MG TBDP qd ASPIRIN 58409077317 Active Zoran Arzola MD Active ALEVE 220 MG TAB prn NAPROXEN SODIUM 57129054095 Active Capo Poe MD Active LISINOPRIL-HYDROCHLOROTHIAZIDE 10-12.5 MG TABS 1 tab by mouth daily LISINOPRIL-HYDROCHLOROTHIAZIDE 55279402244 Active Capo Poe MD Active MACROBID 100 MG CAP 1 cap by mouth twice daily NITROFURANTOIN MONOHYD MACRO 19832945432 No Longer Active Dona Becker Active AZITHROMYCIN 250 MG TABS 2 po qd x 1 day, then 1 po qd x 4 days AZITHROMYCIN 38038325821 No Longer Active Capo Poe MD Active FISH OIL 500 MG CAPS by mouth twice a day OMEGA-3 FATTY ACIDS 10102933630 Active Capo Poe MD Active FLAXSEED OIL 1000 MG CAPS Take two by mouth daily FLAXSEED (LINSEED) 69059181988 Active Zoran Arzola MD Active RED YEAST RICE 600 MG CAPS Take two by mouth daily RED YEAST RICE EXTRACT 87737685774 Active Zoran Arzola MD Active MULTIVITAMINS CAPS Take one by mouth daily MULTIPLE VITAMIN 50367884726 Active Zoran Arzola MD Active ICAPS MV TABS 2 po daily MULTIPLE VITAMINS-MINERALS 99415137436 Active Jam Arnold DO Active MACROBID 100 MG CAP 1 cap by mouth twice daily MACROBID 100 MG CAP 504451 NITROFURANTOIN MONOHYD MACRO Inactive FERROUS SULFATE 325 (65 FE) MG TABS Take one by mouth daily FERROUS SULFATE 325 (65 FE) MG TABS 891885 FERROUS SULFATE Inactive HYDROCODONE-ACETAMINOPHEN 7.5-300 MG TABS take one every six hours HYDROCODONE-ACETAMINOPHEN 7.5-300 MG TABS 103829 HYDROCODONE- ACETAMINOPHEN Inactive FERROUS SULFATE 325 (65 FE) MG TABS 1 tablet by mouth daily FERROUS SULFATE 325 (65 FE) MG TABS 303144 FERROUS SULFATE Inactive ZOLOFT 100 MG TABS 1 po daily ZOLOFT 100 MG TABS 833456 SERTRALINE HCL Inactive AZITHROMYCIN 250 MG TABS 2 po qd x 1 day, then 1 po qd x 4 days AZITHROMYCIN 250 MG TABS 3439584 AZITHROMYCIN Inactive TRIAMCINOLONE ACETONIDE 0.1 % OINT Apply to affected areas TID for up to 2 weeks TRIAMCINOLONE ACETONIDE 0.1 % OINT 3631755 TRIAMCINOLONE ACETONIDE Inactive TRIAMCINOLONE ACETONIDE 0.1 % OINT Apply to affected areas TID for up to 2 weeks TRIAMCINOLONE ACETONIDE 0.1 % OINT 7065693 TRIAMCINOLONE ACETONIDE Inactive Advance Directives Directive Description [...] Panel - Chemistry sodium, serum 140 mmol/L 753-939 6353/05/21 potassium, serum 4.0 mmol/L 3.5-5.2 chloride, serum [...] CBC - Chemistry cholesterol, serum 207 mg/dL 035-540 1417/02/11 triglyceride, serum, fasting 74 mg/dL 30-200 HDL cholesterol, serum 62 mg/dL 32-96 LDL cholesterol, serum 130 mg/dL 0-130 sodium, serum 144 mmol/L 340-796 9642/02/11 potassium, serum 5.0 mmol/L 3.5-5.2 chloride, serum [...] negative Encounters Code Encounter Date Provider Facility CPT-29713 Level 3 Est. Patient 08:20:19 CDT Zoran Arzola MD [facility] CPT-91324 Level 3 Est. Patient 09:22:21 CDT Capo Poe MD [facility] CPT-58490 Level 4 Est. Patient 10:21:30 [employer]YE [employer]PERATOR Capo Poe MD [facility] CPT-41625 Level 3 Est. Patient 17:08:51 DYE CAN OPERATOR Zoran Arzola MD [facility] CPT-96231 Level 4 Est. Patient 09:44:42 CDT Capo Poe MD [facility] CPT-94549 Level 4 Est. Patient 10:39:29 CDT Capo Poe MD [facility] CPT-46962 Level 3 Est. Patient 17:45:23 CDT Zoran Arzola MD [facility] CPT-75194 Level 4 Est. Patient 08:50:44 CDT Capo Poe MD [facility] CPT-61302 Level 3 Est. Patient 10:39:51 DYE CAN OPERATOR Capo Poe MD [facility] CPT-28357 Level 4 Est. Patient 09:44:24 DYE CAN OPERATOR Capo Poe MD [facility] CPT-02499 Level 3 Est. Patient 14:48:42 DYE CAN OPERATOR Zoran Arzola MD [facility] CPT-98512 Level 4 Est. Patient 10:24:02 CDT Capo Poe MD [facility] CPT-42231 Level 3 Est. Patient 15:42:00 [facility] Level 4 Est. Patient 13:34:15 CDT Capo Poe MD [facility] CPT-36991 Level 3 Est. Patient 15:32:10 DYE CAN OPERATOR Zoran Arzola MD [facility] CPT-29423 Level 3 New Patient 17:17:19 DYE CAN OPERATOR Zoran Arzola MD [facility] CPT-13994 Level 4 Est. Patient 10:25:01 DYE CAN OPERATOR Capo Poe MD [facility] CPT-68446 Level 3 Est. Patient 10:10:42 CDT Zoran Arzola MD [facility] CPT-69037 Level 3 Est. Patient 22:30:02 CDT Zoran Arzola MD [facility] CPT-50535 Level 4 Est. Patient 09:54:20 CDT Capo Poe MD [facility] CPT-53401 Level 3 Est. Patient 10:48:30 CDT Capo Poe MD [facility] CPT-65111 Level 3 Est. Patient 11:24:45 CDT Capo Poe MD [facility] CPT-24459 Level 3 Est. Patient 15:23:48 DYE CAN OPERATOR Capo Poe MD [facility] CPT-20671 Level 3 Est. Patient 15:10:03 DYE CAN OPERATOR Capo Poe MD [facility] CPT-02181 Level 3 Est. Patient 16:18:40 CDT Zoran Arzola MD [facility] Procedures Code Procedure Name Date Entry Date Standard Description CPT-05698 Postop F/U Visit 09:48:32 CDT CPT-30233 Abd single AP View 13:58:26 CDT CPT-29344 Hip comp min 2V 10:27:18 DYE CAN OPERATOR CPT-28899 Urine Dip (Floor Use Only) 13:41:01 DYE CAN OPERATOR CPT-98170 Postop F/U Visit 11:17:48 CDT CPT-LR Lesion Removal 11:50:22 CDT CPT-OV Office Visit 11:50:22 CDT CPT-85263 Pneumovax 23 10:55:48 CDT CPT-90062 Administration single or combination vaccine inc oral 10 :55:48 CDT CPT-Cryo Cryotherapy 11:18:11 CDT CPT-OV Office Visit 11:18:11 CDT CPT-58662 LS spine AP and Lat 09:05:22 CDT CPT-48695 Bladder Scan 15:42:00 CDT CPT-62234 Cystoscopy 15:42:00 CDT CPT-OV Office Visit 16:37:19 DYE CAN OPERATOR CPT-20037 Bladder Scan 15:32:10 DYE CAN OPERATOR CPT-26704 Cystoscopy 15:32:10 DYE CAN OPERATOR CPT-89641 Abd single AP View 14:05:59 DYE CAN OPERATOR CPT-87062 Pill cam small bowel 09:48:39 DYE CAN OPERATOR CPT-11337 Urine Dip (Floor Use Only) 17:17:19 DYE CAN OPERATOR CPT-65091 Bladder Scan 17:17:19 DYE CAN OPERATOR CPT-OV Office Visit 11:50:26 DYE CAN OPERATOR CPT-29554 Bladder Scan 10:10:42 CDT CPT-47010 Venipuncture Draw Fee 09:14:04 CDT CPT-63986 Chest 2V Frontal and Lat 10:10:49 CDT CPT-56910 LS spine comp w obliq 11:50:11 CDT CPT-86088 Venipuncture Draw Fee 08:52:57 DYE CAN OPERATOR CPT-98867 Cystoscopy W/rem FB 18:37:28 CDT CPT-77764 Abd single AP View 16:18:40 CDT CPT-31741 Abd compl w upright 17:30:59 CDT
--- OUTSIDE RECORDS SUMMARY | 2016-11-22 17:01 | XMS REPORT | Clinical Summary ---
Author Author Admin, QIE Organization [employer] Address Unknown Phone Unavailable Allergies, Adverse Reactions, [...] Poe MD Urinary frequency COUGH 786.2 Resolved Caop Poe MD Cough ELEVATED P S A 790.93 Resolved Capo Poe MD Elevated prostate specific antigen [PSA] URINARY TRACT INFECTION 599.0 Resolved Capo Peo MD Urinary tract infection, site not specified Glucose intolerance 271.3 Active Capo Poe MD Intestinal disaccharidase deficiencies and disaccharide malabsorption DYSPNEA 786.09 Correction Capo Poe MD Other dyspnea and respiratory abnormality C O P D 496 Inactive Capo Peo MD Chronic airway obstruction, not [...] pain Prostate cancer screening V76.44 Resolved Capo Peo MD Screening for malignant neoplasms of prostate Pruritic rash 698.8 Resolved Capo Poe MD Other specified pruritic conditions Elevated creatinine 790.4 Resolved Capo Poe MD Nonspecific elevation of levels of transaminase or lactic acid dehydrogenase [LDH] Nephrolithiasis 592.0 Active Capo Poe MD Calculus of kidney Near syncope 780.2 Active Capo Poe MD Syncope and collapse Iron deficiency 280.9 Active Jasmin Dixon [facility] Iron deficiency anemia, unspecified COPD, acute exacerbation [...] MG TABS 1 daily for infection LEVOFLOXACIN 63616578830 Active Leanna Baker APRN Active AZITHROMYCIN 250 MG ORAL TABS 2 po qd x 1, then 1 po qd x 4 AZITHROMYCIN 47004751676 Active Capo Poe MD Active PREDNISONE 20 MG ORAL TABS 2 po qd x 5 days PREDNISONE 06283091143 No Longer Active Capo Poe MD Active CARAFATE 1 GM ORAL TABS 1 tid SUCRALFATE 55858548164 Active Capo Poe MD Active RANITIDINE HCL 150 MG ORAL TABS 1 bid RANITIDINE HCL 44539150453 Active Capo Poe MD Active MULTIVITAMINS CAPS Take one by mouth daily MULTIPLE VITAMIN 18230192540 No Longer Active Capo Poe MD Active LISINOPRIL 10 MG TABS 1 tablet by mouth daily LISINOPRIL 22117878438 No Longer Active Capo Poe MD Active EQL IRON SUPPLEMENT THERAPY 325 MG ORAL TABS 1 tab po twice daily FERROUS SULFATE 84444366229 Active Jasminailyn Dixon RMA Active D ORAL TABS 2000 iu weekly D ORAL TABS Active Capo Poe MD Active CITALOPRAM HYDROBROMIDE 20 MG TABS 1 tablet by mouth daily CITALOPRAM HYDROBROMIDE 62272473406 Active Capo Poe MD Active CLARITIN 5 MG ORAL CHEW 1 tab po q day LORATADINE 79545035169 Active Felisa Daphney TEIXEIRA Active VIIBRYD STARTER PACK 10 & 20 MG ORAL KIT 1 po qd as directed 2015 VILAZODONE HCL 80179555076 No Longer Active Felisa Daphney TEIXEIRA Active HYDROXYZINE HCL 25 MG TAB 1 po qHS PRN Insomnia HYDROXYZINE HCL 00854165122 Active Capo Poe MD Active LORTAB 7.5-325 MG ORAL TABS 1 po q 6 hr prn pain HYDROCODONE- ACETAMINOPHEN 88789456210 No Longer Active Capo Poe MD Active FLOMAX 0.4 MG CAPS Take one by mouth daily TAMSULOSIN HCL 06108515125 No Longer Active Capo Poe MD Active TRIAMCINOLONE ACETONIDE 0.1 % CREA Apply to affected areas TID for up to 2 weeks TRIAMCINOLONE ACETONIDE 48238397375 Active Capo Poe MD Active NICOTINE 14 MG/24HR TRANS PT24 Apply/Change q 24hr NICOTINE 27931485517 No Longer Active Capo Poe MD Active TRAMADOL HCL 50 MG TABS 1-2 tablets every 6 hours as needed for pain TRAMADOL HCL 91186748031 No Longer Active Capo Poe MD Active SERTRALINE HCL 100 MG ORAL TABS take 1 tab daily SERTRALINE HCL 65831673978 No Longer Active Capo Poe MD Active LISINOPRIL-HYDROCHLOROTHIAZIDE 10-12.5 MG TABS 0.5 tab by mouth daily LISINOPRIL-HYDROCHLOROTHIAZIDE 76337888613 No Longer Active Capo Poe MD Active OMEPRAZOLE 20 MG CPDR 1 tablet by mouth daily OMEPRAZOLE 81403058149 Active Capo Poe MD Active WELLBUTRIN SR 150 MG ORAL [id number] 1 po BID BUPROPION HCL 23425447978 No Longer Active Capo Poe MD Active MIRALAX PACK 1 po qd PRN Constipation POLYETHYLENE GLYCOL 3350 65191839187 Active Capo Poe MD Active DULERA 100-5 MCG/ACT AERO 2 puffs BID MOMETASONE FURO- FORMOTEROL FUM 46759454194 Active Capo Poe MD Active ZOLOFT 100 MG TABS 1 po daily SERTRALINE HCL 23631130249 No Longer Active Zoran Arzola MD Active FERROUS SULFATE 325 (65 FE) MG TABS 1 tablet by mouth daily FERROUS SULFATE 59133002817 No Longer Active Capo Poe MD Active HYDROCODONE-ACETAMINOPHEN 7.5-300 MG TABS take one every six hours HYDROCODONE-ACETAMINOPHEN 32813740313 No Longer Active Capo Poe MD Active TRIAMCINOLONE ACETONIDE 0.1 % OINT Apply to affected areas TID for up to 2 weeks TRIAMCINOLONE ACETONIDE 78536972089 No Longer Active Joe Vargas RN Active FERROUS SULFATE 325 (65 FE) MG TABS Take one by mouth daily FERROUS SULFATE 75498781935 No Longer Active Capo Poe MD Active TRIAMCINOLONE ACETONIDE 0.1 % OINT Apply to affected areas TID for up to 2 weeks TRIAMCINOLONE ACETONIDE 93214317732 No Longer Active Capo Poe MD Active ADULT ASPIRIN LOW STRENGTH 81 MG TBDP qd ASPIRIN 21047290526 Active Zoran Arzola MD Active ALEVE 220 MG TAB prn NAPROXEN SODIUM 25371044684 Active Capo Poe MD Active MACROBID 100 MG CAP 1 cap by mouth twice daily NITROFURANTOIN MONOHYD MACRO 02403923096 No Longer Active Donaarmando Becker Active AZITHROMYCIN 250 MG TABS 2 po qd x 1 day, then 1 po qd x 4 days AZITHROMYCIN 40859629847 No Longer Active Capo Poe MD Active FISH OIL 500 MG CAPS by mouth twice a day OMEGA-3 FATTY ACIDS 12240980986 Active Capo Poe MD Active FLAXSEED OIL 1000 MG CAPS Take two by mouth daily FLAXSEED (LINSEED) 87636846076 Active Zoran Arzola MD Active RED YEAST RICE 600 MG CAPS Take two by mouth daily RED YEAST RICE EXTRACT 97271168106 Active Zoran Arzola MD Active ICAPS MV TABS 2 po daily MULTIPLE VITAMINS-MINERALS 40890002696 Active Jam Arnold DO Active MACROBID 100 MG CAP 1 cap by mouth twice daily MACROBID 100 MG CAP 9461439 NITROFURANTOIN MONOHYD MACRO Inactive FERROUS SULFATE 325 (65 FE) MG TABS Take one by mouth daily FERROUS SULFATE 325 (65 FE) MG TABS 428696 FERROUS SULFATE Inactive HYDROCODONE-ACETAMINOPHEN 7.5-300 MG TABS take one every six hours HYDROCODONE-ACETAMINOPHEN 7.5-300 MG TABS 561716 HYDROCODONE- ACETAMINOPHEN Inactive FERROUS SULFATE 325 (65 FE) MG TABS 1 tablet by mouth daily FERROUS SULFATE 325 (65 FE) MG TABS 750671 FERROUS SULFATE Inactive ZOLOFT 100 MG TABS 1 po daily ZOLOFT 100 MG TABS 549420 SERTRALINE HCL Inactive SERTRALINE HCL 100 MG ORAL TABS take 1 tab daily SERTRALINE HCL 100 MG ORAL TABS 963328 SERTRALINE HCL Inactive TRAMADOL HCL 50 MG TABS 1-2 tablets every 6 hours as needed for pain TRAMADOL HCL 50 MG TABS 556847 TRAMADOL HCL Inactive NICOTINE 14 MG/24HR TRANS PT24 Apply/Change q 24hr NICOTINE 14 MG/24HR TRANS PT24 751304 NICOTINE Inactive FLOMAX 0.4 MG CAPS Take one by mouth daily FLOMAX 0.4 MG CAPS 582264 TAMSULOSIN HCL Inactive LORTAB 7.5-325 MG ORAL TABS 1 po q 6 hr prn pain LORTAB 7.5- 325 MG ORAL TABS 980070 HYDROCODONE-ACETAMINOPHEN Inactive VIIBRYD STARTER PACK 10 & 20 MG ORAL KIT 1 po qd as directed 2015 VIIBRYD STARTER PACK 10 & 20 MG ORAL KIT VILAZODONE HCL Inactive LISINOPRIL 10 MG TABS 1 tablet by mouth daily LISINOPRIL 10 MG TABS 260059 LISINOPRIL Inactive MULTIVITAMINS CAPS Take one by mouth daily MULTIVITAMINS CAPS MULTIPLE VITAMIN Inactive AZITHROMYCIN 250 MG TABS 2 po qd x 1 day, then 1 po qd x 4 days AZITHROMYCIN 250 MG TABS 5741856 AZITHROMYCIN Inactive TRIAMCINOLONE ACETONIDE 0.1 % OINT Apply to affected areas TID for up to 2 weeks TRIAMCINOLONE ACETONIDE 0.1 % OINT 1992835 TRIAMCINOLONE ACETONIDE Inactive TRIAMCINOLONE ACETONIDE 0.1 % OINT Apply to affected areas TID for up to 2 weeks TRIAMCINOLONE ACETONIDE 0.1 % OINT 1944489 TRIAMCINOLONE ACETONIDE Inactive PREDNISONE 20 MG ORAL TABS 2 po qd x 5 days PREDNISONE 20 MG ORAL TABS 833134 PREDNISONE Inactive Advance Directives Directive Description Start [...] ... - Chemistry sodium, serum 141 mmol/L 357-679 5928/01/27 carbon dioxide, venous blood 29.7 mmol/L 21.0-32.0 [...] % 11.0-15.0 platelet count 214 THOUSAND/UL 10*3/mm3 190-819 8946/03/31 mean platelet volume 8.4 fL 7.5-12.5 Encounters Code Encounter Date Provider Facility CPT-62924 Level 3 Est. Patient 11:31:49 [facility] Patient 09:44:06 CDT Capo Poe MD [facility] CPT-60771 Level 4 Est. Patient 09:26:11 HAND II THERMAL [employer]TER Capo Poe MD [facility] CPT-02028 Level 4 Est. Patient 08:53:08 CDT Capo Poe MD [facility] CPT-58618 Level 4 Est. Patient 10:22:57 CDT Capo Poe MD [facility] CPT-29238 Level 4 Est. Patient 13:44:30 CDT Capo Poe MD [facility] CPT-16258 Level 3 Est. Patient 14:59:32 HAND II THERMAL CUTTER Capo Poe MD [facility] CPT-75283 Level 4 Est. Patient 10:46:15 HAND II THERMAL CUTTER Capo Poe MD [facility] CPT-79151 Level 3 Est. Patient 11:00:53 CDT Capo Poe MD [facility] CPT-26695 Level 3 Est. Patient 09:39:35 CDT Capo Poe MD [facility] CPT-91033 Level 3 Est. Patient 09:27:01 CDT Capo Poe MD [facility] CPT-63865 Level 3 Est. Patient 18:37:08 CDT Zoran Arzola MD [facility] CPT-66997 Level 3 Est. Patient 15:00:28 CDT Capo Poe MD [facility] CPT-41790 Level 3 Est. Patient 08:20:19 CDT Zoran Arzola MD [facility] CPT-76372 Level 3 Est. Patient 09:22:21 CDT Capo Poe MD [facility] CPT-69196 Level 4 Est. Patient 10:21:30 HAND II THERMAL CUTTER Capo Poe MD [facility] CPT-08887 Level 3 Est. Patient 17:08:51 HAND II THERMAL CUTTER Zoran Arzola MD [facility] CPT-70526 Level 4 Est. Patient 09:44:42 CDT Capo Poe MD [facility] CPT-41531 Level 4 Est. Patient 10:39:29 CDT Capo Poe MD [facility] CPT-21451 Level 3 Est. Patient 17:45:23 CDT Zoran Arzola MD [facility] CPT-84000 Level 4 Est. Patient 08:50:44 CDT Capo Poe MD [facility] CPT-91185 Level 3 Est. Patient 10:39:51 HAND II THERMAL CUTTER Capo Poe MD [facility] CPT-89932 Level 4 Est. Patient 09:44:24 HAND II THERMAL CUTTER Capo Poe MD [facility] CPT-56044 Level 3 Est. Patient 14:48:42 HAND II THERMAL CUTTER Zoran Arzola MD [facility] CPT-72886 Level 4 Est. Patient 10:24:02 CDT Capo Poe MD [facility] CPT-59987 Level 3 Est. Patient 15:42:00 CDT Maya Kem DUKES [facility] CPT-17586 Level 4 Est. Patient 13:34:15 CDT Capo Poe MD [facility] CPT-80639 Level 3 Est. Patient 15:32:10 HAND II THERMAL C[employer]TER Zoran Arzola MD [facility] CPT-79109 Level 3 New Patient 17:17:19 HAND II THERMAL CUTTER Zoran Arzola MD [facility] CPT-28050 Level 4 Est. Patient 10:25:01 HAND II THERMAL CUTTER Capo Poe MD [facility] CPT-86005 Level 3 Est. Patient 10:10:42 CDT Zoran Arzola MD [facility] CPT-87625 Level 3 Est. Patient 22:30:02 CDT Zoran Arzola MD [facility] CPT-97289 Level 4 Est. Patient 09:54:20 CDT Capo Poe MD [facility] CPT-77422 Level 3 Est. Patient 10:48:30 CDT Capo Poe MD [facility] CPT-33940 Level 3 Est. Patient 11:24:45 CDT Capo Poe MD [facility] CPT-42349 Level 3 Est. Patient 15:23:48 HAND II THERMAL CUTTER Capo Poe MD [facility] CPT-99856 Level 3 Est. Patient 15:10:03 HAND II THERMAL CUTTER Capo Poe MD [facility] CPT-57542 Level 3 Est. Patient 16:18:40 CDT Zoran Arzola MD [facility] Procedures Code Procedure Name Date Entry Date Standard Description CPT-66898 Chest 2V Frontal and Lat - XRAY USE ONLY 11:51:24 CDT CPT-89075 Venipuncture Draw Fee 11:31:49 CDT CPT-37935 Hemoccult IFOBT - LAB USE ONLY 14:11:43 HAND II [employer]ERMAL [employer]TER CPT-34302 TPSA - LAB USE ONLY 10:37:52 HAND II THERMAL CUTTER CPT-94986 TSH - LAB USE ONLY 10:37:51 HAND II THERMAL CUTTER CPT-05361 CMP - LAB USE ONLY 10:37:51 HAND II THERMAL C[employer]TER CPT-51741 CBC with Diff - LAB USE ONLY 10:37:51 HAND II THERMAL C[employer]TER CPT-25711 Venipuncture Draw Fee 10:37:51 HAND II [employer]ERMAL [employer] CPT-000 Give Pneumovax 10:39:30 CDT CPT-75693 Venipuncture Draw Fee 09:32:34 CDT CPT-G0438 Initial Annual Wellness Exam 10:24:35 CDT CPT-85634 Venipuncture Draw Fee 09:46:29 CDT CPT-12650 Venipuncture Draw Fee 14:30:06 CDT CPT-26100 Venipuncture Draw Fee 10:58:22 CDT CPT-84802 Abd single AP View 08:32:00 CDT CPT-09816 Postop F/U Visit 21:13:08 CDT CPT-47663 Abd single AP View 15:50:24 CDT CPT-06411 Cystoscopy W/rem FB 15:21:28 CDT CPT-43799 Abd single AP View 14:06:45 CDT CPT-42085 Postop F/U Visit 09:48:32 CDT CPT-85658 Abd single AP View 13:58:26 CDT CPT-85708 Hip comp min 2V 10:27:18 HAND II [employer] CPT-80424 Urine Dip (Floor Use Only) 13:41:01 HAND II [employer]ERM[employer] CPT-79143 Postop F/U Visit 11:17:48 CDT CPT-LR Lesion Removal 11:50:22 CDT CPT-OV Office Visit 11:50:22 CDT CPT-67466 Pneumovax 23 10:55:48 CDT CPT-04242 Administration single or combination vaccine inc oral 10 :55:48 CDT CPT-Cryo Cryotherapy 11:18:11 CDT CPT-OV Office Visit 11:18:11 CDT CPT-04999 LS spine AP and Lat 09:05:22 CDT CPT-67136 Bladder Scan 15:42:00 CDT CPT-28196 Cystoscopy 15:42:00 CDT CPT-OV Office Visit 16:37:19 HAND II [employer]ERM[employer] CPT-78108 Bladder Scan 15:32:10 HAND II THERMAL C[employer]TER CPT-29054 Cystoscopy 15:32:10 HAND II THERMAL CUTTER CPT-92711 Abd single AP View 14:05:59 HAND II THERMAL C[employer]TER CPT-69255 Pill cam small bowel 09:48:39 HAND II THERMAL C[employer]TER CPT-06732 Urine Dip (Floor Use Only) 17:17:19 HAND II THERMAL C[employer]TER CPT-65008 Bladder Scan 17:17:19 HAND II THERMAL C[employer]TER CPT-OV Office Visit 11:50:26 HAND II THERMAL C[employer]TER CPT-51970 Bladder Scan 10:10:42 CDT CPT-40894 Venipuncture Draw Fee 09:14:04 CDT CPT-62117 Chest 2V Frontal and Lat 10:10:49 CDT CPT-60748 LS spine comp w obliq 11:50:11 CDT CPT-52833 Venipuncture Draw Fee 08:52:57 HAND II THERMAL C[employer]TER CPT-75221 Cystoscopy W/rem FB 18:37:28 CDT CPT-37802 Abd single AP View 16:18:40 CDT CPT-97856 Abd compl w upright 17:30:59 CDT
--- OUTSIDE RECORDS SUMMARY | 2016-11-22 17:02 | XMS REPORT | Clinical Summary ---
Author Author Admin, [employer] Address Unknown Phone Unavailable Allergies, Adverse Reactions, [...] essential hypertension HEALTH SCREENING V70.0 Resolved Faisal Nayg MD Routine general medical examination at a [...] Capo Poe MD BLADDER CALCULUS ICD-594.1 Inactive Cpao Poe MD HEMATURIA ICD-599.70 Inactive Capo Poe [...] Poe MD Urethral calculus ICD-594.2 Inactive Capo oPe MD Chest pain ICD-786.50 Inactive Capo Poe [...] 1 tablet by mouth daily CITALOPRAM HYDROBROMIDE 59730485429 Active Capo Poe MD Active CLARITIN 5 MG ORAL CHEW 1 tab po q day LORATADINE 45683264879 Active Felisa Daphney TEIXEIRA Active VIIBRYD STARTER PACK 10 & 20 MG ORAL KIT 1 po qd as directed 2015 VILAZODONE HCL [id number] No Longer Active Felisa TEIXEIRA Active HYDROXYZINE HCL 25 MG TAB 1 po qHS PRN Insomnia HYDROXYZINE HCL 03893484705 Active Capo Poe MD Active LISINOPRIL 10 MG TABS 1 tablet by mouth daily LISINOPRIL 82933342863 Active Capo Poe MD Active LORTAB 7.5-325 MG ORAL TABS 1 po q 6 hr prn pain HYDROCODONE- ACETAMINOPHEN 24841193587 No Longer Active Capo Poe MD Active FLOMAX 0.4 MG CAPS Take one by mouth daily TAMSULOSIN HCL 27780123058 No Longer Active Capo Poe MD Active TRIAMCINOLONE ACETONIDE 0.1 % CREA Apply to affected areas TID for up to 2 weeks TRIAMCINOLONE ACETONIDE 15717496402 Active Capo Poe MD Active NICOTINE 14 MG/24HR TRANS PT24 Apply/Change q 24hr NICOTINE 96611888152 No Longer Active Capo Poe MD Active TRAMADOL HCL 50 MG TABS 1-2 tablets every 6 hours as needed for pain TRAMADOL HCL 37098316646 No Longer Active Capo Poe MD Active SERTRALINE HCL 100 MG ORAL TABS take 1 tab daily SERTRALINE HCL 91282955112 No Longer Active Capo Poe MD Active LISINOPRIL-HYDROCHLOROTHIAZIDE 10-12.5 MG TABS 0.5 tab by mouth daily LISINOPRIL-HYDROCHLOROTHIAZIDE 96563207155 No Longer Active Capo Poe MD Active OMEPRAZOLE 20 MG CPDR 1 tablet by mouth daily OMEPRAZOLE 15633269974 Active Capo Poe MD Active WELLBUTRIN SR 150 MG ORAL [id number] 1 po BID BUPROPION HCL 28973749872 No Longer Active Capo Poe MD Active MIRALAX PACK 1 po qd PRN Constipation POLYETHYLENE GLYCOL 3350 00203116851 Active Capo Poe MD Active DULERA 100-5 MCG/ACT AERO 2 puffs BID MOMETASONE FURO- FORMOTEROL FUM 97422894291 Active Capo Poe MD Active ZOLOFT 100 MG TABS 1 po daily SERTRALINE HCL 77343305034 No Longer Active Zoran Arzola MD Active FERROUS SULFATE 325 (65 FE) MG TABS 1 tablet by mouth daily FERROUS SULFATE 28674593732 No Longer Active Capo Poe MD Active HYDROCODONE-ACETAMINOPHEN 7.5-300 MG TABS take one every six hours HYDROCODONE-ACETAMINOPHEN 24616279425 No Longer Active Capo Poe MD Active TRIAMCINOLONE ACETONIDE 0.1 % OINT Apply to affected areas TID for up to 2 weeks TRIAMCINOLONE ACETONIDE 04916888616 No Longer Active Joe Vargas RN Active FERROUS SULFATE 325 (65 FE) MG TABS Take one by mouth daily FERROUS SULFATE 35686465639 No Longer Active Capo Poe MD Active TRIAMCINOLONE ACETONIDE 0.1 % OINT Apply to affected areas TID for up to 2 weeks TRIAMCINOLONE ACETONIDE 11394008343 No Longer Active Capo Poe MD Active ADULT ASPIRIN LOW STRENGTH 81 MG TBDP qd ASPIRIN 58771611848 Active Zoran Arzola MD Active ALEVE 220 MG TAB prn NAPROXEN SODIUM 73722784630 Active Capo Poe MD Active MACROBID 100 MG CAP 1 cap by mouth twice daily NITROFURANTOIN MONOHYD MACRO 81839703989 No Longer Active Dona Becker Active AZITHROMYCIN 250 MG TABS 2 po qd x 1 day, then 1 po qd x 4 days AZITHROMYCIN 16283655920 No Longer Active Capo Poe MD Active FISH OIL 500 MG CAPS by mouth twice a day OMEGA-3 FATTY ACIDS 62442284599 Active Capo Poe MD Active FLAXSEED OIL 1000 MG CAPS Take two by mouth daily FLAXSEED (LINSEED) 24564389574 Active Zoran Arzola MD Active RED YEAST RICE 600 MG CAPS Take two by mouth daily RED YEAST RICE EXTRACT 16872722476 Active Zoran Arzola MD Active MULTIVITAMINS CAPS Take one by mouth daily MULTIPLE VITAMIN 48721353153 Elza Arzola MD Active ICAPS MV TABS 2 po daily MULTIPLE VITAMINS-MINERALS 09631685747 Active Jam Arnold DO Active MACROBID 100 MG CAP 1 cap by mouth twice daily MACROBID 100 MG CAP 4350772 NITROFURANTOIN MONOHYD MACRO Inactive FERROUS SULFATE 325 (65 FE) MG TABS Take one by mouth daily FERROUS SULFATE 325 (65 FE) MG TABS 876174 FERROUS SULFATE Inactive HYDROCODONE-ACETAMINOPHEN 7.5-300 MG TABS take one every six hours HYDROCODONE-ACETAMINOPHEN 7.5-300 MG TABS 940925 HYDROCODONE- ACETAMINOPHEN Inactive FERROUS SULFATE 325 (65 FE) MG TABS 1 tablet by mouth daily FERROUS SULFATE 325 (65 FE) MG TABS 055975 FERROUS SULFATE Inactive ZOLOFT 100 MG TABS 1 po daily ZOLOFT 100 MG TABS 975396 SERTRALINE HCL Inactive SERTRALINE HCL 100 MG ORAL TABS take 1 tab daily SERTRALINE HCL 100 MG ORAL TABS 324526 SERTRALINE HCL Inactive TRAMADOL HCL 50 MG TABS 1-2 tablets every 6 hours as needed for pain TRAMADOL HCL 50 MG TABS 627831 TRAMADOL HCL Inactive NICOTINE 14 MG/24HR TRANS PT24 Apply/Change q 24hr NICOTINE 14 MG/24HR TRANS PT24 736379 NICOTINE Inactive FLOMAX 0.4 MG CAPS Take one by mouth daily FLOMAX 0.4 MG CAPS 839434 TAMSULOSIN HCL Inactive LORTAB 7.5-325 MG ORAL TABS 1 po q 6 hr prn pain LORTAB 7.5- 325 MG ORAL TABS 620956 HYDROCODONE-ACETAMINOPHEN Inactive VIIBRYD STARTER PACK 10 & 20 MG ORAL KIT 1 po qd as directed 2015 VIIBRYD STARTER PACK 10 & 20 MG ORAL KIT VILAZODONE HCL Inactive AZITHROMYCIN 250 MG TABS 2 po qd x 1 day, then 1 po qd x 4 days AZITHROMYCIN 250 MG TABS 1646381 AZITHROMYCIN Inactive TRIAMCINOLONE ACETONIDE 0.1 % OINT Apply to affected areas TID for up to 2 weeks TRIAMCINOLONE ACETONIDE 0.1 % OINT 1151597 TRIAMCINOLONE ACETONIDE Inactive TRIAMCINOLONE ACETONIDE 0.1 % OINT Apply to affected areas TID for up to 2 weeks TRIAMCINOLONE ACETONIDE 0.1 % OINT 0134075 TRIAMCINOLONE ACETONIDE Inactive Advance Directives Directive Description [...] ... - Chemistry sodium, serum 141 mmol/L 821-122 8546/01/27 carbon dioxide, venous blood 29.7 mmol/L 21.0-32.0 [...] ... - Chemistry sodium, serum 138 mmol/L 856-777 7951/03/18 carbon dioxide, venous blood 25.5 mmol/L 21.0-32.0 potassium, serum 4.6 mmol/L 3.5-5.2 chloride, serum 101 mmol/L 98-107 blood glucose 129 mg/dL 65-110 urea nitrogen, blood 20 mg/dL 7-18 creatinine, serum 1.87 mg/dL 0.55-1.30 alanine aminotransferase (SGPT), serum 26 U/L 12-78 aspartate aminotransferase (SGOT), serum 20 U/L 15-37 calcium, serum 8.8 mg/dL 8.5-10.1 bilirubin, serum, total 0.40 mg/dL 0.00-1.00 cholesterol, serum 251 mg/dL 374-106 2251/03/18 triglyceride, serum, fasting 135 mg/dL 30-200 HDL [...] 0-19 Encounters Code Encounter Date Provider Facility CPT-76049 Level 4 Est. Patient 09:26:11 FLYER REPAIRER Capo Poe MD [facility] CPT-13485 Level 4 Est. Patient 08:53:08 CDT Capo Poe MD [facility] CPT-63839 Level 4 Est. Patient 10:22:57 CDT Capo Poe MD [facility] CPT-91542 Level 4 Est. Patient 13:44:30 CDT Capo Poe MD [facility] CPT-60348 Level 3 Est. Patient 14:59:32 FLYER REPAIRER Capo Poe MD [facility] CPT-56796 Level 4 Est. Patient 10:46:15 FLYER REPAIRER Capo Poe MD [facility] CPT-26075 Level 3 Est. Patient 11:00:53 CDT Capo Poe MD [facility] CPT-25185 Level 3 Est. Patient 09:39:35 CDT Capo Poe MD [facility] CPT-91949 Level 3 Est. Patient 09:27:01 CDT Capo Poe MD [facility] CPT-11613 Level 3 Est. Patient 18:37:08 CDT Zoran Arzola MD [facility] CPT-92610 Level 3 Est. Patient 15:00:28 CDT Capo Poe MD [facility] CPT-52217 Level 3 Est. Patient 08:20:19 CDT Zoran Arzola MD [facility] CPT-65666 Level 3 Est. Patient 09:22:21 CDT Capo Poe MD [facility] CPT-67249 Level 4 Est. Patient 10:21:30 FLYER REPAIRER Capo Poe MD [facility] CPT-32850 Level 3 Est. Patient 17:08:51 FLYER REPAIRER Zoran Arzola MD [facility] CPT-18245 Level 4 Est. Patient 09:44:42 CDT Capo Poe MD [facility] CPT-63380 Level 4 Est. Patient 10:39:29 CDT Capo Poe MD [facility] CPT-24400 Level 3 Est. Patient 17:45:23 CDT Zoran Arzola MD [facility] CPT-39302 Level 4 Est. Patient 08:50:44 CDT Capo Poe MD [facility] CPT-08652 Level 3 Est. Patient 10:39:51 FLYER REPAIRER Capo Poe MD [facility] CPT-06848 Level 4 Est. Patient 09:44:24 FLYER REPAIRER Capo Poe MD [facility] CPT-78880 Level 3 Est. Patient 14:48:42 FLYER REPAIRER Zoran Arzola MD [facility] CPT-58042 Level 4 Est. Patient 10:24:02 CDT Capo Poe MD [facility] CPT-54727 Level 3 Est. Patient 15:42:00 CDT Maya DUKES [facility] CPT-39020 Level 4 Est. Patient 13:34:15 CDT Capo Poe MD [facility] CPT-92739 Level 3 Est. Patient 15:32:10 FLYER REPAIRER Zoran Arzola MD [facility] CPT-02337 Level 3 New Patient 17:17:19 FLYER REPAIRER Zoran Arzola MD [facility] CPT-98164 Level 4 Est. Patient 10:25:01 FLYER REPAIRER Capo Poe MD [facility] CPT-67603 Level 3 Est. Patient 10:10:42 CDT Zoran Arzola MD [facility] CPT-62689 Level 3 Est. Patient 22:30:02 CDT Zoran Arzola MD [facility] CPT-40386 Level 4 Est. Patient 09:54:20 CDT Capo Poe MD [facility] CPT-01345 Level 3 Est. Patient 10:48:30 CDT Capo Poe MD [facility] CPT-41498 Level 3 Est. Patient 11:24:45 CDT Capo Poe MD [facility] CPT-04313 Level 3 Est. Patient 15:23:48 FLYER REPAIRER Capo Poe MD [facility] CPT-85035 Level 3 Est. Patient 15:10:03 FLYER REPAIRER Capo Poe MD [facility] CPT-99441 Level 3 Est. Patient 16:18:40 CDT Zoran Arzola MD [facility] Procedures Code Procedure Name Date Entry Date Standard Description CPT-17222 TPSA - LAB USE ONLY 10:37:52 FLYER REPAIRER CPT-62761 TSH - LAB USE ONLY 10:37:51 FLYER REPAIRER CPT-39236 CMP - LAB USE ONLY 10:37:51 FLYER REPAIRER CPT-32319 CBC with Diff - LAB USE ONLY 10:37:51 FLYER REPAIRER CPT-64773 Venipuncture Draw Fee 10:37:51 FLYER REPAIRER CPT-000 Give Pneumovax 10:39:30 CDT CPT-57323 Venipuncture Draw Fee 09:32:34 CDT CPT-G0438 Initial Annual Wellness Exam 10:24:35 CDT CPT-99963 Venipuncture Draw Fee 09:46:29 CDT CPT-25057 Venipuncture Draw Fee 14:30:06 CDT CPT-97014 Venipuncture Draw Fee 10:58:22 CDT CPT-62754 Abd single AP View 08:32:00 CDT CPT-21542 Postop F/U Visit 21:13:08 CDT CPT-96263 Abd single AP View 15:50:24 CDT CPT-42294 Cystoscopy W/rem FB 15:21:28 CDT CPT-59048 Abd single AP View 14:06:45 CDT CPT-32561 Postop F/U Visit 09:48:32 CDT CPT-38737 Abd single AP View 13:58:26 CDT CPT-35360 Hip comp min 2V 10:27:18 FLYER REPAIRER CPT-77897 Urine Dip (Floor Use Only) 13:41:01 FLYER REPAIRER CPT-26481 Postop F/U Visit 11:17:48 CDT CPT-LR Lesion Removal 11:50:22 CDT CPT-OV Office Visit 11:50:22 CDT CPT-18985 Pneumovax 23 10:55:48 CDT CPT-32217 Administration single or combination vaccine inc oral 10 :55:48 CDT CPT-Cryo Cryotherapy 11:18:11 CDT CPT-OV Office Visit 11:18:11 CDT CPT-04840 LS spine AP and Lat 09:05:22 CDT CPT-45297 Bladder Scan 15:42:00 CDT CPT-69372 Cystoscopy 15:42:00 CDT CPT-OV Office Visit 16:37:19 FLYER REPAIRER CPT-53836 Bladder Scan 15:32:10 FLYER REPAIRER CPT-69197 Cystoscopy 15:32:10 FLYER REPAIRER CPT-98929 Abd single AP View 14:05:59 FLYER REPAIRER CPT-04773 Pill cam small bowel 09:48:39 FLYER REPAIRER CPT-93880 Urine Dip (Floor Use Only) 17:17:19 FLYER REPAIRER CPT-71909 Bladder Scan 17:17:19 FLYER REPAIRER CPT-OV Office Visit 11:50:26 FLYER REPAIRER CPT-81287 Bladder Scan 10:10:42 CDT CPT-48289 Venipuncture Draw Fee 09:14:04 CDT CPT-08949 Chest 2V Frontal and Lat 10:10:49 CDT CPT-23855 LS spine comp w obliq 11:50:11 CDT CPT-67158 Venipuncture Draw Fee 08:52:57 FLYER REPAIRER CPT-90146 Cystoscopy W/rem FB 18:37:28 CDT CPT-93291 Abd single AP View 16:18:40 CDT CPT-31087 Abd compl w upright 17:30:59 CDT
[2016-11-22] MEDS ORDERED: PROPOFOL INJECTION 50 ML IV ONE (17:03)
--- OUTSIDE RECORDS SUMMARY | 2016-11-22 17:03 | XMS REPORT | Clinical Summary ---
Author Author Admin, QIE Organization [employer] Address Unknown Phone Unavailable Allergies, Adverse Reactions, [...] Hematuria, unspecified Sciatica, right 724.3 Resolved Capo oPe MD Sciatica Renal Calculus 592.9 Resolved Capo [...] collapse Iron deficiency 280.9 Active Jasmin Dixon [facility] Iron deficiency anemia, unspecified [...] 1 tab po twice daily FERROUS SULFATE 78227702012 Active Jasmin TEIXEIRA Active D ORAL TABS 2000 iu weekly D ORAL TABS Active Capo Poe MD Active CITALOPRAM HYDROBROMIDE 20 MG TABS 1 tablet by mouth daily CITALOPRAM HYDROBROMIDE 31598420769 Active Capo Poe MD Active CLARITIN 5 MG ORAL CHEW 1 tab po q day LORATADINE 50348067130 Active Felisa TEIXEIRA Active VIIBRYD STARTER PACK 10 & 20 MG ORAL KIT 1 po qd as directed 2015 VILAZODONE HCL 54895657441 No Longer Active Felisa TEIXEIRA Active HYDROXYZINE HCL 25 MG TAB 1 po qHS PRN Insomnia HYDROXYZINE HCL 21228693821 Active Capo Poe MD Active LISINOPRIL 10 MG TABS 1 tablet by mouth daily LISINOPRIL 38983153695 Active Capo Poe MD Active LORTAB 7.5-325 MG ORAL TABS 1 po q 6 hr prn pain HYDROCODONE- ACETAMINOPHEN 56094675905 No Longer Active Capo oPe MD Active FLOMAX 0.4 MG CAPS Take one by mouth daily TAMSULOSIN HCL 15160122769 No Longer Active Capo Poe MD Active TRIAMCINOLONE ACETONIDE 0.1 % CREA Apply to affected areas TID for up to 2 weeks TRIAMCINOLONE ACETONIDE 13897849609 Active Capo Poe MD Active NICOTINE 14 MG/24HR TRANS PT24 Apply/Change q 24hr NICOTINE 23137401892 No Longer Active Capo Poe MD Active TRAMADOL HCL 50 MG TABS 1-2 tablets every 6 hours as needed for pain TRAMADOL HCL 94528639927 No Longer Active Capo Poe MD Active SERTRALINE HCL 100 MG ORAL TABS take 1 tab daily SERTRALINE HCL 05145037172 No Longer Active Capo Poe MD Active LISINOPRIL-HYDROCHLOROTHIAZIDE 10-12.5 MG TABS 0.5 tab by mouth daily LISINOPRIL-HYDROCHLOROTHIAZIDE 23047098761 No Longer Active Capo Poe MD Active OMEPRAZOLE 20 MG CPDR 1 tablet by mouth daily OMEPRAZOLE 85454702468 Active Capo Poe MD Active WELLBUTRIN SR 150 MG ORAL [id number] 1 po BID BUPROPION HCL 23130880435 No Longer Active Capo Poe MD Active MIRALAX PACK 1 po qd PRN Constipation POLYETHYLENE GLYCOL 3350 64775786490 Active Capo Poe MD Active DULERA 100-5 MCG/ACT AERO 2 puffs BID MOMETASONE FURO- FORMOTEROL FUM 19299063830 Active Capo Poe MD Active ZOLOFT 100 MG TABS 1 po daily SERTRALINE HCL 51722947180 No Longer Active Zoran Arzola MD Active FERROUS SULFATE 325 (65 FE) MG TABS 1 tablet by mouth daily FERROUS SULFATE 06020905778 No Longer Active Capo Poe MD Active HYDROCODONE-ACETAMINOPHEN 7.5-300 MG TABS take one every six hours HYDROCODONE-ACETAMINOPHEN 03868669136 No Longer Active Capo Poe MD Active TRIAMCINOLONE ACETONIDE 0.1 % OINT Apply to affected areas TID for up to 2 weeks TRIAMCINOLONE ACETONIDE 97016778253 No Longer Active Joe Vargas RN Active FERROUS SULFATE 325 (65 FE) MG TABS Take one by mouth daily FERROUS SULFATE 68273028967 No Longer Active Capo Poe MD Active TRIAMCINOLONE ACETONIDE 0.1 % OINT Apply to affected areas TID for up to 2 weeks TRIAMCINOLONE ACETONIDE 91343574638 No Longer Active Capo Poe MD Active ADULT ASPIRIN LOW STRENGTH 81 MG TBDP qd ASPIRIN 96813460193 Active Zoran Arzola MD Active ALEVE 220 MG TAB prn NAPROXEN SODIUM 12930139084 Active Capo Poe MD Active MACROBID 100 MG CAP 1 cap by mouth twice daily NITROFURANTOIN MONOHYD MACRO 21901975289 No Longer Active Dona Becker Active AZITHROMYCIN 250 MG TABS 2 po qd x 1 day, then 1 po qd x 4 days AZITHROMYCIN 99303361300 No Longer Active Capo Poe MD Active FISH OIL 500 MG CAPS by mouth twice a day OMEGA-3 FATTY ACIDS 92994462923 Active Capo Poe MD Active FLAXSEED OIL 1000 MG CAPS Take two by mouth daily FLAXSEED (LINSEED) 57376272912 Active Zoran Arzola MD Active RED YEAST RICE 600 MG CAPS Take two by mouth daily RED YEAST RICE EXTRACT 14014471305 Active Zoran Arzola MD Active MULTIVITAMINS CAPS Take one by mouth daily MULTIPLE VITAMIN 26586254182 Active Zoran Arzola MD Active ICAPS MV TABS 2 po daily MULTIPLE VITAMINS-MINERALS 01824570564 Active Jam Arnold DO Active MACROBID 100 MG CAP 1 cap by mouth twice daily MACROBID 100 MG CAP 1134900 NITROFURANTOIN MONOHYD MACRO Inactive FERROUS SULFATE 325 (65 FE) MG TABS Take one by mouth daily FERROUS SULFATE 325 (65 FE) MG TABS 650216 FERROUS SULFATE Inactive HYDROCODONE-ACETAMINOPHEN 7.5-300 MG TABS take one every six hours HYDROCODONE-ACETAMINOPHEN 7.5-300 MG TABS 351952 HYDROCODONE- ACETAMINOPHEN Inactive FERROUS SULFATE 325 (65 FE) MG TABS 1 tablet by mouth daily FERROUS SULFATE 325 (65 FE) MG TABS 387859 FERROUS SULFATE Inactive ZOLOFT 100 MG TABS 1 po daily ZOLOFT 100 MG TABS 862015 SERTRALINE HCL Inactive SERTRALINE HCL 100 MG ORAL TABS take 1 tab daily SERTRALINE HCL 100 MG ORAL TABS 878107 SERTRALINE HCL Inactive TRAMADOL HCL 50 MG TABS 1-2 tablets every 6 hours as needed for pain TRAMADOL HCL 50 MG TABS 699949 TRAMADOL HCL Inactive NICOTINE 14 MG/24HR TRANS PT24 Apply/Change q 24hr NICOTINE 14 MG/24HR TRANS PT24 316467 NICOTINE Inactive FLOMAX 0.4 MG CAPS Take one by mouth daily FLOMAX 0.4 MG CAPS 835119 TAMSULOSIN HCL Inactive LORTAB 7.5-325 MG ORAL TABS 1 po q 6 hr prn pain LORTAB 7.5- 325 MG ORAL TABS 995065 HYDROCODONE-ACETAMINOPHEN Inactive VIIBRYD STARTER PACK 10 & 20 MG ORAL KIT 1 po qd as directed 2015 VIIBRYD STARTER PACK 10 & 20 MG ORAL KIT VILAZODONE HCL Inactive AZITHROMYCIN 250 MG TABS 2 po qd x 1 day, then 1 po qd x 4 days AZITHROMYCIN 250 MG TABS 2243230 AZITHROMYCIN Inactive TRIAMCINOLONE ACETONIDE 0.1 % OINT Apply to affected areas TID for up to 2 weeks TRIAMCINOLONE ACETONIDE 0.1 % OINT 8539456 TRIAMCINOLONE ACETONIDE Inactive TRIAMCINOLONE ACETONIDE 0.1 % OINT Apply to affected areas TID for up to 2 weeks TRIAMCINOLONE ACETONIDE 0.1 % OINT 5783156 TRIAMCINOLONE ACETONIDE Inactive Advance Directives Directive Description [...] ... - Chemistry sodium, serum 141 mmol/L 660-086 0560/01/27 carbon dioxide, venous blood 29.7 mmol/L 21.0-32.0 [...] ... - Chemistry sodium, serum 138 mmol/L 293-484 0935/03/18 carbon dioxide, venous blood 25.5 mmol/L 21.0-32.0 potassium, serum 4.6 mmol/L 3.5-5.2 chloride, serum 101 mmol/L 98-107 blood glucose 129 mg/dL 65-110 urea nitrogen, blood 20 mg/dL 7-18 creatinine, serum 1.87 mg/dL 0.55-1.30 alanine aminotransferase (SGPT), serum 26 U/L 12-78 aspartate aminotransferase (SGOT), serum 20 U/L 15-37 calcium, serum 8.8 mg/dL 8.5-10.1 bilirubin, serum, total 0.40 mg/dL 0.00-1.00 cholesterol, serum 251 mg/dL 726-664 7266/03/18 triglyceride, serum, fasting 135 mg/dL 30-200 HDL [...] 0-19 Encounters Code Encounter Date Provider Facility CPT-59482 Level 4 Est. Patient 09:26:11 OCCUPATIONAL MEDICINE SPECIALIST Capo Poe MD [facility] CPT-28336 Level 4 Est. Patient 08:53:08 CDT Capo Poe MD [facility] CPT-09274 Level 4 Est. Patient 10:22:57 CDT Capo Poe MD [facility] CPT-69408 Level 4 Est. Patient 13:44:30 CDT Capo Poe MD [facility] CPT-37038 Level 3 Est. Patient 14:59:32 OCCUPATIONAL MEDICINE SPECIALIST Capo Poe MD [facility] CPT-98926 Level 4 Est. Patient 10:46:15 OCCUPATIONAL MEDICINE SPECIALIST Capo Poe MD [facility] CPT-74698 Level 3 Est. Patient 11:00:53 CDT Capo Poe MD [facility] CPT-60441 Level 3 Est. Patient 09:39:35 CDT Capo Poe MD [facility] CPT-33337 Level 3 Est. Patient 09:27:01 CDT Capo Poe MD [facility] CPT-74462 Level 3 Est. Patient 18:37:08 CDT Zoran Arzola MD [facility] CPT-62082 Level 3 Est. Patient 15:00:28 CDT Capo Poe MD [facility] CPT-52289 Level 3 Est. Patient 08:20:19 CDT Zoran Arzola MD [facility] CPT-82828 Level 3 Est. Patient 09:22:21 CDT Capo Poe MD [facility] CPT-00962 Level 4 Est. Patient 10:21:30 OCCUPATIONAL MEDICINE SPECIALIST Capo Poe MD [facility] CPT-03401 Level 3 Est. Patient 17:08:51 OCCUPATIONAL MEDICINE SPECIALIST Zoran Arzola MD [facility] CPT-97743 Level 4 Est. Patient 09:44:42 CDT Capo Poe MD [facility] CPT-91363 Level 4 Est. Patient 10:39:29 CDT Capo Poe MD [facility] CPT-84473 Level 3 Est. Patient 17:45:23 CDT Zoran Arzola MD [facility] CPT-31234 Level 4 Est. Patient 08:50:44 CDT Capo Poe MD [facility] CPT-52129 Level 3 Est. Patient 10:39:51 OCCUPATIONAL MEDICINE SPECIALIST Capo Poe MD [facility] CPT-84720 Level 4 Est. Patient 09:44:24 OCCUPATIONAL MEDICINE SPECIALIST Capo Poe MD [facility] CPT-95405 Level 3 Est. Patient 14:48:42 OCCUPATIONAL MEDICINE SPECIALIST Zoran Arzola MD [facility] CPT-06913 Level 4 Est. Patient 10:24:02 CDT Capo Poe MD [facility] CPT-15993 Level 3 Est. Patient 15:42:00 CDT Maya DUKES [facility] CPT-18885 Level 4 Est. Patient 13:34:15 CDT Capo Poe MD [facility] CPT-86897 Level 3 Est. Patient 15:32:10 OCCUPATIONAL MEDICINE SPECIALIST Zoran Arzola MD [facility] CPT-54651 Level 3 New Patient 17:17:19 OCCUPATIONAL MEDICINE SPECIALIST Zoran Arzola MD [facility] CPT-71110 Level 4 Est. Patient 10:25:01 OCCUPATIONAL MEDICINE SPECIALIST Capo Poe MD [facility] CPT-04820 Level 3 Est. Patient 10:10:42 CDT Zoran Arzola MD [facility] CPT-19324 Level 3 Est. Patient 22:30:02 CDT Zoran Arzola MD [facility] CPT-86031 Level 4 Est. Patient 09:54:20 CDT Capo Poe MD [facility] CPT-38285 Level 3 Est. Patient 10:48:30 CDT Capo Poe MD [facility] CPT-07903 Level 3 Est. Patient 11:24:45 CDT Capo Poe MD [facility] CPT-03521 Level 3 Est. Patient 15:23:48 OCCUPATIONAL MEDICINE SPECIALIST Capo Poe MD [facility] CPT-74095 Level 3 Est. Patient 15:10:03 OCCUPATIONAL MEDICINE SPECIALIST Capo Poe MD [facility] CPT-50548 Level 3 Est. Patient 16:18:40 CDT Zoran Arzola MD [facility] Procedures Code Procedure Name Date Entry Date Standard Description CPT-81116 Hemoccult IFOBT - LAB USE ONLY 14:11:43 OCCUPATIONAL MEDICINE SPECIALIST CPT-86641 TPSA - LAB USE ONLY 10:37:52 OCCUPATIONAL MEDICINE SPECIALIST CPT-14867 TSH - LAB USE ONLY 10:37:51 OCCUPATIONAL MEDICINE SPECIALIST CPT-14070 CMP - LAB USE ONLY 10:37:51 OCCUPATIONAL MEDICINE SPECIALIST CPT-83165 CBC with Diff - LAB USE ONLY 10:37:51 OCCUPATIONAL MEDICINE SPECIALIST CPT-01687 Venipuncture Draw Fee 10:37:51 OCCUPATIONAL MEDICINE SPECIALIST CPT-000 Give Pneumovax 10:39:30 CDT CPT-78104 Venipuncture Draw Fee 09:32:34 CDT CPT-G0438 Initial Annual Wellness Exam 10:24:35 CDT CPT-14577 Venipuncture Draw Fee 09:46:29 CDT CPT-03717 Venipuncture Draw Fee 14:30:06 CDT CPT-16380 Venipuncture Draw Fee 10:58:22 CDT CPT-60383 Abd single AP View 08:32:00 CDT CPT-99911 Postop F/U Visit 21:13:08 CDT CPT-72645 Abd single AP View 15:50:24 CDT CPT-67441 Cystoscopy W/rem FB 15:21:28 CDT CPT-88561 Abd single AP View 14:06:45 CDT CPT-24797 Postop F/U Visit 09:48:32 CDT CPT-69632 Abd single AP View 13:58:26 CDT CPT-62096 Hip comp min 2V 10:27:18 OCCUPATIONAL MEDICINE SPECIALIST CPT-04349 Urine Dip (Floor Use Only) 13:41:01 OCCUPATIONAL MEDICINE SPECIALIST CPT-13955 Postop F/U Visit 11:17:48 CDT CPT-LR Lesion Removal 11:50:22 CDT CPT-OV Office Visit 11:50:22 CDT CPT-29243 Pneumovax 23 10:55:48 CDT CPT-94516 Administration single or combination vaccine inc oral 10 :55:48 CDT CPT-Cryo Cryotherapy 11:18:11 CDT CPT-OV Office Visit 11:18:11 CDT CPT-66462 LS spine AP and Lat 09:05:22 CDT CPT-18754 Bladder Scan 15:42:00 CDT CPT-89037 Cystoscopy 15:42:00 CDT CPT-OV Office Visit 16:37:19 OCCUPATIONAL MEDICINE SPECIALIST CPT-92988 Bladder Scan 15:32:10 OCCUPATIONAL MEDICINE SPECIALIST CPT-59152 Cystoscopy 15:32:10 OCCUPATIONAL MEDICINE SPECIALIST CPT-79497 Abd single AP View 14:05:59 OCCUPATIONAL MEDICINE SPECIALIST CPT-67077 Pill cam small bowel 09:48:39 OCCUPATIONAL MEDICINE SPECIALIST CPT-43339 Urine Dip (Floor Use Only) 17:17:19 OCCUPATIONAL MEDICINE SPECIALIST CPT-28453 Bladder Scan 17:17:19 OCCUPATIONAL MEDICINE SPECIALIST CPT-OV Office Visit 11:50:26 OCCUPATIONAL MEDICINE SPECIALIST CPT-46032 Bladder Scan 10:10:42 CDT CPT-34340 Venipuncture Draw Fee 09:14:04 CDT CPT-46651 Chest 2V Frontal and Lat 10:10:49 CDT CPT-22609 LS spine comp w obliq 11:50:11 CDT CPT-98622 Venipuncture Draw Fee 08:52:57 OCCUPATIONAL MEDICINE SPECIALIST CPT-82376 Cystoscopy W/rem FB 18:37:28 CDT CPT-07354 Abd single AP View 16:18:40 CDT CPT-54451 Abd compl w upright 17:30:59 CDT
--- OUTSIDE RECORDS SUMMARY | 2016-11-22 17:04 | XMS REPORT | Clinical Summary ---
Author Author Admin, MARGE Organization [facility] Address Unknown Phone Unavailable Allergies, Adverse Reactions, [...] 2 puffs BID MOMETASONE FURO- FORMOTEROL FUM 46977706672 Active Capo Poe MD Active SERTRALINE HCL 100 MG ORAL TABS take 1 tab daily SERTRALINE HCL 54232199434 Active Capo Poe MD Active ZOLOFT 100 MG TABS 1 po daily SERTRALINE HCL 37188077714 No Longer Active Zoran Arzola MD Active FERROUS SULFATE 325 (65 FE) MG TABS 1 tablet by mouth daily FERROUS SULFATE 83207329586 No Longer Active Capo Poe MD Active TRAMADOL HCL 50 MG TABS 1-2 tablets every 6 hours as needed for pain TRAMADOL HCL 35865606696 Active Capo Poe MD Active HYDROCODONE-ACETAMINOPHEN 7.5-300 MG TABS take one every six hours HYDROCODONE-ACETAMINOPHEN 61116101701 No Longer Active Capo Poe MD Active TRIAMCINOLONE ACETONIDE 0.1 % OINT Apply to affected areas TID for up to 2 weeks TRIAMCINOLONE ACETONIDE 62242440805 No Longer Active Joe Vargas RN Active FERROUS SULFATE 325 (65 FE) MG TABS Take one by mouth daily FERROUS SULFATE 72999836528 No Longer Active Capo Poe MD Active TRIAMCINOLONE ACETONIDE 0.1 % OINT Apply to affected areas TID for up to 2 weeks TRIAMCINOLONE ACETONIDE 39364442396 No Longer Active Capo Poe MD Active ADULT ASPIRIN LOW STRENGTH 81 MG TBDP qd ASPIRIN 32443064000 Active Zoran Arzola MD Active ALEVE 220 MG TAB prn NAPROXEN SODIUM 79823446287 Active Capo Poe MD Active LISINOPRIL-HYDROCHLOROTHIAZIDE 10-12.5 MG TABS 1 tab by mouth daily LISINOPRIL-HYDROCHLOROTHIAZIDE 26439340033 Active Capo Poe MD Active MACROBID 100 MG CAP 1 cap by mouth twice daily NITROFURANTOIN MONOHYD MACRO 73685481068 No Longer Active Dona Becker Active AZITHROMYCIN 250 MG TABS 2 po qd x 1 day, then 1 po qd x 4 days AZITHROMYCIN 86545423102 No Longer Active Capo Poe MD Active FISH OIL 500 MG CAPS by mouth twice a day OMEGA-3 FATTY ACIDS 31165370661 Active Capo Poe MD Active FLAXSEED OIL 1000 MG CAPS Take two by mouth daily FLAXSEED (LINSEED) 98977529719 Active Zoran Arzola MD Active RED YEAST RICE 600 MG CAPS Take two by mouth daily RED YEAST RICE EXTRACT 18193709257 Active Zoran Arzola MD Active MULTIVITAMINS CAPS Take one by mouth daily MULTIPLE VITAMIN 80055003252 Active Zoran Arzola MD Active ICAPS MV TABS 2 po daily MULTIPLE VITAMINS-MINERALS 21171626850 Active Jam Arnold DO Active MACROBID 100 MG CAP 1 cap by mouth twice daily MACROBID 100 MG CAP 018729 NITROFURANTOIN MONOHYD MACRO Inactive FERROUS SULFATE 325 (65 FE) MG TABS Take one by mouth daily FERROUS SULFATE 325 (65 FE) MG TABS 518517 FERROUS SULFATE Inactive HYDROCODONE-ACETAMINOPHEN 7.5-300 MG TABS take one every six hours HYDROCODONE-ACETAMINOPHEN 7.5-300 MG TABS 628275 HYDROCODONE- ACETAMINOPHEN Inactive FERROUS SULFATE 325 (65 FE) MG TABS 1 tablet by mouth daily FERROUS SULFATE 325 (65 FE) MG TABS 491509 FERROUS SULFATE Inactive ZOLOFT 100 MG TABS 1 po daily ZOLOFT 100 MG TABS 751301 SERTRALINE HCL Inactive AZITHROMYCIN 250 MG TABS 2 po qd x 1 day, then 1 po qd x 4 days AZITHROMYCIN 250 MG TABS 0446061 AZITHROMYCIN Inactive TRIAMCINOLONE ACETONIDE 0.1 % OINT Apply to affected areas TID for up to 2 weeks TRIAMCINOLONE ACETONIDE 0.1 % OINT 6598202 TRIAMCINOLONE ACETONIDE Inactive TRIAMCINOLONE ACETONIDE 0.1 % OINT Apply to affected areas TID for up to 2 weeks TRIAMCINOLONE ACETONIDE 0.1 % OINT 7978128 TRIAMCINOLONE ACETONIDE Inactive Advance Directives Directive Description [...] CBC - Chemistry cholesterol, serum 207 mg/dL 574-200 7453/02/11 triglyceride, serum, fasting 74 mg/dL 30-200 HDL cholesterol, serum 62 mg/dL 32-96 LDL cholesterol, serum 130 mg/dL 0-130 sodium, serum 144 mmol/L 738-314 3228/02/11 potassium, serum 5.0 mmol/L 3.5-5.2 chloride, serum [...] negative Encounters Code Encounter Date Provider Facility CPT-42408 Level 3 Est. Patient 08:20:19 CDT Zoran Arzola MD [facility] CPT-18391 Level 3 Est. Patient 09:22:21 CDT Capo Poe MD [facility] CPT-22712 Level 4 Est. Patient 10:21:30 TUBER HELPER Capo Poe MD [facility] CPT-10961 Level 3 Est. Patient 17:08:51 TUBER HELPER Zoran Arzola MD [facility] CPT-28002 Level 4 Est. Patient 09:44:42 CDT Capo Poe MD [facility] CPT-02105 Level 4 Est. Patient 10:39:29 CDT Capo Poe MD [facility] CPT-63455 Level 3 Est. Patient 17:45:23 CDT Zoran Arzola MD [facility] CPT-79382 Level 4 Est. Patient 08:50:44 CDT Capo Poe MD [facility] CPT-57147 Level 3 Est. Patient 10:39:51 TUBER HELPER Capo Poe MD [facility] CPT-20801 Level 4 Est. Patient 09:44:24 TUBER HELPER Capo Poe MD [facility] CPT-29034 Level 3 Est. Patient 14:48:42 TUBER HELPER Zoran Arzola MD [facility] CPT-94586 Level 4 Est. Patient 10:24:02 CDT Capo Poe MD [facility] CPT-44266 Level 3 Est. Patient 15:42:00 CDT Maya Kem DUKES [facility] CPT-12119 Level 4 Est. Patient 13:34:15 CDT Capo Poe MD [facility] CPT-65972 Level 3 Est. Patient 15:32:10 TUBER HELPER Zoran Arzola MD [facility] CPT-91282 Level 3 New Patient 17:17:19 TUBER HELPER Zoran Arzola MD [facility] CPT-73880 Level 4 Est. Patient 10:25:01 TUBER HELPER Capo Poe MD [facility] CPT-82583 Level 3 Est. Patient 10:10:42 CDT Zoran Arzola MD [facility] CPT-83780 Level 3 Est. Patient 22:30:02 CDT Zoran Arzola MD [facility] CPT-26478 Level 4 Est. Patient 09:54:20 CDT Capo Poe MD [facility] CPT-85692 Level 3 Est. Patient 10:48:30 CDT Capo Poe MD [facility] CPT-69082 Level 3 Est. Patient 11:24:45 CDT Capo Poe MD [facility] CPT-87257 Level 3 Est. Patient 15:23:48 TUBER HELPER Capo Poe MD [facility] CPT-86330 Level 3 Est. Patient 15:10:03 TUBER HELPER Capo Poe MD [facility] CPT-40085 Level 3 Est. Patient 16:18:40 CDT Zoran Arzola MD [facility] Procedures Code Procedure Name Date Entry Date Standard Description CPT-62744 Cystoscopy W/rem FB 15:21:28 CDT CPT-24711 Abd single AP View 14:06:45 CDT CPT-44844 Postop F/U Visit 09:48:32 CDT CPT-98172 Abd single AP View 13:58:26 CDT CPT-36982 Hip comp min 2V 10:27:18 TUBER HELPER CPT-36383 Urine Dip (Floor Use Only) 13:41:01 TUBER HELPER CPT-26919 Postop F/U Visit 11:17:48 CDT CPT-LR Lesion Removal 11:50:22 CDT CPT-OV Office Visit 11:50:22 CDT CPT-41149 Pneumovax 23 10:55:48 CDT CPT-73194 Administration single or combination vaccine inc oral 10 :55:48 CDT CPT-Cryo Cryotherapy 11:18:11 CDT CPT-OV Office Visit 11:18:11 CDT CPT-87323 LS spine AP and Lat 09:05:22 CDT CPT-01544 Bladder Scan 15:42:00 CDT CPT-88145 Cystoscopy 15:42:00 CDT CPT-OV Office Visit 16:37:19 TUBER HELPER CPT-34215 Bladder Scan 15:32:10 TUBER HELPER CPT-49865 Cystoscopy 15:32:10 TUBER HELPER CPT-45498 Abd single AP View 14:05:59 TUBER HELPER CPT-80314 Pill cam small bowel 09:48:39 TUBER HELPER CPT-83314 Urine Dip (Floor Use Only) 17:17:19 TUBER HELPER CPT-37864 Bladder Scan 17:17:19 TUBER HELPER CPT-OV Office Visit 11:50:26 TUBER HELPER CPT-29566 Bladder Scan 10:10:42 CDT CPT-75774 Venipuncture Draw Fee 09:14:04 CDT CPT-77194 Chest 2V Frontal and Lat 10:10:49 CDT CPT-43538 LS spine comp w obliq 11:50:11 CDT CPT-61423 Venipuncture Draw Fee 08:52:57 TUBER HELPER CPT-97619 Cystoscopy W/rem FB 18:37:28 CDT CPT-29428 Abd single AP View 16:18:40 CDT CPT-19930 Abd compl w upright 17:30:59 CDT
--- OUTSIDE RECORDS SUMMARY | 2016-11-22 17:06 | XMS REPORT ---
Author Author [email or web address] Medical Staff Organization [facility] Address [address] [place], [place] [address] Phone [phone] Summary purpose TRANSITION OF CARE AUTO GENERATION [...] Allergen Category Ingredient Status Reaction Severity Onset Hhxjuus-Evo-Emn Reductase Inhibitors Drug Allergy Hdsnbwr-Yzg-Qqu Reductase Inhibitors Confirmed or Verified BACK PAIN morphine Drug Allergy morphine Confirmed or Verified Swelling Mild Adult Nitrofurantoin Drug Allergy Nitrofurantoin Confirmed or Verified Immunizations No immunizations recorded for this patient visit Relevant diagnostic tests and/or laboratory data RESULTS Radiology Results [id number] CAROTID DUPLEX PACs Image DATE OF EXAM: May 06 2015 [id number] CAROTID DUPLEX SONO : RADIOLOGY REPORT DATE OF SERVICE: 05/06/15 HISTORY: Carotid artery stenosis followup CAROTID AND VERTEBRAL ARTERY [id number] HOURS The carotid and vertebral arteries were evaluated with high resolution real time imaging, pulsed and color flow Doppler. Comparison is made with the prior study of 02/27/2013. There is mild partially calcified plaque in the distal common carotid arteries, carotid bulbs, and proximal internal carotid arteries. There is also some plaque in the proximal left external carotid artery. Peak speed in the right internal carotid artery is 74 cm/sec with ICA/CCA ratio 1.0 and peak speed in the LICA is 85 cm/sec with ICA/CCA ratio of 1.0. There is antegrade vertebral artery flow bilaterally. IMPRESSION: Mild bilateral common carotid, carotid bulb, and ICA plaque with less than 40% stenosis bilaterally. Peak speeds in the LICA are substantially lower than on the prior study of 02/27/2013. Antegrade vertebral artery flow maintained bilaterally. MD DIANE Mueller/co05/06/2015 14:10:05/06/2015 14:20:47 cc:Dr. Capo Menjivar This document has been electronically Signed by: On: DATE OF EXAM: May 06 2015 [id number] CAROTID DUPLEX SONO : RADIOLOGY REPORT DATE OF SERVICE: 05/06/15 HISTORY: Carotid artery stenosis followup CAROTID AND VERTEBRAL ARTERY [id number] HOURS The carotid and vertebral arteries were evaluated with high resolution real time imaging, pulsed and color flow Doppler. Comparison is made with the prior study of 02/27/2013. There is mild partially calcified plaque in the distal common carotid arteries, carotid bulbs, and proximal internal carotid arteries. There is also some plaque in the proximal left external carotid artery. Peak speed in the right internal carotid artery is 74 cm/sec with ICA/CCA ratio 1.0 and peak speed in the LICA is 85 cm/sec with ICA/CCA ratio of 1.0. There is antegrade vertebral artery flow bilaterally. IMPRESSION: Mild bilateral common carotid, carotid bulb, and ICA plaque with less than 40% stenosis bilaterally. Peak speeds in the LICA are substantially lower than on the prior study of 02/27/2013. Antegrade vertebral artery flow maintained bilaterally. MD DIANE Mueller/co05/06/2015 14:10:05/06/2015 14:20:47 cc:Dr. Capo Menjivar This document has been electronically Signed by: ANGELIA SHUKLA MD On: May 06 20156:43P Result Amended on 2015-05-06 at 18:43:13. Previous status was [place]. History of procedures Procedure Code Code Type Description Date Performed Performing Physician [id number] CPT-4 EXTRACRANIAL BILAT STUDY 05-06-2015 CAPO MENJIVAR Functional status No functional or cognitive status [...]
--- OUTSIDE RECORDS SUMMARY | 2016-11-22 17:06 | XMS REPORT | Clinical Summary ---
Author Author Admin, QIE Organization [employer] Address Unknown Phone Unavailable Allergies, Adverse Reactions, [...] 1 tablet by mouth daily CITALOPRAM HYDROBROMIDE 42829252761 Active Felisa Daphney RMMarva Active CLARITIN 5 MG ORAL CHEW 1 tab po q day LORATADINE 24169091372 Active Felisa Daphney RMA Active VIIBRYD STARTER PACK 10 & 20 MG ORAL KIT 1 po qd as directed 2015 VILAZODONE HCL 22325787729 No Longer Active Felisa TEIXEIRA Active HYDROXYZINE HCL 25 MG TAB 1 po qHS PRN Insomnia HYDROXYZINE HCL 21116410393 Active Capo Poe MD Active LISINOPRIL 10 MG TABS 1 tablet by mouth daily LISINOPRIL 20836335243 Active Capo Poe MD Active LORTAB 7.5-325 MG ORAL TABS 1 po q 6 hr prn pain HYDROCODONE- ACETAMINOPHEN 23534200363 No Longer Active Capo Poe MD Active FLOMAX 0.4 MG CAPS Take one by mouth daily TAMSULOSIN HCL 84690559123 No Longer Active Capo Poe MD Active TRIAMCINOLONE ACETONIDE 0.1 % CREA Apply to affected areas TID for up to 2 weeks TRIAMCINOLONE ACETONIDE 70682999545 Active Capo Poe MD Active NICOTINE 14 MG/24HR TRANS PT24 Apply/Change q 24hr NICOTINE 57430310945 No Longer Active Capo Poe MD Active TRAMADOL HCL 50 MG TABS 1-2 tablets every 6 hours as needed for pain TRAMADOL HCL 69910461456 No Longer Active Capo Poe MD Active SERTRALINE HCL 100 MG ORAL TABS take 1 tab daily SERTRALINE HCL 14094828068 No Longer Active Capo Poe MD Active LISINOPRIL-HYDROCHLOROTHIAZIDE 10-12.5 MG TABS 0.5 tab by mouth daily LISINOPRIL-HYDROCHLOROTHIAZIDE 94581722724 No Longer Active Capo Poe MD Active OMEPRAZOLE 20 MG CPDR 1 tablet by mouth daily OMEPRAZOLE 91844490253 Active Capo Poe MD Active WELLBUTRIN SR 150 MG ORAL [id number] 1 po BID BUPROPION HCL 84228805425 No Longer Active Capo Poe MD Active MIRALAX PACK 1 po qd PRN Constipation POLYETHYLENE GLYCOL 3350 44615734769 Active Capo Poe MD Active DULERA 100-5 MCG/ACT AERO 2 puffs BID MOMETASONE FURO- FORMOTEROL FUM 08989990206 Active Capo Poe MD Active ZOLOFT 100 MG TABS 1 po daily SERTRALINE HCL 76034738982 No Longer Active Zoran Arzola MD Active FERROUS SULFATE 325 (65 FE) MG TABS 1 tablet by mouth daily FERROUS SULFATE 41981347909 No Longer Active Capo Poe MD Active HYDROCODONE-ACETAMINOPHEN 7.5-300 MG TABS take one every six hours HYDROCODONE-ACETAMINOPHEN 93505697069 No Longer Active Capo Poe MD Active TRIAMCINOLONE ACETONIDE 0.1 % OINT Apply to affected areas TID for up to 2 weeks TRIAMCINOLONE ACETONIDE 28766529096 No Longer Active Joe Vargas RN Active FERROUS SULFATE 325 (65 FE) MG TABS Take one by mouth daily FERROUS SULFATE 87622543763 No Longer Active Capo Poe MD Active TRIAMCINOLONE ACETONIDE 0.1 % OINT Apply to affected areas TID for up to 2 weeks TRIAMCINOLONE ACETONIDE 48270886488 No Longer Active Capo Poe MD Active ADULT ASPIRIN LOW STRENGTH 81 MG TBDP qd ASPIRIN 22159203951 Active Zoran Arzola MD Active ALEVE 220 MG TAB prn NAPROXEN SODIUM 94623882500 Active Capo Poe MD Active MACROBID 100 MG CAP 1 cap by mouth twice daily NITROFURANTOIN MONOHYD MACRO 31170408750 No Longer Active Dona Becker Active AZITHROMYCIN 250 MG TABS 2 po qd x 1 day, then 1 po qd x 4 days AZITHROMYCIN 21743197920 No Longer Active Capo Poe MD Active FISH OIL 500 MG CAPS by mouth twice a day OMEGA-3 FATTY ACIDS 32807835346 Active Capo Poe MD Active FLAXSEED OIL 1000 MG CAPS Take two by mouth daily FLAXSEED (LINSEED) 94464247723 Active Zoran Arzola MD Active RED YEAST RICE 600 MG CAPS Take two by mouth daily RED YEAST RICE EXTRACT 79710813434 Active Zoran Arzola MD Active MULTIVITAMINS CAPS Take one by mouth daily MULTIPLE VITAMIN 89607137727 Active Zoran Arzola MD Active ICAPS MV TABS 2 po daily MULTIPLE VITAMINS-MINERALS 57307439788 Active Jam Arnold DO Active MACROBID 100 MG CAP 1 cap by mouth twice daily MACROBID 100 MG CAP 3224589 NITROFURANTOIN MONOHYD MACRO Inactive FERROUS SULFATE 325 (65 FE) MG TABS Take one by mouth daily FERROUS SULFATE 325 (65 FE) MG TABS 097716 FERROUS SULFATE Inactive HYDROCODONE-ACETAMINOPHEN 7.5-300 MG TABS take one every six hours HYDROCODONE-ACETAMINOPHEN 7.5-300 MG TABS 208271 HYDROCODONE- ACETAMINOPHEN Inactive FERROUS SULFATE 325 (65 FE) MG TABS 1 tablet by mouth daily FERROUS SULFATE 325 (65 FE) MG TABS 204648 FERROUS SULFATE Inactive ZOLOFT 100 MG TABS 1 po daily ZOLOFT 100 MG TABS 241855 SERTRALINE HCL Inactive SERTRALINE HCL 100 MG ORAL TABS take 1 tab daily SERTRALINE HCL 100 MG ORAL TABS 590096 SERTRALINE HCL Inactive TRAMADOL HCL 50 MG TABS 1-2 tablets every 6 hours as needed for pain TRAMADOL HCL 50 MG TABS 351422 TRAMADOL HCL Inactive NICOTINE 14 MG/24HR TRANS PT24 Apply/Change q 24hr NICOTINE 14 MG/24HR TRANS PT24 652394 NICOTINE Inactive FLOMAX 0.4 MG CAPS Take one by mouth daily FLOMAX 0.4 MG CAPS 293319 TAMSULOSIN HCL Inactive LORTAB 7.5-325 MG ORAL TABS 1 po q 6 hr prn pain LORTAB 7.5- 325 MG ORAL TABS 480880 HYDROCODONE-ACETAMINOPHEN Inactive VIIBRYD STARTER PACK 10 & 20 MG ORAL KIT 1 po qd as directed 2015 VIIBRYD STARTER PACK 10 & 20 MG ORAL KIT VILAZODONE HCL Inactive AZITHROMYCIN 250 MG TABS 2 po qd x 1 day, then 1 po qd x 4 days AZITHROMYCIN 250 MG TABS 8193023 AZITHROMYCIN Inactive TRIAMCINOLONE ACETONIDE 0.1 % OINT Apply to affected areas TID for up to 2 weeks TRIAMCINOLONE ACETONIDE 0.1 % OINT 7730564 TRIAMCINOLONE ACETONIDE Inactive TRIAMCINOLONE ACETONIDE 0.1 % OINT Apply to affected areas TID for up to 2 weeks TRIAMCINOLONE ACETONIDE 0.1 % OINT 8383323 TRIAMCINOLONE ACETONIDE Inactive Advance Directives Directive Description [...] Panel - Chemistry sodium, serum 139 mmol/L 459-493 2315/07/30 potassium, serum 4.7 mmol/L 3.5-5.2 chloride, serum [...] mg/g mg/g{creat} 0-29 sodium, serum 138 mmol/L 032-567 5540/03/18 carbon dioxide, venous blood 25.5 mmol/L 21.0-32.0 potassium, serum 4.6 mmol/L 3.5-5.2 chloride, serum 101 mmol/L 98-107 blood glucose 129 mg/dL 65-110 urea nitrogen, blood 20 mg/dL 7-18 creatinine, serum 1.87 mg/dL 0.55-1.30 alanine aminotransferase (SGPT), serum 26 U/L 12-78 aspartate aminotransferase (SGOT), serum 20 U/L 15-37 calcium, serum 8.8 mg/dL 8.5-10.1 bilirubin, serum, total 0.40 mg/dL 0.00-1.00 cholesterol, serum 251 mg/dL 585-569 8355/03/18 triglyceride, serum, fasting 135 mg/dL 30-200 HDL [...] 0.00-4.00 Encounters Code Encounter Date Provider Facility CPT-95206 Level 4 Est. Patient 13:44:30 CDT Capo Poe MD [facility] CPT-70306 Level 3 Est. Patient 14:59:32 PUPPET DEVELOPER Capo Poe MD [facility] CPT-03297 Level 4 Est. Patient 10:46:15 PUPPET DEVELOPER Capo Poe MD [facility] CPT-58234 Level 3 Est. Patient 11:00:53 CDT Capo Poe MD [facility] CPT-73185 Level 3 Est. Patient 09:39:35 CDT Capo Poe MD [facility] CPT-17279 Level 3 Est. Patient 09:27:01 CDT Capo Poe MD [facility] CPT-59434 Level 3 Est. Patient 18:37:08 CDT Zoran Arzola MD [facility] CPT-85904 Level 3 Est. Patient 15:00:28 CDT Capo Poe MD [facility] CPT-85762 Level 3 Est. Patient 08:20:19 CDT Zoran Arzola MD [facility] CPT-38969 Level 3 Est. Patient 09:22:21 CDT Capo Poe MD [facility] CPT-40681 Level 4 Est. Patient 10:21:30 PUPPET DEVELOPER Capo Poe MD [facility] CPT-08546 Level 3 Est. Patient 17:08:51 PUPPET DEVELOPER Zoran Arzola MD [facility] CPT-90348 Level 4 Est. Patient 09:44:42 CDT Capo Poe MD [facility] CPT-39871 Level 4 Est. Patient 10:39:29 CDT Capo Poe MD [facility] CPT-62904 Level 3 Est. Patient 17:45:23 CDT Zoran Arzola MD [facility] CPT-53299 Level 4 Est. Patient 08:50:44 CDT Capo Poe MD [facility] CPT-67681 Level 3 Est. Patient 10:39:51 PUPPET DEVELOPER Capo Poe MD [facility] CPT-54242 Level 4 Est. Patient 09:44:24 PUPPET DEVELOPER Capo Poe MD [facility] CPT-80330 Level 3 Est. Patient 14:48:42 PUPPET DEVELOPER Zoran Arzola MD [facility] CPT-92020 Level 4 Est. Patient 10:24:02 CDT Capo Poe MD [facility] CPT-82110 Level 3 Est. Patient 15:42:00 CDT Maya DUKES [facility] CPT-98832 Level 4 Est. Patient 13:34:15 CDT Capo Poe MD [facility] CPT-06665 Level 3 Est. Patient 15:32:10 PUPPET DEVELOPER Zoran Arzola MD [facility] CPT-97236 Level 3 New Patient 17:17:19 PUPPET DEVELOPER Zoran Arzola MD [facility] CPT-89020 Level 4 Est. Patient 10:25:01 PUPPET DEVELOPER Capo Poe MD [facility] CPT-35579 Level 3 Est. Patient 10:10:42 CDT Zoran Arzola MD [facility] CPT-59558 Level 3 Est. Patient 22:30:02 CDT Zoran Arzola MD [facility] CPT-44170 Level 4 Est. Patient 09:54:20 CDT Capo Poe MD [facility] CPT-33390 Level 3 Est. Patient 10:48:30 CDT Capo Poe MD [facility] CPT-55035 Level 3 Est. Patient 11:24:45 CDT Capo Poe MD [facility] CPT-72681 Level 3 Est. Patient 15:23:48 PUPPET DEVELOPER Capo Poe MD [facility] CPT-26939 Level 3 Est. Patient 15:10:03 PUPPET DEVELOPER Capo Poe MD [facility] CPT-71961 Level 3 Est. Patient 16:18:40 CDT Zoran Arzola MD [facility] Procedures Code Procedure Name Date Entry Date Standard Description CPT-34201 Venipuncture Draw Fee 09:32:34 CDT CPT-G0438 Initial Annual Wellness Exam 10:24:35 CDT CPT-64444 Venipuncture Draw Fee 09:46:29 CDT CPT-82696 Venipuncture Draw Fee 14:30:06 CDT CPT-46383 Venipuncture Draw Fee 10:58:22 CDT CPT-84265 Abd single AP View 08:32:00 CDT CPT-64988 Postop F/U Visit 21:13:08 CDT CPT-84170 Abd single AP View 15:50:24 CDT CPT-00979 Cystoscopy W/rem FB 15:21:28 CDT CPT-30834 Abd single AP View 14:06:45 CDT CPT-20063 Postop F/U Visit 09:48:32 CDT CPT-11241 Abd single AP View 13:58:26 CDT CPT-98585 Hip comp min 2V 10:27:18 PUPPET DEVELOPER CPT-90030 Urine Dip (Floor Use Only) 13:41:01 PUPPET DEVELOPER CPT-16196 Postop F/U Visit 11:17:48 CDT CPT-LR Lesion Removal 11:50:22 CDT CPT-OV Office Visit 11:50:22 CDT CPT-60890 Pneumovax 23 10:55:48 CDT CPT-51942 Administration single or combination vaccine inc oral 10 :55:48 CDT CPT-Cryo Cryotherapy 11:18:11 CDT CPT-OV Office Visit 11:18:11 CDT CPT-69038 LS spine AP and Lat 09:05:22 CDT CPT-03760 Bladder Scan 15:42:00 CDT CPT-19513 Cystoscopy 15:42:00 CDT CPT-OV Office Visit 16:37:19 PUPPET DEVELOPER CPT-90352 Bladder Scan 15:32:10 PUPPET DEVELOPER CPT-71716 Cystoscopy 15:32:10 PUPPET DEVELOPER CPT-18016 Abd single AP View 14:05:59 PUPPET DEVELOPER CPT-72231 Pill cam small bowel 09:48:39 PUPPET DEVELOPER CPT-94476 Urine Dip (Floor Use Only) 17:17:19 PUPPET DEVELOPER CPT-63691 Bladder Scan 17:17:19 PUPPET DEVELOPER CPT-OV Office Visit 11:50:26 PUPPET DEVELOPER CPT-47041 Bladder Scan 10:10:42 CDT CPT-54938 Venipuncture Draw Fee 09:14:04 CDT CPT-93566 Chest 2V Frontal and Lat 10:10:49 CDT CPT-50185 LS spine comp w obliq 11:50:11 CDT CPT-49444 Venipuncture Draw Fee 08:52:57 PUPPET DEVELOPER CPT-52218 Cystoscopy W/rem FB 18:37:28 CDT CPT-51358 Abd single AP View 16:18:40 CDT CPT-46121 Abd compl w upright 17:30:59 CDT
--- OUTSIDE RECORDS SUMMARY | 2016-11-22 17:07 | XMS REPORT ---
Author Author [facility] [employer] [facility] Medical Staff Organization [facility] [employer] [facility] Address [address] [place] [id number] Phone [phone] Summary purpose TRANSITION OF CARE AUTO GENERATION Chief Complaint and Reason for Visit Admit Diagnosis 1 ABDOMINAL PAIN, OTHER Problem list No authorized problems tracked for continuity of care are available for this visit. Encounters No authorized problems tracked for encounter diagnoses are available for this visit. Medications No medications recorded for this patient visit Allergies, adverse reactions, alerts Allergen Category Ingredient Status Reaction Severity Onset Tlmcpcf-Ycf-Gvs Reductase Inhibitors Drug Allergy Bzaaixe-Fzy-Cmc Reductase Inhibitors Confirmed or Verified BACK PAIN morphine Drug Allergy morphine Confirmed or Verified Swelling Mild Adult Nitrofurantoin Drug Allergy Nitrofurantoin Confirmed or Verified Immunizations No immunizations recorded for this patient visit Relevant diagnostic tests and/or laboratory data RESULTS Radiology Results [id number] CT RENAL STONE LESLIE PACs Image DATE OF EXAM: Sep 10 2014 [id number] RENAL STONE PROTOCOL WO CONTR : RADIOLOGY REPORT DATE OF SERVICE: 09/10/14 HISTORY: Right flank pain NONCONTRAST CT ABDOMEN AND PELVIS RENAL STONE [id number] HOURS Axial scans were reconstructed at 2.5 [...] Mueller/janae09/10/2014 11:03: / 09/10/2014 11:14:26 cc:Dr. Salomón Langston This document has been electronically Signed by: On: DATE OF EXAM: Sep 10 2014 [id number] RENAL STONE PROTOCOL WO CONTR : RADIOLOGY REPORT DATE OF SERVICE: 09/10/14 HISTORY: Right flank pain NONCONTRAST CT ABDOMEN AND PELVIS RENAL STONE [id number] HOURS Axial scans were reconstructed at 2.5 [...] MD DIANE Mueller/janae09/10/2014 11:03:09/10/2014 11:14:26 cc:Dr. Salomón Langston This document has been electronically Signed by: ANGELIA SHUKLA On: Sep 10 2014 11:29A Result Amended on 2014-09-10 at 11:29:33. Previous status was [place]. History of procedures Procedure Code Code Type Description Date Performed Performing Physician [id number] CPT-4 CT ABD & PELVIS W/O CONTRAST 09-10-2014 SALOMÓN LANGSTON Functional status No functional or cognitive status [...]
--- OUTSIDE RECORDS SUMMARY | 2016-11-22 17:07 | XMS REPORT | Clinical Summary ---
Author Author Admin, QIE Organization [employer] Address Unknown Phone Unavailable Allergies, Adverse Reactions, [...] 1 tablet by mouth daily CITALOPRAM HYDROBROMIDE 06542177377 Active Felisamario TEIXEIRA Active CLARITIN 5 MG ORAL CHEW 1 tab po q day LORATADINE 00177427046 Active Felisa Daphney RMA Active VIIBRYD STARTER PACK 10 & 20 MG ORAL KIT 1 po qd as directed 2015 VILAZODONE HCL 99149117299 No Longer Active Felisa TEIXEIRA Active HYDROXYZINE HCL 25 MG TAB 1 po qHS PRN Insomnia HYDROXYZINE HCL 63680325150 Active Capo Poe MD Active LISINOPRIL 10 MG TABS 1 tablet by mouth daily LISINOPRIL 91865905811 Active Capo Poe MD Active LORTAB 7.5-325 MG ORAL TABS 1 po q 6 hr prn pain HYDROCODONE- ACETAMINOPHEN 83962446276 No Longer Active Capo Poe MD Active FLOMAX 0.4 MG CAPS Take one by mouth daily TAMSULOSIN HCL 70376650767 No Longer Active Capo Poe MD Active TRIAMCINOLONE ACETONIDE 0.1 % CREA Apply to affected areas TID for up to 2 weeks TRIAMCINOLONE ACETONIDE 34735477330 Active Capo Poe MD Active NICOTINE 14 MG/24HR TRANS PT24 Apply/Change q 24hr NICOTINE 96176546484 No Longer Active Capo Poe MD Active TRAMADOL HCL 50 MG TABS 1-2 tablets every 6 hours as needed for pain TRAMADOL HCL 66348579972 No Longer Active Capo Poe MD Active SERTRALINE HCL 100 MG ORAL TABS take 1 tab daily SERTRALINE HCL 21459882533 No Longer Active Capo Poe MD Active LISINOPRIL-HYDROCHLOROTHIAZIDE 10-12.5 MG TABS 0.5 tab by mouth daily LISINOPRIL-HYDROCHLOROTHIAZIDE 97724431025 No Longer Active Capo Poe MD Active OMEPRAZOLE 20 MG CPDR 1 tablet by mouth daily OMEPRAZOLE 50939225019 Active Capo Poe MD Active WELLBUTRIN SR 150 MG ORAL [id number] 1 po BID BUPROPION HCL 47036602823 No Longer Active Capo Poe MD Active MIRALAX PACK 1 po qd PRN Constipation POLYETHYLENE GLYCOL 3350 92527348982 Active Capo Poe MD Active DULERA 100-5 MCG/ACT AERO 2 puffs BID MOMETASONE FURO- FORMOTEROL FUM 60237968062 Active Capo Poe MD Active ZOLOFT 100 MG TABS 1 po daily SERTRALINE HCL 94837917615 No Longer Active Zoran Arzola MD Active FERROUS SULFATE 325 (65 FE) MG TABS 1 tablet by mouth daily FERROUS SULFATE 85133991490 No Longer Active Capo Poe MD Active HYDROCODONE-ACETAMINOPHEN 7.5-300 MG TABS take one every six hours HYDROCODONE-ACETAMINOPHEN 42325640476 No Longer Active Capo Poe MD Active TRIAMCINOLONE ACETONIDE 0.1 % OINT Apply to affected areas TID for up to 2 weeks TRIAMCINOLONE ACETONIDE 89746356643 No Longer Active Joe Vargas RN Active FERROUS SULFATE 325 (65 FE) MG TABS Take one by mouth daily FERROUS SULFATE 74953022962 No Longer Active Capo Poe MD Active TRIAMCINOLONE ACETONIDE 0.1 % OINT Apply to affected areas TID for up to 2 weeks TRIAMCINOLONE ACETONIDE 90726239928 No Longer Active Capo Poe MD Active ADULT ASPIRIN LOW STRENGTH 81 MG TBDP qd ASPIRIN 83122140408 Active Zoran Arzola MD Active ALEVE 220 MG TAB prn NAPROXEN SODIUM 41084013933 Active Capo Poe MD Active MACROBID 100 MG CAP 1 cap by mouth twice daily NITROFURANTOIN MONOHYD MACRO 90145731858 No Longer Active Dona Becker Active AZITHROMYCIN 250 MG TABS 2 po qd x 1 day, then 1 po qd x 4 days AZITHROMYCIN 14146504243 No Longer Active Capo Poe MD Active FISH OIL 500 MG CAPS by mouth twice a day OMEGA-3 FATTY ACIDS 16599189253 Active Capo Poe MD Active FLAXSEED OIL 1000 MG CAPS Take two by mouth daily FLAXSEED (LINSEED) 84572042303 Active Zoran Arzola MD Active RED YEAST RICE 600 MG CAPS Take two by mouth daily RED YEAST RICE EXTRACT 30895698910 Active Zoran Arzola MD Active MULTIVITAMINS CAPS Take one by mouth daily MULTIPLE VITAMIN 64430253498 Elza Arzola MD Active ICAPS MV TABS 2 po daily MULTIPLE VITAMINS-MINERALS 13857071262 Active Jam Arnold DO Active MACROBID 100 MG CAP 1 cap by mouth twice daily MACROBID 100 MG CAP 5717793 NITROFURANTOIN MONOHYD MACRO Inactive FERROUS SULFATE 325 (65 FE) MG TABS Take one by mouth daily FERROUS SULFATE 325 (65 FE) MG TABS 915275 FERROUS SULFATE Inactive HYDROCODONE-ACETAMINOPHEN 7.5-300 MG TABS take one every six hours HYDROCODONE-ACETAMINOPHEN 7.5-300 MG TABS 461474 HYDROCODONE- ACETAMINOPHEN Inactive FERROUS SULFATE 325 (65 FE) MG TABS 1 tablet by mouth daily FERROUS SULFATE 325 (65 FE) MG TABS 981786 FERROUS SULFATE Inactive ZOLOFT 100 MG TABS 1 po daily ZOLOFT 100 MG TABS 246180 SERTRALINE HCL Inactive SERTRALINE HCL 100 MG ORAL TABS take 1 tab daily SERTRALINE HCL 100 MG ORAL TABS 651787 SERTRALINE HCL Inactive TRAMADOL HCL 50 MG TABS 1-2 tablets every 6 hours as needed for pain TRAMADOL HCL 50 MG TABS 466041 TRAMADOL HCL Inactive NICOTINE 14 MG/24HR TRANS PT24 Apply/Change q 24hr NICOTINE 14 MG/24HR TRANS PT24 424586 NICOTINE Inactive FLOMAX 0.4 MG CAPS Take one by mouth daily FLOMAX 0.4 MG CAPS 092287 TAMSULOSIN HCL Inactive LORTAB 7.5-325 MG ORAL TABS 1 po q 6 hr prn pain LORTAB 7.5- 325 MG ORAL TABS 286577 HYDROCODONE-ACETAMINOPHEN Inactive VIIBRYD STARTER PACK 10 & 20 MG ORAL KIT 1 po qd as directed 2015 VIIBRYD STARTER PACK 10 & 20 MG ORAL KIT VILAZODONE HCL Inactive AZITHROMYCIN 250 MG TABS 2 po qd x 1 day, then 1 po qd x 4 days AZITHROMYCIN 250 MG TABS 8550741 AZITHROMYCIN Inactive TRIAMCINOLONE ACETONIDE 0.1 % OINT Apply to affected areas TID for up to 2 weeks TRIAMCINOLONE ACETONIDE 0.1 % OINT 5429068 TRIAMCINOLONE ACETONIDE Inactive TRIAMCINOLONE ACETONIDE 0.1 % OINT Apply to affected areas TID for up to 2 weeks TRIAMCINOLONE ACETONIDE 0.1 % OINT 5661680 TRIAMCINOLONE ACETONIDE Inactive Advance Directives Directive Description [...] 25.5 mmol/L 21.0-32.0 sodium, serum 138 mmol/L 425-556 0581/03/18 urea nitrogen, blood 20 mg/dL 7-18 creatinine, serum 1.87 mg/dL 0.55-1.30 alanine aminotransferase (SGPT), serum 26 U/L 12-78 aspartate aminotransferase (SGOT), serum 20 U/L 15-37 calcium, serum 8.8 mg/dL 8.5-10.1 bilirubin, serum, total 0.40 mg/dL 0.00-1.00 cholesterol, serum 251 mg/dL 122-116 5870/03/18 triglyceride, serum, fasting 135 mg/dL 30-200 HDL [...] 0-19 Encounters Code Encounter Date Provider Facility CPT-32858 Level 4 Est. Patient 08:53:08 CDT Capo Poe MD [facility] CPT-39433 Level 4 Est. Patient 10:22:57 CDT Capo Poe MD [facility] CPT-87882 Level 4 Est. Patient 13:44:30 CDT Capo Poe MD [facility] CPT-05419 Level 3 Est. Patient 14:59:32 [facility] Capo Poe MD [facility] CPT-59784 Level 4 Est. Patient 10:46:15 [facility] Capo Poe MD [facility] CPT-04660 Level 3 Est. Patient 11:00:53 CDT Capo Poe MD [facility] CPT-75589 Level 3 Est. Patient 09:39:35 CDT Capo Poe MD [facility] CPT-36947 Level 3 Est. Patient 09:27:01 CDT Capo Poe MD [facility] CPT-97656 Level 3 Est. Patient 18:37:08 CDT Zoran Arzola MD [facility] CPT-08619 Level 3 Est. Patient 15:00:28 CDT Capo Poe MD [facility] CPT-73351 Level 3 Est. Patient 08:20:19 CDT Zoran Arzola MD [facility] CPT-22914 Level 3 Est. Patient 09:22:21 CDT Capo Poe MD [facility] CPT-58819 Level 4 Est. Patient 10:21:30 [facility] Capo Poe MD [facility] CPT-36619 Level 3 Est. Patient 17:08:51 [facility] Zoran Arzola MD [facility] CPT-56868 Level 4 Est. Patient 09:44:42 CDT Capo Poe MD [facility] CPT-24724 Level 4 Est. Patient 10:39:29 CDT Capo Poe MD [facility] CPT-04761 Level 3 Est. Patient 17:45:23 CDT Zoran Arzola MD [facility] CPT-78234 Level 4 Est. Patient 08:50:44 CDT Capo Poe MD [facility] CPT-26375 Level 3 Est. Patient 10:39:51 [employer] Capo Poe MD [facility] CPT-11632 Level 4 Est. Patient 09:44:24 [employer] Capo Poe MD [facility] CPT-95170 Level 3 Est. Patient 14:48:42 [employer] Zoran Arzola MD [facility] CPT-97785 Level 4 Est. Patient 10:24:02 CDT Capo Poe MD [facility] CPT-26046 Level 3 Est. Patient 15:42:00 CDT Maya WRIGHTP [facility] CPT-35839 Level 4 Est. Patient 13:34:15 CDT Capo Poe MD [facility] CPT-84204 Level 3 Est. Patient 15:32:10 [facility] Zoran Arzola MD [facility] CPT-18749 Level 3 New Patient 17:17:19 [employer] Zoran Arzola MD [facility] CPT-52015 Level 4 Est. Patient 10:25:01 [employer] Capo Poe MD [facility] CPT-26644 Level 3 Est. Patient 10:10:42 CDT Zoran Arzola MD [facility] CPT-47163 Level 3 Est. Patient 22:30:02 CDT Zoran Arzola MD [facility] CPT-41182 Level 4 Est. Patient 09:54:20 CDT Capo oPe MD [facility] CPT-79033 Level 3 Est. Patient 10:48:30 CDT Capo Poe MD [facility] CPT-72439 Level 3 Est. Patient 11:24:45 CDT Capo Poe MD [facility] CPT-17845 Level 3 Est. Patient 15:23:48 [employer] Capo Poe MD [facility] CPT-23526 Level 3 Est. Patient 15:10:03 [employer] Capo Poe MD [facility] CPT-76922 Level 3 Est. Patient 16:18:40 CDT Zoran Arzola MD [facility] Procedures Code Procedure Name Date Entry Date Standard Description CPT-61306 Venipuncture Draw Fee 09:32:34 CDT CPT-G0438 Initial Annual Wellness Exam 10:24:35 CDT CPT-22260 Venipuncture Draw Fee 09:46:29 CDT CPT-88412 Venipuncture Draw Fee 14:30:06 CDT CPT-12603 Venipuncture Draw Fee 10:58:22 CDT CPT-74057 Abd single AP View 08:32:00 CDT CPT-87882 Postop F/U Visit 21:13:08 CDT CPT-57320 Abd single AP View 15:50:24 CDT CPT-01955 Cystoscopy W/rem FB 15:21:28 CDT CPT-08545 Abd single AP View 14:06:45 CDT CPT-83363 Postop F/U Visit 09:48:32 CDT CPT-81447 Abd single AP View 13:58:26 CDT CPT-42315 Hip comp min 2V 10:27:18 [facility] CPT-78409 Urine Dip (Floor Use Only) 13:41:01 [employer] CPT-79725 Postop F/U Visit 11:17:48 CDT CPT-LR Lesion Removal 11:50:22 CDT CPT-OV Office Visit 11:50:22 CDT CPT-84235 Pneumovax 23 10:55:48 CDT CPT-21695 Administration single or combination vaccine inc oral 10 :55:48 CDT CPT-Cryo Cryotherapy 11:18:11 CDT CPT-OV Office Visit 11:18:11 CDT CPT-21251 LS spine AP and Lat 09:05:22 CDT CPT-26717 Bladder Scan 15:42:00 CDT CPT-65834 Cystoscopy 15:42:00 CDT CPT-OV Office Visit 16:37:19 [facility] CPT-15853 Bladder Scan 15:32:10 [facility] CPT-09622 Cystoscopy 15:32:10 [employer] CPT-16914 Abd single AP View 14:05:59 [employer] CPT-45927 Pill cam small bowel 09:48:39 [employer] CPT-03760 Urine Dip (Floor Use Only) 17:17:19 [employer] CPT-01557 Bladder Scan 17:17:19 [employer] CPT-OV Office Visit 11:50:26 [employer] CPT-83531 Bladder Scan 10:10:42 CDT CPT-88437 Venipuncture Draw Fee 09:14:04 CDT CPT-28136 Chest 2V Frontal and Lat 10:10:49 CDT CPT-00501 LS spine comp w obliq 11:50:11 CDT CPT-03994 Venipuncture Draw Fee 08:52:57 [employer] CPT-50145 Cystoscopy W/rem FB 18:37:28 CDT CPT-34942 Abd single AP View 16:18:40 CDT CPT-63840 Abd compl w upright 17:30:59 CDT
--- OUTSIDE RECORDS SUMMARY | 2016-11-22 17:09 | XMS REPORT ---
Author Author [facility] Organization [place] [facility] Address [address] [place], [place] [id number] Phone [phone] Summary purpose TRANSITION OF CARE AUTO GENERATION [...] Allergen Category Ingredient Status Reaction Severity Onset Tqkrkzq-Kth-Ybp Reductase Inhibitors Drug Allergy Cguydnk-Hqq-Btm Reductase Inhibitors Confirmed or Verified BACK PAIN morphine Drug Allergy morphine Confirmed or Verified Swelling Mild Adult Nitrofurantoin Drug Allergy Nitrofurantoin Confirmed or Verified Immunizations No immunizations recorded for this patient visit Relevant diagnostic tests and/or laboratory data RESULTS Radiology Results [id number] CAROTID DUPLEX PACs Image DATE OF EXAM: May 06 2015 [id number] CAROTID DUPLEX SONO : RADIOLOGY REPORT DATE OF SERVICE: 05/06/15 HISTORY: Carotid artery stenosis followup CAROTID AND VERTEBRAL ARTERY [id number] HOURS The carotid and vertebral arteries were [...] vertebral artery flow maintained bilaterally. MD DIANE Mueller/hi05/06/2015 14:10:05/06/2015 14:20:47 cc:Dr. Capo Poe This document has been electronically Signed by: On: DATE OF EXAM: May 06 2015 [id number] CAROTID DUPLEX SONO : RADIOLOGY REPORT DATE OF SERVICE: 05/06/15 HISTORY: Carotid artery stenosis followup CAROTID AND VERTEBRAL ARTERY [id number] HOURS The carotid and vertebral arteries were [...] vertebral artery flow maintained bilaterally. MD DIANE Mueller/hi05/06/2015 14:10:05/06/2015 14:20:47 cc:Dr. Capo Poe This document has been electronically Signed by: ANGELIA SHUKLA MD On: May 06 20156:43P Result Amended on 2015-05-06 at 18:43:13. Previous status was MA. History of procedures No procedures recorded for [...]
--- OUTSIDE RECORDS SUMMARY | 2016-11-22 17:09 | XMS REPORT | Clinical Summary ---
Author Author Admin, MARGE Organization [facility] Address Unknown Phone Unavailable Allergies, Adverse Reactions, [...] 2 puffs BID MOMETASONE FURO- FORMOTEROL FUM 86772304065 Active Capo Poe MD Active SERTRALINE HCL 100 MG ORAL TABS take 1 tab daily SERTRALINE HCL 61280435136 Active Capo Poe MD Active ZOLOFT 100 MG TABS 1 po daily SERTRALINE HCL 41294296610 No Longer Active Zoran Arzola MD Active FERROUS SULFATE 325 (65 FE) MG TABS 1 tablet by mouth daily FERROUS SULFATE 08493925708 No Longer Active Capo Poe MD Active TRAMADOL HCL 50 MG TABS 1-2 tablets every 6 hours as needed for pain TRAMADOL HCL 83200649349 Active Capo Poe MD Active HYDROCODONE-ACETAMINOPHEN 7.5-300 MG TABS take one every six hours HYDROCODONE-ACETAMINOPHEN 54732255240 No Longer Active Capo Poe MD Active TRIAMCINOLONE ACETONIDE 0.1 % OINT Apply to affected areas TID for up to 2 weeks TRIAMCINOLONE ACETONIDE 01930900056 No Longer Active Joe Vargas RN Active FERROUS SULFATE 325 (65 FE) MG TABS Take one by mouth daily FERROUS SULFATE 73810566277 No Longer Active Capo Poe MD Active TRIAMCINOLONE ACETONIDE 0.1 % OINT Apply to affected areas TID for up to 2 weeks TRIAMCINOLONE ACETONIDE 42088680540 No Longer Active Capo Poe MD Active ADULT ASPIRIN LOW STRENGTH 81 MG TBDP qd ASPIRIN 75843942820 Active Zoran Arzola MD Active ALEVE 220 MG TAB prn NAPROXEN SODIUM 53981932918 Active Capo Poe MD Active LISINOPRIL-HYDROCHLOROTHIAZIDE 10-12.5 MG TABS 1 tab by mouth daily LISINOPRIL-HYDROCHLOROTHIAZIDE 85862772085 Active Capo Poe MD Active MACROBID 100 MG CAP 1 cap by mouth twice daily NITROFURANTOIN MONOHYD MACRO 50978287088 No Longer Active Dona Becker Active AZITHROMYCIN 250 MG TABS 2 po qd x 1 day, then 1 po qd x 4 days AZITHROMYCIN 26391995306 No Longer Active Capo Poe MD Active FISH OIL 500 MG CAPS by mouth twice a day OMEGA-3 FATTY ACIDS 07916045014 Active Capo Poe MD Active FLAXSEED OIL 1000 MG CAPS Take two by mouth daily FLAXSEED (LINSEED) 16244153398 Active Zoran Arzola MD Active RED YEAST RICE 600 MG CAPS Take two by mouth daily RED YEAST RICE EXTRACT 36479724170 Active Zoran Arzola MD Active MULTIVITAMINS CAPS Take one by mouth daily MULTIPLE VITAMIN 67548858468 Active Zoran Arzola MD Active ICAPS MV TABS 2 po daily MULTIPLE VITAMINS-MINERALS 67575619775 Active Jam Arnold DO Active MACROBID 100 MG CAP 1 cap by mouth twice daily MACROBID 100 MG CAP 445715 NITROFURANTOIN MONOHYD MACRO Inactive FERROUS SULFATE 325 (65 FE) MG TABS Take one by mouth daily FERROUS SULFATE 325 (65 FE) MG TABS 544849 FERROUS SULFATE Inactive HYDROCODONE-ACETAMINOPHEN 7.5-300 MG TABS take one every six hours HYDROCODONE-ACETAMINOPHEN 7.5-300 MG TABS 237055 HYDROCODONE- ACETAMINOPHEN Inactive FERROUS SULFATE 325 (65 FE) MG TABS 1 tablet by mouth daily FERROUS SULFATE 325 (65 FE) MG TABS 402583 FERROUS SULFATE Inactive ZOLOFT 100 MG TABS 1 po daily ZOLOFT 100 MG TABS 306842 SERTRALINE HCL Inactive AZITHROMYCIN 250 MG TABS 2 po qd x 1 day, then 1 po qd x 4 days AZITHROMYCIN 250 MG TABS 0905534 AZITHROMYCIN Inactive TRIAMCINOLONE ACETONIDE 0.1 % OINT Apply to affected areas TID for up to 2 weeks TRIAMCINOLONE ACETONIDE 0.1 % OINT 2064782 TRIAMCINOLONE ACETONIDE Inactive TRIAMCINOLONE ACETONIDE 0.1 % OINT Apply to affected areas TID for up to 2 weeks TRIAMCINOLONE ACETONIDE 0.1 % OINT 9166082 TRIAMCINOLONE ACETONIDE Inactive Advance Directives Directive Description [...] 10*3/mm3 Lab Report: CBC W/DIFF - Hematology lymphocytes as percent of blood leukocytes 16.4 % 20.5-51.1 erythrocyte (RBC) count 4.12 10^6/MM^3 10*6/mm3 4.69-6.13 hemoglobin, blood 13.2 g/dL 13.5-17.5 leukocyte count, blood 8.2 10^3/MM^3 10*3/mm3 4.6-10.2 hematocrit, blood 39.4 % 41.0-53.0 neutrophils as percent of blood leukocytes 74.8 % 42.2-75.2 monocytes as percent of blood leukocytes 5.8 % 1.7-9.3 mean corpuscular volume, RBC 96 fL 80-97 mean corpuscular hemoglobin, RBC 32.0 pg 27.0-31.2 mean corpuscular hemoglobin concentration, RBC 33.5 G/DL % 31.8- 35.4 red blood cell distribution width 14.0 % 11.6-14.8 platelet count 234 10^3/MM^3 10*3/mm3 142-424 Lab Report: CBC W/DIFF, Comp. Metabolic Panel - Chemistry sodium, serum 140 mmol/L 903-504 5648/05/21 potassium, serum 4.0 mmol/L 3.5-5.2 chloride, serum [...] CBC W/DIFF, Comp. Metabolic Panel - Hematology hemoglobin, blood 13.1 g/dL 13.5-17.5 hematocrit, blood 39.2 % 41.0-53.0 mean corpuscular volume, RBC 94 fL 80-97 mean corpuscular hemoglobin, RBC 31.6 pg 27.0-31.2 mean corpuscular hemoglobin concentration, RBC 33.5 G/DL % 31.8- 35.4 red blood cell distribution width 14.8 % 11.6-14.8 platelet count 245 10^3/MM^3 10*3/mm3 011-139 8831/05/21 erythrocyte (RBC) count 4.15 10^6/MM^3 10*6/mm3 4.69-6.13 lymphocytes as percent of blood leukocytes 18.0 % 20.5-51.1 monocytes as percent of blood leukocytes 6.2 % 1.7-9.3 neutrophils as percent of blood leukocytes 72.8 % 42.2-75.2 leukocyte count, blood 7.6 10^3/MM^3 10*3/mm3 4.6-10.2 Lab Report: HGBA1C, CBC - Chemistry hemoglobin [...] - Chemistry potassium, serum 5.0 mmol/L 3.5-5.2 cholesterol, serum 207 mg/dL 068-729 7496/02/11 triglyceride, serum, fasting 74 mg/dL 30-200 HDL cholesterol, serum 62 mg/dL 32-96 LDL cholesterol, serum 130 mg/dL 0-130 sodium, serum 144 mmol/L 764-575 3499/02/11 chloride, serum 105 mmol/L 98-107 carbon dioxide, [...] (patient) 11.5 SECS s 11.1-13.4 Office Visit: Follow up - Chemistry RBC, [...] negative Encounters Code Encounter Date Provider Facility CPT-86678 Level 3 Est. Patient 08:20:19 CDT Zoran Arzola MD [facility] CPT-85225 Level 3 Est. Patient 09:22:21 CDT Capo Poe MD [facility] CPT-14252 Level 4 Est. Patient 10:21:30 [employer] Capo Poe MD [facility] CPT-67527 Level 3 Est. Patient 17:08:51 [employer] Zoran Arzola MD [facility] CPT-11191 Level 4 Est. Patient 09:44:42 CDT Capo Poe MD [facility] CPT-83067 Level 4 Est. Patient 10:39:29 CDT Capo Poe MD [facility] CPT-29094 Level 3 Est. Patient 17:45:23 CDT Zoran Arzola MD [facility] CPT-25179 Level 4 Est. Patient 08:50:44 CDT Capo Poe MD [facility] CPT-55185 Level 3 Est. Patient 10:39:51 [employer] Capo Poe MD [facility] CPT-88332 Level 4 Est. Patient 09:44:24 [employer] Capo Poe MD [facility] CPT-84089 Level 3 Est. Patient 14:48:42 [employer] Zoran Arzola MD [facility] CPT-85204 Level 4 Est. Patient 10:24:02 CDT Capo Poe MD [facility] CPT-22316 Level 3 Est. [facility]42[facility] Level 4 Est. Patient 13:34:15 CDT Capo Poe MD [facility] CPT-80643 Level 3 Est. Patient 15:32:10 [employer] Zoran Arzola MD [facility] CPT-56726 Level 3 New Patient 17:17:19 [employer] Zoran Arzola MD [facility] CPT-92716 Level 4 Est. Patient 10:25:01 [employer] Capo Poe MD [facility] CPT-07332 Level 3 Est. Patient 10:10:42 CDT Zoran Arzola MD [facility] CPT-64508 Level 3 Est. Patient 22:30:02 CDT Zoran Arzola MD [facility] CPT-62093 Level 4 Est. Patient 09:54:20 CDT Capo Poe MD [facility] CPT-32448 Level 3 Est. Patient 10:48:30 CDT Capo Poe MD [facility] CPT-69447 Level 3 Est. Patient 11:24:45 CDT Capo Poe MD [facility] CPT-85422 Level 3 Est. Patient 15:23:48 [employer] Capo Poe MD [facility] CPT-99029 Level 3 Est. Patient 15:10:03 [employer] Capo Poe MD [facility] CPT-03218 Level 3 Est. Patient 16:18:40 CDT Zoran Arzola MD [facility] Procedures Code Procedure Name Date Entry Date Standard Description CPT-34124 Hip comp min 2V 10:27:18 [employer] CPT-94353 Urine Dip (Floor Use Only) 13:41:01 [employer] CPT-04850 Postop F/U Visit 11:17:48 CDT CPT-LR Lesion Removal 11:50:22 CDT CPT-OV Office Visit 11:50:22 CDT CPT-64242 Pneumovax 23 10:55:48 CDT CPT-07044 Administration single or combination vaccine inc oral 10 :55:48 CDT CPT-Cryo Cryotherapy 11:18:11 CDT CPT-OV Office Visit 11:18:11 CDT CPT-06252 LS spine AP and Lat 09:05:22 CDT CPT-72817 Bladder Scan 15:42:00 CDT CPT-12164 Cystoscopy 15:42:00 CDT CPT-OV Office Visit 16:37:19 [employer] CPT-55395 Bladder Scan 15:32:10 [employer] CPT-94468 Cystoscopy 15:32:10 [employer] CPT-05190 Abd single AP View 14:05:59 [employer] CPT-88202 Pill cam small bowel 09:48:39 [employer] CPT-13148 Urine Dip (Floor Use Only) 17:17:19 [employer] CPT-07067 Bladder Scan 17:17:19 [employer] CPT-OV Office Visit 11:50:26 [employer] CPT-14003 Bladder Scan 10:10:42 CDT CPT-20407 Venipuncture Draw Fee 09:14:04 CDT CPT-73155 Chest 2V Frontal and Lat 10:10:49 CDT CPT-01624 LS spine comp w obliq 11:50:11 CDT CPT-07225 Venipuncture Draw Fee 08:52:57 [employer] CPT-70339 Cystoscopy W/rem FB 18:37:28 CDT CPT-56579 Abd single AP View 16:18:40 CDT CPT-64779 Abd compl w upright 17:30:59 CDT
--- OUTSIDE RECORDS SUMMARY | 2016-11-22 17:10 | XMS REPORT | Clinical Summary ---
Author Author Admin, MARGE Organization [facility] Address Unknown Phone Unavailable Allergies, Adverse Reactions, [...] MG/24HR TRANS PT24 Apply/Change q 24hr NICOTINE 95016301913 Active Capo Poe MD Active WELLBUTRIN SR 150 MG ORAL [id number] 1 po qd x 3 days, then 1 po BID BUPROPION HCL 31204101934 Active Capo Poe MD Active LORTAB 7.5-325 MG ORAL TABS 1 po q 6 hr prn pain HYDROCODONE- ACETAMINOPHEN 36628789379 Active Capo Poe MD Active FLOMAX 0.4 MG CAPS Take one by mouth daily TAMSULOSIN HCL 35020054904 Active Capo Poe MD Active MIRALAX PACK 1 po qd PRN Constipation POLYETHYLENE GLYCOL 3350 26627311129 Active Capo Poe MD Active DULERA 100-5 MCG/ACT AERO 2 puffs BID MOMETASONE FURO- FORMOTEROL FUM 12074525372 Active Capo Poe MD Active SERTRALINE HCL 100 MG ORAL TABS take 1 tab daily SERTRALINE HCL 27116018152 Active Capo Poe MD Active ZOLOFT 100 MG TABS 1 po daily SERTRALINE HCL 44645010519 No Longer Active Zoran Arzola MD Active FERROUS SULFATE 325 (65 FE) MG TABS 1 tablet by mouth daily FERROUS SULFATE 22675711516 No Longer Active Capo Poe MD Active TRAMADOL HCL 50 MG TABS 1-2 tablets every 6 hours as needed for pain TRAMADOL HCL 10201947141 Active Capo Poe MD Active HYDROCODONE-ACETAMINOPHEN 7.5-300 MG TABS take one every six hours HYDROCODONE-ACETAMINOPHEN 87718830319 No Longer Active Capo Poe MD Active TRIAMCINOLONE ACETONIDE 0.1 % OINT Apply to affected areas TID for up to 2 weeks TRIAMCINOLONE ACETONIDE 34147728885 No Longer Active Joe Vargas RN Active FERROUS SULFATE 325 (65 FE) MG TABS Take one by mouth daily FERROUS SULFATE 36893231608 No Longer Active Capo Poe MD Active TRIAMCINOLONE ACETONIDE 0.1 % OINT Apply to affected areas TID for up to 2 weeks TRIAMCINOLONE ACETONIDE 66109336895 No Longer Active Capo Poe MD Active ADULT ASPIRIN LOW STRENGTH 81 MG TBDP qd ASPIRIN 75700227817 Active Zoran Arzola MD Active ALEVE 220 MG TAB prn NAPROXEN SODIUM 45844717355 Active Capo Poe MD Active LISINOPRIL-HYDROCHLOROTHIAZIDE 10-12.5 MG TABS 1 tab by mouth daily LISINOPRIL-HYDROCHLOROTHIAZIDE 57254186424 Active Capo Peo MD Active MACROBID 100 MG CAP 1 cap by mouth twice daily NITROFURANTOIN MONOHYD MACRO 34914026610 No Longer Active Dona Becker Active AZITHROMYCIN 250 MG TABS 2 po qd x 1 day, then 1 po qd x 4 days AZITHROMYCIN 23052746775 No Longer Active Capo Poe MD Active FISH OIL 500 MG CAPS by mouth twice a day OMEGA-3 FATTY ACIDS 60635113262 Active Capo Poe MD Active FLAXSEED OIL 1000 MG CAPS Take two by mouth daily FLAXSEED (LINSEED) 87568395558 Elza Arzola MD Active RED YEAST RICE 600 MG CAPS Take two by mouth daily RED YEAST RICE EXTRACT 98302450573 Active Zoran Arzola MD Active MULTIVITAMINS CAPS Take one by mouth daily MULTIPLE VITAMIN 62507178846 Active Zoran Arzola MD Active ICAPS MV TABS 2 po daily MULTIPLE VITAMINS-MINERALS 32506336484 Active Jam Arnold DO Active MACROBID 100 MG CAP 1 cap by mouth twice daily MACROBID 100 MG CAP 1101571 NITROFURANTOIN MONOHYD MACRO Inactive FERROUS SULFATE 325 (65 FE) MG TABS Take one by mouth daily FERROUS SULFATE 325 (65 FE) MG TABS 991610 FERROUS SULFATE Inactive HYDROCODONE-ACETAMINOPHEN 7.5-300 MG TABS take one every six hours HYDROCODONE-ACETAMINOPHEN 7.5-300 MG TABS 957164 HYDROCODONE- ACETAMINOPHEN Inactive FERROUS SULFATE 325 (65 FE) MG TABS 1 tablet by mouth daily FERROUS SULFATE 325 (65 FE) MG TABS 575406 FERROUS SULFATE Inactive ZOLOFT 100 MG TABS 1 po daily ZOLOFT 100 MG TABS 670004 SERTRALINE HCL Inactive AZITHROMYCIN 250 MG TABS 2 po qd x 1 day, then 1 po qd x 4 days AZITHROMYCIN 250 MG TABS 1135250 AZITHROMYCIN Inactive TRIAMCINOLONE ACETONIDE 0.1 % OINT Apply to affected areas TID for up to 2 weeks TRIAMCINOLONE ACETONIDE 0.1 % OINT 1664495 TRIAMCINOLONE ACETONIDE Inactive TRIAMCINOLONE ACETONIDE 0.1 % OINT Apply to affected areas TID for up to 2 weeks TRIAMCINOLONE ACETONIDE 0.1 % OINT 2598842 TRIAMCINOLONE ACETONIDE Inactive Advance Directives Directive Description Start Date PERMISSION TO SHARE Immunizations Vaccine Administration Date Value Standard Description pneumococcal immunization administered Pneumovax 23 [CVX33] pneumococcal polysaccharide vaccine, 23 valent Vital Signs Date Name Value Unit Range Description blood pressure, diastolic - 8462-4 68 mm[Hg] BP ausitn blood pressure, systolic - 8480-6 112 mm[Hg] [...] Panel - Chemistry sodium, serum 139 mmol/L 744-641 7587/07/30 potassium, serum 4.7 mmol/L 3.5-5.2 chloride, serum [...] CBC - Chemistry cholesterol, serum 207 mg/dL 289-438 6977/02/11 triglyceride, serum, fasting 74 mg/dL 30-200 HDL cholesterol, serum 62 mg/dL 32-96 LDL cholesterol, serum 130 mg/dL 0-130 sodium, serum 144 mmol/L 707-738 7153/02/11 potassium, serum 5.0 mmol/L 3.5-5.2 chloride, serum [...] negative Encounters Code Encounter Date Provider Facility CPT-92346 Level 3 Est. Patient 09:27:01 CDT Capo Poe MD [facility] CPT-96046 Level 3 Est. Patient 18:37:08 CDT Zoran Arzola MD [facility] CPT-61885 Level 3 Est. Patient 15:00:28 CDT Capo Poe MD [facility] CPT-98429 Level 3 Est. Patient 08:20:19 CDT Zoran Arzola MD [facility] CPT-57363 Level 3 Est. Patient 09:22:21 CDT Capo Poe MD [facility] CPT-69034 Level 4 Est. Patient 10:21:30 MARKETING UNDERWRITER Capo Poe MD [facility] CPT-39503 Level 3 Est. Patient 17:08:51 MARKETING UNDERWRITER Zoran Arzola MD [facility] CPT-77158 Level 4 Est. Patient 09:44:42 CDT Capo Poe MD [facility] CPT-08615 Level 4 Est. Patient 10:39:29 CDT Capo Poe MD [facility] CPT-69568 Level 3 Est. Patient 17:45:23 CDT Zoran Arzola MD [facility] CPT-35459 Level 4 Est. Patient 08:50:44 CDT Capo Poe MD [facility] CPT-63420 Level 3 Est. Patient 10:39:51 MARKETING UNDERWRITER Capo Poe MD [facility] CPT-06531 Level 4 Est. Patient 09:44:24 MARKETING UNDERWRITER Capo Poe MD [facility] CPT-80369 Level 3 Est. Patient 14:48:42 MARKETING UNDERWRITER Zoran Arzola MD [facility] CPT-94557 Level 4 Est. Patient 10:24:02 CDT Capo Poe MD [facility] CPT-95476 Level 3 Est. Patient 15:42:00 CDT Maya WRIGHTP [facility] CPT-68459 Level 4 Est. Patient 13:34:15 CDT Capo Poe MD [facility] CPT-96411 Level 3 Est. Patient 15:32:10 MARKETING UNDERWRITER Zoran Arzola MD [facility] CPT-95113 Level 3 New Patient 17:17:19 MARKETING UNDERWRITER Zoran Arzola MD [facility] CPT-40406 Level 4 Est. Patient 10:25:01 MARKETING UNDERWRITER Capo Poe MD [facility] CPT-26329 Level 3 Est. Patient 10:10:42 CDT Zoran Arzola MD [facility] CPT-78108 Level 3 Est. Patient 22:30:02 CDT Zoran Arzola MD [facility] CPT-32741 Level 4 Est. Patient 09:54:20 CDT Capo Poe MD [facility] CPT-09196 Level 3 Est. Patient 10:48:30 CDT Capo Poe MD [facility] CPT-61305 Level 3 Est. Patient 11:24:45 CDT aCpo Poe MD [facility] CPT-29284 Level 3 Est. Patient 15:23:48 MARKETING UNDERWRITER Capo Poe MD [facility] CPT-64550 Level 3 Est. Patient 15:10:03 MARKETING UNDERWRITER Capo Poe MD [facility] CPT-89461 Level 3 Est. Patient 16:18:40 CDT Zoran Arzola MD [facility] Procedures Code Procedure Name Date Entry Date Standard Description CPT-22534 Venipuncture Draw Fee 10:58:22 CDT CPT-13112 Abd single AP View 08:32:00 CDT CPT-83406 Postop F/U Visit 21:13:08 CDT CPT-73058 Abd single AP View 15:50:24 CDT CPT-10431 Cystoscopy W/rem FB 15:21:28 CDT CPT-81521 Abd single AP View 14:06:45 CDT CPT-04313 Postop F/U Visit 09:48:32 CDT CPT-82709 Abd single AP View 13:58:26 CDT CPT-95295 Hip comp min 2V 10:27:18 MARKETING UNDERWRITER CPT-93810 Urine Dip (Floor Use Only) 13:41:01 MARKETING UNDERWRITER CPT-62158 Postop F/U Visit 11:17:48 CDT CPT-LR Lesion Removal 11:50:22 CDT CPT-OV Office Visit 11:50:22 CDT CPT-55430 Pneumovax 23 10:55:48 CDT CPT-44473 Administration single or combination vaccine inc oral 10 :55:48 CDT CPT-Cryo Cryotherapy 11:18:11 CDT CPT-OV Office Visit 11:18:11 CDT CPT-18133 LS spine AP and Lat 09:05:22 CDT CPT-18642 Bladder Scan 15:42:00 CDT CPT-62077 Cystoscopy 15:42:00 CDT CPT-OV Office Visit 16:37:19 MARKETING UNDERWRITER CPT-30982 Bladder Scan 15:32:10 MARKETING UNDERWRITER CPT-00823 Cystoscopy 15:32:10 MARKETING UNDERWRITER CPT-56545 Abd single AP View 14:05:59 MARKETING UNDERWRITER CPT-82196 Pill cam small bowel 09:48:39 MARKETING UNDERWRITER CPT-17165 Urine Dip (Floor Use Only) 17:17:19 MARKETING UNDERWRITER CPT-46438 Bladder Scan 17:17:19 MARKETING UNDERWRITER CPT-OV Office Visit 11:50:26 MARKETING UNDERWRITER CPT-67246 Bladder Scan 10:10:42 CDT CPT-17825 Venipuncture Draw Fee 09:14:04 CDT CPT-34561 Chest 2V Frontal and Lat 10:10:49 CDT CPT-50095 LS spine comp w obliq 11:50:11 CDT CPT-84916 Venipuncture Draw Fee 08:52:57 MARKETING UNDERWRITER CPT-88264 Cystoscopy W/rem FB 18:37:28 CDT CPT-90449 Abd single AP View 16:18:40 CDT CPT-83686 Abd compl w upright 17:30:59 CDT
--- OUTSIDE RECORDS SUMMARY | 2016-11-22 17:11 | XMS REPORT | Clinical Summary ---
Author Author Admin, MARGE Organization [facility] Address Unknown Phone Unavailable Allergies, Adverse [...] Unspecified essential hypertension HEALTH SCREENING V70.0 Resolved Fiasal Nagy MD Routine general medical examination at [...] Capo Poe MD Other specified pruritic conditions CALCULUS OF KIDNEY ICD-592.0 Inactive Capo Poe [...] TRACT INFECTION ICD-599.0 Inactive Capo Poe MD NAUSEA AND VOMITING ICD-787.01 Inactive Capo Poe MD U T I-RECURRENT [...] 1 po q6hr PRN Itching HYDROXYZINE HCL 79424387426 Active Capo Poe MD Active TRIAMCINOLONE ACETONIDE 0.1 % CREA Apply to affected areas TID for up to 2 weeks TRIAMCINOLONE ACETONIDE 71722222665 Active Capo Poe MD Active NICOTINE 14 MG/24HR TRANS PT24 Apply/Change q 24hr NICOTINE 91460597708 No Longer Active Capo Poe MD Active TRAMADOL HCL 50 MG TABS 1-2 tablets every 6 hours as needed for pain TRAMADOL HCL 16136493924 No Longer Active Capo Poe MD Active SERTRALINE HCL 100 MG ORAL TABS take 1 tab daily SERTRALINE HCL 57745137238 No Longer Active Capo Poe MD Active LISINOPRIL-HYDROCHLOROTHIAZIDE 10-12.5 MG TABS 0.5 tab by mouth daily LISINOPRIL-HYDROCHLOROTHIAZIDE 38424583816 Active Capo Poe MD Active OMEPRAZOLE 20 MG CPDR 1 tablet by mouth daily OMEPRAZOLE 49936377822 Active Capo Poe MD Active WELLBUTRIN SR 150 MG ORAL [id number] 1 po BID BUPROPION HCL 49006068015 Active Capo Poe MD Active LORTAB 7.5-325 MG ORAL TABS 1 po q 6 hr prn pain HYDROCODONE- ACETAMINOPHEN 55660712723 Active Capo Poe MD Active FLOMAX 0.4 MG CAPS Take one by mouth daily TAMSULOSIN HCL 92735976126 Active Capo Poe MD Active MIRALAX PACK 1 po qd PRN Constipation POLYETHYLENE GLYCOL 3350 74690021878 Active Capo Poe MD Active DULERA 100-5 MCG/ACT AERO 2 puffs BID MOMETASONE FURO- FORMOTEROL FUM 99339668241 Active Capo Poe MD Active ZOLOFT 100 MG TABS 1 po daily SERTRALINE HCL 27744734239 No Longer Active Zoran Arzola MD Active FERROUS SULFATE 325 (65 FE) MG TABS 1 tablet by mouth daily FERROUS SULFATE 83198570455 No Longer Active Capo Poe MD Active HYDROCODONE-ACETAMINOPHEN 7.5-300 MG TABS take one every six hours HYDROCODONE-ACETAMINOPHEN 04615104282 No Longer Active Capo Poe MD Active TRIAMCINOLONE ACETONIDE 0.1 % OINT Apply to affected areas TID for up to 2 weeks TRIAMCINOLONE ACETONIDE 36994647721 No Longer Active Joe Vargas RN Active FERROUS SULFATE 325 (65 FE) MG TABS Take one by mouth daily FERROUS SULFATE 53280279139 No Longer Active Capo Poe MD Active TRIAMCINOLONE ACETONIDE 0.1 % OINT Apply to affected areas TID for up to 2 weeks TRIAMCINOLONE ACETONIDE 19501824951 No Longer Active Capo Poe MD Active ADULT ASPIRIN LOW STRENGTH 81 MG TBDP qd ASPIRIN 44521317886 Active Zoran Arzola MD Active ALEVE 220 MG TAB prn NAPROXEN SODIUM 75432640785 Active Capo Poe MD Active MACROBID 100 MG CAP 1 cap by mouth twice daily NITROFURANTOIN MONOHYD MACRO 09260187678 No Longer Active Dona Becker Active AZITHROMYCIN 250 MG TABS 2 po qd x 1 day, then 1 po qd x 4 days AZITHROMYCIN 57128034480 No Longer Active Capo Poe MD Active FISH OIL 500 MG CAPS by mouth twice a day OMEGA-3 FATTY ACIDS 93987429406 Active Capo Poe MD Active FLAXSEED OIL 1000 MG CAPS Take two by mouth daily FLAXSEED (LINSEED) 28150833262 Active Zoran Arzola MD Active RED YEAST RICE 600 MG CAPS Take two by mouth daily RED YEAST RICE EXTRACT 40904571469 Active Zoran Arzola MD Active MULTIVITAMINS CAPS Take one by mouth daily MULTIPLE VITAMIN 55169530626 Active Zoran Arzola MD Active ICAPS MV TABS 2 po daily MULTIPLE VITAMINS-MINERALS 43569540617 Active Jam Arnold DO Active MACROBID 100 MG CAP 1 cap by mouth twice daily MACROBID 100 MG CAP 4559920 NITROFURANTOIN MONOHYD MACRO Inactive FERROUS SULFATE 325 (65 FE) MG TABS Take one by mouth daily FERROUS SULFATE 325 (65 FE) MG TABS 554081 FERROUS SULFATE Inactive HYDROCODONE-ACETAMINOPHEN 7.5-300 MG TABS take one every six hours HYDROCODONE-ACETAMINOPHEN 7.5-300 MG TABS 832064 HYDROCODONE- ACETAMINOPHEN Inactive FERROUS SULFATE 325 (65 FE) MG TABS 1 tablet by mouth daily FERROUS SULFATE 325 (65 FE) MG TABS 016549 FERROUS SULFATE Inactive ZOLOFT 100 MG TABS 1 po daily ZOLOFT 100 MG TABS 911369 SERTRALINE HCL Inactive SERTRALINE HCL 100 MG ORAL TABS take 1 tab daily SERTRALINE HCL 100 MG ORAL TABS 823274 SERTRALINE HCL Inactive TRAMADOL HCL 50 MG TABS 1-2 tablets every 6 hours as needed for pain TRAMADOL HCL 50 MG TABS 481172 TRAMADOL HCL Inactive NICOTINE 14 MG/24HR TRANS PT24 Apply/Change q 24hr NICOTINE 14 MG/24HR TRANS PT24 055837 NICOTINE Inactive AZITHROMYCIN 250 MG TABS 2 po qd x 1 day, then 1 po qd x 4 days AZITHROMYCIN 250 MG TABS 0971837 AZITHROMYCIN Inactive TRIAMCINOLONE ACETONIDE 0.1 % OINT Apply to affected areas TID for up to 2 weeks TRIAMCINOLONE ACETONIDE 0.1 % OINT 4169705 TRIAMCINOLONE ACETONIDE Inactive TRIAMCINOLONE ACETONIDE 0.1 % OINT Apply to affected areas TID for up to 2 weeks TRIAMCINOLONE ACETONIDE 0.1 % OINT 8097067 TRIAMCINOLONE ACETONIDE Inactive Advance Directives Directive Description [...] Panel - Chemistry sodium, serum 139 mmol/L 440-313 2742/07/30 potassium, serum 4.7 mmol/L 3.5-5.2 chloride, serum 101 mmol/L 98-107 carbon dioxide, venous blood 34.8 mmol/L 21.0-32.0 blood glucose 124 mg/dL 65-110 calcium, serum 8.9 mg/dL 8.5-10.1 urea nitrogen, blood 18 mg/dL 7-18 creatinine, serum 1.40 mg/dL 0.60-1.30 Lab Report: Lipid Panel, Comp. Metabolic Panel, CBC - Chemistry cholesterol, serum 207 mg/dL 793-216 6353/02/11 triglyceride, serum, fasting 74 mg/dL 30-200 HDL cholesterol, serum 62 mg/dL 32-96 LDL cholesterol, serum 130 mg/dL 0-130 sodium, serum 144 mmol/L 928-930 1160/02/11 potassium, serum 5.0 mmol/L 3.5-5.2 chloride, serum [...] negative Encounters Code Encounter Date Provider Facility CPT-01549 Level 3 Est. Patient 14:59:32 METAL MILLING MACHINE OPERATOR Capo Poe MD [facility] CPT-70379 Level 4 Est. Patient 10:46:15 METAL MILLING MACHINE OPERATOR Capo Poe MD [facility] CPT-04729 Level 3 Est. Patient 11:00:53 CDT Capo Poe MD [facility] CPT-28022 Level 3 Est. Patient 09:39:35 CDT Capo Poe MD [facility] CPT-13789 Level 3 Est. Patient 09:27:01 CDT Capo Poe MD [facility] CPT-93500 Level 3 Est. Patient 18:37:08 CDT Zoran Arzola MD [facility] CPT-97085 Level 3 Est. Patient 15:00:28 CDT Capo Poe MD [facility] CPT-38795 Level 3 Est. Patient 08:20:19 CDT Zoran Arzola MD [facility] CPT-17572 Level 3 Est. Patient 09:22:21 CDT Capo Poe MD [facility] CPT-42794 Level 4 Est. Patient 10:21:30 METAL MILLING MACHINE OPERATOR Capo Poe MD [facility] CPT-79006 Level 3 Est. Patient 17:08:51 METAL MILLING MACHINE OPERATOR Zoran Arzola MD [facility] CPT-36260 Level 4 Est. Patient 09:44:42 CDT Capo Poe MD [facility] CPT-86439 Level 4 Est. Patient 10:39:29 CDT Capo Poe MD [facility] CPT-60855 Level 3 Est. Patient 17:45:23 CDT Zoran Arzola MD [facility] CPT-98760 Level 4 Est. Patient 08:50:44 CDT Capo Poe MD [facility] CPT-13932 Level 3 Est. Patient 10:39:51 METAL MILLING MACHINE OPERATOR Capo Poe MD [facility] CPT-37245 Level 4 Est. Patient 09:44:24 METAL MILLING MACHINE OPERATOR Capo Poe MD [facility] CPT-86664 Level 3 Est. Patient 14:48:42 METAL MILLING MACHINE OPERATOR Zoran Arzola MD [facility] CPT-56574 Level 4 Est. Patient 10:24:02 CDT Capo Poe MD [facility] CPT-64851 Level 3 Est. Patient 15:42:00 CDT Maya WRIGHTP [facility] CPT-93641 Level 4 Est. Patient 13:34:15 CDT Capo Poe MD [facility] CPT-07747 Level 3 Est. Patient 15:32:10 METAL MILLING MACHINE OPERATOR Zoran Arzola MD [facility] CPT-90539 Level 3 New Patient 17:17:19 METAL MILLING MACHINE OPERATOR Zoran Arzola MD [facility] CPT-49365 Level 4 Est. Patient 10:25:01 METAL MILLING MACHINE OPERATOR Capo Poe MD [facility] CPT-13438 Level 3 Est. Patient 10:10:42 CDT Zoran Arzola MD [facility] CPT-34605 Level 3 Est. Patient 22:30:02 CDT Zoran Arzola MD [facility] CPT-35606 Level 4 Est. Patient 09:54:20 CDT Capo Poe MD [facility] CPT-89271 Level 3 Est. Patient 10:48:30 CDT Capo Poe MD [facility] CPT-75147 Level 3 Est. Patient 11:24:45 CDT Capo Poe MD [facility] CPT-11908 Level 3 Est. Patient 15:23:48 METAL MILLING MACHINE OPERATOR Capo Poe MD [facility] CPT-87253 Level 3 Est. Patient 15:10:03 METAL MILLING MACHINE OPERATOR Capo Poe MD [facility] CPT-64485 Level 3 Est. Patient 16:18:40 CDT Zoran Arzola MD [facility] Procedures Code Procedure Name Date Entry Date Standard Description CPT-01575 Venipuncture Draw Fee 14:30:06 CDT CPT-77959 Venipuncture Draw Fee 10:58:22 CDT CPT-75215 Abd single AP View 08:32:00 CDT CPT-56861 Postop F/U Visit 21:13:08 CDT CPT-49893 Abd single AP View 15:50:24 CDT CPT-61340 Cystoscopy W/rem FB 15:21:28 CDT CPT-75211 Abd single AP View 14:06:45 CDT CPT-01247 Postop F/U Visit 09:48:32 CDT CPT-77049 Abd single AP View 13:58:26 CDT CPT-79930 Hip comp min 2V 10:27:18 METAL MILLING MACHINE OPERATOR CPT-35053 Urine Dip (Floor Use Only) 13:41:01 METAL MILLING MACHINE OPERATOR CPT-87447 Postop F/U Visit 11:17:48 CDT CPT-LR Lesion Removal 11:50:22 CDT CPT-OV Office Visit 11:50:22 CDT CPT-75032 Pneumovax 23 10:55:48 CDT CPT-59263 Administration single or combination vaccine inc oral 10 :55:48 CDT CPT-Cryo Cryotherapy 11:18:11 CDT CPT-OV Office Visit 11:18:11 CDT CPT-79031 LS spine AP and Lat 09:05:22 CDT CPT-01146 Bladder Scan 15:42:00 CDT CPT-85650 Cystoscopy 15:42:00 CDT CPT-OV Office Visit 16:37:19 METAL MILLING MACHINE OPERATOR CPT-83298 Bladder Scan 15:32:10 METAL MILLING MACHINE OPERATOR CPT-20224 Cystoscopy 15:32:10 METAL MILLING MACHINE OPERATOR CPT-00040 Abd single AP View 14:05:59 METAL MILLING MACHINE OPERATOR CPT-61580 Pill cam small bowel 09:48:39 METAL MILLING MACHINE OPERATOR CPT-02695 Urine Dip (Floor Use Only) 17:17:19 METAL MILLING MACHINE OPERATOR CPT-73773 Bladder Scan 17:17:19 METAL MILLING MACHINE OPERATOR CPT-OV Office Visit 11:50:26 METAL MILLING MACHINE OPERATOR CPT-98041 Bladder Scan 10:10:42 CDT CPT-21499 Venipuncture Draw Fee 09:14:04 CDT CPT-73818 Chest 2V Frontal and Lat 10:10:49 CDT CPT-10827 LS spine comp w obliq 11:50:11 CDT CPT-25245 Venipuncture Draw Fee 08:52:57 METAL MILLING MACHINE OPERATOR CPT-42895 Cystoscopy W/rem FB 18:37:28 CDT CPT-88832 Abd single AP View 16:18:40 CDT CPT-09818 Abd compl w upright 17:30:59 CDT
--- OUTSIDE RECORDS SUMMARY | 2016-11-22 17:13 | XMS REPORT ---
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 Problem list No authorized problems tracked for [...] Allergen Category Ingredient Status Reaction Severity Onset Lggcfrq-Fgv-Uor Reductase Inhibitors Drug Allergy Gkocbla-Mcb-Jue Reductase Inhibitors Confirmed or Verified BACK PAIN morphine Drug Allergy morphine Confirmed or Verified Swelling Mild Adult Nitrofurantoin Drug Allergy Nitrofurantoin Confirmed or Verified Immunizations No immunizations recorded for this patient visit Relevant diagnostic tests and/or laboratory data RESULTS Chemistry [id number]:57:00 Result Normal Range Units Sodium 141 134-145 [...] 40-70 % Lymph % 29.6 20-40 % Burnett % 8.0 0-10.0 % Eos % 3.3 0-7.0 % Baso % 1.2 0-2 % Neutro # 5.5 1.5-7.5 103/uL Lymph # 2.8 0.9-4.0 103/uL Burnett # 0.8 0-0.8 103/uL Eos # 0.3 0-0.6 103/uL Baso # 0.1 0-0.1 103/uL Cardiac [id number]:00 Result Normal Range Units CK 101 39-308 [...] patient history should be interpreted with caution. [id number]:10:00 Result Normal Range Units Troponin I < [...] patient history should be interpreted with caution. [id number]:57:00 Result Normal Range Units CK 143 39-308 [...] should be interpreted with caution. 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 Previous status was NH. 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 Homecare instructions et medications are reviewed with patient. vitals obtained. tele monitor is DCd. Pt ambulates off unit, accompanied by this nurse. Pt is transported home via private vehicle with . :01 Cognitive Status Finding Observation Time Oriented To Date 5 Yes :[address] 5 Yes :35 Name 3 Objects 3 Yes :35 Name Object in Rm 2 Yes :35 Recall 3 Objects 3 Yes :35 Repeats a Phrase 1 Yes :35 Follows Verbal Direc 3 Yes : Follows Written Dire 1 Yes : Write a Sentance 1 Yes : Draw an Object 1 Yes :35 Mini Mental Total 25 points :35 Less than 20 Phys not applicable :35 Learning Ability comprehends well :00 Neurological no [id number]:00 Psychological no 28-04-560511:00 Physical no [id number]:00 Hearing no :00 Laryngologist Needed no :00 Sign Language no [id number]:00 Emotional no :00 Vision yes :00 [place] no :00 Financial no :00 Vital signs Type Value Date Respiration Rate 20breaths per minute :42 Pulse 58beats per minute :42 Oxygen Saturation 97% :42 BP Systolic 139mmHg :42 BP Diastolic 68mmHg :42 Temperature 98.3F :42 Height 66inches :35 Weight 140.0LB :35 Social history Type Value Smoking Status CURRENT LIGHT TOBACCO SMOKER Treatment Plan No treatment plan text is available for this visit. Hospital discharge instructions Discharge Date/Time 9/4/15 1100 Accompanied By Relationship spouse/signif other Dismissal Condition good Disposition on DC home Valuables no DC Inst/Educ Give yes Exit Care Educ Given yes Med/Side Effects Rev yes DC Med Rec Rev yes Immun Indicated no PNE Vac 2014 Vaccines Ord Given no Flu Vac 2014 Tetanus Vac Unknown Diet Explained yes Follow up appt appt made (specify) Follow Up Appt D/T 10/22/14 @1057
--- OUTSIDE RECORDS SUMMARY | 2016-11-22 17:13 | XMS REPORT | Clinical Summary ---
Author Author Admin, MARGE Organization [facility] Address Unknown Phone Unavailable Allergies, Adverse Reactions, [...] Hematuria, unspecified U T I-RECURRENT 599.0 Resolved aCpo Poe MD Urinary tract infection, site not [...] 2 puffs BID MOMETASONE FURO- FORMOTEROL FUM 44565476767 Active Capo Poe MD Active SERTRALINE HCL 100 MG ORAL TABS take 1 tab daily SERTRALINE HCL 50373154082 Active Capo Poe MD Active ZOLOFT 100 MG TABS 1 po daily SERTRALINE HCL 86707298080 No Longer Active Zoran Arzola MD Active FERROUS SULFATE 325 (65 FE) MG TABS 1 tablet by mouth daily FERROUS SULFATE 05154838805 No Longer Active Capo Poe MD Active TRAMADOL HCL 50 MG TABS 1-2 tablets every 6 hours as needed for pain TRAMADOL HCL 83640361830 Active Capo Poe MD Active HYDROCODONE-ACETAMINOPHEN 7.5-300 MG TABS take one every six hours HYDROCODONE-ACETAMINOPHEN 45875825785 No Longer Active Capo Poe MD Active TRIAMCINOLONE ACETONIDE 0.1 % OINT Apply to affected areas TID for up to 2 weeks TRIAMCINOLONE ACETONIDE 10332044728 No Longer Active Joe Vargas RN Active FERROUS SULFATE 325 (65 FE) MG TABS Take one by mouth daily FERROUS SULFATE 07204948715 No Longer Active Capo Poe MD Active TRIAMCINOLONE ACETONIDE 0.1 % OINT Apply to affected areas TID for up to 2 weeks TRIAMCINOLONE ACETONIDE 76719487836 No Longer Active Capo Poe MD Active ADULT ASPIRIN LOW STRENGTH 81 MG TBDP qd ASPIRIN 13858446655 Active Zoran Arzola MD Active ALEVE 220 MG TAB prn NAPROXEN SODIUM 44821036527 Active Capo Poe MD Active LISINOPRIL-HYDROCHLOROTHIAZIDE 10-12.5 MG TABS 1 tab by mouth daily LISINOPRIL-HYDROCHLOROTHIAZIDE 59633013667 Active Capo Poe MD Active MACROBID 100 MG CAP 1 cap by mouth twice daily NITROFURANTOIN MONOHYD MACRO 66263682888 No Longer Active Dona Becker Active AZITHROMYCIN 250 MG TABS 2 po qd x 1 day, then 1 po qd x 4 days AZITHROMYCIN 71028424103 No Longer Active Capo Poe MD Active FISH OIL 500 MG CAPS by mouth twice a day OMEGA-3 FATTY ACIDS 00689238012 Active Capo Poe MD Active FLAXSEED OIL 1000 MG CAPS Take two by mouth daily FLAXSEED (LINSEED) 95309280955 Active Zoran Arzola MD Active RED YEAST RICE 600 MG CAPS Take two by mouth daily RED YEAST RICE EXTRACT 91426167901 Active Zoran Arzola MD Active MULTIVITAMINS CAPS Take one by mouth daily MULTIPLE VITAMIN 31963914426 Active Zoran Arzola MD Active ICAPS MV TABS 2 po daily MULTIPLE VITAMINS-MINERALS 38924136213 Active Jam Arnold DO Active MACROBID 100 MG CAP 1 cap by mouth twice daily MACROBID 100 MG CAP 401857 NITROFURANTOIN MONOHYD MACRO Inactive FERROUS SULFATE 325 (65 FE) MG TABS Take one by mouth daily FERROUS SULFATE 325 (65 FE) MG TABS 414041 FERROUS SULFATE Inactive HYDROCODONE-ACETAMINOPHEN 7.5-300 MG TABS take one every six hours HYDROCODONE-ACETAMINOPHEN 7.5-300 MG TABS 870905 HYDROCODONE- ACETAMINOPHEN Inactive FERROUS SULFATE 325 (65 FE) MG TABS 1 tablet by mouth daily FERROUS SULFATE 325 (65 FE) MG TABS 811236 FERROUS SULFATE Inactive ZOLOFT 100 MG TABS 1 po daily ZOLOFT 100 MG TABS 243704 SERTRALINE HCL Inactive AZITHROMYCIN 250 MG TABS 2 po qd x 1 day, then 1 po qd x 4 days AZITHROMYCIN 250 MG TABS 0147017 AZITHROMYCIN Inactive TRIAMCINOLONE ACETONIDE 0.1 % OINT Apply to affected areas TID for up to 2 weeks TRIAMCINOLONE ACETONIDE 0.1 % OINT 8877754 TRIAMCINOLONE ACETONIDE Inactive TRIAMCINOLONE ACETONIDE 0.1 % OINT Apply to affected areas TID for up to 2 weeks TRIAMCINOLONE ACETONIDE 0.1 % OINT 6488982 TRIAMCINOLONE ACETONIDE Inactive Advance Directives Directive Description [...] Description Chart Maintenance: Outside labs entered on [employer] - Chemistry sodium, serum 137 mmol/L potassium, [...] Panel - Chemistry sodium, serum 140 mmol/L 708-396 1963/05/21 potassium, serum 4.0 mmol/L 3.5-5.2 chloride, serum [...] CBC - Chemistry cholesterol, serum 207 mg/dL 084-365 9247/02/11 triglyceride, serum, fasting 74 mg/dL 30-200 HDL cholesterol, serum 62 mg/dL 32-96 LDL cholesterol, serum 130 mg/dL 0-130 sodium, serum 144 mmol/L 244-891 3240/02/11 potassium, serum 5.0 mmol/L 3.5-5.2 chloride, serum [...] negative Encounters Code Encounter Date Provider Facility CPT-89036 Level 3 Est. Patient 08:20:19 CDT Zoran Arzola MD [facility] CPT-93869 Level 3 Est. Patient 09:22:21 CDT Capo Poe MD [facility] CPT-08942 Level 4 Est. Patient 10:21:30 SKIP LOAD DRIVER Capo Poe MD [facility] CPT-86069 Level 3 Est. Patient 17:08:51 SKIP LOAD DRIVER Zoran Arzola MD [facility] CPT-08717 Level 4 Est. Patient 09:44:42 CDT Capo Poe MD [facility] CPT-52878 Level 4 Est. Patient 10:39:29 CDT Capo Poe MD [facility] CPT-94200 Level 3 Est. Patient 17:45:23 CDT Zoran Arzola MD [facility] CPT-46079 Level 4 Est. Patient 08:50:44 CDT Cap[address] P[address] MD [facility] CPT-72731 Level 3 Est. Patient 10:39:51 SKIP LOAD DRIVER Capo Poe MD [facility] CPT-96592 Level 4 Est. Patient 09:44:24 SKIP LOAD DRIVER Capo Poe MD [facility] CPT-18439 Level 3 Est. Patient 14:48:42 SKIP LOAD DRIVER Zoran Arzola MD [facility] CPT-46001 Level 4 Est. Patient 10:24:02 CDT Capo Poe MD [facility] CPT-60383 Level 3 Est. Patient 15:42:00 CDT Maya Brownlee [address]NST [facility] CPT-13030 Level 4 Est. Patient 13:34:15 CDT Capo Poe MD [facility] CPT-50937 Level 3 Est. Patient 15:32:10 SKIP LOAD DRIVER Zoran Arzola MD [facility] CPT-43424 Level 3 New Patient 17:17:19 SKIP LOAD DRIVER Zoran Arzola MD [facility] CPT-22717 Level 4 Est. Patient 10:25:01 SKIP LOAD DRIVER Capo Poe MD [facility] CPT-38279 Level 3 Est. Patient 10:10:42 CDT Zoran Arzola MD [facility] CPT-65320 Level 3 Est. Patient 22:30:02 CDT Zoran Arzola MD [facility] CPT-47105 Level 4 Est. Patient 09:54:20 CDT Capo Poe MD [facility] CPT-89011 Level 3 Est. Patient 10:48:30 CDT Capo Poe MD [facility] CPT-29308 Level 3 Est. Patient 11:24:45 CDT Capo Poe MD [facility] CPT-08501 Level 3 Est. Patient 15:23:48 SKIP LOAD DRIVER Capo Poe MD [facility] CPT-35119 Level 3 Est. Patient 15:10:03 SKIP LOAD DRIVER Capo Poe MD [facility] CPT-65017 Level 3 Est. Patient 16:18:40 CDT Zoran Arzola MD [facility] Procedures Code Procedure Name Date Entry Date Standard Description CPT-89077 Postop F/U Visit 09:48:32 CDT CPT-82509 Abd single AP View 13:58:26 CDT CPT-55876 Hip comp min 2V 10:27:18 SKIP LOAD DRIVER CPT-47157 Urine Dip (Floor Use Only) 13:41:01 SKIP LOAD DRIVER CPT-15045 Postop F/U Visit 11:17:48 CDT CPT-LR Lesion Removal 11:50:22 CDT CPT-OV Office Visit 11:50:22 CDT CPT-37471 Pneumovax 23 10:55:48 CDT CPT-90697 Administration single or combination vaccine inc oral 10 :55:48 CDT CPT-Cryo Cryotherapy 11:18:11 CDT CPT-OV Office Visit 11:18:11 CDT CPT-12970 LS spine AP and Lat 09:05:22 CDT CPT-81779 Bladder Scan 15:42:00 CDT CPT-59885 Cystoscopy 15:42:00 CDT CPT-OV Office Visit 16:37:19 SKIP LOAD DRIVER CPT-97485 Bladder Scan 15:32:10 SKIP LOAD DRIVER CPT-60248 Cystoscopy 15:32:10 SKIP LOAD DRIVER CPT-70469 Abd single AP View 14:05:59 SKIP LOAD DRIVER CPT-06415 Pill cam small bowel 09:48:39 SKIP LOAD DRIVER CPT-04798 Urine Dip (Floor Use Only) 17:17:19 SKIP LOAD DRIVER CPT-59051 Bladder Scan 17:17:19 SKIP LOAD DRIVER CPT-OV Office Visit 11:50:26 SKIP LOAD DRIVER CPT-55127 Bladder Scan 10:10:42 CDT CPT-29302 Venipuncture Draw Fee 09:14:04 CDT CPT-83128 Chest 2V Frontal and Lat 10:10:49 CDT CPT-95142 LS spine comp w obliq 11:50:11 CDT CPT-68781 Venipuncture Draw Fee 08:52:57 SKIP LOAD DRIVER CPT-29649 Cystoscopy W/rem FB 18:37:28 CDT CPT-09599 Abd single AP View 16:18:40 CDT CPT-92944 Abd compl w upright 17:30:59 CDT
--- OUTSIDE RECORDS SUMMARY | 2016-11-22 17:14 | XMS REPORT | Clinical Summary ---
Author Author Admin, QIE Organization [email or web address] Address Unknown Phone Unavailable Allergies, Adverse Reactions, [...] care facility Health screening V70.0 Active Capo Peo MD Routine general medical examination at a [...] [facility] Iron deficiency anemia, unspecified NAUSEA [...] 1 tab po twice daily FERROUS SULFATE 12535648594 Active Jasmin TEIXEIRA Active D ORAL TABS 2000 iu weekly D ORAL TABS Active Capo Poe MD Active CITALOPRAM HYDROBROMIDE 20 MG TABS 1 tablet by mouth daily CITALOPRAM HYDROBROMIDE 79344488957 Active Capo Poe MD Active CLARITIN 5 MG ORAL CHEW 1 tab po q day LORATADINE 17351071185 Active Felisa TEIXEIRA Active VIIBRYD STARTER PACK 10 & 20 MG ORAL KIT 1 po qd as directed 2015 VILAZODONE HCL 52413066648 No Longer Active Felisa TEIXEIRA Active HYDROXYZINE HCL 25 MG TAB 1 po qHS PRN Insomnia HYDROXYZINE HCL 00081589443 Active Capo Poe MD Active LISINOPRIL 10 MG TABS 1 tablet by mouth daily LISINOPRIL 68936616388 Active Capo Poe MD Active LORTAB 7.5-325 MG ORAL TABS 1 po q 6 hr prn pain HYDROCODONE- ACETAMINOPHEN 58794783094 No Longer Active Cpao Poe MD Active FLOMAX 0.4 MG CAPS Take one by mouth daily TAMSULOSIN HCL 00868649215 No Longer Active Capo Poe MD Active TRIAMCINOLONE ACETONIDE 0.1 % CREA Apply to affected areas TID for up to 2 weeks TRIAMCINOLONE ACETONIDE 98645875308 Active Capo Poe MD Active NICOTINE 14 MG/24HR TRANS PT24 Apply/Change q 24hr NICOTINE 94901259344 No Longer Active Capo Poe MD Active TRAMADOL HCL 50 MG TABS 1-2 tablets every 6 hours as needed for pain TRAMADOL HCL 11058669546 No Longer Active Capo Poe MD Active SERTRALINE HCL 100 MG ORAL TABS take 1 tab daily SERTRALINE HCL 52069832075 No Longer Active Capo Poe MD Active LISINOPRIL-HYDROCHLOROTHIAZIDE 10-12.5 MG TABS 0.5 tab by mouth daily LISINOPRIL-HYDROCHLOROTHIAZIDE 67902835379 No Longer Active Capo Poe MD Active OMEPRAZOLE 20 MG CPDR 1 tablet by mouth daily OMEPRAZOLE 54131287731 Active Capo Poe MD Active WELLBUTRIN SR 150 MG ORAL [id number] 1 po BID BUPROPION HCL 31050645229 No Longer Active Capo Poe MD Active MIRALAX PACK 1 po qd PRN Constipation POLYETHYLENE GLYCOL 3350 51109719412 Active Capo Poe MD Active DULERA 100-5 MCG/ACT AERO 2 puffs BID MOMETASONE FURO- FORMOTEROL FUM 23202559257 Active Capo Poe MD Active ZOLOFT 100 MG TABS 1 po daily SERTRALINE HCL 80954757728 No Longer Active Zoran Arzola MD Active FERROUS SULFATE 325 (65 FE) MG TABS 1 tablet by mouth daily FERROUS SULFATE 48842423177 No Longer Active Capo Poe MD Active HYDROCODONE-ACETAMINOPHEN 7.5-300 MG TABS take one every six hours HYDROCODONE-ACETAMINOPHEN 78753007407 No Longer Active Capo Poe MD Active TRIAMCINOLONE ACETONIDE 0.1 % OINT Apply to affected areas TID for up to 2 weeks TRIAMCINOLONE ACETONIDE 29060919559 No Longer Active Joe Vargas RN Active FERROUS SULFATE 325 (65 FE) MG TABS Take one by mouth daily FERROUS SULFATE 52879359530 No Longer Active Capo Poe MD Active TRIAMCINOLONE ACETONIDE 0.1 % OINT Apply to affected areas TID for up to 2 weeks TRIAMCINOLONE ACETONIDE 29323718710 No Longer Active Capo Poe MD Active ADULT ASPIRIN LOW STRENGTH 81 MG TBDP qd ASPIRIN 84173554950 Active Zoran Arzola MD Active ALEVE 220 MG TAB prn NAPROXEN SODIUM 70239979477 Active Capo Poe MD Active MACROBID 100 MG CAP 1 cap by mouth twice daily NITROFURANTOIN MONOHYD MACRO 96120885292 No Longer Active Dona Becker Active AZITHROMYCIN 250 MG TABS 2 po qd x 1 day, then 1 po qd x 4 days AZITHROMYCIN 35038618860 No Longer Active Capo Poe MD Active FISH OIL 500 MG CAPS by mouth twice a day OMEGA-3 FATTY ACIDS 33941826011 Active Capo Poe MD Active FLAXSEED OIL 1000 MG CAPS Take two by mouth daily FLAXSEED (LINSEED) 86620698084 Active Zoran Arzola MD Active RED YEAST RICE 600 MG CAPS Take two by mouth daily RED YEAST RICE EXTRACT 84206608603 Active Zoran Arzola MD Active MULTIVITAMINS CAPS Take one by mouth daily MULTIPLE VITAMIN 22249211985 Active Zoran Arzola MD Active ICAPS MV TABS 2 po daily MULTIPLE VITAMINS-MINERALS 44348801857 Active Jam Arnold DO Active MACROBID 100 MG CAP 1 cap by mouth twice daily MACROBID 100 MG CAP 3797230 NITROFURANTOIN MONOHYD MACRO Inactive FERROUS SULFATE 325 (65 FE) MG TABS Take one by mouth daily FERROUS SULFATE 325 (65 FE) MG TABS 221776 FERROUS SULFATE Inactive HYDROCODONE-ACETAMINOPHEN 7.5-300 MG TABS take one every six hours HYDROCODONE-ACETAMINOPHEN 7.5-300 MG TABS 614830 HYDROCODONE- ACETAMINOPHEN Inactive FERROUS SULFATE 325 (65 FE) MG TABS 1 tablet by mouth daily FERROUS SULFATE 325 (65 FE) MG TABS 735825 FERROUS SULFATE Inactive ZOLOFT 100 MG TABS 1 po daily ZOLOFT 100 MG TABS 186224 SERTRALINE HCL Inactive SERTRALINE HCL 100 MG ORAL TABS take 1 tab daily SERTRALINE HCL 100 MG ORAL TABS 641555 SERTRALINE HCL Inactive TRAMADOL HCL 50 MG TABS 1-2 tablets every 6 hours as needed for pain TRAMADOL HCL 50 MG TABS 345125 TRAMADOL HCL Inactive NICOTINE 14 MG/24HR TRANS PT24 Apply/Change q 24hr NICOTINE 14 MG/24HR TRANS PT24 627212 NICOTINE Inactive FLOMAX 0.4 MG CAPS Take one by mouth daily FLOMAX 0.4 MG CAPS 317943 TAMSULOSIN HCL Inactive LORTAB 7.5-325 MG ORAL TABS 1 po q 6 hr prn pain LORTAB 7.5- 325 MG ORAL TABS 506848 HYDROCODONE-ACETAMINOPHEN Inactive VIIBRYD STARTER PACK 10 & 20 MG ORAL KIT 1 po qd as directed 2015 VIIBRYD STARTER PACK 10 & 20 MG ORAL KIT VILAZODONE HCL Inactive AZITHROMYCIN 250 MG TABS 2 po qd x 1 day, then 1 po qd x 4 days AZITHROMYCIN 250 MG TABS 4928871 AZITHROMYCIN Inactive TRIAMCINOLONE ACETONIDE 0.1 % OINT Apply to affected areas TID for up to 2 weeks TRIAMCINOLONE ACETONIDE 0.1 % OINT 6794108 TRIAMCINOLONE ACETONIDE Inactive TRIAMCINOLONE ACETONIDE 0.1 % OINT Apply to affected areas TID for up to 2 weeks TRIAMCINOLONE ACETONIDE 0.1 % OINT 6207090 TRIAMCINOLONE ACETONIDE Inactive Advance Directives Directive Description [...] ... - Chemistry sodium, serum 141 mmol/L 438-878 0703/01/27 carbon dioxide, venous blood 29.7 mmol/L 21.0-32.0 [...] ... - Chemistry sodium, serum 138 mmol/L 154-011 1014/03/18 carbon dioxide, venous blood 25.5 mmol/L 21.0-32.0 potassium, serum 4.6 mmol/L 3.5-5.2 chloride, serum 101 mmol/L 98-107 blood glucose 129 mg/dL 65-110 urea nitrogen, blood 20 mg/dL 7-18 creatinine, serum 1.87 mg/dL 0.55-1.30 alanine aminotransferase (SGPT), serum 26 U/L 12-78 aspartate aminotransferase (SGOT), serum 20 U/L 15-37 calcium, serum 8.8 mg/dL 8.5-10.1 bilirubin, serum, total 0.40 mg/dL 0.00-1.00 cholesterol, serum 251 mg/dL 862-074 2351/03/18 triglyceride, serum, fasting 135 mg/dL 30-200 HDL [...] 0-19 Encounters Code Encounter Date Provider Facility CPT-83768 Level 4 Est. Patient 09:26:11 INFANTRY OFFICER Capo Poe MD [facility] CPT-36051 Level 4 Est. Patient 08:53:08 CDT Capo Poe MD [facility] CPT-68357 Level 4 Est. Patient 10:22:57 CDT Capo Poe MD [facility] CPT-52061 Level 4 Est. Patient 13:44:30 CDT Capo Poe MD [facility] CPT-46865 Level 3 Est. Patient 14:59:32 INFANTRY OFFICER Capo Poe MD [facility] CPT-26851 Level 4 Est. Patient 10:46:15 INFANTRY OFFICER Capo Poe MD [facility] CPT-66532 Level 3 Est. Patient 11:00:53 CDT Capo Poe MD [facility] CPT-69653 Level 3 Est. Patient 09:39:35 CDT Capo Poe MD [facility] CPT-75183 Level 3 Est. Patient 09:27:01 CDT Capo Poe MD [facility] CPT-07623 Level 3 Est. Patient 18:37:08 CDT Zoran Arzola MD [facility] CPT-80001 Level 3 Est. Patient 15:00:28 CDT Capo Poe MD [facility] CPT-32703 Level 3 Est. Patient 08:20:19 CDT Zoran Arzola MD [facility] CPT-92602 Level 3 Est. Patient 09:22:21 CDT Capo Poe MD [facility] CPT-16023 Level 4 Est. Patient 10:21:30 INFANTRY OFFICER Capo Poe MD [facility] CPT-49653 Level 3 Est. Patient 17:08:51 INFANTRY OFFICER Zoran Arzola MD [facility] CPT-45814 Level 4 Est. Patient 09:44:42 CDT Capo Poe MD [facility] CPT-88888 Level 4 Est. Patient 10:39:29 CDT Capo Poe MD [facility] CPT-77533 Level 3 Est. Patient 17:45:23 CDT Zoran Arzola MD [facility] CPT-35496 Level 4 Est. Patient 08:50:44 CDT Capo Poe MD [facility] CPT-32194 Level 3 Est. Patient 10:39:51 INFANTRY OFFICER Capo Poe MD [facility] CPT-56817 Level 4 Est. Patient 09:44:24 INFANTRY OFFICER Capo Poe MD [facility] CPT-06085 Level 3 Est. Patient 14:48:42 INFANTRY OFFICER Zoran Arzola MD [facility] CPT-43799 Level 4 Est. Patient 10:24:02 CDT Capo Poe MD [facility] CPT-94043 Level 3 Est. Patient 15:42:00 CDT Maya DUKES [facility] CPT-70935 Level 4 Est. Patient 13:34:15 CDT Capo Poe MD [facility] CPT-08665 Level 3 Est. Patient 15:32:10 INFANTRY OFFICER Zoran Arzola MD [facility] CPT-13625 Level 3 New Patient 17:17:19 INFANTRY OFFICER Zoran Arzola MD [facility] CPT-46912 Level 4 Est. Patient 10:25:01 INFANTRY OFFICER Capo Poe MD [facility] CPT-96254 Level 3 Est. Patient 10:10:42 CDT Zoran Arzola MD [facility] CPT-09814 Level 3 Est. Patient 22:30:02 CDT Zoran Arzola MD [facility] CPT-17598 Level 4 Est. Patient 09:54:20 CDT Capo Poe MD [facility] CPT-25286 Level 3 Est. Patient 10:48:30 CDT Capo Poe MD [facility] CPT-05706 Level 3 Est. Patient 11:24:45 CDT Capo Poe MD [facility] CPT-08170 Level 3 Est. Patient 15:23:48 INFANTRY OFFICER Capo Poe MD [facility] CPT-88664 Level 3 Est. Patient 15:10:03 INFANTRY OFFICER Capo Poe MD [facility] CPT-07227 Level 3 Est. Patient 16:18:40 CDT Zoran Arzola MD [facility] Procedures Code Procedure Name Date Entry Date Standard Description CPT-76099 Hemoccult IFOBT - LAB USE ONLY 14:11:43 INFANTRY OFFICER CPT-96662 TPSA - LAB USE ONLY 10:37:52 INFANTRY OFFICER CPT-37386 TSH - LAB USE ONLY 10:37:51 INFANTRY OFFICER CPT-97777 CMP - LAB USE ONLY 10:37:51 INFANTRY OFFICER CPT-95310 CBC with Diff - LAB USE ONLY 10:37:51 INFANTRY OFFICER CPT-77503 Venipuncture Draw Fee 10:37:51 INFANTRY OFFICER CPT-000 Give Pneumovax 10:39:30 CDT CPT-71114 Venipuncture Draw Fee 09:32:34 CDT CPT-G0438 Initial Annual Wellness Exam 10:24:35 CDT CPT-49690 Venipuncture Draw Fee 09:46:29 CDT CPT-70483 Venipuncture Draw Fee 14:30:06 CDT CPT-82026 Venipuncture Draw Fee 10:58:22 CDT CPT-23043 Abd single AP View 08:32:00 CDT CPT-83501 Postop F/U Visit 21:13:08 CDT CPT-94954 Abd single AP View 15:50:24 CDT CPT-28957 Cystoscopy W/rem FB 15:21:28 CDT CPT-34936 Abd single AP View 14:06:45 CDT CPT-80438 Postop F/U Visit 09:48:32 CDT CPT-60856 Abd single AP View 13:58:26 CDT CPT-27191 Hip comp min 2V 10:27:18 INFANTRY OFFICER CPT-77250 Urine Dip (Floor Use Only) 13:41:01 INFANTRY OFFICER CPT-70726 Postop F/U Visit 11:17:48 CDT CPT-LR Lesion Removal 11:50:22 CDT CPT-OV Office Visit 11:50:22 CDT CPT-97858 Pneumovax 23 10:55:48 CDT CPT-71437 Administration single or combination vaccine inc oral 10 :55:48 CDT CPT-Cryo Cryotherapy 11:18:11 CDT CPT-OV Office Visit 11:18:11 CDT CPT-76832 LS spine AP and Lat 09:05:22 CDT CPT-26046 Bladder Scan 15:42:00 CDT CPT-62136 Cystoscopy 15:42:00 CDT CPT-OV Office Visit 16:37:19 INFANTRY OFFICER CPT-63490 Bladder Scan 15:32:10 INFANTRY OFFICER CPT-99565 Cystoscopy 15:32:10 INFANTRY OFFICER CPT-74983 Abd single AP View 14:05:59 INFANTRY OFFICER CPT-50737 Pill cam small bowel 09:48:39 INFANTRY OFFICER CPT-40958 Urine Dip (Floor Use Only) 17:17:19 INFANTRY OFFICER CPT-90423 Bladder Scan 17:17:19 INFANTRY OFFICER CPT-OV Office Visit 11:50:26 INFANTRY OFFICER CPT-37742 Bladder Scan 10:10:42 CDT CPT-35570 Venipuncture Draw Fee 09:14:04 CDT CPT-08178 Chest 2V Frontal and Lat 10:10:49 CDT CPT-19601 LS spine comp w obliq 11:50:11 CDT CPT-83004 Venipuncture Draw Fee 08:52:57 INFANTRY OFFICER CPT-58490 Cystoscopy W/rem FB 18:37:28 CDT CPT-96495 Abd single AP View 16:18:40 CDT CPT-05254 Abd compl w upright 17:30:59 CDT
--- OUTSIDE RECORDS SUMMARY | 2016-11-22 17:15 | XMS REPORT | Clinical Summary ---
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 Clyde Poe MD UTI ICD-599.0 Inactive Capo Poe MD Skin lesion ICD-709.9 Inactive Capo Poe MD Ecchymoses, spontaneous ICD-782.7 Inactive Capo Poe MD Medication List Medication Instructions Start Date Stop Date Generic Name NDC Status Provider Patient Instruction DULERA 100-5 MCG/ACT AERO 2 puffs BID MOMETASONE FURO- FORMOTEROL FUM 26193942009 Active Capo Poe MD Active SERTRALINE HCL 100 MG ORAL TABS take 1 tab daily SERTRALINE HCL 91522795948 Active Capo Poe MD Active ZOLOFT 100 MG TABS 1 po daily SERTRALINE HCL 70992344323 No Longer Active Zoran Arzola MD Active FERROUS SULFATE 325 (65 FE) MG TABS 1 tablet by mouth daily FERROUS SULFATE 93496920318 No Longer Active Capo Poe MD Active TRAMADOL HCL 50 MG TABS 1-2 tablets every 6 hours as needed for pain TRAMADOL HCL 30933031785 Active Capo Poe MD Active HYDROCODONE-ACETAMINOPHEN 7.5-300 MG TABS take one every six hours HYDROCODONE-ACETAMINOPHEN 68147731081 No Longer Active Capo Poe MD Active TRIAMCINOLONE ACETONIDE 0.1 % OINT Apply to affected areas TID for up to 2 weeks TRIAMCINOLONE ACETONIDE 03143846951 No Longer Active Joe Vargas RN Active FERROUS SULFATE 325 (65 FE) MG TABS Take one by mouth daily FERROUS SULFATE 95349819566 No Longer Active Capo Poe MD Active TRIAMCINOLONE ACETONIDE 0.1 % OINT Apply to affected areas TID for up to 2 weeks TRIAMCINOLONE ACETONIDE 92186219610 No Longer Active Capo Poe MD Active ADULT ASPIRIN LOW STRENGTH 81 MG TBDP qd ASPIRIN 51405443301 Active Zoran Arzola MD Active ALEVE 220 MG TAB prn NAPROXEN SODIUM 07036484240 Active Capo Poe MD Active LISINOPRIL-HYDROCHLOROTHIAZIDE 10-12.5 MG TABS 1 tab by mouth daily LISINOPRIL-HYDROCHLOROTHIAZIDE 96008751225 Active Capo Poe MD Active MACROBID 100 MG CAP 1 cap by mouth twice daily NITROFURANTOIN MONOHYD MACRO 66492788535 No Longer Active Dona Becekr Active AZITHROMYCIN 250 MG TABS 2 po qd x 1 day, then 1 po qd x 4 days AZITHROMYCIN 64821029432 No Longer Active Capo Poe MD Active FISH OIL 500 MG CAPS by mouth twice a day OMEGA-3 FATTY ACIDS 00845348548 Active Capo Poe MD Active FLAXSEED OIL 1000 MG CAPS Take two by mouth daily FLAXSEED (LINSEED) 17830101894 Active Zoran Arzola MD Active RED YEAST RICE 600 MG CAPS Take two by mouth daily RED YEAST RICE EXTRACT 92316395230 Active Zoran Arzola MD Active MULTIVITAMINS CAPS Take one by mouth daily MULTIPLE VITAMIN 78870383071 Active Zoran Arzola MD Active ICAPS MV TABS 2 po daily MULTIPLE VITAMINS-MINERALS 59302247385 Active Jam Arnold DO Active MACROBID 100 MG CAP 1 cap by mouth twice daily MACROBID 100 MG CAP 698814 NITROFURANTOIN MONOHYD MACRO Inactive FERROUS SULFATE 325 (65 FE) MG TABS Take one by mouth daily FERROUS SULFATE 325 (65 FE) MG TABS 123650 FERROUS SULFATE Inactive HYDROCODONE-ACETAMINOPHEN 7.5-300 MG TABS take one every six hours HYDROCODONE-ACETAMINOPHEN 7.5-300 MG TABS 026519 HYDROCODONE- ACETAMINOPHEN Inactive FERROUS SULFATE 325 (65 FE) MG TABS 1 tablet by mouth daily FERROUS SULFATE 325 (65 FE) MG TABS 545622 FERROUS SULFATE Inactive ZOLOFT 100 MG TABS 1 po daily ZOLOFT 100 MG TABS 331265 SERTRALINE HCL Inactive AZITHROMYCIN 250 MG TABS 2 po qd x 1 day, then 1 po qd x 4 days AZITHROMYCIN 250 MG TABS 8452422 AZITHROMYCIN Inactive TRIAMCINOLONE ACETONIDE 0.1 % OINT Apply to affected areas TID for up to 2 weeks TRIAMCINOLONE ACETONIDE 0.1 % OINT 8757249 TRIAMCINOLONE ACETONIDE Inactive TRIAMCINOLONE ACETONIDE 0.1 % OINT Apply to affected areas TID for up to 2 weeks TRIAMCINOLONE ACETONIDE 0.1 % OINT 6997375 TRIAMCINOLONE ACETONIDE Inactive Advance Directives Directive Description [...] Panel - Chemistry sodium, serum 140 mmol/L 261-857 9796/05/21 potassium, serum 4.0 mmol/L 3.5-5.2 chloride, serum [...] % 11.6-14.8 platelet count 245 10^3/MM^3 10*3/mm3 372-187 9535/05/21 lymphocytes as percent of blood leukocytes 18.0 [...] CBC - Chemistry cholesterol, serum 207 mg/dL 753-496 1758/02/11 triglyceride, serum, fasting 74 mg/dL 30-200 HDL cholesterol, serum 62 mg/dL 32-96 LDL cholesterol, serum 130 mg/dL 0-130 sodium, serum 144 mmol/L 075-418 0231/02/11 potassium, serum 5.0 mmol/L 3.5-5.2 chloride, serum [...] 0.00-4.00 prostate specific antigen 1.61 ng/mL 0.00-4.00 prostate specific antigen 1.11 ng/mL 0.00-4.00 Lab Report: Prothrombin Time - [...] by test strip negative bilirubin, urine negative urine color yellow appearance, urine clear leukocyte esterase, urine, by dipstick 3+ nitrite, urine, semiquantitative positive urobilinogen, urine, semiquantitative (dipstick) 0.2 protein, urine, semiquantitative (dipstick) negative pH, urine, semiquantitative 7 specific gravity, urine 1.015 urinalysis, routine Clean Catch culture status Yes glucose, urine, semiquantitative negative Encounters Code Encounter Date Provider Facility CPT-02961 Level 3 Est. Patient 08:20:19 CDT Zoran Arzola MD [facility] CPT-87953 Level 3 Est. Patient 09:22:21 CDT Capo Poe MD [facility] CPT-77751 Level 4 Est. Patient 10:21:30 [employer]UMENT AND ELECTRICAL TECHNICIAN Capo Poe MD [facility] CPT-14138 Level 3 Est. Patient 17:08:51 INSTRUMENT AND ELECTRICAL TECHNICIAN Zoran Arzola MD [facility] CPT-04012 Level 4 Est. Patient 09:44:42 CDT Capo Poe MD [facility] CPT-90784 Level 4 Est. Patient 10:39:29 CDT Capo Poe MD [facility] CPT-42627 Level 3 Est. Patient 17:45:23 CDT Zoran Arzola MD [facility] CPT-73328 Level 4 Est. Patient 08:50:44 CDT Capo Poe MD [facility] CPT-46166 Level 3 Est. Patient 10:39:51 INSTRUMENT AND ELECTRICAL TECHNICIAN Capo Poe MD [facility] CPT-21110 Level 4 Est. Patient 09:44:24 INSTRUMENT AND ELECTRICAL TECHNICIAN Capo Poe MD [facility] CPT-07768 Level 3 Est. Patient 14:48:42 INSTRUMENT AND ELECTRICAL TECHNICIAN Zoran Arzola MD [facility] CPT-27074 Level 4 Est. Patient 10:24:02 CDT Capo Poe MD [facility] CPT-39599 Level 3 Est. Patient 15:42:00 CDT Mayanina DUKES [facility] CPT-39810 Level 4 Est. Patient 13:34:15 CDT Capo Poe MD [facility] CPT-84744 Level 3 Est. Patient 15:32:10 INSTRUMENT AND ELECTRICAL TECHNICIAN Zorna Arzola MD [facility] CPT-69520 Level 3 New Patient 17:17:19 INSTRUMENT AND ELECTRICAL TECHNICIAN Zoran Arzola MD [facility] CPT-41457 Level 4 Est. Patient 10:25:01 INSTRUMENT AND ELECTRICAL TECHNICIAN Capo Poe MD [facility] CPT-23399 Level 3 Est. Patient 10:10:42 CDT Zoran Arzola MD [facility] CPT-21032 Level 3 Est. Patient 22:30:02 CDT Zoran Arzola MD [facility] CPT-89452 Level 4 Est. Patient 09:54:20 CDT Capo Poe MD [facility] CPT-81688 Level 3 Est. Patient 10:48:30 CDT Capo Poe MD [facility] CPT-64788 Level 3 Est. Patient 11:24:45 CDT Capo Poe MD [facility] CPT-09371 Level 3 Est. Patient 15:23:48 INSTRUMENT AND ELECTRICAL TECHNICIAN Capo Poe MD [facility] CPT-52760 Level 3 Est. Patient 15:10:03 INSTRUMENT AND ELECTRICAL TECHNICIAN Capo Poe MD [facility] CPT-88943 Level 3 Est. Patient 16:18:40 CDT Zoran Arzola MD [facility] Procedures Code Procedure Name Date Entry Date Standard Description CPT-64154 Cystoscopy W/rem FB 15:21:28 CDT CPT-36943 Abd single AP View 14:06:45 CDT CPT-79672 Postop F/U Visit 09:48:32 CDT CPT-03865 Abd single AP View 13:58:26 CDT CPT-09777 Hip comp min 2V 10:27:18 [employer]STRUMENT AND ELECTRICAL TECHNICIAN CPT-89298 Urine Dip (Floor Use Only) 13:41:01 INSTRUMENT AND ELECTRICAL TECHNICIAN CPT-62286 Postop F/U Visit 11:17:48 CDT CPT-LR Lesion Removal 11:50:22 CDT CPT-OV Office Visit 11:50:22 CDT CPT-92215 Pneumovax 23 10:55:48 CDT CPT-10197 Administration single or combination vaccine inc oral 10 :55:48 CDT CPT-Cryo Cryotherapy 11:18:11 CDT CPT-OV Office Visit 11:18:11 CDT CPT-83210 LS spine AP and Lat 09:05:22 CDT CPT-92785 Bladder Scan 15:42:00 CDT CPT-38137 Cystoscopy 15:42:00 CDT CPT-OV Office Visit 16:37:19 INSTRUMENT AND ELECTRICAL TECHNICIAN CPT-88785 Bladder Scan 15:32:10 INSTRUMENT AND ELECTRICAL TECHNICIAN CPT-20640 Cystoscopy 15:32:10 INSTRUMENT AND ELECTRICAL TECHNICIAN CPT-82909 Abd single AP View 14:05:59 INSTRUMENT AND ELECTRICAL TECHNICIAN CPT-52540 Pill cam small bowel 09:48:39 INSTRUMENT AND ELECTRICAL TECHNICIAN CPT-46771 Urine Dip (Floor Use Only) 17:17:19 INSTRUMENT AND ELECTRICAL TECHNICIAN CPT-25938 Bladder Scan 17:17:19 INSTRUMENT AND ELECTRICAL TECHNICIAN CPT-OV Office Visit 11:50:26 INSTRUMENT AND ELECTRICAL TECHNICIAN CPT-92702 Bladder Scan 10:10:42 CDT CPT-88276 Venipuncture Draw Fee 09:14:04 CDT CPT-40043 Chest 2V Frontal and Lat 10:10:49 CDT CPT-06522 LS spine comp w obliq 11:50:11 CDT CPT-68334 Venipuncture Draw Fee 08:52:57 INSTRUMENT AND ELECTRICAL TECHNICIAN CPT-20848 Cystoscopy W/rem FB 18:37:28 CDT CPT-05791 Abd single AP View 16:18:40 CDT CPT-11527 Abd compl w upright 17:30:59 CDT
--- OUTSIDE RECORDS SUMMARY | 2016-11-22 17:17 | XMS REPORT | Clinical Summary ---
Author Author Admin, MARGE Organization [facility] Address Unknown Phone Unavailable Allergies, Adverse Reactions, [...] URINARY FREQUENCY ICD-788.41 Inactive Capo Poe MD BLADDER CALCULUS ICD-594.1 [...] 2 puffs BID MOMETASONE FURO- FORMOTEROL FUM 39016064117 Active Capo Poe MD Active SERTRALINE HCL 100 MG ORAL TABS take 1 tab daily SERTRALINE HCL 94057726577 Active Capo Poe MD Active ZOLOFT 100 MG TABS 1 po daily SERTRALINE HCL 10957387152 No Longer Active Zoran Arzola MD Active FERROUS SULFATE 325 (65 FE) MG TABS 1 tablet by mouth daily FERROUS SULFATE 81587833324 No Longer Active Capo Poe MD Active TRAMADOL HCL 50 MG TABS 1-2 tablets every 6 hours as needed for pain TRAMADOL HCL 30898471957 Active Capo Poe MD Active HYDROCODONE-ACETAMINOPHEN 7.5-300 MG TABS take one every six hours HYDROCODONE-ACETAMINOPHEN 71692344683 No Longer Active Capo Poe MD Active TRIAMCINOLONE ACETONIDE 0.1 % OINT Apply to affected areas TID for up to 2 weeks TRIAMCINOLONE ACETONIDE 30704119129 No Longer Active Joe Vargas RN Active FERROUS SULFATE 325 (65 FE) MG TABS Take one by mouth daily FERROUS SULFATE 36469012123 No Longer Active Capo Poe MD Active TRIAMCINOLONE ACETONIDE 0.1 % OINT Apply to affected areas TID for up to 2 weeks TRIAMCINOLONE ACETONIDE 04023105097 No Longer Active Capo Poe MD Active ADULT ASPIRIN LOW STRENGTH 81 MG TBDP qd ASPIRIN 87117413808 Active Zoran Arzola MD Active ALEVE 220 MG TAB prn NAPROXEN SODIUM 30536415893 Active Capo Poe MD Active LISINOPRIL-HYDROCHLOROTHIAZIDE 10-12.5 MG TABS 1 tab by mouth daily LISINOPRIL-HYDROCHLOROTHIAZIDE 13971887150 Active Capo Poe MD Active MACROBID 100 MG CAP 1 cap by mouth twice daily NITROFURANTOIN MONOHYD MACRO 87815245621 No Longer Active Dona Becker Active AZITHROMYCIN 250 MG TABS 2 po qd x 1 day, then 1 po qd x 4 days AZITHROMYCIN 77097836524 No Longer Active Capo Poe MD Active FISH OIL 500 MG CAPS by mouth twice a day OMEGA-3 FATTY ACIDS 60807217642 Active Capo Poe MD Active FLAXSEED OIL 1000 MG CAPS Take two by mouth daily FLAXSEED (LINSEED) 48269531883 Active Zoran Arzola MD Active RED YEAST RICE 600 MG CAPS Take two by mouth daily RED YEAST RICE EXTRACT 42885428829 Active Zoran Arzola MD Active MULTIVITAMINS CAPS Take one by mouth daily MULTIPLE VITAMIN 94876695297 Active Zoran Arzola MD Active ICAPS MV TABS 2 po daily MULTIPLE VITAMINS-MINERALS 87250357614 Active Jam Arnold DO Active MACROBID 100 MG CAP 1 cap by mouth twice daily MACROBID 100 MG CAP 273659 NITROFURANTOIN MONOHYD MACRO Inactive FERROUS SULFATE 325 (65 FE) MG TABS Take one by mouth daily FERROUS SULFATE 325 (65 FE) MG TABS 680836 FERROUS SULFATE Inactive HYDROCODONE-ACETAMINOPHEN 7.5-300 MG TABS take one every six hours HYDROCODONE-ACETAMINOPHEN 7.5-300 MG TABS 296477 HYDROCODONE- ACETAMINOPHEN Inactive FERROUS SULFATE 325 (65 FE) MG TABS 1 tablet by mouth daily FERROUS SULFATE 325 (65 FE) MG TABS 203029 FERROUS SULFATE Inactive ZOLOFT 100 MG TABS 1 po daily ZOLOFT 100 MG TABS 811604 SERTRALINE HCL Inactive AZITHROMYCIN 250 MG TABS 2 po qd x 1 day, then 1 po qd x 4 days AZITHROMYCIN 250 MG TABS 8153811 AZITHROMYCIN Inactive TRIAMCINOLONE ACETONIDE 0.1 % OINT Apply to affected areas TID for up to 2 weeks TRIAMCINOLONE ACETONIDE 0.1 % OINT 7045755 TRIAMCINOLONE ACETONIDE Inactive TRIAMCINOLONE ACETONIDE 0.1 % OINT Apply to affected areas TID for up to 2 weeks TRIAMCINOLONE ACETONIDE 0.1 % OINT 9356579 TRIAMCINOLONE ACETONIDE Inactive Advance Directives Directive Description [...] Description Chart Maintenance: Outside labs entered on [facility] - Chemistry sodium, serum 137 mmol/L potassium, serum 4.0 mmol/L blood glucose 117 mg/dL creatinine, serum 1.68 mg/dL Chart Maintenance: Outside labs entered on [facility] - Hematology leukocyte count, blood 9.5 10*3/mm3 [...] CBC - Chemistry cholesterol, serum 207 mg/dL 328-593 5030/02/11 triglyceride, serum, fasting 74 mg/dL 30-200 HDL cholesterol, serum 62 mg/dL 32-96 LDL cholesterol, serum 130 mg/dL 0-130 sodium, serum 144 mmol/L 353-333 5231/02/11 potassium, serum 5.0 mmol/L 3.5-5.2 chloride, serum [...] negative Encounters Code Encounter Date Provider Facility CPT-27710 Level 3 Est. Patient 08:20:19 CDT Zoran Arzola MD [facility] CPT-92101 Level 3 Est. Patient 09:22:21 CDT Capo Poe MD [facility] CPT-28510 Level 4 Est. Patient 10:21:30 [place] [facility] CPT-04586 Level 3 Est. Patient 17:08:51 [place] Zoran Arzola MD [facility] CPT-47443 Level 4 Est. Patient 09:44:42 CDT Capo Poe MD [facility] CPT-65758 Level 4 Est. Patient 10:39:29 CDT Capo Poe MD [facility] CPT-72291 Level 3 Est. Patient 17:45:23 CDT Zoran Arzola MD [facility] CPT-11378 Level 4 Est. Patient 08:50:44 CDT Capo Poe MD [facility] CPT-45822 Level 3 Est. Patient 10:39:51 [place] [facility]o Poe [facility] CPT-55028 Level 4 Est. Patient 09:44:24 [place] Capo Poe MD [facility] CPT-23979 Level 3 Est. Patient 14:48:42 [place] Zoran Arzola MD [facility] CPT-89345 Level 4 Est. Patient 10:24:02 CDT Capo Poe MD [facility] CPT-76516 Level 3 Est. Patient 15:42:00 CDT Maya WRIGHTP [facility] CPT-56878 Level 4 Est. Patient 13:34:15 CDT Capo Poe MD [facility] CPT-24850 Level 3 Est. Patient 15:32:10 [place] Zoran Arzola MD [facility] CPT-32742 Level 3 New Patient 17:17:19 [place] Zoran Arzola MD [facility] CPT-77799 Level 4 Est. Patient 10:25:01 [place] Capo Poe MD [facility] CPT-18344 Level 3 Est. Patient 10:10:42 CDT Zoran Arzola MD [facility] CPT-26272 Level 3 Est. Patient 22:30:02 CDT Zoran Arzola MD [facility] CPT-86649 Level 4 Est. Patient 09:54:20 CDT Capo Poe MD [facility] CPT-60791 Level 3 Est. Patient 10:48:30 CDT Caop Poe MD [facility] CPT-11389 Level 3 Est. Patient 11:24:45 CDT Capo Poe MD [facility] CPT-27874 Level 3 Est. Patient 15:23:48 [place] Capo Poe MD [facility] CPT-20288 Level 3 Est. Patient 15:10:03 [place] Capo Poe MD [facility] CPT-44220 Level 3 Est. Patient 16:18:40 CDT oZran Arzola MD [facility] Procedures Code Procedure Name Date Entry Date Standard Description CPT-35167 Postop F/U Visit 21:13:08 CDT CPT-93805 Abd single AP View 15:50:24 CDT CPT-56275 Cystoscopy W/rem FB 15:21:28 CDT CPT-41047 Abd single AP View 14:06:45 CDT CPT-57803 Postop F/U Visit 09:48:32 CDT CPT-48125 Abd single AP View 13:58:26 CDT CPT-21833 Hip comp min 2V 10:27:18 [place] CPT-30689 Urine Dip (Floor Use Only) 13:41:01 [place] CPT-21768 Postop F/U Visit 11:17:48 CDT CPT-LR Lesion Removal 11:50:22 CDT CPT-OV Office Visit 11:50:22 CDT CPT-73407 Pneumovax 23 10:55:48 CDT CPT-47579 Administration single or combination vaccine inc oral 10 :55:48 CDT CPT-Cryo Cryotherapy 11:18:11 CDT CPT-OV Office Visit 11:18:11 CDT CPT-92550 LS spine AP and Lat 09:05:22 CDT CPT-80972 Bladder Scan 15:42:00 CDT CPT-39010 Cystoscopy 15:42:00 CDT CPT-OV Office Visit 16:37:19 [place] CPT-18659 Bladder Scan 15:32:10 [place] CPT-25673 Cystoscopy 15:32:10 [place] CPT-70177 Abd single AP View 14:05:59 [place] CPT-78360 Pill cam small bowel 09:48:39 [place] CPT-94755 Urine Dip (Floor Use Only) 17:17:19 [place] CPT-94028 Bladder Scan 17:17:19 [place] CPT-OV Office Visit 11:50:26 [place] CPT-59459 Bladder Scan 10:10:42 CDT CPT-85492 Venipuncture Draw Fee 09:14:04 CDT CPT-37890 Chest 2V Frontal and Lat 10:10:49 CDT CPT-63461 LS spine comp w obliq 11:50:11 CDT CPT-41947 Venipuncture Draw Fee 08:52:57 [place] CPT-42524 Cystoscopy W/rem FB 18:37:28 CDT CPT-99496 Abd single AP View 16:18:40 CDT CPT-35957 Abd compl w upright 17:30:59 CDT
--- OUTSIDE RECORDS SUMMARY | 2016-11-22 17:18 | XMS REPORT | Clinical Summary ---
Author Author Admin, MARGE Organization [facility] Address Unknown Phone Unavailable Allergies, Adverse [...] 599.70 Resolved aCpo Poe MD Hematuria, unspecified U T I-RECURRENT [...] 2 puffs BID MOMETASONE FURO- FORMOTEROL FUM 48925721103 Active Capo Poe MD Active SERTRALINE HCL 100 MG ORAL TABS take 1 tab daily SERTRALINE HCL 29374943147 Active Capo Poe MD Active ZOLOFT 100 MG TABS 1 po daily SERTRALINE HCL 78104318637 No Longer Active Zoran Arzola MD Active FERROUS SULFATE 325 (65 FE) MG TABS 1 tablet by mouth daily FERROUS SULFATE 59178084866 No Longer Active Capo Poe MD Active TRAMADOL HCL 50 MG TABS 1-2 tablets every 6 hours as needed for pain TRAMADOL HCL 86986768132 Active Capo Poe MD Active HYDROCODONE-ACETAMINOPHEN 7.5-300 MG TABS take one every six hours HYDROCODONE-ACETAMINOPHEN 73753461312 No Longer Active Capo Poe MD Active TRIAMCINOLONE ACETONIDE 0.1 % OINT Apply to affected areas TID for up to 2 weeks TRIAMCINOLONE ACETONIDE 21387189661 No Longer Active Joe Vargas RN Active FERROUS SULFATE 325 (65 FE) MG TABS Take one by mouth daily FERROUS SULFATE 25087287699 No Longer Active Capo Poe MD Active TRIAMCINOLONE ACETONIDE 0.1 % OINT Apply to affected areas TID for up to 2 weeks TRIAMCINOLONE ACETONIDE 14819876376 No Longer Active Capo Poe MD Active ADULT ASPIRIN LOW STRENGTH 81 MG TBDP qd ASPIRIN 96965014141 Active Zoran Arzola MD Active ALEVE 220 MG TAB prn NAPROXEN SODIUM 17719674805 Active Capo Poe MD Active LISINOPRIL-HYDROCHLOROTHIAZIDE 10-12.5 MG TABS 1 tab by mouth daily LISINOPRIL-HYDROCHLOROTHIAZIDE 62670807970 Active Capo Poe MD Active MACROBID 100 MG CAP 1 cap by mouth twice daily NITROFURANTOIN MONOHYD MACRO 23529841858 No Longer Active Dona Becker Active AZITHROMYCIN 250 MG TABS 2 po qd x 1 day, then 1 po qd x 4 days AZITHROMYCIN 90221203681 No Longer Active Capo Poe MD Active FISH OIL 500 MG CAPS by mouth twice a day OMEGA-3 FATTY ACIDS 03168976139 Active Capo Poe MD Active FLAXSEED OIL 1000 MG CAPS Take two by mouth daily FLAXSEED (LINSEED) 73852455202 Active Zoran Arzola MD Active RED YEAST RICE 600 MG CAPS Take two by mouth daily RED YEAST RICE EXTRACT 81164597307 Active Zoran Arzola MD Active MULTIVITAMINS CAPS Take one by mouth daily MULTIPLE VITAMIN 05194646157 Active Zoran Arzola MD Active ICAPS MV TABS 2 po daily MULTIPLE VITAMINS-MINERALS 77859417014 Active Jam Arnold DO Active MACROBID 100 MG CAP 1 cap by mouth twice daily MACROBID 100 MG CAP 538579 NITROFURANTOIN MONOHYD MACRO Inactive FERROUS SULFATE 325 (65 FE) MG TABS Take one by mouth daily FERROUS SULFATE 325 (65 FE) MG TABS 453474 FERROUS SULFATE Inactive HYDROCODONE-ACETAMINOPHEN 7.5-300 MG TABS take one every six hours HYDROCODONE-ACETAMINOPHEN 7.5-300 MG TABS 349392 HYDROCODONE- ACETAMINOPHEN Inactive FERROUS SULFATE 325 (65 FE) MG TABS 1 tablet by mouth daily FERROUS SULFATE 325 (65 FE) MG TABS 302181 FERROUS SULFATE Inactive ZOLOFT 100 MG TABS 1 po daily ZOLOFT 100 MG TABS 160754 SERTRALINE HCL Inactive AZITHROMYCIN 250 MG TABS 2 po qd x 1 day, then 1 po qd x 4 days AZITHROMYCIN 250 MG TABS 3235153 AZITHROMYCIN Inactive TRIAMCINOLONE ACETONIDE 0.1 % OINT Apply to affected areas TID for up to 2 weeks TRIAMCINOLONE ACETONIDE 0.1 % OINT 5891390 TRIAMCINOLONE ACETONIDE Inactive TRIAMCINOLONE ACETONIDE 0.1 % OINT Apply to affected areas TID for up to 2 weeks TRIAMCINOLONE ACETONIDE 0.1 % OINT 2988906 TRIAMCINOLONE ACETONIDE Inactive Advance Directives Directive Description [...] Description Chart Maintenance: Outside labs entered on [employer] - Chemistry sodium, serum 137 mmol/L potassium, serum 4.0 mmol/L blood glucose 117 mg/dL creatinine, serum 1.68 mg/dL Chart Maintenance: Outside labs entered on [employer] - Hematology leukocyte count, blood 9.5 10*3/mm3 [...] CBC - Chemistry cholesterol, serum 207 mg/dL 924-208 3023/02/11 triglyceride, serum, fasting 74 mg/dL 30-200 HDL cholesterol, serum 62 mg/dL 32-96 LDL cholesterol, serum 130 mg/dL 0-130 sodium, serum 144 mmol/L 124-389 5180/02/11 potassium, serum 5.0 mmol/L 3.5-5.2 chloride, serum [...] negative Encounters Code Encounter Date Provider Facility CPT-88199 Level 3 Est. Patient 08:20:19 CDT Zoran Arzola MD [facility] CPT-87873 Level 3 Est. Patient 09:22:21 CDT Capo Poe MD [facility] CPT-20173 Level 4 Est. Patient 10:21:30 MANAGER OF MARKETING Capo Poe MD [facility] CPT-66013 Level 3 Est. Patient 17:08:51 MANAGER OF MARKETING Zoran Arzola MD [facility] CPT-67848 Level 4 Est. Patient 09:44:42 CDT Capo Poe MD [facility] CPT-19752 Level 4 Est. Patient 10:39:29 CDT Capo Poe MD [facility] CPT-04577 Level 3 Est. Patient 17:45:23 CDT Zoran Arzola MD [facility] CPT-58879 Level 4 Est. Patient 08:50:44 CDT Capo Poe MD [facility] CPT-08477 Level 3 Est. Patient 10:39:51 MANAGER OF MARKETING Capo Poe MD [facility] CPT-97417 Level 4 Est. Patient 09:44:24 MANAGER OF MARKETING Capo Poe MD [facility] CPT-51472 Level 3 Est. Patient 14:48:42 MANAGER OF MARKETING Zoran Arzola MD [facility] CPT-10374 Level 4 Est. Patient 10:24:02 CDT Capo Poe MD [facility] CPT-51456 Level 3 Est. Patient 15:42:00 CDT Maya WRIGHTP [facility] CPT-39918 Level 4 Est. Patient 13:34:15 CDT Capo Poe MD [facility] CPT-36202 Level 3 Est. Patient 15:32:10 MANAGER OF MARKETING Zoran Arzola MD [facility] CPT-72360 Level 3 New Patient 17:17:19 MANAGER OF MARKETING Zoran Arzola MD [facility] CPT-90608 Level 4 Est. Patient 10:25:01 MANAGER OF MARKETING Capo Poe MD [facility] CPT-41296 Level 3 Est. Patient 10:10:42 CDT Zoran Arzola MD [facility] CPT-36222 Level 3 Est. Patient 22:30:02 CDT Zoran Arzola MD [facility] CPT-44001 Level 4 Est. Patient 09:54:20 CDT Capo Poe MD [facility] CPT-57284 Level 3 Est. Patient 10:48:30 CDT Capo Poe MD [facility] CPT-87341 Level 3 Est. Patient 11:24:45 CDT Capo Poe MD [facility] CPT-49954 Level 3 Est. Patient 15:23:48 MANAGER OF MARKETING Capo Poe MD [facility] CPT-55998 Level 3 Est. Patient 15:10:03 MANAGER OF MARKETING Capo Poe MD [facility] CPT-47461 Level 3 Est. Patient 16:18:40 CDT Zoran Arzola MD [facility] Procedures Code Procedure Name Date Entry Date Standard Description CPT-24380 Postop F/U Visit 21:13:08 CDT CPT-37218 Abd single AP View 15:50:24 CDT CPT-60264 Cystoscopy W/rem FB 15:21:28 CDT CPT-58803 Abd single AP View 14:06:45 CDT CPT-46065 Postop F/U Visit 09:48:32 CDT CPT-35654 Abd single AP View 13:58:26 CDT CPT-41759 Hip comp min 2V 10:27:18 MANAGER OF MARKETING CPT-08570 Urine Dip (Floor Use Only) 13:41:01 MANAGER OF MARKETING CPT-70239 Postop F/U Visit 11:17:48 CDT CPT-LR Lesion Removal 11:50:22 CDT CPT-OV Office Visit 11:50:22 CDT CPT-17327 Pneumovax 23 10:55:48 CDT CPT-38881 Administration single or combination vaccine inc oral 10 :55:48 CDT CPT-Cryo Cryotherapy 11:18:11 CDT CPT-OV Office Visit 11:18:11 CDT CPT-53614 LS spine AP and Lat 09:05:22 CDT CPT-47912 Bladder Scan 15:42:00 CDT CPT-96415 Cystoscopy 15:42:00 CDT CPT-OV Office Visit 16:37:19 MANAGER OF MARKETING CPT-87070 Bladder Scan 15:32:10 MANAGER OF MARKETING CPT-97997 Cystoscopy 15:32:10 MANAGER OF MARKETING CPT-85217 Abd single AP View 14:05:59 MANAGER OF MARKETING CPT-09045 Pill cam small bowel 09:48:39 MANAGER OF MARKETING CPT-63437 Urine Dip (Floor Use Only) 17:17:19 MANAGER OF MARKETING CPT-29302 Bladder Scan 17:17:19 MANAGER OF MARKETING CPT-OV Office Visit 11:50:26 MANAGER OF MARKETING CPT-02645 Bladder Scan 10:10:42 CDT CPT-99470 Venipuncture Draw Fee 09:14:04 CDT CPT-64735 Chest 2V Frontal and Lat 10:10:49 CDT CPT-67173 LS spine comp w obliq 11:50:11 CDT CPT-41714 Venipuncture Draw Fee 08:52:57 MANAGER OF MARKETING CPT-19614 Cystoscopy W/rem FB 18:37:28 CDT CPT-50115 Abd single AP View 16:18:40 CDT CPT-91120 Abd compl w upright 17:30:59 CDT
--- OUTSIDE RECORDS SUMMARY | 2016-11-22 17:19 | XMS REPORT | Clinical Summary ---
Author Author Admin, MARGE Organization [facility] Address Unknown Phone Unavailable Allergies, [...] elsewhere classified ANEMIA 285.9 Active Felisa Shelley [facility] Anemia, unspecified U T I-RECURRENT 599.0 Resolved [...] infection, site not specified Hematuria 599.70 Active oZran Arzola MD Hematuria, unspecified Sciatica, right 724.3 Active Capo Poe MD Sciatica Renal Calculus 592.9 Active Zoran Arzola MD Urinary calculus, unspecified Constipation 564.00 Active Capo Poe MD Constipation, unspecified NAUSEA AND VOMITING ICD-787.01 Inactive Capo Poe MD CALCULUS OF KIDNEY ICD-592.0 Inactive Caop Poe MD URETERAL CALCULUS ICD-592.1 Inactive Capo [...] po qd PRN Constipation POLYETHYLENE GLYCOL 3350 49654698447 Active Capo Poe MD Active DULERA 100-5 MCG/ACT AERO 2 puffs BID MOMETASONE FURO- FORMOTEROL FUM 40153619295 Active Capo Poe MD Active SERTRALINE HCL 100 MG ORAL TABS take 1 tab daily SERTRALINE HCL 35891779012 Active Capo Poe MD Active ZOLOFT 100 MG TABS 1 po daily SERTRALINE HCL 54140826700 No Longer Active Zoran Arzola MD Active FERROUS SULFATE 325 (65 FE) MG TABS 1 tablet by mouth daily FERROUS SULFATE 91674530457 No Longer Active Capo Poe MD Active TRAMADOL HCL 50 MG TABS 1-2 tablets every 6 hours as needed for pain TRAMADOL HCL 82758362643 Active Capo Poe MD Active HYDROCODONE-ACETAMINOPHEN 7.5-300 MG TABS take one every six hours HYDROCODONE-ACETAMINOPHEN 84113677657 No Longer Active Capo Poe MD Active TRIAMCINOLONE ACETONIDE 0.1 % OINT Apply to affected areas TID for up to 2 weeks TRIAMCINOLONE ACETONIDE 61748731882 No Longer Active Joe Vargas RN Active FERROUS SULFATE 325 (65 FE) MG TABS Take one by mouth daily FERROUS SULFATE 45231629995 No Longer Active Capo Poe MD Active TRIAMCINOLONE ACETONIDE 0.1 % OINT Apply to affected areas TID for up to 2 weeks TRIAMCINOLONE ACETONIDE 31730307417 No Longer Active Capo Poe MD Active ADULT ASPIRIN LOW STRENGTH 81 MG TBDP qd ASPIRIN 89248399769 Active Zoran Arzola MD Active ALEVE 220 MG TAB prn NAPROXEN SODIUM 55496479713 Active Capo Poe MD Active LISINOPRIL-HYDROCHLOROTHIAZIDE 10-12.5 MG TABS 1 tab by mouth daily LISINOPRIL-HYDROCHLOROTHIAZIDE 94311581682 Active Capo Poe MD Active MACROBID 100 MG CAP 1 cap by mouth twice daily NITROFURANTOIN MONOHYD MACRO 29337236335 No Longer Active Dona Becker Active AZITHROMYCIN 250 MG TABS 2 po qd x 1 day, then 1 po qd x 4 days AZITHROMYCIN 71997318298 No Longer Active Capo Poe MD Active FISH OIL 500 MG CAPS by mouth twice a day OMEGA-3 FATTY ACIDS 16820268349 Active Capo Poe MD Active FLAXSEED OIL 1000 MG CAPS Take two by mouth daily FLAXSEED (LINSEED) 88127258864 Active Zoran Arzola MD Active RED YEAST RICE 600 MG CAPS Take two by mouth daily RED YEAST RICE EXTRACT 10438935950 Active Zoran Arzola MD Active MULTIVITAMINS CAPS Take one by mouth daily MULTIPLE VITAMIN 74604424981 Active Zoran Arzola MD Active ICAPS MV TABS 2 po daily MULTIPLE VITAMINS-MINERALS 68795345978 Active Jma Arnold DO Active MACROBID 100 MG CAP 1 cap by mouth twice daily MACROBID 100 MG CAP 715133 NITROFURANTOIN MONOHYD MACRO Inactive FERROUS SULFATE 325 (65 FE) MG TABS Take one by mouth daily FERROUS SULFATE 325 (65 FE) MG TABS 705284 FERROUS SULFATE Inactive HYDROCODONE-ACETAMINOPHEN 7.5-300 MG TABS take one every six hours HYDROCODONE-ACETAMINOPHEN 7.5-300 MG TABS 177340 HYDROCODONE- ACETAMINOPHEN Inactive FERROUS SULFATE 325 (65 FE) MG TABS 1 tablet by mouth daily FERROUS SULFATE 325 (65 FE) MG TABS 944118 FERROUS SULFATE Inactive ZOLOFT 100 MG TABS 1 po daily ZOLOFT 100 MG TABS 153991 SERTRALINE HCL Inactive AZITHROMYCIN 250 MG TABS 2 po qd x 1 day, then 1 po qd x 4 days AZITHROMYCIN 250 MG TABS 0445419 AZITHROMYCIN Inactive TRIAMCINOLONE ACETONIDE 0.1 % OINT Apply to affected areas TID for up to 2 weeks TRIAMCINOLONE ACETONIDE 0.1 % OINT 1887244 TRIAMCINOLONE ACETONIDE Inactive TRIAMCINOLONE ACETONIDE 0.1 % OINT Apply to affected areas TID for up to 2 weeks TRIAMCINOLONE ACETONIDE 0.1 % OINT 2067213 TRIAMCINOLONE ACETONIDE Inactive Advance Directives Directive Description [...] CBC - Chemistry cholesterol, serum 207 mg/dL 507-375 0528/02/11 triglyceride, serum, fasting 74 mg/dL 30-200 HDL cholesterol, serum 62 mg/dL 32-96 LDL cholesterol, serum 130 mg/dL 0-130 sodium, serum 144 mmol/L 332-377 9549/02/11 potassium, serum 5.0 mmol/L 3.5-5.2 chloride, serum [...] negative Encounters Code Encounter Date Provider Facility CPT-61101 Level 3 Est. Patient 15:00:28 CDT Capo Poe MD [facility] CPT-31638 Level 3 Est. Patient 08:20:19 CDT Zoran Arzola MD [facility] CPT-39332 Level 3 Est. Patient 09:22:21 CDT Capo Poe MD [facility] CPT-72498 Level 4 Est. Patient 10:21:30 CLEANING CUSTODIAN Capo Poe MD [facility] CPT-53844 Level 3 Est. Patient 17:08:51 CLEANING CUSTODIAN Zoran Arzola MD [facility] CPT-22506 Level 4 Est. Patient 09:44:42 CDT Capo Poe MD [facility] CPT-86705 Level 4 Est. Patient 10:39:29 CDT Capo Poe MD [facility] CPT-58746 Level 3 Est. Patient 17:45:23 CDT Zoran Arzola MD [facility] CPT-30350 Level 4 Est. Patient 08:50:44 CDT Capo oPe MD [facility] CPT-43132 Level 3 Est. Patient 10:39:51 CLEANING CUSTODIAN Capo Poe MD [facility] CPT-50474 Level 4 Est. Patient 09:44:24 CLEANING CUSTODIAN Capo Poe MD [facility] CPT-17406 Level 3 Est. Patient 14:48:42 CLEANING CUSTODIAN Zoran Arzola MD [facility] CPT-69575 Level 4 Est. Patient 10:24:02 CDT Capo Poe MD [facility] CPT-70257 Level 3 Est. Patient 15:42:00 CDT Maya DUKES [facility] CPT-71332 Level 4 Est. Patient 13:34:15 CDT Capo Poe MD [facility] CPT-65357 Level 3 Est. Patient 15:32:10 CLEANING CUSTODIAN Zoran Arzola MD [facility] CPT-06673 Level 3 New Patient 17:17:19 CLEANING CUSTODIAN Zoran Arzola MD [facility] CPT-16263 Level 4 Est. Patient 10:25:01 CLEANING CUSTODIAN Capo Poe MD [facility] CPT-22000 Level 3 Est. Patient 10:10:42 CDT Zoran Arzola MD [facility] CPT-71117 Level 3 Est. Patient 22:30:02 CDT Zoran Arzola MD [facility] CPT-99670 Level 4 Est. Patient 09:54:20 CDT Capo Poe MD [facility] CPT-28777 Level 3 Est. Patient 10:48:30 CDT Capo Poe MD [facility] CPT-35282 Level 3 Est. Patient 11:24:45 CDT Capo Poe MD [facility] CPT-05641 Level 3 Est. Patient 15:23:48 CLEANING CUSTODIAN Capo Poe MD [facility] CPT-18316 Level 3 Est. Patient 15:10:03 CLEANING CUSTODIAN Capo Poe MD [facility] CPT-02208 Level 3 Est. Patient 16:18:40 CDT Zoran Arzola MD [facility] Procedures Code Procedure Name Date Entry Date Standard Description CPT-12996 Abd single AP View 08:32:00 CDT CPT-26119 Postop F/U Visit 21:13:08 CDT CPT-87712 Abd single AP View 15:50:24 CDT CPT-21709 Cystoscopy W/rem FB 15:21:28 CDT CPT-86456 Abd single AP View 14:06:45 CDT CPT-94118 Postop F/U Visit 09:48:32 CDT CPT-77710 Abd single AP View 13:58:26 CDT CPT-46748 Hip comp min 2V 10:27:18 CLEANING CUSTODIAN CPT-70756 Urine Dip (Floor Use Only) 13:41:01 CLEANING CUSTODIAN CPT-89717 Postop F/U Visit 11:17:48 CDT CPT-LR Lesion Removal 11:50:22 CDT CPT-OV Office Visit 11:50:22 CDT CPT-17460 Pneumovax 23 10:55:48 CDT CPT-96050 Administration single or combination vaccine inc oral 10 :55:48 CDT CPT-Cryo Cryotherapy 11:18:11 CDT CPT-OV Office Visit 11:18:11 CDT CPT-85387 LS spine AP and Lat 09:05:22 CDT CPT-82758 Bladder Scan 15:42:00 CDT CPT-37398 Cystoscopy 15:42:00 CDT CPT-OV Office Visit 16:37:19 CLEANING CUSTODIAN CPT-17927 Bladder Scan 15:32:10 CLEANING CUSTODIAN CPT-19444 Cystoscopy 15:32:10 CLEANING CUSTODIAN CPT-52604 Abd single AP View 14:05:59 CLEANING CUSTODIAN CPT-04414 Pill cam small bowel 09:48:39 CLEANING CUSTODIAN CPT-24073 Urine Dip (Floor Use Only) 17:17:19 CLEANING CUSTODIAN CPT-92804 Bladder Scan 17:17:19 CLEANING CUSTODIAN CPT-OV Office Visit 11:50:26 CLEANING CUSTODIAN CPT-24064 Bladder Scan 10:10:42 CDT CPT-80918 Venipuncture Draw Fee 09:14:04 CDT CPT-74045 Chest 2V Frontal and Lat 10:10:49 CDT CPT-34755 LS spine comp w obliq 11:50:11 CDT CPT-44262 Venipuncture Draw Fee 08:52:57 CLEANING CUSTODIAN CPT-05967 Cystoscopy W/rem FB 18:37:28 CDT CPT-15232 Abd single AP View 16:18:40 CDT CPT-72577 Abd compl w upright 17:30:59 CDT
--- OUTSIDE RECORDS SUMMARY | 2016-11-22 17:20 | XMS REPORT | Clinical Summary ---
Author Author Admin, QIE Organization [facility] [place] Address Unknown Phone Unavailable Allergies, Adverse Reactions, [...] calculus in bladder HEMATURIA 599.70 Resolved Capo oPe MD Hematuria, unspecified BLADDER CALCULUS 594.1 Resolved [...] deficiency 280.9 Active Jasmin Dixon [facility] Iron deficiency anemia, unspecified NAUSEA [...] 1 tab po twice daily FERROUS SULFATE 02152551947 Active Jasmin TEIXEIRA Active D ORAL TABS 2000 iu weekly D ORAL TABS Active Capo Poe MD Active CITALOPRAM HYDROBROMIDE 20 MG TABS 1 tablet by mouth daily CITALOPRAM HYDROBROMIDE 23686440461 Active Capo Poe MD Active CLARITIN 5 MG ORAL CHEW 1 tab po q day LORATADINE 79387931644 Active Felisa TEIXEIRA Active VIIBRYD STARTER PACK 10 & 20 MG ORAL KIT 1 po qd as directed 2015 VILAZODONE HCL 03234872513 No Longer Active Felisa TEIXEIRA Active HYDROXYZINE HCL 25 MG TAB 1 po qHS PRN Insomnia HYDROXYZINE HCL 61884701809 Active Capo Poe MD Active LISINOPRIL 10 MG TABS 1 tablet by mouth daily LISINOPRIL 71240392992 Active Capo Poe MD Active LORTAB 7.5-325 MG ORAL TABS 1 po q 6 hr prn pain HYDROCODONE- ACETAMINOPHEN 71367242616 No Longer Active Capo Poe MD Active FLOMAX 0.4 MG CAPS Take one by mouth daily TAMSULOSIN HCL 52862810476 No Longer Active Capo Poe MD Active TRIAMCINOLONE ACETONIDE 0.1 % CREA Apply to affected areas TID for up to 2 weeks TRIAMCINOLONE ACETONIDE 80767283666 Active Capo Poe MD Active NICOTINE 14 MG/24HR TRANS PT24 Apply/Change q 24hr NICOTINE 18896316295 No Longer Active Capo Poe MD Active TRAMADOL HCL 50 MG TABS 1-2 tablets every 6 hours as needed for pain TRAMADOL HCL 60325903675 No Longer Active Capo Poe MD Active SERTRALINE HCL 100 MG ORAL TABS take 1 tab daily SERTRALINE HCL 89377364497 No Longer Active Capo Poe MD Active LISINOPRIL-HYDROCHLOROTHIAZIDE 10-12.5 MG TABS 0.5 tab by mouth daily LISINOPRIL-HYDROCHLOROTHIAZIDE 94006403299 No Longer Active Capo Poe MD Active OMEPRAZOLE 20 MG CPDR 1 tablet by mouth daily OMEPRAZOLE 77233949910 Active Capo Poe MD Active WELLBUTRIN SR 150 MG ORAL [id number] 1 po BID BUPROPION HCL 58433865777 No Longer Active Capo Poe MD Active MIRALAX PACK 1 po qd PRN Constipation POLYETHYLENE GLYCOL 3350 51733314976 Active Capo Poe MD Active DULERA 100-5 MCG/ACT AERO 2 puffs BID MOMETASONE FURO- FORMOTEROL FUM 34215022687 Active Capo Poe MD Active ZOLOFT 100 MG TABS 1 po daily SERTRALINE HCL 78784444592 No Longer Active Zoran Arzola MD Active FERROUS SULFATE 325 (65 FE) MG TABS 1 tablet by mouth daily FERROUS SULFATE 05614318688 No Longer Active Capo Poe MD Active HYDROCODONE-ACETAMINOPHEN 7.5-300 MG TABS take one every six hours HYDROCODONE-ACETAMINOPHEN 19838566080 No Longer Active Capo Poe MD Active TRIAMCINOLONE ACETONIDE 0.1 % OINT Apply to affected areas TID for up to 2 weeks TRIAMCINOLONE ACETONIDE 10469247847 No Longer Active Joe Vargas RN Active FERROUS SULFATE 325 (65 FE) MG TABS Take one by mouth daily FERROUS SULFATE 97622375208 No Longer Active Capo Poe MD Active TRIAMCINOLONE ACETONIDE 0.1 % OINT Apply to affected areas TID for up to 2 weeks TRIAMCINOLONE ACETONIDE 97150088329 No Longer Active Capo Poe MD Active ADULT ASPIRIN LOW STRENGTH 81 MG TBDP qd ASPIRIN 41006106840 Active Zoran Arzola MD Active ALEVE 220 MG TAB prn NAPROXEN SODIUM 80571525978 Active Capo Poe MD Active MACROBID 100 MG CAP 1 cap by mouth twice daily NITROFURANTOIN MONOHYD MACRO 47906877291 No Longer Active Dona Becker Active AZITHROMYCIN 250 MG TABS 2 po qd x 1 day, then 1 po qd x 4 days AZITHROMYCIN 54952655697 No Longer Active Capo Poe MD Active FISH OIL 500 MG CAPS by mouth twice a day OMEGA-3 FATTY ACIDS 88479815842 Active Capo Poe MD Active FLAXSEED OIL 1000 MG CAPS Take two by mouth daily FLAXSEED (LINSEED) 71776861658 Active Zoran Arzola MD Active RED YEAST RICE 600 MG CAPS Take two by mouth daily RED YEAST RICE EXTRACT 31419966449 Active Zoran Arzola MD Active MULTIVITAMINS CAPS Take one by mouth daily MULTIPLE VITAMIN 73580198464 Active Zoran Arzola MD Active ICAPS MV TABS 2 po daily MULTIPLE VITAMINS-MINERALS 87967549536 Active Jam Arnold DO Active MACROBID 100 MG CAP 1 cap by mouth twice daily MACROBID 100 MG CAP 6260391 NITROFURANTOIN MONOHYD MACRO Inactive FERROUS SULFATE 325 (65 FE) MG TABS Take one by mouth daily FERROUS SULFATE 325 (65 FE) MG TABS 500476 FERROUS SULFATE Inactive HYDROCODONE-ACETAMINOPHEN 7.5-300 MG TABS take one every six hours HYDROCODONE-ACETAMINOPHEN 7.5-300 MG TABS 143423 HYDROCODONE- ACETAMINOPHEN Inactive FERROUS SULFATE 325 (65 FE) MG TABS 1 tablet by mouth daily FERROUS SULFATE 325 (65 FE) MG TABS 390405 FERROUS SULFATE Inactive ZOLOFT 100 MG TABS 1 po daily ZOLOFT 100 MG TABS 616373 SERTRALINE HCL Inactive SERTRALINE HCL 100 MG ORAL TABS take 1 tab daily SERTRALINE HCL 100 MG ORAL TABS 670540 SERTRALINE HCL Inactive TRAMADOL HCL 50 MG TABS 1-2 tablets every 6 hours as needed for pain TRAMADOL HCL 50 MG TABS 114052 TRAMADOL HCL Inactive NICOTINE 14 MG/24HR TRANS PT24 Apply/Change q 24hr NICOTINE 14 MG/24HR TRANS PT24 369758 NICOTINE Inactive FLOMAX 0.4 MG CAPS Take one by mouth daily FLOMAX 0.4 MG CAPS 673161 TAMSULOSIN HCL Inactive LORTAB 7.5-325 MG ORAL TABS 1 po q 6 hr prn pain LORTAB 7.5- 325 MG ORAL TABS 042565 HYDROCODONE-ACETAMINOPHEN Inactive VIIBRYD STARTER PACK 10 & 20 MG ORAL KIT 1 po qd as directed 2015 VIIBRYD STARTER PACK 10 & 20 MG ORAL KIT VILAZODONE HCL Inactive AZITHROMYCIN 250 MG TABS 2 po qd x 1 day, then 1 po qd x 4 days AZITHROMYCIN 250 MG TABS 0923963 AZITHROMYCIN Inactive TRIAMCINOLONE ACETONIDE 0.1 % OINT Apply to affected areas TID for up to 2 weeks TRIAMCINOLONE ACETONIDE 0.1 % OINT 6755798 TRIAMCINOLONE ACETONIDE Inactive TRIAMCINOLONE ACETONIDE 0.1 % OINT Apply to affected areas TID for up to 2 weeks TRIAMCINOLONE ACETONIDE 0.1 % OINT 9785078 TRIAMCINOLONE ACETONIDE Inactive Advance Directives Directive Description [...] ... - Chemistry sodium, serum 141 mmol/L 748-238 8267/01/27 carbon dioxide, venous blood 29.7 mmol/L 21.0-32.0 [...] ... - Chemistry sodium, serum 138 mmol/L 780-687 6849/03/18 carbon dioxide, venous blood 25.5 mmol/L 21.0-32.0 potassium, serum 4.6 mmol/L 3.5-5.2 chloride, serum 101 mmol/L 98-107 blood glucose 129 mg/dL 65-110 urea nitrogen, blood 20 mg/dL 7-18 creatinine, serum 1.87 mg/dL 0.55-1.30 alanine aminotransferase (SGPT), serum 26 U/L 12-78 aspartate aminotransferase (SGOT), serum 20 U/L 15-37 calcium, serum 8.8 mg/dL 8.5-10.1 bilirubin, serum, total 0.40 mg/dL 0.00-1.00 cholesterol, serum 251 mg/dL 027-119 5897/03/18 triglyceride, serum, fasting 135 mg/dL 30-200 HDL [...] 0-19 Encounters Code Encounter Date Provider Facility CPT-96932 Level 4 Est. Patient 09:26:11 DIRECTOR OF INFECTION PREVENTION Capo Poe MD [facility] CPT-25890 Level 4 Est. Patient 08:53:08 CDT Capo Poe MD [facility] CPT-72315 Level 4 Est. Patient 10:22:57 CDT Capo Poe MD [facility] CPT-51637 Level 4 Est. Patient 13:44:30 CDT Capo Poe MD [facility] CPT-46650 Level 3 Est. Patient 14:59:32 DIRECTOR OF INFECTION PREVENTION Capo Poe MD [facility] CPT-01744 Level 4 Est. Patient 10:46:15 DIRECTOR OF INFECTION PREVENTION Capo Poe MD [facility] CPT-09867 Level 3 Est. Patient 11:00:53 CDT Capo Poe MD [facility] CPT-38708 Level 3 Est. Patient 09:39:35 CDT Capo Poe MD [facility] CPT-62403 Level 3 Est. Patient 09:27:01 CDT Capo Poe MD [facility] CPT-16190 Level 3 Est. Patient 18:37:08 CDT Zorna Arzola MD [facility] CPT-37606 Level 3 Est. Patient 15:00:28 CDT Capo Poe MD [facility] CPT-47181 Level 3 Est. Patient 08:20:19 CDT Zoran Arzola MD [facility] CPT-73490 Level 3 Est. Patient 09:22:21 CDT Capo Poe MD [facility] CPT-74281 Level 4 Est. Patient 10:21:30 DIRECTOR OF INFECTION PREVENTION Capo Poe MD [facility] CPT-64371 Level 3 Est. Patient 17:08:51 DIRECTOR OF INFECTION PREVENTION Zoran Arzola MD [facility] CPT-78049 Level 4 Est. Patient 09:44:42 CDT Capo Poe MD [facility] CPT-34112 Level 4 Est. Patient 10:39:29 CDT Capo Poe MD [facility] CPT-08973 Level 3 Est. Patient 17:45:23 CDT Zoran Arzola MD [facility] CPT-64409 Level 4 Est. Patient 08:50:44 CDT Capo Poe MD [facility] CPT-41865 Level 3 Est. Patient 10:39:51 DIRECTOR OF INFECTION PREVENTION Capo Poe MD [facility] CPT-33956 Level 4 Est. Patient 09:44:24 DIRECTOR OF INFECTION PREVENTION Capo Poe MD [facility] CPT-19313 Level 3 Est. Patient 14:48:42 DIRECTOR OF INFECTION PREVENTION Zoran Arzola MD [facility] CPT-85829 Level 4 Est. Patient 10:24:02 CDT Capo Poe MD [facility] CPT-45018 Level 3 Est. Patient 15:42:00 CDT Maya DUKES [facility] CPT-84135 Level 4 Est. Patient 13:34:15 CDT Capo Poe MD [facility] CPT-28107 Level 3 Est. Patient 15:32:10 DIRECTOR OF INFECTION PREVENTION Zoran Arzola MD [facility] CPT-10183 Level 3 New Patient 17:17:19 DIRECTOR OF INFECTION PREVENTION Zoran Arzola MD [facility] CPT-70014 Level 4 Est. Patient 10:25:01 DIRECTOR OF INFECTION PREVENTION Capo Poe MD [facility] CPT-79584 Level 3 Est. Patient 10:10:42 CDT Zoran Arzola MD [facility] CPT-44412 Level 3 Est. Patient 22:30:02 CDT Zoran Arzola MD [facility] CPT-97932 Level 4 Est. Patient 09:54:20 CDT Capo Poe MD [facility] CPT-68736 Level 3 Est. Patient 10:48:30 CDT Capo Poe MD [facility] CPT-98272 Level 3 Est. Patient 11:24:45 CDT Capo Poe MD [facility] CPT-74732 Level 3 Est. Patient 15:23:48 DIRECTOR OF INFECTION PREVENTION Capo Poe MD [facility] CPT-34041 Level 3 Est. Patient 15:10:03 DIRECTOR OF INFECTION PREVENTION Capo Poe MD [facility] CPT-52590 Level 3 Est. Patient 16:18:40 CDT Zoran Arzola MD [facility] Procedures Code Procedure Name Date Entry Date Standard Description CPT-24382 Hemoccult IFOBT - LAB USE ONLY 14:11:43 DIRECTOR OF INFECTION PREVENTION CPT-31089 TPSA - LAB USE ONLY 10:37:52 DIRECTOR OF INFECTION PREVENTION CPT-44571 TSH - LAB USE ONLY 10:37:51 DIRECTOR OF INFECTION PREVENTION CPT-40798 CMP - LAB USE ONLY 10:37:51 DIRECTOR OF INFECTION PREVENTION CPT-18780 CBC with Diff - LAB USE ONLY 10:37:51 DIRECTOR OF INFECTION PREVENTION CPT-32838 Venipuncture Draw Fee 10:37:51 DIRECTOR OF INFECTION PREVENTION CPT-000 Give Pneumovax 10:39:30 CDT CPT-08597 Venipuncture Draw Fee 09:32:34 CDT CPT-G0438 Initial Annual Wellness Exam 10:24:35 CDT CPT-25034 Venipuncture Draw Fee 09:46:29 CDT CPT-27900 Venipuncture Draw Fee 14:30:06 CDT CPT-43536 Venipuncture Draw Fee 10:58:22 CDT CPT-98452 Abd single AP View 08:32:00 CDT CPT-66211 Postop F/U Visit 21:13:08 CDT CPT-94657 Abd single AP View 15:50:24 CDT CPT-32246 Cystoscopy W/rem FB 15:21:28 CDT CPT-63283 Abd single AP View 14:06:45 CDT CPT-93878 Postop F/U Visit 09:48:32 CDT CPT-13921 Abd single AP View 13:58:26 CDT CPT-54132 Hip comp min 2V 10:27:18 DIRECTOR OF INFECTION PREVENTION CPT-79056 Urine Dip (Floor Use Only) 13:41:01 DIRECTOR OF INFECTION PREVENTION CPT-71376 Postop F/U Visit 11:17:48 CDT CPT-LR Lesion Removal 11:50:22 CDT CPT-OV Office Visit 11:50:22 CDT CPT-32661 Pneumovax 23 10:55:48 CDT CPT-92684 Administration single or combination vaccine inc oral 10 :55:48 CDT CPT-Cryo Cryotherapy 11:18:11 CDT CPT-OV Office Visit 11:18:11 CDT CPT-59683 LS spine AP and Lat 09:05:22 CDT CPT-28773 Bladder Scan 15:42:00 CDT CPT-39532 Cystoscopy 15:42:00 CDT CPT-OV Office Visit 16:37:19 DIRECTOR OF INFECTION PREVENTION CPT-56395 Bladder Scan 15:32:10 DIRECTOR OF INFECTION PREVENTION CPT-75422 Cystoscopy 15:32:10 DIRECTOR OF INFECTION PREVENTION CPT-43105 Abd single AP View 14:05:59 DIRECTOR OF INFECTION PREVENTION CPT-92724 Pill cam small bowel 09:48:39 DIRECTOR OF INFECTION PREVENTION CPT-23841 Urine Dip (Floor Use Only) 17:17:19 DIRECTOR OF INFECTION PREVENTION CPT-97604 Bladder Scan 17:17:19 DIRECTOR OF INFECTION PREVENTION CPT-OV Office Visit 11:50:26 DIRECTOR OF INFECTION PREVENTION CPT-00483 Bladder Scan 10:10:42 CDT CPT-13124 Venipuncture Draw Fee 09:14:04 CDT CPT-22942 Chest 2V Frontal and Lat 10:10:49 CDT CPT-32010 LS spine comp w obliq 11:50:11 CDT CPT-30983 Venipuncture Draw Fee 08:52:57 DIRECTOR OF INFECTION PREVENTION CPT-48929 Cystoscopy W/rem FB 18:37:28 CDT CPT-01620 Abd single AP View 16:18:40 CDT CPT-75803 Abd compl w upright 17:30:59 CDT
--- OUTSIDE RECORDS SUMMARY | 2016-11-22 17:22 | XMS REPORT | Clinical Summary ---
Author Author Admin, QIE Organization [employer] Address Unknown Phone Unavailable Allergies, Adverse Reactions, [...] 1 tablet by mouth daily CITALOPRAM HYDROBROMIDE 24016739705 Active Capo Poe MD Active CLARITIN 5 MG ORAL CHEW 1 tab po q day LORATADINE 93833006885 Active Felisa Daphney TEIXEIRA Active VIIBRYD STARTER PACK 10 & 20 MG ORAL KIT 1 po qd as directed 2015 VILAZODONE HCL 30041434205 No Longer Active Felisa TEIXEIRA Active HYDROXYZINE HCL 25 MG TAB 1 po qHS PRN Insomnia HYDROXYZINE HCL 33860781771 Active Capo Poe MD Active LISINOPRIL 10 MG TABS 1 tablet by mouth daily LISINOPRIL 87284617300 Active Capo Poe MD Active LORTAB 7.5-325 MG ORAL TABS 1 po q 6 hr prn pain HYDROCODONE- ACETAMINOPHEN 19330574018 No Longer Active Capo Poe MD Active FLOMAX 0.4 MG CAPS Take one by mouth daily TAMSULOSIN HCL 41224052175 No Longer Active Capo Poe MD Active TRIAMCINOLONE ACETONIDE 0.1 % CREA Apply to affected areas TID for up to 2 weeks TRIAMCINOLONE ACETONIDE 06600843799 Active Capo Poe MD Active NICOTINE 14 MG/24HR TRANS PT24 Apply/Change q 24hr NICOTINE 95583033364 No Longer Active Capo Poe MD Active TRAMADOL HCL 50 MG TABS 1-2 tablets every 6 hours as needed for pain TRAMADOL HCL 22214489097 No Longer Active Capo Poe MD Active SERTRALINE HCL 100 MG ORAL TABS take 1 tab daily SERTRALINE HCL 79608564006 No Longer Active Capo Poe MD Active LISINOPRIL-HYDROCHLOROTHIAZIDE 10-12.5 MG TABS 0.5 tab by mouth daily LISINOPRIL-HYDROCHLOROTHIAZIDE 52456292111 No Longer Active Capo Poe MD Active OMEPRAZOLE 20 MG CPDR 1 tablet by mouth daily OMEPRAZOLE 95590558013 Active Capo Poe MD Active WELLBUTRIN SR 150 MG ORAL [id number] 1 po BID BUPROPION HCL 40260315968 No Longer Active Capo Poe MD Active MIRALAX PACK 1 po qd PRN Constipation POLYETHYLENE GLYCOL 3350 38413404433 Active Capo Poe MD Active DULERA 100-5 MCG/ACT AERO 2 puffs BID MOMETASONE FURO- FORMOTEROL FUM 61919446012 Active Capo Poe MD Active ZOLOFT 100 MG TABS 1 po daily SERTRALINE HCL 92617641673 No Longer Active Zoran Arzola MD Active FERROUS SULFATE 325 (65 FE) MG TABS 1 tablet by mouth daily FERROUS SULFATE 94894448816 No Longer Active Capo Poe MD Active HYDROCODONE-ACETAMINOPHEN 7.5-300 MG TABS take one every six hours HYDROCODONE-ACETAMINOPHEN 86106966933 No Longer Active Capo Poe MD Active TRIAMCINOLONE ACETONIDE 0.1 % OINT Apply to affected areas TID for up to 2 weeks TRIAMCINOLONE ACETONIDE 16758763401 No Longer Active Joe Vargas RN Active FERROUS SULFATE 325 (65 FE) MG TABS Take one by mouth daily FERROUS SULFATE 45751507745 No Longer Active Capo Poe MD Active TRIAMCINOLONE ACETONIDE 0.1 % OINT Apply to affected areas TID for up to 2 weeks TRIAMCINOLONE ACETONIDE 46007459038 No Longer Active Capo Poe MD Active ADULT ASPIRIN LOW STRENGTH 81 MG TBDP qd ASPIRIN 86312201997 Active Zoran Arzola MD Active ALEVE 220 MG TAB prn NAPROXEN SODIUM 09502187039 Active Capo Poe MD Active MACROBID 100 MG CAP 1 cap by mouth twice daily NITROFURANTOIN MONOHYD MACRO 60179160013 No Longer Active Dona Becker Active AZITHROMYCIN 250 MG TABS 2 po qd x 1 day, then 1 po qd x 4 days AZITHROMYCIN 15673739136 No Longer Active Capo Poe MD Active FISH OIL 500 MG CAPS by mouth twice a day OMEGA-3 FATTY ACIDS 17292120107 Active Capo Poe MD Active FLAXSEED OIL 1000 MG CAPS Take two by mouth daily FLAXSEED (LINSEED) 35098322969 Active Zoran Arzola MD Active RED YEAST RICE 600 MG CAPS Take two by mouth daily RED YEAST RICE EXTRACT 12253748198 Active Zoran Arzola MD Active MULTIVITAMINS CAPS Take one by mouth daily MULTIPLE VITAMIN 13646525246 Elza Arzola MD Active ICAPS MV TABS 2 po daily MULTIPLE VITAMINS-MINERALS 92317074927 Active Jam Arnold DO Active MACROBID 100 MG CAP 1 cap by mouth twice daily MACROBID 100 MG CAP 8335695 NITROFURANTOIN MONOHYD MACRO Inactive FERROUS SULFATE 325 (65 FE) MG TABS Take one by mouth daily FERROUS SULFATE 325 (65 FE) MG TABS 475117 FERROUS SULFATE Inactive HYDROCODONE-ACETAMINOPHEN 7.5-300 MG TABS take one every six hours HYDROCODONE-ACETAMINOPHEN 7.5-300 MG TABS 268234 HYDROCODONE- ACETAMINOPHEN Inactive FERROUS SULFATE 325 (65 FE) MG TABS 1 tablet by mouth daily FERROUS SULFATE 325 (65 FE) MG TABS 807641 FERROUS SULFATE Inactive ZOLOFT 100 MG TABS 1 po daily ZOLOFT 100 MG TABS 209296 SERTRALINE HCL Inactive SERTRALINE HCL 100 MG ORAL TABS take 1 tab daily SERTRALINE HCL 100 MG ORAL TABS 460995 SERTRALINE HCL Inactive TRAMADOL HCL 50 MG TABS 1-2 tablets every 6 hours as needed for pain TRAMADOL HCL 50 MG TABS 091877 TRAMADOL HCL Inactive NICOTINE 14 MG/24HR TRANS PT24 Apply/Change q 24hr NICOTINE 14 MG/24HR TRANS PT24 957539 NICOTINE Inactive FLOMAX 0.4 MG CAPS Take one by mouth daily FLOMAX 0.4 MG CAPS 368241 TAMSULOSIN HCL Inactive LORTAB 7.5-325 MG ORAL TABS 1 po q 6 hr prn pain LORTAB 7.5- 325 MG ORAL TABS 413597 HYDROCODONE-ACETAMINOPHEN Inactive VIIBRYD STARTER PACK 10 & 20 MG ORAL KIT 1 po qd as directed 2015 VIIBRYD STARTER PACK 10 & 20 MG ORAL KIT VILAZODONE HCL Inactive AZITHROMYCIN 250 MG TABS 2 po qd x 1 day, then 1 po qd x 4 days AZITHROMYCIN 250 MG TABS 6759308 AZITHROMYCIN Inactive TRIAMCINOLONE ACETONIDE 0.1 % OINT Apply to affected areas TID for up to 2 weeks TRIAMCINOLONE ACETONIDE 0.1 % OINT 0201371 TRIAMCINOLONE ACETONIDE Inactive TRIAMCINOLONE ACETONIDE 0.1 % OINT Apply to affected areas TID for up to 2 weeks TRIAMCINOLONE ACETONIDE 0.1 % OINT 1116678 TRIAMCINOLONE ACETONIDE Inactive Advance Directives Directive Description [...] ... - Chemistry sodium, serum 141 mmol/L 702-935 9716/01/27 carbon dioxide, venous blood 29.7 mmol/L 21.0-32.0 [...] ... - Chemistry sodium, serum 138 mmol/L 906-488 9233/03/18 carbon dioxide, venous blood 25.5 mmol/L 21.0-32.0 potassium, serum 4.6 mmol/L 3.5-5.2 chloride, serum 101 mmol/L 98-107 blood glucose 129 mg/dL 65-110 urea nitrogen, blood 20 mg/dL 7-18 creatinine, serum 1.87 mg/dL 0.55-1.30 alanine aminotransferase (SGPT), serum 26 U/L 12-78 aspartate aminotransferase (SGOT), serum 20 U/L 15-37 calcium, serum 8.8 mg/dL 8.5-10.1 bilirubin, serum, total 0.40 mg/dL 0.00-1.00 cholesterol, serum 251 mg/dL 450-368 4518/03/18 triglyceride, serum, fasting 135 mg/dL 30-200 HDL [...] 0-19 Encounters Code Encounter Date Provider Facility CPT-52268 Level 4 Est. Patient 09:26:11 SKIFF OPERATOR Capo Poe MD [facility] CPT-07959 Level 4 Est. Patient 08:53:08 CDT Capo Poe MD [facility] CPT-14350 Level 4 Est. Patient 10:22:57 CDT Capo Poe MD [facility] CPT-70530 Level 4 Est. Patient 13:44:30 CDT Capo Poe MD [facility] CPT-56386 Level 3 Est. Patient 14:59:32 SKIFF OPERATOR Capo Poe MD [facility] CPT-53608 Level 4 Est. Patient 10:46:15 SKIFF OPERATOR Capo Poe MD [facility] CPT-24708 Level 3 Est. Patient 11:00:53 CDT Capo Poe MD [facility] CPT-38820 Level 3 Est. Patient 09:39:35 CDT Capo Poe MD [facility] CPT-38960 Level 3 Est. Patient 09:27:01 CDT Capo Poe MD [facility] CPT-38723 Level 3 Est. Patient 18:37:08 CDT Zoran Arzola MD [facility] CPT-67593 Level 3 Est. Patient 15:00:28 CDT Capo Poe MD [facility] CPT-36358 Level 3 Est. Patient 08:20:19 CDT Zoran Arzola MD [facility] CPT-10499 Level 3 Est. Patient 09:22:21 CDT Capo Poe MD [facility] CPT-96794 Level 4 Est. Patient 10:21:30 SKIFF OPERATOR Capo Poe MD [facility] CPT-89323 Level 3 Est. Patient 17:08:51 SKIFF OPERATOR Zoran Arzola MD [facility] CPT-31203 Level 4 Est. Patient 09:44:42 CDT Capo Poe MD [facility] CPT-73622 Level 4 Est. Patient 10:39:29 CDT Capo Poe MD [facility] CPT-72676 Level 3 Est. Patient 17:45:23 CDT Zoran Arzola MD [facility] CPT-54229 Level 4 Est. Patient 08:50:44 CDT Capo Poe MD [facility] CPT-36561 Level 3 Est. Patient 10:39:51 SKIFF OPERATOR Capo Poe MD [facility] CPT-66799 Level 4 Est. Patient 09:44:24 SKIFF OPERATOR Capo Poe MD [facility] CPT-26775 Level 3 Est. Patient 14:48:42 SKIFF OPERATOR Zoran Arzola MD [facility] CPT-38680 Level 4 Est. Patient 10:24:02 CDT Capo Poe MD [facility] CPT-72250 Level 3 Est. Patient 15:42:00 CDT Maya DUKES [facility] CPT-57336 Level 4 Est. Patient 13:34:15 CDT Capo Poe MD [facility] CPT-92786 Level 3 Est. Patient 15:32:10 SKIFF OPERATOR Zoran Arzola MD [facility] CPT-62447 Level 3 New Patient 17:17:19 SKIFF OPERATOR Zoran Arzola MD [facility] CPT-28205 Level 4 Est. Patient 10:25:01 SKIFF OPERATOR Capo Poe MD [facility] CPT-02760 Level 3 Est. Patient 10:10:42 CDT Zoran Arzola MD [facility] CPT-53022 Level 3 Est. Patient 22:30:02 CDT Zoran Arzola MD [facility] CPT-50256 Level 4 Est. Patient 09:54:20 CDT Capo Poe MD [facility] CPT-55938 Level 3 Est. Patient 10:48:30 CDT Capo Poe MD [facility] CPT-18501 Level 3 Est. Patient 11:24:45 CDT Capo Poe MD [facility] CPT-59550 Level 3 Est. Patient 15:23:48 SKIFF OPERATOR Capo Poe MD [facility] CPT-82081 Level 3 Est. Patient 15:10:03 SKIFF OPERATOR Capo Poe MD [facility] CPT-17439 Level 3 Est. Patient 16:18:40 CDT Zoran Arzola MD [facility] Procedures Code Procedure Name Date Entry Date Standard Description CPT-22019 TPSA - LAB USE ONLY 10:37:52 SKIFF OPERATOR CPT-73588 TSH - LAB USE ONLY 10:37:51 SKIFF OPERATOR CPT-40447 CMP - LAB USE ONLY 10:37:51 SKIFF OPERATOR CPT-10543 CBC with Diff - LAB USE ONLY 10:37:51 SKIFF OPERATOR CPT-95416 Venipuncture Draw Fee 10:37:51 SKIFF OPERATOR CPT-000 Give Pneumovax 10:39:30 CDT CPT-91495 Venipuncture Draw Fee 09:32:34 CDT CPT-G0438 Initial Annual Wellness Exam 10:24:35 CDT CPT-35744 Venipuncture Draw Fee 09:46:29 CDT CPT-93937 Venipuncture Draw Fee 14:30:06 CDT CPT-40303 Venipuncture Draw Fee 10:58:22 CDT CPT-85628 Abd single AP View 08:32:00 CDT CPT-06384 Postop F/U Visit 21:13:08 CDT CPT-39877 Abd single AP View 15:50:24 CDT CPT-64284 Cystoscopy W/rem FB 15:21:28 CDT CPT-93006 Abd single AP View 14:06:45 CDT CPT-65768 Postop F/U Visit 09:48:32 CDT CPT-63793 Abd single AP View 13:58:26 CDT CPT-33322 Hip comp min 2V 10:27:18 SKIFF OPERATOR CPT-00167 Urine Dip (Floor Use Only) 13:41:01 SKIFF OPERATOR CPT-33149 Postop F/U Visit 11:17:48 CDT CPT-LR Lesion Removal 11:50:22 CDT CPT-OV Office Visit 11:50:22 CDT CPT-40679 Pneumovax 23 10:55:48 CDT CPT-12285 Administration single or combination vaccine inc oral 10 :55:48 CDT CPT-Cryo Cryotherapy 11:18:11 CDT CPT-OV Office Visit 11:18:11 CDT CPT-41891 LS spine AP and Lat 09:05:22 CDT CPT-40356 Bladder Scan 15:42:00 CDT CPT-08558 Cystoscopy 15:42:00 CDT CPT-OV Office Visit 16:37:19 SKIFF OPERATOR CPT-45365 Bladder Scan 15:32:10 SKIFF OPERATOR CPT-44470 Cystoscopy 15:32:10 SKIFF OPERATOR CPT-95315 Abd single AP View 14:05:59 SKIFF OPERATOR CPT-85584 Pill cam small bowel 09:48:39 SKIFF OPERATOR CPT-37533 Urine Dip (Floor Use Only) 17:17:19 SKIFF OPERATOR CPT-39337 Bladder Scan 17:17:19 SKIFF OPERATOR CPT-OV Office Visit 11:50:26 SKIFF OPERATOR CPT-91089 Bladder Scan 10:10:42 CDT CPT-61905 Venipuncture Draw Fee 09:14:04 CDT CPT-96944 Chest 2V Frontal and Lat 10:10:49 CDT CPT-98718 LS spine comp w obliq 11:50:11 CDT CPT-67437 Venipuncture Draw Fee 08:52:57 SKIFF OPERATOR CPT-74330 Cystoscopy W/rem FB 18:37:28 CDT CPT-73564 Abd single AP View 16:18:40 CDT CPT-23493 Abd compl w upright 17:30:59 CDT
--- OUTSIDE RECORDS SUMMARY | 2016-11-22 17:22 | XMS REPORT ---
Author Author Car [employer] [facility] Medical Staff Organization [facility] Address [address] [place] [id number] Phone [phone] Care Team Providers Care [employer] Informatics Specialist Name Role Phone KRISTINA MENJIVAR MD PP [phone] Summary purpose TRANSITION OF CARE AUTO GENERATION [...] Allergen Category Ingredient Status Reaction Severity Onset Ntbwkck-Qco-Hhm Reductase Inhibitors Drug Allergy Uqdunjx-Qto-Bwd Reductase Inhibitors Confirmed or Verified BACK PAIN [...]
--- OUTSIDE RECORDS SUMMARY | 2016-11-22 17:23 | XMS REPORT | Clinical Summary ---
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 Simin [...] MG TABS 1 daily for infection LEVOFLOXACIN 29306396939 Active Leanna Baker APRN Active AZITHROMYCIN 250 MG ORAL TABS 2 po qd x 1, then 1 po qd x 4 AZITHROMYCIN 61759204175 Active Capo Poe MD Active PREDNISONE 20 MG ORAL TABS 2 po qd x 5 days PREDNISONE 89327874048 No Longer Active Capo Poe MD Active CARAFATE 1 GM ORAL TABS 1 tid SUCRALFATE 12360057377 Active Capo Poe MD Active RANITIDINE HCL 150 MG ORAL TABS 1 bid RANITIDINE HCL 05442248192 Active Capo Poe MD Active MULTIVITAMINS CAPS Take one by mouth daily MULTIPLE VITAMIN 08589745315 No Longer Active Capo Poe MD Active LISINOPRIL 10 MG TABS 1 tablet by mouth daily LISINOPRIL 20798575673 No Longer Active Capo Poe MD Active EQL IRON SUPPLEMENT THERAPY 325 MG ORAL TABS 1 tab po twice daily FERROUS SULFATE 27782430776 Active Jasmin Arboledalas RMA Active D ORAL TABS 2000 iu weekly D ORAL TABS Active Capo Poe MD Active CITALOPRAM HYDROBROMIDE 20 MG TABS 1 tablet by mouth daily CITALOPRAM HYDROBROMIDE 27901518164 Active Capo Poe MD Active CLARITIN 5 MG ORAL CHEW 1 tab po q day LORATADINE 42034494079 Active Felisa Daphney RMA Active VIIBRYD STARTER PACK 10 & 20 MG ORAL KIT 1 po qd as directed 2015 VILAZODONE HCL 16876920384 No Longer Active Felisa Daphney RMA Active HYDROXYZINE HCL 25 MG TAB 1 po qHS PRN Insomnia HYDROXYZINE HCL 37528318950 Active Capo Poe MD Active LORTAB 7.5-325 MG ORAL TABS 1 po q 6 hr prn pain HYDROCODONE- ACETAMINOPHEN 29883107742 No Longer Active Capo Poe MD Active FLOMAX 0.4 MG CAPS Take one by mouth daily TAMSULOSIN HCL 41374983671 No Longer Active Capo Poe MD Active TRIAMCINOLONE ACETONIDE 0.1 % CREA Apply to affected areas TID for up to 2 weeks TRIAMCINOLONE ACETONIDE 30072073441 Active Capo Poe MD Active NICOTINE 14 MG/24HR TRANS PT24 Apply/Change q 24hr NICOTINE 87382142985 No Longer Active Capo Poe MD Active TRAMADOL HCL 50 MG TABS 1-2 tablets every 6 hours as needed for pain TRAMADOL HCL 64649897813 No Longer Active Capo Poe MD Active SERTRALINE HCL 100 MG ORAL TABS take 1 tab daily SERTRALINE HCL 49870886450 No Longer Active Capo Poe MD Active LISINOPRIL-HYDROCHLOROTHIAZIDE 10-12.5 MG TABS 0.5 tab by mouth daily LISINOPRIL-HYDROCHLOROTHIAZIDE 35036912821 No Longer Active Capo Poe MD Active OMEPRAZOLE 20 MG CPDR 1 tablet by mouth daily OMEPRAZOLE 53412983356 Active Capo Poe MD Active WELLBUTRIN SR 150 MG ORAL [id number] 1 po BID BUPROPION HCL 87920117662 No Longer Active Capo Poe MD Active MIRALAX PACK 1 po qd PRN Constipation POLYETHYLENE GLYCOL 3350 93000645590 Active Capo Poe MD Active DULERA 100-5 MCG/ACT AERO 2 puffs BID MOMETASONE FURO- FORMOTEROL FUM 83889915239 Active Capo Poe MD Active ZOLOFT 100 MG TABS 1 po daily SERTRALINE HCL 32896580497 No Longer Active Zoran Arzola MD Active FERROUS SULFATE 325 (65 FE) MG TABS 1 tablet by mouth daily FERROUS SULFATE 14730009258 No Longer Active Capo Poe MD Active HYDROCODONE-ACETAMINOPHEN 7.5-300 MG TABS take one every six hours HYDROCODONE-ACETAMINOPHEN 40977036790 No Longer Active Capo Poe MD Active TRIAMCINOLONE ACETONIDE 0.1 % OINT Apply to affected areas TID for up to 2 weeks TRIAMCINOLONE ACETONIDE 89633736764 No Longer Active Joe Vargas RN Active FERROUS SULFATE 325 (65 FE) MG TABS Take one by mouth daily FERROUS SULFATE 29309684351 No Longer Active Capo Poe MD Active TRIAMCINOLONE ACETONIDE 0.1 % OINT Apply to affected areas TID for up to 2 weeks TRIAMCINOLONE ACETONIDE 17934619464 No Longer Active Capo Poe MD Active ADULT ASPIRIN LOW STRENGTH 81 MG TBDP qd ASPIRIN 94792086566 Active Zoran Arzola MD Active ALEVE 220 MG TAB prn NAPROXEN SODIUM 71866335300 Active Capo Poe MD Active MACROBID 100 MG CAP 1 cap by mouth twice daily NITROFURANTOIN MONOHYD MACRO 88512065362 No Longer Active Dona Becker Active AZITHROMYCIN 250 MG TABS 2 po qd x 1 day, then 1 po qd x 4 days AZITHROMYCIN 61085286854 No Longer Active Capo Poe MD Active FISH OIL 500 MG CAPS by mouth twice a day OMEGA-3 FATTY ACIDS 94078642642 Active Capo Poe MD Active FLAXSEED OIL 1000 MG CAPS Take two by mouth daily FLAXSEED (LINSEED) 64634347367 Active Zoran Arzola MD Active RED YEAST RICE 600 MG CAPS Take two by mouth daily RED YEAST RICE EXTRACT 26147664413 Active Zoran Arzola MD Active ICAPS MV TABS 2 po daily MULTIPLE VITAMINS-MINERALS 59494962191 Active Jam Arnold DO Active MACROBID 100 MG CAP 1 cap by mouth twice daily MACROBID 100 MG CAP 3573206 NITROFURANTOIN MONOHYD MACRO Inactive FERROUS SULFATE 325 (65 FE) MG TABS Take one by mouth daily FERROUS SULFATE 325 (65 FE) MG TABS 240317 FERROUS SULFATE Inactive HYDROCODONE-ACETAMINOPHEN 7.5-300 MG TABS take one every six hours HYDROCODONE-ACETAMINOPHEN 7.5-300 MG TABS 572605 HYDROCODONE- ACETAMINOPHEN Inactive FERROUS SULFATE 325 (65 FE) MG TABS 1 tablet by mouth daily FERROUS SULFATE 325 (65 FE) MG TABS 949830 FERROUS SULFATE Inactive ZOLOFT 100 MG TABS 1 po daily ZOLOFT 100 MG TABS 984132 SERTRALINE HCL Inactive SERTRALINE HCL 100 MG ORAL TABS take 1 tab daily SERTRALINE HCL 100 MG ORAL TABS 035018 SERTRALINE HCL Inactive TRAMADOL HCL 50 MG TABS 1-2 tablets every 6 hours as needed for pain TRAMADOL HCL 50 MG TABS 651034 TRAMADOL HCL Inactive NICOTINE 14 MG/24HR TRANS PT24 Apply/Change q 24hr NICOTINE 14 MG/24HR TRANS PT24 900714 NICOTINE Inactive FLOMAX 0.4 MG CAPS Take one by mouth daily FLOMAX 0.4 MG CAPS 191935 TAMSULOSIN HCL Inactive LORTAB 7.5-325 MG ORAL TABS 1 po q 6 hr prn pain LORTAB 7.5- 325 MG ORAL TABS HYDROCODONE-ACETAMINOPHEN Inactive VIIBRYD STARTER PACK 10 & 20 MG ORAL KIT 1 po qd as directed 2015 VIIBRYD STARTER PACK 10 & 20 MG ORAL KIT VILAZODONE HCL Inactive LISINOPRIL 10 MG TABS 1 tablet by mouth daily LISINOPRIL 10 MG TABS 118469 LISINOPRIL Inactive MULTIVITAMINS CAPS Take one by mouth daily MULTIVITAMINS CAPS MULTIPLE VITAMIN Inactive AZITHROMYCIN 250 MG TABS 2 po qd x 1 day, then 1 po qd x 4 days AZITHROMYCIN 250 MG TABS 3774714 AZITHROMYCIN Inactive TRIAMCINOLONE ACETONIDE 0.1 % OINT Apply to affected areas TID for up to 2 weeks TRIAMCINOLONE ACETONIDE 0.1 % OINT 5758329 TRIAMCINOLONE ACETONIDE Inactive TRIAMCINOLONE ACETONIDE 0.1 % OINT Apply to affected areas TID for up to 2 weeks TRIAMCINOLONE ACETONIDE 0.1 % OINT 9568503 TRIAMCINOLONE ACETONIDE Inactive PREDNISONE 20 MG ORAL TABS 2 po qd x 5 days PREDNISONE 20 MG ORAL TABS 935233 PREDNISONE Inactive Advance Directives Directive Description Start [...] temperature weight E&M 146.1 [lb_av] Weight Measured Diagnostic Results Date Name Value Unit Range Description Chart Maintenance: Hemoccult added to flow sheet - Chemistry occult blood, stool (E&M) Positive Lab Report: CBC W/DIFF, Comp. Metabolic Panel - Chemistry sodium, serum 137 mmol/L 419-754 5464/07/26 carbon dioxide, venous blood 27.3 mmol/L 21.0-32.0 [...] ... - Chemistry sodium, serum 141 mmol/L 057-635 5370/01/27 carbon dioxide, venous blood 29.7 mmol/L 21.0-32.0 [...] % 11.0-15.0 platelet count 214 THOUSAND/UL 10*3/mm3 509-980 8499/03/31 mean platelet volume 8.4 fL 7.5-12.5 Encounters Code Encounter Date Provider Facility CPT-12454 Level 3 Est. Patient 11:31:49 [facility] Level [facility] Est. Patient 09:44:06 CDT Capo Poe MD [facility] CPT-21520 Level 4 Est. Patient 09:26:11 COMMERCIAL RETOUCHER Capo Poe MD [facility] CPT-90483 Level 4 Est. Patient 08:53:08 CDT Capo Poe MD [facility] CPT-48282 Level 4 Est. Patient 10:22:57 CDT Capo Poe MD [facility] CPT-38908 Level 4 Est. Patient 13:44:30 CDT Capo Poe MD [facility] CPT-49384 Level 3 Est. Patient 14:59:32 COMMERCIAL RETOUCHER Capo Poe MD [facility] CPT-84203 Level 4 Est. Patient 10:46:15 COMMERCIAL RETOUCHER Capo Poe MD [facility] CPT-87876 Level 3 Est. Patient 11:00:53 CDT Capo Poe MD [facility] CPT-18813 Level 3 Est. Patient 09:39:35 CDT Capo Poe MD [facility] CPT-18966 Level 3 Est. Patient 09:27:01 CDT Capo Poe MD [facility] CPT-11022 Level 3 Est. Patient 18:37:08 CDT Zoran Arzola MD [facility] CPT-18660 Level 3 Est. Patient 15:00:28 CDT Capo Poe MD [facility] CPT-29184 Level 3 Est. Patient 08:20:19 CDT Zoran Arzola MD [facility] CPT-08865 Level 3 Est. Patient 09:22:21 CDT Capo Poe MD [facility] CPT-67101 Level 4 Est. Patient 10:21:30 COMMERCIAL RETOUCHER Capo Poe MD [facility] CPT-50063 Level 3 Est. Patient 17:08:51 COMMERCIAL RETOUCHER Zoran Arzola MD [facility] CPT-15362 Level 4 Est. Patient 09:44:42 CDT Capo Poe MD [facility] CPT-13494 Level 4 Est. Patient 10:39:29 CDT Capo Poe MD [facility] CPT-40449 Level 3 Est. Patient 17:45:23 CDT Zoran Arzola MD [facility] CPT-92747 Level 4 Est. Patient 08:50:44 CDT Capo Poe MD [facility] CPT-00021 Level 3 Est. Patient 10:39:51 COMMERCIAL RETOUCHER Capo Poe MD [facility] CPT-18082 Level 4 Est. Patient 09:44:24 COMMERCIAL RETOUCHER Capo Poe MD [facility] CPT-24860 Level 3 Est. Patient 14:48:42 COMMERCIAL RETOUCHER Zoran Arzola MD [facility] CPT-26803 Level 4 Est. Patient 10:24:02 CDT Capo Poe MD [facility] CPT-17655 Level 3 Est. Patient 15:42:00 CDT Maya DUKES [facility] CPT-11029 Level 4 Est. Patient 13:34:15 CDT Capo Poe MD [facility] CPT-19606 Level 3 Est. Patient 15:32:10 COMMERCIAL RETOUCHER Zoran Arzola MD [facility] CPT-20724 Level 3 New Patient 17:17:19 COMMERCIAL RETOUCHER Zoran Arzola MD [facility] CPT-65256 Level 4 Est. Patient 10:25:01 COMMERCIAL RETOUCHER Capo Poe MD [facility] CPT-09983 Level 3 Est. Patient 10:10:42 CDT Zoran Arzola MD [facility] CPT-56222 Level 3 Est. Patient 22:30:02 CDT Zoran Arzola MD [facility] CPT-01485 Level 4 Est. Patient 09:54:20 CDT Capo Poe MD [facility] CPT-26487 Level 3 Est. Patient 10:48:30 CDT Capo Poe MD [facility] CPT-87822 Level 3 Est. Patient 11:24:45 CDT Capo Poe MD [facility] CPT-52384 Level 3 Est. Patient 15:23:48 COMMERCIAL RETOUCHER Capo Poe MD [facility] CPT-95168 Level 3 Est. Patient 15:10:03 COMMERCIAL RETOUCHER Capo Poe MD [facility] CPT-50340 Level 3 Est. Patient 16:18:40 CDT Zoran Arzola MD [facility] Procedures Code Procedure Name Date Entry Date Standard Description CPT-61815 Chest 2V Frontal and Lat - XRAY USE ONLY 11:51:24 CDT CPT-18402 Venipuncture Draw Fee 11:31:49 CDT CPT-57361 Hemoccult IFOBT - LAB USE ONLY 14:11:43 COMMERCIAL RETOUCHER CPT-98987 TPSA - LAB USE ONLY 10:37:52 COMMERCIAL RETOUCHER CPT-96254 TSH - LAB USE ONLY 10:37:51 COMMERCIAL RETOUCHER CPT-09952 CMP - LAB USE ONLY 10:37:51 COMMERCIAL RETOUCHER CPT-09766 CBC with Diff - LAB USE ONLY 10:37:51 COMMERCIAL RETOUCHER CPT-90235 Venipuncture Draw Fee 10:37:51 COMMERCIAL RETOUCHER CPT-000 Give Pneumovax 10:39:30 CDT CPT-89775 Venipuncture Draw Fee 09:32:34 CDT CPT-G0438 Initial Annual Wellness Exam 10:24:35 CDT CPT-09203 Venipuncture Draw Fee 09:46:29 CDT CPT-30631 Venipuncture Draw Fee 14:30:06 CDT CPT-43236 Venipuncture Draw Fee 10:58:22 CDT CPT-94992 Abd single AP View 08:32:00 CDT CPT-66557 Postop F/U Visit 21:13:08 CDT CPT-95676 Abd single AP View 15:50:24 CDT CPT-77107 Cystoscopy W/rem FB 15:21:28 CDT CPT-40321 Abd single AP View 14:06:45 CDT CPT-68137 Postop F/U Visit 09:48:32 CDT CPT-32980 Abd single AP View 13:58:26 CDT CPT-96052 Hip comp min 2V 10:27:18 COMMERCIAL RETOUCHER CPT-16473 Urine Dip (Floor Use Only) 13:41:01 COMMERCIAL RETOUCHER CPT-39116 Postop F/U Visit 11:17:48 CDT CPT-LR Lesion Removal 11:50:22 CDT CPT-OV Office Visit 11:50:22 CDT CPT-97274 Pneumovax 23 10:55:48 CDT CPT-79554 Administration single or combination vaccine inc oral 10 :55:48 CDT CPT-Cryo Cryotherapy 11:18:11 CDT CPT-OV Office Visit 11:18:11 CDT CPT-87467 LS spine AP and Lat 09:05:22 CDT CPT-87653 Bladder Scan 15:42:00 CDT CPT-48801 Cystoscopy 15:42:00 CDT CPT-OV Office Visit 16:37:19 COMMERCIAL RETOUCHER CPT-64842 Bladder Scan 15:32:10 COMMERCIAL RETOUCHER CPT-05501 Cystoscopy 15:32:10 COMMERCIAL RETOUCHER CPT-97725 Abd single AP View 14:05:59 COMMERCIAL RETOUCHER CPT-96048 Pill cam small bowel 09:48:39 COMMERCIAL RETOUCHER CPT-27528 Urine Dip (Floor Use Only) 17:17:19 COMMERCIAL RETOUCHER CPT-06657 Bladder Scan 17:17:19 COMMERCIAL RETOUCHER CPT-OV Office Visit 11:50:26 COMMERCIAL RETOUCHER CPT-01316 Bladder Scan 10:10:42 CDT CPT-13307 Venipuncture Draw Fee 09:14:04 CDT CPT-56891 Chest 2V Frontal and Lat 10:10:49 CDT CPT-71146 LS spine comp w obliq 11:50:11 CDT CPT-24001 Venipuncture Draw Fee 08:52:57 COMMERCIAL RETOUCHER CPT-48601 Cystoscopy W/rem FB 18:37:28 CDT CPT-39454 Abd single AP View 16:18:40 CDT CPT-38965 Abd compl w upright 17:30:59 CDT
--- OUTSIDE RECORDS SUMMARY | 2016-11-22 17:24 | XMS REPORT ---
Author [facility] Organization [facility] Address [address] [place], [place] [id number] Phone [phone] Care Team Providers Care Make Up Operator Name Role Phone KRISTINA MENJIVAR MD PP [phone] KRISTINA MENJIVAR MD PP [phone] Summary purpose TRANSITION OF CARE AUTO GENERATION [...] Allergen Category Ingredient Status Reaction Severity Onset Arolxcc-Hld-Orq Reductase Inhibitors Drug Allergy Qxixeot-Eug-Hai Reductase Inhibitors Confirmed or Verified BACK PAIN morphine Drug Allergy morphine Confirmed or Verified Swelling Mild Adult Nitrofurantoin Drug Allergy Nitrofurantoin Confirmed or Verified Immunizations No immunizations recorded for this patient visit Relevant diagnostic tests and/or laboratory data RESULTS Radiology Results [id number] RETROGRADE PYELOGRAM PACs Image DATE OF EXAM: May 22 2014 RAD 1274-RETROGRADE PYELOGRAM : RADIOLOGY REPORT DATE OF SERVICE: 05/22/14 HISTORY: Locate ureteric calculi RIGHT RETROGRADE PYELOGRAM SUPERVISION AND [id number] HOURS There is a large right renal [...] Placement of right ureteric stent. MD DIANE Mueller/nv05/22/2014 14:42:00 / 05/22/2014 14:44:52 cc:Dr. Salomón Arzola This document has been electronically Signed by: On: DATE OF EXAM: May 22 2014 RAD 1274-RETROGRADE PYELOGRAM : RADIOLOGY REPORT DATE OF SERVICE: 05/22/14 HISTORY: Locate ureteric calculi RIGHT RETROGRADE PYELOGRAM SUPERVISION AND [id number] HOURS There is a large right renal [...] Placement of right ureteric stent. MD DIANE Mueller/nv05/22/2014 14:42:00 / 05/22/2014 14:44:52 cc:Dr. Salomón Arzola This document has been electronically Signed by: ANGELIA SHUKLA On: May 22 20144:47P RIGHT URETEROSCOPY STONE EXTRA W/H LASER Result Amended on 2014-05-22 at 16:47:21. Previous status was CA. RIGHT URETEROSCOPY STONE EXTRA W/H LASER [id number] ABDOMEN 1 VIEW PACs Image DATE OF [...] Large right renal pelvic calculus. MD DIANE Mueller/nv05/22/2014 10:54:00 / 05/22/2014 10:57:03 cc:Dr. Salomón Arzola [...] Large right renal pelvic calculus. MD DIANE Mueller/nv05/22/2014 10:54:00 / 05/22/2014 10:57:03 cc:Dr. Salomón Arzola This document has been electronically Signed by: ANGELIA SHUKLA On: May 22 2014 12:37P RIGHT URETEROSCOPY STONE EXTRA W/H LASER Result Amended on 2014-05-22 at 12:38:00. Previous status was CA. RIGHT URETEROSCOPY STONE EXTRA W/H LASER History of procedures No procedures recorded for this patient visit. Functional status Functional Status Finding Observation Time Hearing Prob Loc none :42 Vision Problems yes :44 Vision Correct Dev glasses :44 Ambulation Asst Dev none :42 Range of Motion full :10 Muscle Strength RUE 5 ROM full resist :10 Muscle Strength RLE 5 ROM full resist :10 Muscle Strength LUE 5 ROM full resist :10 Muscle Strength LLE 5 ROM full resist :10 Transfers assist x 1 :10 Ambulation in room :10 Balance steady :10 Bathing Assistance none :42 Eating Assistance none :42 Dressing Assistance none :42 Toileting Assistance none :42 Transfer Assistance none :42 Decline Slf Care/Mob no :42 Phys Cond Stable yes :42 Nutrition normal :10 Diet regular : Oral Cavity moist and intact : Teeth dentures :10 Dental Hygiene good : Abdomen Appearance flat : Abdomen soft : Bowel Sounds present :10 NG Tube no :10 Feeding Tube none : Barnes no :10 Cont Bladder Irr no :10 Ostomy no :10 Stool normal : Urination dysuria :10 Quality sym/unlabored :10 Cough [...] 90bpm no : Respirations > 20 no :10 Systolic <90 no :10 headache stiff neck no :10 Rapid Resp no :10 IV Site Location R wrist :00 IV Type peripheral :10 IV Site Information discontinued :00 IV Site Rishi 18 :10 IV Site Appearance WNL :10 IV Site Color clear :10 IV Site Patent yes :10 Dressing Type occlusive :10 Nursing Note Discharge instr provided, pt verb understanding. Pt dc'd to home in stable condition ambulatory with in personal vehical. Belongings intact. 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
--- OUTSIDE RECORDS SUMMARY | 2016-11-22 17:25 | XMS REPORT | Clinical Summary ---
Author Author Admin, QIE Organization [facility] Address Unknown Phone Unavailable Allergies, Adverse Reactions, [...] deficiency 280.9 Active Jasmin Dixon [facility] Iron deficiency anemia, unspecified NAUSEA AND VOMITING [...] 1 tab po twice daily FERROUS SULFATE 27619430836 Active Jasmin TEIXEIRA Active D ORAL TABS 2000 iu weekly D ORAL TABS Active Capo Poe MD Active CITALOPRAM HYDROBROMIDE 20 MG TABS 1 tablet by mouth daily CITALOPRAM HYDROBROMIDE 22102462945 Active Capo Poe MD Active CLARITIN 5 MG ORAL CHEW 1 tab po q day LORATADINE 65945788620 Active Felisa TEIXEIRA Active VIIBRYD STARTER PACK 10 & 20 MG ORAL KIT 1 po qd as directed 2015 VILAZODONE HCL 25763766639 No Longer Active Felisa TEIXEIRA Active HYDROXYZINE HCL 25 MG TAB 1 po qHS PRN Insomnia HYDROXYZINE HCL 51642012898 Active Capo Poe MD Active LISINOPRIL 10 MG TABS 1 tablet by mouth daily LISINOPRIL 85270313115 Active Capo Poe MD Active LORTAB 7.5-325 MG ORAL TABS 1 po q 6 hr prn pain HYDROCODONE- ACETAMINOPHEN 40087961889 No Longer Active Capo Poe MD Active FLOMAX 0.4 MG CAPS Take one by mouth daily TAMSULOSIN HCL 30307792387 No Longer Active Capo Poe MD Active TRIAMCINOLONE ACETONIDE 0.1 % CREA Apply to affected areas TID for up to 2 weeks TRIAMCINOLONE ACETONIDE 59975746660 Active Capo Poe MD Active NICOTINE 14 MG/24HR TRANS PT24 Apply/Change q 24hr NICOTINE 00972164789 No Longer Active Capo Poe MD Active TRAMADOL HCL 50 MG TABS 1-2 tablets every 6 hours as needed for pain TRAMADOL HCL 42844124207 No Longer Active Capo Poe MD Active SERTRALINE HCL 100 MG ORAL TABS take 1 tab daily SERTRALINE HCL 04206606787 No Longer Active Capo Poe MD Active LISINOPRIL-HYDROCHLOROTHIAZIDE 10-12.5 MG TABS 0.5 tab by mouth daily LISINOPRIL-HYDROCHLOROTHIAZIDE 20996722745 No Longer Active Capo Poe MD Active OMEPRAZOLE 20 MG CPDR 1 tablet by mouth daily OMEPRAZOLE 81713817261 Active Capo Poe MD Active WELLBUTRIN SR 150 MG ORAL [id number] 1 po BID BUPROPION HCL 08293805724 No Longer Active Capo Poe MD Active MIRALAX PACK 1 po qd PRN Constipation POLYETHYLENE GLYCOL 3350 87245821447 Active Capo Poe MD Active DULERA 100-5 MCG/ACT AERO 2 puffs BID MOMETASONE FURO- FORMOTEROL FUM 96909079666 Active Capo Poe MD Active ZOLOFT 100 MG TABS 1 po daily SERTRALINE HCL 43830224472 No Longer Active Zoran Arzola MD Active FERROUS SULFATE 325 (65 FE) MG TABS 1 tablet by mouth daily FERROUS SULFATE 29546383522 No Longer Active Capo Poe MD Active HYDROCODONE-ACETAMINOPHEN 7.5-300 MG TABS take one every six hours HYDROCODONE-ACETAMINOPHEN 15745761120 No Longer Active Capo Poe MD Active TRIAMCINOLONE ACETONIDE 0.1 % OINT Apply to affected areas TID for up to 2 weeks TRIAMCINOLONE ACETONIDE 65531869548 No Longer Active Joe Vargas RN Active FERROUS SULFATE 325 (65 FE) MG TABS Take one by mouth daily FERROUS SULFATE 91295332832 No Longer Active Capo Poe MD Active TRIAMCINOLONE ACETONIDE 0.1 % OINT Apply to affected areas TID for up to 2 weeks TRIAMCINOLONE ACETONIDE 42768958329 No Longer Active Capo Poe MD Active ADULT ASPIRIN LOW STRENGTH 81 MG TBDP qd ASPIRIN 26571222975 Active Zoran Arzola MD Active ALEVE 220 MG TAB prn NAPROXEN SODIUM 71572592978 Active Capo Poe MD Active MACROBID 100 MG CAP 1 cap by mouth twice daily NITROFURANTOIN MONOHYD MACRO 46558718191 No Longer Active Dona Becker Active AZITHROMYCIN 250 MG TABS 2 po qd x 1 day, then 1 po qd x 4 days AZITHROMYCIN 13877657226 No Longer Active Capo Poe MD Active FISH OIL 500 MG CAPS by mouth twice a day OMEGA-3 FATTY ACIDS 11289278287 Active Capo Poe MD Active FLAXSEED OIL 1000 MG CAPS Take two by mouth daily FLAXSEED (LINSEED) 94395818696 Active Zoran Arzola MD Active RED YEAST RICE 600 MG CAPS Take two by mouth daily RED YEAST RICE EXTRACT 76492960474 Active Zoran Arzola MD Active MULTIVITAMINS CAPS Take one by mouth daily MULTIPLE VITAMIN 22312850777 Active Zoran Arzola MD Active ICAPS MV TABS 2 po daily MULTIPLE VITAMINS-MINERALS 30052624491 Active Jam Arnold DO Active MACROBID 100 MG CAP 1 cap by mouth twice daily MACROBID 100 MG CAP 1689277 NITROFURANTOIN MONOHYD MACRO Inactive FERROUS SULFATE 325 (65 FE) MG TABS Take one by mouth daily FERROUS SULFATE 325 (65 FE) MG TABS 362037 FERROUS SULFATE Inactive HYDROCODONE-ACETAMINOPHEN 7.5-300 MG TABS take one every six hours HYDROCODONE-ACETAMINOPHEN 7.5-300 MG TABS 643799 HYDROCODONE- ACETAMINOPHEN Inactive FERROUS SULFATE 325 (65 FE) MG TABS 1 tablet by mouth daily FERROUS SULFATE 325 (65 FE) MG TABS 525964 FERROUS SULFATE Inactive ZOLOFT 100 MG TABS 1 po daily ZOLOFT 100 MG TABS 073372 SERTRALINE HCL Inactive SERTRALINE HCL 100 MG ORAL TABS take 1 tab daily SERTRALINE HCL 100 MG ORAL TABS 119054 SERTRALINE HCL Inactive TRAMADOL HCL 50 MG TABS 1-2 tablets every 6 hours as needed for pain TRAMADOL HCL 50 MG TABS 747166 TRAMADOL HCL Inactive NICOTINE 14 MG/24HR TRANS PT24 Apply/Change q 24hr NICOTINE 14 MG/24HR TRANS PT24 419190 NICOTINE Inactive FLOMAX 0.4 MG CAPS Take one by mouth daily FLOMAX 0.4 MG CAPS 939989 TAMSULOSIN HCL Inactive LORTAB 7.5-325 MG ORAL TABS 1 po q 6 hr prn pain LORTAB 7.5- 325 MG ORAL TABS 153370 HYDROCODONE-ACETAMINOPHEN Inactive VIIBRYD STARTER PACK 10 & 20 MG ORAL KIT 1 po qd as directed 2015 VIIBRYD STARTER PACK 10 & 20 MG ORAL KIT VILAZODONE HCL Inactive AZITHROMYCIN 250 MG TABS 2 po qd x 1 day, then 1 po qd x 4 days AZITHROMYCIN 250 MG TABS 2636335 AZITHROMYCIN Inactive TRIAMCINOLONE ACETONIDE 0.1 % OINT Apply to affected areas TID for up to 2 weeks TRIAMCINOLONE ACETONIDE 0.1 % OINT 0747395 TRIAMCINOLONE ACETONIDE Inactive TRIAMCINOLONE ACETONIDE 0.1 % OINT Apply to affected areas TID for up to 2 weeks TRIAMCINOLONE ACETONIDE 0.1 % OINT 6071163 TRIAMCINOLONE ACETONIDE Inactive Advance Directives Directive Description [...] ... - Chemistry sodium, serum 141 mmol/L 836-255 7983/01/27 carbon dioxide, venous blood 29.7 mmol/L 21.0-32.0 [...] ... - Chemistry sodium, serum 138 mmol/L 564-237 3334/03/18 carbon dioxide, venous blood 25.5 mmol/L 21.0-32.0 potassium, serum 4.6 mmol/L 3.5-5.2 chloride, serum 101 mmol/L 98-107 blood glucose 129 mg/dL 65-110 urea nitrogen, blood 20 mg/dL 7-18 creatinine, serum 1.87 mg/dL 0.55-1.30 alanine aminotransferase (SGPT), serum 26 U/L 12-78 aspartate aminotransferase (SGOT), serum 20 U/L 15-37 calcium, serum 8.8 mg/dL 8.5-10.1 bilirubin, serum, total 0.40 mg/dL 0.00-1.00 cholesterol, serum 251 mg/dL 162-944 0935/03/18 triglyceride, serum, fasting 135 mg/dL 30-200 HDL [...] 0-19 Encounters Code Encounter Date Provider Facility CPT-91887 Level 4 Est. Patient 09:26:11 [employer]RIGATION LABORER Capo Poe MD [facility] CPT-63554 Level 4 Est. Patient 08:53:08 CDT Capo Poe MD [facility] CPT-07736 Level 4 Est. Patient 10:22:57 CDT Capo Poe MD [facility] CPT-44616 Level 4 Est. Patient 13:44:30 CDT Capo Poe MD [facility] CPT-92505 Level 3 Est. Patient 14:59:32 [employer]RIGATION LABORER Capo Poe MD [facility] CPT-67762 Level 4 Est. Patient 10:46:15 IRRIGATION LABORER Capo Poe MD [facility] CPT-90543 Level 3 Est. Patient 11:00:53 CDT Capo Poe MD [facility] CPT-36701 Level 3 Est. Patient 09:39:35 CDT Capo Poe MD [facility] CPT-52889 Level 3 Est. Patient 09:27:01 CDT Capo Poe MD [facility] CPT-69351 Level 3 Est. Patient 18:37:08 CDT Zoran Arzola MD [facility] CPT-76359 Level 3 Est. Patient 15:00:28 CDT Capo Poe MD [facility] CPT-77797 Level 3 Est. Patient 08:20:19 CDT Zoran Arzola MD [facility] CPT-56652 Level 3 Est. Patient 09:22:21 CDT Capo Poe MD [facility] CPT-88594 Level 4 Est. Patient 10:21:30 [employer]RIGATION LABORER Capo Poe MD [facility] CPT-31940 Level 3 Est. Patient 17:08:51 IRRIGATION LABORER Zoran Arzola MD [facility] CPT-96021 Level 4 Est. Patient 09:44:42 CDT Capo Poe MD [facility] CPT-00123 Level 4 Est. Patient 10:39:29 CDT Capo Poe MD [facility] CPT-38050 Level 3 Est. Patient 17:45:23 CDT Zoran Arzola MD [facility] CPT-17696 Level 4 Est. Patient 08:50:44 CDT Capo Poe MD [facility] CPT-18936 Level 3 Est. Patient 10:39:51 IRRIGATION LABORER Capo Poe MD [facility] CPT-16396 Level 4 Est. Patient 09:44:24 IRRIGATION LABORER Capo Poe MD [facility] CPT-72061 Level 3 Est. Patient 14:48:42 IRRIGATION LABORER Zoran Arzola MD [facility] CPT-04276 Level 4 Est. Patient 10:24:02 CDT Capo Poe MD [facility] CPT-67733 Level 3 Est. Patient 15:42:00 CDT Maya DUKES [facility] CPT-25865 Level 4 Est. Patient 13:34:15 CDT Capo Poe MD [facility] CPT-47001 Level 3 Est. Patient 15:32:10 IRRIGATION LABORER Zoran Arzola MD [facility] CPT-73752 Level 3 New Patient 17:17:19 IRRIGATION LABORER Zoran Arzola MD [facility] CPT-74249 Level 4 Est. Patient 10:25:01 IRRIGATION LABORER Capo Poe MD [facility] CPT-48405 Level 3 Est. Patient 10:10:42 CDT Zoran Arzola MD [facility] CPT-23767 Level 3 Est. Patient 22:30:02 CDT Zoran Arzola MD [facility] CPT-08068 Level 4 Est. Patient 09:54:20 CDT Capo Poe MD [facility] CPT-35496 Level 3 Est. Patient 10:48:30 CDT Capo Poe MD [facility] CPT-87017 Level 3 Est. Patient 11:24:45 CDT Capo Poe MD [facility] CPT-83807 Level 3 Est. Patient 15:23:48 [employer]RIGATION LABORER Capo Poe MD [facility] CPT-54578 Level 3 Est. Patient 15:10:03 IRRIGATION LABORER Capo Poe MD [facility] CPT-21082 Level 3 Est. Patient 16:18:40 CDT Zoran Arzola MD [facility] Procedures Code Procedure Name Date Entry Date Standard Description CPT-46174 TPSA - LAB USE ONLY 10:37:52 IRRIGATION LABORER CPT-13991 TSH - LAB USE ONLY 10:37:51 IRRIGATION LABORER CPT-39758 CMP - LAB USE ONLY 10:37:51 IRRIGATION LABORER CPT-71662 CBC with Diff - LAB USE ONLY 10:37:51 IRRIGATION LABORER CPT-82779 Venipuncture Draw Fee 10:37:51 IRRIGATION LABORER CPT-000 Give Pneumovax 10:39:30 CDT CPT-79757 Venipuncture Draw Fee 09:32:34 CDT CPT-G0438 Initial Annual Wellness Exam 10:24:35 CDT CPT-21808 Venipuncture Draw Fee 09:46:29 CDT CPT-75637 Venipuncture Draw Fee 14:30:06 CDT CPT-65095 Venipuncture Draw Fee 10:58:22 CDT CPT-52549 Abd single AP View 08:32:00 CDT CPT-28655 Postop F/U Visit 21:13:08 CDT CPT-74737 Abd single AP View 15:50:24 CDT CPT-71752 Cystoscopy W/rem FB 15:21:28 CDT CPT-27587 Abd single AP View 14:06:45 CDT CPT-73908 Postop F/U Visit 09:48:32 CDT CPT-57197 Abd single AP View 13:58:26 CDT CPT-41346 Hip comp min 2V 10:27:18 [employer]IGATION LABORER CPT-05618 Urine Dip (Floor Use Only) 13:41:01 [employer]IGATION LABORER CPT-39343 Postop F/U Visit 11:17:48 CDT CPT-LR Lesion Removal 11:50:22 CDT CPT-OV Office Visit 11:50:22 CDT CPT-54908 Pneumovax 23 10:55:48 CDT CPT-05214 Administration single or combination vaccine inc oral 10 :55:48 CDT CPT-Cryo Cryotherapy 11:18:11 CDT CPT-OV Office Visit 11:18:11 CDT CPT-57942 LS spine AP and Lat 09:05:22 CDT CPT-83415 Bladder Scan 15:42:00 CDT CPT-43904 Cystoscopy 15:42:00 CDT CPT-OV Office Visit 16:37:19 [employer]IGATION LABORER CPT-46697 Bladder Scan 15:32:10 IRRIGATION LABORER CPT-66393 Cystoscopy 15:32:10 IRRIGATION LABORER CPT-09181 Abd single AP View 14:05:59 IRRIGATION LABORER CPT-86952 Pill cam small bowel 09:48:39 IRRIGATION LABORER CPT-19870 Urine Dip (Floor Use Only) 17:17:19 IRRIGATION LABORER CPT-48350 Bladder Scan 17:17:19 IRRIGATION LABORER CPT-OV Office Visit 11:50:26 IRRIGATION LABORER CPT-25955 Bladder Scan 10:10:42 CDT CPT-84208 Venipuncture Draw Fee 09:14:04 CDT CPT-87991 Chest 2V Frontal and Lat 10:10:49 CDT CPT-60245 LS spine comp w obliq 11:50:11 CDT CPT-86914 Venipuncture Draw Fee 08:52:57 IRRIGATION LABORER CPT-42151 Cystoscopy W/rem FB 18:37:28 CDT CPT-72959 Abd single AP View 16:18:40 CDT CPT-90462 Abd compl w upright 17:30:59 CDT
--- OUTSIDE RECORDS SUMMARY | 2016-11-22 17:26 | XMS REPORT | Clinical Summary ---
Author Author Admin, MARGE Organization [facility] Address Unknown Phone Unavailable Allergies, [...] Patient Instruction WELLBUTRIN SR 150 MG ORAL [id number] 1 po BID BUPROPION HCL 30810799141 Active Capo Poe MD Active NICOTINE 14 MG/24HR TRANS PT24 Apply/Change q 24hr NICOTINE 02983939548 Active Capo Poe MD Active LORTAB 7.5-325 MG ORAL TABS 1 po q 6 hr prn pain HYDROCODONE- ACETAMINOPHEN 92055668656 Active Capo Poe MD Active FLOMAX 0.4 MG CAPS Take one by mouth daily TAMSULOSIN HCL 24270786481 Active Capo Poe MD Active MIRALAX PACK 1 po qd PRN Constipation POLYETHYLENE GLYCOL 3350 62762678001 Active Capo Poe MD Active DULERA 100-5 MCG/ACT AERO 2 puffs BID MOMETASONE FURO- FORMOTEROL FUM 62587149328 Active Capo Poe MD Active SERTRALINE HCL 100 MG ORAL TABS take 1 tab daily SERTRALINE HCL 79714540663 Active Capo Poe MD Active ZOLOFT 100 MG TABS 1 po daily SERTRALINE HCL 46264899848 No Longer Active Zoran Arzola MD Active FERROUS SULFATE 325 (65 FE) MG TABS 1 tablet by mouth daily FERROUS SULFATE 91814317067 No Longer Active Capo Poe MD Active TRAMADOL HCL 50 MG TABS 1-2 tablets every 6 hours as needed for pain TRAMADOL HCL 50294755676 Active Capo Poe MD Active HYDROCODONE-ACETAMINOPHEN 7.5-300 MG TABS take one every six hours HYDROCODONE-ACETAMINOPHEN 37238742811 No Longer Active Capo Poe MD Active TRIAMCINOLONE ACETONIDE 0.1 % OINT Apply to affected areas TID for up to 2 weeks TRIAMCINOLONE ACETONIDE 76287458066 No Longer Active Joe Vargas RN Active FERROUS SULFATE 325 (65 FE) MG TABS Take one by mouth daily FERROUS SULFATE 62302280280 No Longer Active Capo Poe MD Active TRIAMCINOLONE ACETONIDE 0.1 % OINT Apply to affected areas TID for up to 2 weeks TRIAMCINOLONE ACETONIDE 94375005785 No Longer Active Capo Poe MD Active ADULT ASPIRIN LOW STRENGTH 81 MG TBDP qd ASPIRIN 37953822956 Active Zoran Arzola MD Active ALEVE 220 MG TAB prn NAPROXEN SODIUM 79105108224 Active Capo Poe MD Active LISINOPRIL-HYDROCHLOROTHIAZIDE 10-12.5 MG TABS 1 tab by mouth daily LISINOPRIL-HYDROCHLOROTHIAZIDE 04375603711 Active Capo Poe MD Active MACROBID 100 MG CAP 1 cap by mouth twice daily NITROFURANTOIN MONOHYD MACRO 74631888567 No Longer Active Dona Becker Active AZITHROMYCIN 250 MG TABS 2 po qd x 1 day, then 1 po qd x 4 days AZITHROMYCIN 54158675309 No Longer Active Capo Poe MD Active FISH OIL 500 MG CAPS by mouth twice a day OMEGA-3 FATTY ACIDS 57049678532 Active Capo Poe MD Active FLAXSEED OIL 1000 MG CAPS Take two by mouth daily FLAXSEED (LINSEED) 96578163959 Elza Arzola MD Active RED YEAST RICE 600 MG CAPS Take two by mouth daily RED YEAST RICE EXTRACT 21444052931 Active Zoran Arzola MD Active MULTIVITAMINS CAPS Take one by mouth daily MULTIPLE VITAMIN 07653251264 Active Zoran Arzola MD Active ICAPS MV TABS 2 po daily MULTIPLE VITAMINS-MINERALS 00189100339 Active Jam Arnold DO Active MACROBID 100 MG CAP 1 cap by mouth twice daily MACROBID 100 MG CAP 9879952 NITROFURANTOIN MONOHYD MACRO Inactive FERROUS SULFATE 325 (65 FE) MG TABS Take one by mouth daily FERROUS SULFATE 325 (65 FE) MG TABS 376319 FERROUS SULFATE Inactive HYDROCODONE-ACETAMINOPHEN 7.5-300 MG TABS take one every six hours HYDROCODONE-ACETAMINOPHEN 7.5-300 MG TABS 731429 HYDROCODONE- ACETAMINOPHEN Inactive FERROUS SULFATE 325 (65 FE) MG TABS 1 tablet by mouth daily FERROUS SULFATE 325 (65 FE) MG TABS 389893 FERROUS SULFATE Inactive ZOLOFT 100 MG TABS 1 po daily ZOLOFT 100 MG TABS 802406 SERTRALINE HCL Inactive AZITHROMYCIN 250 MG TABS 2 po qd x 1 day, then 1 po qd x 4 days AZITHROMYCIN 250 MG TABS 2421838 AZITHROMYCIN Inactive TRIAMCINOLONE ACETONIDE 0.1 % OINT Apply to affected areas TID for up to 2 weeks TRIAMCINOLONE ACETONIDE 0.1 % OINT 2166952 TRIAMCINOLONE ACETONIDE Inactive TRIAMCINOLONE ACETONIDE 0.1 % OINT Apply to affected areas TID for up to 2 weeks TRIAMCINOLONE ACETONIDE 0.1 % OINT 3184321 TRIAMCINOLONE ACETONIDE Inactive Advance Directives Directive Description [...] Panel - Chemistry sodium, serum 139 mmol/L 912-267 4550/07/30 potassium, serum 4.7 mmol/L 3.5-5.2 chloride, serum [...] CBC - Chemistry cholesterol, serum 207 mg/dL 898-961 2648/02/11 triglyceride, serum, fasting 74 mg/dL 30-200 HDL cholesterol, serum 62 mg/dL 32-96 LDL cholesterol, serum 130 mg/dL 0-130 sodium, serum 144 mmol/L 626-085 2171/02/11 potassium, serum 5.0 mmol/L 3.5-5.2 chloride, serum [...] negative Encounters Code Encounter Date Provider Facility CPT-69340 Level 3 Est. Patient 09:27:01 CDT Capo Poe MD [facility] CPT-03537 Level 3 Est. Patient 18:37:08 CDT Zoran Arzola MD [facility] CPT-48052 Level 3 Est. Patient 15:00:28 CDT Capo Poe MD [facility] CPT-38112 Level 3 Est. Patient 08:20:19 CDT Zoran Arzola MD [facility] CPT-55383 Level 3 Est. Patient 09:22:21 CDT Capo Poe MD [facility] CPT-49563 Level 4 Est. Patient 10:21:30 [employer] Capo Poe MD [facility] CPT-63644 Level 3 Est. Patient 17:08:51 [employer] Zoran Arzola MD [facility] CPT-88004 Level 4 Est. Patient 09:44:42 CDT Capo Poe MD [facility] CPT-13153 Level 4 Est. Patient 10:39:29 CDT Capo Poe MD [facility] CPT-89622 Level 3 Est. Patient 17:45:23 CDT Zoran Arzola MD [facility] CPT-10205 Level 4 Est. Patient 08:50:44 CDT Capo Poe MD [facility] CPT-04375 Level 3 Est. Patient 10:39:51 [employer] Capo Poe MD [facility] CPT-22086 Level 4 Est. Patient 09:44:24 [employer] Capo Poe MD [facility] CPT-79992 Level 3 Est. Patient 14:48:42 [employer] Zoran Arzola MD [facility] CPT-96755 Level 4 Est. Patient 10:24:02 CDT Capo Poe MD [facility] CPT-21485 Level 3 Est. Patient 15:42:00 CDT Maya WRIGHTP [facility] CPT-59635 Level 4 Est. Patient 13:34:15 CDT Capo Poe MD [facility] CPT-39930 Level 3 Est. Patient 15:32:10 [employer] Zoran Arzola MD [facility] CPT-26707 Level 3 New Patient 17:17:19 [employer] Zoran Arzola MD [facility] CPT-53369 Level 4 Est. Patient 10:25:01 [employer] Capo Poe MD [facility] CPT-39035 Level 3 Est. Patient 10:10:42 CDT Zoran Arzola MD [facility] CPT-79880 Level 3 Est. Patient 22:30:02 CDT Zoran Arzola MD [facility] CPT-38986 Level 4 Est. Patient 09:54:20 CDT Capo Poe MD [facility] CPT-69571 Level 3 Est. Patient 10:48:30 CDT Capo Poe MD [facility] CPT-88000 Level 3 Est. Patient 11:24:45 CDT Capo Poe MD [facility] CPT-16887 Level 3 Est. Patient 15:23:48 [employer] Capo Poe MD [facility] CPT-50550 Level 3 Est. Patient 15:10:03 [employer] Capo Poe MD [facility] CPT-61553 Level 3 Est. Patient 16:18:40 CDT Zoran Arzola MD [facility] Procedures Code Procedure Name Date Entry Date Standard Description CPT-99712 Venipuncture Draw Fee 10:58:22 CDT CPT-77408 Abd single AP View 08:32:00 CDT CPT-79878 Postop F/U Visit 21:13:08 CDT CPT-21422 Abd single AP View 15:50:24 CDT CPT-55314 Cystoscopy W/rem FB 15:21:28 CDT CPT-30461 Abd single AP View 14:06:45 CDT CPT-04501 Postop F/U Visit 09:48:32 CDT CPT-89151 Abd single AP View 13:58:26 CDT CPT-76340 Hip comp min 2V 10:27:18 [employer] CPT-12341 Urine Dip (Floor Use Only) 13:41:01 [employer] CPT-89457 Postop F/U Visit 11:17:48 CDT CPT-LR Lesion Removal 11:50:22 CDT CPT-OV Office Visit 11:50:22 CDT CPT-10338 Pneumovax 23 10:55:48 CDT CPT-62965 Administration single or combination vaccine inc oral 10 :55:48 CDT CPT-Cryo Cryotherapy 11:18:11 CDT CPT-OV Office Visit 11:18:11 CDT CPT-63111 LS spine AP and Lat 09:05:22 CDT CPT-61295 Bladder Scan 15:42:00 CDT CPT-88198 Cystoscopy 15:42:00 CDT CPT-OV Office Visit 16:37:19 [employer] CPT-43340 Bladder Scan 15:32:10 [employer] CPT-68535 Cystoscopy 15:32:10 [employer] CPT-31344 Abd single AP View 14:05:59 [employer] CPT-66601 Pill cam small bowel 09:48:39 [employer] CPT-44758 Urine Dip (Floor Use Only) 17:17:19 [employer] CPT-83268 Bladder Scan 17:17:19 [employer] WORK[employer] CPT-OV Office Visit 11:50:26 [employer] CPT-62876 Bladder Scan 10:10:42 CDT CPT-97421 Venipuncture Draw Fee 09:14:04 CDT CPT-08608 Chest 2V Frontal and Lat 10:10:49 CDT CPT-86048 LS spine comp w obliq 11:50:11 CDT CPT-90136 Venipuncture Draw Fee 08:52:57 [employer] CPT-14727 Cystoscopy W/rem FB 18:37:28 CDT CPT-63271 Abd single AP View 16:18:40 CDT CPT-64989 Abd compl w upright 17:30:59 CDT
--- OUTSIDE RECORDS SUMMARY | 2016-11-22 17:27 | XMS REPORT | Clinical Summary ---
Author Author Admin, QIE Organization [employer] Address Unknown Phone Unavailable Allergies, Adverse Reactions, [...] deficiency 280.9 Active Jasmin Dixon [facility] Iron deficiency anemia, unspecified COPD, acute [...] MG TABS 1 daily for infection LEVOFLOXACIN 41842346258 Active Leanna Baker APRN Active AZITHROMYCIN 250 MG ORAL TABS 2 po qd x 1, then 1 po qd x 4 AZITHROMYCIN 67181856666 Active Capo Poe MD Active PREDNISONE 20 MG ORAL TABS 2 po qd x 5 days PREDNISONE 47368283578 No Longer Active Capo Poe MD Active CARAFATE 1 GM ORAL TABS 1 tid SUCRALFATE 04932772245 Active Capo Poe MD Active RANITIDINE HCL 150 MG ORAL TABS 1 bid RANITIDINE HCL 51995340939 Active Capo Poe MD Active MULTIVITAMINS CAPS Take one by mouth daily MULTIPLE VITAMIN 72014189990 No Longer Active Capo Poe MD Active LISINOPRIL 10 MG TABS 1 tablet by mouth daily LISINOPRIL 22267225273 No Longer Active Capo Poe MD Active EQL IRON SUPPLEMENT THERAPY 325 MG ORAL TABS 1 tab po twice daily FERROUS SULFATE 85247438396 Active Jasminailyn Dixon RMA Active D ORAL TABS 2000 iu weekly D ORAL TABS Active Capo Poe MD Active CITALOPRAM HYDROBROMIDE 20 MG TABS 1 tablet by mouth daily CITALOPRAM HYDROBROMIDE 13874407598 Active Capo Poe MD Active CLARITIN 5 MG ORAL CHEW 1 tab po q day LORATADINE 42202478120 Active Felisa Daphney TEIXEIRA Active VIIBRYD STARTER PACK 10 & 20 MG ORAL KIT 1 po qd as directed 2015 VILAZODONE HCL 39852581917 No Longer Active Felisa Daphney TEIXEIRA Active HYDROXYZINE HCL 25 MG TAB 1 po qHS PRN Insomnia HYDROXYZINE HCL 02422501802 Active Capo Poe MD Active LORTAB 7.5-325 MG ORAL TABS 1 po q 6 hr prn pain HYDROCODONE- ACETAMINOPHEN 54269605933 No Longer Active Capo Poe MD Active FLOMAX 0.4 MG CAPS Take one by mouth daily TAMSULOSIN HCL 68187096716 No Longer Active Capo Poe MD Active TRIAMCINOLONE ACETONIDE 0.1 % CREA Apply to affected areas TID for up to 2 weeks TRIAMCINOLONE ACETONIDE 87774235686 Active Capo Poe MD Active NICOTINE 14 MG/24HR TRANS PT24 Apply/Change q 24hr NICOTINE 85586279898 No Longer Active Capo Poe MD Active TRAMADOL HCL 50 MG TABS 1-2 tablets every 6 hours as needed for pain TRAMADOL HCL 02603580328 No Longer Active Capo Poe MD Active SERTRALINE HCL 100 MG ORAL TABS take 1 tab daily SERTRALINE HCL 18739140114 No Longer Active Capo Poe MD Active LISINOPRIL-HYDROCHLOROTHIAZIDE 10-12.5 MG TABS 0.5 tab by mouth daily LISINOPRIL-HYDROCHLOROTHIAZIDE 08712768710 No Longer Active Capo Poe MD Active OMEPRAZOLE 20 MG CPDR 1 tablet by mouth daily OMEPRAZOLE 05090241609 Active Capo Poe MD Active WELLBUTRIN SR 150 MG ORAL [id number] 1 po BID BUPROPION HCL 40192082726 No Longer Active Capo Poe MD Active MIRALAX PACK 1 po qd PRN Constipation POLYETHYLENE GLYCOL 3350 68848076028 Active Capo Poe MD Active DULERA 100-5 MCG/ACT AERO 2 puffs BID MOMETASONE FURO- FORMOTEROL FUM 56086076645 Active Capo Poe MD Active ZOLOFT 100 MG TABS 1 po daily SERTRALINE HCL 40037708278 No Longer Active Zoran Arzola MD Active FERROUS SULFATE 325 (65 FE) MG TABS 1 tablet by mouth daily FERROUS SULFATE 86344167282 No Longer Active Capo Poe MD Active HYDROCODONE-ACETAMINOPHEN 7.5-300 MG TABS take one every six hours HYDROCODONE-ACETAMINOPHEN 66142575374 No Longer Active Capo Poe MD Active TRIAMCINOLONE ACETONIDE 0.1 % OINT Apply to affected areas TID for up to 2 weeks TRIAMCINOLONE ACETONIDE 34345697440 No Longer Active Joe Vargas RN Active FERROUS SULFATE 325 (65 FE) MG TABS Take one by mouth daily FERROUS SULFATE 22729884416 No Longer Active Capo Poe MD Active TRIAMCINOLONE ACETONIDE 0.1 % OINT Apply to affected areas TID for up to 2 weeks TRIAMCINOLONE ACETONIDE 24415314053 No Longer Active Capo Poe MD Active ADULT ASPIRIN LOW STRENGTH 81 MG TBDP qd ASPIRIN 05142783558 Active Zoran Arzola MD Active ALEVE 220 MG TAB prn NAPROXEN SODIUM 87614077574 Active Capo Poe MD Active MACROBID 100 MG CAP 1 cap by mouth twice daily NITROFURANTOIN MONOHYD MACRO 42738711021 No Longer Active Donaarmando Becker Active AZITHROMYCIN 250 MG TABS 2 po qd x 1 day, then 1 po qd x 4 days AZITHROMYCIN 79764552811 No Longer Active Capo Poe MD Active FISH OIL 500 MG CAPS by mouth twice a day OMEGA-3 FATTY ACIDS 01999689589 Active Capo Poe MD Active FLAXSEED OIL 1000 MG CAPS Take two by mouth daily FLAXSEED (LINSEED) 22718883363 Active Zoran Arzola MD Active RED YEAST RICE 600 MG CAPS Take two by mouth daily RED YEAST RICE EXTRACT 29812994667 Active Zoran Arzola MD Active ICAPS MV TABS 2 po daily MULTIPLE VITAMINS-MINERALS 05571283862 Active Jam Arnold DO Active MACROBID 100 MG CAP 1 cap by mouth twice daily MACROBID 100 MG CAP 2905930 NITROFURANTOIN MONOHYD MACRO Inactive FERROUS SULFATE 325 (65 FE) MG TABS Take one by mouth daily FERROUS SULFATE 325 (65 FE) MG TABS 325067 FERROUS SULFATE Inactive HYDROCODONE-ACETAMINOPHEN 7.5-300 MG TABS take one every six hours HYDROCODONE-ACETAMINOPHEN 7.5-300 MG TABS 170490 HYDROCODONE- ACETAMINOPHEN Inactive FERROUS SULFATE 325 (65 FE) MG TABS 1 tablet by mouth daily FERROUS SULFATE 325 (65 FE) MG TABS 147777 FERROUS SULFATE Inactive ZOLOFT 100 MG TABS 1 po daily ZOLOFT 100 MG TABS 329393 SERTRALINE HCL Inactive SERTRALINE HCL 100 MG ORAL TABS take 1 tab daily SERTRALINE HCL 100 MG ORAL TABS 513754 SERTRALINE HCL Inactive TRAMADOL HCL 50 MG TABS 1-2 tablets every 6 hours as needed for pain TRAMADOL HCL 50 MG TABS 375603 TRAMADOL HCL Inactive NICOTINE 14 MG/24HR TRANS PT24 Apply/Change q 24hr NICOTINE 14 MG/24HR TRANS PT24 922025 NICOTINE Inactive FLOMAX 0.4 MG CAPS Take one by mouth daily FLOMAX 0.4 MG CAPS 766793 TAMSULOSIN HCL Inactive LORTAB 7.5-325 MG ORAL TABS 1 po q 6 hr prn pain LORTAB 7.5- 325 MG ORAL TABS 050163 HYDROCODONE-ACETAMINOPHEN Inactive VIIBRYD STARTER PACK 10 & 20 MG ORAL KIT 1 po qd as directed 2015 VIIBRYD STARTER PACK 10 & 20 MG ORAL KIT VILAZODONE HCL Inactive LISINOPRIL 10 MG TABS 1 tablet by mouth daily LISINOPRIL 10 MG TABS 029870 LISINOPRIL Inactive MULTIVITAMINS CAPS Take one by mouth daily MULTIVITAMINS CAPS MULTIPLE VITAMIN Inactive AZITHROMYCIN 250 MG TABS 2 po qd x 1 day, then 1 po qd x 4 days AZITHROMYCIN 250 MG TABS 1146812 AZITHROMYCIN Inactive TRIAMCINOLONE ACETONIDE 0.1 % OINT Apply to affected areas TID for up to 2 weeks TRIAMCINOLONE ACETONIDE 0.1 % OINT 4218186 TRIAMCINOLONE ACETONIDE Inactive TRIAMCINOLONE ACETONIDE 0.1 % OINT Apply to affected areas TID for up to 2 weeks TRIAMCINOLONE ACETONIDE 0.1 % OINT 7429358 TRIAMCINOLONE ACETONIDE Inactive PREDNISONE 20 MG ORAL TABS 2 po qd x 5 days PREDNISONE 20 MG ORAL TABS 181600 PREDNISONE Inactive Advance Directives Directive Description Start [...] ... - Chemistry sodium, serum 141 mmol/L 938-284 6982/01/27 carbon dioxide, venous blood 29.7 mmol/L 21.0-32.0 [...] % 11.0-15.0 platelet count 214 THOUSAND/UL 10*3/mm3 614-345 1901/03/31 mean platelet volume 8.4 fL 7.5-12.5 Encounters Code Encounter Date Provider Facility CPT-72030 Level 3 Est. Patient 11:31:49 [facility] Level 3 Est. Patient 09:44:06 CDT Capo Poe MD [facility] CPT-93784 Level 4 Est. Patient 09:26:11 [employer] Capo Poe MD [facility] CPT-03811 Level 4 Est. Patient 08:53:08 CDT Capo Poe MD [facility] CPT-82769 Level 4 Est. Patient 10:22:57 CDT Capo Poe MD [facility] CPT-34655 Level 4 Est. Patient 13:44:30 CDT Capo Poe MD [facility] CPT-09262 Level 3 Est. Patient 14:59:32 [employer] Capo Poe MD [facility] CPT-63450 Level 4 Est. Patient 10:46:15 [employer] Capo Poe MD [facility] CPT-88684 Level 3 Est. Patient 11:00:53 CDT Capo Poe MD [facility] CPT-55032 Level 3 Est. Patient 09:39:35 CDT Capo Poe MD [facility] CPT-64711 Level 3 Est. Patient 09:27:01 CDT Capo Poe MD [facility] CPT-01234 Level 3 Est. Patient 18:37:08 CDT Zoran Arzola MD [facility] CPT-80254 Level 3 Est. Patient 15:00:28 CDT Capo Poe MD [facility] CPT-17403 Level 3 Est. Patient 08:20:19 CDT Zoran Arzola MD [facility] CPT-20777 Level 3 Est. Patient 09:22:21 CDT Capo Poe MD [facility] CPT-14001 Level 4 Est. Patient 10:21:30 [employer] Capo Poe MD [facility] CPT-12709 Level 3 Est. Patient 17:08:51 [employer] Zoran Arzola MD [facility] CPT-08622 Level 4 Est. Patient 09:44:42 CDT Capo Poe MD [facility] CPT-35564 Level 4 Est. Patient 10:39:29 CDT Capo Poe MD [facility] CPT-55869 Level 3 Est. Patient 17:45:23 CDT Zoran Arzola MD [facility] CPT-27355 Level 4 Est. Patient 08:50:44 CDT Capo Poe MD [facility] CPT-35979 Level 3 Est. Patient 10:39:51 [employer] Capo Poe MD [facility] CPT-66535 Level 4 Est. Patient 09:44:24 [employer] Capo Poe MD [facility] CPT-93755 Level 3 Est. Patient 14:48:42 [employer] Zoran Arzola MD [facility] CPT-45902 Level 4 Est. Patient 10:24:02 CDT Capo Poe MD [facility] CPT-94473 Level 3 Est. Patient 15:42:00 CDT Maya Kem DUKES [facility] CPT-90623 Level 4 Est. Patient 13:34:15 CDT Capo Poe MD [facility] CPT-17766 Level 3 Est. Patient 15:32:10 [employer] Zoran Arzola MD [facility] CPT-09969 Level 3 New Patient 17:17:19 [employer] Zoran Arzola MD [facility] CPT-97218 Level 4 Est. Patient 10:25:01 [employer] Capo Poe MD [facility] CPT-08316 Level 3 Est. Patient 10:10:42 CDT Zoran Arzola MD [facility] CPT-39179 Level 3 Est. Patient 22:30:02 CDT Zoran Arzola MD [facility] CPT-23537 Level 4 Est. Patient 09:54:20 CDT Capo Poe MD [facility] CPT-63167 Level 3 Est. Patient 10:48:30 CDT Capo Poe MD [facility] CPT-07805 Level 3 Est. Patient 11:24:45 CDT Capo Poe MD [facility] CPT-41853 Level 3 Est. Patient 15:23:48 [employer] Capo Poe MD [facility] CPT-40714 Level 3 Est. Patient 15:10:03 [employer] Capo Poe MD [facility] CPT-63989 Level 3 Est. Patient 16:18:40 CDT Zoran Arzola MD [facility] Procedures Code Procedure Name Date Entry Date Standard Description CPT-36571 Chest 2V Frontal and Lat - XRAY USE ONLY 11:51:24 CDT CPT-14808 Venipuncture Draw Fee 11:31:49 CDT CPT-06753 Hemoccult IFOBT - LAB USE ONLY 14:11:43 [employer] CPT-25297 TPSA - LAB USE ONLY 10:37:52 [employer] CPT-58310 TSH - LAB USE ONLY 10:37:51 [employer] CPT-73210 CMP - LAB USE ONLY 10:37:51 [employer] CPT-24819 CBC with Diff - LAB USE ONLY 10:37:51 [employer] CPT-64929 Venipuncture Draw Fee 10:37:51 [employer] CPT-000 Give Pneumovax 10:39:30 CDT CPT-08754 Venipuncture Draw Fee 09:32:34 CDT CPT-G0438 Initial Annual Wellness Exam 10:24:35 CDT CPT-27902 Venipuncture Draw Fee 09:46:29 CDT CPT-07750 Venipuncture Draw Fee 14:30:06 CDT CPT-08560 Venipuncture Draw Fee 10:58:22 CDT CPT-68673 Abd single AP View 08:32:00 CDT CPT-10151 Postop F/U Visit 21:13:08 CDT CPT-48382 Abd single AP View 15:50:24 CDT CPT-27145 Cystoscopy W/rem FB 15:21:28 CDT CPT-91932 Abd single AP View 14:06:45 CDT CPT-70472 Postop F/U Visit 09:48:32 CDT CPT-15374 Abd single AP View 13:58:26 CDT CPT-72230 Hip comp min 2V 10:27:18 [employer] CPT-88652 Urine Dip (Floor Use Only) 13:41:01 [employer] CPT-27659 Postop F/U Visit 11:17:48 CDT CPT-LR Lesion Removal 11:50:22 CDT CPT-OV Office Visit 11:50:22 CDT CPT-28387 Pneumovax 23 10:55:48 CDT CPT-41834 Administration single or combination vaccine inc oral 10 :55:48 CDT CPT-Cryo Cryotherapy 11:18:11 CDT CPT-OV Office Visit 11:18:11 CDT CPT-63349 LS spine AP and Lat 09:05:22 CDT CPT-70840 Bladder Scan 15:42:00 CDT CPT-97320 Cystoscopy 15:42:00 CDT CPT-OV Office Visit 16:37:19 [employer] CPT-65934 Bladder Scan 15:32:10 [employer] CPT-35943 Cystoscopy 15:32:10 [employer] CPT-10487 Abd single AP View 14:05:59 [employer] CPT-87584 Pill cam small bowel 09:48:39 [employer] CPT-01507 Urine Dip (Floor Use Only) 17:17:19 [employer] CPT-64740 Bladder Scan 17:17:19 [employer] CPT-OV Office Visit 11:50:26 [employer] CPT-09394 Bladder Scan 10:10:42 CDT CPT-21783 Venipuncture Draw Fee 09:14:04 CDT CPT-77021 Chest 2V Frontal and Lat 10:10:49 CDT CPT-22497 LS spine comp w obliq 11:50:11 CDT CPT-87758 Venipuncture Draw Fee 08:52:57 [employer] CPT-20683 Cystoscopy W/rem FB 18:37:28 CDT CPT-84544 Abd single AP View 16:18:40 CDT CPT-44868 Abd compl w upright 17:30:59 CDT
--- OUTSIDE RECORDS SUMMARY | 2016-11-22 17:28 | XMS REPORT | Clinical Summary ---
Author Author Admin, QIE Organization [facility] Address Unknown Phone Unavailable Allergies, Adverse Reactions, [...] classified Chronic obstructive pulmonary disease 496 Active Caop Poe MD Chronic airway obstruction, not elsewhere [...] Jasmin Dixon [facility] Iron deficiency anemia, unspecified NAUSEA [...] 1 tab po twice daily FERROUS SULFATE 96009492790 Active Jasmin TEIXEIRA Active D ORAL TABS 2000 iu weekly D ORAL TABS Active Capo Poe MD Active CITALOPRAM HYDROBROMIDE 20 MG TABS 1 tablet by mouth daily CITALOPRAM HYDROBROMIDE 52063741022 Active Capo Poe MD Active CLARITIN 5 MG ORAL CHEW 1 tab po q day LORATADINE 22506612290 Active Felisa TEIXEIRA Active VIIBRYD STARTER PACK 10 & 20 MG ORAL KIT 1 po qd as directed 2015 VILAZODONE HCL 51137186269 No Longer Active Felisa TEIXEIRA Active HYDROXYZINE HCL 25 MG TAB 1 po qHS PRN Insomnia HYDROXYZINE HCL 69347666354 Active Capo Poe MD Active LISINOPRIL 10 MG TABS 1 tablet by mouth daily LISINOPRIL 89452122784 Active Capo Poe MD Active LORTAB 7.5-325 MG ORAL TABS 1 po q 6 hr prn pain HYDROCODONE- ACETAMINOPHEN 47299115983 No Longer Active Capo Poe MD Active FLOMAX 0.4 MG CAPS Take one by mouth daily TAMSULOSIN HCL 35205951798 No Longer Active Capo Poe MD Active TRIAMCINOLONE ACETONIDE 0.1 % CREA Apply to affected areas TID for up to 2 weeks TRIAMCINOLONE ACETONIDE 75569453744 Active Capo Poe MD Active NICOTINE 14 MG/24HR TRANS PT24 Apply/Change q 24hr NICOTINE 24118394309 No Longer Active Capo Poe MD Active TRAMADOL HCL 50 MG TABS 1-2 tablets every 6 hours as needed for pain TRAMADOL HCL 87354887517 No Longer Active Capo Poe MD Active SERTRALINE HCL 100 MG ORAL TABS take 1 tab daily SERTRALINE HCL 90317277312 No Longer Active Capo Poe MD Active LISINOPRIL-HYDROCHLOROTHIAZIDE 10-12.5 MG TABS 0.5 tab by mouth daily LISINOPRIL-HYDROCHLOROTHIAZIDE 61066435400 No Longer Active Capo Poe MD Active OMEPRAZOLE 20 MG CPDR 1 tablet by mouth daily OMEPRAZOLE 22719674044 Active Capo Poe MD Active WELLBUTRIN SR 150 MG ORAL [id number] 1 po BID BUPROPION HCL 22444150323 No Longer Active Capo Poe MD Active MIRALAX PACK 1 po qd PRN Constipation POLYETHYLENE GLYCOL 3350 45812480601 Active Capo Poe MD Active DULERA 100-5 MCG/ACT AERO 2 puffs BID MOMETASONE FURO- FORMOTEROL FUM 19598724755 Active Capo Poe MD Active ZOLOFT 100 MG TABS 1 po daily SERTRALINE HCL 86726808874 No Longer Active Zoran Arzola MD Active FERROUS SULFATE 325 (65 FE) MG TABS 1 tablet by mouth daily FERROUS SULFATE 51518058758 No Longer Active Capo Poe MD Active HYDROCODONE-ACETAMINOPHEN 7.5-300 MG TABS take one every six hours HYDROCODONE-ACETAMINOPHEN 44644577526 No Longer Active Capo Poe MD Active TRIAMCINOLONE ACETONIDE 0.1 % OINT Apply to affected areas TID for up to 2 weeks TRIAMCINOLONE ACETONIDE 95453700010 No Longer Active Joe Vargas RN Active FERROUS SULFATE 325 (65 FE) MG TABS Take one by mouth daily FERROUS SULFATE 55508676764 No Longer Active Capo Poe MD Active TRIAMCINOLONE ACETONIDE 0.1 % OINT Apply to affected areas TID for up to 2 weeks TRIAMCINOLONE ACETONIDE 18043052393 No Longer Active Capo Poe MD Active ADULT ASPIRIN LOW STRENGTH 81 MG TBDP qd ASPIRIN 59886952010 Active Zoran Arzola MD Active ALEVE 220 MG TAB prn NAPROXEN SODIUM 99922142710 Active Capo Poe MD Active MACROBID 100 MG CAP 1 cap by mouth twice daily NITROFURANTOIN MONOHYD MACRO 18252320791 No Longer Active Dona Becker Active AZITHROMYCIN 250 MG TABS 2 po qd x 1 day, then 1 po qd x 4 days AZITHROMYCIN 64536964173 No Longer Active Capo Poe MD Active FISH OIL 500 MG CAPS by mouth twice a day OMEGA-3 FATTY ACIDS 50986533731 Active Capo Poe MD Active FLAXSEED OIL 1000 MG CAPS Take two by mouth daily FLAXSEED (LINSEED) 42024319749 Active Zoran Arzola MD Active RED YEAST RICE 600 MG CAPS Take two by mouth daily RED YEAST RICE EXTRACT 39737977157 Active Zoran Arzola MD Active MULTIVITAMINS CAPS Take one by mouth daily MULTIPLE VITAMIN 61703184001 Active Zoran Arzola MD Active ICAPS MV TABS 2 po daily MULTIPLE VITAMINS-MINERALS 18478636309 Active Jma Arnold DO Active MACROBID 100 MG CAP 1 cap by mouth twice daily MACROBID 100 MG CAP 8106228 NITROFURANTOIN MONOHYD MACRO Inactive FERROUS SULFATE 325 (65 FE) MG TABS Take one by mouth daily FERROUS SULFATE 325 (65 FE) MG TABS 986058 FERROUS SULFATE Inactive HYDROCODONE-ACETAMINOPHEN 7.5-300 MG TABS take one every six hours HYDROCODONE-ACETAMINOPHEN 7.5-300 MG TABS 950781 HYDROCODONE- ACETAMINOPHEN Inactive FERROUS SULFATE 325 (65 FE) MG TABS 1 tablet by mouth daily FERROUS SULFATE 325 (65 FE) MG TABS 814665 FERROUS SULFATE Inactive ZOLOFT 100 MG TABS 1 po daily ZOLOFT 100 MG TABS 749821 SERTRALINE HCL Inactive SERTRALINE HCL 100 MG ORAL TABS take 1 tab daily SERTRALINE HCL 100 MG ORAL TABS 123968 SERTRALINE HCL Inactive TRAMADOL HCL 50 MG TABS 1-2 tablets every 6 hours as needed for pain TRAMADOL HCL 50 MG TABS 078819 TRAMADOL HCL Inactive NICOTINE 14 MG/24HR TRANS PT24 Apply/Change q 24hr NICOTINE 14 MG/24HR TRANS PT24 096881 NICOTINE Inactive FLOMAX 0.4 MG CAPS Take one by mouth daily FLOMAX 0.4 MG CAPS 552210 TAMSULOSIN HCL Inactive LORTAB 7.5-325 MG ORAL TABS 1 po q 6 hr prn pain LORTAB 7.5- 325 MG ORAL TABS 910269 HYDROCODONE-ACETAMINOPHEN Inactive VIIBRYD STARTER PACK 10 & 20 MG ORAL KIT 1 po qd as directed 2015 VIIBRYD STARTER PACK 10 & 20 MG ORAL KIT VILAZODONE HCL Inactive AZITHROMYCIN 250 MG TABS 2 po qd x 1 day, then 1 po qd x 4 days AZITHROMYCIN 250 MG TABS 4119957 AZITHROMYCIN Inactive TRIAMCINOLONE ACETONIDE 0.1 % OINT Apply to affected areas TID for up to 2 weeks TRIAMCINOLONE ACETONIDE 0.1 % OINT 6523937 TRIAMCINOLONE ACETONIDE Inactive TRIAMCINOLONE ACETONIDE 0.1 % OINT Apply to affected areas TID for up to 2 weeks TRIAMCINOLONE ACETONIDE 0.1 % OINT 1040847 TRIAMCINOLONE ACETONIDE Inactive Advance Directives Directive Description [...] ... - Chemistry sodium, serum 141 mmol/L 220-001 6032/01/27 carbon dioxide, venous blood 29.7 mmol/L 21.0-32.0 [...] % 11.0-15.0 platelet count 214 THOUSAND/UL 10*3/mm3 118-208 4755/03/31 mean platelet volume 8.4 fL 7.5-12.5 Encounters Code Encounter Date Provider Facility CPT-36218 Level 4 Est. Patient 09:26:11 SILVICULTURIST Capo Poe MD [facility] CPT-81966 Level 4 Est. Patient 08:53:08 CDT Capo Poe MD [facility] CPT-85963 Level 4 Est. Patient 10:22:57 CDT Capo Poe MD [facility] CPT-84871 Level 4 Est. Patient 13:44:30 CDT Capo Poe MD [facility] CPT-27157 Level 3 Est. Patient 14:59:32 SILVICULTURIST Capo Poe MD [facility] CPT-84907 Level 4 Est. Patient 10:46:15 SILVICULTURIST Capo Poe MD [facility] CPT-58959 Level 3 Est. Patient 11:00:53 CDT Capo Poe MD [facility] CPT-77543 Level 3 Est. Patient 09:39:35 CDT Capo Poe MD [facility] CPT-58939 Level 3 Est. Patient 09:27:01 CDT Capo Poe MD [facility] CPT-76859 Level 3 Est. Patient 18:37:08 CDT Zoran Arzola MD [facility] CPT-65876 Level 3 Est. Patient 15:00:28 CDT Capo Poe MD [facility] CPT-09032 Level 3 Est. Patient 08:20:19 CDT Zoran Arzola MD [facility] CPT-64659 Level 3 Est. Patient 09:22:21 CDT Capo Poe MD [facility] CPT-05630 Level 4 Est. Patient 10:21:30 SILVICULTURIST Capo Poe MD [facility] CPT-47028 Level 3 Est. Patient 17:08:51 SILVICULTURIST Zoran Arzola MD [facility] CPT-94692 Level 4 Est. Patient 09:44:42 CDT Capo Poe MD [facility] CPT-05215 Level 4 Est. Patient 10:39:29 CDT Capo Poe MD [facility] CPT-89130 Level 3 Est. Patient 17:45:23 CDT Zoran Arzola MD [facility] CPT-57567 Level 4 Est. Patient 08:50:44 CDT Capo Poe MD [facility] CPT-56337 Level 3 Est. Patient 10:39:51 SILVICULTURIST Capo Poe MD [facility] CPT-11103 Level 4 Est. Patient 09:44:24 SILVICULTURIST Capo Poe MD [facility] CPT-20480 Level 3 Est. Patient 14:48:42 SILVICULTURIST Zoran Arzola MD [facility] CPT-74475 Level 4 Est. Patient 10:24:02 CDT Capo Poe MD [facility] CPT-99166 Level 3 Est. Patient 15:42:00 CDT Maya DUKES [facility] CPT-11326 Level 4 Est. Patient 13:34:15 CDT Capo Poe MD [facility] CPT-43625 Level 3 Est. Patient 15:32:10 SILVICULTURIST Zoran Arzola MD [facility] CPT-08149 Level 3 New Patient 17:17:19 SILVICULTURIST Zoran Arzola MD [facility] CPT-84786 Level 4 Est. Patient 10:25:01 SILVICULTURIST Capo Poe MD [facility] CPT-33262 Level 3 Est. Patient 10:10:42 CDT Zoran Arzola MD [facility] CPT-39712 Level 3 Est. Patient 22:30:02 CDT Zoran Arzola MD [facility] CPT-55723 Level 4 Est. Patient 09:54:20 CDT Capo Poe MD [facility] CPT-36942 Level 3 Est. Patient 10:48:30 CDT Capo Poe MD [facility] CPT-81128 Level 3 Est. Patient 11:24:45 CDT Capo Poe MD [facility] CPT-79493 Level 3 Est. Patient 15:23:48 SILVICULTURIST Capo Poe MD [facility] CPT-20223 Level 3 Est. Patient 15:10:03 SILVICULTURIST Capo Poe MD [facility] CPT-51446 Level 3 Est. Patient 16:18:40 CDT Zoran Arzola MD [facility] Procedures Code Procedure Name Date Entry Date Standard Description CPT-01780 Hemoccult IFOBT - LAB USE ONLY 14:11:43 SILVICULTURIST CPT-76466 TPSA - LAB USE ONLY 10:37:52 SILVICULTURIST CPT-85941 TSH - LAB USE ONLY 10:37:51 SILVICULTURIST CPT-76307 CMP - LAB USE ONLY 10:37:51 SILVICULTURIST CPT-95562 CBC with Diff - LAB USE ONLY 10:37:51 SILVICULTURIST CPT-17123 Venipuncture Draw Fee 10:37:51 SILVICULTURIST CPT-000 Give Pneumovax 10:39:30 CDT CPT-95223 Venipuncture Draw Fee 09:32:34 CDT CPT-G0438 Initial Annual Wellness Exam 10:24:35 CDT CPT-74546 Venipuncture Draw Fee 09:46:29 CDT CPT-45920 Venipuncture Draw Fee 14:30:06 CDT CPT-77731 Venipuncture Draw Fee 10:58:22 CDT CPT-77854 Abd single AP View 08:32:00 CDT CPT-30446 Postop F/U Visit 21:13:08 CDT CPT-55892 Abd single AP View 15:50:24 CDT CPT-43523 Cystoscopy W/rem FB 15:21:28 CDT CPT-30165 Abd single AP View 14:06:45 CDT CPT-14063 Postop F/U Visit 09:48:32 CDT CPT-44586 Abd single AP View 13:58:26 CDT CPT-55541 Hip comp min 2V 10:27:18 SILVICULTURIST CPT-58343 Urine Dip (Floor Use Only) 13:41:01 SILVICULTURIST CPT-02515 Postop F/U Visit 11:17:48 CDT CPT-LR Lesion Removal 11:50:22 CDT CPT-OV Office Visit 11:50:22 CDT CPT-29611 Pneumovax 23 10:55:48 CDT CPT-97158 Administration single or combination vaccine inc oral 10 :55:48 CDT CPT-Cryo Cryotherapy 11:18:11 CDT CPT-OV Office Visit 11:18:11 CDT CPT-89056 LS spine AP and Lat 09:05:22 CDT CPT-24820 Bladder Scan 15:42:00 CDT CPT-52460 Cystoscopy 15:42:00 CDT CPT-OV Office Visit 16:37:19 SILVICULTURIST CPT-85334 Bladder Scan 15:32:10 SILVICULTURIST CPT-91291 Cystoscopy 15:32:10 SILVICULTURIST CPT-16568 Abd single AP View 14:05:59 SILVICULTURIST CPT-02759 Pill cam small bowel 09:48:39 SILVICULTURIST CPT-38196 Urine Dip (Floor Use Only) 17:17:19 SILVICULTURIST CPT-34164 Bladder Scan 17:17:19 SILVICULTURIST CPT-OV Office Visit 11:50:26 SILVICULTURIST CPT-08768 Bladder Scan 10:10:42 CDT CPT-81770 Venipuncture Draw Fee 09:14:04 CDT CPT-52426 Chest 2V Frontal and Lat 10:10:49 CDT CPT-51204 LS spine comp w obliq 11:50:11 CDT CPT-39644 Venipuncture Draw Fee 08:52:57 SILVICULTURIST CPT-49738 Cystoscopy W/rem FB 18:37:28 CDT CPT-54999 Abd single AP View 16:18:40 CDT CPT-81390 Abd compl w upright 17:30:59 CDT
--- OUTSIDE RECORDS SUMMARY | 2016-11-22 17:29 | XMS REPORT | Clinical Summary ---
Author Author Admin, MARGE Organization [facility] Address Unknown Phone Unavailable Allergies, Adverse [...] Poe MD BLADDER CALCULUS ICD-594.1 Inactive Capo Peo MD HEMATURIA ICD-599.70 Inactive Capo Poe MD [...] 2 puffs BID MOMETASONE FURO- FORMOTEROL FUM 59003869320 Active Capo Poe MD Active SERTRALINE HCL 100 MG ORAL TABS take 1 tab daily SERTRALINE HCL 46328086275 Active Caop Poe MD Active ZOLOFT 100 MG TABS 1 po daily SERTRALINE HCL 46952934789 No Longer Active Zoran Arzola MD Active FERROUS SULFATE 325 (65 FE) MG TABS 1 tablet by mouth daily FERROUS SULFATE 76996617660 No Longer Active Capo Poe MD Active TRAMADOL HCL 50 MG TABS 1-2 tablets every 6 hours as needed for pain TRAMADOL HCL 91973561604 Active Capo Poe MD Active HYDROCODONE-ACETAMINOPHEN 7.5-300 MG TABS take one every six hours HYDROCODONE-ACETAMINOPHEN 46787483501 No Longer Active Capo Poe MD Active TRIAMCINOLONE ACETONIDE 0.1 % OINT Apply to affected areas TID for up to 2 weeks TRIAMCINOLONE ACETONIDE 38448849621 No Longer Active Joe Vargas RN Active FERROUS SULFATE 325 (65 FE) MG TABS Take one by mouth daily FERROUS SULFATE 75737487795 No Longer Active Capo Poe MD Active TRIAMCINOLONE ACETONIDE 0.1 % OINT Apply to affected areas TID for up to 2 weeks TRIAMCINOLONE ACETONIDE 88842407730 No Longer Active Capo Poe MD Active ADULT ASPIRIN LOW STRENGTH 81 MG TBDP qd ASPIRIN 29070799038 Active Zoran Arzola MD Active ALEVE 220 MG TAB prn NAPROXEN SODIUM 11621669228 Active Capo Poe MD Active LISINOPRIL-HYDROCHLOROTHIAZIDE 10-12.5 MG TABS 1 tab by mouth daily LISINOPRIL-HYDROCHLOROTHIAZIDE 81902452985 Active Capo Poe MD Active MACROBID 100 MG CAP 1 cap by mouth twice daily NITROFURANTOIN MONOHYD MACRO 64693551451 No Longer Active Dona Becker Active AZITHROMYCIN 250 MG TABS 2 po qd x 1 day, then 1 po qd x 4 days AZITHROMYCIN 00324672160 No Longer Active Capo Poe MD Active FISH OIL 500 MG CAPS by mouth twice a day OMEGA-3 FATTY ACIDS 39126333830 Active Capo Poe MD Active FLAXSEED OIL 1000 MG CAPS Take two by mouth daily FLAXSEED (LINSEED) 81703580394 Active Zoran Arzola MD Active RED YEAST RICE 600 MG CAPS Take two by mouth daily RED YEAST RICE EXTRACT 96734719372 Active Zoran Arzola MD Active MULTIVITAMINS CAPS Take one by mouth daily MULTIPLE VITAMIN 07049106639 Active Zoran Arzola MD Active ICAPS MV TABS 2 po daily MULTIPLE VITAMINS-MINERALS 55819215887 Active Jam Arnold DO Active MACROBID 100 MG CAP 1 cap by mouth twice daily MACROBID 100 MG CAP 496917 NITROFURANTOIN MONOHYD MACRO Inactive FERROUS SULFATE 325 (65 FE) MG TABS Take one by mouth daily FERROUS SULFATE 325 (65 FE) MG TABS 015012 FERROUS SULFATE Inactive HYDROCODONE-ACETAMINOPHEN 7.5-300 MG TABS take one every six hours HYDROCODONE-ACETAMINOPHEN 7.5-300 MG TABS 943177 HYDROCODONE- ACETAMINOPHEN Inactive FERROUS SULFATE 325 (65 FE) MG TABS 1 tablet by mouth daily FERROUS SULFATE 325 (65 FE) MG TABS 111490 FERROUS SULFATE Inactive ZOLOFT 100 MG TABS 1 po daily ZOLOFT 100 MG TABS 317620 SERTRALINE HCL Inactive AZITHROMYCIN 250 MG TABS 2 po qd x 1 day, then 1 po qd x 4 days AZITHROMYCIN 250 MG TABS 4483030 AZITHROMYCIN Inactive TRIAMCINOLONE ACETONIDE 0.1 % OINT Apply to affected areas TID for up to 2 weeks TRIAMCINOLONE ACETONIDE 0.1 % OINT 0230704 TRIAMCINOLONE ACETONIDE Inactive TRIAMCINOLONE ACETONIDE 0.1 % OINT Apply to affected areas TID for up to 2 weeks TRIAMCINOLONE ACETONIDE 0.1 % OINT 9792650 TRIAMCINOLONE ACETONIDE Inactive Advance Directives Directive Description [...] Description Chart Maintenance: Outside labs entered on [facility] - Chemistry sodium, serum 137 mmol/L potassium, [...] Panel - Chemistry sodium, serum 140 mmol/L 657-371 5507/05/21 potassium, serum 4.0 mmol/L 3.5-5.2 chloride, serum [...] CBC - Chemistry cholesterol, serum 207 mg/dL 319-263 7936/02/11 triglyceride, serum, fasting 74 mg/dL 30-200 HDL cholesterol, serum 62 mg/dL 32-96 LDL cholesterol, serum 130 mg/dL 0-130 sodium, serum 144 mmol/L 362-323 6042/02/11 potassium, serum 5.0 mmol/L 3.5-5.2 chloride, serum [...] negative Encounters Code Encounter Date Provider Facility CPT-54795 Level 3 Est. Patient 08:20:19 CDT Zoran Arzola MD [facility] CPT-19096 Level 3 Est. Patient 09:22:21 CDT Capo Poe MD [facility] CPT-00796 Level 4 Est. Patient 10:21:30 E COMMERCE STRATEGIST Capo Poe MD [facility] CPT-51168 Level 3 Est. Patient 17:08:51 E COMMERCE STRATEGIST Zoran Arzola MD [facility] CPT-71260 Level 4 Est. Patient 09:44:42 CDT Capo Poe MD [facility] CPT-82973 Level 4 Est. Patient 10:39:29 CDT Capo Poe MD [facility] CPT-64340 Level 3 Est. Patient 17:45:23 CDT Zoran Arzola MD [facility] CPT-41753 Level 4 Est. Patient 08:50:44 CDT Capo Poe MD [facility] CPT-88575 Level 3 Est. Patient 10:39:51 E COMMERCE STRATEGIST Capo Poe MD [facility] CPT-44119 Level 4 Est. Patient 09:44:24 E COMMERCE STRATEGIST Capo Poe MD [facility] CPT-23384 Level 3 Est. Patient 14:48:42 E COMMERCE STRATEGIST Zoran Arzola MD [facility] CPT-45463 Level 4 Est. Patient 10:24:02 CDT Capo Poe MD [facility] CPT-55750 Level 3 Est. Patient 15:42:00 CDT Maya Brownlee ERNST [facility] CPT-29258 Level 4 Est. Patient 13:34:15 CDT Capo Poe MD [facility] CPT-06647 Level 3 Est. Patient 15:32:10 E COMMERCE STRATEGIST Zoran Arzola MD [facility] CPT-09517 Level 3 New Patient 17:17:19 E COMMERCE STRATEGIST Zoran Arzola MD [facility] CPT-19494 Level 4 Est. Patient 10:25:01 E COMMERCE STRATEGIST Capo Poe MD [facility] CPT-90270 Level 3 Est. Patient 10:10:42 CDT Zoran Arzola MD [facility] CPT-36941 Level 3 Est. Patient 22:30:02 CDT Zoran Arzola MD [facility] CPT-39212 Level 4 Est. Patient 09:54:20 CDT Capo Poe MD [facility] CPT-89434 Level 3 Est. Patient 10:48:30 CDT Capo Poe MD [facility] CPT-06848 Level 3 Est. Patient 11:24:45 CDT Capo Poe MD [facility] CPT-18020 Level 3 Est. Patient 15:23:48 E COMMERCE STRATEGIST Capo Poe MD [facility] CPT-03757 Level 3 Est. Patient 15:10:03 E COMMERCE STRATEGIST Capo Poe MD [facility] CPT-64944 Level 3 Est. Patient 16:18:40 CDT Zoran Arzola MD [facility] Procedures Code Procedure Name Date Entry Date Standard Description CPT-76292 Cystoscopy W/rem FB 15:21:28 CDT CPT-77607 Abd single AP View 14:06:45 CDT CPT-54640 Postop F/U Visit 09:48:32 CDT CPT-30907 Abd single AP View 13:58:26 CDT CPT-97885 Hip comp min 2V 10:27:18 E COMMERCE STRATEGIST CPT-48716 Urine Dip (Floor Use Only) 13:41:01 E COMMERCE STRATEGIST CPT-57516 Postop F/U Visit 11:17:48 CDT CPT-LR Lesion Removal 11:50:22 CDT CPT-OV Office Visit 11:50:22 CDT CPT-64591 Pneumovax 23 10:55:48 CDT CPT-09207 Administration single or combination vaccine inc oral 10 :55:48 CDT CPT-Cryo Cryotherapy 11:18:11 CDT CPT-OV Office Visit 11:18:11 CDT CPT-11146 LS spine AP and Lat 09:05:22 CDT CPT-29032 Bladder Scan 15:42:00 CDT CPT-59875 Cystoscopy 15:42:00 CDT CPT-OV Office Visit 16:37:19 E COMMERCE STRATEGIST CPT-09171 Bladder Scan 15:32:10 E COMMERCE STRATEGIST CPT-86262 Cystoscopy 15:32:10 E COMMERCE STRATEGIST CPT-50432 Abd single AP View 14:05:59 E COMMERCE STRATEGIST CPT-54538 Pill cam small bowel 09:48:39 E COMMERCE STRATEGIST CPT-79376 Urine Dip (Floor Use Only) 17:17:19 E COMMERCE STRATEGIST CPT-11860 Bladder Scan 17:17:19 E COMMERCE STRATEGIST CPT-OV Office Visit 11:50:26 E COMMERCE STRATEGIST CPT-83693 Bladder Scan 10:10:42 CDT CPT-65485 Venipuncture Draw Fee 09:14:04 CDT CPT-50346 Chest 2V Frontal and Lat 10:10:49 CDT CPT-93421 LS spine comp w obliq 11:50:11 CDT CPT-50767 Venipuncture Draw Fee 08:52:57 E COMMERCE STRATEGIST CPT-22911 Cystoscopy W/rem FB 18:37:28 CDT CPT-19230 Abd single AP View 16:18:40 CDT CPT-83250 Abd compl w upright 17:30:59 CDT
--- OUTSIDE RECORDS SUMMARY | 2016-11-22 17:31 | XMS REPORT | Clinical Summary ---
Author Author Admin, QIE Organization [facility] Address Unknown Phone Unavailable Allergies, Adverse Reactions, [...] 1 tablet by mouth daily CITALOPRAM HYDROBROMIDE 09246900665 Active Felisamario TEIXEIRA Active CLARITIN 5 MG ORAL CHEW 1 tab po q day LORATADINE 66751504453 Active Felisa Daphney RMMarva Active VIIBRYD STARTER PACK 10 & 20 MG ORAL KIT 1 po qd as directed 2015 VILAZODONE HCL 47739931284 No Longer Active Felisa TEIXEIRA Active HYDROXYZINE HCL 25 MG TAB 1 po qHS PRN Insomnia HYDROXYZINE HCL 79162843881 Active Capo Poe MD Active LISINOPRIL 10 MG TABS 1 tablet by mouth daily LISINOPRIL 76011788705 Active Capo Poe MD Active LORTAB 7.5-325 MG ORAL TABS 1 po q 6 hr prn pain HYDROCODONE- ACETAMINOPHEN 66313297556 No Longer Active Capo Poe MD Active FLOMAX 0.4 MG CAPS Take one by mouth daily TAMSULOSIN HCL 17584422234 No Longer Active Capo Poe MD Active TRIAMCINOLONE ACETONIDE 0.1 % CREA Apply to affected areas TID for up to 2 weeks TRIAMCINOLONE ACETONIDE 89046364255 Active Capo Poe MD Active NICOTINE 14 MG/24HR TRANS PT24 Apply/Change q 24hr NICOTINE 17757075297 No Longer Active Capo Poe MD Active TRAMADOL HCL 50 MG TABS 1-2 tablets every 6 hours as needed for pain TRAMADOL HCL 82720079586 No Longer Active Capo Peo MD Active SERTRALINE HCL 100 MG ORAL TABS take 1 tab daily SERTRALINE HCL 09038838987 No Longer Active Capo Poe MD Active LISINOPRIL-HYDROCHLOROTHIAZIDE 10-12.5 MG TABS 0.5 tab by mouth daily LISINOPRIL-HYDROCHLOROTHIAZIDE 18390879449 No Longer Active Capo Poe MD Active OMEPRAZOLE 20 MG CPDR 1 tablet by mouth daily OMEPRAZOLE 90999793584 Active Capo Poe MD Active WELLBUTRIN SR 150 MG ORAL [id number] 1 po BID BUPROPION HCL 88262354715 No Longer Active Capo Poe MD Active MIRALAX PACK 1 po qd PRN Constipation POLYETHYLENE GLYCOL 3350 90378713098 Active Capo Poe MD Active DULERA 100-5 MCG/ACT AERO 2 puffs BID MOMETASONE FURO- FORMOTEROL FUM 18783019459 Active Capo Poe MD Active ZOLOFT 100 MG TABS 1 po daily SERTRALINE HCL 62017745655 No Longer Active Zoran Arzola MD Active FERROUS SULFATE 325 (65 FE) MG TABS 1 tablet by mouth daily FERROUS SULFATE 86199211460 No Longer Active Capo Poe MD Active HYDROCODONE-ACETAMINOPHEN 7.5-300 MG TABS take one every six hours HYDROCODONE-ACETAMINOPHEN 08018247666 No Longer Active Capo Poe MD Active TRIAMCINOLONE ACETONIDE 0.1 % OINT Apply to affected areas TID for up to 2 weeks TRIAMCINOLONE ACETONIDE 15512309060 No Longer Active Joe Vargas RN Active FERROUS SULFATE 325 (65 FE) MG TABS Take one by mouth daily FERROUS SULFATE 04262983259 No Longer Active Capo Poe MD Active TRIAMCINOLONE ACETONIDE 0.1 % OINT Apply to affected areas TID for up to 2 weeks TRIAMCINOLONE ACETONIDE 53633353626 No Longer Active Capo Poe MD Active ADULT ASPIRIN LOW STRENGTH 81 MG TBDP qd ASPIRIN 39246345490 Active Zoran Arzola MD Active ALEVE 220 MG TAB prn NAPROXEN SODIUM 43669297570 Active Cpao Poe MD Active MACROBID 100 MG CAP 1 cap by mouth twice daily NITROFURANTOIN MONOHYD MACRO 31025209163 No Longer Active Dona Becker Active AZITHROMYCIN 250 MG TABS 2 po qd x 1 day, then 1 po qd x 4 days AZITHROMYCIN 77532874663 No Longer Active Capo Poe MD Active FISH OIL 500 MG CAPS by mouth twice a day OMEGA-3 FATTY ACIDS 20986724820 Active Capo Poe MD Active FLAXSEED OIL 1000 MG CAPS Take two by mouth daily FLAXSEED (LINSEED) 47399875998 Active Zoran Arzola MD Active RED YEAST RICE 600 MG CAPS Take two by mouth daily RED YEAST RICE EXTRACT 09494256927 Active Zoran Arzola MD Active MULTIVITAMINS CAPS Take one by mouth daily MULTIPLE VITAMIN 94551223342 Elza Arzola MD Active ICAPS MV TABS 2 po daily MULTIPLE VITAMINS-MINERALS 76416472765 Active Jam Arnold DO Active MACROBID 100 MG CAP 1 cap by mouth twice daily MACROBID 100 MG CAP 8659963 NITROFURANTOIN MONOHYD MACRO Inactive FERROUS SULFATE 325 (65 FE) MG TABS Take one by mouth daily FERROUS SULFATE 325 (65 FE) MG TABS 462617 FERROUS SULFATE Inactive HYDROCODONE-ACETAMINOPHEN 7.5-300 MG TABS take one every six hours HYDROCODONE-ACETAMINOPHEN 7.5-300 MG TABS 741874 HYDROCODONE- ACETAMINOPHEN Inactive FERROUS SULFATE 325 (65 FE) MG TABS 1 tablet by mouth daily FERROUS SULFATE 325 (65 FE) MG TABS 914078 FERROUS SULFATE Inactive ZOLOFT 100 MG TABS 1 po daily ZOLOFT 100 MG TABS 827874 SERTRALINE HCL Inactive SERTRALINE HCL 100 MG ORAL TABS take 1 tab daily SERTRALINE HCL 100 MG ORAL TABS 170448 SERTRALINE HCL Inactive TRAMADOL HCL 50 MG TABS 1-2 tablets every 6 hours as needed for pain TRAMADOL HCL 50 MG TABS 516033 TRAMADOL HCL Inactive NICOTINE 14 MG/24HR TRANS PT24 Apply/Change q 24hr NICOTINE 14 MG/24HR TRANS PT24 943892 NICOTINE Inactive FLOMAX 0.4 MG CAPS Take one by mouth daily FLOMAX 0.4 MG CAPS 712438 TAMSULOSIN HCL Inactive LORTAB 7.5-325 MG ORAL TABS 1 po q 6 hr prn pain LORTAB 7.5- 325 MG ORAL TABS 777567 HYDROCODONE-ACETAMINOPHEN Inactive VIIBRYD STARTER PACK 10 & 20 MG ORAL KIT 1 po qd as directed 2015 VIIBRYD STARTER PACK 10 & 20 MG ORAL KIT VILAZODONE HCL Inactive AZITHROMYCIN 250 MG TABS 2 po qd x 1 day, then 1 po qd x 4 days AZITHROMYCIN 250 MG TABS 9387513 AZITHROMYCIN Inactive TRIAMCINOLONE ACETONIDE 0.1 % OINT Apply to affected areas TID for up to 2 weeks TRIAMCINOLONE ACETONIDE 0.1 % OINT 1337532 TRIAMCINOLONE ACETONIDE Inactive TRIAMCINOLONE ACETONIDE 0.1 % OINT Apply to affected areas TID for up to 2 weeks TRIAMCINOLONE ACETONIDE 0.1 % OINT 1300876 TRIAMCINOLONE ACETONIDE Inactive Advance Directives Directive Description [...] Panel - Chemistry sodium, serum 139 mmol/L 062-282 5202/07/30 potassium, serum 4.7 mmol/L 3.5-5.2 chloride, serum [...] mg/g mg/g{creat} 0-29 sodium, serum 138 mmol/L 361-996 4038/03/18 carbon dioxide, venous blood 25.5 mmol/L 21.0-32.0 potassium, serum 4.6 mmol/L 3.5-5.2 chloride, serum 101 mmol/L 98-107 blood glucose 129 mg/dL 65-110 urea nitrogen, blood 20 mg/dL 7-18 creatinine, serum 1.87 mg/dL 0.55-1.30 alanine aminotransferase (SGPT), serum 26 U/L 12-78 aspartate aminotransferase (SGOT), serum 20 U/L 15-37 calcium, serum 8.8 mg/dL 8.5-10.1 bilirubin, serum, total 0.40 mg/dL 0.00-1.00 cholesterol, serum 251 mg/dL 240-091 5248/03/18 triglyceride, serum, fasting 135 mg/dL 30-200 HDL [...] 0.00-4.00 Encounters Code Encounter Date Provider Facility CPT-65592 Level 4 Est. Patient 10:22:57 CDT Capo Poe MD [facility] CPT-93869 Level 4 Est. Patient 13:44:30 CDT Capo Poe MD [facility] CPT-08790 Level 3 Est. Patient 14:59:32 [employer] Capo Poe MD [facility] CPT-31960 Level 4 Est. Patient 10:46:15 [employer] Capo Poe MD [facility] CPT-37519 Level 3 Est. Patient 11:00:53 CDT Capo Poe MD [facility] CPT-04441 Level 3 Est. Patient 09:39:35 CDT Capo Poe MD [facility] CPT-72137 Level 3 Est. Patient 09:27:01 CDT Capo Poe MD [facility] CPT-60669 Level 3 Est. Patient 18:37:08 CDT Zoran Arzola MD [facility] CPT-65177 Level 3 Est. Patient 15:00:28 CDT Capo Poe MD [facility] CPT-84570 Level 3 Est. Patient 08:20:19 CDT Zoran Arzola MD [facility] CPT-63039 Level 3 Est. Patient 09:22:21 CDT Capo Poe MD [facility] CPT-78785 Level 4 Est. Patient 10:21:30 [employer] Capo Poe MD [facility] CPT-21177 Level 3 Est. Patient 17:08:51 [employer] Zoran Arzola MD [facility] CPT-29641 Level 4 Est. Patient 09:44:42 CDT Capo Poe MD [facility] CPT-36554 Level 4 Est. Patient 10:39:29 CDT Capo Poe MD [facility] CPT-28386 Level 3 Est. Patient 17:45:23 CDT Zoran Arzola MD [facility] CPT-74645 Level 4 Est. Patient 08:50:44 CDT Capo Poe MD [facility] CPT-12870 Level 3 Est. Patient 10:39:51 [employer] Capo Poe MD [facility] CPT-92842 Level 4 Est. Patient 09:44:24 [employer] Capo Poe MD [facility] CPT-91212 Level 3 Est. Patient 14:48:42 [employer] Zoran Arzola MD [facility] CPT-05985 Level 4 Est. Patient 10:24:02 CDT Capo Poe MD [facility] CPT-08922 Level 3 Est. Patient 15:42:00 CDT Maya DUKES [facility] CPT-02759 Level 4 Est. Patient 13:34:15 CDT Capo Poe MD [facility] CPT-26224 Level 3 Est. Patient 15:32:10 [employer] Zoran Arzola MD [facility] CPT-21207 Level 3 New Patient 17:17:19 [employer] Zoran Arzola MD [facility] CPT-01392 Level 4 Est. Patient 10:25:01 [employer] Capo Poe MD [facility] CPT-63605 Level 3 Est. Patient 10:10:42 CDT Zoran Arzola MD [facility] CPT-15180 Level 3 Est. Patient 22:30:02 CDT Zoran Arzola MD [facility] CPT-28431 Level 4 Est. Patient 09:54:20 CDT Capo Poe MD [facility] CPT-53137 Level 3 Est. Patient 10:48:30 CDT Capo Poe MD [facility] CPT-53552 Level 3 Est. Patient 11:24:45 CDT Capo Poe MD [facility] CPT-98915 Level 3 Est. Patient 15:23:48 [employer] Capo Poe MD [facility] CPT-16299 Level 3 Est. Patient 15:10:03 [employer] Capo Poe MD [facility] CPT-77771 Level 3 Est. Patient 16:18:40 CDT Zoran Arzola MD [facility] Procedures Code Procedure Name Date Entry Date Standard Description CPT-47595 Venipuncture Draw Fee 09:32:34 CDT CPT-G0438 Initial Annual Wellness Exam 10:24:35 CDT CPT-20572 Venipuncture Draw Fee 09:46:29 CDT CPT-87577 Venipuncture Draw Fee 14:30:06 CDT CPT-85958 Venipuncture Draw Fee 10:58:22 CDT CPT-97020 Abd single AP View 08:32:00 CDT CPT-75984 Postop F/U Visit 21:13:08 CDT CPT-15895 Abd single AP View 15:50:24 CDT CPT-92655 Cystoscopy W/rem FB 15:21:28 CDT CPT-53672 Abd single AP View 14:06:45 CDT CPT-63685 Postop F/U Visit 09:48:32 CDT CPT-62108 Abd single AP View 13:58:26 CDT CPT-00134 Hip comp min 2V 10:27:18 [employer] CPT-42902 Urine Dip (Floor Use Only) 13:41:01 [employer] CPT-69814 Postop F/U Visit 11:17:48 CDT CPT-LR Lesion Removal 11:50:22 CDT CPT-OV Office Visit 11:50:22 CDT CPT-43958 Pneumovax 23 10:55:48 CDT CPT-41109 Administration single or combination vaccine inc oral 10 :55:48 CDT CPT-Cryo Cryotherapy 11:18:11 CDT CPT-OV Office Visit 11:18:11 CDT CPT-77692 LS spine AP and Lat 09:05:22 CDT CPT-92993 Bladder Scan 15:42:00 CDT CPT-31066 Cystoscopy 15:42:00 CDT CPT-OV Office Visit 16:37:19 [employer] CPT-09055 Bladder Scan 15:32:10 [employer] CPT-96313 Cystoscopy 15:32:10 [employer] CPT-36996 Abd single AP View 14:05:59 [employer] CPT-63765 Pill cam small bowel 09:48:39 [employer] CPT-45190 Urine Dip (Floor Use Only) 17:17:19 [employer] CPT-78511 Bladder Scan 17:17:19 [employer] CPT-OV Office Visit 11:50:26 [employer] CPT-33293 Bladder Scan 10:10:42 CDT CPT-28573 Venipuncture Draw Fee 09:14:04 CDT CPT-65072 Chest 2V Frontal and Lat 10:10:49 CDT CPT-64462 LS spine comp w obliq 11:50:11 CDT CPT-72091 Venipuncture Draw Fee 08:52:57 [employer] CPT-15647 Cystoscopy W/rem FB 18:37:28 CDT CPT-28789 Abd single AP View 16:18:40 CDT CPT-09367 Abd compl w upright 17:30:59 CDT
--- OUTSIDE RECORDS SUMMARY | 2016-11-22 17:32 | XMS REPORT | Clinical Summary ---
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 Inactive Capo Poe MD UTI ICD-599.0 Inactive Capo Poe MD Hematuria ICD-599.70 Inactive Capo Poe MD Sciatica, right ICD-724.3 Inactive Capo Poe MD Renal Calculus ICD-592.9 Inactive Capo Poe MD Urethral calculus ICD-594.2 Inactive Capo Poe MD Chest pain ICD-786.50 Inactive Caop Poe MD Prostate cancer screening ICD-V76.44 Inactive Capo Poe MD Pruritic rash ICD-698.8 Inactive Capo Poe MD Elevated creatinine ICD-790.4 Inactive Capo Poe MD Medication List Medication Instructions Start Date Stop Date Generic Name NDC Status Provider Patient Instruction EQL IRON SUPPLEMENT THERAPY 325 MG ORAL TABS 1 tab po twice daily FERROUS SULFATE 73181957846 Active Jasmin TEIXEIRA Active D ORAL TABS 2000 iu weekly D ORAL TABS Active Capo Poe MD Active CITALOPRAM HYDROBROMIDE 20 MG TABS 1 tablet by mouth daily CITALOPRAM HYDROBROMIDE 22761292467 Active Capo Poe MD Active CLARITIN 5 MG ORAL CHEW 1 tab po q day LORATADINE 12009788559 Active Felisa TEIXEIRA Active VIIBRYD STARTER PACK 10 & 20 MG ORAL KIT 1 po qd as directed 2015 VILAZODONE HCL 00210087725 No Longer Active Felisa TEIXEIRA Active HYDROXYZINE HCL 25 MG TAB 1 po qHS PRN Insomnia HYDROXYZINE HCL 87834540859 Active Capo Poe MD Active LISINOPRIL 10 MG TABS 1 tablet by mouth daily LISINOPRIL 73926147573 Active Capo Poe MD Active LORTAB 7.5-325 MG ORAL TABS 1 po q 6 hr prn pain HYDROCODONE- ACETAMINOPHEN 78452770902 No Longer Active Capo Poe MD Active FLOMAX 0.4 MG CAPS Take one by mouth daily TAMSULOSIN HCL 26804268713 No Longer Active Capo Poe MD Active TRIAMCINOLONE ACETONIDE 0.1 % CREA Apply to affected areas TID for up to 2 weeks TRIAMCINOLONE ACETONIDE 81356149142 Active Capo Poe MD Active NICOTINE 14 MG/24HR TRANS PT24 Apply/Change q 24hr NICOTINE 55783652384 No Longer Active Capo Poe MD Active TRAMADOL HCL 50 MG TABS 1-2 tablets every 6 hours as needed for pain TRAMADOL HCL 84641280342 No Longer Active Capo Poe MD Active SERTRALINE HCL 100 MG ORAL TABS take 1 tab daily SERTRALINE HCL 51842723743 No Longer Active Capo Poe MD Active LISINOPRIL-HYDROCHLOROTHIAZIDE 10-12.5 MG TABS 0.5 tab by mouth daily LISINOPRIL-HYDROCHLOROTHIAZIDE 44281736454 No Longer Active Capo Poe MD Active OMEPRAZOLE 20 MG CPDR 1 tablet by mouth daily OMEPRAZOLE 36721938591 Active Capo Poe MD Active WELLBUTRIN SR 150 MG ORAL [id number] 1 po BID BUPROPION HCL 79349270558 No Longer Active Capo Poe MD Active MIRALAX PACK 1 po qd PRN Constipation POLYETHYLENE GLYCOL 3350 35668957332 Active Capo Poe MD Active DULERA 100-5 MCG/ACT AERO 2 puffs BID MOMETASONE FURO- FORMOTEROL FUM 30758164982 Active Capo Poe MD Active ZOLOFT 100 MG TABS 1 po daily SERTRALINE HCL 64303212308 No Longer Active Zoran Arzola MD Active FERROUS SULFATE 325 (65 FE) MG TABS 1 tablet by mouth daily FERROUS SULFATE 50817454169 No Longer Active Capo Poe MD Active HYDROCODONE-ACETAMINOPHEN 7.5-300 MG TABS take one every six hours HYDROCODONE-ACETAMINOPHEN 83905291376 No Longer Active Capo Poe MD Active TRIAMCINOLONE ACETONIDE 0.1 % OINT Apply to affected areas TID for up to 2 weeks TRIAMCINOLONE ACETONIDE 74624961381 No Longer Active Joe Vargas RN Active FERROUS SULFATE 325 (65 FE) MG TABS Take one by mouth daily FERROUS SULFATE 03486895817 No Longer Active Capo Poe MD Active TRIAMCINOLONE ACETONIDE 0.1 % OINT Apply to affected areas TID for up to 2 weeks TRIAMCINOLONE ACETONIDE 74963354475 No Longer Active Capo Poe MD Active ADULT ASPIRIN LOW STRENGTH 81 MG TBDP qd ASPIRIN 77226502873 Active Zoran Arzola MD Active ALEVE 220 MG TAB prn NAPROXEN SODIUM 17368299493 Active Capo Poe MD Active MACROBID 100 MG CAP 1 cap by mouth twice daily NITROFURANTOIN MONOHYD MACRO 68276081657 No Longer Active Dona Becker Active AZITHROMYCIN 250 MG TABS 2 po qd x 1 day, then 1 po qd x 4 days AZITHROMYCIN 16846105470 No Longer Active Capo Poe MD Active FISH OIL 500 MG CAPS by mouth twice a day OMEGA-3 FATTY ACIDS 75285582516 Active Capo Poe MD Active FLAXSEED OIL 1000 MG CAPS Take two by mouth daily FLAXSEED (LINSEED) 79678678158 Active Zoran Arzola MD Active RED YEAST RICE 600 MG CAPS Take two by mouth daily RED YEAST RICE EXTRACT 73988903309 Active Zoran Arzola MD Active MULTIVITAMINS CAPS Take one by mouth daily MULTIPLE VITAMIN 52232865988 Active Zoran Arzola MD Active ICAPS MV TABS 2 po daily MULTIPLE VITAMINS-MINERALS 26317536075 Active Jam Arnold DO Active MACROBID 100 MG CAP 1 cap by mouth twice daily MACROBID 100 MG CAP 7099463 NITROFURANTOIN MONOHYD MACRO Inactive FERROUS SULFATE 325 (65 FE) MG TABS Take one by mouth daily FERROUS SULFATE 325 (65 FE) MG TABS 337049 FERROUS SULFATE Inactive HYDROCODONE-ACETAMINOPHEN 7.5-300 MG TABS take one every six hours HYDROCODONE-ACETAMINOPHEN 7.5-300 MG TABS 793039 HYDROCODONE- ACETAMINOPHEN Inactive FERROUS SULFATE 325 (65 FE) MG TABS 1 tablet by mouth daily FERROUS SULFATE 325 (65 FE) MG TABS 602196 FERROUS SULFATE Inactive ZOLOFT 100 MG TABS 1 po daily ZOLOFT 100 MG TABS 848829 SERTRALINE HCL Inactive SERTRALINE HCL 100 MG ORAL TABS take 1 tab daily SERTRALINE HCL 100 MG ORAL TABS 193925 SERTRALINE HCL Inactive TRAMADOL HCL 50 MG TABS 1-2 tablets every 6 hours as needed for pain TRAMADOL HCL 50 MG TABS 107049 TRAMADOL HCL Inactive NICOTINE 14 MG/24HR TRANS PT24 Apply/Change q 24hr NICOTINE 14 MG/24HR TRANS PT24 124826 NICOTINE Inactive FLOMAX 0.4 MG CAPS Take one by mouth daily FLOMAX 0.4 MG CAPS 708727 TAMSULOSIN HCL Inactive LORTAB 7.5-325 MG ORAL TABS 1 po q 6 hr prn pain LORTAB 7.5- 325 MG ORAL TABS 957321 HYDROCODONE-ACETAMINOPHEN Inactive VIIBRYD STARTER PACK 10 & 20 MG ORAL KIT 1 po qd as directed 2015 VIIBRYD STARTER PACK 10 & 20 MG ORAL KIT VILAZODONE HCL Inactive AZITHROMYCIN 250 MG TABS 2 po qd x 1 day, then 1 po qd x 4 days AZITHROMYCIN 250 MG TABS 6603052 AZITHROMYCIN Inactive TRIAMCINOLONE ACETONIDE 0.1 % OINT Apply to affected areas TID for up to 2 weeks TRIAMCINOLONE ACETONIDE 0.1 % OINT 5288850 TRIAMCINOLONE ACETONIDE Inactive TRIAMCINOLONE ACETONIDE 0.1 % OINT Apply to affected areas TID for up to 2 weeks TRIAMCINOLONE ACETONIDE 0.1 % OINT 3892926 TRIAMCINOLONE ACETONIDE Inactive Advance Directives Directive Description [...] ... - Chemistry sodium, serum 141 mmol/L 592-532 7561/01/27 carbon dioxide, venous blood 29.7 mmol/L 21.0-32.0 [...] ... - Chemistry sodium, serum 138 mmol/L 586-123 6961/03/18 carbon dioxide, venous blood 25.5 mmol/L 21.0-32.0 potassium, serum 4.6 mmol/L 3.5-5.2 chloride, serum 101 mmol/L 98-107 blood glucose 129 mg/dL 65-110 urea nitrogen, blood 20 mg/dL 7-18 creatinine, serum 1.87 mg/dL 0.55-1.30 alanine aminotransferase (SGPT), serum 26 U/L 12-78 aspartate aminotransferase (SGOT), serum 20 U/L 15-37 calcium, serum 8.8 mg/dL 8.5-10.1 bilirubin, serum, total 0.40 mg/dL 0.00-1.00 cholesterol, serum 251 mg/dL 127-732 6995/03/18 triglyceride, serum, fasting 135 mg/dL 30-200 HDL [...] 0-19 Encounters Code Encounter Date Provider Facility CPT-72727 Level 4 Est. Patient 09:26:11 [employer] Capo Poe MD [facility] CPT-75569 Level 4 Est. Patient 08:53:08 CDT Capo Poe MD [facility] CPT-14649 Level 4 Est. Patient 10:22:57 CDT Capo Poe MD [facility] CPT-21598 Level 4 Est. Patient 13:44:30 CDT Capo Poe MD [facility] CPT-68769 Level 3 Est. Patient 14:59:32 [employer] Capo Poe MD [facility] CPT-75835 Level 4 Est. Patient 10:46:15 [employer] Capo Poe MD [facility] CPT-46846 Level 3 Est. Patient 11:00:53 CDT Capo Poe MD [facility] CPT-12525 Level 3 Est. Patient 09:39:35 CDT Capo Poe MD [facility] CPT-95486 Level 3 Est. Patient 09:27:01 CDT Capo Poe MD [facility] CPT-73413 Level 3 Est. Patient 18:37:08 CDT Zoran Arzola MD [facility] CPT-26551 Level 3 Est. Patient 15:00:28 CDT Capo Poe MD [facility] CPT-69980 Level 3 Est. Patient 08:20:19 CDT Zoran Arzola MD [facility] CPT-85114 Level 3 Est. Patient 09:22:21 CDT Capo Poe MD [facility] CPT-56962 Level 4 Est. Patient 10:21:30 [employer] Capo Poe MD [facility] CPT-67335 Level 3 Est. Patient 17:08:51 [employer] Zoran Arzola MD [facility] CPT-22598 Level 4 Est. Patient 09:44:42 CDT Capo oPe MD [facility] CPT-97509 Level 4 Est. Patient 10:39:29 CDT Capo Poe MD [facility] CPT-88585 Level 3 Est. Patient 17:45:23 CDT Zoran Arzola MD [facility] CPT-31758 Level 4 Est. Patient 08:50:44 CDT Capo Poe MD [facility] CPT-54041 Level 3 Est. Patient 10:39:51 [employer] Capo Poe MD [facility] CPT-84539 Level 4 Est. Patient 09:44:24 [employer] Capo Poe MD [facility] CPT-80024 Level 3 Est. Patient 14:48:42 [employer] Zoran Arzola MD [facility] CPT-05291 Level 4 Est. Patient 10:24:02 CDT Capo Poe MD [facility] CPT-91431 Level 3 Est. Patient 15:42:00 CDT Maya DUKES [facility] CPT-56620 Level 4 Est. Patient 13:34:15 CDT Capo Poe MD [facility] CPT-54387 Level 3 Est. Patient 15:32:10 [employer] Zoran Arzola MD [facility] CPT-02836 Level 3 New Patient 17:17:19 [employer] Zoran Arzola MD [facility] CPT-13085 Level 4 Est. Patient 10:25:01 [employer] Capo Poe MD [facility] CPT-34228 Level 3 Est. Patient 10:10:42 CDT Zoran Arzola MD [facility] CPT-46352 Level 3 Est. Patient 22:30:02 CDT Zoran Arzola MD [facility] CPT-28991 Level 4 Est. Patient 09:54:20 CDT Capo Poe MD [facility] CPT-28387 Level 3 Est. Patient 10:48:30 CDT Capo Poe MD [facility] CPT-80654 Level 3 Est. Patient 11:24:45 CDT Capo Poe MD [facility] CPT-47216 Level 3 Est. Patient 15:23:48 [employer] Capo Poe MD [facility] CPT-83884 Level 3 Est. Patient 15:10:03 [employer] Capo Poe MD [facility] CPT-17775 Level 3 Est. Patient 16:18:40 CDT Zoran Arzola MD [facility] Procedures Code Procedure Name Date Entry Date Standard Description CPT-38513 Hemoccult IFOBT - LAB USE ONLY 14:11:43 [employer] CPT-34433 TPSA - LAB USE ONLY 10:37:52 [employer] CPT-36165 TSH - LAB USE ONLY 10:37:51 [employer] CPT-91251 CMP - LAB USE ONLY 10:37:51 [employer] CPT-13567 CBC with Diff - LAB USE ONLY 10:37:51 [employer] CPT-39347 Venipuncture Draw Fee 10:37:51 [employer] CPT-000 Give Pneumovax 10:39:30 CDT CPT-69393 Venipuncture Draw Fee 09:32:34 CDT CPT-G0438 Initial Annual Wellness Exam 10:24:35 CDT CPT-75465 Venipuncture Draw Fee 09:46:29 CDT CPT-26194 Venipuncture Draw Fee 14:30:06 CDT CPT-48073 Venipuncture Draw Fee 10:58:22 CDT CPT-51199 Abd single AP View 08:32:00 CDT CPT-94288 Postop F/U Visit 21:13:08 CDT CPT-80351 Abd single AP View 15:50:24 CDT CPT-38376 Cystoscopy W/rem FB 15:21:28 CDT CPT-03697 Abd single AP View 14:06:45 CDT CPT-33853 Postop F/U Visit 09:48:32 CDT CPT-73937 Abd single AP View 13:58:26 CDT CPT-84805 Hip comp min 2V 10:27:18 [employer] CPT-89881 Urine Dip (Floor Use Only) 13:41:01 [employer] CPT-26276 Postop F/U Visit 11:17:48 CDT CPT-LR Lesion Removal 11:50:22 CDT CPT-OV Office Visit 11:50:22 CDT CPT-73540 Pneumovax 23 10:55:48 CDT CPT-53215 Administration single or combination vaccine inc oral 10 :55:48 CDT CPT-Cryo Cryotherapy 11:18:11 CDT CPT-OV Office Visit 11:18:11 CDT CPT-76046 LS spine AP and Lat 09:05:22 CDT CPT-02196 Bladder Scan 15:42:00 CDT CPT-51563 Cystoscopy 15:42:00 CDT CPT-OV Office Visit 16:37:19 [employer] CPT-19239 Bladder Scan 15:32:10 [employer] CPT-02683 Cystoscopy 15:32:10 [employer] CPT-22475 Abd single AP View 14:05:59 [employer] CPT-84260 Pill cam small bowel 09:48:39 [employer] CPT-98962 Urine Dip (Floor Use Only) 17:17:19 [employer] CPT-35144 Bladder Scan 17:17:19 [employer] CPT-OV Office Visit 11:50:26 [employer] CPT-91651 Bladder Scan 10:10:42 CDT CPT-86204 Venipuncture Draw Fee 09:14:04 CDT CPT-45219 Chest 2V Frontal and Lat 10:10:49 CDT CPT-17464 LS spine comp w obliq 11:50:11 CDT CPT-48151 Venipuncture Draw Fee 08:52:57 [employer] CPT-16339 Cystoscopy W/rem FB 18:37:28 CDT CPT-14598 Abd single AP View 16:18:40 CDT CPT-84053 Abd compl w upright 17:30:59 CDT
--- OUTSIDE RECORDS SUMMARY | 2016-11-22 17:34 | XMS REPORT | Clinical Summary ---
Author Author Admin, [employer] Organization [employer] Address Unknown Phone Unavailable Allergies, Adverse Reactions, [...] site; multiple sites HYPERTENSION 401.1 Inactive Capo Peo MD Benign essential hypertension Hypertension 401.9 Active [...] collapse Iron deficiency 280.9 Active Jasmin Dixon [facility] Iron deficiency anemia, unspecified CALCULUS OF KIDNEY [...] TRACT INFECTION ICD-599.0 Inactive Capo Poe MD URINARY FREQUENCY ICD-788.41 [...] SKIN ERUPTION ICD-782.1 Inactive Capo Poe MD COUGH ICD-786.2 Inactive Capo Poe MD Anemia, iron deficiency ICD-280.9 Clyde Poe MD Near syncope ICD-780.2 Inactive [...] 1 tab po twice daily FERROUS SULFATE 71870035447 Active Jasmin TEIXEIRA Active D ORAL TABS 2000 iu weekly D ORAL TABS Active Capo Poe MD Active CITALOPRAM HYDROBROMIDE 20 MG TABS 1 tablet by mouth daily CITALOPRAM HYDROBROMIDE 88900666742 Active Capo Poe MD Active CLARITIN 5 MG ORAL CHEW 1 tab po q day LORATADINE 24066064701 Active Felisa TEIXEIRA Active VIIBRYD STARTER PACK 10 & 20 MG ORAL KIT 1 po qd as directed 2015 VILAZODONE HCL 36793333492 No Longer Active Felisa TEIXEIRA Active HYDROXYZINE HCL 25 MG TAB 1 po qHS PRN Insomnia HYDROXYZINE HCL 78979226680 Active Capo Poe MD Active LISINOPRIL 10 MG TABS 1 tablet by mouth daily LISINOPRIL 44445459604 Active Capo Poe MD Active LORTAB 7.5-325 MG ORAL TABS 1 po q 6 hr prn pain HYDROCODONE- ACETAMINOPHEN 41672444017 No Longer Active Capo Poe MD Active FLOMAX 0.4 MG CAPS Take one by mouth daily TAMSULOSIN HCL 89804923347 No Longer Active Capo Poe MD Active TRIAMCINOLONE ACETONIDE 0.1 % CREA Apply to affected areas TID for up to 2 weeks TRIAMCINOLONE ACETONIDE 49980885290 Active Capo Poe MD Active NICOTINE 14 MG/24HR TRANS PT24 Apply/Change q 24hr NICOTINE 61981198881 No Longer Active Capo Poe MD Active TRAMADOL HCL 50 MG TABS 1-2 tablets every 6 hours as needed for pain TRAMADOL HCL 20472694450 No Longer Active Capo Poe MD Active SERTRALINE HCL 100 MG ORAL TABS take 1 tab daily SERTRALINE HCL 10829875957 No Longer Active Capo Poe MD Active LISINOPRIL-HYDROCHLOROTHIAZIDE 10-12.5 MG TABS 0.5 tab by mouth daily LISINOPRIL-HYDROCHLOROTHIAZIDE 51473798131 No Longer Active Capo Poe MD Active OMEPRAZOLE 20 MG CPDR 1 tablet by mouth daily OMEPRAZOLE 69182636356 Active Capo Poe MD Active WELLBUTRIN SR 150 MG ORAL NN95A-OCN 1 po BID BUPROPION HCL 28553799513 No Longer Active Capo Poe MD Active MIRALAX PACK 1 po qd PRN Constipation POLYETHYLENE GLYCOL 3350 59765198363 Active Capo Poe MD Active DULERA 100-5 MCG/ACT AERO 2 puffs BID MOMETASONE FURO- FORMOTEROL FUM 90167158152 Active Capo Poe MD Active ZOLOFT 100 MG TABS 1 po daily SERTRALINE HCL 76079138166 No Longer Active Zoran Arzola MD Active FERROUS SULFATE 325 (65 FE) MG TABS 1 tablet by mouth daily FERROUS SULFATE 45314934880 No Longer Active Capo Poe MD Active HYDROCODONE-ACETAMINOPHEN 7.5-300 MG TABS take one every six hours HYDROCODONE-ACETAMINOPHEN 20217746204 No Longer Active Capo Poe MD Active TRIAMCINOLONE ACETONIDE 0.1 % OINT Apply to affected areas TID for up to 2 weeks TRIAMCINOLONE ACETONIDE 61256963814 No Longer Active Joe Vargas RN Active FERROUS SULFATE 325 (65 FE) MG TABS Take one by mouth daily FERROUS SULFATE 68823964169 No Longer Active Capo Poe MD Active TRIAMCINOLONE ACETONIDE 0.1 % OINT Apply to affected areas TID for up to 2 weeks TRIAMCINOLONE ACETONIDE 40912742000 No Longer Active Capo Poe MD Active ADULT ASPIRIN LOW STRENGTH 81 MG TBDP qd ASPIRIN 59034889482 Active Zoran Arzola MD Active ALEVE 220 MG TAB prn NAPROXEN SODIUM 10772294384 Active Capo Poe MD Active MACROBID 100 MG CAP 1 cap by mouth twice daily NITROFURANTOIN MONOHYD MACRO 62974951917 No Longer Active Dona Becker Active AZITHROMYCIN 250 MG TABS 2 po qd x 1 day, then 1 po qd x 4 days AZITHROMYCIN 71376926077 No Longer Active Capo Poe MD Active FISH OIL 500 MG CAPS by mouth twice a day OMEGA-3 FATTY ACIDS 27411244164 Active Capo Poe MD Active FLAXSEED OIL 1000 MG CAPS Take two by mouth daily FLAXSEED (LINSEED) 08311619420 Active Zoran Arzola MD Active RED YEAST RICE 600 MG CAPS Take two by mouth daily RED YEAST RICE EXTRACT 56336015263 Active Zoran Arzola MD Active MULTIVITAMINS CAPS Take one by mouth daily MULTIPLE VITAMIN 96975130123 Active Zoran Arzola MD Active ICAPS MV TABS 2 po daily MULTIPLE VITAMINS-MINERALS 00914984590 Active Jam Arnold DO Active MACROBID 100 MG CAP 1 cap by mouth twice daily MACROBID 100 MG CAP 6164846 NITROFURANTOIN MONOHYD MACRO Inactive FERROUS SULFATE 325 (65 FE) MG TABS Take one by mouth daily FERROUS SULFATE 325 (65 FE) MG TABS 848305 FERROUS SULFATE Inactive HYDROCODONE-ACETAMINOPHEN 7.5-300 MG TABS take one every six hours HYDROCODONE-ACETAMINOPHEN 7.5-300 MG TABS 195109 HYDROCODONE- ACETAMINOPHEN Inactive FERROUS SULFATE 325 (65 FE) MG TABS 1 tablet by mouth daily FERROUS SULFATE 325 (65 FE) MG TABS 515481 FERROUS SULFATE Inactive ZOLOFT 100 MG TABS 1 po daily ZOLOFT 100 MG TABS 226228 SERTRALINE HCL Inactive SERTRALINE HCL 100 MG ORAL TABS take 1 tab daily SERTRALINE HCL 100 MG ORAL TABS 661830 SERTRALINE HCL Inactive TRAMADOL HCL 50 MG TABS 1-2 tablets every 6 hours as needed for pain TRAMADOL HCL 50 MG TABS 504910 TRAMADOL HCL Inactive NICOTINE 14 MG/24HR TRANS PT24 Apply/Change q 24hr NICOTINE 14 MG/24HR TRANS PT24 531329 NICOTINE Inactive FLOMAX 0.4 MG CAPS Take one by mouth daily FLOMAX 0.4 MG CAPS 896199 TAMSULOSIN HCL Inactive LORTAB 7.5-325 MG ORAL TABS 1 po q 6 hr prn pain LORTAB 7.5- 325 MG ORAL TABS 558851 HYDROCODONE-ACETAMINOPHEN Inactive VIIBRYD STARTER PACK 10 & 20 MG ORAL KIT 1 po qd as directed 2015 VIIBRYD STARTER PACK 10 & 20 MG ORAL KIT VILAZODONE HCL Inactive AZITHROMYCIN 250 MG TABS 2 po qd x 1 day, then 1 po qd x 4 days AZITHROMYCIN 250 MG TABS 8151036 AZITHROMYCIN Inactive TRIAMCINOLONE ACETONIDE 0.1 % OINT Apply to affected areas TID for up to 2 weeks TRIAMCINOLONE ACETONIDE 0.1 % OINT 3128834 TRIAMCINOLONE ACETONIDE Inactive TRIAMCINOLONE ACETONIDE 0.1 % OINT Apply to affected areas TID for up to 2 weeks TRIAMCINOLONE ACETONIDE 0.1 % OINT 6134747 TRIAMCINOLONE ACETONIDE Inactive Advance Directives Directive Description [...] ... - Chemistry sodium, serum 141 mmol/L 764-702 5479/01/27 carbon dioxide, venous blood 29.7 mmol/L 21.0-32.0 [...] ... - Chemistry sodium, serum 138 mmol/L 249-151 5469/03/18 carbon dioxide, venous blood 25.5 mmol/L 21.0-32.0 potassium, serum 4.6 mmol/L 3.5-5.2 chloride, serum 101 mmol/L 98-107 blood glucose 129 mg/dL 65-110 urea nitrogen, blood 20 mg/dL 7-18 creatinine, serum 1.87 mg/dL 0.55-1.30 alanine aminotransferase (SGPT), serum 26 U/L 12-78 aspartate aminotransferase (SGOT), serum 20 U/L 15-37 calcium, serum 8.8 mg/dL 8.5-10.1 bilirubin, serum, total 0.40 mg/dL 0.00-1.00 cholesterol, serum 251 mg/dL 395-957 0156/03/18 triglyceride, serum, fasting 135 mg/dL 30-200 HDL [...] 0-19 Encounters Code Encounter Date Provider Facility CPT-32590 Level 4 Est. Patient 09:26:11 [employer] Capo Poe MD [facility] CPT-41359 Level 4 Est. Patient 08:53:08 [address] [facility] CPT-40137 Level 4 Est. Patient 10:22:57 CDT Cap[address] Poe MD [facility] CPT-28178 Level 4 Est. Patient 13:44:30 CDT [address] P[address] [facility] CPT-41959 Level 3 Est. Patient 14:59:32 [employer] Capo Poe MD [facility] CPT-79445 Level 4 Est. Patient 10:46:15 [employer] Capo Poe MD [facility] CPT-74582 Level 3 Est. Patient 11:00:53 CDT Cap[address] Poe MD [facility] CPT-10985 Level 3 Est. Patient 09:39:35 CDT [address] P[address] [facility] CPT-71443 Level 3 Est. Patient 09:27:01 CDT Capo Poe MD [facility] CPT-60023 Level 3 Est. Patient 18:37:08 CDT Zoran Arzola MD [facility] CPT-20152 Level 3 Est. Patient 15:00:28 CDT Capo Poe MD [facility] CPT-67596 Level 3 Est. Patient 08:20:19 CDT Zoran Arzola MD [facility] CPT-06313 Level 3 Est. Patient 09:22:21 CDT Cap[address] Poe MD [facility] CPT-17800 Level 4 Est. Patient 10:21:30 [employer] Capo Poe MD [facility] CPT-26588 Level 3 Est. Patient 17:08:51 [employer] Zoran Arzola MD [facility] CPT-86084 Level 4 Est. Patient 09:44:42 CDT [address] [facility] CPT-63707 Level 4 Est. Patient 10:39:29 CDT [address] Poe MD [facility] CPT-20366 Level 3 Est. Patient 17:45:23 CDT Zoran Arzola MD [facility] CPT-79645 Level 4 Est. Patient 08:50:44 CD[address] [facility] CPT-81464 Level 3 Est. Patient 10:39:51 [employer] Capo Poe MD [facility] CPT-67774 Level 4 Est. Patient 09:44:24 [employer] Capo Poe MD [facility] CPT-64475 Level 3 Est. Patient 14:48:42 [employer] Zoran Arzola MD [facility] CPT-51033 Level 4 Est. Patient 10:24:02 CDT [address] [facility] CPT-26029 Level 3 Est. Patient 15:42:[address] [facility] CPT-52737 Level 4 Est. Patient 13:34:15 CDT [address] [facility] CPT-07403 Level 3 Est. Patient 15:32:10 [employer] Zoran Arzola MD [facility] CPT-84088 Level 3 New Patient 17:17:19 [employer] Zoran Arzola MD [facility] CPT-30349 Level 4 Est. Patient 10:25:01 [employer] Capo Poe MD [facility] CPT-32110 Level 3 Est. Patient 10:10:42 CDT Zoran Arzola MD [facility] CPT-87929 Level 3 Est. Patient 22:30:02 CDT Zoran Arzola MD [facility] CPT-18138 Level 4 Est. Patient 09:54:20 CDT [address] [facility] CPT-74482 Level 3 Est. Patient 10:48:30 CD[address] [facility] CPT-09481 Level 3 Est. Patient 11:24:45 CD[address] [facility] CPT-91275 Level 3 Est. Patient 15:23:48 [employer] Capo Poe MD [facility] CPT-49266 Level 3 Est. Patient 15:10:03 [employer] Capo Poe MD [facility] CPT-32081 Level 3 Est. Patient 16:18:40 CDT Zoran Arzola MD [facility] Procedures Code Procedure Name Date Entry Date Standard Description CPT-65748 Hemoccult IFOBT - LAB USE ONLY 14:11:43 [employer] CPT-63599 TPSA - LAB USE ONLY 10:37:52 [employer] CPT-46319 TSH - LAB USE ONLY 10:37:51 [employer] CPT-67483 CMP - LAB USE ONLY 10:37:51 [employer] CPT-06783 CBC with Diff - LAB USE ONLY 10:37:51 [employer] CPT-37888 Venipuncture Draw Fee 10:37:51 [employer] CPT-000 Give Pneumovax 10:39:30 CDT CPT-34076 Venipuncture Draw Fee 09:32:34 CDT CPT-G0438 Initial Annual Wellness Exam 10:24:35 CDT CPT-89184 Venipuncture Draw Fee 09:46:29 CDT CPT-15280 Venipuncture Draw Fee 14:30:06 CDT CPT-17066 Venipuncture Draw Fee 10:58:22 CDT CPT-96517 Abd single AP View 08:32:00 CDT CPT-66435 Postop F/U Visit 21:13:08 CDT CPT-48722 Abd single AP View 15:50:24 CDT CPT-29172 Cystoscopy W/rem FB 15:21:28 CDT CPT-92494 Abd single AP View 14:06:45 CDT CPT-24034 Postop F/U Visit 09:48:32 CDT CPT-78134 Abd single AP View 13:58:26 CDT CPT-08511 Hip comp min 2V 10:27:18 [employer] CPT-78886 Urine Dip (Floor Use Only) 13:41:01 [employer] CPT-94730 Postop F/U Visit 11:17:48 CDT CPT-LR Lesion Removal 11:50:22 CDT CPT-OV Office Visit 11:50:22 CDT CPT-10319 Pneumovax 23 10:55:48 CDT CPT-24393 Administration single or combination vaccine inc oral 10 :55:48 CDT CPT-Cryo Cryotherapy 11:18:11 CDT CPT-OV Office Visit 11:18:11 CDT CPT-33753 LS spine AP and Lat 09:05:22 CDT CPT-67159 Bladder Scan 15:42:00 CDT CPT-66789 Cystoscopy 15:42:00 CDT CPT-OV Office Visit 16:37:19 [employer] CPT-18939 Bladder Scan 15:32:10 [employer] CPT-91112 Cystoscopy 15:32:10 [employer] CPT-83402 Abd single AP View 14:05:59 [employer] CPT-40168 Pill cam small bowel 09:48:39 [employer] CPT-52649 Urine Dip (Floor Use Only) 17:17:19 [employer] CPT-01419 Bladder Scan 17:17:19 [employer] CPT-OV Office Visit 11:50:26 [employer] CPT-11500 Bladder Scan 10:10:42 CDT CPT-14462 Venipuncture Draw Fee 09:14:04 CDT CPT-33116 Chest 2V Frontal and Lat 10:10:49 CDT CPT-54183 LS spine comp w obliq 11:50:11 CDT CPT-64454 Venipuncture Draw Fee 08:52:57 [employer] CPT-69571 Cystoscopy W/rem FB 18:37:28 CDT CPT-82734 Abd single AP View 16:18:40 CDT CPT-71009 Abd compl w upright 17:30:59 CDT
--- OUTSIDE RECORDS SUMMARY | 2016-11-22 17:35 | XMS REPORT | Clinical Summary ---
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 Active Simin [...] iron deficiency ICD-280.9 Inactive Capo Poe MD HEMATURIA ICD-599.70 Inactive [...] MD Elevated creatinine ICD-790.4 Clyde Poe MD RASH AND OTHER NONSPECIFIC SKIN ERUPTION ICD-782.1 Clyde Poe MD Near syncope ICD-780.2 Clyde Poe MD Medication List Medication Instructions Start Date Stop Date Generic Name NDC Status Provider Patient Instruction LEVAQUIN 500 MG TABS 1 daily for infection LEVOFLOXACIN 73378062857 Active Leanna Baker APRN Active AZITHROMYCIN 250 MG ORAL TABS 2 po qd x 1, then 1 po qd x 4 AZITHROMYCIN 10188039801 Active Capo Poe MD Active PREDNISONE 20 MG ORAL TABS 2 po qd x 5 days PREDNISONE 84789027238 No Longer Active Capo Poe MD Active CARAFATE 1 GM ORAL TABS 1 tid SUCRALFATE 15944133385 Active Capo Poe MD Active RANITIDINE HCL 150 MG ORAL TABS 1 bid RANITIDINE HCL 40918926576 Active Capo Poe MD Active MULTIVITAMINS CAPS Take one by mouth daily MULTIPLE VITAMIN 15225812911 No Longer Active Capo Poe MD Active LISINOPRIL 10 MG TABS 1 tablet by mouth daily LISINOPRIL 30541391915 No Longer Active Capo Poe MD Active EQL IRON SUPPLEMENT THERAPY 325 MG ORAL TABS 1 tab po twice daily FERROUS SULFATE 74997943358 Active Jasmin Arboledalas RMA Active D ORAL TABS 2000 iu weekly D ORAL TABS Active Capo Poe MD Active CITALOPRAM HYDROBROMIDE 20 MG TABS 1 tablet by mouth daily CITALOPRAM HYDROBROMIDE 62608788990 Active Capo Poe MD Active CLARITIN 5 MG ORAL CHEW 1 tab po q day LORATADINE 27174711058 Active Felisa Daphney RMA Active VIIBRYD STARTER PACK 10 & 20 MG ORAL KIT 1 po qd as directed 2015 VILAZODONE HCL 11269453951 No Longer Active Felisa Daphney RMA Active HYDROXYZINE HCL 25 MG TAB 1 po qHS PRN Insomnia HYDROXYZINE HCL 70352849608 Active Capo Poe MD Active LORTAB 7.5-325 MG ORAL TABS 1 po q 6 hr prn pain HYDROCODONE- ACETAMINOPHEN 60350495615 No Longer Active Capo Poe MD Active FLOMAX 0.4 MG CAPS Take one by mouth daily TAMSULOSIN HCL 11008231090 No Longer Active Capo Poe MD Active TRIAMCINOLONE ACETONIDE 0.1 % CREA Apply to affected areas TID for up to 2 weeks TRIAMCINOLONE ACETONIDE 18962555484 Active Capo Poe MD Active NICOTINE 14 MG/24HR TRANS PT24 Apply/Change q 24hr NICOTINE 82698494512 No Longer Active Capo Poe MD Active TRAMADOL HCL 50 MG TABS 1-2 tablets every 6 hours as needed for pain TRAMADOL HCL 99380808589 No Longer Active Capo Poe MD Active SERTRALINE HCL 100 MG ORAL TABS take 1 tab daily SERTRALINE HCL 69186344294 No Longer Active Capo Poe MD Active LISINOPRIL-HYDROCHLOROTHIAZIDE 10-12.5 MG TABS 0.5 tab by mouth daily LISINOPRIL-HYDROCHLOROTHIAZIDE 12667397800 No Longer Active Capo Poe MD Active OMEPRAZOLE 20 MG CPDR 1 tablet by mouth daily OMEPRAZOLE 41703680530 Active Capo Poe MD Active WELLBUTRIN SR 150 MG ORAL [id number] 1 po BID BUPROPION HCL 17458300857 No Longer Active Capo Poe MD Active MIRALAX PACK 1 po qd PRN Constipation POLYETHYLENE GLYCOL 3350 40548494173 Active Capo Poe MD Active DULERA 100-5 MCG/ACT AERO 2 puffs BID MOMETASONE FURO- FORMOTEROL FUM 21354669415 Active Capo Poe MD Active ZOLOFT 100 MG TABS 1 po daily SERTRALINE HCL 64850596312 No Longer Active Zoran Arzola MD Active FERROUS SULFATE 325 (65 FE) MG TABS 1 tablet by mouth daily FERROUS SULFATE 64402875415 No Longer Active Capo Poe MD Active HYDROCODONE-ACETAMINOPHEN 7.5-300 MG TABS take one every six hours HYDROCODONE-ACETAMINOPHEN 45462548307 No Longer Active Capo Poe MD Active TRIAMCINOLONE ACETONIDE 0.1 % OINT Apply to affected areas TID for up to 2 weeks TRIAMCINOLONE ACETONIDE 02428705998 No Longer Active Joe Vargas RN Active FERROUS SULFATE 325 (65 FE) MG TABS Take one by mouth daily FERROUS SULFATE 87923286618 No Longer Active Capo Poe MD Active TRIAMCINOLONE ACETONIDE 0.1 % OINT Apply to affected areas TID for up to 2 weeks TRIAMCINOLONE ACETONIDE 77463064183 No Longer Active Capo Poe MD Active ADULT ASPIRIN LOW STRENGTH 81 MG TBDP qd ASPIRIN 87808237559 Active Zoran Arzola MD Active ALEVE 220 MG TAB prn NAPROXEN SODIUM 29423295919 Active Capo Poe MD Active MACROBID 100 MG CAP 1 cap by mouth twice daily NITROFURANTOIN MONOHYD MACRO 49507843608 No Longer Active Dona Becker Active AZITHROMYCIN 250 MG TABS 2 po qd x 1 day, then 1 po qd x 4 days AZITHROMYCIN 40433065858 No Longer Active Capo Poe MD Active FISH OIL 500 MG CAPS by mouth twice a day OMEGA-3 FATTY ACIDS 41383396357 Active Capo Poe MD Active FLAXSEED OIL 1000 MG CAPS Take two by mouth daily FLAXSEED (LINSEED) 72888137705 Active Zoran Arzola MD Active RED YEAST RICE 600 MG CAPS Take two by mouth daily RED YEAST RICE EXTRACT 25955893759 Active Zoran Arzola MD Active ICAPS MV TABS 2 po daily MULTIPLE VITAMINS-MINERALS 19433388678 Active Jam Arnold DO Active MACROBID 100 MG CAP 1 cap by mouth twice daily MACROBID 100 MG CAP 0798103 NITROFURANTOIN MONOHYD MACRO Inactive FERROUS SULFATE 325 (65 FE) MG TABS Take one by mouth daily FERROUS SULFATE 325 (65 FE) MG TABS 689023 FERROUS SULFATE Inactive HYDROCODONE-ACETAMINOPHEN 7.5-300 MG TABS take one every six hours HYDROCODONE-ACETAMINOPHEN 7.5-300 MG TABS 045968 HYDROCODONE- ACETAMINOPHEN Inactive FERROUS SULFATE 325 (65 FE) MG TABS 1 tablet by mouth daily FERROUS SULFATE 325 (65 FE) MG TABS 974016 FERROUS SULFATE Inactive ZOLOFT 100 MG TABS 1 po daily ZOLOFT 100 MG TABS 192653 SERTRALINE HCL Inactive SERTRALINE HCL 100 MG ORAL TABS take 1 tab daily SERTRALINE HCL 100 MG ORAL TABS 845929 SERTRALINE HCL Inactive TRAMADOL HCL 50 MG TABS 1-2 tablets every 6 hours as needed for pain TRAMADOL HCL 50 MG TABS 636024 TRAMADOL HCL Inactive NICOTINE 14 MG/24HR TRANS PT24 Apply/Change q 24hr NICOTINE 14 MG/24HR TRANS PT24 676528 NICOTINE Inactive FLOMAX 0.4 MG CAPS Take one by mouth daily FLOMAX 0.4 MG CAPS 900881 TAMSULOSIN HCL Inactive LORTAB 7.5-325 MG ORAL TABS 1 po q 6 hr prn pain LORTAB 7.5- 325 MG ORAL TABS 674436 HYDROCODONE-ACETAMINOPHEN Inactive VIIBRYD STARTER PACK 10 & 20 MG ORAL KIT 1 po qd as directed 2015 VIIBRYD STARTER PACK 10 & 20 MG ORAL KIT VILAZODONE HCL Inactive LISINOPRIL 10 MG TABS 1 tablet by mouth daily LISINOPRIL 10 MG TABS 863422 LISINOPRIL Inactive MULTIVITAMINS CAPS Take one by mouth daily MULTIVITAMINS CAPS MULTIPLE VITAMIN Inactive AZITHROMYCIN 250 MG TABS 2 po qd x 1 day, then 1 po qd x 4 days AZITHROMYCIN 250 MG TABS 7389355 AZITHROMYCIN Inactive TRIAMCINOLONE ACETONIDE 0.1 % OINT Apply to affected areas TID for up to 2 weeks TRIAMCINOLONE ACETONIDE 0.1 % OINT 1515658 TRIAMCINOLONE ACETONIDE Inactive TRIAMCINOLONE ACETONIDE 0.1 % OINT Apply to affected areas TID for up to 2 weeks TRIAMCINOLONE ACETONIDE 0.1 % OINT 7936829 TRIAMCINOLONE ACETONIDE Inactive PREDNISONE 20 MG ORAL TABS 2 po qd x 5 days PREDNISONE 20 MG ORAL TABS 239213 PREDNISONE Inactive Advance Directives Directive Description Start [...] Panel - Chemistry sodium, serum 137 mmol/L 258-183 0956/07/26 carbon dioxide, venous blood 27.3 mmol/L 21.0-32.0 [...] ... - Chemistry sodium, serum 141 mmol/L 468-447 4278/01/27 carbon dioxide, venous blood 29.7 mmol/L 21.0-32.0 [...] % 11.0-15.0 platelet count 214 THOUSAND/UL 10*3/mm3 972-395 3892/03/31 mean platelet volume 8.4 fL 7.5-12.5 Encounters Code Encounter Date Provider Facility CPT-26758 Level 3 Est. Patient 11:31:49 CDT Leanna Baker APRN [facility] CPT-07586 Level 3 Est. Patient 09:44:06 CDT Capo Poe MD [facility] CPT-38035 Level 4 Est. Patient 09:26:11 SPEEDER HAND Capo Poe MD [facility] CPT-70567 Level 4 Est. Patient 08:53:08 CDT Capo Poe MD [facility] CPT-23332 Level 4 Est. Patient 10:22:57 CDT Capo Poe MD [facility] CPT-79913 Level 4 Est. Patient 13:44:30 CDT Capo Poe MD [facility] CPT-07417 Level 3 Est. Patient 14:59:32 SPEEDER HAND Capo Poe MD [facility] CPT-02620 Level 4 Est. Patient 10:46:15 SPEEDER HAND Capo Poe MD [facility] CPT-74930 Level 3 Est. Patient 11:00:53 CDT Capo Poe MD [facility] CPT-90991 Level 3 Est. Patient 09:39:35 CDT Capo Poe MD [facility] CPT-28035 Level 3 Est. Patient 09:27:01 CDT Capo Poe MD [facility] CPT-23237 Level 3 Est. Patient 18:37:08 CDT Zoran Arzola MD [facility] CPT-50751 Level 3 Est. Patient 15:00:28 CDT Capo Poe MD [facility] CPT-47114 Level 3 Est. Patient 08:20:19 CDT Zorna Arzola MD [facility] CPT-96609 Level 3 Est. Patient 09:22:21 CDT Capo Poe MD [facility] CPT-61057 Level 4 Est. Patient 10:21:30 SPEEDER HAND Capo Poe MD [facility] CPT-74338 Level 3 Est. Patient 17:08:51 SPEEDER HAND Zoran Arzola MD [facility] CPT-20996 Level 4 Est. Patient 09:44:42 CDT Capo Poe MD [facility] CPT-52007 Level 4 Est. Patient 10:39:29 CDT Capo Poe MD [facility] CPT-32055 Level 3 Est. Patient 17:45:23 CDT Zoran Arzola MD [facility] CPT-19314 Level 4 Est. Patient 08:50:44 CDT Capo Poe MD [facility] CPT-74606 Level 3 Est. Patient 10:39:51 SPEEDER HAND Capo Poe MD [facility] CPT-96539 Level 4 Est. Patient 09:44:24 SPEEDER HAND Capo Poe MD [facility] CPT-77454 Level 3 Est. Patient 14:48:42 SPEEDER HAND Zoran Arzola MD [facility] CPT-25906 Level 4 Est. Patient 10:24:02 CDT Capo Poe MD [facility] CPT-72085 Level 3 Est. Patient 15:42:00 CDT Maya WRIGHTP [facility] CPT-24512 Level 4 Est. Patient 13:34:15 CDT Capo Poe MD [facility] CPT-40034 Level 3 Est. Patient 15:32:10 SPEEDER HAND Zoran Arzola MD [facility] CPT-45317 Level 3 New Patient 17:17:19 SPEEDER HAND Zoran Arzola MD [facility] CPT-72229 Level 4 Est. Patient 10:25:01 SPEEDER HAND Caop Poe MD [facility] CPT-20923 Level 3 Est. Patient 10:10:42 CDT Zoran Arzola MD [facility] CPT-58202 Level 3 Est. Patient 22:30:02 CDT Zoran Arzola MD [facility] CPT-08969 Level 4 Est. Patient 09:54:20 CDT Capo Poe MD [facility] CPT-69187 Level 3 Est. Patient 10:48:30 CDT Capo Poe MD [facility] CPT-36709 Level 3 Est. Patient 11:24:45 CDT Capo Poe MD [facility] CPT-61433 Level 3 Est. Patient 15:23:48 SPEEDER HAND Capo Poe MD [facility] CPT-87131 Level 3 Est. Patient 15:10:03 SPEEDER HAND Capo Poe MD [facility] CPT-36384 Level 3 Est. Patient 16:18:40 CDT Zoran Arzola MD [facility] Procedures Code Procedure Name Date Entry Date Standard Description CPT-91844 Chest 2V Frontal and Lat - XRAY USE ONLY 11:51:24 CDT CPT-16135 Venipuncture Draw Fee 11:31:49 CDT CPT-52373 Hemoccult IFOBT - LAB USE ONLY 14:11:43 SPEEDER HAND CPT-73325 TPSA - LAB USE ONLY 10:37:52 SPEEDER HAND CPT-24601 TSH - LAB USE ONLY 10:37:51 SPEEDER HAND CPT-94090 CMP - LAB USE ONLY 10:37:51 SPEEDER HAND CPT-50118 CBC with Diff - LAB USE ONLY 10:37:51 SPEEDER HAND CPT-72743 Venipuncture Draw Fee 10:37:51 SPEEDER HAND CPT-000 Give Pneumovax 10:39:30 CDT CPT-04548 Venipuncture Draw Fee 09:32:34 CDT CPT-G0438 Initial Annual Wellness Exam 10:24:35 CDT CPT-67634 Venipuncture Draw Fee 09:46:29 CDT CPT-00217 Venipuncture Draw Fee 14:30:06 CDT CPT-10039 Venipuncture Draw Fee 10:58:22 CDT CPT-97978 Abd single AP View 08:32:00 CDT CPT-04592 Postop F/U Visit 21:13:08 CDT CPT-38517 Abd single AP View 15:50:24 CDT CPT-72831 Cystoscopy W/rem FB 15:21:28 CDT CPT-94057 Abd single AP View 14:06:45 CDT CPT-91575 Postop F/U Visit 09:48:32 CDT CPT-22408 Abd single AP View 13:58:26 CDT CPT-55385 Hip comp min 2V 10:27:18 SPEEDER HAND CPT-61998 Urine Dip (Floor Use Only) 13:41:01 SPEEDER HAND CPT-73440 Postop F/U Visit 11:17:48 CDT CPT-LR Lesion Removal 11:50:22 CDT CPT-OV Office Visit 11:50:22 CDT CPT-89220 Pneumovax 23 10:55:48 CDT CPT-59988 Administration single or combination vaccine inc oral 10 :55:48 CDT CPT-Cryo Cryotherapy 11:18:11 CDT CPT-OV Office Visit 11:18:11 CDT CPT-64030 LS spine AP and Lat 09:05:22 CDT CPT-70381 Bladder Scan 15:42:00 CDT CPT-26226 Cystoscopy 15:42:00 CDT CPT-OV Office Visit 16:37:19 SPEEDER HAND CPT-52145 Bladder Scan 15:32:10 SPEEDER HAND CPT-47284 Cystoscopy 15:32:10 SPEEDER HAND CPT-25166 Abd single AP View 14:05:59 SPEEDER HAND CPT-25127 Pill cam small bowel 09:48:39 SPEEDER HAND CPT-08907 Urine Dip (Floor Use Only) 17:17:19 SPEEDER HAND CPT-77017 Bladder Scan 17:17:19 SPEEDER HAND CPT-OV Office Visit 11:50:26 SPEEDER HAND CPT-68416 Bladder Scan 10:10:42 CDT CPT-24672 Venipuncture Draw Fee 09:14:04 CDT CPT-35814 Chest 2V Frontal and Lat 10:10:49 CDT CPT-79907 LS spine comp w obliq 11:50:11 CDT CPT-88483 Venipuncture Draw Fee 08:52:57 SPEEDER HAND CPT-05976 Cystoscopy W/rem FB 18:37:28 CDT CPT-89943 Abd single AP View 16:18:40 CDT CPT-46008 Abd compl w upright 17:30:59 CDT
[2016-11-22 18:10] VITALS: BP 150/78
--- NOTE | 2016-11-22 18:27 | Operative Report ---
Operative Report Date of Procedure/Surgery Nov 22, 2016 Surgeon (s) LAUREN PAL MD Station Installation Supervisor (s): not applicable Post-Operative Diagnosis same Procedure Performed ultrasound localization of right internal jugular vein. Intraoperative fluoroscopy. 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 To facilitate this, placing an Vduwey-z-Nqpq was felt to be reasonable. Informed consent was obtained after reviewing the operative details and complications of postoperative hematoma, infection and malfunction of the catheter, requiring replacement. Description of the procedure: He was placed supine on the operative table and our CITY TREASURER administered sedation, monitoring his vital signs. Ancef was administered intravenously as prophylaxis against wound infection. His upper chest and neck were prepared and draped in the usual sterile manner. Initially, I attempted to place the Iiaytr-p-Fyyg using a left subclavian approach. Due to arterial puncture, it was abandoned at and I proceeded to the right side, under ultrasound guidance. Internal jugular vein on the right side was localized using a 10 MHz ultrasound probe floppy guidewire introduced into the heart, under fluoroscopy. A subcutaneous pocket was created over the infra-clinical fossa and the Meir catheter brought into the neck, in a retrograde fashion. It was then advanced into the heart and under fluoroscopy and subsequently pulled back to the superior vena cava. It was connected to the Ryrcbi-k-Qohj, that had been primed with heparinized saline. I was able to aspirate and flush the system without any difficulty. The port was then secured to the pectoralis muscle using 2-0 Prolene sutures. Incisions were closed using 3-0 Vicryl for the subcutaneous tissue and 4-0 Vicryl for skin, in a subcuticular fashion. Local anesthesia was achieved using 0.5 percent Marcaine with epinephrine He tolerated the procedure well and was taken back to the nursing area in a stable condition. Findings of the Procedure C operative report Allergies and Home Medications Allergies Coded Allergies: Yfffxxj-Ttx-Mxm Reductase Inhibitor (Verified Allergy, Unknown, 11/22/16) morphine (Verified Allergy, Unknown, 11/22/16) nitrofurantoin (Verified Allergy, Unknown, 11/22/16) Home Medications Hydrocodone/Acetaminophen 473 Ml Solution, 15 ML PO Q4H PRN for PAIN-MILD TO MODERATE, #480 Prescribed by: LAUREN PAL on 11/22/16 1610 Hydrocodone/Acetaminophen 1 Each Tablet, 1 EACH PO Q8H PRN for PAIN, #1 Prescribed by: CELESTE JENKINS on 11/22/16 1651 Pantoprazole Sodium 40 Mg Tablet.dr, 40 MG PO DAILY for 30 Days Prescribed by: CELESTE JENKINS on 11/22/16 1643 Vit A/C/E AC/Znox/Cupric Oxide 1 Each Tablet, 1 EACH PO DAILY, #30 Prescribed by: CELESTE JENKINS on 11/22/16 1643 LAUREN PAL MD Nov 22, 2016 18:27
[2016-11-22 18:40] VITALS: BP 146/84
[2016-11-22 19:05] VITALS: BP 146/84
--- NOTE | 2016-11-22 19:19 | Diagnostic Imaging Report ---
INDICATION: Groshong catheter placement. FINDINGS: Portable upright view of the chest demonstrates a Groshong catheter with its tip near the atrial-caval junction. Heart size is normal. Diffuse interstitial lung disease is present. There are no pleural effusions. IMPRESSION: 1. Groshong catheter in good position. 2. There is diffuse interstitial lung disease. Dictated by: Dictated on workstation # [id number]
--- NOTE | 2016-11-22 20:41 | Diagnostic Imaging Report ---
INDICATION: Internal Groshong placement. FINDINGS: 2 minutes and 36 seconds of fluoroscopy time was provided for the patient's catheter placement. A spot view of the chest demonstrates the catheter tip near the cavoatrial junction. IMPRESSION: Intraoperative fluoroscopy was provided for the patient's catheter placement. Dictated by: Dictated on workstation # [id number]
== END 2016-11-22 19:05 | disposition home or self-care (01) ==
LOC: SDC 14:58
PROVIDERS: ATTEND Surgery
DX: C16.0 Malignant neoplasm of cardia (principal); C79.9 Secondary malignant neoplasm of unspecified site; J44.9 Chronic obstructive pulmonary disease, unspecified; F17.210 Nicotine dependence, cigarettes, uncomplicated; K21.9 Gastro-esophageal reflux disease without esophagitis; Z79.899 Other long term (current) drug therapy
CPT/HCPCS: 71010; 87081

== ENCOUNTER 2017-01-09 10:22 | Outpatient (RCR) | payer MEDICARE ==
[2016-11-21 13:26] LABS: BASOPHILS # (AUTO) 0.1 10^3/uL (0.0-0.1); BASOPHILS % (AUTO) 1 % (0-10); EOSINOPHILS # (AUTO) 0.2 10^3/uL (0.0-0.3); EOSINOPHILS % (AUTO) 2 % (0-10); HEMATOCRIT 40 % (40-54); LYMPHOCYTES # (AUTO) 0.8 X 10^3 (1.0-4.0); LYMPHOCYTES % (AUTO) 8 % (12-44); MEAN CORPUSCULAR HEMOGLOBIN 29 PG (25-34); MEAN CORPUSCULAR HGB CONC 32 G/DL (32-36); MEAN CORPUSCULAR VOLUME 91 FL (80-99); MEAN PLATELET VOLUME 9.5 FL (7.4-10.4); MONOCYTES # (AUTO) 0.6 X 10^3 (0.0-1.0); MONOCYTES % (AUTO) 6 % (0-12); NEUTROPHILS # (AUTO) 8.5 X 10^3 (1.8-7.8); NEUTROPHILS % (AUTO) 84 % (42-75); PLATELET COUNT 275 10^3/uL (130-400); RED BLOOD COUNT 4.43 10^6/uL (4.35-5.85); RED CELL DISTRIBUTION WIDTH 14.6 % (10.0-14.5)
[2016-11-21 13:48] LABS: ALBUMIN 3.9 GM/DL (3.2-4.5); BILIRUBIN,TOTAL 2.8 MG/DL (0.1-1.0); CALCIUM 9.6 MG/DL (8.5-10.1); CREATININE SERUM 1.2 MG/DL (0.60-1.30); POTASSIUM 4.2 MMOL/L (3.6-5.0); TOTAL PROTEIN 7.4 GM/DL (6.4-8.2)
[2016-11-27 13:44] LABS: BASOPHILS % (AUTO) 0 % (0-10); EOSINOPHILS # (AUTO) 0.5 10^3/uL (0.0-0.3); EOSINOPHILS % (AUTO) 5 % (0-10); HEMATOCRIT 37 % (40-54); HEMOGLOBIN 12.1 G/DL (13.3-17.7); LYMPHOCYTES # (AUTO) 0.4 X 10^3 (1.0-4.0); LYMPHOCYTES % (AUTO) 4 % (12-44); MEAN CORPUSCULAR HEMOGLOBIN 30 PG (25-34); MEAN CORPUSCULAR HGB CONC 33 G/DL (32-36); MEAN CORPUSCULAR VOLUME 91 FL (80-99); MONOCYTES # (AUTO) 0.6 X 10^3 (0.0-1.0); MONOCYTES % (AUTO) 6 % (0-12); NEUTROPHILS # (AUTO) 8.6 X 10^3 (1.8-7.8); NEUTROPHILS % (AUTO) 85 % (42-75); PLATELET COUNT 245 10^3/uL (130-400); RED BLOOD COUNT 4.08 10^6/uL (4.35-5.85); RED CELL DISTRIBUTION WIDTH 14.9 % (10.0-14.5); WHITE BLOOD COUNT 10.1 10^3/uL (4.3-11.0)
[2016-11-27 14:02] LABS: ALANINE AMINOTRANSFERASE 289 U/L (0-55); ALBUMIN 3.5 GM/DL (3.2-4.5); ALKALINE PHOSPHATASE 283 U/L (40-136); BILIRUBIN,TOTAL 5.4 MG/DL (0.1-1.0); BUN/CREATININE RATIO 25; CALCIUM 9.2 MG/DL (8.5-10.1); CARBON DIOXIDE 25 MMOL/L (21-32); CHLORIDE 100 MMOL/L (98-107); CREATININE SERUM 1.09 MG/DL (0.60-1.30); GFR ESTIMATED > 60; GLUCOSE 103 MG/DL (70-105); POTASSIUM 4.1 MMOL/L (3.6-5.0); SODIUM 135 MMOL/L (135-145); TOTAL PROTEIN 6.5 GM/DL (6.4-8.2)
[2016-12-18 09:19] LABS: BASOPHILS % (AUTO) 0 % (0-10); EOSINOPHILS # (AUTO) 0.1 10^3/uL (0.0-0.3); EOSINOPHILS % (AUTO) 0 % (0-10); HEMATOCRIT 34 % (40-54); HEMOGLOBIN 11.4 G/DL (13.3-17.7); LYMPHOCYTES # (AUTO) 0.4 X 10^3 (1.0-4.0); LYMPHOCYTES % (AUTO) 4 % (12-44); MEAN CORPUSCULAR HEMOGLOBIN 30 PG (25-34); MEAN CORPUSCULAR HGB CONC 33 G/DL (32-36); MEAN CORPUSCULAR VOLUME 91 FL (80-99); MEAN PLATELET VOLUME 8.7 FL (7.4-10.4); MONOCYTES # (AUTO) 0.5 X 10^3 (0.0-1.0); MONOCYTES % (AUTO) 4 % (0-12); NEUTROPHILS # (AUTO) 10.2 X 10^3 (1.8-7.8); NEUTROPHILS % (AUTO) 92 % (42-75); PLATELET COUNT 240 10^3/uL (130-400); RED BLOOD COUNT 3.78 10^6/uL (4.35-5.85); RED CELL DISTRIBUTION WIDTH 16.2 % (10.0-14.5); WHITE BLOOD COUNT 11.2 10^3/uL (4.3-11.0)
[2016-12-18 09:44] LABS: ALANINE AMINOTRANSFERASE 62 U/L (0-55); ALBUMIN 2.7 GM/DL (3.2-4.5); ALKALINE PHOSPHATASE 153 U/L (40-136); BILIRUBIN,TOTAL 1.6 MG/DL (0.1-1.0); BUN/CREATININE RATIO 32; CALCIUM 8.3 MG/DL (8.5-10.1); CARBON DIOXIDE 23 MMOL/L (21-32); CHLORIDE 104 MMOL/L (98-107); CREATININE SERUM 0.81 MG/DL (0.60-1.30); GFR ESTIMATED > 60; GLUCOSE 156 MG/DL (70-105); POTASSIUM 3.7 MMOL/L (3.6-5.0); SODIUM 135 MMOL/L (135-145); TOTAL PROTEIN 5.3 GM/DL (6.4-8.2)
[2016-12-26 10:09] LABS: BASOPHILS % (AUTO) 0 % (0-10); EOSINOPHILS # (AUTO) 0.1 10^3/uL (0.0-0.3); EOSINOPHILS % (AUTO) 1 % (0-10); HEMATOCRIT 33 % (40-54); LYMPHOCYTES # (AUTO) 0.4 X 10^3 (1.0-4.0); LYMPHOCYTES % (AUTO) 4 % (12-44); MEAN CORPUSCULAR HEMOGLOBIN 31 PG (25-34); MEAN CORPUSCULAR HGB CONC 34 G/DL (32-36); MEAN CORPUSCULAR VOLUME 91 FL (80-99); MEAN PLATELET VOLUME 8.9 FL (7.4-10.4); MONOCYTES # (AUTO) 0.5 X 10^3 (0.0-1.0); MONOCYTES % (AUTO) 5 % (0-12); NEUTROPHILS # (AUTO) 10.7 X 10^3 (1.8-7.8); NEUTROPHILS % (AUTO) 91 % (42-75); PLATELET COUNT 192 10^3/uL (130-400); RED CELL DISTRIBUTION WIDTH 16.3 % (10.0-14.5); WHITE BLOOD COUNT 11.8 10^3/uL (4.3-11.0)
[2016-12-26 10:28] LABS: ALBUMIN 2.7 GM/DL (3.2-4.5); BILIRUBIN,TOTAL 1.1 MG/DL (0.1-1.0); CALCIUM 8.3 MG/DL (8.5-10.1); CREATININE SERUM 1.29 MG/DL (0.60-1.30); TOTAL PROTEIN 5.1 GM/DL (6.4-8.2)
[2017-01-02 11:02] LABS: BASOPHILS % (AUTO) 0 % (0-10); EOSINOPHILS % (AUTO) 0 % (0-10); HEMATOCRIT 32 % (40-54); HEMOGLOBIN 10.5 G/DL (13.3-17.7); LYMPHOCYTES # (AUTO) 0.3 X 10^3 (1.0-4.0); LYMPHOCYTES % (AUTO) 2 % (12-44); MEAN CORPUSCULAR HEMOGLOBIN 30 PG (25-34); MEAN CORPUSCULAR HGB CONC 33 G/DL (32-36); MEAN CORPUSCULAR VOLUME 91 FL (80-99); MEAN PLATELET VOLUME 9.2 FL (7.4-10.4); MONOCYTES # (AUTO) 0.1 X 10^3 (0.0-1.0); MONOCYTES % (AUTO) 1 % (0-12); NEUTROPHILS # (AUTO) 13.7 X 10^3 (1.8-7.8); NEUTROPHILS % (AUTO) 98 % (42-75); PLATELET COUNT 230 10^3/uL (130-400); RED CELL DISTRIBUTION WIDTH 16.5 % (10.0-14.5); WHITE BLOOD COUNT 14.1 10^3/uL (4.3-11.0)
[2017-01-02 11:16] LABS: ALBUMIN 2.7 GM/DL (3.2-4.5); BILIRUBIN,TOTAL 0.8 MG/DL (0.1-1.0); CALCIUM 8.4 MG/DL (8.5-10.1); CREATININE SERUM 1.5 MG/DL (0.60-1.30); POTASSIUM 4.9 MMOL/L (3.6-5.0); TOTAL PROTEIN 5.5 GM/DL (6.4-8.2)
[~2017-01-09] VITALS: Ht 160 cm; Wt 56.2 kg
[~2017-01-09 10:22] MED LIST: ACHD5005 PO; CARBOPLATIN 170 MG in D5W 50 ML IV(CANCER CTR) 50 ML IV SCH; CARBOPLATIN IV SCH; D5W IV SCH; FAMOTIDINE 20MG/2ML IV (CANCER CTR) IV SCH; HYDR473S50 PO; NS IV 1000 ML (CANCER CTR) 1,000 ML IV SCH; NS IV 500 ML (CANCER CENTER) 500 ML ONE; NS IV 500 ML (CANCER CENTER) IV SCH; NS IV SCH; PACLITAXEL 110 MG in NS (IVPB) CANCER CENTER 250 ML IV SCH; PACLITAXEL IV SCH; PALONOSETRON 0.25 MG, DEXAMETHASONE 10 MG/NS 50 ML IVPB IV PRN; PANT40TA3 PO; VIT-8 PO; diphenhydrAMINE 25 MG TAB (BENADRYL) CANCER CENTER PO SCH; diphenhydrAMINE 50 MG/ML INJ (CANCER CENTER) IV ONE; diphenhydrAMINE 50 MG/ML INJ (CANCER CENTER) ONE
[2017-01-09 10:54] LABS: BASOPHILS % (AUTO) 0 % (0-10); EOSINOPHILS % (AUTO) 0 % (0-10); HEMATOCRIT 27 % (40-54); HEMOGLOBIN 9.3 G/DL (13.3-17.7); LYMPHOCYTES # (AUTO) 0.2 X 10^3 (1.0-4.0); LYMPHOCYTES % (AUTO) 2 % (12-44); MEAN CORPUSCULAR HEMOGLOBIN 31 PG (25-34); MEAN CORPUSCULAR HGB CONC 34 G/DL (32-36); MEAN CORPUSCULAR VOLUME 91 FL (80-99); MEAN PLATELET VOLUME 9.6 FL (7.4-10.4); MONOCYTES # (AUTO) 0.1 X 10^3 (0.0-1.0); MONOCYTES % (AUTO) 1 % (0-12); NEUTROPHILS # (AUTO) 8.1 X 10^3 (1.8-7.8); NEUTROPHILS % (AUTO) 96 % (42-75); PLATELET COUNT 164 10^3/uL (130-400); RED BLOOD COUNT 2.98 10^6/uL (4.35-5.85); RED CELL DISTRIBUTION WIDTH 16.5 % (10.0-14.5); WHITE BLOOD COUNT 8.4 10^3/uL (4.3-11.0)
[2017-01-09 11:21] LABS: CALCIUM 8.1 MG/DL (8.5-10.1); CREATININE SERUM 1.58 MG/DL (0.60-1.30); MAGNESIUM 1.8 MG/DL (1.8-2.4); POTASSIUM 5.1 MMOL/L (3.6-5.0)
== END 2017-02-19 | disposition home or self-care (01) ==
LOC: ONC 10:22
PROVIDERS: ATTEND Internal Medicine Hematology & Oncology
DX: Z51.11 Encounter for antineoplastic chemotherapy (principal); C16.0 Malignant neoplasm of cardia; C79.89 Secondary malignant neoplasm of other specified sites; K76.9 Liver disease, unspecified; R91.8 Other nonspecific abnormal finding of lung field; K44.9 Diaphragmatic hernia without obstruction or gangrene; N42.9 Disorder of prostate, unspecified
CPT/HCPCS: 36415; 36591; 80048; 80053; 82378; 83735; 84153; 85025; 96375; 96413; 96417; 99214